=== PATIENT | female | born 1950 | race Caucasian/White ===

== ENCOUNTER 2022-03-22 11:00 | Outpatient (RCR) | payer MEDICARE, BC, SELFPAY ==
--- NOTE | 2021-11-30 17:08 | PT.OPEX ---
PT [place] Outpatient Eval PT [facility] Outpatient Eval Start: 11/30/21 12:18 Freq: Status: Active Protocol: Document 11/30/21 12:21 WILEY (Rec: 11/30/21 17:05 WILEY [id number]) E-Signed By Christina Ritchie, PT Physical Therapy Outpatient Evaluation Insurance Information Recert Due Date 02/28/22 Insurance Name Medicare B,Other; See Comments Insurance Information/Comments Blue [employer] [place] Medical Diagnosis Spinal stenosis, right thigh radiculitis Treating Diagnosis Low back pain, right sided radiculopathy, impaired gait, impaired balance, proximal hip and core weakness, limited lumbar mobility Referring Lopez Cortes Subjective Subjective Patient presents to PT with primary complaint of low back pain with associated R sided radiculopathy that began about 2 years ago with insidious onset. Initially felt pain in low back and lateral R thigh that was debilitating enough to where she was having difficulty walking. She was seen by PT at the time which significantly helped to alleviate R leg pain. Pain has since returned and has been seen by Dr. Garcia who prescribed 2 rounds of steroid medication. Both times have helped but still somewhat painful in low back and posterior/lateral R thigh. She also is taking gabapentin 3 x /day and tylenol prn every 4 hours. She occasionally uses walking sticks when she feels her balance is off. Currently most painful with standing and walking, most alleviating with sitting and sleeping. She has fallen 2 times in the past month and unsure of mechanisms of falls as they happen very quickly. The last fall she did hit right side of her face however did not lose consciousness. She was evaluated by her friend that is a nurse following this incident. She has since been recovering well from this and is very cautious when moving around/using her walking sticks. Currently denies head pain/headache, blurry or loss of vision. Goals are to improve low back and associated R LE pain as well as improve overall strength and balance to improve walking . PMH: a-fib treated with ablation Apr 2021, hypertension, skin cancer, arthritis, osteoporosis, anxiety Pain Comments Today: Date of Last Physician Visit 11/23/21 Current Work Status Retired Precautions Therapy Limitations/Systems Review Not Limited Objective Other/Pertinent Objective Lumbar ROM: -Flx: mid uriostegui, very slow to perform not because of pain but balance, no observable loss of balance todya -Ext: 15% -R Rot: 75% no pain -L Rot: 75% no pain -R Sidebend: 3/4 thigh, pinch/ pain with R SB -L Sidebend: 3/4 thigh no pain Standing posture: resting on Y ligaments with posterior pelvic tilt Sitting posture: posterior pelvic tilt Gait: significant R Trendelenburg, mid foot strike B, neutral hip extension B, very wide NAYAN with turning, slow van SL balance: unable to perform without UE support, R>L Trendelenburg stance TA activation: fair hooklying, poor sitting LE Strength (R/L): -Hip Abd: R: 3/5, L: 3+/5 -Hip Ext: R: 3+/5, L: 4-/5 -Hip Flx: R: 4-/5, L: 4-/5 Hip ROM WNL B Flexion positioning/knee to chest stretching relieving Functional Test Performed & Score Oswestry: 17, 34% Assessment Assessment/Impression Patient is a 71 year old female presenting to physical therapy for evaluation and treatment of low back pain with right sided radiculopathy with referring diagnosis of spinal stenosis. Patient presents with Low back pain, right sided radiculopathy, impaired gait, impaired balance, proximal hip and core weakness, limited lumbar mobility, limited terminal hip extension. These impairments are limiting the patients ability to walk on even and uneven ground, lift household objects, balance, stand for extended periods. Patient appears to demonstrate flexion based preference Patient appears motivated to participate in PT and presents with good prognosis to improve mobility, strength, proprioception and return to functional activities with skilled physical therapy intervention. Primary Functional Limitations walk on even and uneven ground , lift household objects, balance, stand for extended periods Plan of Care Rehabilitation Potential Good Physical Therapy Goals In 4 weeks (12/28/21) Patient will demonstrate WFL lumbar AROM with <2/10 pain in all directions in order to demonstrate improved functional mobility. Patient will walk for 20 min, reporting pain < 2/10 in order to ambulate in home and in community. Pt will be able to stand for 15 min with <2/10 pain in order to cook In 10 weeks (02/08/22) Pt will exhibit 20% improvement on the Modified Oswestry Outcome measure to demonstrate functional improvement and progress towards goals. Patient will walk for 40 min, reporting pain < 2/10 in order to ambulate in home and in community. 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
--- NOTE | 2022-01-17 11:55 | PT.OPDNX ---
PT [place] Outpatient Daily Note PT [facility] Outpatient Daily Note Start: 11/30/21 12:18 Freq: Status: Active Protocol: Document 01/17/22 07:47 WILEY (Rec: 01/17/22 07:47 WILEY [id number]) E-signed By Christina Ritchie, PT PT OP Daily Progress Note Visit Information Note Type Recert/Progress Note Visit Number [phone] Insurance Authorized Visits - Physician Authorized Visits 2 session for 6 weeks with additional 1 session per week for 4-6 weeks Insurance Information Recert Due Date 03/21/22 Insurance Name Medicare B,Other; See Comments Insurance Information/Comments [employer] [place] Medical Diagnosis Spinal stenosis, right thigh radiculitis Treating Diagnosis Low back pain, right sided radiculopathy, impaired gait, impaired balance, proximal hip and core weakness, limited lumbar mobility Referring MD Garcia, Lopez Graham had follow up with Dr. Garcia today which went very well and pleased with overall recovery. She feels that she is about 40% better with more stability on her feet and being able to stand for more extended periods of time ( about 30 minutes at the most). She was able to walk 6 blocks with her dogs without use of walking stick. Dr. Garcia recommended patient continue with PT for an additional 1x/ wk for 4-6 weeks beyond what she currently has scheduled. She also continues to be consistent with walking and water aerobics classes. Pain Comments Today: 2-07/29 Objective Other/Pertinent Objective 01/17/22: LE Strength (R/L): -Hip Abd: R: 4-/5, L: 4/5 Tandem balance: -6 sec R LE fwd -13 sec L LE fwd SL balance: unable without UE support Gait with head turns: slower van and more shuffled pattern however no use of UE or LOB noted Gait with change in speed: more difficult to walk slowly however crossover gait noted with fast pace 01/06/22: Gait: reduction of trendelenburg on R LE Tandem balance: -18 sec R LE fwd -13 sec L LE fwd SL balance: unable without UE support IE Lumbar ROM: -Flx: mid uriostegui, very slow to perform not because of pain but balance, no observable loss of balance todya -Ext: 15% -R Rot: 75% no pain -L Rot: 75% no pain -R Sidebend: 3/4 thigh, pinch/ pain with R SB -L Sidebend: 3/4 thigh no pain Standing posture: resting on Y ligaments with posterior pelvic tilt Sitting posture: posterior pelvic tilt Gait: significant R Trendelenburg, mid foot strike B, neutral hip extension B, very wide NAYAN with turning, slow van SL balance: unable to perform without UE support, R>L Trendelenburg stance TA activation: fair hooklying, poor sitting LE Strength (R/L): -Hip Abd: R: 3/5, L: 3+/5 -Hip Ext: R: 3+/5, L: 4-/5 -Hip Flx: R: 4-/5, L: 4-/5 Hip ROM WNL B Flexion positioning/knee to chest stretching relieving Functional Test Performed & Score Oswestry IE: 17, 34% Oswestry 01/17: 13, 26% Patient Instructed in Risks/Benefits Yes: N/A Therapeutic Exercise Therapeutic Exercise Minutes (minutes) 26 Therapeutic Exercise: To Restore Sidelying hip abduction x10 B Functional Status Bridge 2x10 Sit to stand w/yellow TB above knees Therapist handheld assist: lateral stepping w/yellow TB, minimal assistance required today ll bars: tandem balance Marches w/opp hand opp knee taps Review of objective measures, progress to date and remaining impairments Gait & Stair Training Gait Training/Stairs Minutes (minutes) 15 Gait & Stair Training Comments ll bars: fwd walking with head turns, bwd walking with cuing on fwd lean to prevent retro LOB Gait training x450' without AD : -head turns R/L -head turns up/down -change in speed Cuing required to brass pickler feet during change in speed, heel to toe patterning and to prevent crossover gait patterning Patient fatigued by end however recovers with <2 min seated rest break Treatment Minutes Timed Code Treatment Minutes 41 Total Treatment Time 41 Billing Units Gait Training/Stairs Units 1 Therapeutic Exercise Units 2 Assessment/Impression Assessment/Impression Patient reporting significant improvement in function with report of about 40% improvement and improvement on Oswestry from 17 to 13 since initiating PT. She has been able to wean off walking stick , stand for about 30 minutes, and walk up to 6 blocks prior to seated rest break. She does not demonstrate significant gait deviations with level walking as she did initially however still finding dynamic gait challenges to be difficult such as head turns and change in speed. She continues to remain appropriate for continued skilled PT to improve pain, balance and reduce fall risk as well as continue to improve functionally on Oswestry. Plan of Care Physical Therapy Goals In 4 weeks (12/28/21) Patient will demonstrate WFL lumbar AROM with <2/10 pain in all directions in order to demonstrate improved functional mobility. MET Patient will walk for 20 min, reporting pain < 2/10 in order to ambulate in home and in community. MET Pt will be able to stand for 15 min with <2/10 pain in order to cook MET In 10 weeks (02/08/22): goals updated to be met by 03/21/22 Pt will exhibit 20% improvement on the Modified Oswestry Outcome measure to demonstrate functional improvement and progress towards goals. (8% 01/17/22) Patient will walk for 40 min, reporting pain < 2/10 in order to ambulate in home and in community. 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 Static and dynamic balance deficits remain patients main impairments with testing today and remains appropriate for continued skilled PT for additional 1x/wk for 4-6 more weeks in order to reduce risk for falling Rehabilitation Potential Good Continued Plan of Care and Interventions Therapeutic exercise, neuromuscular re-education, gait training, therapeutic activity, manual therapy prn Provider Signature Shows Agreement With POC & Medical Necessity Physician Comment/Change Comment or Changes Physician NPI Number #
== END 2022-03-23 08:31 | disposition home or self-care (01) ==
PROVIDERS: PCP Family Medicine; Visit Provider Family Medicine
DX: M54.50 Low back pain, unspecified (principal); Z51.89 Encounter for other specified aftercare
CPT/HCPCS: 97032; 97110; 97112; 97116; 97140; 97162

== ENCOUNTER 2022-12-26 15:00 | Outpatient (RCR) | payer MEDICARE, BC, SELFPAY | END 2023-04-25 23:59 | disposition home or self-care (01) | PROVIDERS: PCP Family Medicine; Visit Provider Neurological Surgery | DX: M48.061 Spinal stenosis, lumbar region without neurogenic claudication (principal); M25.562 Pain in left knee; S82.102A Unspecified fracture of upper end of left tibia, initial encounter for closed fracture; R26.89 Other abnormalities of gait and mobility; R53.1 Weakness; Z51.89 Encounter for other specified aftercare | CPT/HCPCS: 97110; 97162 ==

== ENCOUNTER 2023-03-20 11:30 | Outpatient (RCR) | payer MEDICARE, BC, SELFPAY ==
--- NOTE | 2023-01-27 16:55 | PT.OPEX ---
PT [place] Outpatient Eval PT [facility] Outpatient Eval Start: 01/27/23 16:33 Freq: Status: Active Protocol: Document 01/27/23 16:33 LUIS (Rec: 01/27/23 16:52 LUIS [id number]) E-signed By Kiana Chacon DPT Physical Therapy Outpatient Evaluation Insurance Information Recert Due Date 04/27/23 Insurance Name [employer] Medical Diagnosis L knee pain L tibial plateau fx Treating Diagnosis L knee pain, core/hip/glut/LE weakness, limping/antalgic gait Subjective Subjective Patient reports falling on at the store. She was able to get back up and continue her activities but reports having L knee pain. She had a family wedding that weekend and a vacation the next week so she continued with her events but reports ongoing L knee pain and some difficulty walking. She had follow up with ortho PA on 12/26 and xrays showed a tibial plateau fx. Patient reports using crutches for a couple of days and then doing better getting around at home without an AD. She continued to use the crutches for a bit when going out. She followed up with ortho PA 01/11 and reports decreased pain, improved mobility/gait. She is now able to walk without an AD, minimal pain. Pain range 0-2/ 10. She reports xrays 01/11 showed bone healing in the area of the tibial plateau fx and L knee OA. Patient states PA talked to her about possibly needing TKA at some point. Patient states she can continue with her normal activities as tolerated. She does not want to pursue a TKA at this time as her knee is feeling better, she recently has lumbar spinal fusion ( earlier this year), and she is having some cardiac testing with upcoming appts for additional cardiac workup. She is using tylenol as needed for pain. Hasn't been needing ice/heat. Sleep has been ok. She is doing some of her HEP from prior back PT and planning to get back into the pool exercises next week. Date of Last Physician Visit 01/11/23 Current Work Status Retired Precautions Treatment Precautions/Contraindications hx lumbar spinal fusion, osteoporosis, OA, HTN, heart condition, depression Assessment Assessment/Impression Patient is a 72 year old female with L knee pain, core/ hip/glut/LE weakness, limping/ antalgic gait. She reports having a fall 7/27 with L tibial plateau fx. Patient had follow up with ortho PA with xrays that showed healing. She denies any current restrictions, activity as tolerated. Patient reports xrays showed L knee OA and she may need a TKA in the future. Pain range 0-2/10. Patient with core/hip/glut/LE weakness with hx of lumbar spinal fusion earlier this year. She is doing some of her HEP from prior PT for her back. She is amb without an AD. Gait is slow, limping secondary to weakness. Patient reports being able to amb now without crutches or her walking stick so gait is improving. R knee ROM 0-0-140 degrees. L knee ROM 0-0-135 degrees. Patient with L quad weakness, bilateral hip weakness R>L, general core/ glut/LE weakness. She would benefit from skilled PT for pain/sx management, improved core/hip/glut/LE strength, improved gait, balance/ proprioception training, and establishment of HEP. Plan of Care Rehabilitation Potential Good Physical Therapy Goals 1. Decrease/maintain L knee pain at less than/equal to 3/ 10 with daily activities and with the progression of PT activities over the next 4-6 weeks. 2. Improve core/hip/glut/LE strength over the next 10-12 weeks for improved gait, improved tolerance for extended standing/walking, return to housework/yard work/workouts without flare up of L knee pain per PLF. 3. Improve balance/ proprioception over the next 8 -10 weeks for improved stability with static/dynamic activities , improved gait, and improved safety with amb without an AD. 4. Patient will be I with HEP within 12 weeks for progression toward above goals, ongoing self management of pain/sx, ongoing self improvements in core/hip/glut/LE strength, and for return to PLF including extended standing/walking/housework/ yard work/workouts without flare up of pain. Coordination/Communication With Referral Source Treatment Plan/Direct Interventions Gait Training,Therapeutic Exercises Frequency/Duration 1x/week Patient Will Be Discharged From Therapy Completion of LTG(s),Skills Plateau,Independent w/HEP, Independently Progressing Evaluation Billing Untimed Code Treatment Minutes 22 Complexity Moderate Certification Information Initial Certification Date 01/27/23 Ending Certification Date 04/27/23 Provider Signature Shows Agreement With POC & Medical Necessity Physician Signature & Date Requested Please Sign/Date Here Physician Comment/Change : Physician NPI Number #
== END 2023-06-05 15:37 | disposition home or self-care (01) ==
PROVIDERS: PCP Family Medicine; Visit Provider Physician Assistant
DX: M25.562 Pain in left knee (principal); S82.142D Displaced bicondylar fracture of left tibia, subsequent encounter for closed fracture with routine healing; Z51.89 Encounter for other specified aftercare
CPT/HCPCS: 97110; 97162

== ENCOUNTER 2023-06-23 11:41 | Outpatient (CLI) | payer MEDICARE, BC, SELFPAY | END 2023-06-23 11:42 | disposition home or self-care (01) | LOC: AMB 06-24 08:40 | PROVIDERS: PCP Family Medicine; Visit Provider Family Medicine | DX: I95.9 Hypotension, unspecified (principal); R42 Dizziness and giddiness; R53.1 Weakness | CPT/HCPCS: A0425; A0427 ==

== ENCOUNTER 2023-06-23 12:08 | Emergency (ER) | payer MEDICARE, BC, SELFPAY ==
[2023-06-23] VITALS (31 sets, daily range): BP systolic 95–131; BP diastolic 68–95; PULSE 73–95; RESP 16–20; TEMP 36.2–36.6; O2SAT 88–98; BMI 23.4
--- NOTE | 2023-06-23 13:12 | ED_ITS ---
HPI - General Adult General Chief complaint: Hypotension Stated complaint: Hypotension Time Seen by Provider: 06/23/23 12:16 Source: patient Mode of arrival: EMS Limitations: no limitations History of Present Illness HPI narrative: 73-year-old female presents to the ER via EMS secondary to low blood pressures. Patient went to the clinic this morning to have blood work done, when she began to feel lightheaded and started seeing spots. She was evaluated by the nurse who checked her blood pressure when it was 80s systolic. Ambulance was called and patient was brought to the ER for further management. 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 She felt nauseated for most of the morning yesterday and vomited few times. States that she did not eat yesterday. In the afternoon she felt much better. She did not take her blood pressure medication yesterday but did take her blood pressure medication this morning. Does state that for couple of days now she has had multiple loose stools daily. This morning she was not feeling nauseated has not had any vomiting. States that the bleeding has slowed down considerably. She is not dizzy or lightheaded at this time. She is on a blood thinner- Xarelto. By the time she arrives to the ER she has received approximately 300 mL of normal saline and systolic blood pressure is 101. Related Data Home Medications Medication Instructions Recorded Confirmed acetaminophen 325 mg capsule 325 mg PO PRN 01/17/22 01/11/23 allopurinol 300 mg tablet 150 mg PO DAILY 01/17/22 01/11/23 atorvastatin 20 mg tablet 20 mg PO DAILY 01/17/22 01/11/23 bupropion HCl 150 mg 24 hr tablet, 150 mg PO DAILY 01/17/22 01/11/23 extended release lisinopril 2.5 mg tablet 2.5 mg PO DAILY 01/17/22 01/11/23 omeprazole 20 mg capsule,delayed 20 mg PO DAILY 01/17/22 01/11/23 release rivaroxaban 20 mg tablet (Xarelto) 20 mg PO 01/17/22 01/11/23 carvedilol 12.5 mg tablet 25 mg PO BID 12/26/22 01/11/23 furosemide 20 mg tablet (Lasix) 20 mg PO QAM 12/26/22 01/11/23 gabapentin 300 mg capsule 300 mg PO BID PRN 12/26/22 01/11/23 spironolactone 25 mg tablet 12.5 mg PO DAILY 12/26/22 01/11/23 Previous Rx's Medication Instructions Recorded potassium chloride 20 mEq 20 meq PO DAILY #2 tabs 06/23/23 tablet,extended release Allergies Allergy/AdvReac Type Severity Reaction Status Date / Time No Known Allergies Allergy Unknown Unverified 01/11/23 12:54 Review of Systems Status of ROS: Reports: 10 or more systems reviewed and unremarkable except as noted in History and below [facility] Medical History Alcohol use ?Z78.9 - Other specified health status (ICD-10) Anxiety ?F41.9 - Anxiety disorder, unspecified (ICD-10) Anemia ?D64.9 - Anemia, unspecified (ICD-10) Skin cancer ?C44.90 - Unspecified malignant neoplasm of skin, unspecified (ICD-10) Neck pain ?M54.2 - Cervicalgia (ICD-10) High cholesterol ?E78.00 - Pure hypercholesterolemia, unspecified (ICD-10) Hypertension ?I10 - Essential (primary) hypertension (ICD-10) History of atrial fibrillation ?Z86.79 - Personal history of other diseases of the circulatory system (ICD- 10) Surgical History History of lumbar surgery ?Z98.890 - Other specified postprocedural states (ICD-10) History of appendectomy ?Z90.49 - Acquired absence of other specified parts of digestive tract (ICD- 10) History of bunionectomy ?Z98.890 - Other specified postprocedural states (ICD-10) H/O section ?Z98.891 - History of uterine scar from previous surgery (ICD-10) Family History Other Breast cancer Social History Smoking Status: Former smoker Do you use any of these nicotine containing products: None Second hand tobacco smoke exposure: No How often do you have a drink containing alcohol: never How often do you have six or more drinks on one occasion: Never AUDIT-C Alcohol total score: 0 Non-prescribed substance use: denies use service: No Exam Narrative: Exam Narrative: Well-nourished well-developed patient in no acute distress. Alert and oriented. Answers questions appropriately. Mood and affect are appropriate. Thoughts are goal oriented and rational. No tangential or magical thinking noted. Patient speaks in full sentences without needing to catch her breath. HEENT: Normocephalic atraumatic. Pupils are equally round reactive to light. Extraocular muscles are intact. Conjunctivae are moist without any icterus noted. Moist mucous membranes. Cardiovascular: Heart is regular rate and rhythm. Lungs: Clear to auscultation bilaterally no wheezes rhonchi or rales are appreciated. Patient takes deep breaths without any discomfort. Abdomen: Soft and nontender nondistended with normal bowel sounds. Extremities: Bilateral lower extremities are without edema. Normal DP and PT pulses. Patient has a circular wound on the anterior left uriostegui, about the size of a quarter. Not currently bleeding. Skin: Well perfused. Const: Vital Signs, click to edit/add: Vital Signs - 24 hr 06/23/23 12:17 06/23/23 12:22 06/23/23 12:45 Temperature 97.1 F L 97.8 F Pulse Rate Pulse Rate [Pulse Oximeter] 83 73 Respiratory Rate 16 20 Blood Pressure Blood Pressure [Ri ght Upper Arm] 103/68 101/73 Pulse Oximetry 95 96 92 Oxygen Delivery Me od Room Air Room Air 06/23/23 14:54 06/23/23 15:19 06/23/23 15:20 Temperature Pulse Rate 84 84 Pulse Rate [Pulse Oximeter] Respiratory Rate Blood Pressure 120/79 109/78 Blood Pressure [Ri ght Upper Arm] Pulse Oximetry 96 94 [facility] 15:25 06/23/23 15:30 06/23/23 15:35 Temperature Pulse Rate 91 85 92 Pulse Rate [Pulse Oximeter] Respiratory Rate Blood Pressure 121/91 H 114/77 Blood Pressure [Ri ght Upper Arm] Pulse Oximetry 97 88 97 [facility] 06[facility]23/23 15:44 06/23/23 15:45 06/23/23 15:54 Temperature Pulse Rate 83 89 92 Pulse Rate [Pulse Oximeter] Respiratory Rate Blood Pressure 112/76 109/75 Blood Pressure [Ri ght Upper Arm] Pulse Oximetry 95 97 93 Oxygen Delivery Me thod 06/23/23 16:00 06/23/23 16:04 06/23/23 16:15 Temperature Pulse Rate 91 89 88 Pulse Rate [Pulse Oximeter] Respiratory Rate Blood Pressure 95/72 Blood Pressure [Ri ght Upper Arm] Pulse Oximetry 94 94 94 Oxygen Delivery Me thod 06/23/23 16:30 06/23/23 16:35 06/23/23 16:44 Temperature Pulse Rate 88 91 87 Pulse Rate [Pulse Oximeter] Respiratory Rate Blood Pressure 102/75 118/83 Blood Pressure [Ri ght Upper Arm] Pulse Oximetry 96 96 96 Oxygen Delivery Me thod 06/23/23 16:44 06/23/23 16:45 06/23/23 16:54 Temperature Pulse Rate 87 87 90 Pulse Rate [Pulse Oximeter] Respiratory Rate Blood Pressure 118/83 119/95 H Blood Pressure [Ri ght Upper Arm] Pulse Oximetry 96 94 98 Oxygen Delivery Me thod 06/23/23 17:00 Temperature Pulse Rate 92 Pulse Rate [Pulse Oximeter] Respiratory Rate Blood Pressure Blood Pressure [Ri ght Upper Arm] Pulse Oximetry 94 Oxygen Delivery Me thod Course Course ED Course: IV fluids worse given for a total of 1.5 L. CBC showed thrombocytopenia, hemoglobin 10.9. A troponin was 0. EKG, read by me, shows normal sinus rhythm with a first-degree AV block, pulse 87. Chemistry showed mild hyponatremia 132, hypokalemia at 2.8. Forty mEq potassium chloride given orally. Lactate 1.9, LFTs showing slightly elevated total bili at 1.7, normal direct b ilirubin. CRP elevated at 18.7. Urinalysis unremarkable. The patient did have 1 bowel movement while she was here. C diff was done and was negative. Blood pressure did respond to fluid hydration. Vital Signs Vital signs: Initial Vital Signs Temperature 97.1 F L 06/23/23 12:17 Temperature Source Temporal Artery Scan 06/23/23 12:17 Pulse Rate 83 06/23/23 12:17 Respiratory Rate 16 06/23/23 12:17 Blood Pressure 103/68 06/23/23 12:17 Blood Pressure Mean 79 06/23/23 12:17 Blood Pressure Position Supine 06/23/23 12:17 Pulse Oximetry 95 06/23/23 12:17 Oxygen Delivery Method Room Air 06/23/23 12:17 Vital Signs Temperature 97.1 F L 06/23/23 12:17 Pulse Rate 83 06/23/23 12:17 Respiratory Rate 16 06/23/23 12:17 Blood Pressure 103/68 06/23/23 12:17 Pulse Oximetry 95 06/23/23 12:17 Oxygen Delivery Method Room Air 06/23/23 12:17 Temperature 97.8 F 06/23/23 12:22 Pulse Rate 92 06/23/23 17:00 Respiratory Rate 20 06/23/23 12:22 Blood Pressure 119/95 H 06/23/23 16:54 Pulse Oximetry 94 06/23/23 17:00 Oxygen Delivery Method Room Air 06/23/23 12:22 Medications Administered Medications: Discontinued Medications Generic Name Dose Route Start Last Admin Trade Name Freq PRN Reason Stop Dose Admin Sodium Chloride 1,000 mls @ 1,000 mls/hr 06/23/23 15:00 06/23/23 15:20 0.9 % Sodium Chloride 1000 Ml IV 06/23/23 15:59 1,000 mls/hr .Q1H TAISHA Administration Potassium Chloride 40 meq 06/23/23 13:39 06/23/23 13:53 Potassium Chloride 10 Meq Capsule Er PO 06/23/23 13:40 40 meq ONCE ONE Administration Medical Decision Making MDM Narrative Medical decision making narrative: 73-year-old female with vomiting, diarrhea, hypotension dehydration. Blood pressure responded to fluid hydration. At this time, recommend stopping furosemide and lisinopril for a couple of days and cutting the carvedilol in half. Follow-up with primary care provider on Monday. Hypokalemia-will treat with oral potassium over the weekend. Also discussed having a low threshold to return to the ER. Medical Records Medical records reviewed: Yes I reviewed the patient's medical records Lab Data Lab results reviewed: Yes I reviewed the patient's lab results Labs: Lab Results 06/23/23 06/23/23 06/23/23 Range/Units 12:45 12:46 12:46 WBC 7.62 (4.50-11.00) K/uL RBC 3.23 L (4.00-5.20) m/uL Hgb 10.9 L (12.0-16.0) gm/dL Hct 32.4 L (33.0-51.0) % MCV 100 (80-100) fL MCH 34 (26-34) pg MCHC 34 (32-36) gm/dL RDW Coeff of Rajesh 14.4 (11.5-15.5) % Plt Count 75 L (140-440) K/uL Neut % (Auto) 94.2 H (42.0-72.0) % Lymph % (Auto) 1.4 L (20-44) % [place] % (Auto) 3.1 (0.0-11.0) % Eos % (Auto) 0.5 (0.0-7.0) % Baso % (Auto) 0.1 (0.0-3.0) % Neut # (Auto) 7.20 H (1.7-7.0) K/uL Lymph # (Auto) 0.10 L (0.90-2.90) K/uL [place] # (Auto) 0.20 (0.00-0.90) K/UL Eos # (Auto) 0.04 (0.00-0.50) K/uL Baso # (Auto) 0.01 (0.00-0.30) K/uL Abs Immat Gran (auto) 0.05 (0.00-0.30) K/uL Imm/Tot Granulo (auto) 0.7 % Sodium 132 L (135-149) mmol/L Potassium 2.8 L* (3.6-5.1) mmol/L Chloride 93 L (96-114) mmol/L Carbon Dioxide 27 (20-32) mmol/L Anion Gap 12 (7-15) mEq/L BUN 26 (7-30) mg/dL Creatinine 0.8 (0.5-1.5) mg/dL Estimated Creat Clear 41.45 Estimated GFR 78 ml/min Glucose 141 H (60-115) mg/dL Lactate (0.5-1.9) mmol/L Calcium 8.4 (8.4-10.6) mg/dL Total Bilirubin 1.7 H (0.1-1.5) mg/dL Direct Bilirubin 0.1 (0.0-0.5) mg/dL AST 37 H (12-35) U/L ALT 21 (4-35) U/L Alkaline Phosphatase 34 L (40-150) U/L C-Reactive Protein 18.7 H Cancelled (0.5-1.0) mg/dL Total Protein 6.8 (6.0-8.3) g/dL Albumin 3.9 (3.3-5.0) g/dL Urine Color Cancelled Urine Appearance Cancelled Urine pH Cancelled Ur Specific [place] Cancelled Urine Protein Cancelled Urine Glucose (UA) Cancelled Urine Ketones Cancelled Urine Blood Cancelled Urine Nitrite Cancelled Urine Bilirubin Cancelled Urine Urobilinogen Cancelled Ur Leukocyte Esterase Cancelled Urine RBC Cancelled Urine WBC Cancelled Urine WBC Clumps Cancelled Ur Squamous Epith Cells Cancelled [place] Biurate Crystals Cancelled Calcium Carbonate Cryst Cancelled Calcium Phosphate Cryst Cancelled Calcium Oxalate Crystal Cancelled Cystine Crystals Cancelled Uric Acid Crystals Cancelled Triple Phos Crystals Cancelled Sulfur Crystals Cancelled Cholesterol Crystals Cancelled Tyrosine Crystals Cancelled Hippuric Acid Crystals Cancelled Amorphous Sediment Cancelled Other Sediment Cancelled Urine Bacteria Cancelled Fatty Casts Cancelled Hyaline Casts Cancelled Fine Granular Casts Cancelled Coarse Granular Casts Cancelled Waxy Casts Cancelled RBC Casts Cancelled WBC Casts Cancelled Other Casts Cancelled Urine Starch Cancelled Urine Mucus Cancelled Urine Trichomonas Cancelled Urine Yeast Cancelled POC Troponin I 0.00 L (0.01-0.04) ng/ml 06/23/23 06/23/23 Range/Units 15:15 15:31 WBC (4.50-11.00) K/uL RBC (4.00-5.20) m/uL Hgb (12.0-16.0) gm/dL Hct (33.0-51.0) % MCV (80-100) fL MCH (26-34) pg MCHC (32-36) gm/dL RDW Coeff of Rajesh (11.5-15.5) % Plt Count (140-440) K/uL Neut % (Auto) (42.0-72.0) % Lymph % (Auto) (20-44) % [place] % (Auto) (0.0-11.0) % Eos % (Auto) (0.0-7.0) % Baso % (Auto) (0.0-3.0) % Neut # (Auto) (1.7-7.0) K/uL Lymph # (Auto) (0.90-2.90) K/uL [place] # (Auto) (0.00-0.90) K/UL Eos # (Auto) (0.00-0.50) K/uL Baso # (Auto) (0.00-0.30) K/uL Abs Immat Gran (auto) (0.00-0.30) K/uL Imm/Tot Granulo (auto) % Sodium (135-149) mmol/L Potassium (3.6-5.1) mmol/L Chloride (96-114) mmol/L Carbon Dioxide (20-32) mmol/L Anion Gap (7-15) mEq/L BUN (7-30) mg/dL Creatinine (0.5-1.5) mg/dL Estimated Creat Clear Estimated GFR ml/min Glucose (60-115) mg/dL Lactate 1.9 (0.5-1.9) mmol/L Calcium (8.4-10.6) mg/dL Total Bilirubin (0.1-1.5) mg/dL Direct Bilirubin (0.0-0.5) mg/dL AST (12-35) U/L ALT (4-35) U/L Alkaline Phosphatase (40-150) U/L C-Reactive Protein (0.5-1.0) mg/dL Total Protein (6.0-8.3) g/dL Albumin (3.3-5.0) g/dL Urine Color Yellow Urine Appearance Clear Urine pH 6.5 Ur Specific [place] 1.015 Urine Protein 1+ A Urine Glucose (UA) Negative Urine Ketones Negative Urine Blood Negative Urine Nitrite Negative Urine Bilirubin 1+ A Urine Urobilinogen 0.2 Ur Leukocyte Esterase Negative Urine RBC 2-5 A Urine WBC 2-5 Urine WBC Clumps Ur Squamous Epith Cells Moderate A [place] Biurate Crystals Calcium Carbonate Cryst Calcium Phosphate Cryst Calcium Oxalate Crystal Cystine Crystals Uric Acid Crystals Triple Phos Crystals Sulfur Crystals Cholesterol Crystals Tyrosine Crystals Hippuric Acid Crystals Amorphous Sediment Other Sediment Urine Bacteria Few A Fatty Casts Hyaline Casts Fine Granular Casts Coarse Granular Casts Waxy Casts RBC Casts WBC Casts Other Casts Urine Starch Urine Mucus Urine Trichomonas Urine Yeast POC Troponin I (0.01-0.04) ng/ml ECG Data Attestation: I personally reviewed and interpreted this ECG as follows: Discharge Plan Discharge Clinical Impression: Diarrhea, Hypotension, Vomiting, Dehydration, Hypokalemia Patient Disposition: Home, Self-Care Condition: Improved Additional Instructions: Increase your fluid intake over the next few days. Because your blood pressure does remain low at this time recommend the followin. Stop your furosemide over the weekend. 2. Stop your lisinopril over the weekend. 3. Cut your carvedilol in half. 4. Take daily potassium, a prescription has been sent to your pharmacy. Follow-up with your primary care provider on Monday. If your symptoms worsen, you become lightheaded or develops fever, you should return to the ER. Prescriptions: New potassium chloride 20 mEq tablet extended release 20 meq PO DAILY Qty: 2 0RF No Action Xarelto 20 mg tablet 20 mg PO acetaminophen 325 mg capsule 325 mg PO PRN bupropion HCl 150 mg tablet extended release 24 hr 150 mg PO DAILY lisinopril 2.5 mg tablet 2.5 mg PO DAILY allopurinol 300 mg tablet 150 mg PO DAILY omeprazole 20 mg capsule,delayed release(DR/EC) 20 mg PO DAILY atorvastatin 20 mg tablet 20 mg PO DAILY spironolactone 25 mg tablet 12.5 mg PO DAILY gabapentin 300 mg capsule 300 mg PO BID PRN carvedilol 12.5 mg tablet 25 mg PO BID Rx Instructions: must administer with a meal/food furosemide [Lasix] 20 mg tablet 20 mg PO QAM Follow Up/Referrals: Christine Rodriguez MD [Primary Care Provider] - Stand Alone Forms: [employer] Info Instructions
[2023-06-23 13:15] LABS: Basophils Absolute Auto 0.01 K/uL (0.00-0.30); Basophils Percent Auto 0.1 % (0.0-3.0); Eosinophils Absolute Auto 0.04 K/uL (0.00-0.50); Eosinophils Percent Auto 0.5 % (0.0-7.0); Hematocrit 32.4 % (33.0-51.0); Hemoglobin* 10.9 gm/dL (12.0-16.0); Immature Granulocytes Abs Auto 0.05 K/uL (0.00-0.30); Immature Granulocytes Pct Auto 0.7 %; Lymphocytes Percent Auto 1.4 % (20-44); Mean Corpuscular HGB Conc 34 gm/dL (32-36); Mean Corpuscular Hemoglobin 34 pg (26-34); Mean Corpuscular Volume 100 fL (80-100); Monocytes Percent Auto 3.1 % (0.0-11.0); Neutrophils Percent Auto 94.2 % (42.0-72.0); Platelet Count* 75 K/uL (140-440); RDW Coefficient of Variation % 14.4 % (11.5-15.5); Red Blood Count 3.23 m/uL (4.00-5.20); White Blood Count* 7.62 K/uL (4.50-11.00)
[2023-06-23 13:19] LABS: Slide Review Reflex No
[2023-06-23 13:28] LABS: Chloride* 93 mmol/L (96-114); Sodium* 132 mmol/L (135-149)
[2023-06-23 13:31] LABS: Creatinine* 0.8 mg/dL (0.5-1.5); Est. Creatinine Clearance* 41.45; Estimated Glomerular Filt Rate 78 ml/min
[2023-06-23 13:32] LABS: Anion Gap 12 mEq/L (7-15); Blood Urea Nitrogen* 26 mg/dL (7-30); Carbon Dioxide* 27 mmol/L (20-32); Glucose* 141 mg/dL (60-115)
[2023-06-23 13:33] LABS: Calcium* 8.4 mg/dL (8.4-10.6)
[2023-06-23 13:36] LABS: Potassium* 2.8 mmol/L (3.6-5.1)
[2023-06-23 13:48] LABS: C Reactive Protein* 18.7 mg/dL (0.5-1.0)
[2023-06-23] MEDS: POTASSIUM CHLORIDE 10 MEQ CAPSULE ER 40 MEQ PO (13:53)
--- NOTE | 2023-06-23 14:17 | ED.NURSE ---
critical lab and informed Dr. Ho of this K 2.8
[2023-06-23 15:17] LABS: Lactate* 1.9 mmol/L (0.5-1.9)
[2023-06-23] MEDS: 0.9 % SODIUM CHLORIDE 1000 ml 1,000 ML IV (15:20)
[2023-06-23 16:09] LABS: Appearance Urine Clear (Clear); Bilirubin Urine 1+ (Negative); Blood Urine Negative (Negative); Color Urine Yellow (Yellow); Glucose Urine Negative (Negative); Ketones Urine Negative (Negative); Leukocyte Esterase Urine Negative (Negative); Nitrite Urine Negative (Negative); Protein Urine 1+ (Negative); Specific Gravity Urine 1.015 (1.000-1.030); Urobilinogen Urine 0.2 (0.2-1.0); pH Urine 6.5 (5.0-8.5)
[2023-06-23 16:24] LABS: Bacteria Urine Few; Squamous Epithelial Cell Urine Moderate (None-Few)
[2023-06-23 17:20] LABS: Albumin* 3.9 g/dL (3.3-5.0)
[2023-06-23 17:23] LABS: Alkaline Phosphatase* 34 U/L (40-150); Aspartate Amino Transferase* 37 U/L (12-35); Bilirubin Direct* 0.1 mg/dL (0.0-0.5); Bilirubin Total* 1.7 mg/dL (0.1-1.5); Total Protein* 6.8 g/dL (6.0-8.3)
[2023-06-23 17:24] LABS: Alanine Aminotransferase* 21 U/L (4-35)
[2023-06-23 18:46] LABS: CDIFFEPI 027 Presumptive Negative (Negative)
[2023-06-23 18:47] LABS: C.Difficile POSITIVE (Negative)
--- NOTE | 2023-06-23 19:44 | ED.NURSE ---
contacted pateint about c-diff + results. vancomyacin 125mg po QID x 10 days. script called into [facility] in [place].
== END 2023-06-23 18:56 | disposition home or self-care (01) ==
PROVIDERS: Emergency Provider Family Medicine; PCP Family Medicine
DX: A04.72 Enterocolitis due to Clostridium difficile, not specified as recurrent (principal); E86.0 Dehydration; E87.6 Hypokalemia; I95.9 Hypotension, unspecified; R11.10 Vomiting, unspecified
CPT/HCPCS: 36415; 80048; 80076; 81001; 83605; 84484; 85025; 86140; 87040; 87086; 87493; 93005; 94761; 99284; A9270; J7030

== ENCOUNTER 2023-09-29 10:56 | Outpatient (CLI) | payer MEDICARE, BC, SELFPAY ==
--- NOTE | 2023-09-29 11:15 | US_ITS ---
Patient: SUDHA HEDRICK Facility:?[facility] Patient ID:?[id number] Site Patient ID:?[id number] Site :?[id number] Study:?US-Extremity Right KENNEDY JAZMINNALLELY-09/29/2023 11:59:13 AM Ordering Physician:MICHELE MYLES Final Report: PROCEDURE PERFORMED: Right groin fluid collection aspiration PROCEDURE: Under ultrasound guidance, a 5-[place] Yueh needle was placed into the right groin fluid collection. 70 cc of serous colored fluid was aspirated. This essentially resolve the patient`s fluid collection. No immediate complications. Patient tolerated the procedure well. POST-PROCEDURE DIAGNOSIS: Status post right groin fluid collection aspiration MEDICATIONS GIVEN: Lidocaine for local anesthesia. SPECIMEN(S): A total of 70 cc of serous colored fluid was obtained and provided to the integration technician if micro/pathology is required for analysis. COMPLICATIONS: No complications. Patient tolerated the procedure well. Ultrasound was performed following the aspiration shows no signs of active hematoma, extravasation, bleeding. DRAINS: None. ESTIMATED BLOOD LOSS: Less than 10 cc. PHYSICIANS AND ASSISTANTS (if any): RIVER Alberto Please call with questions. RIVER Alberto ADDITIONAL COMMENTS: [place] Protocol A. Pre-procedure verification complete: Yes 1-relevant information / documentation available, reviewed and properly matched to the patient; 2-consent accurate and complete, 3-equipment and supplies available. B. Site marking complete: Yes Site marked if not in continuous attendance with patient. C. TIME OUT completed: Yes Time Out was conducted just prior to starting procedure to verify the eight required elements: 1-patient identity, 2-consent accurate and complete, 3- position, 4-correct side/site marked (if applicable), 5-procedure, 6-relevant images / results properly labeled and displayed (if applicable), 7-antibiotics / irrigation fluids (if applicable), 8-safety precautions. Dictated by Kennedy Dey MD @ 09/29/2023 12:09:08 PM Signed by:?Kennedy Dey MD @09/29/2023 12:09:08 PM (Electronic Signature)
== END 2023-09-29 10:57 | disposition home or self-care (01) ==
LOC: US 10:56
PROVIDERS: PCP Family Medicine; Visit Provider Family Medicine
DX: S30.1XXA Contusion of abdominal wall, initial encounter (principal)
CPT/HCPCS: 10005

== ENCOUNTER 2023-10-19 10:52 | Outpatient (CLI) | payer MEDICARE, BC, SELFPAY ==
--- NOTE | 2023-10-19 11:15 | US_ITS ---
Patient: SUDHA HEDRICK Facility:?[facility] Patient ID:?[id number] Site Patient ID:?[id number]. Site :?[id number] Study:?US-ST Neck Procedure FD TO READ-10/19/2023 11:43:35 AM Ordering Physician:Graham King Final Report: PROCEDURE PERFORMED: Right inguinal fluid collection aspiration Indications: Reaccumulation of fluid to the right groin following angioplasty procedure. PROCEDURE: Under ultrasound guidance, a 5-Bulgarian Yueh needle was placed into the fluid collection in the right inguinal fluid collection. Serosanguineous fluid was obtained. No immediate complications. Patient tolerated the procedure well. POST-PROCEDURE DIAGNOSIS: Status post right inguinal fluid collection aspiration MEDICATIONS GIVEN: Lidocaine for local anesthesia. SPECIMEN(S): A total of 65 cc of serosanguineous fluid obtained from the right inguinal/groin fluid collection. Specimens were not sent. COMPLICATIONS: None. DRAINS: None. ESTIMATED BLOOD LOSS: Less than 10 cc. PHYSICIANS AND ASSISTANTS (if any): RIVER Alberto Please call with questions. RIVER Alberto ADDITIONAL COMMENTS: Patient tolerated the procedure well. No complications. [place] Protocol A. Pre-procedure verification complete: Yes 1-relevant information / documentation available, reviewed and properly matched to the patient; 2-consent accurate and complete, 3-equipment and supplies available. B. Site marking complete: Yes Site marked if not in continuous attendance with patient. C. TIME OUT completed: Yes Time Out was conducted just prior to starting procedure to verify the eight required elements: 1-patient identity, 2-consent accurate and complete, 3- position, 4-correct side/site marked (if applicable), 5-procedure, 6-relevant images / results properly labeled and displayed (if applicable), 7-antibiotics / irrigation fluids (if applicable), 8-safety precautions. Dictated by Kennedy Dey MD @ 10/19/2023 11:47:36 AM Signed by:Venu Dey MD @10/19/2023 11:47:36 AM (Electronic Signature)
== END 2023-10-19 10:53 | disposition home or self-care (01) ==
LOC: US 10:53
PROVIDERS: PCP Family Medicine; Visit Provider Family Medicine
DX: S30.1XXD Contusion of abdominal wall, subsequent encounter (principal)
CPT/HCPCS: 10005

== ENCOUNTER 2024-04-15 06:16 | Day surgery (SDC) | payer MEDICARE, BC, SELFPAY ==
[2024-04-15 06:34] VITALS: BP 127/87; PULSE 86; RESP 18; TEMP 36.6; O2SAT 96; BMI 25.0
[2024-04-15] MEDS: SODIUM CHLORIDE 0.9 % (FLUSH) 10 ML SYRINGE IVF (06:38)
--- NOTE | 2024-04-15 07:20 | P.GSOP_ITS ---
Operative Note Date of procedure: 04/15/24 Pre-op diagnosis: 1. Symptomatic left inguinal hernia. Post-op diagnosis: 1. Indirect left inguinal hernia. Type of Procedure: 1. Open left inguinal hernia repair with mesh. Indications: 73-year-old female on Xarelto seen in clinic for evaluation of a left inguinal hernia. Patient stated that 1 month ago she noticed a bulge on the left side. This was most prominent when she was standing up. She denied pain at the bulge. Patient has a history of and ureteral reimplantation on the left side many years ago. Patient history was also significant for mitral valve repair and valvuloplasty in July of 2023. Patient had a history of stress-induced cardiomyopathy in 2020 but her ejection fraction improved to 55 % a year later. on clinical exam there is a well-healed scar and curvilinear suprapubic surgical scar on the left side from patient's ureteral reimplantatio n. With the patient standing up over the left medial inguinal canal there is a small reducible bulge consistent with left inguinal hernia. Patient also has a healing ecchymosis in the right inguinal canal from recent Watchman procedure. Given patient's clinical history, physical exam, and her comorbidities, an open left inguinal hernia repair with mesh was recommended. The procedure was discu ssed in detail. The risks associated procedure including infection, bleeding, injury to preperitoneal organs, and hernia recurrence were all discussed with the patient, and she agreed to proceed. Procedure Description: After discussing the risks and benefits of the procedure, the patient signed informed consent.? The operative site was marked and the patient was brought to the operating room and placed on the operating table in supine position.? Care was taken to pad the patient's pressure points.?? The patient was then sedated by anesthesia.?? The operative site was then prepped and draped in the usual sterile fashion.? A time-out was then performed. Surgical site was prepped and draped in sterile fashion. Site of the incision was marked with a marking pen and local anesthetic was injected. An oblique incision was made just above and medial to the left inguinal ligament. Subcutaneous tissue was dissected to external obliques. Moderate amount of scar tissue was encountered and it was difficult to delineate the muscle layers. Superficial subcutaneous vascular branches were clamped, divided and tied with 3-0 Vicryl ties. Small incision was made through the external oblique aponeurosis with scalpel. I then used Metzenbaum scissors to dissect under external obliques and extend my incision. Mosquito clamps were placed on the edges of external oblique exposing the inguinal floor. Scar tissue was encountered here as well. The left Ilioinguinal nerve was not clearly identified. The left round ligament was identified and divided with cautery. Proximal end of the round ligament was tied with Vicryl tie. I then identified the hernia sac which was adherent to the soft tissue overlying the left pubic tubercle. I bluntly dissected subcutaneous tissues around the hernia sac. Cautery was used for hemostasis. Preperitoneal fat was adherent to the hernia sac. This was dissected off the hernia sac was cautery and bluntly. The preperitoneal fat was clamped near the base of the hernia sac, excised with cautery and tied with Vicryl tie. The indirect hernia sac was incised and examined from the inside. No intraabdominal organs were incarcerated in the hernia sac. A stitch using 3-0 Vicryl was placed near the base of the hernia sac through the sac and the hernia sac tied off. Hernia sac was then excised and not sent to pathology. This was then pushed into preperitoneal space through the internal ring. Surgical field was examined for bleeding and no bleeding was seen. A Bard mesh onlay was also used for hernia repair. The mesh onlay was sutured in place with interrupted 0-0 Neurolon sutures to the conjoint tendon medially and shelving edge laterally, pubic tubercle inferiorly. External oblique aponeurosis was closed with a running 3-0 Vicryl. Additional local anesthetic was injected into subcutaneous tissues. Ananya's fascia and subcutaneous tissue was re-approximated with interrupted Vicryl stitches. Skin incision was closed with 4-0 Monocryl subcuticular stitch. Steri strips and sterile dressing were applied over incision. All counts were correct at the end of the case. Patient tolerated this procedure well and was transferred to same-day surgery in stable condition. Findings: Indirect hernia sac with no incarcerated intra-abdominal structures. Repaired with mesh. Implants: Bard mesh Anesthesia: MAC and local Surgeon: Cr Suarez MD Estimated blood loss (mL): 5 Condition: stable Disposition: same day
--- NOTE | 2024-04-15 07:20 | W.PM.H&PU ---
History & Physical Update History & Physical Update H&P Reviewed and patient assessed: No changes noted
[2024-04-15] MEDS: CEFAZOLIN 2 GM INJ IVP (07:39)
[2024-04-15] MEDS: LIDOCAINE 1%-EPI 1:100,000 20 ML INFILTRATI (08:30)
[2024-04-15] MEDS: BUPIVACAINE 0.25% 30 ML INJECTION (08:30)
[2024-04-15 08:55] VITALS: BP 121/82; PULSE 70; RESP 14; TEMP 36.4; O2SAT 100
--- NOTE | 2024-04-15 08:58 | P.ANES_ITS ---
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
[2024-04-15 09:00] VITALS: BP 123/80; PULSE 71; RESP 16; O2SAT 97
[2024-04-15 09:15] VITALS: BP 147/95; PULSE 73; RESP 16; O2SAT 96
[2024-04-15 09:30] VITALS: BP 145/92; PULSE 79; RESP 16; O2SAT 96
== END 2024-04-15 09:48 | disposition home or self-care (01) ==
PROVIDERS: PCP Family Medicine; Visit Provider Surgery
PROC: (CPT 49505; principal; 2024-04-15 07:30)
DX: K40.90 Unilateral inguinal hernia, without obstruction or gangrene, not specified as recurrent (principal)
CPT/HCPCS: 49505; 00830; 99100; C1781; J0665; J0690; J1100; J1885; J2405; J2704; J3010

== ENCOUNTER 2024-07-19 13:30 | Outpatient (RCR) | payer MEDICARE, BC, SELFPAY ==
--- OUTSIDE RECORDS SUMMARY | 2024-05-21 14:00 | XMS_ITS | Clinical Summary ---
Author Organization [facility] Address [place], [place] [address] Care Team Providers Care Peoplesoft Analyst Name Role Phone Christine Rodriguez MD Primary Care Provider Nelson Schwarz Unavailable [phone] Allergies No known active allergies Medications calcium carbonate (CALCIUM 300 ORAL) Take 1 Tablet by mouth once daily. Active magnesium oxide 400 mg magnesium tab Take 1 Tablet by mouth once daily. Active ferrous sulfate, 65 mg elemental, tablet Take 325 mg by mouth every Monday, Monday and Monday. Clarification : three times a week Active acetaminophen (TylenoL) 325 mg cap Take 500 mg by mouth every 8 hours if needed (back pain, other pain). 0 05/24/19 22 Active cholecalciferol (Vitamin D-3) 2,000 unit capsule Take 1 Capsule (2,000 units) by mouth once daily. 0 07/22/19 23 Active aspirin chewable 81 mg chewable tablet Chew 81 mg by mouth once daily with a meal. 08/10/19 24 Active multivitamin (MVI) tablet Take 1 Tablet by mouth once daily. 11/06/19 24 Active atorvastatin (LIPITOR) 20 mg tabletIndications: Hyperlipidemia, unspecified hyperlipidemia type TAKE 1 TABLET(20 MG) BY MOUTH EVERY DAY 90 Tablet 2 11/20/19 24 Active omeprazole (PRILOSEC) 20 mg Delayed-Release capsuleIndications :Gastroesophageal reflux disease, unspecified whether esophagitis present Take 1 Capsule (20 mg) by mouth once daily before a meal. 90 Capsule 2 11/20/19 24 Active gabapentin (NEURONTIN) 300 mg capsuleIndications :Radicular pain Take 1 Capsule (300 mg) by mouth four times daily. 300 MG four times daily 360 Capsule 3 01/08/20 24 Active lisinopriL (PRINIVIL; ZESTRIL) 5 mg tabletIndications: Primary hypertension,Nonis chemic cardiomyopathy (HC),Stress-induce d cardiomyopathy Take 1 Tablet (5 mg) by mouth two times daily. 180 Tablet 3 01/08/20 24 Active triamcinolone 0.1 % ointmentIndication s:Granuloma annulare Apply topically to affected area(s) 2 times daily if needed. 01/16/20 24 Active propafenone (RYTHMOL SR) 225 mg Sustained-Release capsuleIndications :Atrial tachycardia (HC) Take 1 Capsule (225 mg) by mouth every 12 hours. 02/13/20 24 Active carvediloL (COREG) 12.5 mg tabletIndications: Atrial flutter, unspecified type (HC) Take 2 Tablets (25 mg) by mouth two times daily with meals. 360 Tablet 02/16/20 24 Active buPROPion (WELLBUTRIN XL) 150 mg Extended-Release tabletIndications: Depression, recurrent (HC) Take 1 Tablet (150 mg) by mouth once daily in the morning. 90 Tablet 1 03/04/20 24 Active furosemide (LASIX) 20 mg tabletIndications: Primary hypertension,Biven tricular heart failure (HC) Take 1 Tablet (20 mg) by mouth once daily in the morning. 90 Tablet 03/07/20 24 Active potassium chloride (K-TAB) 10 mEq extended-release tabletIndications: Biventricular heart failure (HC) Take 1 Tablet (10 mEq) by mouth once daily with a meal. 90 Tablet 03/07/20 24 Active spironolactone (ALDACTONE) 25 mg tabletIndications: Mitral valve insufficiency, unspecified etiology,Paroxysma l atrial fibrillation (HC),Atrial flutter, unspecified type (HC) Take 0.5 Tablets (12.5 mg) by mouth once daily. 45 Tablet 04/04/20 24 Active HYDROcodone-acetam inophen (5-325 mg/tablet) Take 1 Tablet by mouth every 6 hours if needed. 04/15/20 24 Active erythromycin ophthalmic ointment 0.5%Indications:Ho rdeolum internum left lower eyelid Apply 1 Strip to left eye 6 times daily. 3.5 g 04/19/20 24 Active allopurinoL (ZYLOPRIM) 300 mg tabletIndications: Gout, unspecified cause, unspecified chronicity, unspecified site Take 0.5 Tablets (150 mg) by mouth once daily. 45 Tablet 2 05/17/20 24 Active clopidogreL (Plavix) 75 mg tabletIndications: PAF (paroxysmal atrial fibrillation) (HC),Presence of Watchman left atrial appendage closure device Take 1 Tablet (75 mg) by mouth once daily. 30 Tablet 05/20/2024 12:03 PM [employer] 05/20/20 24 Active clopidogreL (Plavix) 75 mg tabletIndications: PAF (paroxysmal atrial fibrillation) (HC),Presence of Watchman left atrial appendage closure device Take 1 Tablet (75 mg) by mouth once daily. 90 Tablet 05/20/20 24 Active allopurinoL (ZYLOPRIM) 300 mg tabletIndications: Gout, unspecified cause, unspecified chronicity, unspecified site Take 0.5 Tablets (150 mg) by mouth once daily. 45 Tablet 3 07/17/19 24 024 Discontin ued(*Avai lability/ Formulary change/Co st of medicatio n) rivaroxaban (Xarelto) 20 mg tabletIndications: Persistent atrial fibrillation (HC) Take 1 Tablet (20 mg) by mouth once daily with evening meal. 30 Tablet 11 03/28/20 24 024 Discontin ued(*Med complete/ Regimen complete/ Level of care change) Hospital, Clinic, or Other Facility Administered Medication Ordered Dose Route Frequency Start Date End Date Status cyanocobalamin (VITAMIN B12) 1,000 mcg/mL injection 1,000 mcgIndications:B12 deficiency 1000 mcg IM Q 4 WEEKS (28 days) 07/21/2023 06/21/2024 Active Active Problems Problem Noted Date Diagnosed Date Biventricular heart failure 06/30/2023 Nonischemic cardiomyopathy 07/21/2022 Depression, recurrent 05/29/2022 History of atrial fibrillation 06/02/2021 Atypical atrial flutter 05/06/2021 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/2021 Overview (05/06/2021): - 05/05/2021 EKG with T-wave inversion and new decrement in LVEF to 25% Prediabetes 06/05/2018 SCC (squamous cell carcinoma) 06/05/2017 Overview (01/21/2020): Left thumb x2 (radiation), back Persistent atrial fibrillation 08/03/2016 Overview (09/05/2018): - found to be in afib on 06/14/2016 - started on rate control and anticoagulation with Xarelto 20 mg daily *presents for DCCV 08/03/2016 - S/P atrial fibrillation/flutter and SVT ablation 09/04/2018 Hypertension 03/03/2015 Vitamin D deficiency 05/06/2011 Acute gastric ulcer without mention of hemorrhage, perforation, or obstruction 10/16/2009 Gout, unspecified 04/21/2009 Unspecified essential hypertension 08/23/2006 Cervicalgia 08/23/2006 Osteoarthrosis, unspecified whether generalized or localized, unspecified site 08/23/2006 Other and unspecified hyperlipidemia 08/23/2006 Right heart enlargement Paroxysmal atrial fibrillation Resolved Problems Problem Noted Date Diagnosed Date Resolved Date Pancytopenia 06/02/2021 06/30/2023 Thrombocytopenia, unspecified 06/02/2021 06/30/2023 Encounters Date Type Department Care Team Description 05/20/2024 10:30 AM [employer] Office Visit [facility] [address] [place] [address] Christa Tavarez MBBS CV General Cardiology Est (ECHO PRIOR /Post Watchman F/U (03/27/2024) //PCP:Christine Rodriguez MD/) 05/20/2024 7:30 AM [employer] - 05/20/2024 11:59 PM [employer] Hospital Encounter [facility] [address] [place] [address] Quan Soto MD Roemer, Sarah, RDCS, RVT Presence of Watchman left atrial appendage closure device; Paroxysmal atrial fibrillation (HC) 05/20/2024 Travel 05/16/2024 Travel 05/13/2024 Refill [facility] [address] [place] [address] Christine Rodriguez MD Refill Request (Allopurinol 300mg tablets) 05/07/2024 Telephone [facility] [address] [facility] [address] [place] [phone] Quan Soto MD Form 05/02/2024 1:00 PM [employer] Nurse/Clinic Staff Only [facility] [address] [place] [address] Immunization/Inject ion (B-12) 05/02/2024 Travel 04/29/2024 3:45 PM [employer] Office Visit [facility] [address] [place] [address] Cr Andrade MD Post-op (Open left inguinal hernia repair with mesh 04/15/24) 04/29/2024 Travel 04/26/2024 1:30 PM [employer] Telemedicine [facility] [address] [facility] [address] [place] [address] Alexandra Wilkes, [facility] Individual Therapy; Telehealth 04/25/2024 Travel 2024 2:00 PM [employer] Ancillary Procedure [facility] [address] [place] [address] 2024 Travel 04/19/2024 2:15 PM [employer] Office Visit [facility] [address] [place] [address] Rhiannon Tony, Eye Problem (left eye- Monday evening) 04/19/2024 Travel 04/17/2024 Travel 04/15/2024 6:00 AM [employer] Office Visit [facility] at [facility] [address] [place] [address] Cr Andrade MD Surgery Scheduled 04/15/2024 Orders Only [facility] Scanner 1 scan: (1-Ord) [facility], OPEN LT INGUINAL HERNIA REPAIR W/ MESH, 04/15/2024 04/11/2024 3:15 PM [employer] Telemedicine [facility] [address] [place] [address] Alexandra Wilkes [facility] Individual Therapy; Telehealth 04/11/2024 10:25 AM [employer] Office Visit [facility] [address] [place] [address] Yusra Goode, Pre-Op Exam (/PRE OP AND LABS ORDERED BY: Blessing Calixto MD Date of Surgical Procedure - 04/15/2024 Name of Procedure to be performed - OPEN INGUINAL HERNIA Facility where Procedure will be performed, including: [place] Performing Provider's Full name - DR CR ANDRADE Fax number for where Preoperative exam should be sent [phone] Any additional items performing facility requires completed during preoperative exam //) 04/11/2024 Travel 04/10/2024 Transcribe Orders Customer Experience [facility] [phone] Arianna Jeffries MD 04/06/2024 Travel 04/04/2024 3:15 PM [employer] Telemedicine [facility] [address] [place] [address] Alexandra Wilkes [facility] Individual Therapy; Telehealth 04/04/2024 1:00 PM [employer] Nurse/Clinic Staff Only [facility] [address] [place] [address] Immunization/Inject ion (VITAMIN B-12 INJECTION ) 04/04/2024 Travel 04/01/2024 1:00 PM [employer] Office Visit [facility] [address] [place] [address] Cr Andrade MD Consult (Left inguinal hernia referred by Dr. Rodriguez) 04/01/2024 Travel 04/01/2024 Refill [facility] [address] [place] [address] Blessing Calixto MD Refill Request (Spironolactone 25mg tablets ) 03/28/2024 3:15 PM [employer] Telemedicine [facility] [address] [place] [address] Alexandra Wilkes LICSW Individual Therapy; Telehealth 03/28/2024 Patient Outreach [facility] [address] [place] [address] Tiffani Menendez RN Primary RN Care Management; Hospital F/U (LACE 26/) 03/27/2024 8:37 AM [employer] Anesthesia Event [facility] [address] [place] [address] Fantasma Gonzalez MD 03/27/2024 6:35 AM [employer] - 03/27/2024 5:00 PM [employer] Hospital Encounter [facility] [address] [place] [address] Quan Soto MD Paroxysmal atrial fibrillation (HC) Discharge Disposition: Home Self Care 03/27/2024 Travel 03/22/2024 1:30 PM CDT Telemedicine [facility] [address] [place] [address] Alexandra Wilkes LICSW Individual Therapy; Telehealth 03/22/2024 Telephone [facility] [address] [facility] [address] [place] [address] Amalia Ball RN Pre Watchman Call 03/20/2024 1:10 PM CDT Office Visit [facility] [address] [place] [address] Christine Rodriguez MD Lum (In [facility] area) 03/20/2024 Telephone [facility] [address] [place] [address] Cr Andrade MD Appointment Request 03/20/2024 Travel 03/19/2024 Travel 03/18/2024 3:30 PM CDT Office Visit [facility] [id number] [place] [address] [address] [place] [address] Blessing Calixto MD Follow Up (RE-ESTABLISH CARE - MEDICATION MANAGEMENT/ECHO 02/15/EKG 02/20/HOLTER 02/05 /PT states feeling good. /no cardiac symptoms today /Having a procedure done next week ) 03/17/2024 Travel 03/15/2024 1:30 PM CDT Telemedicine [facility] [address] [place] [address] Alexandra Wilkes LENS MOLDER Telehealth; Family Therapy 03/15/2024 Travel 03/08/2024 1:30 PM CDT Telemedicine [facility] [address] [place] [address] Alexandra Wilkes LENS MOLDER Trmt Plan; Telehealth 03/07/2024 12:45 PM CDT Nurse/Clinic Staff Only [facility] [address] [place] [address] Immunization/Inject ion (VITAMIN B-12 INJECTION AND COVID-19 VACCINE ); Immunization/Inject ion 03/07/2024 Travel 03/03/2024 Travel 03/02/2024 Travel 02/29/2024 1:15 PM CDT Orders Only [facility] [address] [place] [address] Lab, Farm Lab 02/28/2024 Travel 02/27/2024 12:45 PM CDT Telemedicine [facility] [address] [facility] [address] [place] [address] Alexandra Wilkes LENS MOLDER Mental Health Intake; Telehealth 02/27/2024 11:20 AM CDT Ancillary Procedure [facility] [address] [place] [address] 02/27/2024 Travel 02/27/2024 Telephone [facility] [address] [place] [phone] Quan Soto MD Lab (Labs & BP update.) 02/26/2024 Travel 02/25/2024 Travel 02/23/2024 2:00 PM CDT Telemedicine [facility] [address] [place] [address] Irving Andersen MD 02/22/2024 Travel 02/20/2024 12:45 PM CDT Telemedicine [facility] [address] [place] [address] Alexandra Wilkes, [facility] Individual Therapy; Telehealth 02/19/2024 8:00 AM CDT Ancillary Procedure [facility] [address] [place] [address] from Last 3 Months Immunizations Name Administration Dates Next Due COVID-19 VACCINE SPIKEVAX (M ODERNA 50MCG/0.5ML) 12YO+ PFS 03/07/2024,08/21/2023 HepA-HepB (Twinrix) 01/17/2002,04/20/2001,2000 INFLUENZA, IIV3 PF (AGE >= 6 MO) 03/17/2015,01/20 Influenza A (H1N1), Inactiva diane (Age >=3 Years) 02/19/2009 Influenza, High-dose Inactivated 02/22/2018,03/23,03/15/2016 Influenza, IIV3 (Age 6-35 mos) 01/21/2020,2004 Influenza, IIV3 (Age >=3 years) 03/18/20 15,02/10/2014,03/15/2013,2011,02/04/2011,02/24/2010,04/27/2007,1 06/30/2005,03/07/2005,04/10/2003 Influenza, Inactivated AIIV4 (Age 65+ Years) Preserv Free 02/21/2023,02/09/2023,03/22/2022,2020 Influenza, Inactivated IIV3 (Age 65+ Years) Preserv Free 02/08/2024,02/06/2019 MMR 12/12/2019 Pneumococcal Poly,23-Valent (Pneumovax) 06/05/2017,03/14/2013 Pneumococcal conj 13-Valent (Prevnar 13) 07/28/2015 Td (Age >=7 Years) 01/31/1995 Td, Preservative Free (age > = 7 Years) 01/21/2005 Tdap 06/05/2017,09/25/2007 Typhoid (injectable) 03/09/2001 Zoster (Shingrix-RZV, recombinant) 12/14/2017, Zoster (Zostavax-ZVL, live) 07/09/2010 Family History Medical History Relation Name Comments Cancer Brother multiple myelom a Cancer-prostate Father Diabetes Maternal Grandmother Cancer Mother Lung Heart Disease Paternal Grandfather Cancer-breast Paternal Grandmother Anesthesia Problem No Family History Blood Disease No Family History Cancer-ovarian No Family History Relation Name Status Comments Brother Father Maternal Grandmother Mother lung cancer Paternal Grandfather (Age 70s) C AD Paternal Grandmother Social History Tobacco Use Types Packs/Day Years Used Date Smoking Tobacco: Former Cigarettes 0.5 5 0 09/08/1967 - 05/22/1972 Smokeless Tobacco: Never Tobacco Cessation:Counseling Given: Yes Alcohol Use Standard Drinks/Week Comments Not Currently 0 (1 standard drink = 0.6 oz pur e alcohol) Discontinued 12/2023 [facility] Utilities Answer Date Recorded Do you have trouble paying f or utilities (for example, heat, electricity, water, phone)? Yes 03/27/2024 PHQ-2 Answer Date Recorded PHQ-2 TOTAL SCORE 0 02/19/2024 Social Connections Answer Date Recorded Do you often feel lonely or isolated from those around you? 0 03/27/2024 Financial Resource Strain Answer Date R ecorded Difficulty of Paying Living Expenses 3 06/30/2023 Difficulty of Paying Living Expenses Not on file 06/30/2023 Food Insecurity Answer Date Recorded Do you worry your food will run out before you are able to buy more? 1 03/27/2024 Transportation Needs Answer Date Record ed Does lack of transportation keep you from medica l appointments? 1 03/27/2024 Does lack of transportation keep you from work, meetings or getting things that you need? 1 03/27/2024 Housing Stability Answer Date Recorded What is your housing situation today? 1 03/27/2024 Interpersonal Safety Answer Date Record ed Are you being hit, kicked, p ushed or yelled at (see row info)? 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 [employer] Not on file Not on file Not on file Travel History Travel Start Travel End [place] 05/06/2024 05/17/2024 Obstetrics History Para Term AB IAB SAB Ectopic Multiple Livin g Live Births 2 2 2 0 0 0 0 0 0 2 Date Outcome GA Total Labor Labor/2nd/3rd Weight Sex Type Anes PTL Edwina A1 A5 Name Clin Term Term Last Filed Vital Signs Vital Sign Reading Time Taken Comments Blood Pressure 169/105 05/20/2024 10:24 AM [employer] Pulse 75 05/20/2024 10:24 AM [employer] Temperature 36.5 C (97.7 F) 04/19/2024 2:36 PM [employer] Respiratory Rate 14 05/20/2024 8:50 AM [employer] Oxygen Saturation 97% 05/20/2024 10:24 AM [employer] Inhaled Oxygen Concentration - - Weight 63.5 kg (140 lb) 05/20/2024 10:24 AM [employer] Height 158.2 cm (5' 2.28) 04/11/2024 10:[address] Body Mass Index 25.37 04/11/2024 10:29 AM [employer] Plan of Treatment Upcoming Encounters Date Type Department Care Team (Late st Contact Info) Description 05/30/2024 1:00 PM [employer] Nurse/Clinic Staff Only [facility] [address] [place] [address] Health Maintenance Due Date Last Done Comments RSV vaccine for adults or (1 - Risk 60-74 years 1-dose series) 2010 Medicare Wellness for age 65+ 01/08/2025, 04/25/2022, 02/10/2021, Additional history exists Depression screening for age 12+ 02/19/2025 02/20/2024, 02/19/2024, 02/16/2024, Additional history exists Mammogram for age 45-75 02/26/2025 02/27/20, 11/10/2022, 06/14/2021, Additional history exists BMI (ht and wt on same day) for age 18+ 04/11/2025 04/11/2024, 03/18/2024, 01/16/2024, Additional history exists Lipids for age 45-75 04/25/2027 04/25/2022, 02/16/2021, 01/21/2020, Additional history exists Tetanus booster 06/05/2027 06/05/2017, 05/10/2007, 01/21/2005, Additional history exists Colonoscopy through age 75 11/16/2027 11/15/2017, Hepatitis C screening for ag e 18-79 Completed 07/28/2015 Pneumococcal series for age 50+ Completed 06/05/2017, 07/28/2015, 03/14/2013 Tdap Completed 06/05/2017, 09/25/2007 Zoster (shingles) series for age 50+ Completed 12/14/2017, 08/30/2017, 07/09/2010 Influenza for age 65+ Completed 02/08/2024 , 02/21/2023, 02/09/2023, Additional history exists COVID-19 vaccine series Completed 03/07/20, 08/21/2023, 03/22/2022, Additional history exists DEXA/DXA scan for age 65+ Completed 2023, 05/16/2022, 01/21/2020, Additional history exists Procedures Procedure Name Priority Date/Time Associated Diagnosis Comments ECHO VIJI WO CONTRAST W COLOR W LTD DOPPLER Routine 05/20/2024 8:57 AM [employer] Presence of Watchman left atrial appendage closure device Paroxysmal atrial fibrillation (HC) XR DXA BONE DENSITY 2 SITES AXIAL Routine 2024 2:18 PM [employer] Osteopenia Osteoarthritis SCAN-OPERATIVE/PROCED URE REPORT 04/15/2024 12:00 AM [employer] MAGNESIUM Routine 04/11/2024 11:02 AM [employer] Paroxysmal atrial fibrillation (HC) Atrial flutter, unspecified type (HC) CREATININE Routine 04/11/2024 11:02 AM [employer] Pre-op exam SCAN-CARDIAC STRIP 03/27/2024 4: 13 PM [employer] SCAN-CARDIAC STRIP 03/27/2024 2: 00 PM [employer] ECHO VIJI TRANSCATHETER INTRAOP PROCEDURE Routine 03/27/2024 1:25 PM [employer] Paroxysmal atrial fibrillation (HC) HCHG ACTIVATED CLOTTING TM CV Timed 03/27/2024 11:05 AM [employer] CV PROCEDURE TO BE PERFORMED Routine 03/27/2024 9:54 AM [employer] HCHG ACTIVATED CLOTTING TM CV Timed 03/27/2024 9:20 AM [employer] EP OTHER PROCEDURE Routine 03/27/2024 9: 06 AM [employer] ENDOTRACHEAL TUBE Routine 03/27/2024 9:0 4 AM [employer] ENDOTRACHEAL TUBE Routine 03/27/2024 9:0 4 AM [employer] HCHG KIT PR5 Routine 03/27/2024 7:30 AM [employer] HCHG DRSG PR5 Routine 03/27/2024 7:30 AM [employer] HCHG DRSG PR1 Routine 03/27/2024 7:30 AM [employer] HCHG TUBING PR20 Routine 03/27/2024 7:30 AM [employer] HCHG TUBING PR1 Routine 03/27/2024 7:30 AM [employer] HCHG ANES ARTERIAL CATH FOR SAMPLE MONITOR TRANS Routine 03/27/2024 7:30 AM [employer] HCHG ANES US GUIDE FOR VASC ACCESS Routine 03/27/2024 7:30 AM [employer] HCHG CATH PR5 Routine 03/27/2024 7:30 AM [employer] EKG 12 LEAD Preop 03/27/2024 7:05 AM [employer] EXTRA TUBE GOLD/SST Today 03/27/2024 7 :00 AM [employer] BASIC METABOLIC PANEL Preop 03/27/2024 7:00 AM [employer] CBC W PLT NO DIFF Preop 03/27/2024 7:0 0 AM [employer] BASIC METABOLIC PANEL Routine 02/29/2024 1:15 PM CDT Mitral valve insufficiency, unspecified etiology Paroxysmal atrial fibrillation (HC) Atrial flutter, unspecified type (HC) Primary hypertension Biventricular heart failure (HC) XR MAMMO TELMA BILAT SCREEN Routine 02/27/2024 11:32 AM CDT Visit for screening mammogram EKG 12 LEAD Routine 02/19/2024 8:47 AM CDT Paroxysmal atrial fibrillation (HC) ECHO TTE COMPLETE WO CONTRAST KOFFI 02/19/2024 8:39 AM CDT Mitral valve insufficiency, unspecified etiology LIPID PANEL W REFLEX MEASURED LDL Routine 04/25/2022 1:58 PM [employer] Hyperlipidemia, unspecified hyperlipidemia type SCAN-COLONOSCOPY 11/15/2017 12:0 0 AM CDT ANTI HCV Routine 07/28/2015 1:14 PM [employer] Need for hepatitis C screening test from Last 3 Months or Most Recently Relevant to Health Maintenance Results * ECHO VIJI WO CONTRAST W COLOR W LTD DOPPLER (05/20/2024 8:57 AM [employer]) Anatomical Region Laterality Modality Ultrasound 05/20/2024 8:09 AM [employer] Narrative 05/20/2024 10:13 AM [employer] TRANSESOPHAGEAL ECHOCARDIOGRAM SUDHA ZAMARRIPA : 1950 74 years Study Date: 05/20/2024 8:09:14 AM Gender: F BP: 127/80 mmHg Height: 158.00 cm BSA: 1.64 m Weight: 63.00 kg Tech: [facility] Referring MD: QUAN SOTO Site: [facility] Reading Location: [facility] OP Patient Location: Outpatient. Procedure: VIJI, Color Doppler, Limited Spectral Doppler and 3D Imaging. Indication for study: Presence of Watchman left atrial appendage closure device; Paroxysmal atrial fibrillation Cardiac Rhythm: Normal sinus.Study quality: Fair. Final Impressions: 1. Normal left ventricular size, normal global systolic function. 2. Watchman device in good position with no yadira-procedure leak. 3. Occluder device present in the left atrial appendage. 4. Decreased left atrial appendage flow velocities. 5. Mildly enlarged left atrium. 6. The aortic valve is trileaflet and sclerotic, no stenosis and trivial regurgitation. 7. The mitral valve is repaired with an annuloplasty ring, mild mitral regurgitation. 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 9. Normal sized descending aorta with moderate plaque visualized. Procedure comments: Indications, goals, risks and alternatives of the procedure were discussed with the patient and informed consent was obtained. The patient received oral Lidocaine to anesthetized the posterior oropharynx, conscious sedation of intravenous Versed and intravenous Fentanyl. See procedural record for anesthesia details. Prior to performance of procedure, time out was called to accurately identify the patient and procedure. The Echo probe was passed without difficulty. VIJI, Color Doppler, Limited Spectral Doppler and 3D Imaging was performed. The patient developed no apparent complications during the procedure. Estimated Blood Loss: 0 ml Versed: Specimen Collected: Proceduralist: Troy Kennedy MD Chamber Sizes and Function Normal left ventricular size, normal global systolic function. No resting regional wall motion abnormality visualized. Left atrial size is mildly enlarged. Watchman device in good position with no yadira-procedure leak. The left atrial appendage occluder device is visualized. Decreased left atrial appendage flow velocities. Right ventricular cavity size is normal, global systolic RV function is normal. RV wall thickness is normal. The right atrium is normal. The pulmonary artery is of normal size and origin. The sinus of Valsalva is normal sized. The ascending aorta is normal sized. Aortic arch is normal sized with no significant plaque visualized. Descending aorta is normal sized with moderate plaque visualized. Valves, RV Pressures and Diastolic Function The aortic valve is trileaflet and sclerotic, no stenosis and trivial regurgitation. The mitral valve is repaired with an annuloplasty ring, mild mitral regurgitation. The tricuspid valve is myxomatous. Tricuspid regurgitation is mild regurgitation. The pulmonic valve is normal. Mild pulmonary regurgitation. Masses, Effusion, Shunts There is no pericardial effusion. Atrial septum is intact. Agitated saline injection not done. MEASUREMENTS AND CALCULATIONS 2-D Measurements and LV Function: HR 67 bpm . This study was interpreted by an [facility] accredited facility. Final Procedure Note Troy Kennedy MD - 05/20/2024 TRANSESOPHAGEAL ECHOCARDIOGRAM SUDHA ZAMARRIPA : 1950 74 years Study Date: 05/20/2024 8:09:14 AM Gender: F BP: 127/80 mmHg Height: 158.00 cm BSA: 1.64 m Weight: 63.00 kg Tech: [facility] Referring MD: QUAN SOTO Site: [facility] Reading Location: [facility] OP Patient Location: Outpatient. Procedure: VIJI, Color Doppler, Limited Spectral Doppler and 3D Imaging. Indication for study: Presence of Watchman left atrial appendage closuredevice; Paroxysmal atrial fibrillation Cardiac Rhythm: Normal sinus.Study quality: Fair. Final Impressions: 1. Normal left ventricular size, normal global systolic function. 2. Watchman device in good position with no yadira-procedure leak. 3. Occluder device present in the left atrial appendage. 4. Decreased left atrial appendage flow velocities. 5. Mildly enlarged left atrium. 6. The aortic valve is trileaflet and sclerotic, no stenosis and trivialregurgitation. 7. The mitral valve is repaired with an annuloplasty ring, mild mitralregurgitation. 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 9. Normal sized descending aorta with moderate plaque visualized. Procedure comments: Indications, goals, risks and alternatives of theprocedure were discussed with the patient and informed consent wasobtained. The patient received oral Lidocaine to anesthetized theposterior oropharynx, conscious sedation of intravenous Versed andintravenous Fentanyl. See procedural record for anesthesia details. Priorto performance of procedure, time out was called to accurately identifythe patient and procedure. The Echo probe was passed without difficulty.VIJI, Color Doppler, Limited Spectral Doppler and 3D Imaging was performed.The patient developed no apparent complications during the procedure. Estimated Blood Loss: 0 ml Versed: Specimen Collected: Proceduralist: Troy Kennedy MD Chamber Sizes and Function Normal left ventricular size, normal global systolic function. No restingregional wall motion abnormality visualized. Left atrial size is mildlyenlarged. Watchman device in good position with no yadira-procedure leak.The left atrial appendage occluder device is visualized. Decreased leftatrial appendage flow velocities. Right ventricular cavity size is normal,global systolic RV function is normal. RV wall thickness is normal. Theright atrium is normal. The pulmonary artery is of normal size and origin.The sinus of Valsalva is normal sized. The ascending aorta is normalsized. Aortic arch is normal sized with no significant plaque visualized.Descending aorta is normal sized with moderate plaque visualized. Valves, RV Pressures and Diastolic Function The aortic valve is trileaflet and sclerotic, no stenosis and trivialregurgitation. The mitral valve is repaired with an annuloplasty ring,mild mitral regurgitation. The tricuspid valve is myxomatous. Tricuspidregurgitation is mild regurgitation. The pulmonic valve is normal. Mildpulmonary regurgitation. Masses, Effusion, Shunts There is no pericardial effusion. Atrial septum is intact. Agitated salineinjection not done. MEASUREMENTS AND CALCULATIONS 2-D Measurements and LV Function: HR 67 bpm . This study was interpreted by an [facility] accredited facility. Final Quan Soto MD ECHO ORD Final Resul t * (ABNORMAL) XR DXA BONE DENSITY 2 SITES AXIAL (2024 2:18 PM [employer]) Anatomical Region Laterality Modality Spine, HIPS, HIPL, HIPR Other Impressions 04/30/2024 2:06 PM [employer] Osteoporosis. RECOMMENDATIONS: The National Osteoporosis Foundation recommends pharmacologic treatment for patients with T-scores of -2.5 or less, patients with prior history of fragility fractures, or patients with 10-year probability of greater than 3% at hips or greater than 20% of suffering major osteoporotic fractures. Recommend continued optimization of calcium and vitamin D intake through dietary means and/or supplementation and regular exercise. Consider pharmacologic therapy for osteoporosis. Follow-up bone density reading in 2 years if therapy initiated to assess therapeutic efficacy. Zenobia Berry PA-C [facility] 04/30/2024 Narrative 04/30/2024 2:06 PM [employer] For Patients: Results are automatically released to your [facility] ([employer]) account once available, in compliance with federal regulations. This means that you may see your results before your provider has had a chance to review them. Please allow 2-3 business days for your provider to comment on the results. XR DXA Bone Mineral Density (BMD) EXAM LOCATION: [facility] [address] [facility] [address] PATIENT NAME: Sudha Zamarripa DATE OF : 1950 EXAM DATE: 2024 REQUESTING PROVIDER: Arianna Jeffries MD GENDER AT : female HEIGHT: 5' 2.28 (04/11/2024) WEIGHT: 137 lb 3.2 oz (04/19/2024) MENOPAUSAL STATUS: Postmenopausal RACE/ETHNICITY: White RISK FACTORS: Smoking (prior) and White Race CURRENT MEDICATION FOR BONE LOSS: NONE INDICATION: Osteopenia; Osteoarthritis COMPARISON DATE(S): 2021 DXA scans are compared to prior studies for a patient only when the two (or more) studies were performed on the same scanner. It is not possible to compare data generated on one scanner to data from another because there are not standards in DXA equipment. This applies even if the two scanners are made by the same traveling construction superintendent. PROCEDURE: Dual-energy x-ray absorptiometry performed with routine technique. Reporting is completed in the form of a T-score. The T-score represents the standard deviation from peak bone mass based on young healthy adult. A Z-score is used for diagnosis in premenopausal women, and for men under the age of 50. FINDINGS: RESULTS FEMUR Left femoral neck BMD: 0.704 g/cm2 T-Score: - 2.4 Z-Score: - 0.5 Change from prior in 2021: Decrease 10.9%. Right femoral neck BMD: 0.707 g/cm2 T-Score: - 2.4 Z-Score: - 0.5 Change from prior in 2021: Decrease 12.2%. Left hip BMD: 0.725 g/cm2 T-Score: - 2.2 Z-Score: - 0.5 Change from prior in 2021: Decrease 8.9%. Right hip BMD: 0.750 g/cm2 T-Score: - 2.0 Z-Score: - 0.3 Change from prior in 2021: Decrease 10.9%. RESULT FOREARM Left Forearm distal radius BMD: 0.497 g/cm2 T-Score: - 2.9 Z-Score: - 0.8 Change from prior: None WHO criteria: Normal: T-score at or above -1 SD Osteopenia: T-score between -1.1 and -2.4 SD Osteoporosis: T-score at or below -2.5 SD FRAX RISK CALCULATION (USED FOR OSTEOPENIA ONLY): 10-year probability of major osteoporotic fracture: 16.0%. 10-year probability of hip fracture: 4.7%. Arianna Quintanilla Capp, MD DEXA Final Result * SCAN-OPERATIVE/PROCEDURE REPORT (04/15/2024 12:00 AM [employer]) Scanner OTHER Final Result * CREATININE (04/11/2024 11:02 AM [employer]) CREATININE 0.76 0.60 - 1.00 mg/dL [facility] EGFR 83 > OR = 60 mL/min/1.73 m2 [facility] Blood BLOOD SPECIMEN / Unknown 04/11/2024 11:02 AM [employer] 04/11/2024 11:02 AM [employer] Yusra Goode DO CHEMISTRY Final Resu lt [facility] [address] [place] [address], [facility] [address] [place] [address] * MAGNESIUM (04/11/2024 11:02 AM [employer]) MAGNESIUM 1.5 1.5 - 2.5 mg/dL [facility] Blood BLOOD SPECIMEN / Unknown 04/11/2024 11:02 AM [employer] 04/11/2024 11:02 AM [employer] us Blessing Calixto MD CHEMISTRY Final Result [facility] [address] [facility] [place] [address], [facility] [address] [place] [address] * SCAN-CARDIAC STRIP (03/27/2024 4:13 PM [employer]) us Scanner OTHER Final Result * SCAN-CARDIAC STRIP (03/27/2024 2:00 PM [employer]) us Scanner OTHER Final Result * ECHO VIJI TRANSCATHETER INTRAOP PROCEDURE (03/27/2024 1:25 PM [employer]) Pathologist [facility] EJECTION FRACTION 55 - 60% Anatomical Region Laterality Modality HEART Ultrasound 03/27/2024 8:58 AM [employer] Narrative 03/27/2024 12:36 PM [employer] TRANSESOPHAGEAL ECHOCARDIOGRAM SUDHA ZAMARRIPA : 1950 73 years Study Date: 03/27/2024 8:58:04 AM Gender: F BP: 155/100 mmHg Height: 157.00 cm BSA: 1.61 m Weight: 61.00 kg Tech: Referring MD: QUAN SOTO Site: [facility] Reading Location: [facility] Patient Location: Procedure: VIJI, Color Doppler, Spectral Doppler and 3D Imaging. Indication for study: Intra-Procedural VIJI for Watchman Flex Pro (#35mm) Cardiac Rhythm: Irregular.Study quality: Good. Final Impressions: 1. Normal left ventricular size, normal global systolic function with an estimated EF of 55 - 60%. 2. Mildly enlarged left atrium. 3. The left atrial appendage is schicken wing structure with prominent pectinate ridges. At 0 degrees, orifice width = 2.6 cm, and appendage length = 2.0cm. At 45 degrees, orifice width = 2.6 cm, and appendage length = 1.8 cm. At 90 degrees, TERRIE orifice width= 2.5 cm, and appendage length = 2.2 cm. At 135 degrees, orifice width = 2.6 cm and appendage length = 1.9 cm. Appendage orifice is elliptical and longest dimension = 2.8 cm and shortest dimension = 1.9 cm. 4. 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 5. No evidence of thrombus present in the left atrial appendage. 6. Intra-Procedural VIJI: A transeptal puncture was guided by 2D/3D imaging. The Watchman delivery catheter was positioned within the left atrial appendange. A #35mm Watchman Flex Pro device was positioned using 2D/3D (biplane) guidance. Prior to release the following was assessed: 1) Position of the device was parallel to the long-axis of the TERRIE and covering the orifice 2) Anchoring was confirmed with a tug test 3) Size of the device was appropriate with >20% compression 4) Seal was confirmed with no color Doppler flow outside the device. The device was released and repeat measurements were performed. At 0 degrees, rifjnjmh-vl-kbawhemn width = 2.8cm At 45 degrees, ssvgzqul-qp-dmjdkniu width = 2.6cm At 90 degrees, uesllbgm-ii-gvccctzi width = 2.6cm At 135 degrees, equijmog-dm-fbafswtx width = 2.6cm Pulmonary vein flows were normal. LV and RV function remained unchanged. By the end of the study, there was no pericardial effusion. A small defect in the inter-atrial septum was seen by Color Doppler with left to right shunt. Procedure comments: Indications, goals, risks and alternatives of the procedure were discussed with the patient and informed consent was obtained. The patient received general anesthesia. See procedural record for anesthesia details. Prior to performance of procedure, time out was called to accurately identify the patient and procedure. The X8-2T probe was passed without difficulty. VIJI, Color Doppler, Spectral Doppler and 3D Imaging was performed. The patient developed no apparent complications during the procedure. Estimated Blood Loss: 0 ml Versed: Specimen Collected: Proceduralist: Chhaya Bustamante MD Post Procedure Findings Chamber Sizes and Function Normal left ventricular size, normal global systolic function with an estimated EF of 55 - 60%. No resting regional wall motion abnormality visualized. Left atrial size is mildly enlarged. The left atrial appendage is well visualized and there is no evidence of thrombus present. Not well visualized left atrial appendage flow velocities. Masses, Effusion, Shunts There is no pericardial effusion. Atrial septum is aneurysmal. Agitated saline injection not done. MEASUREMENTS AND CALCULATIONS 2-D Measurements and LV Function: HR 70 bpm . Final (Updated) Procedure Note Chhaya Bustamante, [facility] - 03/27/2024 TRANSESOPHAGEAL ECHOCARDIOGRAM SUDHA ZAMARRIPA : 1950 73 years Study Date: 03/27/2024 8:58:04 AM Gender: F BP: 155/100 mmHg Height: 157.00 cm BSA: 1.61 m Weight: 61.00 kg Tech: Referring MD: QUAN OSTO Site: [facility] Reading Location: [facility] Patient Location: Procedure: VIJI, Color Doppler, Spectral Doppler and 3D Imaging. Indication for study: Intra-Procedural VIJI for Watchman Flex Pro (#35mm) Cardiac Rhythm: Irregular.Study quality: Good. Final Impressions: 1. Normal left ventricular size, normal global systolic function with anestimated EF of 55 - 60%. 2. Mildly enlarged left atrium. 3. The left atrial appendage is schicken wing structure with prominentpectinate ridges. At 0 degrees, orifice width = 2.6 cm, and appendage length = 2.0cm. At 45 degrees, orifice width = 2.6 cm, and appendage length = 1.8cm. At 90 degrees, TERRIE orifice width= 2.5 cm, and appendage length = 2.2cm. At 135 degrees, orifice width = 2.6 cm and appendage length = 1.9cm. Appendage orifice is elliptical and longest dimension = 2.8 cm andshortest dimension = 1.9 cm. 4. 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 5. No evidence of thrombus present in the left atrial appendage. 6. Intra-Procedural VIJI: A transeptal puncture was guided by 2D/3Dimaging. The Watchman delivery catheter was positioned within the leftatrial appendange. A #35mm Watchman Flex Pro device was positioned egamd4O/3D (biplane) guidance. Prior to release the following was assessed: 1) Position of the device was parallel to the long-axis of the TERRIE andcovering the orifice 2) Anchoring was confirmed with a tug test 3) Size of the device was appropriate with >20% compression 4) Seal was confirmed with no color Doppler flow outside the device. The device was released and repeat measurements were performed. At 0 degrees, lfxggyow-bs-eajeypvq width = 2.8cm At 45 degrees, tpwxmjtw-mb-mrfyxcat width = 2.6cm At 90 degrees, yizvomvw-gg-vybjrfok width = 2.6cm At 135 degrees, cjjonqpi-hd-ihzkiwrk width = 2.6cm Pulmonary vein flows were normal. LV and RV function remainedunchanged. By the end of the study, there was no pericardial effusion. A small defect in the inter-atrial septum was seen by Color Dopplerwith left to right shunt. Procedure comments: Indications, goals, risks and alternatives of theprocedure were discussed with the patient and informed consent wasobtained. The patient received general anesthesia. See procedural recordfor anesthesia details. Prior to performance of procedure, time out wascalled to accurately identify the patient and procedure. The X8-2T probewas passed without difficulty. VIJI, Color Doppler, Spectral Doppler and 3DImaging was performed. The patient developed no apparent complicationsduring the procedure. Estimated Blood Loss: 0 ml Versed: Specimen Collected: Proceduralist: Chhaya Bustamante MD Post Procedure Findings Chamber Sizes and Function Normal left ventricular size, normal global systolic function with anestimated EF of 55 - 60%. No resting regional wall motion abnormalityvisualized. Left atrial size is mildly enlarged. The left atrial appendageis well visualized and there is no evidence of thrombus present. Not wellvisualized left atrial appendage flow velocities. Masses, Effusion, Shunts There is no pericardial effusion. Atrial septum is aneurysmal. Agitatedsaline injection not done. MEASUREMENTS AND CALCULATIONS 2-D Measurements and LV Function: HR 70 bpm . Final (Updated) us Quan Soto MD ECHO ORD Edited Resu lt - Final * (ABNORMAL) ACTIVATED CLOTTING TIME [id number] ACT (03/27/2024 11:05 AM [employer]) Only the most recent of2 resultswithin the time period is included. ACTIVATED CLOTTING TIME, POCT 136(H) 74 - 125 sec 03/27/2024 12:17 PM [employer] [facility] Blood BLOOD SPECIMEN / Unknown 03/27/2024 11:05 AM [employer] 03/27/2024 12:17 PM [employer] Quan Soto MD HEMATOLOGY Final Resul t [facility] [address] [place] [address], [place] * EP Procedure to be Performed (03/27/2024 9:54 AM [employer]) Narrative Quan Soto MD - 03/27/2024 9:54 AM [employer] Quan Soto MD 03/27/2024 9:56 AM Cardiac Electrophysiology Immediate Post Procedure Note Preoperative Diagnosis: PAF Procedure: successful Watchman 35 Flx Pro implant Findings/Conclusions: successful Watchman implant Postoperative Diagnosis: Same as preoperative diagnosis Complications: none Personally monitored patient with conscious sedation during procedure: Per anesthesia Estimated Blood Loss: minimal Specimen: N/A Plan: Bedrest 3 hours Likely discharge home later today Surgeon: Quan Soto MD Quan Soto MD SEA[employer] PREPARER ORD Final Resul t * EP OTHER PROCEDURE (03/27/2024 9:06 AM [employer]) Anatomical Region Laterality Modality Ultrasound 03/27/2024 9:06 AM [employer] Narrative Transcriptions Quan Soto MD - 04/21/2024 3:13 AM CST [facility] Electrophysiology Implant Report Name: SUDHA ZAMARRIPA Event Date: 03/27/2024 [employer] ID #: [id number] Date: 1950 Gender: Female Age: 73 [facility] #: [id number] Procedure Performed By: QUAN SOTO ReferringPhysician: Implant Procedure Type Other TERRIE Closure Device EP Implant Summary / Conclusions SUCCESSFUL WATCHMAN LEFT ATRIAL APPENDAGE OCCLUSION DEVICE IMPLANT VASCULAR ACCESS * Using ultrasound guidance and a percutaneous technique, the rightfemoral vein was accessed. Ultrasound was used to confirm vessel patency,localizing needle into the lumen of the vessel. For safety purposes, apicture was saved for the medical record. * Using ultrasound guidance and a percutaneous technique, the left femoralvein was accessed. Ultrasound was used to confirm vessel patency,localizing needle into the lumen of the vessel. For safety purposes, apicture was saved for the medical record. Pre-Operative Diagnosis ? Atrial Fibrillation and Flutter ? Hypertension ? Non-ischemic cardiomyoapthy ? Bruising and high risk of bleeding Post-Operative Diagnosis ? Same as Pre-operative diagnosis Indications ? Same as Pre-operative diagnosis Brief Patient History Atrial fibrillation Prediabetes Hypertension Nonischemic cardiomyopathy Ms. Zamarripa presents with history of atrial fibrillation with [id number] of 3 and HAS-BLED score of 3. She also has history of easybruisability and significant anemia of unknown cause [facility]. She is very worried about stroke riskoff anticoagulation. At the same time, she is worried about bleedingconsequences if she continues on anticoagulation with Xarelto 20 mgdaily. I had a long discussion with Mrs. Zamarripa about different managementoptions to reduce stroke risk in patients with atrial fibrillationincluding Watchman device versus anticoagulation. Discussed stroke and bleeding risks with patient based on her [id number] of 3 and HAS-BLED score of 3. Mrs. Zamarripa has the indication for anticoagulation due to atrialarrhythmias and associated high risk for cardio-embolic stroke. Thepatient is suitable for short-term anticoagulation. However, has arelative contraindication for long-term anticoagulation due to high riskfor bleeding. I discussed at length the pathophysiology and managementstrategies of cardio-embolic risk, anticoagulation risks and benefits, andmanagement strategy options with the patient. In concert with nursing,using the [employer] wide tool, Atrial Fibrillation and Options to Reduce theRisk of Blood Clots and Stroke, which is an evidence based patientdecision tool on oral anticoagulation, we explored and compared all strokeprevention treatment options for atrial fibrillation in a formal shareddecision making process. The patient understands that anticoagulation/antithrombotic therapy willbe maintained in a variety of forms during the first year. Consent & [place] Protocol [place] protocol was followed. TIME OUT conducted just prior tostarting procedure confirmed patient identity, site/side, procedure,patient position, and availability of correct equipment and implants (ifapplicable). The risks, benefits, and alternatives of the procedure were discussed withthe patient and written informed consent was obtained. Procedure Description The patient presented to the EP lab. After informed consent was affirmed,the patient was prepped and draped in sterile fashion and placed underanesthesia. A VIJI was performed by Dr. Bustamante; there was no evidence ofthrombus and no pericardial effusion. A Watchman delivery sheath would beplaced into the right femoral vein after access was obtained over aguidewire with ultrasound guidance. A 7F sheath was introduced into theleft femoral vein over a guidewire with ultrasound guidance for centralvenous access. Heparin was administered for goal ACT 350 sec. A singletransseptal access was obtained via the right femoral vein with an [id number] over a Brk needle using VIJI and fluoroscopy for guidance. Thepreferred access point was mid and inferior. This sheath was exchangedwith the Watchman outer sheath. This sheath was advanced into the leftatrial appendage with a pigtail catheter where contrast was injected andthe anatomical margins were marked on the fluoroscopic screen. We sizedand then implanted a 35 FLX PRO Watchman with excellent positioning andstability within the TERRIE. The PASS criteria was confirmed. We disengagedfrom the device and pulled out of the left atrium. ACT was partiallyreversed with protamine. Sheaths were pulled and manual pressure held toattain hemostasis and a ptgtmm-fp-jnqls suture was placed around theWatchman external delivery sheath. The patient tolerated the procedurewell, and there were no immediate complications. Complications ? No complications Procedure(s) Performed ? WATCHMAN IMPLANT Procedure Detail Estimated Blood Loss: < 50 ml Specimen Collected: None Level of Sedation Achieved: See Anesthesia Note Total Fluoro Time: 7.7 PHOTO MASK PATTERN GENERATOR Total Fluoro Dose: 284 mGy Contrast: Omnipaque, 20 ml Staff Name Role Quan Soto Implanting Christina Phillips RN Nurse Yonny Decker EPT Scrub Rashel Lerma EPT Coal Shooter Torin Hayes CVT Coal Shooter Medications Ordered and Administered Start Time Stop Time Medication Dose Units Route Ordered By Given By 09:06 1% Lidocaine Hydrochloride 5 mL Subcut MD Quan Navarro MD 09:06 0.25% Bupivicaine 5 mL Subcut MD Quan Navarro MD 09:14 Heparin [id number] Units IV MD Christina Navarro RN 09:28 Heparin 2000 Units IV MD Quan Navarro MD 09:51 Protamine 45 Mg IV MD Christina Navarro, MED The anesthesia service monitored the patient?s conscious sedation duringthe procedure. The medications listed above were verbally ordered by me and read back tome as documented above. Refer to the hemodynamic procedure log report for additional casedetails. electronically signed on 04/21/2024 3:13:15 AM with status of Final Quan Soto MD Implanting Field Director [address] [place] [address] (p) [phone](f) Quan Soto MD CV IMAGING Edited Resu lt - Final * HCHG TUBE PR1, HCHG STYLET PR1 (03/27/2024 9:04 AM [employer]) Narrative Tiffani Blount CRNA - 03/27/2024 9:04 AM [employer] Tiffani Blount CRNA 03/27/2024 9:05 AM Procedure: ETT Patient location during procedure: OR ETT Properties Mask Ventilation: easy Final Technique: direct laryngoscopy Type: straight Location: oral Tube Size: 7.0 mm Stylet: yes Laryngoscope Blade: Mac Blade Size: 3 Cormack-Lehane Grade View: 1 Insertion Attempts: 1 Placement Verification: auscultation, end tidal CO2 and symmetrical chest wall movement Assessment: pharynx clear, atraumatic and dentition unchanged Secured at: 22 Measured From: lips Difficulty: 0 (not difficult) us Fantasma Gonzalez MD ANESTHESIA PX NOTE ORD ERABLES Final Result * HCHG CATH PR5, HCHG ANES US GUIDE FOR VASC ACCESS, HCHG ANES ARTERIAL CATH FOR SAMPLE MONITOR TRANS, HCHG TUBING PR1, HCHG TUBING PR20, HCHG DRSG PR1, HCHG DRSG PR5, HCHG KIT PR5 (03/27/2024 7:30 AM [employer]) Narrative Fantasma Gonzalez MD - 03/27/2024 7:30 AM [employer] Fantasma Gonzalez MD 03/27/2024 7:31 AM Arterial Line Patient location during procedure: pre-op Indications: lab sampling and monitoring Staffing Preanesthetic Checklist Completed: patient identified, risks and benefits discussed, consent obtained and timeout performed Arterial Line Laterality: left Site: radial Local Anesthetic: lidocaine 1%. Ultrasound guidance: live ultrasound, ultrasound permanent image saved and sterile gel and probe cover used in ultrasound-guided central venous catheter insertion. Needle localization (ultrasound): no pathologic findings, anatomically normal, potential access sites evaluated, selected vessel patent and needle visualized entering selected vessel. Securement/dressing: Biopatch applied, dressing applied. Comment: Needle Catheter size: 20 G. Comment:. Catheter length: 4.5 cm. Comment: Events: no complications. Result [facility] Fantasma Gonzalez MD ANESTHESIA PX NOTE ORD ERABLES Final Result * 12 Lead EKG (03/27/2024 7:05 AM [employer]) Only the most recent of2 resultswithin the time period is included. Interpretation Sinus rhythm with 1st degree A-V block Otherwise normal ECG When compared with ECG of 19-Feb-2024 08:47, No significant change was found BEYOND NOW Ventricular Rate 88 BPM BEYOND NOW Atrial Rate 88 BPM BEYOND NOW P-R Interval 280 ms BEYOND NOW QRS Duration 92 ms BEYOND NOW QT 386 ms BEYOND NOW QTc 467 ms BEYOND NOW P [place] 83 degrees BEYOND NOW R [place] 50 degrees BEYOND NOW T [place] 16 degrees BEYOND NOW 03/27/2024 7:05 AM [employer] 03/28/2024 2:58 PM [employer] Narrative BEYOND NOW - 03/28/2024 2:59 PM [employer] Test Indication: POST Result [facility] Quan Soto MD EKG ORD Final Resul t BEYOND NOW [place], [place] * EXTRA TUBE GOLD/SST (03/27/2024 7:00 AM [employer]) Blood BLOOD SPECIMEN / Unknown Extra Tube / Unknown 03/27/2024 7:00 AM [employer] 03/27/2024 7:15 AM [employer] Quan Soto MD LABORATORY Final Resul t [facility] [address] [place] [address], * (ABNORMAL) CBC with Platelets no Differential (03/27/2024 7:00 AM [employer]) WHITE BLOOD COUNT 5.7 4.5 - 11.0 thou/cu mm 03/27/2024 7:22 AM [employer] [facility] RED BLOOD COUNT 3.74(L) 4.00 - 5.20 mil/cu mm 03/27/2024 7:22 AM [employer] [facility] HEMOGLOBIN 11.1(L) 12.0 - 16.0 g/dL 03/27/2024 7:22 AM [employer] [facility] HEMATOCRIT 35.1 33.0 - 51.0 % 03/27/2024 7:22 AM [employer] [facility] MCV 94 80 - 100 fL 03/27/2024 7:22 AM [employer] [facility] MCH 29.7 26.0 - 34.0 pg 03/27/2024 7:22 AM [employer] [facility] MCHC 31.6(L) 32.0 - 36.0 g/dL 03/27/2024 7:22 AM [employer] [facility] RDW 14.1 11.5 - 15.5 % 03/27/2024 7:22 AM [employer] [facility] PLATELET COUNT 151 140 - 440 thou/cu mm 03/27/2024 7:22 AM [employer] [facility] MPV 10.6 6.5 - 11.0 fL 03/27/2024 7:22 AM [facility] NRBC 0.0 % 03/27/2024 7:22 AM [facility] ABS NRBC 0.0 thou /cu mm 03/27/2024 7:22 AM [facility] Blood BLOOD SPECIMEN / Unknown Non-Lab Venipuncture / Unknown 03/27/2024 7:00 AM [employer] 03/27/2024 7:14 AM [facility] us Quan Soto MD HEMATOLOGY Final Resul t [facility] [address] [place] [address], * (ABNORMAL) Basic Metabolic Panel (03/27/2024 7:00 AM [employer]) Only the most recent of2 resultswithin the time period is included. SODIUM 137 136 - 145 mmol/L 03/27/2024 7:42 AM [facility] POTASSIUM 4.1 3.5 - 5.1 mmol/L 03/27/2024 7:42 AM [facility] CHLORIDE 100 98 - 107 mmol/L 03/27/2024 7:42 AM [facility] CO2,TOTAL 28 22 - 29 mmol/L 03/27/2024 7:42 AM [facility] ANION GAP 9 5 - 18 03/27/2024 7:42 AM [facility] GLUCOSE 101(H) 70 - 99 mg/dL 03/27/2024 7:42 AM [facility] CALCIUM 9.5 8.8 - 10.4 mg/dL 03/27/2024 7:42 AM [facility] Comment: Reference ranges for this test were updated on 03/26/2024 to reflect our healthy population more accurately. Reference range changes are not retroactively applied to results, but previous results using the same methodology can be interpreted in the context of the new reference range. BUN 23 8 - 23 mg/dL 03/27/2024 7:42 AM [facility] CREATININE 0.70 0.50 - 0.90 mg/dL 03/27/2024 7:42 AM [facility] BUN/CREAT RATIO 33(H) 10 - 20 7:42 AM [facility] eGFR >90 >90 mL/min/1. 73m2 03/27/2024 7:42 AM [facility] Comment:As of 2021, eG FR is calculated by the CKD-EPI creatinine equation without race adjustment. eGFR can be influenced by muscle mass, exercise, and diet. The reported eGFR is an estimation only and is only applicable if the renal function is stable. Blood BLOOD SPECIMEN / Unknown Non-Lab Venipuncture / Unknown 03/27/2024 7:00 AM [employer] 03/27/2024 7:14 AM [employer] us Quan Soto MD CHEMISTRY Final Resul t [facility] [address] [place] [address], [place] * XR MAMMO TELMA BILAT SCREEN (02/27/2024 11:32 AM CDT) Anatomical Region Laterality Modality BREASTS, Breast Left, Breast Right Bilateral Mammography Impressions 02/28/2024 2:34 PM CDT There is no radiographic evidence for malignancy. Recommend annual mammograms. MAMMOGRAM ASSESSMENT: ACR 1 Negative PATIENTS: You will also receive a letter with your examination results in an easy to read format. If you have questions about your results, please contact your referring provider. Narrative 02/28/2024 2:34 PM CDT For Patients: As a result of the 21st Century Cures Act, medical imaging exams and procedure reports are released immediately into your electronic medical record. You may view this report before your referring provider. If you have questions, please contact your health care provider. XR MAMMO TELMA BILAT SCREEN [[id number]] CLINICAL HISTORY: This is an asymptomatic 73 y.o. patient. INDICATION FOR EXAM: Mammogram Screening. TECHNIQUE: CC & MLO views were obtained. This study was evaluated with the assistance of Computer-Aided Detection. Breast Tomosynthesis was used in interpretation. COMPARISON FILM: Yes 11/10/22 [facility] 06/14/21 [facility] FINDINGS: There are scattered areas of fibroglandular density. There are no dominant masses, suspicious micro calcifications or areas of architectural distortion. Christine Rodriguez MD MAMMO Final R esult * ECHO TTE COMPLETE WO CONTRAST (02/19/2024 8:39 AM CDT) AORTIC VALVE MEAN PG 4 mmHg PEAK TR VELOCITY 4.1 m/s LVEDD 4.5 cm MITRAL VALVE MR ERO 19 mm2 EJECTION FRACTION 55 - 60% Anatomical Region Laterality Modality Ultrasound 02/19/2024 7:53 AM CDT Narrative 02/19/2024 10:10 AM CDT ECHOCARDIOGRAM SUDHA ZAMARRIPA : 1950 73 years Study Date: 02/19/2024 7:53:07 AM Gender: F BP: 155/109 mmHg Height: 157.48 cm BSA: 1.62 m Weight: 61.24 kg Tech: BONNIE Referring MD: ONDINA ADKINS Site: [facility] Reading Location: [facility] Patient Location: Procedure: 2D, Color Doppler and Spectral Doppler. Indication for study: MR Cardiac Rhythm: Normal sinus.Study quality: Good. Final Impressions: 1. Normal LV size, normal wall thickness, normal global systolic function with an estimated EF of 55 - 60%. 2. Right ventricular cavity size is normal, global systolic RV function is borderline reduced. 3. The mitral valve is s/ptatus post Medtronic annuloplasty with suture closure of posterior leaflet cleft (08/07/2023, [place]). Mild residual mitral regurgitation. Mean gradient 4 mmHg at HR 88 BPM. 4. Moderate tricuspid regurgitation. 5. Severely increased estimated pulmonary pressures by tricuspid regurgitation velocity and right atrial pressure (67 mmHg plus RAP). 6. Bi atrial enlargement. Comparison Compared to prior exam of 01/06/2023: S/p mitral repair, moderate TR with severely increased estimated pulmonary pressures. Chamber Sizes and Function Normal left ventricular size, normal wall thickness, normal global systolic function with an estimated EF of 55 - 60%. Mild septal left ventricular hypertrophy. Left atrial size is severely enlarged. Right ventricular cavity size is normal, global systolic RV function is borderline reduced. RV wall thickness is normal. The right atrium is moderately enlarged. The pulmonary artery is of normal size and origin. The sinus of Valsalva is normal sized. The ascending aorta is normal sized. Valves, RV Pressures and Diastolic Function The aortic valve is trileaflet and sclerotic, no stenosis and trivial regurgitation. The mitral valve is Status post mitral valve Medtronic annuloplasty and mitral valvuloplasty with suture closure of posterior leaflet cleft (08/07/2023, [place])., mild mitral regurgitation. (PISA ERO 19 mm and RV of 30 ml). Indeterminate pattern of LV diastolic filling. The tricuspid valve is normal in structure. Tricuspid regurgitation is moderate. The tricuspid regurgitant velocity is 4.1 m/s, the estimated right ventricular systolic pressure is 67 mmHg plus right atrial pressure. There is severely increased estimated pulmonary pressure by tricuspid regurgitation velocity and right atrial pressure. The pulmonic valve is normal. Mild-moderate pulmonary regurgitation. Masses, Effusion, Shunts There is no pericardial effusion. The inferior vena cava is dilated, respiratory size variation greater than 50%. No left to right shunting was detected by limited color flow Doppler interrogation of the interatrial septum. MEASUREMENTS AND CALCULATIONS 2-D Measurements and LV Function: LVID (d) 4.5 cm LV FS% (2D) 24 % LVID (s) 3.4 cm LVOT diameter 2.0 cm IVS (d) 1.0 cm HR 85 bpm LVPW (d) 1.0 cm LA Vol index 79 ml/m2 Ao Sinus 3.2 cm Asc Ao 3.9 cm Diastology: Mitral Tissue Doppler E Peak 1.3 m/s e', Septum 0.06 m/s DT 155 msec e', Lateral 0.12 m/s E/e' Average 14.70 Aortic Valve: Vmax 1.3 m/s TRISHA (V) 2.15 cm VTI 0.25 m TRISHA (I) 2.03 cm LVOT V max 0.9 m/s Max PG 7 mmHg LVOT VTI 0.16 m Mean PG 4 mmHg SV 50 ml Dim Index 0.65 SV index 31 ml/m CO 4.3 l/min CI 2.6 l/min/m Mitral Valve: MVA 4.9 cm MR ERO 0.19 cm MV P 1/2 45 msec MR Vol. 30 ml MV Mean G 4 mmHg MR TVI 1.57 m Tricuspid Valve and estimated PA pressures: TR Vmax 4.1 m/s TAPSE 1.9 cm TR maxG 67 mmHg . This study was interpreted by an [facility] accredited facility. Final Procedure Note Reggie Portillo MD - 02/19/2024 ECHOCARDIOGRAM SUDHA ZAMARRIPA : 1950 73 years Study Date: 02/19/2024 7:53:07 AM Gender: F BP: 155/109 mmHg Height: 157.48 cm BSA: 1.62 m Weight: 61.24 kg Tech: BONNIE Referring MD: ONDINA ADKINS Site: [facility] Reading Location: [facility] Patient Location: Procedure: 2D, Color Doppler and Spectral Doppler. Indication for study: MR Cardiac Rhythm: Normal sinus.Study quality: Good. Final Impressions: 1. Normal LV size, normal wall thickness, normal global systolic functionwith an estimated EF of 55 - 60%. 2. Right ventricular cavity size is normal, global systolic RV functionis borderline reduced. 3. The mitral valve is s/ptatus post Medtronic annuloplasty with sutureclosure of posterior leaflet cleft (08/07/2023, [place]). Mild residualmitral regurgitation. Mean gradient 4 mmHg at HR 88 BPM. 4. Moderate tricuspid regurgitation. 5. Severely increased estimated pulmonary pressures by tricuspidregurgitation velocity and right atrial pressure (67 mmHg plus RAP). 6. Bi atrial enlargement. Comparison Compared to prior exam of 01/06/2023: S/p mitral repair, moderate TR withseverely increased estimated pulmonary pressures. Chamber Sizes and Function Normal left ventricular size, normal wall thickness, normal globalsystolic function with an estimated EF of 55 - 60%. Mild septal leftventricular hypertrophy. Left atrial size is severely enlarged. Rightventricular cavity size is normal, global systolic RV function isborderline reduced. RV wall thickness is normal. The right atrium ismoderately enlarged. The pulmonary artery is of normal size and origin.The sinus of Valsalva is normal sized. The ascending aorta is normalsized. Valves, RV Pressures and Diastolic Function The aortic valve is trileaflet and sclerotic, no stenosis and trivialregurgitation. The mitral valve is Status post mitral valve Medtronicannuloplasty and mitral valvuloplasty with suture closure of posteriorleaflet cleft (08/07/2023, [place])., mild mitral regurgitation. (PISA ERO 19mm and RV of 30 ml). Indeterminate pattern of LV diastolic filling. Thetricuspid valve is normal in structure. Tricuspid regurgitation ismoderate. The tricuspid regurgitant velocity is 4.1 m/s, the estimatedright ventricular systolic pressure is 67 mmHg plus right atrial pressure.There is severely increased estimated pulmonary pressure by tricuspidregurgitation velocity and right atrial pressure. The pulmonic valve isnormal. Mild-moderate pulmonary regurgitation. Masses, Effusion, Shunts There is no pericardial effusion. The inferior vena cava is dilated,respiratory size variation greater than 50%. No left to right shunting wasdetected by limited color flow Doppler interrogation of the interatrialseptum. MEASUREMENTS AND CALCULATIONS 2-D Measurements and LV Function: LVID (d) 4.5 cm LV FS% (2D) 24 % LVID (s) 3.4 cm LVOT diameter 2.0 cm IVS (d) 1.0 cm HR 85 bpm LVPW (d) 1.0 cm LA Vol index 79 ml/m2 Ao Sinus 3.2 cm Asc Ao 3.9 cm Diastology: Mitral Tissue Doppler E Peak 1.3 m/s e', Septum 0.06 m/s DT 155 msec e', Lateral 0.12 m/s E/e' Average 14.70 Aortic Valve: Vmax 1.3 m/s TRISHA (V) 2.15 cm VTI 0.25 m TRISHA (I) 2.03 cm LVOT V max 0.9 m/s Max PG 7 mmHg LVOT VTI 0.16 m Mean PG 4 mmHg SV 50 ml Dim Index 0.65 SV index 31 ml/m CO 4.3 l/min CI 2.6 l/min/m Mitral Valve: MVA 4.9 cm MR ERO 0.19 cm MV P 1/2 45 msec MR Vol. 30 ml MV Mean G 4 mmHg MR TVI 1.57 m Tricuspid Valve and estimated PA pressures: TR Vmax 4.1 m/s TAPSE 1.9 cm TR maxG 67 mmHg . This study was interpreted by an [facility] accredited facility. Final Ondina Adkins [employer]EL[employer] ECHO ORD Final Result * (ABNORMAL) LIPID PANEL W REFLEX MEASURED LDL (04/25/2022 1:58 PM [employer]) CHOLESTEROL,TOTAL 200(H) 100 - 199 mg/dL 04/28/2022 2:00 AM [employer] [facility] TRIGLYCERIDES 63 <150 mg/dL 04/28/2022 2:00 AM [employer] [facility] HDL CHOLESTEROL 133 >40 mg/dL 2:00 AM [employer] [facility] NON-HDL CHOLESTEROL 67 <145 mg/dl 04/28/2022 2:00 AM [employer] [facility] CHOL/HDL RATIO 1.50 <4.50 04/28/2022 2:00 AM [employer] [facility] LDL CHOLESTEROL 54 <=130 mg/dL 04/28/2022 2:00 AM [employer] [facility] VLDL CHOLESTEROL 13 <=30 mg/dL 04/28/2022 2:00 AM [employer] [facility] PROVIDER ORDERED STATUS RANDOM 04/28/2022 2:00 AM [employer] [facility] Blood BLOOD SPECIMEN / Unknown Venipuncture / Unknown 04/25/2022 1:58 PM [employer] 04/25/2022 2:06 PM [employer] Christine Rodriguez MD CHEMISTRY Final R esult [facility] [address] [place] [address], [place] * SCAN-COLONOSCOPY (11/15/2017 12:00 AM CDT) us Scanner OTHER Final Result * ANTI HCV [[id number]] (07/28/2015 1:14 PM [employer]) HEPATITIS C ANTIBODY Non-Reacti ve Non-Reacti ve 07/28/2015 8:03 PM [employer] [facility] Blood specimen (specimen) BLOOD SPECIMEN / Unknown Venipuncture / Unknown 07/28/2015 1:14 PM [employer] 07/28/2015 1:14 PM [employer] Narrative [facility] - 07/28/2015 8:03 PM [employer] Antibodies to HCV not detected; does not exclude the possibility of exposure to HCV. us Christine Rodriguez MD SEND OUTS Final R esult [facility] 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 Healthcare Directive 01/12/2024 8:35 AM he althcare directive scanned01/12/24 * Full Code (Latest Code Status on File) Date Activated Date Inactivated Comments 05/20/2024 8:12 AM 05/21/2024 2:19 AM Question Answer Comments Code Status Discussion: Reviewed Preferences * Full Code Date Activated Date Inactivated Comments 03/27/2024 10:07 AM 03/27/2024 7:17 PM Question Answer Comments Code Status Discussion: Reviewed Preferences * Full Code Date Activated Date Inactivated Comments 02/28/2023 8:32 AM 03/01/2023 2:16 AM Question Answer Comments Code Status Discussion: Unable to Assess Preferences, Provider to review later * Full Code Date Activated Date Inactivated Comments 05/04/2021 3:01 PM 05/07/2021 3:20 PM Question Answer Comments Code Status Discussion: Reviewed Preferences * Full Code Date Activated Date Inactivated Comments 12/16/2020 12:36 PM 12/16/2020 3:53 PM Question Answer Comments Code Status Discussion: Per Existing Order Care Teams Peoplesoft Analyst Relationship Specialty Start Date End Date Christine Rodriguez MD [address] [place] [address] PCP - General Family Practice 01/25/12 Nelson Schwarz [address] [place] [id number] Belt Loop Maker 07/28/15
--- OUTSIDE RECORDS SUMMARY | 2024-05-21 14:01 | XMS_ITS | Encounter Summary ---
Author Organization [facility] Address [address] [place] [address] Care Team Providers Care Mother Superior Name Role Phone Elsewhere, Pcp Primary Care Provider Unavailabl e Encounter Details Date Type Department Care Team (Latest Contact Info) Description 05/03/2024 10:[address]AND[address]APE ARCHITECT - 05/03/2024 11:[address] LANDSCAPE ARCHITECT Hospital Encounter Department of Laboratory Medicine and Pathology, [facility], in [place], [place] [address] [place] [address] Kinsey Freeman, JOHNSON, C.N.P. [address] [place] [address] Osteoporosis Discharge Disposition: Home or Self Care Social History Tobacco Use Types Packs/Day Years Used Date Smoking Tobacco: Former Cigarettes 0 10/03/1966 - 03/05/1974 Passive Smoke Exposure: Never Smokeless Tobacco: Never Alcohol Use Standard Drinks/Week Comments Yes 10 (1 standard drink = 0.6 oz pu re alcohol) [facility] Utilities Answer Date Recorded In the past 12 months has th e electric, gas, oil, or water company threatened to shut off services in your home? No 12/01/2023 Humiliation, Afraid, Rape, and Kick questionnair e Answer Date Recorded Within the last year, have y ou been afraid of your partner or ex-partner? No 10/31/2023 Within the last year, have y ou been humiliated or emotionally abused in other ways by your partner or ex-partner? No Within the last year, have y ou been kicked, hit, slapped, or otherwise physically hurt by your partner or ex-partner? No 10/31/2023 Within the last year, have y ou been raped or forced to have any kind of sexual activity by your partner or ex-partner? No 10/31/2023 Social Connection and Isolat ion Panel [NHANES] Answer Date Recorded In a typical week, how many times do you talk on the phone with family, friends, or neighbors? More than three times a week 08/15/2022 How often do you get togethe r with friends or relatives? Once a week 08/15/2022 How often do you attend chur or mormonism services? More than 4 times per year 08/15/2022 Do you belong to any clubs o r organizations such as gnosticism groups, unions, fraternal or athletic groups, or school groups? Yes 08/15/2022 How often do you attend meet ings of the clubs or organizations you belong to? More than 4 times per year 08/15/2022 Are you , , di vorced, , never , or living with a partner? 08/15/2022 AUDIT-C Answer Date Recorded Q1: How often do you have a drink containing alc ohol? 2-3 times a week 08/15/2022 Q2: How many drinks containi ng alcohol do you have on a typical day when you are drinking? 1 or 2 08/15/2022 Q3: How often do you have si x or more drinks on one occasion? Never 08/15/2022 Overall Financial Resource Strain (CARDIA) Answe r Date Recorded How hard is it for you to pa y for the very basics like food, housing, medical care, and heating? Not hard at all 08/15/2022 PHQ-2 Answer Date Recorded PHQ-2 Score 2 01/04/2024 [facility] Occupational Stress Questionnaire Answer Date Recorded Do you feel stress - tense, restless, nervous, or anxious, or unable to sleep at night because your mind is troubled all the time - these days? Not at all 08/15/2022 Exercise Vital Sign Answer Date Recorde d On average, how many days pe r week do you engage in moderate to strenuous exercise (like a brisk walk)? 3 days 12/01/2023 On average, how many minutes do you engage in exercise at this level? 30 min 12/01/2023 Hunger Vital Sign Answer Date Recorded Within the past 12 months, y ou worried that your food would run out before you got the money to buy more. Never true 12/01/19 24 Within the past 12 months, t he food you bought just didn't last and you didn't have money to get more. Never true 12/01/2023 PRAPARE - Transportation Answer Date Re corded In the past 12 months, has l ack of transportation kept you from medical appointments or from getting medications? No 11/19 In the past 12 months, has l ack of transportation kept you from meetings, work, or from getting things needed for daily living? No 12/01/2023 Depression Answer Date Recor ded PHQ-9 Total Score (max 27) 5 01/03 Nutrition Answer Date Recorded On average, how many serving s of fruits and vegetables do you eat per day (serving size is equal to 1 cup or approximately the size of a tennis ball)? 3-5 12/01/2023 Dental Answer Date Recorded Dental: Regular Dentist Yes 08/16/19 Employment Answer Date Recorded Employment status Retired 12/01/2023 Housing Stability Answer Date Recorded What is your living situation today? I have a [facility] place to live 12/01/2023 Education Answer Date Recorded What is the highest level of school you have completed or the highest degree you have received? Bachelor's degree (e.g., BA, AB, BS) 08/15/2022 Comments No Sex and Gender Information Value Date Recorded Sex Assigned at Female 05/11/2022 7:[address] ARCHITECT Legal Sex Female 9:[address] ARCHITECT Gender Identity Female 05/11/2022 7:[address]AND[address]APE ARCHITECT Sexual Orientation Straight 05/11/2022 7: [address] LANDSCAPE ARCHITECT documented as of this encounter Medications at Time of Discharge acetaminophen (TYLENOL) 500 mg tablet Take 1,000 mg by mouth every 8 (eight) hours. allopurinoL (ZYLOPRIM) 300 mg tablet Take 150 mg by mouth daily. 04/14/2021 aspirin 81 mg chewable tablet Chew 1 tablet (81 mg total) daily. 08/11/2023 atorvastatin (LIPITOR) 20 mg tablet Take 20 mg by mouth daily. 04/25/2022 buPROPion XL (WELLBUTRIN XL) 150 mg 24 hr tablet Take 150 mg by mouth daily. 11/08/2021 calcium carbonate 1,500 mg (600 mg calcium) tablet Take 1 tablet by mouth daily. carvediloL (COREG) 12.5 mg tablet Take 2 tablets by mouth 2 (two) times a day with meals. cholecalciferol, vitamin D3, 25 mcg (1,000 Unit) tablet Take 25 mcg by mouth daily. erythromycin (Romycin) 5 mg/gram (0.5 %) ophthalmic ointment Apply 1 strip to affected eye(s). 04/19/2024 ferrous sulfate 325 mg (65 mg iron) tablet Take 325 mg by mouth 3 (three) times a week. Monday, Monday, Monday gabapentin (NEURONTIN) 300 mg capsule Take 300 mg by mouth 4 (four) times a day. 02/28/2023 lisinopriL (PRINIVIL,ZESTRI L) 5 mg tablet Take 1 tablet (5 mg total) by mouth 2 (two) times a day. 60 tablet 08/11/2023 magnesium oxide (MAG-OX) 400 mg (241.3 mg magnesium) tablet Take 1 tablet by mouth daily. omeprazole (PriLOSEC) [address] capsule Take 20 mg by mouth every morning before breakfast. 04/25/2022 pediatric multivitamin-iro n-minerals (FLINTSTONES COMPLETE) chewable tablet Chew 1 tablet daily. 360 tablet 11/04/2023 potassium chloride (K-TAB) 20 mEq CR tablet Take 20 mEq by mouth daily. 08/31/2023 propafenone (RythmoL SR) 225 mg 12 hr capsule Take 225 mg by mouth every 12 (twelve) hours. 02/13/2024 rivaroxaban (XARELTO) 20 mg tablet Take 1 tablet (20 mg total) by mouth daily. Okay to start retaking 1 week after surgery 60 tablet 1 09/07/2022 romosozumab-aqqg (Evenity) 210mg/2.34mL ( 105mg/1.17mLx2) injection Inject 2.34 mL (210 mg total) under the skin every 28 (twenty-eight) days. 2.34 mL 11 05/01/2024 spironolactone (Aldactone) 25 mg tablet Take 0.5 tablets by mouth daily. 04/04/2024 triamcinolone (Kenalog) 0.1 % ointment Apply topically as needed for rash. 01/16/2024 documented as of this encounter Plan of Treatment Upcoming Encounters Date Type Department Care Team (Latest Contact Info) Description 05/29/2024 12:[address] LANDSCAPE ARCHITECT Clinical Communication Virtual Review in [place], [place] [address] [place] [address] 05/31/2024 11:[address] LANDSCAPE ARCHITECT Appointment Department of Laboratory Medicine and Pathology, [facility], in [address] [phone] Patricia Parker APRN, C.N.P., D.N.P. [address] [place] [phone] 05/31/2024 2:[address] LAND[address]APE ARCHITECT Comprehensive Visit Preoperative Evaluation Center in [place], [place] [address] [place] [phone] Arianna Jeffries M.D. [address] [place] [phone] 05/31/2024 2:[address] LANDSCAPE ARCHITECT Comprehensive Visit Preoperative Evaluation Center in [place], [place] [address] [place] [phone] Chris Moreno APRN, C.N.P., M.S. [address] [place] [phone] 06/03/2024 8:[address] LANDSCAPE ARCHITECT Hospital Encounter Post Anesthesia Care Unit in [place], [place] [address] [place] [phone] Tahir Moore M.D. [address] [place] [phone] 06/03/2024 8:[address] LANDSCAPE ARCHITECT - 06/03/2024 2:[address] LANDSCAPE ARCHITECT Surgery [facility] OR [address] [place] [phone] Tahir Moore M.D. [address] [place] [phone] C1-2 fusion 07/02/2024 11:[address] LANDSCAPE ARCHITECT Procedure visit Division of Pain Medicine in [place], [place] [address] [place] [phone] Adam Barlow M.D. 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 06/03/2024 8:[address] LANDSCAPE ARCHITECT documented as of this encounter Procedures Procedure Name Priority Date/Time Associated Diagnosis Comments QUANTITATIVE M-PROTEIN STUDY, S Routine 05/03/2024 11:[address] LANDSCAPE ARCHITECT Osteoporosis CELIAC DISEASE SEROLOGY CASCADE, S Routine 05/03/2024 11:[address] LANDSCAPE ARCHITECT Osteoporosis TISSUE TRANSGLUTAMINASE (TTG) AB, IGA, S Routine 05/03/2024 11:[address] LANDSCAPE ARCHITECT 25-HYDROXYVITAMIN D2 AND D3, S Routine 05/03/2024 11:[address] LANDSCAPE ARCHITECT Osteoporosis PHOSPHORUS (INORGANIC), S Routine 05/03/2024 11:[address] LANDSCAPE ARCHITECT Osteoporosis PARATHYROID HORMONE (PTH), S Routine 05/03/2024 11:[address] LANDSCAPE ARCHITECT Osteoporosis CREATININE WITH EGFR, S/P Routine 05/03/2024 11:[address] LANDSCAPE ARCHITECT Osteoporosis CALCIUM, TOT, S/P Routine 05/03/2024 11: [address] LANDSCAPE ARCHITECT Osteoporosis documented in this encounter Results * tTG (Tissue Transglutaminase), Antibody, IgA (05/03/2024 11:[address] LANDSCAPE ARCHITECT) Tissue Transglutaminase Ab, IgA, S <1.2 <4.0 (Negative ) U/mL 05/03/2024 10:[address] LANDSCAPE ARCHITECT [facility] Blood 05/03/2024 11:[address] LAND[address]APE ARCHITECT 05/03/2024 3:[address] LANDSCAPE ARCHITECT Kinsey Freeman APRN, C.N.P. LAB BLOOD ADD-ON Fi nal Result Performing Organization Address City/[facility]/ZIP Co de Phone Number [facility] [address] [place] [address] [facility] [place] [facility] [place] [address] [place] [address] * Creatinine with Estimated GFR (05/03/2024 11:[address] LAND[address]APE ARCHITECT) [facility] Creatinine 0.80 0.59 - 1.04 mg/dL 05/03/2024 12:[address] L[address] ARCHITECT DT Estimated GFR (eGFR) 77 >=60 mL/min/BSA 05/03/2024 12:[address] LAND[address]APE ARCHITECT DTL Comment: Estimated GFR calculated using the 2020 CKD_EPI creatinine equation. Blood (Blood, Venous) 05/03/2024 11:[address] LANDSCAPE ARCHITECT 05/03/2024 12:[address] LAND[address]APE ARCHITECT Kinsey Freeman APRN, C.N.P. LAB BLOOD ADD-ON Fi nal Result Performing Organization Address City/[facility]/ZIP Co de Phone Number [facility] [address] [place] [address], [place] DTL [facility] [address] [place] [address] * Phosphorus Inorganic (05/03/2024 11:[address] LANDSCAPE ARCHITECT) Pathologist [facility] Phosphorus (Inorganic), S 3.9 2.5 - 4.5 mg/dL 05/03/2024 12:[address] LANDSCAPE ARCHITECT DTL Blood (Blood, Venous) 05/03/2024 11:[address] LANDSCAPE ARCHITECT 05/03/2024 12:[address] LANDSCAPE ARCHITECT Kinsey Freeman APRN, C.N.P. LAB BLOOD ADD-ON Fi nal Result Performing Organization Address City/[facility] Co de Phone Number [facility] [address] [place] [address] * Calcium, Total (05/03/2024 11:[address] LAND[address]APE ARCHITECT) Calcium, Total, S 9.8 8.8 - 10.2 mg/dL 05/03/2024 12:[address] LANDSCAPE ARCHITECT DTL Blood (Blood, Venous) 05/03/2024 11:[address] LAND[address]APE ARCHITECT 05/03/2024 12:[address]AND[address]APE ARCHITECT Kinsey Freeman APRN, C.N.P. LAB BLOOD ADD-ON Fi nal Result Performing Organization Address [facility] Co de Phone Number [facility] [address] [place] [address], [facility] [address] [place] [address] * Parathyroid Hormone (PTH) (05/03/2024 11:[address] ARCHITECT) Parathyroid Hormone (PTH), S 58 15 - 65 pg/mL 05/03/2024 12:[address] LAND[address]APE ARCHITECT DTL Blood (Blood, Venous) 05/03/2024 11:[address] LAND[address]APE ARCHITECT 05/03/2024 12:[address]AND[address]APE ARCHITECT Kinsey Freeman APRN, C.N.P. LAB BLOOD ADD-ON Fi nal Result Performing Organization Address City/[facility]/ZIP Co de Phone Number [facility] [address] [place] [address], [facility] DTL [facility] [place] [address] [place] [address] * (ABNORMAL) Quantitative M-protein Study (05/03/2024 11:[address]APE ARCHITECT) Immunoglobulin A (IgA), S 132 61 - 356 mg/dL 05/03/2024 3:[address] ARCHITECT [facility] Immunoglobulin M (IgM), S 23(L) 37 - 286 mg/dL 05/03/2024 3:[address] ARCHITECT [facility] Immunoglobulin G (IgG), S 690(L) 767 - 1590 mg/dL 05/03/2024 3:[address] ARCHITECT [facility] Therapeutic Antibody Administered? Unspecified 05/03/2024 1:[address] ARCHITECT [facility] Flag, M-protein Isotype Negative Negative 05/06/2024 11:[address] ARCHITECT [facility] QMPTS Interpretation No monoclonal protein detected. 05/06/2024 11:[address] ARCHITECT [facility] Comment: ----ADDITIONAL INFORMATION---- The submitted sample was assayed by five separate immunopurifications for IgG, IgA, IgM, kappa and lambda. The result reflects the findings of either no monoclonal protein detected or those monoclonal immunoglobulins that were detected. This test was developed and its performance characteristics determined by [facility] in a manner consistent with CLIA requirements. This test has not been cleared or approved by the U.S. Food and Drug Administration. Blood (Blood, Venous) 05/03/2024 11:[address] LAND[address]APE ARCHITECT 05/03/2024 1:[address] ARCHITECT Narrative [facility] - 05/06/2024 11:[address]APE ARCHITECT Specimen Information: Specimen ID: [id number] Specimen Type: Blood Specimen Collection Start Date: 05/03/2024 11:19 AM Specimen Received Date: 05/03/2024 1:58 PM Specimen ID: [id number] Specimen Type: Blood Specimen Collection Start Date: 05/03/2024 11:19 AM Specimen Received Date: 05/03/2024 1:56 PM Kinsey Freeman APRN, C.N.P. LAB BLOOD ADD-ON Fi nal Result [facility] [address] [place] [address] [facility] [place] [facility] [place] [address] [place] [address] [facility] [address] [place] [address] [place] [address] * Celiac Disease Serology [place] (05/03/2024 11:[address] ARCHITECT) Immunoglobulin A (IgA), S 132 61 - 356 mg/dL 05/03/2024 3:[address] ARCHITECT [facility] Celiac Disease Interpretation See Comment: Negative serology. Celiac disease unlikely. However, approximately 10% of patients with celiac disease are seronegative. Also, patients who are already adhering to a gluten-free diet may be seronegative. If celiac disease is highly clinically suspected, consider HLA-DQ typing. 05/03/2024 10:[address] ARCHITECT [facility] Blood (Blood, Venous) 05/03/2024 11:[address] ARCHITECT 05/03/2024 1:[address] L[address]APE ARCHITECT Narrative [facility] - 05/03/2024 10:[address] L[address]APE ARCHITECT Specimen Information: Specimen ID: [id number] Specimen Type: Blood Specimen Collection Start Date: 05/03/2024 11:19 AM Specimen Received Date: 05/03/2024 1:58 PM Specimen ID: [id number] Specimen Type: Blood Specimen Collection Start Date: 05/03/2024 11:19 AM Specimen Received Date: 05/03/2024 1:58 PM Kinsey Freeman APRN, C.N.P. LAB BLOOD ADD-ON Fi nal Result [facility] [address] [place] [address] [facility] [place] [facility] [place] [address] [place] [address] [place] [phone] [place] [address] [place] [address] * 25-Hydroxyvitamin D2 and D3 (05/03/2024 11:[address] LAND[address]APE ARCHITECT) Pathologist [facility] 25-Hydroxy D2 <4.0 ng/mL 05/07/2024 11:[address] ARCHITECT [facility] 25-Hydroxy D3 47 ng/mL 05/07/2024 11:[address] ARCHITECT [facility] 25-Hydroxy D Total 47 ng/mL 2023 11:[address] ARCHITECT [facility] Comment: ----REFERENCE VALUE---- 25-HYDROXY D TOTAL (D2+D3) Optimum levels in the healthy population are 20-50. ----ADDITIONAL INFORMATION---- This test was developed and its performance characteristics determined by [facility] in a manner consistent with CLIA requirements. This test has not been cleared or approved by the U.S. Food and Drug Administration. Blood (Blood, Venous) 05/03/2024 11:[address] LAND[address]APE ARCHITECT 05/03/2024 1:[address] ARCHITECT Kinsey Freeman APRN, C.N.P. LAB BLOOD ADD-ON Fi nal Result [facility] [address] [place] [address] [facility] [address] [place] [address] [place] [address] documented in this encounter Visit Diagnoses Diagnosis Stenosis Spinal- Primary Osteoporosis Stenosis Spinal documented in this encounter Additional Health Concerns Assessment Noted Time PHQ-9 Depression Total Score: 5 01/04/20 24 3:57 AM CDT documented as of this encounter Care Teams Mother Superior Relationship Specialty Start Date End Date Elsewhere, Pcp PCP - General Internal Medicine 05/10/22 documented as of this encounter
--- OUTSIDE RECORDS SUMMARY | 2024-05-21 14:01 | XMS_ITS | Encounter Summary ---
Author Organization [facility] Address [address] [place] [address] Care Team Providers Care Knitting Inspector Name Role Phone Elsewhere, Pcp Primary Care Provider Unavailabl e Reason for Referral * Outpatient (Routine) - Authorized Specialty Diagnoses / Procedures Referred By Contac t Referred To Contact Endocrinology Diagnoses Osteoporosis Kinsey Freeman APRN, C.N.P. [address] [place] [address] Phone: tel: fax: [facility] Referral ID Status Reason Start Date Expiration Date V isits Requested Visits Authorized [id number] Authorized 04/29/2024 10/29/2025 1 1 IFED REFRIGERATION OPERATOR * Outpatient (Routine) - Authorized Specialty Diagnoses / Procedures Referred By Contac t Referred To Contact Diagnoses Osteoporosis Procedures BMD Bone Density Spine Hips Kinsey Freeman APRN, C.N.P. [address] [place] [address] Phone: tel: fax: [facility] Referral ID Status Reason Start Date Expiration Date V isits Requested Visits Authorized [id number] Authorized 04/29/2024 04/29/2025 1 1 IFED REFRIGERATION OPERATOR Reason for Visit * Outpatient (Routine) - Closed Specialty Diagnoses / Procedures Referred By Chanel segovia Referred To Contact Endocrinology Diagnoses Osteopenia Arianna Jeffries M.D. [address] [place] [address] Phone: tel: fax: [facility] Referral ID Status Reason Start Date Expiration Date Visits Re quested Visits Authorized [id number] Closed 04/12/2024 10/12/2025 1 1 Encounter Details Date Type Department Care Team (Latest Contact Info) Description 04/29/2024 1:00 PM CERTIFED REFRIGERATION OPERATOR Telemedicine Division of Endocrinology in [place], [place] [address] [place] [address] Kinsey Freeman APRN, C.N.P. [address] [place] [phone] Osteoporosis (Primary Dx); Osteopenia Social History Tobacco Use Types Packs/Day Years Used Date Smoking Tobacco: Former Cigarettes 0 10/03/1966 - 03/05/1974 Passive Smoke Exposure: Never Smokeless Tobacco: Never Alcohol Use Standard Drinks/Week Comments Yes 10 (1 standard drink = 0.6 oz pu re alcohol) [facility] Utilities Answer Date Recorded In the past 12 months has [facility] [email or web address], gas, oil, or water [employer] threatened to shut off services in your [...] 08/15/2022 How often do you attend chur ch or protestant services? More than 4 times per year 08/15/2022 Do you belong to any clubs o r organizations such as tenriism groups, unions, fraternal or athletic groups, or [...] Answer Date Recorded PHQ-2 Score 2 01/04/2024 [facility] of Occupat ional Health - Occupational Stress Questionnaire Answer Date [...] your living situation today? I have a [facility] place to live 12/01/2023 Education Answer Date Recorded What is the highest level of school you have completed or the highest degree you have received? Bachelor's degree (e.g., BA, AB, BS) 08/15/2022 Comments No Sex and Gender Information Value Date Recorded Sex Assigned at Female 05/11/2022 7:48 AM CERTIFED REFRIGERATION OPERATOR Legal Sex Female 9:30 PM CERTIFED REFRIGERATION OPERATOR Gender Identity Female 05/11/2022 7:48 AM CERTIFED REFRIGERATION OPERATOR Sexual Orientation Straight 05/11/2022 7: 48 AM CERTIFED REFRIGERATION OPERATOR documented as of this encounter Consult Notes * Kinsey Freeman APRN, C.N.P. - 04/29/2024 1:00 PM CST [facility] Endocrinology, Diabetes, and Nutrition Diabetes Clinic Date of Visit: 04/29/2024 Clinician: Kinsey Freeman APRN, C.N.P. SUBJECTIVE CHIEF COMPLAINT / REASON FOR VISIT Asked by Arianna Jeffries M.D. to evaluate osteoporosis in this 74 y.o. female. Consult conducted via real-time audio/video technology by Kinsey Freeman APRN, C.N.P. in [facility] to the patient in the patient's home. HISTORY OF PRESENT ILLNESS Gladys Zamarripa is a very pleasant 74 y.o. female. Patient's medical history is significant for cervical myelopathy, lumbar stenosis, gastric ulcer, atrial fibrillation, cardiomyopathy, hyper lipidemia, hypertension, melanoma, and prediabetes. She states she is doing well at this time, without specific complaints. She is unaccompanied at the time of this visit. #1 Osteoporosis Gladys is scheduled for C1 through C2 fusion on June 03 in the setting of cervical myelopathy. She has history of decompression and lumbar fusion performed here by Dr. Hahn and Dr. Zheng on 2022 . Patient reports she had a bone density performed locally last week. Unfortunately those results are not available. Her previous bone density was May 16, 2022 also at outside facility,which demonstrated T-scores at her left femoral neck -1.8, left total hip -1.7, right femoral neck -1.7, right total hip -1.3, and lumbar spine +0.8. This represented a -9.0% change at her left femoral neck, -11.1% left total hip, +15.0% at her right femoral neck, +8.9% right total hip, and -5.4% at her lumbar spine when compared to previous,which was in 2019. She has history of a tibial plateau fracture which occurred approximately 18 months ago when she fell from standing height onto her knee. She has not previously been on any form of anti resorptive oranabolic therapies. CT lumbar spine on April 08, 2024 demonstrated subacute to chronic fractures along the transverse processes of L1 and L2 vertebra, which were new when compared to CT May 01, 2023. No evidenceof hardware failure or loosening. Lumbar spine x-ray also dated April 08, 2024 demonstrates old post-traumatic deformity of her distal sacrum. RISK FACTORS FOR OSTEOPOROSIS/OSTEOPOROTIC FRACTURE: Medications affecting bone health - intraarticular injections Family history of osteopenia/osteoporosis - No Kidney stones or hypercalcemia/hypercalciuria - x 1 in late 1969's Significant gastrointestinal surgery - No Diarrhea/malabsorption - No Weight loss - No Tobacco use - remote history, quit in 1973 Alcohol use - No Hypogonadism - menopause between [age], no history of hormone replacement therapy Transplantation - No Hyperthyroidism - No Rheumatoid arthritis - No NUTRITION/FITNESS: Dietary calcium intake: yogurt 1/2 cup per day and one serving of cheese daily Calcium and vitamin D supplementation: Calcium carbonate 600 mg once daily and vitamin-D a 1000 International Unit once daily Activity/Exercise: currently recovering from hernia surgery, prior to that she was attending aquasize classes routinely. She also does physical therapy exercises to strengthen her right hip. She reports she has had improvement in her balance since lumbar surgery last August. She has not had any falls in the past year. She receives routine dental care twice yearly and does not anticipate need for any major dental procedures. The following portions of the patient's history were reviewed and updated as appropriate: allergies, current medications, family history, medical history, social history, surgical history and problemlist. REVIEW OF SYSTEMS REVIEW OF SYSTEMS OBJECTIVE VITAL SIGNS There were no vitals taken for this visit. PHYSICAL EXAMINATION General: Pleasant female, no apparent distress. Mental: Alert and oriented. Interactive and answers questions appropriately. DIAGNOSTICS Lab Results Component Value Date CALCIUM 9.5 03/27/2024 ALBUMIN 3.6 10/31/2023 CREATININE 0.70 03/27/2024 EGFR 88 01/08/2024 ALKPHOS 59 10/31/2023 ASSESSMENT / PLAN Gladys Zamarripa is a 74 y.o. female who presents for evaluation of endocrine issues. I have recommended the following orders: #1 Osteoporosis Gladys meets criteria for diagnosis of osteoporosis based on L1 and L2 vertebral fractures and tibialplateau fracture. She will request her recent bone density be sent here once again. I will attach orders to have her complete additional laboratory studies locally and will contact her via patient portal with those results and recommendations. Discussed recommendation to initiate anabolic therapy. Given her surgery is scheduled for June 03, recommend Evenity therapy due to more rapid onset of action. There is strong evidence demonstrating superior outcomes, earlier bone union, and reduced incidence of screw loosening with this classof therapy over anti-resorptives following spinal surgery. I will fax order to [facility], attn: Dr. Christine Rodriguez. She was informed that this will require 2 subcutaneous injections approximately every 28 days. Typical course of therapy is 12 doses, however could consider an abbreviated course of therapy if that would meet needs from surgical perspective. Ideally would like for herto receive her first injection prior to leaving for [place] next Akira, if not she will arrange forher first dose as soon as possible after she returns on 05/17. Discussed importance of transitioning to an antiresorptive agent at the end of her course of therapy in order to preserve gains made. She was encouraged to attempt to achieve 1200 mg of calcium daily between diet and supplement. I will place orders for repeat bone density (to be performed at [facility]), return visit, labs, and Reclast infusion in one year. She will notify me if decision is made to stop Evenity prior to that timeframe. ADDENDUM: Received results of outside bone density which was performed on 04/22/24. T- scores at her left femoral neck -2.4, left total hip -2.2, right femoral neck - 2.4, right total hip -2.0 and distal radius -2.2. This represents a -10.9% change at her left femoral neck, -8.9% at left total hip, -12.2% rightfemoral neck, and -10.9% at her right total hip when compared to previous, which was May 16, 2022. She has had statistically significant decline in bone density at all hip sites. Patient notified via patient portal and will contact her once again once I receive laboratory test results. I spent a total of 55 minutes with patient, record review, and coordination of care. All questions were answered and patient verbalizes understanding. IFED REFRIGERATION OPERATOR IFED REFRIGERATION OPERATOR documented in this encounter Plan of Treatment Upcoming Encounters Date Type Department Care Team (Latest Contact Info) Description 05/29/2024 12:15 PM CERTIFED REFRIGERATION OPERATOR Clinical Communication Virtual Review in [place], [place] [address] [place] [address] 05/31/2024 11:00 AM CERTIFED REFRIGERATION OPERATOR Appointment Department of Laboratory Medicine and Pathology, [facility], in [place], [place] [address] [place] [phone] Patricia Parker APRN, C.N.P., D.N.P. [address] [place] [phone] 05/31/2024 2:00 PM CERTIFED REFRIGERATION OPERATOR Comprehensive Visit Preoperative Evaluation Center in [place], [place] [address] [place] [phone] Arianna Jeffries M.D. [address] [place] [phone] 05/31/2024 2:45 PM CERTIFED REFRIGERATION OPERATOR Comprehensive Visit Preoperative Evaluation Center in [place], [place] [address] [place] [phone] Chris Moreno, JOHNSON, C.N.P., M.S. [address] [place] [phone] 06/03/2024 8:15 AM CERTIFED REFRIGERATION OPERATOR Hospital Encounter Post Anesthesia Care Unit in [place] [id number] [place] [phone] Tahir Moore M.D. [address] [place] [phone] 06/03/2024 8:15 AM CERTIFED REFRIGERATION OPERATOR - 06/03/2024 2:12 PM CERTIFED REFRIGERATION OPERATOR Surgery [facility]IN OR [address] [place] [phone] Tahir Moore M.D. [address] [place] [phone] C1-2 fusion 07/02/2024 11:00 AM CERTIFED REFRIGERATION OPERATOR Procedure visit Division of Pain Medicine in [place], [place] [address] [place] [phone] Adam Barlow M.D. [address] [place] [phone] Scheduled Orders Name Type Priority Associated Diagnoses Orde r Schedule BMD Bone Density Spine Hips Imaging RAD - Routine (most inpatients and all outpatients) Osteoporosis Expected: 04/29/2025, Expires: 07/28/2025 Scheduled Procedures Name Priority Associated Diagnoses Date/Ti me 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 06/03/2024 8:15 AM CERTIFED REFRIGERATION OPERATOR Scheduled Referrals Name Type Priority Associated Diagnoses Order Schedule Endocrinology office visit (clinic) Outpatient Referral Routine Osteoporosis Expected: 04/29/2025, Expires: 07/28/2025 documented as of this encounter Results * Creatinine with Estimated GFR (05/03/2024 11:19 AM CERTIFED REFRIGERATION OPERATOR) Creatinine 0.80 0.59 - 1.04 mg/dL 05/03/2024 12:29 PM CERTIFED REFRIGERATION OPERATOR DTL Estimated GFR (eGFR) 77 >=60 mL/min/BSA 05/03/2024 12:29 PM CERTIFED REFRIGERATION OPERATOR DTL Comment: Estimated GFR calculated using the 2020 CKD_EPI creatinine equation. Blood (Blood, Venous) 05/03/2024 11:19 AM CERTIFED REFRIGERATION OPERATOR 05/03/2024 12:02 PM CERTIFED REFRIGERATION OPERATOR Kinsey Freeman APRN, C.N.P. LAB BLOOD ADD-ON Fi nal Result Performing Organization Address City/[facility]/ZIP Co de Phone Number [facility] [address] [place] [address] * Phosphorus Inorganic (05/03/2024 11:19 AM CERTIFED REFRIGERATION OPERATOR) Phosphorus (Inorganic), S 3.9 2.5 - 4.5 mg/dL 05/03/2024 12:29 PM CERTIFED REFRIGERATION OPERATOR DTL Blood (Blood, Venous) 05/03/2024 11:19 AM CERTIFED REFRIGERATION OPERATOR 05/03/2024 12:02 PM CERTIFED REFRIGERATION OPERATOR Kinsey Freeman APRN, C.N.P. LAB BLOOD ADD-ON Fi nal Result Performing Organization Address City/[facility]/ZIP Co de Phone Number [facility] [address] [facility] [address] [place] [address] * Calcium, Total (05/03/2024 11:19 AM CERTIFED REFRIGERATION OPERATOR) Calcium, Total, S 9.8 8.8 - 10.2 mg/dL 05/03/2024 12:29 PM CERTIFED REFRIGERATION OPERATOR DTL Blood (Blood, Venous) 05/03/2024 11:19 AM CERTIFED REFRIGERATION OPERATOR 05/03/2024 12:02 PM CERTIFED REFRIGERATION OPERATOR Kinsey Freeman APRN, C.N.P. LAB BLOOD ADD-ON Fi nal Result [facility] [address] [place] [address], [facility] [address] [place] [address] * Parathyroid Hormone (PTH) (05/03/2024 11:19 AM CERTIFED REFRIGERATION OPERATOR) Parathyroid Hormone (PTH), S 58 15 - 65 pg/mL 05/03/2024 12:29 PM CERTIFED REFRIGERATION OPERATOR DTL Blood (Blood, Venous) 05/03/2024 11:19 AM CERTIFED REFRIGERATION OPERATOR 05/03/2024 12:02 PM CERTIFED REFRIGERATION OPERATOR Kinsey Freeman APRN, C.N.P. LAB BLOOD ADD-ON Fi nal Result Performing Organization Address City/[facility]/ZIP Co de Phone Number [facility] [address] [place] [address], [facility] [address] [place] [address] * (ABNORMAL) Quantitative M-protein Study (05/03/2024 11:19 AM CERTIFED REFRIGERATION OPERATOR) Immunoglobulin A (IgA), S 132 61 - 356 mg/dL 05/03/2024 3:22 PM CERTIFED REFRIGERATION OPERATOR [facility] Immunoglobulin M (IgM), S 23(L) 37 - 286 mg/dL 05/03/2024 3:23 PM CERTIFED REFRIGERATION OPERATOR [facility] Immunoglobulin G (IgG), S 690(L) 767 - 1590 mg/dL 05/03/2024 3:22 PM CERTIFED REFRIGERATION OPERATOR [facility] Therapeutic Antibody Administered? Unspecified 05/03/2024 1:56 PM CERTIFED REFRIGERATION OPERATOR [facility] Flag, M-protein Isotype Negative Negative 05/06/2024 11:48 AM CERTIFED REFRIGERATION OPERATOR [facility] QMPTS Interpretation No monoclonal protein detected. 05/06/2024 11:48 AM CERTIFED REFRIGERATION OPERATOR [facility] Comment: ----ADDITIONAL INFORMATION---- The submitted sample was assayed by five separate immunopurifications for IgG, IgA, IgM, kappa and lambda. The result reflects the findings of either no monoclonal protein detected or those monoclonal immunoglobulins that were detected. This test was developed and its performance characteristics determined by [facility] in a manner consistent with CLIA requirements. This test has not been cleared or approved by the U.S. Food and Drug Administration. Blood (Blood, Venous) 05/03/2024 11:19 AM CERTIFED REFRIGERATION OPERATOR 05/03/2024 1:58 PM CERTIFED REFRIGERATION OPERATOR Narrative [facility] - 05/06/2024 11:48 AM CERTIFED REFRIGERATION OPERATOR Specimen Information: Specimen ID: [id number] Specimen Type: Blood Specimen Collection Start Date: 05/03/2024 11:19 AM Specimen Received Date: 05/03/2024 1:58 PM Specimen ID: [id number] Specimen Type: Blood Specimen Collection Start Date: 05/03/2024 11:19 AM Specimen Received Date: 05/03/2024 1:56 PM Kinsey Freeman APRN, C.N.P. LAB BLOOD ADD-ON Fi nal Result [place] [address] [place] [address] [facility] [address] [place] [address] [facility] [address] [place] [facility] [place] [address] * Celiac Disease Serology [place] (05/03/2024 11:19 AM CERTIFED REFRIGERATION OPERATOR) Immunoglobulin A (IgA), S 132 61 - 356 mg/dL 05/03/2024 3:22 PM CERTIFED REFRIGERATION OPERATOR [facility] Celiac Disease Interpretation See Comment: Negative serology. Celiac disease unlikely. However, approximately 10% of patients with celiac disease are seronegative. Also, patients who are already adhering to a gluten-free diet may be seronegative. If celiac disease is highly clinically suspected, consider HLA-DQ typing. 05/03/2024 10:55 PM CERTIFED REFRIGERATION OPERATOR [facility] Blood (Blood, Venous) 05/03/2024 11:19 AM CERTIFED REFRIGERATION OPERATOR 05/03/2024 1:58 PM CERTIFED REFRIGERATION OPERATOR Narrative [facility] - 05/03/2024 10:55 PM CERTIFED REFRIGERATION OPERATOR Specimen Information: Specimen ID: [id number] Specimen Type: Blood Specimen Collection Start Date: 05/03/2024 11:19 AM Specimen Received Date: 05/03/2024 1:58 PM Specimen ID: [id number] Specimen Type: Blood Specimen Collection Start Date: 05/03/2024 11:19 AM Specimen Received Date: 05/03/2024 1:58 PM Kinsey Freeman APRN, C.N.P. LAB BLOOD ADD-ON Fi nal Result [facility] [address] [place] [address] [facility] [address] [place] [address] [place] [facility] [place] [address] * 25-Hydroxyvitamin D2 and D3 (05/03/2024 11:19 AM CERTIFED REFRIGERATION OPERATOR) [facility] 25-Hydroxy D2 <4.0 ng/mL 05/07/2024 11:37 AM [facility] 25-Hydroxy D3 47 ng/mL 05/07/2024 11:37 AM [facility] 25-Hydroxy D Total 47 ng/mL 2023 11:37 AM [facility] Comment: ----REFERENCE VALUE---- 25-HYDROXY D TOTAL (D2+D3) Optimum levels in the healthy population are 20-50. ----ADDITIONAL INFORMATION---- This test was developed and its performance characteristics determined by [facility] in a manner consistent with CLIA requirements. This test has not been cleared or approved by the U.S. Food and Drug Administration. Blood (Blood, Venous) 05/03/2024 11:19 AM CERTIFED REFRIGERATION OPERATOR 05/03/2024 1:51 PM CERTIFED REFRIGERATION OPERATOR us Kinsey Freeman APRN, C.N.P. LAB BLOOD ADD-ON Fi nal Result [facility] [address] [place] [address] [facility] [address] [place] [address] [place] [address] documented in this encounter Visit Diagnoses Diagnosis Stenosis Spinal- Primary Osteoporosis- Primary Osteopenia Osteoporosis Stenosis Spinal documented in this encounter Additional Health Concerns Assessment Noted Time PHQ-9 Depression Total Score: 5 01/04/20 24 3:57 AM CDT documented as of this encounter Care Teams Knitting Inspector Relationship Specialty Start Date End Date Elsewhere, Pcp PCP - General Internal Medicine 05/10/22 documented as of this encounter
--- OUTSIDE RECORDS SUMMARY | 2024-05-21 14:01 | XMS_ITS | Clinical Summary ---
Author Organization [facility] Address [address] [place] [address] Care Team Providers Care Vending Machine Host/Hostess Name Role Phone Elsewhere, Pcp Primary Care Provider Unavailabl e Source Comments Patient records contain information from all sites at [facility]. For routine questions regarding patient records, call [phone] during business hours, M-F 8:00 AM - 5:00 PM Central Time. Record requests for emergency care only can be directed to [phone] at any time.[facility] Allergies No known active allergies Medications * This document contains information received from the source organization and may not represent a complete record from that organization. allopurinoL (ZYLOPRIM) 300 mg tablet Take 150 mg by mouth daily. Active atorvastatin (LIPITOR) 20 mg tablet Take 20 mg by mouth daily. Active buPROPion XL (WELLBUTRIN XL) 150 mg 24 hr tablet Take 150 mg by mouth daily. Active ferrous sulfate 325 mg (65 mg iron) tablet Take 325 mg by mouth 3 (three) times a week. Monday, Monday, Monday Active magnesium oxide (MAG-OX) 400 mg (241.3 mg magnesium) tablet Take 1 tablet by mouth daily. Active omeprazole (PriLOSEC) [address] capsule Take 20 mg by mouth every morning before breakfast. Active calcium carbonate 1,500 mg (600 mg calcium) tablet Take 1 tablet by mouth daily. Active cyanocobalami n (VITAMIN B12) 1,000 mcg/mL injection Inject 1,000 mcg intramuscularly every 30 (thirty) days. Active rivaroxaban (XARELTO) 20 mg tablet Take 1 tablet (20 mg total) by mouth daily. Okay to start retaking 1 week after surgery 60 tablet 1 Active acetaminophen (TYLENOL) 500 mg tablet Take 1,000 mg by mouth every 8 (eight) hours. Active gabapentin (NEURONTIN) 300 mg capsule Take 300 mg by mouth 4 (four) times a day. Active carvediloL (COREG) 12.5 mg tablet Take 2 tablets by mouth 2 (two) times a day with meals. Active aspirin 81 mg chewable tablet Chew 1 tablet (81 mg total) daily. Active furosemide (LASIX) 20 mg tablet Take 2 tablets (40 mg total) by mouth 2 (two) times a day for 7 days, THEN 1 tablet (20 mg total) 2 (two) times a day for 7 days, THEN 1 tablet (20 mg total) daily for 14 days. Continuation per discretion of PCP.. 56 tablet Active Additional Information Patient taking differently: 1 tablet daily, Reported on 04/05/2024 lisinopriL (PRINIVIL,ZES TRIL) 5 mg tablet Take 1 tablet (5 mg total) by mouth 2 (two) times a day. 60 tablet Active potassium chloride (K-TAB) 20 mEq CR tablet Take 20 mEq by mouth daily. Active cholecalcifer ol, vitamin D3, 25 mcg (1,000 Unit) tablet Take 25 mcg by mouth daily. Active pediatric multivitamin- iron-minerals (FLINTSTONES COMPLETE) chewable tablet Chew 1 tablet daily. 360 tablet 2024 Active propafenone (RythmoL SR) 225 mg 12 hr capsule Take 225 mg by mouth every 12 (twelve) hours. Active spironolacton e (Aldactone) 25 mg tablet Take 0.5 tablets by mouth daily. Active triamcinolone (Kenalog) 0.1 % ointment Apply topically as needed for rash. Active erythromycin (Romycin) 5 mg/gram (0.5 %) ophthalmic ointment Apply 1 strip to affected eye(s). Active romosozumab-a qqg (Evenity) 210mg/2.34mL ( 105mg/1.17mLx 2) injection Inject 2.34 mL (210 mg total) under the skin every 28 (twenty-eight) days. 2.34 mL 11 Active HYDROcodone-a cetaminophen (Mcbee) 5-325 mg per tablet Take 1 tablet by mouth every 6 (six) hours as needed. 2023 Discontinued romosozumab-a qqg (Evenity) 210mg/2.34mL ( 105mg/1.17mLx 2) injection Inject 2.34 mL (210 mg total) under the skin every 28 (twenty-eight) days. 2.34 mL 11 2023 Discontinued Active Problems Problem Noted Date Diagnosed Date Osteoporosis 04/29/2024 Follow Up Examination Postoperative Visit 2023 Seroma Initial 12/07/2023 Pancytopenia 10/31/2023 Hyponatremia 08/11/2023 Chronic Systolic (Congestive) Heart Failure 07/20 Repair Mitral Valve Status Post 08/07/2023 Anemia Posthemorrhagic Acute (Blood Loss Anemia) 08/07/2023 Leukocytosis 08/07/2023 Alcohol Mild Use Disorder (Abuse) Uncomplicated 08/03/2023 Regurgitation Mitral 05/25/2023 Preoperative Examination Cardiovascular 05/25/19 24 Spinal Stenosis Lumbar Regio n Without Neurogenic Claudication 08/31/2022 Anemia 08/22/2022 Assessment & Plan (08/22/2022 12:06 PM CDT): H/H 07/21/2022 8.5/25.6 care provider. Primary care provider completed iron labs and she was not shown to be iron deficient. B12 was shown to be low and she was started on B12 injections. 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 She has not had any episodes of atrial fibrillation since her cardioversion. Noted to be mildly tachycardic at 106 beats per minute at today's visit. -she was instructed to hold her Xarelto 3 days prior to the procedure (last dose should be given Monday08/27/2022) -continue coreg twice daily without interruption Cardiomegaly 06/13/2022 Major Depressive Disorder, Recurrent, Unspecifie d 05/29/2022 Assessment & Plan (08/22/2022 12:13 PM CDT): Continue Wellbutrin uninterrupted. Malignant Neoplasm Of Skin Squamous Cell Carcino ma 06/05/2017 Overview (08/03/2023): Left thumb x2 (radiation), back Deficiency Vitamin D 05/06/2011 Hyperlipidemia 08/23/2006 Assessment & Plan (08/22/2022 12:14 PM CDT): Continue Lipitor uninterrupted. Hypertension Essential Primary 08/23/2006 Assessment & Plan (08/22/2022 12:15 PM CDT): Blood pressure controlled at today's visit. Treated with twice daily lisinopril. Hold lisinopril 24 hours prior to procedure. Osteoarthritis 08/23/2006 Resolved Problems Problem Noted Date Diagnosed Date Resolved Date Bleed Postoperative Initial 08/08/2023 08/11/2023 Pain Postoperative 08/08/2023 Acidosis Lactic 08/08/2023 08/11/2023 Hypokalemia 08/07/2023 08/11/2023 Failure Heart Biventricular 06/30/2023 08/03/2023 Gastroesophageal Reflux Dise ase Without Esophagitis 08/22/2022 08/03/2023 Assessment & Plan (08/22/2022 12:31 PM CDT): Taking Prilosec. She discontinued the Prilosec approximately 1 month ago when her primary care provider told her that her B12 was low and that the Prilosec might be inhibiting the B12 absorption. She reports that her acid reflux is well controlled without her medication. Atypical Atrial Flutter 05/06/202107/20 Cardiomyopathy Stress Induced 05/06/2021 08/03/2023 Overview (06/13/2022): - 05/05/2021 EKG with T-wave inversion and new decrement in LVEF to 25% Assessment & Plan (08/22/2022 12:14 PM CDT): Euvolemic on today's exam. Recent echocardiogram with an EF of 70%. Continue Coreg uninterrupted. Hold spironolactone 24 hours prior to her procedure. PreDiabetes 06/05/2018 08/03/2023 Acute Gastric Ulcer Without Hemorrhage Or Perforation 10/16/2009 08/03/2023 Pain Cervical 08/23/2006 08/03/2023 Encounters Date Type Department Care Team Description 05/03/2024 10:53 AM COMMUNICATIONS STATION MANAGER - 05/03/2024 11:59 PM COMMUNICATIONS STATION MANAGER Hospital Encounter Department of Laboratory Medicine and Pathology, [facility], in [place], [place] [address] [place] [phone] Kinsey Freeman APRN, C.N.P. Osteoporosis Discharge Disposition: Home or Self Care 05/01/2024 Clinical Communication Division of Endocrinology in [place], [place] [address] [place] [phone] Kinsey Freeman APRN, C.N.P. 05/01/2024 Clinical Communication Department of Neurologic Surgery in [address] [phone] Arianna Jeffries M.D. OSM - Outside Materials 05/01/2024 Clinical Communication Division of Endocrinology in [address] [phone] Kinsey Freeman APRN, C.N.P. Follow-up Orders 04/29/2024 1:00 PM COMMUNICATIONS STATION MANAGER Telemedicine Division of Endocrinology in [address] [phone] Kinsey Freeman APRN, C.N.P. Osteoporosis (Primary Dx); Osteopenia 04/26/2024 Orders Only Preoperative Evaluation Center in [address] [phone] Vanesa Rayo M.S.N., R.N. Anemia Of Chronic Disease (Primary Dx) 04/26/2024 Orders Only Preoperative Evaluation Center in [address] [phone] Chris Moreno APRN, C.N.P., M.S. Preanesthetic Medical Exam (Primary Dx); Anemia 04/24/2024 8:00 AM COMMUNICATIONS STATION MANAGER Office Visit Department of Spine in [address] [phone] Rancho Larson P.A.-C., M.S. Fusion Lumbar Spine Status Post (Primary Dx); Pain Hip Right 04/08/2024 3:30 PM COMMUNICATIONS STATION MANAGER Office Visit Department of Neurologic Surgery in [address] [phone] Arianna Jeffries M.D. Pain Hip Right (Primary Dx); Osteoarthritis; Osteopenia 04/08/2024 8:47 AM COMMUNICATIONS STATION MANAGER - 04/08/2024 11:59 PM COMMUNICATIONS STATION MANAGER Hospital Encounter Department of Radiology, [facility] in [place], [place] [address] [place] [phone] Nelson Esqueda M.D. Abnormal Gait Non Orthopedic; Fusion Lumbar Spine Status Post Discharge Disposition: Home or Self Care 04/08/2024 8:13 AM COMMUNICATIONS STATION MANAGER - 04/08/2024 8:46 AM COMMUNICATIONS STATION MANAGER Hospital Encounter Department of Radiology, [place], [place] [address] [place] [phone] Nelson Esqueda M.D. Fusion Lumbar Spine Status Post; Abnormal Gait Non Orthopedic Discharge Disposition: Home or Self Care 04/08/2024 7:56 AM COMMUNICATIONS STATION MANAGER - 04/08/2024 8:12 AM COMMUNICATIONS STATION MANAGER Hospital Encounter Department of Radiology, [place], [place] [address] [place] [phone] Nelson Esqueda M.D. Abnormal Gait Non Orthopedic Discharge Disposition: Home or Self Care 04/08/2024 7:45 AM COMMUNICATIONS STATION MANAGER - 04/08/2024 7:55 AM COMMUNICATIONS STATION MANAGER Hospital Encounter Department of Radiology, [facility], in [place], [place] [address] [place] [phone] Nelson Esqueda M.D. Fusion Lumbar Spine Status Post Discharge Disposition: Home or Self Care 04/05/2024 3:15 PM COMMUNICATIONS STATION MANAGER Clinical Communication Virtual Review in [place], [place] [address] [place] [address] Pre-visit Intake from Last 3 Months Family History Medical History Relation Name Comments Other cancer Brother 1 Suman Jauregui Multiple myelo ma Heart attack Brother 2 Viral Heart attack Brother 3 Casper Bladder cancer Brother 4 Arcadio Heart attack Brother 4 Arcadio Prostate cancer Father Milan Jauregui Lung cancer Mother Joyce Landa Coronary artery disease Paternal Grandfather Heart attack Paternal Grandfather Relation Name Status Comments Brother 1 Suman Jauregui Alive Brother 2 Viral Alive Brother 3 Casper Alive Brother 4 Arcadio Alive Brother 5 Chavez Alive Father Milan Jauregui Mother Joyce Landa Paternal Grandfather Social History Tobacco Use Types Packs/Day Years Used Date Smoking Tobacco: Former Cigarettes 0 10/03/1966 - 03/05/1974 Passive Smoke Exposure: Never Smokeless Tobacco: Never Tobacco Cessation:Counseling Given: Not Answered Alcohol Use Standard Drinks/Week Comments Yes 10 (1 standard drink = 0.6 oz pu re alcohol) [facility] Utilities Answer Date Recorded In the past 12 months has e SMIC, gas, oil, or water company threatened to [...] often do you attend chur ch or methodist services? More than 4 times per year 08/15/2022 Do you belong to any clubs o r organizations such as jewish groups, unions, fraternal or athletic groups, or [...] Answer Date Recorded PHQ-2 Score 2 01/04/2024 [facility] - Occupational Stress Questionnaire Answer Date Recorded [...] your living situation today? I have a [facility] place to live 12/01/2023 Education Answer Date Recorded What is the highest level of school you have completed or the highest degree you have received? Bachelor's degree (e.g., BA, AB, BS) 08/15/2022 Comments No Sex and Gender Information Value Date Recorded Sex Assigned at Female 05/11/2022 7:48 AM COMMUNICATIONS STATION MANAGER Legal Sex Female 9:30 PM COMMUNICATIONS STATION MANAGER Gender Identity Female 05/11/2022 7:48 AM COMMUNICATIONS STATION MANAGER Sexual Orientation Straight 05/11/2022 7: 48 AM COMMUNICATIONS STATION MANAGER Last Filed Vital Signs Vital Sign Reading Time Taken Comments Blood Pressure 117/75 04/24/2024 8:02 AM COMMUNICATIONS STATION MANAGER Pulse 88 04/24/2024 8:02 AM COMMUNICATIONS STATION MANAGER Temperature 36.5 C (97.7 F) 01/09/2024 9:50 AM CDT Respiratory Rate 16 01/09/2024 11:05 AM CDT Oxygen Saturation 95% 04/08/2024 11:16 AM COMMUNICATIONS STATION MANAGER Inhaled Oxygen Concentration - - Weight 62 kg (136 lb 11 oz) 01/09/2024 6:18 AM C DT Height 160.5 cm (5' 3.19) 01/09/2024 6:18 AM CD T Body Mass Index 24.07 01/09/2024 6:18 AM CDT Plan of Treatment Upcoming Encounters Date Type Department Care Team (Latest Contact Info) Description 05/29/2024 12:15 PM COMMUNICATIONS STATION MANAGER Clinical Communication Virtual Review in [address] [phone] 05/31/2024 11:00 AM COMMUNICATIONS STATION MANAGER Appointment Department of Laboratory Medicine and Pathology, [facility] in [address] [phone] Patricia Parker APRN, C.N.P., D.N.P. [address] [place] [phone] 05/31/2024 2:00 PM COMMUNICATIONS STATION MANAGER Comprehensive Visit Preoperative Evaluation Center in [address] [phone] Arianna Jeffries M.D. [address] [place] [phone] 05/31/2024 2:45 PM COMMUNICATIONS STATION MANAGER Comprehensive Visit Preoperative Evaluation Center in [address] [place] [phone] Chris Moreno, JOHNSON, C.N.P., M.S. [address] [place] [phone] 06/03/2024 8:15 AM COMMUNICATIONS STATION MANAGER Hospital Encounter Post Anesthesia Care Unit in [place], [place] [address] [place] [phone] Tahir Moore M.D. [address] [place] [phone] 06/03/2024 8:15 AM COMMUNICATIONS STATION MANAGER - 06/03/2024 2:12 PM COMMUNICATIONS STATION MANAGER Surgery [facility] MAIN OR [address] [place] [phone] Tahir Moore M.D. [address] [place] [phone] C1-2 fusion 07/02/2024 11:00 AM COMMUNICATIONS STATION MANAGER Procedure visit Division of Pain Medicine in [place], [place] [address] [place] [phone] Adam Barlow M.D. [address] [place] [phone] Scheduled Procedures Name Priority Associated Diagnoses Date/Ti me 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 06/03/2024 8:15 AM COMMUNICATIONS STATION MANAGER Health Maintenance Due Date Last Done Comments CT Colonography 1950 Cologuard 1950 FIT 1950 RSV vaccine - (32-36 weeks) or 60+ years (1 - Risk 60-74 years 1-dose series) 2010 Depression Monitoring (PHQ-9 for quality tracking) 05/22/2023 Depression Monitoring (PHQ-9) 05/05/2024 01/04/2024 Mammogram 02/26/2025 02/27/2024, 1012/2023, 11/10/2022, Additional history exists Fasting Glucose for Diabetes Screening 03/27/2025 03/27/2024, 02/13/2024, 01/08/2024, Additional history exists Potassium Level 03/27/2025 03/27/2024, 01/21, 02/13/2024, Additional history exists Sodium Level 03/27/2025 03/27/2024, 01/21, 01/08/2024, Additional history exists Office Visit for Blood Pressure Check / Re-check 04/24/2025 04/24/2024 Creatinine Level (Kidney Function Test) 05/03/2025 05/03/2024, 03/27/2024, 02/13/2024, Additional history exists DTaP,Tdap,and Td Vaccines (3 - Td or Tdap) 06/05/2027 06/05/2017, 09/25/2007, 01/21/2005 Colonoscopy 11/16/2027 11/15/2017 Colorectal Cancer Screening 11/16/2027 Lipid (Cholesterol) Screening 10/30/2028 10/31/2023, 04/25/2022, 02/16/2021, Additional history exists Pneumococcal vaccine (50+ years) Completed 06/05/2017, 07/28/2015, 03/14/2013 Zoster Vaccines Completed 12/14/2017, 08/20, 07/09/2010 Influenza Vaccine Completed 02/08/2024, , 02/09/2023, Additional history exists COVID-19 Vaccine Completed 03/07/2024, 05/2023, 03/22/2022, Additional history exists Fall Risk Screen (Annual) Completed 04/08/2024 Bone Density Scan (Osteoporosis Screen) Discontinued 2024 HPV Vaccines Aged Out No longer eligi ble based on patient's age to complete this topic IPV Vaccines Aged Out No longer eligi ble based on patient's age to complete this topic Medical Devices Implanted Type Area Behavioral Health Assistant Device Identifier Shelf Expiration Date Model / Serial / Lot Grft Bn Fem Hd Frzn 44 - [id number] - [id number] Implanted:Qty: 1 on 08/31/2022 by Stu Hahn M.D., M.B.A. at [facility] Bone or Tissue N/A: Spine Lumbar [employer] 11/07/2026 [id number] / [id number] / Grft Inf Spng Bmp Med 5.6 - [id number] Implanted:Qty: 1 on 08/31/2022 by Stu Hahn M.D., M.B.A. at [facility] Bone or Tissue N/A: Spine Lumbar [employer] 05/22/2024 [id number] / / [id number] Watchman- 024 Implanted:03/27 (Quantity not on file) Cardiac Other Heart Description:Ref # [id number] (Hour Glass) 2027-01-25 Lot # [id number] [place] [id number] 1.5T or 3.0T Operating Mode 2-W/kg (Normal Operating Mode) Maximum Whole-Body ZARA 2W/kg (Normal Operating Mode) Maximum Head ZARA 3.2 W/kg (Normal Operating Mode) Scan Duration 2 W/kg whole-body average ZARA for 60 minutes of continuous RF (a sequence or ygeu-[id number] series/scan without breaks)per [facility] 04/08/24 [facility] Rng Anulo [facility] 32 - [id number] - [id number] Implanted:Qty: 1 on 08/07/2023 by Richard Aguayo M.D. at [facility] Cardiac Valve Prosthesis N/A: Mitral Valve Medtr[employer] 03/27/2028 [id number] / [id number] / Description:Mri safe per [facility] 04/08/24 [facility] Spn Scrw Slr Renu Mas 7.5x45 - [id number] Implanted:Qty: 6 on 08/31/2022 by Stu Hahn M.D., M.B.A. at [facility] Hardware e.g. pins/screw s/rods N/A: Spine Lumbar [employer] [id number] / / Spn Scrw Slr Renu Mas 8.5x35 - [id number] Implanted:Qty: 2 on 08/31/2022 by Stu Hahn M.D., M.B.A. at [facility] Hardware e.g. pins/screw s/rods N/A: Spine Lumbar [employer] [id number] / / Spn Scrw Slr Sld 5.5 - [id number] Implanted:Qty: 8 on 08/31/2022 by Stu Hahn M.D., M.B.A. at [facility] Hardware e.g. pins/screw s/rods N/A: Spine Lumbar [employer] [id number] / / Spn Nicholas Slr 5.5x90 - [id number] Implanted:Qty: 1 on 08/31/2022 by Stu Hahn M.D., M.B.A. at [facility] Hardware e.g. pins/screw s/rods N/A: Spine Lumbar [employer] [id number] / / Spn Nicholas Slr 5.5x100 - [id number] Implanted:Qty: 1 on 08/31/2022 by Stu Hahn M.D., M.B.A. at [facility] Hardware e.g. pins/screw s/rods N/A: Spine Lumbar [employer] [id number] / / Clp Hrzn Ti 6 Clp Octavio - [id number] Implanted:Qty: 1 on 08/07/2023 by Richard Aguayo M.D. at [facility] Hardware e.g. pins/screw s/rods [employer] [id number] / / Dev Crk Sut Blunt Crv - [id number] Implanted:Qty: 1 on 08/07/2023 by Richard Aguayo M.D. at [facility] Hardware e.g. pins/screw s/rods N/A: Mitral Valve [employer] [id number] / / Dev Crk Sut Blunt Crv - [id number] Implanted:Qty: 1 on 08/07/2023 by Richard Aguayo M.D. at [facility] Hardware e.g. pins/screw s/rods N/A: Mitral Valve [employer] [id number] / / Dev Crk Sut Blunt Crv - [id number] Implanted:Qty: 1 on 08/07/2023 by Richard Aguayo M.D. at [facility] Hardware e.g. pins/screw s/rods N/A: Mitral Valve [employer] [id number] / / Sut Fast Crk Qck Ld Sut Fast - [id number] Implanted:Qty: 1 on 08/07/2023 by Richard Aguayo M.D. at [facility] Hardware e.g. pins/screw s/rods N/A: Mitral Valve [employer] [id number] / / Clp Hrzn Ti 6 Clp Sm Red - [id number] Implanted:Qty: 1 on 01/09/2024 by Richard Aguayo M.D. at [facility] Hardware e.g. pins/screw s/rods Right: Groin [employer] [id number] 01/03/2028 [id number] / / [id number] Spn Cg Art L Tlf 10d [id number] - [id number] Implanted:Qty: 1 on 08/31/2022 by Stu Hahn M.D., M.B.A. at [facility] Spine Implant N/A: Spine Lumbar [employer] 02/21/2025 [id number] / / [id number] Spn Cg Art L Tlf 10d [id number] - [id number] Implanted:Qty: 1 on 08/31/2022 by Stu Hahn M.D., M.B.A. at [facility] Spine Implant N/A: Spine Lumbar [employer] 08/03/2026 [id number] / / [id number] Procedures Procedure Name Priority Date/Time Associated Diagnosis Comments TISSUE TRANSGLUTAMINASE (TTG) AB, IGA, S Routine 05/03/2024 11:19 AM COMMUNICATIONS STATION MANAGER CREATININE WITH EGFR, S/P Routine 05/03/2024 11:19 AM COMMUNICATIONS STATION MANAGER Osteoporosis PHOSPHORUS (INORGANIC), S Routine 05/03/2024 11:19 AM COMMUNICATIONS STATION MANAGER Osteoporosis CALCIUM, TOT, S/P Routine 05/03/2024 11:19 AM COMMUNICATIONS STATION MANAGER Osteoporosis PARATHYROID HORMONE (PTH), S Routine 05/03/2024 11:19 AM COMMUNICATIONS STATION MANAGER Osteoporosis QUANTITATIVE M-PROTEIN STUDY, S Routine 05/03/2024 11:19 AM COMMUNICATIONS STATION MANAGER Osteoporosis CELIAC DISEASE SEROLOGY CASCADE, S Routine 05/03/2024 11:19 AM COMMUNICATIONS STATION MANAGER Osteoporosis 25-HYDROXYVITAMIN D2 AND D3, S Routine 05/03/2024 11:19 AM COMMUNICATIONS STATION MANAGER Osteoporosis MR LUMBAR SPINE WITHOUT AND WITH IV CONTRAST RAD - Routine (most inpatients and all outpatients) 04/08/2024 10:59 AM COMMUNICATIONS STATION MANAGER Fusion Lumbar Spine Status Post MR CERVICAL SPINE WITHOUT AND WITH IV CONTRAST RAD - Routine (most inpatients and all outpatients) 04/08/2024 10:59 AM COMMUNICATIONS STATION MANAGER Abnormal Gait Non Orthopedic CT CERVICAL SPINE WITHOUT IV CONTRAST RAD - Routine (most inpatients and all outpatients) 04/08/2024 8:44 AM COMMUNICATIONS STATION MANAGER Abnormal Gait Non Orthopedic CT LUMBAR SPINE WITHOUT IV CONTRAST RAD - Routine (most inpatients and all outpatients) 04/08/2024 8:44 AM COMMUNICATIONS STATION MANAGER Fusion Lumbar Spine Status Post DX CERVICAL SPINE 2-3 VIEWS RAD - Routine (most inpatients and all outpatients) 04/08/2024 8:15 AM COMMUNICATIONS STATION MANAGER Abnormal Gait Non Orthopedic DX LUMBAR SPINE 2-3 VIEWS RAD - Routine (most inpatients and all outpatients) 04/08/2024 8:15 AM COMMUNICATIONS STATION MANAGER Fusion Lumbar Spine Status Post BASIC METABOLIC PANEL, S/P Routine 01/08/2024 1:05 PM CDT Seroma Initial LIPID PANEL, S Timed 10/31/2023 10:51 PM CDT from Last 3 Months or Most Recently Relevant to Health Maintenance Results * (ABNORMAL) Quantitative M-protein Study (05/03/2024 11:19 AM COMMUNICATIONS STATION MANAGER) Immunoglobulin A (IgA), S 132 61 - 356 mg/dL 05/03/2024 3:22 PM COMMUNICATIONS STATION MANAGER [facility] Immunoglobulin M (IgM), S 23(L) 37 - 286 mg/dL 05/03/2024 3:23 PM COMMUNICATIONS STATION MANAGER [facility] Immunoglobulin G (IgG), S 690(L) 767 - 1590 mg/dL 05/03/2024 3:22 PM COMMUNICATIONS STATION MANAGER [facility] Therapeutic Antibody Administered? Unspecified 05/03/2024 1:56 PM COMMUNICATIONS STATION MANAGER [facility] Flag, M-protein Isotype Negative Negative 05/06/2024 11:48 AM COMMUNICATIONS STATION MANAGER [facility] QMPTS Interpretation No monoclonal protein detected. 05/06/2024 11:48 AM COMMUNICATIONS STATION MANAGER [facility] Comment: ----ADDITIONAL INFORMATION---- The submitted sample was assayed by five separate immunopurifications for IgG, IgA, IgM, kappa and lambda. The result reflects the findings of either no monoclonal protein detected or those monoclonal immunoglobulins that were detected. This test was developed and its performance characteristics determined by [facility] in a manner consistent with CLIA requirements. This test has not been cleared or approved by the U.S. Food and Drug Administration. Blood (Blood, Venous) 05/03/2024 11:19 AM COMMUNICATIONS STATION MANAGER 05/03/2024 1:58 PM COMMUNICATIONS STATION MANAGER Narrative [facility] - 05/06/2024 11:48 AM COMMUNICATIONS STATION MANAGER Specimen Information: Specimen ID: [id number] Specimen Type: Blood Specimen Collection Start Date: 05/03/2024 11:19 AM Specimen Received Date: 05/03/2024 1:58 PM Specimen ID: [id number] Specimen Type: Blood Specimen Collection Start Date: 05/03/2024 11:19 AM Specimen Received Date: 05/03/2024 1:56 PM Kinsey Freeman APRN, C.N.P. LAB BLOOD ADD-ON Fi nal Result [facility] [address] [place] [id number] [facility] [address] [place] [id number] [place] [id number] * Celiac Disease Serology Loíza (05/03/2024 11:19 AM COMMUNICATIONS STATION MANAGER) Immunoglobulin A (IgA), S 132 61 - 356 mg/dL 05/03/2024 3:22 PM COMMUNICATIONS STATION MANAGER [facility] Celiac Disease Interpretation See Comment: Negative serology. Celiac disease unlikely. However, approximately 10% of patients with celiac disease are seronegative. Also, patients who are already adhering to a gluten-free diet may be seronegative. If celiac disease is highly clinically suspected, consider HLA-DQ typing. 05/03/2024 10:55 PM COMMUNICATIONS STATION MANAGER [facility] Blood (Blood, Venous) 05/03/2024 11:19 AM COMMUNICATIONS STATION MANAGER 05/03/2024 1:58 PM COMMUNICATIONS STATION MANAGER Narrative [facility] - 05/03/2024 10:55 PM COMMUNICATIONS STATION MANAGER Specimen Information: Specimen ID: [id number] Specimen Type: Blood Specimen Collection Start Date: 05/03/2024 11:19 AM Specimen Received Date: 05/03/2024 1:58 PM Specimen ID: [id number] Specimen Type: Blood Specimen Collection Start Date: 05/03/2024 11:19 AM Specimen Received Date: 05/03/2024 1:58 PM Kinsey Freeman APRN, C.N.P. LAB BLOOD ADD-ON Fi nal Result [facility] [address] [place] [address] [facility] [address] [place] [phone] [facility] [facility] [address] [place] [address] * tTG (Tissue Transglutaminase), Antibody, IgA (05/03/2024 11:19 AM COMMUNICATIONS STATION MANAGER) Pathologist [facility] Tissue Transglutaminase Ab, IgA, S <1.2 <4.0 (Negative ) U/mL 05/03/2024 10:30 PM COMMUNICATIONS STATION MANAGER [facility] Blood 05/03/2024 11:1 9 AM COMMUNICATIONS STATION MANAGER 05/03/2024 3:23 PM COMMUNICATIONS STATION MANAGER Kinsey Freeman APRN, C.N.P. LAB BLOOD ADD-ON Fi nal Result Performing Organization Address [facility]/ZIP Co de Phone Number [facility] [address] [address] [facility] [address] [place] [address] [place] [address] * 25-Hydroxyvitamin D2 and D3 (05/03/2024 11:19 AM COMMUNICATIONS STATION MANAGER) 25-Hydroxy D2 <4.0 ng/mL 05/07/2024 11:37 AM COMMUNICATIONS STATION MANAGER [facility] 25-Hydroxy D3 47 ng/mL 05/07/2024 11:37 AM COMMUNICATIONS STATION MANAGER [facility] 25-Hydroxy D Total 47 ng/mL 2023 11:37 AM [facility] Comment: ----REFERENCE VALUE---- 25-HYDROXY D TOTAL (D2+D3) Optimum levels in the healthy population are 20-50. ----ADDITIONAL INFORMATION---- This test was developed and its performance characteristics determined by [facility] in a manner consistent with CLIA requirements. This test has not been cleared or approved by the U.S. Food and Drug Administration. Blood (Blood, Venous) 05/03/2024 11:19 AM COMMUNICATIONS STATION MANAGER 05/03/2024 1:51 PM COMMUNICATIONS STATION MANAGER Kinsey Freeman APRN, C.N.P. LAB BLOOD ADD-ON Fi nal Result Performing Organization Address City/[facility]/ZIP Co de Phone Number [facility] [address] [place] [address] [facility] [address] [facility] [place] [address] * Phosphorus Inorganic (05/03/2024 11:19 AM COMMUNICATIONS STATION MANAGER) Phosphorus (Inorganic), S 3.9 2.5 - 4.5 mg/dL 05/03/2024 12:29 PM COMMUNICATIONS STATION MANAGER DTL Blood (Blood, Venous) 05/03/2024 11:19 AM COMMUNICATIONS STATION MANAGER 05/03/2024 12:02 PM COMMUNICATIONS STATION MANAGER Kinsey Freeman APRN, C.N.P. LAB BLOOD ADD-ON Fi nal Result Performing Organization Address City/[facility]/ZIP Co de Phone Number [facility] [address] [place] [address], [facility] [address] [place] [address] * Parathyroid Hormone (PTH) (05/03/2024 11:19 AM COMMUNICATIONS STATION MANAGER) Parathyroid Hormone (PTH), S 58 15 - 65 pg/mL 05/03/2024 12:29 PM COMMUNICATIONS STATION MANAGER DTL Blood (Blood, Venous) 05/03/2024 11:19 AM COMMUNICATIONS STATION MANAGER 05/03/2024 12:02 PM COMMUNICATIONS STATION MANAGER Kinsey Freeman APRN, C.N.P. LAB BLOOD ADD-ON Fi nal Result Performing Organization Address [facility] Co de Phone Number [facility] [address] [place] [address], [facility] [address] [place] [address] * Creatinine with Estimated GFR (05/03/2024 11:19 AM COMMUNICATIONS STATION MANAGER) Creatinine 0.80 0.59 - 1.04 mg/dL 05/03/2024 12:29 PM COMMUNICATIONS STATION MANAGER DTL Estimated GFR (eGFR) 77 >=60 mL/min/BSA 05/03/2024 12:29 PM COMMUNICATIONS STATION MANAGER DTL Comment: Estimated GFR calculated using the 2020 CKD_EPI creatinine equation. Blood (Blood, Venous) 05/03/2024 11:19 AM COMMUNICATIONS STATION MANAGER 05/03/2024 12:02 PM COMMUNICATIONS STATION MANAGER Kinsey Freeman APRN, C.N.P. LAB BLOOD ADD-ON Fi nal Result [facility] [address] [place] [address], [facility] DTL [facility] [place] [address] [place] [address] * Calcium, Total (05/03/2024 11:19 AM COMMUNICATIONS STATION MANAGER) Calcium, Total, S 9.8 8.8 - 10.2 mg/dL 05/03/2024 12:29 PM COMMUNICATIONS STATION MANAGER DTL Blood (Blood, Venous) 05/03/2024 11:19 AM COMMUNICATIONS STATION MANAGER 05/03/2024 12:02 PM COMMUNICATIONS STATION MANAGER us Kinsey Freeman APRN, C.N.P. LAB BLOOD ADD-ON Fi nal Result [facility] [address] [place] [address], [facility] [address] [place] [address] * MR Lumbar Spine without and with IV Contrast (04/08/2024 10:59 AM COMMUNICATIONS STATION MANAGER) Anatomical Region Laterality Modality Lumbar Spine, Neuroradiology RST LOS, Neuroradiology ARZ LOS, Neuroradiology FLA LOS N/A Magnetic Resonance Impressions 04/08/2024 11:21 AM COMMUNICATIONS STATION MANAGER 1. Enlargement of the pannus posterior to the dens, now with moderate-advanced narrowing of the spinal canal at C2 and cord deformity. 2. Advanced spinal canal narrowing at L3-L4 has progressed. 3. Interval postsurgical changes at L4-S2 with improved spinal canal narrowing at these levels. 4. Moderate-advanced bilateral C4-C5 and C5-C6 neural foraminal narrowing. 5. Transitional anatomy, as described. Narrative 04/08/2024 11:21 AM COMMUNICATIONS STATION MANAGER EXAM: MR LUMBAR SPINE WITHOUT AND WITH IV CONTRAST, MR CERVICAL SPINE WITHOUT AND WITH IV CONTRAST COMPARISON: MRI cervical spine 09/30/2020 and MRI lumbar spine 03/22/2022. FINDINGS: This report assumes 7 cervical, 12 thoracic, and 5 lumbar type vertebral bodies. A transitional lumbosacral segment is considered S1 for the purposes of this report. A disc space is present at S1-S2. Careful correlation with imaging is recommended prior to any intervention. Cervical spine: Increased size of the heterogeneous pannus posterior to the dens, now with moderate-advanced canal narrowing at C2 and cord deformity. Additional degenerative changes appear similar. Scattered posterior disc-osteophyte complexes with mild canal narrowing at C5-C6 and minimal canal narrowing at additional levels. Moderate right C2-C3, moderate- advanced bilateral C4-C5 and C5-C6, and mild bilateral C6-C7 neural foraminal narrowing. Slight anterolisthesis C3-C4 and C7-T1. Moderate degenerative facet changes, including fusion of the left C6-C7 facet joint. Multilevel interspace narrowing and chronic degenerative endplate changes. No convincing abnormal cord signal. Lumbar spine: Since the prior study, L5-S1 laminectomies and posterior instrumented fusion L4-S2 with interbody spacer devices at L4-S1. Improvement of the previously seen marked spinal canal narrowing at L4-L5 and L5-S1. Posterior disc bulging and degenerative facet changes now result in advanced spinal canal narrowing at L3- L4, progressed since the prior study. Minimal canal narrowing at L1-L2 and mild canal narrowing at L2-L3 with effacement of the lateral recesses. Mild scattered neural foraminal narrowing. Slight retrolisthesis L1-L2 and L2-L3 and mild anterolisthesis L4-L5 and L5-S1. Interspace narrowing and chronic degenerative endplate changes at L2-L3. Disc bulge with at least moderate spinal canal narrowing at T11-T12 seen on the sagittal images. Procedure Note Rhoda Genao M.D. - 04/08/2024 EXAM: MR LUMBAR SPINE WITHOUT AND WITH IV CONTRAST, MR CERVICAL SPINEWITHOUT AND WITH IV CONTRAST COMPARISON: MRI cervical spine 09/30/2020 and MRI lumbar spine 03/22/2022. FINDINGS: This report assumes 7 cervical, 12 thoracic, and 5 lumbar typevertebral bodies. A transitional lumbosacral segment is considered S1 forthe purposes of this report. A disc space is present at S1-S2. Carefulcorrelation with imaging is recommended prior to any intervention. Cervical spine: Increased size of the heterogeneous pannus posterior tothe dens, now with moderate-advanced canal narrowing at C2 and corddeformity. Additional degenerative changes appear similar. Scattered posterior disc-osteophyte complexes with mild canal narrowing atC5-C6 and minimal canal narrowing at additional levels. Moderate rightC2-C3, moderate- advanced bilateral C4-C5 and C5-C6, and mild bilateralC6-C7 neural foraminal narrowing. Slight anterolisthesis C3-C4 and C7-T1. Moderate degenerative facetchanges, including fusion of the left C6-C7 facet joint. Multilevelinterspace narrowing and chronic degenerative endplate changes. Noconvincing abnormal cord signal. Lumbar spine: Since the prior study, L5-S1 laminectomies and posteriorinstrumented fusion L4-S2 with interbody spacer devices at L4-S1.Improvement of the previously seen marked spinal canal narrowing at L4-L5and L5-S1. Posterior disc bulging and degenerative facet changes now result in advanced spinal canal narrowingat L3- L4, progressed since the prior study. Minimal canal narrowing atL1-L2 and mild canal narrowing at L2-L3 with effacement of the lateralrecesses. Mild scattered neural foraminal narrowing. Slight retrolisthesis L1-L2 andL2-L3 and mild anterolisthesis L4-L5 and L5-S1. Interspace narrowing andchronic degenerative endplate changes at L2-L3. Disc bulge with at leastmoderate spinal canal narrowing at T11-T12 seen on the sagittal images. IMPRESSION: 1. Enlargement of the pannus posterior to the dens, now withmoderate-advanced narrowing of the spinal canal at C2 and corddeformity. 2. Advanced spinal canal narrowing at L3-L4 has progressed. 3. Interval postsurgical changes at L4-S2 with improved spinal canalnarrowing at these levels. 4. Moderate-advanced bilateral C4-C5 and C5-C6 neural foraminalnarrowing. 5. Transitional anatomy, as described. Nelson NGUYEN MRI PROCEDURES Final Result * MR Cervical Spine without and with IV Contrast (04/08/2024 10:59 AM COMMUNICATIONS STATION MANAGER) Anatomical Region Laterality Modality Spine, Cervical Spine, Neuro radiology RST LOS, Neuroradiology ARZ [facility] Neuroradiology [place] [facility] N/A Magneti c Resonance Impressions 04/08/2024 11:21 AM COMMUNICATIONS STATION MANAGER 1. Enlargement of the pannus posterior to the dens, now with moderate-advanced narrowing of the spinal canal at C2 and cord deformity. 2. Advanced spinal canal narrowing at L3-L4 has progressed. 3. Interval postsurgical changes at L4-S2 with improved spinal canal narrowing at these levels. 4. Moderate-advanced bilateral C4-C5 and C5-C6 neural foraminal narrowing. 5. Transitional anatomy, as described. Narrative 04/08/2024 11:21 AM COMMUNICATIONS STATION MANAGER EXAM: MR LUMBAR SPINE WITHOUT AND WITH IV CONTRAST, MR CERVICAL SPINE WITHOUT AND WITH IV CONTRAST COMPARISON: MRI cervical spine 09/30/2020 and MRI lumbar spine 03/22/2022. FINDINGS: This report assumes 7 cervical, 12 thoracic, and 5 lumbar type vertebral bodies. A transitional lumbosacral segment is considered S1 for the purposes of this report. A disc space is present at S1-S2. Careful correlation with imaging is recommended prior to any intervention. Cervical spine: Increased size of the heterogeneous pannus posterior to the dens, now with moderate-advanced canal narrowing at C2 and cord deformity. Additional degenerative changes appear similar. Scattered posterior disc-osteophyte complexes with mild canal narrowing at C5-C6 and minimal canal narrowing at additional levels. Moderate right C2-C3, moderate- advanced bilateral C4-C5 and C5-C6, and mild bilateral C6-C7 neural foraminal narrowing. Slight anterolisthesis C3-C4 and C7-T1. Moderate degenerative facet changes, including fusion of the left C6-C7 facet joint. Multilevel interspace narrowing and chronic degenerative endplate changes. No convincing abnormal cord signal. Lumbar spine: Since the prior study, L5-S1 laminectomies and posterior instrumented fusion L4-S2 with interbody spacer devices at L4-S1. Improvement of the previously seen marked spinal canal narrowing at L4-L5 and L5-S1. Posterior disc bulging and degenerative facet changes now result in advanced spinal canal narrowing at L3- L4, progressed since the prior study. Minimal canal narrowing at L1-L2 and mild canal narrowing at L2-L3 with effacement of the lateral recesses. Mild scattered neural foraminal narrowing. Slight retrolisthesis L1-L2 and L2-L3 and mild anterolisthesis L4-L5 and L5-S1. Interspace narrowing and chronic degenerative endplate changes at L2-L3. Disc bulge with at least moderate spinal canal narrowing at T11-T12 seen on the sagittal images. Procedure Note Rhoda Genao M.D. - 11/18/2024 EXAM: MR LUMBAR SPINE WITHOUT AND WITH IV CONTRAST, MR CERVICAL SPINEWITHOUT AND WITH IV CONTRAST COMPARISON: MRI cervical spine 09/30/2020 and MRI lumbar spine 03/22/2022. FINDINGS: This report assumes 7 cervical, 12 thoracic, and 5 lumbar typevertebral bodies. A transitional lumbosacral segment is considered S1 forthe purposes of this report. A disc space is present at S1-S2. Carefulcorrelation with imaging is recommended prior to any intervention. Cervical spine: Increased size of the heterogeneous pannus posterior tothe dens, now with moderate-advanced canal narrowing at C2 and corddeformity. Additional degenerative changes appear similar. Scattered posterior disc-osteophyte complexes with mild canal narrowing atC5-C6 and minimal canal narrowing at additional levels. Moderate rightC2-C3, moderate- advanced bilateral C4-C5 and C5-C6, and mild bilateralC6-C7 neural foraminal narrowing. Slight anterolisthesis C3-C4 and C7-T1. Moderate degenerative facetchanges, including fusion of the left C6-C7 facet joint. Multilevelinterspace narrowing and chronic degenerative endplate changes. Noconvincing abnormal cord signal. Lumbar spine: Since the prior study, L5-S1 laminectomies and posteriorinstrumented fusion L4-S2 with interbody spacer devices at L4-S1.Improvement of the previously seen marked spinal canal narrowing at L4-L5and L5-S1. Posterior disc bulging and degenerative facet changes now result in advanced spinal canal narrowingat L3- L4, progressed since the prior study. Minimal canal narrowing atL1-L2 and mild canal narrowing at L2-L3 with effacement of the lateralrecesses. Mild scattered neural foraminal narrowing. Slight retrolisthesis L1-L2 andL2-L3 and mild anterolisthesis L4-L5 and L5-S1. Interspace narrowing andchronic degenerative endplate changes at L2-L3. Disc bulge with at leastmoderate spinal canal narrowing at T11-T12 seen on the sagittal images. IMPRESSION: 1. Enlargement of the pannus posterior to the dens, now withmoderate-advanced narrowing of the spinal canal at C2 and corddeformity. 2. Advanced spinal canal narrowing at L3-L4 has progressed. 3. Interval postsurgical changes at L4-S2 with improved spinal canalnarrowing at these levels. 4. Moderate-advanced bilateral C4-C5 and C5-C6 neural foraminalnarrowing. 5. Transitional anatomy, as described. us Nelson Esqueda M.D. [facility] MRI PROCEDURES Final Result * CT Lumbar Spine without IV Contrast (04/08/2024 8:44 AM COMMUNICATIONS STATION MANAGER) Anatomical Region Laterality Modality Lumbar Spine, Neuroradiology RST LOS, Neuroradiology ARZ LOS, Neuroradiology FLA LOS N/A Computed Tomography, Compute d Tomography Impressions 04/08/2024 9:20 AM COMMUNICATIONS STATION MANAGER 1. Redemonstrated postsurgical changes of posterior spinal fusion between L3 and S1 levels without evidence of interval hardware locations. 2. Spondylotic changes within the lumbar spine with moderate to advanced spinal canal stenosis at L1-L2 and L2-L3 levels. This may be better evaluated with dedicated MRI study of the lumbar spine as clinically indicated. 3. Likely subacute to chronic fractures along the transverse processes of L1 and L2 vertebra on the left side, new when compared to prior CT study from 05/01/2023 Narrative 04/08/2024 9:20 AM COMMUNICATIONS STATION MANAGER EXAM: CT LUMBAR SPINE WITHOUT IV CONTRAST COMPARISON: Prior CT body study dated 05/01/2023. Lumbar spine radiographs dated 04/08/2024 FINDINGS: The last unfused vertebra is designated as L5. There are 5 lumbar type vertebral bodies. The current study extends from T11-T12 through S2-S3 level. There is mild levocurvature of the lumbar spine as before. Slight anterolisthesis of L4 over L5. Vertebral alignment is otherwise preserved. There are prominent osteopenic changes in visualized bones which partly limits activity for nondisplaced injury. Likely subacute to chronic fractures along the transverse process of L2 vertebra on the left side (4-117) and the transverse process of L1 vertebra (4-3). Redemonstrated postsurgical changes of decompressive laminectomies and posterior spinal fusion between L3 and S1 levels with disc spacer devices at L3-L4 and L4- L5 levels. There is patchy bridging ossification across the disc spacer devices, better seen at L4-L5 level. There is satisfactory uptake of the bone graft along the fusion rods. No interval hardware fracture or periprosthetic loosening. Bilateral S1 pedicle screws are slightly proud along the anterior cortex as before (4-304). No new loss of vertebral body height. There are spondylotic changes within the lumbar spine with multilevel osteophyte formation and advanced loss of disc height at L1-L2 level. Degenerative discovertebral changes and facet arthropathy result in moderate to advanced spinal canal stenosis at L1-L2 and L2-L3 levels. Within limitations of hardware associated artifacts, no definite evidence of advanced foraminal stenosis within the lumbar spine. No pre or paravertebral hematoma. Scattered vascular calcifications. Partial fatty atrophy of the posterior paraspinal muscles between L5 and S3 levels. Procedure Note Eric Ogden M.B.B.S., M.MED. - 04/08/2024 EXAM: CT LUMBAR SPINE WITHOUT IV CONTRAST COMPARISON: Prior CT body study dated 05/01/2023. Lumbar spine radiographsdated 04/08/2024 FINDINGS: The last unfused vertebra is designated as L5. There are 5lumbar type vertebral bodies. The current study extends from [id number] S2-S3 level. There is mild levocurvature of the lumbar spine asbefore. Slight anterolisthesis of L4 over L5. Vertebral alignment is otherwise preserved. There are prominentosteopenic changes in visualized bones which partly limits activity fornondisplaced injury. Likely subacute to chronic fractures along thetransverse process of L2 vertebra on the left side (4-117) and the transverse process of L1 vertebra (4-3). Redemonstrated postsurgical changes of decompressive laminectomies andposterior spinal fusion between L3 and S1 levels with disc spacer devicesat L3-L4 and L4- L5 levels. There is patchy bridging ossification acrossthe disc spacer devices, better seen at L4-L5 level. There is satisfactory uptake of the bone graft along thefusion rods. No interval hardware fracture or periprosthetic loosening.Bilateral S1 pedicle screws are slightly proud along the anterior cortexas before (4-304). No new loss of vertebral body height. There are spondylotic changes withinthe lumbar spine with multilevel osteophyte formation and advanced loss ofdisc height at L1-L2 level. Degenerative discovertebral changes and facetarthropathy result in moderate to advanced spinal canal stenosis at L1-L2 and L2-L3 levels. Withinlimitations of hardware associated artifacts, no definite evidence ofadvanced foraminal stenosis within the lumbar spine. No pre orparavertebral hematoma. Scattered vascular calcifications. Partial fatty atrophy of the posterior paraspinal musclesbetween L5 and S3 levels. IMPRESSION: 1. Redemonstrated postsurgical changes of posterior spinal fusion betweenL3 and S1 levels without evidence of interval hardware locations. 2. Spondylotic changes within the lumbar spine with moderate to advancedspinal canal stenosis at L1-L2 and L2-L3 levels. This may be betterevaluated with dedicated MRI study of the lumbar spine as clinicallyindicated. 3. Likely subacute to chronic fractures along the transverse processes ofL1 and L2 vertebra on the left side, new when compared to prior CT studyfrom 05/01/2023 us Nelson Esqueda M.D. IMCarmen CT PROCEDURES Final Result * CT Cervical Spine without IV Contrast (04/08/2024 8:44 AM COMMUNICATIONS STATION MANAGER) Anatomical Region Laterality Modality Cervical Spine, Neuroradiolo gy RST LOS, Neuroradiology [facility] N[facility]A Computed Tomography, Compute d Tomography 04/08/2024 8:34 AM COMMUNICATIONS STATION MANAGER Impressions 04/08/2024 8:56 AM COMMUNICATIONS STATION MANAGER 1. Moderate canal narrowing C5-6. 2. Foraminal narrowings most advanced at C4-5 and C5-6. 3. 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 Narrative 04/08/2024 8:56 AM COMMUNICATIONS STATION MANAGER EXAM: CT CERVICAL SPINE WITHOUT IV CONTRAST COMPARISON: MR cervical spine 09/30/2020 FINDINGS: Straightening of the cervical lordosis is similar to prior MRI. Multilevel spondylotic changes with intervertebral disc height loss and osteophyte formation greatest at C4-5 through C6-7. Facet hypertrophy greater on the right than left. Disc osteophyte complexes result in canal narrowing that is mild C3-4 and C4-5, moderate C5-6, mild C6-7. Uncovertebral and facet hypertrophy result in foraminal narrowings that are moderate right and mild left C3-4, advanced bilaterally C4-5 and C5-6, moderate bilaterally C6-7 and C7-T1. Marked pannus and irregular calcification at the atlantodental articulation. This appears progressed since the MRI of 09/30/2020 with effacement of the ventral thecal sac and abutment of the cervical medullary junction (series 10, image 32 and series 6, image 29). Atherosclerotic calcifications at the carotid bifurcations. Procedure Note James Cid M.D., Ph.D. - 04/08/2024 EXAM: CT CERVICAL SPINE WITHOUT IV CONTRAST COMPARISON: MR cervical spine 09/30/2020 FINDINGS: Straightening of the cervical lordosis is similar to prior MRI.Multilevel spondylotic changes with intervertebral disc height loss andosteophyte formation greatest at C4-5 through C6-7. Facet hypertrophygreater on the right than left. Disc osteophyte complexes result in canal narrowing that is mild C3-4 andC4-5, moderate C5-6, mild C6-7. Uncovertebral and facet hypertrophy result in foraminal narrowings thatare moderate right and mild left C3-4, advanced bilaterally C4-5 and C5-6,moderate bilaterally C6-7 and C7-T1. Marked pannus and irregular calcification at the atlantodentalarticulation. This appears progressed since the MRI of 09/30/2020 witheffacement of the ventral thecal sac and abutment of the cervicalmedullary junction (series 10, image 32 and series 6, image 29). Atherosclerotic calcifications at the carotid bifurcations. IMPRESSION: 1. Moderate canal narrowing C5-6. 2. Foraminal narrowings most advanced at C4-5 and C5-6. 3. Atlantodental pannus formation with mass effect on the cervicalmedullary junction. us Nelson Esqueda M.D. IMG CT PROCEDURES Final Result * DX Cervical Spine 2-3 Views (04/08/2024 8:15 AM COMMUNICATIONS STATION MANAGER) Anatomical Region Laterality Modality Cervical Spine, Musculoskele ambar RST LOS, Neuroradiology ARZ LOS, Muskuloskeletal FLA LOS N/A Digita l Radiography Impressions 04/08/2024 8:47 AM COMMUNICATIONS STATION MANAGER Narrowing of the C4 through C7 interspaces. Mild anterolisthesis of C2, C3 and C7. Moderate-advanced facet and uncovertebral arthritis. Carotid calcifications. Little change since 09/22/2020. Narrative 04/08/2024 8:47 AM COMMUNICATIONS STATION MANAGER EXAM: DX CERVICAL SPINE 2-3 VIEWS Procedure Note Kriss Raines M.D. - 04/08/2024 EXAM: DX CERVICAL SPINE 2-3 VIEWS IMPRESSION: Narrowing of the C4 through C7 interspaces. Mild anterolisthesis of C2, C3and C7. Moderate-advanced facet and uncovertebral arthritis. Carotidcalcifications. Little change since 09/22/2020. us Nelson Esqueda M.D. IMG DIAGNOSTIC IMAGING P ROCEDURES Final Result * DX Lumbar Spine 2-3 Views (04/08/2024 8:15 AM COMMUNICATIONS STATION MANAGER) Anatomical Region Laterality Modality Lumbar Spine, Musculoskeleta l RST LOS, Neuroradiology ARZ LOS, Muskuloskeletal FLA LOS N/A Digital Radiography Impressions 04/08/2024 8:52 AM COMMUNICATIONS STATION MANAGER Assuming a tiny riblet at T12, there are five lumbar vertebral bodies. Posterior nicholas and pedicle screw fixation L3-S1 with bone grafting, laminectomies, and L3 and L4 interbody spacers. Hardware is intact. There is mild lucency about the L3 and S1 screws. Marked narrowing of the L1 interspace. Mild narrowing of the L2 interspace. Slight retrolisthesis of L1. Mild thoracolumbar curve. 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 Mild degenerative arthritis of the hips. Osteopenia. Old post-traumatic deformity of the distal sacrum. Vascular calcifications. Pelvic surgical clips. Narrative 04/08/2024 8:52 AM COMMUNICATIONS STATION MANAGER EXAM: DX LUMBAR SPINE 2-3 VIEWS Procedure Note Kriss Raines M.D. - 04/08/2024 EXAM: DX LUMBAR SPINE 2-3 VIEWS IMPRESSION: Assuming a tiny riblet at T12, there are five lumbar vertebral bodies.Posterior nicholas and pedicle screw fixation L3-S1 with bone grafting,laminectomies, and L3 and L4 interbody spacers. Hardware is intact. Thereis mild lucency about the L3 and S1 screws. Marked narrowing of the L1 interspace. Mild narrowing ofthe L2 interspace. Slight retrolisthesis of L1. Mild thoracolumbar curve.Mild-moderate degenerative arthritis of the sacroiliac joints, worse onthe left. Mild degenerative arthritis of the hips. Osteopenia. Old post-traumatic deformity of thedistal sacrum. Vascular calcifications. Pelvic surgical clips. us Nelson Esqueda M.D. IMG DIAGNOSTIC IMAGING P ROCEDURES Final Result * Lipid Panel (10/31/2023 10:51 PM CDT) Triglycerides 53 mg/dL 11/01/2023 12:08 AM CDT DTL Comment: ----REFERENCE VALUE---- Normal: <150 mg/dL Borderline High: 150-199 mg/dL High: 200-499 mg/dL Very High: > or =500 mg/dL Cholesterol, Total 164 mg/dL 2023 12:08 AM CDT DTL Comment: ----REFERENCE VALUE---- Desirable: < 200 mg/dL Borderline High: 200 - 239 mg/dL High: > or = 240 mg/dL Cholesterol, LDL, Calculated 37 mg/dL 11/01/2023 12:15 AM CDT DTL Comment: ----REFERENCE VALUE---- Desirable: <100 mg/dL Above Desirable: 100-129 mg/dL Borderline High: 130-159 mg/dL High: 160-189 mg/dL Very High: >=190 mg/dL ----ADDITIONAL INFORMATION---- LDL cholesterol calculated using the Hutchinson/NIH equation. Cholesterol, HDL, S 116 >=50 mg/dL 11/01/2023 12:15 AM CDT DTL Cholesterol, Non-HDL, Calculated 48 mg/dL 11/01/2023 12:15 AM CDT DTL Comment: ----REFERENCE VALUE---- Desirable: <130 mg/dL Above Desirable: 130-159 mg/dL Borderline High: 160-189 mg/dL High: 190-219 mg/dL Very High: > or =220 mg/dL Fasting (8 HR or more) No 10/31/2023 11:28 PM CDT DTL Blood (Blood, Venous) 10/31/2023 10:51 PM CDT 10/31/2023 11:28 PM CDT Sharmaine Skelton M.D. LAB BLOOD ADD-ON Final Result [facility] [address] [place] [address], [place] DTL [facility] [place] [facility] [place] [address] [place] [address] from Last 3 Months or Most Recently Relevant to Health Maintenance Insurance [employer] Advance Directives For more information, please contact: [phone] Documents on File Type Date Recorded Patient Director Of Medical Education Expl anation Advance Directives 08/10/2023 12:15 PM Elias aZmarripa HCPOA/ADVOCATE/AGENT/R EPRESENTATIVE/SURROGAT E * Full Code (Latest Code Status on File) Date Activated Date Inactivated Comments 10/31/2023 11:12 PM 11/03/2023 4:30 PM Question Answer Comments Full Code: Discussed * Full Code Date Activated Date Inactivated Comments 08/07/2023 1:57 PM 08/11/2023 5:36 PM Question Answer Comments Full Code: Not Discussed Due to: Not medically appropriate * Full Code Date Activated Date Inactivated Comments 08/31/2022 5:59 PM 09/04/2022 5:13 PM Question Answer Comments Full Code: Not Discussed Due to: Patient not available * Full Code Date Activated Date Inactivated Comments 08/31/2022 7:12 AM 08/31/2022 5:59 PM Question Answer Comments Full Code: Not Discussed Due to: Patient not available Healthcare Agents on File Name Relationship Healthcare Agent Relationship Communication Elias Zamarripa Spouse Health Care Agent Aimee Zamarripa Daughter First Alternate Health Care Agent Care Teams Vending Machine Host/Hostess Relationship Specialty Start Date End Date Elsewhere, Pcp PCP - General Internal Medicine 05/10/22
--- OUTSIDE RECORDS SUMMARY | 2024-05-21 14:01 | XMS_ITS | Encounter Summary ---
Author Organization [facility] Address [address] [place] [address] Care Team Providers Care Stations Superintendent Name Role Phone Elsewhere, Pcp Primary Care Provider Unavailabl e Encounter Details Date Type Department Care Team (Late st Contact Info) Description 04/26/2024 Orders Only Preoperative Evaluation Center in [place], [place] [address] [place] [address] Vanesa Rayo M.S.N., R.N. [address] [place] [phone] Anemia Of Chronic Disease (Primary Dx) Social History Tobacco Use Types Packs/Day Years Used Date Smoking Tobacco: Former Cigarettes 0 10/03/1966 - 03/05/1974 Passive Smoke Exposure: Never Smokeless Tobacco: Never Alcohol Use Standard Drinks/Week Comments Yes 10 (1 standard drink = 0.6 oz pu re alcohol) [facility] Utilities Answer Date Recorded In the past 12 months has e electric, gas, oil, or water company [...] week 08/15/2022 How often do you attend [facility] or gnosticist services? More than 4 times per year 08/15/2022 Do you belong to any clubs o r organizations such as lutheran groups, unions, fraternal or athletic groups, or [...] Answer Date Recorded PHQ-2 Score 2 01/04/2024 [facility] of Occupat ional Health - Occupational Stress [...] your living situation today? I have a [facility] place to live 12/01/2023 Education Answer Date Recorded What is the highest level of school you have completed or the highest degree you have received? Bachelor's degree (e.g., BA, AB, BS) 08/15/2022 Comments No Sex and Gender Information Value Date Recorded Sex Assigned at Female 05/11/2022 7:48 AM MITIGATION SUPERVISOR Legal Sex Female 9:30 PM MITIGATION SUPERVISOR Gender Identity Female 05/11/2022 7:48 AM MITIGATION SUPERVISOR Sexual Orientation Straight 05/11/2022 7: 48 AM MITIGATION SUPERVISOR documented as of this encounter Plan of Treatment Upcoming Encounters Date Type Department Care Team (Latest Contact Info) Description 05/29/2024 12:15 PM MITIGATION SUPERVISOR Clinical Communication Virtual Review in [address] [phone] 05/31/2024 11:00 AM MITIGATION SUPERVISOR Appointment Department of Laboratory Medicine and Pathology, [facility], in [place], [place] [address] [place] [phone] Patricia Parker APRN, C.N.P., D.N.P. [address] [place] [phone] 05/31/2024 2:00 PM MITIGATION SUPERVISOR Comprehensive Visit Preoperative Evaluation Center in [place], [place] [address] [place] [phone] Arianna Jeffries M.D. [address] [place] [phone] 05/31/2024 2:45 PM MITIGATION SUPERVISOR Comprehensive Visit Preoperative Evaluation Center in [place], [place] [address] [place] [phone] Chris Moreno APRN, C.N.P., M.S. [address] [place] [phone] 06/03/2024 8:15 AM MITIGATION SUPERVISOR Hospital Encounter Post Anesthesia Care Unit in [place] [phone] [place] [phone] Tahir Moore M.D. [address] [place] [phone] 06/03/2024 8:15 AM MITIGATION SUPERVISOR - 06/03/2024 2:12 PM MITIGATION SUPERVISOR Surgery [facility] MAIN OR [address] [place] [phone] Tahir Moore M.D. [address] [place] [phone] C1-2 fusion 07/02/2024 11:00 AM MITIGATION SUPERVISOR Procedure visit Division of Pain Medicine in [place], [place] [address] [place] [phone] Adam Barlow M.D. [address] [place] [address] Scheduled Orders Name Type Priority Associated Diagnoses Orde r Schedule CBC-Preop with reflex anemia panel Lab Routine Anemia Of Chronic Disease Expected: 04/26/2024, Expires: 07/25/2025 Scheduled Procedures Name Priority Associated Diagnoses Date/Ti me 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 06/03/2024 8:15 AM MITIGATION SUPERVISOR documented as of this encounter Visit Diagnoses Diagnosis Stenosis Spinal- Primary Anemia Of Chronic Disease- Primary Stenosis Spinal documented in this encounter Additional Health Concerns Assessment Noted Time PHQ-9 Depression Total Score: 5 01/04/20 24 3:57 AM CDT documented as of this encounter Care Teams Stations Superintendent Relationship Specialty Start Date End Date Elsewhere, Pcp PCP - General Internal Medicine 05/10/22 documented as of this encounter
--- OUTSIDE RECORDS SUMMARY | 2024-05-21 14:01 | XMS_ITS | Encounter Summary ---
Author Organization [facility] Address [address] [place] [address] Care Team Providers Care Lavatory Attendant Name Role Phone Elsewhere, Pcp Primary Care Provider Unavailabl e Reason for Visit * Reason Onset Date Comments Follow-up Orders 05/01/2024 Encounter Details Date Type Department Care Team (Latest Contact Info) Description 05/01/2024 Clinical Communication Division of Endocrinology in [place], [place] [address] [place] [phone] Kinsey Freeman, JOHNSON, C.N.P. [address] [place] [phone] Follow-up Orders Social History Tobacco Use Types Packs/Day Years Used Date Smoking Tobacco: Former Cigarettes 0 10/03/1966 - 03/05/1974 Passive Smoke Exposure: Never Smokeless Tobacco: Never Alcohol Use Standard Drinks/Week Comments Yes 10 (1 standard drink = 0.6 oz pu re alcohol) [facility] Utilities Answer Date Recorded In the past 12 months has e [employer], gas, oil, or water [employer] threatened to shut off services in your [...] often do you attend chur ch or anabaptist services? More than 4 times per year 08/15/2022 Do you belong to any clubs o r organizations such as sikhism groups, unions, fraternal or athletic groups, or [...] Answer Date Recorded PHQ-2 Score 2 01/04/2024 [facility] of Occupat ional Health - Occupational Stress [...] living situation today? I have a [facility] place to live 12/01/2023 Education Answer Date Recorded What is the highest level of school you have completed or the highest degree you have received? Bachelor's degree (e.g., BA, AB, BS) 08/15/2022 Comments No Sex and Gender Information Value Date Recorded Sex Assigned at Female 05/11/2022 7:48 AM MEAL COOKER Legal Sex Female 9:30 PM MEAL COOKER Gender Identity Female 05/11/2022 7:48 AM MEAL COOKER Sexual Orientation Straight 05/11/2022 7: 48 AM MEAL COOKER documented as of this encounter Plan of Treatment Upcoming Encounters Date Type Department Care Team (Latest Contact Info) Description 05/29/2024 12:15 PM MEAL COOKER Clinical Communication Virtual Review in [place], [place] [address] [place] [address] 05/31/2024 11:00 AM MEAL COOKER Appointment Department of Laboratory Medicine and Pathology, [facility], in [place], [place] [address] [place] [phone] Patricia Parker APRN, C.N.P., D.N.P. [address] [place] [phone] 05/31/2024 2:00 PM MEAL COOKER Comprehensive Visit Preoperative Evaluation Center in [place], [place] [address] [place] [phone] Arianna Jeffries M.D. [address] [place] [phone] 05/31/2024 2:45 PM MEAL COOKER Comprehensive Visit Preoperative Evaluation Center in [place], [place] [address] [place] [phone] Chris Moreno, JOHNSON, C.N.P., M.S. [address] [place] [phone] 06/03/2024 8:15 AM MEAL COOKER Hospital Encounter Post Anesthesia Care Unit in [place] [phone] [place] [phone] Tahir Moore M.D. [address] [place] [phone] 06/03/2024 8:15 AM MEAL COOKER - 06/03/2024 2:12 PM MEAL COOKER Surgery [facility] MAIN OR [address] [place] [phone] Tahir Moore M.D. [address] [place] [phone] C1-2 fusion 07/02/2024 11:00 AM MEAL COOKER Procedure visit Division of Pain Medicine in [place], [place] [address] [place] [phone] Adam Barlow M.D. [address] [place] [phone] Scheduled Procedures Name Priority Associated Diagnoses Date/Ti me 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 06/03/2024 8:15 AM MEAL COOKER documented as of this encounter Visit Diagnoses Diagnosis Stenosis Spinal- Primary Osteoporosis- Primary Stenosis Spinal documented in this encounter Additional Health Concerns Assessment Noted Time PHQ-9 Depression Total Score: 5 01/04/20 24 3:57 AM CDT documented as of this encounter Care Teams Lavatory Attendant Relationship Specialty Start Date End Date Elsewhere, Pcp PCP - General Internal Medicine 05/10/22 documented as of this encounter
--- OUTSIDE RECORDS SUMMARY | 2024-05-21 14:01 | XMS_ITS ---
Author Organization [facility] Address [address] [place] [address] Care Team Providers Care Product Planner Name Role Phone Elsewhere, Pcp Primary Care Provider Unavailabl e Active Problems * This document contains information received from the source organization and may not represent a complete record from that organization. Problem Noted Date Diagnosed Date Osteoporosis 04/29/2024 [...] (06/13/2022): Added automatically from request for surgery [id number] Atrial Fibrillation Longstanding Persistent 05/23 Assessment & [...] 24 hours prior to procedure. Osteoarthritis 08/23/2006 Current Oncology Plans No current plan information found. Other Current Plans romosozumab aqqg ([facility]ENITY)* Plan Start Date:05/02/2024 Plan Provider:Kinsey Freeman APRN, C.N.P. Linked Problems Osteoporosis Treatment Medications No medications scheduled. Vascular Access Patency - Peripheral Intravenous Catheter and Rapid Infusion Catheter* Plan Start Date:07/14/2023 Plan Provider:Patricia Parker APRN, C.N.PHomero, D.N.P. Linked Problems Anemia Treatment Medications No medications scheduled. zoledronic acid (RECLAST)* Plan Start Date:04/29/2025 Plan Provider:Kinsey Freeman APRN, C.N.PHomero Linked Problems Osteoporosis Treatment Medications No medications scheduled. Past Plans Radiation Treatments * No radiation treatments are documented for this patient in [facility]. Treatments may have been administered in another system. Lifetime Dose Tracking * Chemical Lifetime Dose Automatic Entry Manual Entr y Radiation 6.937 mGy 6.937 mGy 0 mGy Fluoro Time 0.112 minutes 0.112 minutes 0 minutes DAP (Gy-cm2) 0.09 Gy-cm2 0.09 Gy-cm2 0 Gy-cm2 DAP (mGy-cm2) 1,505.56 mGy-cm2 1,505.56 mGy-cm2 0 mGy- cm2 Resolved Problems Problem Noted Date Diagnosed Date [...] controlled without her medication. Atypical Atrial Flutter 05/06/202107/204 Cardiomyopathy Stress Induced 05/06/2021 08/03/2023 Overview (06/13/2022): [...]
--- OUTSIDE RECORDS SUMMARY | 2024-05-21 14:01 | XMS_ITS | Encounter Summary ---
Author Organization [facility] Address [address] [place] [address] Care Team Providers Care Health Information Technologist Name Role Phone Elsewhere, Pcp Primary Care Provider Unavailabl e Encounter Details Date Type Department Care Team (Latest Contact Info) Description 05/01/2024 Clinical Communication Division of Endocrinology in [place], [place] [address] [place] [address] Kinsey Freeman, JOHNSON, C.N.P. [address] [place] [address] Social History Tobacco Use Types Packs/Day Years Used Date Smoking Tobacco: Former Cigarettes 0 10/03/1966 - 03/05/1974 Passive Smoke Exposure: Never Smokeless Tobacco: Never Alcohol Use Standard Drinks/Week Comments Yes 10 (1 standard drink = 0.6 oz pu re alcohol) [facility] Utilities Answer Date Recorded In the past 12 months has e [employer], gas, oil, or water company threatened to [...] week 08/15/2022 How often do you attend [facility] or roman catholic services? More than 4 times per year [...] Answer Date Recorded PHQ-2 Score 2 01/04/2024 [facility] of Occupat ional Health - Occupational Stress [...] your living situation today? I have a [facility] place to live 12/01/2023 Education Answer Date Recorded What is the highest level of school you have completed or the highest degree you have received? Bachelor's degree (e.g., BA, AB, BS) 08/15/2022 Comments No Sex and Gender Information Value Date Recorded Sex Assigned at Female 05/11/2022 7:48 AM GREEN MARKETING ANALYST Legal Sex Female 9:30 PM GREEN MARKETING ANALYST Gender Identity Female 05/11/2022 7:48 AM GREEN MARKETING ANALYST Sexual Orientation Straight 05/11/2022 7: 48 AM GREEN MARKETING ANALYST documented as of this encounter Plan of Treatment Upcoming Encounters Date Type Department Care Team (Latest Contact Info) Description 05/29/2024 12:15 PM GREEN MARKETING ANALYST Clinical Communication Virtual Review in [address] [phone] 05/31/2024 11:00 AM GREEN MARKETING ANALYST Appointment Department of Laboratory Medicine and Pathology, [facility], in [place], [place] [address] [place] [phone] Patricia Parker APRN, C.N.P., D.N.P. [address] [place] [phone] 05/31/2024 2:00 PM GREEN MARKETING ANALYST Comprehensive Visit Preoperative Evaluation Center in [place], [place] [address] [place] [phone] Arianna Jeffries M.D. [address] [place] [address] [phone] 05/31/2024 2:45 PM GREEN MARKETING ANALYST Comprehensive Visit Preoperative Evaluation Center in [place], [place] [address] [place] [phone] Chris Moreno, JOHNSON, C.N.P., M.S. [address] [place] [phone] 06/03/2024 8:15 AM GREEN MARKETING ANALYST Hospital Encounter Post Anesthesia Care Unit in [place] [address] [place] [phone] Tahir oMore M.D. [address] [place] [phone] 06/03/2024 8:15 AM GREEN MARKETING ANALYST - 06/03/2024 2:12 PM GREEN MARKETING ANALYST Surgery [facility] MAIN OR [address] [place] [phone] Tahir Moore M.D. [address] [place] [address] [phone] C1-2 fusion 07/02/2024 11:00 AM GREEN MARKETING ANALYST Procedure visit Division of Pain Medicine in [place], [place] [address] [place] [address] [phone] Adam Barlow M.D. [address] [place] [address] Scheduled Procedures Name Priority Associated Diagnoses Date/Ti me 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 06/03/2024 8:15 AM GREEN MARKETING ANALYST documented as of this encounter Visit Diagnoses Not on filedocumented in this encounter Additional Health Concerns Assessment Noted Time PHQ-9 Depression Total Score: 5 01/04/20 24 3:57 AM CDT documented as of this encounter Care Teams Health Information Technologist Relationship Specialty Start Date End Date Elsewhere, Pcp PCP - General Internal Medicine 05/10/22 documented as of this encounter
--- OUTSIDE RECORDS SUMMARY | 2024-05-21 14:01 | XMS_ITS | Referral Summary ---
Author Organization [facility] Address [address] [place] [address] Care Team Providers Care Electric Motor Tester Assembler Name Role Phone Elsewhere, Pcp Primary Care Provider Unavailabl e Source Comments Patient records contain information from all sites at [facility]. For routine questions regarding patient records, call [phone] during business hours, M-F 8:00 AM - 5:00 PM Central Time. Record requests for emergency care only can be directed to [phone] at any time.[facility] Encounters Date Type Department Care Team Description 05/03/2024 10:53 AM [employer] - 05/03/2024 11:59 PM [employer] Hospital Encounter Department of Laboratory Medicine and Pathology, [facility] in [place], [place] [address] [place] [address] Kinsey Freeman APRN, C.N.P. Osteoporosis Discharge Disposition: Home or Self Care 05/01/2024 Clinical Communication Division of Endocrinology in [place], [place] [address] [place] [address] Kinsey Freeman APRN, C.N.P. 05/01/2024 Clinical Communication Department of Neurologic Surgery in [place], [place] [address] [place] [address] Arianna Jeffries M.D. [employer]SM - Outside Materials 05/01/2024 Clinical Communication Division of Endocrinology in [place], [place] [address] [place] [phone] Kinsey Freeman APRN, C.N.P. Follow-up Orders 04/29/2024 1:00 PM [employer] Telemedicine Division of Endocrinology in [place], [place] [address] [place] [phone] Kinsey Freeman APRN, C.N.P. Osteoporosis (Primary Dx); Osteopenia 04/26/2024 Orders Only Preoperative Evaluation Center in [place], [place] [address] [place] [phone] Vanesa Rayo M.S.N., R.N. Anemia Of Chronic Disease (Primary Dx) 04/26/2024 Orders Only Preoperative Evaluation Center in [place], [place] [address] [place] [phone] Chris Moreno APRN, C.N.P., M.S. Preanesthetic Medical Exam (Primary Dx); Anemia 04/24/2024 8:00 AM [employer]ED [employer] Office Visit Department of Spine in [address] [phone] Rancho Larson, P.A.-C., M.S. Fusion Lumbar Spine Status Post (Primary Dx); Pain Hip Right 04/08/2024 7:45 AM [employer] - 04/08/2024 7:55 AM [employer] Hospital Encounter Department of Radiology, [address] [phone] Nelson Esqueda M.D. Fusion Lumbar Spine Status Post Discharge Disposition: Home or Self Care 04/08/2024 7:56 AM [employer] - 04/08/2024 8:12 AM [employer] Hospital Encounter Department of Radiology, [address] [phone] Nelson Esqueda M.D. Abnormal Gait Non Orthopedic Discharge Disposition: Home or Self Care 04/08/2024 3:30 PM [employer] Office Visit Department of Neurologic Surgery in [address] [phone] Arianna Jeffries M.D. Pain Hip Right (Primary Dx); Osteoarthritis; Osteopenia 04/08/2024 8:47 AM [employer] - 04/08/2024 11:59 PM [employer] Hospital Encounter Department of Radiology, [facility] in [place], [place] [address] [place] [phone] Nelson Esqueda M.D. Abnormal Gait Non Orthopedic; Fusion Lumbar Spine Status Post Discharge Disposition: Home or Self Care 04/08/2024 8:13 AM [employer] - 04/08/2024 8:46 AM [employer] Hospital Encounter Department of Radiology, [place], [place] [address] [place] [phone] Nelson Esqueda M.D. Fusion Lumbar Spine Status Post; Abnormal Gait Non Orthopedic Discharge Disposition: Home or Self Care 04/05/2024 3:15 PM [facility] Clinical Communication Virtual Review in [place], [place] [address] [place] [address] Pre-visit Intake from Last 3 Months Allergies No known active allergies Medications * [...] days. 2.34 mL 11 Active HYDROcodone-a cetaminophen ([place]) 5-325 mg per tablet Take 1 tablet by mouth every 6 (six) hours as needed. 2023 Discontinued romosozumab-a qqg (Evenity) 210mg/2.34mL ( 105mg/1.17mLx 2) injection Inject 2.34 mL (210 mg total) under the skin every 28 (twenty-eight) days. 2.34 mL 11 024 2023 Discontinued Active Problems Problem Noted Date [...] (06/13/2022): Added automatically from request for surgery [id number] Atrial Fibrillation Longstanding Persistent 05/23 Assessment & [...] Perforation 10/16/2009 08/03/2023 Pain Cervical 08/23/2006 08/03/2023 Social History Tobacco Use Types Packs/Day Years Used Date Smoking Tobacco: Former Cigarettes 0 10/03/1966 - 03/05/1974 Passive Smoke Exposure: Never Smokeless Tobacco: Never Tobacco Cessation:Counseling Given: Not Answered Alcohol Use Standard Drinks/Week Comments Yes 10 (1 standard drink = 0.6 oz pu re alcohol) [facility] Utilities Answer Date Recorded In the past 12 months has [place] Slides, oil, or water [employer] threatened to shut off services in your [...] How often do you attend chur or synagogue services? More than 4 times per year [...] Answer Date Recorded PHQ-2 Score 2 01/04/2024 [facility] - Occupational [...] your living situation today? I have a [facility] place to live 12/01/2023 Education Answer Date Recorded What is the highest level of school you have completed or the highest degree you have received? Bachelor's degree (e.g., BA, AB, BS) 08/15/2022 Comments No Sex and Gender Information Value Date Recorded Sex Assigned at Female 05/11/2022 7:48 AM [employer]ED [employer] ESC[employer] Legal Sex Female 9:30 PM [employer] Gender Identity Female 05/11/2022 7:48 AM [employer] Sexual Orientation Straight 05/11/2022 7: 48 AM [employer] Last Filed Vital Signs Vital Sign Reading Time Taken Comments Blood Pressure 117/75 04/24/2024 8:02 AM [employer] Pulse 88 04/24/2024 8:02 AM [employer] Temperature 36.5 C (97.7 F) 01/09/2024 9:50 AM CDT Respiratory Rate 16 01/09/2024 11:05 AM CDT Oxygen Saturation 95% 04/08/2024 11:16 AM [employer] Inhaled Oxygen Concentration - - Weight 62 kg (136 lb 11 oz) 01/09/2024 6:18 AM C DT Height 160.5 cm (5' 3.19) 01/09/2024 6:18 AM CD T Body Mass Index 24.07 01/09/2024 6:18 AM CDT Plan of Treatment Upcoming Encounters Date Type Department Care Team (Latest Contact Info) Description 05/29/2024 12:15 PM [employer] Clinical Communication Virtual Review in [place], [place] [address] [place] [address] 05/31/2024 11:00 AM [employer]ED [employer] Appointment Department of Laboratory Medicine and Pathology, [facility] in [place], [place] [address] [place] [phone] Patricia Parker APRN, C.N.P., D.N.P. [address] [place] [phone] 05/31/2024 2:00 PM [employer] Comprehensive Visit Preoperative Evaluation Center in [place], [place] [address] [place] [phone] Arianna Jeffries M.D. [address] [place] [phone] 05/31/2024 2:45 PM [employer] Comprehensive Visit Preoperative Evaluation Center in [place], [place] [address] [place] [phone] Chris Moreno APRN, C.N.P., M.S. [address] [place] [phone] 06/03/2024 8:15 AM [employer] Hospital Encounter Post Anesthesia Care Unit in [place], [place] [address] [place] [phone] Tahir Moore M.D. 200 [place] [phone] 06/03/2024 8:15 AM [employer] - 06/03/2024 2:12 PM [employer] Surgery [facility] MAIN OR [address] [place] [address] Tahir Moore M.D. [address] [place] [phone] C1-2 fusion 07/02/2024 11:00 AM [employer] Procedure visit Division of Pain Medicine in [place], [place] [address] [place] [phone] Adam Barlow M.D. [address] [place] [phone] Scheduled Procedures Name Priority Associated Diagnoses Date/Ti me 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 06/03/2024 8:15 AM [employer] Medical Devices Implanted Type Area Roof Cement And Paint Maker Helper Device Identifier Shelf Expiration Date Model / Serial / Lot Grft Bn Fem Hd Frzn 44 - [id number] - [id number] Implanted:Qty: 1 on 08/31/2022 by Stu Hahn M.D., M.B.A. at [facility] Bone or Tissue N/A: Spine Lumbar [employer] 11/07/2026 [id number] / [id number] / Grft Inf Spng Bmp Med 5.6 - [id number] Implanted:Qty: 1 on 08/31/2022 by Stu Hahn M.D., M.B.A. at [facility] Bone or Tissue N/A: Spine Lumbar [employer] 05/22/2024 [id number] / / [id number] Watchman- [id number] Implanted:03/27 (Quantity not on file) Cardiac Other Heart Description:Ref # [id number] (Hour Glass) 2027-01-25 Lot # [id number] [facility] [id number] 1.5T or 3.0T Operating Mode 2-W/kg (Normal Operating Mode) Maximum Whole-Body ZARA 2W/kg (Normal Operating Mode) Maximum Head ZARA 3.2 W/kg (Normal Operating Mode) Scan Duration 2 W/kg whole-body average ZARA for 60 minutes of continuous RF (a sequence or [id number] series/scan without breaks)[facility] 04/08/24 [facility] Rng Keith Mtrl [facility] 32 - [id number] - [id number] Implanted:Qty: 1 on 08/07/2023 by Richard Aguayo M.D. at [facility] Cardiac Valve Prosthesis N/A: Mitral Valve Med[employer] 03/27/2028 [id number] / [id number] / Description:Mri safe per [facility] 04/08/24 [facility] Spn Scrw Slr Renu Mas 7.5x45 - [id number] Implanted:Qty: 6 on 08/31/2022 by Stu Hahn M.D., M.B.A. at [facility] Hardware e.g. pins/screw s/rods N/A: Spine Lumbar [employer] [id number] / / Spn Scrw Slr Renu Mas 8.5x35 - [id number] Implanted:Qty: 2 on 08/31/2022 by Stu Hahn M.D., M.B.A. at [facility] Hardware e.g. pins/screw s/rods N/A: Spine Lumbar [employer] [id number] / / Spn Scrw Slr Sld 5.5 - [id number] Implanted:Qty: 8 on 08/31/2022 by Stu Hahn M.D., M.B.A. at [facility] Hardware e.g. pins/screw s/rods N/A: Spine Lumbar [employer] [id number] / / Spn Nicholas Slr 5.5x90 - [id number] Implanted:Qty: 1 on 08/31/2022 by Stu Hahn M.D., M.B.A. at [facility] Hardware e.g. pins/screw s/rods N/A: Spine Lumbar [employer] [id number] / / Spn Nicholas Slr 5.5x100 - [id number] Implanted:Qty: 1 on 08/31/2022 by Stu Hahn M.D., M.B.A. at [facility] Hardware e.g. pins/screw s/rods N/A: Spine Lumbar [employer] [id number] / / Clp Hrzn Ti 6 Clp Md Octavio - [id number] Implanted:Qty: 1 on 08/07/2023 by Richard Aguayo M.D. at [facility] Hardware e.g. pins/screw s/rods [employer] [id number] / / Dev Crk Sut Blunt Crv - [id number] Implanted:Qty: 1 on 08/07/2023 by Richard Aguayo M.D. at [facility] Hardware e.g. pins/screw s/rods N/A: Mitral Valve [employer] [id number] / / Dev Crk Sut Blunt Crv - [id number] Implanted:Qty: 1 on 08/07/2023 by Richard Aguayo M.D. at [facility] Hardware e.g. pins/screw s/rods N/A: Mitral Valve [employer] [id number] / / Dev Crk Sut Blunt Crv - [id number] Implanted:Qty: 1 on 08/07/2023 by Richard Aguayo M.D. at [facility] Hardware e.g. pins/screw s/rods N/A: Mitral Valve [employer] [id number] / / Sut Fast Crk Qck Ld Sut Fast - [id number] Implanted:Qty: 1 on 08/07/2023 by Richard Aguayo M.D. at [facility] Hardware e.g. pins/screw s/rods N/A: Mitral Valve [employer] [id number] / / Clp Hrzn Ti 6 Clp Sm Red - [id number] Implanted:Qty: 1 on 01/09/2024 by Richard Aguayo M.D. at [facility] Hardware e.g. pins/screw s/rods Right: Groin [employer] [id number] 01/03/2028 [id number] / / [id number] Spn Cg Art L Tlf 10d [id number] - [id number] Implanted:Qty: 1 on 08/31/2022 by Stu Hahn M.D., M.B.A. at [facility] Spine Implant N/A: Spine Lumbar [employer] 02/21/2025 [id number] / / [id number] Spn Cg Art L Tlf 10d [id number] - [id number] Implanted:Qty: 1 on 08/31/2022 by Stu Hahn M.D., M.B.A. at [facility] Spine Implant N/A: Spine Lumbar Med[employer] 08/03/2026 [id number] / / [id number] Procedures Procedure Name Priority Date/Time Associated Diagnosis Comments TISSUE TRANSGLUTAMINASE (TTG) AB, IGA, S Routine 05/03/2024 11:19 AM [employer]ED CAR [employer] CREATININE WITH EGFR, S/P Routine 05/03/2024 11:19 AM [employer]ED CAR [employer]ORT Osteoporosis PHOSPHORUS (INORGANIC), S Routine 05/03/2024 11:19 AM [employer]ED CAR ESCORT Osteoporosis CALCIUM, TOT, S/P Routine 05/03/2024 11:19 AM [employer]ED CAR ESCORT Osteoporosis PARATHYROID HORMONE (PTH), S Routine 05/03/2024 11:19 AM [employer]ED CAR [employer]ORT Osteoporosis QUANTITATIVE M-PROTEIN STUDY, S Routine 05/03/2024 11:19 AM [employer]ED CAR [employer]ORT Osteoporosis CELIAC DISEASE SEROLOGY CASCADE, S Routine 05/03/2024 11:19 AM [employer]OURED CAR ESCORT Osteoporosis 25-HYDROXYVITAMIN D2 AND D3, S Routine 05/03/2024 11:19 AM [employer]OURED CAR ESCORT Osteoporosis MR LUMBAR SPINE WITHOUT AND WITH IV CONTRAST RAD - Routine (most inpatients and all outpatients) 04/08/2024 10:59 AM ARMOURED CAR ESCORT Fusion Lumbar Spine Status Post MR CERVICAL SPINE WITHOUT AND WITH IV CONTRAST RAD - Routine (most inpatients and all outpatients) 04/08/2024 10:59 AM [employer]ED [employer] ESCORT Abnormal Gait Non Orthopedic CT CERVICAL SPINE WITHOUT IV CONTRAST RAD - Routine (most inpatients and all outpatients) 04/08/2024 8:44 AM [employer]ED CAR ESCORT Abnormal Gait Non Orthopedic CT LUMBAR SPINE WITHOUT IV CONTRAST RAD - Routine (most inpatients and all outpatients) 04/08/2024 8:44 AM [employer]ED CAR ESCORT Fusion Lumbar Spine Status Post DX CERVICAL SPINE 2-3 VIEWS RAD - Routine (most inpatients and all outpatients) 04/08/2024 8:15 AM [employer]ED [employer]ORT Abnormal Gait Non Orthopedic DX LUMBAR SPINE 2-3 VIEWS RAD - Routine (most inpatients and all outpatients) 04/08/2024 8:15 AM [employer]OURED CAR ESC[employer] Fusion Lumbar Spine Status Post BASIC METABOLIC PANEL, S/P Routine 01/08/2024 1:05 PM CDT Seroma Initial LIPID PANEL, S Timed 10/31/2023 10:51 PM CDT from Last 3 Months or Most Recently Relevant to Health Maintenance Results * (ABNORMAL) Quantitative M-protein Study (05/03/2024 11:19 AM [employer]OURED CAR [employer]) Immunoglobulin A (IgA), S 132 61 - 356 mg/dL 05/03/2024 3:22 PM [employer]OURED [employer] [facility] Immunoglobulin M (IgM), S 23(L) 37 - 286 mg/dL 05/03/2024 3:23 PM [employer]ED [employer] [facility] Immunoglobulin G (IgG), S 690(L) 767 - 1590 mg/dL 05/03/2024 3:22 PM [employer]ED [employer] [facility] Therapeutic Antibody Administered? Unspecified 05/03/2024 1:56 PM [employer]ED [employer] [facility] Flag, M-protein Isotype Negative Negative 05/06/2024 11:48 AM ARMOURED CAR ESCORT [facility] QMPTS Interpretation No monoclonal protein detected. 05/06/2024 11:48 AM [facility] Comment: ----ADDITIONAL INFORMATION---- The submitted sample was assayed by five separate immunopurifications for IgG, IgA, IgM, kappa and lambda. The result reflects the findings of either no monoclonal protein detected or those monoclonal immunoglobulins that were detected. This test was developed and its performance characteristics determined by [facility] in a manner consistent with CLIA requirements. This test has not been cleared or approved by the U.S. Food and Drug Administration. Blood (Blood, Venous) 05/03/2024 11:19 AM [employer]ED [employer] 05/03/2024 1:58 PM [employer]OURED CAR [employer]ORT Narrative [facility] - 05/06/2024 11:48 AM [employer]ED [employer] ESCORT Specimen Information: Specimen ID: [id number] Specimen Type: Blood Specimen Collection Start Date: 05/03/2024 11:19 AM Specimen Received Date: 05/03/2024 1:58 PM Specimen ID: [id number] Specimen Type: Blood Specimen Collection Start Date: 05/03/2024 11:19 AM Specimen Received Date: 05/03/2024 1:56 PM Kinsey Freeman APRN, C.N.P. LAB BLOOD ADD-ON Fi nal Result [facility] [address] [place] [place] [address] [facility] [address] [place] [place] [address] [place] [facility] [place] [address] * Celiac Disease Serology [place] (05/03/2024 11:19 AM [employer]ED [employer] ESC[employer]) Immunoglobulin A (IgA), S 132 61 - 356 mg/dL 05/03/2024 3:22 PM [employer]OURED [employer] [facility] Celiac Disease Interpretation See Comment: Negative serology. Celiac disease unlikely. However, approximately 10% of patients with celiac disease are seronegative. Also, patients who are already adhering to a gluten-free diet may be seronegative. If celiac disease is highly clinically suspected, consider HLA-DQ typing. 05/03/2024 10:55 PM [employer]ED [employer]ORT [facility] Blood (Blood, Venous) 05/03/2024 11:19 AM [employer] 05/03/2024 1:58 PM [employer]OURED [employer] ESCORT Narrative [facility] - 05/03/2024 10:55 PM [employer] Specimen Information: Specimen ID: [id number] Specimen Type: Blood Specimen Collection Start Date: 05/03/2024 11:19 AM Specimen Received Date: 05/03/2024 1:58 PM Specimen ID: [id number] Specimen Type: Blood Specimen Collection Start Date: 05/03/2024 11:19 AM Specimen Received Date: 05/03/2024 1:58 PM Kinsey Freeman APRN, C.N.P. LAB BLOOD ADD-ON Fi nal Result Performing Organization Address City/[facility]/ZIP Co de Phone Number [facility] [address] [place] [address] [facility] [address] [place] [place] [address] [place] [address] [place] [address] [place] [address] * tTG (Tissue Transglutaminase), Antibody, IgA (05/03/2024 11:19 AM ARMOURED CAR ESC[employer]) [facility] Tissue Transglutaminase Ab, IgA, S <1.2 <4.0 (Negative ) U/mL 05/03/2024 10:30 PM [employer]OURED [employer] [facility] Blood 05/03/2024 11:1 9 AM [employer] 05/03/2024 3:23 PM [employer] Kinsey Freeman APRN, C.N.P. LAB BLOOD ADD-ON Fi nal Result Performing Organization Address City/[facility]/ZIP Co de Phone Number [facility] [address] [place] [address] [place] [address] * 25-Hydroxyvitamin D2 and D3 (05/03/2024 11:19 AM ARMOURED CAR ESC[employer]) [facility] 25-Hydroxy D2 <4.0 ng/mL 05/07/2024 11:37 AM [employer]OURED [employer] [facility] 25-Hydroxy D3 47 ng/mL 05/07/2024 11:37 AM [employer] [facility] 25-Hydroxy D Total 47 ng/mL 2023 11:37 AM [employer]OURED [employer] [facility] Comment: ----REFERENCE VALUE---- 25-HYDROXY D TOTAL (D2+D3) Optimum levels in the healthy population are 20-50. ----ADDITIONAL INFORMATION---- This test was developed and its performance characteristics determined by [facility] in a manner consistent with CLIA requirements. This test has not been cleared or approved by the U.S. Food and Drug Administration. Blood (Blood, Venous) 05/03/2024 11:19 AM [employer] 05/03/2024 1:51 PM [employer] Kinsey Freeman APRN, C.N.P. LAB BLOOD ADD-ON Fi nal Result Performing Organization Address [facility]/ZIP Co de Phone Number [facility] [address] [place] [address] [facility] [address] [place] [address] [place] [address] * Phosphorus Inorganic (05/03/2024 11:19 AM [employer]) Phosphorus (Inorganic), S 3.9 2.5 - 4.5 mg/dL 05/03/2024 12:29 PM [employer]OURED [employer] DTL Blood (Blood, Venous) 05/03/2024 11:19 AM [employer] 05/03/2024 12:02 PM [employer] Kinsey Freeman APRN, C.N.P. LAB BLOOD ADD-ON Fi nal Result Performing Organization Address [facility]/ZIP Co de Phone Number [facility] [address] [place] [address], [facility] [address] [place] [address] * Parathyroid Hormone (PTH) (05/03/2024 11:19 AM [employer]) Parathyroid Hormone (PTH), S 58 15 - 65 pg/mL 05/03/2024 12:29 PM [employer]ED [employer] [facility] Blood (Blood, Venous) 05/03/2024 11:19 AM [employer] 05/03/2024 12:02 PM [employer] Kinsey Freeman APRN, C.N.P. LAB BLOOD ADD-ON Fi nal Result Performing Organization Address City/[facility]/ZIP Co de Phone Number [facility] [address] [place] [address], [facility] [address] [place] [address] * Creatinine with Estimated GFR (05/03/2024 11:19 AM [employer]) Creatinine 0.80 0.59 - 1.04 mg/dL 05/03/2024 12:29 PM [employer]ED [employer] DTL Estimated GFR (eGFR) 77 >=60 mL/min/BSA 05/03/2024 12:29 PM [employer] [facility] Comment: Estimated GFR calculated using the 2020 CKD_EPI creatinine equation. Blood (Blood, Venous) 05/03/2024 11:19 AM [employer] 05/03/2024 12:02 PM [employer] Kinsey Freeman APRN, C.N.P. LAB BLOOD ADD-ON Fi nal Result Performing Organization Address [facility]/ZIP Co de Phone Number [facility] [address] [place] [address], [facility] [address] [place] [address] * Calcium, Total (05/03/2024 11:19 AM [employer]) Calcium, Total, S 9.8 8.8 - 10.2 mg/dL 05/03/2024 12:29 PM [employer]ED [employer] DTL Blood (Blood, Venous) 05/03/2024 11:19 AM [employer] 05/03/2024 12:02 PM [employer] Kinsey Freeman APRN, C.N.P. LAB BLOOD ADD-ON Fi nal Result [facility] [address] [place] [address], [place] DTL [facility] [address] [place] [address] * MR Lumbar Spine without and with IV Contrast (04/08/2024 10:59 AM [employer]) Anatomical Region Laterality Modality Lumbar Spine, Neuroradiology RST LOS, Neuroradiology ARZ LOS, Neuroradiology FLA LOS N/A Magnetic Resonance Impressions 04/08/2024 11:21 AM [employer] 1. Enlargement of the pannus posterior to the dens, now with moderate-advanced narrowing of the spinal canal at C2 and cord deformity. 2. Advanced spinal canal narrowing at L3-L4 has progressed. 3. Interval postsurgical changes at L4-S2 with improved spinal canal narrowing at these levels. 4. Moderate-advanced bilateral C4-C5 and C5-C6 neural foraminal narrowing. 5. Transitional anatomy, as described. Narrative 04/08/2024 11:21 AM [employer] EXAM: MR LUMBAR SPINE WITHOUT AND WITH [...] anatomy, as described. us Nelson Esqueda M.D. IMG MRI PROCEDURES Final Result * MR Cervical Spine without and with IV Contrast (04/08/2024 10:59 AM [employer]) Anatomical Region Laterality Modality Spine, Cervical Spine, Neuro radiology RST LOS, Neuroradiology ARZ [facility], Neuroradiology FLA [facility] N/A Magneti c Resonance Impressions 04/08/2024 11:21 AM [employer] 1. Enlargement of the pannus posterior to the dens, now with moderate-advanced narrowing of the spinal canal at C2 and cord deformity. 2. Advanced spinal canal narrowing at L3-L4 has progressed. 3. Interval postsurgical changes at L4-S2 with improved spinal canal narrowing at these levels. 4. Moderate-advanced bilateral C4-C5 and C5-C6 neural foraminal narrowing. 5. Transitional anatomy, as described. Narrative 04/08/2024 11:21 AM [employer] EXAM: MR LUMBAR SPINE WITHOUT AND WITH [...] Nelson NGUYEN MRI PROCEDURES Final Result * CT Lumbar Spine without IV Contrast (04/08/2024 8:44 AM [employer]) Anatomical Region Laterality Modality Lumbar Spine, Neuroradiology RST LOS, Neuroradiology ARZ LOS, Neuroradiology FLA LOS N/A Computed Tomography, Compute d Tomography Impressions 04/08/2024 9:20 AM [employer] 1. Redemonstrated postsurgical changes of posterior spinal [...] study from 05/01/2023 Narrative 04/08/2024 9:20 AM [employer]ED [employer] EXAM: CT LUMBAR SPINE WITHOUT IV CONTRAST [...] vertebral bodies. The current study extends from [id number] S2-S3 level. There is mild levocurvature of [...] when compared to prior CT studyfrom 05/01/2023 Nelson Esqueda M.D. [place] CT PROCEDURES Final Result * CT Cervical Spine without IV Contrast (04/08/2024 8:44 AM ARMOURED CAR ESCORT) Anatomical Region Laterality Modality Cervical Spine, Neuroradiolo gy RST LOS, Neuroradiology ARJoan LOS, Neuroradiology FLA LOS N/A Computed Tomography, Compute d Tomography 04/08/2024 8:34 AM ARMOURED CAR ESCORT Impressions 04/08/2024 8:56 AM ARMOURED CAR ESCORT 1. Moderate canal narrowing C5-6. 2. Foraminal narrowings most advanced at C4-5 and C5-6. 3. 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 Narrative 04/08/2024 8:56 AM ARMOURED CAR ESCORT EXAM: CT CERVICAL SPINE WITHOUT IV CONTRAST [...] the cervicalmedullary junction. us Nelson Esqueda M.D. [facility] [place]ED[place] Final Result * DX Cervical Spine 2-3 Views (04/08/2024 8:15 AM ARMOURED CAR ESCORT) Anatomical Region Laterality Modality Cervical Spine, Musculoskele ambar RST LOS, Neuroradiology ARZ LOS, Muskuloskeletal FLA LOS N/A Digita l Radiography Impressions 04/08/2024 8:47 AM ARMOURED CAR ESCORT Narrowing of the C4 through C7 interspaces. Mild anterolisthesis of C2, C3 and C7. Moderate-advanced facet and uncovertebral arthritis. Carotid calcifications. Little change since 09/22/2020. Narrative 04/08/2024 8:47 AM ARMOURED CAR ESCORT EXAM: DX CERVICAL SPINE 2-3 VIEWS Procedure Note Kriss Raines M.D. - 04/08/2024 EXAM: DX CERVICAL SPINE 2-3 VIEWS IMPRESSION: Narrowing of the C4 through C7 interspaces. Mild anterolisthesis of C2, C3and C7. Moderate-advanced facet and uncovertebral arthritis. Carotidcalcifications. Little change since 09/22/2020. us Nelson [facility] P ROCEDURES Final Result * DX Lumbar Spine 2-3 Views (04/08/2024 8:15 AM ARMOURED CAR ESCORT) Anatomical Region Laterality Modality Lumbar Spine, Musculoskeleta l RST LOS, Neuroradiology ARZ LOS, Muskuloskeletal FLA LOS N/A Digital Radiography Impressions 04/08/2024 8:52 AM ARMOURED CAR ESCORT Assuming a tiny riblet at T12, there [...] Pelvic surgical clips. Narrative 04/08/2024 8:52 AM ARMOURED CAR ESCORT EXAM: DX LUMBAR SPINE 2-3 VIEWS Procedure [...] thedistal sacrum. Vascular calcifications. Pelvic surgical clips. Nelson Esqueda M.D. [facility] DI[facility]NOSTIC IMAGING P [...] Skelton M.D. LAB BLOOD ADD-ON Final Result [facility] [address] [place] [address], [place] DTL [facility] [address] [place] [address] from Last 3 Months or Most Recently Relevant to Health Maintenance Insurance BLUE [employer]OSS [employer]UE [employer] MEDICARE Advance Directives For more information, please contact: [phone] Documents on File Type Date Recorded Patient Non Destructive Testing Scientist Expl anation Advance Directives 08/10/2023 12:15 PM Elias Zamarripa HCPOA/ADVOCATE/AGENT/R EPRESENTATIVE/SURROGAT E * Full Code (Latest [...] Elias Zamarripa Spouse Health Care Agent Aimee Marilou Daughter First Alternate Health Care Agent Care Teams Electric Motor Tester Assembler Relationship Specialty Start Date End Date Elsewhere, Pcp PCP - General Internal Medicine 05/10/22
--- OUTSIDE RECORDS SUMMARY | 2024-05-21 14:01 | XMS_ITS ---
Author Organization [facility] Address [address] [place] [address] Care Team Providers Care Airport Driver Name Role Phone Unavailable Unavailable Unavailable Surgery Details Not on file Complications Check Surgery Details section. Procedure Estimated Blood Loss Check Surgery Details section. Procedure Findings Check Surgery Details section. Procedure Specimens Taken Check Surgery Details section.
--- OUTSIDE RECORDS SUMMARY | 2024-05-21 14:01 | XMS_ITS | Encounter Summary ---
Author Organization [facility] Address [address] [place] [address] Care Team Providers Care Manager Hair Name Role Phone Elsewhere, Pcp Primary Care Provider Unavailabl e Reason for Visit * Reason Onset Date Comments OSM - Outside Materials 05/01/2024 Encounter Details Date Type Department Care Team (Latest Contact Info) Description 05/01/2024 Clinical Communication Department of Neurologic Surgery in [place], [place] [address] [place] [phone] Arianna Jeffries M.D. [address] [place] [phone] OSM - Outside Materials Social History Tobacco Use Types Packs/Day Years Used Date Smoking Tobacco: Former Cigarettes 0 10/03/1966 - 03/05/1974 Passive Smoke Exposure: Never Smokeless Tobacco: Never Alcohol Use Standard Drinks/Week Comments Yes 10 (1 standard drink = 0.6 oz pu re alcohol) [facility] Utilities Answer Date Recorded In the past 12 months has e electric, gas, oil, or water [employer] threatened to shut off services in your [...] often do you attend chur ch or mu-ism services? More than 4 times per year 08/15/2022 Do you belong to any clubs o r organizations such as yazdanism groups, unions, fraternal or athletic groups, or [...] Answer Date Recorded PHQ-2 Score 2 01/04/2024 [facility] Occupat ional Health - Occupational [...] your living situation today? I have a [facility] place to live 12/01/2023 Education Answer Date Recorded What is the highest level of school you have completed or the highest degree you have received? Bachelor's degree (e.g., BA, AB, BS) 08/15/2022 Comments No Sex and Gender Information Value Date Recorded Sex Assigned at Female 05/11/2022 7:48 AM BATTERY CHARGER Legal Sex Female 9:30 PM BATTERY CHARGER Gender Identity Female 05/11/2022 7:48 AM BATTERY CHARGER Sexual Orientation Straight 05/11/2022 7: 48 AM BATTERY CHARGER documented as of this encounter Plan of Treatment Upcoming Encounters Date Type Department Care Team (Latest Contact Info) Description 05/29/2024 12:15 PM BATTERY CHARGER Clinical Communication Virtual Review in [place], [place] [address] [place] [phone] 05/31/2024 11:00 AM BATTERY CHARGER Appointment Department of Laboratory Medicine and Pathology, [facility], in [place], [place] [address] [place] [phone] Patricia Parker APRN, C.N.P., D.N.P. [address] [place] [phone] 05/31/2024 2:00 PM BATTERY CHARGER Comprehensive Visit Preoperative Evaluation Center in [place], [place] [address] [place] [phone] Arianna Jeffries M.D. [address] [place] [address] [phone] 05/31/2024 2:45 PM BATTERY CHARGER Comprehensive Visit Preoperative Evaluation Center in [place], [place] [address] [place] [address] [phone] Chris Moreno APRN, C.N.P., M.S. [address] [place] [phone] 06/03/2024 8:15 AM BATTERY CHARGER Hospital Encounter Post Anesthesia Care Unit in [place] [id number] [place] [phone] Tahir Moore M.D. [address] [place] [phone] 06/03/2024 8:15 AM BATTERY CHARGER - 06/03/2024 2:12 PM BATTERY CHARGER Surgery [facility]ST ROM[facility] MAIN OR [address] [place] [phone] Tahir Moore M.D. [address] [place] [phone] C1-2 fusion 07/02/2024 11:00 AM BATTERY CHARGER Procedure visit Division of Pain Medicine in [place], [place] [address] [place] [phone] Adam Barlow M.D. 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
--- OUTSIDE RECORDS SUMMARY | 2024-05-21 14:02 | XMS_ITS | Encounter Summary ---
Author Organization [facility] Address [address] [place] [address] Care Team Providers Care Jailer Chief Name Role Phone Elsewhere, Pcp Primary Care Provider Unavailabl e Reason for Referral * MRI/CAT/PET Scan (Routine) - Closed Specialty Diagnoses / Procedures Referred By Contac t Referred To Contact Radiology Diagnoses Abnormal Gait Non Orthopedic Procedures CT Cervical Spine without IV Contrast Nelson Esqueda M.D. [address] [place] [address] Phone: tel: fax: [facility] Referral ID Status Reason Start Date Expiration Date Visits Re quested Visits Authorized [id number] Closed 04/07/2023 04/06/2024 1 1 CONDUCTOR WAFERS MARKER * MRI/CAT/PET Scan (Routine) - Closed Specialty Diagnoses / Procedures Referred By Contac t Referred To Contact Radiology Diagnoses Fusion Lumbar Spine Status Post Procedures CT Lumbar Spine without IV Contrast Nelson Esqueda M.D. [address] [place] [address] Phone: tel: fax: [facility] Referral ID Status Reason Start Date Expiration Date Visits Re quested Visits Authorized [id number] Closed 04/07/2023 04/06/2024 1 1 CONDUCTOR WAFERS MARKER Reason for Visit * MRI/CAT/PET Scan (Routine) - Closed Specialty Diagnoses / Procedures Referred By Chanel t Referred To Contact Radiology Diagnoses Abnormal Gait Non Orthopedic Procedures CT Cervical Spine without IV Contrast Nelson Esqueda M.D. [address] [place] [phone] Phone: tel: fax: [facility] Referral ID Status Reason Start Date Expiration Date Visits Re quested Visits Authorized [id number] Closed 04/07/2023 04/06/2024 1 1 Encounter Details Date Type Department Care Team (Latest Contact Info) Description 04/08/2024 8:13 AM SEMICONDUCTOR WAFERS MARKER - 04/08/2024 8:46 AM SEMICONDUCTOR WAFERS MARKER Hospital Encounter Department of Radiology, [facility], in [place], [place] [address] [place] [phone] Nelson Esqueda M.D. [address] [place] [phone] Fusion Lumbar Spine Status Post; Abnormal Gait Non Orthopedic Discharge Disposition: Home or Self Care Social History Tobacco Use Types Packs/Day Years Used Date Smoking Tobacco: Former Cigarettes 0 10/03/1966 - 03/05/1974 Passive Smoke Exposure: Never Smokeless Tobacco: Never Alcohol Use Standard Drinks/Week Comments Yes 10 (1 standard drink = 0.6 oz pu re alcohol) [facility] Utilities Answer Date Recorded In the past 12 months has [facility] [employer], gas, oil, or water [employer] threatened to shut off services in your [...] often do you attend chur ch or muslim services? More than 4 times per year 08/15/2022 Do you belong to any clubs o r organizations such as mandaen groups, unions, fraternal or athletic groups, or [...] Answer Date Recorded PHQ-2 Score 2 01/04/2024 [facility] of Occupat ional Health - Occupational Stress [...] your living situation today? I have a [facility] place to live 12/01/2023 Education Answer Date Recorded What is the highest level of school you have completed or the highest degree you have received? Bachelor's degree (e.g., BA, AB, BS) 08/15/2022 Comments No Sex and Gender Information Value Date Recorded Sex Assigned at Female 05/11/2022 7:48 AM SEMICONDUCTOR WAFERS MARKER Legal Sex Female 9:30 PM SEMICONDUCTOR WAFERS MARKER Gender Identity Female 05/11/2022 7:48 AM SEMICONDUCTOR WAFERS MARKER Sexual Orientation Straight 05/11/2022 7: 48 AM SEMICONDUCTOR WAFERS MARKER documented as of this encounter Medications at [...] tablet Take 25 mcg by mouth daily. ferrous sulfate 325 mg (65 mg iron) [...] week after surgery 60 tablet 1 09/07/2022 spironolactone (Aldactone) 25 mg tablet Take 0.5 tablets by mouth daily. 04/04/2024 triamcinolone (Kenalog) 0.1 % ointment Apply topically as needed for rash. 01/16/2024 documented as of this encounter Plan of Treatment Upcoming Encounters Date Type Department Care Team (Latest Contact Info) Description 05/29/2024 12:15 PM SEMICONDUCTOR WAFERS MARKER Clinical Communication Virtual Review in [place], [place] 200 [place] [phone] 05/31/2024 11:00 AM SEMICONDUCTOR WAFERS MARKER Appointment Department of Laboratory Medicine and Pathology, [facility], in [place], [place] [address] [place] [phone] Patricia Parker APRN, C.N.P., D.N.P. [address] [place] [address] [phone] 05/31/2024 2:00 PM SEMICONDUCTOR WAFERS MARKER Comprehensive Visit Preoperative Evaluation Center in [place], [place] [address] [place] [address] [phone] Arianna Jeffries M.D. [address] [place] [phone] 05/31/2024 2:45 PM SEMICONDUCTOR WAFERS MARKER Comprehensive Visit Preoperative Evaluation Center in [place], [place] [address] [place] [phone] Chris Moreno, JOHNSON, C.N.P., M.S. [address] [place] [address] [phone] 06/03/2024 8:15 AM SEMICONDUCTOR WAFERS MARKER Hospital Encounter Post Anesthesia Care Unit in [place] [id number] [place] [phone] Tahir Moore M.D. [address] [place] [address] [phone] 06/03/2024 8:15 AM SEMICONDUCTOR WAFERS MARKER - 06/03/2024 2:12 PM SEMICONDUCTOR WAFERS MARKER Surgery [facility] MAIN OR [address] [place] [phone] Tahir Moore M.D. [address] [place] [phone] C1-2 fusion 07/02/2024 11:00 AM SEMICONDUCTOR WAFERS MARKER Procedure visit Division of Pain Medicine in [place], [place] [address] [place] [phone] Adam Barlow M.D. 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 06/03/2024 8:15 AM SEMICONDUCTOR WAFERS MARKER documented as of this encounter Procedures Procedure Name Priority Date/Time Associated Diagnosis Comments CT LUMBAR SPINE WITHOUT IV CONTRAST RAD - Routine (most inpatients and all outpatients) 04/08/2024 8:44 AM SEMICONDUCTOR WAFERS MARKER Fusion Lumbar Spine Status Post CT CERVICAL SPINE WITHOUT IV CONTRAST RAD - Routine (most inpatients and all outpatients) 04/08/2024 8:44 AM SEMICONDUCTOR WAFERS MARKER Abnormal Gait Non Orthopedic documented in this encounter Results * CT Cervical Spine without IV Contrast (04/08/2024 8:44 AM SEMICONDUCTOR WAFERS MARKER) Anatomical Region Laterality Modality Cervical Spine, Neuroradiolo gy RST LOS, Neuroradiology ARZ LOS, Neuroradiology FLA LOS N/A Computed Tomography, Compute d Tomography 04/08/2024 8:34 AM SEMICONDUCTOR WAFERS MARKER Impressions 04/08/2024 8:56 AM SEMICONDUCTOR WAFERS MARKER 1. Moderate canal narrowing C5-6. 2. Foraminal narrowings most advanced at C4-5 and C5-6. 3. 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 Narrative 04/08/2024 8:56 AM SEMICONDUCTOR WAFERS MARKER EXAM: CT CERVICAL SPINE WITHOUT IV CONTRAST [...] with mass effect on the cervicalmedullary junction. Nelson Esqueda M.D. IMG CT PROCEDURES Final Result * CT Lumbar Spine without IV Contrast (04/08/2024 8:44 AM SEMICONDUCTOR WAFERS MARKER) Anatomical Region Laterality Modality Lumbar Spine, Neuroradiology RST LOS, Neuroradiology ARZ LOS, Neuroradiology FLA [facility] N/A Computed Tomography, Compute d Tomography Impressions 04/08/2024 9:20 AM SEMICONDUCTOR WAFERS MARKER 1. Redemonstrated postsurgical changes of posterior spinal [...] study from 05/01/2023 Narrative 04/08/2024 9:20 AM SEMICONDUCTOR WAFERS MARKER EXAM: CT LUMBAR SPINE WITHOUT IV CONTRAST [...] S3 levels. Procedure Note Eric Ogden M.B.B.S., MMED. - 04/08/2024 EXAM: CT LUMBAR SPINE WITHOUT IV CONTRAST COMPARISON: Prior CT body study dated 05/01/2023. Lumbar spine radiographsdated 04/08/2024 FINDINGS: The last unfused vertebra is designated as L5. There are 5lumbar type vertebral bodies. The current study extends from [id number] S2-S3 level. There is mild levocurvature of [...] compared to prior CT studyfrom 05/01/[address] PROCEDURES Final Result documented in this encounter Visit Diagnoses Diagnosis Fusion Lumbar Spine Status Post Abnormal Gait Non Orthopedic Stenosis Spinal documented in this encounter Additional Health Concerns Assessment Noted Time PHQ-9 Depression Total Score: 5 01/04/20 24 3:57 AM CDT documented as of this encounter Care Teams Jailer Chief Relationship Specialty Start Date End Date Elsewhere, Pcp PCP - General Internal Medicine 05/10/22 documented as of this encounter
--- OUTSIDE RECORDS SUMMARY | 2024-05-21 14:02 | XMS_ITS | Encounter Summary ---
Author Organization [facility] Address [address] [place] [phone] Care Team Providers Care Control Operator Name Role Phone Elsewhere, Pcp Primary Care Provider Unavailabl e Reason for Visit * Outpatient (Routine) - Closed Specialty Diagnoses / Procedures Referred By Chanel segovia Referred To Contact Cardiovascular Surgery Kary Wahl P.A.-C. [address] [place] [phone] Phone: tel: fax: [facility] Referral ID Status Reason Start Date Expiration Date Visits Re quested Visits Authorized [id number] Closed 01/09/2024 07/10/2025 1 1 Encounter Details Date Type Department Care Team (Latest Contact Info) Description 01/17/2024 12:30 PM CDT Telemedicine Department of Cardiovascular Surgery in [place], [place] [address] [place] [phone] Kary Wahl P.A.-C. [address] [place] [phone] Cindy Oliva P.A.-C. [address] [place] [phone] Seroma Initial (Primary Dx); Follow Up Examination Postoperative Visit Social History Tobacco Use Types Packs/Day Years Used Date Smoking Tobacco: Former Cigarettes 0 10/03/1966 - 03/05/1974 Smokeless Tobacco: Never Alcohol Use Standard Drinks/Week Comments Yes 10 (1 standard drink = 0.6 oz pu re alcohol) [facility] Utilities Answer Date Recorded In the past 12 months has e [employer], gas, oil, or water [employer] threatened to shut off services in your [...] week 08/15/2022 How often do you attend [facility] or denominational services? More than 4 times per year 08/15/2022 Do you belong to any clubs o r organizations such as religion groups, unions, fraternal or athletic groups, or [...] Answer Date Recorded PHQ-2 Score 2 01/04/2024 [facility] - Occupational Stress Questionnaire Answer Date [...] your living situation today? I have a [facility] place to live 12/01/2023 Education Answer Date Recorded What is the highest level of school you have completed or the highest degree you have received? Bachelor's degree (e.g., BA, AB, BS) 08/15/2022 Comments No Sex and Gender Information Value Date Recorded Sex Assigned at Female 05/11/2022 7:48 AM AUTOMATIC FURNACE OPERATOR Legal Sex Female 9:30 PM AUTOMATIC FURNACE OPERATOR Gender Identity Female 05/11/2022 7:48 AM AUTOMATIC FURNACE OPERATOR Sexual Orientation Straight 05/11/2022 7: 48 AM AUTOMATIC FURNACE OPERATOR documented as of this encounter Progress Notes * Cindy Oliva P.A.-C. - 01/17/2024 12:30 PM CDT Gladys Zamarripa : 1950 Visit Date: 01/17/24 MUN-YKEY-LL-FACE VISIT Consult conducted via real-time audio/video technology by Radha Guerrero in [facility] to the patient in Patient's Home SUBJECTIVE Surgical Procedure: Right groin exploration. Excision of seroma capsule. Complex right groin wound closure. Excision of mole from skin of right groin. Surgeon: Dr. Aguayo Surgical Date: 01/09/24 Discharge Date: 01/09/24 HISTORY OF PRESENT ILLNESS Gladys Zamarripa is a 73 y.o. female who was contacted for a routine postoperative follow-up visit. She is status post the procedure listed above and was discharged to home the same day. Ms. Zamarripa reports that the transition to the outpatient setting has gone well. Incisional pain iswell controlled with use of Tylenol only. The surgical incision is healing well without concerns for infection. She states the scab just fell off. She notes she still has some generalized swelling over the upper pubic area. She saw her occupational therapist yesterday and was given as compression garment for this (looks like biker shorts but with extra compression over the lower abdomen). She saw her flying squad salesperson recently and he wondered why she was still on aspirin. CURRENT MEDICATIONS Current Medications: acetaminophen (TYLENOL) 500 mg tablet, Take 1,000 mg by mouth every 8 (eight) hours. allopurinoL (ZYLOPRIM) 300 mg tablet, Take 150 mg by mouth daily. aspirin 81 mg chewable tablet, Chew 1 tablet (81 mg total) daily. atorvastatin (LIPITOR) 20 mg tablet, Take 20 mg by mouth daily. buPROPion XL (WELLBUTRIN XL) 150 mg 24 hr tablet, Take 150 mg by mouth daily. calcium carbonate 1,500 mg (600 mg calcium) tablet, Take 1 tablet by mouth daily. carvediloL (COREG) 12.5 mg tablet, Take 2 tablets by mouth 2 (two) times a day with meals. cholecalciferol, vitamin D3, 25 mcg (1,000 Unit) tablet, Take 25 mcg by mouth daily. cyanocobalamin (VITAMIN B12) 1,000 mcg/mL injection, Inject 1,000 mcg intramuscularly every 30 (thirty) days. ferrous sulfate 325 mg (65 mg iron) tablet, Take 325 mg by mouth 3 (three) times a week. Monday, Monday, Monday furosemide (LASIX) 20 mg tablet, Take 2 tablets (40 mg total) by mouth 2 (two) times a day for 7 days, THEN 1 tablet (20 mg total) 2 (two) times a day for 7 days, THEN 1 tablet (20 mg total) daily for 14 days. Continuation per discretion of PCP.. (Patient taking differently: Takes 1 tablet as needed for swelling, if swelling remains after 1 tablet will sometimes take an additional tablet.) gabapentin (NEURONTIN) 300 mg capsule, Take 300 mg by mouth 4 (four) times a day. lisinopriL (PRINIVIL,ZESTRIL) 5 mg tablet, Take 1 tablet (5 mg total) by mouth 2 (two) times a day. magnesium oxide (MAG-OX) 400 mg (241.3 mg magnesium) tablet, Take 1 tablet by mouth daily. omega 1-lob-puq-fish oil (fish oil) 1,200 (144-216) mg capsule, Take 1 capsule by mouth daily. omeprazole (PriLOSEC) [address] capsule, Take 20 mg by mouth every morning before breakfast. pediatric hkvlnwujufoz-siqo-jmylanfi (FLINTSTONES COMPLETE) chewable tablet, Chew 1 tablet daily. potassium chloride (K-TAB) 20 mEq CR tablet, Take 20 mEq by mouth daily as needed (takes when taking furosemide). rivaroxaban (XARELTO) 20 mg tablet, Take 1 tablet (20 mg total) by mouth daily. Okay to start retaking 1 week after surgery (Patient taking differently: Take 20 mg by mouth daily with evening meal. Okay to start retaking 1 week after surgery) OBJECTIVE PHYSICAL EXAMINATION General: Alert and oriented. No acute distress. Incision: Right groin incision approximated, clean, dry, and intact. No surrounding erythema or other clinical signs of infection. ASSESSMENT / PLAN #1 Seroma Initial #2 Follow Up Examination Postoperative Visit Overall, Ms. Zamarripa is recovering well following seroma excision/repair. Postoperative recovery and expectations were discussed in detail. Incision Care: -I re-emphasized the importance of washing the incision every day in the shower with a mild liquid soap. -Signs of infection and reasons to call were reviewed. -She wants to get back to exercising in the water and I told her she could do that as soon as all she saw was scar and no openings of any kind or scab. Pain Management: I discussed pain management options with the patient including both medication and non-medication approaches. -Nonpharmacologic options for pain management were discussed including: ice and wearing the compression shorts supplied by occupational therapy. Antiplatelet Recommendations: I told her that she needed to be on aspirin for 6 months after robotic surgery which was done in July. She verbalized understanding. Surgical follow up is completed at this time but we remain available should surgical concerns arise. I have answered all questions/concerns to the best of my ability. Our contact information was provided with recommendations to call with any questions or concerns. Thank you for the opportunity to participate in the care of this patient. I personally spent 30 minutes in care of the patient today. Time includes taj-jtga-le-face patient care and review of records. Cindy Oliva P.A.-C. documented in this encounter Plan of Treatment Upcoming Encounters Date Type Department Care Team (Latest Contact Info) Description 05/29/2024 12:15 PM AUTOMATIC FURNACE OPERATOR Clinical Communication Virtual Review in [place], [place] [address] [place] [phone] 05/31/2024 11:00 AM AUTOMATIC FURNACE OPERATOR Appointment Department of Laboratory Medicine and Pathology, [facility], in [address] [phone] Patricia Parker APRN, C.N.P., D.N.P. [address] [place] [phone] 05/31/2024 2:00 PM AUTOMATIC FURNACE OPERATOR Comprehensive Visit Preoperative Evaluation Center in [place], [place] [address] [place] [phone] Arianna Jeffries M.D. [address] [place] [phone] 05/31/2024 2:45 PM AUTOMATIC FURNACE OPERATOR Comprehensive Visit Preoperative Evaluation Center in [place], [place] [address] [place] [phone] Chris Moreno APRN, C.N.P., M.S. [address] [place] [phone] 06/03/2024 8:15 AM AUTOMATIC FURNACE OPERATOR Hospital Encounter Post Anesthesia Care Unit in [place], [place] [address] [place] [phone] Tahir Moore M.D. [address] [place] [phone] 06/03/2024 8:15 AM AUTOMATIC FURNACE OPERATOR - 06/03/2024 2:12 PM AUTOMATIC FURNACE OPERATOR Surgery [facility] OR [address] [place] [phone] Tahir Moore M.D. [address] [place] [phone] C1-2 fusion 07/02/2024 11:00 AM AUTOMATIC FURNACE OPERATOR Procedure visit Division of Pain Medicine in [place], [place] [address] [place] [phone] Adam Barlow M.D. 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
--- OUTSIDE RECORDS SUMMARY | 2024-05-21 14:02 | XMS_ITS | Encounter Summary ---
Author Organization [facility] Address 200 [place] [address] Care Team Providers Care Transmission Builder Name Role Phone Elsewhere, Pcp Primary Care Provider Unavailabl e Reason for Referral * MRI/CAT/PET Scan (Routine) - Closed Specialty Diagnoses / Procedures Referred By Contac t Referred To Contact Radiology Diagnoses Fusion Lumbar Spine Status Post Procedures MR Lumbar Spine without and with IV Contrast Nelson Esqueda M.D. 200 [place] [phone] Phone: tel: fax: [facility] Referral ID Status Reason Start Date Expiration Date Visits Re quested Visits Authorized [id number] Closed 09/11/2023 09/10/2024 1 1 NUE CYCLE ANALYST * MRI/CAT/PET Scan (Routine) - Closed Specialty Diagnoses / Procedures Referred By Contac t Referred To Contact Radiology Diagnoses Abnormal Gait Non Orthopedic Procedures MR Cervical Spine without and with IV Contrast Nelson Esqueda M.D. 200 [place] [address] Phone: tel: fax: [facility] Referral ID Status Reason Start Date Expiration Date Visits Re quested Visits Authorized [id number] Closed 04/07/2023 04/06/2024 1 1 NUE CYCLE ANALYST Reason for Visit * MRI/CAT/PET Scan (Routine) - Closed Specialty Diagnoses / Procedures Referred By Chanel t Referred To Contact Radiology Diagnoses Fusion Lumbar Spine Status Post Procedures MR Lumbar Spine without and with IV Contrast Nelson Esqueda M.D. [address] [place] [phone] Phone: tel: fax: [facility] Referral ID Status Reason Start Date Expiration Date Visits Re quested Visits Authorized [id number] Closed 09/11/2023 09/10/2024 1 1 Encounter Details Date Type Department Care Team (Latest Contact Info) Description 04/08/2024 8:47 AM REVENUE CYCLE ANALYST - 04/08/2024 11:59 PM REVENUE CYCLE ANALYST Hospital Encounter Department of Radiology, [place], [place] [address] [place] [phone] Nelson Esqueda M.D. [address] [place] [phone] Abnormal Gait Non Orthopedic; Fusion Lumbar Spine Status Post Discharge Disposition: Home or Self Care Social History Tobacco Use Types Packs/Day Years Used Date Smoking Tobacco: Former Cigarettes 0 10/03/1966 - 03/05/1974 Passive Smoke Exposure: Never Smokeless Tobacco: Never Alcohol Use Standard Drinks/Week Comments Yes 10 (1 standard drink = 0.6 oz pu re alcohol) [facility] Utilities Answer Date Recorded In the past 12 months has [facility] [employer], gas, oil, or water [employer] threatened to shut off services in your [...] How often do you attend chur or anabaptist services? More than 4 times per year 08/15/2022 Do you belong to any clubs o r organizations such as jehovah's witness groups, unions, fraternal or athletic groups, or [...] Answer Date Recorded PHQ-2 Score 2 01/04/2024 [facility] - Occupational Stress [...] your living situation today? I have a [facility] place to live 12/01/2023 Education Answer Date Recorded What is the highest level of school you have completed or the highest degree you have received? Bachelor's degree (e.g., BA, AB, BS) 08/15/2022 Comments No Sex and Gender Information Value Date Recorded Sex Assigned at Female 05/11/2022 7:48 AM REVENUE CYCLE ANALYST Legal Sex Female 9:30 PM REVENUE CYCLE ANALYST Gender Identity Female 05/11/2022 7:48 AM REVENUE CYCLE ANALYST Sexual Orientation Straight 05/11/2022 7: 48 AM REVENUE CYCLE ANALYST documented as of this encounter Last Filed Vital Signs Vital Sign Reading Time Taken Comments Blood Pressure - - Pulse 84 04/08/2024 11:16 AM REVENUE CYCLE ANALYST Temperature - - Respiratory Rate - - Oxygen Saturation 95% 04/08/2024 11:16 AM REVENUE CYCLE ANALYST Inhaled Oxygen Concentration - - Weight - - Height - - Body Mass Index - - documented in this encounter Medications at Time of Discharge [...] rash. 01/16/2024 documented as of this encounter Nursing Notes * Mamie Thomas R.N. - 04/08/2024 9:45 AM CST Radiology Minimal Sedation Screening (Ativan) Does the patient have a responsible adult accompanying them? Yes - record name and phone number of accompanying adult , Elias Zamarripa, Is the patient oxygen dependant? No - continue. Is patient scheduled for an MR proctogram or neuro functional MR? No - continue. Does patient have a hx of narrow angle glaucoma? No - continue. Does patient have an allergy to lorazepam or other benzodiazepines? No - continue. Has the patient taken any other benzodiazepines or sedating medications today? No - continue. Is the patient scheduled for a MR guided breast biopsy, or do they have any other appointments today that may require attention to detail or informed consent? No - continue. Is the patient 18 and older: Yes - follow Radiant medication guidelines to titrate sedation as appropriate. NUE CYCLE ANALYST documented in this encounter Plan of Treatment Upcoming Encounters Date Type Department Care Team (Latest Contact Info) Description 05/29/2024 12:15 PM REVENUE CYCLE ANALYST Clinical Communication Virtual Review in [place], [place] 200 [place] [phone] 05/31/2024 11:00 AM REVENUE CYCLE ANALYST Appointment Department of Laboratory Medicine and Pathology, [facility], in [place], [place] [address] [place] [phone] Patricia Parker, JOHNSON, C.N.P., D.N.P. [address] [place] [phone] 05/31/2024 2:00 PM REVENUE CYCLE ANALYST Comprehensive Visit Preoperative Evaluation Center in [place], [place] [address] [place] [phone] Arianna Jeffries M.D. [address] [place] [phone] 05/31/2024 2:45 PM REVENUE CYCLE ANALYST Comprehensive Visit Preoperative Evaluation Center in [place], [place] [address] [place] [phone] Chris Moreno, JOHNSON, C.N.P., M.S. [address] [place] [phone] 06/03/2024 8:15 AM REVENUE CYCLE ANALYST Hospital Encounter Post Anesthesia Care Unit in [place], [place] [address] [place] [phone] Tahir Moore M.D. [address] [place] [phone] 06/03/2024 8:15 AM REVENUE CYCLE ANALYST - 06/03/2024 2:12 PM REVENUE CYCLE ANALYST Surgery [facility] OR [address] [place] [phone] Tahir Moore M.D. [address] [place] [phone] C1-2 fusion 07/02/2024 11:00 AM REVENUE CYCLE ANALYST Procedure visit Division of Pain Medicine in [place], [place] [address] [place] [phone] Adam Barlow M.D. [address] [place] [phone] Scheduled Procedures Name Priority Associated Diagnoses Date/Ti me 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 06/03/2024 8:15 AM REVENUE CYCLE ANALYST documented as of this encounter Procedures Procedure Name Priority Date/Time Associated Diagnosis Comments MR LUMBAR SPINE WITHOUT AND WITH IV CONTRAST RAD - Routine (most inpatients and all outpatients) 04/08/2024 10:59 AM REVENUE CYCLE ANALYST Fusion Lumbar Spine Status Post MR CERVICAL SPINE WITHOUT AND WITH IV CONTRAST RAD - Routine (most inpatients and all outpatients) 04/08/2024 10:59 AM REVENUE CYCLE ANALYST Abnormal Gait Non Orthopedic documented in this encounter Results * MR Lumbar Spine without and with IV Contrast (04/08/2024 10:59 AM REVENUE CYCLE ANALYST) Anatomical Region Laterality Modality Lumbar Spine, Neuroradiology RST LOS, Neuroradiology ARZ LOS, Neuroradiology FLA LOS N/A Magnetic Resonance Impressions 04/08/2024 11:21 AM REVENUE CYCLE ANALYST 1. Enlargement of the pannus posterior to the dens, now with moderate-advanced narrowing of the spinal canal at C2 and cord deformity. 2. Advanced spinal canal narrowing at L3-L4 has progressed. 3. Interval postsurgical changes at L4-S2 with improved spinal canal narrowing at these levels. 4. Moderate-advanced bilateral C4-C5 and C5-C6 neural foraminal narrowing. 5. Transitional anatomy, as described. Narrative 04/08/2024 11:21 AM REVENUE CYCLE ANALYST EXAM: MR LUMBAR SPINE WITHOUT AND WITH [...] and with IV Contrast (04/08/2024 10:59 AM REVENUE CYCLE ANALYST) Anatomical Region Laterality Modality Spine, Cervical Spine, Neuro radiology RST [facility], Neuroradiology ARZ [facility], Neuroradiology FLA [facility] N/A Magneti c Resonance Impressions 04/08/2024 11:21 AM REVENUE CYCLE ANALYST 1. Enlargement of the pannus posterior to the dens, now with moderate-advanced narrowing of the spinal canal at C2 and cord deformity. 2. Advanced spinal canal narrowing at L3-L4 has progressed. 3. Interval postsurgical changes at L4-S2 with improved spinal canal narrowing at these levels. 4. Moderate-advanced bilateral C4-C5 and C5-C6 neural foraminal narrowing. 5. Transitional anatomy, as described. Narrative 04/08/2024 11:21 AM REVENUE CYCLE ANALYST EXAM: MR LUMBAR SPINE WITHOUT AND WITH [...] described. Nelson NGUYEN MRI PROCEDURES Final Result documented in this encounter Visit Diagnoses Diagnosis Abnormal Gait Non Orthopedic Fusion Lumbar Spine Status Post Stenosis Spinal documented in this encounter Administered Medications Inactive Administered Medications - up to 3 most recent administrations Medication Order MAR Action Action Date Dose Rate Site gadobutrol injection 0.01-30 mL (Gadavist) 0.01-30 mL, intravenous, Once in imaging, contrast, Starting on Mon04/08/24 at 0904, For 1 dose, Imaging Protocol Orders, Dose per Radiant Medication Guidelines Intrathecal doses greater than 0.25 mL not recommended. Given 04/08/2024 11:00 AM REVENUE CYCLE ANALYST 7.5 mL LORazepam tablet 0.5 mg (Ativan) 0.5 mg, sublingual, As needed, anxiety, Starting on 04/08/24 at 0904, For 4 doses, Imaging Protocol Orders, 1 mg by mouth once as needed for anxiety related to radiology study. May administer 0.5 mg dose if patient prefers. May repeat every 15 minutes if anxiety persists (2 mg maximum dose). Given 04/08/2024 9:14 AM REVENUE CYCLE ANALYST 1 mg documented in this encounter Additional Health Concerns Assessment Noted Time PHQ-9 Depression Total Score: 5 01/04/20 3:57 AM CDT documented as of this encounter Care Teams Transmission Builder Relationship Specialty Start Date End Date Elsewhere, Pcp PCP - General Internal Medicine 05/10/22 documented as of this encounter
--- OUTSIDE RECORDS SUMMARY | 2024-05-21 14:02 | XMS_ITS | Encounter Summary ---
Author Organization [facility] Address [address] [place] [address] Care Team Providers Care Cobbler Mckay Name Role Phone Elsewhere, Pcp Primary Care Provider Unavailabl e Reason for Referral * Outpatient (Routine) - Closed Specialty Diagnoses / Procedures Referred By Contac t Referred To Contact Spine Diagnoses Pain Hip Right Arianna Jeffries M.D. [address] [place] [address] Phone: tel: fax: [facility] Referral ID Status Reason Start Date Expiration Date Visits Re quested Visits Authorized [id number] Closed 04/08/2024 10/08/2025 1 1 CLINICAL COORDINATOR Reason for Visit * Outpatient (Routine) - Closed Specialty Diagnoses / Procedures Referred By Contac t Referred To Contact Neurological Surgery Nelson Esqueda M.D. [address] [place] [address] Phone: tel: fax: [facility] Referral ID Status Reason Start Date Expiration Date Visits Re quested Visits Authorized [id number] Closed 04/07/2023 04/06/2026 1 1 Encounter Details Date Type Department Care Team ([facility] Contact Info) Description 04/08/2024 3:30 PM RN CLINICAL COORDINATOR Office Visit Department of Neurologic Surgery in [place], [place] [address] [place] [address] Arianna Jeffries M.D. [address] [place] [address] Pain Hip Right (Primary Dx); Osteoarthritis; Osteopenia Social History Tobacco Use Types Packs/Day Years Used Date Smoking Tobacco: Former Cigarettes 0 10/03/1966 - 03/05/1974 Passive Smoke Exposure: Never Smokeless Tobacco: Never Alcohol Use Standard Drinks/Week Comments Yes 10 (1 standard drink = 0.6 oz pu re alcohol) [facility] Utilities Answer Date Recorded In the past 12 months has e [place], gas, oil, or water [employer] threatened to shut off services in your [...] often do you attend chur ch or latter day services? More than 4 times per year 08/15/2022 Do you belong to any clubs o r organizations such as restoration groups, unions, fraternal or athletic groups, or [...] Answer Date Recorded PHQ-2 Score 2 01/04/2024 [facility] Occupat ional [facility] - Occupational Stress Questionnaire Answer Date Recorded [...] living situation today? I have a [facility] place to live 12/01/2023 Education Answer Date Recorded What is the highest level of school you have completed or the highest degree you have received? Bachelor's degree (e.g., BA, AB, BS) 08/15/2022 Comments No Sex and Gender Information Value Date Recorded Sex Assigned at Female 05/11/2022 7:48 AM RN CLINICAL COORDINATOR Legal Sex Female 9:30 PM RN CLINICAL COORDINATOR Gender Identity Female 05/11/2022 7:48 AM RN CLINICAL COORDINATOR Sexual Orientation Straight 05/11/2022 7: 48 AM RN CLINICAL COORDINATOR documented as of this encounter Consult Notes * Arianna Jeffries M.D. - 04/08/2024 3:30 PM CST Hip pain: Spine Center Talk to Dr. Esqueda re: pannus treatment Osteopenia: DXA to evaluate your bone health NEUROSURGERY CONSULT Referring physician: Dr. Esqueda Reason for consultation: Neurogenic Claudication Relevant Clinical Course Gladys Zamarripa is a 73 y.o. female who underwent L3-S1 posterior lumbar instrumented fusion and L3-4 and L4-5 transforaminal lumbar interbody fusion with Dr. Hahn and Dr. Zheng in Aug 2022 presentsfor a follow-up appointment. She last saw Dr. Esqueda in March and he ordered cervical spine imaging due to hand dysfunction. She reports that her hand dexterity has been worsening and she feels weaker in her hands. She dropsthings often. She also reports balance issues though that has been improving with PT. Denies bowel/bladder issues. Denies upper extremity weakness, numbness, pain. She reports ongoing hip and neurogenic claudication-type pain. The neurogenic claudication pain starts in her right hip and includes her right anterior thigh and buttocks, worse with walking, improved with leaning forward or resting. The left side hurts slightly but not as significantly as the right leg. This pain has been progressive and is significantly impacting her ability to walk. She might be able to walk to the end of the hallway without the walker. At the end of the day, she reports back soreness. She also reports pain in both hips, worse in the morning, improved with stretching and gentle activity, not responsive to cortisone shots or gluteal injections She has been undergoing PT weekly since september, which has improved her pain with walking through stronger muscles. Diagnostics IMPRESSION: 1. Enlargement of the pannus posterior to the dens, now with moderate-advanced narrowing of the spinal canal at C2 and cord deformity. 2. Advanced spinal canal narrowing at L3-L4 has progressed. 3. Interval postsurgical changes at L4-S2 with improved spinal canal narrowing at these levels. 4. Moderate-advanced bilateral C4-C5 and C5-C6 neural foraminal narrowing. 5. Transitional anatomy, as described. Assessment/Plan Patient Active Problem List Diagnosis Stenosis Spinal Atrial Fibrillation Longstanding Persistent (HCC) Cardiomegaly Major Depressive Disorder, Recurrent, Unspecified (HCC) Hyperlipidemia Hypertension Essential Primary Anemia Gout Anemia Of Chronic Disease Spinal Stenosis Lumbar Region Without Neurogenic Claudication Regurgitation Mitral Preoperative Examination Cardiovascular Deficiency Vitamin D Osteoarthritis Malignant Neoplasm Of Skin Squamous Cell Carcinoma Alcohol Mild Use Disorder (Abuse) Uncomplicated Chronic Systolic (Congestive) Heart Failure (HCC) Repair Mitral Valve Status Post Anemia Posthemorrhagic Acute (Blood Loss Anemia) Leukocytosis Hyponatremia Pancytopenia (HCC) Seroma Initial Follow Up Examination Postoperative Visit We discussed the clinical presentation, imaging findings and treatment options 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 I explained that the cervicalmyelopathy is the more critical of the spine pathologies to address first. The pannus is deforming her cervical spinal cord and although the hand dexterity issues do not seem as bothersome as her lumbar spinal stenosis, there is significantly more danger associated with the cervical myelopathy fromthe pannus, which has grown significantly since 2020. I defined and explained the following terms: pannus, myelopathy, and stenosis. The pannus has likely developed due to instability between the joints, which has deformed the spinal cord and is leading to symptoms of cervical myelopathy. The definitive treatment is C1-2 fusion. I used the spine model to go over a C1-2 fusion in detail and compared the surgery to the lumbar fusion that she had done previously using the lumbar spine model. She would like to discuss with her and family. She asked me to discuss the situation with Dr. Esqueda and get his opinion. I offered to refer her to another surgeon in the department and told her that she could go to an outside hospital or center for another opinion. She may have ongoing pain from her bilateral hips that could be treated. Therefore, we are referring her to the Spine Center. Additionally, we would like a DXA to evaluate her bone health. She was diagnosed with osteopenia several years ago and has not had subsequent bone imaging. I spent 30 minutes in consultation with the patient, >50% of this time was spent in counseling and coordination of care. Gladys Zamarripa has a copy of my card and contact information. Questions were answered to the best of my ability, and the patient/family demonstrated agreement with the plan and knows that they are welcome to follow up with me. Realistic expectations were provided. There were no barriers to our conversation. Arianna Cobb Capp, MD CLINICAL COORDINATOR documented in this encounter Plan of Treatment Upcoming Encounters Date Type Department Care Team (Latest Contact Info) Description 05/29/2024 12:15 PM RN CLINICAL COORDINATOR Clinical Communication Virtual Review in [address] [phone] 05/31/2024 11:00 AM RN CLINICAL COORDINATOR Appointment Department of Laboratory Medicine and Pathology, [facility], in [address] [phone] Patricia Parker, DIE TRIMMER, C.N.P., D.N.P. [address] [place] [phone] 05/31/2024 2:00 PM RN CLINICAL COORDINATOR Comprehensive Visit Preoperative Evaluation Center in [address] [phone] Arianna Jeffries M.D. [address] [place] [phone] 05/31/2024 2:45 PM RN CLINICAL COORDINATOR Comprehensive Visit Preoperative Evaluation Center in [address] [place] [address] Chris Moreno, JOHNSON, C.N.P., M.S. [address] [place] [phone] 06/03/2024 8:15 AM RN CLINICAL COORDINATOR Hospital Encounter Post Anesthesia Care Unit in [place], [place] [address] [place] [phone] Tahir Moore M.D. [address] [place] [phone] 06/03/2024 8:15 AM RN CLINICAL COORDINATOR - 06/03/2024 2:12 PM RN CLINICAL COORDINATOR Surgery [facility] [address] [place] [phone] Tahir Moore M.D. [address] [place] [phone] C1-2 fusion 07/02/2024 11:00 AM RN CLINICAL COORDINATOR Procedure visit Division of Pain Medicine in [place], [place] [address] [place] [phone] Adam Barlow M.D. [address] [place] [phone] Scheduled Procedures Name Priority Associated Diagnoses Date/Ti me 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 06/03/2024 8:15 AM RN CLINICAL COORDINATOR Scheduled Referrals Name Type Priority Associated Diagnoses Orde r Schedule Spine Center - General consult (clinic) Outpatient Referral Routine Pain Hip Right Expected: 04/08/2024, Expires: 07/09/2025 documented as of this encounter Visit Diagnoses Diagnosis Pain Hip Right- Primary Osteoarthritis Osteopenia Stenosis Spinal documented in this encounter Additional Health Concerns Assessment Noted Time PHQ-9 Depression Total Score: 5 01/04/20 24 3:57 AM CDT documented as of this encounter Care Teams Cobbler Mckay Relationship Specialty Start Date End Date Elsewhere, Pcp PCP - General Internal Medicine 05/10/22 documented as of this encounter
--- OUTSIDE RECORDS SUMMARY | 2024-05-21 14:02 | XMS_ITS | Encounter Summary ---
Author Organization [facility] Address [address] [place] [address] Care Team Providers Care Ambulette Driver Name Role Phone Elsewhere, Pcp Primary Care Provider Unavailabl e Encounter Details Date Type Department Care Team (Late st Contact Info) Description 01/09/2024 Ancillary Procedure Department of Cardiovascular Diseases Social History Tobacco Use Types Packs/Day Years Used Date Smoking Tobacco: Former Cigarettes 0 10/03/1966 - 03/05/1974 Smokeless Tobacco: Never Alcohol Use Standard Drinks/Week Comments Yes 10 (1 standard drink = 0.6 oz pu re alcohol) [facility] Utilities Answer Date Recorded In the past 12 months has [facility] [employer], gas, oil, or water [employer] threatened to shut off services in your [...] How often do you attend chur or jew services? More than 4 times per year 08/15/2022 Do you belong to any clubs o r organizations such as pentecostalism groups, unions, fraternal or athletic groups, or [...] Answer Date Recorded PHQ-2 Score 2 01/04/2024 [facility] of Occupat ional Health - [...] living situation today? I have a [facility] place to live 12/01/2023 Education Answer Date Recorded What is the highest level of school you have completed or the highest degree you have received? Bachelor's degree (e.g., BA, AB, BS) 08/15/2022 Comments No Sex and Gender Information Value Date Recorded Sex Assigned at Female 05/11/2022 7:48 AM MAINTENANCE SHOP TECHNICIAN Legal Sex Female 9:30 PM MAINTENANCE SHOP TECHNICIAN Gender Identity Female 05/11/2022 7:48 AM MAINTENANCE SHOP TECHNICIAN Sexual Orientation Straight 05/11/2022 7: 48 AM MAINTENANCE SHOP TECHNICIAN documented as of this encounter Plan of Treatment Upcoming Encounters Date Type Department Care Team (Latest Contact Info) Description 05/29/2024 12:15 PM MAINTENANCE SHOP TECHNICIAN Clinical Communication Virtual Review in [place], [place] [address] [place] [address] 05/31/2024 11:00 AM MAINTENANCE SHOP TECHNICIAN Appointment Department of Laboratory Medicine and Pathology, [facility], in [place], [place] [address] [place] [phone] Patricia Parker APRN, C.N.P., D.N.P. [address] [place] [phone] 05/31/2024 2:00 PM MAINTENANCE SHOP TECHNICIAN Comprehensive Visit Preoperative Evaluation Center in [place], [place] [address] [place] [phone] Arianna Jeffries M.D. [address] [place] [phone] 05/31/2024 2:45 PM MAINTENANCE SHOP TECHNICIAN Comprehensive Visit Preoperative Evaluation Center in [place], [place] [address] [place] [phone] Chris Moreno, JOHNSON, C.N.P., M.S. [address] [place] [phone] 06/03/2024 8:15 AM MAINTENANCE SHOP TECHNICIAN Hospital Encounter Post Anesthesia Care Unit in [place] [phone] [place] [address] [phone] Tahir Moore M.D. [address] [place] [phone] 06/03/2024 8:15 AM MAINTENANCE SHOP TECHNICIAN - 06/03/2024 2:12 PM MAINTENANCE SHOP TECHNICIAN Surgery [facility] [address] [place] [phone] Tahir Moore M.D. [address] [place] [phone] C1-2 fusion 07/02/2024 11:00 AM MAINTENANCE SHOP TECHNICIAN Procedure visit Division of Pain Medicine in [place], [place] [address] [place] [phone] Adam Barlow M.D. [address] [place] [phone] Scheduled Procedures Name Priority Associated Diagnoses Date/Ti me 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 06/03/2024 8:15 AM MAINTENANCE SHOP TECHNICIAN documented as of this encounter Procedures Procedure Name Priority Date/Time Associated Diagnosis Comments CARDIOVASCULAR SURGERY IMAGE EXAM Routine 01/09/2024 12:00 AM CDT documented in this encounter Results * Groin-Cardiovascular Surgery Image Exam (01/09/2024 12:00 AM CDT) Narrative [facility] - 01/09/2024 5:02 PM CDT This order has been created and auto-finalized to support the import of images acquired without order. The clinical documentation to support these images can be found on the encounter that produced images. us Provider Not In System IMG NON RAD IMAGING PROCE DURES Final Result [facility] NA documented in this encounter Visit Diagnoses Not on filedocumented in this encounter Additional Health Concerns Assessment Noted Time PHQ-9 Depression Total Score: 5 01/04/20 24 3:57 AM CDT documented as of this encounter Care Teams Ambulette Driver Relationship Specialty Start Date End Date Elsewhere, Pcp PCP - General Internal Medicine 05/10/22 documented as of this encounter
--- OUTSIDE RECORDS SUMMARY | 2024-05-21 14:02 | XMS_ITS | Encounter Summary ---
Author Organization [facility] Address [address] [place] [address] Care Team Providers Care Career Professional Name Role Phone Elsewhere, Pcp Primary Care Provider Unavailabl e Reason for Visit * Reason Onset Date Comments Pre-visit Intake 04/05/2024 Encounter Details Date Type Department Care Team (Latest Contact Info) Description 04/05/2024 3:15 PM BRAND COMMUNICATIONS MANAGER Clinical Communication Virtual Review in [place], [place] [address] [place] [address] Pre-visit Intake Social History Tobacco Use Types Packs/Day Years Used Date Smoking Tobacco: Former Cigarettes 0 10/03/1966 - 03/05/1974 Passive Smoke Exposure: Never Smokeless Tobacco: Never Tobacco Cessation:Counseling Given: Not Answered Alcohol Use Standard Drinks/Week Comments Yes 10 (1 standard drink = 0.6 oz pu re alcohol) [facility] Utilities Answer Date Recorded In the [...] How often do you attend chur or worship services? More than 4 times per year [...] Answer Date Recorded PHQ-2 Score 2 01/04/2024 [facility] of Occupat ional Health - Occupational Stress [...] your living situation today? I have a [facility] place to live 12/01/2023 Education Answer Date Recorded What is the highest level of school you have completed or the highest degree you have received? Bachelor's degree (e.g., BA, AB, BS) 08/15/2022 Comments No Sex and Gender Information Value Date Recorded Sex Assigned at Female 05/11/2022 7:48 AM BRAND COMMUNICATIONS MANAGER Legal Sex Female 9:30 PM BRAND COMMUNICATIONS MANAGER Gender Identity Female 05/11/2022 7:48 AM BRAND COMMUNICATIONS MANAGER Sexual Orientation Straight 05/11/2022 7: 48 AM BRAND COMMUNICATIONS MANAGER documented as of this encounter Plan of Treatment Upcoming Encounters Date Type Department Care Team (Latest Contact Info) Description 05/29/2024 12:15 PM BRAND COMMUNICATIONS MANAGER Clinical Communication Virtual Review in [place] [address] [place] [phone] 05/31/2024 11:00 AM BRAND COMMUNICATIONS MANAGER Appointment Department of Laboratory Medicine and Pathology, [facility], in [place], [place] [address] [place] [phone] Patricia Parker APRN, C.N.P., D.N.P. [address] [place] [phone] 05/31/2024 2:00 PM BRAND COMMUNICATIONS MANAGER Comprehensive Visit Preoperative Evaluation Center in [place], [place] [address] [place] [phone] Arianna Jeffries M.D. [address] [place] [phone] 05/31/2024 2:45 PM BRAND COMMUNICATIONS MANAGER Comprehensive Visit Preoperative Evaluation Center in [place], [place] [address] [place] [phone] Chris Moreno APRN, C.N.P., M.S. [address] [place] [phone] 06/03/2024 8:15 AM BRAND COMMUNICATIONS MANAGER Hospital Encounter Post Anesthesia Care Unit in [place] [phone] [place] [phone] Tahir Moore M.D. [address] [place] [phone] 06/03/2024 8:15 AM BRAND COMMUNICATIONS MANAGER - 06/03/2024 2:12 PM BRAND COMMUNICATIONS MANAGER Surgery [facility] [address] [place] [phone] Tahir Moore M.D. [address] [place] [phone] C1-2 fusion 07/02/2024 11:00 AM BRAND COMMUNICATIONS MANAGER Procedure visit Division of Pain Medicine in [place], [place] [address] [place] [phone] Adam Barlow M.D. [address] [place] [phone] Scheduled Procedures Name Priority Associated Diagnoses Date/Ti me 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 06/03/2024 8:15 AM BRAND COMMUNICATIONS MANAGER documented as of this encounter Visit Diagnoses Not on filedocumented in this encounter Additional Health Concerns Assessment Noted Time PHQ-9 Depression Total Score: 5 01/04/20 24 3:57 AM CDT documented as of this encounter Care Teams Career Professional Relationship Specialty Start Date End Date Elsewhere, Pcp PCP - General Internal Medicine 05/10/22 documented as of this encounter
--- OUTSIDE RECORDS SUMMARY | 2024-05-21 14:02 | XMS_ITS | Encounter Summary ---
Author Organization [facility] Address [address] [place] [address] Care Team Providers Care Mohs Surgeon Name Role Phone Elsewhere, Pcp Primary Care Provider Unavailabl e Reason for Referral * Outpatient (Routine) - Authorized Specialty Diagnoses / Procedures Referred By Contac t Referred To Contact Diagnoses Pain Hip Right Fusion Lumbar Spine Status Post Procedures PM Nerve Block injection Rancho Larson P.A.-C., M.S. [address] [place] [address] Phone: tel: fax: [facility] Referral ID Status Reason Start Date Expiration Date V isits Requested Visits Authorized [id number] Authorized 04/24/2024 04/24/2025 1 1 INE STAKER Reason for Visit * Outpatient (Routine) - Closed Specialty Diagnoses / Procedures Referred By Contac t Referred To Contact Spine Diagnoses Pain Hip Right Capp, Arianna Quintanilla M.D. [address] [place] [address] Phone: tel: fax: [facility] Referral ID Status Reason Start Date Expiration Date Visits Re quested Visits Authorized [id number] Closed 04/08/2024 10/08/2025 1 1 Encounter Details Date Type Department Care Team (Late st Contact Info) Description 04/24/2024 8:00 AM MACHINE STAKER Office Visit Department of Spine in [place], [place] [address] [place] [address] Rancho Larson P.A.-C., M.S. [address] [place] [phone] Fusion Lumbar Spine Status Post (Primary Dx); Pain Hip Right Social History Tobacco Use Types Packs/Day Years Used Date Smoking Tobacco: Former Cigarettes 0 10/03/1966 - 03/05/1974 Passive Smoke Exposure: Never Smokeless Tobacco: Never Alcohol Use Standard Drinks/Week Comments Yes 10 (1 standard drink = 0.6 oz pu re alcohol) [facility] Utilities Answer Date Recorded In the past 12 months has [facility] [employer], gas, oil, or water [employer] threatened to shut off services in your [...] week 08/15/2022 How often do you attend [facility] or shinto services? More than 4 times per year [...] Answer Date Recorded PHQ-2 Score 2 01/04/2024 [facility] - Occupational Stress Questionnaire Answer Date [...] your living situation today? I have a [facility] place to live 12/01/2023 Education Answer Date Recorded What is the highest level of school you have completed or the highest degree you have received? Bachelor's degree (e.g., BA, AB, BS) 08/15/2022 Comments No Sex and Gender Information Value Date Recorded Sex Assigned at Female 05/11/2022 7:48 AM MACHINE STAKER Legal Sex Female 9:30 PM MACHINE STAKER Gender Identity Female 05/11/2022 7:48 AM MACHINE STAKER Sexual Orientation Straight 05/11/2022 7: 48 AM MACHINE STAKER documented as of this encounter Last Filed Vital Signs Vital Sign Reading Time Taken Comments Blood Pressure 117/75 04/24/2024 8:02 AM MACHINE STAKER Pulse 88 04/24/2024 8:02 AM MACHINE STAKER Temperature - - Respiratory Rate - - Oxygen Saturation - - Inhaled Oxygen Concentration - - Weight - - Height - - Body Mass Index - - documented in this encounter Consult Notes * Rancho Larson P.A.-C., M.S. - 04/24/2024 8:00 AM CST SUBJECTIVE REFERRING PROVIDER Arianna Jeffries M.D. [address] [place] [phone] CHIEF COMPLAINT / REASON FOR VISIT: Back and right hip pain. HISTORY OF PRESENT ILLNESS: Gladys Zamarripa is a 74 y.o. female with a history of gastric ulcer, anxiety, atrial fibrillation on Xarelto, depression, GERD, hypertension and hyperlipidemia. Her surgical history is significant for a L3-S1 posterior lumbar instrumented fusion and L3-4 and L4-5 transforaminal lumbar interbody fusion with Dr. Hahn and Dr. Zheng in August 2022. [facility] to address back and right hip pain. She was originally evaluated in the [facility] by Dr. Li on 05/11/2022 for shooting bilateral leg pain more severe than low back pain. Onset of pain was October of 2019. Over time the pain has waxed and waned. Since August of this year she has been experiencing intermittent right external hip pain. This is similar to the pain experienced before surgery. The pain is localized to the right trochanteric bursa region and extends to the gluteus musculature and sacral region. She does not endorse any significant back pain or radicular features. The external right hip region is burning or sharp in character. This is worse with weight bearing, walking or stretching her legs. Pain is better with sitting or sleeping. Current Pain Medications: Gabapentin 300 mg. The Nemesio was following a hernia surgery and she does not routinely take this. She has not done any topicals. Prior interventional procedures: She has completed guided and unguided trochanteric bursa injections and myofascial trigger point injections without any benefit. Diagnostic studies: A lumbar spine MRI was completed on 04/08/2024. The impression mainly describes Advanced spinal canal narrowing at L3-L4 has progressed. 3. Interval postsurgical changes at L4-S2 with improved spinalcanal narrowing at these levels. 4. Moderate-advanced bilateral C4-C5 and C5-C6 neural foraminal carlos rowing. Other prior treatments: Physical Therapy: most recent session completed last week. On 01/09/2024, she completed a right groin exploration and excision of a seroma capsule per Dr. Aguayo. The patient denies any recent fever, chills, night sweats, recent antibiotic use, or any other symptoms of ongoing infections. The patient has not noticed any new focal weakness to the upper or lowerextremities. Reports no changes in bladder or bowel function. There are no other worrisome neurological red flag features present today. The patient denies any allergies to local anesthetic, corticosteroid or contrast dye. She is using Xarelto. Appropriate transportation has been arranged. Pain score today: 0/10. OBJECTIVE History was reviewed including allergies, current medications, review of systems, family history, medical and surgical history, social history, and problem list. PHYSICAL EXAM General: Pleasant, 74 y.o. female, in no acute distress. Skin: Skin is dry and intact across the lumbar spine region with no rashes, lesions, or erythema Eyes: Pupils are 3-4 mm bilateral Lungs: Nonlabored respiration Musculoskeletal: Palpation: Mild pain with palpation in the right buttock region and right trochanteric bursa. Range of motion: Intact lumbar spine range of motion is intact Provocative maneuvers: left lateral bending and left lumbar facet loading maneuver causes right buttock pain. No pain with SI compression, FABERs, internal/external rotation of the bilateral hip, Stinchfield bilaterally. Gait: Normal Neuro: Reflexes: Reduced and symmetric to the knees and ankles. Strength: Strength is normal symmetric in lower extremity muscle groups Mental: Oriented to person, place, and time. Appropriate mood and affect. Recent and remote memory are intact. ASSESSMENT / PLAN #1 Right Hip Pain #2 Right Buttock Pain #3 Neuropathic Pain #4 Lumbar Spondylosis Without Myelopathy Gladys Zamarripa is a 74 y.o. female with a history of gastric ulcer, anxiety, atrial fibrillation on Xarelto, depression, GERD, hypertension and hyperlipidemia. Her surgical history is significant for a L3-S1 posterior lumbar instrumented fusion and L3-4 and L4-5 transforaminal lumbar interbody fusion with Dr. Hahn and Dr. Zheng in August 2022. She is [facility] to [facility] to address back and right hip pain. She was originally evaluated in the [facility] by Dr. Li on 05/11/2022 for shooting bilateral leg pain more severe than low back pain. MEDICAL DECISION MAKING 1. Conservative: She will consider placing topical medications such as diclofenac gel or menthol over the right trochanteric bursa and gluteal region. Heat can be applied as well. 2. Medications: In the future, she could optimize gabapentin to a therapeutic dose. 3. Imaging: Nothing to add at this time. 4. Injections/interventions: Given that myofascial targets have been ruled out and that she needs to maintain anticoagulation, we will start with an ultrasound-guided right medial cluneal nerve blockfor diagnostic and hopefully therapeutic purposes. If there is no benefit with this, then we can consider a fluoroscopically-guided right L4 transforaminal epidural once she is able to come off the anticoagulation. Aspirin would be fine. 5. Advanced interventional: No role for advanced neuromodulation at this time. 6. Referrals: None. All questions answered to the best of my abilities. FOLLOW-UP No formal follow up at this time. The plan was discussed with Dr. Arriaga. Total time: 60 minutes with >50% of the time spent in counseling and coordination. PATIENT EDUCATION Ready to learn, no apparent learning barriers were identified; learning preferences included listening. Explained diagnosis and treatment plan; patient expressed understanding of the content. INE STAKER documented in this encounter Plan of Treatment Upcoming Encounters Date Type Department Care Team (Latest Contact Info) Description 05/29/2024 12:15 PM MACHINE STAKER Clinical Communication Virtual Review in [place], [place] [address] [place] [address] 05/31/2024 11:00 AM MACHINE STAKER Appointment Department of Laboratory Medicine and Pathology, [facility], in [address] [phone] Patricia Parker APRN, C.N.P., D.N.P. [address] [place] [phone] 05/31/2024 2:00 PM MACHINE STAKER Comprehensive Visit Preoperative Evaluation Center in [place], [place] [address] [place] [phone] Arianna Jeffries M.D. [address] [place] [phone] 05/31/2024 2:45 PM MACHINE STAKER Comprehensive Visit Preoperative Evaluation Center in [place], [place] [address] [place] [phone] Chris Moreno APRN, C.N.P., M.S. [address] [place] [phone] 06/03/2024 8:15 AM MACHINE STAKER Hospital Encounter Post Anesthesia Care Unit in [place], [place] [address] [place] [phone] Tahir Moore M.D. [address] [place] [phone] 06/03/2024 8:15 AM MACHINE STAKER - 06/03/2024 2:12 PM MACHINE STAKER Surgery [facility] MAIN OR [address] [place] [phone] Tahir Moore M.D. [address] [place] [phone] C1-2 fusion 07/02/2024 11:00 AM MACHINE STAKER Procedure visit Division of Pain Medicine in [place], [place] [address] [place] [phone] Adam Barlow M.D. [address] [place] [phone] Scheduled Procedures Name Priority Associated Diagnoses Date/Ti me 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 06/03/2024 8:15 AM MACHINE STAKER documented as of this encounter Visit Diagnoses Diagnosis Fusion Lumbar Spine Status Post- Primary Pain Hip Right Stenosis Spinal documented in this encounter Additional Health Concerns Assessment Noted Time PHQ-9 Depression Total Score: 5 01/04/20 24 3:57 AM CDT documented as of this encounter Care Teams Mohs Surgeon Relationship Specialty Start Date End Date Elsewhere, Pcp PCP - General Internal Medicine 05/10/22 documented as of this encounter
--- OUTSIDE RECORDS SUMMARY | 2024-05-21 14:02 | XMS_ITS | Encounter Summary ---
Author Organization [facility] Address [address] [place] [address] Care Team Providers Care Psych Rn Name Role Phone Elsewhere, Pcp Primary Care Provider Unavailabl e Reason for Referral * Outpatient (Routine) - Closed Specialty Diagnoses / Procedures Referred By Contac t Referred To Contact Diagnoses Abnormal Gait Non Orthopedic Procedures DX Cervical Spine 2-3 Views Nelson Esqueda M.D. [address] [place] [address] Phone: tel: fax: [facility] Referral ID Status Reason Start Date Expiration Date Visits Re quested Visits Authorized [id number] Closed 04/07/2023 04/06/2024 1 1 DENTIAL INSTALLER Reason for Visit * Outpatient (Routine) - Closed Specialty Diagnoses / Procedures Referred By Contac t Referred To Contact Diagnoses Abnormal Gait Non Orthopedic Procedures DX Cervical Spine 2-3 Views Nelson Esqueda M.D. [address] [place] [address] Phone: tel: fax: [facility] Referral ID Status Reason Start Date Expiration Date Visits Re quested Visits Authorized [id number] Closed 04/07/2023 04/06/2024 1 1 Encounter Details Date Type Department Care Team (Latest Contact Info) Description 04/08/2024 7:56 AM RESIDENTIAL INSTALLER - 04/08/2024 8:12 AM RESIDENTIAL INSTALLER Hospital Encounter Department of Radiology, [facility], in [place], [place] [address] [place] [address] Nelson Esqueda M.D. [address] [place] [phone] Abnormal Gait Non Orthopedic Discharge Disposition: Home or Self Care Social History Tobacco Use Types Packs/Day Years Used Date Smoking Tobacco: Former Cigarettes 0 10/03/1966 - 03/05/1974 Passive Smoke Exposure: Never Smokeless Tobacco: Never Alcohol Use Standard Drinks/Week Comments Yes 10 (1 standard drink = 0.6 oz pu re alcohol) [facility] Utilities Answer Date Recorded In the past 12 months has [facility] [employer], gas, oil, or water [employer] threatened to shut off services in your [...] week 08/15/2022 How often do you attend [facility] or pentecostal services? More than 4 times per year 08/15/2022 Do you belong to any clubs o r organizations such as restorationist groups, unions, fraternal or athletic groups, or [...] Answer Date Recorded PHQ-2 Score 2 01/04/2024 [facility] - Occupational Stress [...] your living situation today? I have a [facility] place to live 12/01/2023 Education Answer Date Recorded What is the highest level of school you have completed or the highest degree you have received? Bachelor's degree (e.g., BA, AB, BS) 08/15/2022 Comments No Sex and Gender Information Value Date Recorded Sex Assigned at Female 05/11/2022 7:48 AM RESIDENTIAL INSTALLER Legal Sex Female 9:30 PM RESIDENTIAL INSTALLER Gender Identity Female 05/11/2022 7:48 AM RESIDENTIAL INSTALLER Sexual Orientation Straight 05/11/2022 7: 48 AM RESIDENTIAL INSTALLER documented as of this encounter Medications at [...] (Latest Contact Info) Description 05/29/2024 12:15 PM RESIDENTIAL INSTALLER Clinical Communication Virtual Review in [place], [place] [address] [place] [phone] 05/31/2024 11:00 AM RESIDENTIAL INSTALLER Appointment Department of Laboratory Medicine and Pathology, [facility], in [place], [place] [address] [place] [phone] Patricia Parker APRN, C.N.P., D.N.P. [address] [place] [phone] 05/31/2024 2:00 PM RESIDENTIAL INSTALLER Comprehensive Visit Preoperative Evaluation Center in [place], [place] [address] [place] [phone] Arianna Jeffries M.D. [address] [place] [phone] 05/31/2024 2:45 PM RESIDENTIAL INSTALLER Comprehensive Visit Preoperative Evaluation Center in [place], [place] [address] [place] [phone] Chris Moerno, CONSUMER EDUCATOR, C.N.P., M.S. [address] [place] [phone] 06/03/2024 8:15 AM RESIDENTIAL INSTALLER Hospital Encounter Post Anesthesia Care Unit in [place], [place] [address] [place] [phone] Tahir Moore M.D. [address] [place] [phone] 06/03/2024 8:15 AM RESIDENTIAL INSTALLER - 06/03/2024 2:12 PM RESIDENTIAL INSTALLER Surgery [facility] MAIN OR [address] [place] [phone] Tahir Moore M.D. [address] [place] [phone] C1-2 fusion 07/02/2024 11:00 AM RESIDENTIAL INSTALLER Procedure visit Division of Pain Medicine in [place], [place] [address] [place] [phone] Adam Barlow M.D. [address] [place] [phone] Scheduled Procedures Name Priority Associated Diagnoses Date/Ti me DECOMPRESSION POSTERIOR CERVICAL WITH FUSION Stenosis Spinal 06/03/2024 8:15 AM RESIDENTIAL INSTALLER documented as of this encounter Procedures Procedure Name Priority Date/Time Associated Diagnosis Comments DX CERVICAL SPINE 2-3 VIEWS RAD - Routine (most inpatients and all outpatients) 04/08/2024 8:15 AM RESIDENTIAL INSTALLER Abnormal Gait Non Orthopedic documented in this encounter Results * DX Cervical Spine 2-3 Views (04/08/2024 8:15 AM RESIDENTIAL INSTALLER) Anatomical Region Laterality Modality Cervical Spine, Musculoskele ambar RST LOS, Neuroradiology ARZ LOS, Muskuloskeletal FLA LOS N/A Digita l Radiography Impressions 04/08/2024 8:47 AM RESIDENTIAL INSTALLER Narrowing of the C4 through C7 interspaces. Mild anterolisthesis of C2, C3 and C7. Moderate-advanced facet and uncovertebral arthritis. Carotid calcifications. Little change since 09/22/2020. Narrative 04/08/2024 8:47 AM RESIDENTIAL INSTALLER EXAM: DX CERVICAL SPINE 2-3 VIEWS Procedure Note Kriss Raines M.D. - 04/08/2024 EXAM: DX CERVICAL SPINE 2-3 VIEWS IMPRESSION: Narrowing of the C4 through C7 interspaces. Mild anterolisthesis of C2, C3and C7. Moderate-advanced facet and uncovertebral arthritis. Carotidcalcifications. Little change since 09/22/2020. us Nelson Esqueda M.D. [facility] Final Result documented in this encounter Visit Diagnoses Diagnosis Abnormal Gait Non Orthopedic Stenosis Spinal documented in this encounter Additional Health Concerns Assessment Noted Time PHQ-9 Depression Total Score: 5 01/04/20 24 3:57 AM CDT documented as of this encounter Care Teams Psych Rn Relationship Specialty Start Date End Date Elsewhere, Pcp PCP - General Internal Medicine 05/10/22 documented as of this encounter
--- OUTSIDE RECORDS SUMMARY | 2024-05-21 14:02 | XMS_ITS | Encounter Summary ---
Author Organization [facility] Address [address] [place] [address] Care Team Providers Care Press Set Up Name Role Phone Elsewhere, Pcp Primary Care Provider Unavailabl e Reason for Referral * Outpatient (Routine) - Closed Specialty Diagnoses / Procedures Referred By Contac t Referred To Contact Diagnoses Fusion Lumbar Spine Status Post Procedures DX Lumbar Spine 2-3 Views Nelson Esqueda M.D. [address] [place] [phone] Phone: tel: fax: [facility] Referral ID Status Reason Start Date Expiration Date Visits Re quested Visits Authorized [id number] Closed 04/07/2023 04/06/2024 1 1 C SOUND LIGHT TECHNICIAN Reason for Visit * Outpatient (Routine) - Closed Specialty Diagnoses / Procedures Referred By Contac t Referred To Contact Diagnoses Fusion Lumbar Spine Status Post Procedures DX Lumbar Spine 2-3 Views Nelson Esqueda M.D. [address] [place] [address] Phone: tel: fax: [facility] Referral ID Status Reason Start Date Expiration Date Visits Re quested Visits Authorized [id number] Closed 04/07/2023 04/06/2024 1 1 Encounter Details Date Type Department Care Team (Latest Contact Info) Description 04/08/2024 7:45 AM MUSIC SOUND LIGHT TECHNICIAN - 04/08/2024 7:55 AM MUSIC SOUND LIGHT TECHNICIAN Hospital Encounter Department of Radiology, [facility], in [place], [place] [address] [place] [address] Nelson Esqueda M.D. [address] [place] [phone] Fusion Lumbar Spine Status Post Discharge Disposition: Home or Self Care Social History Tobacco Use Types Packs/Day Years Used Date Smoking Tobacco: Former Cigarettes 0 10/03/1966 - 03/05/1974 Passive Smoke Exposure: Never Smokeless Tobacco: Never Alcohol Use Standard Drinks/Week Comments Yes 10 (1 standard drink = 0.6 oz pu re alcohol) [facility] Utilities Answer Date Recorded In the past 12 months has [facility] [employer], gas, oil, or water [employer] threatened to shut off services in your [...] week 08/15/2022 How often do you attend [facility] or [employer] services? More than 4 times per year 08/15/2022 Do you belong to any clubs o r organizations such as advent groups, unions, fraternal or athletic groups, or [...] Answer Date Recorded PHQ-2 Score 2 01/04/2024 [facility] - Occupational Stress Questionnaire Answer Date [...] your living situation today? I have a [facility] place to live 12/01/2023 Education Answer Date Recorded What is the highest level of school you have completed or the highest degree you have received? Bachelor's degree (e.g., BA, AB, BS) 08/15/2022 Comments No Sex and Gender Information Value Date Recorded Sex Assigned at Female 05/11/2022 7:48 AM MUSIC SOUND LIGHT TECHNICIAN Legal Sex Female 9:30 PM MUSIC SOUND LIGHT TECHNICIAN Gender Identity Female 05/11/2022 7:48 AM MUSIC SOUND LIGHT TECHNICIAN Sexual Orientation Straight 05/11/2022 7: 48 AM MUSIC SOUND LIGHT TECHNICIAN documented as of this encounter Medications at [...] (Latest Contact Info) Description 05/29/2024 12:15 PM MUSIC SOUND LIGHT TECHNICIAN Clinical Communication Virtual Review in [place], [place] [address] [place] [phone] 05/31/2024 11:00 AM MUSIC SOUND LIGHT TECHNICIAN Appointment Department of Laboratory Medicine and Pathology, [facility], in [place], [place] [address] [place] [phone] Patricia Parker APRN, C.N.P., D.N.P. [address] [place] [phone] 05/31/2024 2:00 PM MUSIC SOUND LIGHT TECHNICIAN Comprehensive Visit Preoperative Evaluation Center in [address] [phone] Arianna Jeffries M.D. [address] [place] [phone] 05/31/2024 2:45 PM MUSIC SOUND LIGHT TECHNICIAN Comprehensive Visit Preoperative Evaluation Center in [place], [place] [address] [place] [phone] Chris Moreno, [employer], C.N.P., M.S. [address] [place] [phone] 06/03/2024 8:15 AM MUSIC SOUND LIGHT TECHNICIAN Hospital Encounter Post Anesthesia Care Unit in [place], [place] [address] [place] [phone] Tahir Moore M.D. [address] [place] [phone] 06/03/2024 8:15 AM MUSIC SOUND LIGHT TECHNICIAN - 06/03/2024 2:12 PM MUSIC SOUND LIGHT TECHNICIAN Surgery [facility] [address] [place] [phone] Tahir Moore M.D. [address] [place] [address] [phone] C1-2 fusion 07/02/2024 11:00 AM MUSIC SOUND LIGHT TECHNICIAN Procedure visit Division of Pain Medicine in [place], [place] [address] [place] [phone] Adam Barlow M.D. 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 06/03/2024 8:15 AM MUSIC SOUND LIGHT TECHNICIAN documented as of this encounter Procedures Procedure Name Priority Date/Time Associated Diagnosis Comments DX LUMBAR SPINE 2-3 VIEWS RAD - Routine (most inpatients and all outpatients) 04/08/2024 8:15 AM MUSIC SOUND LIGHT TECHNICIAN Fusion Lumbar Spine Status Post documented in this encounter Results * DX Lumbar Spine 2-3 Views (04/08/2024 8:15 AM MUSIC SOUND LIGHT TECHNICIAN) Anatomical Region Laterality Modality Lumbar Spine, Musculoskeleta l RST LOS, Neuroradiology ARZ LOS, Muskuloskeletal FLA LOS N/A Digital Radiography Impressions 04/08/2024 8:52 AM MUSIC SOUND LIGHT TECHNICIAN Assuming a tiny riblet at T12, there are five lumbar vertebral bodies. Posterior shannan and pedicle screw fixation L3-S1 with bone [...] Pelvic surgical clips. Narrative 04/08/2024 8:52 AM MUSIC SOUND LIGHT TECHNICIAN EXAM: DX LUMBAR SPINE 2-3 VIEWS Procedure Note Kriss Raines M.D. - 04/08/2024 EXAM: DX LUMBAR SPINE 2-3 VIEWS IMPRESSION: Assuming a tiny riblet at T12, there are five lumbar vertebral bodies.Posterior shannan and pedicle screw fixation L3-S1 with bone [...] Pelvic surgical clips. us Nelson Esqueda M.D. 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
--- OUTSIDE RECORDS SUMMARY | 2024-05-21 14:02 | XMS_ITS | Encounter Summary ---
Author Organization [facility] Address [address] [place] [address] Care Team Providers Care Trimmer Tailer Name Role Phone Elsewhere, Pcp Primary Care Provider Unavailabl e Encounter Details Date Type Department Care Team (Late st Contact Info) Description 01/09/2024 7:35 AM CDT - 01/09/2024 9:46 AM CDT Surgery [facility]ST ROMB MAIN OR [address] [place] [phone] Richard Aguayo M.D. [address] [place] [phone] DEBRIDEMENT, IRRIGATION, Right groin seroma. Removal Mole Right Groin, Closure Social History Tobacco Use Types Packs/Day Years Used Date Smoking Tobacco: Former Cigarettes 0 10/03/1966 - 03/05/1974 Smokeless Tobacco: Never Tobacco Cessation:Counseling Given: Not Answered Alcohol Use Standard Drinks/Week Comments Yes 10 (1 standard drink = 0.6 oz pu re alcohol) [facility] Utilities Answer Date Recorded In the past 12 months has th e electric, gas, oil, or water [employer] threatened to shut off services in your [...] How often do you attend chur or restorationist services? More than 4 times per year 08/15/2022 Do you belong to any clubs o r organizations such as sabianism groups, unions, fraternal or athletic groups, or [...] Answer Date Recorded PHQ-2 Score 2 01/04/2024 [facility] - Occupational [...] your living situation today? I have a [facility] place to live 12/01/2023 Education Answer Date Recorded What is the highest level of school you have completed or the highest degree you have received? Bachelor's degree (e.g., BA, AB, BS) 08/15/2022 Comments No Sex and Gender Information Value Date Recorded Sex Assigned at Female 05/11/2022 7:48 AM PIANO REGULATOR INSPECTOR Legal Sex Female 9:30 PM PIANO REGULATOR INSPECTOR Gender Identity Female 05/11/2022 7:48 AM PIANO REGULATOR INSPECTOR Sexual Orientation Straight 05/11/2022 7: 48 AM PIANO REGULATOR INSPECTOR documented as of this encounter Last Filed Vital Signs Vital Sign Reading Time Taken Comments Blood Pressure 169/100 01/09/2024 6:57 AM CDT sec ond check Pulse 74 01/09/2024 6:57 AM CDT Temperature 36.5 C (97.7 F) 01/09/2024 6:57 AM CDT Respiratory Rate 18 01/09/2024 6:57 AM CDT Oxygen Saturation 100% 01/09/2024 6:57 AM CDT Inhaled Oxygen Concentration - - Weight 62 kg (136 lb 11 oz) 01/09/2024 6:18 AM C DT Height 160.5 cm (5' 3.19) 01/09/2024 6:18 AM CD T Body Mass Index 24.07 01/09/2024 6:18 AM CDT documented in this encounter Discharge Summaries * Kary Wahl P.A.-C. - 01/09/2024 12:17 PM CDT DISCHARGE SUMMARY BRIEF OVERVIEW Discharge Provider: Richard Aguayo M.D. Primary Care Providers: Elsewhere, Pcp (General) No address on file Patient Care Team: Christine Rodriguez M.D. as External Primary Care Physician (Family Medicine) Johanna De Santiago P.A.-C. as External Primary Care Physician (Family Medicine) Admission Date: 01/09/2024 Discharge Date 01/09/2024 PRINCIPAL DIAGNOSIS Seroma Initial SECONDARY DISCHARGE DIAGNOSES Principal Problem: Seroma Initial Resolved Problems: * No resolved hospital problems. * Surgery Information This Encounter Past and Present Procedures (01/09/2023 to Today) Date Procedures Providers Loc / Dept 01/09/2024 DEBRIDEMENT, IRRIGATION, Right groin seroma. Removal Mole Right Groin, Closure Richard Aguayo M.D.Varol, Muhammed, M.D.Vaddavalli, Venkata Vineeth, M.B.BHomeroS. RST ROMB OR DISCHARGE DISPOSITION Home or Self Care [1] ACTIVE ISSUES REQUIRING FOLLOW UP Your primary care provider is your long-term healthcare provider. Please follow-up with them for any medication refills, home care assistance, or an ongoing chronic medical conditions as needed OUTPATIENT FOLLOWUP [facility] Appointments: For appointment details refer to your Patient Appointment Guide. Outside [facility] Appointments: Consults and Follow-ups to Schedule Cardiovascular Surgery office visit (clinic) Jan 16, 2024 Clinic in one week to evaluate wound healing Region: [facility] Provider Needed: MEKA Visit length: Short Visit type: General Patient location: Face to face Wrap-Up Visit: No Contact Information for Follow-ups [facility] Next Steps: Follow up Comments: Clinic in one week to evaluate wound healing Questions: Region: [facility] Provider Needed: MEKA Visit length: Short Visit type: General Patient location: Face to face Wrap-Up Visit: No Referral Status: Authorized DISCHARGE MEDICATIONS: At the time of dismissal, pain medications (examples include oxycodone, Dilaudid, Tramadol, etc.)will be prescribed to you if needed. Duration will be determined on a tnqw-ci-efym basis and will not exceed 2 weeks. Thereafter, you will need to be evaluated by your primary care provider or your surgical team (in person) if operative pain persists Refill of all medications need to be obtained from your primary care provider Current Discharge Medication List Current Discharge Medication List Current Discharge Medication List CONTINUE these medications which have NOT CHANGED Details acetaminophen (TYLENOL) 500 mg tablet Take 1,000 mg by mouth every 8 (eight) hours. allopurinoL (ZYLOPRIM) 300 mg tablet Take 150 mg by mouth daily. atorvastatin (LIPITOR) 20 mg tablet Take 20 mg by mouth daily. buPROPion XL (WELLBUTRIN XL) 150 mg 24 hr tablet Take 150 mg by mouth daily. calcium [...] Monday, Monday, Monday furosemide (LASIX) 20 mg tablet Take 2 tablets (40 mg total) by mouth 2 (two) times a day for 7 days, THEN 1 tablet (20 mg total) 2 (two) times a day for 7 days, THEN 1 tablet (20 mg total) daily for14 days. Continuation per discretion of PCP.. Qty: 56 tablet, Refills: 0 gabapentin (NEURONTIN) 300 mg capsule Take 300 mg by mouth 4 (four) times a day. lisinopriL (PRINIVIL,ZESTRIL) 5 mg tablet Take 1 tablet (5 mg total) by mouth 2 (two) times a day. Qty: 60 tablet, Refills: 0 magnesium oxide (MAG-OX) 400 mg (241.3 mg magnesium) tablet Take 1 tablet by mouth daily. omega 7-iai-jes-fish oil (fish oil) 1,200 (144-216) mg capsule Take 1 capsule by mouth daily. omeprazole (PriLOSEC) [address] capsule Take 20 mg by mouth every morning before breakfast. potassium chloride (K-TAB) 20 mEq CR tablet Take 20 mEq by mouth daily as needed (takes when takingfurosemide). aspirin 81 mg chewable tablet Chew 1 tablet (81 mg total) daily. cyanocobalamin (VITAMIN B12) 1,000 mcg/mL injection Inject 1,000 mcg intramuscularly every 30 (thirty) days. pediatric uabnwlqytckm-lzak-myhftfye (FLINTSTONES COMPLETE) chewable tablet Chew 1 tablet daily. Qty: 360 tablet, Refills: 0 rivaroxaban (XARELTO) 20 mg tablet Take 1 tablet (20 mg total) by mouth daily. Okay to start retaking 1 week after surgery Qty: 60 tablet, Refills: 1 Current Discharge Medication List STOP taking these medications mupirocin (Bactroban) 2 % ointment Comments: Reason for Stopping: DETAILS OF HOSPITAL STAY REASON FOR ADMISSION Seroma Initial HOSPITAL COURSE Ms. Zamarripa had an uncomplicated seroma evacuation, seroma capsule excision and skin mole excision from the right groin. Pain was well-controlled postoperatively and she had an uncomplicated postoperative course. IMAGING DX Chest AP or PA and Lateral 2 Views Result Date: 01/08/2024 Impression: Since 10/31/2023, there is mild increase in opacity in the right middle lobe suggestiveof an infectious/inflammatory process. Pulmonary venous hypertension. Otherwise, no significant change. Mitral annuloplasty. Postoperative changes visualized lumbar spine. ECG ECG 12 Lead Result Date: 01/08/2024 Sinus rhythm with 1st degree A-V block Low anterior forces Prolonged QT When compared with ECG of 31-Oct-2023 17:25, QT has lengthened Reviewed by KEVIN [facility] Recent Results (from the past 24 hour(s)) Type and Screen (with Reflex Antibody ID) Collection Time: 01/08/24 1:04 PM Result Value ABORh A Pos Antibody Screen Negative Type & Screen Expiration 01/11/2024 23:59 Testing Location [facility] CBC without Differential Collection Time: 01/08/24 1:05 PM Result Value Hemoglobin 10.5 (L) Hematocrit 32.8 (L) Erythrocytes 3.19 (L) MCV 102.8 (H) RBC Distrib Width 13.1 Platelet Count 219 Leukocytes 4.9 Basic Metabolic Panel Collection Time: 01/08/24 1:05 PM Result Value Potassium, S 4.3 Sodium, S 139 Chloride, S 101 Bicarbonate, S 28 Anion Gap 10 BUN (Blood Urea Nitrogen), S 12 Creatinine 0.72 Estimated GFR (eGFR) 88 Calcium, Total, S 9.6 Glucose, S 89 Prothrombin Time (PT) Collection Time: 01/08/24 1:05 PM Result Value Prothrombin Time, P 10.7 INR 1.0 PATHOLOGY No results found for this or any previous visit (from the past 720 hour(s)). CONDITION AT DISCHARGE good Time spent on coordinating discharge was less than 30 minutes. Discharge instructions were provided to the patient and caregiver(s). documented in this encounter Medications at Time [...] 2 (two) times a day with meals. cholecalciferol , vitamin D3, 25 mcg (1,000 Unit) tablet Take 25 mcg by mouth daily. cyanocobalamin (VITAMIN B12) 1,000 mcg/mL injection Inject 1,000 mcg intramuscularly every 30 (thirty) days. 07/28/2022 ferrous sulfate 325 mg (65 mg iron) tablet Take 325 mg by mouth 3 (three) times a week. Monday, Monday, Monday furosemide (LASIX) 20 mg tablet Take 2 tablets (40 mg total) by mouth 2 (two) times a day for 7 days, THEN 1 tablet (20 mg total) 2 (two) times a day for 7 days, THEN 1 tablet (20 mg total) daily for 14 days. Continuation per discretion of PCP.. 56 tablet 08/11/2023 gabapentin (NEURONTIN) 300 mg capsule Take 300 mg by mouth 4 (four) times a day. 02/28/2023 lisinopriL (PRINIVIL,ZESTR IL) 5 mg tablet Take 1 tablet (5 mg total) by mouth 2 (two) times a day. 60 tablet 08/11/2023 magnesium oxide (MAG-OX) 400 mg (241.3 mg magnesium) tablet Take 1 tablet by mouth daily. omeprazole (PriLOSEC) [address] capsule Take 20 mg by mouth every morning before breakfast. 04/25/2022 pediatric multivitamin-ir on-minerals (FLINTSTONES COMPLETE) chewable tablet Chew 1 tablet daily. 360 tablet 11/04/2023 11/04/19 25 potassium chloride (K-TAB) 20 mEq CR tablet Take 20 mEq by mouth daily. 08/31/2023 rivaroxaban (XARELTO) 20 mg tablet Take 1 tablet (20 mg total) by mouth daily. Okay to start retaking 1 week after surgery 60 tablet 1 09/07/2022 omega 8-idy-biz-fish oil (fish oil) 1,200 (144-216) mg capsule Take 1 capsule by mouth daily. 04/05/20 24 documented as of this encounter OR Notes * Op Note - Richard Aguayo M.D. - 01/09/2024 8:15 AM CDT Pre-op Diagnosis Seroma Initial Post-op Diagnosis Seroma Initial Procedure Right groin exploration. Excision of seroma capsule. Complex right groin wound closure. Excision of mole from skin of right groin. Primary Surgeon Richard Aguayo M.D. Administrative Law Judge Surgeon Lisa Mahmood M.B.BHomeroS. Specimen Seroma capsule Mole from right groin skin Anesthesia General Endotracheal Findings As expected Complications None Operative Note Narrative The patient was brought to the operating room and placed in supine position. Following induction ofgeneral endotracheal anesthesia, monitoring lines were placed and the patient was prepped and draped in routine fashion. A procedural pause was conducted to identify the correct patient, procedure, administration of preoperative antibiotic, and all other necessary items. The prior right groin incision was then reopened with an elliptical incision that included excisionof a mole that was in close proximity to the prior incision. The mole was sent to pathology. A large seroma cavity was encountered. The seroma was suctioned. The seroma cavity occupied the entire groin space all the way down to the right common femoral artery and vein. There had been no healing of the deep tissue. There was no obvious lymphatics or lymph nodes. Photographs were obtained. Fluid was sent for culture (this appeared benign and noninfectious). We excised the capsule all the way downto the femoral vessels (we left the capsule over the anterior surface of the vasculature). Hemostasis was achieved. We then closed the wound in multiple layers of interrupted 2-0 Vicryl suture followed by 4-0 Monocryl for subcuticular skin closure. Richard Aguayo M.D. * Brief Op Note - Jhoan Ribera M.D. - 01/09/2024 8:15 AM CDT Pre-op Diagnosis Seroma Initial Post-op Diagnosis Seroma Initial Seroma Evacuation Seroma Capsule excision Skin mole excision from right groin Jhoan Ribera M.D. documented in this encounter Plan of Treatment Upcoming Encounters Date Type Department Care Team (Latest Contact Info) Description 05/29/2024 12:15 PM PIANO REGULATOR INSPECTOR Clinical Communication Virtual Review in [address] [phone] 05/31/2024 11:00 AM PIANO REGULATOR INSPECTOR Appointment Department of Laboratory Medicine and Pathology, [facility], in [place], [place] [address] [place] [phone] Patricia Parker APRN, C.N.P., D.N.P. [address] [place] [phone] 05/31/2024 2:00 PM PIANO REGULATOR INSPECTOR Comprehensive Visit Preoperative Evaluation Center in [place], [place] [address] [place] [phone] Arianna Jeffries M.D. [address] [place] [phone] 05/31/2024 2:45 PM PIANO REGULATOR INSPECTOR Comprehensive Visit Preoperative Evaluation Center in [place], [place] [address] [place] [phone] Chris Moreno APRN, C.N.P., M.S. [address] [place] [phone] 06/03/2024 8:15 AM PIANO REGULATOR INSPECTOR Hospital Encounter Post Anesthesia Care Unit in [place], [place] [address] [place] [phone] Tahir Moore M.D. [address] [place] [phone] 06/03/2024 8:15 AM PIANO REGULATOR INSPECTOR - 06/03/2024 2:12 PM PIANO REGULATOR INSPECTOR Surgery RST ROMB MAIN OR [address] [place] [phone] Tahir Moore M.D. [address] [place] [phone] C1-2 fusion 07/02/2024 11:00 AM PIANO REGULATOR INSPECTOR Procedure visit Division of Pain Medicine in [place], [place] [address] [place] [phone] Adam Barlow M.D. 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 06/03/2024 8:15 AM PIANO REGULATOR INSPECTOR Scheduled Referrals Name Type Priority Associated Diagnoses Order Schedule Cardiovascular Surgery office visit (clinic) Outpatient Referral Routine Expect ed: 01/16/2024, Expires: 04/10/2025 documented as of this encounter Procedures Procedure Name Priority Date/Time Associated Diagnosis Comments ADULT OXYGEN THERAPY Routine 01/09/2024 10:03 AM CDT BACTERIAL CULTURE, AEROBIC + SUSC Routine 01/09/2024 9:20 AM CDT Seroma Initial FUNGAL SMEAR Routine 01/09/2024 9:20 AM CDT Seroma Initial GRAM STAIN Routine 01/09/2024 9:20 AM CDT Seroma Initial FUNGAL CULTURE, ROUTINE Routine 01/09/2024 9:20 AM CDT Seroma Initial BACTERIAL CULTURE, ANAEROBIC + SUSC Routine 01/09/2024 9:20 AM CDT Seroma Initial SURGICAL PATHOLOGY, [facility] LAB Routine 01/09/2024 8:43 AM CDT Seroma Initial DEBRIDEMENT AND IRRIGATION 01/09/2024 7:21 AM CDT Seroma Initial documented in this encounter Results * Bacterial Culture, Aerobic + Susceptibility (01/09/2024 9:20 AM CDT) Bacterial Culture, Aerobic + Susc No growth after 5 days of incubation. 01/14/2024 5:02 AM CDT DTL Aspirate (Groin, Right) 01/09/2024 9:20 AM CDT us Richard Aguayo M.D. LAB MICROBIOLOGY - GENERAL ORDERABLES Final Result [facility] [address] [place] [address], [facility] 200 [place] [address] * Fungal Smear (01/09/2024 9:20 AM CDT) Fungal Smear Negative. 01/09/2024 6:04 PM CDT DTL Aspirate (Groin, Right) 01/09/2024 9:20 AM CDT us Richard Aguayo M.D. LAB MICROBIOLOGY - GENERAL ORDERABLES Final Result [facility] [address] [place], [place] [phone] [place] [address] 200 [place] [address] * Gram Stain (01/09/2024 9:20 AM CDT) Gram Stain No organisms seen. White blood cells, Moderate. 01/09/2024 12:24 PM CDT DT Aspirate (Groin, Right) 01/09/2024 9:20 AM CDT us Richard Aguayo M.D. LAB MICROBIOLOGY - GENERAL ORDERABLES Final Result [facility] [address] [place] [address], [facility] 200 [place] [address] * Fungal Culture, Routine (01/09/2024 9:20 AM CDT) Fungal Culture, Routine No growth after 24 days of incubation. 02/02/2024 1:01 PM CDT DTL Aspirate (Groin, Right) 01/09/2024 9:20 AM CDT us Richard Aguayo M.D. LAB MICROBIOLOGY - GENERAL ORDERABLES Final Result [facility] [address] [place] [address] * Bacterial Culture, Anaerobic + Susceptibility (01/09/2024 9:20 AM CDT) Bacterial Culture, Anaerobic + Susc No growth after 14 days of incubation. 01/23/2024 8:39 AM CDT DTL Aspirate (Groin, Right) 01/09/2024 9:20 AM CDT us Richard Aguayo M.D. LAB MICROBIOLOGY - GENERAL [place] [address] * Surgical Pathology, Frozen Lab (01/09/2024 8:43 AM CDT) 01/16/2024 9:13 AM CDT [facility] Report electronically signed by Shannon Russ M.D. I verify that I have examined all relevant slides/material s for the specimen(s) and rendered or confirmed the diagnosis. 01/16/2024 9:13 AM CDT [facility] Gross Description A. Received fresh labeled right groin mole is a 3.2 x 1.1 cm skin ellipse excised to a depth of 1 cm. There is a 0.8 x 0.6 x 0.4 cm raised lesion located 0.2 cm from the nearest margin. Margins are submitted perpendicularly . Truer Pinion And Wheel tissue submitted for permanent sections. Grossed by Lauro Jones M.S., PA([facility]). B. Received fresh labeled right groin seroma capsule is a 5 x 3.8 x 0.9 cm portion of pink-yellow capsule. Truer Pinion And Wheel tissue submitted for permanent sections. Grossed by Isaac Bernabe PA([facility]). 01/16/2024 9:13 AM CDT [facility]MA Block Summary A Right groin mole A1 Tips A2 Lesion B Right groin seroma capsule B1 Capsule 1 B2 Capsule 2 B3 Capsule 3 B4 Possible lymph node 1(B1) 01/16/2024 9:13 AM CDT [facility]MA Interpretation FINAL DIAGNOSIS A. Skin, right groin mole, excision: Dermal nevus. The margins appear uninvolved. In the subjacent deeper soft tissue fibrosis is present. B. Soft tissue, right groin seroma capsule, excision: Fibrous tissue with chronic inflammation and fat necrosis, compatible with the clinical impression of seroma capsule. Reactive lymph node tissue is also focally present. PASD, GMS, Gram and Sigifredo stains performed at [facility] on sections from block B4 are negative for microorganisms. Digital imaging was used in the diagnostic assessment of this case. Case seen in consultation with Dr. Marie Sultana 01/16/2024 9:13 AM CDT ST[facility] Skin (Groin, Right) 01/09/2024 8:43 AM CDT Tissue (Groin, Right) 01/09/2024 8:49 AM CDT us Richard Aguayo M.D. LAB SURG PATH ORDERABLES Fi nal Result [facility] [address] [place] [address], [facility] [address] [facility] [address] [place] [address] documented in this encounter Visit Diagnoses Diagnosis Seroma Initial- Primary Seroma Initial Stenosis Spinal documented in this encounter Admitting Diagnoses Diagnosis Seroma Initial documented in this encounter Administered Medications Inactive Administered Medications - up to 3 most recent administrations Medication Order MAR Action Action Date Dose Rate Site acetaminophen injection 1,000 mg 1,000 mg, intravenous, at 400 mL/hr, Administer over 15 Minutes, Once as needed, other, If patient has not received in previous 6 hours, Starting on Mon01/09/24 at 1003, For 1 dose, PACU (only), Oral unless RASS less than -1 or nausea/vomiting. Do not use if given in last 6 hours, Restriction Criteria (Pharmacy will review and approve if criteria met): Unable to take or tolerate medications administered via the enteral route or orally (not just NPO) acetaminophen tablet 1,000 mg (TylenoL) 1,000 mg, oral, Once as needed, other, If patient has not received in the previous 6 hours, Starting on Mon01/09/24 at 1003, For 1 dose, PACU (only), Oral unless RASS less than -1 or nausea/vomiting. Do not use if given in last 6 hours BUPivacaine 0.25 % (2.5 mg/mL) injection (Marcaine) As needed, Starting on Mon01/09/24 at 0930, Intra-Op Given 01/09/2024 9:30 AM CDT 10 mL Right Groin ceFAZolin 1 g in NaCl 0.9% irrigation pour bottle irrigation, Once in surgery, OR use only, Starting on Mon01/09/24 at 0721, For 1 dose, Intra-Op, Irrigation Use Only Refrigerate chlorhexidine 0.12 % mouthwash 15 mL (Peridex) 15 mL, swish & spit, Once as needed, Chlorhexidine mouthwash (Peridex) should be given if patient did not complete oral care, if completion is greater than 4 hours prior to surgery or procedure start time and they do not have the opportunity to brush their teeth now (or at this time)., Starting on Mon01/09/24 at 0643, For 1 dose, Pre-Op, Instruct patient to swish entire content of Chlorhexidine 0.12% mouthwash (PERIDEX) 15 mL cup for 30 seconds, then spit, swish & spit. If patient is at risk for aspiration, apply Chlorhexidine 0.12% mouthwash to a swab and gently swab the patient's teeth and gums. Ensure swab is not oversaturated. fentaNYL injection 25 mcg (Sublimaze) 25 mcg, intravenous, Every 2 min PRN, moderate pain or score 4-6 of 10, severe pain or score 7-10 of 10, Starting on Mon01/09/24 at 1003, PACU (only), Up to maximum total dose of 200 mcg Given 01/09/2024 10:29 AM CDT 25 mcg Given 01/09/2024 10:24 AM CDT 25 mcg metoprolol tablet 12.5 mg (Lopressor) 12.5 mg, oral, Once as needed, if patient did not take their last scheduled dose of beta sheridan prior to arrival, Starting on Mon01/09/24 at 0643, For 1 dose, Pre-Op, Do not give if patient does not take scheduled beta blockers, if patient is receiving intravenous vasopressors or inotropes, if heart rate is less than 50 beats per minute, if systolic blood pressure is less than 90 mmHg or if diastolic blood pressure is less than 40 mmHg, or if patient has an allergy to metoprolol. oxyCODONE IR tablet 5 mg (Roxicodone) 5 mg, oral, Once as needed, For pain 4 or greater, Starting on Mon01/09/24 at 1003, For 1 dose, PACU (only) Given 01/09/2024 10:27 AM CDT 5 mg sodium chloride 0.9 % injection 10 mL 10 mL, intravenous, As needed, line care, Starting on Mon01/09/24 at 0643, Pre-Op, Peripheral Intravenous Catheter and Rapid Infusion Catheter, prior to blood sampling, post blood transfusion or post blood sampling sodium chloride 0.9 % injection 3 mL 3 mL, intravenous, As needed, line care, Starting on Mon01/09/24 at 0643, Pre-Op, Prior to and following infusion and between multiple consecutive infusions: sodium chloride 0.9 % injection sodium chloride 0.9 % injection 3 mL 3 mL, intravenous, Every 12 hours scheduled, First dose on Mon01/09/24 at 0900, Pre-Op, Peripheral Intravenous Catheter and Rapid Infusion Catheter, when no infusion to maintain patency documented in this encounter Active and Recently Administered Medications Times are shown in CDT. Scheduled Medication Order 01/07/2024 01/08/2024 01/09/2024 sodium chloride 0.9 % injection 3 mL 3 mL, intravenous, Every 12 hours scheduled, First dose on Mon01/09/24 at 0900, Pre-Op, Peripheral Intravenous Catheter and Rapid Infusion Catheter, when no infusion to maintain patency 0900 (Due) Continuous Medication Order 01/07/2024 01/08/2024 01/09/2024 electrolyte-A solution (Plasma-Lyte A) 20 mL/hr, intravenous, Continuous, Starting on Mon01/09/24 at 1000, PACU & Post-Op 1000 (Due) PRN Medication Order 01/07/2024 01/08/2024 01/09/2024 acetaminophen injection 1,000 mg(Linked Group 1) 1,000 mg, intravenous, at 400 mL/hr, Administer over 15 Minutes, Once as needed, other, If patient has not received in previous 6 hours, Starting on Mon01/09/24 at 1003, For 1 dose, PACU (only), Oral unless RASS less than -1 or nausea/vomiting. Do not use if given in last 6 hours, Restriction Criteria (Pharmacy will review and approve if criteria met): Unable to take or tolerate medications administered via the enteral route or orally (not just NPO) acetaminophen tablet 1,000 mg (TylenoL)(Linked Group 1) 1,000 mg, oral, Once as needed, other, If patient has not received in the previous 6 hours, Starting on Mon01/09/24 at 1003, For 1 dose, PACU (only), Oral unless RASS less than -1 or nausea/vomiting. Do not use if given in last 6 hours BUPivacaine 0.25 % (2.5 mg/mL) injection (Marcaine) (CANCELED) As needed, Starting on Mon01/09/24 at 0930, Intra-Op 0930 (Given - Provid er: Jhoan Ribera M.D.) ceFAZolin 1 g in NaCl 0.9% irrigation pour bottle irrigation, Once in surgery, OR use only, Starting on Mon01/09/24 at 0721, For 1 dose, Intra-Op, Irrigation Use Only Refrigerate chlorhexidine 0.12 % mouthwash 15 mL (Peridex) 15 mL, swish & spit, Once as needed, Chlorhexidine mouthwash (Peridex) should be given if patient did not complete oral care, if completion is greater than 4 hours prior to surgery or procedure start time and they do not have the opportunity to brush their teeth now (or at this time)., Starting on Mon01/09/24 at 0643, For 1 dose, Pre-Op, Instruct patient to swish entire content of Chlorhexidine 0.12% mouthwash (PERIDEX) 15 mL cup for 30 seconds, then spit, swish & spit. If patient is at risk for aspiration, apply Chlorhexidine 0.12% mouthwash to a swab and gently swab the patient's teeth and gums. Ensure swab is not oversaturated. droPERidoL injection 0.625 mg (Inapsine) 0.625 mg, intravenous, Every 6 hours PRN, nausea, vomiting, Starting on Mon01/09/24 at 1003, PACU (only), For a total of 3 doses in a 24 hour period. RASS must be -2 or higher to administer. If nausea and vomiting persists move to granisetron. (Order of antiemetic administration - ondansetron then haloperidol or droperidol then granisetron) fentaNYL injection 25 mcg (Sublimaze) 25 mcg, intravenous, Every 2 min PRN, moderate pain or score 4-6 of 10, severe pain or score 7-10 of 10, Starting on Mon01/09/24 at 1003, PACU (only), Up to maximum total dose of 200 mcg 1024 (Given - Provid er: Skyla Angulo R.N.)1029 (Given - Provider: Skyla Angulo R.N.) granisetron (PF) injection 1 mg (KytriL) 1 mg, intravenous, Once as needed, nausea, vomiting, Starting on Mon01/09/24 at 1003, For 1 dose, PACU (only), If patient does not respond to ondansetron or haloperidol. (Order of antiemetic administration - ondansetron then haloperidol or droperidol then granisetron) metoprolol tablet 12.5 mg (Lopressor) 12.5 mg, oral, Once as needed, if patient did not take their last scheduled dose of beta sheridan prior to arrival, Starting on Mon01/09/24 at 0643, For 1 dose, Pre-Op, Do not give if patient does not take scheduled beta blockers, if patient is receiving intravenous vasopressors or inotropes, if heart rate is less than 50 beats per minute, if systolic blood pressure is less than 90 mmHg or if diastolic blood pressure is less than 40 mmHg, or if patient has an allergy to metoprolol. ondansetron (PF) injection 4 mg (Zofran) 4 mg, intravenous, Every 6 hours PRN, nausea, vomiting, (If patient has not received in the previous 6 hours), Starting on Mon01/09/24 at 1003, PACU (only), Administer first. If nausea and vomiting persists, proceed with haloperidol or droperidol. (Order of antiemetic administration - ondansetron then haloperidol or droperidol then granisetron) oxyCODONE IR tablet 5 mg (Roxicodone) (COMPLETED) 5 mg, oral, Once as needed, For pain 4 or greater, Starting on Mon01/09/24 at 1003, For 1 dose, PACU (only) 1027 (Given - Provid er: Skyla Angulo R.N.) sodium chloride 0.9 % injection 10 mL 10 mL, intravenous, As needed, line care, Starting on Mon01/09/24 at 0643, Pre-Op, Peripheral Intravenous Catheter and Rapid Infusion Catheter, prior to blood sampling, post blood transfusion or post blood sampling sodium chloride 0.9 % injection 3 mL 3 mL, intravenous, As needed, line care, Starting on Mon01/09/24 at 0643, Pre-Op, Prior to and following infusion and between multiple consecutive infusions: sodium chloride 0.9 % injection Linked Groups Order Group 1: acetaminophen tablet 1,000 mg (TylenoL)Jump to med 1,000 mg, oral, Once as needed, other, If patient has not received in the previous 6 hours, Starting on Mon01/09/24 at 1003, For 1 dose, PACU (only), Oral unless RASS less than -1 or nausea/vomiting. Do not use if given in last 6 hours Or acetaminophen injection 1,000 mgJump to med 1,000 mg, intravenous, at 400 mL/hr, Administer over 15 Minutes, Once as needed, other, If patient has not received in previous 6 hours, Starting on Mon01/09/24 at 1003, For 1 dose, PACU (only), Oral unless RASS less than -1 or nausea/vomiting. Do not use if given in last 6 hours, Restriction Criteria (Pharmacy will review and approve if criteria met): Unable to take or tolerate medications administered via the enteral route or orally (not just NPO) documented in this encounter Additional Health Concerns Assessment Noted Time PHQ-9 Depression Total Score: 5 01/04/20 3:57 AM CDT documented as of this encounter Care Teams Trimmer Tailer Relationship Specialty Start Date End Date Elsewhere, Pcp PCP - General Internal Medicine 05/10/22 documented as of this encounter
--- OUTSIDE RECORDS SUMMARY | 2024-05-21 14:02 | XMS_ITS | Encounter Summary ---
Author Organization [facility] Address [address] [place] [address] Care Team Providers Care Justice Professor Name Role Phone Elsewhere, Pcp Primary Care Provider Unavailabl e Encounter Details Date Type Department Care Team (Late st Contact Info) Description 01/09/2024 7:46 AM CDT Anesthesia Event RST ROMB MAIN OR [address] [place] [address] [phone] Jaguar Viera M.D. [address] [place] [phone] Krista Wright APRN, ROBERTO, D.N.P. [address] [place] [phone] Anesthesia Record Procedure Summary Procedure Name Responsible Anesthesiologist Anesthesia Start Time Anesthesia Stop Time DEBRIDEMENT, IRRIGATION, Right groin seroma. Removal Mole Right Groin, Closure (Right: Groin) Jaguar Viera M.D. 01/09/24 0746 01/09/24 0951 Events Date Time Event Comment 01/09/2024 0746 An Start Machine/Equipme nt Checked Infection Precautions Followed Procedure/Site Verified NPO Status Verified Supine Standard ASA Monitors Applied 0754 An Induction 0758 An Intubation 0800 Turnover to Proceduralist 0815 Proc Start 0905 Anes CS Handoff I, Krista hayden APRN, HEAD INSULATION BOARD SAW OPERATOR, D.N.P., attest that I have reconciled the controlled substances and that I have reviewed all the significant information with the next anesthesia provider assuming care of this patient. 09 [facility] CS Handoff I, Shani Joao kennedy APRN, HEAD INSULATION BOARD SAW OPERATOR, attest that I have reconciled the controlled substances and that I have reviewed all the significant information with the next anesthesia provider assuming care of this patient. 0936 Proc Fin 0938 Turnover to ANE Staff 0941 Airway Removal Criteria Met 09 Extubation/Airway Removed 0944 an stop data 0951 An End I completed my handoff to the receiving staff during which we 1. Identified the patient 2. Identified the responsible provider 3. Reviewed the pertinent medical history 4. Discussed the surgical course 5. Reviewed intra-op anesthesia management and issues during anesthesia 6. Set expectations for post-procedure period 7. Allowed opportunity for questions and acknowledgement of understanding. Meds Name Total fentanyl injection 50 mcg/mL 200 mcg lidocaine 2% (mg) injection 100 mg succinylcholine 20 mg/mL injection 120 m g ondansetron 4 mg/2 mL injection 4 mg propofol 10 mg/mL infusion 616 mg dexAMETHasone (Decadron) injection 4 mg/ mL 4 mg ceFAZolin (Ancef) injection 1 g/5 mL 2 g electrolyte-A (Plasma-Lyte A) solution 4 00 mL * Agents No agents on file. * Blood No blood administrations on file. Lines, Drains, and Airways Type Details Placement Removal Wound 08/31/22; 1429; N; Incision; Spine; Lower, Medial 08/31/22 1429 by Nisreen Mays, KathyN., C.W.O.C.N. Wound 08/07/23; N; Incisio n; Neck; Right, Anterior 08/07/23 0000 by Ana Pandya R.N. Wound 08/07/23; N; Punctur e; Groin; Right 08/07/23 0000 by Ana Pandya R.N. Scope Sites 08/07/23; Chest; 1 (NEEDLETACK SITE); Anterior, Medial, Mid; 2 (ROBOTIC UPPER ARM SITE); Anterior, Medial, Upper, Right; 3 (CAMERA SITE); Anterior, Mid, Right; 4 (CROSS CLAMP SITE); Upper, Other (Comment), Lateral, Right (AXILLARY); 5 (PERICARDIAL STITCH SITE); Other (Comment), Lateral, Lower, Right (AXILLARY) 08/07/23 0000 by Ana Pandya R.N. Wound 08/07/23; 2300; Y; Pretibial; Left 08/07/23 2300 by [facility]ren [facility]rosio [facility], [facility] 11/01/23; 0000; Othe r; Toe 1st, great; Anterior, Left 11/01/23 0000 by Rashida Mckeon, R.N. Wound 11/01/23; 0000; Othe r; Wrist; Left 11/01/23 0000 by Rashida Mckeon, R.N. Wound 11/01/23; 0000; Othe r; Groin; Right 11/01/23 0000 by Rashida Mckeon, R.N. Peripheral IV Placement Date: 12/21 ; Placement Time: 06; Catheter Size: 20 G; Orientation: Left, Lower, Posterior; Location: Forearm; Site Prep: Chlorhexidine (Preferred); Technique: Anatomical landmarks; Inserted by: TDS; Insertion Attempts: 1 01/09/24 0654 by Indio Chandler Wound 01/09/24; 09; Inci jeff; Groin; Anterior, Right 01/09/24 09 by Smiley Malcolm, R.NHomero ETT Placement Date: 12/21 ; Placement Time: 075 (created via procedure documentation); Mask Ventilation: Easy mask; Technique: Video laryngoscopy; Type: Standard ETT; Single Lumen Tube Size: 7 mm; Cuffed: Yes; Location: Oral; Grade View: Grade 1; Insertion Attempts: 1; Placement Verification: Bilateral breath sounds, Positive ETCO2, Symmetrical chest wall movement; Removal Date: 01/09/24; Removal Time: 94001/09/24 0758 by Krista Wright APRN, CRNA, D.N.P. 01/09/24 0941 by Krista Wright APRN, CRNA, D.N.P. documented in this encounter Social History Tobacco Use Types Packs/Day Years Used Date Smoking Tobacco: Former Cigarettes 0 10/03/1966 - 03/05/1974 Smokeless Tobacco: Never Alcohol Use Standard Drinks/Week Comments Yes 10 (1 standard drink = 0.6 oz pu re alcohol) [facility] Utilities Answer Date Recorded In the past 12 months has th e [employer], gas, oil, or water company threatened to [...] often do you attend chur ch or amish services? More than 4 times per year 08/15/2022 Do you belong to any clubs o r organizations such as hoahaoism groups, unions, fraternal or athletic groups, or [...] Answer Date Recorded PHQ-2 Score 2 01/04/2024 [facility] - Occupational Stress Questionnaire Answer Date [...] your living situation today? I have a [facility] place to live 12/01/2023 Education Answer Date Recorded What is the highest level of school you have completed or the highest degree you have received? Bachelor's degree (e.g., BA, AB, BS) 08/15/2022 Comments No Sex and Gender Information Value Date Recorded Sex Assigned at Female 05/11/2022 7:48 AM CONTACT CENTER AGENT Legal Sex Female 9:30 PM CONTACT CENTER AGENT Gender Identity Female 05/11/2022 7:48 AM CONTACT CENTER AGENT Sexual Orientation Straight 05/11/2022 7: 48 AM CONTACT CENTER AGENT documented as of this encounter OR Notes * Anesthesia Postprocedure Evaluation - Jaguar Viera M.D. - 01/09/2024 1:05 PM CDT Patient: Gladys Zamarripa Procedure Summary Date: 01/09/24 Room / Location: [place] [address] / [facility] in [place], [place] Anesthesia Start: 745 Anesthesia Stop: 950 Procedure: DEBRIDEMENT, IRRIGATION, Right groin seroma. Removal Mole Right Groin, Closure (Right: Groin) Diagnosis: Seroma Initial (Seroma Initial [T88.8XXA].) Providers: Richard Aguayo M.D. Responsible Provider: Jaguar iVera M.D. Anesthesia Type: general ASA Status: 3 Anesthesia Type: general Last vitals Vitals Value Taken Time BP 160/144 01/09/24 1100 Temp 36.5 ??C 01/09/24 0950 Pulse 74 01/09/24 1100 Resp 14 01/09/24 1100 SpO2 88 % 01/09/24 1100 Please reference Vitals flowsheet for most recent vital signs. Anesthesia Post Evaluation Cardiovascular status: hemodynamics (HR & BP) acceptable Respiratory status: patent airway with spontaneous effort Temperature: normothermic Oxygen requirements: room air Level of consciousness: awake Pain score: pain adequately controlled and/or at baseline Post Op nausea/vomiting: none Hydration status: euvolemic Notable Events No notable events documented. * Anesthesia Preprocedure Evaluation - Jaguar Viera M.D. - 01/09/2024 8:09 AM CDT Preprocedure Anesthesia & H&P Assessment Procedure Summary Anesthesia Start Date/Time: 01/09/24 0746 Procedure: DEBRIDEMENT, IRRIGATION, Right groin seroma. Removal Mole Right Groin (Right) Diagnosis: Seroma Initial [T88.8XXA] Pre-op diagnosis: Seroma Initial [T88.8XXA]. Location: [address] [facility] / [facility] in [place], [place] Providers: Richard Aguayo M.D. Pertinent components of the patient's history including current problem list, medical history, surgical history, family history, social history, medications and allergies were reviewed. Present illness and pre-op diagnosis were confirmed. The planned surgery / procedure was verified with the patient / legal guardian. The patient's general health condition remains unchanged RELEVANT COMORBID CONDITIONS CV (+) Atrial Fibrillation Longstanding Persistent (HCC) (+) Chronic Systolic (Congestive) Heart Failure (HCC) (+) Hypertension Essential Primary PSYCH (+) Major Depressive Disorder, Recurrent, Unspecified (HCC) HEME (+) Anemia (+) Anemia Of Chronic Disease (+) Pancytopenia (HCC) Other (+) Alcohol Mild Use Disorder (Abuse) Uncomplicated OBJECTIVE PHYSICAL EXAMINATION Airway (HEENT) Mallampati: III TM Distance: >3 FB Neck ROM: Full Cardiovascular Rhythm: Regular Cardiovascular Assessment: cardiovascular normal Functional Capacity: >4 METS Pulmonary Pulmonary Assessment: Clear General / Constitutional Constitutional Assessment: Normal General State of Health:: calm Neurological Neurologic Assessment: alert and alert and oriented x 3 ASSESSMENT / PLAN ANESTHESIA PLAN ASA: 3 Anesthesia Plan: general Patient seen and allergies reviewed, anesthesia plan and risks discussed directly with patient /legal guardian or through an bank note designer. Risks/Benefits/Alternatives of Blood transfusion discussed with patient / legal guardian, includingan opportunity to ask questions and/or decline some or all transfusion therapies. The patient / legal guardian consented to the use of all blood products, as deemed medically necessary Approval to Proceed: approved for anesthesia * Anesthesia Procedure Notes - Krista Wright APRN, ROBERTO, D.N.P. - 01/09/2024 8:05 AM CDTAssociated Order(s): Airway Airway Date/Time: 01/09/2024 7:58 AM Performed by: Krista Wright APRN, CRNA, D.N.P. Authorized by: Jaguar Viera M.D. Patient location during procedure: OR / Procedure Area PROCEDURE DETAILS: Mask difficulty assessment: easy mask Final airway type: video laryngoscope Laryngeal Manipulation: no Final best view of glottic structures - Cormack/Lehane Score: grade 1 ETT location: oral VL device: glide scope Mitchell scope blade size: 3 Tube size: 7 ETT distance at teeth/gum: 21 Oral tube type: standard ETT Cuffed: yes Number of attempt to successful placement: 1 Airway confirmation: bilateral breath sounds, positive ETCO2 and bilateral chest rise Other previous techniques attempted: none PRE PROCEDURE DETAILS: Pre evaluation for airway management: procedure Urgency: elective Preop assessment of probable difficulty: questionable / suspicious difficult airway Preoxygenation: bag valve mask SEDATION / ANESTHESIA Anesthesia method: anesthesia POST PROCEDURE DETAILS: Procedure outcome: successful Notable Events: no complications documented in this encounter Plan of Treatment Upcoming Encounters Date Type Department Care Team (Latest Contact Info) Description 05/29/2024 12:15 PM CONTACT CENTER AGENT Clinical Communication Virtual Review in [place], [place] [address] [place] [phone] 05/31/2024 11:00 AM CONTACT CENTER AGENT Appointment Department of Laboratory Medicine and Pathology, [facility], in [address] [phone] Patricia Parker APRN, C.N.P., D.N.P. [address] [place] [phone] 05/31/2024 2:00 PM CONTACT CENTER AGENT Comprehensive Visit Preoperative Evaluation Center in [address] [phone] Arianna Jeffries M.D. [address] [place] [phone] 05/31/2024 2:45 PM CONTACT CENTER AGENT Comprehensive Visit Preoperative Evaluation Center in [place], [place] [address] [place] [phone] Chris Moreno APRN, C.N.P., M.S. [address] [place] [phone] 06/03/2024 8:15 AM CONTACT CENTER AGENT Hospital Encounter Post Anesthesia Care Unit in [place], [place] [address] [place] [phone] Tahir Moore M.D. [address] [place] [address] [phone] 06/03/2024 8:15 AM CONTACT CENTER AGENT - 06/03/2024 2:12 PM CONTACT CENTER AGENT Surgery RST ROMB MAIN OR [address] [place] [address] [phone] Tahir Moore M.D. [address] [place] [phone] C1-2 fusion 07/02/2024 11:00 AM CONTACT CENTER AGENT Procedure visit Division of Pain Medicine in [place], [place] [address] [place] [phone] Adam Barlow M.D. 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 - 01/09/2024 7:58 AM CDT Krista Wright APRN, CRNA, D.N.P. 01/09/2024 8:06 AM Airway Date/Time: 01/09/2024 7:58 AM Performed by: Krista Wright APRN, CRNA, D.N.P. Authorized by: Jaguar Viera M.D. Patient location during procedure: OR / Procedure Area PROCEDURE DETAILS: Mask difficulty assessment: easy mask Final airway type: video laryngoscope Laryngeal Manipulation: no Final best view of glottic structures - Cormack/Lehane Score: grade 1 ETT location: oral VL device: glide scope Mitchell scope blade size: 3 Tube size: 7 ETT distance at teeth/gum: 21 Oral tube type: standard ETT Cuffed: yes Number of attempt to successful placement: 1 Airway confirmation: bilateral breath sounds, positive ETCO2 and bilateral chest rise Other previous techniques attempted: none PRE PROCEDURE DETAILS: Pre evaluation for airway management: procedure Urgency: elective Preop assessment of probable difficulty: questionable / suspicious difficult airway Preoxygenation: bag valve mask SEDATION / ANESTHESIA Anesthesia method: anesthesia POST PROCEDURE DETAILS: Procedure outcome: successful Notable Events: no complications Jaguar Mera M.D. ANESTHESIA ORDERABLES Rosmery galvan Result documented in this encounter Visit Diagnoses Not on filedocumented in this encounter Administered Medications Inactive Administered Medications - up to 3 most recent administrations Medication Order MAR Action Action Date Dose Rate Site ceFAZolin injection (Ancef) intravenous, As needed, Starting on Mon01/09/24 at 0808, Anesthesia Intra-op Given 01/09/2024 8:08 AM CDT 2 g dexAMETHasone injection (Decadron) intravenous, As needed, Starting on Mon01/09/24 at 0804, Anesthesia Intra-op Given 01/09/2024 8:04 AM CDT 4 mg electrolyte-A solution (Plasma-Lyte A) intravenous, Continuous Infusion: Per Instructions PRN, Starting on Mon01/09/24 at 0753, Anesthesia Intra-op New Bag 01/09/2024 7:53 AM CDT fentaNYL injection (Sublimaze) intravenous, As needed, Starting on Mon01/09/24 at 0755, Anesthesia Intra-op Given 01/09/2024 9:49 AM CDT 50 mcg Given 01/09/2024 8:22 AM CDT 50 mcg Given 01/09/2024 7:55 AM CDT 100 mcg lidocaine (PF) (cardiac) injection intravenous, As needed, Starting on Mon01/09/24 at 0754, Anesthesia Intra-op Given 01/09/2024 7:54 AM CDT 100 mg ondansetron (PF) injection (Zofran) intravenous, As needed, Starting on Mon01/09/24 at 0822, Anesthesia Intra-op Given 01/09/2024 8:22 AM CDT 4 mg propofol 10 mg/mL infusion (Diprivan) intravenous, Continuous Infusion: Per Instructions PRN, Starting on Mon01/09/24 at 0754, Anesthesia Intra-op Rate/Dose Change 01/09/2024 9:17 AM CDT 25 mcg/kg/min 9.3 mL/hr Rate/Dose Change 01/09/2024 9:10 AM CDT 50 mcg/kg/min 18.6 mL/hr Given 01/09/2024 7:56 AM CDT 120 mg succinylcholine (PF) injection (Anectine) intravenous, As needed, Starting on Mon01/09/24 at 0757, Anesthesia Intra-op Given 01/09/2024 7:57 AM CDT 120 mg documented in this encounter Additional Health Concerns Assessment Noted Time PHQ-9 Depression Total Score: 5 01/04/20 3:57 AM CDT documented as of this encounter Care Teams Justice Professor Relationship Specialty Start Date End Date Elsewhere, Pcp PCP - General Internal Medicine 05/10/22 documented as of this encounter
--- OUTSIDE RECORDS SUMMARY | 2024-05-21 14:02 | XMS_ITS | Encounter Summary ---
Author Organization [facility] Address [address] [place] [address] Care Team Providers Care Hoisting Engineer Pile Driving Name Role Phone Elsewhere, Pcp Primary Care Provider Unavailabl e Reason for Referral * Outpatient (Routine) - Authorized Specialty Diagnoses / Procedures Referred By Chanel t Referred To Contact Anesthesiology Diagnoses Preanesthetic Medical Exam Anemia Chris Moreno APRN, C.N.P., M.S. [address] [place] [phone] Phone: tel: fax: [facility] Referral ID Status Reason Start Date Expiration Date V isits Requested Visits Authorized [id number] Authorized 04/26/2024 10/26/2025 1 1 TITCHER LOCKSTITCH Encounter Details Date Type Department Care Team (Late st Contact Info) Description 04/26/2024 Orders Only Preoperative Evaluation Center in [place], [place] [address] [place] [phone] Chris Moreno APRN, C.N.P., M.S. [address] [place] [phone] Preanesthetic Medical Exam (Primary Dx); Anemia Social History Tobacco Use Types Packs/Day Years Used Date Smoking Tobacco: Former Cigarettes 0 10/03/1966 - 03/05/1974 Passive Smoke Exposure: Never Smokeless Tobacco: Never Alcohol Use Standard Drinks/Week Comments Yes 10 (1 standard drink = 0.6 oz pu re alcohol) [facility] Utilities Answer Date Recorded In the past 12 months has e [employer], gas, oil, or water [employer] threatened to shut off services in your [...] week 08/15/2022 How often do you attend [facility] or mormonism services? More than 4 times per year 08/15/2022 Do you belong to any clubs o r organizations such as mormonism groups, unions, fraternal or athletic groups, or [...] Answer Date Recorded PHQ-2 Score 2 01/04/2024 [facility] - Occupational Stress Questionnaire Answer Date [...] your living situation today? I have a [facility] place to live 12/01/2023 Education Answer Date Recorded What is the highest level of school you have completed or the highest degree you have received? Bachelor's degree (e.g., BA, AB, BS) 08/15/2022 Comments No Sex and Gender Information Value Date Recorded Sex Assigned at Female 05/11/2022 7:48 AM TOPSTITCHER LOCKSTITCH Legal Sex Female 9:30 PM TOPSTITCHER LOCKSTITCH Gender Identity Female 05/11/2022 7:48 AM TOPSTITCHER LOCKSTITCH Sexual Orientation Straight 05/11/2022 7: 48 AM TOPSTITCHER LOCKSTITCH documented as of this encounter Plan of Treatment Upcoming Encounters Date Type Department Care Team (Latest Contact Info) Description 05/29/2024 12:15 PM TOPSTITCHER LOCKSTITCH Clinical Communication Virtual Review in [place], [place] 200 [place] [phone] 05/31/2024 11:00 AM TOPSTITCHER LOCKSTITCH Appointment Department of Laboratory Medicine and Pathology, [facility], in [place], [place] [address] [place] [phone] Patricia Parker APRN, C.N.P., D.N.P. [address] [place] [phone] 05/31/2024 2:00 PM TOPSTITCHER LOCKSTITCH Comprehensive Visit Preoperative Evaluation Center in [place], [place] [address] [place] [phone] Arianna Jeffries M.D. [address] [place] [phone] 05/31/2024 2:45 PM TOPSTITCHER LOCKSTITCH Comprehensive Visit Preoperative Evaluation Center in [place], [place] [address] [place] [phone] Chris Moreno APRN, C.N.P., M.S. [address] [place] [phone] 06/03/2024 8:15 AM TOPSTITCHER LOCKSTITCH Hospital Encounter Post Anesthesia Care Unit in [place], [place] [address] [place] [phone] Tahir Moore M.D. [address] [place] [phone] 06/03/2024 8:15 AM TOPSTITCHER LOCKSTITCH - 06/03/2024 2:12 PM TOPSTITCHER LOCKSTITCH Surgery RST ROMB MAIN OR [address] [place] [phone] Tahir Moore M.D. [address] [place] [phone] C1-2 fusion 07/02/2024 11:00 AM TOPSTITCHER LOCKSTITCH Procedure visit Division of Pain Medicine in [place], [place] [address] [place] [phone] Adam Barlow M.D. [address] [place] [phone] Scheduled Procedures Name Priority Associated Diagnoses Date/Ti me 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 06/03/2024 8:15 AM TOPSTITCHER LOCKSTITCH Scheduled Referrals Name Type Priority Associated Diagnoses Order Schedule Preoperative Medical Evaluation - REJI Anemia Consult (clinic) Outpatient Referral Routine Preanesthetic Medical Exam Anemia Expected: 04/26/2024, Expires: 07/25/2025 documented as of this encounter Visit Diagnoses Diagnosis Stenosis Spinal- Primary Preanesthetic Medical Exam- Primary Anemia Stenosis Spinal documented in this encounter Additional Health Concerns Assessment Noted Time PHQ-9 Depression Total Score: 5 01/04/20 24 3:57 AM CDT documented as of this encounter Care Teams Hoisting Engineer Pile Driving Relationship Specialty Start Date End Date Elsewhere, Pcp PCP - General Internal Medicine 05/10/22 documented as of this encounter
--- OUTSIDE RECORDS SUMMARY | 2024-05-21 14:02 | XMS_ITS | Encounter Summary ---
Author Organization [facility] Address [address] [place] [address] Care Team Providers Care Office Machines Teacher Name Role Phone Elsewhere, Pcp Primary Care Provider Unavailabl e Reason for Referral * Outpatient (Routine) - Closed Specialty Diagnoses / Procedures Referred By Chanel segovia Referred To Contact Cardiovascular Surgery Kary Wahl P.A.-C. 200 [place] [phone] Phone: tel: fax: [facility] Referral ID Status Reason Start Date Expiration Date Visits Re quested Visits Authorized [id number] Closed 01/09/2024 07/10/2025 1 1 Encounter Details Date Type Department Care Team (Latest Contact Info) Description 01/09/2024 6:06 AM CDT - 01/09/2024 12:00 PM CDT Hospital Encounter RST ROMB MAIN OR [address] [place] [phone] Richard Aguayo M.D. [address] [place] [phone] Seroma Initial Discharge Disposition: Home or Self Care Social History Tobacco Use Types Packs/Day Years Used Date Smoking Tobacco: Former Cigarettes 0 10/03/1966 - 03/05/1974 Smokeless Tobacco: Never Tobacco Cessation:Counseling Given: Not Answered Alcohol Use Standard Drinks/Week Comments Yes 10 (1 standard drink = 0.6 oz pu re alcohol) [facility] Utilities Answer Date Recorded In the past 12 months has e [employer], gas, oil, or water company threatened to [...] 08/15/2022 How often do you attend [facility] or orthodoxy services? More than 4 times per year 08/15/2022 Do you belong to any clubs o r organizations such as methodist groups, unions, fraternal or athletic groups, or [...] Answer Date Recorded PHQ-2 Score 2 01/04/2024 [facility] - Occupational Stress Questionnaire [...] Sex Assigned at Female 05/11/2022 7:48 AM SUSTAINABILITY COACH Legal Sex Female 9:30 PM SUSTAINABILITY COACH Gender Identity Female 05/11/2022 7:48 AM SUSTAINABILITY COACH Sexual Orientation Straight 05/11/2022 7: 48 AM SUSTAINABILITY COACH documented as of this encounter Last Filed Vital Signs Vital Sign Reading Time Taken Comments Blood Pressure 160/144 01/09/2024 11:00 AM CDT Pulse 76 01/09/2024 11:05 AM CDT Temperature 36.5 C (97.7 F) 01/09/2024 9:50 AM CDT Respiratory Rate 16 01/09/2024 11:05 AM CDT Oxygen Saturation 96% 01/09/2024 11:05 AM CDT Inhaled Oxygen Concentration - - [...] Richard Aguayo M.D.Varol, Muhammed, M.D.Vaddavalli, Venkata Vineeth, M.B.B.S. RST ROMB OR DISCHARGE DISPOSITION Home or Self Care [1] ACTIVE ISSUES REQUIRING FOLLOW UP Your primary care provider is your long-term healthcare provider. Please follow-up with them for any medication refills, home care assistance, or an ongoing chronic medical conditions as needed OUTPATIENT FOLLOWUP [facility] Appointments: For appointment details refer to your Patient Appointment Guide. Outside [facility] Appointments: Consults and Follow-ups to Schedule Cardiovascular Surgery office visit (clinic) Jan 16, 2024 Clinic in one week to evaluate wound healing Region: [facility] Provider Needed: MEKA Visit length: Short Visit type: General Patient location: Face to face Wrap-Up Visit: No Contact Information for Follow-ups [facility] Next Steps: Follow up Comments: Clinic in one week to evaluate wound healing Questions: Region: [facility] Provider Needed: MEKA Visit length: Short Visit type: General Patient location: Face to face Wrap-Up Visit: No Referral Status: Authorized DISCHARGE MEDICATIONS: At the time of dismissal, pain medications (examples include oxycodone, Dilaudid, Tramadol, etc.)will be prescribed to you if needed. Duration will be determined on a [id number]-kf-[id number] basis and will not exceed 2 weeks. [...] Take 1 tablet by mouth daily. omega 7-jti-gou-fish oil (fish oil) 1,200 (144-216) mg capsule [...] mcg intramuscularly every 30 (thirty) days. pediatric axvbichivfyu-ikoh-snuclmed ([employer] COMPLETE) chewable tablet Chew 1 tablet [...] & Screen Expiration 01/11/2024 23:59 Testing Location [place] CBC without Differential Collection Time: 01/08/24 1:05 [...] after surgery 60 tablet 1 09/07/2022 omega 2-gvy-cqz-fish oil (fish oil) 1,200 (144-216) mg capsule [...] right groin. Primary Surgeon Richard Aguayo M.D. Straightener Surgeon Lisa Mahmood M.B.B.S. Specimen Seroma capsule Mole from right groin [...] (Latest Contact Info) Description 05/29/2024 12:15 PM SUSTAINABILITY COACH Clinical Communication Virtual Review in [place], [place] 200 [place] [phone] 05/31/2024 11:00 AM SUSTAINABILITY COACH Appointment Department of Laboratory Medicine and Pathology, [facility], in [place], [place] [address] [place] [phone] Patricia Parker APRN, C.N.P., D.N.P. [address] [place] [phone] 05/31/2024 2:00 PM SUSTAINABILITY COACH Comprehensive Visit Preoperative Evaluation Center in [place], [place] [address] [place] [phone] Arianna Jeffries M.D. [address] [place] [phone] 05/31/2024 2:45 PM SUSTAINABILITY COACH Comprehensive Visit Preoperative Evaluation Center in [place], [place] [address] [place] [phone] Chris Moreno APRN, C.N.P., M.S. [address] [place] [phone] 06/03/2024 8:15 AM SUSTAINABILITY COACH Hospital Encounter Post Anesthesia Care Unit in [place], [place] [address] [place] [phone] Tahir Moore M.D. [address] [place] [phone] 06/03/2024 8:15 AM SUSTAINABILITY COACH - 06/03/2024 2:12 PM SUSTAINABILITY COACH Surgery RST ROMB MAIN OR [address] [place] [phone] Tahir Moore M.D. [address] [place] [phone] C1-2 fusion 07/02/2024 11:00 AM SUSTAINABILITY COACH Procedure visit Division of Pain Medicine in [place], [place] [address] [place] [phone] Adam Barlow M.D. [address] [place] [phone] Scheduled Procedures Name Priority Associated Diagnoses Date/Ti me 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 06/03/2024 8:15 AM SUSTAINABILITY COACH Scheduled Referrals Name Type Priority Associated Diagnoses [...] LAB MICROBIOLOGY - GENERAL ORDERABLES Final Result [facility] [address] [place] [address], [facility] [address] [place] [address] * Fungal Smear (01/09/2024 9:20 AM CDT) Pathologist [facility] Fungal Smear Negative. 01/09/2024 6:04 PM CDT DTL Aspirate (Groin, Right) 01/09/2024 9:20 AM CDT us Richard Aguayo M.D. LAB MICROBIOLOGY - GENERAL ORDERABLES Final Result Performing Organization Address City/[facility]/ZIP Co de Phone Number [facility] [address] [place] [address], [facility] [address] [place] [address] * Gram Stain (01/09/2024 9:20 AM CDT) Gram Stain No organisms seen. White blood cells, Moderate. 01/09/2024 12:24 PM CDT DTL Aspirate (Groin, Right) 01/09/2024 9:20 AM CDT us Richard Aguayo M.D. LAB MICROBIOLOGY - GENERAL ORDERABLES Final Result [facility] [address] [place] [address], [facility] [address] [place] [address] * Fungal Culture, Routine (01/09/2024 9:20 AM CDT) Fungal Culture, Routine No growth after 24 days of incubation. 02/02/2024 1:01 PM CDT DTL Aspirate (Groin, Right) 01/09/2024 9:20 AM CDT us Richard Aguayo M.D. LAB MICROBIOLOGY - GENERAL ORDERABLES Final Result Performing Organization Address [facility] Co de Phone Number [facility] 200 [place] [address], [facility] 200 [place] [address] * Bacterial Culture, Anaerobic + Susceptibility (01/09/2024 9:20 AM CDT) Bacterial Culture, Anaerobic + Susc No growth after 14 days of incubation. 01/23/2024 8:39 AM CDT DTL Aspirate (Groin, Right) 01/09/2024 9:20 AM CDT Richard Aguayo M.D. LAB MICROBIOLOGY - GENERAL ORDERABLES Final Result Performing Organization Address [facility] de Phone Number [facility] [address] [place] [address], [facility] [address] [place] [address] * Surgical Pathology, Frozen Lab (01/09/2024 8:43 [...] nearest margin. Margins are submitted perpendicularly . Collection Supervisor tissue submitted for permanent sections. Grossed by Lauro Jones M.S., [place]([facility]). B. Received fresh labeled right groin seroma capsule is a 5 x 3.8 x 0.9 cm portion of pink-yellow capsule. Collection Supervisor tissue submitted for permanent sections. Grossed by Isaac Bernabe PA([facility]). 01/16/2024 9:13 AM CDT STMA Block Summary [...] and Sigifredo stains performed at [facility] on sections from block B4 are negative for microorganisms. Digital imaging was used in the diagnostic assessment of this case. Case seen in consultation with Dr. Marie Sultana 01/16/2024 9:13 AM CDT STMA Skin (Groin, Right) 01/09/2024 8:43 AM CDT Tissue (Groin, Right) 01/09/2024 8:49 AM CDT us Richard Aguayo M.D. LAB SURG PATH ORDERABLES Fi nal Result [facility] [address] [place] [address], [facility] 200 [facility] [address] [place] [address] documented in this encounter Visit Diagnoses Diagnosis Seroma Initial- Primary Stenosis Spinal documented in this encounter Admitting [...] use if given in last 6 hours ceFAZolin 1 g in NaCl 0.9% irrigation [...] documented as of this encounter Care Teams Office Machines Teacher Relationship Specialty Start Date End Date Elsewhere, Pcp PCP - General Internal Medicine 05/10/22 documented as of this encounter
--- OUTSIDE RECORDS SUMMARY | 2024-05-21 14:03 | XMS_ITS | Encounter Summary ---
Author Organization [facility] Address [address] [place] [address] Care Team Providers Care Welcome Center Attendant Name Role Phone Elsewhere, Pcp Primary Care Provider Unavailabl e Reason for Visit * Reason Onset Date Comments Med Question 12/11/2023 Encounter Details Date Type Department Care Team (Latest Contact Info) Description 12/11/2023 Clinical Communication Department of Cardiovascular Surgery in [place], [place] [address] [place] [phone] Richard Aguayo M.D. [address] [place] [phone] Med Question Social History Tobacco Use Types Packs/Day Years Used Date Smoking Tobacco: Former Cigarettes 0 10/03/1966 - 03/05/1974 Smokeless Tobacco: Never Alcohol Use Standard Drinks/Week Comments Yes 10 (1 standard drink = 0.6 oz pu re alcohol) [facility] Utilities Answer Date Recorded In the past 12 months has e [employer], gas, oil, or water company threatened to [...] any clubs o r organizations such as latter-day groups, unions, fraternal or athletic groups, or [...] Answer Date Recorded PHQ-2 Score 2 01/04/2024 [facility] - Occupational Stress [...] your living situation today? I have a [facility] place to live 12/01/2023 Education Answer Date Recorded What is the highest level of school you have completed or the highest degree you have received? Bachelor's degree (e.g., BA, AB, BS) 08/15/2022 Comments No Sex and Gender Information Value Date Recorded Sex Assigned at Female 05/11/2022 7:48 AM DRYING MACHINE OPERATOR PACKAGE YARNS Legal Sex Female 9:30 PM DRYING MACHINE OPERATOR PACKAGE YARNS Gender Identity Female 05/11/2022 7:48 AM DRYING MACHINE OPERATOR PACKAGE YARNS Sexual Orientation Straight 05/11/2022 7: 48 AM DRYING MACHINE OPERATOR PACKAGE YARNS documented as of this encounter Miscellaneous Notes * Telephone Encounter - Lindsay Alex APRN, C.N.P., D.N.P. - 12/12/2023 1:38 PM CDT I updated my note, we can have patient hold Aspirin 1 week prior, so 12/31 will be stop date. I haveupdated my note. * Telephone Encounter - Mack Momin - 12/11/2023 4:28 PM CDT Hello, the patient called in to clarify the medication instructions she received. The Antiplatelet instructions state Antiplatelet: Aspirin - last dose will be the day prior to surgery. Last dose 12/31. Is this meant to be one week prior to surgery last dose 12/31, or last dose 01/07? Thank you! documented in this encounter Plan of Treatment Upcoming Encounters Date Type Department Care Team (Latest Contact Info) Description 05/29/2024 12:15 PM DRYING MACHINE OPERATOR PACKAGE YARNS Clinical Communication Virtual Review in [address] [phone] 05/31/2024 11:00 AM DRYING MACHINE OPERATOR PACKAGE YARNS Appointment Department of Laboratory Medicine and Pathology, [facility], in [address] [phone] Patricia Parker APRN, C.N.P., D.N.P. [address] [place] [phone] 05/31/2024 2:00 PM DRYING MACHINE OPERATOR PACKAGE YARNS Comprehensive Visit Preoperative Evaluation Center in [address] [phone] Arianna Jeffries M.D. [address] [place] [phone] 05/31/2024 2:45 PM DRYING MACHINE OPERATOR PACKAGE YARNS Comprehensive Visit Preoperative Evaluation Center in [address] [phone] Chris Moreno APRN, C.N.P., M.S. [address] [place] [address] [phone] 06/03/2024 8:15 AM DRYING MACHINE OPERATOR PACKAGE YARNS Hospital Encounter Post Anesthesia Care Unit in [place], [place] [address] [place] [phone] Tahir Moore M.D. [address] [place] [phone] 06/03/2024 8:15 AM DRYING MACHINE OPERATOR PACKAGE YARNS - 06/03/2024 2:12 PM DRYING MACHINE OPERATOR PACKAGE YARNS Surgery RST ROMB MAIN OR [address] [place] [phone] Tahir Moore M.D. [address] [place] [address] [phone] C1-2 fusion 07/02/2024 11:00 AM DRYING MACHINE OPERATOR PACKAGE YARNS Procedure visit Division of Pain Medicine in [place], [place] [address] [place] [phone] Adam Barlow M.D. [address] [place] [phone] Scheduled Procedures Name Priority Associated Diagnoses Date/Ti me 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 06/03/2024 8:15 AM DRYING MACHINE OPERATOR PACKAGE YARNS documented as of this encounter Visit Diagnoses Not on filedocumented in this encounter Additional Health Concerns Assessment Noted Time PHQ-9 Depression Total Score: 2 08/03/19 24 9:15 AM CDT documented as of this encounter Care Teams Welcome Center Attendant Relationship Specialty Start Date End Date Elsewhere, Pcp PCP - General Internal Medicine 05/10/22 documented as of this encounter
--- OUTSIDE RECORDS SUMMARY | 2024-05-21 14:03 | XMS_ITS | Encounter Summary ---
Author Organization [facility] Address [address] [place] [address] Care Team Providers Care Assistant Professor Sculpture Name Role Phone Elsewhere, Pcp Primary Care Provider Unavailabl e Reason for Referral * Outpatient (Routine) - Closed Specialty Diagnoses / Procedures Referred By Contac t Referred To Contact Cardiovascular Surgery Lindsay Alex APRN, C.N.P., D.N.P. [address] [place] [address] Phone: tel: fax: [facility] Referral ID Status Reason Start Date Expiration Date Visits Re quested Visits Authorized [id number] Closed 12/07/2023 06/07/2025 1 1 * Specialty Diagnoses / Procedures Referred By Contac t Referred To Contact Diagnoses Seroma Initial Lindsay Alex APRN, C.N.P., D.N.P. [address] [place] [address] Phone: tel: fax: [facility] Referral ID Status Reason Start Date Expiration Date Visits Re quested Visits Authorized * Outpatient (Routine) - Closed Specialty Diagnoses / Procedures Referred By Contac t Referred To Contact Pharmacy Diagnoses Seroma Initial Lindsay Alex APRN, C.N.PHomero, D.N.P. [address] [place] [phone] Phone: tel: fax: [facility] Referral ID Status Reason Start Date Expiration Date Visits Re quested Visits Authorized [id number] Closed 12/07/2023 06/07/2025 1 1 * Outpatient (Routine) - Closed Specialty Diagnoses / Procedures Referred By Contac t Referred To Contact Diagnoses Seroma Initial Procedures ECG 12 Lead Lindsay Alex APRN, C.N.P., D.N.P. [address] [place] [phone] Phone: tel: fax: [facility] Referral ID Status Reason Start Date Expiration Date Visits Re quested Visits Authorized [id number] Closed 12/07/2023 12/06/2024 1 1 * Outpatient (Routine) - Closed Specialty Diagnoses / Procedures Referred By Contac t Referred To Contact Diagnoses Seroma Initial Procedures DX Chest AP or PA and Lateral 2 Views Lindsay Alex APRN, C.N.P., D.N.P. [address] [place] [phone] Phone: tel: fax: [facility] Referral ID Status Reason Start Date Expiration Date Visits Re quested Visits Authorized [id number] Closed 12/07/2023 12/06/2024 1 1 Encounter Details Date Type Department Care Team (Latest Contact Info) Description 12/07/2023 3:30 PM CDT Office Visit Department of Cardiovascular Surgery in [place], [place] [address] [place] [address] Lindsay Alex APRN, C.N.Lea., D.N.P. [address] [place] [phone] Seroma Initial (Primary Dx) Social History Tobacco Use Types Packs/Day Years Used Date Smoking Tobacco: Former Cigarettes 0 10/03/1966 - 03/05/1974 Smokeless Tobacco: Never Alcohol Use Standard Drinks/Week Comments Yes 10 (1 standard drink = 0.6 oz pu re alcohol) [facility] Utilities Answer Date Recorded In the past 12 months has [facility], [place], oil, or water [employer] threatened to shut off services in your [...] week 08/15/2022 How often do you attend [facility] or mandaeism services? More than 4 times per year 08/15/2022 Do you belong to any clubs o r organizations such as scientology groups, unions, fraternal or athletic groups, or [...] 08/15/2022 PHQ-2 Answer Date Recorded PHQ-2 Score 0 08/03/2023 [facility]at ional [facility] [...] Recor ded PHQ-9 Total Score (max 27) 2 08/02 Nutrition Answer Date Recorded On average, how many serving s of fruits and vegetables do you eat per day (serving size is equal to 1 cup or approximately the size of a tennis ball)? 3-5 12/01/2023 Dental Answer Date Recorded Dental: Regular Dentist Yes 08/16/19 23 Employment Answer Date Recorded Employment status Retired 12/01/2023 Housing Stability Answer Date Recorded What is your living situation today? I have a [facility] place to live 12/01/2023 Education Answer Date Recorded What is the highest level of school you have completed or the highest degree you have received? Bachelor's degree (e.g., BA, AB, BS) 08/15/2022 Comments No Sex and Gender Information Value Date Recorded Sex Assigned at Female 05/11/2022 7:48 AM RECEIVING ASSOCIATE STORE Legal Sex Female 9:30 PM RECEIVING ASSOCIATE STORE Gender Identity Female 05/11/2022 7:48 AM RECEIVING ASSOCIATE STORE Sexual Orientation Straight 05/11/2022 7: 48 AM RECEIVING ASSOCIATE STORE documented as of this encounter Patient Instructions * Patient Instructions* Lindsay Alex APRN, C.N.P., D.N.P. - 12/07/2023 3:30 PM CDT Surgery on 01/08 Aspirin - last dose will be the day prior to surgery. Last dose 12/31. Stop Xarelto (Rivaroxaban) 5 days prior to surgery. Last dose 01/02. Stop all NSAIDs, ibuprofen (Advil) or similar medications 3 days prior to surgery. Stop all vitamins, fish oil, and supplements 7 days prior to surgery. No other medication changes are recommended. If any new medications are initiated, medical changes arise, or your medical status changes, you are responsible for contacting the surgical team. documented in this encounter Progress Notes * Lindsay Alex APRN, C.N.P., D.N.P. - 12/07/2023 3:30 PM CDT Gladys Zamarripa : 1950 Visit Date: 12/07/23 The patient was seen in consultation with Dr. Aguayo. The patient has been scheduled for Right groinseroma debridement with Dr. Aguayo with a surgical date of 01/08. This date was chosen/approved by the surgeon. Intraoperative orders were placed. Rapid Recovery: Patient meets preoperative inclusion criteria for rapid recovery pathway. Case listing has been updated. 1. The required preoperative testing has been ordered to be completed prior to surgery. This includes: Labs: CBC, BMP, PT/INR, and Type & Screen (0-3) Tests: CXR and ECG Cardiac Catheterization: not indicated. Consultations: Pharmacy Medication Consult A Pre-operative appointment will be scheduled with the [facility] and RN Team prior to surgery. 2. Patient denies any allergies to penicillin and contrast dye. 3. The patient's most recent known hemoglobin is 10.3 g/dL on 12/06. The patient does not need an anemia clinic work up. Due to nature of surgery. 4. Does patient currently smoke? No 5. Patient does not require dental clearance prior to surgery 6. The following medication instructions were provided to the patient: Antiplatelet: Aspirin - stop 7 days prior to surgery. Last dose 12/31. Anticoagulation: Stop Xarelto (Rivaroxaban) 5 days prior to surgery. Last dose 01/02. Stop all NSAIDs, ibuprofen (Advil) or similar medications 3 days prior to surgery. Stop all vitamins, fish oil, and supplements 7 days prior to surgery. No other medication changes are recommended. If any new medications are initiated, medical changes arise, or your medical status changes, you are responsible for contacting the surgical team. The patient has been provided a complete patient appointment guide prior to leaving clinic today orwill view via patient portal. I personally spent 30 minutes in care of the patient today. Time includes both [id number]-vr-face [id number] patient care. Lindsay Alex APRN, C.N.P., D.N.P. documented in this encounter Plan of Treatment Upcoming Encounters Date Type Department Care Team (Latest Contact Info) Description 05/29/2024 12:15 PM RECE[facility]ING ASSOC[facility]ATE STORE Clinical Communication Virtual Review in [place], [place] [address] [place] [phone] 05/31/2024 11:00 AM RECEIVING ASSOCIATE STORE Appointment Department of Laboratory Medicine and Pathology, [facility], in [place], [place] [address] [place] [phone] Patricia Parker APRN, C.N.P., D.N.P. [address] [place] [phone] 05/31/2024 2:00 PM RECEIVING ASSOCIATE STORE Comprehensive Visit Preoperative Evaluation Center in [place], [place] [address] [place] [phone] Arianna Jeffries M.D. [address] [place] [phone] 05/31/2024 2:45 PM RECE[facility]ING [facility]OC[facility]ATE STORE Comprehensive Visit Preoperative Evaluation Center in [place], [place] [address] [place] [phone] Chris Moreno APRN, C.N.P., M.S. [address] [place] [phone] 06/03/2024 8:15 AM RECEIVING ASSOCIATE STORE Hospital Encounter Post Anesthesia Care Unit in [place] [id number] [place] [phone] Tahir Moore M.D. [address] [place] [phone] 06/03/2024 8:15 AM RECEIVING ASSOCIATE STORE - 06/03/2024 2:12 PM RECEIVING [facility]OC[facility]ATE STORE Surgery RST ROMB MAIN OR [facility] [address] [place] [phone] Tahir Moore M.D. [address] [place] [phone] C1-2 fusion 07/02/2024 11:00 AM RECEIVING ASSOCIATE STORE Procedure visit Division of Pain Medicine in [place], [place] [address] [place] [phone] Adam Barlow M.D. 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 06/03/2024 8:15 AM RECEIVING ASSOCIATE STORE Scheduled Referrals Name Type Priority Associated Diagnoses Order Schedule Pharmacy - Pre surgery medication history consult (clinic) Outpatient Referral Routine Seroma Initial 1 Occurrences starting 12/07/2023 until 03/08/2025 Cardiovascular Surgery - Education visit (clinic) Outpatient Referral Routine Seroma Initial 1 Occurrences starting 12/07/2023 until 03/08/2025 Cardiovascular Surgery office visit (clinic) Outpatient Referral Routine Expected: 01/08/2024, Expires: 03/08/2025 documented as of this encounter Results * ECG 12 Lead (01/08/2024 2:22 PM CDT) Ventricular Rate ECG/Min [address] Interval 214 ms MUSE QRSD Interval 80 ms MUSE QT Interval 412 ms MUSE QTC Interval 490 ms MUSE P [place] 71 degrees MUSE R [place] 37 degrees MUSE T Wave [place] 23 degrees MUSE 01/08/2024 2:22 PM CDT 01/08/2024 2:36 PM CDT Impressions MUSE - 01/08/2024 2:36 PM CDT Sinus rhythm with 1st degree A-V block Low anterior forces Prolonged QT When compared with ECG of 31-Oct-2023 17:25, QT has lengthened Reviewed by KEVIN Barakat Narrative Procedure Note Shad Parnell Jr., M.D. - 01/08/2024 IMPRESSION: Sinus rhythm with 1st degree A-V block Low anterior forces Prolonged QT When compared with ECG of 31-Oct-2023 17:25, QT has lengthened Reviewed by KEVIN Barakat Lindsay Alex APRN, C.N.P., D.N.P. ECG ORDERABL ES Final Result MUSE NA * DX Chest AP or PA and Lateral 2 Views (01/08/2024 1:32 PM CDT) Anatomical Region Laterality Modality Chest, Thoracic RST LOS, Tho racic ARZ LOS, Thoracic FLA LOS N/A Digital Radiography Impressions 01/08/2024 2:16 PM CDT Since 10/31/2023, there is mild increase in opacity in the right middle lobe suggestive of an infectious/inflammatory process. Pulmonary venous hypertension. Otherwise, no significant change. Mitral annuloplasty. Postoperative changes visualized lumbar spine. Narrative 01/08/2024 2:16 PM CDT EXAM: DX CHEST AP OR PA AND LATERAL 2 VIEWS Procedure Note Mary Gomes M.B., Ch.B. - 01/08/2024 EXAM: DX CHEST AP OR PA AND LATERAL 2 VIEWS IMPRESSION: Since 10/31/2023, there is mild increase in opacity in the right middlelobe suggestive of an infectious/inflammatory process. Pulmonary venoushypertension. Otherwise, no significant change. Mitral annuloplasty.Postoperative changes visualized lumbar spine. Lindsay Alex APRN, C.N.P., D.N.P. IMG DIAGNOST IC IMAGING PROCEDURES Final Result * Prothrombin Time (PT) (01/08/2024 1:05 PM CDT) Prothrombin Time, P 10.7 9.4 - 12.5 sec 01/08/2024 1:49 PM CDT DTL INR 1.0 0.9 - 1.1 01/08/2024 1:49 PM CDT DTL Comment: ----ADDITIONAL INFORMATION---- Standard intensity warfarin therapeutic range: 2.0 to 3.0 High intensity warfarin therapeutic range: 2.5 to 3.5 Blood (Blood, Venous) 01/08/2024 1:05 PM CDT 01/08/2024 1:22 PM CDT Lindsay Alex APRN, C.N.P., D.N.P. LAB BLOOD AD D-ON Final Result [facility] [address] [place] [address], [facility] DTL [facility] [address] [place] [address] * Basic Metabolic Panel (01/08/2024 1:05 PM CDT) Potassium, S 4.3 3.6 - 5.2 mmol/L 01/08/2024 1:57 PM CDT DTL Sodium, S 139 135 - 145 mmol/L 01/08/2024 1:57 PM CDT DTL Chloride, S 101 98 - 107 mmol/L 01/08/2024 1:57 PM CDT DTL Bicarbonate, S 28 22 - 29 mmol/L 01/08/2024 1:57 PM CDT DTL Anion Gap 10 7 - 15 01/08/2024 1:57 PM CDT DTL BUN (Blood Urea Nitrogen), S 12 6 - 21 mg/dL 01/08/2024 1:57 PM CDT DTL Creatinine 0.72 0.59 - 1.04 mg/dL 01/08/2024 1:57 PM CDT DTL Estimated GFR (eGFR) 88 >=60 mL/min/BSA 01/08/2024 1:57 PM CDT DTL Comment: Estimated GFR calculated using the 2020 CKD_EPI creatinine equation. Calcium, Total, S 9.6 8.8 - 10.2 mg/dL 01/08/2024 1:57 PM CDT DTL Glucose, S 89 70 - 140 mg/dL 01/08/2024 1:57 PM CDT DTL Blood (Blood, Venous) 01/08/2024 1:05 PM CDT 01/08/2024 1:32 PM CDT Lindsay Alex APRN, C.N.P., D.N.P. LAB BLOOD AD D-ON Final Result [facility] [address] [place] [address], [facility] DTL [facility] [address] [place] [address] * (ABNORMAL) CBC without Differential (01/08/2024 1:05 PM CDT) Pathologist [facility] Hemoglobin 10.5(L) 11.6 - 15.0 g/dL 01/08/2024 1:43 PM CDT DTL Hematocrit 32.8(L) 35.5 - 44.9 % 01/08/2024 1:43 PM CDT DTL Erythrocytes 3.19(L) 3.92 - 5.13 x10(12)/L 01/08/2024 1:43 PM CDT DTL MCV 102.8(H) 78.2 - 97.9 fL 01/08/2024 1:43 PM CDT DTL RBC Distrib Width 13.1 12.2 - 16.1 % 01/08/2024 1:43 PM CDT DTL Platelet Count 219 157 - 371 x10(9)/L 01/08/2024 1:43 PM CDT DTL Leukocytes 4.9 3.4 - 9.6 x10(9)/L 01/08/2024 1:43 PM CDT DTL Blood (Blood, Venous) 01/08/2024 1:05 PM CDT 01/08/2024 1:22 PM CDT Lindsay Alex APRN, C.N.P., D.N.P. LAB BLOOD AD D-ON Final Result [facility] [address] [place] [address], [facility] DTL [facility] [address] [place] [address] * Type and Screen (with Reflex Antibody ID) (01/08/2024 1:04 PM CDT) ABORh A Pos Not applicable 01/08/2024 1:50 PM CDT STRM Antibody Screen Negative Negative 01/08/2024 2:04 PM CDT STRM Type & Screen Expiration 01/11/2024 23:59 01/08/2024 1:50 PM CDT STRM Testing Location [place] DEFAULT 01/08/2024 1:31 PM CDT STRM Blood (Blood, Venous) 01/08/2024 1:04 PM CDT 01/08/2024 1:31 PM CDT Lindsay Alex APRN, C.N.P., D.N.P. LAB BLOOD BA NK TEST ORDERABLES Final Result Performing Organization Address City/State/[facility] Co de Phone Number [facility] [address] [place] [address], [facility] STRM [facility] [address] [place] [address] documented in this encounter Visit Diagnoses Diagnosis Seroma Initial- Primary Seroma Initial Stenosis Spinal documented in this encounter Additional Health Concerns Assessment Noted Time PHQ-9 Depression Total Score: 2 08/03/19 24 9:15 AM CDT documented as of this encounter Care Teams Assistant Professor Sculpture Relationship Specialty Start Date End Date Elsewhere, Pcp PCP - General Internal Medicine 05/10/22 documented as of this encounter
--- OUTSIDE RECORDS SUMMARY | 2024-05-21 14:03 | XMS_ITS | Encounter Summary ---
Author Organization [facility] Address [address] [place] [address] Care Team Providers Care Space Technologist Name Role Phone Elsewhere, Pcp Primary Care Provider Unavailabl e Reason for Visit * Outpatient (Routine) - Closed Specialty Diagnoses / Procedures Referred By Chanel segovia Referred To Contact Cardiovascular Surgery Dong Cancino M.D. [address] [place] [phone] Phone: tel: fax: Richard Aguayo M.D. [address] [place] [address] Phone: tel: fax: Referral ID Status Reason Start Date Expiration Date Visits Re quested Visits Authorized [id number] Closed 11/03/2023 05/04/2025 1 1 Encounter Details Date Type Department Care Team (Latest Contact Info) Description 12/07/2023 3:00 PM CDT Office Visit Department of Cardiovascular Surgery in [place], [place] [address] [place] [phone] Richard Aguayo M.D. [address] [place] [phone] Regurgitation Mitral (Primary Dx) Social History Tobacco Use Types Packs/Day Years Used Date Smoking Tobacco: Former Cigarettes 0 10/03/1966 - 03/05/1974 Smokeless Tobacco: Never Alcohol Use Standard Drinks/Week Comments Yes 10 (1 standard drink = 0.6 oz pu re alcohol) [facility] Utilities Answer Date Recorded In the past 12 months has e [employer], gas, oil, or water company threatened to [...] week 08/15/2022 How often do you attend [facility] or faith services? More than 4 times per year 08/15/2022 Do you belong to any clubs o r organizations such as buddhism groups, unions, fraternal or athletic groups, or [...] Answer Date Recorded PHQ-2 Score 0 08/03/2023 [facility] Occupat ional [facility] - Occupational Stress Questionnaire Answer Date [...] your living situation today? [facility] 12/01/2023 Education Answer Date Recorded What is the highest level of school you have completed or the highest degree you have received? Bachelor's degree (e.g., BA, AB, BS) 08/15/2022 Comments No Sex and Gender Information Value Date Recorded Sex Assigned at Female 05/11/2022 7:48 AM SENIOR MECHANICAL DESIGN ENGINEER Legal Sex Female 9:30 PM SENIOR MECHANICAL DESIGN ENGINEER Gender Identity Female 05/11/2022 7:48 AM SENIOR MECHANICAL DESIGN ENGINEER Sexual Orientation Straight 05/11/2022 7: 48 AM SENIOR MECHANICAL DESIGN ENGINEER documented as of this encounter Last Filed Vital Signs Vital Sign Reading Time Taken Comments Blood Pressure 130/84 12/07/2023 2:38 PM CDT Pulse 98 12/07/2023 2:38 PM CDT Temperature - - Respiratory Rate - - Oxygen Saturation - - Inhaled Oxygen Concentration - - Weight 59 kg (129 lb 15.4 oz) 12/07/2023 2:38 PM CDT Height 160.5 cm (5' 3.19) 12/07/2023 2:38 PM CD T Body Mass Index 22.88 12/07/2023 2:38 PM CDT documented in this encounter Progress Notes * Richard Aguayo M.D. - 12/07/2023 3:00 PM CDT The patient is a pleasant 73-year-old female who underwent robotic assisted mitral valve repair on 08/07/2023. She had an excellent result. Unfortunately, she has developed a seroma in the right groin. This is asymptomatic. There is no sign of infection. She has had it aspirated twice and it has recurred. She is undergoing hematology evaluation for pancytopenia which seems to be slowly improving.She has planning a trip in the next 2-3 weeks. If this continues to bother her I think it would be reasonable to consider surgical drainage of the seroma and re-closure of the groin. For assessment with hematology in the pancytopenia is ongoing. documented in this encounter Plan of Treatment Upcoming Encounters Date Type Department Care Team (Latest Contact Info) Description 05/29/2024 12:15 PM SENIOR MECHANICAL DESIGN ENGINEER Clinical Communication Virtual Review in [address] [phone] 05/31/2024 11:00 AM SENIOR MECHANICAL DESIGN ENGINEER Appointment Department of Laboratory Medicine and Pathology, [facility], in [place], [place] [address] [place] [phone] Patricia Parker APRN, C.N.P., D.N.P. [address] [place] [phone] 05/31/2024 2:00 PM SENIOR MECHANICAL DESIGN ENGINEER Comprehensive Visit Preoperative Evaluation Center in [place], [place] [address] [place] [phone] Arianna Jeffries M.D. [address] [place] [phone] 05/31/2024 2:45 PM SENIOR MECHANICAL DESIGN ENGINEER Comprehensive Visit Preoperative Evaluation Center in [place], [place] [address] [place] [phone] Chris Moreno, JOHNSON, C.N.P., M.S. [address] [place] [phone] 06/03/2024 8:15 AM SENIOR MECHANICAL DESIGN ENGINEER Hospital Encounter Post Anesthesia Care Unit in [place] [id number] [place] [phone] Tahir Moore M.D. [address] [place] [phone] 06/03/2024 8:15 AM SENIOR MECHANICAL DESIGN ENGINEER - 06/03/2024 2:12 PM SENIOR MECHANICAL DESIGN ENGINEER Surgery RST ROMB MAIN OR [address] [place] [phone] Tahir Moore M.D. [address] [place] [phone] C1-2 fusion 07/02/2024 11:00 AM SENIOR MECHANICAL DESIGN ENGINEER Procedure visit Division of Pain Medicine in [place], [place] [address] [place] [phone] Adam Barlow M.D. 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
--- OUTSIDE RECORDS SUMMARY | 2024-05-21 14:03 | XMS_ITS | Encounter Summary ---
Author Organization [facility] Address 200 [place] [address] Care Team Providers Care Belt Puncher Name Role Phone Elsewhere, Pcp Primary Care Provider Unavailabl e Reason for Referral * Outpatient (Routine) - Closed Specialty Diagnoses / Procedures Referred By Conthcad t Referred To Contact Diagnoses Seroma Initial Procedures DX Chest AP or PA and Lateral 2 Views Lindsay Alex APRN, C.N.P., D.N.P. 200 [place] [address] Phone: tel: fax: [facility] Referral ID Status Reason Start Date Expiration Date Visits Re quested Visits Authorized [id number] Closed 12/07/2023 12/06/2024 1 1 Reason for Visit * Outpatient (Routine) - Closed Specialty Diagnoses / Procedures Referred By Contac t Referred To Contact Diagnoses Seroma Initial Procedures DX Chest AP or PA and Lateral 2 Views Lindsay Alex APRN, C.N.P., D.N.P. 200 [place] [address] Phone: tel: fax: [facility] Referral ID Status Reason Start Date Expiration Date Visits Re quested Visits Authorized [id number] Closed 12/07/2023 12/06/2024 1 1 Encounter Details Date Type Department Care Team (Latest Contact Info) Description 01/08/2024 1:07 PM CDT - 01/08/2024 11:59 PM CDT Hospital Encounter [facility] in [place], [place] [address] [place] [address] Lindsay Alex, JOHNSON, C.N.P., D.N.P. [address] [place] [address] Seroma Initial Discharge Disposition: Home or Self Care Social History Tobacco Use Types Packs/Day Years Used Date Smoking Tobacco: Former Cigarettes 0 10/03/1966 - 03/05/1974 Smokeless Tobacco: Never Alcohol Use Standard Drinks/Week Comments Yes 10 (1 standard drink = 0.6 oz pu re alcohol) [facility] Utilities Answer Date Recorded In the past 12 months has [facility] [employer], gas, oil, or water [employer] threatened to shut off services in your [...] often do you attend chur ch or caodaism services? More than 4 times per year 08/15/2022 Do you belong to any clubs o r organizations such as baptism groups, unions, fraternal or athletic groups, or [...] Answer Date Recorded PHQ-2 Score 2 01/04/2024 [facility] - Occupational [...] your living situation today? I have a [facility] place to live 12/01/2023 Education Answer Date Recorded What is the highest level of school you have completed or the highest degree you have received? Bachelor's degree (e.g., BA, AB, BS) 08/15/2022 Comments No Sex and Gender Information Value Date Recorded Sex Assigned at Female 05/11/2022 7:48 AM ACCOUNTING CLERK Legal Sex Female 9:30 PM ACCOUNTING CLERK Gender Identity Female 05/11/2022 7:48 AM ACCOUNTING CLERK Sexual Orientation Straight 05/11/2022 7: 48 AM ACCOUNTING CLERK documented as of this encounter Medications at [...] week after surgery 60 tablet 1 09/07/2022 mupirocin (Bactroban) 2 % ointment Apply pea sized amount to each nostril the night before and morning of surgery. 22 g 01/08/2024 01/09/20 24 omega 3-glj-chi-fish oil (fish oil) 1,200 (144-216) mg capsule Take 1 capsule by mouth daily. 04/05/20 24 documented as of this encounter Plan of Treatment Upcoming Encounters Date Type Department Care Team (Latest Contact Info) Description 05/29/2024 12:15 PM ACCOUNTING CLERK Clinical Communication Virtual Review in [address] [phone] 05/31/2024 11:00 AM ACCOUNTING CLERK Appointment Department of Laboratory Medicine and Pathology, [facility], in [place], [place] [address] [place] [phone] Patricia Parker APRN, C.N.P., D.N.P. [address] [place] [phone] 05/31/2024 2:00 PM ACCOUNTING CLERK Comprehensive Visit Preoperative Evaluation Center in [place], [place] [address] [place] [address] [phone] Arianna Jeffries M.D. [address] [place] [phone] 05/31/2024 2:45 PM ACCOUNTING CLERK Comprehensive Visit Preoperative Evaluation Center in [place], [place] [address] [place] [phone] Chris Moreno, JOHNSON, C.N.P., M.S. [address] [place] [address] [phone] 06/03/2024 8:15 AM ACCOUNTING CLERK Hospital Encounter Post Anesthesia Care Unit in [place] [id number] [address] [phone] Tahir Moore M.D. [address] [place] [phone] 06/03/2024 8:15 AM ACCOUNTING CLERK - 06/03/2024 2:12 PM ACCOUNTING CLERK Surgery [facility]ST ROMB MAIN OR [facility] [address] [place] [phone] Tahir Moore M.D. [address] [place] [phone] C1-2 fusion 07/02/2024 11:00 AM ACCOUNTING CLERK Procedure visit Division of Pain Medicine in [place], [place] [address] [place] [phone] Adam Barlow M.D. 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 06/03/2024 8:15 AM ACCOUNTING CLERK documented as of this encounter Procedures Procedure Name Priority Date/Time Associated Diagnosis Comments DX CHEST AP OR PA AND LATERAL 2 VIEWS RAD - Routine (most inpatients and all outpatients) 01/08/2024 1:32 PM CDT Seroma Initial documented in this encounter Results * DX Chest AP or PA and [...] IMG DIAGNOST IC IMAGING PROCEDURES Final Result documented in this encounter Visit Diagnoses Diagnosis Seroma Initial Stenosis Spinal documented in this encounter Additional Health Concerns Assessment Noted Time PHQ-9 Depression Total Score: 5 01/04/20 24 3:57 AM CDT documented as of this encounter Care Teams Belt Puncher Relationship Specialty Start Date End Date Elsewhere, Pcp PCP - General Internal Medicine 05/10/22 documented as of this encounter
--- OUTSIDE RECORDS SUMMARY | 2024-05-21 14:03 | XMS_ITS | Encounter Summary ---
Author Organization [facility] Address [address] [place] [address] Care Team Providers Care Advertising Dispatch Clerks Supervisor Name Role Phone Elsewhere, Pcp Primary Care Provider Unavailabl e Reason for Referral * Outpatient (Routine) - Closed Specialty Diagnoses / Procedures Referred By Chanel segovia Referred To Contact Cardiovascular Surgery Dong Cancino M.D. [address] [place] [phone] Phone: tel: fax: Richard Aguayo M.D. [address] [place] [phone] Phone: tel: fax: Referral ID Status Reason Start Date Expiration Date Visits Re quested Visits Authorized [id number] Closed 11/03/2023 05/04/2025 1 1 Encounter Details Date Type Department Care Team (Late st Contact Info) Description 11/03/2023 Clinical Communication [facility] [address] [place] [phone] Dong Cancino M.D. [address] [place] [phone] Social History Tobacco Use Types Packs/Day Years Used Date Smoking Tobacco: Former Cigarettes 0 10/03/1966 - 03/05/1974 Smokeless Tobacco: Never Alcohol Use Standard Drinks/Week Comments Yes 10 (1 standard drink = 0.6 oz pu re alcohol) [facility] Utilities Answer Date Recorded In the past 12 months has e [employer], gas, oil, or water [employer] threatened to shut off services in your home? No 10/31/2023 Humiliation, Afraid, Rape, and Kick questionnair e [...] week 08/15/2022 How often do you attend [facility] or sikh services? More than 4 times per year 08/15/2022 Do you belong to any clubs o r organizations such as orthodoxy groups, unions, fraternal or athletic groups, or [...] Answer Date Recorded PHQ-2 Score 0 08/03/2023 [facility] - Occupational Stress Questionnaire Answer Date [...] to strenuous exercise (like a brisk walk)? 0 days 08/15/2022 On average, how many minutes do you engage in exercise at this level? 0 min 08/15/2022 Hunger Vital Sign Answer Date Recorded Within the past 12 months, y ou worried that your food would run out before you got the money to buy more. Never true 10/31/19 24 Within the past 12 months, t he food you bought just didn't last and you didn't have money to get more. Never true 10/31/2023 PRAPARE - Transportation Answer Date Re corded In the past 12 months, has l ack of transportation kept you from medical appointments or from getting medications? No 10/20 In the past 12 months, has l ack of transportation kept you from meetings, work, or from getting things needed for daily living? No 10/31/2023 Depression Answer Date Recor ded PHQ-9 Total Score (max 27) 2 08/02 Nutrition Answer Date Recorded On average, how many serving s of fruits and vegetables do you eat per day (serving size is equal to 1 cup or approximately the size of a tennis ball)? 4-5 08/15/2022 Dental Answer Date Recorded Dental: Regular Dentist Yes 08/16/19 Employment Answer Date Recorded Employment status Retired 08/15/2022 Housing Stability Answer Date Recorded What is your living situation today? I have a [facility] place to live 10/31/2023 Education Answer Date Recorded What is the highest level of school you have completed or the highest degree you have received? Bachelor's degree (e.g., BA, AB, BS) 08/15/2022 Comments No Sex and Gender Information Value Date Recorded Sex Assigned at Female 05/11/2022 7:48 AM RETORT OR CONDENSER PRESS OPERATOR Legal Sex Female 9:30 PM RETORT OR CONDENSER PRESS OPERATOR Gender Identity Female 05/11/2022 7:48 AM RETORT OR CONDENSER PRESS OPERATOR Sexual Orientation Straight 05/11/2022 7: 48 AM RETORT OR CONDENSER PRESS OPERATOR documented as of this encounter Plan of Treatment Upcoming Encounters Date Type Department Care Team (Latest Contact Info) Description 05/29/2024 12:15 PM RETORT OR CONDENSER PRESS OPERATOR Clinical Communication Virtual Review in [place], [place] 200 [place] [phone] 05/31/2024 11:00 AM RETORT OR CONDENSER PRESS OPERATOR Appointment Department of Laboratory Medicine and Pathology, [facility], in [place], [place] [address] [place] [phone] Patricia Parker APRN, C.N.P., D.N.P. [address] [place] [phone] 05/31/2024 2:00 PM RETORT OR CONDENSER PRESS OPERATOR Comprehensive Visit Preoperative Evaluation Center in [place], [place] [address] [place] [phone] Arianna Jeffries M.D. [address] [place] [phone] 05/31/2024 2:45 PM RETORT OR CONDENSER PRESS OPERATOR Comprehensive Visit Preoperative Evaluation Center in [place], [place] [address] [place] [phone] Chris Moreno APRN, C.N.P., M.S. [address] [place] [phone] 06/03/2024 8:15 AM RETORT OR CONDENSER PRESS OPERATOR Hospital Encounter Post Anesthesia Care Unit in [place], [place] [address] [place] [phone] Tahir Moore M.D. [address] [place] [phone] 06/03/2024 8:15 AM RETORT OR CONDENSER PRESS OPERATOR - 06/03/2024 2:12 PM RETORT OR CONDENSER PRESS OPERATOR Surgery RST ROMB MAIN OR [address] [place] [phone] Tahir Moore M.D. [address] [place] [phone] C1-2 fusion 07/02/2024 11:00 AM RETORT OR CONDENSER PRESS OPERATOR Procedure visit Division of Pain Medicine in [place], [place] [address] [place] [phone] Adam Barlow M.D. [address] [place] [phone] Scheduled Procedures Name Priority Associated Diagnoses Date/Ti me 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 06/03/2024 8:15 AM RETORT OR CONDENSER PRESS OPERATOR Scheduled Referrals Name Type Priority Associated Diagnoses Orde r Schedule Return to provider in another specialty Outpatient Referral Routine Expected: 11/03/2023, Expires: 02/02/2025 documented as of this encounter Visit Diagnoses Diagnosis Regurgitation Mitral- Primary Cardiac Surgery Status Post Stenosis Spinal documented in this encounter Additional Health Concerns Assessment Noted Time PHQ-9 Depression Total Score: 2 08/03/19 24 9:15 AM CDT documented as of this encounter Care Teams Advertising Dispatch Clerks Supervisor Relationship Specialty Start Date End Date Elsewhere, Pcp PCP - General Internal Medicine 05/10/22 documented as of this encounter
--- OUTSIDE RECORDS SUMMARY | 2024-05-21 14:03 | XMS_ITS | Encounter Summary ---
Author Organization [facility] Address [address] [place] [address] Care Team Providers Care Completions Manager Name Role Phone Elsewhere, Pcp Primary Care Provider Unavailabl e Reason for Referral * Outpatient (Urgent) - Closed Specialty Diagnoses / Procedures Referred By Chanel t Referred To Contact Hematology Diagnoses Pancytopenia (HCC) Khang Smith M.D., Ph.D., M.D., Ph.D. [address] [place] [phone] Phone: tel: fax: [facility] Referral ID Status Reason Start Date Expiration Date Visits Re quested Visits Authorized [id number] Closed 11/03/2023 05/04/2025 1 1 Encounter Details Date Type Department Care Team (Late st Contact Info) Description 11/03/2023 Orders Only Division of Hematology in [place], [place] [address] [place] [phone] Khang Smith M.D., Ph.D., M.D., Ph.D. [address] [place] [address] [phone] Pancytopenia (HCC) (Primary Dx) Social History Tobacco Use Types Packs/Day Years Used Date Smoking Tobacco: Former Cigarettes 0 10/03/1966 - 03/05/1974 Smokeless Tobacco: Never Alcohol Use Standard Drinks/Week Comments Yes 10 (1 standard drink = 0.6 oz pu re alcohol) [facility] Utilities Answer Date Recorded In the past 12 months has e [employer], [employer], oil, or water [employer] threatened to shut off services in your [...] How often do you attend chur or sikh services? More than 4 times per year 08/15/2022 Do you belong to any clubs o r organizations such as zoroastrianism groups, unions, fraternal or athletic groups, or [...] Answer Date Recorded PHQ-2 Score 0 08/03/2023 [facility] ional [facility] [...] have a [facility] [place] place to live 10/31/2023 Education Answer Date Recorded What is the highest level of school you have completed or the highest degree you have received? Bachelor's degree (e.g., BA, AB, BS) 08/15/2022 Comments No Sex and Gender Information Value Date Recorded Sex Assigned at Female 05/11/2022 7:48 AM DURABLE MEDICAL EQUIPMENT TECHNICIAN Legal Sex Female 9:30 PM DURABLE MEDICAL EQUIPMENT TECHNICIAN Gender Identity Female 05/11/2022 7:48 AM DURABLE MEDICAL EQUIPMENT TECHNICIAN Sexual Orientation Straight 05/11/2022 7: 48 AM DURABLE MEDICAL EQUIPMENT TECHNICIAN documented as of this encounter Plan of Treatment Upcoming Encounters Date Type Department Care Team (Latest Contact Info) Description 05/29/2024 12:15 PM DURABLE MEDICAL EQUIPMENT TECHNICIAN Clinical Communication Virtual Review in [place], [place] 200 [place] [phone] 05/31/2024 11:00 AM DURABLE MEDICAL EQUIPMENT TECHNICIAN Appointment Department of Laboratory Medicine and Pathology, [facility], in [place], [place] [address] [place] [phone] Patricia Parker APRN, C.N.P., D.N.P. [address] [place] [phone] 05/31/2024 2:00 PM DURABLE MEDICAL EQUIPMENT TECHNICIAN Comprehensive Visit Preoperative Evaluation Center in [place], [place] [address] [place] [phone] Arianna Jeffries M.D. [address] [place] [phone] 05/31/2024 2:45 PM DURABLE MEDICAL EQUIPMENT TECHNICIAN Comprehensive Visit Preoperative Evaluation Center in [place], [place] [address] [place] [phone] Chris Moreno APRN, C.N.P., M.S. [address] [place] [phone] 06/03/2024 8:15 AM DURABLE MEDICAL EQUIPMENT TECHNICIAN Hospital Encounter Post Anesthesia Care Unit in [place], [place] [address] [place] [phone] Tahir Moore M.D. [address] [place] [phone] 06/03/2024 8:15 AM DURABLE MEDICAL EQUIPMENT TECHNICIAN - 06/03/2024 2:12 PM DURABLE MEDICAL EQUIPMENT TECHNICIAN Surgery RST ROMB MAIN OR [address] [place] [address] [phone] Tahir Moore M.D. [address] [place] [phone] C1-2 fusion 07/02/2024 11:00 AM DURABLE MEDICAL EQUIPMENT TECHNICIAN Procedure visit Division of Pain Medicine in [place], [place] [address] [place] [phone] Adam Barlow M.D. [address] [place] [phone] Scheduled Procedures Name Priority Associated Diagnoses Date/Ti me 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 06/03/2024 8:15 AM DURABLE MEDICAL EQUIPMENT TECHNICIAN Scheduled Referrals Name Type Priority Associated Diagnoses Order Schedule Hematology - General consult (clinic) Outpatient Referral Routine Pancytopenia (HCC) Expected: 11/03/2023, Expires: 02/02/2025 documented as of this encounter Results * (ABNORMAL) Ferritin (12/07/2023 2:16 PM CDT) Ferritin, S 406(H) 11 - 328 mcg/L 12/07/2023 3:19 PM CDT DTL Blood (Blood, Venous) 12/07/2023 2:16 PM CDT 12/07/2023 2:46 PM CDT us Khang Smith M.D., Ph.D., M.Flora., Ph.D. LAB BLOOD ADD-ON Final Result [facility] 200 [place] [address], [facility] 200 [place] [address] * Reticulocytes (12/07/2023 2:16 PM CDT) Reticulocytes, B 2.27 0.60 - 2.71 % 12/07/2023 2:48 PM CDT DTL Absolute Reticulocyte 65.8 30.4 - 110.9 x10(9)/L 12/07/2023 2:48 PM CDT DTL Blood (Blood, Venous) 12/07/2023 2:16 PM CDT 12/07/2023 2:38 PM CDT us Khang Smith M.D., Ph.D., M.D., Ph.D. LAB BLOOD ADD-ON Final Result [facility] 200 [place] [address], [facility] 200 [place] [address] * Morphology Eval (special smear) (12/07/2023 2:16 PM CDT) Pathologist [facility] Neutrophilic Segs and Bands 59 50 - 75 % 12/07/2023 3:37 PM CDT [facility] Lymphocytes 29 18 - 42 % 12/07/2023 3:37 PM CDT [facility] Monocytes 11 2 - 11 % 12/07/2023 3:37 PM CDT [facility] Eosinophils 1 1 - 3 % 12/07/2023 3:37 PM CDT [facility] Manual Absolute Neutrophil Count 2.18 1.56 - 6.45 x10(9)/L 12/07/2023 3:37 PM CDT [facility] Comment: ----ADDITIONAL INFORMATION---- The manual absolute neutrophil count is derived from a manual differential count and therefore is not exactly comparable to the automated absolute neutrophil count. Interpretation See Comment 3:37 PM CDT [facility] Comment: Macrocytic red blood cells are present: consider vitamin B12 or folate deficiency, liver disease, drug effect, etc. Peripheral blood smear reviewed: no other diagnostic abnormalities are seen. Reviewed by: Tech 12/07/2023 3:37 PM CDT [facility] Blood (Blood, Venous) 12/07/2023 2:16 PM CDT 12/07/2023 2:38 PM CDT us Khang Smith M.D., Ph.D., MTessa., Ph.D. LAB BLOOD ADD-ON Final Result [facility] [address] [place] [address], [facility] [address] [place] [address] * (ABNORMAL) CBC with Differential, Blood (12/07/2023 2:16 PM CDT) Hemoglobin 10.3(L) 11.6 - 15.0 g/dL 12/07/2023 2:48 PM CDT DTL Hematocrit 30.6(L) 35.5 - 44.9 % 12/07/2023 2:48 PM CDT DTL Erythrocytes 2.90(L) 3.92 - 5.13 x10(12)/L 12/07/2023 2:48 PM CDT DTL MCV 105.5(H) 78.2 - 97.9 fL 12/07/2023 2:48 PM CDT DTL RBC Distrib Width 15.2 12.2 - 16.1 % 12/07/2023 2:48 PM CDT DTL Platelet Count 226 157 - 371 x10(9)/L 12/07/2023 2:48 PM CDT DTL Leukocytes 3.7 3.4 - 9.6 x10(9)/L 12/07/2023 2:48 PM CDT DTL Neutrophils 1.98 1.56 - 6.45 x10(9)/L 12/07/2023 2:47 PM CDT [facility] Lymphocytes 1.19 0.95 - 3.07 x10(9)/L 12/07/2023 2:48 PM CDT DTL Monocytes 0.47 0.26 - 0.81 x10(9)/L 12/07/2023 2:48 PM CDT DTL Eosinophils 0.04 0.03 - 0.48 x10(9)/L 12/07/2023 2:48 PM CDT DTL Basophils <0.03 0.01 - 0.08 x10(9)/L 12/07/2023 2:48 PM CDT DTL Blood (Blood, Venous) 12/07/2023 2:16 PM CDT 12/07/2023 2:38 PM CDT us Khang Smith M.D., Ph.D., M.Flora., Ph.D. LAB BLOOD ADD-ON Final Result [facility] 200 [place] [address], [facility] DTL [facility] [address] [place] [address] [facility] 200 [place] [address] documented in this encounter Visit Diagnoses Diagnosis Pancytopenia (HCC)- Primary Stenosis Spinal documented in this encounter Additional Health Concerns Assessment Noted Time PHQ-9 Depression Total Score: 2 08/03/19 24 9:15 AM CDT documented as of this encounter Care Teams Completions Manager Relationship Specialty Start Date End Date Elsewhere, Pcp PCP - General Internal Medicine 05/10/22 documented as of this encounter
--- OUTSIDE RECORDS SUMMARY | 2024-05-21 14:03 | XMS_ITS | Encounter Summary ---
Author Organization [facility] Address [address] [place] [phone] Care Team Providers Care Data Warehousing Specialist Name Role Phone Elsewhere, Pcp Primary Care Provider Unavailabl e Reason for Visit * Outpatient (Routine) - Closed Specialty Diagnoses / Procedures Referred By Chanel t Referred To Contact Pharmacy Diagnoses Seroma Initial Lindsay Alex APRN, C.N.P., D.N.P. [address] [place] [phone] Phone: tel: fax: [facility] Referral ID Status Reason Start Date Expiration Date Visits Re quested Visits Authorized [id number] Closed 12/07/2023 06/07/2025 1 1 Encounter Details Date Type Department Care Team (Late st Contact Info) Description 01/05/2024 12:20 PM CDT Virtual Visit Department of Pharmacy in [place], [place] [address] [place] [phone] Lindsay Alex APRN, C.N.P., D.N.P. [address] [place] [phone] Nisreen Churchill, Pharm.D., R.Ph., [facility] [address] [place] [phone] Seroma Initial Social History Tobacco Use Types Packs/Day Years Used Date Smoking Tobacco: Former Cigarettes 0 10/03/1966 - 03/05/1974 Smokeless Tobacco: Never Alcohol Use Standard Drinks/Week Comments Yes 10 (1 standard drink = 0.6 oz pu re alcohol) [facility] Utilities Answer Date Recorded In the past 12 months has e [employer], gas, oil, or water [employer] threatened to shut off services in your [...] 08/15/2022 How often do you attend [facility] or zoroastrian services? More than 4 times per year [...] Answer Date Recorded PHQ-2 Score 2 01/04/2024 [facility] [place] [facility] of Occupat ional [facility] - Occupational Stress Questionnaire Answer [...] living situation today? I have a [facility] place to live 12/01/2023 Education Answer Date Recorded What is the highest level of school you have completed or the highest degree you have received? Bachelor's degree (e.g., BA, AB, BS) 08/15/2022 Comments No Sex and Gender Information Value Date Recorded Sex Assigned at Female 05/11/2022 7:48 AM CASING TRIMMER Legal Sex Female 9:30 PM CASING TRIMMER Gender Identity Female 05/11/2022 7:48 AM CASING TRIMMER Sexual Orientation Straight 05/11/2022 7: 48 AM CASING TRIMMER documented as of this encounter Progress Notes * Nisreen Churchill, D., R.Ph., [facility] - 01/05/2024 12:20 PM CDT Images from the original note were not included. Patient was contacted via telephone to confirm current medication list. The medication list below was updated by a pharmacist and reflects the patient's medication list on the date of this note. Last dose dates/times that will need to be updated when patient is admitted for surgery: carvedilol Medications being held prior to surgery: aspirin, last dose taken 12/31 warfarin, last dose taken 01/02 Modified Medications Sig acetaminophen (TYLENOL) 500 mg tablet Take 1,000 mg by mouth every 8 (eight) hours. allopurinoL (ZYLOPRIM) 300 mg tablet Take 150 mg by mouth daily. aspirin 81 mg chewable tablet Chew 1 tablet (81 mg total) daily. atorvastatin (LIPITOR) 20 mg tablet Take [...] for14 days. Continuation per discretion of PCP.. Patient taking differently: Takes 1 tablet as needed for swelling, if swelling remains after 1 tablet will sometimes take an additional tablet. gabapentin (NEURONTIN) 300 mg capsule Take 300 mg by mouth 4 (four) times a day. lisinopriL (PRINIVIL,ZESTRIL) 5 mg tablet Take 1 tablet (5 mg total) by mouth 2 (two) times a day. magnesium oxide (MAG-OX) 400 mg (241.3 mg magnesium) tablet Take 1 tablet by mouth daily. omega 3-vtn-pnr-fish oil (fish oil) 1,200 (144-216) mg capsule Take 1 capsule by mouth daily. omeprazole (PriLOSEC) [address] capsule Take 20 mg by mouth every morning before breakfast. pediatric cjoezyzakgww-cnjr-jhttlvez (FLINTSTONES COMPLETE) chewable tablet Chew 1 tablet daily. potassium chloride (K-TAB) 20 mEq CR tablet Take 20 mEq by mouth daily as needed (takes when takingfurosemide). rivaroxaban (XARELTO) 20 mg tablet Take 1 tablet (20 mg total) by mouth daily. Okay to start retaking 1 week after surgery Patient taking differently: Take 20 mg by mouth daily with evening meal. Okay to start retaking 1 week after surgery Nisreen Churchill Pharm.D., R.Ph., BCPS documented in this encounter Plan of Treatment Upcoming Encounters Date Type Department Care Team (Latest Contact Info) Description 05/29/2024 12:15 PM CASING TRIMMER Clinical Communication Virtual Review in [place], [place] 200 [place] [phone] 05/31/2024 11:00 AM CASING TRIMMER Appointment Department of Laboratory Medicine and Pathology, [facility], in [place], [place] [address] [place] [phone] Patricia Parker APRN, C.N.P., D.N.P. [address] [place] [phone] 05/31/2024 2:00 PM CASING TRIMMER Comprehensive Visit Preoperative Evaluation Center in [place], [place] [address] [place] [phone] Arianna Jeffries M.D. [address] [place] [phone] 05/31/2024 2:45 PM CASING TRIMMER Comprehensive Visit Preoperative Evaluation Center in [place], [place] [address] [place] [phone] Chris Moreno APRN, C.N.P., M.S. [address] [place] [phone] 06/03/2024 8:15 AM CASING TRIMMER Hospital Encounter Post Anesthesia Care Unit in [place] [id number] [place] [phone] Tahir Moore M.D. [address] [place] [phone] 06/03/2024 8:15 AM CASING TRIMMER - 06/03/2024 2:12 PM CASING TRIMMER Surgery [facility] MAIN OR [address] [place] [phone] Tahir Moore M.D. [address] [place] [address] [phone] C1-2 fusion 07/02/2024 11:00 AM CASING TRIMMER Procedure visit Division of Pain Medicine in [place], [place] [address] [place] [phone] Adam Barlow M.D. [address] [place] [phone] Scheduled Procedures Name Priority Associated Diagnoses Date/Ti me 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 06/03/2024 8:15 AM CASING TRIMMER documented as of this encounter Visit Diagnoses Diagnosis Seroma Initial Stenosis Spinal documented in this encounter Additional Health Concerns Assessment Noted Time PHQ-9 Depression Total Score: 5 01/04/20 24 3:57 AM CDT documented as of this encounter Care Teams Data Warehousing Specialist Relationship Specialty Start Date End Date Elsewhere, Pcp PCP - General Internal Medicine 05/10/22 documented as of this encounter
--- OUTSIDE RECORDS SUMMARY | 2024-05-21 14:03 | XMS_ITS | Encounter Summary ---
Author Organization [facility] Address [address] [place] [address] Care Team Providers Care Trimmer Press Clippings Name Role Phone Elsewhere, Pcp Primary Care Provider Unavailabl e Reason for Visit * Outpatient (Urgent) - Closed Specialty Diagnoses / Procedures Referred By Chanel t Referred To Contact Hematology Diagnoses Pancytopenia (HCC) Khang Smith M.D., Ph.D., M.D., Ph.D. [address] [place] [phone] Phone: tel: fax: [facility] Referral ID Status Reason Start Date Expiration Date Visits Re quested Visits Authorized [id number] Closed 11/03/2023 05/04/2025 1 1 Encounter Details Date Type Department Care Team (Late st Contact Info) Description 12/13/2023 3:30 PM CDT Telemedicine Division of Hematology in [place], [place] [address] [place] [phone] Dian Menjivar M.D., M.B.A. [address] [place] [phone] Pancytopenia (HCC) Social History Tobacco Use Types Packs/Day Years Used Date Smoking Tobacco: Former Cigarettes 0 10/03/1966 - 03/05/1974 Smokeless Tobacco: Never Alcohol Use Standard Drinks/Week Comments Yes 10 (1 standard drink = 0.6 oz pu re alcohol) [facility] Utilities Answer Date Recorded In the past 12 months has th e [employer], gas, oil, or water company threatened to [...] How often do you attend chur or hinduism services? More than 4 times per year 08/15/2022 Do you belong to any clubs o r organizations such as mormon groups, unions, fraternal or athletic groups, or [...] Answer Date Recorded PHQ-2 Score 0 08/03/2023 [facility] of Occupat ional Health - Occupational Stress [...] your living situation today? I have a [facility] place to live 12/01/2023 Education Answer Date Recorded What is the highest level of school you have completed or the highest degree you have received? Bachelor's degree (e.g., BA, AB, BS) 08/15/2022 Comments No Sex and Gender Information Value Date Recorded Sex Assigned at Female 05/11/2022 7:48 AM SHAPER SETTER Legal Sex Female 9:30 PM SHAPER SETTER Gender Identity Female 05/11/2022 7:48 AM SHAPER SETTER Sexual Orientation Straight 05/11/2022 7: 48 AM SHAPER SETTER documented as of this encounter Progress Notes * Dian Menjivar M.D., M.B.A. - 12/13/2023 3:30 PM CDT SUBJECTIVE CHIEF COMPLAINT / REASON FOR VISIT Gladys Zamarripa is a 73 y.o. female who presents for evaluation of pancytopenia HISTORY OF PRESENT ILLNESS Ms. Zamarripa is a pleasant 73-year-old female who was admitted to the hospital on October 31, 2023 for abnormal lab findings and petechial rash bilaterally in the lower extremities. On presentation in the emergency room, hemoglobin 7.8, platelets were 70,000, and white blood cell count was 2.1. Due to concerns for aplastic anemia, bone marrow biopsy was done on November 01, 2023. Bone marrow biopsy revealed a normal cellular marrow with morphologically unremarkable trilineage hematopoiesis. There was mild erythroid hyperplasia and mild granulocytic hypoplasia. However, the overall cellularityof 20-30% was consistent for age. Differential diagnosis was quite broad including drug effect, toxic effect liver disease, nutritional deficiencies, etc. While hospitalized, GI pathogen panel was positive for Campylobacter. She was then treated with azithromycin. Of note, she was also low and copper, zinc, and selenium and was started on multivitamins. Ms. Zamarripa was dismissed from the hospitalon November 03, 2023. Ms. Zamarripa presents today for further follow-up. Overall she is doing well. Blood work performed on December 07, 2023 shows hemoglobin of 10.3, improved from 8.9 on dismissal. MCV is improved to 105.5, down from 108. Platelets are normal at 226, improved from 73 on dismissal. White blood cell count is3.7, improved from 2.6 on dismissal. Absolute reticulocyte count is normal at 65.8. Ferritin is elevated at 406. Overall, Ms. Zamarripa feels like she is recovering nicely. The following portions of the patient's history were reviewed and updated as appropriate: allergies, current medications, family history, medical history, social history, surgical history, and problem list. OBJECTIVE PHYSICAL EXAM Physical Exam ASSESSMENT / PLAN #1 Pancytopenia (HCC) Ms. Zamarripa has improvement in her blood counts since dismissal from the hospital. The etiology of her pancytopenia is not entirely clear, however 1 wonders if the Campylobacter was the cause. The differentials are quite broad, and as such, no specific etiology has been determined. However, I am reassured that her CBC is improving. I recommended continued observation with another CBC in approximately 2 weeks. If blood work continues to improve back towards baseline, then no further hematology evaluation is needed. I personally spent over half of a total 30 minutes face to face with the patient in counseling and discussion and/or coordination of care as described above. Dian Menjivar M.D., M.B.A. 12/13/2023 documented in this encounter Plan of Treatment Upcoming Encounters Date Type Department Care Team (Latest Contact Info) Description 05/29/2024 12:15 PM SHAPER SETTER Clinical Communication Virtual Review in [address] [phone] 05/31/2024 11:00 AM SHAPER SETTER Appointment Department of Laboratory Medicine and Pathology, [facility], in [address] [phone] Patricia Parker APRN, C.N.P., D.N.P. [address] [place] [phone] 05/31/2024 2:00 PM SHAPER SETTER Comprehensive Visit Preoperative Evaluation Center in [address] [phone] Arianna Jeffries M.D. [address] [place] [phone] 05/31/2024 2:45 PM SHAPER SETTER Comprehensive Visit Preoperative Evaluation Center in [place], [place] [address] [place] [phone] Chris Moreno APRN, C.N.P., M.S. [address] [place] [phone] 06/03/2024 8:15 AM SHAPER SETTER Hospital Encounter Post Anesthesia Care Unit in [place], [place] [address] [place] [phone] Tahir Moore M.D. [address] [place] [phone] 06/03/2024 8:15 AM SHAPER SETTER - 06/03/2024 2:12 PM SHAPER SETTER Surgery [facility] MAIN OR [address] [place] [phone] Tahir Moore M.D. [address] [place] [phone] C1-2 fusion 07/02/2024 11:00 AM SHAPER SETTER Procedure visit Division of Pain Medicine in [place], [place] [address] [place] [phone] Adam Barlow M.D. [address] [place] [phone] Scheduled Procedures Name Priority Associated Diagnoses Date/Ti me 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 06/03/2024 8:15 AM SHAPER SETTER documented as of this encounter Visit Diagnoses Diagnosis Pancytopenia (HCC) Stenosis Spinal documented in this encounter Additional Health Concerns Assessment Noted Time PHQ-9 Depression Total Score: 2 08/03/19 24 9:15 AM CDT documented as of this encounter Care Teams Trimmer Press Clippings Relationship Specialty Start Date End Date Elsewhere, Pcp PCP - General Internal Medicine 05/10/22 documented as of this encounter
--- OUTSIDE RECORDS SUMMARY | 2024-05-21 14:03 | XMS_ITS | Encounter Summary ---
Author Organization [facility] Address [address] [place] [address] Care Team Providers Care Tool And Die Maker Level Five Name Role Phone Elsewhere, Pcp Primary Care Provider Unavailabl e Encounter Details Date Type Department Care Team (Latest Contact Info) Description 01/02/2024 Clinical Communication Department of Cardiovascular Surgery in [place], [place] [address] [place] [phone] Richard Aguayo M.D. [address] [place] [phone] Social History Tobacco Use Types Packs/Day Years Used Date Smoking Tobacco: Former Cigarettes 0 10/03/1966 - 03/05/1974 Smokeless Tobacco: Never Alcohol Use Standard Drinks/Week Comments Yes 10 (1 standard drink = 0.6 oz pu re alcohol) [facility] Utilities Answer Date Recorded In the [...] any clubs o r organizations such as christianity groups, unions, fraternal or athletic groups, or [...] Answer Date Recorded PHQ-2 Score 0 08/03/2023 [facility] [place] of Occupat ional Health - Occupational Stress [...] living situation today? I have a [facility] place to live 12/01/2023 Education Answer Date Recorded What is the highest level of school you have completed or the highest degree you have received? Bachelor's degree (e.g., BA, AB, BS) 08/15/2022 Comments No Sex and Gender Information Value Date Recorded Sex Assigned at Female 05/11/2022 7:48 AM MULTIMEDIA TEACHER Legal Sex Female 9:30 PM MULTIMEDIA TEACHER Gender Identity Female 05/11/2022 7:48 AM MULTIMEDIA TEACHER Sexual Orientation Straight 05/11/2022 7: 48 AM MULTIMEDIA TEACHER documented as of this encounter Miscellaneous Notes * Telephone Encounter - Lindsay Alex, JOHNSON, C.N.P., D.N.P. - 01/02/2024 2:52 PM CDT I returned phone call to Christina at local EP office. She explained that patient continues to be a stroke risk with atrial fibrillation, so they would recommend continuing her anticoagulation medications. She wondered if the left atrial appendage ligation was done during surgery. I explained that it was not done. They are evaluating patient for Watchman device, she will relay this information to thecardiologist. * Telephone Encounter - Soo Hays - 01/02/2024 2:37 PM CDT Good afternoon, Christina a nurse from [facility] called in wanting a message sent to Dr. Aguayo's teamfor more information about the prior surgery the patient had in July. She is reporting that the patient has a history of afib pt is currently on Xarelto - PT is having some bleeding issues and would like to go off it. Reporting PT is at risk of a stroke due to her history with AFIB. They are wanting to know if a left atrial appendage ligation was done during the timeof the procedure. She said they can be contacted back at - which does have a voicemail option or [phone] - which goes directly to the nurses but does not have voicemail. documented in this encounter Plan of Treatment Upcoming Encounters Date Type Department Care Team (Latest Contact Info) Description 05/29/2024 12:15 PM MULTIMEDIA TEACHER Clinical Communication Virtual Review in [address] [phone] 05/31/2024 11:00 AM MULTIMEDIA TEACHER Appointment Department of Laboratory Medicine and Pathology, [facility], in [address] [phone] Patricia Parker APRN, C.N.P., D.N.P. [address] [place] [phone] 05/31/2024 2:00 PM MULTIMEDIA TEACHER Comprehensive Visit Preoperative Evaluation Center in [place], [place] [address] [place] [phone] Arianna Jeffries M.D. [address] [place] [phone] 05/31/2024 2:45 PM MULTIMEDIA TEACHER Comprehensive Visit Preoperative Evaluation Center in [place], [place] [address] [place] [phone] Chris Moreno, JOHNSON, C.N.P., M.S. [address] [place] [phone] 06/03/2024 8:15 AM MULTIMEDIA TEACHER Hospital Encounter Post Anesthesia Care Unit in [place] [id number] [place] [phone] Tahir Moore M.D. [address] [place] [address] [phone] 06/03/2024 8:15 AM MULTIMEDIA TEACHER - 06/03/2024 2:12 PM MULTIMEDIA TEACHER Surgery [facility] MAIN OR [facility] [place] [phone] Tahir Moore M.D. [address] [place] [address] [phone] C1-2 fusion 07/02/2024 11:00 AM MULTIMEDIA TEACHER Procedure visit Division of Pain Medicine in [place], [place] [address] [place] [address] [phone] Adam Barlow M.D. [address] [place] [address] [phone] Scheduled Procedures Name Priority Associated Diagnoses Date/Ti me 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 06/03/2024 8:15 AM MULTIMEDIA TEACHER documented as of this encounter Visit Diagnoses Not on filedocumented in this encounter Additional Health Concerns Assessment Noted Time PHQ-9 Depression Total Score: 2 03/14/20 24 9:15 AM CDT documented as of this encounter Care Teams Tool And Die Maker Level Five Relationship Specialty Start Date End Date Elsewhere, Pcp PCP - General Internal Medicine 05/10/22 documented as of this encounter
--- OUTSIDE RECORDS SUMMARY | 2024-05-21 14:03 | XMS_ITS | Encounter Summary ---
Author Organization [facility] Address [address] [place] [id number] Care Team Providers Care City Planning Aide Name Role Phone Elsewhere, Pcp Primary Care Provider Unavailabl e Reason for Visit * Outpatient (Routine) - Closed Specialty Diagnoses / Procedures Referred By Chanel t Referred To Contact Cardiovascular Surgery Lindsay Alex APRN, C.N.P., D.N.P. [address] [place] [phone] Phone: tel: fax: [facility] Referral ID Status Reason Start Date Expiration Date Visits Re quested Visits Authorized [id number] Closed 12/07/2023 06/07/2025 1 1 Encounter Details Date Type Department Care Team (Late st Contact Info) Description 01/08/2024 2:30 PM CDT Office Visit Department of Cardiovascular Surgery in [place], [place] [address] [place] [phone] Lindsay Alex APRN, C.N.P., D.N.P. [address] [place] [phone] Nba Murray APRN, C.N.P., D.N.P. [address] [place] [phone] Seroma Initial (Primary Dx); Repair Mitral Valve Status Post Social History Tobacco Use Types Packs/Day Years Used Date Smoking Tobacco: Former Cigarettes 0 10/03/1966 - 03/05/1974 Smokeless Tobacco: Never Alcohol Use Standard Drinks/Week Comments Yes 10 (1 standard drink = 0.6 oz pu re alcohol) [facility] Utilities Answer Date Recorded In the past 12 months has [facility] [employer], oil, or water [employer] threatened to shut off services in your [...] often do you attend chur ch or gnosticist services? More than 4 times [...] Answer Date Recorded PHQ-2 Score 2 01/04/2024 [facility] - [...] your living situation today? I have a [facility] place to live 12/01/2023 Education Answer Date Recorded What is the highest level of school you have completed or the highest degree you have received? Bachelor's degree (e.g., BA, AB, BS) 08/15/2022 Comments No Sex and Gender Information Value Date Recorded Sex Assigned at Female 05/11/2022 7:48 AM CLAY TEMPERER Legal Sex Female 9:30 PM CLAY TEMPERER Gender Identity Female 05/11/2022 7:48 AM CLAY TEMPERER Sexual Orientation Straight 05/11/2022 7: 48 AM CLAY TEMPERER documented as of this encounter H&P Notes * Nba Murray APRN, C.N.P., D.N.P. - 01/08/2024 2:30 PM CDT Gladys Zamarripa : 1950 Visit Date: 01/08/24 REFERRING PHYSICIAN: Lindsay Alex APRN, C.N.P., D.N.P. Home software validation engineer: Quan Lopez MD [address] [address] Home primary care provider: Christine Rodriguez MD [address] [place] [phone] SUBJECTIVE CHIEF COMPLAINT / REASON FOR CONSULT Preoperative evaluation and education. HISTORY OF PRESENT ILLNESS Gladys Zamarripa is a 73 y.o. female who presents for a visit today prior to scheduled surgery. Ms. Zamarripa has a cardiac history significant for mitral valve repair via robotic approach in July of 2022. Now here for debridement to a right groin seroma preoperative assessment. She will undergo the debridement tomorrow on 01/09/2024 Denies symptoms of chest pain, dyspnea, orthopnea, PND, palpitations, irregular heart rhythm, edema, dizziness, and syncope. NYHA Class I: Symptoms only at activity levels that would limit normal individuals Patient does not meet criteria for heart failure at this time. Other medical comorbidities include: Spinal stenosis, AFib, cardiomegaly, depression, hyperlipidemia, hypertension, anemia, gout, mitral regurgitation status post repair, vitamin-D deficiency, osteoarthritis, malignant neoplasm of skin squamous cell, mild alcohol use disorder, chronic systolic heart failure, mitral valve repair, leukocytosis, hyponatremia, pancytopenia, seroma kidney disease Patient Active Problem List Diagnosis Stenosis Spinal [...] Anemia) Leukocytosis Hyponatremia Pancytopenia (HCC) Seroma Initial Past Medical History: Diagnosis Date Acute Gastric Ulcer Without Hemorrhage Or Perforation 10/16/2009 Anxiety Generalized Disorder 02-03-2021 Atrial Fibrillation Unspecified (HCC) 06-05-2016 Atypical Atrial Flutter (HCC) Cardiomyopathy Stress Induced - 05/05/2021 EKG with T-wave inversion and new decrement in LVEF to 25% Depressive Disorder 02-03-2021 Gastroesophageal Reflux Disease Without Esophagitis Hyperlipidemia Hypertension NOS 2002 Melanoma Skin (HCC) 03-05-2021 Osteopenia 06-05-2015 Other Injury Of Unspecified Body Region [id number] Fall on left knee Pain Cervical 08/23/2006 PreDiabetes Skin Cancer (Primary) NOS 11-04-2019 Past Surgical History: Procedure Laterality Date APPENDECTOMY 2020 BREAST SURGERY 1996 BUNIONECTOMY Bilateral both feet x2 on both feet CATH ANGIOGRAM N/A 08/04/2023 Procedure: CORONARY ANGIOGRAPHY; Surgeon: Rosa Justice M.D.; Location: [facility] ROM CCL SECTION 1979&1982 DECOMPRESSION POSTERIOR LUMBAR AND FUSION N/A 08/31/2022 Procedure: L3-S1 Fusion, TLIF at L3/4, L4/5.; Surgeon: Matt Zheng M.D.; Location: [facility] OR DECORTICATION - THORACOSCOPY (VATS) Right 08/07/2023 Procedure: THORACOSCOPY - WASHOUT POSSIBLE THORACOTOMY, CONTROL OF BLEEDING; Surgeon: Richard Aguayo M.D.; Location: [facility] OR ROBOTIC-ASSISTED MITRAL VALVE - VALVULOPLASTY N/A 08/07/2023 Procedure: ROBOTIC-ASSISTED MITRAL VALVE, VALVULOPLASTY, Nimo clamp, 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 Social History Tobacco Use Smoking status: Former Current packs/day: 0.00 Types: Cigarettes Start date: 10/03/1966 Quit date: 03/05/1974 Years since quittin.8 Smokeless tobacco: Never Substance Use Topics Alcohol use: Yes Alcohol/week: 10.0 standard drinks of alcohol Types: 10 Glasses of wine per week ALLERGIES / CONTRAINDICATIONS No Known Allergies CURRENT MEDICATIONS Current Medications: acetaminophen (TYLENOL) 500 [...] tablet, Take 1 tablet by mouth daily. mupirocin (Bactroban) 2 % ointment, Apply pea sized amount to each nostril the night before and morning of surgery. omega 3-tyb-mnw-fish oil (fish oil) 1,200 (144-216) mg capsule, Take 1 capsule by mouth daily. omeprazole (PriLOSEC) [address] capsule, Take 20 mg by mouth every morning before breakfast. pediatric bwuuctvlmzsm-ygnl-egxldqbl (FLINTSTONES COMPLETE) chewable tablet, Chew 1 tablet [...] to start retaking 1 week after surgery) REVIEW OF SYSTEMS Negative for seizure, stroke, diabetes, thyroid issues, asthma or other lung problems, sleep apnea,history of blood clotting or bleeding disorders, swallowing problems or history of esophageal stricture, history of stomach ulcer or bleed, bowel concerns, liver or kidney issues, difficulty with urination, muscle or joint problems. No reported skin alterations or recent weight changes. The patienthas not had previous difficulties with anesthesia. No steroids or blood transfusions within the last three months. No unaddressed pain or mental health concerns. Last visit to the dentist, no currentdental issues. Dental clearance form scanned into the EMR. OBJECTIVE VITAL SIGNS Temperature: [36.1 ??C] 36.1 ??C Blood Pressure: (135)/(84) 135/84 SpO2: [98 %] 98 % Height: [160.5 cm] 160.5 cm Weight: [62.4 kg] 62.4 kg BSA (Calculated - sq m): [1.67 sq meters] 1.67 sq meters BMI (Calculated): [24.2 kg/m??] 24.2 kg/m?? Pulse Rate: [95] 95 PHYSICAL EXAMINATION General: Alert and oriented. No acute distress. Cardiovascular: Regular rate and rhythm, no murmur. Respiratory: Lungs are clear to auscultation bilaterally. Extremities: Warm. Pulses equal bilaterally. Mild edema bilaterally at the ankles DIAGNOSTICS I have reviewed the patient's current laboratory results, chest x-ray, EKG, and echocardiogram. Labs: Lab Results Component Value Date WBC 4.9 01/08/2024 WBC 4.6 01/08/2024 RBC 3.19 (L) 01/08/2024 RBC 3.15 (L) 01/08/2024 HGB 10.5 (L) 01/08/2024 HGB 10.7 (L) 01/08/2024 HGB 7.3 (L) 08/08/2023 HGB 9.5 (L) 08/07/2023 HCT 32.8 (L) 01/08/2024 HCT 32.6 (L) 01/08/2024 PLT 219 01/08/2024 PLT 198 01/08/2024 MCV 102.8 (H) 01/08/2024 MCV 104 (H) 01/08/2024 MCH 34.0 01/08/2024 MCHC 32.8 01/08/2024 RDW 13.1 01/08/2024 RDW 13.3 01/08/2024 Lab Results Component Value Date NA 139 01/08/2024 NA 135 10/31/2023 KSERUM 4.3 01/08/2024 KSERUM 4.1 10/31/2023 CL 101 01/08/2024 CL 95 (L) 10/31/2023 CO2 23 05/13/2022 BUN 12 01/08/2024 BUN 7 10/31/2023 CREATININE 0.72 01/08/2024 CREATININE 0.62 10/31/2023 EGFRNONBLKAA >60 05/24/2021 Lab Results Component Value Date INR 1.0 01/08/2024 Lab Results Component Value Date EF 63 11/02/2023 ASSESSMENT / PLAN #1 Seroma Initial #2 Repair Mitral Valve Status Post Ms. Zamarripa is scheduled for right groin seroma debridement with Dr. Aguayo on 01/09/2024. Case listing was updated. Intraoperative orders were placed. Caprini Total Score: 5 The patient is at high risk for postoperative DVT or PE. Mechanical prophylaxis recommended at the time of procedure AND mechanical and chemoprophylaxis are recommended during postoperative hospitalization, unless there are contraindications. PATIENT EDUCATION Patient is ready to learn, no apparent learning barriers were identified; learning preferences include listening and visual aids. I/nursing have reviewed the preoperative instructions in detail. Postoperative course and recovery were discussed. All questions answered. The following were provided and reviewed: Checklist for Surgical Patients (MC 3596) pamphlet; Your guide to Cardiac Surgery [id number]; Surgical Site Infection: Reducing Your Risk (MC 6471); Central Venous Catheter Infection: Reducing Your Risk ([id number]). Patient instructed to report to [facility] for Bactroban prescription. Application instructions provided. Preoperative diet and medication instructions given. Instructed to report to admissions desk for hospital pre-admissions. Patient verbalized understanding of instructions and all questions were answered. CONSENT The risks, benefits, and alternatives to the planned procedure were discussed in detail. All questions pertaining to the procedure and these risks were answered and the patient agreed to proceed. Informed consent was reviewed in detail and signed by the patient. Thank you for the opportunity to participate in the care of this patient. I personally spent 45 minutes in care of the patient today. Time includes both mqg-sxxp-om-face velvvgu-ti-vtlr patient care. Jered Murray APRN, C.N.P., D.N.P. documented in this encounter Plan of Treatment Upcoming Encounters Date Type Department Care Team (Latest Contact Info) Description 05/29/2024 12:15 PM CLAY TEMPERER Clinical Communication Virtual Review in [place], [place] [address] [place] [phone] 05/31/2024 11:00 AM CLAY TEMPERER Appointment Department of Laboratory Medicine and Pathology, [facility], in [place], [place] [address] [place] [phone] Patricia Parker APRN, C.N.P., D.N.P. [address] [place] [phone] 05/31/2024 2:00 PM CLAY TEMPERER Comprehensive Visit Preoperative Evaluation Center in [place], [place] [address] [place] [phone] Arianna Jeffries M.D. [address] [place] [phone] 05/31/2024 2:45 PM CLAY TEMPERER Comprehensive Visit Preoperative Evaluation Center in [place], [place] [address] [place] [phone] Chris Moreno, JOHNSON, C.N.P., M.S. [address] [place] [phone] 06/03/2024 8:15 AM CLAY TEMPERER Hospital Encounter Post Anesthesia Care Unit in [place] [id number] [place] [phone] Tahir Moore M.D. [address] [place] [phone] 06/03/2024 8:15 AM CLAY TEMPERER - 06/03/2024 2:12 PM CLAY TEMPERER Surgery [facility] OR [facility] [place] [phone] Tahir Moore M.D. [address] [place] [phone] C1-2 fusion 07/02/2024 11:00 AM CLAY TEMPERER Procedure visit Division of Pain Medicine in [place], [place] [address] [place] [phone] Adam Barlow M.D. [address] [place] [phone] Scheduled Procedures Name Priority Associated Diagnoses Date/Ti me 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 06/03/2024 8:15 AM CLAY TEMPERER documented as of this encounter Visit Diagnoses Diagnosis Seroma Initial- Primary Repair Mitral Valve Status Post Stenosis Spinal documented in this encounter Additional Health Concerns Assessment Noted Time PHQ-9 Depression Total Score: 5 01/04/20 24 3:57 AM CDT documented as of this encounter Care Teams City Planning Aide Relationship Specialty Start Date End Date Elsewhere, Pcp PCP - General Internal Medicine 05/10/22 documented as of this encounter
--- OUTSIDE RECORDS SUMMARY | 2024-05-21 14:03 | XMS_ITS | Encounter Summary ---
Author Organization [facility] Address [address] [place] [address] Care Team Providers Care Heat And Frost Insulator Helper Name Role Phone Elsewhere, Pcp Primary Care Provider Unavailabl e Encounter Details Date Type Department Care Team (Late st Contact Info) Description 01/08/2024 2:00 PM CDT Education Department of Cardiovascular Surgery in [place], [place] [address] [place] [phone] Lindsay Alex, RADIAL DRILL OPERATOR FOR PLASTIC, C.N.P., D.N.P. [address] [place] [phone] Olena Zabala, RJose Seroma Initial Social History Tobacco Use Types Packs/Day Years Used Date Smoking Tobacco: Former Cigarettes 0 10/03/1966 - 03/05/1974 Smokeless Tobacco: Never Alcohol Use Standard Drinks/Week Comments Yes 10 (1 standard drink = 0.6 oz pu re alcohol) [facility] Utilities Answer Date Recorded In the [...] How often do you attend chur or uatsdin services? More than 4 times per year 08/15/2022 Do you belong to any clubs o r organizations such as alevism groups, unions, fraternal or athletic groups, or [...] Date Recorded PHQ-2 Score 2 01/04/2024 [facility] of Occupat ional Health - Occupational Stress [...] your living situation today? I have a [facility] place to live 12/01/2023 Education Answer Date Recorded What is the highest level of school you have completed or the highest degree you have received? Bachelor's degree (e.g., BA, AB, BS) 08/15/2022 Comments No Sex and Gender Information Value Date Recorded Sex Assigned at Female 05/11/2022 7:48 AM TELE MARKETING EXECUTIVE Legal Sex Female 9:30 PM TELE MARKETING EXECUTIVE Gender Identity Female 05/11/2022 7:48 AM TELE MARKETING EXECUTIVE Sexual Orientation Straight 05/11/2022 7: 48 AM TELE MARKETING EXECUTIVE documented as of this encounter Last Filed Vital Signs Vital Sign Reading Time Taken Comments Blood Pressure 135/84 01/08/2024 1:55 PM CDT Pulse 95 01/08/2024 1:55 PM CDT Temperature 36.1 C (97 F) 01/08/2024 1:55 PM CDT Respiratory Rate - - Oxygen Saturation 98% 01/08/2024 1:55 PM CDT Inhaled Oxygen Concentration - - Weight 62.4 kg (137 lb 7.3 oz) 01/08/2024 1:55 P M CDT Height 160.5 cm (5' 3.19) 01/08/2024 1:55 PM CD T Body Mass Index 24.2 01/08/2024 1:55 PM CDT documented in this encounter Progress Notes * Olena Zabala, R.N. - 01/08/2024 2:00 PM CDT Ms. Gladys Zamarripa is a 73 y.o. female who was seen for pre-op education prior to surgery. Pre-op education and instructions were provided to Gladys and Elias weston. They indicate understanding of all teaching at this time and all questions were answered. Visitor policy was discussed in detail with Gladys and Elias. They understand that there may be two persons allowed in the patient room at a time. They also understand that visiting hours are from 6:00 a.m. to 9:00 p.m. with no overnight visitors allowed. Visitors are aware masking is not mandatory except in immunocompromised units. Visitor policy is subject to change. Social Work: Pre-operatively the LOU-7 and PHQ9 scores were reviewed. Scores are as follows: LOU-7 Total Score (max 21): 0 PHQ-9 Total Score (max 27): 5 This indicates no need for a social work consult at this time. PT/OT: Gladys has fallen in the past year. They scored [facility] Clinic Frailty Score (CFS): 3: Managing Well (medical problems are well controlled) on the Clinical Frailty Scale and this indicates no need for a PT/OT consult at this time. I discussed plans for discharge with Gladys, she plans to discharge Home. ESDP Score: 9 and indicatesno need for a care management consult at this time. No discharge needs were identified at time of pre-op appointment. Gladys does not meet eligibility criteria for the Posthorax Vest. Gladys is not identified as a candidate for Remote Patient Monitoring. Geovanna Zabala R.N. documented in this encounter Plan of Treatment Upcoming Encounters Date Type Department Care Team (Latest Contact Info) Description 05/29/2024 12:15 PM TELE MARKETING EXECUTIVE Clinical Communication Virtual Review in [place], [place] [address] [place] [phone] 05/31/2024 11:00 AM TELE MARKETING EXECUTIVE Appointment Department of Laboratory Medicine and Pathology, [facility], in [place], [place] [address] [place] [phone] Patricia Parker APRN, C.N.P., D.N.P. [address] [place] [phone] 05/31/2024 2:00 PM TELE MARKETING EXECUTIVE Comprehensive Visit Preoperative Evaluation Center in [place], [place] [address] [place] [phone] Arianna Jeffries M.D. [address] [place] [phone] 05/31/2024 2:45 PM TELE MARKETING EXECUTIVE Comprehensive Visit Preoperative Evaluation Center in [place], [place] [address] [place] [phone] Chris Moreno, JOHNSON, C.N.P., M.S. [address] [place] [phone] 06/03/2024 8:15 AM TELE MARKETING EXECUTIVE Hospital Encounter Post Anesthesia Care Unit in [place], [place] [address] [place] [phone] Tahir Moore M.D. [address] [place] [phone] 06/03/2024 8:15 AM TELE MARKETING EXECUTIVE - 06/03/2024 2:12 PM TELE MARKETING EXECUTIVE Surgery [facility] OR [address] [place] [phone] Tahir Moore M.D. [address] [place] [phone] C1-2 fusion 07/02/2024 11:00 AM TELE MARKETING EXECUTIVE Procedure visit Division of Pain Medicine in [place], [place] [address] [place] [phone] Adam Barlow M.D. 200 [place] [phone] Scheduled Procedures Name Priority Associated Diagnoses Date/Ti me 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 06/03/2024 8:15 AM TELE MARKETING EXECUTIVE documented as of this encounter Visit Diagnoses Diagnosis Seroma Initial Stenosis Spinal documented in this encounter Additional Health Concerns Assessment Noted Time PHQ-9 Depression Total Score: 5 01/04/20 24 3:57 AM CDT documented as of this encounter Care Teams Heat And Frost Insulator Helper Relationship Specialty Start Date End Date Elsewhere, Pcp PCP - General Internal Medicine 05/10/22 documented as of this encounter
--- OUTSIDE RECORDS SUMMARY | 2024-05-21 14:04 | XMS_ITS | Encounter Summary ---
Author Organization [facility] Address [address] [place] [address] Care Team Providers Care Densitometer Reader Name Role Phone Elsewhere, Pcp Primary Care Provider Unavailabl e Reason for Visit * Reason Onset Date Comments Follow-up 09/13/2023 Encounter Details Date Type Department Care Team (Latest Contact Info) Description 09/13/2023 Clinical Communication Department of Cardiovascular Surgery in [place], [place] [address] [place] [phone] Richard Aguayo M.D. [address] [place] [phone] Follow-up Social History Tobacco Use Types Packs/Day Years Used Date Smoking Tobacco: Former Cigarettes 0 10/03/1966 - 03/05/1974 Smokeless Tobacco: Never Alcohol Use Standard Drinks/Week Comments Yes 10 (1 standard drink = 0.6 oz pu re alcohol) [facility] Utilities Answer Date Recorded In the past 12 months has [facility] [employer], gas, oil, or water [employer] threatened to shut off services in your home? No 08/09/2023 Humiliation, Afraid, Rape, and Kick questionnair e Answer Date Recorded Within the last year, have y ou been afraid of your partner or ex-partner? No 08/09/2023 Within the last year, have y ou been humiliated or emotionally abused in other ways by your partner or ex-partner? No Within the last year, have y ou been kicked, hit, slapped, or otherwise physically hurt by your partner or ex-partner? No 08/09/2023 Within the last year, have y ou been raped or forced to have any kind of sexual activity by your partner or ex-partner? No 08/09/2023 Social Connection and Isolat ion Panel [NHANES] Answer Date Recorded In a typical week, how many times do you talk on the phone with family, friends, or neighbors? More than three times a week 08/15/2022 How often do you get togethe r with friends or relatives? Once a week 08/15/2022 How often do you attend chur or congregation services? More than 4 times per year 08/15/2022 Do you belong to any clubs o r organizations such as oriental orthodox groups, unions, fraternal or athletic groups, or [...] Answer Date Recorded PHQ-2 Score 0 08/03/2023 [facility] Occupat ional Health - Occupational [...] the money to buy more. Never true 08/09/19 Within the past 12 months, t he food you bought just didn't last and you didn't have money to get more. Never true 08/09/2023 PRAPARE - Transportation Answer Date Re corded In the past 12 months, has l ack of transportation kept you from medical appointments or from getting medications? No 07/21 In the past 12 months, has l ack of transportation kept you from meetings, work, or from getting things needed for daily living? No 08/09/2023 Depression Answer Date Recor ded PHQ-9 Total [...] your living situation today? I have a [facility] place to live 08/09/2023 Education Answer Date Recorded What is the highest level of school you have completed or the highest degree you have received? Bachelor's degree (e.g., BA, AB, BS) 08/15/2022 Comments No Sex and Gender Information Value Date Recorded Sex Assigned at Female 05/11/2022 7:48 AM QUALITY ASSISTANT Legal Sex Female 9:30 PM QUALITY ASSISTANT Gender Identity Female 05/11/2022 7:48 AM QUALITY ASSISTANT Sexual Orientation Straight 05/11/2022 7: 48 AM QUALITY ASSISTANT documented as of this encounter Miscellaneous Notes * Telephone Encounter - Fariha Dias - 09/13/2023 10:38 AM CDT Gladys Zamarripa was contacted via [employer] for the 30 day post Cardiac Surgery follow-up. Per the patient report, there was no readmissions or procedures that took place within 30 daysof dismissal. documented in this encounter Plan of Treatment Upcoming Encounters Date Type Department Care Team (Latest Contact Info) Description 05/29/2024 12:15 PM QUALITY ASSISTANT Clinical Communication Virtual Review in [place], [place] [address] [place] [address] 05/31/2024 11:00 AM QUALITY ASSISTANT Appointment Department of Laboratory Medicine and Pathology, [facility], in [address] [phone] Patricia Parker APRN, C.N.P., D.N.P. [address] [place] [phone] 05/31/2024 2:00 PM QUALITY ASSISTANT Comprehensive Visit Preoperative Evaluation Center in [place], [place] [address] [place] [phone] Arianna Jeffries M.D. [address] [place] [phone] 05/31/2024 2:45 PM QUALITY ASSISTANT Comprehensive Visit Preoperative Evaluation Center in [place], [place] [address] [place] [phone] Chris Moreno APRN, C.N.P., M.S. [address] [place] [phone] 06/03/2024 8:15 AM QUALITY ASSISTANT Hospital Encounter Post Anesthesia Care Unit in [place], [place] [address] [place] [phone] Tahir Moore M.D. [address] [place] [phone] 06/03/2024 8:15 AM QUALITY ASSISTANT - 06/03/2024 2:12 PM QUALITY ASSISTANT Surgery [facility] MAIN OR [address] [place] [phone] Tahir Moore M.D. [address] [place] [phone] C1-2 fusion 07/02/2024 11:00 AM QUALITY ASSISTANT Procedure visit Division of Pain Medicine in [place], [place] [address] [place] [phone] Adam Barlow M.D. [address] [place] [phone] Scheduled Procedures Name Priority Associated Diagnoses Date/Ti me 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 06/03/2024 8:15 AM QUALITY ASSISTANT documented as of this encounter Visit Diagnoses Not on filedocumented in this encounter Additional Health Concerns Assessment Noted Time PHQ-9 Depression Total Score: 2 08/03/19 24 9:15 AM CDT documented as of this encounter Care Teams Densitometer Reader Relationship Specialty Start Date End Date Elsewhere, Pcp PCP - General Internal Medicine 05/10/22 documented as of this encounter
--- OUTSIDE RECORDS SUMMARY | 2024-05-21 14:04 | XMS_ITS | Encounter Summary ---
Author Organization [facility] Address [address] [place] [address] Care Team Providers Care Salesperson Flowers Name Role Phone Elsewhere, Pcp Primary Care Provider Unavailabl e Encounter Details Date Type Department Care Team (Late st Contact Info) Description 08/11/2023 Abstract [place], [place] [address] [place] [phone] Provider, Historical Social History Tobacco Use Types Packs/Day Years Used Date Smoking Tobacco: Former Cigarettes 0 10/03/1966 - 03/05/1974 Smokeless Tobacco: Never Alcohol Use Standard Drinks/Week Comments Yes 10 (1 standard drink = 0.6 oz pu re alcohol) [facility] Utilities Answer Date Recorded In the past 12 months has [facility] [employer], gas, oil, or water [employer] threatened to shut off services in [...] How often do you attend chur or buddhist services? More than 4 times per year [...] Answer Date Recorded PHQ-2 Score 0 08/03/2023 [facility] Occupat ional Health - [...] money to buy more. Never true 08/09/19 24 Within the past 12 months, t [...] your living situation today? I have a [facility] place to live 08/09/2023 Education Answer Date Recorded What is the highest level of school you have completed or the highest degree you have received? Bachelor's degree (e.g., BA, AB, BS) 08/15/2022 Comments No Sex and Gender Information Value Date Recorded Sex Assigned at Female 05/11/2022 7:48 AM IMPORT COORDINATOR Legal Sex Female 9:30 PM IMPORT COORDINATOR Gender Identity Female 05/11/2022 7:48 AM IMPORT COORDINATOR Sexual Orientation Straight 05/11/2022 7: 48 AM IMPORT COORDINATOR documented as of this encounter Plan of Treatment Upcoming Encounters Date Type Department Care Team (Latest Contact Info) Description 05/29/2024 12:15 PM IMPORT COORDINATOR Clinical Communication Virtual Review in [place], [place] [address] [place] [phone] 05/31/2024 11:00 AM IMPORT COORDINATOR Appointment Department of Laboratory Medicine and Pathology, [facility], in [place], [place] [address] [place] [phone] Patricia Parker APRN, C.N.P., D.N.P. [address] [place] [phone] 05/31/2024 2:00 PM IMPORT COORDINATOR Comprehensive Visit Preoperative Evaluation Center in [place], [place] [address] [place] [phone] Arianna Jeffries M.D. [address] [place] [phone] 05/31/2024 2:45 PM IMPORT COORDINATOR Comprehensive Visit Preoperative Evaluation Center in [place], [place] [address] [place] [phone] Chris Moreno APRN, C.N.P., M.S. [address] [place] [phone] 06/03/2024 8:15 AM IMPORT COORDINATOR Hospital Encounter Post Anesthesia Care Unit in [place] [phone] [place] [address] [phone] Tahir Moore M.D. [address] [place] [phone] 06/03/2024 8:15 AM IMPORT COORDINATOR - 06/03/2024 2:12 PM IMPORT COORDINATOR Surgery [facility] MAIN OR [address] [place] [phone] Tahir Moore M.D. [address] [place] [phone] C1-2 fusion 07/02/2024 11:00 AM IMPORT COORDINATOR Procedure visit Division of Pain Medicine in [place], [place] [address] [place] [phone] Adam Barlow M.D. 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
--- OUTSIDE RECORDS SUMMARY | 2024-05-21 14:04 | XMS_ITS | Encounter Summary ---
Author Organization [facility] Address [address] [place] [address] Care Team Providers Care Telecommunication Systems Designer Name Role Phone Elsewhere, Pcp Primary Care Provider Unavailabl e Encounter Details Date Type Department Care Team (Late st Contact Info) Description 08/30/2023 Episode Changes Department of Cardiovascular Medicine in [place], [place] [address] [place] [address] Karon Huerta [address] [place] [phone] Social History Tobacco Use Types Packs/Day Years Used Date Smoking Tobacco: Former Cigarettes 0 10/03/1966 - 03/05/1974 Smokeless Tobacco: Never Alcohol Use Standard Drinks/Week Comments Yes 10 (1 standard drink = 0.6 oz pu re alcohol) [facility] Utilities Answer Date Recorded In the [...] How often do you attend chur or protestant services? More than 4 times [...] Answer Date Recorded PHQ-2 Score 0 08/03/2023 [facility] [place] of Occupat ional Health - Occupational Stress [...] your living situation today? I have a [facility] place to live 08/09/2023 Education Answer Date Recorded What is the highest level of school you have completed or the highest degree you have received? Bachelor's degree (e.g., BA, AB, BS) 08/15/2022 Comments No Sex and Gender Information Value Date Recorded Sex Assigned at Female 05/11/2022 7:48 AM LIBRARY CLERK Legal Sex Female 9:30 PM LIBRARY CLERK Gender Identity Female 05/11/2022 7:48 AM LIBRARY CLERK Sexual Orientation Straight 05/11/2022 7: 48 AM LIBRARY CLERK documented as of this encounter Plan of Treatment Upcoming Encounters Date Type Department Care Team (Latest Contact Info) Description 05/29/2024 12:15 PM LIBRARY CLERK Clinical Communication Virtual Review in [address] [phone] 05/31/2024 11:00 AM LIBRARY CLERK Appointment Department of Laboratory Medicine and Pathology, [facility] in [place], [place] [address] [place] [phone] Patricia Parker APRN, C.N.P., D.N.P. [address] [place] [phone] 05/31/2024 2:00 PM LIBRARY CLERK Comprehensive Visit Preoperative Evaluation Center in [place], [place] [address] [place] [phone] Arianna Jeffries M.D. [address] [place] [phone] 05/31/2024 2:45 PM LIBRARY CLERK Comprehensive Visit Preoperative Evaluation Center in [place], [place] [address] [place] [phone] Chris Moreno APRN, C.N.P., M.S. [address] [place] [phone] 06/03/2024 8:15 AM LIBRARY CLERK Hospital Encounter Post Anesthesia Care Unit in [place] [phone] [place] [phone] Tahir Moore M.D. [address] [place] [phone] 06/03/2024 8:15 AM LIBRARY CLERK - 06/03/2024 2:12 PM LIBRARY CLERK Surgery [facility] MAIN OR [address] [place] [phone] Tahir Moore M.D. [address] [place] [phone] C1-2 fusion 07/02/2024 11:00 AM LIBRARY CLERK Procedure visit Division of Pain Medicine in [place], [place] [address] [place] [phone] Adam Barlow M.D. 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
--- OUTSIDE RECORDS SUMMARY | 2024-05-21 14:04 | XMS_ITS | Encounter Summary ---
Author Organization [facility] Address [address] [place] [address] Care Team Providers Care Dry Drug Worker Name Role Phone Elsewhere, Pcp Primary Care Provider Unavailabl e Reason for Visit * Reason Onset Date Comments Chio Gonzalez would like to talk to service 024 Encounter Details Date Type Department Care Team (Latest Contact Info) Description 10/31/2023 Clinical Communication Department of Cardiovascular Surgery in [place], [place] [address] [place] [phone] Richard Aguayo M.D. [address] [place] [phone] Chio Gonzalez would like to talk to service Social History Tobacco Use Types Packs/Day Years Used Date Smoking Tobacco: Former Cigarettes 0 10/03/1966 - 03/05/1974 Smokeless Tobacco: Never Alcohol Use Standard Drinks/Week Comments Yes 10 (1 standard drink = 0.6 oz pu re alcohol) [facility] Utilities Answer Date Recorded In the past 12 months has th e [employer], gas, oil, or water [employer] threatened to shut off services in your [...] any clubs o r organizations such as hinduism groups, unions, fraternal or athletic groups, or [...] Answer Date Recorded PHQ-2 Score 0 08/03/2023 [facility] of Occupat ional Health - Occupational Stress [...] your living situation today? I have a [facility] place to live 10/31/2023 Education Answer Date Recorded What is the highest level of school you have completed or the highest degree you have received? Bachelor's degree (e.g., BA, AB, BS) 08/15/2022 Comments No Sex and Gender Information Value Date Recorded Sex Assigned at Female 05/11/2022 7:48 AM MEDICAL INSURANCE CODING SPECIALIST Legal Sex Female 9:30 PM MEDICAL INSURANCE CODING SPECIALIST Gender Identity Female 05/11/2022 7:48 AM MEDICAL INSURANCE CODING SPECIALIST Sexual Orientation Straight 05/11/2022 7: 48 AM MEDICAL INSURANCE CODING SPECIALIST documented as of this encounter Miscellaneous Notes * Telephone Encounter - Jacqueline Hinds MPAS, P.A.-C. - 10/31/2023 4:20 PM CDT I called and talked with Dr. Parsons briefly on the phone. Patient presented to her local clinic today with concerns for dizziness, shortness breath, and petechiae on her lower extremities. Patient had a CBC performed which showed significant pancytopenia, this is new from her previous blood work that we have from her surgery in July of 2023. Initially, prior to the entire CBC with diff coming back patient's primary care provider thought that the aspirin and Eliquis may have caused her thrombocytopenia. However, as the entire differential came back and her PCP realized that it was a pancytopenia patient was referred to [facility] for further management and evaluation. * Telephone Encounter - Kinsey Vaz - 10/31/2023 12:29 PM CDT CHIEF COMPLAINT / REASON FOR CALL Local Lisa would like to talk to service Name of caller/relationship to the patient: Dr. Wen Parsons (Patient's PCP) Patient expects communication via portal: No Phone number: [phone] Surgical Date: 08/07/2023 Surgeon: Olivier Request topic and what needs to be addressed? Procedural/Surgical Question Date and type of procedure/surgery: 08/07/23 Robotic MVR Questions to be answered: Dr. Parsons, patient's PCP, called asking to speak with someone regarding patient's pancytopenia. Labs from today revealed a platelet count of 79. She would like to speak to the surgical service to help formulate a plan. Procedure/surgery requirements: N/A Background information: N/A Routing Patient Discharged within last week? No Patient seen by outpatient provider since dismissal? Yes: Provider seen: Dr. Jered Murray and Appt Date 08/15/23 Reminder: send to inpatient group if patient DC'd within past week, and has not been seen by outpatient provider documented in this encounter Plan of Treatment Upcoming Encounters Date Type Department Care Team (Latest Contact Info) Description 05/29/2024 12:15 PM MEDICAL INSURANCE CODING SPECIALIST Clinical Communication Virtual Review in [place], [place] [address] [place] [phone] 05/31/2024 11:00 AM MEDICAL INSURANCE CODING SPECIALIST Appointment Department of Laboratory Medicine and Pathology, [facility], in [place], [place] [address] [place] [phone] Patricia Parker APRN, C.N.P., D.N.P. [address] [place] [phone] 05/31/2024 2:00 PM MEDICAL INSURANCE CODING SPECIALIST Comprehensive Visit Preoperative Evaluation Center in [place], [place] [address] [place] [phone] Arianna Jeffries M.D. [address] [place] [phone] 05/31/2024 2:45 PM MEDICAL INSURANCE CODING SPECIALIST Comprehensive Visit Preoperative Evaluation Center in [place], [place] [address] [place] [phone] Chris Moreno, JOHNSON, C.N.P., M.S. [address] [place] [phone] 06/03/2024 8:15 AM MEDICAL INSURANCE CODING SPECIALIST Hospital Encounter Post Anesthesia Care Unit in [address] [phone] Tahir Moore M.D. [address] [place] [phone] 06/03/2024 8:15 AM MEDICAL INSURANCE CODING SPECIALIST - 06/03/2024 2:12 PM MEDICAL INSURANCE CODING SPECIALIST Surgery [facility] MAIN OR [address] [place] [phone] Tahir Moore M.D. [address] [place] [phone] C1-2 fusion 07/02/2024 11:00 AM MEDICAL INSURANCE CODING SPECIALIST Procedure visit Division of Pain Medicine in [place], [place] [address] [place] [phone] Adam Barlow M.D. 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
--- OUTSIDE RECORDS SUMMARY | 2024-05-21 14:04 | XMS_ITS | Encounter Summary ---
Author Organization [facility] Address [address] [place] [address] Care Team Providers Care Rayon Coner Name Role Phone Elsewhere, Pcp Primary Care Provider Unavailabl e Reason for Visit * Reason Comments Abnormal Lab Encounter Details Date Type Department Care Team (Latest Contact Info) Description 10/31/2023 4:00 PM CDT - 11/03/2023 2:25 PM CDT Hospital Encounter [facility], [facility], Third Floor [address] [place] [address] Suman Juárez M.D. [address] [place] [phone] Suman Schumacher M.B.B.S., M.D. [address] [place] [phone] Pancytopenia (HCC) (Primary Dx); Anemia Macrocytic Discharge Disposition: Home or Self Care Social [...] often do you attend chur ch or congregational services? More than 4 times per year 08/15/2022 Do you belong to any clubs o r organizations such as mu-ism groups, unions, fraternal or athletic groups, or [...] Answer Date Recorded PHQ-2 Score 0 08/03/2023 [facility] Occupat ional [facility] - Occupational Stress Questionnaire Answer Date [...] your living situation today? [facility] 10/31/2023 Education Answer Date Recorded What is the highest level of school you have completed or the highest degree you have received? Bachelor's degree (e.g., BA, AB, BS) 08/15/2022 Comments No Sex and Gender Information Value Date Recorded Sex Assigned at Female 05/11/2022 7:48 AM FIRE MANAGEMENT SPECIALIST Legal Sex Female 9:30 PM FIRE MANAGEMENT SPECIALIST Gender Identity Female 05/11/2022 7:48 AM FIRE MANAGEMENT SPECIALIST Sexual Orientation Straight 05/11/2022 7: 48 AM FIRE MANAGEMENT SPECIALIST documented as of this encounter Last Filed Vital Signs Vital Sign Reading Time Taken Comments Blood Pressure 163/112 11/03/2023 1:10 PM CDT Pulse 117 11/03/2023 1:10 PM CDT Temperature 36.5 C (97.7 F) 11/03/2023 1:10 PM CDT Respiratory Rate 17 11/03/2023 1:10 PM CDT Oxygen Saturation 99% 11/03/2023 1:10 PM CDT Inhaled Oxygen Concentration - - Weight 59.7 kg (131 lb 9.8 oz) 11/01/2023 12:48 AM CDT Height 159.4 cm (5' 2.76) 10/31/2023 10:20 PM C DT Body Mass Index 23.5 10/31/2023 10:20 PM CDT documented in this encounter Discharge Summaries * Dong Cancino M.D. - 11/03/2023 11:10 AM CDT DISCHARGE SUMMARY BRIEF OVERVIEW Hospital: [facility] Discharge Provider: Suman Schumacher M.B.BHomeroS. Primary Team: [facility] Medicine 1 ([facility]) Primary Care Providers: Elsewhere, Pcp (General) No address on file Primary Care Provider Phone Number: None Primary Care Provider Fax Number: None Admission Date: 10/31/2023 Discharge Date: 11/03/23 PRINCIPAL DIAGNOSIS Pancytopenia (HCC) SECONDARY DIAGNOSES Principal Problem: Pancytopenia (HCC) Resolved Problems: * No resolved hospital problems. * DISCHARGE DISPOSITION Home or Self Care [1] OUTPATIENT FOLLOW UP For appointment details refer to your Patient Appointment Guide. TEST RESULTS PENDING AT DISCHARGE Pending Labs Order Current Status Chromosome Analysis, Hematologic Disorders, Bone Marrow In process Hematopathology In process Bacteria / Jillian Culture, Blood #1 Preliminary result Bacteria / Jillian Culture, Blood #2 Preliminary result Campylobacter Culture, Feces Preliminary result DETAILS OF HOSPITAL STAY REASON FOR ADMISSION Anemia Macrocytic Pancytopenia (HCC) HOSPITAL COURSE Ms. 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 Patient had complaints of petechia involving her lower legs for the last month, worsening bruising,bilateral lower extremity edema (right greater than left), and frequent epistaxis. She had also been having issues with recurrent right groin fluid collection which was drained twice after her mitralvalve repair and was reportedly serous. At her outpatient clinic appointment 10/30, she was noted tohave a new pancytopenia which was significantly reduced since July. She was subsequently referred to the ED. Upon arrival to [facility] ED she was afebrile and hemodynamically stable. CBC showed worsening pancytopenia. She was admitted for further workup and evaluation. Med 1 On the floor, she was given 1u pRBCs for Hgb <7. Hematology and CVS were consulted. She underwent bone marrow biopsy 10/31 which was pending at time of discharge; working differential includes aplastic anemia versus subclinical viral infection per Hematology. GI pathogen panel obtained for diarrhea which was positive for campylobacter. She was started on a 3 day course of azithromycin. She was noted to be low in copper, zinc, and selenium and started on a multivitamin with minerals. Her cytopenias were stable and mildly improved and she was ultimately discharged to complete pancytopenia work up in the outpatient setting with hematology. She was discharged on 11/03/23 in stable condition. MEDICATION CHANGES - Continue to take 1 multivitamin every day (you were deficient in several micronutrients) - Continue to take antibiotic: AZITHROMYCIN once per day until November 03. PATIENT FOLLOW UP APPOINTMENTS - Outpatient CVS surgery (to be scheduled) - PCP appointment; please follow up CBC with differential - Hematology appointment (to be scheduled) CONSULTS ORDERED DURING THIS ADMISSION IP CONSULT TO CARE MANAGEMENT IP CONSULT TO HEMATOLOGY IP CONSULT TO MASSAGE THERAPY IP CONSULT TO CARDIOVASCULAR SURGERY IP CONSULT TO DIETITIAN CONDITION AT DISCHARGE stable Discharge instructions were provided to the patient and caregiver(s). Dong Cancino M.D. Internal Medicine PGY-1 Pager: [phone] documented in this encounter Discharge Instructions * Discharge Instructions* Noemy Chen - 11/01/2023 6:53 AM CDT You were discharged from the [facility] Medicine 1 ([facility]) Service. Please identify this service name if youcall with questions after hospitalization. * Patient Instructions* Nelia Prabhakar R.N. - 11/01/2023 10:15 AM CDT The Senior LinkAge Line?? is a service of the [place] [employer] in partnership with [place]'s Area Agencies on Aging. It is a free service of the [facility] that connects older [place] and their families with the help they need. Call the Senior LinkAge Line?? at: 912.778.4356 M-F, 8am-4:30pm to connect with specialists that are available to assist you with your specific needsor check out their website at [email or web address]://[email or web address] * Attachments The following attachments cannot be sent through Care Everywhere. * Azithromycin (By mouth) ([place] Island[place]) documented in this encounter Medications at Time [...] week after surgery 60 tablet 1 09/07/2022 azithromycin (ZITHROMAX) 500 mg tablet Take 1 tablet (500 mg total) by mouth daily for 1 dose. 1 tablet 11/04/2023 11/05/19 oxyCODONE (ROXICODONE) 5 mg immediate release tabletIndicatio ns:Acute Pain Take 1 tablet (5 mg total) by mouth every 4 (four) hours as needed for moderate pain or score 4-6 of 10 Indication: Acute Pain. 5 tablet 08/11/2023 01/05/20 24 documented as of this encounter Progress Notes * Suman Schumacher M.B.B.S., M.D. - 11/03/2023 2:14 PM CDT I have seen and examined Gladys Zamarripa today and discussed their case in detail with the Medicine 1 team. The plan is for Gladys Zamarripa to discharge from the hospital today. Please see the discharge note of today for details. Gladys is feeling well today. Cell counts are stable. She will follow up with Hematology as an outpatient. For the remainder of the discharge plan, please refer to the discharge summary of today. * Constanza Jean M.D. - 11/02/2023 11:36 AM CDT HEMATOLOGY CONSULT PROGRESS NOTE SUBJECTIVE Interval events: - s/p bone marrow biopsy yesterday afternoon - mildly tachycardic overnight - infectious work up negative (parvovirus IgG positive) - GI pathogen panel positive for Campylobacter - platelets up trending this a.m. to 78 - TSH 4.5 - stable hemoglobin of 8.8 and leukopenia of 2.2 Patient was not seen in person today. OBJECTIVE VITAL SIGNS Temperature: [36.4 ??C-36.8 ??C] 36.8 ??C Resp Rate: [16-18] 17 Blood Pressure: (113-158)/(80-99) 126/86 SpO2: [96 %-100 %] 97 % Flow Rate (L/min): [0 L/min] 0 L/min Pulse Rate: [90-116] 116 Admission Weight: 59.7 kg Current Weight: 59.7 kg PHYSICAL EXAM Patient was not examined in person today. ASSESSMENT / PLAN # Pancytopenia, unclear etiology # Hypoproliferative marrow # Right soleal DVT on Rivaroxaban # Large right groin fluid collection, concern for seroma Ms. Gladys Zamarripa is a 73 y.o. female admitted with new pancytopenia. Fortunately, patient's blood counts are stable this a.m.. Platelets are mildly up trended in hemoglobin and WBCs are stable. Thus far, workup for etiology of patient's pancytopenia has been unrevealing. Infectious workup including tick- borne illnesses, CMV, EBV, parvovirus, and HIV were negative with the exception of positive parvovirus IgG. Nutritional studies are pending. GI pathogen panel demonstrated Campylobacter. However, this would not explain patient's pancytopenia. Hemolysis workup notconsistent with hemolysis. No clear medication changes that could explain pancytopenia. We did obtain a bone marrow biopsy yesterday and we are awaiting final hematopathology read. At this time, we do have concern for possible aplastic anemia but will await bone marrow biopsy results. If patient is stable for dismissal, we can continue to follow patient in Hematology Clinic as an outpatient to address bone marrow biopsy results and continue pancytopenia workup. RECOMMENDATIONS We will follow-up nutritional studies We will follow-up bone marrow biopsy results If patient was dismissing from the hospital, please reach out to the hematology consult Service andwe will help arrange outpatient follow-up. Patient staffed with Dr. Welsh. Thank you for involving us in the care of this patient. Please page the Hematology Consults servicepager ([phone]) with any questions or concerns. Christina Jean MD PGY-2, Internal Medicine Cosigned by Kathleen Welsh M.D., M.S. at 11/02/2023 5:58 PM CDT * Donna Titus - 11/02/2023 9:31 AM CDT [facility] Medicine 1 ([facility]) PROGRESS NOTE SUBJECTIVE No acute events overnight. Reports hip pain is markedly improved, currently a 2/10 and controlled with scheduled tylenol and topicals. No bowel movements since yesterday. Reports some nausea yesterday but none today. Denies abdominal pain, vomiting, fever, chills. I have reviewed the current medication list. OBJECTIVE VITAL SIGNS Temperature: [36.4 ??C-36.8 ??C] 36.8 ??C Resp Rate: [16-18] 17 Blood Pressure: (113-158)/(80-99) 126/86 SpO2: [96 %-100 %] 97 % Flow Rate (L/min): [0 L/min] 0 L/min Pulse Rate: [90-116] 116 PHYSICAL EXAM General: Alert, interactive, not acutely ill. Skin: numerous purple macules scattered in bilateral lower extremities ENT: Hearing grossly intact. Dentition intact. No oral or pharyngeal erythema or lesions noted. Lungs: Clear to auscultation. No wheezes or crackles. Heart: Tachycardic. No murmurs appreciated. 3+ pitting lower extremity edema in bilateral ankles. Leg swelling slightly larger in right than left. Abdomen: Soft, flat, bowel sounds normoactive, nontender, nondistended, no palpable masses or organomegaly. Mental: Mood and affect congruent. Alert and oriented. Attention intact. No evidence of disorganized thinking. 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 DIAGNOSTICS I have personally reviewed the laboratory data and imaging since admission, and in/outs for past 72hours. ASSESSMENT / PLAN Ms. Zamarripa is a 73-year-old female with [facility] with lower extremity petechiae admitted to [facility] Medicine 1 for further workup and management of new pancytopenia. Current pancytopenia workup is largely unrevealing. Her bone marrow biopsy 11/01 complicated by postprocedural bleeding. Repeat Hgb shows stability. Concern that with her DVT and presentation of bleeding, that she may be developing DIC. However DIC panel is unsupportive so less likely. Hematology consulted. Unclear etiology but suspect viral infection vs aplastic anemia. No schistocytes on blood smear, but given anemia and petechiae, will obtain an echocardiogram to evaluate for flow disruptionor thrombus formation. As of 11/01, cytopenia is stable. Per hematology, if she continues to be stable, can continue pancytopenia workup in the outpatient setting; no need to wait for bone marrow biopsy results to discharge. Plan for today: - TTE - Continue to monitor clinically for bleeding - Tentative discharge in next 1-2 days if stable # Pancytopenia, concern for aplastic anemia s/p bone marrow biopsy 10/31 # petechiae - f/u BMB results - hematology, consulted, appreciate recommendations #MVP s/p mitral valve repair 07/2023 #afib on xarelto - TTE 11/01 #Left soleal vein DVT Presented with asymmetric right lower extremity swelling larger than left. Bilateral U/S obtained 11/02/23 which paradoxically showed DVT in the left soleal vein. - continue INFO ANALYST rivaroxaban 20mg # R groin mass suspect seroma She had mitral valve repair 08/07/23 due to prolapsed mitral valve that was c/b recurrent accumulation of serous fluid collection. Ultrasounds performed 10/31 demonstrated large fluid collection, no pseudoaneurysm or AV fistula formation. Most likely seroma formation in setting of femoral access. Will discuss with CVS surgery if drainage inpatient is indicated. Patient has thrombocytopenia and bleeding, so don't believe it will be safe to do it at this moment. - CVS surgery consulted, appreciate recs #R hip tenderness #Trochanteric Bursitis Chronic pain in right hip from trochanteric bursitis for which she has been seen outpatient for. Noacute worsening of symptoms. Pain currently well controlled with scheduled tylenol and topicals - outpatient follow up #Campylobacter PCR+ #Diarrhea, improving - azithromycin 500mg qd for 3 days (11/01-11/03) - campylobacter stool culture pending #Hypokalemia - Replete as needed #Elevated TSH (4.5) - outpatient follow up for workup of possible hypothyroidism CHRONIC CONDITIONS #hyperlipidemia #hypertension #gout #spinal stenosis #osteoarthritis #depression -resume home atorvastatin -resume home bupropion -hold home lisinopril -hold home lasix -continue home gabapentin -continue home calcium supplements -hold home allopurinol Current Activity/Mobility: BMAT Level 4 (Able to stand and walk; needs staff assist if fall risk factors identified) Fall Injury Prevention: I have discussed My Plan for Safe Activity with the patient. Diet: general diet Tubes/lines: PIV VTE prophylaxis: Xarelto Disposition: Home with expected discharge date Surrogate Decision Maker: Spouse, Tamir Zamarripa Stable to discharge criteria (not met): Labs and Tests/procedures/consults Plan discussed with [facility] Medicine 1 ([facility]) Accounts Payables Clerk, Suman Casarez M.B.B.S., who was present during sears portions of the evaluation today. Please page the T Medicine 1 ([facility]) service pager [phone] with any questions. Cosigned by Suman Schumacher M.B.B.S. MSho at 11/02/2023 11:38 AM CDT * Alireza Escalera Pharm.D., R.Ph. - 11/02/2023 9:12 AM CDT Pharmacist Progress Note Reason for admission: 73 yo F admitted from clinic for evaluation of pancytopenia with complaints of petechiae, epistaxis, and easy bruising over the last month. PMH: AF on rivaroxaban, MVR 07/2023, HFrEF (61%), chronic anemia, HLD, HTN, GERD, alcohol use disorder, gout, spinal stenosis, osteoarthritis, anxiety, depression. OBJECTIVE Neuro: Ox3, R hip pain 0-3 Resp: RA CV: hemodynamically stable, occasional tachycardia Neph: Estimated Creatinine Clearance: 94.4 mL/min (A) (by C-G formula based on SCr of 0.5 mg/dL (L)). VTE PPX: rivaroxaban Medication Reconciliation: Held: allopurinol, ASA, carvedilol, lisinopril, Ca, Vit D, Mg, ferrous sulfate Changed: omeprazole -> pantoprazole interchange New: lidoderm patch, AGK cream, azithromycin, acetaminophen ASSESSMENT / PLAN Pancytopenia - work-up ongoing, heme consult -> ?subclinical viral infection vs aplastic anemia,pending, Hgb 8.8 s/p 1 unit RBC yest, WBC 2.2. Campylobacter (+) Stool - day 05/24 azithromycin 500 mg po daily. R Hip pain - lidoderm patch daily, acetaminophen 650 mg po q6hr scheduled, AGK cream bid, pain scores improved. Hx MVR 07/2023 - per chart review, pt to continue ASA 81 mg x 6 months post-surgery. Acute DVT - in a left soleal vein, resumed INFO ANALYST rivaroxaban. Alireza Duke, PharmHomeroD., R.Ph. [phone] * Suman Schumacher M.B.B.S., MTessa. - 11/01/2023 2:30 PM CDT I have independently seen and examined Gladys Zamarripa. I have discussed the history and examination with the medicine team, independently reviewed the salient features, and agree with the findings and plan as documented in Dr. Skelton's and Dr. Landon's admission notes, with the following comments: #1 Pancytopenia (HCC) Ms. Zamarripa is admitted with new pancytopenia. Hematology has been consulted. They recommended somelaboratory studies and a bone marrow biopsy. Of note, right-sided soleal DVT on ultrasound. Continuing home rivaroxaban. We are also evaluating fluid collection in the groin with ultrasound. Please refer to Dr. Skelton's and Dr. Landon's admission notes for additional details about our team's plan of care. Counseling was provided [id number] at bedside regarding the plan of care as stated above. I personally spent over half of a total 75 minutes in counseling and coordination of care as documented above. * Alireza Escalera Pharm.D., R.Ph. - 11/01/2023 9:01 AM CDT Pharmacist Progress Note Reason for admission: 73 yo F admitted from clinic for evaluation of pancytopenia with complaints of petechiae, epistaxis, and easy bruising over the last month. PMH: AF on rivaroxaban, MVR 07/2023, HFrEF (61%), chronic anemia, HLD, HTN, GERD, alcohol use disorder, gout, spinal stenosis, osteoarthritis, anxiety, depression. OBJECTIVE Neuro: Ox3, R hip pain 5-10 Resp: RA CV: mild BP elevation Neph: Estimated Creatinine Clearance: 76.2 mL/min (by C-G formula based on SCr of 0.62 mg/dL). VTE PPX: SCDs (plt 60K) Medication Reconciliation: Held: allopurinol, ASA, carvedilol, lisinopril, Ca, Vit D, Mg, ferrous sulfate, rivaroxaban Changed: omeprazole -> pantoprazole interchange New: lidoderm patch ASSESSMENT / PLAN Pancytopenia - work-up ongoing, heme consult pending, Hgb 6.9 -> planning to transfuse 1 unit RBC, WBC 2.3, holding anticoagulation. R Hip pain - lidoderm patch daily, acetaminophen 650 mg po q4hr prn. Hx MVR 07/2023 - per chart review, pt to continue ASA 81 mg x 6 months post-surgery. Acute DVT - starting heparin high intensity infusion via pharmacist (see note below). Pharmacy Consult -Heparin Infusion with aPTT Management Assessment Nomogram Intensity: High Indication: Deep Vein Thrombosis (DVT) Recent direct oral Factor Xa inhibitor use: Yes; Rivaroxaban Last dose: on 10/29 at 2000 Baseline aPTT(sec): 34 Goal aPTT range: 50 - 80 seconds aPTT Results (Past Day) 10/31/2023 10/31/2023 10:50 PM 10:34 PM aPTT 34 35 Plan: Current dose rate: 18 units/kg/hr Heparin loading dose of 80 units/kg (4800 units) will be administered. Next aPTT level order time (date & time): 10/31 at 2100 Pharmacy will manage the heparin infusion based on the Heparin IV Monitoring by aPTT guidance document in [employer]pert. Alireza Duke Pharm.D., R.Ph. [phone] documented in this encounter H&P Notes * Sharmaine Skelton M.D. - 10/31/2023 9:09 PM CDT T Medicine 1 ([facility]) Admission Note SUBJECTIVE CHIEF COMPLAINT pancytopenia HISTORY OF PRESENT ILLNESS Ms. Gladys Zamarripa is a 73 y.o. female who presents with pancytopenia. Her medical comorbidities include longstanding atrial fibrillation (s/p 45 cardioversions and 2 transcatheter ablations 2018, 2020), mitral valve prolapse with regurgitation status post mitral valve repair in July of 2023, HFrEF (61%), chronic anemia, hyperlipidemia, hypertension, alcohol use disorder, gout, spinal stenosis,osteoarthritis, depression. Patient was seen by her primary care physician today, where she reported feeling fatigued for the past month as well as noticing petechial rash in the bilateral lower extremities and worsening swelling of the lower extremities. Of note, she underwent robotic repair of the mitral valve in July of 2023 that was complicated by increased bleeding that required a right VATS, evacuation of retained hemothorax and control of chest wall bleeding. Postoperatively, she went into atrial fibrillation was started on amiodarone to continue for 1 month. Patient states that following one-week hospitalization for mitral valve repair, she returned home and was at her baseline. That was until she started to note generalized fatigue for the past month. She would have exertional shortness of breath, without chest pain. In addition, for the past couple of weeks she noticed increased bruising across her armsand legs that she attributed to her Xarelto. What concerned her most were the petechiae across her lower extremities that prompted her to present to her primary care physician today where labs were drawn and were notable for pancytopenia. Of note, patient's hospital course for mitral valve repair was complicated by right groin inguinal hematoma that developed the day when she came home from the hospital. This hematoma has become quite bothersome for her, and she has worked with physical therapy. She has undergone 2 fine-needle aspirations of the area ( at the beginning of September, and last ), with fluid reaccumulating shortly after. In the last couple of days, she has noticed increased swelling more in the right leg compared to her left leg. She has been taking daily Lasix since her mitral valve repair, with really no decrease in the swelling. In regards to anticoagulation, she takes and daily aspirin per Cardiology recommendations. She no longer takes amiodarone. In regards to her platelet count, her platelet number was 163 on day of hospital dismissal in 2023. WBC was 9.9 at the time as well. Hemoglobin was 10, with MCV of 94.1 On arrival to the ED, patient's vitals were 133/91, heart rate 91 saturating 100% on room air. Labsnotable for INR 2.5, hemoglobin 7.8 with MCV of 108.9, platelets 70, leukocytes 2.1 with neutropenia, anion gap 17, LFTs unremarkable aside from AST of 64. Check X-ray did not show evidence of opacities. EKG remarkable for T-wave inversion in lateral leads. She was administered 1 g of acetaminophenand transferred to our floor for further workup of weakness and pancytopenia. On arrival to our floor, she was hemodynamically stable and conversing well. She confirms the abovehistory. Patient denies any recent travel, fevers, headache, changes in vision. She was noticed nosebleeds in the past couple of weeks, and in the emergency department was noted to have blood with RUBEN. Last night, she found blood dripping down her right leg but denies any trauma to the leg. I noticed blood in the sclerae of her left eye, but she denies any trauma to the eye. Family history of cancer includes lung cancer in mother, testicular cancer in father, multiple myeloma in her brother, and bladdercancer in another brother. Patient drinks 1 glass of wine a day. Denies exposures to any tics. She lives in [facility] with her . Current Outpatient Medications on File Prior to Encounter: desonide (DESOWEN) 0.05 % cream, APPLY THICK LAYER TOPICALLY TO THE AFFECTED AREA TWICE DAILY FOR 2WEEKS doxycycline hyclate (VIBRAMYCIN) 100 mg capsule, potassium chloride (K-TAB) 20 mEq CR tablet, Take 20 mEq by mouth daily as needed. acetaminophen (TYLENOL) 500 mg tablet, Take 1,000 mg by mouth daily as needed for pain, mild pain or score 1-3 of 10 or fever. OTC allopurinoL (ZYLOPRIM) 300 mg tablet, Take 150 mg by mouth daily. amiodarone (PACERONE) 200 mg tablet, Take 1 tablet (200 mg total) by mouth 2 (two) times a day for 7 days, THEN 1 tablet (200 mg total) daily for 28 days. aspirin 81 mg chewable tablet, Chew 1 tablet (81 mg total) daily. atorvastatin (LIPITOR) 20 mg tablet, Take 20 mg by mouth daily. buPROPion XL (WELLBUTRIN XL) 150 mg 24 hr tablet, Take 150 mg by mouth daily. calcium carbonate 1,500 mg (600 mg calcium) tablet, Take 1 tablet by mouth daily. carvediloL (COREG) 25 mg tablet, Take 12.5 mg by mouth 2 (two) times a day with meals. cyanocobalamin (VITAMIN B12) 1,000 mcg/mL injection, Inject 1,000 mcg intramuscularly every 30 (thirty) days. ferrous sulfate 325 mg (65 mg iron) tablet, Take 325 mg by mouth every other day. furosemide (LASIX) 20 mg tablet, Take 2 tablets (40 mg total) by mouth 2 (two) times a day for 7 days, THEN 1 tablet (20 mg total) 2 (two) times a day for 7 days, THEN 1 tablet (20 mg total) daily for 14 days. Continuation per discretion of PCP.. gabapentin (NEURONTIN) 300 mg capsule, Take 300 mg by mouth 3 (three) times a day. lisinopriL (PRINIVIL,ZESTRIL) 5 mg tablet, Take 1 tablet (5 mg total) by mouth 2 (two) times a day. magnesium oxide (MAG-OX) 400 mg (241.3 mg magnesium) tablet, Take 1 tablet by mouth daily. omega-3 fatty acids-fish oil 300-1,000 mg per capsule, Take 2 g by mouth daily. omeprazole (PriLOSEC) [address] capsule, Take 20 mg by mouth every morning before breakfast. oxyCODONE (ROXICODONE) 5 mg immediate release tablet, Take 1 tablet (5 mg total) by mouth every 4 (four) hours as needed for moderate pain or score 4-6 of 10 Indication: Acute Pain. rivaroxaban (XARELTO) 20 mg tablet, Take 1 tablet (20 mg total) by mouth daily. Okay to start retaking 1 week after surgery sennosides-docusate sodium (SENOKOT-S) 8.6-50 mg per tablet, Take 2 tablets by mouth at bedtime as needed for constipation. triamcinolone (KENALOG) 0.1 % ointment, Apply 1 Application topically as needed for irritation (bump on the back). OBJECTIVE VITAL SIGNS Temperature: [36.8 ??C-37 ??C] 37 ??C Resp Rate: [18] 18 Blood Pressure: (126-133)/(90-91) 133/91 SpO2: [97 %-100 %] 97 % Weight: [59.7 kg] 59.7 kg Pulse Rate: [88-89] 89 PHYSICAL EXAM General: elderly female, does not appear in distress Skin: petechiae present across lower extremities, with bruising present across arms and legs Eyes: subconjunctival hemorrhage of left eye Lymph: No cervical or subclavicular adenopathy. Lungs: Clear to auscultation. No wheezes or crackles. Heart: Regular rate and rhythm. No murmurs appreciated. No lower extremity edema. Abdomen: no splenomegaly, right inguinal elevation present, right dorsalis pedis and posterior tibial artery pulse 3+ Neuro: Cranial nerves II-XII intact. Strength 5/5 in all extremities. Mental: Mood and affect congruent. Alert and oriented. Attention intact. No evidence of disorganized thinking. 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 MSK: right hip tenderness to palpation DIAGNOSTICS I have reviewed the labs from admission. ASSESSMENT / PLAN Ms. Zamarripa is hospitalized on [place] [id number] ([facility]) for evaluation and management of Pancytopenia (HCC). #pancytopenia #petechiae #elevated PT/INR #recent mitral valve repair #atrial fibrillation, on xarelto #right inguinal hematoma Ms. Zamarripa is a 73 year female who presents with a subacute to acute pancytopenia with symptoms ofpetechiae, mucosal bleeding, erythromelalgia, right inguinal hematoma in the setting of recent mitral valve repair. She was had a month of fatigue, and a couple week onset of petechiae and bruising. Since her mitral valve repair, she has had what appears to be a right inguinal hematoma and recent concerning right lower leg swelling with thrombosis high on my differential. As for her pancytopenia, my differential is quite broad but highest on my list currently is an infiltrative process of the marrow such as malignancy (myeloproliferative, myelodysplastic (although myelodysplastic is less likely given fairly acute onset)) especially given her low reticulocyte index. I nfectious processes are also in the differential. Patient's INR, PT and PTT are elevated which are also concerning for DIC/MAHA in the setting of sharing in the setting of a mitral valve. What is puzzling is outside PTT was prolonged, but our PTT lab was normal. Patient's leukopenia would be a little hard though to explain in that setting.Her PLASMIC score is 4 making her low risk for TTP. Nutritional deficiencies are certainly on the differential, but less likely given patient's alcohol use. For now, we will hold all anticoagulation given patient's high bleeding risk. We will obtain Doppler studies of the lower extremities given right inguinal hematoma. We will hold home blood pressure medications given concern for possible impending hemodynamic instability. Hematology and cardiovascular surgery will likely need to be engaged in the a.m.. Below are the studies that will be obtained for thorough workup of the patient's pancytopenia. In addition, patient has exquisite tenderness on palpation of right outer hip that she states is due to bursitis. I can feel a fluctuance on examination, concerning for hematoma. Therefore, we will obtain an ultrasound and hold ac products. Plan: Hematology Studies to obtain: -peripheral smear -reticulocyte count -PT/PTT/INR -DIC panel -LDH -Ferritin and TIBC -Haptoglobin -Uric acid -Vitamin B12 -blood cultures -HIV -EBV -Parvo virus -HCV -CMV -Type and Screen, repeat CBC Other: -hold ASA and Xarelto for now -plan to consult CV surgery and hematology in AM -DVT US bilateral #right hip tenderness -US hip to rule out hematoma #hyperlipidemia #hypertension #gout #spinal stenosis #osteoarthritis #depression -resume home atorvastatin -resume home bupropion -hold home lisinopril -hold home lasix -continue home gabapentin -continue home calcium supplements -hold home allopurinol Diet: NPO pending any studies in the a.m. Tubes/lines: PIV VTE prophylaxis: None given high bleeding risk Code status: Full code Surrogate Decision Maker: Spouse, Elias Zamarripa * Armani Landon M.D. - 10/31/2023 9:07 PM CDT [facility] Medicine 1 ([facility]) Admission Note SUBJECTIVE This is a supervisory note for Dr. Skelton. HISTORY OF PRESENT ILLNESS Ms. Gladys Zamarripa is a 73 y.o. 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 Patient presented to primary care clinic today with complaints o petechia involving her lower legs for the last month, worsening bruising, bilateral lower extremity edema (right greater than left), and frequent epistaxis. She has also been having issues with recurrent right groin fluid collection which was drained twice after her mitral valve repair and was reportedly serous. Labs which show a new pancytopenia, with a white count of 2.5, hemoglobin of 8.2, [place] [address], which is significantly reduced when compared to July. [facility] Upon arrival to [place] ED, she is afebrile and hemodynamically stable. CBC demonstrated a white count of 2.1, hemoglobin of 7.8 with an MCV of 108.9, and a platelet count of 70. PT at outside facility was 2.5 and a PTT was 41. Renal function was at baseline with a mild anion gap of 17, but bicarb normal at 23. AST was mildly elevated to 6.4. Serum protein was low at 5.2. Troponin was checked which was mildly elevated but adynamic. Urinalysis was unremarkable. Chest x-ray was negative for acute change. Looking back, she has been anemic/borderline anemic since at least 2019. Her MCV has been normal atthat time, and it has increase is an acute change. On August 10, her platelet count was 237, although she has been intermittently thrombocytopenic in the past, but seemingly in perioperative periods. New medications after dismissal in July included amiodarone which he completed about a month ago. Has had recurrent issues with postoperative hematoma in her groin. Upon interview, she reports increased fatigue over the last month. For the last 2 weeks she is noticed petechiae of her lower extremities. She has also had increased bleeding as well as intermittent nosebleeds. No unusual exposures. She does have a dog who has had wood ticks on it. Current Outpatient Medications on File Prior to Encounter: desonide (DESOWEN) 0.05 % cream, APPLY THICK LAYER TOPICALLY TO THE AFFECTED AREA TWICE DAILY FOR 2WEEKS doxycycline hyclate (VIBRAMYCIN) 100 mg capsule, potassium chloride (K-TAB) 20 mEq CR tablet, Take 20 mEq by mouth daily as needed. acetaminophen (TYLENOL) 500 mg tablet, Take 1,000 mg by mouth daily as needed for pain, mild pain or score 1-3 of 10 or fever. OTC allopurinoL (ZYLOPRIM) 300 mg tablet, Take 150 mg by mouth daily. amiodarone (PACERONE) 200 mg tablet, Take 1 tablet (200 mg total) by mouth 2 (two) times a day for 7 days, THEN 1 tablet (200 mg total) daily for 28 days. aspirin 81 mg chewable tablet, Chew 1 tablet (81 mg total) daily. atorvastatin (LIPITOR) 20 mg tablet, Take 20 mg by mouth daily. buPROPion XL (WELLBUTRIN XL) 150 mg 24 hr tablet, Take 150 mg by mouth daily. calcium carbonate 1,500 mg (600 mg calcium) tablet, Take 1 tablet by mouth daily. carvediloL (COREG) 25 mg tablet, Take 12.5 mg by mouth 2 (two) times a day with meals. cyanocobalamin (VITAMIN B12) 1,000 mcg/mL injection, Inject 1,000 mcg intramuscularly every 30 (thirty) days. ferrous sulfate 325 mg (65 mg iron) tablet, Take 325 mg by mouth every other day. furosemide (LASIX) 20 mg tablet, Take 2 tablets (40 mg total) by mouth 2 (two) times a day for 7 days, THEN 1 tablet (20 mg total) 2 (two) times a day for 7 days, THEN 1 tablet (20 mg total) daily for 14 days. Continuation per discretion of PCP.. gabapentin (NEURONTIN) 300 mg capsule, Take 300 mg by mouth 3 (three) times a day. lisinopriL (PRINIVIL,ZESTRIL) 5 mg tablet, Take 1 tablet (5 mg total) by mouth 2 (two) times a day. magnesium oxide (MAG-OX) 400 mg (241.3 mg magnesium) tablet, Take 1 tablet by mouth daily. omega-3 fatty acids-fish oil 300-1,000 mg per capsule, Take 2 g by mouth daily. omeprazole (PriLOSEC) [address] capsule, Take 20 mg by mouth every morning before breakfast. oxyCODONE (ROXICODONE) 5 mg immediate release tablet, Take 1 tablet (5 mg total) by mouth every 4 (four) hours as needed for moderate pain or score 4-6 of 10 Indication: Acute Pain. rivaroxaban (XARELTO) 20 mg tablet, Take 1 tablet (20 mg total) by mouth daily. Okay to start retaking 1 week after surgery sennosides-docusate sodium (SENOKOT-S) 8.6-50 mg per tablet, Take 2 tablets by mouth at bedtime as needed for constipation. triamcinolone (KENALOG) 0.1 % ointment, Apply 1 Application topically as needed for irritation (bump on the back). OBJECTIVE VITAL SIGNS Temperature: [36.8 ??C-37 ??C] 37 ??C Resp Rate: [18] 18 Blood Pressure: (126-133)/(90-91) 133/91 SpO2: [97 %-100 %] 97 % Weight: [59.7 kg] 59.7 kg Pulse Rate: [88-89] 89 PHYSICAL EXAM Constitutional General: She is not in acute distress. Appearance: Normal appearance. HENT Head: Comments: No oral ulcers. Some flushing of her cheeks. Small conjunctival hemorrhage on the left Cardiovascular Rate and Rhythm: Normal rate and regular rhythm. Heart sounds: No murmur heard. No friction rub. No gallop. Pulmonary Effort: Pulmonary effort is normal. Breath sounds: Normal breath sounds. No wheezing, rhonchi or rales. Abdominal General: There is no distension. Palpations: Abdomen is soft. Tenderness: There is no abdominal tenderness. Comments: No hepatosplenomegaly Musculoskeletal Comments: Lower extremity edema in the feet, but right greater than left pitting edema at the rightankle. Large fluid collection in the right groin which is firm, nonpulsatile. Skin Comments: Erythromelalgia of the hands. Flushing of the cheeks. Petechiae of the lower extremities as well as purpura. Neurological General: No focal deficit present. Mental Status: She is alert and oriented to person, place, and time. Psychiatric Mood and Affect: Mood normal. Behavior: Behavior normal. DIAGNOSTICS I have reviewed the labs and imaging from admission. ASSESSMENT / PLAN Ms. Zamarripa is a 73-year-old female with history of mitral valve regurgitation status post valvuloplasty in July who presents from clinic where she was found to have lower extremity petechiae in thesetting of newly discovered pancytopenia which has developed since July. The etiology is uncertain, although her MCV is quite elevated which may suggest that there is a reticulocytosis ongoing which would suggest peripheral destruction over marrow suppression. This in conjunction with her prolonged PT/APTT would be concerning for a microangiopathic hemolytic anemia, spec ifically DIC. Currently, her PLASMIC would be 3 to 4 (assuming schistocytes on smear and markers ofhemolysis, which we do not have at this point), but regardless, this would be low risk for TTP. Additionally, the aforementioned coagulopathy would be more suggestive of DIC. At this point, we need further laboratory analysis to support this hypothesis. If we were to diagnose her with DIC, then the following question would be why which I am not certain of at this point. We should get blood cultures and assess for infection. Smear would give information whether this could be APML, although no abnormalities mentioned on outside smear. Additionally, I do wonder if there could be a relation with her new mechanical valve. The only new medication she h as been taking appears to be amiodarone, which would not be commonly associated with this. Further management will be dictated by further workup. It is interesting to that she has this right groin lesion with asymmetric right greater than left lower extremity edema. This is fluctuant and seems to be a hematoma at the site vascular access. It is quite impressive and we may need to engage IR after imaging is completed. Reassuringly, lower extremity pulse is strong on the right. 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 Not necessary for MV at this point but continues on forA fib. Will need to decide on ASA in AM - Consult Hematology and CV surgery in the AM - Hold furosemide and allopurinol, no longer on amiodarone Addendum 0300: At this point, smear has returned without schistocytes or other diagnostic abnormality. Prothrombin time is prolonged although APTT is not. Further DIC panel is pending, but is less concerning at this point. Reticulocyte index is suggestive of hypo proliferation, although her reticulocyte count has increased since check a few months prior. Her LDH is elevated to 337. At this point,the etiology of her pancytopenia remains unclear. We will await further studies. Diet: NPO at midnight Tubes/lines: PIV VTE prophylaxis: SCD's (technically still therapeutically anticoagulated) Code status: Prior documented in this encounter Procedure Notes * Suman Newby R.N. - 11/01/2023 1:55 PM CDTAssociated Order(s): Biopsy Bone Marrow, Unsedated Post-Procedure Diagnose(s): Pancytopenia (HCC) Biopsy Bone Marrow, Unsedated Performed by: Suman Newby R.N. Authorized by: Khang Smith M.D., Ph.D., MTessa., Ph.D. Care team members present 1. Suman Newby R.N. 2. Armani Larios PROCEDURE DETAILS Procedure: Bone Marrow biopsy and Bone Marrow aspiration Bone marrow biopsy Laterality: Right Location of biopsy: Posterior iliac crest Patient position: Side lying Type of Needle: Manual bone marrow biopsy needle Findings: Slides obtained and aspirate obtained with spicules noted Bone marrow aspiration Aspirate volume (mL): 20 CONSENT Consent obtained: written (Risks, benefits and alternatives were discussed and a written Informed Consent was obtained. Please see Informed Consent form for further details.) UNIVERSAL PROTOCOL All relevant documentation and testing were reviewed and available. All required blood products, implants, devices and or special equipment were made available as applicable. Pre-procedure verification was conducted and the correct site was marked if required. A fire risk assessment was done as applicable. The procedural time-out to verify correct patient, correct side/site, and procedure was conducted prior to performing the procedure and confirmed in a procedural pause. PRE-PROCEDURE DETAILS Appropriate hand hygiene, gown, cap, mask, protective eyewear, sterile gloves, skin preparation, sterile drape, and strict aseptic technique were utilized as applicable for the procedure.: yes Site preparation: chlorhexidine SEDATION / ANESTHESIA Anesthesia method: local infiltration Local infiltrate type: lidocaine POST-PROCEDURE DETAILS Procedure completed successfully: yes Procedure tolorated: Well Post procedure pain scale: 4/10 Complications: no apparent complications Post-procedure instructions: Post-procedure activity instructions provided COMMENTS 200 mg 1 % lidocaine administered SQ Pressure dressing applied Pamphlet [id number] given to patient documented in this encounter Consult Notes * Raf Oviedo, ANTONIO, LD - 11/03/2023 12:24 PM CDTAssociated Order(s): IP CONSULT TO DIETITIAN Clinical Nutrition: Initial Assessment Clinical Nutrition was requested to evaluate patient for assessment of nutritional status, vitamin deficiency. Ms. Zamarripa is a 73 y.o. female admitted for Pancytopenia ([facility]). Pmhx includes: Past Medical History: Diagnosis Date Acute Gastric Ulcer Without Hemorrhage Or Perforation 10/16/2009 Anxiety Generalized Disorder 02-03-2021 Atrial Fibrillation Unspecified ([facility]) 06-05-2016 Atypical Atrial Flutter ([facility]) Cardiomyopathy Stress Induced - 05/05/2021 EKG with T-wave inversion and new decrement in LVEF to 25% Depressive Disorder 02-03-2021 Gastroesophageal Reflux Disease Without Esophagitis Hyperlipidemia Hypertension NOS 2001 Melanoma Skin ([facility]) 03-05-2021 Osteopenia 06-05-2015 Other Injury Of Unspecified Body Region [id number] Fall on left knee Pain Cervical 08/23/2006 PreDiabetes Skin Cancer (Primary) NOS 11-04-2019 Completed visit with patient today as part of face to face care. Current Nutrition (since admission): Reports she is eating well. She is going to work to increase her intake of selenium, copper and zinc from natural sources such as brazil nuts. She is going to continue her usual fruit and vegetable intake. She is going to continue her yogurt and fruit in the mornings and nuts for snacks. Nutrition history: Patient states she eats pretty well prior to admission. She eats 2 meals per dayand some snacks. Typically yogurt, fruit, nuts, steak, ground beef, and brats. She does not like chicken or turkey.She prefers to not eat processed food items. Percentage of Meals Eaten for the past 72 hrs: Percent Meals Eaten (%) 11/02/23 1300 100 11/02/23 0900 100 11/01/23 1621 100 Current nutrition orders: Dietary Orders (From admission, onward) Start Ordered 11/01/23 1500 Adult Diet Regular Diet effective now Question: Diet texture: Answer: Regular 11/01/23 1594 Food Allergies/Intolerances: No Known Allergies Chewing/Swallowing Issues: None per patient Medications: Scheduled Meds:acetaminophen, 650 mg, oral, Q6H goiganawvhhtu-[id number]-[id number] in Lipoderm, 1 g, topical, BID atorvastatin, 20 mg, oral, Daily azithromycin, 500 mg, oral, Daily buPROPion XL, 150 mg, oral, Daily calcium carbonate, 500 mg of calcium, oral, Daily with breakfast gabapentin, 300 mg, oral, TID lidocaine (PF), 20 mL, infiltration, Once lidocaine, 1 patch, transdermal, Daily lidocaine, 1 patch, transdermal, Daily melatonin, 5 mg, oral, Daily at bedtime pantoprazole, 40 mg, oral, Daily before breakfast multivitamin/mineral-chewable, 1 tablet, oral, Daily rivaroxaban, 20 mg, oral, Daily with dinner sodium chloride, 3 mL, intravenous, Q12H TAISHA Continuous Infusions: PRN Meds:. sodium chloride sodium chloride Labs: Pertinent Labs: Last 3 results Lab Units 11/03/23 0900 11/02/23 0654 10/31/23 2251 10/31/23 1634 SODIUM P mmol/L -- -- -- 135 SODIUM mmol/L 134* 136 -- -- POTASSIUM mmol/L 3.8 3.3* -- -- POTASSIUM P mmol/L -- -- -- 4.2 CHLORIDE P mmol/L -- -- -- 95* CHLORIDE mmol/L 96* 95* -- -- BUN P mg/dL -- -- -- 7 BUN mg/dL 7 6 -- -- CREATININE mg/dL 0.51* 0.50* -- 0.62 CALCIUM P mg/dL -- -- -- 8.4* CALCIUM mg/dL 8.5* 8.4* -- -- TRIGLYCERIDES mg/dL -- -- 53 -- Recent Labs Lab Units 11/02/23 1533 11/01/23 1235 VITAMIN B 12 ng/L -- 583 FOLATE mcg/L 8.8 -- SELENIUM S P mcg/L -- 97* COPPER2 mcg/dL -- 57* ZINC1 mcg/dL -- 44* Edema:Edema: Right lower extremity, Left lower extremity, , ,Right Lower Extremity Edema: +1 Pit 2mm, slight indentation, barely perceptible,Left Lower Extremity Edema: +1 Pit 2mm, slight indentation, barely perceptible, , I/Os: Net IO Since Admission: 2,005 mL [11/03/23 1224] Integumentary/Wounds: Lines/Drains/Airways Wound Duration Wound 08/31/22 Incision Spine Lower;Medial 428 days Scope Sites Chest 88 days Wound 08/07/23 Incision Neck Right;Anterior 88 days Wound 08/07/23 Puncture Groin Right 88 days Wound 08/07/23 Pretibial Left 87 days Wound 11/01/23 Other (comment) Groin Right 2 days Wound 11/01/23 Other (comment) Toe 1st, great Anterior;Left 2 days Wound 11/01/23 Other (comment) Wrist Left 2 days GI Function: Last BM Date: 11/02/23, [place] Stool Chart: Type 3: Like a sausage but with cracks onthe surface, Anthropometrics: Height: 159.4 cm Admission Weight: 59.7 kg (10/31/2023) Current Weight: 59.7 kg 3.5% loss in 3 months. Wt Readings from Last 15 Encounters: 11/01/23 59.7 kg 08/11/23 65.8 kg 08/04/23 62.1 kg 08/04/23 62.1 kg 08/03/23 61.9 kg 05/01/23 59 kg 05/01/23 60.1 kg 04/24/23 61.4 kg 01/04/23 62.8 kg 08/31/22 57 kg 08/22/22 57.2 kg 05/11/22 59.9 kg Estimated Needs: Total Calorie Needs: 2020-5771 calories/day Method to Estimate Energy Needs: kcal/kg (25-30 kcal/kg) Weight Used for Equation Calculations: 59.7 kg Total Protein Needs: 60 - 72 grams/day (Method to Estimate Protein Needs (g/kg): 1 - 1.2 gm/kg) Weight Used to Calculate Protein Needs (Kg): 59.7 kg Nutrition Diagnosis: Altered nutrition-related laboratory values related to decreased ability to consume sufficient vitamin/minerals as evidenced by lab values less than goal Nutrition Diagnosis Reassessment: Ongoing Malnutrition Criteria: Malnutrition Assessment: Malnutrition criteria not met Nutrition Intervention: Multivitamin with minerals Encourage adequate intake Diet education on vitamins/minerals Recommendations: Multivitamin with minerals Monitoring/Evaluation: Nutrition parameter to monitor: Meals/Supplement Intake Desired Outcome: Consume adequate nutrition orally Patient Goal(s): Consume 75-100% of 3 meals daily Clinical Nutrition will continue to follow. For questions about patient's nutritional care please contact pager [phone] on weekdays 07:30-16:00 or [phone] on weekends/holidays ([facility]). * Kathleen Welsh M.D., M.S. - 11/01/2023 2:15 PM CDT This is an attestation note. I saw and evaluated Ms. Zamarripa on November 01, 2023, participating in thekey portions of the in-patient Hematology Consult service. I reviewed Dr. Constanza Jean's note anddiscussed the findings and plan. In addition, I would like to add that Ms. Zamarripa is 73-year-old female with new onset pancytopenia. She underwent mitral valvuloplasty for mitral valve prolapse/regurgitation in July 2023. On 08/03/2023, prior to the procedure, her CBC was within the normal reference range (hemoglobin 12.1 g/dL, leukocytes 4800/cu mm, and platelets 289825/cu mm). Postprocedure, she was mildly anemic and thrombocytopenic, but these improved during the hospitalization common at t he time of discharge on 08/11/2023, her hemoglobin was 10.1 g/dL, leukocyte count 9900/cu mm, and platelets 237,000/cu mm. Ms. Zamarripa was on amiodarone till mid August 2023, but has been off it. Her other new medication has been rivaroxaban. Ms. Zamarripa was seen by her primary care provider yesterday for increased right leg swelling, epistaxis, easy bruisability and rash in her lower extremity. In addition, she complained of shortness ofbreath on exertion. CBC performed yesterday revealed that she was pancytopenic. CBC from today reveals hemoglobin 6.9 g/dL with MCV 107.4 FL, leukocytes 2300/cu mm and platelets 65637/cu mm. Her absolute neutrophil count was 1500/cu mm. Her reticulocyte count was low for the degree of anemia (72,500/cu mm). Her creatinine and hepatic panel were within the normal reference range. Her iron studies are consistent with chronic disease/inflammation. Her vitamin B12 is low normal at 381 ng/L.. Her LDH was elevated at 337 Unit/L, but her haptoglobin was low normal at 33 mg/dL. We are awaiting the results of trace minerals (i.e., copper, selenium, zinc). The etiology of Ms. Zamarripa's new onset pancytopenia is unclear, but the differential includes a subclinical viral infection versus aplastic anemia. We have recommended a bone marrow biopsy for further evaluation, and have gone over the procedure in detail and rationale for obtaining it. Ms. Zamarripa is comfortable to proceed with bone marrow biopsy to be performed under local anesthetic, but without sedation. We will make arrangements for the same. * Kary Wahl P.A.-C. - 11/01/2023 12:13 PM CDTAssociated Order(s): IP CONSULT TO CARDIOVASCULAR SURGERY SUBJECTIVE Chief Complaint: Mass, right groin History of present illness: Cardiovascular Surgery was consulted to see by HIM for evaluation and treatment of a right groin seroma. Ms. Zamarripa is a 73 yo female with a history of atrial fibrillation, hypertension and hyperlipidemia who is now s/p robotic mitral valve repair on 08/07/2023 due to a prolapsed mitral valve. Her postoperative course was complicated by a right hemothorax and chest wall bleeding that required a right VATS procedure. She also had atrial fibrillation postoperatively and was treated with amiodarone. She was discharged on 08/11/23. Ms. Zamarripa reports that, overall, her recovery from her mitral valve repair has gone well.She has had a recurrent accumulation of serous fluid collection in her right groin. She has had it drained twice in the outpatient setting and reports that straw-colored fluid is evacuated. The mass is non-painful. Ms. Zamarripa also reports that she has developed a new petechial rash which is apparent especially over the lower extremities. She has denied fevers. She reports occasional night sweats which she experienced prior to her surgery as well. She has also reported right lower extremity swelling. An US has been ordered. She has been restarted on her home Xarelto. Inpatient Medications: atorvastatin, 20 mg, oral, Daily buPROPion XL, 150 mg, oral, Daily calcium carbonate, 500 mg of calcium, oral, Daily with breakfast gabapentin, 300 mg, oral, TID lidocaine (PF), 20 mL, infiltration, Once lidocaine, 1 patch, transdermal, Daily melatonin, 5 mg, oral, Daily at bedtime pantoprazole, 40 mg, oral, Daily before breakfast sennosides-docusate sodium, 1 tablet, oral, BID sodium chloride, 3 mL, intravenous, Q12H TAISHA Outpatient Medications: No current facility-administered medications on file prior to encounter. Current Outpatient Medications on File Prior to Encounter Medication Sig potassium chloride (K-TAB) 20 mEq CR tablet Take 20 mEq by mouth daily as needed. 1 tablet daily asneeded with furosemide for wt increases of 3lb/day or 5lbs/week or increased LE edema [DISCONTINUED] desonide (DESOWEN) 0.05 % cream APPLY THICK LAYER TOPICALLY TO THE AFFECTED AREA TWICE DAILY FOR 2 WEEKS [DISCONTINUED] doxycycline hyclate (VIBRAMYCIN) 100 mg capsule acetaminophen (TYLENOL) 500 mg tablet Take 500 mg by mouth every 8 (eight) hours as needed for pain. OTC allopurinoL (ZYLOPRIM) 300 mg tablet Take 150 mg by mouth daily. amiodarone (PACERONE) 200 mg tablet Take 1 tablet (200 mg total) by mouth 2 (two) times a day for 7days, THEN 1 tablet (200 mg total) daily for 28 days. (Patient not taking: Reported on 11/01/2023) aspirin 81 mg chewable tablet Chew 1 [...] (two) times a day with meals. cholecalciferol (Vitamin D3) 50 mcg (2,000 Unit) tablet Take 50 mcg by mouth daily. cyanocobalamin (VITAMIN B12) 1,000 mcg/mL injection Inject 1,000 mcg intramuscularly every 30 (thirty) days. ferrous sulfate 325 mg (65 mg iron) tablet Take 325 mg by mouth 3 (three) times a week. furosemide (LASIX) 20 mg tablet Take 2 tablets (40 mg total) by mouth 2 (two) times a day for 7 days, THEN 1 tablet (20 mg total) 2 (two) times a day for 7 days, THEN 1 tablet (20 mg total) daily for14 days. Continuation per discretion of PCP.. (Patient taking differently: 1 tablet daily as neededfor wt increases of 3lb/day or 5lbs/week or increased LE edema) gabapentin (NEURONTIN) 300 mg capsule Take 300 mg by mouth 3 (three) times a day. lisinopriL (PRINIVIL,ZESTRIL) 5 mg tablet Take 1 tablet (5 mg total) by mouth 2 (two) times a day. magnesium oxide (MAG-OX) 400 mg (241.3 mg magnesium) tablet Take 1 tablet by mouth daily. omeprazole (PriLOSEC) [address] capsule Take 20 mg by mouth every morning before breakfast. oxyCODONE (ROXICODONE) 5 mg immediate release tablet Take 1 tablet (5 mg total) by mouth every 4 (four) hours as needed for moderate pain or score 4-6 of 10 Indication: Acute Pain. rivaroxaban (XARELTO) 20 mg tablet Take 1 tablet (20 mg total) by mouth daily. Okay to start retaking 1 week after surgery (Patient taking differently: Take 20 mg by mouth daily with dinner. Okay to start retaking 1 week after surgery) [DISCONTINUED] omega-3 fatty acids-fish oil 300-1,000 mg per capsule Take 2 g by mouth daily. [DISCONTINUED] sennosides-docusate sodium (SENOKOT-S) 8.6-50 mg per tablet Take 2 tablets by mouth at bedtime as needed for constipation. [DISCONTINUED] triamcinolone (KENALOG) 0.1 % ointment Apply 1 Application topically as needed for irritation (bump on the back). Allergies: No Known Allergies Past Medical History: Past Medical History: Diagnosis Date Acute Gastric Ulcer Without Hemorrhage Or Perforation 10/16/2009 Anxiety Generalized Disorder 02-03-2021 Atrial Fibrillation Unspecified (HCC) 06-05-2016 Atypical Atrial Flutter (HCC) Cardiomyopathy Stress Induced - 05/05/2021 EKG with T-wave inversion and new decrement in LVEF to 25% Depressive Disorder 02-03-2021 Gastroesophageal Reflux Disease Without Esophagitis Hyperlipidemia Hypertension NOS 2001 Melanoma Skin (HCC) 03-05-2021 Osteopenia 06-05-2015 Other Injury Of Unspecified Body Region [id number] Fall on left knee Pain Cervical 08/23/2006 PreDiabetes Skin Cancer (Primary) NOS 11-04-2019 Past Surgical History: Past Surgical History: Procedure Laterality Date APPENDECTOMY 2020 BREAST SURGERY 1996 BUNIONECTOMY Bilateral both feet x2 on both feet CATH ANGIOGRAM N/A 08/04/2023 Procedure: CORONARY ANGIOGRAPHY; Surgeon: Rosa Justice M.D.; Location: [facility] CCL SECTION 1979&1982 DECOMPRESSION POSTERIOR LUMBAR AND [...] CARCINOMA EXCISION 2023 Left leg in 2023 Past Social History: Social History Tobacco Use Smoking status: Former Current packs/day: 0.00 Types: Cigarettes Start date: 10/03/1966 Quit date: 03/05/1974 Years since quittin.6 Smokeless tobacco: Never Vaping Use Vaping status: never used Substance Use Topics Alcohol use: Yes Alcohol/week: 10.0 standard drinks of alcohol Types: 10 Glasses of wine per week Drug use: Never OBJECTIVE PHYSICAL EXAM Extremities: Right groin mass with approximate diameter of 3 cm. Non-fluctuant. No erythema at site. RLE noticeably swollen compared to left. Petechiae over both lower extremities. ASSESSMENT / PLAN Diagnoses: #1 Right groin mass #2 Pancytopenia #3 Petechial rash Ms. Zamarripa is a 73 yo female s/p robotic mitral MVR who presents with a recurrent right groin mass. Based on her description of the fluid that has been twice evacuated from the mass, I suspect it ashleigh seroma and will require drainage prior to leaving the hospital. There is likely not a connection between her pancytopenia and the presence of this seroma. Recommendations: Follow results of right groin US to assess for pseudoaneurysm Continue thrombocytopenia work-up Follow results of lower extremity US to evaluate for DVT This consult will be staffed by Dr. Aguayo Billin minutes in provider care coordination * Constanza Jean M.D. - 11/01/2023 8:01 AM CDTAssociated Order(s): IP CONSULT TO HEMATOLOGY HEMATOLOGY CONSULT NOTE SUBJECTIVE REASON FOR CONSULT Pancytopenia HISTORY OF PRESENT ILLNESS Ms. Gladys Zamarripa is a 73 y.o. female admitted to the hospital from primary care clinic today with petechiae and new pancytopenia. 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 Per chart review, patient presented to her PCP today with complaints of petechiae, epistaxis, and easy bruising over the last month. Laboratory assessment demonstrates pancytopenia which is new (previously normal in July). Thus, patient was admitted to the Medicine 1 service for further evaluationand management. This morning, patient is anemic with a hemoglobin of 6.9. Upon chart review, she has a longstandinghistory of normocytic anemia with baseline hemoglobin 8-10. Additionally, her MCV is elevated todayto 107.4. Patient also has thrombocytopenia with a platelet count of 60 (237 in july) in addition to a new leukocytosis with WBCs of 2.3 (lymphocytes 0.69 and neutrophils 1.38). Iron studies are notconsistent with iron-deficiency anemia. Ferritin is elevated at 1019. Patient also has coagulopathywith an INR of 2.5 and aPTT of 27. Bilirubin 0.3 with LFTs wnl. Peripheral smear shows no schistocytes or platelet clumping. LDH is mildly elevated at 337 and haptoglobin is pending. CALEB is negative. Patient's reticulocyte index is 1.02 consistent with hypoproliferative marrow. Primary team has been obtaining an infectious workup (including HIV, EBV, parvovirus, HCV, CMV, tick born illnesses and blood cultures) which is pending. On interview, patient is overall feeling well. She endorses night sweats, increasing ecchymosis, and profound fatigue over the last few months. She notes that she occasionally will wake up so soaked in sweat she has to lay a towel down on her bed. This has been decreasing in frequency recently. Shedenies any weight loss or fevers. She denies any pain, nausea, or vomiting. She does live in [place] but denies any tick exposure (has not been active due to right leg pain since surgery in July).Has no other concerns. Drinks 1 glass of wine daily. Denies any bleeding with the exception of epistaxis.. Appreciated petechiae that appears over the last few days. Also endorses swelling in her right leg that worsened a few days ago. She denies any history of PE or DVT. Complaint with her blood thinner. Takes the rivaroxaban after dinner (her largest meal of the day) with no recent missed doses. No recent travel. She did have right femoral accesswith her valvuloplasty. In regards to medication history, only medication added in July was amiodarone. Patient discontinued this at the end of August. Has been on rivaroxaban for a prolonged period of time. She also was diagnosed with C diff in the emergency department after presenting with hypotension about 6 weeks ago.She took a course of oral vancomycin with improvement in her diarrhea. Today, she endorsed 4 episodes of diarrhea. None prior to admission. OBJECTIVE VITAL SIGNS Temperature: [36.6 ??C-37 ??C] 36.6 ??C Heart Rate: [96-100] 96 Resp Rate: [18-19] 18 Blood Pressure: (126-160)/(89-99) 154/96 SpO2: [97 %-100 %] 100 % Pulse Rate: [88-100] 92 Admission Weight: 59.7 kg Current Weight: 59.7 kg PHYSICAL EXAM General: Woman, sitting up in chair, no acute distress HEENT: Head normocephalic and atraumatic. Pupils equal. No conjunctival icterus. Moist oral mucosa. Cardiovascular: S1 and S2, soft systolic murmur, skin warm and well perfused to touch. Lower extremity edema (R >L). Pulmonary: Normal work of breathing on room air. Equal breath sounds bilaterally. No crackles or wheezes. Abdomen: Soft, nontender, nondistended MSK: Scattered ecchymosis. Petechiae over bilateral lower extremity. Neuro: Alert and oriented. Mentating appropriately. Moves extremities spontaneously. 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 Gladys Zamarripa is a 73 y.o. female admitted to the hospital from primary care clinic today with petechiae and new pancytopenia. Since July, patient has developed pancytopenia. Previously, she had chronic anemia with a baselinehemoglobin between 8-10. There are no new medication changes that are associated with pancytopenia.After patient's mitral valve surgery, she was briefly on amiodarone which was discontinued at the end of August. She has also been on allopurinol for a number of years. In rare cases, amiodarone and allopurinol can be associated with pancytopenia. Initial evaluation for pancytopenia has been unrevealing. Haptoglobin is low normal, LDH is mildly elevated, and fibrinogen is mildly decreased. However, overall clinical picture does not appear consistent with hemolysis. There is also no evidence of schistocytes on peripheral blood smear. Given the acute onset of her pancytopenia, this is less likely to be a hematologic malignancy. Additionally,there was no evidence of blasts on CBC with differential. Patient's reticulocyte count and index issupportive of a hypocellular bone marrow. Given the acute onset of patient's pancytopenia, agree with workup to rule out infectious etiologies. We would also recommend obtaining some initial labs to a ssess for nutritional deficiencies and hypothyroidism. In the meantime, we would like to obtain a bone marrow biopsy to further evaluate for cause of patient's pancytopenia and possible aplastic anemia. We discussed bone marrow biopsy with patient at bedside. She was agreeable to procedure. We will place order and follow results. Finally, patient was diagnosed with a right-sided soleal DVT. She has been compliant with her rivaroxaban and taking as prescribed with her dinner (largest meal of the day). Of note, she did have right femoral access with her valvuloplasty and ultrasound demonstrates a large right fluid collection in the groin. At this time, we would recommend she continue on her prior to arrival rivaroxaban 20 mg with dinner for management of her DVT. RECOMMENDATIONS 1. Please obtain zinc, copper, folate, B12, MMA, selenium levels 2. Please obtain TSH 3. We will follow up results of DIC panel 5. Please obtain bone marrow biopsy (we have placed order) 6. We will follow up infectious studies 7. Continue INFO ANALYST Rivaroxaban 20 mg daily for DVT management Patient staffed with Dr. Welsh. Thank you for involving us in the care of this patient. Please page the Hematology Consults servicepager ([phone]) with any questions or concerns. Christina Jean MD PGY-2. Internal Medicine Cosigned by Kathleen Welsh M.D., M.S. at 11/01/2023 5:59 PM CDT * Nelia Prabhakar, R.N. - 11/01/2023 7:58 AM CDTAssociated Order(s): IP CONSULT TO CARE MANAGEMENT Discharge Planning Assessment SUBJECTIVE Assessment Information Referral Source: Early Screen for Discharge Planning Referral Name: [id number] Previous assessment done on: 08/09/23 Previous assessment done by: KAM Keller Primary Language: [place] Wire Frame Lamp Shade Maker Services Used: No Person(s) present during interview: Person(s) Present During Interview: patient History of Present Illness #1 Pancytopenia (HCC) Social History Citizenship: [place] Citizen Resident Status: [place] Res[place] Marital Status: Family / Household: Support System: spouse Primary Caregiver: self Finance/Insurance Primary insurance: MEDICARE A AND B Secondary insurance: ibeatyou benefits: No Advance Directives Legal Decision Maker: Self Advance Directives: Power of Second Rigger for health care Advance Directives Status: Not Activated OBJECTIVE Baseline Functional Status Baseline Activities of Daily Living Mobility: Requires aide of device, Modified independent Dressing: Independent Feeding: Independent Bathing: Independent Grooming: Independent Toileting: Independent Behavior: Appropriate, Pleasant, Calm, Cooperative, Oriented Communication: Can write, Talks, Understands speaking, Understands [place], Reads Shopping: Independent Medication Management: Independent Housekeeping: Needs assistance Meal Prep: Independent Assistive Devices: Hearing aid(s), Cane, Tub/shower chair/bench, Walker - front wheeled, Walker - four wheeled Transportation: Independent to drive Managing Finances: Independent Baseline Services/Resources Primary care clinic and provider: Dr. Christine Rodriguez MD. Additional Resources: None Anticipated Needs Functional Status: Transportation use (drive car, use taxi/bus), Housekeeping, Shopping, Meal preparation Assistive Devices: None Anticipated Modifications to the Patient's Home: None Transportation Needs: Support from family Does the patient need discharge transport arranged?: No Ride and Caregiver Arranged: Yes Anticipated Discharge Destination: Home or Self Care ASSESSMENT / PLAN Assessment: The safety pin assembling machine operator met with Gladys Zamarripa to discuss her current hospitalization and home going needs. The patient was unaccompanied. The patient was a reliable historian. The role of safety pin assembling machine operator was reviewed. The patient reviewed her prior level of care and support system. The patient receives support from her . The patient described her living environment as a home with bedroom and bathroom on same floor withlevel entry. Housekeeping, grocery shopping, meal prep, and other household responsibilities have previously been completed by patient and patient's . safety pin assembling machine operator discussed the patient's potential needs at dismissal based on their home setting, previous needs and responsibilities, homebound status, and relevant assessments with the patient. The patient will be safe and supported to return home with spouse/S.O. when medically ready. Support will be provided by the patient's , Elias. The patient demonstrated understanding when discussing her home going plans and anticipated needs. Gladys shares that he lives with her in a multilevel home with level entry. She is able to live on the main floor if needed. Prior to this hospitalization she was quite independent with ADL/IADLs only needing some assistance with housekeeping. She uses a walker and cane for safe mobility due t o leg pain. She does not have any home services such as HHC or home oxygen, but does attend outpatient physical therapy 1x per week. She does not have any concerns about returning home at this time. She would like to continue working with her outpatient physical therapist and has requested a referral for this. Her will provide transportation at the time of discharge. At this time, the care team has not identified any skilled post-hospital discharge care needs that require the assistance of the Care Management Team. After reviewing the patient's chart and meeting with the patient, the safety pin assembling machine operator deemed the LACE+/readmission questions were not necessary. The patient reports understanding that she will dismiss from the hospital when medically stable. Pending hospital course and medical readiness, no barriers to dismissal have been identified at this time. Plan: The patient agrees with the following plan. Patient's anticipated discharge disposition is: Home to Self Care Transportation upon dismissal will be provided by family--Elias . safety pin assembling machine operator recommended home delivery of groceries and reaching out to family, friends, and neighbors for assistance. safety pin assembling machine operator provided information regarding the dismissal process and the Senior Linkage Line ([place] [employer] on [employer]ging) handout. safety pin assembling machine operator placed or requested the following hospital-based consult orders and/or referrals: None. safety pin assembling machine operator will continue to assess for homegoing needs with the interdisciplinary team. safety pin assembling machine operator encouraged the patient to reach out with any questions/concerns. Signed by: Alcon Prabhakar R.N. 11/01/2023 documented in this encounter Nursing Notes * Mamie Ambrosio R.N. - 11/03/2023 2:25 PM CDT The patient discharged this afternoon home self care with providing transportation. AVS discussed at bedside with patient and . PIV removed. Electronically signed by: Mamie Ambrosio R.N. 11/03/23 2:38 PM CDT documented in this encounter ED Notes * Jacob Loja M.D. - 10/31/2023 8:42 PM CDT SUBJECTIVE CHIEF COMPLAINT/REASON FOR VISIT Abnormal Lab HISTORY OF PRESENT ILLNESS Mrs. Zamarripa is a 73-year-old female AFib on Xarelto, Mitral valve repair 07/2023, HF, HTN, HLD, and spinal stenosis who presents to the [facility] ED for abnormal lab findings following primary care clinicvisit today. Patient reports that over the past month or so she has noticed a new petechial rash inher bilateral lower extremities as well as worsening swelling R>L lower extremities in the past few days. She did tried two doses of her as needed Lasix without relief. Additionally, patient reports easy bruising and bleeding including a small wound over her posterior right calf that was slow tostop bleeding yesterday. At her primary care office, labs were drawn demonstrating pancytopenia andthe patient was subsequently sent to [facility] ED for further evaluation. REVIEW OF SYSTEMS Constitutional: Negative for chills and fever. HENT: Negative for congestion and rhinorrhea. Respiratory: Negative for cough and shortness of breath. Cardiovascular: Positive for leg swelling. Negative for chest pain. Gastrointestinal: Negative for abdominal pain, blood in stool, constipation, diarrhea, nausea and vomiting. Genitourinary: Negative for dysuria and urgency. Musculoskeletal: Negative for extremity pain. Skin: Positive for rash (Petichial rash bilateral lower extremities). Neurological: Negative for weakness and numbness. OBJECTIVE Initial Vitals Temperature 10/31/23 1607 36.8 ??C Pulse Rate 10/31/23 1607 88 Heart Rate -- Resp Rate 10/31/23 1607 18 Blood Pressure 10/31/23 1607 126/90 SpO2 10/31/23 1607 100 % Pain Score 10/31/23 1934 7 PHYSICAL EXAMINATION HENT: Head: Normocephalic and atraumatic. Eyes: EOM are normal. Cardiovascular: Normal rate, regular rhythm and normal heart sounds. Pulmonary/Chest: Effort normal and breath sounds normal. No respiratory distress. Abdominal: Soft. exhibits no distension. There is no abdominal tenderness. Musculoskeletal: General: No tenderness or deformity. Neurological: Alert and oriented to person, place, and time. Skin: Skin is warm and dry. Petechiae (Bilateral LEs) noted. ASSESSMENT/PLAN Mrs. Zamarripa is a 73-year-old female AFib on Xarelto, Mitral valve repair 07/2023, HF, HTN, HLD, and spinal stenosis who presents to the [facility] ED for pancytopenia in the setting of bilateral lower extremity petechiae and easy bruising/bleeding. Laboratory evaluation demonstrates pancytopenia. Patient remains stable, we will plan to admit patient to medicine for further workup and evaluation for theunderlying cause of her findings. ED Course as of 10/31/232136Oct 31, 20232127 Hemoglobin(!): 7.8 2127 Platelet Count(!): 70 2127 Leukocytes(!): 2.1 Pancytopenia 2128 2H Delta Interp: Not Changing Not changing 2129 ECG 12 Lead Sinus, first-degree AV block Final Diagnoses: as of 10/31/232136 Pancytopenia (HCC) Anemia Macrocytic Keith Loja MD Resident physician Jacob Loja M.D. Resident 10/31/232151 * Suman Juárez M.D. - 10/31/2023 7:57 PM CDT I have personally seen and examined this patient. I have fully participated in the care of this patient. I have reviewed all clinical information including history, physical exam, orders, and plan. Iagree with the note of the resident. We will check CBC to look for severe leukocytosis or anemia. We will check electrolytes to look foracute electrolyte abnormality, metabolic acidosis, or renal failure. We will examine hepatic enzymes for signs of hepatitis or biliary obstruction. We ordered a troponin to screen for cardiac ischemia. We ordered a chest x-ray to look for focal infiltrate, pneumothorax, or mass. ED Course as of 10/31/232041Oct 31, 20232001 On my interpretation of the 12-lead ECG tracing, sinus rhythm with a first- degree AV block. 2002 On my interpretation of the radiologic images, no focal consolidation on chest x-ray. Final Diagnoses: as of 10/31/232041 Pancytopenia (HCC) Suman Juárez M.D. 11/07/23 0005 * Nelson Fan R.N. - 10/31/2023 4:08 PM CDT Pt comes into the ED from clinic today with low Hgb (8.2) and WBC (2.5). Pt endorses weakness and intermittent lightheadedness for 2 months. Pt states her R calf was bleeding yesterday. Pt has petechia BLE. Pt has hx of anemia. Nelson Fan R.N. 10/31/23 1613 Nelson Fan R.N. 10/31/23 1615 documented in this encounter Miscellaneous Notes * Hospital Course - Dong Cancino M.D. - 11/01/2023 5:44 PM CDT Ms. 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 Patient had complaints of petechia involving her lower legs for the last month, worsening bruising,bilateral lower extremity edema (right greater than left), and frequent epistaxis. She had also been having issues with recurrent right groin fluid collection which was drained twice after her mitralvalve repair and was reportedly serous. At her outpatient clinic appointment 10/30, she was noted tohave a new pancytopenia which was significantly reduced since July. She was subsequently referred to the ED. Upon arrival to [facility] ED she was afebrile and hemodynamically stable. CBC showed worsening pancytopenia. She was admitted for further workup and evaluation. Med 1 On the floor, she was given 1u pRBCs for Hgb <7. Hematology and CVS were consulted. She underwent bone marrow biopsy 10/31 which was pending at time of discharge; working differential includes aplastic anemia versus subclinical viral infection per Hematology. GI pathogen panel obtained for diarrhea which was positive for campylobacter. She was started on a 3 day course of azithromycin. She was noted to be low in copper, zinc, and selenium and started on a multivitamin with minerals. Her cytopenias were stable and mildly improved and she was ultimately discharged to complete pancytopenia work up in the outpatient setting with hematology. She was discharged on 11/03/23 in stable condition. MEDICATION CHANGES - Continue to take 1 multivitamin every day (you were deficient in several micronutrients) - Continue to take antibiotic: AZITHROMYCIN once per day until November 03. PATIENT FOLLOW UP APPOINTMENTS - Outpatient CVS surgery (to be scheduled) - PCP appointment; please follow up CBC with differential - Hematology appointment (to be scheduled) documented in this encounter Plan of Treatment Upcoming Encounters Date Type Department Care Team (Latest Contact Info) Description 05/29/2024 12:15 PM FIRE MANAGEMENT SPECIALIST Clinical Communication Virtual Review in [place], [place] [address] [place] [phone] 05/31/2024 11:00 AM FIRE MANAGEMENT SPECIALIST Appointment Department of Laboratory Medicine and Pathology, [facility], in [place], [place] [address] [place] [phone] Patricia Parker APRN, C.N.P., D.N.P. [address] [place] [phone] 05/31/2024 2:00 PM FIRE MANAGEMENT SPECIALIST Comprehensive Visit Preoperative Evaluation Center in [place], [place] [address] [place] [phone] Arianna Jeffries M.D. [address] [place] [phone] 05/31/2024 2:45 PM FIRE MANAGEMENT SPECIALIST Comprehensive Visit Preoperative Evaluation Center in [place], [place] [address] [place] [phone] Chris Moreno APRN, C.N.P., M.S. [address] [place] [phone] 06/03/2024 8:15 AM FIRE MANAGEMENT SPECIALIST Hospital Encounter Post Anesthesia Care Unit in [place] [id number] [place] [phone] Tahir Moore M.D. [address] [place] [phone] 06/03/2024 8:15 AM FIRE MANAGEMENT SPECIALIST - 06/03/2024 2:12 PM FIRE MANAGEMENT SPECIALIST Surgery [facility] MAIN OR [address] [place] [phone] Tahir Moore M.D. [address] [place] [phone] C1-2 fusion 07/02/2024 11:00 AM FIRE MANAGEMENT SPECIALIST Procedure visit Division of Pain Medicine in [place], [place] [address] [place] [phone] Adam Barlow M.D. [address] [place] [phone] Pending Results Name Type Priority Associated Diagnoses Date /Time Prepare Red Blood Cells, 1 Units Blood Bank Routine 10/31/2023 4:34 PM CDT Scheduled Procedures Name Priority Associated Diagnoses Date/Ti me 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 06/03/2024 8:15 AM FIRE MANAGEMENT SPECIALIST documented as of this encounter Procedures Procedure Name Priority Date/Time Associated Diagnosis Comments CBC WITHOUT DIFFERENTIAL, B Routine 11/03/2023 9:00 AM CDT BASIC METABOLIC PANEL, S/P Routine 11/03/2023 9:00 AM CDT FOLATE, S STAT 11/02/2023 3:33 PM CDT (TTE) 2D LIMITED WITH COLOR AND DOPPLER Routine 11/02/2023 10:23 AM CDT CBC WITHOUT DIFFERENTIAL, B Routine 11/02/2023 6:54 AM CDT BASIC METABOLIC PANEL, S/P Routine 11/02/2023 6:54 AM CDT GI PATHOGEN PANEL, PCR, F Routine 11/01/2023 9:42 PM CDT DIC/ICF PROF Timed 11/01/2023 5:28 PM CDT SOLUBLE FIBRIN MONOMER Timed 5:28 PM CDT HEMOGLOBIN, B Timed 11/01/2023 5:28 PM CDT CAMPYLOBACTER CULTURE, FECES Routine 11/01/2023 4:41 PM CDT MI DX BONE MARROW BX & ASPIR Routine 11/01/2023 1:55 PM CDT Pancytopenia (HCC) DNA/RNA EXTRACT AND HOLD, B Routine 11/01/2023 1:45 PM CDT CHROMOSOMES, HEMATOLOGIC, BM Routine 11/01/2023 1:45 PM CDT HC T4 FREE Routine 11/01/2023 12:35 PM CDT THYROID FUNCTION CASCADE, S Routine 11/01/2023 12:35 PM CDT THYROPEROXIDASE (TPO) ABS, S Routine 11/01/2023 12:35 PM CDT METHYLMALONIC ACID (MMA), SHONA, S Routine 11/01/2023 12:35 PM CDT COPPER, S Routine 11/01/2023 12:35 PM CDT ZINC, S Routine 11/01/2023 12:35 PM CDT SELENIUM, S Routine 11/01/2023 12:35 PM CDT VITAMIN B12 ASSAY, S Routine 11/01/2023 12:35 PM CDT US LOWER EXTREMITY PSEUDOANEURYSM RIGHT RAD - Routine (most inpatients and all outpatients) 11/01/2023 11:12 AM CDT US LOWER EXTREMITY VEINS BILATERAL RAD - Routine (most inpatients and all outpatients) 11/01/2023 11:12 AM CDT TRANSFUSE RED BLOOD CELLS Routine 11/01/2023 5:50 AM CDT LYME AB MODIFIED 2-TIER W/REFLEX, S Timed 11/01/2023 2:47 AM CDT BABESIA SPEC., MOLECULAR DETECT, PCR W/ PARASITEMIA REFLEX Timed 11/01/2023 2:47 AM CDT BORRELIA MIYAMOTOI DETECTION PCR, B Timed 11/01/2023 2:47 AM CDT EHRLICHIA/ANAPLASMA PCR, BLOOD Timed 11/01/2023 2:47 AM CDT CBC WITH DIFFERENTIAL, B Timed 11/01/2023 2:47 AM CDT DIRECT ANTIGLOBULIN TEST (POLYSPECIFIC) Routine 11/01/2023 2:47 AM CDT LACTATE, B/P Timed 11/01/2023 2:47 AM CDT HEMATOPATHOLOGY Routine 11/01/2023 12:00 AM CDT BACTERIA / JILLIAN CULTURE, BLOOD STAT 10/31/2023 11:01 PM CDT EBV DNA DETECT/QUANT, P STAT 10/31/2023 10:51 PM CDT HIV-1/-2 AG AND AB SCREEN, PLASMA Timed 10/31/2023 10:51 PM CDT LIPID PANEL, S Timed 10/31/2023 10:51 PM CDT CMV DNA DETECT/QUANT, P STAT 10/31/2023 10:51 PM CDT HCV AB W/REFLEX TO HCV PCR, S STAT 10/31/2023 10:51 PM CDT IRON AND TOT IRON-BINDING CAPACITY, S/P Timed 10/31/2023 10:51 PM CDT PARVOVIRUS B19 AB, IGG AND IGM STAT 10/31/2023 10:51 PM CDT COAG FACTOR X ACTIVITY ASSAY, P Timed 10/31/2023 10:51 PM CDT COAG FACTOR VII ACTIVITY ASSAY, P Timed 10/31/2023 10:51 PM CDT COAG FACTOR V ACTIVITY ASSAY, P Timed 10/31/2023 10:51 PM CDT COAG FACTOR II ACTIVITY ASSAY, P Timed 10/31/2023 10:51 PM CDT URIC ACID, S/P Timed 10/31/2023 10:51 PM CDT FERRITIN, S Timed 10/31/2023 10:51 PM CDT VITAMIN B12 ASSAY, S Timed 10/31/2023 10:51 PM CDT LACTATE FOR SEPSIS WITH REFLEX STAT 10/31/2023 10:50 PM CDT SPSMA RESULT Timed 10/31/2023 10:50 PM CDT DIC/ICF PROF Timed 10/31/2023 10:50 PM CDT SOLUBLE FIBRIN MONOMER Timed 10:50 PM CDT PT MIX 1:1 Timed 10/31/2023 10:50 PM CDT PROTHROMBIN TIME (PT), P Timed 10/31/2023 10:50 PM CDT RETICULOCYTES, B Timed 10/31/2023 10:50 PM CDT LACTATE DEHYDROGENASE (LD), S Timed 10/31/2023 10:50 PM CDT HAPTOGLOBIN, S Timed 10/31/2023 10:50 PM CDT BACTERIA / JILLAIN CULTURE, BLOOD STAT 10/31/2023 10:49 PM CDT ACTIVATED PARTIAL THROMBOPLASTIN TIME (APTT), P Routine 10/31/2023 10:34 PM CDT TROPONIN T, 2H/6H REFLEX, 5TH GEN, P Timed 10/31/2023 8:16 PM CDT HEPATIC FUNCTION PANEL, S STAT 10/31/2023 8:16 PM CDT DIPSTICK, U STAT 10/31/2023 6:05 PM CDT MICROSCOPIC AUTOMATED STAT 10/31/2023 6:05 PM CDT BACTERIAL CULTURE, AEROBIC + SUSC, URINE STAT 10/31/2023 6:05 PM CDT PH, U STAT 10/31/2023 6:05 PM CDT OSMOLALITY, U STAT 10/31/2023 6:05 PM CDT URINALYSIS WITH MICROSCOPIC STAT 10/31/2023 6:05 PM CDT ECG Routine 10/31/2023 5:25 PM CDT DX CHEST AP OR PA AND LATERAL 2 VIEWS RAD - Semiurgent (Fast; most ED patients; some inpatients) 10/31/2023 4:49 PM CDT GLUCOSE POCT, B STAT 10/31/2023 4:35 PM CDT TROPONIN T, BASELINE, 5TH GEN, P STAT 10/31/2023 4:34 PM CDT CBC WITH DIFFERENTIAL, B STAT 10/31/2023 4:34 PM CDT PREPARE RED BLOOD CELLS Routine 10/31/2023 4:34 PM CDT TYPE AND SCREEN Routine 10/31/2023 4:34 PM CDT BASIC METABOLIC PANEL, S/P STAT 10/31/2023 4:34 PM CDT documented in this encounter Results * (ABNORMAL) Basic Metabolic Panel (11/03/2023 9:00 AM CDT) Potassium, S 3.8 3.6 - 5.2 mmol/L 11/03/2023 10:41 AM CDT DTL Sodium, S 134(L) 135 - 145 mmol/L 11/03/2023 10:41 AM CDT DTL Chloride, S 96(L) 98 - 107 mmol/L 11/03/2023 10:41 AM CDT DTL Bicarbonate, S 27 22 - 29 mmol/L 11/03/2023 10:41 AM CDT DTL Anion Gap 11 7 - 15 11/03/2023 10:41 AM CDT DTL BUN (Blood Urea Nitrogen), S 7 6 - 21 mg/dL 11/03/2023 10:41 AM CDT DTL Creatinine 0.51(L) 0.59 - 1.04 mg/dL 11/03/2023 10:41 AM CDT DTL Estimated GFR (eGFR) >90 >=60 mL/min/BSA 11/03/2023 10:41 AM CDT DTL Comment: Estimated GFR calculated using the 2020 CKD_EPI creatinine equation. Calcium, Total, S 8.5(L) 8.8 - 10.2 mg/dL 11/03/2023 10:41 AM CDT DTL Glucose, S 98 70 - 140 mg/dL 11/03/2023 10:41 AM CDT DTL Blood (Blood, Venous) 11/03/2023 9:00 AM CDT 11/03/2023 10:24 AM CDT us Dong Cancino M.D. LAB BLOOD ADD-ON Final Result [facility] [address] [place] [address], [facility] [address] [place] [address] * (ABNORMAL) CBC without Differential (11/03/2023 9:00 AM CDT) [facility] Hemoglobin 8.9(L) 11.6 - 15.0 g/dL 11/03/2023 10:30 AM CDT DTL Hematocrit 27.8(L) 35.5 - 44.9 % 11/03/2023 10:30 AM CDT DTL Erythrocytes 2.57(L) 3.92 - 5.13 x10(12)/L 11/03/2023 10:30 AM CDT DTL MCV 108.2(H) 78.2 - 97.9 fL 11/03/2023 10:30 AM CDT DTL RBC Distrib Width 21.4(H) 12.2 - 16.1 % 11/03/2023 10:30 AM CDT DTL Platelet Count 73(L) 157 - 371 x10(9)/L 11/03/2023 10:30 AM CDT DTL Leukocytes 2.6(L) 3.4 - 9.6 x10(9)/L 11/03/2023 10:30 AM CDT DTL Blood (Blood, Venous) 11/03/2023 9:00 AM CDT 11/03/2023 10:14 AM CDT Dong Cancino M.D. LAB BLOOD ADD-ON Final Result [facility] [address] [place] [address], [facility] [address] [place] [address] * Folate (11/02/2023 3:33 PM CDT) [facility] Folate, S 8.8 >=4.0 mcg/L 11/03/2023 7: 44 AM CDT DTL Blood 11/02/2023 3:33 PM CDT 11/02/2023 4:16 PM CDT Dong Cancino M.D. LAB BLOOD ADD-ON Final Result [facility] [address] [place] [address], [place] DTL [facility] [address] [place] [address] * (TTE) 2D LIMITED WITH COLOR AND DOPPLER (11/02/2023 10:23 AM CDT) Ejection Fraction 63 MC CV EIMS LV End-Diastolic Volume 94 MC CV EIMS LV End-Systolic Volume 38 MC CV EIMS Left ventricular stroke volume index 34 MC CV EIMS Cardiac Output 5.64 MC CV EIMS Cardiac Index 3.5 MC CV EIMS Tricuspid Annular S 0.12 MC CV EIMS TR Vmax 3.78 MC CV EIMS RA Pressure 5 MC CV EIMS RV Systolic Pressure 62 MC CV EIMS Estimated diastolic pulmonary artery pressure 17 MC CV EIMS MV mean gradient 3 MC CV EIMS Mitral Valve Area (by PHT) 2.97 MC CV EIMS TV Regurgitant Volume 31 MC CV EIMS Anatomical Region Laterality Modality Echocardiography 11/02/2023 9:12 AM CDT Impressions 11/02/2023 1:47 PM CDT Status post mitral valve repair. Robotically assisted mitral valve annuloplasty and mitral valvuloplasty (suture closure of posterior leaflet cleft) 07-AUG-2023. Echocardiogram performed per left ventricular function protocol with endocarditis assessment Last full echocardiogram performed 08/03/2023. LEFT VENTRICLE:Normal left ventricular chamber size. Calculated 3-D volumetric left ventricular ejection fraction 63%. Abnormal ventricular septal motion - post-operative without other regional wall motion abnormalities. Left ventricular cardiac index 3.50 l/min/m2. Left ventricular stroke volume index 34 ml/m2. Indeterminate left ventricular diastolic function. RIGHT VENTRICLE:Mild-moderately enlarged right ventricular chamber size. Mildly reduced right ventricular systolic function. Estimated right ventricular systolic pressure 62 mmHg (right atrial pressure of 5 mmHg). ATRIA:Severely enlarged left atrial size by visual estimate. Enlarged right atrial size by visual estimate. CARDIAC VALVES:Trileaflet aortic valve. Sclerotic aortic valve. Trivial aortic valve regurgitation. Status post Medtronic mitral valve annuloplasty (). Status post mitral valvuloplasty (). Mitral valve diastolic mean Doppler gradient 3 mmHg (heart rate 103 BPM). Mild mitral valve regurgitation. Normal pulmonary valve. Normal pulmonary valve systolic velocities. Mild pulmonary valve regurgitation. Normal tricuspid valve. Tricuspid annulus dilatation. Moderate tricuspid valve regurgitation. Eccentric regurgitant jet. Tricuspid regurgitant volume (PISA) 31 ml. Tricuspid regurgitation ERO (PISA) 0.28 cm2. OTHER ECHO FINDINGS:Normal inferior vena cava size with normal inspiratory collapse (>50%). No intracardiac mass or thrombus, but the left atrial appendage cannot be visualized adequately with transthoracic echo to exclude thrombus in this location. No pericardial effusion. For the complete report, see the Order-Level Documents. Narrative 11/02/2023 1:47 PM CDT For the complete report, see the Order-Level Documents. Hemodynamics Heart Rate: 89 BPM Blood Pressure: 127 / 82 mmHg ECG: Sinus rhythm, 1st degree A-V block Final Impressions 1. No clear evidence of valvular endocarditis, within the limits of transthoracic imaging. Consider VIJI if clinically indicated. 2. Status post mitral valve repair. Robotically assisted mitral valve annuloplasty and mitral valvuloplasty (suture closure of posterior leaflet cleft) 07-AUG-2023. 3. Mitral valve diastolic mean Doppler gradient 3 mmHg (heart rate 103 BPM). Mild mitral regurgitation. 4. Normal left ventricular chamber size, calculated 3-D volumetric ejection fraction 63% . No regional wall motion abnormalities. Abnormal ventricular septal motion, postoperative. 5. Mild-moderately enlarged right ventricular chamber size, mildly reduced systolic function, estimated right ventricular systolic pressure 62 mmHg (right atrial pressure of 5 mmHg). 6. Moderate tricuspid valve regurgitation, ERO (PISA) 0.28 cm2, regurgitant volume (PISA) 31 ml . Tricuspid annulus dilatation. 7. Normal inferior vena cava size with normal inspiratory collapse (>50%). 8. No pericardial effusion. 9. Compared to the report of 08/11/2023 the following changes have occurred: The estimated right ventricular systolic pressure has increased (was 46 mmHg), but IVC is normal size with normal inspiratory collapse. Side by side comparison of images performed. Procedure Note Adamaris Wolff M.D., Ph.D. - 11/02/2023 For the complete report, see the Order-Level Documents. Hemodynamics Heart Rate: 89 BPM Blood Pressure: 127 / 82 mmHg ECG: Sinus rhythm, 1st degree A-V block Final Impressions 1. No clear evidence of valvular endocarditis, within the limits oftransthoracic imaging. Consider VIJI if clinically indicated. 2. Status post mitral valve repair. Robotically assisted mitral valveannuloplasty and mitral valvuloplasty (suture closure of posterior leafletcleft) 07-AUG-2023. 3. Mitral valve diastolic mean Doppler gradient 3 mmHg (heart rate 103BPM). Mild mitral regurgitation. 4. Normal left ventricular chamber size, calculated 3-D volumetricejection fraction 63% . No regional wall motion abnormalities. Abnormalventricular septal motion, postoperative. 5. Mild-moderately enlarged right ventricular chamber size, mildly reducedsystolic function, estimated right ventricular systolic pressure 62 mmHg(right atrial pressure of 5 mmHg). 6. Moderate tricuspid valve regurgitation, ERO (PISA) 0.28 cm2,regurgitant volume (PISA) 31 ml . Tricuspid annulus dilatation. 7. Normal inferior vena cava size with normal inspiratory collapse(>50%). 8. No pericardial effusion. 9. Compared to the report of 08/11/2023 the following changes haveoccurred: The estimated right ventricular systolic pressure has increased(was 46 mmHg), but IVC is normal size with normal inspiratory collapse.Side by side comparison of images performed. Findings Status post mitral valve repair. Robotically assisted mitral valveannuloplasty and mitral valvuloplasty (suture closure of posterior leafletcleft) 07-AUG-2023. Echocardiogram performed per left ventricular functionprotocol with endocarditis assessment Last full echocardiogram /14/2024. LEFT VENTRICLE:Normal left ventricular chamber size. Calculated 3-Dvolumetric left ventricular ejection fraction 63%. Abnormal ventricularseptal motion - post- operative without other regional wall motionabnormalities. Left ventricular cardiac index 3.50 l/min/m2. Leftventricular stroke volume index 34 ml/m2. Indeterminate left ventriculardiastolic function. RIGHT VENTRICLE:Mild-moderately enlarged right ventricular chamber size.Mildly reduced right ventricular systolic function. Estimated rightventricular systolic pressure 62 mmHg (right atrial pressure of 5 mmHg). ATRIA:Severely enlarged left atrial size by visual estimate. Enlargedright atrial size by visual estimate. CARDIAC VALVES:Trileaflet aortic valve. Sclerotic aortic valve. Trivialaortic valve regurgitation. Status post Medtronic mitral valveannuloplasty (). Status post mitral valvuloplasty(). Mitral valve diastolic mean Doppler gradient 3 mmHg (heartrate 103 BPM). Mild mitral valve regurgitation. Normal pulmonary valve.Normal pulmonary valve systolic velocities. Mild pulmonary valveregurgitation. Normal tricuspid valve. Tricuspid annulus dilatation.Moderate tricuspid valve regurgitation. Eccentric regurgitant jet.Tricuspid regurgitant volume (PISA) 31 ml. Tricuspid regurgitation ERO(PISA) 0.28 cm2. OTHER ECHO FINDINGS:Normal inferior vena cava size with normal inspiratorycollapse (>50%). No intracardiac mass or thrombus, but the left atrialappendage cannot be visualized adequately with transthoracic echo toexclude thrombus in this location. No pericardial effusion. For the complete report, see the Order-Level Documents. us Luis Crook M.D. CV ECHO PROCEDURES Rosmery galvan Result * (ABNORMAL) Basic Metabolic Panel (11/02/2023 6:54 AM CDT) Potassium, S 3.3(L) 3.6 - 5.2 mmol/L 11/02/2023 8:18 AM CDT DTL Sodium, S 136 135 - 145 mmol/L 11/02/2023 8:18 AM CDT DTL Chloride, S 95(L) 98 - 107 mmol/L 11/02/2023 8:18 AM CDT DTL Bicarbonate, S 28 22 - 29 mmol/L 11/02/2023 8:18 AM CDT DTL Anion Gap 13 7 - 15 11/02/2023 8:18 AM CDT DTL BUN (Blood Urea Nitrogen), S 6 6 - 21 mg/dL 11/02/2023 8:18 AM CDT DTL Creatinine 0.50(L) 0.59 - 1.04 mg/dL 11/02/2023 8:18 AM CDT DTL Estimated GFR (eGFR) >90 >=60 mL/min/BSA 11/02/2023 8:18 AM CDT DTL Comment: Estimated GFR calculated using the 2020 CKD_EPI creatinine equation. Calcium, Total, S 8.4(L) 8.8 - 10.2 mg/dL 11/02/2023 8:18 AM CDT DTL Glucose, S 93 70 - 140 mg/dL 11/02/2023 8:18 AM CDT DTL Blood (Blood, Venous) 11/02/2023 6:54 AM CDT 11/02/2023 7:53 AM CDT Dong Cancino M.D. LAB BLOOD ADD-ON Final Result [facility] [address] [place] [address], [facility] [address] [place] [address] * (ABNORMAL) CBC without Differential (11/02/2023 6:54 AM CDT) Hemoglobin 8.8(L) 11.6 - 15.0 g/dL 11/02/2023 7:52 AM CDT DTL Hematocrit 26.2(L) 35.5 - 44.9 % 11/02/2023 7:52 AM CDT DTL Erythrocytes 2.50(L) 3.92 - 5.13 x10(12)/L 11/02/2023 7:52 AM CDT DTL MCV 104.8(H) 78.2 - 97.9 fL 11/02/2023 7:52 AM CDT DTL RBC Distrib Width 22.0(H) 12.2 - 16.1 % 11/02/2023 7:52 AM CDT DTL Platelet Count 78(L) 157 - 371 x10(9)/L 11/02/2023 8:46 AM CDT DTL Comment:Results confirmed by smear, no clumping or interference seen. Leukocytes 2.2(L) 3.4 - 9.6 x10(9)/L 11/02/2023 8:46 AM CDT DTL Blood (Blood, Venous) 11/02/2023 6:54 AM CDT 11/02/2023 7:38 AM CDT Dong Cancino M.D. LAB BLOOD ADD-ON Final Result [facility] [address] [place] [address], [place] DTL [facility] [address] [place] [address] * (ABNORMAL) GI Pathogen Panel, PCR, Feces (11/01/2023 9:42 PM CDT) Specimen Source STOOL 12:52 AM CDT DTL Campylobacter species Positive(A ) Negative 11/02/2023 12:52 AM CDT DTL C. difficile toxin Negative Negative 2023 12:52 AM CDT DTL Plesiomonas shigelloides Negative Negative 11/02/2023 12:52 AM CDT DTL Salmonella species Negative Negative 2023 12:52 AM CDT DTL Vibrio species Negative Negative 11/02/2023 12:52 AM CDT DTL Vibrio cholerae Negative Negative 12:52 AM CDT DTL Yersinia species Negative Negative 11/02/19 12:52 AM CDT DTL Enteroaggregative E. coli (EAEC) Negative Negative 11/02/2023 12:52 AM CDT DTL Enteropathogenic E. coli (EPEC) Negative Negative 11/02/2023 12:52 AM CDT DTL Enterotoxigenic E. coli (ETEC) Negative Negative 11/02/2023 12:52 AM CDT DTL Shiga toxin producing E. coli Negative Negative 11/02/2023 12:52 AM CDT DTL Shigella/Enteroinvas akosua E. coli Negative Negative 11/02/2023 12:52 AM CDT DTL Cryptosporidium species Negative Negative 11/02/2023 12:52 AM CDT DTL Cyclospora cayetanensis Negative Negative 11/02/2023 12:52 AM CDT DTL Entamoeba histolytica Negative Negative 11/02/2023 12:52 AM CDT DTL Giardia Negative Negative 11/02/2023 12:52 AM CDT DTL Adenovirus F40/41 Negative Negative 024 12:52 AM CDT DTL Astrovirus Negative Negative 11/02/2023 12:52 AM CDT DTL Norovirus GI/GII Negative Negative 11/02/19 12:52 AM CDT DTL Rotavirus Ag, F Negative Negative 12:52 AM CDT DTL Sapovirus Negative Negative 11/02/2023 12:52 AM CDT DTL Comment: ----ADDITIONAL INFORMATION---- This assay is performed using the FDA-cleared KlutchArray GI Panel ([employer] Semi-Urgent This is a semi-urgen t result(JHA) [facility] Stool (Stool) 11/01/2023 9:4 2 PM CDT 11/01/2023 10:59 PM CDT Luis Crook M.D. LAB MICROBIOLOGY - GENE RAL ORDERABLES Final Result Performing Organization Address [facility] Co de Phone Number [address] [place] [address] * Soluble Fibrin Monomer (11/01/2023 5:28 PM CDT) Soluble Fibrin Monomer <5 <=8 mcg/mL 11/02/2023 9:57 AM CDT DTL Comment: ----ADDITIONAL INFORMATION---- This test was developed and its performance characteristics determined by [facility] in a manner consistent with CLIA requirements. This test has not been cleared or approved by the U.S. Food and Drug Administration. Blood 11/01/2023 5:28 PM CDT 11/02/2023 7:04 AM CDT Dong Cancino M.D. LAB BLOOD NON ADD-ON F inal Result Performing Organization Address [facility]/ZIP Co de Phone Number [facility] [address] [place] [address], [facility] [place] [address] * (ABNORMAL) DIC/ICF Profile (11/01/2023 5:28 PM CDT) Prothrombin Time (PT), P 12.3 9.4 - 12.5 sec 11/02/2023 9:34 AM CDT DTL INR 1.1 0.9 - 1.1 11/02/2023 9:34 AM CDT DTL Comment: ----ADDITIONAL INFORMATION---- Standard intensity warfarin therapeutic range: 2.0 to 3.0 High intensity warfarin therapeutic range: 2.5 to 3.5 Activated Partial Thrombopl Time, P 30 25 - 37 sec 11/02/2023 9:33 AM CDT DTL Thrombin Time (Bovine), P 22.7 15.8 - 24.9 sec 11/02/2023 9:33 AM CDT DTL Fibrinogen, Clauss, P 249 200 - 500 mg/dL 11/02/2023 9:07 AM CDT DTL Comment: ----ADDITIONAL INFORMATION---- This test has been modified from the floors buffer's instructions. Its performance characteristics were determined by [facility] in a manner consistent with CLIA requirements. This test has not been cleared or approved by the U.S. Food and Drug Administration. D-DIMER, P 947(H) <=500 ng/mL FEU 11/02/2023 9:36 AM CDT DTL Comment: ----ADDITIONAL INFORMATION---- D-dimer values less than or equal to 500 ng/mL fibrinogen equivalent units (FEU) may be used in conjunction with clinical pre-test probability to exclude deep vein thrombosis (DVT) and/or pulmonary embolism (PE). Reviewed By Maulik Romero M.D., Ph.D. 11/02/2023 2:28 PM CDT DTL DIC/ICF Prof Interpretation IMPRESSION: Elevated D-dimer but no definitive features of active disseminated intravascular coagulation (DIC). See comments. COMMENTS: Prothrombin time (PT), activated partial thromboplastin time (APTT), thrombin time (TT) and fibrinogen activity are all normal. Elevation of fibrin D-dimer can occur in association with recent bleeding, surgery or thromboembolism, hypercoagulable state, liver disease. Although the negative soluble fibrin monomer complexes do not support a diagnosis of intravascular coagulation and fibrinolysis (ICF/DIC), clinical correlation is suggested. Thrombocytopenia is noted from [facility]. Interpreted by Demetris Romero M.D., Ph.D./nlw 11/02/2023 2:28 PM CDT DTL Blood (Blood, Venous) 11/01/2023 5:28 PM CDT 11/02/2023 7:04 AM CDT Narrative [facility] - 11/02/2023 2:28 PM CDT Specimen Information: Specimen ID: [id number] Specimen Type: Blood Specimen Collection Start Date: 11/01/2023 5:28 PM Specimen Received Date: 11/02/2023 7:04 AM Specimen ID: [id number] Specimen Type: Blood Specimen Collection Start Date: 11/01/2023 5:28 PM Specimen Received Date: 11/02/2023 7:04 AM Specimen ID: [id number] Specimen Type: Blood Specimen Collection Start Date: 11/01/2023 5:28 PM Specimen Received Date: 11/02/2023 7:04 AM Specimen ID: [id number] Specimen Type: Blood Specimen Collection Start Date: 11/01/2023 5:28 PM Specimen Received Date: 11/02/2023 7:04 AM Specimen ID: [id number] Specimen Type: Blood Specimen Collection Start Date: 11/01/2023 5:28 PM Specimen Received Date: 11/02/2023 7:04 AM Dong Cancino M.D. LAB BLOOD NON ADD-ON F inal Result [facility] [address] [place] [address], [facility] [address] [place] [address] DT [address] [facility] [address] [place] [address] * (ABNORMAL) Hemoglobin (11/01/2023 5:28 PM CDT) Hemoglobin 9.0(L) 11.6 - 15.0 g/dL 11/01/2023 6:15 PM CDT DTL Blood (Blood, Venous) 11/01/2023 5:28 PM CDT 11/01/2023 6:08 PM CDT Dong Cancino M.D. LAB BLOOD ADD-ON Final Result Performing Organization Address [facility] Co de Phone Number [facility] [address] [place] [address] * Campylobacter Culture, Feces (11/01/2023 4:41 PM CDT) Campylobacter Culture, F No growth of Campylobacter species 11/06/2023 8:56 AM CDT DTL Stool 11/01/2023 4:41 PM CDT 11/02/2023 2:23 AM CDT Luis Crook M.D. LAB MICROBIOLOGY - GENE RAL ORDERABLES Final Result Performing Organization Address [facility] de Phone Number [facility] [address] [place] [address] * MI DX BONE MARROW BX & ASPIR (11/01/2023 1:55 PM CDT) Bone Marrow Narrative [facility] - 11/01/2023 1:55 PM CDT Suman Newby R.N. 11/01/2023 1:56 PM Biopsy Bone Marrow, Unsedated Performed by: Suman Newby R.N. Authorized by: Khang Smith M.D., Ph.D., M.D., Ph.D. Care team members present 1. Suamn Newby R.N. 2. Armani Larios PROCEDURE DETAILS Procedure: Bone Marrow biopsy and Bone Marrow aspiration Bone marrow biopsy Laterality: Right Location of biopsy: Posterior iliac crest Patient position: Side lying Type of Needle: Manual bone marrow biopsy needle Findings: Slides obtained and aspirate obtained with spicules noted Bone marrow aspiration Aspirate volume (mL): 20 CONSENT Consent obtained: written (Risks, benefits and alternatives were discussed and a written Informed Consent was obtained. Please see Informed Consent form for further details.) UNIVERSAL PROTOCOL All relevant documentation and testing were reviewed and available. All required blood products, implants, devices and or special equipment were made available as applicable. Pre-procedure verification was conducted and the correct site was marked if required. A fire risk assessment was done as applicable. The procedural time-out to verify correct patient, correct side/site, and procedure was conducted prior to performing the procedure and confirmed in a procedural pause. PRE-PROCEDURE DETAILS Appropriate hand hygiene, gown, cap, mask, protective eyewear, sterile gloves, skin preparation, sterile drape, and strict aseptic technique were utilized as applicable for the procedure.: yes Site preparation: chlorhexidine SEDATION / ANESTHESIA Anesthesia method: local infiltration Local infiltrate type: lidocaine POST-PROCEDURE DETAILS Procedure completed successfully: yes Procedure tolorated: Well Post procedure pain scale: 4/10 Complications: no apparent complications Post-procedure instructions: Post-procedure activity instructions provided COMMENTS 200 mg 1 % lidocaine administered SQ Pressure dressing applied Pamphlet [id number] given to patient us Khang Smith M.D., Ph.D., M. D., Ph.D. PROCEDURE/MINOR SURGICAL ORDERABLES Final Result [facility] NA * Hematologic Disorders, DNA and RNA Extract and Hold (11/01/2023 1:45 PM CDT) Specimen Type Bone marrow 11/03/2023 12:37 PM CDT DTL DNA/RNA Extract and Hold Result see method 11/03/2023 12:37 PM CDT DTL DNA/RNA Extraction Performed 2023 12:37 PM CDT DTL Comment: ----ADDITIONAL INFORMATION---- DNA and total RNA were extracted from the sample and will be stored cryopreserved for 1 year from the extraction date. To request specific molecular test(s) from the [facility]'s test catalog, please contact [facility] at [phone]. Method summary: DNA and RNA were extracted from the received specimen and stored at -80 C. This test was developed and its performance characteristics determined by [facility] in a manner consistent with CLIA requirements. This test has not been cleared or approved by the U.S. Food and Drug Administration. 11/01/2023 1:45 PM CDT 11/02/2023 9:35 AM CDT us Kathleen Welsh M.D., M.S. LAB GENETIC TESTING F inal Result [facility] [employer] [address] [place] [address], 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 11/10/2023 1:41 PM CDT DTL Additional Information A portion of the testing process was performed at [facility] site [id number]. 11/10/2023 1:41 PM CDT DTL Released by Margoth Pierre, Ph.D. 11/10/2023 1:41 PM CDT DTL Interpretation The result is abnormal. 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 A 7q deletion is a common chromosome abnormality in both de cristal and therapy-related myeloid malignancies, particularly MDS and AML. A 7q deletion is an intermediate prognostic finding in MDS and may be associated with an intermediate to unfavorable prognostic finding in AML (Desirelow et al., WHO Classification of Tumours of Haematopoietic and Lymphoid Tissues. IARC Press:Jairo 2017; page 105; NCCN Guidelines Version 3,2020, MDS and AML). Clinical and pathologic correlation is recommended. This test was ordered in the context of a [facility] pathology consultation/case (#[id number]), and this result should be interpreted within the context of the pathology consultation/repo rt. 11/10/2023 1:41 PM CDT DTL Bone Marrow 11/01/2023 1:45 PM CDT 11/02/2023 9:25 AM CDT us Katlheen Welsh M.D., M.S. LAB GENETIC TESTING F inal Result [facility] [place] [facility] [employer] [address] [place] [address], [facility] DT [address] [place] [address] * Thyroperoxidase (TPO) Antibodies (11/01/2023 12:35 PM CDT) Thyroperoxidase Ab, S <15.0 <34.0 IU/mL 11/01/2023 2:59 PM CDT DTL Blood 11/01/2023 12:3 5 PM CDT 11/01/2023 1:07 PM CDT us Dong Cancino M.D. LAB BLOOD ADD-ON Final Result [facility] [address] [place] [id number], [facility] [address] [place] [address] * T4 (Thyroxine), Free, Serum (11/01/2023 12:35 PM CDT) T4 (Thyroxine), Free, S 1.4 0.9 - 1.7 ng/dL 11/01/2023 2:59 PM CDT DTL Blood 11/01/2023 12:3 5 PM CDT 11/01/2023 1:07 PM CDT us Dong Cancino M.D. LAB BLOOD ADD-ON Final Result Performing Organization Address [facility] Co de Phone Number [facility] [address] [place] [address], [facility] [address] [place] [address] * (ABNORMAL) Thyroid Function Blakeslee (11/01/2023 12:35 PM CDT) TSH, Sensitive 4.5(H) 0.3 - 4.2 mIU/L 11/01/2023 2:39 PM CDT DTL Blood (Blood, Venous) 11/01/2023 12:35 PM CDT 11/01/2023 1:07 PM CDT us Dong Cancino M.D. LAB BLOOD ADD-ON Final Result [facility] [address] [place] [address], [facility] [address] [place] [address] * (ABNORMAL) Selenium (11/01/2023 12:35 PM CDT) Selenium, S 97(L) 110 - 165 mcg/L 11/02/2023 12:03 PM CDT [facility] Comment: ----ADDITIONAL INFORMATION---- This test was developed and its performance characteristics determined by [facility] in a manner consistent with CLIA requirements. This test has not been cleared or approved by the U.S. Food and Drug Administration. Blood (Blood, Venous) 11/01/2023 12:35 PM CDT 11/01/2023 4:50 PM CDT Dong Cancino M.D. LAB BLOOD NON ADD-ON F inal Result Performing Organization Address [facility] Co de Phone Number [facility] [address] [place] [address] [facility] [address] [place] [address] [place] [address] * Methylmalonic Acid (MMA), Quantitative (11/01/2023 12:35 PM CDT) Methylmalonic Acid, QN, S 0.10 <=0.40 nmol/mL 11/03/2023 10:35 AM CDT DT Comment: ----ADDITIONAL INFORMATION---- This test was developed and its performance characteristics determined by [facility] in a manner consistent with CLIA requirements. This test has not been cleared or approved by the U.S. Food and Drug Administration. Blood (Blood, Venous) 11/01/2023 12:35 PM CDT 11/01/2023 1:56 PM CDT Dong Cancino M.D. LAB BLOOD ADD-ON Final Result Performing Organization Address [facility]/ZIP Co de Phone Number [facility] [address] [place] [address], [place] DTL [address] [facility] [address] [place] [address] * Vitamin B12 Assay (11/01/2023 12:35 PM CDT) Vitamin B12 Assay, S 583 180 - 914 ng/L 11/02/2023 3:16 PM CDT [facility] Comment: ----ADDITIONAL INFORMATION---- In patients being evaluated for vitamin B12 deficiency who have intrinsic factor blocking antibodies (IFBA), false elevations of B12 may occur due to IFBA interference thus potentially obscuring a physiological deficiency of B12. If observed B12 concentrations are discordant with clinical presentation, measurement of methylmalonic acid (MMA) should be considered. Blood (Blood, Venous) 11/01/2023 12:35 PM CDT 11/01/2023 1:07 PM CDT Dong Cancino M.D. LAB BLOOD ADD-ON Final Result Performing Organization Address [facility] Co de Phone Number [facility] [address] [place] [address], [facility] [address] [place] [address] * (ABNORMAL) Copper (11/01/2023 12:35 PM CDT) Pathologist [facility] Copper, S 57(L) 77 - 206 mcg/dL 11/02/2023 12:03 PM CDT [facility] Comment: ----ADDITIONAL INFORMATION---- This test was developed and its performance characteristics determined by [facility] in a manner consistent with CLIA requirements. This test has not been cleared or approved by the U.S. Food and Drug Administration. Blood (Blood, Venous) 11/01/2023 12:35 PM CDT 11/01/2023 4:50 PM CDT Dong Cancino M.D. LAB BLOOD NON ADD-ON F inal Result Performing Organization Address City/[facility]/ZIP Co de Phone Number [facility] [address] [place] [address] [facility] [address] [place] [address] [place] [address] * (ABNORMAL) Zinc (11/01/2023 12:35 PM CDT) Zinc, S 44(L) 60 - 106 mcg/dL 11/02/2023 12:03 PM CDT [facility] Comment: ----ADDITIONAL INFORMATION---- This test was developed and its performance characteristics determined by [facility] in a manner consistent with CLIA requirements. This test has not been cleared or approved by the U.S. Food and Drug Administration. Blood (Blood, Venous) 11/01/2023 12:35 PM CDT 11/01/2023 4:50 PM CDT us Dong Cancino M.D. LAB BLOOD NON ADD-ON F inal Result [facility] [address] [place] [address] [facility] [address] [place] [address] [place] [address] * US Lower Extremity Pseudoaneurysm Right (11/01/2023 11:12 AM CDT) Anatomical Region Laterality Modality Vascular, Lower Extremity, U ltrasound RST LOS, Ultrasound ARZ LOS, Ultrasound FLA LOS Ultrasound Impressions 11/01/2023 1:01 PM CDT 1. Large 4.6 x 5.2 x 6.1 cm fluid collection in the right groin. Per chart review, this was previously aspirated on 09/29/2023 with removal of 70 cc of serous colored fluid, however no images are available for direct comparison. 2. Negative for pseudoaneurysm or arteriovenous fistula in the right groin. Narrative 11/01/2023 1:01 PM CDT EXAM: US LOWER EXTREMITY PSEUDOANEURYSM RIGHT Exam performed with color and spectral Doppler analysis. COMPARISON: None available FINDINGS: Targeted sonographic evaluation of the right groin demonstrates a 4.6 x 5.2 x 6.1 cm hypoechoic fluid collection, with a small amount of scattered internal debris. No associated vascularity within the fluid collection on color Doppler images. This fluid collection results in mild mass effect on the right common femoral vein, which remains patent. The common femoral, proximal superficial femoral and proximal deep femoral arteries and adjacent veins are patent with no findings to suggest a pseudoaneurysm or arteriovenous fistula. Procedure Note Alireza Jean M.D. - 11/01/2023 EXAM: US LOWER EXTREMITY PSEUDOANEURYSM RIGHT Exam performed with color and spectral Doppler analysis. COMPARISON: None available FINDINGS: Targeted sonographic evaluation of the right groin demonstratesa 4.6 x 5.2 x 6.1 cm hypoechoic fluid collection, with a small amount ofscattered internal debris. No associated vascularity within the fluidcollection on color Doppler images. This fluid collection results in mild mass effect on the right commonfemoral vein, which remains patent. The common femoral, proximal superficial femoral and proximal deep femoralarteries and adjacent veins are patent with no findings to suggest apseudoaneurysm or arteriovenous fistula. IMPRESSION: 1. Large 4.6 x 5.2 x 6.1 cm fluid collection in the right groin. Per chartreview, this was previously aspirated on 09/29/2023 with removal of 70 ccof serous colored fluid, however no images are available for directcomparison. 2. Negative for pseudoaneurysm or arteriovenous fistula in the rightgroin. us Sharmaine Skelton M.D. IMG US PROCEDURES Final Result * US Lower Extremity Veins Bilateral (11/01/2023 11:12 AM CDT) Anatomical Region Laterality Modality Lower Extremity, Ultrasound RST LOS, Ultrasound ARZ LOS, Ultrasound FLA LOS Bilateral Ultrasound Impressions 11/01/2023 12:58 PM CDT Short segment of acute DVT in a left soleal vein. Narrative 11/01/2023 12:58 PM CDT EXAM: US LOWER EXTREMITY VEINS BILATERAL Exam performed with color and spectral Doppler analysis. COMPARISON: None available. FINDINGS: RIGHT: Common Femoral Vein: Negative. Profunda Femoral Vein: Negative. Femoral Vein: Negative. Popliteal Vein: Negative. Gastrocnemius Veins: Negative where seen. Soleal Veins: Negative where seen. Posterior Tibial Veins: Negative where seen. Peroneal Veins: Negative where seen. Great Saphenous Vein: Negative where seen. Small Saphenous Vein: Not Evaluated. Popliteal Fossa: Negative. Other: n/a LEFT: Common Femoral Vein: Negative. Profunda Femoral Vein: Negative. Femoral Vein: Negative. Popliteal Vein: Negative. Gastrocnemius Veins: Negative where seen. Soleal Veins: Short segment of occlusive acute DVT. Posterior Tibial Veins: Negative where seen. Peroneal Veins: Negative where seen. Great Saphenous Vein: Negative where seen. Small Saphenous Vein: Not Evaluated. Popliteal Fossa: Negative. Other: n/a Information on venous thrombosis and management can be found on the [employer] site. Link [email or web address] Findings were discussed with Kelton Cancino MD (#[id number]) at 11/01/2023 11:49 AM. Procedure Note Alireza Jean M.D. - 11/01/2023 EXAM: US LOWER EXTREMITY VEINS BILATERAL Exam performed with color and spectral Doppler analysis. COMPARISON: None available. FINDINGS: RIGHT: Common Femoral Vein: Negative. Profunda Femoral Vein: Negative. Femoral Vein: Negative. Popliteal Vein: Negative. Gastrocnemius Veins: Negative where seen. Soleal Veins: Negative where seen. Posterior Tibial Veins: Negative where seen. Peroneal Veins: Negative where seen. Great Saphenous Vein: Negative where seen. Small Saphenous Vein: Not Evaluated. Popliteal Fossa: Negative. Other: n/a LEFT: Common Femoral Vein: Negative. Profunda Femoral Vein: Negative. Femoral Vein: Negative. Popliteal Vein: Negative. Gastrocnemius Veins: Negative where seen. Soleal Veins: Short segment of occlusive acute DVT. Posterior Tibial Veins: Negative where seen. Peroneal Veins: Negative where seen. Great Saphenous Vein: Negative where seen. Small Saphenous Vein: Not Evaluated. Popliteal Fossa: Negative. Other: n/a Information on venous thrombosis and management can be found on the[employer] site. [email or web address] Findings were discussed with Kelton Cancino MD (#[id number]) at 1:49 AM. IMPRESSION: Short segment of acute DVT in a left soleal vein. Sharmaine Skelton M.D. IMG US PROCEDURES Final Result * Transfuse Red Blood Cells : (11/01/2023 8:41 AM CDT) us Sharmaine Skelton M.D. BLOOD TRANSFUSION ORDERABLES F inal Result * Transfuse Red Blood Cells : , 1 Units (11/01/2023 8:41 AM CDT) Sharmaine Skelton M.D. BLOOD TRANSFUSION ORDERABLES F inal Result * Ehrlichia/Anaplasma PCR, Blood (11/01/2023 2:47 AM CDT) Anaplasma phagocytophilum Negative Negative 11/01/2023 10:39 PM CDT DTL Ehrlichia chaffeensis Negative Negative 11/01/2023 10:39 PM CDT DTL Ehrlichia ewingii/canis Negative Negative 11/01/2023 10:39 PM CDT DTL Ehrlichia muris eauclairensis Negative Negative 11/01/2023 10:39 PM CDT DTL Comment: ----ADDITIONAL INFORMATION---- This test was developed and its performance characteristics determined by [facility] in a manner consistent with CLIA requirements. This test has not been cleared or approved by the U.S. Food and Drug Administration. Blood (Blood, Peripheral Draw) 11/01/2023 2:47 AM CDT 11/01/2023 3:18 AM CDT Sharmaine Skelton M.D. LAB MICROBIOLOGY - BLOOD ORDER VONNIE Final Result [facility] [place] [facility] [employer] [facility] [address] [place] [address], [facility] [address] [place] [address] * Lyme Ab Modified 2-Tier w/Reflex, Serum (11/01/2023 2:47 AM CDT) Lyme Ab Modified 2-Tier w/Reflex, S Negative Negative 11/01/2023 12:59 PM CDT [facility] Comment: Negative for antibodies to the Borrelia (Borreliella) species causing Lyme disease. Negative results may occur in recently infected (<=14 days) patients. If recent infection is suspected, repeat testing on a new sample collected in 7-14 days is recommended. Blood (Blood, Venous) 11/01/2023 2:47 AM CDT 11/01/2023 7:56 AM CDT Sharmaine Skelton M.D. LAB MICROBIOLOGY - BLOOD ORDER VONNIE Final Result Performing Organization Address [facility] Co de Phone Number [facility] [address] [place] [address] [facility] [address] [place] [address] * Borrelia miyamotoi Detection PCR, Blood (11/01/2023 2:47 AM CDT) B. miyamotoi PCR, B Negative Negative 10/31 10:38 PM CDT DTL Comment: ----ADDITIONAL INFORMATION---- This test was developed and its performance characteristics determined by [facility] in a manner consistent with CLIA requirements. This test has not been cleared or approved by the U.S. Food and Drug Administration. Blood (Blood, Peripheral Draw) 11/01/2023 2:47 AM CDT 11/01/2023 3:18 AM CDT Sharmaine Skelton M.D. LAB MICROBIOLOGY - BLOOD ORDER VONNIE Final Result Performing Organization Address [facility] Co de Phone Number [facility] [address] [place] [address], [place] DTL [address] [place] [address] * Babesia, PCR, Parasitemia Reflex (11/01/2023 2:47 AM CDT) Babesia microti Negative Negative 4 10:38 PM CDT DTL Babesia duncani Negative Negative 4 10:38 PM CDT DTL Babesia divergens/MO-1 Negative Negative 11/01/2023 10:38 PM CDT DTL Comment: ----ADDITIONAL INFORMATION---- This test was developed and its performance characteristics determined by [facility] in a manner consistent with CLIA requirements. This test has not been cleared or approved by the U.S. Food and Drug Administration. Blood (Blood, Venous) 11/01/2023 2:47 AM CDT 11/01/2023 3:18 AM CDT Sharmaine Skelton M.D. LAB MICROBIOLOGY - BLOOD ORDER VONNIE Final Result Performing Organization Address [facility]/ZIP Co de Phone Number [facility] [address] [place] [address], [facility] DT [address] [place] [address] * Direct Antiglobulin Test (Polyspecific) (11/01/2023 2:47 AM CDT) Direct Antiglobulin Test, Polyspecific Negative Negative 11/01/2023 3:15 AM CDT [facility] Blood (Blood, Venous) 11/01/2023 2:47 AM CDT 11/01/2023 2:55 AM CDT Sharmaine Skelton M.D. LAB BLOOD BANK TEST ORDERABLES Final Result Performing Organization Address [facility] Co de Phone Number [facility] [address] [place] [address], [facility] [address] [place] [address] * (ABNORMAL) CBC with Differential, Blood (11/01/2023 2:47 AM CDT) Hemoglobin 6.9(L) 11.6 - 15.0 g/dL 11/01/2023 3:50 AM CDT DTL Comment:Rule out contaminati on. Consider sample redraw if clinically indicated. Hematocrit 20.4(L) 35.5 - 44.9 % 11/01/2023 3:50 AM CDT DTL Erythrocytes 1.90(L) 3.92 - 5.13 x10(12)/L 11/01/2023 3:50 AM CDT DTL MCV 107.4(H) 78.2 - 97.9 fL 11/01/2023 3:50 AM CDT DTL RBC Distrib Width 18.4(H) 12.2 - 16.1 % 11/01/2023 3:50 AM CDT DTL Platelet Count 60(L) 157 - 371 x10(9)/L 11/01/2023 3:50 AM CDT DTL Leukocytes 2.3(L) 3.4 - 9.6 x10(9)/L 11/01/2023 3:50 AM CDT DTL Neutrophils 1.38(L) 1.56 - 6.45 x10(9)/L 11/01/2023 3:50 AM CDT [facility] Lymphocytes 0.69(L) 0.95 - 3.07 x10(9)/L 11/01/2023 3:50 AM CDT DTL Monocytes 0.20(L) 0.26 - 0.81 x10(9)/L 11/01/2023 3:50 AM CDT DTL Eosinophils <0.03 0.03 - 0.48 x10(9)/L 11/01/2023 3:50 AM CDT DTL Basophils <0.03 0.01 - 0.08 x10(9)/L 11/01/2023 3:50 AM CDT DTL Blood (Blood, Venous) 11/01/2023 2:47 AM CDT 11/01/2023 3:13 AM CDT Sharmaine Skelton M.D. LAB BLOOD ADD-ON Final Result [facility] [address] [place] [address], [facility] DTL [facility] [address] [place] [address] DHPM [facility] [address] [place] [address] * Lactate (11/01/2023 2:47 AM CDT) Lactate, P 1.3 0.5 - 2.2 mmol/L 11/01/2023 3:06 AM CDT ST[facility] Blood 11/01/2023 2:47 AM CDT 11/01/2023 2:54 AM CDT Sharmaine Skelton M.D. LAB BLOOD NON ADD-ON Final Res ult [facility] [address] [place] [address], [facility] [address] [place] [address] * Hematopathology (11/01/2023 12:00 AM CDT) 11/06/2023 9:[address] [facility] Report electronically signed by Mamie Angelo M.D., Ph.D. I verify that I have examined all relevant slides/materials for the specimen(s) and rendered or confirmed the diagnosis. 11/06/2023 9:[address] [facility] Gross Description B: Core biopsy specimens were received in B5 and were subsequently placed in formalin. Received in formalin labeled with the patient's name, medical record number, and bone marrow biopsy is a 0.3 cm in average diameter by 1.8 cm in length knapp-brown bone marrow core. Specimen is bisected and submitted entirely in cassette B1. The specimen was decalcified prior to processing. Grossed by ARG. C: Received in formalin labeled with the patient's name, medical record number, and bone marrow clot is a 2.1 x 1.3 x 0.5 cm aggregateof dark red bone marrow clot material. The specimen is submitted en toto in cassette C1. Grossed by ARG. 11/06/2023 9:[address] [facility] Addendum ADDENDUM Cytogenetic analysis, bone marrow ([id number], 11/01/2023): 46,XX,kate(7)add(7)( p15)add(7)(q22),add (20)(q13.1)[8]/46,X X[1 2] The result is abnormal. 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 A 7q deletion is a common chromosome abnormality in both de cristal and therapy-related myeloid malignancies, particularly MDS and AML. A 7q deletion is an intermediate prognostic finding in MDS and may be associated with an intermediate to unfavorable prognostic finding in AML (Desirelow et al., WHO Classification of Tumours of Haematopoietic and Lymphoid Tissues. IARC Press:Gill 2017; page 105; NCCN Guidelines Version 3,2020, MDS and AML). Clinical and pathologic correlation is recommended. See cytogenetics report for complete details. 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 Clinical correlation is recommended. Signed by Mamie Angelo M.D., Ph.D. 11/21/2023 8:07 AM 11/21/2023 8:[address] [facility] Comment:REVISED RESULTS Interpretation FINAL DIAGNOSIS Peripheral blood, bone marrow aspirate and biopsy, iliac crest: Normocellular bone marrow with morphologically unremarkable trilineage hematopoiesis, mild erythroid hyperplasia, and mild granulocytic hypoplasia. COMMENT The cause of the pancytopenia is unclear from review of the bone marrow. The differential diagnosis is broad, and the etiologies may be multifactorial, which may include drug/medication/tox ic/alcohol effect, liver disease, nutritional deficiencies, chronic infectious/inflamma tory conditions, paroxysmal nocturnal hemoglobinuria, collagen vascular disease/rheumatolog ic conditions and autoimmune disorders. Clinical correlation and correlation with pending cytogenetic studies is recommended. MICROSCOPIC DESCRIPTION Peripheral Blood: CBC - 11/01/2023 2:47:00 AM HGB 6.9 g/dL; RBC 1.90 x10(12)/L; MCV 107.4 fL; RDW 18.4 %; WBC 2.3 x10(9)/L; PLT 60 x10(9)/L -- Cell % of Total Cells NEUTROPHILS 51 LYMPHOCYTES 39 MONOCYTES 8 EOSINOPHILS 1 BASOPHILS 1 METAMYELOCYTES 0 MYELOCYTES 0 PROMYELOCYTES 0 BLASTS 0 OTHER CELLS 0 NRBC 0 Total Cells: 100 -- Peripheral Smear: Pancytopenia Red blood cells: Macrocytic anemia with slight polychromasia White blood cells: Leukopenia with absolute neutropenia and morphologically unremarkable white blood cells. Platelets: Thrombocytopenia with morphologically unremarkable platelets. Bone Marrow Aspirate/Biopsy: Aspirate quality: Cellular. Biopsy quality: Adequate. M:E ratio: Mildly decreased Cellularity: Normal, 20-30%. Erythroid precursors: Slightly increased quantity. Normal morphology. Myeloid precursors: Slightly decreased quantity. Normal morphology with mild left shift. Blasts not increased. Megakaryocytes: Normal quantity. Normal morphology and distribution. Lymphocytes: No morphologic abnormalities. Plasma cells: Not increased. ANCILLARY STUDIES Iron stain, bone marrow aspirate: Normal storage iron; no ring sideroblasts seen. Cytogenetic analysis, bone marrow aspirate: Sample has been forwarded for testing and results will be reported in an addendum. DNA/RNA extraction, bone marrow aspirate: Requested. Extracted sample(s) will be stored for 1 year from date of extraction. 11/21/2023 8:07 AM CDT [facility] 11/01/2023 11/01/2023 12: 50 PM CDT us Kathleen Welsh M.D., M.S. LAB SURG PATH ORDERAB LES Edited Result - Final [facility] [address] [place] [address], [facility] [address] [place] [address] * Bacteria / Jillian Culture, Blood #2 (10/31/2023 11:01 PM CDT) Bacteria/Annel da Culture, Blood No growth after 5 days of incubation. 11/06/2023 1:02 AM CDT DTL Blood (Blood, Peripheral Draw) 10/31/2023 11:01 PM CDT 10/31/2023 11:29 PM CDT Comment:Specimen Source Site : Blood Sharmaine Skelton M.D. LAB MICROBIOLOGY - GENERAL ORD ERABLES Final Result Performing Organization Address [facility] [place] [address] * Coagulation Factor VII Activity Assay (10/31/2023 10:51 PM CDT) Coag Factor VII Assay, P 147 65 - 180 % 11/02/2023 10:53 AM CDT DT Comment: ----ADDITIONAL INFORMATION---- This test has been modified from the floors buffer's instructions. Its performance characteristics were determined by [facility] in a manner consistent with CLIA requirements. This test has not been cleared or approved by the U.S. Food and Drug Administration. Blood 10/31/2023 10:5 1 PM CDT 11/01/2023 1:54 PM CDT Sharmaine Skelton M.D. LAB BLOOD ADD-ON Final Result Performing Organization Address [facility] [place] [address], [place] [address] * (ABNORMAL) Coag Factor X Assay, Plasma (10/31/2023 10:51 PM CDT) Coag Factor X Assay, P 49(L) 70 - 150 % 11/02/2023 10:53 AM CDT DT Comment: ----ADDITIONAL INFORMATION---- This test has been modified from the floors buffer's instructions. Its performance characteristics were determined by [facility] in a manner consistent with CLIA requirements. This test has not been cleared or approved by the U.S. Food and Drug Administration. Blood 10/31/2023 10:5 1 PM CDT 11/01/2023 1:54 PM CDT Sharmaine Skelton M.D. LAB BLOOD ADD-ON Final Result Performing Organization Address [facility] de Phone Number [facility] [address] [place] [address] * Coagulation Factor V Activity Assay (10/31/2023 10:51 PM CDT) Coag Factor V Assay, P >102 70 - 165 % 11/02/2023 10:56 AM CDT DT Comment: ----ADDITIONAL INFORMATION---- This test has been modified from the floors buffer's instructions. Its performance characteristics were determined by [facility] in a manner consistent with CLIA requirements. This test has not been cleared or approved by the U.S. Food and Drug Administration. Blood 10/31/2023 10:5 1 PM CDT 11/01/2023 1:54 PM CDT Sharmaine Skelton M.D. LAB BLOOD ADD-ON Final Result Performing Organization Address [facility] de Phone Number [facility] [address] [place] [address] * Coagulation Factor II Activity Assay (10/31/2023 10:51 PM CDT) Coag Factor II Assay, P 75 75 - 145 % 11/02/2023 10:53 AM CDT DT Comment: ----ADDITIONAL INFORMATION---- This test has been modified from the floors buffer's instructions. Its performance characteristics were determined by [facility] in a manner consistent with CLIA requirements. This test has not been cleared or approved by the U.S. Food and Drug Administration. Blood 10/31/2023 10:5 1 PM CDT 11/01/2023 1:54 PM CDT Sharmaine Skelton M.D. LAB BLOOD ADD-ON Final Result Performing Organization Address [facility]/ZIP Co de Phone Number [facility] [address] [place] [address], [facility] DTL [facility] [address] [place] [address] * HCV Ab w/Reflex to HCV PCR, Serum (10/31/2023 10:51 PM CDT) HCV Ab, S Negative Negative 11/01/2023 1:22 PM CDT [facility] Comment: Consumption of high-dose biotin supplement within 12 hours of blood collection for this test can cause false-negative results. Blood (Blood, Venous) 10/31/2023 10:51 PM CDT 11/01/2023 7:59 AM CDT Sharmaine Skelton M.D. LAB MICROBIOLOGY - BLOOD ORDER VONNIE Final Result Performing Organization Address [facility] Co de Phone Number [facility] [address] [place] [address] [facility] [address] [place] [address] * (ABNORMAL) Parvovirus B19 Ab, IgG and IgM (10/31/2023 10:51 PM CDT) Pathologist [facility] Parvovirus B19 Ab, IgG, S Positive(A) Negative 11/01/2023 12:50 PM CDT [facility] Parvovirus B19 Ab, IgM, S Negative Negative 11/01/2023 12:50 PM CDT [facility] Parvovirus B19 Ab Interpretation SEE COMMENT 11/01/2023 12:50 PM CDT [facility] Comment: Results suggest past infection. ----ADDITIONAL INFORMATION---- This test has been modified from the floors buffer's instructions. Its performance characteristics were determined by [facility] in a manner consistent with CLIA requirements. This test has not been cleared or approved by the U.S. Food and Drug Administration. Blood (Blood, Venous) 10/31/2023 10:51 PM CDT 11/01/2023 7:56 AM CDT Sharmaine Skelton M.D. LAB MICROBIOLOGY - BLOOD ORDER VONNIE Final Result Performing Organization Address [facility] de Phone Number [facility] [address] [place] [address] [facility] [address] [place] [address] * CMV DNA Detect / Quant, Plasma (10/31/2023 10:51 PM CDT) [facility] CMV DNA Detect/Quant, P Undetected Undetected IU/mL 11/01/2023 4:49 PM CDT [facility] Comment: Result in log IU/mL is Undetected. ----ADDITIONAL INFORMATION---- The quantification range of this assay is 35 to 10,000,000 IU/mL (1.54 log to 7.00 log IU/mL). Testing was performed using the annemarie CMV test ([employer] Blood (Blood, Venous) 10/31/2023 10:51 PM CDT 11/01/2023 7:30 AM CDT Sharmaine Skelton M.D. LAB MICROBIOLOGY - BLOOD ORDER VONNIE Final Result Performing Organization Address [facility] de Phone Number [facility] [address] [place] [address] [facility] [address] [place] [address] [place] [address] * EBV DNA Detect/Quant (10/31/2023 10:51 PM CDT) [facility] EBV DNA Detect/Quant, P Undetected Undetected IU/mL 11/01/2023 5:55 PM CDT [facility] Comment: Result in log IU/mL is Undetected. ----ADDITIONAL INFORMATION---- The quantification range of this assay is 35 to 100,000,000 IU/mL (1.54 log to 8.00 log IU/mL). Testing was performed using the annemarie EBV test ([employer] Blood (Blood, Venous) 10/31/2023 10:51 PM CDT 11/01/2023 7:30 AM CDT Sharmaine Skelton M.D. LAB MICROBIOLOGY - BLOOD ORDER VONNIE Final Result [facility] [address] [place], [place] [address] [facility] [address] [place] [address] [place] [address] * Lipid Panel (10/31/2023 10:51 PM CDT) [...] Skelton M.D. LAB BLOOD ADD-ON Final Result [facility] [address] [place] [address], [facility] [address] [place] [address] * (ABNORMAL) Iron and Total Iron-Binding Capacity (10/31/2023 10:51 PM CDT) Pathologist [facility] Iron 93 35 - 145 mcg/dL 11/01/2023 12:08 AM CDT DTL Total Iron Binding Capacity 178(L) 250 - 400 mcg/dL 11/01/2023 12:08 AM CDT DTL Percent Saturation 52(H) 14 - 50 % 11/01/2023 12:08 AM CDT DTL Blood (Blood, Venous) 10/31/2023 10:51 PM CDT 10/31/2023 11:28 PM CDT Sharmaine Skelton M.D. LAB BLOOD ADD-ON Final Result Performing Organization Address [facility]/ZIP Co de Phone Number [facility] [address] [place] [address], [facility] [address] [place] [address] * (ABNORMAL) Ferritin (10/31/2023 10:51 PM CDT) Pathologist [facility] Ferritin, S 1019(H) 11 - 328 mcg/L 11/01/2023 12:08 AM CDT DTL Blood (Blood, Venous) 10/31/2023 10:51 PM CDT 10/31/2023 11:28 PM CDT Sharmaine Skelton M.D. LAB BLOOD ADD-ON Final Result [facility] [address] [place] [address], [facility] [address] [place] [address] * Uric Acid (10/31/2023 10:51 PM CDT) [facility] Uric Acid, S 4.3 2.7 - 6.1 mg/dL 11/01/2023 12:08 AM CDT DT Blood (Blood, Venous) 10/31/2023 10:51 PM CDT 10/31/2023 11:28 PM CDT Sharmaine Skelton M.D. LAB BLOOD ADD-ON Final Result Performing Organization Address [facility] Co de Phone Number [facility] [address] [place] [address], [facility] [address] [place] [address] * HIV-1/-2 Ag and Ab Screen, Plasma (10/31/2023 10:51 PM CDT) [facility] HIV-1/-2 Ag and Ab Screen, P Negative Negative 11/01/2023 1:26 PM CDT [facility] Comment: Negative result does not rule out HIV infection. If exposure to HIV infection occurred <14 days ago, contact the laboratory to request addition of HIV-1/HIV-2 RNA detection, Plasma (HIP12). Blood (Blood, Venous) 10/31/2023 10:51 PM CDT 11/01/2023 7:59 AM CDT Sharmaine Skelton M.D. LAB MICROBIOLOGY - BLOOD ORDER VONNIE Final Result Performing Organization Address [facility] Co de Phone Number [facility] [address] [place] [address] [facility] [address] [place] [address] * Vitamin B12 Assay (10/31/2023 10:51 PM CDT) [facility] Vitamin B12 Assay, S 381 180 - 914 ng/L 11/01/2023 6:43 AM CDT [facility] Comment: ----ADDITIONAL INFORMATION---- In patients being evaluated for vitamin B12 deficiency who have intrinsic factor blocking antibodies (IFBA), false elevations of B12 may occur due to IFBA interference thus potentially obscuring a physiological deficiency of B12. If observed B12 concentrations are discordant with clinical presentation, measurement of methylmalonic acid (MMA) should be considered. Blood (Blood, Venous) 10/31/2023 10:51 PM CDT 10/31/2023 11:28 PM CDT Sharmaine Skelton M.D. LAB BLOOD ADD-ON Final Result Performing Organization Address [facility] de Phone Number [facility] [address] [place] [address], [facility] [address] [place] [address] * (ABNORMAL) PT Mix 1:1 (10/31/2023 10:50 PM CDT) Pathologist [facility] PT Mix 1:1 14.6(H) 9.4 - 12.5 sec 11/01/2023 11:29 AM CDT DT Comment: ----ADDITIONAL INFORMATION---- This test has been modified from the floors buffer's instructions. Its performance characteristics were determined by [facility] in a manner consistent with CLIA requirements. This test has not been cleared or approved by the U.S. Food and Drug Administration. Blood 10/31/2023 10:5 0 PM CDT 11/01/2023 7:12 AM CDT Sharmaine Skelton M.D. LAB BLOOD ADD-ON Final Result Performing Organization Address [facility] de Phone Number [facility] [address] [place] [address], [facility] [address] [place] [address] * Soluble Fibrin Monomer (10/31/2023 10:50 PM CDT) Pathologist [facility] Soluble Fibrin Monomer <5 <=8 mcg/mL 11/01/2023 11:26 AM CDT DTL Comment: ----ADDITIONAL INFORMATION---- This test was developed and its performance characteristics determined by [facility] in a manner consistent with CLIA requirements. This test has not been cleared or approved by the U.S. Food and Drug Administration. Blood 10/31/2023 10:5 0 PM CDT 11/01/2023 7:12 AM CDT Sharmaine Skelton M.D. LAB BLOOD NON ADD-ON Final Res ult Performing Organization Address [facility]/ZIP Co de Phone Number [facility] [address] [place] [address], [facility] DTL [facility] [address] [place] [address] * (ABNORMAL) Lactate for Sepsis with Reflex (10/31/2023 10:50 PM CDT) Lactate, P 3.1(H) 0.5 - 2.2 mmol/L 10/31/2023 11:[address] [facility] Blood (Blood, Venous) 10/31/2023 10:50 PM CDT 10/31/2023 11:09 PM CDT Sharmaine Skelton M.D. LAB BLOOD NON ADD-ON Final Res ult Performing Organization Address [facility]/ZIP Co de Phone Number [facility] [address] [place] [address], [facility] [address] [place] [address] * Haptoglobin (10/31/2023 10:50 PM CDT) Haptoglobin, S 33 30 - 200 mg/dL 11/01/2023 9:04 AM CDT [facility] Blood (Blood, Venous) 10/31/2023 10:50 PM CDT 11/01/2023 7:58 AM CDT Sharmaine Skelton M.D. LAB BLOOD ADD-ON Final Result [facility] [address] [place] [address] [facility] [address] [place] [address] * (ABNORMAL) LD (Lactate Dehydrogenase) (10/31/2023 10:50 PM CDT) [facility] LD 337(H) 122 - 222 U/L 10/31/2023 11:51 PM CDT DTL Blood (Blood, Venous) 10/31/2023 10:50 PM CDT 10/31/2023 11:36 PM CDT Sharmaine Skelton M.D. LAB BLOOD NON ADD-ON Final Res ult [facility] [address] [place] [address], [facility] [address] [place] [address] * (ABNORMAL) DIC/ICF Profile (10/31/2023 10:50 PM CDT) [facility] Prothrombin Time (PT), P 18.1(H) 9.4 - 12.5 sec 11/01/2023 11:28 AM CDT DTL INR 1.6 0.9 - 1.1 11/01/2023 11:28 AM CDT DTL Comment: ----ADDITIONAL INFORMATION---- Standard intensity warfarin therapeutic range: 2.0 to 3.0 High intensity warfarin therapeutic range: 2.5 to 3.5 Activated Partial Thrombopl Time, P 34 25 - 37 sec 11/01/2023 11:16 AM CDT DTL Thrombin Time (Bovine), P 24.4 15.8 - 24.9 sec 11/01/2023 11:15 AM CDT DTL Fibrinogen, Clauss, P 182(L) 200 - 500 mg/dL 11/01/2023 11:24 AM CDT DTL Comment: ----ADDITIONAL INFORMATION---- This test has been modified from the floors buffer's instructions. Its performance characteristics were determined by [facility] in a manner consistent with CLIA requirements. This test has not been cleared or approved by the U.S. Food and Drug Administration. D-DIMER, P 657(H) <=500 ng/mL FEU 11/01/2023 11:16 AM CDT DTL Comment: ----ADDITIONAL INFORMATION---- D-dimer values less than or equal to 500 ng/mL fibrinogen equivalent units (FEU) may be used in conjunction with clinical pre-test probability to exclude deep vein thrombosis (DVT) and/or pulmonary embolism (PE). Reviewed By Maulik Romero M.D., Ph.D. 11/02/2023 2:28 PM CDT DTL DIC/ICF Prof Interpretation IMPRESSION: 1) Elevated D-dimer but no definitive features of a decompensated disseminated intravascular coagulation (DIC). See comments. 2) Mildly reduced factor X coagulant activity, likely related to patient's oral anticoagulant therapy effect. COMMENTS: The result of mixing study of prolonged prothrombin time (PT) and slightly decreased factor X activity and non-parallelism of factor V coagulant activity are consistent with oral anticoagulant therapy effect. Recommend clinical correlation. Fibrinogen activity is essentially normal. Elevation of fibrin D-dimer can occur in association with recent bleeding, surgery or thromboembolism, hypercoagulable state, liver disease. Although the negative soluble fibrin monomer complexes do not support a diagnosis of intravascular coagulation and fibrinolysis (ICF/DIC), clinical correlation is suggested. Thrombocytopenia is noted from General Hematology Laboratory. Interpreted by Demetris Romero M.D., Ph.D./nlw 11/02/2023 2:28 PM CDT DTL Blood (Blood, Venous) 10/31/2023 10:50 PM CDT 11/01/2023 7:12 AM CDT [facility] - [employer] [facility] [employer] [facility] - 11/02/2023 2:28 PM CDT Specimen Information: Specimen ID: [id number] Specimen Type: Blood Specimen Collection Start Date: 10/31/2023 10:51 PM Specimen Received Date: 11/01/2023 7:12 AM Specimen ID: [id number] Specimen Type: Blood Specimen Collection Start Date: 10/31/2023 10:51 PM Specimen Received Date: 11/01/2023 7:12 AM Specimen ID: [id number] Specimen Type: Blood Specimen Collection Start Date: 10/31/2023 10:51 PM Specimen Received Date: 11/01/2023 7:12 AM Specimen ID: [id number] Specimen Type: Blood Specimen Collection Start Date: 10/31/2023 10:51 PM Specimen Received Date: 11/01/2023 7:12 AM Specimen ID: [id number] Specimen Type: Blood Specimen Collection Start Date: 10/31/2023 10:50 PM Specimen Received Date: 11/01/2023 7:12 AM Sharmaine Skelton M.D. LAB BLOOD NON ADD-ON Final Res ult Performing Organization Address [facility] de Phone Number [facility] [address] [place] [address] DT 200 [place] [address] * (ABNORMAL) Reticulocytes (10/31/2023 10:50 PM CDT) Reticulocytes, B 3.37(H) 0.60 - 2.71 % 10/31/2023 11:24 PM CDT DTL Absolute Reticulocyte 72.5 30.4 - 110.9 x10(9)/L 10/31/2023 11:24 PM CDT DTL Blood (Blood, Venous) 10/31/2023 10:50 PM CDT 10/31/2023 11:17 PM CDT Sharmaine Skelton M.D. LAB BLOOD ADD-ON Final Result Performing Organization Address [facility] de Phone Number [facility] [address] [place], [place] [address] [place] [phone] * (ABNORMAL) Morphology Eval (special smear) (10/31/2023 10:50 PM CDT) Neutrophilic Segs and Bands 55 50 - 75 % 11/01/2023 1:21 AM CDT [facility] Lymphocytes 38 18 - 42 % 11/01/2023 1:21 AM CDT [facility] Monocytes 4 2 - 11 % 11/01/2023 1:21 AM CDT [facility] Eosinophils 1 1 - 3 % 11/01/2023 1:21 AM CDT [facility] Basophils 1 0 - 2 % 11/01/2023 1:21 AM CDT [facility] Myelocytes 1(H) <0.5 % 11/01/2023 1:21 AM CDT PM Interpretation See Comment 1:21 AM CDT PM Comment: Peripheral blood smear reviewed: no diagnostic abnormalities are seen. Polychromasia is present. No schistocytes are seen. No platelet clumping. Reviewed by: Rach 11/01/2023 1:21 AM CDT [facility] Blood (Blood, Venous) 10/31/2023 10:50 PM CDT 10/31/2023 11:17 PM CDT Sharmaine Skelton M.D. LAB BLOOD ADD-ON Final Result Performing Organization Address [facility] Co de Phone Number [facility] 200 [place] [address], [facility] 200 [place] [address] * (ABNORMAL) Prothrombin Time (PT) (10/31/2023 10:50 PM CDT) Prothrombin Time, P 17.7(H) 9.4 - 12.5 sec 10/31/2023 11:46 PM CDT DTL INR 1.6 0.9 - 1.1 10/31/2023 11:46 PM CDT DTL Comment: ----ADDITIONAL INFORMATION---- Standard intensity warfarin therapeutic range: 2.0 to 3.0 High intensity warfarin therapeutic range: 2.5 to 3.5 Blood (Blood, Venous) 10/31/2023 10:50 PM CDT 10/31/2023 11:17 PM CDT Sharmaine Skelton M.D. LAB BLOOD ADD-ON Final Result Performing Organization Address [facility] Co de Phone Number [facility] [address] [place] [address], [facility] DTL [facility] [address] [place] [address] * Bacteria / Jillian Culture, Blood #1 (10/31/2023 10:49 PM CDT) Pathologist [facility] Bacteria/Annel da Culture, Blood No growth after 5 days of incubation. 11/06/2023 1:02 AM CDT DTL Blood (Blood, Peripheral Draw) 10/31/2023 10:49 PM CDT 10/31/2023 11:27 PM CDT Comment:Specimen Source Site : Blood Sharmaine Skelton M.D. LAB MICROBIOLOGY - GENERAL ORD ERABLES Final Result [facility] [address] [place] [address], [address] [address] * APTT (Activated Partial Thromboplastin Time) (10/31/2023 10:34 PM CDT) Pathologist [facility] Activated Partial Thrombopl Time, P 35 25 - 37 sec 11/01/2023 1:28 AM CDT DT Blood (Blood, Venous) 10/31/2023 10:34 PM CDT 11/01/2023 12:58 AM CDT Sharmaine Skelton M.D. LAB BLOOD ADD-ON Final Result [facility] [address] [place] [address], [address] [address] * (ABNORMAL) Hepatic Function Panel (10/31/2023 8:16 PM CDT) Pathologist [facility] Bilirubin, Total, S 0.6 0.0 - 1.2 mg/dL 10/31/2023 9:00 PM CDT DTL Bilirubin, Direct, S 0.3 0.0 - 0.3 mg/dL 10/31/2023 9:00 PM CDT DTL Aspartate Aminotransferase (AST), S 64(H) 8 - 43 U/L 10/31/2023 9:00 PM CDT DTL Alanine Aminotransferase (ALT), S 28 7 - 45 U/L 10/31/2023 9:00 PM CDT DTL Alkaline Phosphatase, S 59 35 - 104 U/L 10/31/2023 9:00 PM CDT DTL Albumin, S 3.6 3.5 - 5.0 g/dL 10/31/2023 9:00 PM CDT DTL Protein, Total, S 5.2(L) 6.3 - 7.9 g/dL 10/31/2023 9:00 PM CDT DTL Blood (Blood, Venous) 10/31/2023 8:16 PM CDT 10/31/2023 8:45 PM CDT Jacob Loja M.D. LAB BLOOD ADD-ON Final Res ult Performing Organization Address [facility] Co de Phone Number [facility] [address] [place] [address], [facility] DTL [facility] [address] [place] [address] * (ABNORMAL) Troponin T, 2 Hour with 6 Hour Reflex, 5th Gen (10/31/2023 8:16 PM CDT) Troponin T, 2 hr, 5th gen 28(H) <=10 ng/L 10/31/2023 8:53 PM CDT [facility] 2H Delta -2 ng/L 10/31/2023 8:53 PM CDT [facility] Comment:6 hour collection no t indicated. 2H Delta Interp Not Changing 10/31/2023 8:53 PM CDT [facility] Blood 10/31/2023 8:16 PM CDT 10/31/2023 8:21 PM CDT Charlette Tristan M.D., Ph.D. LAB BLOOD TROPONIN Final Result Performing Organization Address [facility] Co de Phone Number [facility] [address] [place] [address], [facility] STMA [facility] [address] [place] [address] * pH, Urine (10/31/2023 6:05 PM CDT) pH, U 5.1 4.5 - 8.0 10/31/2023 7:0 2 PM CDT DTL Urine 10/31/2023 6:05 PM CDT 10/31/2023 6:34 PM CDT Suman Juárez M.D. LAB URINE ORDERABLES Rosmery l Result Performing Organization Address [facility] Co de Phone Number [facility] [address] [place] [address], [facility] [address] [place] [address] * Dipstick, Urine (10/31/2023 6:05 PM CDT) Hemoglobin, QL, U Negative Negative 10/31/2023 6:42 PM CDT DTL Leukocyte Esterase, U Negative Negative 10/31/2023 6:42 PM CDT DTL Nitrite, U Negative Negative 10/31/2023 6:42 PM CDT DTL Ketone, U Negative Negative mg/dL 10/31/2023 6:42 PM CDT DTL Glucose, U Negative Negative mg/dL 10/31/2023 6:42 PM CDT DTL Urine 10/31/2023 6:05 PM CDT 10/31/2023 6:34 PM CDT Suman Juárez M.D. LAB URINE ORDERABLES Rosmery l Result [facility] [address] [place] [address], [place] [facility] [address] [place] [address] * Osmolality, Urine (10/31/2023 6:05 PM CDT) Osmolality, U 383 150 - 1150 mOsm/kg 10/31/2023 7:02 PM CDT DTL Urine 10/31/2023 6:05 PM CDT 10/31/2023 6:34 PM CDT Suman Juárez M.D. LAB URINE ORDERABLES Rosmery l Result Performing Organization Address [facility] Co de Phone Number [facility] [address] [place] [address], [facility] [address] [place] [address] * Microscopic Automated (10/31/2023 6:05 PM CDT) Microscopy Normal 10/31/2023 6:42 PM CDT DTL RBC None Seen <3 /hpf 10/31/2023 6:42 PM CDT DTL WBC None Seen /hpf 10/31/2023 6:42 PM CDT DTL Comment: ----REFERENCE VALUE---- <4 (Males) <11 (Females) Casts, Hyaline 11-20 /lpf 10/31/2023 6:42 PM CDT DTL Urine 10/31/2023 6:05 PM CDT 10/31/2023 6:34 PM CDT Suman Juárez M.D. LAB URINE ORDERABLES Rosmery l Result Performing Organization Address [facility] Co de Phone Number [facility] [address] [place] [address], [facility] [address] [place] [address] * Bacterial Culture, Aerobic + Susceptibility, Urine (10/31/2023 6:05 PM CDT) Urine Culture Urogenital microbiota, susceptibilities not performed per laboratory criteria. 11/03/2023 8:39 AM CDT DTL Urine (Urine, Midstream) 10/31/2023 6:05 PM CDT 10/31/2023 9:36 PM CDT Comment:Specimen Source Site : Urine us Suman Juárez M.D. LAB MICROBIOLOGY - GENERA L ORDERABLES Final Result Performing Organization Address [facility] Co de Phone Number [facility] [address] [place] [address], [facility] [address] [place] [address] * Urinalysis, with Microscopic: Urine, Midstream (10/31/2023 6:05 PM CDT) Source Urine, Urine, Midstream 10/31/2023 6:33 PM CDT DTL Color, U Yellow 10/31/2023 6:34 PM CDT DTL Clarity, U Clear 10/31/2023 6:34 PM CDT DTL Protein, U 10 <26 mg/dL 10/31/2023 7:17 PM CDT DTL Protein/Osmol ality 0.26 <0.42 ratio 10/31/2023 7:17 PM CDT DTL Predicted 24 HR Protein, U 198 <229 mg/24 h 10/31/2023 7:17 PM CDT DTL Predicted Range 49-800 mg/24 h 10/31/2023 7:17 PM CDT DTL Urine (Urine, Midstream) 10/31/2023 6:05 PM CDT 10/31/2023 6:33 PM CDT Suman Juárez M.D. LAB URINE ORDERABLES Rosmery galvan Result [facility] [address] [place] [address], [facility] [address] [place] [address] * ECG 12 Lead (10/31/2023 5:25 PM CDT) Ventricular Rate ECG/Min 89 BPM MUSE MI Interval 220 ms MUSE QRSD Interval 82 ms MUSE QT Interval 370 ms MUSE QTC Interval 450 ms MUSE P Sandy 71 degrees MUSE R Sandy 45 degrees MUSE T Wave Sandy 227 degrees MUSE 10/31/2023 5:25 PM CDT 10/31/2023 5:42 PM CDT Impressions MUSE - 10/31/2023 5:42 PM CDT Sinus rhythm with 1st degree A-V block ST and T wave abnormality, consider anterolateral ischemia When compared with ECG of 11-Aug-2023 10:35, T wave inversion now evident in Lateral leads QT has shortened Reviewed by KEVIN Simon Narrative Procedure Note Filiberto Trevizo M.D. - 10/31/2023 IMPRESSION: Sinus rhythm with 1st degree A-V block ST and T wave abnormality, consider anterolateral ischemia When compared with ECG of 11-Aug-2023 10:35, T wave inversion now evident in Lateral leads QT has shortened Reviewed by KEVIN Simon us Suman Juárez M.D. ECG ORDERABLES Final Res ult MUSE NA * DX Chest AP or PA and Lateral 2 Views (10/31/2023 4:49 PM CDT) Anatomical Region Laterality Modality Chest, Thoracic RST LOS, Tho racic ARZ LOS, Thoracic FLA LOS N/A Digital Radiography Impressions 10/31/2023 5:53 PM CDT Since 08/11/2023, interval resolution of subcutaneous emphysema. Improved bibasilar airspace opacities. Similar to slightly decreased persistent patchy airspace opacities in the mid to lower right lung and along the right heart border, likely a component of scarring. No pneumothorax. Aortic calcification. MVR. Degenerative changes of the spine. Narrative 10/31/2023 5:53 PM CDT EXAM: DX CHEST AP OR PA AND LATERAL 2 VIEWS Procedure Note Chino Lilly M.D., M.S. - 10/31/2023 EXAM: DX CHEST AP OR PA AND LATERAL 2 VIEWS IMPRESSION: Since 08/11/2023, interval resolution of subcutaneous emphysema. Improvedbibasilar airspace opacities. Similar to slightly decreased persistentpatchy airspace opacities in the mid to lower right lung and along theright heart border, likely a component of scarring. No pneumothorax. Aortic calcification. MVR.Degenerative changes of the spine. us Suman Juárez M.D. IMG DIAGNOSTIC IMAGING MI OCEDURES Final Result * Glucose, POCT (10/31/2023 4:35 PM CDT) [facility] Glucose, POCT, B 87 70 - 140 mg/dL 10/31/2023 9:55 PM CDT PCLX Blood (Blood, Capillary) 10/31/2023 4:35 PM CDT 10/31/2023 4:35 PM CDT Suman Juárez M.D. LAB POCT ORDERABLES-MATTHEWA Mercedes Final Result Performing Organization Address [facility]/ZIP Co de Phone Number POC [facility] [address] [place] [address], [facility] PCLX [facility] [address] [place] [address] * Type and Screen (with Reflex Antibody ID) (10/31/2023 4:34 PM CDT) [facility] ABORh A Pos Not applicable 10/31/2023 5:16 PM CDT STRM Antibody Screen Negative Negative 10/31/2023 5:33 PM CDT STRM Type & Screen Expiration 11/03/2023 23:59 10/31/2023 5:16 PM CDT STRM Testing Location [place] DEFAULT 10/31/2023 4:52 PM CDT STRM Blood (Blood, Venous) 10/31/2023 4:34 PM CDT 10/31/2023 4:52 PM CDT Adam Hernandez P.A.-C. LAB BLOOD BANK TEST ORD ERABLES Final Result [facility] [address] [place] [address], [facility] STRM [facility] [address] [place] [address] * (ABNORMAL) Troponin T, Baseline with 2 Hour/6 Hour Reflex Biomarker Panel (10/31/2023 4:34 PM CDT) [facility] Troponin T, Baseline, 5th gen 30(H) <=10 ng/L 10/31/2023 5:03 PM CDT STMA Blood (Blood, Venous) 10/31/2023 4:34 PM CDT 10/31/2023 4:40 PM CDT us Suman Juárez M.D. LAB BLOOD TROPONIN Final Result [facility] [address] [place] [address], [facility] STMA [facility] [address] [place] [address] * (ABNORMAL) CBC with Differential, Blood (10/31/2023 4:34 PM CDT) Hemoglobin 7.8(L) 11.6 - 15.0 g/dL 10/31/2023 4:51 PM CDT STMA Hematocrit 23.2(L) 35.5 - 44.9 % 10/31/2023 4:51 PM CDT STMA Erythrocytes 2.13(L) 3.92 - 5.13 x10(12)/L 10/31/2023 4:51 PM CDT STMA MCV 108.9(H) 78.2 - 97.9 fL 10/31/2023 4:51 PM CDT STMA RBC Distrib Width 18.8(H) 12.2 - 16.1 % 10/31/2023 4:51 PM CDT STMA Platelet Count 70(L) 157 - 371 x10(9)/L 10/31/2023 4:51 PM CDT STMA Leukocytes 2.1(L) 3.4 - 9.6 x10(9)/L 10/31/2023 4:51 PM CDT STMA Neutrophils 1.09(L) 1.56 - 6.45 x10(9)/L 10/31/2023 4:51 PM CDT DHPM Lymphocytes 0.82(L) 0.95 - 3.07 x10(9)/L 10/31/2023 4:51 PM CDT STMA Monocytes 0.18(L) 0.26 - 0.81 x10(9)/L 10/31/2023 4:51 PM CDT STMA Eosinophils <0.03 0.03 - 0.48 x10(9)/L 10/31/2023 4:51 PM CDT STMA Basophils 0.03 0.01 - 0.08 x10(9)/L 10/31/2023 4:51 PM CDT STMA Blood (Blood, Venous) 10/31/2023 4:34 PM CDT 10/31/2023 4:40 PM CDT Suman Juárez M.D. LAB BLOOD ADD-ON Final Re sult [facility] [address] [place] [address], [facility] STMA [facility] [address] [place] [address] [facility] [address] [place] [address] * (ABNORMAL) Basic Metabolic Panel (10/31/2023 4:34 PM CDT) Pathologist [facility] Potassium, P 4.2 3.6 - 5.2 mmol/L 10/31/2023 5:00 PM CDT STMA Sodium, P 135 135 - 145 mmol/L 10/31/2023 5:00 PM CDT STMA Chloride, P 95(L) 98 - 107 mmol/L 10/31/2023 5:00 PM CDT STMA Bicarbonate, P 23 22 - 29 mmol/L 10/31/2023 5:00 PM CDT STMA Anion Gap, P 17(H) 7 - 15 10/31/2023 5:00 PM CDT STMA BUN (Blood Urea Nitrogen), P 7 6 - 21 mg/dL 10/31/2023 5:00 PM CDT STMA Creatinine 0.62 0.59 - 1.04 mg/dL 10/31/2023 5:00 PM CDT STMA Estimated GFR (eGFR) >90 >=60 mL/min/BSA 10/31/2023 5:00 PM CDT STMA Comment: Estimated GFR calculated using the 2020 CKD_EPI creatinine equation. Calcium, Total, P 8.4(L) 8.8 - 10.2 mg/dL 10/31/2023 5:00 PM CDT STMA Glucose, P 88 70 - 140 mg/dL 10/31/2023 5:00 PM CDT STMA Blood (Blood, Venous) 10/31/2023 4:34 PM CDT 10/31/2023 4:40 PM CDT Suman Juárez M.D. LAB BLOOD ADD-ON Final Re sult [facility] [employer] [facility] [address] [place] [address], [facility] STMA [facility] [address] [place] [address] documented in this encounter Visit Diagnoses Diagnosis Pancytopenia (HCC)- Primary Pancytopenia (HCC) Anemia Macrocytic Stenosis Spinal documented in this encounter Admitting Diagnoses Diagnosis Pancytopenia (HCC) documented in this encounter Administered Medications Inactive Administered Medications - up to 3 most recent administrations Medication Order MAR Action Action Date Dose Rate Site acetaminophen tablet 1,000 mg (TYLENOL) 1,000 mg, oral, Once as needed, mild pain or score 1-3 of 10, moderate pain or score 4-6 of 10, severe pain or score 7-10 of 10, fever, temperature greater than 38 C, Starting on Mon10/31/23 at 2054, For 1 dose Given 10/31/2023 9:07 PM CDT 1,000 mg acetaminophen tablet 650 mg (TYLENOL) 650 mg, oral, Every 4 hours PRN, mild pain or score 1-3 of 10, moderate pain or score 4-6 of 10, Starting on Mon11/01/23 at 0300, Not to exceed 4 grams of acetaminophen in 24 hours all sources Given 11/01/2023 4:26 PM CDT 650 mg Given 11/01/2023 11:55 AM CDT 650 mg Given 11/01/2023 6:21 AM CDT 650 mg acetaminophen tablet 650 mg (TYLENOL) 650 mg, oral, 4 times daily, First dose (after last modification) on Mon11/01/23 at 2100 Given 11/01/2023 8:37 PM CDT 650 mg acetaminophen tablet 650 mg (TYLENOL) 650 mg, oral, Every 6 hours, First dose (after last modification) on Mon11/02/23 at 0345 Given 11/03/2023 11:15 AM CDT 650 mg Given 11/03/2023 3:02 AM CDT 650 mg Given 11/02/2023 8:26 PM CDT 650 mg ADEK multivitamins with minerals 1,500-1,000 unit-mcg chewable 1 tablet (MVW COMPLETE FORMULATION) 1 tablet, oral, Daily, First dose on Mon11/03/23 at 0630 Given 11/03/2023 8:37 AM CDT 1 tablet nejkzubuxavag-oczbkdhnuk-znuwzwvl in Lipoderm 2%-5%-5% cream 1 g 1 g, topical, 2 times daily, First dose (after last modification) on Mon11/01/23 at 1600 Given 11/03/2023 8:34 AM CDT 1 g Given 11/02/2023 8:25 PM CDT 1 g Given 11/02/2023 10:49 AM CDT 1 g atorvastatin tablet 20 mg (LIPITOR) 20 mg, oral, Daily, First dose on Mon11/01/23 at 0900 Given 11/03/2023 8:37 AM CDT 20 mg Given 11/02/2023 10:48 AM CDT 20 mg Given 11/01/2023 8:43 AM CDT 20 mg azithromycin tablet 500 mg (ZITHROMAX) 500 mg, oral, Daily, First dose (after last modification) on Mon11/02/23 at 0715, For 3 days, Indications: Campylobacter infectionIndications:Campylobacter infection Given 11/03/2023 8:37 AM CDT 500 mg Given 11/02/2023 10:48 AM CDT 500 mg buPROPion XL 24 hr tablet 150 mg (WELLBUTRIN XL) 150 mg, oral, Daily, First dose on Mon11/01/23 at 0900, Swallow whole. Do NOT crush, chew, or split tablet. Given 11/03/2023 8:37 AM CDT 150 mg Given 11/02/2023 10:48 AM CDT 150 mg Given 11/01/2023 8:43 AM CDT 150 mg calcium carbonate tablet 500 mg of calcium 500 mg of calcium, oral, Daily with morning meal, First dose on Mon11/01/23 at 0800, calcium carbonate 1250 mg (500 mg elemental) was interchanged for calcium carbonate 1500 mg (600 mg elemental) Given 11/03/2023 8:37 AM CDT 500 mg of calcium Given 11/02/2023 10:48 AM CDT 500 mg of calcium gabapentin capsule 300 mg (NEURONTIN) 300 mg, oral, 3 times daily, First dose (after last modification) on Mon11/01/23 at 0045 Given 11/03/2023 2:10 PM CDT 300 mg Given 11/03/2023 8:37 AM CDT 300 mg Given 11/02/2023 8:25 PM CDT 300 mg Lactated Ringer's bolus 1,000 mL 1,000 mL, intravenous, at 500 mL/hr, Administer over 2 Hours, Once, On Mon11/01/23 at 0130, For 1 dose New Bag 11/01/2023 1:49 AM CDT 1,000 mL 500 mL/hr lidocaine 5 % 1 patch (LIDODERM) 1 patch, transdermal, Administer over 12 Hours, Daily, First dose on Mon11/01/23 at 0045, Remove after 12 hours. Medication Applied 11/01/2023 12:48 AM CDT 1 patch Other lidocaine 5 % 1 patch (LIDODERM) 1 patch, transdermal, Administer over 12 Hours, Daily, First dose (after last modification) on Mon11/01/23 at 1600, Remove after 12 hours. Medication Applied 11/03/2023 8:34 AM CDT 1 patch Other Medication Applied 11/02/2023 10:49 AM CDT 1 patch Right Leg Medication Applied 11/01/2023 4:26 PM CDT 1 patch Right Leg melatonin tablet 5 mg 5 mg, oral, Daily at bedtime, First dose on Mon10/31/23 at 2345 Given 11/02/2023 8:25 PM CDT 5 mg Given 11/01/2023 8:38 PM CDT 5 mg Given 10/31/2023 11:55 PM CDT [address] tablet 40 mg (PROTONIX) 40 mg, oral, Daily before morning meal, First dose on Mon11/01/23 at 0700, pantoprazole 40 mg oral daily was interchanged for omeprazole 20 or 40 mg oral daily Swallow whole. Do NOT crush, chew, or split tablet. Given 11/03/2023 6:31 AM CDT 40 mg Given 11/02/2023 6:37 AM CDT 40 mg Given 11/01/2023 6:31 AM CDT 40 mg pediatric sjbaxlrdjsyc-wvff-dfjzjaxb chewable tablet 1 tablet (FLINTSTONES COMPLETE) 1 tablet, oral, Daily, First dose on Mon11/03/23 at 0900 potassium chloride ER tablet 60 mEq (KLORCON/K-TAB) 60 mEq, oral, Once, On Mon11/02/23 at 0945, For 1 dose, Swallow whole. Do NOT crush, chew, or split tablet. Given 11/02/2023 10:48 AM CDT 60 mEq rivaroxaban tablet 20 mg (XARELTO) 20 mg, oral, Daily with evening meal, First dose (after last modification) on Mon11/02/23 at 1700 Given 11/02/2023 6:01 PM CDT 20 mg sodium chloride 0.9 % injection 10 mL 10 mL, intravenous, As needed, line care, Starting on Mon10/31/23 at 1615, Peripheral Intravenous Catheter and Rapid Infusion Catheter, prior to blood sampling, post blood transfusion or post blood sampling sodium chloride 0.9 % injection 3 mL 3 mL, intravenous, As needed, line care, Starting on Mon10/31/23 at 1615, Prior to and following infusion and between multiple consecutive infusions: sodium chloride 0.9 % injection sodium chloride 0.9 % injection 3 mL 3 mL, intravenous, Every 12 hours scheduled, First dose on Mon10/31/23 at 2100, Peripheral Intravenous Catheter and Rapid Infusion Catheter, when no infusion to maintain patency Given 11/03/2023 8:38 AM CDT 3 mL Given 11/02/2023 8:30 PM CDT 3 mL Given 11/02/2023 10:49 AM CDT 3 mL documented in this encounter Active and Recently Administered Medications Times are shown in CDT. Scheduled Medication Order 11/01/2023 11/02/2023 11/03/2023 acetaminophen tablet 650 mg (TYLENOL) (CANCELED) 650 mg, oral, 4 times daily, First dose (after last modification) on Mon11/01/23 at 2100 2037 (Given - Provider: Noemy Menendez R.N.) acetaminophen tablet 650 mg (TYLENOL) 650 mg, oral, Every 6 hours, First dose (after last modification) on Mon11/02/23 at 0345 0325 (Given - Provider: Ten Gordon Jr., R.NHomero)1048 (Given - Provider: Vida Corona, R.N.)1500 (Given - Provider: Vida Corona, R.N.)2026 (Given - Provider: Ten Gordon Jr., R.NHomero) 0302 (Given - Provider: Ten Gordon Jr., R.N.)1115 (Given - Provider: Mamie Ambrosio R.N.) ADEK multivitamins with minerals 1,500-1,000 unit-mcg chewable 1 tablet (MVW COMPLETE FORMULATION) (CANCELED) 1 tablet, oral, Daily, First dose on Mon11/03/23 at 0630 0837 (Given - Provider: Mamie Ambrosio R.N.) amitriptyline-gabapenti n-ketamine in Lipoderm 2%-5%-5% cream 1 g 1 g, topical, 2 times daily, First dose (after last modification) on Mon11/01/23 at 1600 1626 (Given - Provider: Dede Lr R.N.) 1049 (Given - Provider: Vida Corona, R.N.)2024 (Given - Provider: Ten Gordon Jr. RHomeroNHomero) 0834 (Given - Provider: Mamie Ambrosio R.N.) atorvastatin tablet 20 mg (LIPITOR) 20 mg, oral, Daily, First dose on Mon11/01/23 at 0900 0843 (Given - Provider: Vida Corona, R.N.) 1048 (Given - Provider: Vida Corona, R.N.) 0837 (Given - Provider: Mamie Ambrosio R.N.) azithromycin tablet 500 mg (ZITHROMAX) 500 mg, oral, Daily, First dose (after last modification) on Mon11/02/23 at 0715, For 3 days, Indications: Campylobacter infection 1048 (Given - Provider: Vida Corona, R.N.) 0837 (Given - Provider: Mamie M Hebert, R.N.) buPROPion XL 24 hr tablet 150 mg (WELLBUTRIN XL) 150 mg, oral, Daily, First dose on Mon11/01/23 at 0900, Swallow whole. Do NOT crush, chew, or split tablet. 0843 (Given - Provider: Vida Corona, R.N.) 1048 (Given - Provider: Vida Corona, R.N.) 0837 (Given - Provider: Mamie Ambrosio R.N.) calcium carbonate tablet 500 mg of calcium 500 mg of calcium, oral, Daily with morning meal, First dose on Mon11/01/23 at 0800, calcium carbonate 1250 mg (500 mg elemental) was interchanged for calcium carbonate 1500 mg (600 mg elemental) 0800 (Not Given - Provider: Vida Corona, R.N. - Reason: NPO) 1048 (Given - Provider: Vida Corona, R.N.) 0837 (Given - Provider: Mamie Ambrosio R.N.) gabapentin capsule 300 mg (NEURONTIN) 300 mg, oral, 3 times daily, First dose (after last modification) on Mon11/01/23 at 0045 0046 (Given - Provider: Rashida Mckeon RHomeroN.)0843 (Given - Provider: Geoff Corona., R.N.)1531 (Given - Provider: Vida Corona, R.N.)2038 (Given - Provider: Noemy Menendez RHomeroN.) 1048 (Given - Provider: Jovanni CoronaS.Ranjith, R.N.)1500 (Given - Provider: Jim Redman M.S.Ranjith, R.N.)2025 (Given - Provider: Ten Gordon Jr. R.N.) 0837 (Given - Provider: Mamie Ambrosio R.N.)1410 (Given - Provider: Kathy CoxN.) Lactated Ringer's bolus 1,000 mL (COMPLETED) 1,000 mL, intravenous, at 500 mL/hr, Administer over 2 Hours, Once, On Mon11/01/23 at 0130, For 1 dose 0149 (New Bag - Provider: Rashida Mckeon R.N.) lidocaine (PF) 10 mg/mL (1 %) injection 20 mL (XYLOCAINE) 20 mL, infiltration, Once, On Mon11/01/23 at 1230, For 1 dose 1524 (Not Given - Provider: Dede Lr R.N. - Reason: Other) lidocaine 5 % 1 patch (LIDODERM) 1 patch, transdermal, Administer over 12 Hours, Daily, First dose on Mon11/01/23 at 0045, Remove after 12 hours. 0048 (Medication Applied - Provider: Rashida Mckeon R.N. - Comment: r hip)1212 (Medication Removed - Provider: Vida Corona, R.N. - Comment: Medication not present on ptn) 1050 (Not Given - Provider: Vida Corona, R.NHomero - Reason: Patient/family refused) 0842 (Not Given - Provider: Mamie Ambrosio R.N. - Reason: Patient/family refused) lidocaine 5 % 1 patch (LIDODERM) 1 patch, transdermal, Administer over 12 Hours, Daily, First dose (after last modification) on Mon11/01/23 at 1600, Remove after 12 hours. 1626 (Medication Applied - Provider: Dede Lr R.N.) 0637 (Medication Removed - Provider: Ten Gordon Jr., R.N.)1049 (Medication Applied - Provider: Vida Corona, R.NHomero)2032 (Medication Removed - Provider: Ten Gordon Jr., R.N.) 0834 (Medication Applied - Provider: Mamie Ambrosio R.N. - Comment: R hip)1425 (Due: Medication Removed - Provider: Discharge Provider, Automatic - Comment: Time automatically adjusted from order being discontinued) melatonin tablet 5 mg 5 mg, oral, Daily at bedtime, First dose on Mon10/31/23 at 2345 2038 (Given - Provider: Noemy Menendez R.N.) 2025 (Given - Provider: Ten Gordon Jr., R.N.) pantoprazole DR tablet 40 mg (PROTONIX) 40 mg, oral, Daily before morning meal, First dose on Mon11/01/23 at 0700, pantoprazole 40 mg oral daily was interchanged for omeprazole 20 or 40 mg oral daily Swallow whole. Do NOT crush, chew, or split tablet. 0631 (Given - Provider: Rashida Mckeon R.N.) 0637 (Given - Provider: Ten Gordon Jr., R.N.) 0631 (Given - Provider: Ten Gordon Jr. RHomeroN.) pediatric uikcerrafgzs-iwjo-fcxoo als chewable tablet 1 tablet (FLINTSTONES COMPLETE) 1 tablet, oral, Daily, First dose on Mon11/03/23 at 0900 0916 (Not Given - Provider: Mamie Ambrosio R.N. - Reason: Other - Comment: multi already given this morning) potassium chloride ER tablet 60 mEq (KLORCON/K-TAB) (COMPLETED) 60 mEq, oral, Once, On Mon11/02/23 at 0945, For 1 dose, Swallow whole. Do NOT crush, chew, or split tablet. 1048 (Given - Provider: Jim Redman M.S.Ranjith, R.N.) rivaroxaban tablet 20 mg (XARELTO) 20 mg, oral, Daily with evening meal, First dose (after last modification) on Mon11/02/23 at 1700 1801 (Given - Provider: Jovanni CoronaS.N., R.N.) sodium chloride 0.9 % injection 3 mL 3 mL, intravenous, Every 12 hours scheduled, First dose on Mon10/31/23 at 2100, Peripheral Intravenous Catheter and Rapid Infusion Catheter, when no infusion to maintain patency 0844 (Given - Provider: Vida Corona, R.N.)204 (Given - Provider: Noemy Menendez R.N.) 1049 (Given - Provider: Vida Corona, R.N.)2030 (Given - Provider: Ten Gordon Jr., R.N.) 0838 (Given - Provider: Mamie Ambrosio R.N.) PRN Medication Order 11/01/2023 11/02/2023 11/03/2023 acetaminophen tablet 650 mg (TYLENOL) (CANCELED) 650 mg, oral, Every 4 hours PRN, mild pain or score 1-3 of 10, moderate pain or score 4-6 of 10, Starting on Mon11/01/23 at 0300, Not to exceed 4 grams of acetaminophen in 24 hours all sources 0148 (Given - Provider: Rashida Mckeon, R.N.)0621 (Given - Provider: Rashida Mckeon R.N.)1007 (Canceled Entry - Provider: Vida Corona, R.N. - Comment: Ptn off unit)1155 (Given - Provider: Blanco Corona.Lamin.N., R.N.)1626 (Given - Provider: Kathy ReyNHomero) sodium chloride 0.9 % injection 10 mL 10 mL, intravenous, As needed, line care, Starting on Mon10/31/23 at 1615, Peripheral Intravenous Catheter and Rapid Infusion Catheter, prior to blood sampling, post blood transfusion or post blood sampling sodium chloride 0.9 % injection 3 mL 3 mL, intravenous, As needed, line care, Starting on Mon10/31/23 at 1615, Prior to and following infusion and between multiple consecutive infusions: sodium chloride 0.9 % injection documented in this encounter Additional Health Concerns Assessment Noted Time PHQ-9 Depression Total Score: 2 08/03/19 24 9:15 AM CDT documented as of this encounter Care Teams Rayon Coner Relationship Specialty Start Date End Date Elsewhere, Pcp PCP - General Internal Medicine 05/10/22 documented as of this encounter
--- OUTSIDE RECORDS SUMMARY | 2024-05-21 14:04 | XMS_ITS | Encounter Summary ---
Author Organization [facility] Address [address] [place] [address] Care Team Providers Care Washery Engineer Name Role Phone Elsewhere, Pcp Primary Care Provider Unavailabl e Encounter Details Date Type Department Care Team (Latest Contact Info) Description 10/31/2023 Intake [facility] Social History Tobacco Use Types Packs/Day Years Used Date Smoking Tobacco: Former Cigarettes 0 10/03/1966 - 03/05/1974 Smokeless Tobacco: Never Alcohol Use Standard Drinks/Week Comments Yes 10 (1 standard drink = 0.6 oz pu re alcohol) [facility] Utilities Answer Date Recorded In the past 12 months has [facility] [employer], gas, oil, or water [employer] threatened to shut off services in your [...] How often do you attend chur or congregational services? More than 4 times per year 08/15/2022 Do you belong to any clubs o r organizations such as yazidism groups, unions, fraternal or athletic groups, or [...] Answer Date Recorded PHQ-2 Score 2 01/04/2024 [facility] - Occupational Stress Questionnaire Answer Date [...] your living situation today? I have a [facility] place to live 12/01/2023 Education Answer Date Recorded What is the highest level of school you have completed or the highest degree you have received? Bachelor's degree (e.g., BA, AB, BS) 08/15/2022 Comments No Sex and Gender Information Value Date Recorded Sex Assigned at Female 05/11/2022 7:48 AM FUR CLEANER Legal Sex Female 9:30 PM FUR CLEANER Gender Identity Female 05/11/2022 7:48 AM FUR CLEANER Sexual Orientation Straight 05/11/2022 7: 48 AM FUR CLEANER documented as of this encounter Plan of Treatment Upcoming Encounters Date Type Department Care Team (Latest Contact Info) Description 05/29/2024 12:15 PM FUR CLEANER Clinical Communication Virtual Review in [place], [place] [address] [place] [phone] 05/31/2024 11:00 AM FUR CLEANER Appointment Department of Laboratory Medicine and Pathology, [facility], in [place], [place] [address] [place] [phone] Patricia Parker, JOHNSON, C.N.P., D.N.P. [address] [place] [phone] 05/31/2024 2:00 PM FUR CLEANER Comprehensive Visit Preoperative Evaluation Center in [place], [place] [address] [place] [phone] Arianna Jeffries M.D. [address] [place] [phone] 05/31/2024 2:45 PM FUR CLEANER Comprehensive Visit Preoperative Evaluation Center in [place], [place] [address] [place] [phone] Chris Moreno, PROFESSOR OF ARCHITECTURE, C.N.P., M.S. [address] [place] [phone] 06/03/2024 8:15 AM FUR CLEANER Hospital Encounter Post Anesthesia Care Unit in [place] [id number] [place] [phone] Tahir Moore M.D. [address] [place] [phone] 06/03/2024 8:15 AM FUR CLEANER - 06/03/2024 2:12 PM FUR CLEANER Surgery [facility]ST ROM[facility] MAIN OR [address] [place] [phone] Tahir Moore M.D. [address] [place] [phone] C1-2 fusion 07/02/2024 11:00 AM FUR CLEANER Procedure visit Division of Pain Medicine in [place], [place] [address] [place] [phone] Adam Barlow M.D. [address] [place] [phone] Scheduled Procedures Name Priority Associated Diagnoses Date/Ti me 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 06/03/2024 8:15 AM FUR CLEANER documented as of this encounter Visit Diagnoses Not on filedocumented in this encounter Additional Health Concerns Assessment Noted Time PHQ-9 Depression Total Score: 2 08/03/19 24 9:15 AM CDT documented as of this encounter Care Teams Washery Engineer Relationship Specialty Start Date End Date Elsewhere, Pcp PCP - General Internal Medicine 05/10/22 documented as of this encounter
--- OUTSIDE RECORDS SUMMARY | 2024-05-21 14:04 | XMS_ITS | Encounter Summary ---
Author Organization [facility] Address [address] [place] [phone] Care Team Providers Care Cyberathlete Name Role Phone Elsewhere, Pcp Primary Care Provider Unavailabl e Reason for Visit * Outpatient (Routine) - Closed Specialty Diagnoses / Procedures Referred By Chanel segovia Referred To Contact Cardiovascular Surgery Diagnoses Regurgitation Mitral Cardiac Surgery Status Post Russell Waller P.A.-C., M.S. [address] [place] [phone] Phone: tel: fax: [facility] Referral ID Status Reason Start Date Expiration Date Visits Re quested Visits Authorized [id number] Closed 08/09/2023 02/07/2025 1 1 Encounter Details Date Type Department Care Team (Late st Contact Info) Description 08/15/2023 1:00 PM CDT Virtual Visit Department of Cardiovascular Surgery in [place], [place] [address] [place] [phone] Russell Waller P.A.-C., M.S. [address] [place] [phone] Nba Murray APRN, C.N.P., D.N.P. [address] [place] [phone] Regurgitation Mitral; Cardiac Surgery Status Post Social History Tobacco Use Types Packs/Day Years Used Date Smoking Tobacco: Former Cigarettes 0 10/03/1966 - 03/05/1974 Smokeless Tobacco: Never Alcohol Use Standard Drinks/Week Comments Yes 10 (1 standard drink = 0.6 oz pu re alcohol) [facility] Utilities Answer Date Recorded In the past 12 months has e [employer], oil, or water [employer] threatened to shut off services in your [...] often do you attend chur ch or hoahaoism services? More than 4 times per year [...] 08/03/2023 [facility] - Occupational Stress Questionnaire Answer Date [...] have a [facility] place to live 08/09/2023 Education Answer Date Recorded What is the highest level of school you have completed or the highest degree you have received? Bachelor's degree (e.g., BA, AB, BS) 08/15/2022 Comments No Sex and Gender Information Value Date Recorded Sex Assigned at Female 05/11/2022 7:48 AM JANITOR HEAD Legal Sex Female 9:30 PM JANITOR HEAD Gender Identity Female 05/11/2022 7:48 AM JANITOR HEAD Sexual Orientation Straight 05/11/2022 7: 48 AM JANITOR HEAD documented as of this encounter Progress Notes * Nba Murray APRN, C.N.P., D.N.P. - 08/15/2023 1:00 PM CDT Gladys Zamarripa : 1950 Visit Date: 08/15/23 HZV-ESSA-QT-FACE VISIT Consult conducted via real-time audio/video technology by Jered Murray APRN, C.N.P., D.N.P. 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 Aguayo Surgical Date: 08/07/2023 Discharge Date: 08/11/23 HISTORY OF PRESENT ILLNESS Gladys Zamarripa is a 73 y.o. female who was contacted for a routine postoperative follow-up visit. Per the hospital discharge summary, the postoperative course was as follows: Comorbidities include: Persistent AFib status post 45 cardioversions and 2 transcatheter ablation (2018, 2020), cardiomyopathy with congestive heart failure EF 25% (current EF 61%), mitral valve prolapse with regurgitation, coronary artery disease (lad and RCA) hypertension, hyperlipidemia, anemia,gout, spinal stenosis, vitamin-D deficiency, osteoarthritis, squamous cell carcinoma, alcohol use (10 glasses of wine per week), depression. Hospital Course ICU: Following surgery on 08/06, Gladys Zamarripa returned to the OR for increased bleeding. She required a right VATS, evacuation of retained hemothorax, and control of chest wall bleeding. PCU: patient had post-operative Afib, and was started on amiodarone; to continue for 1 month. Chesttubes removed without concerns. Anticoagulation was initiated with Xarelto. Dismissal studies completed without concerns. Patient was made ready to discharge home on 08/11/23. Ms. Zamarripa reports that the transition to the outpatient setting has gone well. Incisional pain iswell controlled with use of Tylenol. The surgical incision is healing well without concerns for infection. Denies fever, chills, night sweats, dyspnea, productive cough, dizziness, palpitations, constipation, or concern for lower extremity edema. The patient has been active, gradually progressing activity and is using the incentive spirometer. CURRENT MEDICATIONS Current Medications: acetaminophen (TYLENOL) 500 [...] score 4-6 of 10 Indication: Acute Pain. potassium chloride (K-TAB) 20 mEq CR tablet, Take 1 tablet (20 mEq total) by mouth 2 (two) times a day for 7 days, THEN 1 tablet (20 mEq total) daily for 7 days. Do not crush or chew.. rivaroxaban (XARELTO) 20 mg tablet, Take 1 tablet (20 mg total) by mouth daily. Okay to start retaking 1 week after surgery sennosides-docusate sodium (SENOKOT-S) 8.6-50 mg per tablet, Take 2 tablets by mouth at bedtime as needed for constipation. triamcinolone (KENALOG) 0.1 % ointment, Apply 1 Application topically as needed for irritation (bump on the back). OBJECTIVE PHYSICAL EXAMINATION General: Alert and oriented. No acute distress. Incision: Incision approximated, clean, dry, and intact. No erythema or other clinical signs of infection. Chest tube sites healing appropriately without drainage. ASSESSMENT / PLAN #1 Regurgitation Mitral #2 Cardiac Surgery Status Post Overall, Ms. Zamarripa is recovering well following cardiac surgery. Postoperative recovery and expectations were discussed in detail. Incision Care: -I re-emphasized the importance of washing the incision every day in the shower with a mild liquid soap. -Signs of infection and reasons to call were reviewed. Pain Management: I discussed pain management options with the patient including both medication and non-medication approaches. -Wean off narcotics as pain improves, then decrease the use of acetaminophen to as needed only. -Nonpharmacologic options for pain management were discussed including ice, heat, gentle massage, lidocaine patches, products such as Icy Hot or Sumeet-Taveras, and getting enough rest. Diuresis: Lasix 40 mg twice daily for 7 days, FOLLOWED BY Lasix 20 mg twice daily for 7 days was prescribed at dismissal. Potassium 20 mEq twice daily for 7 days, FOLLOWED BY potassium 20 mEq daily for 7 days was also prescribed at dismissal with the diuretic regimen. Day of discharge, patient had 1+ bilateral lower extremity edema, weight was above admission weight, and dismissal chest x-ray showed trace pleural effusions. Patient should continue utilizing incentive spirometer, coughing and deep breathing until chest congestion and shortness of breath has completely resolved. Patient to resume home dose furosemide at 20 mg daily after 14 days of increased diuretic, with PCP to adjust dosing. -Admission weight 60.8 kg. Discharge weight 65.8 kg. -I recommended elevation of the lower extremities, use of compression stockings, and short, frequent walks throughout the day to minimize swelling. -Daily weights were discussed. I encouraged the patient to watch for signs of fluid overload and tosee the local provider for worsening lower extremity edema or increases in weight. Anticoagulation Management: Xarelto 20 mg daily, patient's home medication reinitiated. Discontinuation per home provider. Continue for at minimum 6 weeks for valve repair. Antiplatelet Recommendations: Aspirin 81 mg daily recommended to continue for 6 months post-operatively for valve repair surgery. Activity: -I have encouraged activity and continued use of the incentive spirometer. -Patient advised to continue with sternal precautions as detailed in the discharge instructions. -Patient may begin cardiac rehab as directed by local rehab clinic. Other Medications: -I reviewed medications with Ms. Zamarripa. -Blood pressure was appropriate today, no changes were made to these medications. -Amiodarone taper was initiated for post-operative atrial fibrillation and was prescribed to continue after dismissal. The amiodarone can be discontinued after completion of the taper if no continuedissues with atrial fibrillation or per recommendations by the [employer]. Patient's local tongue and quarter stitcher to resume home propafenone under their discretion after amiodarone is completed in 1 month; consider significant washout period due to drug to drug interaction. -Carvedilol was initiated and titrated up to 12.5 mg twice daily prior to dismissal. Lisinopril wasinitiated and titrated up to 5 mg twice daily prior to dismissal. -Any refills of medications should come from patient's local primary care provider. Cardiac Rehab Cardiac Rehabilitation Referral Reason for Visit: Cardiovascular Health Clinic consultation for referral to cardiac rehabilitation. Liaison met with the patient/family to discuss cardiac rehabilitation referral. Patient/family was provided with progressive verbal and printed home-going exercise guidelines. Patient/family understands and agrees with the exercise guidelines. 1. Participation in a Phase II cardiac rehabilitation program is recommended. Patient was informed about what cardiac rehabilitation has to offer and why it is beneficial. The plan of care for the rehabilitation program consists of risk factor modification, monitored and supervised exercise and assistance in the recovery process with ongoing education and support. Patient is interested in attending a cardiac rehabilitation program. 2. Eligibility: Heart valve surgery 3. Exceptions/exclusions: None. 4. Referral: Patient agreed with referral to a cardiac rehabilitation program. Please see dischargeorder and/or letter for program details. 5. Appropriate referral information will be sent to the receiving cardiac rehabilitation program asapplicable. Patient provided verbal authorization to send relevant materials to the cardiac rehab program. Patient referred to: [facility] [address] [place] [address] Other Recommendations: -The importance of follow-up with a local physician was discussed, as well as cardiology follow-up. Surgical follow up is completed at this [...] care of the patient today. Time includes rot-mvyq-ya-face patient care and review of records. Jered Murray APRN, C.N.P., D.N.P. documented in this encounter Plan of Treatment Upcoming Encounters Date Type Department Care Team (Latest Contact Info) Description 05/29/2024 12:15 PM [facility] Clinical Communication Virtual Review in [place], [place] [address] [place] [phone] 05/31/2024 11:00 AM JANITOR HEAD Appointment Department of Laboratory Medicine and Pathology, [facility], in [place], [place] [address] [place] [phone] Patricia Parker APRN, C.N.P., D.N.P. [address] [place] [phone] 05/31/2024 2:00 PM JANITOR HEAD Comprehensive Visit Preoperative Evaluation Center in [address] [phone] Arianna Jeffries M.D. [address] [place] [phone] 05/31/2024 2:45 PM JANITOR HEAD Comprehensive Visit Preoperative Evaluation Center in [address] [phone] Chris Moreno APRN, C.N.P., M.S. [address] [place] [phone] 06/03/2024 8:15 AM JANITOR HEAD Hospital Encounter Post Anesthesia Care Unit in [address] [phone] Tahir Moore M.D. [address] [place] [phone] 06/03/2024 8:15 AM JANITOR HEAD - 06/03/2024 2:12 PM JANITOR HEAD Surgery RST ROMB MAIN OR [address] [place] [phone] Tahir Moore M.D. [address] [place] [phone] C1-2 fusion 07/02/2024 11:00 AM JANITOR HEAD Procedure visit Division of Pain Medicine in [place], [place] [address] [place] [address] [place] [phone] Adam Barlow M.D. [address] [place] [phone] Scheduled Procedures Name Priority Associated Diagnoses Date/Ti me 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 06/03/2024 8:15 AM JANITOR HEAD documented as of this encounter Visit Diagnoses Diagnosis Regurgitation Mitral Cardiac Surgery Status Post Stenosis Spinal documented in this encounter Additional Health Concerns Assessment Noted Time PHQ-9 Depression Total Score: 2 08/03/19 24 9:15 AM CDT documented as of this encounter Care Teams Cyberathlete Relationship Specialty Start Date End Date Elsewhere, Pcp PCP - General Internal Medicine 05/10/22 documented as of this encounter
--- OUTSIDE RECORDS SUMMARY | 2024-05-21 14:05 | XMS_ITS | Encounter Summary ---
Author Organization [facility] Address [address] [place] [address] Care Team Providers Care Supervisor Diagnostic Name Role Phone Elsewhere, Pcp Primary Care Provider Unavailabl e Reason for Referral * Outpatient (Routine) - Closed Specialty Diagnoses / Procedures Referred By Chanel segovia Referred To Contact Cardiovascular Surgery Diagnoses Regurgitation Mitral Cardiac Surgery Status Post Russell Waller P.A.-C., M.S. [address] [place] [phone] Phone: tel: fax: [facility] Referral ID Status Reason Start Date Expiration Date Visits Re quested Visits Authorized [id number] Closed 08/09/2023 02/07/2025 1 1 Reason for Visit * Reason Onset Date Comments Follow-up 08/09/2023 Encounter Details Date Type Department Care Team (Latest Contact Info) Description 08/09/2023 Clinical Communication Department of Cardiovascular Surgery in [place], [place] [address] [place] [phone] Richard Aguayo M.D. [address] [place] [phone] Follow-up Social History Tobacco Use Types Packs/Day Years Used Date Smoking Tobacco: Former Cigarettes 0 10/03/1966 - 03/05/1974 Smokeless Tobacco: Never Alcohol Use Standard Drinks/Week Comments Yes 10 (1 standard drink = 0.6 oz pu re alcohol) [facility] Utilities Answer Date Recorded In the past 12 months has e [employer], gas, oil, or water company threatened to [...] week 08/15/2022 How often do you attend [facility] or tenriism services? More than 4 times per year [...] PHQ-2 Score 0 08/03/2023 [facility] - Occupational Stress Questionnaire Answer Date Recorded [...] Sex Assigned at Female 05/11/2022 7:48 AM GENERAL ASSISTANT Legal Sex Female 9:30 PM GENERAL ASSISTANT Gender Identity Female 05/11/2022 7:48 AM GENERAL ASSISTANT Sexual Orientation Straight 05/11/2022 7: 48 AM GENERAL ASSISTANT documented as of this encounter Plan of Treatment Upcoming Encounters Date Type Department Care Team (Latest Contact Info) Description 05/29/2024 12:15 PM GENERAL ASSISTANT Clinical Communication Virtual Review in [place], [place] [address] [place] [phone] 05/31/2024 11:00 AM GENERAL ASSISTANT Appointment Department of Laboratory Medicine and Pathology, [facility], in [place], [place] [address] [place] [phone] Patricia Parker APRN, C.N.P., D.N.P. [address] [place] [phone] 05/31/2024 2:00 PM GENERAL ASSISTANT Comprehensive Visit Preoperative Evaluation Center in [place], [place] [address] [place] [phone] Arianna Jeffries M.D. [address] [place] [phone] 05/31/2024 2:45 PM GENERAL ASSISTANT Comprehensive Visit Preoperative Evaluation Center in [place], [place] [address] [place] [phone] Chris Moreno APRN, C.N.P., M.S. [address] [place] [phone] 06/03/2024 8:15 AM GENERAL ASSISTANT Hospital Encounter Post Anesthesia Care Unit in [place], [place] [address] [place] [phone] Tahir Moore M.D. [address] [place] [phone] 06/03/2024 8:15 AM GENERAL ASSISTANT - 06/03/2024 2:12 PM GENERAL ASSISTANT Surgery [facility] OR [address] [place] [phone] Tahir Moore M.D. [address] [place] [phone] C1-2 fusion 07/02/2024 11:00 AM GENERAL ASSISTANT Procedure visit Division of Pain Medicine in [place], [place] [address] [place] [phone] Adam Barlow M.D. [address] [place] [phone] Scheduled Procedures Name Priority Associated Diagnoses Date/Ti me 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 06/03/2024 8:15 AM GENERAL ASSISTANT Scheduled Referrals Name Type Priority Associated Diagnoses Order Schedule Cardiovascular Surgery Post Op (clinic) Outpatient Referral Routine Regurgitation Mitral Cardiac Surgery Status Post Expected: 08/15/2023, Expires: 11/08/2024 documented as of this encounter Visit Diagnoses Diagnosis Regurgitation Mitral- Primary Cardiac Surgery Status Post Stenosis Spinal documented in this encounter Additional Health Concerns Assessment Noted Time PHQ-9 Depression Total Score: 2 08/03/19 24 9:15 AM CDT documented as of this encounter Care Teams Supervisor Diagnostic Relationship Specialty Start Date End Date Elsewhere, Pcp PCP - General Internal Medicine 05/10/22 documented as of this encounter
--- OUTSIDE RECORDS SUMMARY | 2024-05-21 14:05 | XMS_ITS | Encounter Summary ---
Author Organization [facility] Address [address] [place] [address] Care Team Providers Care Hub Cutter Apprentice Name Role Phone Elsewhere, Pcp Primary Care Provider Unavailabl e Encounter Details Date Type Department Care Team (Late st Contact Info) Description 08/07/2023 8:01 PM CDT Anesthesia Event [facility] OR [address] [place] [phone] Nba Ramírez M.D. [address] [place] [phone] Anesthesia Record Procedure Summary Procedure Name Responsible Anesthesiologist Anesthesia Start Time Anesthesia Stop Time THORACOSCOPY - WASHOUT POSSIBLE THORACOTOMY, CONTROL OF BLEEDING (Right) Nba Ramírez M.D. 08/07/23200008/07/23 2228 Events Date Time Event Comment 08/07/2023 1930 2000 An Start Machine/Equipme nt Checked Infection Precautions Followed Procedure/Site Verified NPO Status Verified Supine Standard ASA Monitors Applied 2009 An Induction 2013 An Intubation 2023 Turnover to Proceduralist 2028 Bronchoscopy 2029 Single Lung Ventilation 2035 Proc Start 2108 Anes CS Handoff I, Armani conklin, SYNTHETIC RESIN OPERATOR, ROLLER COASTER ENGINEER, DNAP, attest that I have reconciled the controlled substances and that I have reviewed all the significant information with the next anesthesia provider assuming care of this patient. 2135 Double Lung Ventilation Resu med 2156 Proc Fin 2203 Turnover to ANE Staff 2206 Airway Removal Criteria Met 2207 Extubation/Airway Removed 2211 an stop data 2227 An End I completed my handoff to the receiving staff during which we 1. Identified the patient 2. Identified the responsible provider 3. Reviewed the pertinent medical history 4. Discussed the surgical course 5. Reviewed intra-op anesthesia management and issues during anesthesia 6. Set expectations for post-procedure period 7. Allowed opportunity for questions and acknowledgement of understanding. Meds Name Total fentaNYL 50 mcg/mL IV injection 125 mcg lidocaine 2% (mg) injection 60 mg phenylephrine 100 mcg/mL injection 250 m cg ondansetron 4 mg/2 mL injection 4 mg propofol 10 mg/mL injection 120 mg cisatracurium 2 mg/mL injection 16 mg norepinephrine 4 mg/250 mL infusion 0.1 mg ceFAZolin 2 g plasmalyte-A free drip 600 mL * Agents No agents on file. * Blood No blood administrations on file. Lines, Drains, and Airways Type Details Placement Removal Wound 08/31/22; 1429; N; Incision; Spine; Lower, Medial 08/31/22 1429 by Nisreen Mays R.N., C.W.O.C.N. Wound 08/07/23; N; Incisio n; Neck; Right, Anterior 08/07/23 0000 by Ana Espana R.N. Wound 08/07/23; N; Punctur e; Groin; Right 08/07/23 0000 by Ana Espana RHomeroN. Scope Sites 08/07/23; Chest; 1 (NEEDLETACK SITE); Anterior, Medial, Mid; 2 (ROBOTIC UPPER ARM SITE); Anterior, Medial, Upper, Right; 3 (CAMERA SITE); Anterior, Mid, Right; 4 (CROSS CLAMP SITE); Upper, Other (Comment), Lateral, Right (AXILLARY); 5 (PERICARDIAL STITCH SITE); Other (Comment), Lateral, Lower, Right (AXILLARY) 08/07/23 0000 by Ana Espana R.NHomero Indwelling Urinary Catheter Placement Date: 08/07/23; Inserted by: Carmen ESPANA RN; Type: Non-latex, Temperature probe; Size: 16 Fr.; Balloon Size: 10 mL; Urine Returned: Yes; Removal Date: 08/08/23; Removal Time: 1300; Removal Reason: Criteria for drain removal met 08/07/23 0000 by Ana Espana RJose 08/08/23 1300 by Armani Roman R.N. Y Chest Tube 1 and 2 08/07/23; 1; Right; Pericardial; 2; Right; Mediastinal; 18 Fr; Other (Comment) (configuration changed in OR so completed and new LDA formed) 08/07/23 0000 by Ana Espana RJose 08/07/23 2100 by Martine Nieto R.N. Peripheral IV Placement Date: 08/07/23; Placement Time: 0644; Catheter Size: 20 G; Orientation: Left, Lower, Posterior; Location: Forearm; Site Prep: Chlorhexidine (Preferred); Technique: Anatomical landmarks; Inserted by: yolanda; Insertion Attempts: 1; Removal Date: 08/10/23; Removal Time: 1004; Removal Reason: Other (Comment) (painful) 08/07/23 0644 by Em Persaud 08/10/23 1004 by Blessing Bhagat RJose ETT Placement Date: 08/07/23; Placement Time: 0830 (created via procedure documentation); Mask Ventilation: Easy mask; Technique: Direct laryngoscopy, intubation; Type: Double lumen left; Single Lumen Tube Size: 35 Fr; Cuffed: Yes; Blade Size: Espana 2; Location: Oral; Grade View: Grade 1; Insertion Attempts: 1; Placement Verification: Bilateral breath sounds, Fiberoptic visualization, Positive ETCO2, Symmetrical chest wall movement; Removal Date: 08/07/23; Removal Time: 222608/07/23 0830 by Eugenie Munoz APRN, ROBERTO, DNAP 08/07/23 2227 by Vanesa Valentin APRN, ROBERTO, D.N.P. Peripheral IV Placement Date: 08/07/23; Placement Time: 08; Catheter Size: 16 G; Orientation: Right; Location: Hand; Removal Date: 08/08/23; Removal Time: 0653; Removal Reason: Leaking 08/07/23 0835 by Eugenie Munoz APRN, ROLLER COASTER ENGINEER, DNAP 08/08/23 0653 by Caren Ambrosio R.N., CCRN Arterial Line Placement Date: 08/07/23; Placemnt Time: 08 (created via procedure documentation); Size: 20 G; Orientation: Left; Location: Radial; Site Prep: Chlorhexidine (Preferred); Technique: Anatomical landmarks; Insertion Attempts: 1; Securement: Securement dressing, Securement device; Removal Date: 08/08/23; Removal Time: 1054; Removal Reason: Per order 08/07/23 0840 by Eugenie Munoz APRN, ROLLER COASTER ENGINEER, DNAP 08/08/23 1054 by Antolin Sepulveda RJose CVC Quadruple Lumen Placement Date: 08/07/23; Placement Time: 0850; Size: 8.5 Fr; Type: Temporary (non-tunneled, non-implanted); Line Length(cm): 16; Orientation: Right; Location: Internal jugular; Inserted by: Dr Culver; Removal Date: 08/09/23; Removal Time: 164708/07/23 0850 by Patricia Conroy 08/09/231647 by Lakesha Vance RJose ETT Placement Date: 08/07/23; Placement Time: 2013 (created via procedure documentation); Mask Ventilation: Easy mask; Technique: Video laryngoscopy; Type: Double lumen left; Single Lumen Tube Size: 35 Fr; Cuffed: Yes; Location: Oral; Grade View: Grade 1; Insertion Attempts: 1; Placement Verification: Bilateral breath sounds, Positive ETCO2, Symmetrical chest wall movement; Removal Date: 08/07/23; Removal Time: 222608/07/232013 by Armani Quispe, JOHNSON, ROLLER COASTER ENGINEER, DNAP 08/07/232226 by Vanesa Valentin, JOHNSON, ROLLER COASTER ENGINEER, D.N.P. Chest Tube Placement Date: 08/07/23; Placement Time: 2141; Inserted by: Olivier Hsieh; Tube Number: 3; Location: Mediastinal; Size: 18 Fr; Drainage System: [place]/nonsuction water seal drainage (B.Arin); Removal Date: 08/09/23; Removal Time: 164508/07/232141 by Ursula Alexis, R.N. 08/09/231645 by Lakesha Vance R.N. documented in this encounter Social History Tobacco Use Types Packs/Day Years Used Date Smoking Tobacco: Former Cigarettes 0 10/03/1966 - 03/05/1974 Smokeless Tobacco: Never Alcohol Use Standard Drinks/Week Comments Yes 10 (1 standard drink = 0.6 oz pu re alcohol) [facility] Utilities Answer Date Recorded In the past 12 months has e [employer], gas, oil, or water [employer] threatened to shut off services in your [...] week 08/15/2022 How often do you attend [facility] or yarsani services? More than 4 times per year [...] Answer Date Recorded PHQ-2 Score 0 08/03/2023 [facility] - Occupational Stress Questionnaire Answer Date [...] have a [facility] to live 08/09/2023 Education Answer Date Recorded What is the highest level of school you have completed or the highest degree you have received? Bachelor's degree (e.g., BA, AB, BS) 08/15/2022 Comments No Sex and Gender Information Value Date Recorded Sex Assigned at Female 05/11/2022 7:48 AM INVESTMENT BANKING MANAGER Legal Sex Female 9:30 PM INVESTMENT BANKING MANAGER Gender Identity Female 05/11/2022 7:48 AM INVESTMENT BANKING MANAGER Sexual Orientation Straight 05/11/2022 7: 48 AM INVESTMENT BANKING MANAGER documented as of this encounter OR Notes * Anesthesia Postprocedure Evaluation - Vanesa Valentin APRN, CRNA, D.N.P. - 08/07/2023 10:28PM CDT Patient: Gladys Zamarripa Procedure Summary Date: 08/07/23 Room / Location: [place] [address] / [facility] in [place], [place] Anesthesia Start: 2000 Anesthesia Stop: 2227 Procedure: THORACOSCOPY - WASHOUT POSSIBLE THORACOTOMY, CONTROL OF BLEEDING (Right) Diagnosis: Anemia Posthemorrhagic Acute (Blood Loss Anemia) (Anemia Posthemorrhagic Acute (Blood Loss Anemia) [D62]) Providers: Richard Aguayo M.D. Responsible Provider: Nba Ramírez M.D. Anesthesia Type: general ASA Status: 3 - Emergent Anesthesia Type: general Last vitals Vitals Value Taken Time BP Temp Pulse Resp SpO2 Please reference Vitals flowsheet for most recent vital signs. Anesthesia Post Evaluation Patient Disposition: monitored unit, expectation for recovery time deferred to receiving unit Cardiovascular status: hemodynamics (HR & BP) acceptable Respiratory status: patent airway with spontaneous effort Temperature: normothermic Oxygen requirements: closed face mask Level of consciousness: awake Pain score: pain adequately controlled and/or at baseline Post Op nausea/vomiting: none Hydration status: euvolemic * Anesthesia Procedure Notes - Armani Quispe APRN, CRNA, DNAP - 08/07/2023 8:25 PM CDTAssociated Order(s): Airway Airway Date/Time: 08/07/2023 8:14 PM Performed by: Armani Quispe APRN, CRNA, DNAP Authorized by: Nba Ramírez M.D. Patient location during procedure: OR / Procedure Area PROCEDURE DETAILS: Mask difficulty assessment: easy mask Final airway type: video laryngoscope Laryngeal Manipulation: no Final best view of glottic structures - Cormack/Lehane Score: grade 1 ETT location: oral VL device: glide scope Upland scope blade size: 3 Tube size: 35 ETT distance at teeth/gum: 26 Oral tube type: double lumen left Cuffed: yes Number of attempt to successful placement: 1 Airway confirmation: bilateral breath sounds, positive ETCO2 and bilateral chest rise Other previous techniques attempted: none PRE PROCEDURE DETAILS: Pre evaluation for airway management: procedure Urgency: elective Preoxygenation: bag valve mask SEDATION / ANESTHESIA Anesthesia method: anesthesia POST PROCEDURE DETAILS: Procedure outcome: successful * Anesthesia Preprocedure Evaluation - Nba Ramírez M.D. - 08/07/2023 7:28 PM CDT Preprocedure Anesthesia & H&P Assessment Procedure Summary Date/Time: 08/07/231919 Procedure: THORACOSCOPY - WASHOUT POSSIBLE THORACOTOMY, CONTROL OF BLEEDING (Right) Diagnosis: Anemia Posthemorrhagic Acute (Blood Loss Anemia) [D62] Pre-op diagnosis: Anemia Posthemorrhagic Acute (Blood Loss Anemia) [D62] Location: [place] [address] / [facility] in [place], [place] Providers: Richard Aguayo M.D. Pertinent components of the patient's history including current problem list, medical history, surgical history, family history, social history, medications and allergies were reviewed. Present illness and pre-op diagnosis were confirmed. The planned surgery / procedure was verified with the patient / legal guardian. The patient's general health condition remains unchanged (See Linked H&P) RELEVANT COMORBID CONDITIONS CV (+) Atrial Fibrillation Longstanding Persistent (HCC) (+) Chronic Systolic (Congestive) Heart Failure (HCC) (+) Hypertension Essential Primary PSYCH (+) Depression Major Recurrent (HCC) HEME (+) Anemia (+) Anemia Of Chronic Disease Other (+) Alcohol Mild Use Disorder (Abuse) Uncomplicated OBJECTIVE PHYSICAL EXAMINATION Airway (HEENT) Mallampati: II TM Distance: >3 FB Neck ROM: Limited Mouth Opening: >3 cm Cardiovascular Rhythm: Regular Pulmonary Pulmonary Assessment: Clear General / Constitutional Constitutional Assessment: Normal Neurological Neurologic Assessment: alert and alert and oriented x 3 Dental Dental Assessment: dentition intact ASSESSMENT / PLAN ANESTHESIA PLAN ASA: 3 - Emergent Anesthesia Plan: general Patient seen and allergies reviewed, anesthesia plan and risks discussed directly with patient /legal guardian or through an adobe cq developer. Risks/Benefits/Alternatives of Blood transfusion discussed with patient / legal guardian, includingan opportunity to ask questions and/or decline some or all transfusion therapies. The patient / legal guardian consented to the use of all blood products, as deemed medically necessary Approval to Proceed: approved for anesthesia documented in this encounter Plan of Treatment Upcoming Encounters Date Type Department Care Team (Latest Contact Info) Description 05/29/2024 12:15 PM INVESTMENT BANKING MANAGER Clinical Communication Virtual Review in [address] [phone] 05/31/2024 11:00 AM INVESTMENT BANKING MANAGER Appointment Department of Laboratory Medicine and Pathology, [facility], in [address] [phone] Patricia Parker APRN, C.N.P., D.N.P. [address] [place] [phone] 05/31/2024 2:00 PM INVESTMENT BANKING MANAGER Comprehensive Visit Preoperative Evaluation Center in [address] [phone] Arianna Jeffries M.D. [address] [place] [phone] 05/31/2024 2:45 PM INVESTMENT BANKING MANAGER Comprehensive Visit Preoperative Evaluation Center in [address] [phone] Chris Moreno APRN, C.N.P., M.S. [address] [place] [phone] 06/03/2024 8:15 AM INVESTMENT BANKING MANAGER Hospital Encounter Post Anesthesia Care Unit in [place], [place] [address] [place] [phone] Tahir Moore M.D. [address] [place] [phone] 06/03/2024 8:15 AM INVESTMENT BANKING MANAGER - 06/03/2024 2:12 PM INVESTMENT BANKING MANAGER Surgery [facility] OR [address] [place] [phone] Tahir Moore M.D. [address] [place] [phone] C1-2 fusion 07/02/2024 11:00 AM INVESTMENT BANKING MANAGER Procedure visit Division of Pain Medicine in [place], [place] [address] [place] [phone] Adam Barlow M.D. 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 Patient location during procedure: OR / Procedure Area PROCEDURE DETAILS: Mask difficulty assessment: easy mask Final airway type: video laryngoscope Laryngeal Manipulation: no Final best view of glottic structures - Cormack/Lehane Score: grade 1 ETT location: oral VL device: glide scope Upland scope blade size: 3 Tube size: 35 ETT distance at teeth/gum: 26 Oral tube type: double lumen left Cuffed: yes Number of attempt to successful placement: 1 Airway confirmation: bilateral breath sounds, positive ETCO2 and bilateral chest rise Other previous techniques attempted: none PRE PROCEDURE DETAILS: Pre evaluation for airway management: procedure Urgency: elective Preoxygenation: bag valve mask SEDATION / ANESTHESIA Anesthesia method: anesthesia POST PROCEDURE DETAILS: Procedure outcome: successful Nba Ramírez M.D. ANESTHESIA ORDERABLES Fi nal Result documented in this encounter Visit Diagnoses Not on filedocumented in this encounter Administered Medications Inactive Administered Medications - up to 3 most recent administrations Medication Order MAR Action Action Date Dose Rate Site ceFAZolin injection (ANCEF) intravenous, As needed, Starting on Mon08/07/23 at 2031, Anesthesia Intra-op Given 08/07/2023 8:32 PM CDT 2 g CISatracurium injection (NIMBEX) intravenous, As needed, Starting on Mon08/07/23 at 2011, Anesthesia Intra-op Given 08/07/2023 9:14 PM CDT 2 mg Given 08/07/2023 8:58 PM CDT 2 mg Given 08/07/2023 8:39 PM CDT 2 mg electrolyte-A solution (PLASMA-LYTE A) intravenous, Continuous Infusion: Per Instructions PRN, Starting on Mon08/07/23 at 1956, Anesthesia Intra-op New Bag 08/07/2023 7:57 PM CDT fentaNYL injection (SUBLIMAZE) intravenous, As needed, Starting on Mon08/07/23 at 2007, Anesthesia Intra-op Given 08/07/2023 10:25 PM CDT 25 mcg Given 08/07/2023 8:08 PM CDT 100 mcg lidocaine (PF) (cardiac) injection intravenous, As needed, Starting on Mon08/07/23 at 2007, Anesthesia Intra-op Given 08/07/2023 8:08 PM CDT 60 mg norepinephrine 16 mcg/mL in D5W 250 mL infusion intravenous, Continuous Infusion: Per Instructions PRN, Starting on Mon08/07/23 at 2018, Anesthesia Intra-op Rate/Dose Change 08/07/2023 9:03 PM CDT 0.01 mcg/kg/min 2.28 mL/hr Restarted 08/07/2023 9:02 PM CDT 0.005 mcg/kg/min 1.14 mL /hr Restarted 08/07/2023 8:52 PM CDT 0.01 mcg/kg/min 2.28 mL/ hr ondansetron (PF) injection (ZOFRAN) intravenous, As needed, Starting on Mon08/07/23 at 2143, Anesthesia Intra-op Given 08/07/2023 9:43 PM CDT 4 mg phenylephrine injection intravenous, As needed, Starting on Mon08/07/23 at 2016, Anesthesia Intra-op Given 08/07/2023 8:44 PM CDT 50 mcg Given 08/07/2023 8:28 PM CDT 100 mcg Given 08/07/2023 8:16 PM CDT 100 mcg propofoL injection (DIPRIVAN) intravenous, As needed, Starting on Mon08/07/23 at 2008, Anesthesia Intra-op Given 08/07/2023 8:08 PM CDT 120 mg documented in this encounter Additional Health Concerns Assessment Noted Time PHQ-9 Depression Total Score: 2 08/03/19 9:15 AM CDT documented as of this encounter Care Teams Hub Cutter Apprentice Relationship Specialty Start Date End Date Elsewhere, Pcp PCP - General Internal Medicine 05/10/22 documented as of this encounter
--- OUTSIDE RECORDS SUMMARY | 2024-05-21 14:05 | XMS_ITS | Encounter Summary ---
Author Organization [facility] Address [address] [place] [address] Care Team Providers Care Patient Observation Assistant Name Role Phone Elsewhere, Pcp Primary Care Provider Unavailabl e Reason for Referral * Outpatient (Routine) - Authorized Specialty Diagnoses / Procedures Referred By Chanel t Referred To Contact Diagnoses Repair Mitral Valve Status Post Richard Aguayo M.D. [address] [place] [address] Phone: tel: fax: Referral ID Status Reason Start Date Expiration Date Visits Requested Visits Authorized [id number] Authorized Continuity of Care 08/09/2023 02/07/2025 1 1 Encounter Details Date Type Department Care Team (Latest Contact Info) Description 08/07/2023 6:02 AM CDT - 08/11/2023 3:36 PM CDT Hospital Encounter [facility], Fifth Floor [address] [place] [phone] Richard Aguayo M.D. [address] [place] [phone] Anemia Posthemorrhagic Acute (Blood Loss Anemia) (Primary Dx); Repair Mitral Valve Status Post; Decline Functional Status [R53.81] Discharge Disposition: Home or Self Care Social History Tobacco Use Types Packs/Day Years Used Date Smoking Tobacco: Former Cigarettes 0 10/03/1966 - 03/05/1974 Smokeless Tobacco: Never Alcohol Use Standard Drinks/Week Comments Yes 10 (1 standard drink = 0.6 oz pu re alcohol) [facility] Utilities Answer Date Recorded In the past 12 months has [facility] [employer], [employer], or water [employer] threatened to shut off services in your [...] often do you attend chur ch or restorationism services? 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 Legal Sex Female 9:30 PM FINE GRADE OPERATOR Gender Identity Female 05/11/2022 7:48 AM FINE GRADE OPERATOR Sexual Orientation Straight 05/11/2022 7: 48 AM FINE GRADE OPERATOR documented as of this encounter Last Filed Vital Signs Vital Sign Reading Time Taken Comments Blood Pressure 161/110 08/11/2023 3:08 PM CDT Pulse 90 08/11/2023 3:08 PM CDT Temperature 36.4 C (97.5 F) 08/11/2023 3:08 PM CDT Respiratory Rate 15 08/11/2023 3:08 PM CDT Oxygen Saturation 96% 08/11/2023 12:40 PM CDT Inhaled Oxygen Concentration - - Weight 65.8 kg (145 lb 1 oz) 08/11/2023 2:20 AM CDT Height 159.4 cm (5' 2.76) 08/07/2023 6:53 AM CD T Body Mass Index 25.9 08/07/2023 6:53 AM CDT documented in this encounter Discharge Summaries * Alvaro Persaud P.A.Susana. - 08/11/2023 2:01 PM CDT DISCHARGE SUMMARY BRIEF OVERVIEW Discharge Provider: Richard Aguayo M.D. Primary Care Providers: Elsewhere, Pcp (General) No address on file Patient Care Team: Christine Rodriguez M.D. as External Primary Care Physician (Family Medicine) Johanna De Santiago P.A.-C. as External Primary Care Physician (Family Medicine) Admission Date: 08/07/2023 Discharge Date PRINCIPAL DIAGNOSIS Repair Mitral Valve Status Post SECONDARY DISCHARGE DIAGNOSES Principal Problem: Repair Mitral Valve Status Post Active Problems: Regurgitation Mitral Atrial Fibrillation Longstanding Persistent (HCC) Cardiomegaly Depression Major Recurrent (HCC) Hyperlipidemia Hypertension Essential Primary Anemia Of Chronic Disease Alcohol Mild Use Disorder (Abuse) Uncomplicated Chronic Systolic (Congestive) Heart Failure (HCC) Anemia Posthemorrhagic Acute (Blood Loss Anemia) Leukocytosis Hyponatremia Resolved Problems: Hypokalemia Bleed Postoperative Initial Pain Postoperative Acidosis Lactic Surgery Information This Encounter Past Procedures (08/11/2022 to Today) Date Procedures Providers Loc / Dept 08/07/2023 THORACOSCOPY - WASHOUT POSSIBLE THORACOTOMY, CONTROL OF BLEEDING Richard Aguayo M.D.Alwatari, Yahya A, M.B., B.Ch., B.A.O. 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 RST ROMB OR DISCHARGE DISPOSITION Home or Self Care [1] ACTIVE ISSUES REQUIRING FOLLOW UP Your primary care provider is your long-term healthcare provider. Please follow-up with them for any medication refills, home care assistance, or an ongoing chronic medical conditions as needed Follow-up recommendations post Cardiac Surgery Follow-up Visit: [facility] via a phone visit on 08/14, Primary Care Provider appointment on 08/20, and Primary Paid Search Specialist appointment on 01/11. Follow-up Testing: Post-operative testing per the discretion of the PCP or Paid Search Specialist. Monitor electrolytes with BMP while on increased diuretic. Blood Pressure: Carvedilol was initiated and titrated up to 12.5 mg twice daily prior to dismissal.Lisinopril was initiated and titrated up to 5 mg twice daily prior to dismissal. Arrhythmia: An oral amiodarone taper was initiated for post-operative atrial fibrillation and was prescribed to continue after dismissal. The amiodarone can be discontinued after completion of the taper if no continued issues with atrial fibrillation or per recommendations by the Paid Search Specialist. Patient's local tea room manager to resume home propafenone under their discretion after amiodarone is completed in 1 month; consider significant washout period due to drug to drug interaction. Antiplatelet Therapy: Aspirin 81 mg daily recommended to continue for 6 months post-operatively forvalve repair surgery. Diuretics: Lasix 40 mg twice daily for 7 days, FOLLOWED BY Lasix 20 mg twice daily for 7 days was prescribed at dismissal. Potassium 20 mEq twice daily for 7 days, FOLLOWED BY potassium 20 mEq daily for 7 days was also prescribed at dismissal with the diuretic regimen. Day of discharge, patient had1+ bilateral lower extremity edema, weight was above admission weight, and dismissal chest x- ray showed trace pleural effusions. Patient should continue utilizing incentive spirometer, coughing and deep breathing until chest congestion and shortness of breath has completely resolved. Patient to resume home dose furosemide at 20 mg daily after 14 days of increased diuretic, with PCP to adjust dosing. Other Medications: No other medication recommendations. Antibiotics: Post-operative antibiotic regimen completed, no further antibiotic regimen required. Home Medications: Please see the medication list for continued and discontinued home medications. Consulting Service Recommendations: N/A Home Healthcare Services: No home health services required. Wound Care: Please remove the chest tube sutures at the post-operative follow-up visit. Anticoagulation: Xarelto 20 mg daily, patient's home medication reinitiated. Discontinuation per home provider. Continue for at minimum 6 weeks for valve repair. Cardiac Rehab Cardiac Rehabilitation Referral Reason for [...] the cardiac rehab program. Patient referred to: [facility] [address] [place] [phone] Recommend that the patient check with insurance company to verify coverage of the cost of cardiac rehabilitation program visits. OUTPATIENT FOLLOWUP [facility] Appointments: Scheduled Appointments 08/15/2023 1:00 PM RM 01 ROAL [facility]; [facility] T1-03 [facility] Cardiovascular Surgery 10/13/2023 3:00 PM RST INTAKE VISIT POD H 08 Admitting/Central Scheduling 10/17/2023 7:30 AM DX ROCH [address] Radiology 10/17/2023 7:45 AM DX ROCH [address] Radiology 10/17/2023 9:00 AM MR BALJIT LO MR 28 1.5T Radiology 10/17/2023 10:[address] ROCH NEUR LOS 217 Radiology 10/17/2023 3:30 PM Nelson Esqueda M.D. Neurological Surgery For appointment details refer to your Patient Appointment Guide. Outside [facility] Appointments: Consults and Follow-ups to Schedule Take a copy of this after visit summary to your appointment(s). [place], [place] August 21, 2023 - Monday --12:45 PM - Hospital Follow-Up with KYLE Patricio a colleague of Dr. Christine Rodriguez MD, primary care provider, at [place] [address] [address], [facility] Ramos Reynoso, [place], [place] [id number] [place], [place] January 12, 2024 - Monday --10:00 AM - Hospital Follow-Up with Dr. Quan Lopez MD, Paid Search Specialist, at [facility] [address] [place] [address] Fax: [facility] You may have outpatient appointments at [facility] that changed during your hospitalization. Referto your [facility] Patient Visit Guide (PVG) for the most current schedule of appointments and detailed instructions of tests/procedures. Call [phone], if you did not receive an PVG or need to CANCEL any [facility] appointment(s). DISCHARGE MEDICATIONS: At the time of dismissal, pain medications (examples include oxycodone, Dilaudid, Tramadol, etc.)will be prescribed to you if needed. Duration will be determined on a [id number] basis and will not exceed 2 weeks. Thereafter, you will need to be evaluated by your primary care provider or your surgical team (in person) if operative pain persists Refill of all medications need to be obtained from your primary care provider START taking these medications Details aspirin 81 mg chewable tablet Chew 1 tablet (81 mg total) daily. oxyCODONE (ROXICODONE) 5 mg immediate release tablet Take 1 tablet (5 mg total) by mouth every 4 (four) hours as needed for moderate pain or score 4-6 of 10 Indication: Acute Pain. Qty: 5 tablet, Refills: 0 potassium chloride (K-TAB) 20 mEq CR tablet Take 1 tablet (20 mEq total) by mouth 2 (two) times a day for 7 days, THEN 1 tablet (20 mEq total) daily for 7 days. Do not crush or chew.. Qty: 21 tablet, Refills: 0 sennosides-docusate sodium (SENOKOT-S) 8.6-50 mg per tablet Take 2 tablets by mouth at bedtime as needed for constipation. amiodarone (PACERONE) 200 mg tablet Take 1 tablet (200 mg total) by mouth 2 (two) times a day for 7days, THEN 1 tablet (200 mg total) daily for 28 days. Qty: 42 tablet, Refills: 0 CONTINUE these medications which have CHANGED Details furosemide (LASIX) 20 mg tablet Take 2 tablets (40 mg total) by mouth 2 (two) times a day for 7 days, THEN 1 tablet (20 mg total) 2 (two) times a day for 7 days, THEN 1 tablet (20 mg total) daily for14 days. Continuation per discretion of PCP.. Qty: 56 tablet, Refills: 0 lisinopriL (PRINIVIL,ZESTRIL) 5 mg tablet Take 1 tablet (5 mg total) by mouth 2 (two) times a day. Qty: 60 tablet, Refills: 0 CONTINUE these medications which have NOT CHANGED Details acetaminophen (TYLENOL) 500 mg tablet Take 1,000 mg by mouth daily as needed for pain, mild pain orscore 1-3 of 10 or fever. OTC allopurinoL (ZYLOPRIM) 300 mg tablet Take 150 mg by mouth daily. atorvastatin (LIPITOR) 20 mg tablet Take 20 mg by mouth daily. buPROPion XL (WELLBUTRIN XL) 150 mg 24 hr tablet Take 150 mg by mouth daily. calcium carbonate 1,500 mg (600 mg calcium) tablet Take 1 tablet by mouth daily. cyanocobalamin (VITAMIN B12) 1,000 mcg/mL injection Inject 1,000 mcg intramuscularly every 30 (thirty) days. ferrous sulfate 325 mg (65 mg iron) tablet Take 325 mg by mouth every other day. gabapentin (NEURONTIN) 300 mg capsule Take 300 mg by mouth 3 (three) times a day. magnesium oxide (MAG-OX) 400 mg (241.3 mg magnesium) tablet Take 1 tablet by mouth daily. omega-3 fatty acids-fish oil 300-1,000 mg per capsule Take 2 g by mouth daily. omeprazole (PriLOSEC) [address] capsule Take 20 mg by mouth every morning before breakfast. rivaroxaban (XARELTO) 20 mg tablet Take 1 tablet (20 mg total) by mouth daily. Okay to start retaking 1 week after surgery Qty: 60 tablet, Refills: 1 triamcinolone (KENALOG) 0.1 % ointment Apply 1 Application topically as needed for irritation (bumpon the back). carvediloL (COREG) 25 mg tablet Take 12.5 mg by mouth 2 (two) times a day with meals. STOP taking these medications propafenone (RYTHMOL) 150 mg tablet Comments: Reason for Stopping: DO NOT TAKE UNTIL DISCUSSION WITH OPERATING MANAGER mupirocin (BACTROBAN) 2 % ointment Comments: Reason for Stopping: pre-op med. DETAILS OF HOSPITAL STAY REASON FOR ADMISSION Regurgitation Mitral HOSPITAL COURSE Gladys Zamarripa is a 73 y.o. female admitted on 08/07/2023 for robotic mitral valve repair, cleft closure and valvuloplasty with Dr. Aguayo. Comorbidities include: Persistent AFib status post 45 [...] made ready to discharge home on 08/11/23. SURGICAL PROCEDURE(S) Dismissal Vitals: Admission Weight: 60.8 kg Blood pressure (!) 156/103, pulse 88, temperature 36.8 ??C, temperature source Oral, resp. rate 19, height 159.4 cm, weight 65.8 kg, SpO2 96%. PHYSICAL EXAMINATION: General: Alert and oriented. No apparent distress. Heart: Regular rate and rhythm, no murmurs or rubs noted. Lungs: Clear to auscultation bilaterally. Abdomen: Soft, nontender. Extremities: Distal pulses intact. 1+ edema noted bilaterally. Incision: Wound approximated, clean, dry, and intact. No erythema or other clinical signs of infection. Sternum stable Echocardiogram 08/11/23 Hemodynamics Heart Rate: 81 BPM Blood Pressure: 152 / 99 mmHg ECG: Sinus rhythm, 1st degree A-V block Final Impressions 1. Status post mitral valve repair. Robotically assisted mitral valve annuloplasty and mitral valvuloplasty (suture closure of posterior leaflet cleft) 07-AUG-2023. 2. Mitral valve diastolic mean Doppler gradient 3 mmHg (heart rate 82 BPM). Mild residual mitral valve regurgitation. 3. Normal left ventricular chamber size. Calculated ejection fraction 62%. 4. Abnormal ventricular septal motion - post-operative without other regional wall motion abnormalities. 5. Mild-moderately enlarged right ventricular chamber size with mildly reduced systolic function. 6. Estimated right ventricular systolic pressure 46 mmHg (right atrial pressure of 5 mmHg). 7. Tricuspid annulus dilatation with moderate tricuspid valve regurgitation. 8. Normal inferior vena cava size with normal inspiratory collapse (>50%). 9. No pericardial effusion. Comments Right ventricle is enlarged compared to preoperative imaging. The annulus is dilated, IVC is dilated and relatively non collapsing suggesting that the increase in tricuspid regurgitation is likely functional. IMAGING DX Chest AP or PA and Lateral 2 Views Result Date: 08/11/2023 Impression: Since 08/10/2023, the right chest tubes have been removed. No definite residual right-sided pneumothorax; however, evaluation is limited secondary to overlying subcutaneous emphysema. Improving bibasilar airspace opacities with resolution of previously noted trace effusions. Stable persistent patchy airspace opacities in the mid to lower right lung and along the right heart border. Similar subcutaneous emphysema along the right chest wall. Aortic calcification. MVR. Degenerative changes of the spine. ECG ECG 12 Lead Result Date: 08/11/2023 Normal sinus rhythm with 1st degree A-V block Nonspecific T wave abnormality Prolonged QT When compared with ECG of 09-AUG-2023 10:29, QT has lengthened ME interval has increased Reviewed by KEVIN Cheng ECG 12 Lead Result Date: 08/09/2023 Sinus rhythm Nonspecific T wave abnormality When compared with ECG of 07-AUG-2023 14:16, ME interval has decreased QT has shortened Reviewed by KEVIN Pittman ECG 12 Lead Result Date: 08/07/2023 Sinus rhythm with 1st degree A-V block ST and T wave abnormality, consider anterolateral ischemia Prolonged QT When compared with ECG of 03-AUG-2023 09:43, Minimal criteria for Anterior infarct are no longer present T wave inversion no longer evident in Inferior leads T wave inversion now evident in Lateral leads QT has lengthened Reviewed by KEVIN Irizarry LABS Recent Results (from the past 24 hour(s)) Basic Metabolic Panel Collection Time: 08/11/23 10:04 AM Result Value Potassium, S 4.3 Sodium, S 132 (L) Chloride, S 93 (L) Bicarbonate, S 28 Anion Gap 11 BUN (Blood Urea Nitrogen), S 8 Creatinine 0.58 (L) Estimated GFR (eGFR) >90 Calcium, Total, S 9.0 Glucose, S 118 CBC without Differential Collection Time: 08/11/23 10:04 AM Result Value Hemoglobin 10.1 (L) Hematocrit 30.5 (L) Erythrocytes 3.24 (L) MCV 94.1 RBC Distrib Width 14.7 Platelet Count 237 Leukocytes 9.9 (H) PATHOLOGY No results found for this or any previous visit (from the past 720 hour(s)). CONDITION AT DISCHARGE stable Time spent on coordinating discharge was greater than 30 minutes. Discharge instructions were provided to the patient and caregiver(s). documented in this encounter Discharge Instructions * Discharge Instructions* Fariha Dias - 08/07/2023 7:34 AM CDT You were discharged from the [facility] Cardiovascular Surgery - [facility] Service. Please identify this service name if you call with questions after hospitalization. * Attachments The following attachments cannot be sent through Care Everywhere. * Amiodarone (By mouth) (Malaysian) * Aspirin (By mouth) (Malaysian) * Oxycodone, Rapid Release (By mouth) (Malaysian) * Potassium Chloride (By mouth) (Malaysian) * Senna (By mouth) (Malaysian) documented in this encounter Medications at Time [...] with meals. cyanocobalamin (VITAMIN B12) 1,000 mcg/mL injection Inject [...] by mouth every morning before breakfast. 04/25/2022 rivaroxaban (XARELTO) 20 mg tablet Take 1 tablet (20 mg total) by mouth daily. Okay to start retaking 1 week after surgery 60 tablet 1 09/07/2022 potassium chloride (K-TAB) 20 mEq CR tablet Take 1 tablet (20 mEq total) by mouth 2 (two) times a day for 7 days, THEN 1 tablet (20 mEq total) daily for 7 days. Do not crush or chew.. 21 tablet 08/11/2023 08/25/19 24 amiodarone (PACERONE) 200 mg tablet Take 1 tablet (200 mg total) by mouth 2 (two) times a day for 7 days, THEN 1 tablet (200 mg total) daily for 28 days. 42 tablet 08/11/2023 11/03/19 24 omega-3 fatty acids-fish oil 300-1,000 mg per capsule Take 2 g by mouth daily. 11/01/19 oxyCODONE (ROXICODONE) 5 mg immediate release tabletIndicatio ns:Acute Pain Take 1 tablet (5 mg total) by mouth every 4 (four) hours as needed for moderate pain or score 4-6 of 10 Indication: Acute Pain. 5 tablet 08/11/2023 01/05/20 sennosides-docu sate sodium (SENOKOT-S) 8.6-50 mg per tablet Take 2 tablets by mouth at bedtime as needed for constipation. 08/11/2023 11/01/19 triamcinolone (KENALOG) 0.1 % ointment Apply 1 Application topically as needed for irritation (bump on the back). 12/28/2020 11/01/19 documented as of this encounter Progress Notes * Kylah Bauman, Dilan.D., R.Ph. - 08/11/2023 12:38 PM CDT Clinical Pharmacist Progress Note Procedure during this stay: 08/07/23 Robotic assisted mitral valvuloplasty 32 mm SimuPlus, cleft closure OBJECTIVE Home medications: acetaminophen, allopurinol, atorvastatin, bupropion XL, calcium, carvedilol, B12,ferrous sulfate, furosemide, gabapentin, lisinopril, magnesium oxide, fish oil, omeprazole, rivaroxaban (last dose 08/01/23), triamcinolone ointment Assessment: Hemodynamics: Stable off vasoactives, LVEF 60% on 08/07/23 ECHO Rhythm: Afib RVR converted to sinus, amiodarone taper, carvedilol resumed, do not recommend resuming home propafenone inpatient or upon discharge due to significant drug drug interaction with amiodarone (interaction theoretically exists after discontinuation of amiodarone as well due to long half life of amiodarone) Heme: needs aspirin 81 mg daily plus apixaban 5 mg bid or rivaroxaban 20 mg daily x 3 months (Apixaban after robotic mitral valve repair [facility] 2021) Unclear if rivaroxaban will be preferredgiven tolerated therapy extruder 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 Required right sided VATS exploration for control of chest wall bleeding. Depression: Reesumed Bupropion XL 150 mg daily Gout may resume allopurinol 150 mg po daily when eating HLD: Resumed atorvastatin 20 mg daily Renal: Known CKD 2 at BL Scr ~0.5, appropriate UOP with diuretics Prophylaxis: PPI (hx gastric ulcer), SCD (SQH held due to post op bleedng) Kylah Bauman, Dilan.D., R.Ph. * Smiley Khan - 08/11/2023 12:17 PM CDT 08/11/23 0953 [facility] Therapy Therapy Provided Massage Therapy Seen By Massage Therapist Consult Purpose Integrative pain management Pre-Assessment [facility] Treatment Previously Used No Patient Outcomes Pain Score (muscle tension and my feet feel swollen) Pain Score Post-Intervention 0 - No pain Information nursing approved of extremity massage Integrative Treatment Primary site Upper;Shoulder;Neck;Back;Right;Left;Feet;Extremities Primary Technique Maltese massage Position used Sitting (bedside chair) Massage Pressure Mild Treatment Status Treatment Completed Treatment Start Time 0953 Treatment Stop Time 1035 Interruption (min) 15 (consult, nursing cares, etc) Treatment Length (min) 42 Massage therapy info/consult held with patient. Gladys BenitesHomero Marilou verbally consents to massage therapy.requesting the massage to address upper back tension and bilateral lower extremity swelling. Nursing approved of lower extremity massage. Patient does not report of any areas of pain. Patient requests massage for relaxation Maltese massage provided to sub occipitals, bilateral upper trapezius, rhomboids and bilateral lower legs and feet. . Upon completion, patient expressed thanks for the session commenting on lower discomfort levels and increased relaxation. . Nursing must place a new orderupon patient follow-up requests. Products Used: [employer] * Kennedy Nielsen O.T., O.T.Demetris - 08/11/2023 10:24 AM CDT Discussion regarding patient's comfort level with participation in ADLs and IADLs and independence with such tasks, home going DME and any other home going questions occurred. Patient reports confidence in her ability to return to home going life at baseline, participate in ADLs/IADLs independentlyand endorsed strong support in her if additional support is needed. Patient is currently functioning at baseline and is to be discharged from occupational therapy in the inpatient acute care setting. If status changes, re-consult. * Kaitlynn Fountain D.T.R. - 08/11/2023 9:50 AM CDT Patient was assessed and determined to be nutritionally stable. Clinical nutrition will sign off but will continue to screen per departmental guidelines. Please reconsult for any questions/concerns regarding patient's nutritional status. For questions about patient's nutritional care please contact pager [phone] on weekdays or [phone] on weekends/holidays. * Rosa Varela P.T., D.P.THomero - 08/11/2023 9:24 AM CDT Physical Therapy Inpatient Treatment and Discharge SUBJECTIVE Patient's Name: Gladys Zamarripa Referring/Attending Provider: Richard Aguayo M.D. Reason for Referral: Physical Therapy Evaluate and Treat History of Present Illness: Gladys Zamarripa is a 73 y.o. female who was admitted to [facility] in [place] on 08/07/2023 for Regurgitation Mitral [I34.0] Precautions Other Precautions: Falls risk, cardiac Pain Assessment: Pain not reported during session. Patient/Caregiver Goals: Return to highest level of function Subjective Comments: Patient received in the bathroom, agreeable to participation in PT session. OBJECTIVE Vital Signs Vitals monitored throughout session; within normal ranges. Outcome Measures: AM-PAC Inpatient Short Form: -[facility] Basic Mobility (V.2) How much help from another person do you currently need???If the patient hasn't done an activity recently, how much help from another person do you think he/she would needif he/she tried? 1. Turning from your back to your side while in a flat bed without using bedrails?: None 2. Moving from lying on your back to sitting on the side of a flat bed without using bedrails?: None 3. Moving to and from a bed to a chair (including a wheelchair)?: None 4. Standing up from a chair using your arms (e.g., wheelchair, or bedside chair)?: None 5. To walk in hospital room?: None (Jeannette) 6. Climbing 3-5 steps with a railing?: A Little (recommend supervision for safety) [facility] Basic Mobility (V.2) Raw Score: 23 [facility] Basic Mobility (V.2) Standardized Score: 50.88 Interpretation: Based on scoring guidelines using the raw score value: Those going to home had an average score at or above 18 Those going to facility had an average score at or below 17 Clinicians answer the [facility] Inpatient Short Form based on observed patient activity and/or clinical judgement (ie. patient can be scored without physically performing each activity) 30 second sit to stand test Unable Interpretation: 8 or less = High fall Risk. Female Normal Values for Age Range Age 70-74; score of 10-15 Therapeutic Interventions: Patient was mobilizing independently in the room upon arrival. STAND TO SIT: Assistance Level: Modified Independent Device: gait belt and front wheeled walker Surface: Chair Assistance/Cueing: no cueing required Delivery: assessed GAIT: Distance: 100 meters Assistance Level:Modified Independent Device: gait belt and front wheeled walker Quality: decreased base of support, decreased gait speed, decreased step height, decreased step length Assistance/Cueing:no cueing required Delivery: assessed Comments: no overt loss of balance observed, good tolerance to upright activity STAIRS: 3 + 3 steps with bilateral handrails Assistance Level: Supervision/Stand by Assistance Navigation Pattern: Ascending: step to and forward Descending: step to and forward Intervention provided: Hand Placement and Pacing The following education was provided and discussed this visit: home setup and/or safety, durable medical equipment recommendations, supportive discharge planning, appropriate use of assistive devices, energy conservation techniques, activity pacing, purpose of Physical Therapy, Physical Therapy plan of care, and Physical therapy goals The patient's status was discussed and the following coordination of care occurred with the RN Patient was left in bedside chair at end of session with call light in reach, all needs met and questions answered. Assessment Discharge Therapy Needs - PT: Ongoing skilled physical therapy (pending course of recovery) Skilled therapy can include physical therapy provided by home health, outpatient clinic, or a post-acute facility. The location of these services is determined by the patient's care team in partnership with patient/family. Level of Care Needed - PT: Assistance with transfers (Comment), Assistance with walking and moving around the home, Assistance with bed mobility, Assistance with stairs Equipment Recommended - PT: Front-wheeled walker Barriers to Discharge Home: Fall risk, Current functional status From a physical therapy perspective, the level of care above has been recommended for Ms. Zamarripa after hospital discharge. This level of care is based on her functional abilities during today's session. This may change throughout the hospital course and will be updated as appropriate. Clinical Impression: The patient has made good progress toward her physical therapy goals. Overall, she is mobilizing independently in the room and with modified independence with use of the FWW outside of the room. She completed a full lap around the unit and completed the 6 stairs required. At this time, the patient appears to be at/near her functional baseline and is no longer in need ofskilled inpatient physical therapy intervention. Will complete the order at this time and dischargefrom PT services. If patient status significantly changes, please re-order PT consultation. Goals discussed with patient and she is agreeable to the plan of care at this time. Mobility recommendations: - Up to chair 3 times per day with assistance from nursing staff. - Ambulate in hallway/room 3-5 times per day per patient tolerance with assistance from nursing staff, use chair follow for patient safety. Rehab potential: Ms. Zamarripa has Good potential to achieve established physical therapy goals within the time frame outlined below. Progress: All PT goals achieved Plan PT Plan Comments: Discharge from acute inpatient PT services; all goals met. Functional Goals: PT Inpatient Goals PT Goal #1: Patient will demonstrate bed mobility with independence to demonstrate improved functional mobility and independence. PT Goal #1 Status: Achieved (no dificulty per patient) PT Goal #2: Patient will demonstrate sit to stand transfer with modified independence and least restrictive assistive device to demonstrate improved functional mobility and independence. PT Goal #2 Status: Achieved PT Goal #3: Patient will be able to ambulate at least 100m with modified independence and least restrictive assistive device while executing the task with good safety awareness, stability, and functional strength. PT Goal #3 Status: Achieved PT Goal #4: Patient will negotiate at least 6 stairs with 1 railing and supervision in order to demonstrate safe ability to access home. PT Goal #4 Status: Achieved Treatment Plan: Plan: Discontinue PT PT Amount: 1 visit per day PT Frequency: 5 times per week PT Inpatient Duration : Until goals are met or hospital discharge Requires Inpatient Follow-Up: No PT - Next Inpatient Appointment: 08/11/23 Patient agrees with the plan of care and goals. Treatment interventions may include: Treatment/Interventions: Therapeutic exercise, Therapeutic functional activity, Neuromuscular re-education, Gait training, Self-care/home management Billing: Time Spent with Patient Therapeutic Interventions Gait Training (min): 13 min Therapeutic Activity (min): 12 min Time Tracking Total Timed Units (min): 25 min Total Treatment Time (min): 25 min Genny Varela P.T., D.P.T. * Sindhu Wagner APRN, C.N.P., D.N.P. - 08/10/2023 4:46 PM CDT SUBJECTIVE Gladys Zamarripa is a 73 y.o. female admitted on 08/07/2023 for robotic mitral valve repair, cleft closure and valvuloplasty with Dr. Aguayo. Comorbidities include: Persistent AFib status post 45 cardioversions and 2 transcatheter ablation (2018, 2020), cardiomyopathy with congestive heart failure EF 25% (current EF 61%), mitral valve prolapse with regurgitation, coronary artery disease (lad and RCA) hypertension, hyperlipidemia, anemia,gout, spinal stenosis, vitamin-D deficiency, osteoarthritis, squamous cell carcinoma, alcohol use (10 glasses of wine per week), depression. Hospital Course ICU: Following surgery on 08/06, Gladys Zamarriap returned to the OR for increased bleeding. She required a right VATS, evacuation of retained hemothorax, and control of chest wall bleeding. 24 Hour Events: Gladys Zamarripa continues to remain hemodynamically stable within the PCU. Pleural andmediastinal chest tubes were able to be removed today. Coreg was increased to 12.5 mg, lisinopril was added. Patient has no complaints at this time. Anticipate dismissal testing tomorrow. OBJECTIVE I have reviewed the current vital sign data as applicable to this admission. Recent Results (from the past 24 hour(s)) Glucose, POCT Collection Time: 08/09/23 5:33 PM Result Value Glucose, POCT, B 102 Site Capillary Last Intake 2-3 hours Glucose, POCT Collection Time: 08/09/23 10:22 PM Result Value Glucose, POCT, B 119 Site Capillary Last Intake 2-3 hours Glucose, POCT Collection Time: 08/10/23 6:34 AM Result Value Glucose, POCT, B 109 Site Capillary Last Intake > 4 hours Basic Metabolic Panel Collection Time: 08/10/23 7:10 AM Result Value Potassium, S 4.2 Sodium, S 130 (L) Chloride, S 92 (L) Bicarbonate, S 29 Anion Gap 9 BUN (Blood Urea Nitrogen), S 7 Creatinine 0.50 (L) Estimated GFR (eGFR) >90 Calcium, Total, S 8.8 Glucose, S 115 CBC without Differential Collection Time: 08/10/23 7:10 AM Result Value Hemoglobin 9.3 (L) Hematocrit 27.3 (L) Erythrocytes 2.92 (L) MCV 93.5 RBC Distrib Width 15.2 Platelet Count 163 Leukocytes 11.4 (H) DIAGNOSTICS I have reviewed relevant laboratory, imaging, and other diagnostics as applicable to this admission. PHYSICAL EXAM: General: Alert and oriented. In no acute distress Skin: Warm and dry without acute rashes or lesions. Wound vac covers sternal incision. Eyes: Pupils reactive bilaterally. Conjunctivae pink. ENT: Neck supple. Trachea midline. Heart: Remains in sinus rhythm on bedside monitor. S1, S2 regular rate and rhythm without extra sounds, murmurs, rubs or gallops. Lungs: Respirations regular and easy. Clear and equal to auscultation. Diminished bilateral bases. Abdomen: Soft, non-distended, hypoactive bowel sounds. Extremities: No cyanosis noted, palpable pulses, trace lower extremity edema. Neuro: No focal neurological deficits present. GCS 15. ASSESSMENT / PLAN #1 Atrial Fibrillation Longstanding Persistent (HCC) #2 Cardiomegaly #3 Depression Major Recurrent (HCC) #4 Hyperlipidemia #5 Hypertension Essential Primary #6 Anemia Of Chronic Disease #7 Regurgitation Mitral #8 Alcohol Mild Use Disorder (Abuse) Uncomplicated #9 Chronic Systolic (Congestive) Heart Failure (HCC) #10 Repair Mitral Valve Status Post #11 Anemia Posthemorrhagic Acute (Blood Loss Anemia) #12 Hypokalemia #13 Leukocytosis #14 Bleed Postoperative Initial #15 Pain Postoperative #16 Acidosis Lactic Neuro: No acute concerns. Pain is well controlled on CVS standard protocol. Continue additional multi-modal pain regimen such as heat, ice, massage, Lidocaine patches, and PRN creams. Cardiovascular: Hemodynamically stable in sinus rhythm. HR in the 80-100. BPs in goal range. Initiate lisinopril 2.5 mg daily. Increase carvedilol to 12.5 mg BID. Continue amiodarone PO taper for atrial fibrillation and statin therapy. Pulmonary: Maintaining adequate oxygen saturations on room air. Continue aggressive pulmonary hygiene. Remove all chest tubes. Renal: Adequate urine output. -2.2 L out thus far today. +8 kg from day of surgery weight. Overall net fluid output +2.4 L. Renal indices stable. Continue Lasix 20 mg IV BID, consider up titrating. GI/Endocrine: Last BM Date: 08/10/23. Continue current bowel regimen. PRN bowel regimen available. Continue Adult Diet Regular. Continue to monitor daily glucoses. Heme: Continue DVT prophylaxis with SCDs, ambulation, and anticoagulation regimen. Will discuss anticoagulation plan with surgeon. Aspirin currently being held. ID/Skin: Afebrile, no acute concerns. Post-operative antibiotic regimen complete. Maintain sternal incision wound vac until POD 5. Code Status: Full Code Disposition: Continue to monitor on the PCU. I directly examined/reviewed the plan of care of this patient with the executive talent acquisition consultant surgeon, Dr. Aguayo. Anticipated dismissal date: 08/11. Anticipated destination: Home self-care. PT/OT following. Social work following. Barriers to discharge: Diuresis Dismissal testing Medication reconciliation completed. * Megha Owen P.A.-C., M.S. - 08/10/2023 2:00 PM CDT MEDIASTINAL AND PLEURAL CHEST TUBE REMOVAL: Pleural Chest Tube Removal The right lateral and right medial pleural chest tube(s) were removed. An air leak was not present prior to removal. Pleural chest tube(s) were removed per protocol. Purse string sutures were intact and tied securely. Patient tolerated the procedure without incident. Bilateral breath sounds were audible post-tube removal. An actuation system was not present. * Kylah Bauman Pharm.D., R.Ph. - 08/10/2023 11:17 AM CDT Clinical Pharmacist Progress Note Procedure during this stay: 08/07/23 Robotic assisted mitral valvuloplasty 32 mm SimuPlus, cleft closure OBJECTIVE Home medications: acetaminophen, allopurinol, atorvastatin, bupropion XL, calcium, carvedilol, B12,ferrous sulfate, furosemide, gabapentin, lisinopril, magnesium oxide, fish oil, omeprazole, rivaroxaban (last dose 08/01/23), triamcinolone ointment Assessment: Hemodynamics: Stable off vasoactives, LVEF 60% on 08/07/23 ECHO Rhythm: Afib RVR converted to sinus, amiodarone taper, carvedilol resumed, do not recommend resuming home propafenone inpatient or upon discharge due to significant drug drug interaction with amiodarone (interaction theoretically exists after discontinuation of amiodarone as well due to long half life of amiodarone) Heme: needs aspirin 81 mg daily plus apixaban 5 mg bid or rivaroxaban 20 mg daily x 3 months (Apixaban after robotic mitral valve repair [facility] 2021) Unclear if rivaroxaban will be preferredgiven tolerated therapy extruder 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 Required right sided VATS exploration for control of chest wall bleeding. Depression: Reesumed Bupropion XL 150 mg daily Gout may resume allopurinol 150 mg po daily when eating HLD: Resumed atorvastatin 20 mg daily Renal: Known CKD 2 at BL Scr ~0.5, appropriate UOP with diuretics Prophylaxis: PPI (hx gastric ulcer), SCD (SQH held due to post op bleedng) Kylah Bauman, D., R.Ph. * Rosa Varela P.T., D.P.T. - 08/10/2023 9:14 AM CDT Physical Therapy Inpatient Treatment SUBJECTIVE Patient's Name: Gladys Zamarripa Referring/Attending Provider: Richard Aguayo M.D. Reason for Referral: Physical Therapy Evaluate and Treat History of Present Illness: Gladys Zamarripa is a 73 y.o. female who was admitted to [facility] in [place] on 08/07/2023 for Regurgitation Mitral [I34.0] Precautions Other Precautions: Falls risk, cardiac Pain Assessment: Pain not reported during session. Patient/Caregiver Goals: No goals stated Subjective Comments: Patient received resting in bedside chair, agreeable to participation in PT session. OBJECTIVE Vital Signs Vitals monitored throughout session; within normal ranges. Outcome Measures: AM-PAC Inpatient Short Form: AM-PAC Basic Mobility (V.2) How much help from another person do you currently need???If the patient hasn't done an activity recently, how much help from another person do you think he/she would needif he/she tried? 1. Turning from your back to your side while in a flat bed without using bedrails?: A Little 2. Moving from lying on your back to sitting on the side of a flat bed without using bedrails?: A Little 3. Moving to and from a bed to a chair (including a wheelchair)?: A Little 4. Standing up from a chair using your arms (e.g., wheelchair, or bedside chair)?: A Little 5. To walk in hospital room?: A Little 6. Climbing 3-5 steps with a railing?: A Little [facility] Basic Mobility (V.2) Raw Score: 18 [facility] Basic Mobility (V.2) Standardized Score: 41.05 Interpretation: Based on scoring guidelines using the raw score value: Those going to home had an average score at or above 18 Those going to facility had an average score at or below 17 Clinicians answer the [facility] Inpatient Short Form based on observed patient activity and/or clinical judgement (ie. patient can be scored without physically performing each activity) 30 second sit to stand test Unable Interpretation: 8 or less = High fall Risk. Female Normal Values for Age Range Age 70-74; score of 10-15 Therapeutic Interventions: SIT TO STAND: Assistance Level: Supervision of 1 Device: gait belt and front wheeled walker Surface: Chair and Toilet Assistance/Cueing: verbal and tactile for Sequencing and Upper extremity placement Delivery: educated, instructed, assessed, facilitated, and assisted STAND TO SIT: Assistance Level: Supervision of 1 Device: gait belt and front wheeled walker Surface: Chair and Toilet Assistance/Cueing: verbal and tactile for Alignment with seated surface, Eccentric control, and Lower extremity placement Delivery: educated, instructed, assessed, facilitated, and assisted GAIT: Distance: 90 + 6 meters Assistance Level:Supervision, Contact Guard Assistance of 1 Device: gait belt and front wheeled walker Quality: decreased base of support, decreased gait speed, decreased step height, decreased step length, guarded, shuffling Assistance/Cueing:verbal and tactile for Pacing and Placement within the walker Delivery: educated, instructed, assessed, facilitated, and assisted Comments: no overt loss of balance observed, overall good tolerance to upright activity STAIRS: 3 + 3 steps with bilateral handrails Assistance Level: Contact Guard Assistance Navigation Pattern: Ascending: step to and forward Descending: step to, side step, and forward Intervention provided: Lower Extremity Placement and Pacing The following education was provided and discussed this visit: home setup and/or safety, durable medical equipment recommendations, therapeutic exercise program, appropriate use of assistive devices,energy conservation techniques, activity pacing, purpose of Physical Therapy, Physical Therapy planof care, and Physical therapy goals The patient's status was discussed and the following coordination of care occurred with the RN and OT Patient was left in bedside chair at end of session with call light in reach, all needs met and questions answered. Assessment Discharge Therapy Needs - PT: Ongoing skilled physical therapy (pending course of recovery) Skilled therapy can include physical therapy provided by home health, outpatient clinic, or a post-acute facility. The location of these services is determined by the patient's care team in partnership with patient/family. Level of Care Needed - PT: Assistance with transfers (Comment), Assistance with walking and moving around the home, Assistance with bed mobility, Assistance with stairs Equipment Recommended - PT: Front-wheeled walker TBD with increased activity Barriers to Discharge Home: Fall risk, Current functional status From a physical therapy perspective, the level of care above has been recommended for Ms. Zamarripa after hospital discharge. This level of care is based on her functional abilities during today's session. This may change throughout the hospital course and will be updated as appropriate. Clinical Impression: The patient is making good progress toward her physical therapy goals. She was able to ambulate around the unit as well as complete x6 stairs without excessive fatigue. She has been diligent in mobilizing with staff educator. Given her deficits, the patient will continue to benefit from skilled inpatientphysical therapy intervention to address gait and balance. Rehab potential: Ms. Zamarripa has Good potential to achieve established physical therapy goals within the time frame outlined below. Progress: Progressing toward goals Plan PT Plan Comments: Progress bed/out of bed mobility, stairs prior to dismissal Functional Goals: PT Inpatient Goals PT Goal #1: Patient will demonstrate bed mobility with independence to demonstrate improved functional mobility and independence. PT Goal #1 Status: Ongoing PT Goal #2: Patient will demonstrate sit to stand transfer with modified independence and least restrictive assistive device to demonstrate improved functional mobility and independence. PT Goal #2 Status: Progressing PT Goal #3: Patient will be able to ambulate at least 100m with modified independence and least restrictive assistive device while executing the task with good safety awareness, stability, and functional strength. PT Goal #3 Status: Progressing PT Goal #4: Patient will negotiate at least 6 stairs with 1 railing and supervision in order to demonstrate safe ability to access home. PT Goal #4 Status: Progressing Treatment Plan: Plan: Continue with current plan PT Amount: 1 visit per day PT Frequency: 5 times per week PT Inpatient Duration : Until goals are met or hospital discharge Requires Inpatient Follow-Up: Yes PT - Next Inpatient Appointment: 08/11/23 Patient agrees with the plan of care and goals. Treatment interventions may include: Treatment/Interventions: Therapeutic exercise, Therapeutic functional activity, Neuromuscular re-education, Gait training, Self-care/home management Billing: Time Spent with Patient Therapeutic Interventions Gait Training (min): 13 min Therapeutic Activity (min): 12 min Time Tracking Total Timed Units (min): 25 min Total Treatment Time (min): 25 min Genny Varela P.T., D.P.T. * Russell Waller P.A.-C., M.S. - 08/09/2023 3:45 PM CDT MEDIASTINAL AND PLEURAL CHEST TUBE REMOVAL: Mediastinal Chest Tube Removal The right medial mediastinal chest tube(s) were removed. An air leak was not present prior to removal. Mediastinal chest tube(s) were removed per protocol. Purse string sutures were intact and tied securely. Patient tolerated the procedure without incident. Bilateral breath sounds were audible post-tube removal. An actuation system was not present. * Russell Waller P.A.-C., M.S. - 08/09/2023 9:49 AM CDT SUBJECTIVE Gladys Zamarripa is a 73 y.o. female admitted on 08/07/2023 for robotic mitral valve repair, cleft closure and valvuloplasty with Dr. Aguayo. Comorbidities include: Persistent AFib status post 45 [...] hemothorax, and control of chest wall bleeding. 24 Hour Events: Gladys Zamarripa has done well over the past 24 hours. She developed AFib RVR yesterdayafternoon and an amiodarone infusion was started --she has since been in normal sinus rhythm. She had a moderate amount of chest tube output yesterday, however hemoglobin is stable this morning. OBJECTIVE I have reviewed the current vital sign data as applicable to this admission. DIAGNOSTICS I have reviewed relevant laboratory, imaging, and other diagnostics as applicable to this admission. PHYSICAL EXAM: General: Alert and oriented. In no acute distress Skin: Warm and dry without acute rashes or lesions. Eyes: PERRL ENT: Neck supple. Trachea midline. Heart: Remains in sinus rhythm on bedside monitor. S1, S2 regular rate and rhythm without extra sounds, murmurs, rubs or gallops. Lungs: Clear to auscultation anteriorly Abdomen: Soft, non-distended, hypoactive bowel sounds. Extremities: Warm and well perfused, 1+ lower extremity edema. Neuro: No focal neurological deficits present. ASSESSMENT / PLAN #1 Atrial Fibrillation Longstanding Persistent (HCC) #2 Cardiomegaly #3 Depression Major Recurrent (HCC) #4 Hyperlipidemia #5 Hypertension Essential Primary #6 Anemia Of Chronic Disease #7 Regurgitation Mitral #8 Alcohol Mild Use Disorder (Abuse) Uncomplicated #9 Chronic Systolic (Congestive) Heart Failure (HCC) #10 Repair Mitral Valve Status Post #11 Anemia Posthemorrhagic Acute (Blood Loss Anemia) #12 Hypokalemia #13 Leukocytosis #14 Bleed Postoperative Initial #15 Pain Postoperative #16 Acidosis Lactic Neuro: No acute concerns. Pain is well controlled on CVS standard protocol. Cardiovascular: Hemodynamically stable in sinus rhythm. AFib RVR yesterday afternoon, amiodarone infusion started and she was since been in normal sinus rhythm. We will complete amiodarone infusion today. Will discuss starting home propafenone tomorrow, vs continuing amiodarone taper with Dr. Aguayo. Start home coreg and uptitrate. Will obtain a new EKG to check QTC. Pulmonary: Maintaining adequate oxygen saturations on 2 L nasal cannula. Continue aggressive pulmonary hygiene. Maintain chest tubes. Renal: Adequate urine output. Creatinine within normal limits. We will begin diuresis with 20 mg IVLasix daily. GI/Endocrine: Last BM Date: 08/09/23. Continue current bowel regimen. Continue Adult Diet Regular. Heme: Currently holding all anticoagulation including aspirin and subcutaneous heparin given recentreturned to OR for right hemothorax evacuation. We will discuss timing of resumption of anticoagulation with Dr. Aguayo today ID/Skin: Afebrile, no acute concerns. Post-operative antibiotic regimen complete. Remove central line today. Code Status: Full Code Disposition: Continue to monitor on the PCU. Anticipated dismissal date: 08/11. Anticipated destination: Home self-care. PT/OT following. Barriers to discharge: Chest tubes Diuresis Rhythm Stabilization Medication optimization Medication reconciliation completed. * Fantasma Hernandez P.T., D.P.T. - 08/08/2023 1:00 PM CDT Consult received and chart review of EMR completed. Patient is POD1 from cardiac surgery and is pivoting and ambulating well with nursing staff in the ICU. She may benefit from a formal PT/OT consultin the PCU where level of assist for discharge can better be determined. Fantasma Hernandez, PT, DPT [phone] * Glory Minaya APRN, C.N.P. - 08/08/2023 12:26 PM CDT SONIA Zamarripa is a 73 y.o. female admitted on 08/07/2023 for robotic mitral valve repair, cleft closure and valvuloplasty with Dr. Aguayo. Comorbidities include: Persistent AFib status post 45 [...] hemothorax, and control of chest wall bleeding. 24 Hour Events: Gladys Zamarripa has had an uneventful 24 hours. OBJECTIVE I have reviewed the current vital sign data as applicable to this admission. DIAGNOSTICS I have reviewed relevant laboratory, imaging, and other diagnostics as applicable to this admission. PHYSICAL EXAM: General: Alert and oriented. In no acute distress Skin: Warm and dry without acute rashes or lesions. Surgical incisions C/D/I. Chest tubes in place. Eyes: Pupils reactive bilaterally. Conjunctivae pink. ENT: Neck supple. Trachea midline. Heart: Remains in atrial fibrillation on bedside monitor. S1, S2 regular rate and rhythm without extra sounds, murmurs, rubs or gallops. Lungs: Respirations regular and easy. Clear and equal to auscultation. Diminished bilateral bases. Abdomen: Soft, non-distended, hypoactive bowel sounds. Extremities: No cyanosis noted, 2+ pulses, 1+ lower extremity edema. Neuro: No focal neurological deficits present. ASSESSMENT / PLAN #1 Atrial Fibrillation Longstanding Persistent (HCC) #2 Cardiomegaly #3 Depression Major Recurrent (HCC) #4 Hyperlipidemia #5 Hypertension Essential Primary #6 Anemia Of Chronic Disease #7 Regurgitation Mitral #8 Alcohol Mild Use Disorder (Abuse) Uncomplicated #9 Chronic Systolic (Congestive) Heart Failure (HCC) #10 Repair Mitral Valve Status Post #11 Anemia Posthemorrhagic Acute (Blood Loss Anemia) #12 Hypokalemia #13 Leukocytosis #14 Bleed Postoperative Initial #15 Pain Postoperative #16 Acidosis Lactic Neuro: No acute concerns. Pain is well controlled on CVS standard protocol. Cardiovascular: Hemodynamically stable in atrial fibrillation. HR above goal range. BPs in goal range. Discuss with surgical service when to start propafenone. Pulmonary: Maintaining adequate oxygen saturations on 1 L Nc. Continue aggressive pulmonary hygiene. Maintain chest tubes. Renal: Adequate urine output. Positive 2400 since midnight. Positive 4.4 liters since admission. Renal indices stable. Initiate Lasix 20 IV daily once hemodynamics allow. GI/Endocrine: Last BM Date: 08/07/23 (preop). Continue current bowel regimen. Continue Adult Diet Regular. Continue to monitor glucoses with sliding scale insulin. Heme: Continue DVT prophylaxis with SCDs and ambulation. Hold anticoagulation for due to bleeding requiring return to OR on 08/[address] Aguayo. Hold antiplatelet therapy for 08/[address] Aguayo. ID/Skin: Afebrile, no acute concerns. Post-operative antibiotic regimen will complete per protocol.Maintain Central line.Chest tube purse string sutures in place. Remove at post-operative visit Necksuture in place. Remove Neck suture prior to discharge. Code Status: Full Code Disposition: Plan to transfer to the PCU today. I directly examined/reviewed the plan of care of this patient with the executive talent acquisition consultant surgeon, Dr. Aguayo. Anticipated dismissal date: 08/11/23. Anticipated destination: Home self-care. PT/OT consulted. Barriers to discharge: TBD pending PCU transfer Medication reconciliation completed. * Armani Lopes, Pharm.D., R.Ph. - 08/08/2023 8:16 AM CDT Clinical Pharmacist Progress Note Procedure during this stay: 08/07/23 Robotic assisted mitral valvuloplasty 32 mm SimuPlus, cleft closure OBJECTIVE Home medications: acetaminophen, allopurinol, atorvastatin, bupropion XL, calcium, carvedilol, B12,ferrous sulfate, furosemide, gabapentin, lisinopril, magnesium oxide, fish oil, omeprazole, rivaroxaban (last dose 08/01/23), triamcinolone ointment Assessment: Hemodynamics: Weaned off clevidipine post op with acceptable hemodynamic indices. LVEF 60% on 08/07/23 ECHO Holding off beta sheridan given significant hypovolemia from intraop bleeding Mitral valvuloplasty: needs aspirin 81 mg daily plus apixaban 5 mg bid or rivaroxaban 20 mg daily x3 months (Apixaban after robotic mitral valve repair [facility] 2021) Unclear if rivaroxaban will be preferred given tolerated therapy extruder operator for afib Post op Bleeding: Found to have a significant increase in mediastinal chest tube output, clotted right sided pleural chest tube, and worsening R- sided pleural effusion on repeat CXR. Required right sided VATS exploration for control of chest wall bleeding. Depression: Reesumed Bupropion XL 150 mg daily Gout may resume allopurinol 150 mg po daily when eating HLD: Resumed atorvastatin 20 mg daily Renal: Known CKD 2: NephroCheck result 0.14 (ng/mL)(2)/1000 (Ref range: <0.30 (ng/mL)(2)/1000) indicates Low risk for BRIANNA. ARB/TIFFANIE-Inhibitors and ketorolac permitted if clinically indicated and criteria for use are met. Prophylaxis: PPI (hx gastric ulcer), SCD (SQH held due to post op bleedng) Juan Jose Lopes PharmSho, R.Ph. * Tahir Flanagan PharmSho, R.Ph. - 08/07/2023 12:59 PM CDT Clinical Pharmacist Progress Note Procedure during this stay: 08/07/23 Robotic assisted mitral valvuloplasty 32 mm SimuPlus, cleft closure OBJECTIVE Home medications: acetaminophen, allopurinol, atorvastatin, bupropion XL, calcium, carvedilol, B12,ferrous sulfate, furosemide, gabapentin, lisinopril, magnesium oxide, fish oil, omeprazole, rivaroxaban (last dose 08/01/23), triamcinolone ointment Assessment: Mitral valvuloplasty, needs aspirin 81 mg daily plus apixaban 5 mg bid or rivaroxaban 20 mg daily x3 months (Apixaban after robotic mitral valve repair [facility] 2021) LVEF 60% on 08/07/23 ECHO Persistent AFIB may resume rivaroxaban when ok with Rowse service Hx Gastric ulcer may substitute pantoprazole 40 mg daily for omeprazole 20 mg daily therapeutic interchange per P&T Depression, anxiety may resume Bupropion XL 150 mg daily when appropriate Gout may resume allopurinol 150 mg po daily when eating Minimal non-obstructive CAD, HLD lipid panel 04/25/22 Chol 200, TG 63, HDL 133, LDL 54 Resume atorvastatin 20 mg daily HTN JNC 8 blood pressure goal < 140/90, ACC goal < 130/80 CKD 2 Osteopenia Lumbar spinal stenosis s/p L3-S1 Fusion, TLIF at L3/4, L4/5 Uses gabapentin for pain Pre-diabetes Hgb A1c 4.9% 08/03/23 CORONARY DIAGNOSTIC SUMMARY 08/04/23 angiogram Coronary artery dominance is right. Normal right coronary. Normal left main coronary. Normal circumflex coronary. The proximal left anterior descending artery is 20% obstructed by a discrete lesion. Tahir Flanagan Pharm.D., R.Ph. * Suman Oh M.D. - 08/07/2023 7:30 AM CDT I met with the patient and her preoperatively and reviewed plans for robot assisted mitral valve repair, and I answered their questions. The patient confirms consent to proceeding with surgery. Informed consent was documented by Dr. Aguayo. documented in this encounter H&P Notes * Tristian Herbert M.B., B.Vijaya., B.A.O. - 08/07/2023 7:00 AM CDT INTERVAL HISTORY AND PHYSICAL PRE-PROCEDURE UPDATE H&P reviewed. The patient was examined and there are no significant changes to the H&P. Asad Herman, B.Ch., B.A.O. Source Note - Adam Aceves MPAS, PJoelC. - 08/03/2023 10:30 AM CDT Gladys Zamarripa : 1950 Visit Date: 08/03/23 REFERRING PHYSICIAN: No ref. provider found Home tea room manager: Quan Lopez MD [address] [place] [address] Home primary care provider: Christine Rodriguez MD [address] [place] [id number] SUBJECTIVE CHIEF COMPLAINT / REASON FOR CONSULT Preoperative evaluation and education. HISTORY OF PRESENT ILLNESS Gladys Zamarripa is a 73 y.o. female who presents for a visit today prior to scheduled surgery. Ms. Zamarripa has a cardiac history significant for persistent atrial fibrillation status post 4-5 cardioversions and 2 transcatheter ablations (2018, 2020), history of reduced ejection fraction cardiomyopathy (LVEF 25%), and mitral valve prolapse with mitral valve regurgitation. 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 Most recent echocardiogram today revealed moderate mitral valve regurgitation, coaptation defect/gap due to cleft between P1 and P3, severely enlarged left atrial size, and LVEF 61%. Patient lives an active lifestyle and states she does not experience noticeable limitations in during cardiovascular exercises. Patient has experienced long- standing intermittent palpitations most commonly in the evening and have greatly improved following last ablation in 2018. She states while onthe treadmill, she will have mild shortness of breath after ambulating prolonged periods of time which improves with rest. She also mentions intermittent episodes of swelling in her lower extremities. Denies symptoms of chest pain, orthopnea, PND, irregular heart rhythm, dizziness, and syncope. NYHA Class I: Symptoms only at activity levels that would limit normal individuals Patient meets criteria for chronic heart failure with preserved ejection fraction. Other medical comorbidities include: Hypertension, hyperlipidemia, anemia of chronic disease (recommended 40,000 unites Retacrit and 1000 mg IV iron dextran once preoperatively), gout, spinal stenosis, vitamin D deficiency, osteoarthritis, squamous cell carcinoma, alcohol usage (10 glasses of wine per week), and depression. BMI: -24.36 Patient Active Problem List Diagnosis Stenosis Spinal Atrial Fibrillation Longstanding Persistent (HCC) Cardiomegaly Depression Major Recurrent (HCC) Hyperlipidemia Hypertension Essential Primary Anemia Gout Anemia Of Chronic Disease Spinal Stenosis Lumbar Region Without Neurogenic Claudication Regurgitation Mitral Preoperative Examination Cardiovascular Deficiency Vitamin D Osteoarthritis Malignant Neoplasm Of Skin Squamous Cell Carcinoma Alcohol Mild Use Disorder (Abuse) Uncomplicated Past Medical History: Diagnosis Date Acute Gastric [...] 06-05-2015 Other Injury Of Unspecified Body Region [id number] Fall on left knee Pain Cervical 08/23/2006 PreDiabetes Skin Cancer (Primary) NOS 11-04-2019 Past Surgical History: Procedure Laterality Date APPENDECTOMY 2020 BREAST SURGERY 1996 BUNIONECTOMY Bilateral both feet x2 on both feet SECTION 1979&1982 DECOMPRESSION POSTERIOR LUMBAR AND FUSION N/A 08/31/2022 Procedure: L3-S1 Fusion, TLIF at L3/4, L4/5.; Surgeon: Matt Zheng M.D.; Location: [facility] OR SQUAMOUS CELL CARCINOMA EXCISION 2023 Left leg in 2023 Family History Problem Relation Age of Onset Lung cancer Mother Prostate cancer Father Other cancer Brother Multiple myeloma Heart attack Brother Heart attack Brother Heart attack Brother Bladder cancer Brother Heart attack Paternal Grandfather Coronary artery disease Paternal Grandfather The patient does have a family history of early coronary artery disease (men < age 55, women < age 65). Social History Tobacco Use Smoking status: Former Packs/day: 0.00 Years: 7.00 Additional pack years: 0.00 Total pack years: 0.00 Types: Cigarettes Start date: 10/03/1966 Quit date: 03/05/1974 Years since quittin.4 Smokeless tobacco: Never Substance Use Topics Alcohol [...] tablet, Take 150 mg by mouth daily. atorvastatin (LIPITOR) 20 mg tablet, Take 20 mg by mouth daily. buPROPion XL (WELLBUTRIN XL) 150 mg 24 hr tablet, Take 150 mg by mouth daily. calcium carbonate 1,500 mg (600 mg calcium) tablet, Take 1 tablet by mouth daily. cyanocobalamin (VITAMIN B12) 1,000 mcg/mL injection, Inject 1,000 mcg intramuscularly every 30 (thirty) days. ferrous sulfate 325 mg (65 mg iron) tablet, Take 325 mg by mouth every other day. furosemide (LASIX) 20 mg tablet, Take 20 mg by mouth daily. gabapentin (NEURONTIN) 300 mg capsule, Take 300 mg by mouth 3 (three) times a day. lisinopriL (PRINIVIL,ZESTRIL) 5 mg tablet, Take 5 mg by mouth 2 (two) times a day. magnesium oxide (MAG-OX) 400 mg (241.3 mg magnesium) tablet, Take 1 tablet by mouth daily. mupirocin (BACTROBAN) 2 % ointment, Apply a pea sized amount to each nostril the night before and morning of surgery omega-3 fatty acids-fish oil 300-1,000 mg per capsule, Take 2 g by mouth daily. omeprazole (PriLOSEC) [address] capsule, Take 20 mg by mouth every morning before breakfast. propafenone (RYTHMOL) 150 mg tablet, Take 150 mg by mouth every 8 (eight) hours. rivaroxaban (XARELTO) 20 mg tablet, Take 1 tablet (20 mg total) by mouth daily. Okay to start retaking 1 week after surgery triamcinolone (KENALOG) 0.1 % ointment, Apply 1 Application topically as needed for irritation (bump on the back). REVIEW OF SYSTEMS Negative for seizure, stroke, thyroid issues, asthma or other lung problems, sleep apnea, history of blood clotting or bleeding disorders, swallowing problems or history of esophageal stricture, liver or kidney issues, difficulty with urination, muscle or joint problems. The patient has not had previous difficulties with anesthesia. No steroids or blood transfusions within the last three months. No unaddressed pain or mental health concerns. Last visit to the dentist 04/18/2023, no current dental issues. Dental clearance form scanned into the EMR. Positive for: See HPI. OBJECTIVE VITAL SIGNS Temperature: [36.3 ??C] 36.3 ??C Blood Pressure: (124)/(84) 124/84 SpO2: [95 %] 95 % Height: [159.4 cm] 159.4 cm Weight: [61.9 kg] 61.9 kg BSA (Calculated - sq m): [1.65 sq meters] 1.65 sq meters BMI (Calculated): [24.4 kg/m??] 24.4 kg/m?? Pulse Rate: [92] 92 PHYSICAL EXAMINATION General: Alert and oriented. No acute distress. Cardiovascular: Regular rate and rhythm, 3/6 murmur heard best over the apical aspect. Respiratory: Lungs are clear to auscultation bilaterally. Extremities: Warm. Pulses +2. No edema bilaterally. No varicosities. DIAGNOSTICS I have reviewed the patient's current laboratory results, chest x-ray, EKG, and echocardiogram. Outside imaging. Labs: Lab Results Component Value Date WBC 4.8 08/03/2023 WBC 6.1 06/30/2023 RBC 3.61 (L) 08/03/2023 RBC 3.61 (L) 08/03/2023 RBC 3.43 (L) 06/30/2023 HGB 12.1 08/03/2023 HGB 11.5 (L) 06/30/2023 HGB 8.2 (L) 08/31/2022 HCT 35.5 08/03/2023 HCT 33.4 06/30/2023 PLT 218 08/03/2023 PLT 316 06/30/2023 MCV 98.3 (H) 08/03/2023 MCV 97 06/30/2023 MCH 33.5 06/30/2023 MCHC 34.4 06/30/2023 RDW 14.8 08/03/2023 RDW 14.6 06/30/2023 Lab Results Component Value Date NA 137 08/03/2023 NA 139 02/28/2023 KSERUM 3.8 08/03/2023 KSERUM 3.4 (L) 02/28/2023 CL 95 (L) 08/03/2023 CL 93 (L) 02/28/2023 CO2 23 05/13/2022 BUN 8 08/03/2023 BUN 10 02/28/2023 CREATININE 0.66 08/03/2023 CREATININE 0.58 02/28/2023 EGFRNONBLKAA >60 05/24/2021 Lab Results Component Value Date INR 0.9 08/03/2023 No results found for: EF ASSESSMENT / PLAN #1 Preoperative Examination Cardiovascular #2 Regurgitation Mitral #3 Atrial Fibrillation Longstanding Persistent (HCC) #4 Cardiomegaly #5 Hypertension Essential Primary #6 Hyperlipidemia #7 Anemia Of Chronic Disease #8 Spinal Stenosis Lumbar Region Without Neurogenic Claudication #9 Stenosis Spinal #10 Malignant Neoplasm Of Skin Squamous Cell Carcinoma #11 Osteoarthritis #12 Deficiency Vitamin D #13 Depression Major Recurrent (HCC) #14 Gout #15 PreDiabetes #16 Alcohol Mild Use Disorder (Abuse) Uncomplicated Ms. Zamarripa is scheduled for robotic-assisted mitral valve repair with Dr. Aguayo (primary) and Dr. Oh (secondary) on 08/07/2023. Case listing was updated. Intraoperative orders were placed. Patient is scheduled to obtain a coronary angiogram tomorrow to rule out need for possible coronaryartery bypass the right coronary artery which was not well visualized on chest CT scan. Patient will meet with Dr. Aguayo following this procedure and [facility] team to obtain consent. Case listing will be adjusted as needed if open procedure is recommended. Last dose of Xarelto was on 07/31/2023. Other medications that are being held for surgery: -Last dose of lisinopril on 08/04/2023. Over the counter vitamins and supplements were discontinued one week ago. Last dose of probiotic was today on 08/03/2023. Preoperative rapid recovery criteria: Preoperative rapid recovery criteria: Patient meets preoperative inclusion criteria for rapid recovery pathway. Case listing has been updated. For anesthesia: -Anemia of chronic disease (s/p 40,000 unites Retacrit and 1000 mg IV iron dextran on 07/14/23, mostrecent hemoglobin 12.1 on 08/03/2023) For postoperative care: -PT/OT consult (patient utilizes walking stick for balance following back surgery) -History of diarrhea from C. Diff infection (now resolved) -Anemia of chronic disease (s/p 40,000 unites Retacrit and 1000 mg IV iron dextran on 07/14/23, mostrecent hemoglobin 12.1 on 08/03/2023) Caprini Total Score: 4 The patient is at high risk for [...] [phone]) pamphlet; Your guide to Cardiac Surgery [id number]; Surgical Site Infection: Reducing Your Risk (MC 6471); Central Venous Catheter Infection: Reducing Your Risk ([id number]). Patient instructed to report to [facility] for Bactroban prescription. Application instructions provided. Preoperative diet and medication instructions given. Instructed to report to admissions desk for hospital pre-admissions. Patient verbalized understanding of instructions and all questions were answered. CONSENT Will be obtained tomorrow following coronary angiogram in appointment with Dr. Aguayo in clinic. Thank you for the opportunity to participate in the care of this patient. I personally spent 60 minutes in care of the patient today. Time includes both [id number] patient care. JACQUE Cam, P.A.-C. documented in this encounter Consult Notes * Tahir Alejo L.G.S.W., M.S.W. - 08/09/2023 1:23 PM CDTAssociated Order(s): IP CONSULT TO CARE MANAGEMENT Psychosocial Assessment SUBJECTIVE Assessment Information Referral Source: SEARCH ADVERTISING STRATEGIST/PA Referral Name: Bon Manuel Orly Almanzar, JOHNSON C.N.P., M.S.N. Referral Reason: Psychosocial assessment, Discharge Planning Primary Language: Malaysian Textiles Sales Representative Services Used: No Sexuality/Pronoun: Straight Person(s) present during interview: patient Disclaimer: They were advised of the various topics that will be assessed during this evaluation. They consented to proceed. The information provided in the assessment is based on review of the medical record as well as the face to face interview. They were advised that the content of this interview will be shared with the health care team and documented in the medical record. They were advised that anyone with access to their patient portal will have access to this information. It was discussed that staff are mandated reporters and they reported understanding. History of Present Illness #1 Atrial Fibrillation Longstanding Persistent (HCC) #2 Cardiomegaly #3 Depression Major Recurrent (HCC) #4 Hyperlipidemia #5 Hypertension Essential Primary #6 Anemia Of Chronic Disease #7 Regurgitation Mitral #8 Alcohol Mild Use Disorder (Abuse) Uncomplicated #9 Chronic Systolic (Congestive) Heart Failure (HCC) #10 Repair Mitral Valve Status Post #11 Anemia Posthemorrhagic Acute (Blood Loss Anemia) #12 Hypokalemia #13 Leukocytosis #14 Bleed Postoperative Initial #15 Pain Postoperative #16 Acidosis Lactic Patient is hospitalized on MB 5C in Room 690 seated in bedside chair eating breakfast, alert and oriented x 4. Social History Citizenship: [place] Citizen Resident Status: [place] Res[place] Marital Status: Family / Household: patient and spouse live in a farmhouse built in the 1870s; remodeled to have all needs met on the main floor Support System: spouse, children, family members, pentecostalism/nicole community, and friends/neighbors Primary Caregiver: self Spirituality/Episcopal/Cultural Factors: Oriental Orthodox History: No Employment: retired Psychosocial Risk Factors Impacting the Patient: mental health, comorbidities, and family stress Maltreatment: none reported Trauma: none reported Current Legal Status: Voluntary SDOH Transportation: In the past 12 months, has lack of transportation kept you from medical appointments or from getting medications?: No In the past 12 months, has lack of transportation kept you from meetings, work, or from getting things needed for daily living?: No SDOH Utilities: SDOH Food Insecurity: Within the past 12 months, you worried that your food would run out before you got the money to buymore.: Never true Within the past 12 months, the food you bought just didn't last and you didn't have money to get more.: Never true SDOH Housing: What is your living situation today?: I have a steady place to live [facility] Intimate Partner Violence: Within the last year, have you been afraid of your partner or ex-partner?: No Within the last year, have you been humiliated or emotionally abused in other ways by your partner or ex-partner?: No Within the last year, have you been kicked, hit, slapped, or otherwise physically hurt by your partner or ex-partner?: No Within the last year, have you been raped or forced to have any kind of sexual activity by your partner or ex-partner?: No Current Stressors significant sequential major operations in the past year, son spouse and providing support with grandchildren, as well as several family deaths within only the last few years Coping Skills/Strengths talking to friends, crossword puzzles, reading, meditation/prayer, mindful breathing, gratitude journal, gardening, engagement with family and community members; planning to attend individual and couples therapy in the future Financial/Insurance Primary insurance: MEDICARE A AND B Secondary insurance: [facility] Advance Directives Legal Decision Maker: Self Advance Directives: N/A Advance Directives Status: None on file Baseline Functional Status Baseline Activities of Daily Living Mobility: Independent Dressing: Independent Feeding: Independent Bathing: Independent Grooming: Independent Toileting: Independent Behavior: Appropriate, Pleasant, Cooperative, Calm, Oriented Communication: Can write, Talks, Understands speaking, Understands Malaysian, Reads, Deaf/hard of hearing Shopping: Independent Medication Management: Independent Housekeeping: Independent Meal Prep: Independent Assistive Devices: Blood pressure cuff, Cellphone, Hearing aid(s), Handrails for stairs, Walker - front wheeled, Tub/shower chair/bench, Walker - four wheeled, and reading glasses Transportation: Independent to drive Managing Finances: Independent Baseline Services/Resources Primary care clinic and provider: ELSEWHERE, PCP Anticipated Needs Individual and/or Couples Therapy OBJECTIVE Substance Abuse Patient stated that she drinks 1-2 glasses of wine about five times weekly; former smoker but quit in the 1960s or 1970s. Mental Health Mental Health History: Major Depressive Disorder, recurrent; endorsed symptoms consistent with Generalized Anxiety Disorder Medication History: bupropion XL 24 hr tablet 150 mg daily; Suicide Risk and Safety Risk Assessment: Patient denies any history of SI. Homicidal: no Mental Status Orientation: Oriented to person, place and time and Oriented to situation Level of consciousness: Awake and alert Appearance: Age appearing, Healthy, Relaxed, and Well-groomed Behavior observed: Calm and Interactive Memory: Excellent based on ability to recall details from short and long-term memory. Concentration: Excellent based on ability to follow and engage in productive conversation. Cooperation: cooperative, forthcoming, and reliable Mood: okay, calm, anxious, overwhelmed, and fluctuating Affect: Anxious, Full range, Mood-congruent, Reactive, and Within a normal range Speech: Articulate and Within normal limits for volume, rate and tone Thought content: No abnormality noted Thought process: Intact and Logical, linear, and goal-directed Judgement: intact Insight: intact Review of Psychiatric Symptoms: Anxiety symptoms: ruminative worry, generalized worries, medical illness anxiety, and excessive worry Depression symptoms: worsened mood, sad, hopeless, anhedonia, diminished interest/pleasure in activities, and inappropriate guilt ASSESSMENT / PLAN Discussion Patient provided a brief overview of the history leading up to this robotic procedure, suggesting that 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 She sharedthat she experiences multiple comorbidities including a spinal surgery about a year ago, this surgery, and chronic skin cancer(s) among other conditions. Over the past year since the spinal surgery she has been active at a senior center in fitness programs, which she plans to continue. 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 She describes her as strong and able, but notes concern for the stress that her medical needs may place upon him. Additionally, the couple is experiencing stress around the divorce of their son from his spouse and providing support for their grandchildren. She lists her daughter, son, son-in- law, spouse, siblings of the patient and her spouse (particularly a kavbua-uv-noo who is a retirednurse), niece and her older children, friends, and pentecostalism community as being supportive. Though, she grapples with a lot of anxiety and depression around a significant number of friends and family members who have in recent years as well as due to her own medical conditions and family stresses. Patient plans to pursue individual and/or couples therapy in the future, but cites difficulties inobtaining appointment. Patient darrell through the use of psychotropic medication as well as talking to friends, crossword puzzles, reading, book club, meditation/prayer, mindful breathing, gratitude journal, pentecostalism discussion group, visiting the theater(s), and gardening. Social Work affirmed patient coping strengths. Patient states that she and spouse live in a farmhouse built in the 1870s, but have remodeled it tohave all of their needs met on the main level. There are handrails on all stairs and not stairs to enter via the garage. The bathroom features a tub/shower combo and a shower chair is available. Assessment/Impressions Patient has excellent insight into her challenges, needs, and solutions. She has a plan to attend individual and/or couples therapy in the future after she recovers from this procedure. Patient identifies several family members who live near her that can provide support if necessary. Interventions Introduced role of social work Psychosocial assessment Discharge planning Supportive, reflective, and empathetic listening Strengths based rapport building Solution focused motivational interview Trauma informed responsiveness Brief Cognitive Behavioral Therapy Plan 1) Social Work will continue to consult for discharge planning and/or supportive visits as appropriate. Sarwat Dudley, M.S.W. 08/09/2023 * Rosa Varela P.T., D.P.T. - 08/09/2023 10:26 AM CDT Physical Therapy Inpatient Evaluation/Treatment SUBJECTIVE Patient's Name: Gladys BenitesHomero Marilou Referring/Attending Provider: Richard Aguayo M.D. Reason for Referral: Physical Therapy Evaluate and Treat Pertinent Medical / Surgical History: Gladys Zamarripa has a past medical history of Acute Gastric Ulcer Without Hemorrhage Or Perforation(10/16/2009), Anxiety Generalized Disorder (02-03-2021), Atrial Fibrillation Unspecified (HCC) (06-05-2016), Atypical Atrial Flutter (HCC), Cardiomyopathy Stress Induced, Depressive Disorder (02-03-2021), Gastroesophageal Reflux Disease Without Esophagitis, Hyperlipidemia, Hypertension NOS (2001), Melanoma Skin (HCC) (03-05-2021), Osteopenia (06-05-2015), Other Injury Of Unspecified Body Region ([id number]), Pain Cervical (08/23/2006), PreDiabetes, and Skin Cancer (Primary) NOS (11-04-2019). Gladys Zamarripa has a past surgical history that includes Breast surgery (1996); section (1979&1982); Bunionectomy (Bilateral); Appendectomy (2020); Decompression Posterior Lumbar and Fusion (N/A, 08/31/2022); Squamous cell carcinoma excision (2023); ANGIOGRAM (N/A, 08/04/2023); Decortication - Thoracoscopy (VATS) (Right, 08/07/2023); and Robotic-Assisted Mitral Valve - Valvuloplasty (N/A, 08/07/2023). History of Present Illness: Gladys Zamarripa is a 73 y.o. female who was admitted to [facility] in [place] on 08/07/2023 for Regurgitation Mitral [I34.0]. Precautions Other Precautions: Falls risk, cardiac RST PT/OT Falls screen: Fall in the last 12 months: Yes Did you have an injury with the fall: Yes Are you fearful of falling: No Home Living and Equipment: Lives with: Spouse/Significant other Receives help from: Family, Spouse/Significant other, Friend(s), and Neighbor Type of Home: House Home Layout: Multi-Level Able to live on main level with bedroom/bathroom Laundry main level Home Access: Level entry Stairs to alternate level: Number of steps: 14, Railing: unilateral handrail Bathroom Accessibility: Shower: Tub/Shower Level: Main Floor Enclosure Type: Curtain Bathroom Equipment: Shower chair without back Toilet: Standard Toilet Level: Main Floor Toilet Equipment: Vanity next to toilet Assistive Device Owned: Front wheeled walker, Four wheeled walker, Walking sticks Adaptive Equipment Owned: None Other DME Owned: Adjustable bed Prior Level of Function and Mobility: Basic Activities of Daily Living: Independent Instrumental Activities of Daily Living: Independent Shared with family member Functional Mobility: Modified Independent, Four wheeled walker, walking sticks Driving: Yes Occupational Role: Retired Leisure Interests: crossword, reading, friends, tv N.b., PLOF/home setup copied from OT assessment, but reviewed/confirmed with patient. Pain Assessment: Pain not reported during session. Patient/Caregiver Goals: Return to highest level of function Subjective Comments: Patient received resting in bedside chair, agreeable to participation in PT evaluation. OBJECTIVE Vital Signs: Vitals monitored throughout session; within normal ranges. Evaluation Assessments: Strength: Generalized weakness Upper extremities within functional limits Lower extremities within functional limits Range of Motion: Upper extremities within functional limits Lower extremities within functional limits Balance: Static Sitting: Good (Maintains balance without support) Dynamic Sitting: Good (Maintains balance without support) Static Standing: Good (Maintains balance without support) Dynamic Standing: Fair (Maintains balance with handheld assist) Activity Tolerance: Endurance: Tolerates 10-20 minutes of activity Cognition: Alert, Oriented x 4 Outcome Measures: -[facility] Inpatient Short Form: AM-[facility] Basic Mobility (V.2) How much help from another person do you currently need???If the patient hasn't done an activity recently, how much help from another person do you think he/she would needif he/she tried? 1. Turning from your back to your side while in a flat bed without using bedrails?: A Little 2. Moving from lying on your back to sitting on the side of a flat bed without using bedrails?: A Little 3. Moving to and from a bed to a chair (including a wheelchair)?: A Little 4. Standing up from a chair using your arms (e.g., wheelchair, or bedside chair)?: A Little 5. To walk in hospital room?: A Little 6. Climbing 3-5 steps with a railing?: A Little AM-PAC Basic Mobility (V.2) Raw Score: 18 AM-PAC Basic Mobility (V.2) Standardized Score: 41.05 Interpretation: Based on scoring guidelines using the raw score value: Those going to home had an average score at or above 18 Those going to facility had an average score at or below 17 Clinicians answer the -[facility] Inpatient Short Form based on observed patient activity and/or clinical judgment (ie. patient can be scored without physically performing each activity) 30 second sit to stand test Unable Interpretation: 8 or less = High fall Risk. Female Normal Values for Age Range Age 70-74; score of 10-15 Therapeutic Interventions: SIT TO SUPINE: Assistance Level: Contact Guard Assistance of 1 Device: bedrail Assistance/Cueing: verbal and tactile for Lower extremity movement/management, Sequencing, and Upper extremity movement/management Delivery: educated, instructed, assessed, facilitated, and assisted SIT TO STAND: Assistance Level: Contact Guard Assistance of 1 Device: gait belt and front wheeled walker Surface: Chair and Toilet Assistance/Cueing: verbal and tactile for Sequencing and Upper extremity placement Delivery: educated, instructed, assessed, facilitated, and assisted STAND TO SIT: Assistance Level: Supervision of 1 Device: gait belt and front wheeled walker Surface: Bed and Toilet Assistance/Cueing: verbal and tactile for Upper extremity placement Delivery: educated, instructed, assessed, facilitated, and assisted GAIT: Distance: 80 meters Assistance Level:Supervision, Contact Guard Assistance of 1 Device: gait belt and front wheeled walker Quality: decreased base of support, decreased gait speed, decreased step height, decreased step length, guarded, shuffling Assistance/Cueing:verbal for Pacing and Placement within the walker Delivery: educated, instructed, assessed, facilitated, and assisted Comments: no overt loss of balance observed, overall appropriate use of FWW during gait THERAPEUTIC EXERCISE: Seated Therapeutic Exercise: Side: bilateral, lower extremity(ies) Mode: active range of motion Exercises: Ankle pumps and Long arc quads Repetitions: 10 Assist/cueing: Full range of motion The following education was provided and discussed this visit: home setup and/or safety, durable medical equipment recommendations, supportive discharge planning, therapeutic exercise program, appropriate use of assistive devices, energy conservation techniques, activity pacing, purpose of PhysicalTherapy, Physical Therapy plan of care, and Physical therapy goals The patient's status was discussed and the following coordination of care occurred with the RN and OT Patient was left in bed at end of session with call light in reach, all needs met and questions answered. Assessment Discharge Therapy Needs - PT: Ongoing skilled physical therapy (pending course of recovery) Skilled therapy can include physical therapy provided by home health, outpatient clinic, or a post-acute facility. The location of these services is determined by the patient's care team in partnership with patient/family. Level of Care Needed - PT: Assistance with transfers (Comment), Assistance with walking and moving around the home, Assistance with bed mobility, Assistance with stairs Equipment Recommended - PT: Front-wheeled walker TBD with increased activity Barriers to Discharge Home: Fall risk, Current functional status From a physical therapy perspective, the level of care above has been recommended for Ms. Zamarripa after hospital discharge. This level of care is based on her functional abilities during today's session. This may change throughout the hospital course and will be updated as appropriate. Clinical Impression: Gladys Zamarripa is a 73 y.o. female admitted 08/07/2023 for Regurgitation Mitral [I34.0] (see above for full details). Currently, the patient presents with generalized weakness, impaired standing balance, abnormal gait mechanics, and decreased activity tolerance. She required grossly contact guard to supervision level of assistance with use of the FWW for all bed/out of bed mobility. She has been diligent in mobilizing with staff and activity was well tolerated. The FWW was intermittently cast aside during bathroom/transfer activities; will continue to reinforce the appropriate use of gait aids in future sessions. Patient would benefit from continued Physical Therapy interventions to optimize functional mobility, strength/balance, activity tolerance, and to assist with dismissal planning. Will continue to workwith the patient throughout this hospitalization to progress towards functional mobility goals and maximize independence. Goals discussed with patientand she is agreeable to the plan of care at this time. Mobility recommendations: - Up to chair 3 times per day with assistance from nursing staff. - Ambulate in hallway/room 3-5 times per day per patient tolerance with assistance from nursing staff, use chair follow for patient safety. Physical therapy treatment is medically necessary to restore and maximize function, maximize safetyand facilitate discharge to home, teach and educate the patient and/or caregivers. Progress: Progressing toward goals Plan PT Plan Comments: Progress bed/out of bed mobility, stairs prior to dismissal Functional Goals: PT Inpatient Goals PT Goal #1: Patient will demonstrate bed mobility with independence to demonstrate improved functional mobility and independence. PT Goal #1 Status: Progressing PT Goal #2: Patient will demonstrate sit to stand transfer with modified independence and least restrictive assistive device to demonstrate improved functional mobility and independence. PT Goal #2 Status: Progressing PT Goal #3: Patient will be able to ambulate at least 100m with modified independence and least restrictive assistive device while executing the task with good safety awareness, stability, and functional strength. PT Goal #3 Status: Progressing PT Goal #4: Patient will negotiate at least 6 stairs with 1 railing and supervision in order to demonstrate safe ability to access home. PT Goal #4 Status: Ongoing Gladys Zamarripa has Good rehab potential to meet the expected outcomes in a reasonable period of time. Treatment Plan: Plan: Plan of care initiated PT Amount: 1 visit per day PT Frequency: 5 times per week PT Inpatient Duration : Until goals are met or hospital discharge Requires Inpatient Follow-Up: Yes PT - Next Inpatient Appointment: 08/10/23 Patient agrees with the plan of care and goals. Treatment interventions may include: Treatment/Interventions: Therapeutic exercise, Therapeutic functional activity, Neuromuscular re-education, Gait training, Self-care/home management Tiered PT Evaluation Codes: Comorbid Conditions: Other (Comment), Cardiopulmonary disease (see above) Personal Factors: Needs assistive device, History of falls, Age Examination elements: 3 Clinical Presentation: Evolving Clinical Decision Making: Moderate complexity clinical decision making Billing: Time Spent with Patient Evaluations PT Eval - Mod Complexity: 10 min Therapeutic Interventions Gait Training (min): 10 min Therapeutic Activity (min): 8 min Therapeutic Exercise (min): 3 min Time Tracking Total Timed Units (min): 21 min Total Treatment Time (min): 31 min Genny Varela P.T., D.P.T. * Freida Coreas, [facility] - 08/09/2023 9:47 AM CDTAssociated Order(s): IP CONSULT TO CARDIAC REHABILITATION Cardiac Rehabilitation Referral Reason for Visit: Cardiovascular [...] the cardiac rehab program. Patient referred to: [facility] [address] [place] [id number] Recommend that the patient check with insurance company to verify coverage of the cost of cardiac rehabilitation program visits. * Kennedy Nielsen O.T., O.T.D. - 08/09/2023 8:33 AM CDT Occupational Therapy Acute Hospital Inpatient Evaluation/Treatment SUBJECTIVE Patient's Name: Gladys Zamarripa Referring/Attending Provider: Richard Aguayo M.D. Reason for Referral: Occupational Therapy Evaluation and Treatment PERTINENT MEDICAL / SURGICAL HISTORY: Gladys Zamarripa has a past medical history of Acute Gastric Ulcer Without Hemorrhage Or Perforation(10/16/2009), Anxiety Generalized Disorder (02-03-2021), Atrial Fibrillation Unspecified (HCC) (06-05-2016), Atypical Atrial Flutter (), Cardiomyopathy Stress Induced, Depressive Disorder (02-03-2021), Gastroesophageal Reflux Disease Without Esophagitis, Hyperlipidemia, Hypertension NOS (2001), Melanoma Skin (HCC) (03-05-2021), Osteopenia (06-05-2015), Other Injury Of Unspecified Body Region ([id number]), Pain Cervical (08/23/2006), PreDiabetes, and Skin Cancer (Primary) NOS (11-04-2019). Gladys Zamarripa has a past surgical history that includes Breast surgery (1996); section (1979&1982); Bunionectomy (Bilateral); Appendectomy (2020); Decompression Posterior Lumbar and Fusion (N/A, 08/31/2022); Squamous cell carcinoma excision (2023); ANGIOGRAM (N/A, 08/04/2023); Decortication - Thoracoscopy (VATS) (Right, 08/07/2023); and Robotic-Assisted Mitral Valve - Valvuloplasty (N/A, 08/07/2023). History of Present Illness: Gladys Zamarripa is a 73 y.o. female who was admitted to [facility] in [place] on 08/07/2023 for Regurgitation Mitral [I34.0]. Precautions Other Precautions: cardical falls Falls screen: Fall in the last 12 months: Yes Did you have an injury with the fall: Yes; tibial plateau fx, recovered now Are you fearful of falling: No Pain Assessment: Pain not reported during session. Subjective Comments: Agreeable to therapy session. Patient greeted in chair and agreeable to therapy session. Team Communication: The patient's status was discussed and coordination of care occurred with RN, PT Home Living and Equipment: Lives with: Spouse/Significant other Receives help from: Family, Spouse/Significant other, Friend(s), and Neighbor Type of Home: House Home Layout: Multi-Level Able to live on main level with bedroom/bathroom Laundry main level Home Access: Level entry Stairs to alternate level: Number of steps: 14, Railing: unilateral handrail Bathroom Accessibility: Shower: Tub/Shower Level: Main Floor Enclosure Type: Curtain Bathroom Equipment: Shower chair without back Toilet: Standard Toilet Level: Main Floor Toilet Equipment: Vanity next to toilet Assistive Device Owned: Front wheeled walker, Four wheeled walker, Walking sticks Adaptive Equipment Owned: None Other DME Owned: Adjustable bed Prior Level of Function and Mobility: Basic Activities of Daily Living: Independent Instrumental Activities of Daily Living: Independent Shared with family member Functional Mobility: Modified Independent, Four wheeled walker, walking sticks Driving: Yes Occupational Role: Retired Leisure Interests: crossword, reading, friends, tv Patient/Caregiver Goals: Decrease pain Discharge home Return to prior level of function OBJECTIVE Vital Signs: Vitals monitored throughout session; within normal ranges. Evaluation Assessment: STRENGTH: Not formally assessed but appears within functional limits based on observation RANGE OF MOTION: Not formally assessed but appears within functional limits based on observation BALANCE: Static Sitting: Good (Maintains balance without support) Dynamic Sitting: Good (Maintains balance without support) Static Standing: Good (Maintains balance without support) Dynamic Standing: Fair (Maintains balance with handheld assist) ACTIVITY TOLERANCE: Endurance: Does not limit participation in activity Outcome Measures: [facility] Inpatient Short Form: Putting on and taking off regular lower body clothing?: None Putting on and taking off regular upper body clothing?: None Taking care of personal grooming such as brushing teeth?: None Bathing (including washing, rinsing, drying)?: A Little Toileting, which includes using toilet, bedpan, or urinal?: None Eating meals?: None Daily Activities Raw Score (max 24): 23 Daily Activities Standardized Score: 51.12 Interpretation: Based on scoring guidelines using the raw score value: Those going to home had an average score at or above 18 Those going to facility had an average score at or below 17 Clinicians answer the [facility] Inpatient Short Form based on observed patient activity and/or clinical judgment (ie. patient can be scored without physically performing each activity) Cognition: No observable concerns with cognition at this time Will further assess and monitor as warranted Therapeutic Interventions: ACTIVITIES OF DAILY LIVING: LOWER BODY DRESSING - Assist Level: Supervision/Set-up - Patient Location: Edge of bed - LB Dressing Item: socks, shoes, pants, underwear - Therapist Delivery: assessed, instructed, educated - Assist/Cues: verbal, tactile, and visual for technique, sequencing, don/doff steps TOILETING - Assist Level: Supervision/Set-up - Patient Location: Toilet - Activity: clothing management - Therapist Delivery: assessed, instructed - Assist/Cues: verbal for safety FUNCTIONAL TRANSFERS: SIT to STAND - Assist Level: Supervision/Set-up - Equipment: front wheeled walker and gait belt - Surface: Bed, Chair, Toilet - Therapist Delivery: assessed, instructed, educated - Assist/Cues: verbal, tactile, and visual for technique, sequencing, proper hand placement STAND to SIT - Assist Level: Supervision/Set-up - Equipment: front wheeled walker and gait belt - Surface: Bed, Chair, Toilet - Therapist Delivery: assessed, instructed, educated - Assist/Cues: verbal, tactile, and visual for technique, sequencing, proper hand placement FUNCTIONAL MOBILITY: - Assist Level: Supervision/Set-up - Distance/Time: 100 m - Device: front wheeled walker and gait belt - Therapist Delivery: assessed, instructed, educated Education/Training Provided: Provided education on role of occupational therapy in the acute setting. Collaborated with patient and/or family on goals and plan of care. Sternal Precautions: - Patient educated on sternal precautions, signs and symptoms of activity intolerance and safety recommendations during functional activities as it relates to surgery. Educated patient that pushing, pulling and lifting are permitted as long as it is not painful and that their elbows are maintained c lose to the body. They can do gentle range of motion with upper extremities as long as there is no pain. Instructions given that they can use their arms to care for themselves including such things as yadira-hygiene, brushing teeth, getting dressed and taking a shower. LB Dressing: - Patient instructed on dressing compensatory strategies and aids to assist with don/doff process. Emphasized don/doff strategies including figure four technique. Recommended adaptive equipment: None. Toileting - Patient instructed on accurate positioning and modifications for toileting skills with hygiene care and clothing management. Education and recommendations provided on options including toilet hygiene aid and/or toilet seat modifications. Activity Recommendations During Hospitalization: Patient educated on importance of activity and mobility to improve pulmonary function/hygiene, activity tolerance, strength, and overall well-being while in the hospital setting. - Eat ALL meals in chair - Active engagement in daily self-care routine (oral cares, face washing, etc.) - Active engagement in leisure tasks as appropriate/safe (reading, music, games/cards, etc.){ - Maintain typical day/night routine and incorporate sleep hygiene strategies - Ambulate/transfer into chair 3-5x/day Patient was left in bedside chair at end of session with call light in reach, all needs met and questions answered. Assessment Discharge Therapy Needs - OT: No further skilled therapy Skilled therapy can include occupational therapy provided in home health, outpatient or post-acute facility. The location of these services is determined by patient's care team in partnership with patient/family. Barriers to Discharge Home: Fall risk Level of Care Needed - OT: Assistance with toilet/shower transfers, Assistance with showering/bathing, Assistance with housekeeping, Assistance with shopping, Assistance with transportation, Physicalassistance needed, Assistance with toileting Clinical Impression: Currently, patient presents with impairments including pain, decreased strength, and limited endurance resulting in functional deficits including impaired functional mobility and decreased independence with self care tasks. Ms. Zamarripa is a pleasant 73-year-old female agreeable to occupational therapy evaluation and treatment on this date. Patient was a reliable historian as they was able to provide pertinent information regarding previous level of function, home setup and discharge plan. Following evaluation patient demonstrated great tolerance for treatment session with little assist from therapist throughout. Patient completes total lower body dressing with supervision following Education. Patient completes all transfers including toilet transfers supervision. And patient tolerated functionally ambulation without rest break very well. Improvement in all skills listed above may help patient become more functionally independent upon discharge. Currently patient is progressing quite well towards therapy goals and improving independence however would continue to benefit from ongoing occupational therapy in the inpatient acute care setting. The patient will benefit from ongoing occupational therapy services while hospitalized in order to improve engagement and independence in meaningful occupations. Plan OT Plan Comments: Plan: Total body dressing, grooming while standing at sink, toileting, DME Education, activity tolerance Functional Goals: OT Goal #1: Patient will demonstrate total body dressing following sternal precautions with modified independence. OT Goal #1 Status: Progressing OT Goal #2: Patient will demonstrate grooming/hygiene tasks standing at sink with set up assistanceto improve functional independence at home. OT Goal #2 Status: Ongoing OT Goal #3: Patient will demonstrate toileting process with modified independence to improve functional independence at home. OT Goal #3 Status: Progressing OT Goal #4: Patient will demonstrate understanding of home safety strategies, fall prevention techniques, and equipment recommendations. OT Goal #4 Status: Ongoing Progress: Progressing toward goals Rehab potential: Ms. Zamarripa has good potential to achieve established occupational therapy goals within the time frame outlined below. OT Frequency: OT Amount: 1 visit per day OT Frequency: 5 times per week OT Inpatient Duration : Until goals are met or hospital discharge Requires Inpatient OT Follow-Up: Yes OT - Next Inpatient Appointment: 08/10/23 Plan: Continue with current plan Treatment interventions may include: Treatment Interventions: Therapeutic exercise, Therapeutic functional activity, Self-care/home management Occupational Therapy Attestation Statement: Patient agrees with the plan of care and goals. Billing: Tiered OT Evaluation Codes: Personal Factors: Needs assistive device, History of falls, Age Occupational Profile and History review: Expanded Performance Deficits: 3 - 5 performance deficits Evaluation Complexity: Moderate Time Spent with Patient Evaluations OT Eval - Mod Complexity: 10 min Therapeutic Interventions Home Management Training (min): 22 min Time Tracking Total Timed Units (min): 22 min Total Treatment Time (min): 32 min Kennedy Nielsen O.T., O.T.D. * Jaguar Cortez M.D. - 08/07/2023 10:37 PM CDT #1 Atrial Fibrillation Longstanding Persistent (HCC) #2 Cardiomegaly #3 Anemia #4 Anemia Of Chronic Disease #5 Regurgitation Mitral #6 Alcohol Mild Use Disorder (Abuse) Uncomplicated #7 Chronic Systolic (Congestive) Heart Failure (HCC) #8 Repair Mitral Valve Status Post #9 Anemia Posthemorrhagic Acute (Blood Loss Anemia) #10 Hypokalemia #11 Leukocytosis I was called to the bedside by our excellent group of SEARCH ADVERTISING STRATEGIST/PA (Hilaria) to assist with the ICU management of Mrs. Zamarripa around 6:30 p.m. Recognizing that the patient had significant increase in mediastinal chest tube output, clotted right sided pleural chest tube, and worsening R- sided pleural effusion on repeat CXR, I called my colleague Richard Aguayo and discussed the case due to concerns for r-sided hemothorax. He ultimately decided to take the patient to the operating room for Right VATS, evacuation of retained hemothorax, washout and control of chest wall bleeding. Around 1.5 L of clotted blood was evacuated. An extra chest tube was added and the patient was transferred hemodynamically stable to the ICU. Critical care time 40 minutes. This is time spent at this critically ill patient's bedside activelyinvolved in patient care as well as the coordination of care and discussions with the patient's family. This does not include any procedural time which has been billed separately. * Bon Manuel Jr., WATER FILTERER, C.N.P., M.S.N. - 08/07/2023 2:54 PM CDT SUBJECTIVE Brief Patient Summary Gladys Zamarripa is a 73 y.o. female admitted on 08/07/2023 for robotic mitral valve repair, cleft closure and valvuloplasty with Dr. Aguayo. Comorbidities include: Persistent AFib status post 45 cardioversions and 2 transcatheter ablation (2018, 2020), cardiomyopathy with congestive heart failure EF 25% (current EF 61%), mitral valve prolapse with regurgitation, coronary artery disease (lad and RCA) hypertension, hyperlipidemia, anemia,gout, spinal stenosis, vitamin-D deficiency, osteoarthritis, squamous cell carcinoma, alcohol use (10 glasses of wine per week) depression Hospital Course ICU: Following surgery on 08/06, Gladys Zamarripa had uneventful ICU stay. For full details of the surgical procedure and intraoperative events, please refer to the formally dictated operative report as well as the electronic anesthetic record. She was an easy bag-mask ventilation and easy intubation. She had no problems with anesthesia and her After obtaining appropriate hemostasis the patient was closed, skin was closed, pain blocks were performed, and the patient was transferred to the Intensive Care Unit for further management. She was noted to be oozy from the OR. She landed with 100 mL in her Chest tubes, She quickly put out 200 mL in the first 30 minutes. With striping the CT's this has decreased. She was given 1 PLT in the OR,1 PLT on landing, [address] Aguayo, and 1 unit of PRBC's Post Bypass ECHO: Good per verbal report Bypass/Cross Clamp Times: 15 [id number] minutes Epicardial Pacer Leads: None Chest Tubes: 1 mediastinal 1 right pleural chest tube were together Blood Products: 1 PLT Estimated Blood Loss: 500 cc Intraop Fluids: crystalloid 2.5, UOP 700 mL, cell saver 200 mL, She arrived to the ICU [facility] Post Op Respiratory RTP: extubated and on room air Her hemodynamic profile is: BP 145/89 Pulse 105 Temp 37.7 ??C (Oral) Resp 16 Ht 159.4 cm Wt 60.8 kg SpO2 100% BMI 23.93 kg/m?? and landing CI/SVRI unknown no [place]-Mikhail catheter on the following infusions: Clevedipine 2 mg/hr and TXA 2 mg/kg/hr Her sternal incision dressing was clean, dry, and intact. Chest tubes were placed to -20 cm wall suction, having sanguineous drainage. OBJECTIVE I have been asked to aid in the care of this patient by the cardiac surgical team. I have examined the patient. I have reviewed the pertinent vital signs, imaging, and laboratory data. I have discussed the plan of care with the multidisciplinary critical care team. Physical Exam General: Extubated Neuro: RASS -1, Follows commands, and Moves 4 extremities HEENT: Head is normocephalic and atraumatic. Sclerae clear. Pupils PERRL. Oral mucosa pink and moist. No oropharyngeal lesions or exudate. Skin:Skin color congruent with race, warm and dry. Wound vac covers sternal incision Chest tubes inplace. Heart: Is in in sinus rhythm on bedside monitor. Epicardial pacing wires: CVS Epicardial pacing wires: None. S1, S2 regular rate and rhythm without extra sounds, murmurs, rubs or gallops. Capillary refill 2 seconds. Lungs: Respirations regular and easy. Clear and equal to auscultation. Diminished bilateral bases. Abdomen: Soft, non-distended, hypoactive bowel sounds. Extremities: No cyanosis noted, 2+ pulses, no peripheral edema. Diagnostics I have reviewed the current vital sign data, imaging, and labs. #1 Atrial Fibrillation Longstanding Persistent (HCC) #2 Cardiomegaly #3 Anemia #4 Anemia Of Chronic Disease #5 Regurgitation Mitral #6 Alcohol Mild Use Disorder (Abuse) Uncomplicated #7 Chronic Systolic (Congestive) Heart Failure (HCC) Assessment: In summary Gladys Zamarripa is admitted for intensive care needs following cardiac surgery and is a suitable rapid recovery candidate. The patient was extubated in the OR. We will continueto monitor hemodynamics, bleeding or coagulopathy, and oxygenation and ventilation with reasonable s upport. We will encourage incentive spirometry and mobilize out of bed to further facilitate a rapid recovery. The details of remaining care are as below. Pain: Analgesia per multi-modal cardiac surgery pathway including scheduled Tylenol, PRN oxycodone,and PRN Dilaudid. Neuro: Patient was extubated in the OR. We will continue to monitor Cardiovascular: Hemodynamically stable Lactate pending. Plan to titrate infusions for a CI of >2.5 and SBP of >100 <130 Pulmonary: Landing ABG and CXR pending. Plan to wean oxygen support for an SpO2 of greater than 90%, and start aggressive pulmonary hygiene Obtain CXR to ensure adequate positioning of endotracheal tube, drains, and lines, Obtain ABG and make adjustments to match metabolic needs, Aggressive pulmonary hygiene post- op,Cough and deep breathe, Incentive spirometry every 1-2 hours while awake, PEP therapy, Wean oxygen to maintain sat's >90%, Bronchodilator therapy prn, Obtain AM CXR to assess forpneumothorax or pleural effusions Renal: Admission Weight: 60.8 kg , Will give fluid resuscitation as needed. Landing Creatinine and Electrolytes pending. Will replace K, Na, Ca,and Mag as needed. Goal of high-normal calcium.Monitor urine output with Florence catheter for strict I&Os. Will monitor function and sCr and Will follow up on Nephro check 10 hours post admission to ICU for BRIANNA monitoring. GI/Nutr: NPO for now. we will start postoperative bowel regimen. Insulin as needed to maintain postop glu <180. Hematology: No evidence of ongoing coagulopathy in OR. Landing Hbg, Plt, WBC, and Coags are pending. Will monitor laboratory trends, surgical sites, and chest tube outputs for persistent bleeding. and need for additional blood products and/or hemostatic agents. Keep Hgb > 6.9. DVT prophylaxis continues with SCDs. Plan for No anticoagulation per [facility] Surgeon see previous note ID/Skin: Continue post operative antibiotics per protocol Wound vac covers sternal incision, removePOD 5, or before dismissal testing/Remove Robotic incisional dressings POD 2 Code Status: Full Code T/L/Margin Code: VMI; Critical Care total time 44 minutes; I have personally spent this time managing and coordinating care for this critically ill patient. This does not include any procedural time,which has been billed separately. All Lines, Tubes, Florence Catheter, and Drains are to remain. Removal will be discussed with the primary surgeon during rounds tomorrow. Dispo:She is likely transferring to the PCU tomorrow. With patient bleeding, I directly examined/reviewed the plan of care of this patient with the executive talent acquisition consultant surgeon, Dr. Aguayo. Surgical Fellow at bedside, and CCS Dr. Nikunj Mera documented in this encounter Nursing Notes * Lakesha Vance R.N. - 08/11/2023 2:16 PM CDT Shift Goals: Clinical Goals for the Shift: Discharge Identify possible barriers to meeting goals/advancing plan of care: none End of Shift Summary: Patient remain hemodynamically stable. VSS. Pain has been controlled with Tylenol and Oxycodone. She continued to mobilized in her room and in the hallways. She continued to do pulmonary hygiene by using the incentive spirometer. Education was done and patient was able to teach back. She was also able to teach back wound care while she was in the shower. She stayed alert oriented x 3. She is going home to self care. Electronically signed by: Lakesha Vance R.N. 08/11/23 2:19 PM CDT * Nathanael Quezada, CHomeroR.THomero, L.R.T. - 08/07/2023 5:44 PM CDT Patient is a 73 y.o. female admitted on 08/07/2023 Alert Information: Shift Summary: Patient arrived to unit this afternoon post procedure. RT was able to complete respiratory assessment with patient. No concerns at the moment. Patient currently remains on 1 L Nasal Cannula saturating in the mid 90's. RT will continue to monitor and assess as needed. Plan of Care: Continue to encourage deep breathing and coughing exercises. Assess daily in ICU. Emergency anesthesia bag & mask bedside. Will continue to follow and assist as needed. Principal Problem Regurgitation Mitral Oxygen Therapy $Delivery Method: Nasal cannula ETT Double lumen left (Active) Placement Date/Time: 08/07/23 (c) 0830 Mask Ventilation: Easy mask Technique: Direct laryngoscopy, intubation ETT Type: Double lumen left Tube Size: 35 Fr Cuffed: Yes Blade Size: Pandya 2 Location: Oral Airway secured at (Initial measurement)... Arterial Line 08/07/23 Left Radial (Active) Placement Date/Time: 08/07/23 (c) 0840 Procedural Pause Completed: Yes Catheter Time Out Checklist Completed: Yes Hand Hygiene Performed Prior to Insertion: Yes Site Prep: Chlorhexidine (Preferred) Sterile Barriers Used : Cap;Gloves;Gown;Large d... Social History Tobacco Use Smoking Status Former Packs/day: 0.00 Years: 7.00 Additional pack years: 0.00 Total pack years: 0.00 Types: Cigarettes Start date: 10/03/1966 Quit date: 03/05/1974 Years since quittin.4 Smokeless Tobacco Never Recent Labs 08/07/23 1407 PO2 ART 69 L PCO2 ART 41 PH ART 7.38 Electronically signed by: Nathanael Quezada C.R.T., L.R.T. 08/07/23 5:45 PM CDT documented in this encounter OR Notes * Op Note - Richard Aguayo M.D. - 08/07/2023 8:36 PM CDT Pre-op Diagnosis Anemia Posthemorrhagic Acute (Blood Loss Anemia) Post-op Diagnosis Anemia Posthemorrhagic Acute (Blood Loss Anemia) Procedure Right-sided thoracoscopy (VATS) exploration. Removal of right pleural space clot. Surgeon Richard Aguayo MD Sox Analyst [facility] Findings As expected. Complications None Operative Note Narrative The patient was brought to the operating room and placed in supine position. Following induction ofgeneral endotracheal anesthesia with a double-lumen endotracheal tube, the chest was prepped and draped in sterile routine fashion. A procedural pause was conducted to identify the correct patient, procedure, administration of preoperative antibiotic, and all other necessary items. The prior mini thoracotomy incision in the 4th intercostal space was reopened. The right lung was deflated and an extra-small Gama wound retractor was placed. We removed the pleural channel drain. We spent about 30 minutes removing a moderate amount of right pleural space clot material. Using a 5mm video scope through the mini thoracotomy space we examined each of the robotic port sites. Therewas no evidence of obvious oozing apart from some minor oozing from the right arm port that was treated with electrocautery. There was intrapleural hematoma along the posterolateral ribs 5-8 that mayhave corresponded to oozing following nerve block. We irrigated the pleural space with 1 L of saline solution and aspirated dry. There was no blood product inside the pericardium or around the heart.We placed a new 32 Fr channel drain and a new 32 Fr straight chest tube into the right pleural space. We were satisfied with the hemostasis. The minithoracotomy incision was then closed in multiple layers of absorbable Vicryl suture. All sponge needle counts were correct prior to closure. The patient was then extubated in the operating room prior to transfer back to the ICU in stable condition. Richard Aguayo M.D. * Brief Op Note - Tristian Herbert M.B., BHomeroChHomero, B.A.O. - 08/07/2023 8:36 PM CDT BRIEF OP NOTE Procedure(s) (LRB): THORACOSCOPY - WASHOUT POSSIBLE THORACOTOMY, CONTROL OF BLEEDING (Right) Surgeon(s) and Role: * Richard Aguayo M.D. - Primary * Tristian Herbert M.B., B.Vijaya., B.A.O. - Rolling Chair Pusher Anesthesia Type General Pre-operative Diagnosis Anemia Posthemorrhagic Acute (Blood Loss Anemia) Post-operative Diagnosis Anemia Posthemorrhagic Acute (Blood Loss Anemia) Surgical Procedure: Right VATS, evacuation of retained hemothorax, washout, control of chest wall bleeding Chest Tubes: Right pleural x 2 Right mediastinal Pacing wires: None Estimated Blood Loss 100 mL Specimens None Implants None Patient Condition:ICU: Stable Asad Herman, B.Vijaya., B.A.O.. * Op Note - Richard Aguayo M.D. - 08/07/2023 9:48 AM CDT Pre-op Diagnosis Regurgitation Mitral Severe mitral valve regurgitation. Mild LV dilatation. History of atrial fibrillation status post ablation in 2020 Post-op Diagnosis Regurgitation Mitral Same as preop Procedure 1. Robot-assisted mitral valve repair. 2. Folding plasty of the lateral aspect of the middle (P2) scallop over to the medial aspect of the(P1) scallop effectively closing a functional cleft. 3. Posterior band annuloplasty with 32 mm SimuPlus Medtronic band. 4. Establishment of temporary hypothermic extracorporeal circulation with Terumo oxygenator. 5. Cold blood [place] cardioplegia 6. Percutaneous cannulation of right internal jugular vein. 7. Direct cannulation of right common femoral artery and vein 8. Intraoperative transesophageal echocardiography. 9. Use of endo-balloon for aortic occlusion, delivery of cardioplegia, and root venting. Anesthesia General Specimen None Surgeons Richard Aguayo MD - Primary Suman Oh MD - Co-Primary Sox Analyst Tristian Herbert [facility] Rolling Chair Pusher A accounting manager assistant controller actively participated and was necessary for one or more of the following: opening, exposure and visualization during the case, maintaining hemostasis, wound closure resulting in itssafe and expeditious completion. Findings The patient has severe mitral valve regurgitation related to a large functional cleft between the P1 and P2 scallops. We repaired the valve with cleft closure using running 4-0 Prolene suture effectively reapproximated the lateral aspect of the P2 scallop over to the medial aspect of the P1 scallopin 2 running layers. A posterior annuloplasty was accomplished with a 32 mm SimuPlus Medtronic band. The immediate post bypass transesophageal echocardiogram showed an excellent result with trivial residual mitral valve regurgitation with an inflow diastolic gradient of 3 mmHg. There was no systolic anterior motion of the mitral apparatus. There was good biventricular systolic function. There was no evidence of circumflex coronary artery compromise. Crossclamp time 49 minutes. Cardiopulmonary bypass time 80 minutes. Complications None Operative Note Narrative Dr. Oh and I were co-primary surgeons on the procedure. I performed the working thoracotomy and preparation for robot docking while he simultaneously worked on femoral cannulation. During the repair of the mitral valve, I was the robot console surgeon and he was the bedside surgeon. As the robot console surgeon, I controlled the robot arms for placement/positioning of the endoballoon, left atriotomy incision, repair of the mitral valve and closure of the left atriotomy. As the bedside surgeon, he was responsible for the control of the endoballoon for aortic occlusion and delivery of cardioplegia at the bedside, and management of the bedside aspects of assisting the robotic arms in valve repair and closure of the left atriotomy. The portions of the procedure performed by the bedside surgeon can not be done by the robot console surgeon. We worked together on decannulation and hemostasis. Under general endotracheal anesthesia, monitoring lines were placed and the patient was prepped anddraped in supine position. A pause was performed to identify the correct patient, procedure, and administration of antibiotic. The right femoral artery and vein were exposed through a small 3 cm groin incision. A 4 cm right lateral thoracotomy was performed entering the 4th intercostal space. The pericardium was opened longitudinally 4 cm anterior to the phrenic nerve. Of note, the phrenic nervewas identified and preserved during the course of the procedure. Pericardial retraction sutures were placed and brought out through a lateral stab wound. The cardioplegia cannula/tack vent was placed lateral to the mammary vessels in the 3rd intercostal space. The patient was systemically heparinized. A 16 Cymraes cannula was inserted in the right superior vena cava through the previously placed catheter in the right internal jugular vein. This was done under echo guidance and Seldinger technique. A 17 Cymraes cannula was then placed in the right common femoral artery and a 25 Cymraes venous cannula placed in the right common femoral vein also with the aid of echocardiogram and Seldinger technique. The ports were then placed for the robot in the 2nd and 6 intercostal spaces laterally for theleft and right arms as well as the 4th intercostal space medially for the left atrial retractor. The camera was then positioned through the thoracotomy working space. The robot was docked. The pleural space was flooded with carbon dioxide. With adequate ACT, cardiopulmonary bypass commenced at 2.4 liters/minute per meter squared for a duration of 80 minutes. The patient was then cooled to 34 degree centigrade. A pledgeted 3 0 Prolene horizontal mattress suture was then placed anteriorly on the ascending aorta and the needle tack was positioned and secured with the suture. The cross-clamp was brought in through the 3rd intercostal space at the level of the axilla. The aorta was crossclamped in the mid ascending region and 1 L of hypothermic [place] cardioplegia was administered antegrade in the root. We achieved good electromechanical arrest. The left atrium was then sharply opened along Sondergaard's groove and the left atrial retractor positioned. The mitral valve was studied. 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 We effectively closed this functional cleft by reapproximating the lateral aspect of the P2 scallop over to the medial aspect of the P1 scallop in 2 running layers of 4-0 Prolene. A posterior mitral annuloplasty was then performed with a 32 mm SimuPlus Medtronic band. This was sutured from trigone to trigone along the posterior annulus with 2 0 Prolene sutures secured with Cor knot technology. The valve was tested and found to be competent. The left atriotomy was then closed with running 3 0 Prolene. Strong suction was placed on the needle tack vent and the cross-clamp was released after a total of 49 minutes. The patient regained a spontaneous sinus rhythm. The patient had been rewarmed to 37?? centigrade. The left lung was re-inflated. We easily from cardiopulmonary bypass. Transes ophageal echocardiogram revealed trivial residual mitral regurgitation with a gradient of mmHg witha heart rate of beats per minute. There were no regional wall motion abnormalities and the lateral wall (circumflex territory) had good function. There was no air in the heart. We then recommenced cardiopulmonary bypass to remove the tack vent and secure the site with pledgeted 3 0 Prolene suture. We also placed interrupted silk sutures to reapproximate the pericardium. We again from cardiopulmonary bypass and removed the venous cannulas from the right internal jugular vein as well asa right common femoral vein. We administered half the dose of protamine. Additional blood was transfused from the pump. We then removed the cannula from the right common femoral artery and administered the remaining half of protamine without complication. The femoral vessels were repaired with 5-0 Prolene suture. The robot was successfully undocked and all ports removed. We spent an additional 20-30 minutes securing hemostasis at the port sites with the aid of the thoracoscope and electro cautery. A 20 Cymraes channel drain was placed through the left atrial retractor port site and into the pericardial space through the oblique sinus. We distally placed a 36 Cymraes channel drain through the right arm port site in the 6th intercostal space laterally for pleural space drainage. With hemostasis confirmed we performed a intercostal block with 0.25% Bupiviciane at the 3rd, 4th and 5th intercostal spaces. The thoracotomy was then closed in layers with Vicryl suture followed by Monocryl for the skin. The groin was also closed in layers with Vicryl followed by Monocryl for the subcutaneous. Wound type 1. Richard Aguayo M.D. * Brief Op Note - Tristian Herbert M.B., B., B.A.O. 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 - Primary * Suman Oh M.D. - Co-Primary * Tristian Herbert M.B., B., B.A.O. - Rolling Chair Pusher * Reggie Geiger P.A.-C. - Other Digital Operations Analyst Anesthesia Type General Pre-operative Diagnosis Regurgitation Mitral Post-operative Diagnosis Regurgitation Mitral Surgical Procedure: Robotic mitral valve repair, cleft closure and ring annuloplasty Chest Tubes: Pericardial and pleural Aj tubes Pacing wires: None Post-op echo findings: Trace MR. No regional wall changes. Normal EF Pump Time: 01:20 Cross Clamp Time: 00:49 Specimens None Implants Implant Name LRB Site No. Used Donor Services Coordinator Mfr No. Serial No. Status Type CLP HRZN TI 6 CLP RUBEN - [id number] N/A 1 [employer] [id number] Implanted Hardware e.g. pins/screws/rods DEV CRK SUT BLUNT CRV - [id number] N/A Mitral Valve 1 [employer] [id number] Implanted Hardware e.g. pins/screws/rods DEV CRK SUT BLUNT CRV - [id number] N/A Mitral Valve 1 [employer] [id number] Implanted Hardware e.g. pins/screws/rods DEV CRK SUT BLUNT CRV - [id number] N/A Mitral Valve 1 [employer] [id number] Implanted Hardware e.g. pins/screws/rods SUT FAST CRK QCK LD SUT FAST - [id number] N/A Mitral Valve 1 [employer] [id number] Implanted Hardware e.g. pins/screws/rods RNCarmen JORDAN SMP 32 - [id number] - [id number] N/A Mitral Valve 1 Medtronic [id number] Implanted Cardiac Valve Prosthesis Patient Condition:ICU: Stable Asad Herman, BAlthea, B.A.O. * Op Note - Suman Oh M.D. 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 Severe mitral regurgitation Left ventricular dilatation. 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 Severe mitral regurgitation Left ventricular dilatation. Rolling Chair Pusher A accounting manager assistant controller actively participated and was necessary for one or more of the following: opening, exposure and visualization during the case, maintaining hemostasis, wound closure resulting in itssafe and expeditious completion. Findings The mitral valve was dysmorphic with the large cleft in the mid portion of the posterior leaflet. It appeared that this was a vestigial middle scallop of the posterior leaflet (P2) at the cleft site,with large lateral (P1) and medial (P3) scallops of the posterior leaflet. The postoperative echo showed trivial or no mitral regurgitation with a mean gradient of 2 mm Hg., with no regional wall motion abnormalities. Complications None Operative Note Narrative Minimally invasive, robotic assisted mitral valve repair. Closure of large cleft in midportion of posterior leaflet of mitral valve. Posterior mitral annuloplasty with 32 mm Medtronic SimuPlus partial ring. Establishment of temporary hypothermic extracorporeal circulation with Terumo oxygenator. Cold blood Del Nido cardioplegia. Percutaneous cannulation of right internal jugular vein. Direct cannulation of right common femoral artery and vein. Intraoperative transesophageal echocardiography. Procedure: Dr. Aguayo and I were co-primary surgeons on the procedure. He performed the working thoracotomy andpreparation for robot docking while I worked on femoral cannulation. During the mitral valve repair, he was the robot console surgeon and I was the bedside surgeon. We worked together on decannulation and hemostasis. After induction of general endotracheal anesthesia, the patient was prepped and draped in the supine position, with the right chest elevated and the right arm protected with padding, in a sterile fashion. A pause was made to assure appropriate patient and procedure. The right femoral artery and vein were exposed through a short groin incision. A small, 4 cm, right lateral thoracotomy was performed entering the 4th intercostal space. A retraction suture was placed on the diaphragm posteriorly and medially and brought out through a anterior stab wound. Excess pericardial fat was excised. The pericardium was opened longitudinally, 4 cm anterior to the phrenic nerve which was identified and protected through the procedure. Pericardial retraction sutures were placed and brought out through a lateral stab wound. A cardioplegia cannula and tack vent was brought out through a stab wound in the 3rd intercostal space medially. Heparin was administered intravenously. The catheter in the right internal jugular vein placed by anesthesia was replaced with a 16 Cymraes venous cannula using a Seldinger technique. Echo guidance was used to assure positioning of the cannulas and the guidewires. A 17French cannula was placed in the right femoral artery, and a 25 Cymraes venous cannula was placed inthe right femoral vein and positioned into the superior vena cava. Ports were placed for the robot,through the 2nd and 6th intercostal spaces laterally for the left and right arms, respectively, andin the 4th intercostal space medially for the atrial retractor. The camera was positioned through the working thoracotomy. The robot was docked. The pleural space was flooded with carbon dioxide throughout the procedure. Cardiopulmonary bypass was commenced at 2.4 liters/minute per meter squared for 80 min and the patient was cooled to 35?? centigrade. A 3-0 Prolene pledgeted mattress suture was placed in the anterior aspect of the proximal ascending aorta and the needle tack vent was positioned within the suture and secured with the suture. The cross-clamp was brought in through the 3rd inter costal space at the axilla. The aorta was cross-clamped and 1 L of cold blood Del Nido cardioplegiawas administered into the aortic root. There was good electromechanical arrest. The left atrium wasopened parallel to the interatrial groove and the retractor positioned. The mitral valve was as described above. The prominent cleft in the midportion of the posterior leaflet was closed with 2 layers of running 4-0 Prolene. A posterior mitral annuloplasty was performed with a 32 mm Medtronic SimuPlus partial ring. This was sutured to the posterior annulus, from fibrous trigone to fibrous trigone, with interrupted 2-0 Prolene sutures which were secured with the CorKnot device. The valve was tested and was competent. The left atriotomy was closed with running 3-0 Prolene allowing the heart to fill with blood as the suture line was completed. Strong suction was placed on the needle tack vent in the ascending aorta and the cross-clamp was removed after 49 min. A spontaneous sinus rhythm developed. The patient was warmed to 37?? centigrade. When the heart was beating well the left lung was v entilated and de-airing was confirmed by intraoperative transesophageal echocardiography. Cardiopulmonary bypass was discontinued with satisfactory hemodynamics. Transesophageal echocardiographic evaluation demonstrated trivial or no mitral regurgitation with a mean gradient of 2 mm Hg, and no regional wall motion abnormalities. Cardiopulmonary bypass was recommenced. The needle tack vent was removed from the ascending aorta and the site secured with the pledgeted 3-0 Prolene mattress suture, as well as with a second 3-0 Prolene pledgeted mattress suture. The left lung was ventilated, cardiopulmonary bypass was discontinued. The cannulas were removed from the right internal jugular vein andthe right common femoral vein. Half the dose of the protamine was administered. Additional blood was transfused from the pump. The cannula was removed from the right common femoral artery. The femoral artery and veins were repaired with 5-0 Prolene sutures. The remainder of the protamine was adminis tered. The robot was undocked and the ports removed from the right chest. Hemostasis was carefully achieved at each of the port sites with the aid of thoracoscope and cautery. A 20 Cymraes channel drain was placed through the atrial retractor port site in the 4th intercostal space anteriorly and posi tioned in the pericardium into the oblique sinus. The pericardium was closed with interrupted silk sutures. A 36 Cymraes channel drain was placed through the right arm port site in the 6th intercostalspace laterally. Hemostasis was assured in the thoracotomy wound. A intercostal block was performedat the 4th and 5th intercostal spaces with bupivacaine. The thoracotomy was closed in layers with Vicryl. The skin was closed with Monocryl. The groin wound was closed in layers with Vicryl and the skin with Monocryl. The port sites were closed with Monocryl. Type 1 Suman Oh M.D. documented in this encounter Miscellaneous Notes * Documentation Clarification - Alvaro Persaud P.A.-C. - 08/11/2023 3:36 PM CDT PROVIDER RESPONSE TEXT: To clarify, the appropriate diagnosis supported by the clinical indicators: Clinically unable to determine (explain): unknown what exacerbated issue <LCI> QUERY TEXT: DOCUMENTATION CLARIFICATION REQUEST Please clarify/specify the appropriate diagnosis supported in the clinical indicators below. Intrapleural hematoma was exacerbated by heparin Other (explain) Clinically unable to determine (explain) Clinical Indicators/Risk Factors/Treatment: 73 yo female admitted for robotic mitral valve repair, cleft closure and valvuloplasty OP Note 08/06, 0830amAlthea: Dr. Aguayo and I were co-primary surgeons on the procedure. He performed the working thoracotomy andpreparation for robot docking while I worked on femoral cannulation. During the mitral valve repair, he was the robot console surgeon and I was the bedside surgeon. We worked together on decannulation and hemostasis. ... A cardioplegia cannula and tack vent was brought out through a stab wound in the 3rd intercostal space medially. Heparin was administered intravenously. ... The cannulas were removed from the right internal jugular vein and the right common femoral vein. Half the dose of the protamine was administered. Additional blood was transfused from the pump. The cannula was removed from the right common femoral artery. The femoral artery and veins were repaired with 5-0 Prolene sutures. The remainder of the protamine was administered. OP Note 08/06, 936pmOlivier: The prior mini thoracotomy incision in the 4th intercostal space was reopened. The right lung was deflated and an extra-small Gama wound retractor was placed. We removed the pleural channel drain. We spent about 30 minutes removing a moderate amount of right pleural space clot material. ...There was intrapleural hematoma along the posterolateral ribs 5-8 that may have corresponded to oozing following nerve block. INR lab values 08/02 pre-op: 10.1 08/06 @ 1203 (post -op) 16.6 08/06 @ 1406 13.1 08/07 @ 0405 13.1 Please contact me if you have questions. Thank you, STERLING Shaffer Clinical Documentation Braid Folder Query created by: STERLING Shaffer 08/28/2023 08:52 AM EDT </LCI> * Hospital Course - Alvaro Persaud P.A.-C. - 08/10/2023 3:28 AM CDT Gladys Zamarripa is a 73 y.o. female admitted on 08/07/2023 for robotic mitral valve repair, cleft closure and valvuloplasty with Dr. Aguayo. Comorbidities include: Persistent AFib status post 45 [...] made ready to discharge home on 08/11/23. SURGICAL PROCEDURE(S) Dismissal Vitals: Admission Weight: 60.8 kg Blood pressure (!) 156/103, pulse 88, temperature 36.8 ??C, temperature source Oral, resp. rate 19, height 159.4 cm, weight 65.8 kg, SpO2 96%. PHYSICAL EXAMINATION: General: Alert and oriented. No apparent distress. Heart: Regular rate and rhythm, no murmurs or rubs noted. Lungs: Clear to auscultation bilaterally. Abdomen: Soft, nontender. Extremities: Distal pulses intact. 1+ edema noted bilaterally. Incision: Wound approximated, clean, dry, and intact. No erythema or other clinical signs of infection. Sternum stable Echocardiogram 08/11/23 Hemodynamics Heart Rate: 81 BPM Blood Pressure: 152 / 99 mmHg ECG: Sinus rhythm, 1st degree A-V block Final Impressions 1. Status post mitral valve repair. Robotically assisted mitral valve annuloplasty and mitral valvuloplasty (suture closure of posterior leaflet cleft) 07-AUG-2023. 2. Mitral valve diastolic mean Doppler gradient 3 mmHg (heart rate 82 BPM). Mild residual mitral valve regurgitation. 3. Normal left ventricular chamber size. Calculated ejection fraction 62%. 4. Abnormal ventricular septal motion - post-operative without other regional wall motion abnormalities. 5. Mild-moderately enlarged right ventricular chamber size with mildly reduced systolic function. 6. Estimated right ventricular systolic pressure 46 mmHg (right atrial pressure of 5 mmHg). 7. Tricuspid annulus dilatation with moderate tricuspid valve regurgitation. 8. Normal inferior vena cava size with normal inspiratory collapse (>50%). 9. No pericardial effusion. Comments Right ventricle is enlarged compared to preoperative imaging. The annulus is dilated, IVC is dilated and relatively non collapsing suggesting that the increase in tricuspid regurgitation is likely functional. documented in this encounter Plan of Treatment Upcoming Encounters Date Type Department Care Team (Latest Contact Info) Description 05/29/2024 12:15 PM FINE GRADE OPERATOR Clinical Communication Virtual Review in [place], [place] [address] [place] [phone] 05/31/2024 11:00 AM FINE GRADE OPERATOR Appointment Department of Laboratory Medicine and Pathology, [facility], in [place], [place] [address] [place] [address] [phone] Patricia Parker APRN, C.N.P., D.N.P. [address] [place] [address] [phone] 05/31/2024 2:00 PM FINE GRADE OPERATOR Comprehensive Visit Preoperative Evaluation Center in [place], [place] [address] [place] [address] [phone] Arianna Jeffries M.D. [address] [place] [address] [phone] 05/31/2024 2:45 PM FINE GRADE OPERATOR Comprehensive Visit Preoperative Evaluation Center in [place], [place] [address] [place] [address] [phone] Chris Moreno, JOHNSON, C.N.P., M.S. [address] [place] [address] [phone] 06/03/2024 8:15 AM FINE GRADE OPERATOR Hospital Encounter Post Anesthesia Care Unit in [place] [id number] [place] [phone] Tahir Moore M.D. [address] [place] [address] [phone] 06/03/2024 8:15 AM FINE GRADE OPERATOR - 06/03/2024 2:12 PM FINE GRADE OPERATOR Surgery [facility] OR [address] [place] [phone] Tahir Moore M.D. [address] [place] [phone] C1-2 fusion 07/02/2024 11:00 AM FINE GRADE OPERATOR Procedure visit Division of Pain Medicine in [place], [place] [address] [place] [phone] Adam Barlow M.D. [address] [place] [phone] Pending Results Name Type Priority Associated Diagnoses Date /Time Prepare Red Blood Cells, 1 Units Blood Bank STAT 08/03/2023 8:18 AM CDT Prepare Red Blood Cells, 1 Units Blood Bank STAT 08/03/2023 8:18 AM CDT Prepare Platelets : 1 Units Blood Bank STAT 08/08/2023 2:30 AM CDT Prepare Platelets : 1 Units Blood Bank STAT 08/03/2023 8:18 AM CDT Prepare Platelets : 1 Units Blood Bank Routine 08/08/2023 12:14 AM CDT Prepare Fresh Frozen Plasma : 2 Units Blood Bank STAT 08/08/2023 4:30 AM CDT Prepare Red Blood Cells, 1 Units Blood Bank STAT 08/03/2023 8:18 AM CDT Prepare Red Blood Cells, 1 Units Blood Bank STAT 08/03/2023 8:18 AM CDT Prepare Red Blood Cells, 1 Units Blood Bank Routine 08/03/2023 8:18 AM CDT Scheduled Procedures Name Priority Associated Diagnoses Date/Ti me 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 06/03/2024 8:15 AM FINE GRADE OPERATOR Scheduled Referrals Name Type Priority Associated Diagnoses Orde r Schedule External referral cardiac rehab program ([facility]) Outpatient Referral Routine Repair Mitral Valve Status Post Ordered: 08/09/2023 documented as of this encounter Procedures Procedure Name Priority Date/Time Associated Diagnosis Comments DX CHEST AP OR PA AND LATERAL 2 VIEWS RAD - Routine (most inpatients and all outpatients) 08/11/2023 12:22 PM CDT (TTE) 2D ECHO DOPPLER COLOR Routine 08/11/2023 11:54 AM CDT ECG Routine 08/11/2023 10:35 AM CDT CBC WITHOUT DIFFERENTIAL, B Routine 08/11/2023 10:04 AM CDT BASIC METABOLIC PANEL, S/P Routine 08/11/2023 10:04 AM CDT DX CHEST PORTABLE 1 VIEW RAD - Timed (for specific dates/times) 08/10/2023 9:09 AM CDT ADULT OXYGEN THERAPY Routine 08/10/2023 8:00 AM CDT CBC WITHOUT DIFFERENTIAL, B Routine 08/10/2023 7:10 AM CDT BASIC METABOLIC PANEL, S/P Routine 08/10/2023 7:10 AM CDT GLUCOSE POCT, B Routine 08/10/2023 6:34 AM CDT GLUCOSE POCT, B Routine 08/09/2023 10:22 PM CDT ADULT OXYGEN THERAPY Routine 08/09/2023 8:01 PM CDT GLUCOSE POCT, B Routine 08/09/2023 5:33 PM CDT GLUCOSE POCT, B Routine 08/09/2023 4:34 PM CDT GLUCOSE POCT, B Routine 08/09/2023 10:55 AM CDT ECG Routine 08/09/2023 10:29 AM CDT ADULT OXYGEN THERAPY Routine 08/09/2023 8:02 AM CDT CBC WITHOUT DIFFERENTIAL, B Routine 08/09/2023 6:43 AM CDT BASIC METABOLIC PANEL, S/P Routine 08/09/2023 6:43 AM CDT GLUCOSE POCT, B Routine 08/09/2023 6:25 AM CDT GLUCOSE POCT, B Routine 08/08/2023 8:59 PM CDT ADULT OXYGEN THERAPY Routine 08/08/2023 8:00 PM CDT GLUCOSE POCT, B Routine 08/08/2023 4:13 PM CDT CBC WITHOUT DIFFERENTIAL, B STAT 08/08/2023 9:12 AM CDT GLUCOSE POCT, B Routine 08/08/2023 8:30 AM CDT ADULT OXYGEN THERAPY Routine 08/08/2023 8:01 AM CDT TRANSFUSE RED BLOOD CELLS Routine 08/08/2023 6:26 AM CDT TRANSFUSE RED BLOOD CELLS Routine 08/08/2023 4:46 AM CDT DX CHEST PORTABLE WITH AM ROUNDS 1 VIEW RAD - Semiurgent (Fast; most ED patients; some inpatients) 08/08/2023 4:31 AM CDT PREPARE FRESH FROZEN PLASMA STAT 08/08/2023 4:30 AM CDT LACTATE, B Routine 08/08/2023 4:05 AM CDT PATIENT STATUS Routine 08/08/2023 4:05 AM CDT HEPATIC FUNCTION PANEL, S Routine 08/08/2023 4:05 AM CDT ABG W/COOX Routine 08/08/2023 4:05 AM CDT PROTHROMBIN TIME (PT), P Routine 08/08/2023 4:05 AM CDT CBC WITHOUT DIFFERENTIAL, B Routine 08/08/2023 4:05 AM CDT CALCIUM, IONIZED, S/B Routine 08/08/2023 4:05 AM CDT BASIC METABOLIC PANEL, S/P Routine 08/08/2023 4:05 AM CDT GLUCOSE POCT, B Routine 08/08/2023 4:00 AM CDT PREPARE PLATELETS STAT 08/08/2023 2:30 AM CDT PREPARE PLATELETS Routine 08/08/2023 12:14 AM CDT LACTATE, B Routine 08/08/2023 12:10 AM CDT TIMP2/IGFBP7 BRIANNA RISK SCORE, U Routine 08/07/2023 11:56 PM CDT DX CHEST PORTABLE 1 VIEW RAD - Routine (most inpatients and all outpatients) 08/07/2023 11:44 PM CDT GLUCOSE POCT, B Routine 08/07/2023 11:08 PM CDT PATIENT STATUS STAT 08/07/2023 11:04 PM CDT ABG W/COOX STAT 08/07/2023 11:04 PM CDT PROTHROMBIN TIME (PT), P STAT 08/07/2023 11:04 PM CDT FIBRINOGEN, P STAT 08/07/2023 11:04 PM CDT CBC WITHOUT DIFFERENTIAL, B STAT 08/07/2023 11:04 PM CDT LACTATE, B/P STAT 08/07/2023 11:04 PM CDT CALCIUM, IONIZED, S/B STAT 08/07/2023 11:04 PM CDT BASIC METABOLIC PANEL, S/P STAT 08/07/2023 11:04 PM CDT LACTATE, B STAT 08/07/2023 8:45 PM CDT PATIENT STATUS STAT 08/07/2023 8:45 PM CDT SODIUM, B STAT 08/07/2023 8:45 PM CDT ABG W/COOX STAT 08/07/2023 8:45 PM CDT POTASSIUM, B STAT 08/07/2023 8:45 PM CDT GLUCOSE, WHOLE BLOOD STAT 08/07/2023 8:45 PM CDT CALCIUM, IONIZED, S/B STAT 08/07/2023 8:45 PM CDT ACTIVATED PARTIAL THROMBOPLASTIN TIME (APTT), P STAT 08/07/2023 8:43 PM CDT PROTHROMBIN TIME (PT), P STAT 08/07/2023 8:43 PM CDT FIBRINOGEN, P STAT 08/07/2023 8:43 PM CDT PLATELETS, B STAT 08/07/2023 8:43 PM CDT ACT, POCT, B Routine 08/07/2023 8:38 PM CDT ADULT OXYGEN THERAPY Routine 08/07/2023 8:01 PM CDT THORACOSCOPY - DECORTICATION 08/07/2023 7:37 PM CDT Anemia Posthemorrhagic Acute (Blood Loss Anemia) THROMBOELASTOGRAPH, KAOLIN + HEPARINASE, B STAT 08/07/2023 7:18 PM CDT TRANSFUSE RED BLOOD CELLS Routine 08/07/2023 7:10 PM CDT ACTIVATED PARTIAL THROMBOPLASTIN TIME (APTT), P STAT 08/07/2023 7:10 PM CDT PROTHROMBIN TIME (PT), P STAT 08/07/2023 7:10 PM CDT FIBRINOGEN, P STAT 08/07/2023 7:10 PM CDT CBC WITHOUT DIFFERENTIAL, B STAT 08/07/2023 7:10 PM CDT DX CHEST PORTABLE 1 VIEW RAD - Emergent (Fastest; for the most critically ill patients) 08/07/2023 7:03 PM CDT DX CHEST PORTABLE 1 VIEW RAD - Routine (most inpatients and all outpatients) 08/07/2023 5:40 PM CDT POTASSIUM, S/P Timed 08/07/2023 5:21 PM CDT GLUCOSE POCT, B Routine 08/07/2023 5:16 PM CDT PROTHROMBIN TIME (PT), P Timed 08/07/2023 5:16 PM CDT FIBRINOGEN, P Timed 08/07/2023 5:16 PM CDT CBC WITH DIFFERENTIAL, B Timed 08/07/2023 5:16 PM CDT TRANSFUSE FRESH FROZEN PLASMA Routine 08/07/2023 3:21 PM CDT TRANSFUSE FRESH FROZEN PLASMA Routine 08/07/2023 2:44 PM CDT DX CHEST PORTABLE 1 VIEW RAD - Semiurgent (Fast; most ED patients; some inpatients) 08/07/2023 2:34 PM CDT TRANSFUSE RED BLOOD CELLS Routine 08/07/2023 2:30 PM CDT ECG Routine 08/07/2023 2:16 PM CDT LACTATE, B STAT 08/07/2023 2:07 PM CDT PATIENT STATUS STAT 08/07/2023 2:07 PM CDT ABG W/COOX STAT 08/07/2023 2:07 PM CDT CALCIUM, IONIZED, S/B STAT 08/07/2023 2:07 PM CDT GLUCOSE POCT, B Routine 08/07/2023 2:06 PM CDT ACTIVATED PARTIAL THROMBOPLASTIN TIME (APTT), P STAT 08/07/2023 2:06 PM CDT PROTHROMBIN TIME (PT), P STAT 08/07/2023 2:06 PM CDT FIBRINOGEN, P STAT 08/07/2023 2:06 PM CDT CBC WITHOUT DIFFERENTIAL, B STAT 08/07/2023 2:06 PM CDT BASIC METABOLIC PANEL, S/P STAT 08/07/2023 2:06 PM CDT RESPIRATORY ASSESS AND TREAT Routine 08/07/2023 1:57 PM CDT ADULT OXYGEN THERAPY Routine 08/07/2023 1:57 PM CDT ADULT OXYGEN THERAPY Routine 08/07/2023 1:57 PM CDT ADULT OXYGEN THERAPY Routine 08/07/2023 1:57 PM CDT NEGATIVE PRESSURE WOUND THERAPY (WOUND VAC) POST-OP ORDER SET TRIGGER Routine 08/07/2023 1:57 PM CDT TRANSFUSE PLATELETS Routine 08/07/2023 1:37 PM CDT TRANSFUSE PLATELETS Routine 08/07/2023 1:14 PM CDT LACTATE, B STAT 08/07/2023 12:45 PM CDT SODIUM, B STAT 08/07/2023 12:45 PM CDT ABG W/COOX STAT 08/07/2023 12:45 PM CDT POTASSIUM, B STAT 08/07/2023 12:45 PM CDT GLUCOSE, WHOLE BLOOD STAT 08/07/2023 12:45 PM CDT CALCIUM, IONIZED, S/B STAT 08/07/2023 12:45 PM CDT AUTOLOGOUS RED BLOOD CELLS-CELL SALVAGE Routine 08/07/2023 12:42 PM CDT ACTIVATED PARTIAL THROMBOPLASTIN TIME (APTT), P STAT 08/07/2023 12:03 PM CDT PROTHROMBIN TIME (PT), P STAT 08/07/2023 12:03 PM CDT FIBRINOGEN, P STAT 08/07/2023 12:03 PM CDT PLATELETS, B STAT 08/07/2023 12:03 PM CDT ACT, POCT, B Routine 08/07/2023 12:00 PM CDT ACT, POCT, B Routine 08/07/2023 11:30 AM CDT GLUCOSE POCT, B Routine 08/07/2023 11:28 AM CDT ACT, POCT, B Routine 08/07/2023 10:56 AM CDT GLUCOSE POCT, B Routine 08/07/2023 10:55 AM CDT TRANSFUSE RED BLOOD CELLS Routine 08/07/2023 10:42 AM CDT SODIUM, B STAT 08/07/2023 10:33 AM CDT ABG W/COOX STAT 08/07/2023 10:33 AM CDT POTASSIUM, B STAT 08/07/2023 10:33 AM CDT GLUCOSE, WHOLE BLOOD STAT 08/07/2023 10:33 AM CDT CALCIUM, IONIZED, S/B STAT 08/07/2023 10:33 AM CDT ACT, POCT, B Routine 08/07/2023 10:27 AM CDT HEMOGLOBIN (HGB), POCT, B Routine 08/07/2023 10:10 AM CDT (VIJI) - INTRAOPERATIVE WITH COLOR AND LIMITED DOPPLER (PROBE NOT PLACED) Routine 08/07/2023 10:09 AM CDT ACT, POCT, B Routine 08/07/2023 9:13 AM CDT LACTATE, B STAT 08/07/2023 8:53 AM CDT SODIUM, B STAT 08/07/2023 8:53 AM CDT ABG W/COOX STAT 08/07/2023 8:53 AM CDT POTASSIUM, B STAT 08/07/2023 8:53 AM CDT GLUCOSE, WHOLE BLOOD STAT 08/07/2023 8:53 AM CDT CALCIUM, IONIZED, S/B STAT 08/07/2023 8:53 AM CDT ACT, POCT, B Routine 08/07/2023 8:50 AM CDT ROBOTIC-ASSISTED MITRAL VALVE - VALVULOPLASTY 08/07/2023 7:52 AM CDT Regurgitation Mitral PREPARE PLATELETS STAT 08/03/2023 8:18 AM CDT PREPARE RED BLOOD CELLS Routine 08/03/2023 8:18 AM CDT PREPARE RED BLOOD CELLS STAT 08/03/2023 8:18 AM CDT PREPARE RED BLOOD CELLS STAT 08/03/2023 8:18 AM CDT PREPARE RED BLOOD CELLS STAT 08/03/2023 8:18 AM CDT PREPARE RED BLOOD CELLS STAT 08/03/2023 8:18 AM CDT documented in this encounter Results * DX Chest AP or PA and Lateral 2 Views (08/11/2023 12:22 PM CDT) Anatomical Region Laterality Modality Chest, Thoracic RST LOS, Tho racic ARZ LOS, Thoracic FLA LOS N/A Digital Radiography Impressions 08/11/2023 1:38 PM CDT Since 08/10/2023, the right chest tubes have been removed. No definite residual right-sided pneumothorax; however, evaluation is limited secondary to overlying subcutaneous emphysema. Improving bibasilar airspace opacities with resolution of previously noted trace effusions. Stable persistent patchy airspace opacities in the mid to lower right lung and along the right heart border. Similar subcutaneous emphysema along the right chest wall. Aortic calcification. MVR. Degenerative changes of the spine. Narrative 08/11/2023 1:38 PM CDT EXAM: DX CHEST AP OR PA AND LATERAL 2 VIEWS Procedure Note Coy Restrepo M.D. - 08/11/2023 EXAM: DX CHEST AP OR PA AND LATERAL 2 VIEWS IMPRESSION: Since 08/10/2023, the right chest tubes have been removed. No definiteresidual right-sided pneumothorax; however, evaluation is limitedsecondary to overlying subcutaneous emphysema. Improving bibasilarairspace opacities with resolution of previously noted trace effusions. Stable persistent patchy airspaceopacities in the mid to lower right lung and along the right heart border.Similar subcutaneous emphysema along the right chest wall. Aorticcalcification. MVR. Degenerative changes of the spine. us Alvaro Persaud P.A.-C. IMG DIAGNOSTIC IMAGING [facility] Final Result * (TTE) 2D ECHO DOPPLER COLOR (08/11/2023 11:54 AM CDT) Ejection Fraction 62 MC CV EIMS Left ventricular stroke volume index 33 MC CV EIMS Cardiac Output 4.53 MC CV EIMS Cardiac Index 2.7 MC CV EIMS TR Vmax 3.22 MC CV EIMS RA Pressure 5 MC CV EIMS RV Systolic Pressure 46 MC CV EIMS MV mean gradient 3 MC CV EIMS Mitral Valve Area (by PHT) 3.93 MC CV EIMS TV Regurgitant Volume 22 MC CV EIMS Anatomical Region Laterality Modality Echocardiography 08/11/2023 10:4 4 AM CDT Impressions 08/11/2023 1:29 PM CDT Echocardiogram performed per dismissal echo protocol. Status post Medtronic mitral valve annuloplasty (). Status post mitral valvuloplasty (). LEFT VENTRICLE:Normal left ventricular chamber size. Calculated 3-D volumetric left ventricular ejection fraction 62%. Left ventricular cardiac index 2.70 l/min/m2. Left ventricular stroke volume index 33 ml/m2. Abnormal ventricular septal motion - post-operative without other regional wall motion abnormalities. RIGHT VENTRICLE:Mild-moderately enlarged right ventricular chamber size. Mildly reduced right ventricular systolic function. Estimated right ventricular systolic pressure 46 mmHg (right atrial pressure of 5 mmHg). ATRIA:Severely enlarged left atrial size. Mildly enlarged right atrial size. CARDIAC VALVES:Trileaflet aortic valve. Sclerotic aortic valve. Trivial aortic valve regurgitation. Mild mitral valve regurgitation. Mitral valve diastolic mean Doppler gradient 3 mmHg (heart rate 82 BPM). Normal tricuspid valve. Tricuspid annulus dilatation. Moderate tricuspid valve regurgitation. OTHER ECHO FINDINGS:Normal inferior vena cava size with normal inspiratory collapse (>50%). No intracardiac mass or thrombus, but the left atrial appendage cannot be visualized adequately with transthoracic echo to exclude thrombus in this location. No pericardial effusion. For the complete report, see the Order-Level Documents. Narrative 08/11/2023 1:29 PM CDT For the complete report, see the Order-Level Documents. Hemodynamics Heart Rate: 81 BPM Blood Pressure: 152 / 99 mmHg ECG: Sinus rhythm, 1st degree A-V block Final Impressions 1. Status post mitral valve repair. Robotically assisted mitral valve annuloplasty and mitral valvuloplasty (suture closure of posterior leaflet cleft) 07-AUG-2023. 2. Mitral valve diastolic mean Doppler gradient 3 mmHg (heart rate 82 BPM). Mild residual mitral valve regurgitation. 3. Normal left ventricular chamber size. Calculated ejection fraction 62%. 4. Abnormal ventricular septal motion - post-operative without other regional wall motion abnormalities. 5. Mild-moderately enlarged right ventricular chamber size with mildly reduced systolic function. 6. Estimated right ventricular systolic pressure 46 mmHg (right atrial pressure of 5 mmHg). 7. Tricuspid annulus dilatation with moderate tricuspid valve regurgitation. 8. Normal inferior vena cava size with normal inspiratory collapse (>50%). 9. No pericardial effusion. Comments Right ventricle is enlarged compared to preoperative imaging. The annulus is dilated, IVC is dilated and relatively non collapsing suggesting that the increase in tricuspid regurgitation is likely functional. Procedure Note Adrian Maher M.D. - 08/11/2023 For the complete report, see the Order-Level Documents. Hemodynamics Heart Rate: 81 BPM Blood Pressure: 152 / 99 mmHg ECG: Sinus rhythm, 1st degree A-V block Final Impressions 1. Status post mitral valve repair. Robotically assisted mitral valveannuloplasty and mitral valvuloplasty (suture closure of posterior leafletcleft) 07-AUG-2023. 2. Mitral valve diastolic mean Doppler gradient 3 mmHg (heart rate 82BPM). Mild residual mitral valve regurgitation. 3. Normal left ventricular chamber size. Calculated ejection ayopamtw59%. 4. Abnormal ventricular septal motion - post-operative without otherregional wall motion abnormalities. 5. Mild-moderately enlarged right ventricular chamber size with mildlyreduced systolic function. 6. Estimated right ventricular systolic pressure 46 mmHg (right atrialpressure of 5 mmHg). 7. Tricuspid annulus dilatation with moderate tricuspid valveregurgitation. 8. Normal inferior vena cava size with normal inspiratory collapse(>50%). 9. No pericardial effusion. Comments Right ventricle is enlarged compared to preoperative imaging. The annulusis dilated, IVC is dilated and relatively non collapsing suggesting thatthe increase in tricuspid regurgitation is likely functional. Findings Echocardiogram performed per dismissal echo protocol. Status postMedtronic mitral valve annuloplasty (). Status post mitralvalvuloplasty (). LEFT VENTRICLE:Normal left ventricular chamber size. Calculated 3-Dvolumetric left ventricular ejection fraction 62%. Left ventricularcardiac index 2.70 l/min/m2. Left ventricular stroke volume index 33ml/m2. Abnormal ventricular septal motion - post-operative without otherregional wall motion abnormalities. RIGHT VENTRICLE:Mild-moderately enlarged right ventricular chamber size.Mildly reduced right ventricular systolic function. Estimated rightventricular systolic pressure 46 mmHg (right atrial pressure of 5 mmHg). ATRIA:Severely enlarged left atrial size. Mildly enlarged right atrialsize. CARDIAC VALVES:Trileaflet aortic valve. Sclerotic aortic valve. Trivialaortic valve regurgitation. Mild mitral valve regurgitation. Mitral valvediastolic mean Doppler gradient 3 mmHg (heart rate 82 BPM). Normaltricuspid valve. Tricuspid annulus dilatation. Moderate tricuspid valveregurgitation. OTHER ECHO FINDINGS:Normal inferior vena cava size with normal inspiratorycollapse (>50%). No intracardiac mass or thrombus, but the left atrialappendage cannot be visualized adequately with transthoracic echo toexclude thrombus in this location. No pericardial effusion. For the complete report, see the Order-Level Documents. Alvaro Persaud P.A.-C. CV ECHO PROCEDURES Final Res ult * ECG 12 Lead (08/11/2023 10:35 AM CDT) Ventricular Rate ECG/Min 82 BPM MUSE ME Interval 206 ms MUSE QRSD Interval 86 ms MUSE QT Interval 420 ms MUSE QTC Interval 490 ms MUSE P [place] 60 degrees MUSE R [place] 9 degrees MUSE T Wave [place] 14 degrees MUSE 08/11/2023 10:3 5 AM CDT 08/11/2023 10:36 AM CDT Impressions MUSE - 08/11/2023 10:36 AM CDT Normal sinus rhythm with 1st degree A-V block Nonspecific T wave abnormality Prolonged QT When compared with ECG of 09-AUG-2023 10:29, QT has lengthened ME interval has increased Reviewed by KEVIN Cheng Narrative Procedure Note Austin Rose M.D. - 08/11/2023 IMPRESSION: Normal sinus rhythm with 1st degree A-V block Nonspecific T wave abnormality Prolonged QT When compared with ECG of 09-AUG-2023 10:29, QT has lengthened ME interval has increased Reviewed by KEVIN Cheng Alvaro Persaud P.A.-C. ECG ORDERABLES Final Result MUSE NA * (ABNORMAL) CBC without Differential (08/11/2023 10:04 AM CDT) Pathologist [facility] Hemoglobin 10.1(L) 11.6 - 15.0 g/dL 08/11/2023 10:37 AM CDT DTL Hematocrit 30.5(L) 35.5 - 44.9 % 08/11/2023 10:37 AM CDT DTL Erythrocytes 3.24(L) 3.92 - 5.13 x10(12)/L 08/11/2023 10:37 AM CDT DTL MCV 94.1 78.2 - 97.9 fL 08/11/2023 10:37 AM CDT DTL RBC Distrib Width 14.7 12.2 - 16.1 % 08/11/2023 10:37 AM CDT DTL Platelet Count 237 157 - 371 x10(9)/L 08/11/2023 10:37 AM CDT DTL Leukocytes 9.9(H) 3.4 - 9.6 x10(9)/L 08/11/2023 10:37 AM CDT DTL Blood (Blood, Venous) 08/11/2023 10:04 AM CDT 08/11/2023 10:30 AM CDT us Glory Minaya APRN, C.N.P. LAB BLOOD ADD-ON Final Result [facility] [address] [place] [address], [facility] [address] [place] [address] * (ABNORMAL) Basic Metabolic Panel (08/11/2023 10:04 AM CDT) Pathologist [facility] Potassium, S 4.3 3.6 - 5.2 mmol/L 08/11/2023 11:08 AM CDT DTL Sodium, S 132(L) 135 - 145 mmol/L 08/11/2023 11:08 AM CDT DTL Chloride, S 93(L) 98 - 107 mmol/L 08/11/2023 11:08 AM CDT DTL Bicarbonate, S 28 22 - 29 mmol/L 08/11/2023 11:08 AM CDT DTL Anion Gap 11 7 - 15 08/11/2023 11:08 AM CDT DTL BUN (Blood Urea Nitrogen), S 8 6 - 21 mg/dL 08/11/2023 11:08 AM CDT DTL Creatinine 0.58(L) 0.59 - 1.04 mg/dL 08/11/2023 11:08 AM CDT DTL Estimated GFR (eGFR) >90 >=60 mL/min/BSA 08/11/2023 11:08 AM CDT DTL Comment: Estimated GFR calculated using the 2020 CKD_EPI creatinine equation. Calcium, Total, S 9.0 8.8 - 10.2 mg/dL 08/11/2023 11:08 AM CDT DTL Glucose, S 118 70 - 140 mg/dL 08/11/2023 11:08 AM CDT DTL Blood (Blood, Venous) 08/11/2023 10:04 AM CDT 08/11/2023 10:46 AM CDT us Glory Minaya APRN, C.N.P. LAB BLOOD ADD-ON Final Result [facility] [address] [place] [address], [place] DTL [facility] [address] [place] [address] * DX Chest Portable 1 View (08/10/2023 9:09 AM CDT) Anatomical Region Laterality Modality Chest, Thoracic RST LOS, Tho racic ARZ LOS, Thoracic FLA LOS N/A Digital Radiography Impressions 08/10/2023 9:27 AM CDT Since 08/08/2023, new tiny to small bilateral pleural effusions, left greater than right. Slight increased right midlung and basilar airspace consolidations. Decreased left basilar linear atelectasis. Increased subcutaneous emphysema in the right chest wall, correlate with recent tube manipulation and physical examination, attention on follow-up. Slightly more advanced towards the right apex of one of the right-sided chest tubes. Similar positioning of the other right-sided chest tube. Interval removal of right IJ CVC. No discernible pneumothorax. Removal of mediastinal drain. Aortic calcifications. Mitral valve valvuloplasty. Narrative 08/10/2023 9:27 AM CDT EXAM: DX CHEST PORTABLE 1 VIEW Procedure Note Leon Li D.O. - 08/10/2023 EXAM: DX CHEST PORTABLE 1 VIEW IMPRESSION: Since 08/08/2023, new tiny to small bilateral pleural effusions, leftgreater than right. Slight increased right midlung and basilar airspaceconsolidations. Decreased left basilar linear atelectasis. Increasedsubcutaneous emphysema in the right chest wall, correlate with recent tube manipulation and physicalexamination, attention on follow-up. Slightly more advanced towards theright apex of one of the right-sided chest tubes. Similar positioning ofthe other right-sided chest tube. Interval removal of right IJ CVC. No discernible pneumothorax. Removal ofmediastinal drain. Aortic calcifications. Mitral valve valvuloplasty. Sindhu Wagner APRN, C .N.P., D.N.P. IMG DIAGNOSTIC IMAGING PROCEDURES Final Result * (ABNORMAL) CBC without Differential (08/10/2023 7:10 AM CDT) [facility] Hemoglobin 9.3(L) 11.6 - 15.0 g/dL 08/10/2023 8:46 AM CDT DTL Hematocrit 27.3(L) 35.5 - 44.9 % 08/10/2023 8:46 AM CDT DTL Erythrocytes 2.92(L) 3.92 - 5.13 x10(12)/L 08/10/2023 8:46 AM CDT DTL MCV 93.5 78.2 - 97.9 fL 08/10/2023 8:46 AM CDT DTL RBC Distrib Width 15.2 12.2 - 16.1 % 08/10/2023 8:46 AM CDT DTL Platelet Count 163 157 - 371 x10(9)/L 08/10/2023 8:46 AM CDT DTL Leukocytes 11.4(H) 3.4 - 9.6 x10(9)/L 08/10/2023 8:46 AM CDT DTL Blood (Blood, Venous) 08/10/2023 7:10 AM CDT 08/10/2023 8:08 AM CDT Glory Minaya APRN, C.N.P. LAB BLOOD ADD-ON Final Result [facility] [address] [place] [address], [facility] [address] [place] [address] * (ABNORMAL) Basic Metabolic Panel (08/10/2023 7:10 AM CDT) Potassium, S 4.2 3.6 - 5.2 mmol/L 08/10/2023 8:48 AM CDT DTL Sodium, S 130(L) 135 - 145 mmol/L 08/10/2023 8:48 AM CDT DTL Chloride, S 92(L) 98 - 107 mmol/L 08/10/2023 8:48 AM CDT DTL Bicarbonate, S 29 22 - 29 mmol/L 08/10/2023 8:48 AM CDT DTL Anion Gap 9 7 - 15 08/10/2023 8:48 AM CDT DTL BUN (Blood Urea Nitrogen), S 7 6 - 21 mg/dL 08/10/2023 8:48 AM CDT DTL Creatinine 0.50(L) 0.59 - 1.04 mg/dL 08/10/2023 8:48 AM CDT DTL Estimated GFR (eGFR) >90 >=60 mL/min/BSA 08/10/2023 8:48 AM CDT DTL Comment: Estimated GFR calculated using the 2020 CKD_EPI creatinine equation. Calcium, Total, S 8.8 8.8 - 10.2 mg/dL 08/10/2023 8:48 AM CDT DTL Glucose, S 115 70 - 140 mg/dL 08/10/2023 8:48 AM CDT DTL Blood (Blood, Venous) 08/10/2023 7:10 AM CDT 08/10/2023 8:24 AM CDT Glory Minaya APRN, C.N.P. LAB BLOOD ADD-ON Final Result [facility] [address] [place] [address], [facility] [address] [place] [address] * Glucose, POCT (08/10/2023 6:34 AM CDT) Glucose, POCT, B 109 70 - 140 mg/dL 08/10/2023 6:39 AM CDT PCLX Site Capillary 08/10/2023 6:39 AM CDT PCLX Last Intake > 4 hours 08/10/2023 6:39 AM CDT PCLX Blood 08/10/2023 6:34 AM CDT 08/10/2023 6:39 AM CDT us Unknown Provider LAB POCT ORDERABLES-MANUAL Rosmery l Result Performing Organization Address City/[facility]/ZIP Co de Phone Number POC [facility] [address] [place] [address], [place] PCLX [facility] POC [address] [place] [address] * Glucose, POCT (08/09/2023 10:22 PM CDT) Glucose, POCT, B 119 70 - 140 mg/dL 08/09/2023 10:37 PM CDT PCLX Site Capillary 08/09/2023 10:37 PM CDT PCLX Last Intake 2-3 hours 08/09/2023 10:37 PM CDT PCLX Blood 08/09/2023 10:2 2 PM CDT 08/09/2023 10:37 PM CDT us Unknown Provider LAB POCT ORDERABLES-MANUAL Rosmery l Result Performing Organization Address [facility] Co de Phone Number [facility] [address] [place] [address], [place] PCLX [facility] POC [address] [place] [address] * Glucose, POCT (08/09/2023 5:33 PM CDT) Glucose, POCT, B 102 70 - 140 mg/dL 08/09/2023 5:44 PM CDT PCLX Site Capillary 08/09/2023 5:44 PM CDT PCLX Last Intake 2-3 hours 08/09/2023 5:44 PM CDT PCLX Blood 08/09/2023 5:33 PM CDT 08/09/2023 5:44 PM CDT us Unknown Provider LAB POCT ORDERABLES-MANUAL Rosmery l Result POC [facility] [address] [place] [address], [place] PCLX [facility] POC [address] [place] [address] * Glucose, POCT (08/09/2023 4:34 PM CDT) Glucose, POCT, B 83 70 - 140 mg/dL 08/09/2023 5:44 PM CDT PCLX Site Capillary 08/09/2023 5:44 PM CDT PCLX Last Intake 2-3 hours 08/09/2023 5:44 PM CDT PCLX Blood 08/09/2023 4:34 PM CDT 08/09/2023 5:44 PM CDT us Unknown Provider LAB POCT ORDERABLES-MANUAL Rosmery l Result Performing Organization Address [facility]/ZIP Co de Phone Number [facility] [address] [place] [address], [place] PCLX [facility] POC [address] [place] [address] * Glucose, POCT (08/09/2023 10:55 AM CDT) Pathologist [facility] Glucose, POCT, B 104 70 - 140 mg/dL 08/09/2023 11:25 AM CDT PCLX Site Capillary 08/09/2023 11:25 AM CDT PCLX Last Intake 2-3 hours 08/09/2023 11:25 AM CDT PCLX Blood 08/09/2023 10:5 5 AM CDT 08/09/2023 11:25 AM CDT us Unknown Provider LAB POCT ORDERABLES-MANUAL Rosmery l Result Performing Organization Address City/[facility]/ZIP Co de Phone Number POC [facility] [address] [place] [address], [facility] PCLX [facility] POC [address] [place] [address] * ECG 12 Lead (08/09/2023 10:29 AM CDT) Pathologist [facility] Ventricular Rate ECG/Min 97 BPM MUSE ME Interval 152 ms MUSE QRSD Interval 82 ms MUSE QT Interval 374 ms MUSE QTC Interval 474 ms MUSE P [place] 67 degrees MUSE R [place] 0 degrees MUSE T Wave [place] 12 degrees MUSE 08/09/2023 10:2 9 AM CDT 08/09/2023 10:37 AM CDT Impressions MUSE - 08/09/2023 10:37 AM CDT Sinus rhythm Nonspecific T wave abnormality When compared with ECG of 07-AUG-2023 14:16, ME interval has decreased QT has shortened Reviewed by KEVIN Pittman Narrative Procedure Note Thomas Gaines M.D., M.P.H. - 08/09/2023 IMPRESSION: Sinus rhythm Nonspecific T wave abnormality When compared with ECG of 07-AUG-2023 14:16, ME interval has decreased QT has shortened Reviewed by KEVIN Pittman us Russell Waller P.A.-C., M.S. ECG ORDERABLE S Final Result MUSE NA * (ABNORMAL) CBC without Differential (08/09/2023 6:43 AM CDT) Hemoglobin 9.1(L) 11.6 - 15.0 g/dL 08/09/2023 7:18 AM CDT DTL Hematocrit 26.6(L) 35.5 - 44.9 % 08/09/2023 7:18 AM CDT DTL Erythrocytes 2.91(L) 3.92 - 5.13 x10(12)/L 08/09/2023 7:18 AM CDT DTL MCV 91.4 78.2 - 97.9 fL 08/09/2023 7:18 AM CDT DTL RBC Distrib Width 16.0 12.2 - 16.1 % 08/09/2023 7:18 AM CDT DTL Platelet Count 130(L) 157 - 371 x10(9)/L 08/09/2023 8:01 AM CDT DTL Comment:Results confirmed by smear, no clumping or interference seen. Leukocytes 12.2(H) 3.4 - 9.6 x10(9)/L 08/09/2023 8:01 AM CDT DTL Blood (Blood, Venous) 08/09/2023 6:43 AM CDT 08/09/2023 7:07 AM CDT Glory Minaya APRN C.N.P. LAB BLOOD ADD-ON Final Result [facility] [address] [place] [address], [facility] [address] [place] [address] * (ABNORMAL) Basic Metabolic Panel (08/09/2023 6:43 AM CDT) Pathologist [facility] Potassium, S 3.7 3.6 - 5.2 mmol/L 08/09/2023 7:45 AM CDT DTL Sodium, S 130(L) 135 - 145 mmol/L 08/09/2023 7:45 AM CDT DTL Chloride, S 95(L) 98 - 107 mmol/L 08/09/2023 7:45 AM CDT DTL Bicarbonate, S 25 22 - 29 mmol/L 08/09/2023 7:45 AM CDT DTL Anion Gap 10 7 - 15 08/09/2023 7:45 AM CDT DTL BUN (Blood Urea Nitrogen), S 9 6 - 21 mg/dL 08/09/2023 7:45 AM CDT DTL Creatinine 0.53(L) 0.59 - 1.04 mg/dL 08/09/2023 7:45 AM CDT DTL Estimated GFR (eGFR) >90 >=60 mL/min/BSA 08/09/2023 7:45 AM CDT DTL Comment: Estimated GFR calculated using the 2020 CKD_EPI creatinine equation. Calcium, Total, S 8.9 8.8 - 10.2 mg/dL 08/09/2023 7:45 AM CDT DTL Glucose, S 152(H) 70 - 140 mg/dL 08/09/2023 7:45 AM CDT DTL Blood (Blood, Venous) 08/09/2023 6:43 AM CDT 08/09/2023 7:25 AM CDT us Glory Minaya APRN, C.N.P. LAB BLOOD ADD-ON Final Result Performing Organization Address City/[facility]/ZIP Co de Phone Number [facility] [address] [place] [address], [facility] DTL [facility] [address] [place] [address] * Glucose, POCT (08/09/2023 6:25 AM CDT) Glucose, POCT, B 127 70 - 140 mg/dL 08/09/2023 6:27 AM CDT PCLX Site Capillary 08/09/2023 6:27 AM CDT PCLX Last Intake > 4 hours 08/09/2023 6:27 AM CDT PCLX Blood 08/09/2023 6:25 AM CDT 08/09/2023 6:27 AM CDT us Unknown Provider LAB POCT ORDERABLES-MANUAL Rosmery l Result Performing Organization Address [facility]/ZIP Co de Phone Number POC [facility] [address] [place] [address], [facility] PCLX [facility] POC [address] [place] [address] * (ABNORMAL) Glucose, POCT (08/08/2023 8:59 PM CDT) Glucose, POCT, B 147(H) 70 - 140 mg/dL 08/08/2023 9:03 PM CDT PCLX Site Capillary 08/08/2023 9:03 PM CDT PCLX Last Intake 1-2 hours 08/08/2023 9:03 PM CDT PCLX Blood 08/08/2023 8:59 PM CDT 08/08/2023 9:03 PM CDT us Unknown Provider LAB POCT ORDERABLES-MANUAL Edit ed Result - Final Performing Organization Address City/[facility]/ZIP Co de Phone Number POC [facility] [address] [place] [address], [facility] PCLX [facility] POC [address] [place] [address] * (ABNORMAL) Glucose, POCT (08/08/2023 4:13 PM CDT) Glucose, POCT, B 146(H) 70 - 140 mg/dL 08/08/2023 4:39 PM CDT PCLX Site Capillary 08/08/2023 4:39 PM CDT PCLX Last Intake 2-3 hours 08/08/2023 4:39 PM CDT PCLX Blood 08/08/2023 4:13 PM CDT 08/08/2023 4:39 PM CDT us Unknown Provider LAB POCT ORDERABLES-MANUAL Rosmery galvan Result POC [facility] [address] [place] [address], [facility] PCLX [facility] POC [address] [place] [address] * Transfuse Red Blood Cells : (08/08/2023 1:03 PM CDT) Kaitlynn Ko APRN, C.N.P., D.N.P. BLOOD TRANSFUSION ORDERABLES Edited Result - Final * Transfuse Red Blood Cells : , 1 Units (08/08/2023 1:03 PM CDT) Kaitlynn Ko APRN, C.N.P., D.N.P. BLOOD TRANSFUSION ORDERABLES Edited Result - Final * (ABNORMAL) CBC without Differential (08/08/2023 9:12 AM CDT) Hemoglobin 9.6(L) 11.6 - 15.0 g/dL 08/08/2023 9:18 AM CDT STMA Hematocrit 27.3(L) 35.5 - 44.9 % 08/08/2023 9:18 AM CDT STMA Erythrocytes 3.05(L) 3.92 - 5.13 x10(12)/L 08/08/2023 9:18 AM CDT STMA MCV 89.5 78.2 - 97.9 fL 08/08/2023 9:18 AM CDT STMA RBC Distrib Width 15.9 12.2 - 16.1 % 08/08/2023 9:18 AM CDT [facility] Platelet Count 125(L) 157 - 371 x10(9)/L 08/08/2023 9:18 AM CDT STMA Leukocytes 12.7(H) 3.4 - 9.6 x10(9)/L 08/08/2023 9:18 AM CDT STMA Blood (Blood, Arterial) 08/08/2023 9:12 AM CDT 08/08/2023 9:16 AM CDT Kaitlynn Ko APRN, C.N.P., D.N.P. LAB BLOOD AD D-ON Final Result Performing Organization Address City/[facility] Co de Phone Number [facility] [address] [place] [address], [facility] STMA [facility] [address] [place] [address] * (ABNORMAL) Glucose, POCT (08/08/2023 8:30 AM CDT) [facility] Glucose, POCT, B 164(H) 70 - 140 mg/dL 08/08/2023 8:31 AM CDT PCLX Site ARTLINE 08/08/2023 8:31 AM CDT PCLX Blood 08/08/2023 8:30 AM CDT 08/08/2023 8:32 AM CDT us Unknown Provider LAB POCT ORDERABLES-MANUAL Rosmery l Result POC [facility] [address] [place] [address], [facility] PCLX [facility] POC [address] [place] [address] * Transfuse Red Blood Cells : (08/08/2023 6:26 AM CDT) us Kaitlynn Ko APRN, C.N.P., D.N.P. BLOOD TRANSF USION ORDERABLES Final Result * Transfuse Red Blood Cells : , 1 Units (08/08/2023 6:26 AM CDT) us Kaitlynn Ko APRN, C.N.P., D.N.P. BLOOD TRANSF USION ORDERABLES Final Result * DX Chest Portable with AM Rounds 1 View (08/08/2023 4:31 AM CDT) Anatomical Region Laterality Modality Chest, Thoracic RST LOS, Tho racic ARZ LOS, Thoracic FLA LOS N/A Digital Radiography Impressions 08/08/2023 5:42 AM CDT Since 08/07/2023, improved lung volumes with decreased bibasilar atelectasis. Decreased opacities lateral right lower lung. Decreased trace subcutaneous emphysema right chest wall. Remainder not significantly changed. No discernible pleural effusion or pneumothorax. Cardiac valve prosthesis. Mediastinal/pericardial drain. Two right apically oriented chest tubes. Right IJ CVC with tip in the low SVC. Aortic calcifications. Degenerative changes right shoulder. Narrative 08/08/2023 5:42 AM CDT EXAM: DX CHEST PORTABLE WITH AM ROUNDS 1 VIEW Procedure Note Jacob Rodriguez M.D., Ph.D. - 08/08/2023 EXAM: DX CHEST PORTABLE WITH AM ROUNDS 1 VIEW IMPRESSION: Since 08/07/2023, improved lung volumes with decreased bibasilaratelectasis. Decreased opacities lateral right lower lung. Decreased tracesubcutaneous emphysema right chest wall. Remainder not significantlychanged. No discernible pleural effusion or pneumothorax. Cardiac valve prosthesis.Mediastinal/pericardial drain. Two right apically oriented chest tubes.Right IJ CVC with tip in the low SVC. Aortic calcifications. Degenerativechanges right shoulder. us Tristian Kamara, B.Ch., B.A.O. IMG DIAGNOS TIC IMAGING PROCEDURES Final Result * Calcium, Ionized (08/08/2023 4:05 AM CDT) Calcium, Ionized, B 4.92 4.65 - 5.30 mg/dL 08/08/2023 4:24 AM CDT STMA Blood 08/08/2023 4:05 AM CDT 08/08/2023 4:22 AM CDT Tristian Kamara, MuCh., B.A.O. LAB BLOOD N ON ADD-ON Final Result Performing Organization Address [facility] Co de Phone Number [facility] [address] [place] [address], [facility] [address] [place] [address] * Patient Status (08/08/2023 4:05 AM CDT) [facility] O2 Flow 1.0 L/min 08/08/2023 4:22 AM CDT STMA Device NC 08/08/2023 4:22 AM CDT STMA Spont. breaths/min 15 08/08/2023 4:22 AM CDT STMA Blood 08/08/2023 4:05 AM CDT 08/08/2023 4:22 AM CDT Tristian Kamara, Jani.Ch., B.A.O. LAB BLOOD N ON ADD-ON Final Result Performing Organization Address [facility] de Phone Number [facility] [address] [place] [address], [facility] [address] [place] [address] * (ABNORMAL) CBC without Differential (08/08/2023 4:05 AM CDT) Pathologist [facility] Hemoglobin 6.9(L) 11.6 - 15.0 g/dL 08/08/2023 5:39 AM CDT DTL Hematocrit 20.0(L) 35.5 - 44.9 % 08/08/2023 5:39 AM CDT DTL Erythrocytes 2.16(L) 3.92 - 5.13 x10(12)/L 08/08/2023 5:39 AM CDT DTL MCV 92.6 78.2 - 97.9 fL 08/08/2023 5:39 AM CDT DTL RBC Distrib Width 17.3(H) 12.2 - 16.1 % 08/08/2023 5:39 AM CDT DTL Platelet Count 124(L) 157 - 371 x10(9)/L 08/08/2023 5:39 AM CDT DTL Leukocytes 11.3(H) 3.4 - 9.6 x10(9)/L 08/08/2023 5:39 AM CDT DTL Blood (Blood, Venous) 08/08/2023 4:05 AM CDT 08/08/2023 5:24 AM CDT us Glory Minaya APRN, C.N.P. LAB BLOOD ADD-ON Final Result [facility] [address] [place] [address], [facility] [address] [place] [address] * (ABNORMAL) Basic Metabolic Panel (08/08/2023 4:05 AM CDT) [facility] Potassium, S 4.1 3.6 - 5.2 mmol/L 08/08/2023 5:55 AM CDT DTL Sodium, S 136 135 - 145 mmol/L 08/08/2023 5:55 AM CDT DTL Chloride, S 100 98 - 107 mmol/L 08/08/2023 5:55 AM CDT DTL Bicarbonate, S 23 22 - 29 mmol/L 08/08/2023 5:55 AM CDT DTL Anion Gap 13 7 - 15 08/08/2023 5:55 AM CDT DTL BUN (Blood Urea Nitrogen), S 10 6 - 21 mg/dL 08/08/2023 5:55 AM CDT DTL Creatinine 0.55(L) 0.59 - 1.04 mg/dL 08/08/2023 5:55 AM CDT DTL Estimated GFR (eGFR) >90 >=60 mL/min/BSA 08/08/2023 5:55 AM CDT DTL Comment: Estimated GFR calculated using the 2020 CKD_EPI creatinine equation. Calcium, Total, S 8.5(L) 8.8 - 10.2 mg/dL 08/08/2023 5:55 AM CDT DTL Glucose, S 156(H) 70 - 140 mg/dL 08/08/2023 5:55 AM CDT DTL Blood (Blood, Venous) 08/08/2023 4:05 AM CDT 08/08/2023 5:39 AM CDT Glory Minaya APRN, C.N.P. LAB BLOOD ADD-ON Final Result Performing Organization Address City/[facility]/ZIP Co de Phone Number [facility] [address] [place] [address], [facility] [address] [place] [address] * (ABNORMAL) Prothrombin Time (PT) (08/08/2023 4:05 AM CDT) Prothrombin Time, P 13.1(H) 9.4 - 12.5 sec 08/08/2023 5:55 AM CDT DTL INR 1.2 0.9 - 1.1 08/08/2023 5:55 AM CDT DTL Comment: ----ADDITIONAL INFORMATION---- Standard intensity warfarin therapeutic range: 2.0 to 3.0 High intensity warfarin therapeutic range: 2.5 to 3.5 Blood (Blood, Venous) 08/08/2023 4:05 AM CDT 08/08/2023 5:24 AM CDT Tristian Kamara, B.Ch., B.A.O. LAB BLOOD A DD-ON Final Result [facility] [address] [place] [address], [facility] [address] [place] [address] * Lactate, Whole Blood (08/08/2023 4:05 AM CDT) Lactate, B 1.2 0.5 - 2.2 mmol/L 08/08/2023 4:24 AM CDT STMA Blood (Blood, Arterial) 08/08/2023 4:05 AM CDT 08/08/2023 4:22 AM CDT Tristian Kamara, B.Vijaya., B.A.O. LAB BLOOD N ON ADD-ON Final Result [facility] [address] [place] [address], [facility] STMA [facility] [address] [place] [address] * (ABNORMAL) Blood Gas with Coox, Arterial (08/08/2023 4:05 AM CDT) pO2 93 83 - 108 mm Hg 08/08/2023 4:24 AM CDT STMA pCO2 38 32 - 45 mm Hg 08/08/2023 4:24 AM CDT STMA pH 7.43 7.35 - 7.45 pH 08/08/2023 4:24 AM CDT STMA Base Excess 0 -2 - 3 mmol/L 08/08/2023 4:24 AM CDT STMA HCO3 25 22 - 26 mmol/L 08/08/2023 4:24 AM CDT STMA Hemoglobin, Venous 7.3(L) 11.6 - 15.0 g/dL 08/08/2023 4:24 AM CDT STMA O2Hb 95.7 94.0 - 98.0 % 08/08/2023 4:24 AM CDT STMA COHb 2.3 <3.0 % 08/08/2023 4:24 AM CDT STMA MetHb <1.0 <1.5 % 08/08/2023 4:24 AM CDT STMA CtO2 10.0(L) 18.0 - 21.0 vol % 08/08/2023 4:24 AM CDT STMA Arterial Sample Site Art Line 08/08/2023 4:22 AM CDT STMA Comment:Juvenal's test not don e. Blood (Blood, Arterial) 08/08/2023 4:05 AM CDT 08/08/2023 4:22 AM CDT Tristian Kamara B.Ch., B.A.O. LAB BLOOD N ON ADD-ON Final Result [facility] [address] [place] [address], [facility] STMA [facility] [address] [place] [address] * (ABNORMAL) Hepatic Function Panel (08/08/2023 4:05 AM CDT) Pathologist [facility] Bilirubin, Total, S 1.3(H) 0.0 - 1.2 mg/dL 08/08/2023 5:55 AM CDT DTL Bilirubin, Direct, S 0.6(H) 0.0 - 0.3 mg/dL 08/08/2023 5:55 AM CDT DTL Aspartate Aminotransferase (AST), S 33 8 - 43 U/L 08/08/2023 5:55 AM CDT DTL Alanine Aminotransferase (ALT), S 14 7 - 45 U/L 08/08/2023 5:55 AM CDT DTL Alkaline Phosphatase, S 39 35 - 104 U/L 08/08/2023 5:55 AM CDT DTL Albumin, S 3.1(L) 3.5 - 5.0 g/dL 08/08/2023 5:55 AM CDT DTL Protein, Total, S 4.4(L) 6.3 - 7.9 g/dL 08/08/2023 5:55 AM CDT DTL Blood (Blood, Venous) 08/08/2023 4:05 AM CDT 08/08/2023 5:39 AM CDT Tristian Kamara, Maddi., B.A.O. LAB BLOOD A DD-ON Final Result Performing Organization Address City/[facility]/ZIP Co de Phone Number [facility] [address] [place] [address], [place] DTL [facility] [address] [place] [address] * (ABNORMAL) Glucose, POCT (08/08/2023 4:00 AM CDT) Pathologist [facility] Glucose, POCT, B 161(H) 70 - 140 mg/dL 08/08/2023 4:02 AM CDT PCLX Site ARTLINE 08/08/2023 4:02 AM CDT PCLX Blood 08/08/2023 4:00 AM CDT 08/08/2023 4:02 AM CDT Unknown Provider LAB POCT ORDERABLES-MANUAL Rosmery l Result Performing Organization Address [facility] Co de Phone Number POC [facility] [address] [place] [address], [facility] PCLX [facility] [address] [place] [address] * Lactate, B (08/08/2023 12:10 AM CDT) [facility] Lactate, B 1.2 0.5 - 2.2 mmol/L 08/08/2023 12:15 AM CDT [facility] Blood (Blood, Venous) 08/08/2023 12:10 AM CDT 08/08/2023 12:13 AM CDT Bon Manuel Jr., WATER FILTERER, C.N.P., M.S.N. LAB BLOO D NON ADD-ON Final Result Performing Organization Address [facility] de Phone Number [facility] [address] [place] [address], [facility] STMA [facility] [address] [place] [address] * Tissue Inhibitor of Metalloproteinase 2 (TIMP-2) and Insulin-like Growth Factor Binding Protein 7 (IGFBP-7) Risk Score, Random, Urine (08/07/2023 11:56 PM CDT) [facility] TIMP2/IGFBP7 BRIANNA Risk Score, U 0.14 <0.30 (ng/mL)(2) /1000 08/08/2023 1:58 AM CDT STMA Comment: ----ADDITIONAL INFORMATION---- <0.30= <0.30 is considered low risk for acute kidney injury. 0.30-2.00= 0.30-2.00 indicates increased risk for acute kidney injury. >2.00= >2.00 indicates high risk for acute kidney injury. Urine (Urine, Catheter) 08/07/2023 11:56 PM CDT 08/08/2023 12:09 AM CDT us Tristian Kamara, B.Vijaya., B.A.O. LAB URINE O RDERABLES Final Result [facility] [address] [place] [address], [place] [facility] [address] [place] [address] * DX Chest Portable 1 View (08/07/2023 11:44 PM CDT) Anatomical Region Laterality Modality Chest, Thoracic RST LOS, Tho racic ARZ LOS, Thoracic FLA LOS N/A Digital Radiography Impressions 08/08/2023 11:57 AM CDT Since 1853, interval thoracoscopy and thoracotomy with evacuation of right-sided hemothorax. A second right chest tube has been added. No definite pneumothorax. Decreased lung volumes with increased bibasilar and perihilar atelectasis. Remainder of exam not significantly changed. Right IJ CVC with tip in the low SVC. Pericardial mediastinal drain. Postoperative changes of mitral valve repair. Aortic calcification. Narrative 08/08/2023 11:57 AM CDT EXAM: DX CHEST PORTABLE 1 VIEW Procedure Note Jacob Rodriguez M.D., Ph.D. - 08/08/2023 EXAM: DX CHEST PORTABLE 1 VIEW IMPRESSION: Since 1853, interval thoracoscopy and thoracotomy with evacuation ofright-sided hemothorax. A second right chest tube has been added. Nodefinite pneumothorax. Decreased lung volumes with increased bibasilar andperihilar atelectasis. Remainder of exam not significantly changed. Right IJ CVC with tip in the low SVC. Pericardial mediastinal drain.Postoperative changes of mitral valve repair. Aortic calcification. Socorro Felipe APRN.N.P., D.N.P. IMG DIAGNOST IC IMAGING PROCEDURES Final Result * (ABNORMAL) Glucose, POCT (08/07/2023 11:08 PM CDT) [facility] Glucose, POCT, B 197(H) 70 - 140 mg/dL 08/07/2023 11:09 PM CDT PCLX Site ARTLINE 08/07/2023 11:09 PM CDT PCLX Blood 08/07/2023 11:0 8 PM CDT 08/07/2023 11:09 PM CDT Unknown Provider LAB POCT ORDERABLES-MANUAL Rosmery l Result Performing Organization Address City/[facility]/ZIP Co de Phone Number POC [facility] [address] PCLX [facility] POC [address] [place] [address] * Fibrinogen (08/07/2023 11:04 PM CDT) [facility] Fibrinogen, P 288 200 - 393 mg/dL 08/07/2023 11:18 PM CDT STMA Blood (Blood, Arterial) 08/07/2023 11:04 PM CDT 08/07/2023 11:07 PM CDT Kaitlynn Ko APRN, Socorro.N.P., D.N.P. LAB BLOOD AD D-ON Final Result [facility] [address] [place], [place] [id number] [place] [address] STMA [facility] [address] [place] [address] * Prothrombin Time (PT) (08/07/2023 11:04 PM CDT) [facility] Prothrombin Time, P 12.1 9.4 - 12.5 sec 08/07/2023 11:18 PM CDT STMA INR 1.1 0.9 - 1.1 08/07/2023 11:18 PM CDT STMA Comment: ----ADDITIONAL INFORMATION---- Standard intensity warfarin therapeutic range: 2.0 to 3.0 High intensity warfarin therapeutic range: 2.5 to 3.5 Blood (Blood, Venous) 08/07/2023 11:04 PM CDT 08/07/2023 11:07 PM CDT us Kaitlynn Ko APRN, C.N.P., D.N.P. LAB BLOOD AD D-ON Final Result Performing Organization Address [facility] Co de Phone Number [facility] [address] [place] [address] * Patient Status (08/07/2023 11:04 PM CDT) O2 Flow 1.0 L/min 08/07/2023 11: 07 PM CDT [facility] Device NC 08/07/2023 11: 07 PM CDT [facility] Blood 08/07/2023 11:0 4 PM CDT 08/07/2023 11:07 PM CDT Result [facility] Kaitlynn Ko APRN, C.N.P., D.N.P. LAB BLOOD NO N ADD-ON Final Result Performing Organization Address [facility] de Phone Number [facility] [address] [place] [address] * (ABNORMAL) Calcium, Ionized (08/07/2023 11:04 PM CDT) Calcium, Ionized, B 5.32(H) 4.65 - 5.30 mg/dL 08/07/2023 11:11 PM CDT [facility] Blood (Blood, Venous) 08/07/2023 11:04 PM CDT 08/07/2023 11:07 PM CDT us Kaitlynn Ko APRN, C.N.P., D.N.P. LAB BLOOD NO N ADD-ON Final Result [facility] [address] [place] [address], [facility] STMA [facility] [address] [place] [address] * (ABNORMAL) Basic Metabolic Panel (08/07/2023 11:04 PM CDT) Pathologist [facility] Potassium, P 3.8 3.6 - 5.2 mmol/L 08/07/2023 11:25 PM CDT STMA Sodium, P 135 135 - 145 mmol/L 08/07/2023 11:25 PM CDT STMA Chloride, P 98 98 - 107 mmol/L 08/07/2023 11:25 PM CDT STMA Bicarbonate, P 21(L) 22 - 29 mmol/L 08/07/2023 11:25 PM CDT STMA Anion Gap, P 16(H) 7 - 15 08/07/2023 11:25 PM CDT STMA BUN (Blood Urea Nitrogen), P 9 6 - 21 mg/dL 08/07/2023 11:25 PM CDT STMA Creatinine 0.49(L) 0.59 - 1.04 mg/dL 08/07/2023 11:25 PM CDT STMA Estimated GFR (eGFR) >90 >=60 mL/min/BSA 08/07/2023 11:25 PM CDT STMA Comment: Estimated GFR calculated using the 2020 CKD_EPI creatinine equation. Calcium, Total, P 9.4 8.8 - 10.2 mg/dL 08/07/2023 11:25 PM CDT STMA Glucose, P 186(H) 70 - 140 mg/dL 08/07/2023 11:25 PM CDT STMA Blood (Blood, Venous) 08/07/2023 11:04 PM CDT 08/07/2023 11:07 PM CDT Socorro Felipe APRN.N.P., D.N.P. LAB BLOOD AD D-ON Final Result [facility] [address] [place] [address], [facility] [address] [place] [address] * (ABNORMAL) CBC without Differential (08/07/2023 11:04 PM CDT) Pathologist [facility] Hemoglobin 9.1(L) 11.6 - 15.0 g/dL 08/07/2023 11:10 PM CDT STMA Hematocrit 26.9(L) 35.5 - 44.9 % 08/07/2023 11:10 PM CDT STMA Erythrocytes 2.90(L) 3.92 - 5.13 x10(12)/L 08/07/2023 11:10 PM CDT STMA MCV 92.8 78.2 - 97.9 fL 08/07/2023 11:10 PM CDT STMA RBC Distrib Width 17.2(H) 12.2 - 16.1 % 08/07/2023 11:10 PM CDT STMA Platelet Count 146(L) 157 - 371 x10(9)/L 08/07/2023 11:10 PM CDT STMA Leukocytes 11.2(H) 3.4 - 9.6 x10(9)/L 08/07/2023 11:10 PM CDT STMA Blood (Blood, Arterial) 08/07/2023 11:04 PM CDT 08/07/2023 11:07 PM CDT Kaitlynn Ko APRN, C.N.P., D.N.P. LAB BLOOD AD D-ON Final Result [facility] [address] [place] [address], [place] [facility] [address] [place] [address] * Lactate (08/07/2023 11:04 PM CDT) Pathologist [facility] Lactate, P 1.7 0.5 - 2.2 mmol/L 08/07/2023 11:34 PM CDT STMA Blood (Blood, Arterial) 08/07/2023 11:04 PM CDT 08/07/2023 11:07 PM CDT Kaitlynn Ko APRN C.N.P., D.N.P. LAB BLOOD NO N ADD-ON Final Result [facility] [address] [place] [address], [facility] STMA [facility] [address] [place] [address] * (ABNORMAL) Blood Gas with Coox, Arterial (08/07/2023 11:04 PM CDT) pO2 67(L) 83 - 108 mm Hg 08/07/2023 11:10 PM CDT STMA pCO2 43 32 - 45 mm Hg 08/07/2023 11:10 PM CDT STMA pH 7.34(L) 7.35 - 7.45 pH 08/07/2023 11:10 PM CDT STMA Base Excess -3(L) -2 - 3 mmol/L 08/07/2023 11:10 PM CDT STMA HCO3 23 22 - 26 mmol/L 08/07/2023 11:10 PM CDT STMA Hemoglobin, Venous 9.5(L) 11.6 - 15.0 g/dL 08/07/2023 11:10 PM CDT STMA O2Hb 90.6(L) 94.0 - 98.0 % 08/07/2023 11:10 PM CDT STMA COHb 2.1 <3.0 % 08/07/2023 11:10 PM CDT STMA MetHb <1.0 <1.5 % 08/07/2023 11:10 PM CDT STMA CtO2 12.2(L) 18.0 - 21.0 vol % 08/07/2023 11:10 PM CDT STMA Arterial Sample Site Art Line 08/07/2023 11:07 PM CDT STMA Comment:Juvenal's test not don e. Blood (Blood, Arterial) 08/07/2023 11:04 PM CDT 08/07/2023 11:07 PM CDT Kaitlynn Ko APRN, C.N.P., D.N.P. LAB BLOOD NO N ADD-ON Final Result Performing Organization Address City/[facility]/ZIP Co de Phone Number [facility] [address] [place] [address], [facility] [address] [place] [address] * Transfuse Red Blood Cells : (08/07/2023 10:06 PM CDT) Bon Manuel Jr., JOHNSON, C.N.P., M.S.N. BLOOD TR ANSFUSION ORDERABLES Final Result * Transfuse Red Blood Cells : , 1 Units (08/07/2023 10:06 PM CDT) Bon Manuel Jr., JOHNSON C.N.P., M.S.N. BLOOD TR ANSFUSION ORDERABLES Final Result * Patient Status (08/07/2023 8:45 PM CDT) Pathologist [facility] FIO2 1.00 0.21=AIR 08/07/2023 8:4 5 PM CDT STMA Blood 08/07/2023 8:4 5 PM CDT 08/07/2023 8:45 PM CDT Armani Quispe WATER FILTERER, [employer] SUPERVISOR, DNAP LAB BLOOD NON A DD-ON Final Result Performing Organization Address City/[facility]/ZIP Co de Phone Number [facility] [address] [place] [address], [facility] [address] [place] [address] * Lactate, B - Intra-op (08/07/2023 8:45 PM CDT) [facility] Lactate, B 1.1 0.5 - 2.2 mmol/L 08/07/2023 8:48 PM CDT STMA Blood (Blood, Venous) 08/07/2023 8:45 PM CDT 08/07/2023 8:45 PM CDT Nba Ramírez M.D. LAB BLOOD NON ADD-ON Fin al Result Performing Organization Address City/[facility]/ZIP Co de Phone Number [facility] [address] [place] [address], [facility] [address] [place] [address] * (ABNORMAL) Glucose, Whole Blood (08/07/2023 8:45 PM CDT) Glucose 174(H) 70 - 140 mg/dL 08/07/2023 8:48 PM CDT STMA Blood (Blood, Arterial Line) 08/07/2023 8:45 PM CDT 08/07/2023 8:45 PM CDT Nba Ramírez M.D. LAB BLOOD ADD-ON Final R esult Performing Organization Address City/[facility]/ZIP Co de Phone Number [facility] [address] [place] [address], [facility] [address] [place] [address] * Potassium, Blood (08/07/2023 8:45 PM CDT) Potassium, B 3.7 3.6 - 5.2 mmol/L 08/07/2023 8:49 PM CDT STMA Blood (Blood, Arterial Line) 08/07/2023 8:45 PM CDT 08/07/2023 8:45 PM CDT Nba Ramírez M.D. LAB BLOOD NON ADD-ON Fin al Result Performing Organization Address City/[facility]/ZIP Co de Phone Number [facility] [address] [place] [address], [facility] [address] [place] [address] * Sodium, B (08/07/2023 8:45 PM CDT) Sodium, B 136 135 - 145 mmol/L 08/07/2023 8:48 PM CDT STMA Blood (Blood, Arterial Line) 08/07/2023 8:45 PM CDT 08/07/2023 8:45 PM CDT Nba Ramírez M.D. LAB BLOOD NON ADD-ON Fin al Result Performing Organization Address [facility] Co de Phone Number [facility] [address] [place] [address] * (ABNORMAL) Calcium, Ionized (08/07/2023 8:45 PM CDT) Calcium, Ionized, B 5.51(H) 4.65 - 5.30 mg/dL 08/07/2023 8:49 PM CDT STMA Blood (Blood, Arterial Line) 08/07/2023 8:45 PM CDT 08/07/2023 8:45 PM CDT Nba Ramírez M.D. LAB BLOOD NON ADD-ON Fin al Result Performing Organization Address [facility] Co de Phone Number [facility] [address] [place] [address] * (ABNORMAL) Blood Gas with Coox, Arterial (08/07/2023 8:45 PM CDT) pO2 223(H) 83 - 108 mm Hg 08/07/2023 8:48 PM CDT STMA pCO2 40 32 - 45 mm Hg 08/07/2023 8:48 PM CDT STMA pH 7.35 7.35 - 7.45 pH 08/07/2023 8:48 PM CDT STMA Base Excess -3(L) -2 - 3 mmol/L 08/07/2023 8:48 PM CDT STMA HCO3 22 22 - 26 mmol/L 08/07/2023 8:48 PM CDT STMA Hemoglobin, Venous 8.9(L) 11.6 - 15.0 g/dL 08/07/2023 8:48 PM CDT STMA O2Hb 96.8 94.0 - 98.0 % 08/07/2023 8:48 PM CDT STMA COHb 2.1 <3.0 % 08/07/2023 8:48 PM CDT STMA MetHb <1.0 <1.5 % 08/07/2023 8:48 PM CDT STMA CtO2 12.6(L) 18.0 - 21.0 vol % 08/07/2023 8:48 PM CDT STMA Blood (Blood, Arterial Line) 08/07/2023 8:45 PM CDT 08/07/2023 8:45 PM CDT Nba Ramírez M.D. LAB BLOOD NON ADD-ON Fin al Result Performing Organization Address [facility] de Phone Number [facility] [address] [place] [address] * Prothrombin Time (PT) (08/07/2023 8:43 PM CDT) Prothrombin Time, P 12.5 9.4 - 12.5 sec 08/07/2023 8:54 PM CDT STMA INR 1.1 0.9 - 1.1 08/07/2023 8:54 PM CDT STMA Comment: ----ADDITIONAL INFORMATION---- Standard intensity warfarin therapeutic range: 2.0 to 3.0 High intensity warfarin therapeutic range: 2.5 to 3.5 Blood (Blood, Arterial Line) 08/07/2023 8:43 PM CDT 08/07/2023 8:43 PM CDT Nba Ramírez M.D. LAB BLOOD ADD-ON Final R esult Performing Organization Address [facility] Co de Phone Number [facility] [address] [place], [place] [address] [place] [address] [address] [place] [address] * (ABNORMAL) Platelet Count (08/07/2023 8:43 PM CDT) Pathologist [facility] Platelet Count 147(L) 157 - 371 x10(9)/L 08/07/2023 8:48 PM CDT STMA Blood (Blood, Arterial Line) 08/07/2023 8:43 PM CDT 08/07/2023 8:43 PM CDT Nba Ramírez M.D. LAB BLOOD ADD-ON Final R esult Performing Organization Address [facility]/ZIP Co de Phone Number [facility] [address] [place] [address], [facility] [address] [place] [address] * Fibrinogen (08/07/2023 8:43 PM CDT) [facility] Fibrinogen, P 264 200 - 393 mg/dL 08/07/2023 8:54 PM CDT STMA Blood (Blood, Arterial Line) 08/07/2023 8:43 PM CDT 08/07/2023 8:43 PM CDT Nba Ramírez M.D. LAB BLOOD ADD-ON [facility] Performing Organization Address [facility] Co de Phone Number [facility] [address] [place] [address], [facility] [address] [place] [address] * APTT (Activated Partial Thromboplastin Time) (08/07/2023 8:43 PM CDT) [facility] Activated Partial Thrombopl Time, P 27 25 - 37 sec 08/07/2023 8:57 PM CDT [facility] Blood (Blood, Arterial Line) 08/07/2023 8:43 PM CDT 08/07/2023 8:43 PM CDT Nba Ramírez M.D. LAB BLOOD ADD-ON Final R esult Performing Organization Address City/[facility]/ZIP Co de Phone Number [facility] [address] [place] [address], [facility] STMA [facility] [address] [place] [address] * ACT (Activated Clotting Time), POCT (08/07/2023 8:38 PM CDT) Activated Clotting Time 138 82 - 152 sec 08/07/2023 8:41 PM CDT PCLX 08/07/2023 8:38 PM CDT 08/07/2023 8:41 PM CDT us Unknown Provider LAB POCT ORDERABLES - DEVICE Fi nal Result Performing Organization Address [facility] Co de Phone Number POC [facility] [address] [place] [address], [facility] PCLX [facility] [address] [place] [address] * Thromboelastograph, Kaolin + Heparinase (08/07/2023 7:18 PM CDT) R-Heparinase, TEG 5.8 1.9 - 6.5 min 08/07/2023 8:36 PM CDT [facility] K-Heparinase, TEG 1.2 0.9 - 1.8 min 08/07/2023 8:36 PM CDT [facility] Angle-Heparina se, TEG 73.7 65.5 - 77.1 degrees 08/07/2023 8:36 PM CDT [facility] MA-Heparinase, TEG 64.0 58.2 - 76.2 mm 08/07/2023 8:36 PM CDT [facility] Ek24-Ptlhhypgt e, TEG 0.1 0.0 - 4.7 % 08/07/2023 8:36 PM CDT [facility] Ec49-Lqbnsmdcy e, TEG 1.9 0.0 - 15.0 % 08/07/2023 8:36 PM CDT [facility] Blood (Blood, Arterial) 08/07/2023 7:18 PM CDT 08/07/2023 7:18 PM CDT us Reza Hughes APRNN.PHomero, DemetrisNHomeroPHomero LAB BLOOD NON ADD-ON Final Result Performing Organization Address City/[facility] Co de Phone Number [facility] [address] [place] [address] * Fibrinogen (08/07/2023 7:10 PM CDT) Pathologist [facility] Fibrinogen, P 288 200 - 393 mg/dL 08/07/2023 7:27 PM CDT [facility] Blood (Blood, Venous) 08/07/2023 7:10 PM CDT 08/07/2023 7:15 PM CDT Bon Manuel Jr., APRN, C.N.P., M.S.N. LAB BLOO D ADD-ON Final Result Performing Organization Address [facility] Co de Phone Number [facility] [address] [place] [address] * Prothrombin Time (PT) (08/07/2023 7:10 PM CDT) Pathologist [facility] Prothrombin Time, P 11.7 9.4 - 12.5 sec 08/07/2023 7:28 PM CDT [facility] 1.1 0.9 - 1.1 08/07/2023 7:28 PM CDT [facility] Comment: ----ADDITIONAL INFORMATION---- Standard intensity warfarin therapeutic range: 2.0 to 3.0 High intensity warfarin therapeutic range: 2.5 to 3.5 Blood (Blood, Venous) 08/07/2023 7:10 PM CDT 08/07/2023 7:15 PM CDT Bon Manuel Jr., JOHNSON C.N.P., M.S.N. LAB BLOO D ADD-ON Final Result Performing Organization Address City/[facility] Co de Phone Number [facility] [address] [place] [address], [facility] STMA [facility] [address] [place] [address] * (ABNORMAL) CBC without Differential (08/07/2023 7:10 PM CDT) Pathologist [facility] Hemoglobin 8.1(L) 11.6 - 15.0 g/dL 08/07/2023 7:19 PM CDT STMA Hematocrit 23.9(L) 35.5 - 44.9 % 08/07/2023 7:19 PM CDT [facility] Erythrocytes 2.51(L) 3.92 - 5.13 x10(12)/L 08/07/2023 7:19 PM CDT [facility] MCV 95.2 78.2 - 97.9 fL 08/07/2023 7:19 PM CDT [facility] RBC Distrib Width 16.8(H) 12.2 - 16.1 % 08/07/2023 7:19 PM CDT [facility] Platelet Count 166 157 - 371 x10(9)/L 08/07/2023 7:19 PM CDT [facility] Leukocytes 13.1(H) 3.4 - 9.6 x10(9)/L 08/07/2023 7:19 PM CDT [facility] Blood (Blood, Venous) 08/07/2023 7:10 PM CDT 08/07/2023 7:15 PM CDT Bon Manuel Jr., WATER FILTERER, C.N.P., M.S.N. LAB BLOO D ADD-ON Final Result [facility] [address] [place] [address], [facility] [address] [place] [address] * APTT (Activated Partial Thromboplastin Time) (08/07/2023 7:10 PM CDT) [facility] Activated Partial Thrombopl Time, P 28 25 - 37 sec 08/07/2023 7:30 PM CDT [facility] Blood (Blood, Venous) 08/07/2023 7:10 PM CDT 08/07/2023 7:15 PM CDT us Bon Manuel Jr., JOHNSON, C.N.P., M.S.N. LAB BLOO D ADD-ON Final Result [facility] [address] [place] [address], [facility] [address] [place] [address] * DX Chest Portable 1 View (08/07/2023 7:03 PM CDT) Anatomical Region Laterality Modality Chest, Thoracic RST LOS, Tho racic ARZ LOS, Thoracic FLA LOS N/A Digital Radiography Impressions 08/07/2023 8:52 PM CDT Since earlier today at 1732, decreased opacities in the right lateral midlung with slightly decreased size of probable loculated small right pleural effusion. Remainder of exam not significant changed. Postoperative changes of mitral valve replacement. Bibasilar and perihilar atelectasis. Shallow inspiration accentuates the cardiac silhouette. Aortic calcification. Pericardial mediastinal drain. Right IJ CVC with tip projecting over the distal SVC. Right apically pointing pleural chest tube. Stable trace subcutaneous emphysema projects over the right lateral chest wall. Narrative 08/07/2023 8:52 PM CDT EXAM: DX CHEST PORTABLE 1 VIEW Procedure Note Rocky Mcduffie M.D. - 08/07/2023 EXAM: DX CHEST PORTABLE 1 VIEW IMPRESSION: Since earlier today at 1732, decreased opacities in the right lateralmidlung with slightly decreased size of probable loculated small rightpleural effusion. Remainder of exam not significant changed. Postoperative changes of mitral valve replacement. Bibasilar and perihilaratelectasis. Shallow inspiration accentuates the cardiac silhouette.Aortic calcification. Pericardial mediastinal drain. Right IJ CVC with tipprojecting over the distal SVC. Right apically pointing pleural chest tube. Stable trace subcutaneousemphysema projects over the right lateral chest wall. us Bon Manuel Jr., JOHNSON, C.N .P., M.S.N. IMG DIAGNOSTIC IMAGING PROCEDURES Final Result * DX Chest Portable 1 View (08/07/2023 5:40 PM CDT) Anatomical Region Laterality Modality Chest, Thoracic RST LOS, Tho racic ARZ LOS, Thoracic FLA LOS N/A Digital Radiography Impressions 08/07/2023 9:57 PM CDT Since earlier today at 1428, new opacities in the right lateral midlung may represent consolidation. Slightly increased size of probable partially loculated small right pleural effusion. New trace subcutaneous emphysema over the right lateral chest wall. Remainder of exam not significantly changed. Postsurgical changes of mitral valve replacement. Shallow inspiration accentuates the cardiac silhouette. Aortic calcification. Pericardial mediastinal drain. Right IJ CVC with tip projecting over the distal SVC. Right apically directed pleural chest tube. No definite pneumothorax. Narrative 08/07/2023 9:57 PM CDT EXAM: DX CHEST PORTABLE 1 VIEW Procedure Note Rocky Mcduffie M.D. - 08/07/2023 EXAM: DX CHEST PORTABLE 1 VIEW IMPRESSION: Since earlier today at 1428, new opacities in the right lateral midlungmay represent consolidation. Slightly increased size of probable partiallyloculated small right pleural effusion. New trace subcutaneous emphysemaover the right lateral chest wall. Remainder of exam not significantly changed. Postsurgical changes of mitral valve replacement. Shallow inspirationaccentuates the cardiac silhouette. Aortic calcification. Pericardialmediastinal drain. Right IJ CVC with tip projecting over the distal SVC.Right apically directed pleural chest tube. No definite pneumothorax. Yennifer Kennedy APRN, C.N.P., D.N.P. IMG DIAGNOSTIC IMAGING PROCEDURES Final Result * Potassium (08/07/2023 5:21 PM CDT) [facility] Potassium, P 4.4 3.6 - 5.2 mmol/L 08/07/2023 5:45 PM CDT [facility] Blood (Blood, Venous) 08/07/2023 5:21 PM CDT 08/07/2023 5:32 PM CDT us Bon Manuel Jr., JOHNSON, C.N.P., M.S.N. LAB BLOO D ADD-ON Final Result Performing Organization Address [facility] de Phone Number [facility] [address] STMA [facility] 200 [place] [address] * (ABNORMAL) Glucose, POCT (08/07/2023 5:16 PM CDT) Glucose, POCT, B 162(H) 70 - 140 mg/dL 08/07/2023 5:24 PM CDT PCLX Site ARTLINE 08/07/2023 5:24 PM CDT PCLX Blood 08/07/2023 5:16 PM CDT 08/07/2023 5:24 PM CDT Unknown Provider LAB POCT ORDERABLES-MANUAL Rosmery l Result Performing Organization Address [facility] de Phone Number POC [facility] [address] PCLX [facility] [address] [place] [address] * Prothrombin Time (PT) (08/07/2023 5:16 PM CDT) Prothrombin Time, P 12.3 9.4 - 12.5 sec 08/07/2023 5:43 PM CDT [facility] INR 1.1 0.9 - 1.1 08/07/2023 5:43 PM CDT [facility] Comment: ----ADDITIONAL INFORMATION---- Standard intensity warfarin therapeutic range: 2.0 to 3.0 High intensity warfarin therapeutic range: 2.5 to 3.5 Blood (Blood, Arterial) 08/07/2023 5:16 PM CDT 08/07/2023 5:32 PM CDT us Yennifer B Kennedy WATER FILTERER, C.N.P., D.N.P. LAB BLOOD ADD- ON Final Result [facility] [address] [place] [address] * Fibrinogen (08/07/2023 5:16 PM CDT) Pathologist [facility] Fibrinogen, P 280 200 - 393 mg/dL 08/07/2023 5:42 PM CDT [facility] Blood (Blood, Arterial) 08/07/2023 5:16 PM CDT 08/07/2023 5:32 PM CDT Yennifer Kennedy APRN, C.N.P., D.N.P. LAB BLOOD ADD- ON Final Result Performing Organization Address City/[facility] Co de Phone Number [facility] 200 [place] [address], [facility] 200 [place] [address] * (ABNORMAL) CBC with Differential, Blood (08/07/2023 5:16 PM CDT) [facility] Hemoglobin 8.6(L) 11.6 - 15.0 g/dL 08/07/2023 5:38 PM CDT [facility] Hematocrit 25.6(L) 35.5 - 44.9 % 08/07/2023 5:38 PM CDT [facility] Erythrocytes 2.68(L) 3.92 - 5.13 x10(12)/L 08/07/2023 5:38 PM CDT [facility] MCV 95.5 78.2 - 97.9 fL 08/07/2023 5:38 PM CDT [facility] RBC Distrib Width 16.4(H) 12.2 - 16.1 % 08/07/2023 5:38 PM CDT [facility] Platelet Count 163 157 - 371 x10(9)/L 08/07/2023 5:38 PM CDT [facility] Leukocytes 12.9(H) 3.4 - 9.6 x10(9)/L 08/07/2023 5:38 PM CDT [facility] Neutrophils 11.93(H) 1.56 - 6.45 x10(9)/L 08/07/2023 5:38 PM CDT [facility] Lymphocytes 0.39(L) 0.95 - 3.07 x10(9)/L 08/07/2023 5:38 PM CDT [facility] Monocytes 0.52 0.26 - 0.81 x10(9)/L 08/07/2023 5:38 PM CDT [facility] Eosinophils <0.03 0.03 - 0.48 x10(9)/L 08/07/2023 5:38 PM CDT [facility] Basophils 0.04 0.01 - 0.08 x10(9)/L 08/07/2023 5:38 PM CDT [facility] Blood (Blood, Venous) 08/07/2023 5:16 PM CDT 08/07/2023 5:32 PM CDT Yennifer Kennedy APRN, C.N.P., D.N.P. LAB BLOOD ADD- ON Final Result [facility] [address] [place] [address], [facility] STMA [facility] [address] [place] [address] [facility] [address] [place] [address] * Transfuse Fresh Frozen Plasma :Bleeding with altered coagulation; 180 mL/hr (08/07/2023 4:27 PM CDT) Result [facility] Yennifer Kennedy APRN, C.N.P., D.N.P. BLOOD TRANSFUS ION ORDERABLES Final Result * Transfuse Fresh Frozen Plasma :Bleeding with altered coagulation; 180 mL/hr, 2 Units (08/07/2023 4:27 PM CDT) Result Nicolas Kennedy APRN, C.N.P., D.N.P. BLOOD TRANSFUS ION ORDERABLES Final Result * Transfuse Red Blood Cells : (08/07/2023 4:27 PM CDT) Result Nicolas Kennedy APRN, C.N.P., D.N.P. BLOOD TRANSFUS ION ORDERABLES Final Result * Transfuse Red Blood Cells : , 1 Units (08/07/2023 4:27 PM CDT) Yennifer Gunter Brent ORNELAS, C.N.P., D.N.P. BLOOD TRANSFUS ION ORDERABLES Final Result * Transfuse Fresh Frozen Plasma :Bleeding with altered coagulation; 180 mL/hr (08/07/2023 3:21 PM CDT) Yennifer Jani Kennedy APRN, C.N.P., D.N.P. BLOOD TRANSFUS ION ORDERABLES Final Result * DX Chest Portable 1 View (08/07/2023 2:34 PM CDT) Anatomical Region Laterality Modality Chest, Thoracic RST LOS, Tho racic ARZ LOS, Thoracic FLA LOS N/A Digital Radiography Impressions 08/07/2023 2:43 PM CDT Since 08/03/2023, new postsurgical changes of mitral valve replacement. Bibasilar and perihilar atelectasis. Probable partially loculated small right pleural effusion with associated atelectasis in the right lung. Shallow inspiration accentuates the cardiac silhouette. Aortic calcification. Pericardial mediastinal drain. Right IJ CVC with its tip projecting over the distal SVC. Right apically pointing pleural chest tube. Narrative 08/07/2023 2:43 PM CDT EXAM: DX CHEST PORTABLE 1 VIEW Procedure Note Zoey Woody M.D. - 08/07/2023 EXAM: DX CHEST PORTABLE 1 VIEW IMPRESSION: Since 08/03/2023, new postsurgical changes of mitral valve replacement.Bibasilar and perihilar atelectasis. Probable partially loculated smallright pleural effusion with associated atelectasis in the right lung.Shallow inspiration accentuates the cardiac silhouette. Aortic calcification. Pericardialmediastinal drain. Right IJ CVC with its tip projecting over the distalSVC. Right apically pointing pleural chest tube. Result [facility] Tristian Kamara, B.Ch., B.A.O. IMG DIAGNOS TIC IMAGING PROCEDURES Final Result * ECG 12 Lead (08/07/2023 2:16 PM CDT) Ventricular Rate ECG/Min 76 BPM MUSE ME Interval 218 ms MUSE QRSD Interval 86 ms MUSE QT Interval 450 ms MUSE QTC Interval 506 ms MUSE P [place] 83 degrees MUSE R [place] 60 degrees MUSE T Wave [place] 86 degrees MUSE 08/07/2023 2:16 PM CDT 08/07/2023 2:19 PM CDT Impressions MUSE - 08/07/2023 2:19 PM CDT Sinus rhythm with 1st degree A-V block ST and T wave abnormality, consider anterolateral ischemia Prolonged QT When compared with ECG of 03-AUG-2023 09:43, Minimal criteria for Anterior infarct are no longer present T wave inversion no longer evident in Inferior leads T wave inversion now evident in Lateral leads QT has lengthened Reviewed by KEVIN Irizarry Narrative Procedure Note Jim Mcdowell M.D., Ph.D. - 08/07/2023 IMPRESSION: Sinus rhythm with 1st degree A-V block ST and T wave abnormality, consider anterolateral ischemia Prolonged QT When compared with ECG of 03-AUG-2023 09:43, Minimal criteria for Anterior infarct are no longer present T wave inversion no longer evident in Inferior leads T wave inversion now evident in Lateral leads QT has lengthened Reviewed by KEVIN Irizarry us Tristian Kamara, B.Ch., B.A.O. ECG ORDERAB LES Final Result MUSE NA * Patient Status (08/07/2023 2:07 PM CDT) FIO2 0.21 0.21=AIR 08/07/2023 2:10 PM CDT [facility] Spont. breaths/min 18 08/07/2023 2:10 PM CDT [facility] Blood 08/07/2023 2:07 PM CDT 08/07/2023 2:10 PM CDT Tristian Kamara, B.Ch., B.A.O. LAB BLOOD N ON ADD-ON Final Result [facility] [address] [place] [address] * Lactate, Whole Blood (08/07/2023 2:07 PM CDT) Lactate, B 0.7 0.5 - 2.2 mmol/L 08/07/2023 2:13 PM CDT [facility] Blood (Blood, Arterial) 08/07/2023 2:07 PM CDT 08/07/2023 2:10 PM CDT Tristian Kamara, B.Ch., B.A.O. LAB BLOOD N ON ADD-ON Final Result Performing Organization Address [facility] Co de Phone Number [facility] [address] [place], [place] [address] [place] [address] 200 [place] [address] * (ABNORMAL) Calcium, Ionized (08/07/2023 2:07 PM CDT) Calcium, Ionized, B 4.61(L) 4.65 - 5.30 mg/dL 08/07/2023 2:14 PM CDT [facility] Blood (Blood, Arterial) 08/07/2023 2:07 PM CDT 08/07/2023 2:10 PM CDT Tristian Kamara, Jani.Ch., B.A.O. LAB BLOOD N ON ADD-ON Final Result Performing Organization Address City/[facility]/ZIP Co de Phone Number [facility] [address] [place] [address] [place] [address] * (ABNORMAL) Blood Gas with Coox, Arterial (08/07/2023 2:07 PM CDT) pO2 69(L) 83 - 108 mm Hg 08/07/2023 2:13 PM CDT [facility] pCO2 41 32 - 45 mm Hg 08/07/2023 2:13 PM CDT [facility] pH 7.38 7.35 - 7.45 pH 08/07/2023 2:13 PM CDT [facility] Base Excess -1 -2 - 3 mmol/L 08/07/2023 2:13 PM CDT [facility] HCO3 25 22 - 26 mmol/L 08/07/2023 2:13 PM CDT [facility] Hemoglobin, Venous 10.2(L) 11.6 - 15.0 g/dL 08/07/2023 2:13 PM CDT [facility] O2Hb 91.9(L) 94.0 - 98.0 % 08/07/2023 2:13 PM CDT [facility] COHb 1.8 <3.0 % 08/07/2023 2:13 PM CDT [facility] MetHb <1.0 <1.5 % 08/07/2023 2:13 PM CDT [facility] CtO2 13.2(L) 18.0 - 21.0 vol % 08/07/2023 2:13 PM CDT [facility] Arterial Sample Site Art Line 08/07/2023 2:10 PM CDT [facility] Blood (Blood, Arterial) 08/07/2023 2:07 PM CDT 08/07/2023 2:10 PM CDT us Tristian Kamara, B.Ch., B.A.O. LAB BLOOD N ON ADD-ON Final Result [facility] [address] [place] [address], [place] [facility] [address] [place] [address] * (ABNORMAL) Glucose, POCT (08/07/2023 2:06 PM CDT) [facility] Glucose, POCT, B 152(H) 70 - 140 mg/dL 08/07/2023 2:40 PM CDT PCLX Blood 08/07/2023 2:06 PM CDT 08/07/2023 2:41 PM CDT Unknown Provider LAB POCT ORDERABLES-MANUAL Rosmery l Result Performing Organization Address City/[facility]/ZIP Co de Phone Number POC [facility] 200 [place] [address], [facility] PCLX [facility] POC 200 [place] [address] * Fibrinogen (08/07/2023 2:06 PM CDT) [facility] Fibrinogen, P 312 200 - 393 mg/dL 08/07/2023 2:22 PM CDT [facility] Blood (Blood, Venous) 08/07/2023 2:06 PM CDT 08/07/2023 2:10 PM CDT Tristian Kamara, B.Ch., B.A.O. LAB BLOOD A DD-ON Final Result Performing Organization Address City/[facility] Co de Phone Number [facility] 200 [place] [address], [facility] STMA [facility] 200 [place] [address] * (ABNORMAL) Prothrombin Time (PT) (08/07/2023 2:06 PM CDT) [facility] Prothrombin Time, P 13.1(H) 9.4 - 12.5 sec 08/07/2023 2:22 PM CDT [facility] INR 1.2 0.9 - 1.1 08/07/2023 2:22 PM CDT [facility] Comment: ----ADDITIONAL INFORMATION---- Standard intensity warfarin therapeutic range: 2.0 to 3.0 High intensity warfarin therapeutic range: 2.5 to 3.5 Blood (Blood, Venous) 08/07/2023 2:06 PM CDT 08/07/2023 2:10 PM CDT us Tristian Kamara, MuCh., B.A.O. LAB BLOOD A DD-ON Final Result Performing Organization Address [facility] Co de Phone Number [facility] [address] [place] [address] * APTT (Activated Partial Thromboplastin Time) (08/07/2023 2:06 PM CDT) Pathologist [facility] Activated Partial Thrombopl Time, P 31 25 - 37 sec 08/07/2023 2:30 PM CDT [facility] Blood (Blood, Venous) 08/07/2023 2:06 PM CDT 08/07/2023 2:10 PM CDT us Tristian Kamara, MuCh., B.A.O. LAB BLOOD A DD-ON Final Result Performing Organization Address [facility] Co de Phone Number [facility] [address] [place] [address] * (ABNORMAL) CBC without Differential (08/07/2023 2:06 PM CDT) Pathologist [facility] Hemoglobin 10.0(L) 11.6 - 15.0 g/dL 08/07/2023 2:14 PM CDT [facility] Hematocrit 29.1(L) 35.5 - 44.9 % 08/07/2023 2:14 PM CDT [facility] Erythrocytes 2.99(L) 3.92 - 5.13 x10(12)/L 08/07/2023 2:14 PM CDT [facility] MCV 97.3 78.2 - 97.9 fL 08/07/2023 2:14 PM CDT ST[facility] RBC Distrib Width 15.4 12.2 - 16.1 % 08/07/2023 2:14 PM CDT [facility] Platelet Count 150(L) 157 - 371 x10(9)/L 08/07/2023 2:14 PM CDT [facility] Leukocytes 12.8(H) 3.4 - 9.6 x10(9)/L 08/07/2023 2:14 PM CDT [facility] Blood (Blood, Venous) 08/07/2023 2:06 PM CDT 08/07/2023 2:10 PM CDT Tristian Kamara, B.Ch., B.A.O. LAB BLOOD A DD-ON Final Result [facility] [address] [place] [address], [facility] STMA [facility] [address] [place] [address] * (ABNORMAL) Basic Metabolic Panel (08/07/2023 2:06 PM CDT) Potassium, P 3.2(L) 3.6 - 5.2 mmol/L 08/07/2023 2:27 PM CDT ST[facility] Sodium, P 136 135 - 145 mmol/L 08/07/2023 2:27 PM CDT [facility] Chloride, P 98 98 - 107 mmol/L 08/07/2023 2:27 PM CDT [facility] Bicarbonate, P 23 22 - 29 mmol/L 08/07/2023 2:27 PM CDT [facility] Anion Gap, P 15 7 - 15 08/07/2023 2:27 PM CDT [facility] BUN (Blood Urea Nitrogen), P 7 6 - 21 mg/dL 08/07/2023 2:27 PM CDT [facility] Creatinine 0.44(L) 0.59 - 1.04 mg/dL 08/07/2023 2:27 PM CDT [facility] Estimated GFR (eGFR) >90 >=60 mL/min/BSA 08/07/2023 2:27 PM CDT [facility] Comment: Estimated GFR calculated using the 2020 CKD_EPI creatinine equation. Calcium, Total, P 8.5(L) 8.8 - 10.2 mg/dL 08/07/2023 2:27 PM CDT [facility] Glucose, P 155(H) 70 - 140 mg/dL 08/07/2023 2:27 PM CDT [facility] Blood (Blood, Venous) 08/07/2023 2:06 PM CDT 08/07/2023 2:10 PM CDT Result [facility] Tristian Kamara, B.Ch., B.A.O. LAB BLOOD A DD-ON Final Result Performing Organization Address City/[facility]/ZIP Co de Phone Number [facility] [address] [place] [address], [facility] 200 [place] [address] * Transfuse Platelets : (08/07/2023 1:38 PM CDT) Result [facility] Yaritza Culver M.D., Ph.D. BLOOD TRANSFUSION ORDER VONNIE Final Result * Transfuse Platelets : (08/07/2023 1:14 PM CDT) Result [facility] Yaritza Culver M.D., Ph.D. BLOOD TRANSFUSION ORDER VONNIE Final Result * Lactate, B - Intra-op (08/07/2023 12:45 PM CDT) Pathologist [facility] Lactate, B 0.6 0.5 - 2.2 mmol/L 08/07/2023 12:47 PM CDT [facility] Blood (Blood, Venous) 08/07/2023 12:45 PM CDT 08/07/2023 12:45 PM CDT Result [facility] Yaritza Culver M.D., Ph.D. LAB BLOOD NON ADD-ON Fi nal Result Performing Organization Address City/[facility]/ZIP Co de Phone Number [facility] [address] [place] [address], [facility] 200 [place] [address] * Glucose, Whole Blood (08/07/2023 12:45 PM CDT) Glucose 133 70 - 140 mg/dL 08/07/2023 12:47 PM CDT [facility] Blood (Blood, Arterial Line) 08/07/2023 12:45 PM CDT 08/07/2023 12:45 PM CDT us Yaritza Culver M.D., Ph.D. LAB BLOOD ADD-ON Final Result Performing Organization Address City/[facility]/ZIP Co de Phone Number [facility] [address] [place] [address] * (ABNORMAL) Potassium, Blood (08/07/2023 12:45 PM CDT) Potassium, B 3.1(L) 3.6 - 5.2 mmol/L 08/07/2023 12:47 PM CDT [facility] Blood (Blood, Arterial Line) 08/07/2023 12:45 PM CDT 08/07/2023 12:45 PM CDT Result [facility] us Yaritza Culver M.D., Ph.D. LAB BLOOD NON ADD-ON Fi nal Result Performing Organization Address [facility] Co de Phone Number [facility] [address] [place] [address] * Sodium, B (08/07/2023 12:45 PM CDT) Sodium, B 136 135 - 145 mmol/L 08/07/2023 12:47 PM CDT [facility] Blood (Blood, Arterial Line) 08/07/2023 12:45 PM CDT 08/07/2023 12:45 PM CDT us Yaritza Culver M.D., Ph.D. LAB BLOOD NON ADD-ON Fi nal Result Performing Organization Address City/[facility]/ZIP Co de Phone Number [facility] [address] [place] [address] [place] [address] * Calcium, Ionized (08/07/2023 12:45 PM CDT) Pathologist [facility] Calcium, Ionized, B 4.68 4.65 - 5.30 mg/dL 08/07/2023 12:47 PM CDT [facility] Blood (Blood, Arterial Line) 08/07/2023 12:45 PM CDT 08/07/2023 12:45 PM CDT us Yaritza Culver M.D., Ph.D. LAB BLOOD NON ADD-ON Fi nal Result [facility] 200 [place] [address], [facility] 200 [place] [address] * (ABNORMAL) Blood Gas with Coox, Arterial (08/07/2023 12:45 PM CDT) Pathologist [facility] pO2 237(H) 83 - 108 mm Hg 08/07/2023 12:47 PM CDT ST[facility] pCO2 36 32 - 45 mm Hg 08/07/2023 12:47 PM CDT [facility] pH 7.42 7.35 - 7.45 pH 08/07/2023 12:47 PM CDT [facility] Base Excess -1 -2 - 3 mmol/L 08/07/2023 12:47 PM CDT [facility] HCO3 23 22 - 26 mmol/L 08/07/2023 12:47 PM CDT [facility] Hemoglobin, Venous 10.0(L) 11.6 - 15.0 g/dL 08/07/2023 12:47 PM CDT [facility] O2Hb 98.7(H) 94.0 - 98.0 % 08/07/2023 12:47 PM CDT [facility] COHb 1.9 <3.0 % 08/07/2023 12:47 PM CDT [facility] MetHb <1.0 <1.5 % 08/07/2023 12:47 PM CDT [facility] CtO2 14.3(L) 18.0 - 21.0 vol % 08/07/2023 12:47 PM CDT [facility] Blood (Blood, Arterial Line) 08/07/2023 12:45 PM CDT 08/07/2023 12:45 PM CDT Result [facility] Yaritza Culver M.D., Ph.D. LAB BLOOD NON ADD-ON Fi nal Result Performing Organization Address City/[facility] Co de Phone Number [facility] [address] [place] [address], [facility] [address] [place] [address] * Transfuse autologous RBC (Cell Salvage) : (08/07/2023 12:42 PM CDT) Result [facility] Yaritza Culver M.D., Ph.D. BLOOD TRANSFUSION ORDER VONNIE Final Result * (ABNORMAL) Platelet Count (08/07/2023 12:03 PM CDT) [facility] Platelet Count 80(L) 157 - 371 x10(9)/L 08/07/2023 12:13 PM [facility]T [facility] (Blood, Arterial Line) 08/07/2023 12:03 PM CDT 08/07/2023 12:03 PM CDT Result [facility] Yaritza Culver M.D., Ph.D. LAB BLOOD ADD-ON Final Result Performing Organization Address City/[facility] Co de Phone Number [facility] [address] [place] [address], [facility] [address] [place], [place] [id number] * (ABNORMAL) Prothrombin Time (PT) (08/07/2023 12:03 PM CDT) Pathologist [facility] Prothrombin Time, P 16.6(H) 9.4 - 12.5 sec 08/07/2023 12:19 PM CDT [facility] INR 1.5 0.9 - 1.1 08/07/2023 12:19 PM CDT [facility] Comment: ----ADDITIONAL INFORMATION---- Standard intensity warfarin therapeutic range: 2.0 to 3.0 High intensity warfarin therapeutic range: 2.5 to 3.5 Blood (Blood, Arterial Line) 08/07/2023 12:03 PM CDT 08/07/2023 12:03 PM CDT Yaritza Culver M.D., Ph.D. LAB BLOOD ADD-ON Final Result Performing Organization Address City/[facility]/ZIP Co de Phone Number [facility] [address] [place] [address], [facility] [address] [place] [address] * Fibrinogen (08/07/2023 12:03 PM CDT) Pathologist [facility] Fibrinogen, P 284 200 - 393 mg/dL 08/07/2023 12:18 PM CDT [facility] Blood (Blood, Arterial Line) 08/07/2023 12:03 PM CDT 08/07/2023 12:03 PM CDT Result [facility] Yaritza Culver M.D., Ph.D. LAB BLOOD ADD-ON Final Result Performing Organization Address [facility] Co de Phone Number [facility] [address] [place] [address], [facility] [address] [place] [address] * APTT (Activated Partial Thromboplastin Time) (08/07/2023 12:03 PM CDT) Pathologist [facility] Activated Partial Thrombopl Time, P 30 25 - 37 sec 08/07/2023 12:21 PM CDT [facility] Blood (Blood, Arterial Line) 08/07/2023 12:03 PM CDT 08/07/2023 12:03 PM CDT Yaritza Culver M.D., Ph.D. LAB BLOOD ADD-ON Final Result Performing Organization Address City/[facility]/ZIP Co de Phone Number [facility] [address] [place] [address], [place] STMA [facility] [address] [place] [address] * ACT (Activated Clotting Time), POCT (08/07/2023 12:00 PM CDT) Activated Clotting Time 132 82 - 152 sec 08/07/2023 12:02 PM CDT PCLX 08/07/2023 12:0 0 PM CDT 08/07/2023 12:02 PM CDT us Unknown Provider LAB POCT ORDERABLES - DEVICE Fi nal Result Performing Organization Address [facility]/ZIP Co de Phone Number POC [facility] [address] [place] [address], [facility] PCLX [facility] POC [address] [place] [address] * (ABNORMAL) ACT (Activated Clotting Time), POCT (08/07/2023 11:30 AM CDT) Activated Clotting Time 491(H) 82 - 152 sec 08/07/2023 11:38 AM CDT PCLX 08/07/2023 11:3 0 AM CDT 08/07/2023 11:38 AM CDT us Unknown Provider LAB POCT ORDERABLES - DEVICE Fi nal Result Performing Organization Address [facility] Co de Phone Number POC [facility] [address] [place] [address], [facility] PCLX [facility] POC [address] [place] [address] * Glucose, POCT (08/07/2023 11:28 AM CDT) Glucose, POCT, B 99 70 - 140 mg/dL 08/07/2023 11:29 AM CDT PCSM Blood 08/07/2023 11:2 8 AM CDT 08/07/2023 11:29 AM CDT us Unknown Provider LAB POCT ORDERABLES-MANUAL Rosmery l Result Performing Organization Address City/[facility]/ZIP Co de Phone Number POC [facility] [address] [place] [address], [facility] PCSM [facility] POC [address] [place] [id number] * (ABNORMAL) ACT (Activated Clotting Time), POCT (08/07/2023 10:56 AM CDT) Activated Clotting Time 619(H) 82 - 152 sec 08/07/2023 11:06 AM CDT PCLX 08/07/2023 10:5 6 AM CDT 08/07/2023 11:06 AM CDT us Unknown Provider LAB POCT ORDERABLES - DEVICE Fi nal Result Performing Organization Address City/[facility]/ZIP Co de Phone Number POC [facility] [address] [place], [place] [id number] [place] [address] PCLX [facility] POC [address] [place] [address] * Glucose, POCT (08/07/2023 10:55 AM CDT) [facility] Glucose, POCT, B 99 70 - 140 mg/dL 08/07/2023 10:56 AM CDT PCSM Blood 08/07/2023 10:5 5 AM CDT 08/07/2023 10:56 AM CDT us Unknown Provider LAB POCT ORDERABLES-MANUAL Rosmery l Result POC [facility] [address] [place], [place] [address] [address] [place] [id number] * Transfuse Red Blood Cells : (08/07/2023 10:43 AM CDT) us Yaritza Culver M.D., Ph.D. BLOOD TRANSFUSION ORDER VONNIE Final Result * Glucose, Whole Blood (08/07/2023 10:33 AM CDT) Glucose 94 70 - 140 mg/dL 08/07/2023 10:34 AM CDT [facility] Blood (Blood, Arterial Line) 08/07/2023 10:33 AM CDT 08/07/2023 10:33 AM CDT us Richard Aguayo M.D. LAB BLOOD ADD-ON Final Resu lt [facility] [address] [place] [address], [facility] [address] [place] [address] * (ABNORMAL) Potassium, Blood (08/07/2023 10:33 AM CDT) Potassium, B 2.7(L) 3.6 - 5.2 mmol/L 08/07/2023 10:35 AM CDT [facility] Blood (Blood, Arterial Line) 08/07/2023 10:33 AM CDT 08/07/2023 10:33 AM CDT us Richard Aguayo M.D. LAB BLOOD NON ADD-ON Final Result Performing Organization Address City/[facility]/ZIP Co de Phone Number [facility] [address] [place] [address], [facility] [address] [place] [address] * Sodium, B (08/07/2023 10:33 AM CDT) Sodium, B 137 135 - 145 mmol/L 08/07/2023 10:34 AM CDT [facility] Blood (Blood, Arterial Line) 08/07/2023 10:33 AM CDT 08/07/2023 10:33 AM CDT us Richard Aguayo M.D. LAB BLOOD NON ADD-ON Final Result [facility] [address] [place] [address], [facility] [address] [place] [address] * (ABNORMAL) Calcium, Ionized (08/07/2023 10:33 AM CDT) Calcium, Ionized, B 3.87(L) 4.65 - 5.30 mg/dL 08/07/2023 10:35 AM CDT [facility] Blood (Blood, Arterial Line) 08/07/2023 10:33 AM CDT 08/07/2023 10:33 AM CDT Richard Aguayo M.D. LAB BLOOD NON ADD-ON Final Result [facility] [address] [place] [address], [facility] [address] [place] [address] * (ABNORMAL) Blood Gas with Coox, Arterial (08/07/2023 10:33 AM CDT) pO2 349(H) 83 - 108 mm Hg 08/07/2023 10:34 AM CDT [facility] pCO2 38 32 - 45 mm Hg 08/07/2023 10:34 AM CDT [facility] pH 7.45 7.35 - 7.45 pH 08/07/2023 10:34 AM CDT [facility] Base Excess 2 -2 - 3 mmol/L 08/07/2023 10:34 AM CDT [facility] HCO3 26 22 - 26 mmol/L 08/07/2023 10:34 AM CDT [facility] Hemoglobin, Venous 7.7(L) 11.6 - 15.0 g/dL 08/07/2023 10:34 AM CDT [facility] O2Hb 98.9(H) 94.0 - 98.0 % 08/07/2023 10:34 AM CDT [facility] COHb 2.0 <3.0 % 08/07/2023 10:34 AM CDT [facility] MetHb <1.0 <1.5 % 08/07/2023 10:34 AM CDT [facility] CtO2 11.6(L) 18.0 - 21.0 vol % 08/07/2023 10:34 AM CDT [facility] Blood (Blood, Arterial Line) 08/07/2023 10:33 AM CDT 08/07/2023 10:33 AM CDT us Richard Aguayo M.D. LAB BLOOD NON ADD-ON Final Result Performing Organization Address [facility]/ZIP Co de Phone Number [facility] [address] [place], [place] [phone] [place] [address] STMA [facility] [address] [place] [address] * (ABNORMAL) ACT (Activated Clotting Time), POCT (08/07/2023 10:27 AM CDT) Activated Clotting Time 602(H) 82 - 152 sec 08/07/2023 10:35 AM CDT PCLX 08/07/2023 10:2 7 AM CDT 08/07/2023 10:35 AM CDT us Unknown Provider LAB POCT ORDERABLES - DEVICE Fi nal Result Performing Organization Address [facility] Co de Phone Number POC [facility] [address] [place], [place] [phone] [place] [address] PCLX [facility] POC [address] [place] [address] * (ABNORMAL) Hemoglobin (HGB), POCT (08/07/2023 10:10 AM CDT) [facility] Hemoglobin, POCT, B 9.5(L) 11.6 - 15.0 g/dL 08/07/2023 10:17 AM CDT PCSM Blood 08/07/2023 10:1 0 AM CDT 08/07/2023 10:17 AM CDT us Unknown Provider LAB POCT ORDERABLES - DEVICE Fi nal Result Performing Organization Address City/[facility]/ZIP Co de Phone Number POC [facility]ST [facility] [address] PCSM [facility] POC [address] [place] [id number] * (VIJI) - INTRAOPERATIVE WITH COLOR AND LIMITED DOPPLER (PROBE NOT PLACED) (08/07/2023 10:09 AM CDT) Ejection Fraction CV EIMS Sinus of Valsalva 32 CV EIMS Sinotubular Junction 22 CV EIMS Mid-Ascending Aorta 37 CV EIMS Anatomical Region Laterality Modality Echocardiography 08/07/2023 6:53 AM CDT Impressions 08/07/2023 1:03 PM CDT PROCEDURE:Transesophageal echocardiogram performed at the request of the primary field services analyst. Transesophageal echocardiogram completed without complications. PRE-BYPASS:Pre-bypass left ventricular ejection fraction 60%. Normal right ventricular systolic function. Moderate-severe mitral valve regurgitation. 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 No flail mitral valve. Trileaflet aortic valve. No aortic valve regurgitation. Normal ascending aorta diameter. Normal tricuspid valve. Mild tricuspid valve regurgitation. Normal pulmonary valve. Mild pulmonary valve regurgitation. No atrial level shunt by color flow imaging and agitated saline contrast injection. No atherosclerosis of the ascending aorta. Focal moderate immobile (atheroma 3-5 mm thickness without ulceration) atherosclerosis of the aortic arch. Focal moderate immobile (atheroma 3-5 mm thickness without ulceration) atherosclerosis of the descending thoracic aorta. SURGERY:Intraoperative surgical procedure: mitral valve repair. POST-BYPASS:Intraoperative result: trivial residual mitral valve regurgitation. Intraoperative result: residual mean mitral valve gradient 3 mmHg (heart rate 87 BPM). Post-bypass left ventricular ejection fraction 60%. No evidence of left circumflex coronary artery compromise post annuloplasty. Post-bypass: normal right ventricular systolic function. Intact ascending aorta post-decannulation. The remaining findings are unchanged from pre-bypass images. For the complete report, see the Order-Level Documents. Narrative 08/07/2023 1:03 PM CDT For the complete report, see the Order-Level Documents. Hemodynamics Heart Rate: 84 BPM Blood Pressure: 146 / 97 mmHg Final Impressions 1. PRE-BYPASS: 2. Pre-bypass left ventricular ejection fraction 60%. 3. Normal right ventricular systolic function. 4. Moderate-severe mitral valve regurgitation with functional cleft at P2. 5. No atrial level shunt by color flow imaging and agitated saline contrast injection. 6. 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 SURGERY: 8. Intraoperative surgical procedure: mitral valve repair robotic-assisted mitral valvuloplasty, 32 mm [employer]hau[employer] SimuPlus partial annuloplasty ring 9. POST-BYPASS: 10. Intraoperative result: trivial residual mitral valve regurgitation. 11. Intraoperative result: residual mean mitral valve gradient 3 mmHg (heart rate 87 BPM). 12. Post-bypass left ventricular ejection fraction 60%. No evidence of left circumflex coronary artery compromise post annuloplasty 13. Post-bypass: normal right ventricular systolic function. 14. Intact ascending aorta post-decannulation. 15. The remaining findings are unchanged from pre-bypass images. Procedure Note Aimee Hinton M.D., M.S. - 08/07/2023 For the complete report, see the Order-Level Documents. Hemodynamics Heart Rate: 84 BPM Blood Pressure: 146 / 97 mmHg Final Impressions 1. PRE-BYPASS: 2. Pre-bypass left ventricular ejection fraction 60%. 3. Normal right ventricular systolic function. 4. Moderate-severe mitral valve regurgitation with functional cleft atP2. 5. No atrial level shunt by color flow imaging and agitated salinecontrast injection. 6. Focal moderate immobile (atheroma 3-5 mm thickness without ulceration)atherosclerosis of the aortic arch and descending thoracic aorta 7. SURGERY: 8. Intraoperative surgical procedure: mitral valve repair robotic-assistedmitral valvuloplasty, 32 mm Medtronic SimuPlus partial annuloplasty ring 9. POST-BYPASS: 10. Intraoperative result: trivial residual mitral valve regurgitation. 11. Intraoperative result: residual mean mitral valve gradient 3 mmHg(heart rate 87 BPM). 12. Post-bypass left ventricular ejection fraction 60%. No evidence ofleft circumflex coronary artery compromise post annuloplasty 13. Post-bypass: normal right ventricular systolic function. 14. Intact ascending aorta post-decannulation. 15. The remaining findings are unchanged from pre-bypass images. Findings PROCEDURE:Transesophageal echocardiogram performed at the request of [facility] field services analyst. Transesophageal echocardiogram completedwithout complications. PRE-BYPASS:Pre-bypass left ventricular ejection fraction 60%. Normal rightventricular systolic function. 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 No flail mitral valve. Trileafletaortic valve. No aortic valve regurgitation. Normal ascending aortadiameter. Normal tricuspid valve. Mild tricuspid valve regurgitation.Normal pulmonary valve. Mild pulmonary valve regurgitation. No atriallevel shunt by color flow imaging and agitated saline contrast injection.No atherosclerosis of the ascending aorta. Focal moderate immobile(atheroma 3-5 mm thickness without ulceration) atherosclerosis of theaortic arch. Focal moderate immobile (atheroma 3-5 mm thickness withoutulceration) atherosclerosis of the descending thoracic aorta. SURGERY:Intraoperative surgical procedure: mitral valve repair. POST-BYPASS:Intraoperative result: trivial residual mitral valveregurgitation. Intraoperative result: residual mean mitral valve gradient3 mmHg (heart rate 87 BPM). Post-bypass left ventricular ejection [id number]%. No evidence of left circumflex coronary artery compromise postannuloplasty. Post-bypass: normal right ventricular systolic function.Intact ascending aorta post-decannulation. The remaining findings areunchanged from pre-bypass images. For the complete report, see the Order-Level Documents. us Richard Aguayo M.D. CV ECHO PROCEDURES Final Re sult * (ABNORMAL) ACT (Activated Clotting Time), POCT (08/07/2023 9:13 AM CDT) Activated Clotting Time 497(H) 82 - 152 sec 08/07/2023 10:20 AM CDT PCLX 08/07/2023 9:13 AM CDT 08/07/2023 10:20 AM CDT us Unknown Provider LAB POCT ORDERABLES - DEVICE Fi nal Result POC [facility] [address] [place], [place] [phone] [place] [address] PCLX [facility] POC [address] [place] [address] * (ABNORMAL) Lactate, B - Intra-op (08/07/2023 8:53 AM CDT) Lactate, B <0.5(L) 0.5 - 2.2 mmol/L 08/07/2023 8:55 AM CDT [facility] Blood (Blood, Venous) 08/07/2023 8:53 AM CDT 08/07/2023 8:53 AM CDT us Yaritza Culver M.D., Ph.D. LAB BLOOD NON ADD-ON Fi nal Result Performing Organization Address City/[facility]/ZIP Co de Phone Number [facility] [address] [place] [address], [facility] [address] [place] [address] * Glucose, Whole Blood (08/07/2023 8:53 AM CDT) Glucose 93 70 - 140 mg/dL 08/07/2023 8:54 AM CDT [facility] Blood (Blood, Arterial Line) 08/07/2023 8:53 AM CDT 08/07/2023 8:53 AM CDT Yaritza Culver M.D., Ph.D. LAB BLOOD ADD-ON Final Result Performing Organization Address City/[facility] Co de Phone Number [facility] [address] [place] [address], [facility] [address] [place] [address] * (ABNORMAL) Potassium, Blood (08/07/2023 8:53 AM CDT) Potassium, B 2.9(L) 3.6 - 5.2 mmol/L 08/07/2023 8:54 AM CDT [facility] Blood (Blood, Arterial Line) 08/07/2023 8:53 AM CDT 08/07/2023 8:53 AM CDT Yaritza Culver M.D., Ph.D. LAB BLOOD NON ADD-ON Fi nal Result Performing Organization Address City/[facility]/ZIP Co de Phone Number [facility] [address] [place] [address], [facility] [address] [place] [address] * Sodium, B (08/07/2023 8:53 AM CDT) Sodium, B 136 135 - 145 mmol/L 08/07/2023 8:54 AM CDT [facility] Blood (Blood, Arterial Line) 08/07/2023 8:53 AM CDT 08/07/2023 8:53 AM CDT Yaritza Culver M.D., Ph.D. LAB BLOOD NON ADD-ON Fi nal Result Performing Organization Address City/[facility] Co de Phone Number [facility] [address] [place], [place] [phone] [place] [address] [address] [place] [address] * (ABNORMAL) Calcium, Ionized (08/07/2023 8:53 AM CDT) Calcium, Ionized, B 4.38(L) 4.65 - 5.30 mg/dL 08/07/2023 8:54 AM CDT [facility] Blood (Blood, Arterial Line) 08/07/2023 8:53 AM CDT 08/07/2023 8:53 AM CDT Yaritza Culver M.D., Ph.D. LAB BLOOD NON ADD-ON Fi nal Result Performing Organization Address City/[facility] Co de Phone Number [facility] [address] [place] [address], [facility] [address] [place] [address] * (ABNORMAL) Blood Gas with Coox, Arterial (08/07/2023 8:53 AM CDT) pO2 340(H) 83 - 108 mm Hg 08/07/2023 8:54 AM CDT [facility] pCO2 33 32 - 45 mm Hg 08/07/2023 8:54 AM CDT [facility] pH 7.51(H) 7.35 - 7.45 pH 08/07/2023 8:54 AM CDT [facility] Base Excess 3 -2 - 3 mmol/L 08/07/2023 8:54 AM CDT [facility] HCO3 26 22 - 26 mmol/L 08/07/2023 8:54 AM CDT [facility] Hemoglobin, Venous 10.0(L) 11.6 - 15.0 g/dL 08/07/2023 8:54 AM CDT [facility] O2Hb 99.3(H) 94.0 - 98.0 % 08/07/2023 8:54 AM CDT [facility] COHb 2.0 <3.0 % 08/07/2023 8:54 AM CDT [facility] MetHb <1.0 <1.5 % 08/07/2023 8:54 AM CDT [facility] CtO2 14.6(L) 18.0 - 21.0 vol % 08/07/2023 8:54 AM CDT [facility] Blood (Blood, Arterial Line) 08/07/2023 8:53 AM CDT 08/07/2023 8:53 AM CDT us Yaritza Culver M.D., Ph.D. LAB BLOOD NON ADD-ON Fi nal Result Performing Organization Address City/[facility]/ZIP Co de Phone Number [facility] [address] [place] [address], [facility] STMA [facility] [address] [place] [address] * ACT (Activated Clotting Time), POCT (08/07/2023 8:50 AM CDT) Activated Clotting Time 143 82 - 152 sec 08/07/2023 8:52 AM CDT PCLX 08/07/2023 8:50 AM CDT 08/07/2023 8:52 AM CDT us Unknown Provider LAB POCT ORDERABLES - DEVICE Fi nal Result Performing Organization Address City/[facility]/ZIP Co de Phone Number POC [facility] [address] [place] [address], [facility] PCLX [facility] POC [address] [place] [address] documented in this encounter Visit Diagnoses Diagnosis Repair Mitral Valve Status Post- Primary Anemia Posthemorrhagic Acute (Blood Loss Anemia) Repair Mitral Valve Status Post Decline Functional Status [R53.81] Regurgitation Mitral Alcohol Mild Use Disorder (Abuse) Uncomplicated Anemia Of Chronic Disease Atrial Fibrillation Longstanding Persistent (HCC) Cardiomegaly Chronic Systolic (Congestive) Heart Failure (HCC) Anemia Posthemorrhagic Acute (Blood Loss Anemia) Hypokalemia Leukocytosis Major Depressive Disorder, Recurrent, Unspecified (HCC) Hyperlipidemia Hypertension Essential Primary Bleed Postoperative Initial Pain Postoperative Acidosis Lactic Hyponatremia Stenosis Spinal documented in this encounter Admitting Diagnoses Diagnosis Regurgitation Mitral documented in this encounter Administered Medications Inactive Administered Medications - up to 3 most recent administrations Medication Order MAR Action Action Date Dose Rate Site acetaminophen tablet 1,000 mg (TYLENOL) 1,000 mg, oral, Once, On Mon08/07/23 at 0700, For 1 dose, Pre-Op, Preprocedure in PWA Given 08/07/2023 6:50 AM CDT 1,000 mg acetaminophen tablet 1,000 mg (TYLENOL) 1,000 mg, oral, Every 6 hours, First dose on Mon08/07/23 at 1800 Given 08/11/2023 1:46 PM CDT 1,000 mg Given 08/11/2023 9:05 AM CDT 1,000 mg Given 08/11/2023 2:22 AM CDT 1,000 mg albumin human 5 % injection - ADS Override Pull Starting on Mon08/08/23 at 0227, For 1 dose, Created by cabinet override albumin human 5 % injection 25 g 25 g, intravenous, Once, On Mon08/08/23 at 0315, For 1 dose, If no infusion rate specified: Administer the 25% solution over 60 minutes for non-Pyxis (pharmacy source) orders. Administer the 5% solution over at least 30 min if ICU/shock, otherwise infuse at 250 ml/hr. New Bag 08/08/2023 2:57 AM CDT 25 g albuterol nebulizer solution 2.5 mg 2.5 mg, nebulization, Every 4 hours PRN, wheezing, Starting on Mon08/07/23 at 1356 amiodarone 1.8 mg/mL in dextrose 200 mL infusion (NEXTERONE/CORDARONE) 0.5 mg/min (16.6667 mL/hr, rounded to 16.7 mL/hr), intravenous, Continuous, Starting on Mon08/08/23 at 2030, For 18 hours, 360 mg in 200 mL; For non-emergency doses, use an in-line filter. Rate/Dose Verify 08/09/2023 1:15 PM CDT 0.5 mg/min 16.7 mL/hr Rate/Dose Verify 08/09/2023 11:12 AM CDT 0.5 mg/min 16.7 m L/hr New Bag 08/09/2023 9:12 AM CDT 0.5 mg/min 16.7 mL/hr amiodarone in dextrose IVPB 150 mg (NEXTERONE/CORDARONE) 150 mg, intravenous, at 600 mL/hr, Administer over 10 Minutes, Once, On Mon08/08/23 at 1700, For 1 dose, For non-emergency doses, use an in-line filter. New Bag 08/08/2023 5:06 PM CDT 150 mg 600 mL/hr amiodarone in dextrose IVPB 150 mg (NEXTERONE/CORDARONE) 150 mg, intravenous, at 600 mL/hr, Administer over 10 Minutes, Once, On Mon08/08/23 at 1815, For 1 dose, For non-emergency doses, use an in-line filter. New Bag 08/08/2023 6:33 PM CDT 150 mg 600 mL/hr amiodarone tablet 200 mg (PACERONE) 200 mg, oral, 2 times daily, First dose on Mon08/13/23 at 0900, For 4 days amiodarone tablet 200 mg (PACERONE) 200 mg, oral, Daily, First dose on Mon08/17/23 at 0900, For 22 days amiodarone tablet 400 mg (PACERONE) 400 mg, oral, 2 times daily, First dose on Mon08/09/23 at 1915, For 4 days Given 08/11/2023 9:05 AM CDT 400 mg Given 08/10/2023 10:18 PM CDT 400 mg Given 08/10/2023 9:17 AM CDT 400 mg aspirin chewable tablet 81 mg 81 mg, oral, Daily, First dose on Mon08/08/23 at 0900, Hold for platelet count less than 50 x 10(3)/L. atorvastatin tablet 20 mg (LIPITOR) 20 mg, oral, Daily at bedtime, First dose on Mon08/08/23 at 2100 Given 08/10/2023 10:18 PM CDT 20 mg Given 08/09/2023 8:06 PM CDT 20 mg Given 08/08/2023 8:53 PM CDT 20 mg benzocaine-menthoL 15-3.6 mg per lozenge 1 lozenge (CEPACOL) 1 lozenge, oral, As needed, sore throat, Starting on Mon08/07/23 at 1356 bisacodyL suppository 10 mg (DULCOLAX) 10 mg, rectal, Daily PRN, constipation, Starting on Mon08/07/23 at 1356, If no bowel movement for 72 hours. Hold for loose stool. buPROPion XL 24 hr tablet 150 mg (WELLBUTRIN XL) 150 mg, oral, Daily, First dose on Mon08/08/23 at 0900, Swallow whole. Do NOT crush, chew, or split tablet. Given 08/11/2023 9:05 AM CDT 150 mg Given 08/10/2023 9:17 AM CDT 150 mg Given 08/09/2023 8:45 AM CDT 150 mg calcium gluc in NaCl, iso osm IVPB 2 g 2 g, intravenous, at 400 mL/hr, Administer over 15 Minutes, Once, On Mon08/08/23 at 0500, For 1 dose New Bag 08/08/2023 4:41 AM CDT 2 g 400 mL/hr calcium gluconate 4 g in NaCl 0.9% IVPB 4 g, intravenous, at 280 mL/hr, Administer over 30 Minutes, Once, On Mon08/07/23 at 1500, For 1 dose New Bag 08/07/2023 3:25 PM CDT 4 g 280 mL/hr calcium gluconate 4 g in NaCl 0.9% IVPB 4 g, intravenous, at 280 mL/hr, Administer over 30 Minutes, Once, On Mon08/07/23 at 1700, For 1 dose New Bag 08/07/2023 5:39 PM CDT 4 g 280 mL/hr carvediloL tablet 12.5 mg (COREG) 12.5 mg, oral, 2 times daily with meals, First dose (after last modification) on Mon08/10/23 at 0945 Given 08/11/2023 9:04 AM CDT 12.5 mg Given 08/10/2023 6:08 PM CDT 12.5 mg Given 08/10/2023 10:07 AM CDT 12.5 mg carvediloL tablet 3.125 mg (COREG) 3.125 mg, oral, 2 times daily with meals, First dose on Mon08/09/23 at 1030 Given 08/09/2023 4:25 PM CDT 3.125 mg Given 08/09/2023 10:51 AM CDT 3.125 mg carvediloL tablet 3.125 mg (COREG) 3.125 mg, oral, Once, On Mon08/09/23 at 1845, For 1 dose Given 08/09/2023 6:22 PM CDT 3.125 mg ceFAZolin in dextrose (iso osm) IVPB 2 g (ANCEF) 2 g, intravenous, at 200 mL/hr, Administer over 30 Minutes, Every 8 hours, First dose on Mon08/07/23 at 2000, For 8 doses, Start within 8 hours of last IV dose., Drug Monitoring Program: Pharmacist to adjust medication dosing based on indication and drug clearance factors., Indications: Prophylaxis, surgicalIndications:Prophylaxis, surgical New Bag 08/10/2023 6:26 AM CDT 2 g 200 mL/hr New Bag 08/09/2023 10:26 PM CDT 2 g 200 mL/hr New Bag 08/09/2023 2:23 PM CDT 2 g 200 mL/hr clevidipine 0.5 mg/mL infusion (CLEVIPREX) 0-21 mg/hr (0-42 mL/hr), intravenous, Continuous, Starting on Mon08/07/23 at 1430, 1-2 mg/hr dose increases yield approximately 2-4 mmHg systolic blood pressure reduction. Once goal is achieved and no longer titrating, monitor per unit routine. 25 mg in 50 mL DO NOT RETURN TO REFRIGERATED STORAGE AFTER BEGINNING ROOM TEMPERATURE STORAGE, Initiate at: 1 mg/hr, Titrate at: 2 mg/hr. every 5-15 min., Goal: Other SBP, SBP (Lower limit): 100, SBP (Upper limit): 120, Wean at: 1 mg/hr. every 5-15 min. Rate/Dose Verify 08/08/2023 12:00 AM CDT 2 mg/hr 4 mL/hr Rate/Dose Verify 08/07/2023 11:00 PM CDT 2 mg/hr 4 mL/h r Restarted 08/07/2023 10:42 PM CDT 2 mg/hr 4 mL/hr furosemide injection 20 mg (LASIX) 20 mg, intravenous, Once, On Mon08/08/23 at 1545, For 1 dose, Adults: Doses less than 120 mg: IV push over 20 mg/minute. Doses 120 mg or greater: IVPB at 4 mg/minute. Peds/Neonates: Doses less than 120 mg over 0.5 mg/kg/minute. Doses 120 mg or greater: IVPB at 4 mg/minute. Given 08/08/2023 4:07 PM CDT 20 mg furosemide injection 20 mg (LASIX) 20 mg, intravenous, Daily, First dose (after last modification) on Mon08/09/23 at 1015, Adults: Doses less than 120 mg: IV push over 20 mg/minute. Doses 120 mg or greater: IVPB at 4 mg/minute. Peds/Neonates: Doses less than 120 mg over 0.5 mg/kg/minute. Doses 120 mg or greater: IVPB at 4 mg/minute. Given 08/09/2023 10:57 AM CDT 20 mg furosemide injection 20 mg (LASIX) 20 mg, intravenous, 2 times daily, First dose (after last modification) on Mon08/09/23 at 1700, Adults: Doses less than 120 mg: IV push over 20 mg/minute. Doses 120 mg or greater: IVPB at 4 mg/minute. Peds/Neonates: Doses less than 120 mg over 0.5 mg/kg/minute. Doses 120 mg or greater: IVPB at 4 mg/minute. Given 08/11/2023 9:13 AM CDT 20 m g Given 08/10/2023 6:07 PM CDT 20 mg Given 08/10/2023 9:18 AM CDT 20 mg haloperidol lactate injection 1 mg (HALDOL) 1 mg, intravenous, Every 6 hours PRN, nausea, vomiting, Starting on Mon08/07/23 at 1356, For 48 hours, Total of 3 doses in 24 hour period. RASS must be -2 or higher to administer. Reassess for nausea or vomiting after at least 10 minutes. If nausea or vomiting persists administer next ordered antiemetic medications (order for antiemetic medication administration ondansetron then haloperidol). ECG is not necessary to administer haloperidol lactate. It carries a minimal risk of cardiac dysrhythmias when used at low doses as an antiemetic. Exercise caution and monitor ECG as clinically indicated in high-risk patient populations (e.g., familial long QT syndrome or concomitant medications that may augment QT prolongation). Given 08/07/2023 11:20 PM CDT 1 mg HYDROmorphone (PF) injection 0.2 mg (DILAUDID) 0.2 mg, intravenous, Every 5 min PRN, severe pain or score 7-10 of 10, moderate pain or score 4-6 of 10, Starting on Mon08/07/23 at 1405, q 5 minutes PRN up to 2 mg in 2 hours Given 08/08/2023 1:37 AM C DT 0.2 mg Given 08/07/2023 10:56 PM CDT 0.2 mg Given 08/07/2023 5:37 PM CDT 0.2 mg insulin aspart U-100 injection 0-7 Units (NovoLOG FlexPen) 0-7 Units, subcutaneous, Every 4 hours scheduled, First dose on Mon08/07/23 at 1600, Insulin Scale: Mild Correction Scale, 180 - 219: 2 units, 220 - 259: 3 units, 260 - 299: 4 units, 300 - 339: 5 units, 340 - 379: 6 units, 380 - 399: 7 units, Greater than 399: Call service writing Insulin orders Given 08/07/2023 11:09 PM CDT 2 Units Left Lower Abdomen Lactated Ringer's bolus 500 mL 500 mL, intravenous, at 2,000 mL/hr, Administer over 15 Minutes, As needed, see admin instructions, Starting on Mon08/07/23 at 1356, For 4 doses, Fluid Management: Patient must have at least two of the following criteria: UOP <0.5 mL/kg/hr, Poor capillary refill, Cool extremities (with normal core body temp), MAP <60 mmHg, CI <2, Lactate > 3.5 & rising, Metabolic acidosis (pH <= 7.3 with base deficit <= -5 or bicarbonate < 22), or SvO2 < 60. PAC or Non-Invasive (FloTrac) CO Present: Obtain and record baseline CI and CVP If CI is not >= 3: Administer 250 ml Lactated Ringers over 5 minutes Recheck and record CI and CVP within 5 min If CI >= 15% AND CVP >= 2: Administer 500 ml Lactated Ringers over 15 min until criteria is met or maximum of 2000 ml given Contact provider if patient does not meet specific parameters of patient receives maximum fluid volume. May use rapid infuser/pressure bag to achieve fluid goals. New Bag 08/08/2023 3:00 AM CDT 500 mL 2000 mL/hr New Bag 08/08/2023 1:33 AM CDT 500 mL 2000 mL/hr New Bag 08/08/2023 12:06 AM CDT 500 mL 2000 mL/hr Lactated Ringer's 20 mL/hr, intravenous, Continuous, Starting on Mon08/07/23 at 1415 Rate/Dose Verify 08/08/2023 11:00 AM CDT 20 mL/hr 20 mL/hr Rate/Dose Verify 08/08/2023 10:00 AM CDT 20 mL/hr 20 mL/ hr Rate/Dose Verify 08/08/2023 9:00 AM CDT 20 mL/hr 20 mL/h r lactulose solution 20 g (CHRONULAC) 20 g, oral, 3 times daily PRN, constipation, Starting on Mon08/07/23 at 1356, If no result from bisacodyl suppository. Hold for loose stool. lisinopriL tablet 2.5 mg (PRINIVIL,ZESTRIL) 2.5 mg, oral, Daily, First dose on Mon08/10/23 at 0900 Given 08/10/2023 9:16 AM CDT 2.5 mg lisinopriL tablet 5 mg (PRINIVIL,ZESTRIL) 5 mg, oral, Daily, First dose (after last modification) on Mon08/11/23 at 0900 Given 08/11/2023 9:05 AM CDT 5 mg magnesium sulfate in water IVPB 2 g 2 g, intravenous, at 25 mL/hr, Administer over 120 Minutes, Once, On Mon08/08/23 at 1700, For 1 dose New Bag 08/08/2023 5:08 PM CDT 2 g 25 mL/hr magnesium sulfate in water IVPB 4 g 4 g, intravenous, at 25 mL/hr, Administer over 240 Minutes, Once, On Mon08/07/23 at 1430, For 1 dose New Bag 08/07/2023 2:36 PM CDT 4 g 25 mL/hr melatonin tablet 6 mg 6 mg, oral, Daily at bedtime, First dose (after last modification) on Mon08/09/23 at 2345 Given 08/10/2023 10:18 PM CDT 6 mg metoprolol tablet 12.5 mg (LOPRESSOR) 12.5 mg, oral, Once as needed, if patient did not take their last scheduled dose of beta sheridan prior to arrival, Starting on Mon08/07/23 at 0637, For 1 dose, Pre-Op, Do not give if patient does not take scheduled beta blockers, if patient is receiving intravenous vasopressors or inotropes, if heart rate is less than 50 beats per minute, if systolic blood pressure is less than 90 mmHg or if diastolic blood pressure is less than 40 mmHg, or if patient has an allergy to metoprolol. Given 08/07/2023 6:50 AM CDT 12.5 mg mupirocin 2 % ointment 1 Application (BACTROBAN) 1 Application, each nostril, 2 times daily, First dose on Mon08/07/23 at 2100, For 6 doses, Instill 0.5 gram (1 application) into each nostril. Massage nares for one minute after instilling the ointment. If patient has completed a 5 day course prior to surgery, discontinue mupirocin. Given 08/09/2023 8:06 PM CDT 1 Application Given 08/09/2023 8:45 AM CDT 1 Application Given 08/08/2023 8:54 PM CDT 1 Application NaCl 0.9% infusion 0-9 mL/hr, intravenous, Continuous, Starting on Mon08/07/23 at 1600, Hemodynamic Monitoring Lines: catheter lumen of central venous catheter (CVC) and Arterial lines for Intensive Care Units (ICU), Progressive Care Unit (PCU) and Telemetry units. Rate/Dose Verify 08/08/2023 11:00 AM CDT 6 mL/hr 6 mL/hr Rate/Dose Verify 08/08/2023 10:00 AM CDT 6 mL/hr 6 mL/h r Rate/Dose Verify 08/08/2023 9:00 AM CDT 6 mL/hr 6 mL/hr naloxone injection 0.2 mg (NARCAN) 0.2 mg, intravenous, As needed, respiratory depression, Starting on Mon08/07/23 at 1356, For RASS Score -4 or less, respiratory rate of less than 8 breaths/min. Notify provider/service and rapid response team (if available at institution). norepinephrine 16 mcg/mL in D5W 250 mL infusion 0-0.1 mcg/kg/min 60.8 kg Dosing weight (0-22.8 mL/hr), intravenous, Continuous, Starting on Mon08/07/23 at 1415, Protect from light and avoid extravasation, Patient Type: Cardiovascular Surgery, Initiate at: 0.01 mcg/kg/min., Titrate at: 0.01 mcg/kg/min. every 5 min., Goal: Other, Goal: SBP 100-130, MAP 65-85 Restarted 08/07/2023 7:15 PM CDT 0.01 mcg/kg/min 2.28 mL/hr ondansetron (PF) injection 4 mg (ZOFRAN) 4 mg, intravenous, Every 6 hours PRN, nausea, vomiting, Starting on Mon08/07/23 at 1356, For 48 hours, Reassess for nausea or vomiting after at least 10 minutes. If nausea or vomiting persists administer next ordered antiemetic medications (order for antiemetic medication administration ondansetron then haloperidol). Given 08/07/2023 5:51 PM CDT 4 mg oxyCODONE IR tablet 10 mg (ROXICODONE) 10 mg, oral, Every 4 hours PRN, severe pain or score 7-10 of 10, Starting on Mon08/07/23 at 1400 Given 08/10/2023 2:23 PM CDT 10 mg Given 08/09/2023 11:38 PM CDT 10 mg Given 08/09/2023 4:24 PM CDT 10 mg oxyCODONE IR tablet 5 mg (ROXICODONE) 5 mg, oral, Every 4 hours PRN, moderate pain or score 4-6 of 10, Starting on Mon08/07/23 at 1400 Given 08/10/2023 9:17 AM CDT 5 mg Given 08/08/2023 8:54 PM CDT [address] tablet 40 mg (PROTONIX) 40 mg, oral, Daily, First dose on Mon08/08/23 at 0900, Swallow whole. Do NOT crush, chew, or split tablet. Given 08/11/2023 9:05 AM CDT 40 mg Given 08/10/2023 9:17 AM CDT 40 mg Given 08/09/2023 8:45 AM CDT 40 mg polyethylene glycol powder packet 17 g (MIRALAX) 17 g, oral, Daily PRN, constipation, constipation, Starting on Mon08/07/23 at 1356, If no bowel movement for 48 hours. Hold for loose stool. Avoid mixing with starch-based thickened liquids. polyethylene glycol powder packet 17 g (MIRALAX) 17 g, gastric tube, 2 times daily, First dose on Mon08/08/23 at 0900, Dissolve in 240 mLs (8 ounces) of water prior to giving. Avoid mixing with starch-based thickened liquids. Given 08/09/2023 8:45 AM CDT 17 g Given 08/08/2023 8:13 AM CDT 17 g potassium chloride ER tablet 20 mEq (KLORCON/K-TAB) 20 mEq, oral, 2 times daily with meals, First dose on Mon08/09/23 at 1415, Swallow whole. Do NOT crush, chew, or split tablet. Given 08/11/2023 9:05 AM CDT 20 mEq Given 08/10/2023 6:07 PM CDT 20 mEq Given 08/10/2023 9:17 AM CDT 20 mEq potassium chloride ER tablet 20 mEq (KLORCON/K-TAB) 20 mEq, oral, Once, On Mon08/09/23 at 1745, For 1 dose, Swallow whole. Do NOT crush, chew, or split tablet. Given 08/09/2023 5:30 PM CDT 20 mEq potassium chloride IVPB 20 mEq 20 mEq, intravenous, at 50 mL/hr, Administer over 60 Minutes, Every 1 hour, First dose on Mon08/07/23 at 1515, For 2 doses, Central Line with Telemetry: 20 mEq per bag over 1 hour each. New Bag 08/07/2023 4:10 PM CDT 20 mEq 50 mL/hr New Bag 08/07/2023 3:12 PM CDT 20 mEq 50 mL/hr potassium chloride IVPB 20 mEq 20 mEq, intravenous, at 50 mL/hr, Administer over 60 Minutes, Once, On Mon08/08/23 at 0000, For 1 dose, For K 3.6-3.9 mEq/L - give total of 20 mEq, Monitor the following for replacement: Potassium, Replace Potassium per: Cardiac Schedule New Bag 08/07/2023 11:58 PM CDT 20 mEq 50 mL/hr rivaroxaban tablet 20 mg (XARELTO) 20 mg, oral, Daily with evening meal, First dose on Mon08/11/23 at 1700 sennosides-docusate sodium 8.6-50 mg per tablet 2 tablet (SENOKOT-S) 2 tablet, oral, Daily at bedtime, First dose on Mon08/07/23 at 2100, Hold for loose stool Given 08/09/2023 8:06 PM CDT 2 tablets Given 08/08/2023 8:53 PM CDT 2 tablets simethicone chewable tablet 125 mg (MYLICON) 125 mg, oral, Every 6 hours PRN, flatulence, Starting on Mon08/07/23 at 1356 tranexamic acid 8 mg/mL in NaCl 0.9% 250 mL infusion (CYKLOKAPRON) 2 mg/kg/hr 61.9 kg (15.475 mL/hr, rounded to 15.5 mL/hr), intravenous, Continuous, Starting on Mon08/07/23 at 0830, Intra-Op Rate/Dose Verify 08/07/2023 5:00 PM CDT 2 mg/kg/hr 15.475 mL/hr Rate/Dose Verify 08/07/2023 4:00 PM CDT 2 mg/kg/hr 15.475 mL/hr Rate/Dose Verify 08/07/2023 3:00 PM CDT 2 mg/kg/hr 15.475 mL/hr documented in this encounter Active and Recently Administered Medications Times are shown in CDT. Scheduled Medication Order 08/09/2023 08/10/2023 08/11/2023 acetaminophen tablet 1,000 mg (TYLENOL) 1,000 mg, oral, Every 6 hours, First dose on Mon08/07/23 at 1800 0621 (Given - Provider: Marija Goyal RHomeroN.)1100 (Given - Provider: Lakesha Vance RHomeroN.)1704 (Given - Provider: Lakesha Vance RHomeroN.)2337 (Given - Provider: Marija Goyal R.N.) 0626 (Given - Provider: Marija Goyal R.N.)1304 (Given - Provider: Darcy Oropeza R.N.)1808 (Given - Provider: Darcy Oropeza R.N.) 0024 (Not Given - Provider: Marija Goyal R.N. - Reason: Patient/family refused)0222 (Given - Provider: Marija Goyal R.N.)0905 (Given - Provider: Lakesha Vance R.N.)1346 (Given - Provider: Lakesha Vance R.N.) amiodarone tablet 200 mg (PACERONE)(Linked Group 1) 200 mg, oral, 2 times daily, First dose on Mon08/13/23 at 0900, For 4 days amiodarone tablet 200 mg (PACERONE)(Linked Group 1) 200 mg, oral, Daily, First dose on Mon08/17/23 at 0900, For 22 days amiodarone tablet 400 mg (PACERONE)(Linked Group 1) 400 mg, oral, 2 times daily, First dose on Mon08/09/23 at 1915, For 4 days 2005 (Given - Provider: Marija Goyal R.N.) 0917 (Given - Provider: Blessing Bhagat R.N.)2218 (Given - Provider: Darcy Oropeza R.N.) 0905 (Given - Provider: Lakesha Vance R.N.) aspirin chewable tablet 81 mg 81 mg, oral, Daily, First dose on Mon08/08/23 at 0900, Hold for platelet count less than 50 x 10(3)/L. 0900 (Dose Auto Held - Provider: Yennifer Kennedy APRN, C.N.P., D.N.P.) 0900 (Not Given - Provider: Blessing Bhagat R.N. - Reason: See Provider Order) 0900 (Dose Auto Held - Provider: Yennifer Kennedy APRN, C.N.P., D.N.P.)1309 (Unheld by provider - Provider: Elpidio MontenegroADarien) atorvastatin tablet 20 mg (LIPITOR) 20 mg, oral, Daily at bedtime, First dose on Mon08/08/23 at 2100 2005 (Given - Provider: Marija Goyal RJose) 2218 (Given - Provider: Darcy Oropeza R.N.) buPROPion XL 24 hr tablet 150 mg (WELLBUTRIN XL) 150 mg, oral, Daily, First dose on Mon08/08/23 at 0900, Swallow whole. Do NOT crush, chew, or split tablet. 0845 (Given - Provider: Lakesha Vance R.N.) 0917 (Given - Provider: Kathy WilcoxNHomero) 0905 (Given - Provider: Lakesha Vance R.N.) carvediloL tablet 12.5 mg (COREG) 12.5 mg, oral, 2 times daily with meals, First dose (after last modification) on Mon08/10/23 at 0945 1007 (Given - Provider: Kathy WilcoxNHomero)1808 (Given - Provider: Darcy Oropeza R.N.) 0904 (Given - Provider: Lakesha Vance R.N.) carvediloL tablet 3.125 mg (COREG) (CANCELED) 3.125 mg, oral, 2 times daily with meals, First dose on Mon08/09/23 at 1030 1051 (Given - Provider: Lakesha Vance R.N.)1625 (Given - Provider: Lakesha Vance R.N.) carvediloL tablet 3.125 mg (COREG) (COMPLETED) 3.125 mg, oral, Once, On Mon08/09/23 at 1845, For 1 dose 1822 (Given - Provider: Lakesha Vance R.N.) ceFAZolin in dextrose (iso osm) IVPB 2 g (ANCEF) (COMPLETED) 2 g, intravenous, at 200 mL/hr, Administer over 30 Minutes, Every 8 hours, First dose on Mon08/07/23 at 2000, For 8 doses, Start within 8 hours of last IV dose., Drug Monitoring Program: Pharmacist to adjust medication dosing based on indication and drug clearance factors., Indications: Prophylaxis, surgical 0621 (New Bag - Provider: Marija Goyal R.N.)1423 (New Bag - Provider: Lakesha Vance R.N.)2226 (New Bag - Provider: Marija Goyal RJose) 0626 (New Bag - Provider: Marija Goyal R.N.) furosemide injection 20 mg (LASIX) (CANCELED) 20 mg, intravenous, Daily, First dose (after last modification) on Mon08/09/23 at 1015, Adults: Doses less than 120 mg: IV push over 20 mg/minute. Doses 120 mg or greater: IVPB at 4 mg/minute. Peds/Neonates: Doses less than 120 mg over 0.5 mg/kg/minute. Doses 120 mg or greater: IVPB at 4 mg/minute. 1057 (Given - Provider: Lakesha Vance R.N.) furosemide injection 20 mg (LASIX) 20 mg, intravenous, 2 times daily, First dose (after last modification) on Mon08/09/23 at 1700, Adults: Doses less than 120 mg: IV push over 20 mg/minute. Doses 120 mg or greater: IVPB at 4 mg/minute. Peds/Neonates: Doses less than 120 mg over 0.5 mg/kg/minute. Doses 120 mg or greater: IVPB at 4 mg/minute. 1633 (Given - Provider: Lakesha Vance R.N.) 0918 (Given - Provider: Blessing Bhagat RJose)1807 (Given - Provider: Darcy Oropeza RHomeroNHomero) 0913 (Given - Provider: Lakesha Vance R.N.) lisinopriL tablet 2.5 mg (PRINIVIL,ZESTRIL) (CANCELED) 2.5 mg, oral, Daily, First dose on Mon08/10/23 at 0900 0916 (Given - Provider: Blessing Bhagat RJose) lisinopriL tablet 5 mg (PRINIVIL,ZESTRIL) 5 mg, oral, Daily, First dose (after last modification) on Mon08/11/23 at 0900 0905 (Given - Provider: Lakesha Vance R.N.) melatonin tablet 6 mg 6 mg, oral, Daily at bedtime, First dose (after last modification) on Mon08/09/23 at 2345 0007 (Not Given - Provider: Marija Goyal R.N. - Reason: Patient/family refused)2217 (Given - Provider: Darcy Oropeza RJose) mupirocin 2 % ointment 1 Application (BACTROBAN) (CANCELED) 1 Application, each nostril, 2 times daily, First dose on Mon08/07/23 at 2100, For 6 doses, Instill 0.5 gram (1 application) into each nostril. Massage nares for one minute after instilling the ointment. If patient has completed a 5 day course prior to surgery, discontinue mupirocin. 0845 (Given - Provider: Lakesha Vance R.N.)2005 (Given - Provider: Marija Goyal R.N.) pantoprazole DR tablet 40 mg (PROTONIX)(Linked Group 2) 40 mg, oral, Daily, First dose on Mon08/08/23 at 0900, Swallow whole. Do NOT crush, chew, or split tablet. 0845 (Given - Provider: Lakesha Vance R.N.) 0917 (Given - Provider: Blessing Bhagat R.N.) 09 (Given - Provider: Lakesha Vance R.N.) polyethylene glycol powder packet 17 g (MIRALAX) 17 g, gastric tube, 2 times daily, First dose on Mon08/08/23 at 0900, Dissolve in 240 mLs (8 ounces) of water prior to giving. Avoid mixing with starch-based thickened liquids. 0845 (Given - Provider: Lakesha Vance R.N.)2007 (Not Given - Provider: Marija Goyal R.N. - Reason: Order parameters not met) 920 (Not Given - Provider: Blessing Bhagat R.N. - Reason: Patient/family refused)2214 (Not Given - Provider: Darcy Oropeza RJose - Reason: Order parameters not met) 09 (Not Given - Provider: Lakesha Vance R.N. - Reason: Patient/family refused) potassium chloride ER tablet 20 mEq (KLORCON/K-TAB) 20 mEq, oral, 2 times daily with meals, First dose on Mon08/09/23 at 1415, Swallow whole. Do NOT crush, chew, or split tablet. 1423 (Given - Provider: Lakesha Vance R.N.) 0917 (Given - Provider: Kathy WilcoxNHomero)1807 (Given - Provider: Darcy Oropeza R.N.) 0905 (Given - Provider: Lakesha Vance R.N.) potassium chloride ER tablet 20 mEq (KLORCON/K-TAB) (COMPLETED) 20 mEq, oral, Once, On Mon08/09/23 at 1745, For 1 dose, Swallow whole. Do NOT crush, chew, or split tablet. 1730 (Given - Provider: Lakesha Vance R.N.) rivaroxaban tablet 20 mg (XARELTO) 20 mg, oral, Daily with evening meal, First dose on Mon08/11/23 at 1700 sennosides-docusate sodium 8.6-50 mg per tablet 2 tablet (SENOKOT-S)(Linked Group 3) 2 tablet, oral, Daily at bedtime, First dose on Mon08/07/23 at 2100, Hold for loose stool 2005 (Given - Provider: Marija Goyal RHomeroNHomero) 2218 (Not Given - Provider: Darcy Oropeza R.N. - Reason: Order parameters not met) Continuous Medication Order 08/09/2023 08/10/2023 08/11/2023 amiodarone 1.8 mg/mL in dextrose 200 mL infusion (NEXTERONE/CORDARONE) () 0.5 mg/min (16.6667 mL/hr, rounded to 16.7 mL/hr), intravenous, Continuous, Starting on Mon08/08/23 at 2030, For 18 hours, 360 mg in 200 mL; For non-emergency doses, use an in-line filter. 0700 (Rate/Dose Verify - Provider: Lakesha Vance R.N.)0912 (New Bag - Provider: Lakesha Vance R.N.)1112 (Rate/Dose Verify - Provider: Lakesha Vance R.N.)1315 (Rate/Dose Verify - Provider: Lakesha Vance R.N.)1500 (Stopped - Provider: Lakesha Vance R.N.) PRN Medication Order 08/09/2023 08/10/2023 08/11/2023 albuterol nebulizer solution 2.5 mg 2.5 mg, nebulization, Every 4 hours PRN, wheezing, Starting on Mon08/07/23 at 1356 benzocaine-menthoL 15-3.6 mg per lozenge 1 lozenge (CEPACOL) 1 lozenge, oral, As needed, sore throat, Starting on Mon08/07/23 at 1356 bisacodyL suppository 10 mg (DULCOLAX) 10 mg, rectal, Daily PRN, constipation, Starting on Mon08/07/23 at 1356, If no bowel movement for 72 hours. Hold for loose stool. HYDROmorphone (PF) injection 0.2 mg (DILAUDID) 0.2 mg, intravenous, Every 5 min PRN, severe pain or score 7-10 of 10, moderate pain or score 4-6 of 10, Starting on Mon08/07/23 at 1405, q 5 minutes PRN up to 2 mg in 2 hours insulin regular 1 Unit/mL in NaCl 0.9% 100 mL infusion 0-25 Units/hr (0-25 mL/hr), intravenous, Continuous Infusion: Per Instructions PRN, Initiate infusion for glucose greater than 180 mg/dL, Starting on Mon08/07/23 at 0806, Intra-Op, NOTIFY PRESCRIBER IF: Glucose is not within target range after 4 hours of IV insulin infusion. Patient starts eating. (50% of clear liquid diet or more) Patient starts bolus tube feedings. The insulin infusion has been either 0 to 1 unit/hour for 3 consecutive hours to consider orders to transition from IV to SQ long acting insulin. Infuse insulin into an existing line of a compatible IV solution and Y site insulin infusion into existing line below the infusion pump. Insulin infusion and existing line of compatible IV solution should each run as a primary line on separate infusion pumps at the ordered infusion rates. If no compatible IV solutions are ordered, infuse into an existing line of 0.45% NaCL infusion at 20 ml/hr. 100 Units in 100 mL, Calculator: Goal Range: 140-180 mg/dl, Starting Insulin Infusion Factor: 0.03 lactulose solution 20 g (CHRONULAC) 20 g, oral, 3 times daily PRN, constipation, Starting on Mon08/07/23 at 1356, If no result from bisacodyl suppository. Hold for loose stool. NaCl 0.45 % infusion 20 mL/hr, intravenous, Continuous Infusion: Per Instructions PRN, Infuse if no compatible IV solutions are ordered with IV insulin, Starting on Mon08/07/23 at 0806, Intra-Op, Infuse insulin into an existing line of a compatible IV solution and Y site insulin infusion into existing line below the infusion pump. If no compatible IV solutions are ordered, infuse into an existing line of 0.45% NaCL infusion at 20 ml/hr. naloxone injection 0.2 mg (NARCAN) 0.2 mg, intravenous, As needed, respiratory depression, Starting on Mon08/07/23 at 1356, For RASS Score -4 or less, respiratory rate of less than 8 breaths/min. Notify provider/service and rapid response team (if available at institution). oxyCODONE IR tablet 10 mg (ROXICODONE)(Linked Group 4) 10 mg, oral, Every 4 hours PRN, severe pain or score 7-10 of 10, Starting on Mon08/07/23 at 1400 0309 (Given - Provider: Marija Goyal RJose)1624 (Given - Provider: Lakesha Vnace RHomeroNHomero)2338 (Given - Provider: Marija Goyal R.N.) 0917 (See Alternative - Provider: Blessing Bhagat RHomeroN.)1423 (Given - Provider: Darcy Oropeza RHomeroN.) oxyCODONE IR tablet 5 mg (ROXICODONE)(Linked Group 4) 5 mg, oral, Every 4 hours PRN, moderate pain or score 4-6 of 10, Starting on Mon08/07/23 at 1400 0309 (See Alternative - Provider: Kathy GoldN.)1624 (See Alternative - Provider: Lakesha Vance RHomeroNHomero)2338 (See Alternative - Provider: Marija Goyal R.N.) 0917 (Given - Provider: Blessing Bhagat R.N.)1423 (See Alternative - Provider: Darcy Oropeza R.N.) polyethylene glycol powder packet 17 g (MIRALAX) 17 g, oral, Daily PRN, constipation, constipation, Starting on Mon08/07/23 at 1356, If no bowel movement for 48 hours. Hold for loose stool. Avoid mixing with starch-based thickened liquids. simethicone chewable tablet 125 mg (MYLICON) 125 mg, oral, Every 6 hours PRN, flatulence, Starting on Mon08/07/23 at 1356 Linked Groups Order Group 1: amiodarone tablet 400 mg (PACERONE)Jump to med 400 mg, oral, 2 times daily, First dose on Mon08/09/23 at 1915, For 4 days Followed by amiodarone tablet 200 mg (PACERONE)Jump to med 200 mg, oral, 2 times daily, First dose on Mon08/13/23 at 0900, For 4 days Followed by amiodarone tablet 200 mg (PACERONE)Jump to med 200 mg, oral, Daily, First dose on Mon08/17/23 at 0900, For 22 days Group 2: pantoprazole injection 40 mg (PROTONIX) (CANCELED) 40 mg, intravenous, Daily, First dose on Mon08/08/23 at 0900, Change to PO once tolerating diet Administer IV push over 2 minutes. Add 10 mL NS to 40 mg vial for a final concentration of 4 mg/mL. Or pantoprazole DR tablet 40 mg (PROTONIX)Jump to med 40 mg, oral, Daily, First dose on Mon08/08/23 at 0900, Swallow whole. Do NOT crush, chew, or split tablet. Group 3: sennosides-docusate sodium 8.6-50 mg per tablet 2 tablet (SENOKOT-S)Jump to med 2 tablet, oral, Daily at bedtime, First dose on Mon08/07/23 at 2100, Hold for loose stool Or sennosides 8.8 mg/5 mL syrup 17.6 mg (SENNA) (CANCELED) 17.6 mg (10 mL), gastric tube, Daily at bedtime, First dose on Mon08/07/23 at 2100, Hold for loose stool Group 4: oxyCODONE IR tablet 5 mg (ROXICODONE)Jump to med 5 mg, oral, Every 4 hours PRN, moderate pain or score 4-6 of 10, Starting on Mon08/07/23 at 1400 Or oxyCODONE IR tablet 10 mg (ROXICODONE)Jump to med 10 mg, oral, Every 4 hours PRN, severe pain or score 7-10 of 10, Starting on Mon08/07/23 at 1400 documented in this encounter Additional Health Concerns Assessment Noted Time PHQ-9 Depression Total Score: 2 08/03/19 24 9:15 AM CDT documented as of this encounter Care Teams Patient Observation Assistant Relationship Specialty Start Date End Date Elsewhere, Pcp PCP - General Internal Medicine 05/10/22 documented as of this encounter
--- OUTSIDE RECORDS SUMMARY | 2024-05-21 14:06 | XMS_ITS | Encounter Summary ---
Author Organization [facility] Address [address] [place] [address] Care Team Providers Care Tire Layer Name Role Phone Elsewhere, Pcp Primary Care Provider Unavailabl e Encounter Details Date Type Department Care Team (Late st Contact Info) Description 08/07/2023 10:20 AM CDT Ancillary Procedure Department of General Surgery Social History Tobacco Use Types Packs/Day Years Used Date Smoking Tobacco: Former Cigarettes 0 10/03/1966 - 03/05/1974 Smokeless Tobacco: Never Alcohol Use Standard Drinks/Week Comments Yes 10 (1 standard drink = 0.6 oz pu re alcohol) Humiliation, Afraid, Rape, and Kick questionnair e Answer Date Recorded Within the last year, have y ou been afraid of your partner or ex-partner? No 08/15/2022 Within the last year, have y ou been humiliated or emotionally abused in other ways by your partner or ex-partner? No Within the last year, have y ou been kicked, hit, slapped, or otherwise physically hurt by your partner or ex-partner? No 08/15/2022 Within the last year, have y ou been raped or forced to have any kind of sexual activity by your partner or ex-partner? No 08/15/2022 Social Connection and Isolat ion Panel [NHANES] Answer Date Recorded In a typical week, how many times do you talk on the phone with family, friends, or neighbors? More than three times a week 08/15/2022 How often do you get togethe r with friends or relatives? Once a week 08/15/2022 How often do you attend chur or shinto services? More than 4 times [...] Answer Date Recorded PHQ-2 Score 0 08/03/2023 [facility] - Occupational [...] the money to buy more. Never true 08/16/19 23 Within the past 12 months, t he food you bought just didn't last and you didn't have money to get more. Never true 08/15/2022 PRAPARE - Transportation Answer Date Re corded In the past 12 months, has l ack of transportation kept you from medical appointments or from getting medications? No 07/21 In the past 12 months, has l ack of transportation kept you from meetings, work, or from getting things needed for daily living? No 08/15/2022 Housing Stability Vital Sign Answer Mark Anthony e Recorded In the last 12 months, was t here a time when you were not able to pay the mortgage or rent on time? No 08/15/2022 In the last 12 months, how many places have you lived? 1 08/15/2022 In the last 12 months, was t here a time when you did not have a steady place to sleep or slept in a retirement (including now)? No 08/15/2022 Depression Answer Date Recor ded PHQ-9 Total [...] Answer Date Recorded Employment status Retired 08/15/2022 Education Answer Date Recorded What is the highest level of school you have completed or the highest degree you have received? Bachelor's degree (e.g., BA, AB, BS) 08/15/2022 Comments No Sex and Gender Information Value Date Recorded Sex Assigned at Female 05/11/2022 7:48 AM LAUNDRY SORTER Legal Sex Female 9:30 PM LAUNDRY SORTER Gender Identity Female 05/11/2022 7:48 AM LAUNDRY SORTER Sexual Orientation Straight 05/11/2022 7: 48 AM LAUNDRY SORTER documented as of this encounter Plan of Treatment Upcoming Encounters Date Type Department Care Team (Latest Contact Info) Description 05/29/2024 12:15 PM LAUNDRY SORTER Clinical Communication Virtual Review in [place], [place] [address] [place] [phone] 05/31/2024 11:00 AM LAUNDRY SORTER Appointment Department of Laboratory Medicine and Pathology, [facility], in [place], [place] [address] [place] [address] [phone] aPtricia Parker APRN, C.N.P., D.N.P. [address] [place] [address] [phone] 05/31/2024 2:00 PM LAUNDRY SORTER Comprehensive Visit Preoperative Evaluation Center in [place], [place] [address] [place] [phone] Arianna Jeffries M.D. [address] [place] [phone] 05/31/2024 2:45 PM LAUNDRY SORTER Comprehensive Visit Preoperative Evaluation Center in [place], [place] [address] [place] [address] [phone] Chris Moreno APRN, C.N.P., M.S. [address] [place] [address] [phone] 06/03/2024 8:15 AM LAUNDRY SORTER Hospital Encounter Post Anesthesia Care Unit in [place], [place] [address] [place] [address] [phone] Tahir Moore M.D. [address] [place] [address] [phone] 06/03/2024 8:15 AM LAUNDRY SORTER - 06/03/2024 2:12 PM LAUNDRY SORTER Surgery [facility] [address] [place] [phone] Tahir Moore M.D. [address] [place] [phone] C1-2 fusion 07/02/2024 11:00 AM LAUNDRY SORTER Procedure visit Division of Pain Medicine in [place], [place] [address] [place] [address] [phone] Adam Barlow M.D. 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 06/03/2024 8:15 AM LAUNDRY SORTER documented as of this encounter Procedures Procedure Name Priority Date/Time Associated Diagnosis Comments SURGERY IMAGE EXAM Routine 08/07/2023 10 :20 AM CDT documented in this encounter Results * ROBOTIC-ASSISTED MITRAL VALVE - VALVULOPLASTY-Surgery Image Exam (08/07/2023 10:20 AM CDT) 08/07/2023 10:1 8 AM CDT Narrative IIMS - 08/07/2023 10:25 AM CDT This order has been created and [...] documented as of this encounter Care Teams Tire Layer Relationship Specialty Start Date End Date Elsewhere, Pcp PCP - General Internal Medicine 05/10/22 documented as of this encounter
--- OUTSIDE RECORDS SUMMARY | 2024-05-21 14:06 | XMS_ITS | Encounter Summary ---
Author Organization [facility] Address [address] [place] [address] Care Team Providers Care Truck Farmer Name Role Phone Elsewhere, Pcp Primary Care Provider Unavailabl e Encounter Details Date Type Department Care Team (Late st Contact Info) Description 08/07/2023 6:55 AM CDT Ancillary Procedure [facility] [address] [place] [address] [phone] Richard Aguayo M.D. [address] [place] [phone] Social History Tobacco Use Types Packs/Day Years [...] How often do you attend chur or latter-day services? More than 4 times per year 08/15/2022 Do you belong to any clubs o r organizations such as orthodox groups, unions, fraternal or athletic groups, [...] Answer Date Recorded PHQ-2 Score 0 08/03/2023 [facility] [place] [facility] - Occupational Stress [...] money to buy more. Never true 08/16/19 Within the past 12 months, t he [...] place to sleep or slept in a [facility]p (including now)? No 08/15/2022 Depression Answer Date [...] Sex Assigned at Female 05/11/2022 7:48 AM PARCEL POST WEIGHER Legal Sex Female 9:30 PM PARCEL [employer] WEIGHER Gender Identity Female 05/11/2022 7:48 AM PARCEL POST WEIGHER Sexual Orientation Straight 05/11/2022 7: 48 AM PARCEL POST WEIGHER documented as of this encounter Plan of Treatment Upcoming Encounters Date Type Department Care Team (Latest Contact Info) Description 05/29/2024 12:15 PM PARCEL [employer] WEIGHER Clinical Communication Virtual Review in [place], [place] [address] [place] [phone] 05/31/2024 11:00 AM PARCEL POST WEIGHER Appointment Department of Laboratory Medicine and Pathology, [facility], in [place], [place] [address] [place] [phone] Patricia Parker APRN, C.N.P., D.N.P. [address] [place] [phone] 05/31/2024 2:00 PM PARCEL [employer] WEIGHER Comprehensive Visit Preoperative Evaluation Center in [place], [place] [address] [place] [phone] Arianna Jeffries M.D. [address] [place] [phone] 05/31/2024 2:45 PM PARCEL [employer] WEIGHER Comprehensive Visit Preoperative Evaluation Center in [place], [place] [address] [place] [phone] Chris Moreno APRN, C.N.P., M.S. [address] [place] [phone] 06/03/2024 8:15 AM PARCEL POST WEIGHER Hospital Encounter Post Anesthesia Care Unit in [place] [phone] [place] [address] [phone] Tahir Moore M.D. [address] [place] [address] [phone] 06/03/2024 8:15 AM PARCEL POST WEIGHER - 06/03/2024 2:12 PM PARCEL [employer] WEIGHER Surgery [facility] [address] [place] [phone] Tahir Moore M.D. [address] [place] [phone] C1-2 fusion 07/02/2024 11:00 AM PARCEL POST WEIGHER Procedure visit Division of Pain Medicine in [place], [place] [address] [place] [phone] Adam Barlow M.D. 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 06/03/2024 8:15 AM PARCEL POST WEIGHER documented as of this encounter Procedures Procedure Name Priority Date/Time Associated Diagnosis Comments (VIJI) - INTRAOPERATIVE WITH COLOR AND LIMITED DOPPLER (PROBE NOT PLACED) Routine 08/07/2023 10:09 AM CDT documented in this encounter Results * (VIJI) - INTRAOPERATIVE WITH COLOR AND LIMITED DOPPLER (PROBE NOT PLACED) (08/07/2023 10:09 AM CDT) Ejection Fraction MC CV EIMS Sinus of Valsalva 32 MC CV EIMS Sinotubular Junction 22 MC CV EIMS Mid-Ascending Aorta 37 MC CV EIMS Anatomical Region Laterality Modality Echocardiography 08/07/2023 6:53 AM CDT Impressions 08/07/2023 1:03 PM CDT PROCEDURE:Transesophageal echocardiogram performed at the request of the primary service cashier. Transesophageal echocardiogram completed without complications. PRE-BYPASS:Pre-bypass left [...] valve repair robotic-assisted mitral valvuloplasty, 32 mm Medtronic SimuPlus partial annuloplasty [...] PROCEDURE:Transesophageal echocardiogram performed [facility]. Transesophageal echocardiogram completedwithout complications. PRE-BYPASS:Pre-bypass left ventricular [...] rate 87 BPM). Post-bypass left ventricular ejection [id number]%. No evidence of left circumflex coronary artery compromise postannuloplasty. Post-bypass: normal right ventricular systolic function.Intact ascending aorta post-decannulation. The remaining findings areunchanged from pre-bypass images. For the complete report, see the Order-Level Documents. us Richard Aguayo M.D. CV ECHO PROCEDURES Final Re sult documented in this encounter Visit Diagnoses Not on filedocumented in this encounter Additional Health Concerns Assessment Noted Time PHQ-9 Depression Total Score: 2 08/03/19 24 9:15 AM CDT documented as of this encounter Care Teams Truck Farmer Relationship Specialty Start Date End Date Elsewhere, Pcp PCP - General Internal Medicine 05/10/22 documented as of this encounter
--- OUTSIDE RECORDS SUMMARY | 2024-05-21 14:06 | XMS_ITS | Encounter Summary ---
Author Organization [facility] Address [address] [place] [address] Care Team Providers Care Platen Press Feeder Name Role Phone Elsewhere, Pcp Primary Care Provider Unavailabl e Encounter Details Date Type Department Care Team (Late st Contact Info) Description 08/07/2023 7:20 PM CDT - 08/07/2023 10:52 PM CDT Surgery RST ROMB MAIN OR [address] [place] [phone] Richard Aguayo M.D. [address] [place] [phone] THORACOSCOPY - WASHOUT POSSIBLE THORACOTOMY, CONTROL OF BLEEDING Social History Tobacco Use Types Packs/Day Years [...] How often do you attend chur or roman catholic services? More than 4 times per year 08/15/2022 Do you belong to any clubs o r organizations such as caodaism groups, unions, fraternal or athletic groups, or [...] Answer Date Recorded PHQ-2 Score 0 08/03/2023 [facility] [place] of Occupat ional Health - Occupational Stress [...] place to sleep or slept in a alf (including now)? No 08/15/2022 Depression Answer Date [...] Sex Assigned at Female 05/11/2022 7:48 AM BIOFUELS ENGINEERING MANAGER Legal Sex Female 9:30 PM BIOFUELS ENGINEERING MANAGER Gender Identity Female 05/11/2022 7:48 AM BIOFUELS ENGINEERING MANAGER Sexual Orientation Straight 05/11/2022 7: 48 AM BIOFUELS ENGINEERING MANAGER documented as of this encounter Last Filed Vital Signs Vital Sign Reading Time Taken Comments Blood Pressure 101/81 08/07/2023 7:15 PM CDT Pulse 88 08/07/2023 10:45 PM CDT Temperature 36.9 C (98.4 F) 08/07/2023 10:45 PM CDT Respiratory Rate 24 08/07/2023 10:45 PM CDT Oxygen Saturation 98% 08/07/2023 10:45 PM CDT Inhaled Oxygen Concentration - - Weight 60.8 kg (134 lb 0.6 oz) 08/07/2023 3:38 P M CDT Height 159.4 cm (5' 2.76) 08/07/2023 6:53 AM CD T Body Mass Index 25.9 08/07/2023 6:53 AM CDT documented in this encounter Discharge Summaries * Alvaro Persaud P.A.-C. - 08/11/2023 2:01 PM CDT DISCHARGE SUMMARY BRIEF OVERVIEW Discharge Provider: Richard Aguayo M.D. Primary Care Providers: Elsewhere, Pcp (General) No address on file Patient Care Team: Christine Rodriguez M.D. as External Primary Care Physician (Family Medicine) Johanna De Santiago P.A.-Reza as External Primary Care Physician (Family Medicine) [...] due to anomalous arch anatomy - 32MM LOVEUPLUS Richard Aguayo M.D.Suman Oh M.D.Alwatari, Yahya A, M.B., B.Ch., B.A.O.Reggie Geiger P.A.-C. RST ROMB OR DISCHARGE DISPOSITION Home or Self Care [1] ACTIVE ISSUES REQUIRING FOLLOW UP Your primary care provider is your long-term healthcare provider. Please follow-up with them for any medication refills, home care assistance, or an ongoing chronic medical conditions as needed Follow-up recommendations post Cardiac Surgery Follow-up Visit: [facility] via a phone visit on 08/14, Primary Care Provider appointment on 08/20, and Primary Technical Support Representative appointment on 01/11. Follow-up Testing: Post-operative testing per the discretion of the PCP or Technical Support Representative. Monitor electrolytes with BMP while on increased [...] atrial fibrillation or per recommendations by the Technical Support Representative. Patient's local surface plate inspector to resume home propafenone under their discretion [...] the cardiac rehab program. Patient referred to: [facility] [address] [place] [address] Recommend that the patient check with insurance company to verify coverage of the cost of cardiac rehabilitation program visits. OUTPATIENT FOLLOWUP [facility] Appointments: Scheduled Appointments 08/15/2023 1:00 PM RM 01 [facility]; [facility] T1-03 [facility] Cardiovascular Surgery 10/13/2023 3:00 PM RST INTAKE VISIT POD H 08 Admitting/Central Scheduling 10/17/2023 7:30 AM DX ROCH 02 RM 210 Radiology 10/17/2023 7:45 AM DX ROCH [address] Radiology 10/17/2023 9:00 AM MR ROCN LO MR 28 1.5T Radiology 10/17/2023 10:[address] ROCH NEUR LOS 217 Radiology 10/17/2023 3:30 PM Nelson Esqueda M.D. Neurological Surgery For appointment details refer to your Patient Appointment Guide. Outside [facility] Appointments: Consults and Follow-ups to Schedule Take a copy of this after visit summary to your appointment(s). [place], [place] August 21, 2023 - Monday --12:45 PM - Hospital Follow-Up with KYLE Patricio a colleague of Dr. Christine Rodriguez MD, primary care provider, at [place] [address] [address], [address] [place], [place] [address] , [place], [place] [id number] [place], [place] January 12, 2024 - Monday --10:00 AM - Hospital Follow-Up with Dr. Quan Lopez MD, Technical Support Representative, at [facility] [address], [place] [address] Fax: [facility] You may have outpatient appointments at [facility] that changed during your hospitalization. Referto your [facility] Patient Visit Guide (PVG) for the most current schedule of appointments and detailed instructions of tests/procedures. Call [phone], if you did not receive an PVG or need to CANCEL any [facility] appointment(s). DISCHARGE MEDICATIONS: At the time of dismissal, pain medications (examples include oxycodone, Dilaudid, Tramadol, etc.)will be prescribed to you if needed. Duration will be determined on a xpdo-wz-kixc basis and will not exceed 2 weeks. [...] Stopping: DO NOT TAKE UNTIL DISCUSSION WITH [facility] mupirocin (BACTROBAN) 2 % ointment Comments: Reason [...] ECG of 09-AUG-2023 10:29, QT has lengthened KS interval has increased Reviewed by KEVIN Cheng ECG 12 Lead Result Date: 08/09/2023 Sinus rhythm Nonspecific T wave abnormality When compared with ECG of 07-AUG-2023 14:16, KS interval has decreased QT has shortened Reviewed [...] AM CDT You were discharged from the [facility] Cardiovascular Surgery - [facility] Service. Please identify this service name if you call with questions after hospitalization. * Attachments The following attachments cannot be sent through Care Everywhere. * Amiodarone (By mouth) (Angolan) * Aspirin (By mouth) (Angolan) * Oxycodone, Rapid Release (By mouth) (Angolan) * Potassium Chloride (By mouth) (Angolan) * Senna (By mouth) (Angolan) documented in this encounter Medications at Time [...] Take 2 g by mouth daily. 11/01/19 24 oxyCODONE (ROXICODONE) 5 mg immediate release tabletIndicatio ns:Acute Pain Take 1 tablet (5 mg total) by mouth every 4 (four) hours as needed for moderate pain or score 4-6 of 10 Indication: Acute Pain. 5 tablet 08/11/2023 01/05/20 24 sennosides-docu sate sodium (SENOKOT-S) 8.6-50 mg per tablet Take 2 tablets by mouth at bedtime as needed for constipation. 08/11/2023 11/01/19 24 triamcinolone (KENALOG) 0.1 % ointment Apply 1 Application topically as needed for irritation (bump on the back). 12/28/2020 11/01/19 24 documented as of this encounter Progress Notes * Kylah Bauman PharmTessa., R.Ph. 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 * Smiley Khan - 08/11/2023 12:17 PM CDT 08/11/23 0953 [facility] Therapy Provided Massage Therapy Seen By Massage Therapist Consult Purpose Integrative pain management Pre-Assessment [facility] Treatment Previously Used No Patient Outcomes Pain Score (muscle tension and my feet feel swollen) Pain Score Post-Intervention 0 - No pain Information nursing approved of extremity massage Integrative Treatment Primary site Upper;Shoulder;Neck;Back;Right;Left;Feet;Extremities Primary Technique New Zealander massage Position used Sitting (bedside chair) Massage Pressure Mild Treatment Status Treatment Completed Treatment Start Time 0953 Treatment Stop Time 1035 Interruption (min) 15 (consult, nursing cares, etc) Treatment Length (min) 42 Massage therapy info/consult held with patient. Gladys Josephine Zamarripa verbally consents to massage therapy.requesting the massage to address upper back tension and bilateral lower extremity swelling. Nursing approved of lower extremity massage. Patient does not report of any areas of pain. Patient requests massage for relaxation New Zealander massage provided to sub occipitals, bilateral upper trapezius, rhomboids and bilateral lower legs and feet. . Upon completion, patient expressed thanks for the session commenting on lower discomfort levels and increased relaxation. . Nursing must place a new orderupon patient follow-up requests. Products Used: Jojoba * Kennedy Nielsen O.T., Carmita.TSho - 08/11/2023 10:24 AM CDT Discussion regarding [...] about patient's nutritional care please contact pager [phone] on weekdays or [phone] on weekends/holidays. * Rosa Varela P.T., D.PLuz - 08/11/2023 9:24 AM CDT Physical Therapy Inpatient Treatment and Discharge SUBJECTIVE Patient's Name: Gladys Zamarripa Referring/Attending Provider: Richard Aguayo M.D. Reason for Referral: Physical Therapy Evaluate and Treat History of Present Illness: Gladys Zamarripa is a 73 y.o. 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 Aguayo. Anticipated dismissal date: [...] actuation system was not present. * Kylah Bauman, Mele., R.Ph. 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 * Rosa Varela P.T., D.P.T. - 08/10/2023 9:14 AM CDT Physical Therapy Inpatient Treatment SUBJECTIVE Patient's Name: Gladys Zamarripa Referring/Attending Provider: Richard Aguayo M.D. Reason for Referral: Physical Therapy Evaluate and Treat History of Present Illness: Gladys Zamarripa is a 73 y.o. 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 Patient/Caregiver Goals: No goals stated Subjective Comments: Patient received resting in bedside chair, agreeable to participation in PT session. OBJECTIVE Vital Signs Vitals monitored throughout session; within normal ranges. Outcome Measures: -[facility] Inpatient Short Form: AM-[facility] Basic Mobility (V.2) How much help from [...] 3-5 steps with a railing?: A Little AM-[facility] Basic Mobility (V.2) Raw Score: 18 AM-PAC Basic Mobility (V.2) Standardized Score: 41.05 Interpretation: Based on scoring guidelines using the raw score value: Those going to home had an average score at or above 18 Those going to facility had an average score at or below 17 Clinicians answer the -[facility] Inpatient Short Form based on observed [...] care above has been recommended for Ms. Marilou after hospital discharge. This level of care [...] She has been diligent in mobilizing with property staff accountant. Given her deficits, the patient will continue [...] Medication reconciliation completed. * Fantasma Hernandez P.T., Flora.P.T. - 08/08/2023 1:00 PM CDT Consult received and chart review of EMR completed. Patient is POD1 from cardiac surgery and is pivoting and ambulating well with nursing staff in the ICU. She may benefit from a formal PT/OT consultin the PCU where level of assist for discharge can better be determined. Fantasma Hernandez, PT, DPT [phone] * Glory Minaya, PRESENTATION SPECIALIST, C.N.P. - 08/08/2023 12:26 PM CDT SUBJECTIVE Gladys Zamarripa is a [...] of care of this patient with the reporting consultant surgeon, Dr. Aguayo. Anticipated dismissal date: 08/11/23. Anticipated destination: Home self-care. PT/OT consulted. Barriers to discharge: TBD pending PCU transfer Medication reconciliation completed. * Armani Lopes, PharmHomeroD., R.Ph. 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 * Tahir Flanagan Pharm.D., R.Ph. - 08/07/2023 12:59 PM CDT Clinical [...] encounter H&P Notes * Tristian Herbert M.B., B.Ch., B.A.O. - 08/07/2023 7:00 AM CDT INTERVAL HISTORY AND PHYSICAL PRE-PROCEDURE UPDATE H&P reviewed. The patient was examined and there are no significant changes to the H&P. Asad Herman, B.Ch., B.A.O. Source Note - Adam Aceves MPAS, P.A.-C. - 08/03/2023 10:30 AM CDT Gladys Burton Marilou : 1950 Visit Date: 08/03/23 REFERRING PHYSICIAN: No ref. provider found Home surface plate inspector: Quan Lopez MD [address] [facility] [place] [address] Home primary care provider: Christine Rodriguez MD [address] [place] [id number] SUBJECTIVE CHIEF COMPLAINT / REASON FOR CONSULT [...] 06-05-2015 Other Injury Of Unspecified Body Region [id number] Fall on left knee Pain Cervical 08/23/2006 [...] or blood transfusions within the last three months.No unaddressed pain or mental health concerns. Last [...] 3596) pamphlet; Your guide to Cardiac Surgery [id number]; Surgical Site Infection: Reducing Your Risk (MC 6471); Central Venous Catheter Infection: Reducing Your Risk (QC8220). Patient instructed to report to [facility] for Bactroban prescription. Application [...] of the patient today. Time includes both wna-mdqu-kk-face kkynzju-cg-bimy patient care. JACQUE Cam, P.A.-C. documented in this encounter Consult Notes * Tahir Alejo L.G.S.W., M.S.W. - 08/09/2023 1:23 PM CDTAssociated Order(s): IP CONSULT TO CARE MANAGEMENT Psychosocial Assessment SUBJECTIVE Assessment Information Referral Source: BLUEPRINTER/PA Referral Name: Bon Manuel Jr., JOHNSON, C.N.P., M.S.N. Referral Reason: Psychosocial assessment, Discharge Planning Primary Language: Angolan Fretted String Instrument Repairer Services Used: No Sexuality/Pronoun: Straight Person(s) present [...] floor Support System: spouse, children, family members, caodaism/nicole community, and friends/neighbors Primary Caregiver: self Spirituality/Sabianism/Cultural Factors: Bahai History: No Employment: retired Psychosocial Risk Factors Impacting the Patient: mental health, comorbidities, and family stress Maltreatment: none reported Trauma: none reported Current Legal Status: Voluntary [facility] Transportation: In the past 12 months, has lack of transportation kept you from medical appointments or from getting medications?: No In the past 12 months, has lack of transportation kept you from meetings, work, or from getting things needed for daily living?: No SDOH Utilities: [facility] Food Insecurity: Within the past 12 months, you worried that your food would run out before you got the money to buymore.: Never true Within the past 12 months, the food you bought just didn't last and you didn't have money to get more.: Never true [facility] Housing: What is your living situation today?: I have a steady place to live [facility] Intimate Partner Violence: Within the last [...] insurance: MEDICARE A AND B Secondary insurance: [facility] Advance Directives Legal Decision Maker: Self Advance Directives: N/A Advance Directives Status: None on file Baseline Functional Status Baseline Activities of Daily Living Mobility: Independent Dressing: Independent Feeding: Independent Bathing: Independent Grooming: Independent Toileting: Independent Behavior: Appropriate, Pleasant, Cooperative, Calm, Oriented Communication: Can write, Talks, Understands speaking, Understands Angolan, Reads, Deaf/hard of hearing Shopping: Independent Medication [...] the patient and her spouse (particularly a wypzkh-yu-idu who is a retirednurse), niece and her older children, friends, and caodaism community as being supportive. Though, she grapples [...] book club, meditation/prayer, mindful breathing, gratitude journal, caodaism discussion group, visiting the theater(s), and gardening. [...] Therapy Inpatient Evaluation/Treatment SUBJECTIVE Patient's Name: Gladys Zamarripa [...] (06-05-2015), Other Injury Of Unspecified Body Region ([id number]), Pain Cervical (08/23/2006), PreDiabetes, and Skin Cancer [...] 73 y.o. 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 Precautions [...] Cognition: Alert, Oriented x 4 Outcome Measures: [facility] Inpatient Short Form: -[facility] Basic Mobility (V.2) How much help from [...] 3-5 steps with a railing?: A Little -[facility] Basic Mobility (V.2) Raw Score: 18 -[facility] Basic Mobility (V.2) Standardized Score: 41.05 Interpretation: Based on scoring guidelines using the raw score value: Those going to home had an average score at or above 18 Those going to facility had an average score at or below 17 Clinicians answer the [facility] Inpatient Short Form based on observed [...] Genny Varela P.T., D.P.T. * Freida Coreas, [facility] - 08/09/2023 9:47 AM CDTAssociated Order(s): [...] the cardiac rehab program. Patient referred to: [facility] [address] [place] [id number] Recommend that the patient check with insurance company to verify coverage of the cost of cardiac rehabilitation program visits. * Kennedy Nielsen O.T., O.T.Flora. - 08/09/2023 8:33 AM CDT Occupational Therapy [...] Esophagitis, Hyperlipidemia, Hypertension NOS (2001), Melanoma Skin ([facility]) (03-05-2021), Osteopenia (06-05-2015), Other Injury Of Unspecified Body Region ([id number]), Pain Cervical (08/23/2006), PreDiabetes, and Skin Cancer [...] 73 y.o. 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 Precautions [...] Driving: Yes Occupational Role: Retired Leisure Interests: crosswCausata, reading, friends, tv Patient/Caregiver Goals: Decrease pain [...] not limit participation in activity Outcome Measures: AM-PAC Inpatient Short Form: Putting on and taking [...] at or below 17 Clinicians answer the [facility] Inpatient Short Form based on observed [...] Time (min): 32 min Kennedy Nielsen O.T., O.T.Demetris * Jaguar Cortez M.D. - 08/07/2023 10:37 [...] the bedside by our excellent group of BLUEPRINTER/PA (Jose and Kaitlynn) to assist with the ICU management of [...] been billed separately. * Bon Manuel Jr., PRESENTATION SPECIALIST, C.N.P., M.S.N. - 08/07/2023 2:54 PM CDT [...] per verbal report Bypass/Cross Clamp Times: 15 vijkhwj20 minutes Epicardial Pacer Leads: None Chest Tubes: [...] 23.93 kg/m?? and landing CI/SVRI unknown no Sulphur-Mikhail catheter on the following infusions: Clevedipine 2 [...] of care of this patient with the reporting consultant surgeon, Dr. Aguayo. Surgical Fellow at bedside, and CCS Dr. Nikunj Mera documented in this encounter Nursing Notes * Lakesha Vance S, R.N. - 08/11/2023 2:16 PM CDT Shift [...] R.N. 08/11/23 2:19 PM CDT * Nathanael Quezada C.R.T., JudieRLuz - 08/07/2023 5:44 PM CDT Patient is [...] 7.38 Electronically signed by: Nathanael Quezada C.R.T., Seda 08/07/23 5:45 PM CDT documented in this encounter OR Notes * Op Note - Richard Aguayo M.D. - 08/07/2023 8:36 PM CDT Pre-op Diagnosis Anemia Posthemorrhagic Acute (Blood Loss Anemia) Post-op Diagnosis Anemia Posthemorrhagic Acute (Blood Loss Anemia) Procedure Right-sided thoracoscopy (VATS) exploration. Removal of right pleural space clot. Surgeon Richard Aguayo MD Pharmacy Data Analyst Tristian Herbert [facility] Findings As expected. Complications None Operative Note [...] Brief Op Note - Tristian Herbert M.B., B.ChHomero, B.A.O. - 08/07/2023 8:36 PM CDT BRIEF OP NOTE Procedure(s) (LRB): THORACOSCOPY - WASHOUT POSSIBLE THORACOTOMY, CONTROL OF BLEEDING (Right) Surgeon(s) and Role: * Richard Aguayo M.D. - Primary * Tristian Herbert M.B., BAlthea, B.A.O. - Chemist Physical Anesthesia Type General Pre-operative Diagnosis Anemia Posthemorrhagic Acute (Blood Loss Anemia) Post-operative Diagnosis Anemia Posthemorrhagic Acute (Blood Loss Anemia) Surgical Procedure: Right VATS, evacuation of retained hemothorax, washout, control of chest wall bleeding Chest Tubes: Right pleural x 2 Right mediastinal Pacing wires: None Estimated Blood Loss 100 mL Specimens None Implants None Patient Condition:ICU: Stable Asad Herman, Alber, B.A.O.. * Op Note - Richard Aguayo [...] - Primary Suman Oh MD - Co-Primary Pharmacy Data Analyst Tristian Herebrt [facility] Chemist Physical A executive staff assistant actively participated and was necessary for one [...] the phrenic nerve. Of note, the phrenic nerve was identified and preserved during the course of the procedure. Pericardial retraction sutures wereplaced and brought out through a lateral stab wound. The cardioplegia cannula/tack vent was placed l ateral to the mammary vessels in the 3rd intercostal space. The patient was systemically heparinized. A 16 Azerbaijani cannula was inserted in the right superior vena cava through the previously placed catheter in the right internal jugular vein. This was done under echo guidance and Seldinger technique. A 17 Azerbaijani cannula was then placed in the right common femoral artery and a 25 Azerbaijani venous cannula placed in the right common femoral vein also with the aid of echocardiogram and Seldinger technique. The ports were then placed for the robot in the 2nd and 6 intercostal spaces laterally for the left and right arms as well as the 4th intercostal space medially for the left atrial retractor. The camera was then positioned through the thoracotomy working space. The robot was docked. The pleuralspace was flooded with carbon dioxide. With adequate [...] The left atrium was then sharply opened alongSondergaard's groove and the left atrial retractor positioned. The mitral valve was studied. 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 We effectively closed this functional cleft by reapproximating the lateral aspect of the P2 scallop overto the medial aspect of the P1 scallop in 2 running layers of 4-0 Prolene. A posterior mitral annuloplasty was then performed with a 32 mm SimuPlus [employer]weent[employer] band. This was sutured from trigone to [...] rhythm. The patient had been rewarmed to 37??centigrade. The left lung was re-inflated. We easily from cardiopulmonary bypass. Transesophageal echocardiogram revealed trivial residual mitral regurgitation with a gradient of mmHg with a heart rate of beats per minute. There [...] the right internal jugular vein as well as a right common femoral vein. We administered half [...] the thoracoscope and electro cautery. A 20 Azerbaijani channel drain was placed through the left atrial retractor port site and into the pericardial space through the oblique sinus. We distally placed a 36 Azerbaijani channel drain through the right arm port [...] Brief Op Note - Tristian Herbert M.B., B.Ch., B.A.O. 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 - Primary * Suman Oh M.D. - Co-Primary * Tristian Herbert M.B., B.Ch., B.A.O. - Chemist Physical * Reggie Geiger P.A.-C. - Other Maintenance Custodian Anesthesia Type General Pre-operative Diagnosis Regurgitation Mitral Post-operative Diagnosis Regurgitation Mitral Surgical Procedure: Robotic mitral valve repair, cleft closure and ring annuloplasty Chest Tubes: Pericardial and pleural Aj tubes Pacing wires: None Post-op echo findings: Trace MR. No regional wall changes. Normal EF Pump Time: 01:20 Cross Clamp Time: 00:49 Specimens None Implants Implant Name LRB Site No. Used Pharmacy Operations Specialist Mfr No. Serial No. Status Type CLP HRZN TI 6 CLP RUBEN - [id number] N/A 1 [employer] Stix [id number] Implanted Hardware e.g. pins/screws/rods DEV CRK SUT BLUNT CRV - [id number] N/A Mitral Valve 1 [employer] [id number] Implanted Hardware e.g. pins/screws/rods DEV CRK SUT BLUNT CRV - [id number] N/A Mitral Valve 1 [employer] [id number] Implanted Hardware e.g. pins/screws/rods DEV CRK SUT BLUNT CRV - [id number] N/A Mitral Valve 1 [employer] [id number] Implanted Hardware e.g. pins/screws/rods SUT FAST CRK QCK LD SUT FAST - [id number] N/A Mitral Valve 1 [employer] [id number] Implanted Hardware e.g. pins/screws/rods [facility] 32 - [id number] - [id number] N/A Mitral Valve 1 [employer] [id number] Implanted Cardiac Valve Prosthesis Patient Condition:ICU: Stable Asad Herman, B.Ch., B.A.O. * Op Note - Suman Oh M.D. 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 Severe mitral regurgitation Left ventricular dilatation. 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 Severe mitral regurgitation Left ventricular dilatation. Chemist Physical A executive staff assistant actively participated and was necessary for one [...] by anesthesia was replaced with a 16 Azerbaijani venous cannula using a Seldinger technique. Echo guidance was used to assure positioning of the cannulas and the guidewires. A 17French cannula was placed in the right femoral artery, and a 25 Azerbaijani venous cannula was placed inthe right femoral [...] aid of thoracoscope and cautery. A 20 Azerbaijani channel drain was placed through the atrial retractor port site in the 4th intercostal space anteriorly and posi tioned in the pericardium into the oblique sinus. The pericardium was closed with interrupted silk sutures. A 36 Azerbaijani channel drain was placed through the right [...] the protamine was administered. OP Note 08/06, 936pm, Olivier: The prior mini thoracotomy incision in the [...] questions. Thank you, STERLING Shaffer Clinical Documentation Wastewater Operator Query created by: STERLING Shaffer 08/28/2023 08:52 [...] (Latest Contact Info) Description 05/29/2024 12:15 PM BIOFUELS ENGINEERING MANAGER Clinical Communication Virtual Review in [address] [phone] 05/31/2024 11:00 AM BIOFUELS ENGINEERING MANAGER Appointment Department of Laboratory Medicine and Pathology, [facility], in [address] [phone] Patricia Parker APRN, C.N.P., D.N.P. [address] [place] [phone] 05/31/2024 2:00 PM BIOFUELS ENGINEERING MANAGER Comprehensive Visit Preoperative Evaluation Center in [place], [place] [address] [place] [phone] Arianna Jeffries M.D. [address] [place] [phone] 05/31/2024 2:45 PM BIOFUELS ENGINEERING MANAGER Comprehensive Visit Preoperative Evaluation Center in [place], [place] [address] [place] [phone] Chris Moreno, JOHNSON, C.N.P., M.S. [address] [place] [phone] 06/03/2024 8:15 AM BIOFUELS ENGINEERING MANAGER Hospital Encounter Post Anesthesia Care Unit in [place], [place] [address] [place] [phone] Tahir Moore M.D. [address] [place] [phone] 06/03/2024 8:15 AM BIOFUELS ENGINEERING MANAGER - 06/03/2024 2:12 PM BIOFUELS ENGINEERING MANAGER Surgery RST ROMB MAIN OR [address] [place] [phone] Tahir Moore M.D. [address] [place] [phone] C1-2 fusion 07/02/2024 11:00 AM BIOFUELS ENGINEERING MANAGER Procedure visit Division of Pain Medicine in [place], [place] [address] [place] [phone] Adam Barlow M.D. [address] [place] [phone] Pending Results Name Type Priority Associated Diagnoses [...] WITH FUSION Stenosis Spinal 06/03/2024 8:15 AM BIOFUELS ENGINEERING MANAGER Scheduled Referrals Name Type Priority Associated Diagnoses Orde r Schedule External referral cardiac rehab program ([facility]) Outpatient Referral Routine Repair Mitral Valve Status [...] POCT, B Routine 08/07/2023 8:50 AM CDT PREPARE PLATELETS STAT 08/03/2023 8:18 AM CDT [...] us Alvaro Persaud P.A.-C. IMG DIAGNOSTIC IMAGING [facility] Final Result * (TTE) 2D ECHO DOPPLER [...] Normal left ventricular chamber size. Calculated ejection [id number]%. 4. Abnormal ventricular septal motion - post-operative [...] complete report, see the Order-Level Documents. us Alvaro Persaud P.A.-C. CV ECHO PROCEDURES Final Res ult * ECG 12 Lead (08/11/2023 10:35 AM CDT) Ventricular Rate ECG/Min 82 BPM MUSE KS Interval 206 ms MUSE QRSD Interval 86 ms MUSE QT Interval 420 ms MUSE QTC Interval 490 ms MUSE P [place] 60 degrees MUSE R [place] 9 degrees MUSE T Wave [place] 14 degrees MUSE 08/11/2023 10:3 5 AM CDT 08/11/2023 10:36 AM CDT Impressions MUSE - 08/11/2023 10:36 AM CDT Normal sinus rhythm with 1st degree A-V block Nonspecific T wave abnormality Prolonged QT When compared with ECG of 09-AUG-2023 10:29, QT has lengthened KS interval has increased Reviewed by KEVIN Cheng Narrative Procedure Note Austin Rose M.D. - 08/11/2023 IMPRESSION: Normal sinus rhythm with 1st degree A-V block Nonspecific T wave abnormality Prolonged QT When compared with ECG of 09-AUG-2023 10:29, QT has lengthened KS interval has increased Reviewed by KEVIN Cheng us Alvaro Persaud P.A.-C. ECG ORDERABLES Final Result Performing Organization Address City/[facility] Co de Phone Number MUSE NA * (ABNORMAL) CBC without Differential (08/11/2023 10:04 AM CDT) Hemoglobin 10.1(L) 11.6 - 15.0 g/dL 08/11/2023 [...] BLOOD ADD-ON Final Result Performing Organization Address City/[facility] Co de Phone Number [facility] [address] [place] [address], [facility] DTL [facility][note 2] 200 [place] [address] * (ABNORMAL) Basic Metabolic Panel (08/11/2023 10:04 AM CDT) Pathologist [facility] Potassium, S 4.3 3.6 - 5.2 mmol/L [...] 10:04 AM CDT 08/11/2023 10:46 AM CDT Glory Minaya APRN, C.N.P. LAB BLOOD ADD-ON Final Result [facility] [address] [place] [address], [facility] DTL [facility][note 2] [address] [place] [address] * DX Chest Portable 1 View (08/10/2023 [...] CBC without Differential (08/10/2023 7:10 AM CDT) Hemoglobin 9.3(L) 11.6 - 15.0 g/dL 08/10/2023 [...] APRN, C.N.P. LAB BLOOD ADD-ON Final Result [facility] [address] [place] [address], [facility] [address] [place] [address] * (ABNORMAL) Basic Metabolic Panel (08/10/2023 7:10 [...] 7:10 AM CDT 08/10/2023 8:24 AM CDT us Socorro Sen APRN.N.P. LAB BLOOD ADD-ON Final Result Performing Organization Address City/[facility]/ZIP Co de Phone Number [facility] [address] [place] [address], [facility] [address] [place] [address] * Glucose, POCT (08/10/2023 6:34 AM CDT) Glucose, POCT, B 109 70 - 140 mg/dL 08/10/2023 6:39 AM CDT PCLX Site Capillary 08/10/2023 6:39 AM CDT PCLX Last Intake > 4 hours 08/10/2023 6:39 AM CDT PCLX Blood 08/10/2023 6:34 AM CDT 08/10/2023 6:39 AM CDT us Unknown Provider LAB POCT ORDERABLES-MANUAL Romsery l Result Performing Organization Address City/[facility]/ZIP Co de Phone Number POC [facility] 200 [place] [address], [facility] PCLX [facility] [address] [place] [address] * Glucose, POCT (08/09/2023 10:22 PM CDT) Glucose, POCT, B 119 70 - 140 mg/dL 08/09/2023 10:37 PM CDT PCLX Site Capillary 08/09/2023 10:37 PM CDT PCLX Last Intake 2-3 hours 08/09/2023 10:37 PM CDT PCLX Blood 08/09/2023 10:2 2 PM CDT 08/09/2023 10:37 PM CDT us Unknown Provider LAB POCT ORDERABLES-MANUAL Rosmery l Result Performing Organization Address City/[facility]/ZIP Co de Phone Number POC [facility] [address] [place] [address], [facility] PCLX [facility] POC 200 [place] [address] * Glucose, POCT (08/09/2023 5:33 PM CDT) Glucose, POCT, B 102 70 - 140 mg/dL 08/09/2023 5:44 PM CDT PCLX Site Capillary 08/09/2023 5:44 PM CDT PCLX Last Intake 2-3 hours 08/09/2023 5:44 PM CDT PCLX Blood 08/09/2023 5:33 PM CDT 08/09/2023 5:44 PM CDT us Unknown Provider LAB POCT ORDERABLES-MANUAL Rosmery l Result Performing Organization Address [facility] Co de Phone Number POC [facility] [address] [place] [address], [facility] PCLX [facility] POC 200 [place] [address] * Glucose, POCT (08/09/2023 4:34 PM CDT) Glucose, POCT, B 83 70 - 140 mg/dL 08/09/2023 5:44 PM CDT PCLX Site Capillary 08/09/2023 5:44 PM CDT PCLX Last Intake 2-3 hours 08/09/2023 5:44 PM CDT PCLX Blood 08/09/2023 4:34 PM CDT 08/09/2023 5:44 PM CDT us Unknown Provider LAB POCT ORDERABLES-MANUAL Rosmery l Result Performing Organization Address City/[facility]/ZIP Co de Phone Number POC [facility] [address] [place] [address], [facility] PCLX [facility] POC 200 [place] [address] * Glucose, POCT (08/09/2023 10:55 AM CDT) Glucose, POCT, B 104 70 - 140 mg/dL 08/09/2023 11:25 AM CDT PCLX Site Capillary 08/09/2023 11:25 AM CDT PCLX Last Intake 2-3 hours 08/09/2023 11:25 AM CDT PCLX Blood 08/09/2023 10:5 5 AM CDT 08/09/2023 11:25 AM CDT us Unknown Provider LAB POCT ORDERABLES-MANUAL Rosmery l Result Performing Organization Address [facility] Co de Phone Number [facility] 200 [place] [address], [facility] PCLX [facility] POC 200 [place] [address] * ECG 12 Lead (08/09/2023 10:29 AM CDT) Ventricular Rate ECG/Min 97 BPM MUSE KS Interval 152 ms MUSE QRSD Interval 82 ms MUSE QT Interval 374 ms MUSE QTC Interval 474 ms MUSE P [place] 67 degrees MUSE R [place] 0 degrees MUSE T Wave [place] 12 degrees MUSE 08/09/2023 10:2 9 AM CDT 08/09/2023 10:37 AM CDT Impressions MUSE - 08/09/2023 10:37 AM CDT Sinus rhythm Nonspecific T wave abnormality When compared with ECG of 07-AUG-2023 14:16, KS interval has decreased QT has shortened Reviewed by KEVIN Pittman Narrative Procedure Note Thomas Gaines M.D., M.P.H. - 08/09/2023 IMPRESSION: Sinus rhythm Nonspecific T wave abnormality When compared with ECG of 07-AUG-2023 14:16, KS interval has decreased QT has shortened Reviewed by KEVIN Pittman us Russell Waller P.A.-C., M.S. ECG ORDERABLE S Final Result Performing Organization Address [facility]/ZIP Co de Phone Number MUSE NA * (ABNORMAL) CBC without Differential [...] 6:43 AM CDT 08/09/2023 7:07 AM CDT us Glory Minaya APRN, C.N.P. LAB BLOOD ADD-ON Final Result Performing Organization Address City/[facility]/ZIP Co de Phone Number [facility] [address] [place] [address], [facility] DTL [facility][note 2] [address] [place] [address] * (ABNORMAL) Basic Metabolic Panel (08/09/2023 6:43 AM CDT) Potassium, S 3.7 3.6 - 5.2 mmol/L [...] 6:43 AM CDT 08/09/2023 7:25 AM CDT Glory Minaya APRN, C.N.P. LAB BLOOD ADD-ON Final Result [facility] [address] [place] [address], [facility] [address] [place] [address] * Glucose, POCT (08/09/2023 6:25 AM CDT) Glucose, POCT, B 127 70 - 140 mg/dL 08/09/2023 6:27 AM CDT PCLX Site Capillary 08/09/2023 6:27 AM CDT PCLX Last Intake > 4 hours 08/09/2023 6:27 AM CDT PCLX Blood 08/09/2023 6:25 AM CDT 08/09/2023 6:27 AM CDT us Unknown Provider LAB POCT ORDERABLES-MANUAL Rosmery l Result Performing Organization Address [facility] Co de Phone Number [facility] [address] [place] [address], [facility] PCLX [facility] POC [address] [place] [address] * (ABNORMAL) Glucose, POCT (08/08/2023 8:59 PM CDT) Glucose, POCT, B 147(H) 70 - 140 mg/dL 08/08/2023 9:03 PM CDT PCLX Site Capillary 08/08/2023 9:03 PM CDT PCLX Last Intake 1-2 hours 08/08/2023 9:03 PM CDT PCLX Blood 08/08/2023 8:59 PM CDT 08/08/2023 9:03 PM CDT us Unknown Provider LAB POCT ORDERABLES-MANUAL Edit ed Result - Final Performing Organization Address [facility] de Phone Number [facility] [address] [place] [address], [facility] PCLX [facility] POC [address] [place] [address] * (ABNORMAL) Glucose, POCT (08/08/2023 4:13 PM CDT) Glucose, POCT, B 146(H) 70 - 140 mg/dL 08/08/2023 4:39 PM CDT PCLX Site Capillary 08/08/2023 4:39 PM CDT PCLX Last Intake 2-3 hours 08/08/2023 4:39 PM CDT PCLX Blood 08/08/2023 4:13 PM CDT 08/08/2023 4:39 PM CDT us Unknown Provider LAB POCT ORDERABLES-MANUAL Rosmery l Result Performing Organization Address [facility] Co de Phone Number POC [facility] [address] [place] [address], [place] PCLX [facility] [place] POC [address] [place] [address] * Transfuse Red Blood Cells : (08/08/2023 1:03 PM CDT) Kaitlynn Ko APRN, C.N.P., D.N.P. BLOOD TRANSFUSION ORDERABLES Edited Result - Final * Transfuse Red Blood Cells : , 1 Units (08/08/2023 1:03 PM CDT) Kaitlynn Ko APRN, C.N.P., D.N.P. BLOOD TRANSFUSION ORDERABLES Edited Result - Final * (ABNORMAL) CBC without Differential (08/08/2023 9:12 AM CDT) Pathologist [facility] Hemoglobin 9.6(L) 11.6 - 15.0 g/dL 08/08/2023 [...] D.N.P. LAB BLOOD AD D-ON Final Result [facility] [address] [place] [address], [facility] STMA [facility] [address] [place] [address] * (ABNORMAL) Glucose, POCT (08/08/2023 8:30 AM CDT) Glucose, POCT, B 164(H) 70 - 140 mg/dL 08/08/2023 8:31 AM CDT PCLX Site ARTLINE 08/08/2023 8:31 AM CDT PCLX Blood 08/08/2023 8:30 AM CDT 08/08/2023 8:32 AM CDT us Unknown Provider LAB POCT ORDERABLES-MANUAL Rosmery l Result Performing Organization Address City/[facility]/ZIP Co de Phone Number POC [facility] [address] [place] [address], [facility] PCLX [facility] [place] POC [address] [place] [address] * Transfuse Red Blood Cells : (08/08/2023 [...] low SVC. Aortic calcifications. Degenerativechanges right shoulder. Tristian Kamara, Jani.Ch., B.A.O. IMG DIAGNOS TIC IMAGING PROCEDURES Final Result * Calcium, Ionized (08/08/2023 4:05 AM CDT) Calcium, Ionized, B 4.92 4.65 - 5.30 mg/dL 08/08/2023 4:24 AM CDT ST[facility] Blood 08/08/2023 4:05 AM CDT 08/08/2023 4:22 AM CDT Tristian Kamara, Jani.Ch., B.A.O. LAB BLOOD N ON ADD-ON Final Result [facility] [address] [place] [address], [facility] [address] [place] [address] * Patient Status (08/08/2023 4:05 AM CDT) O2 Flow 1.0 L/min 08/08/2023 4:22 AM CDT STMA Device NC 08/08/2023 4:22 AM CDT ST[facility] Spont. breaths/min 15 08/08/2023 4:22 AM CDT [facility] Blood 08/08/2023 4:05 AM CDT 08/08/2023 4:22 AM CDT Tristian Kamara, BAlthea, B.A.O. LAB BLOOD N ON ADD-ON Final Result Performing Organization Address City/[facility] Co de Phone Number [facility] [address] [place] [address], [facility] STMA [facility][note 2] [address] [place] [address] * (ABNORMAL) CBC without Differential (08/08/2023 4:05 AM CDT) Pathologist [facility] Hemoglobin 6.9(L) 11.6 - 15.0 g/dL 08/08/2023 [...] 08/08/2023 5:24 AM CDT us Glory Minaya PRESENTATION SPECIALIST, C.N.P. LAB BLOOD ADD-ON Final Result [facility] [address] [place] [address], [facility] DTL [facility][note 2] [address] [place] [address] * (ABNORMAL) Basic Metabolic Panel (08/08/2023 4:05 AM CDT) Pathologist [facility] Potassium, S 4.1 3.6 - 5.2 mmol/L [...] APRN, C.N.P. LAB BLOOD ADD-ON Final Result [facility] [address] [place] [address], [facility] DTL [facility][note 2] [address] [place] [address] * (ABNORMAL) Prothrombin Time (PT) (08/08/2023 4:05 AM CDT) [facility] Prothrombin Time, P 13.1(H) 9.4 - 12.5 sec 08/08/2023 5:55 AM CDT DT INR 1.2 0.9 - 1.1 08/08/2023 5:55 AM CDT DTL Comment: ----ADDITIONAL INFORMATION---- Standard intensity warfarin therapeutic range: 2.0 to 3.0 High intensity warfarin therapeutic range: 2.5 to 3.5 Blood (Blood, Venous) 08/08/2023 4:05 AM CDT 08/08/2023 5:24 AM CDT Tristian Kamara, B.Ch., B.A.O. LAB BLOOD A DD-ON Final Result Performing Organization Address City/[facility] [place] [address], [facility] [place] [address] * Lactate, Whole Blood (08/08/2023 4:05 AM CDT) [facility] Lactate, B 1.2 0.5 - 2.2 mmol/L 08/08/2023 4:24 AM CDT [facility] Blood (Blood, Arterial) 08/08/2023 4:05 AM CDT 08/08/2023 4:22 AM CDT Tristian Kamara, B.Ch., B.A.O. LAB BLOOD N ON ADD-ON Final Result Performing Organization Address City/[facility]/[place] [address], [place] [address] * (ABNORMAL) Blood Gas with Coox, Arterial (08/08/2023 4:05 AM CDT) [facility] pO2 93 83 - 108 mm Hg [...] CDT 08/08/2023 4:22 AM CDT Tristian Kamara, B.Ch., B.A.O. LAB BLOOD N ON ADD-ON Final Result [facility] [address] [place] [address], [facility] [address] [place] [address] * (ABNORMAL) Hepatic Function Panel (08/08/2023 4:05 AM CDT) Bilirubin, Total, S 1.3(H) 0.0 - 1.2 [...] 4:05 AM CDT 08/08/2023 5:39 AM CDT us Tristian Kamara, B.Ch., B.A.O. LAB BLOOD A DD-ON Final Result Performing Organization Address City/[facility]/ZIP Co de Phone Number [facility] [address] [facility] [address] [place] [address] * (ABNORMAL) Glucose, POCT (08/08/2023 4:00 AM CDT) [facility] Glucose, POCT, B 161(H) 70 - 140 mg/dL 08/08/2023 4:02 AM CDT PCLX Site ARTLINE 08/08/2023 4:02 AM CDT PCLX Blood 08/08/2023 4:00 AM CDT 08/08/2023 4:02 AM CDT us Unknown Provider LAB POCT ORDERABLES-MANUAL Rosmery l Result Performing Organization Address City/[facility]/ZIP Co de Phone Number POC [facility] [address] [place] [address], [facility] PCLX [facility] [address] [place] [address] * Lactate, B (08/08/2023 12:10 AM CDT) Lactate, B 1.2 0.5 - 2.2 mmol/L 08/08/2023 12:15 AM CDT [facility] Blood (Blood, Venous) 08/08/2023 12:10 AM CDT 08/08/2023 12:13 AM CDT Bon Manuel Jr., PRESENTATION SPECIALIST, C.N.P., M.S.N. LAB BLOO D NON ADD-ON Final Result Performing Organization Address City/[facility]/[place] [address] * Tissue Inhibitor of Metalloproteinase 2 (TIMP-2) and Insulin-like Growth Factor Binding Protein 7 (IGFBP-7) Risk Score, Random, Urine (08/07/2023 11:56 PM CDT) TIMP2/IGFBP7 BRIANNA Risk Score, U 0.14 <0.30 (ng/mL)(2) /1000 08/08/2023 1:58 AM CDT [facility] Comment: ----ADDITIONAL INFORMATION---- <0.30= <0.30 is considered low risk for acute kidney injury. 0.30-2.00= 0.30-2.00 indicates increased risk for acute kidney injury. >2.00= >2.00 indicates high risk for acute kidney injury. Urine (Urine, Catheter) 08/07/2023 11:56 PM CDT 08/08/2023 12:09 AM CDT Tristian Kamara, B.Ch., B.A.O. LAB URINE O RDERABLES Final Result Performing Organization Address City/[facility]/ZIP Co de Phone Number [address] [place] [address] * DX Chest Portable 1 View (08/07/2023 [...] changes of mitral valve repair. Aortic calcification. us Kaitlynn Ko APRN, C.N.P., D.N.P. IMG DIAGNOST IC IMAGING PROCEDURES Final Result * (ABNORMAL) Glucose, POCT (08/07/2023 11:08 PM CDT) Glucose, POCT, B 197(H) 70 - 140 mg/dL 08/07/2023 11:09 PM CDT PCLX Site ARTLINE 08/07/2023 11:09 PM CDT PCLX Blood 08/07/2023 11:0 8 PM CDT 08/07/2023 11:09 PM CDT us Unknown Provider LAB POCT ORDERABLES-MANUAL Rosmery l Result Performing Organization Address City/[facility]/ZIP Co de Phone Number POC [facility] [address] [place] [address], [facility] PCLX [facility] POC [address] [place] [address] * Fibrinogen (08/07/2023 11:04 PM CDT) Fibrinogen, P 288 200 - 393 mg/dL 08/07/2023 11:18 PM CDT [facility] Blood (Blood, Arterial) 08/07/2023 11:04 PM CDT 08/07/2023 11:07 PM CDT Kaitlynn Ko APRN, C.N.P., D.N.P. LAB BLOOD AD D-ON Final Result Performing Organization Address City/[facility] Co de Phone Number [facility] [address] [place] [address] * Prothrombin Time (PT) (08/07/2023 11:04 PM CDT) Prothrombin Time, P 12.1 9.4 - 12.5 sec 08/07/2023 11:18 PM CDT ST[facility] INR 1.1 0.9 - 1.1 08/07/2023 11:18 PM CDT [facility] Comment: ----ADDITIONAL INFORMATION---- Standard intensity warfarin therapeutic range: 2.0 to 3.0 High intensity warfarin therapeutic range: 2.5 to 3.5 Blood (Blood, Venous) 08/07/2023 11:04 PM CDT 08/07/2023 11:07 PM CDT Kaitlynn Ko APRN, C.N.P., D.N.P. LAB BLOOD AD D-ON Final Result Performing Organization Address City/[facility]/ZIP Co de Phone Number [facility] [address] [place] [address], [facility]note 2[facility] [address] [place] [address] * Patient Status (08/07/2023 11:04 PM CDT) Pathologist [facility] O2 Flow 1.0 L/min 08/07/2023 11: 07 PM CDT ST[facility] Device NC 08/07/2023 11: 07 PM CDT [facility] Blood 08/07/2023 11:0 4 PM CDT 08/07/2023 11:07 PM CDT Kaitlynn Ko APRN, C.N.P., D.N.P. LAB BLOOD NO N ADD-ON Final Result [facility] [address] [place] [address] * (ABNORMAL) Calcium, Ionized (08/07/2023 11:04 PM CDT) [facility] Calcium, Ionized, B 5.32(H) 4.65 - 5.30 mg/dL 08/07/2023 11:11 PM CDT [facility] Blood (Blood, Venous) 08/07/2023 11:04 PM CDT 08/07/2023 11:07 PM CDT Kaitlynn Ko APRN, C.N.P., D.N.P. LAB BLOOD NO N ADD-ON Final Result [facility] [address] [place], [place] [address] [place] [address] 200 [place] [address] * (ABNORMAL) Basic Metabolic Panel (08/07/2023 11:04 PM CDT) [facility] Potassium, P 3.8 3.6 - 5.2 [...] D.N.P. LAB BLOOD AD D-ON Final Result [facility] [address] [place] [address], [facility] [address] [place] [address] * (ABNORMAL) CBC without Differential (08/07/2023 11:04 PM CDT) Hemoglobin 9.1(L) 11.6 - 15.0 g/dL 08/07/2023 [...] D.N.P. LAB BLOOD AD D-ON Final Result [facility] [address] [place] [address] * Lactate (08/07/2023 11:04 PM CDT) [facility] Lactate, P 1.7 0.5 - 2.2 mmol/L 08/07/2023 11:34 PM CDT [facility] Blood (Blood, Arterial) 08/07/2023 11:04 PM CDT 08/07/2023 11:07 PM CDT Kaitlynn Ko APRN, C.N.P., D.N.P. LAB BLOOD NO N ADD-ON Final Result [facility] [address] [place] [address], [facility] 200 [place] [address] * (ABNORMAL) Blood Gas with Coox, Arterial (08/07/2023 11:04 PM CDT) [facility] pO2 67(L) 83 - 108 mm Hg [...] LAB BLOOD NO N ADD-ON Final Result [facility] [address] [place] [address], [facility][note 2] [address] [place] [address] * Transfuse Red Blood Cells : (08/07/2023 10:06 PM CDT) us Bon Manuel Jr., JOHNSON, C.N.P., M.S.N. BLOOD TR ANSFUSION ORDERABLES Final Result * Transfuse Red Blood Cells : , 1 Units (08/07/2023 10:06 PM CDT) Bon Manuel Jr., PRESENTATION SPECIALIST, C.N.P., M.S.N. BLOOD TR ANSFUSION ORDERABLES Final Result * Patient Status (08/07/2023 8:45 PM CDT) Pathologist [facility] FIO2 1.00 0.21=AIR 08/07/2023 8:4 5 PM CDT [facility] Blood 08/07/2023 8:45 PM CDT 08/07/2023 8:45 PM CDT Armani Quispe PRESENTATION SPECIALIST, ZONING ADMINISTRATOR, DNAP LAB BLOOD NON A DD-ON Final Result Performing Organization Address City/[facility]/ZIP Co de Phone Number [facility] 200 [place] [address], [facility] 200 [place] [address] * Lactate, B - Intra-op (08/07/2023 8:45 PM CDT) [facility] Lactate, B 1.1 0.5 - 2.2 mmol/L 08/07/2023 8:48 PM CDT [facility] Blood (Blood, Venous) 08/07/2023 8:45 PM CDT 08/07/2023 8:45 PM CDT Nba Ramírez M.D. LAB BLOOD NON ADD-ON Fin al Result [facility] [address] [place] [address], [facility] 200 [place] [address] * (ABNORMAL) Glucose, Whole Blood (08/07/2023 8:45 PM CDT) [facility] Glucose 174(H) 70 - 140 mg/dL 08/07/2023 8:48 PM CDT [facility] Blood (Blood, Arterial Line) 08/07/2023 8:45 PM CDT 08/07/2023 8:45 PM CDT us Nba Ramírez M.D. LAB BLOOD ADD-ON Final R esult Performing Organization Address City/[facility]/ZIP Co de Phone Number [facility] 200 [place] [address], [facility] 200 [place] [address] * Potassium, Blood (08/07/2023 8:45 PM CDT) Potassium, B 3.7 3.6 - 5.2 mmol/L 08/07/2023 8:49 PM CDT [facility] Blood (Blood, Arterial Line) 08/07/2023 8:45 PM CDT 08/07/2023 8:45 PM CDT Nba Ramírez M.D. LAB BLOOD NON ADD-ON Fin al Result Performing Organization Address [facility] Co de Phone Number [facility] [address] [place] [address], [facility] 200 [place] [address] * Sodium, B (08/07/2023 8:45 PM CDT) Sodium, B 136 135 - 145 mmol/L 08/07/2023 8:48 PM CDT [facility] Blood (Blood, Arterial Line) 08/07/2023 8:45 PM CDT 08/07/2023 8:45 PM CDT us Nba Ramírez M.D. LAB BLOOD NON ADD-ON Fin al Result Performing Organization Address City/[facility] Co de Phone Number [facility] 200 [place], [place] [address] [place] [address] 200 [place] [address] * (ABNORMAL) Calcium, Ionized (08/07/2023 8:45 PM CDT) Calcium, Ionized, B 5.51(H) 4.65 - 5.30 mg/dL 08/07/2023 8:49 PM CDT [facility] Blood (Blood, Arterial Line) 08/07/2023 8:45 PM CDT 08/07/2023 8:45 PM CDT us Nba Ramírez M.D. LAB BLOOD NON ADD-ON Fin al Result [facility] [address] [place] [address], [facility] ST[facility] [place][note 2] [address] [place] [address] * (ABNORMAL) Blood Gas with Coox, Arterial [...] ADD-ON Fin al Result Performing Organization Address City/[facility]/ZIP Co de Phone Number [facility] [address] [place] [address] * Prothrombin Time (PT) (08/07/2023 8:43 PM CDT) Pathologist [facility] Prothrombin Time, P 12.5 9.4 - 12.5 sec 08/07/2023 8:54 PM CDT [facility] IN[facility] 1.1 0.9 - 1.1 08/07/2023 8:54 PM CDT [facility] Comment: ----ADDITIONAL INFORMATION---- Standard intensity warfarin therapeutic range: 2.0 to 3.0 High intensity warfarin therapeutic range: 2.5 to 3.5 Blood (Blood, Arterial Line) 08/07/2023 8:43 PM CDT 08/07/2023 8:43 PM CDT Nba Ramírez M.D. LAB BLOOD ADD-ON Final R esult Performing Organization Address [facility] Co de Phone Number [facility] [address] [place], [place] [address] [place] [address] 200 [place] [address] * (ABNORMAL) Platelet Count (08/07/2023 8:43 PM CDT) Pathologist [facility] Platelet Count 147(L) 157 - 371 x10(9)/L 08/07/2023 8:48 PM CDT [facility] Blood (Blood, Arterial Line) 08/07/2023 8:43 PM CDT 08/07/2023 8:43 PM CDT Nba Ramírez M.D. LAB BLOOD ADD-ON Final R esult Performing Organization Address City/[facility]/ZIP Co de Phone Number [facility] [address] [place] 200 [place] [address] * Fibrinogen (08/07/2023 8:43 PM CDT) Pathologist [facility] Fibrinogen, P 264 200 - 393 mg/dL 08/07/2023 8:54 PM CDT [facility] Blood (Blood, Arterial Line) 08/07/2023 8:43 PM CDT 08/07/2023 8:43 PM CDT Nba Ramírez M.D. LAB BLOOD ADD-ON Final R [facility] 200 [place] [address], [facility] 200 [place] [address] * APTT (Activated Partial Thromboplastin Time) (08/07/2023 8:43 PM CDT) [facility] Activated Partial Thrombopl Time, P 27 25 - 37 sec 08/07/2023 8:57 PM CDT [facility] Blood (Blood, Arterial Line) 08/07/2023 8:43 PM CDT 08/07/2023 8:43 PM CDT Nba Ramírez M.D. LAB BLOOD ADD-ON Final R esult [facility] 200 [place] [address], [facility] 200 [place] [address] * ACT (Activated Clotting Time), POCT (08/07/2023 8:38 PM CDT) Pathologist [facility] Activated Clotting Time 138 82 - 152 sec 08/07/2023 8:41 PM CDT PCLX 08/07/2023 8:3 8 PM CDT 08/07/2023 8:41 PM CDT Unknown Provider LAB POCT ORDERABLES - DEVICE Fi nal Result Performing Organization Address [facility] Co de Phone Number [facility] [address] [place] [address], [facility] PCLX [facility] POC [address] [place] [address] * Thromboelastograph, Kaolin + Heparinase (08/07/2023 7:18 PM CDT) R-Heparinase, TEG 5.8 1.9 - 6.5 min 08/07/2023 8:36 PM CDT [facility] K-Heparinase, TEG 1.2 0.9 - 1.8 min 08/07/2023 8:36 PM CDT [facility] Angle-Heparina se, TEG 73.7 65.5 - 77.1 degrees 08/07/2023 8:36 PM CDT [facility] MA-Heparinase, TEG 64.0 58.2 - 76.2 mm 08/07/2023 8:36 PM CDT [facility] [id number] e, TEG 0.1 0.0 - 4.7 % 08/07/2023 8:36 PM CDT [facility] [id number]-[id number] e, TEG 1.9 0.0 - 15.0 % 08/07/2023 8:36 PM CDT [facility] Blood (Blood, Arterial) 08/07/2023 7:18 PM CDT 08/07/2023 7:18 PM CDT us Yennifer Jani Kennedy APRN, C.N.P., D.N.P. LAB BLOOD NON ADD-ON Final Result Performing Organization Address City/[facility]/ZIP Co de Phone Number [facility] [place] [address] [place] [address], [facility] ST[facility] [place][note 2] [address] [place] [address] * Fibrinogen (08/07/2023 7:10 PM CDT) Fibrinogen, P 288 200 - 393 mg/dL 08/07/2023 7:27 PM CDT [facility] Blood (Blood, Venous) 08/07/2023 7:10 PM CDT 08/07/2023 7:15 PM CDT Bon Manuel Jr., Reza ORNELASNAric., M.S.N. LAB BLOO D ADD-ON Final Result Performing Organization Address City/[facility] Co de Phone Number [facility] 200 [place] [address], [facility] 200 [place] [address] * Prothrombin Time (PT) (08/07/2023 7:10 PM CDT) Prothrombin Time, P 11.7 9.4 - 12.5 sec 08/07/2023 7:28 PM CDT [facility] INR 1.1 0.9 - 1.1 08/07/2023 7:28 PM CDT [facility] Comment: ----ADDITIONAL INFORMATION---- Standard intensity warfarin therapeutic range: 2.0 to 3.0 High intensity warfarin therapeutic range: 2.5 to 3.5 Blood (Blood, Venous) 08/07/2023 7:10 PM CDT 08/07/2023 7:15 PM CDT Bon Manuel Jr., Ciara ORNELAS., M.S.N. LAB BLOO D ADD-ON Final Result Performing Organization Address [facility] Co de Phone Number [facility] 200 [place] [address], [facility] 200 [place] [address] * (ABNORMAL) CBC without Differential (08/07/2023 7:10 PM CDT) Hemoglobin 8.1(L) 11.6 - 15.0 g/dL 08/07/2023 [...] 08/07/2023 7:15 PM CDT Bon Manuel Jr., JOHNSON, C.N.P., M.S.N. LAB BLOO D ADD-ON Final Result Performing Organization Address City/[facility]/ZIP Co de Phone Number [facility] [address] [place] [address], [facility] 200 [place] [address] * APTT (Activated Partial Thromboplastin Time) (08/07/2023 7:10 PM CDT) [facility] Activated Partial Thrombopl Time, P 28 25 - 37 sec 08/07/2023 7:30 PM CDT [facility] Blood (Blood, Venous) 08/07/2023 7:10 PM CDT 08/07/2023 7:15 PM CDT us Bon Manuel Jr., JOHNSON, C.N.P., M.S.N. LAB BLOO D ADD-ON Final Result [facility] [address] [place] [address], [facility] [address] [place] [address] * DX Chest Portable 1 View (08/07/2023 [...] projects over the right lateral chest wall. Bon Manuel Jr., PRESENTATION SPECIALIST, C.N .P., M.S.N. IMG DIAGNOSTIC IMAGING PROCEDURES [...] Result * Potassium (08/07/2023 5:21 PM CDT) [facility] Potassium, P 4.4 3.6 - 5.2 mmol/L 08/07/2023 5:45 PM CDT [facility] Blood (Blood, Venous) 08/07/2023 5:21 PM CDT 08/07/2023 5:32 PM CDT Bon Manuel Jr., APRN, C.N.P., M.S.N. LAB BLOO D ADD-ON Final Result [facility] [address] [place] [address], [facility] [address] [place] [address] * (ABNORMAL) Glucose, POCT (08/07/2023 5:16 PM CDT) Glucose, POCT, B 162(H) 70 - 140 mg/dL 08/07/2023 5:24 PM CDT PCLX Site ARTLINE 08/07/2023 5:24 PM CDT PCLX Blood 08/07/2023 5:16 PM CDT 08/07/2023 5:24 PM CDT Unknown Provider LAB POCT ORDERABLES-MANUAL Rosmery l Result Performing Organization Address [facility] Co de Phone Number POC [facility] 200 [place] [address], [facility] PCLX [facility] POC 200 [place] [address] * Prothrombin Time (PT) (08/07/2023 5:16 PM CDT) Pathologist [facility] Prothrombin Time, P 12.3 9.4 - 12.5 sec 08/07/2023 5:43 PM CDT [facility] INR 1.1 0.9 - 1.1 08/07/2023 5:43 PM CDT [facility] Comment: ----ADDITIONAL INFORMATION---- Standard intensity warfarin therapeutic range: 2.0 to 3.0 High intensity warfarin therapeutic range: 2.5 to 3.5 Blood (Blood, Arterial) 08/07/2023 5:16 PM CDT 08/07/2023 5:32 PM CDT us Yennifer Kennedy APRN, C.N.P., D.N.P. LAB BLOOD ADD- ON Final Result Performing Organization Address City/[facility] Co de Phone Number [facility] 200 [place] [address], [facility] STMA [facility] [place][note 2] 200 [place] [address] * Fibrinogen (08/07/2023 5:16 PM CDT) Pathologist [facility] Fibrinogen, P 280 200 - 393 mg/dL 08/07/2023 5:42 PM CDT [facility] Blood (Blood, Arterial) 08/07/2023 5:16 PM CDT 08/07/2023 5:32 PM CDT Yennifer Kennedy APRN, C.N.P., D.N.P. LAB BLOOD ADD- ON Final Result [facility] [address] [place] [address], [facility] ST[facility] [place][note 2] [address] [place] [address] * (ABNORMAL) CBC with Differential, Blood (08/07/2023 5:16 PM CDT) Pathologist [facility] Hemoglobin 8.6(L) 11.6 - 15.0 g/dL 08/07/2023 [...] - 0.08 x10(9)/L 08/07/2023 5:38 PM CDT [facility] Blood (Blood, Venous) 08/07/2023 5:16 PM CDT 08/07/2023 5:32 PM CDT Result [facility] Yennifer Kennedy APRN, C.N.P., D.N.P. LAB BLOOD ADD- ON Final Result Performing Organization Address City/State/[facility] Co de Phone Number [facility] [address] [place] [address], [facility] ST[facility] [place][note 2] [address] [place] [address] [facility] [address] [place] [address] * Transfuse Fresh Frozen Plasma :Bleeding with altered coagulation; 180 mL/hr (08/07/2023 4:27 PM CDT) Result [facility] Yennifer Kennedy APRN, C.N.P., D.N.P. BLOOD TRANSFUS ION ORDERABLES Final Result * Transfuse Fresh Frozen Plasma :Bleeding with altered coagulation; 180 mL/hr, 2 Units (08/07/2023 4:27 PM CDT) Result [facility] Yennifer Kennedy APRN C.N.P., D.N.P. BLOOD TRANSFUS ION ORDERABLES Final Result * Transfuse Red Blood Cells : (08/07/2023 4:27 PM CDT) Result [facility] Yennifer Kennedy APRN, C.N.P., D.N.P. BLOOD TRANSFUS ION ORDERABLES Final Result * Transfuse Red Blood Cells : , 1 Units (08/07/2023 4:27 PM CDT) Result [facility] Yennifer Kennedy APRN, C.N.P., D.N.P. BLOOD TRANSFUS ION ORDERABLES Final Result * Transfuse Fresh Frozen Plasma :Bleeding with altered coagulation; 180 mL/hr (08/07/2023 3:21 PM CDT) Result [facility] Yennifer Kennedy APRN, C.N.P., D.N.P. BLOOD TRANSFUS [...] distalSVC. Right apically pointing pleural chest tube. Tristian Kamara, B.Ch., B.A.O. IMG DIAGNOS TIC IMAGING PROCEDURES Final Result * ECG 12 Lead (08/07/2023 2:16 PM CDT) Ventricular Rate ECG/Min 76 BPM MUSE [place] Interval 218 ms MUSE QRSD Interval 86 ms MUSE QT Interval 450 ms MUSE QTC Interval 506 ms MUSE P [place] 83 degrees MUSE R [place] 60 degrees MUSE T Wave [place] 86 degrees MUSE 08/07/2023 2:16 PM CDT [...] * Patient Status (08/07/2023 2:07 PM CDT) Pathologist [facility] FIO2 0.21 0.21=AIR 08/07/2023 2:10 PM CDT [facility] Spont. breaths/min 18 08/07/2023 2:10 PM CDT [facility] Blood 08/07/2023 2:07 PM CDT 08/07/2023 2:10 PM CDT us Tristian Kamara, B.Ch., B.A.O. LAB BLOOD N ON ADD-ON Final Result [facility] [address] [place] [address], [facility] ST[facility] [place][note 2] [address] [place] [address] * Lactate, Whole Blood (08/07/2023 2:07 PM CDT) Pathologist [facility] Lactate, B 0.7 0.5 - 2.2 mmol/L 08/07/2023 2:13 PM CDT [facility] Blood (Blood, Arterial) 08/07/2023 2:07 PM CDT 08/07/2023 2:10 PM CDT Tristian Kamara, Jani.Ch., B.A.O. LAB BLOOD N ON ADD-ON Final Result Performing Organization Address City/[facility]/ZIP Co de Phone Number [facility] [address] [place] [address], [facility] [address] [place] [address] * (ABNORMAL) Calcium, Ionized (08/07/2023 2:07 PM CDT) Calcium, Ionized, B 4.61(L) 4.65 - 5.30 mg/dL 08/07/2023 2:14 PM CDT [facility] Blood (Blood, Arterial) 08/07/2023 2:07 PM CDT 08/07/2023 2:10 PM CDT Tristian Kamara, MuCh., B.A.O. LAB BLOOD N ON ADD-ON Final Result Performing Organization Address City/[facility] Co de Phone Number [facility] [address] [place] [address], [facility] [address] [place] [address] * (ABNORMAL) Blood Gas with Coox, Arterial [...] ON ADD-ON Final Result Performing Organization Address City/[facility]/ZIP Co de Phone Number [facility] [address] [place] [address], [facility] [address] [place] [address] * (ABNORMAL) Glucose, POCT (08/07/2023 2:06 PM CDT) [facility] Glucose, POCT, B 152(H) 70 - 140 mg/dL 08/07/2023 2:40 PM CDT PCLX Blood 08/07/2023 2:06 PM CDT 08/07/2023 2:41 PM CDT us Unknown Provider LAB POCT ORDERABLES-MANUAL Rosmery l Result [facility] [address] [place] [address], [facility] PCLX [facility] [address] [place] [address] * Fibrinogen (08/07/2023 2:06 PM CDT) Pathologist [facility] Fibrinogen, P 312 200 - 393 mg/dL 08/07/2023 2:22 PM CDT [facility] Blood (Blood, Venous) 08/07/2023 2:06 PM CDT 08/07/2023 2:10 PM CDT Tristian Kamara, Jani.Ch., B.A.O. LAB BLOOD A DD-ON Final Result [facility] [address] [place] [address] * (ABNORMAL) Prothrombin Time (PT) (08/07/2023 2:06 PM CDT) [facility] Prothrombin Time, P 13.1(H) 9.4 - 12.5 sec 08/07/2023 2:22 PM CDT [facility] IN[facility] 1.2 0.9 - 1.1 08/07/2023 2:22 PM CDT [facility] Comment: ----ADDITIONAL INFORMATION---- Standard intensity warfarin therapeutic range: 2.0 to 3.0 High intensity warfarin therapeutic range: 2.5 to 3.5 Blood (Blood, Venous) 08/07/2023 2:06 PM CDT 08/07/2023 2:10 PM CDT Tristian Kamara, B.Ch., B.A.O. LAB BLOOD A DD-ON Final Result [facility] [address] [place] [place] [address] [place] [address] 200 [place] [address] * APTT (Activated Partial Thromboplastin Time) (08/07/2023 2:06 PM CDT) Pathologist [facility] Activated Partial Thrombopl Time, P 31 25 - 37 sec 08/07/2023 2:30 PM CDT [facility] Blood (Blood, Venous) 08/07/2023 2:06 PM CDT 08/07/2023 2:10 PM CDT Tristian Kamara, MuCh., B.A.O. LAB BLOOD A DD-ON Final Result Performing Organization Address City/[facility] Co de Phone Number [facility] [address] [facility] [place][note 2] [address] [place] [address] * (ABNORMAL) CBC without Differential (08/07/2023 2:06 PM CDT) Pathologist [facility] Hemoglobin 10.0(L) 11.6 - 15.0 g/dL 08/07/2023 [...] CDT 08/07/2023 2:10 PM CDT Tristian Kamara, Jain.Ch., B.A.O. LAB BLOOD A DD-ON Final Result Performing Organization Address City/[facility]/ZIP Co de Phone Number [facility] [address] [place] [address], [facility] [address] [place] [address] * (ABNORMAL) Basic Metabolic Panel (08/07/2023 2:06 [...] us Tristian Kamara, B.Ch., B.A.O. LAB BLOOD A DD-ON Final Result [facility] [address] [place] [address], [facility][note 2] [address] [place] [address] * Transfuse Platelets : (08/07/2023 1:38 PM CDT) Result [facility] Yaritza Culver M.D., Ph.D. BLOOD TRANSFUSION ORDER VONNIE Final Result * Transfuse Platelets : (08/07/2023 1:14 PM CDT) Result [facility] Yaritza Culver M.D., Ph.D. BLOOD TRANSFUSION ORDER VONNIE Final Result * Lactate, B - Intra-op (08/07/2023 12:45 PM CDT) Pathologist [facility] Lactate, B 0.6 0.5 - 2.2 mmol/L 08/07/2023 12:47 PM CDT [facility] Blood (Blood, Venous) 08/07/2023 12:45 PM CDT 08/07/2023 12:45 PM CDT Yaritza Culver M.D., Ph.D. LAB BLOOD NON ADD-ON Fi nal Result Performing Organization Address City/[facility]/ZIP Co de Phone Number [facility] [address] [place] [address], [facility] [address] [place] [address] * Glucose, Whole Blood (08/07/2023 12:45 PM CDT) [facility] Glucose 133 70 - 140 mg/dL 08/07/2023 12:47 PM CDT [facility] Blood (Blood, Arterial Line) 08/07/2023 12:45 PM CDT 08/07/2023 12:45 PM CDT Result [facility] Yaritza Culver M.D., Ph.D. LAB BLOOD ADD-ON Final Result Performing Organization Address City/[facility]/ZIP Co de Phone Number [facility] [address] [place] [address], [facility] [address] [place] [address] * (ABNORMAL) Potassium, Blood (08/07/2023 12:45 PM CDT) Potassium, B 3.1(L) 3.6 - 5.2 mmol/L 08/07/2023 12:47 PM CDT [facility] Blood (Blood, Arterial Line) 08/07/2023 12:45 PM CDT 08/07/2023 12:45 PM CDT Yaritza Culver M.D., Ph.D. LAB BLOOD NON ADD-ON Fi nal Result [facility] [address] [place] [address], [facility] 200 [place] [address] * Sodium, B (08/07/2023 12:45 PM CDT) Sodium, B 136 135 - 145 mmol/L 08/07/2023 12:47 PM CDT [facility] Blood (Blood, Arterial Line) 08/07/2023 12:45 PM CDT 08/07/2023 12:45 PM CDT Yaritza Culver M.D., Ph.D. LAB BLOOD NON ADD-ON Fi nal Result Performing Organization Address City/[facility] Co de Phone Number [facility] [address] [place] [address], [facility] [address] [place] [address] * Calcium, Ionized (08/07/2023 12:45 PM CDT) Calcium, Ionized, B 4.68 4.65 - 5.30 mg/dL 08/07/2023 12:47 PM CDT [facility] Blood (Blood, Arterial Line) 08/07/2023 12:45 PM CDT 08/07/2023 12:45 PM CDT Yaritza Culver M.D., Ph.D. LAB BLOOD NON ADD-ON Fi nal Result [facility] [address] [place], [place] [address] [address] [place] [address] * (ABNORMAL) Blood Gas with Coox, Arterial (08/07/2023 12:45 PM CDT) pO2 237(H) 83 - 108 mm Hg [...] 21.0 vol % 08/07/2023 12:47 PM CDT [facility] Blood (Blood, Arterial Line) 08/07/2023 12:45 PM CDT 08/07/2023 12:45 PM CDT us Yaritza Culver M.D., Ph.D. LAB BLOOD NON ADD-ON Fi nal Result [facility] [address] [place] [address], [facility] [address] [place] [address] * Transfuse autologous RBC (Cell Salvage) : (08/07/2023 12:42 PM CDT) Yaritza Culver M.D., Ph.D. BLOOD TRANSFUSION ORDER VONNIE Final Result * (ABNORMAL) Platelet Count (08/07/2023 12:03 PM CDT) Platelet Count 80(L) 157 - 371 x10(9)/L 08/07/2023 12:13 PM CDT [facility] Blood (Blood, Arterial Line) 08/07/2023 12:03 PM CDT 08/07/2023 12:03 PM CDT Yaritza Culver M.D., Ph.D. LAB BLOOD ADD-ON Final Result Performing Organization Address City/[facility] Co de Phone Number [facility] [address] [place] [address], [facility] [address] [place] [address] * (ABNORMAL) Prothrombin Time (PT) (08/07/2023 12:03 PM CDT) Prothrombin Time, P 16.6(H) 9.4 - 12.5 sec 08/07/2023 12:19 PM CDT [facility] 1.5 0.9 - 1.1 08/07/2023 12:19 PM CDT [facility] Comment: ----ADDITIONAL INFORMATION---- Standard intensity warfarin therapeutic range: 2.0 to 3.0 High intensity warfarin therapeutic range: 2.5 to 3.5 Blood (Blood, Arterial Line) 08/07/2023 12:03 PM CDT 08/07/2023 12:03 PM CDT Yaritza Culver M.D., Ph.D. LAB BLOOD ADD-ON Final Result Performing Organization Address City/[facility] Co de Phone Number [facility] [address] [place] [address], [facility] [address] [place] [address] * Fibrinogen (08/07/2023 12:03 PM CDT) Pathologist [facility] Fibrinogen, P 284 200 - 393 mg/dL 08/07/2023 12:18 PM CDT [facility] Blood (Blood, Arterial Line) 08/07/2023 12:03 PM CDT 08/07/2023 12:03 PM CDT Yaritza Culver M.D., Ph.D. LAB BLOOD ADD-ON Final Result Performing Organization Address City/[facility]/ZIP Co de Phone Number [facility] [address] [place] [address], [facility] [address] [place] [address] * APTT (Activated Partial Thromboplastin Time) (08/07/2023 12:03 PM CDT) [facility] Activated Partial Thrombopl Time, P 30 25 - 37 sec 08/07/2023 12:21 PM CDT [facility] Blood (Blood, Arterial Line) 08/07/2023 12:03 PM CDT 08/07/2023 12:03 PM CDT Result [facility] Yaritza Culver M.D., Ph.D. LAB BLOOD ADD-ON Final Result Performing Organization Address [facility] [facility]/ZIP Co de Phone Number [facility] [address] [place] [address], [facility] [address] [place] [address] * ACT (Activated Clotting Time), POCT (08/07/2023 12:00 PM CDT) [facility] Activated Clotting Time 132 82 - 152 sec 08/07/2023 12:02 PM CDT PCLX 08/07/2023 12:0 0 PM CDT 08/07/2023 12:02 PM CDT Unknown Provider LAB POCT ORDERABLES - DEVICE Fi nal Result POC [facility] [address] [place] [address], [facility] PCLX [facility] POC [address] [place] [address] * (ABNORMAL) ACT (Activated Clotting Time), POCT (08/07/2023 11:30 AM CDT) Activated Clotting Time 491(H) 82 - 152 sec 08/07/2023 11:38 AM CDT PCLX 08/07/2023 11:3 0 AM CDT 08/07/2023 11:38 AM CDT us Unknown Provider LAB POCT ORDERABLES - DEVICE Fi nal Result Performing Organization Address [facility]/ZIP Co de Phone Number POC [facility] [address] [place] [address], [facility] PCLX [facility] POC [address] [place] [address] * Glucose, POCT (08/07/2023 11:28 AM CDT) Glucose, POCT, B 99 70 - 140 mg/dL 08/07/2023 11:29 AM CDT PCSM Blood 08/07/2023 11:2 8 AM CDT 08/07/2023 11:29 AM CDT us Unknown Provider LAB POCT ORDERABLES-MANUAL Rosmery l Result Performing Organization Address City/[facility]/ZIP Co de Phone Number POC RST [facility] [address] [place] [address], [facility] PCSM [facility] POC [address] [place] [address] * (ABNORMAL) ACT (Activated Clotting Time), POCT (08/07/2023 10:56 AM CDT) Activated Clotting Time 619(H) 82 - 152 sec 08/07/2023 11:06 AM CDT PCLX 08/07/2023 10:5 6 AM CDT 08/07/2023 11:06 AM CDT us Unknown Provider LAB POCT ORDERABLES - DEVICE Fi nal Result Performing Organization Address City/[facility]/ZIP Co de Phone Number POC [facility] [address] [place] [address], [facility] PCLX [facility] POC [address] [place] [address] * Glucose, POCT (08/07/2023 10:55 AM CDT) Glucose, POCT, B 99 70 - 140 mg/dL 08/07/2023 10:56 AM CDT PCS Blood 08/07/2023 10:5 5 AM CDT 08/07/2023 10:56 AM CDT us Unknown Provider LAB POCT ORDERABLES-MANUAL Rosmery l Result Performing Organization Address City/[facility] Co de Phone Number POC RST [facility] [address] [place], [place] [id number] [place] [address] PCSM [facility] POC [address] [place] [address] * Transfuse Red Blood Cells : (08/07/2023 10:43 AM CDT) us Yaritza Culver M.D., Ph.D. BLOOD TRANSFUSION ORDER VONNIE Final Result * Glucose, Whole Blood (08/07/2023 10:33 AM CDT) Glucose 94 70 - 140 mg/dL 08/07/2023 10:34 AM CDT [facility] Blood (Blood, Arterial Line) 08/07/2023 10:33 AM CDT 08/07/2023 10:33 AM CDT us Richard Aguayo M.D. LAB BLOOD ADD-ON Final Resu lt Performing Organization Address City/[facility]/ZIP Co de Phone Number [facility] [address] [place] [address], [facility] [address] [place] [address] * (ABNORMAL) Potassium, Blood (08/07/2023 10:33 AM CDT) Potassium, B 2.7(L) 3.6 - 5.2 mmol/L 08/07/2023 10:35 AM CDT [facility] Blood (Blood, Arterial Line) 08/07/2023 10:33 AM CDT 08/07/2023 10:33 AM CDT us Richard Aguayo M.D. LAB BLOOD NON ADD-ON Final Result [facility] [address] [place] [address] * Sodium, B (08/07/2023 10:33 AM CDT) Sodium, B 137 135 - 145 mmol/L 08/07/2023 10:34 AM CDT [facility] Blood (Blood, Arterial Line) 08/07/2023 10:33 AM CDT 08/07/2023 10:33 AM CDT us Richard Aguayo M.D. LAB BLOOD NON ADD-ON Final Result Performing Organization Address [facility]/ZIP Co de Phone Number [facility] [address] [place], [place] [phone] [place] [address] [address] [place] [address] * (ABNORMAL) Calcium, Ionized (08/07/2023 10:33 AM CDT) Calcium, Ionized, B 3.87(L) 4.65 - 5.30 mg/dL 08/07/2023 10:35 AM CDT [facility] Blood (Blood, Arterial Line) 08/07/2023 10:33 AM CDT 08/07/2023 10:33 AM CDT us Richard Aguayo M.D. LAB BLOOD NON ADD-ON Final Result Performing Organization Address City/[facility]/ZIP Co de Phone Number [facility] [address] [place] [address] * (ABNORMAL) Blood Gas with Coox, Arterial [...] M.D. LAB BLOOD NON ADD-ON Final Result [facility] [address] [place] [address], [facility] [address] [place] [address] * (ABNORMAL) ACT (Activated Clotting Time), POCT (08/07/2023 10:27 AM CDT) Activated Clotting Time 602(H) 82 - 152 sec 08/07/2023 10:35 AM CDT PCLX 08/07/2023 10:2 7 AM CDT 08/07/2023 10:35 AM CDT us Unknown Provider LAB POCT ORDERABLES - DEVICE Fi nal Result Performing Organization Address City/[facility]/ZIP Co de Phone Number POC [facility] [address] [place] [address], [facility] PCLX [facility] POC [address] [place] [address] * (ABNORMAL) Hemoglobin (HGB), POCT (08/07/2023 10:10 AM CDT) Hemoglobin, POCT, B 9.5(L) 11.6 - 15.0 g/dL 08/07/2023 10:17 AM CDT PCSM Blood 08/07/2023 10:1 0 AM CDT 08/07/2023 10:17 AM CDT us Unknown Provider LAB POCT ORDERABLES - DEVICE Fi nal Result Performing Organization Address City/[facility] Co de Phone Number POC RST [facility] [address] [place], [place] [address] PCSM [facility] POC [address] [place] [address] * (VIJI) - INTRAOPERATIVE WITH COLOR AND LIMITED DOPPLER (PROBE NOT PLACED) (08/07/2023 10:09 AM CDT) Ejection Fraction CV EIMS Sinus of Valsalva 32 CV EIMS Sinotubular Junction 22 CV EIMS Mid-Ascending Aorta 37 CV EIMS Anatomical Region Laterality Modality Echocardiography 08/07/2023 6:53 AM CDT Impressions 08/07/2023 1:03 PM CDT PROCEDURE:Transesophageal echocardiogram performed at the request of the primary director of cloud services. Transesophageal echocardiogram completed without complications. PRE-BYPASS:Pre-bypass left [...] PROCEDURE:Transesophageal echocardiogram performed at the request of thekyimary director of cloud services. Transesophageal echocardiogram completedwithout complications. PRE-BYPASS:Pre-bypass left ventricular [...] rate 87 BPM). Post-bypass left ventricular ejection [id number]%. No evidence of left circumflex coronary artery [...] 9:13 AM CDT 08/07/2023 10:20 AM CDT Unknown Provider LAB POCT ORDERABLES - DEVICE Fi nal Result Performing Organization Address [facility]/ZIP Co de Phone Number POC [facility] [address] [place], [place] [phone] [place] [address] PCLX [facility] POC [address] [place] [address] * (ABNORMAL) Lactate, B - Intra-op (08/07/2023 8:53 AM CDT) Pathologist [facility] Lactate, B <0.5(L) 0.5 - 2.2 mmol/L 08/07/2023 8:55 AM CDT [facility] Blood (Blood, Venous) 08/07/2023 8:53 AM CDT 08/07/2023 8:53 AM CDT Yaritza Culver M.D., Ph.D. LAB BLOOD NON ADD-ON Fi nal Result Performing Organization Address City/[facility]/ZIP Co de Phone Number [facility] [address] [place] [address], [facility][note 2] [address] [place] [address] * Glucose, Whole Blood (08/07/2023 8:53 AM CDT) Pathologist [facility] Glucose 93 70 - 140 mg/dL 08/07/2023 8:54 AM CDT [facility] Blood (Blood, Arterial Line) 08/07/2023 8:53 AM CDT 08/07/2023 8:53 AM CDT Yaritza Culver M.D., Ph.D. LAB BLOOD ADD-ON Final Result Performing Organization Address City/[facility] Co de Phone Number [facility] [address] [place] [address], [facility] [address] [place] [address] * (ABNORMAL) Potassium, Blood (08/07/2023 8:53 AM CDT) Potassium, B 2.9(L) 3.6 - 5.2 mmol/L 08/07/2023 8:54 AM CDT [facility] Blood (Blood, Arterial Line) 08/07/2023 8:53 AM CDT 08/07/2023 8:53 AM CDT Yaritza Culver M.D., Ph.D. LAB BLOOD NON ADD-ON Fi nal Result Performing Organization Address City/[facility] Co de Phone Number [facility] [address] [place], [place] [phone] [place] [address] 200 [place] [address] * Sodium, B (08/07/2023 8:53 AM CDT) Sodium, B 136 135 - 145 mmol/L 08/07/2023 8:54 AM CDT [facility] Blood (Blood, Arterial Line) 08/07/2023 8:53 AM CDT 08/07/2023 8:53 AM CDT Yaritza Culver M.D., Ph.D. LAB BLOOD NON ADD-ON Fi nal Result Performing Organization Address City/[facility] Co de Phone Number [facility] [address] [place] [address], [facility] [address] [place] [address] * (ABNORMAL) Calcium, Ionized (08/07/2023 8:53 AM CDT) Calcium, Ionized, B 4.38(L) 4.65 - 5.30 mg/dL 08/07/2023 8:54 AM CDT [facility] Blood (Blood, Arterial Line) 08/07/2023 8:53 AM CDT 08/07/2023 8:53 AM CDT Yaritza Culver M.D., Ph.D. LAB BLOOD NON ADD-ON Fi nal Result [facility] [address] [place] [address], [facility] [address] [place] [address] * (ABNORMAL) Blood Gas with Coox, Arterial [...] Fi nal Result Performing Organization Address City/[facility]/ZIP Co de Phone Number [facility] [address] [place] [address], [facility] ST[facility][note 2] [address] [place] [address] * ACT (Activated Clotting Time), POCT (08/07/2023 8:50 AM CDT) Pathologist [facility] Activated Clotting Time 143 82 - 152 sec 08/07/2023 8:52 AM CDT PCLX 08/07/2023 8:50 AM CDT 08/07/2023 8:52 AM CDT us Unknown Provider LAB POCT ORDERABLES - DEVICE Fi nal Result Performing Organization Address [facility] Co de Phone Number POC [facility] [address] [place] [address], [facility] PCLX [facility] POC [address] [place] [address] documented in this encounter Visit Diagnoses Diagnosis Repair Mitral Valve Status Post- Primary Anemia Posthemorrhagic Acute (Blood Loss Anemia) Repair Mitral Valve Status Post Decline Functional Status [R53.81] Regurgitation Mitral Alcohol Mild Use Disorder (Abuse) Uncomplicated Anemia Of Chronic Disease Atrial Fibrillation Longstanding Persistent (HCC) Cardiomegaly Chronic Systolic (Congestive) Heart Failure (HCC) Anemia Posthemorrhagic Acute (Blood Loss Anemia) Hypokalemia Leukocytosis Anemia Posthemorrhagic Acute (Blood Loss Anemia) Stenosis Spinal documented in this encounter Admitting [...] Given 08/11/2023 2:22 AM CDT 1,000 mg albuterol nebulizer solution 2.5 mg 2.5 mg, nebulization, Every 4 hours PRN, wheezing, Starting on Mon08/07/23 at 1356 amiodarone tablet 200 mg (PACERONE) 200 mg, [...] Given 08/09/2023 8:45 AM CDT 150 mg carvediloL tablet 12.5 mg (COREG) 12.5 mg, oral, 2 times daily with meals, First dose (after last modification) on Shelley 08/10/23 at 0945 Given 08/11/2023 9:04 AM CDT 12.5 mg Given 08/10/2023 6:08 PM CDT 12.5 mg Given 08/10/2023 10:07 AM CDT 12.5 mg furosemide injection 20 mg (LASIX) 20 [...] mg/minute. Given 08/11/2023 9:13 AM CDT 20 mg Given 08/10/2023 6:07 PM CDT 20 mg Given 08/10/2023 9:18 AM CDT 20 mg HYDROmorphone (PF) injection 0.2 mg (DILAUDID) [...] Given 08/07/2023 5:37 PM CDT 0.2 mg lactulose solution 20 g (CHRONULAC) 20 g, oral, 3 times daily PRN, constipation, Starting on Mon08/07/23 at 1356, If no result from bisacodyl suppository. Hold for loose stool. lisinopriL tablet 5 mg (PRINIVIL,ZESTRIL) 5 mg, oral, Daily, First dose (after last modification) on Mon08/11/23 at 0900 Given 08/11/2023 9:05 AM CDT 5 mg melatonin tablet 6 mg 6 mg, oral, Daily at bedtime, First dose (after last modification) on Mon08/09/23 at 2345 Given 08/10/2023 10:18 PM CDT 6 mg naloxone injection 0.2 mg (NARCAN) 0.2 mg, intravenous, As needed, respiratory depression, Starting on Mon08/07/23 at 1356, For RASS Score -4 or less, respiratory rate of less than 8 breaths/min. Notify provider/service and rapid response team (if available at institution). oxyCODONE IR tablet 10 mg (ROXICODONE) 10 [...] Given 08/10/2023 9:17 AM CDT 20 mEq rivaroxaban tablet 20 mg (XARELTO) 20 [...] PRN, flatulence, Starting on Mon08/07/23 at 1356 documented in this encounter Active and Recently Administered Medications Times are shown in CDT. Scheduled Medication Order 08/09/2023 08/10/2023 08/11/2023 acetaminophen tablet 1,000 mg (TYLENOL) 1,000 mg, oral, Every 6 hours, First dose on Mon08/07/23 at 1800 0621 (Given - Provider: Marija Goyal R.N.)1100 (Given - Provider: Lakesha Vance R.N.)1704 (Given - Provider: Lakesha Vance R.N.)2337 (Given - Provider: Marija Goyal R.N.) 0626 [...] C.N.P., D.N.P.)1309 (Unheld by provider - Provider: Alvaro Persaud P.A.-C.) atorvastatin tablet 20 mg (LIPITOR) 20 mg, oral, Daily at bedtime, First dose on Mon08/08/23 at 2100 2005 (Given - Provider: Marija Goyal R.N.) 221 (Given - Provider: Darcy Oropeza R.N.) buPROPion XL 24 hr tablet 150 mg (WELLBUTRIN XL) 150 mg, oral, Daily, First dose on Mon08/08/23 at 0900, Swallow whole. Do NOT crush, chew, or split tablet. 0845 (Given - Provider: Lakesha Vance RJose) 0917 (Given - Provider: Kathy WilcoxNHomero) 0905 (Given - Provider: Lakesha Vance R.N.) carvediloL tablet 12.5 mg (COREG) 12.5 mg, oral, 2 times daily with meals, First dose (after last modification) on Shelley 08/10/23 at 0945 1007 (Given - Provider: Blessing Bhagat R.N.)1808 (Given - Provider: Kathy MarroquinNHomero) 0904 (Given - Provider: Kathy MackayNHomero) carvediloL tablet 3.125 mg (COREG) (CANCELED) 3.125 [...] 0621 (New Bag - Provider: Marija Goyal RHomeroN.)1423 (New Bag - Provider: Lakesha Vance R.N.)2226 (New Bag - Provider: Marija Goyal RHomeroN.) 0626 (New Bag - Provider: Marija Goyal RHomeroN.) furosemide injection 20 mg (LASIX) (CANCELED) 20 [...] R.N.) 0918 (Given - Provider: Blessing Bhagat R.N.)1807 (Given - Provider: Darcy Oropeza R.N.) 0913 (Given - Provider: Lakesha Vance R.N.) lisinopriL tablet 2.5 mg (PRINIVIL,ZESTRIL) (CANCELED) 2.5 mg, oral, Daily, First dose on Mon08/10/23 at 0900 0916 (Given - Provider: Blessing Bhagat R.N.) lisinopriL tablet 5 mg (PRINIVIL,ZESTRIL) 5 mg, oral, Daily, First dose (after last modification) on Mon08/11/23 at 0900 0905 (Given - Provider: Lakesha Vance R.N.) melatonin tablet 6 mg 6 mg, oral, Daily at bedtime, First dose (after last modification) on Mon08/09/23 at 2345 0007 (Not Given - Provider: Marija Goyal R.N. - Reason: Patient/family refused)7468 (Given - Provider: Darcy Oropeza R.N.) mupirocin 2 % ointment 1 Application (BACTROBAN) [...] 0917 (Given - Provider: Blessing Bhagat R.N.) 0905 (Given - Provider: Lakesha Vance R.N.) polyethylene glycol powder packet 17 g (MIRALAX) 17 g, gastric tube, 2 times daily, First dose on Mon08/08/23 at 0900, Dissolve in 240 mLs (8 ounces) of water prior to giving. Avoid mixing with starch-based thickened liquids. 0845 (Given - Provider: Lakesha Vance R.N.)2007 (Not Given - Provider: Marija Goyal R.N. - Reason: Order parameters not met) 0921 (Not Given - Provider: Blessing Bhagat RJose - Reason: Patient/family refused)2215 (Not Given - Provider: Darcy Oroepza RJose - Reason: Order parameters not met) 0913 (Not Given - Provider: Lakesha Vance R.N. - Reason: Patient/family refused) potassium chloride ER tablet 20 mEq (KLORCON/K-TAB) 20 mEq, oral, 2 times daily with meals, First dose on Mon08/09/23 at 1415, Swallow whole. Do NOT crush, chew, or split tablet. 1423 (Given - Provider: Lakesha Vance R.N.) 0917 (Given - Provider: Blessing Bhagat R.N.)1807 (Given - Provider: Darcy Oropeza R.N.) 0905 (Given - Provider: Lakesha Vance R.N.) potassium chloride ER tablet 20 mEq (KLORCON/K-TAB) (COMPLETED) 20 mEq, oral, Once, On Mon08/09/23 at 1745, For 1 dose, Swallow whole. Do NOT crush, chew, or split tablet. 1730 (Given - Provider: Lakesha Vance RJose) rivaroxaban tablet 20 mg (XARELTO) 20 mg, oral, Daily with evening meal, First dose on Mon08/11/23 at 1700 sennosides-docusate sodium 8.6-50 mg per tablet 2 tablet (SENOKOT-S)(Linked Group 3) 2 tablet, oral, Daily at bedtime, First dose on Mon08/07/23 at 2100, Hold for loose stool 2005 (Given - Provider: Marija Goyal R.N.) 2218 (Not Given - Provider: Darcy Oropeza RJose - Reason: Order parameters not met) Continuous Medication Order 08/09/2023 08/10/2023 08/11/2023 amiodarone 1.8 mg/mL in dextrose 200 mL infusion (NEXTERONE/CORDARONE) () 0.5 mg/min (16.6667 mL/hr, rounded to 16.7 mL/hr), intravenous, Continuous, Starting on Mon08/08/23 at 2030, For 18 hours, 360 mg in 200 mL; For non-emergency doses, use an in-line filter. 0700 (Rate/Dose Verify - Provider: Lakesha Vance RSofia.)0912 (New Bag - Provider: Lakesha Vance R.N.)1112 (Rate/Dose Verify - Provider: Kathy MackayN.)1315 (Rate/Dose Verify - Provider: Lakesha Vance RHomeroN.)1500 (Stopped - Provider: Lakesha Vance R.N.) PRN [...] 1400 0309 (Given - Provider: Marija Goyal R.N.)1624 (Given - Provider: Lakesha Vance R.N.)2338 (Given - Provider: Marija Goyal R.N.) 0917 (See Alternative - Provider: Blessing Bhagat RHomeroNHomero)1423 (Given - Provider: Darcy Oropeza RHomeroN.) oxyCODONE IR tablet 5 mg (ROXICODONE)(Linked Group 4) 5 mg, oral, Every 4 hours PRN, moderate pain or score 4-6 of 10, Starting on Mon08/07/23 at 1400 0309 (See Alternative - Provider: Marija Goyal RSofia.)1624 (See Alternative - Provider: Lakesha Vance R.N.)2338 (See Alternative - Provider: Marija Goyal RHomeroNHomero) 0917 (Given - Provider: Blessing Bhagat R.N.)1423 [...] documented as of this encounter Care Teams Platen Press Feeder Relationship Specialty Start Date End Date Elsewhere, Pcp PCP - General Internal Medicine 05/10/22 documented as of this encounter
--- OUTSIDE RECORDS SUMMARY | 2024-05-21 14:06 | XMS_ITS | Encounter Summary ---
Author Organization [facility] Address [address] [place] [address] Care Team Providers Care Herbologist Name Role Phone Elsewhere, Pcp Primary Care Provider Unavailabl e Encounter Details Date Type Department Care Team (Late st Contact Info) Description 08/07/2023 8:23 AM CDT Anesthesia Event [facility] MAIN OR [address] [place] [phone] Yaritza Culver M.D., Ph.D. 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 08/07/23 0823 08/07/23 1355 Events Date Time Event Comment 08/07/2023 0823 An Start Machine/Equipme nt Checked Infection Precautions Followed Procedure/Site Verified NPO Status Verified Supine Standard ASA Monitors Applied 0827 An Induction 0830 An Intubation 0840 Invasive catheter placement 0855 Turnover to Proceduralist 0940 Single Lung Ventilation 0948 Proc Start 0950 An Start Data 0958 an stop data 1012 Art Line Pulse/Test 1018 ACT Adequate for CPB 1021 An CV Bypass init 1023 AN Active Cool 1025 Flow Per Surgeon 1027 Flow Per Surgeon 1029 Lab Event 1030 An Clamp On 1036 In-Line Monitor Calibrated 1039 Cooling Stop 1052 AN Active Warm 1108 HC (UF) Start 1109 Anes CS Handoff IEugenie ashlie, DESOLDERER, MECHANICAL TECHNICIAN, DNAP, attest that I have reconciled the controlled substances and that I have reviewed all the significant information with the next anesthesia provider assuming care of this patient. 1115 Notified of Plegia Time 1116 Transfuse Per Surgeon 1119 An Clamp Off 1121 Flow Per Surgeon 1122 Flow Per Surgeon 1124 Quick Note Ventilating lef t lung. 1125 HC (UF) Stop 1125 Transfuse Per Surgeon 1126 An CV Bypass Ended 1126 Warming Stop 1130 An CV Bypass init 1133 Transfuse Per Surgeon 1134 Flow Per Surgeon 1134 Flow Per Surgeon 1137 Flow Per Surgeon 1144 Begin Weaning CPB 1145 An CV Bypass Ended 1149 an stop data 1301 Proc Fin 1316 Turnover to ANE Staff 1335 Transfer to ICU/PCU Anesthes ia transport medically necessary Report received and care transferred Transfer Details: Vital signs stable during transfer and Ventilation and oxygen saturation stable during transport 1335 Monitored Transport 1339 an stop data 1355 An End I completed my handoff to the receiving staff during which we 1. Identified the patient 2. Identified the responsible provider 3. Reviewed the pertinent medical history 4. Discussed the surgical course 5. Reviewed intra-op anesthesia management and issues during anesthesia 6. Set expectations for post-procedure period 7. Allowed opportunity for questions and acknowledgement of understanding. Meds Name Total phenylephrine 100 mcg/mL injection 700 m cg phenylephrine 100 mcg/mL injection 500 m cg heparin 1,000 units/mL injection 3,000 U nits heparin 1,000 units/mL injection 25,000 Units fentanyl injection 50 mcg/mL 100 mcg ketamine 10 mg/mL injection 50 mg lidocaine 2% (mg) injection 60 mg rocuronium 10 mg/mL injection 70 mg vecuronium 10 mg injection 10 mg ePHEDrine PF 5 mg/mL syringe injection 3 0 mg calcium chloride 100 mg/mL injection 1,0 00 mg dexamethasone 4 mg/mL injection 4 mg mupirocin nasal ointment 2% 1 Applicatio n protamine 10 mg/mL injection 250 mg granisetron (KYTRIL) PF injection 1 mg/m L 1 mg sugammadex 100 mg/mL injection 200 mg acetaminophen injection 10mg/ml 1,000 mg propofol 10 mg/mL injection 220 mg ceFAZolin injection 2,000 mg (ANCEF) 4 g methadone injection 18.6 mg (DOLOPHINE) 10 mg tranexamic acid 600 mg in NaCl 0.9% IVPB 600 mg tranexamic acid 8 mg/mL in NaCl 0.9% 250 mL infusion (CYKLOKAPRON) 445.68 mg phenylephrine 80 mcg/mL in NaCl 0.9% 250 mL infusion 0.86 mg tranexamic acid pump prime 40 mg (CYKLOK APRON) 40 mg norepinephrine 16 mcg/mL in D5W 250 mL i nfusion 0.29 mg clevidipine 0.5 mg/mL infusion 0.17 mg clevidipine 0.5 mg/mL infusion (CLEVIPRE X) 0 mg BUPivacaine 0.25 % (2.5 mg/mL) injection (MARCAINE) 25 mL caffeine-sodium benzoate 250 mg (125 mg caffeine)/mL injection 250 mg haloperidol 5 mg/mL injection 1 mg plasmalyte-A free drip 1,000 mL plasmalyte-A free drip 300 mL * Agents No agents on file. * Blood Name Total RED BLOOD CELLS 300 mL AUTOLOGOUS RBC-CELL SALVAGE 202 mL PLATELETS 405 mL Lines, Drains, and Airways Type Details Placement Removal Wound 08/31/22; 1429; N; Incision; Spine; Lower, Medial 08/31/22 1429 by Nisreen Mays R.N., C.W.O.C.N. Wound 08/07/23; N; Incisio n; Neck; Right, Anterior 08/07/23 0000 by Ana Espana R.N. Wound 08/07/23; N; Punctur e; Groin; Right 08/07/23 0000 by Ana Espana R.N. Scope Sites 08/07/23; Chest; 1 (NEEDLETACK SITE); Anterior, Medial, Mid; 2 (ROBOTIC UPPER ARM SITE); Anterior, Medial, Upper, Right; 3 (CAMERA SITE); Anterior, Mid, Right; 4 (CROSS CLAMP SITE); Upper, Other (Comment), Lateral, Right (AXILLARY); 5 (PERICARDIAL STITCH SITE); Other (Comment), Lateral, Lower, Right (AXILLARY) 08/07/23 0000 by Ana Espana R.N. Indwelling Urinary Catheter Placement Date: 08/07/23; Inserted by: Carmen ESPANA RN; Type: Non-latex, Temperature probe; Size: 16 Fr.; Balloon Size: 10 mL; Urine Returned: Yes; Removal Date: 08/08/23; Removal Time: 1300; Removal Reason: Criteria for drain removal met 08/07/23 0000 by Ana Espana R.N. 08/08/23 1300 by Armani Roman R.N. Y Chest Tube 1 and 2 08/07/23; 1; Right; Pericardial; 2; Right; Mediastinal; 18 Fr; Other (Comment) (configuration changed in OR so completed and new LDA formed) 08/07/23 0000 by Ana Espana RHomeroNHomero 08/07/23 2100 by Martine Nieto RJose Peripheral IV Placement Date: 08/07/23; Placement Time: [...] wall movement; Removal Date: 08/07/23; Removal Time: 22208/07/23 0830 by Eugenie Munoz APRN, MECHANICAL TECHNICIAN, DNAP 08/07/23 2227 by Vanesa Valentin APRN, CRNA, D.N.PHomero Peripheral IV Placement Date: 08/07/23; Placement Time: 0835; Catheter Size: 16 G; Orientation: Right; Location: Hand; Removal Date: 08/08/23; Removal Time: 0653; Removal Reason: Leaking 08/07/23 0835 by Eugenie Munoz APRN, CRNA, DNAP 08/08/23 0653 by Caren Ambrosio R.N., [facility] Arterial Line Placement Date: 08/07/23; Placemnt Time: 0840 (created via procedure documentation); Size: 20 G; Orientation: Left; Location: Radial; Site Prep: Chlorhexidine (Preferred); Technique: Anatomical landmarks; Insertion Attempts: 1; Securement: Securement dressing, Securement device; Removal Date: 08/08/23; Removal Time: 1054; Removal Reason: Per order 08/07/23 0840 by Eugenie Munoz APRN, CRNA, DNAP 08/08/23 1054 by Antolin Sepulveda, R.NHomero CVC Quadruple Lumen Placement Date: 08/07/23; Placement Time: 0850; Size: 8.5 Fr; Type: Temporary (non-tunneled, non-implanted); Line Length(cm): 16; Orientation: Right; Location: Internal jugular; Inserted by: Dr Culver; Removal Date: 08/09/23; Removal Time: 1648 08/07/23 0850 by Patricia Conroy 08/09/23 1648 by Lakesha Vance, R.N. documented in this encounter Social History Tobacco Use Types Packs/Day Years Used Date Smoking Tobacco: Former Cigarettes 0 10/03/1966 - 03/05/1974 Smokeless Tobacco: Never Alcohol Use Standard Drinks/Week Comments Yes 10 (1 standard drink = 0.6 oz pu re alcohol) [facility] Utilities Answer Date Recorded In the past 12 months has [facility] [employer], gas, oil, or water [employer] threatened to shut off services in your [...] How often do you attend chur or muslim services? More than 4 times per year 08/15/2022 Do you belong to any clubs o r organizations such as worship groups, unions, fraternal or athletic groups, or [...] Answer Date Recorded PHQ-2 Score 0 08/03/2023 [facility] - Occupational [...] your living situation today? I have a [facility] place to live 08/09/2023 Education Answer Date Recorded What is the highest level of school you have completed or the highest degree you have received? Bachelor's degree (e.g., BA, AB, BS) 08/15/2022 Comments No Sex and Gender Information Value Date Recorded Sex Assigned at Female 05/11/2022 7:48 AM GIFT SHOP MANAGER Legal Sex Female 9:30 PM GIFT SHOP MANAGER Gender Identity Female 05/11/2022 7:48 AM GIFT SHOP MANAGER Sexual Orientation Straight 05/11/2022 7: 48 AM GIFT SHOP MANAGER documented as of this encounter OR Notes * Anesthesia Postprocedure Evaluation - Eugenie Munoz APRN, CRNA, DNAP - 08/07/2023 1:55 PM CDT Patient: Gladys Zamarripa Procedure Summary Date: 08/07/23 Room / Location: [address] 01 [facility] in [place], [place] Anesthesia Start: 08 Anesthesia Stop: 1355 Procedure: ROBOTIC-ASSISTED MITRAL VALVE, VALVULOPLASTY, Nimo clamp, 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 Responsible Provider: Yaritza Culver M.D., Ph.D. Anesthesia Type: general ASA Status: 3 Anesthesia Type: general Last vitals Vitals Value Taken Time BP 121/83 08/07/23 1400 Temp Pulse 74 08/07/23 1405 Resp 20 08/07/23 1405 SpO2 93 % 08/07/23 1405 Vitals shown include unfiled device data. Please reference Vitals flowsheet for most recent [...] status: euvolemic * Anesthesia Procedure Notes - Yaritza Culver M.D., Ph.D. - 08/07/2023 1:23 PM CDTAssociated Order(s): Regional Block Regional Block Date/Time: 08/07/2023 1:13 PM Performed by: Yaritza Culver M.D., Ph.D. Authorized by: Yaritza Culver M.D., Ph.D. Location: OR PROCEDURE DETAILS: Block Indication: post-op pain block Block indication comment: Post-Op pain block at request of surgeon Block Type - Truncal: PECS II block Positioning: supine Laterality: right Block technique: ultrasound guided Ultrasound image guidance used to localize target, identify at risk structures, and dynamically used to direct therapy to the target. Procedure was performed under sterile conditions.Image(s) acquired and saved Injection technique: single injection Needle type: echogenic Gauge: 21G Length: 10 Test dose: yes- negative test dose Incremental injection of local anesthetic with aspiration every:5cc Pain with needle advancement or injection of local anesthetic: no Injected Medications: Injection(s), anesthetic agent(s) and/or steroid; See MAR UNIVERSAL PROTOCOL All relevant documentation and testing [...] and confirmed in a procedural pause. PRE-PROCEDURE DETAILS: Appropriate hand hygiene, gown, cap, mask, protective eyewear, sterile gloves, skin preparation, sterile drape, and strict aseptic technique were utilized as applicable for the procedure.: yes Skin prep: chlorhexidine / alcohol SEDATION / ANESTHESIA Anesthesia method: local infiltration POST-PROCEDURE DETAILS: Procedure completed successfully: successful procedure Notable Events: none ATTESTATION STATEMENT An accredited resident or fellow participated in the case, and the managing consultant clinical professor was present for the entire case. * Anesthesia Procedure Notes - Yaritza Culver M.D., Ph.D. - 08/07/2023 1:22 PM CDTAssociated Order(s): Regional Block Regional Block Date/Time: 08/07/2023 1:10 PM Performed by: Yaritza Culver M.D., Ph.D. Authorized by: Yaritza Culver M.D., Ph.D. Location: OR PROCEDURE DETAILS: Block Indication: post-op pain block Block indication comment: Post-Op pain block at request of surgeon Block Type - Truncal: PECS I block Positioning: supine Laterality: right Block technique: ultrasound guided Ultrasound image guidance used to localize target, identify at risk structures, and dynamically used to direct therapy to the target. Procedure was performed under sterile conditions.Image(s) acquired and saved Injection technique: single injection Needle type: echogenic Gauge: 21G Length: 10 Test dose: yes- negative test dose Incremental injection of local anesthetic with aspiration every:5cc Pain with needle advancement or injection of local anesthetic: no Injected Medications: Injection(s), anesthetic agent(s) and/or steroid; See MAR UNIVERSAL PROTOCOL All relevant documentation and testing [...] and confirmed in a procedural pause. PRE-PROCEDURE DETAILS: Appropriate hand hygiene, gown, cap, mask, protective eyewear, sterile gloves, skin preparation, sterile drape, and strict aseptic technique were utilized as applicable for the procedure.: yes Skin prep: chlorhexidine / alcohol SEDATION / ANESTHESIA Anesthesia method: local infiltration and anesthesia POST-PROCEDURE DETAILS: Procedure completed successfully: successful procedure Notable Events: none ATTESTATION STATEMENT An accredited resident or fellow participated in the case, and the managing consultant clinical professor was present for the entire case. * Anesthesia Procedure Notes - Eugenie Munoz APRN, CRNA, DNAP - 08/07/2023 10:48 AM CDTAssociated Order(s): Invasive Catheter Invasive Catheter Date/Time: 08/07/2023 8:40 AM Performed by: Eugenie Munoz APRN, CRNA, DNAP Authorized by: Yaritza Culver M.D., Ph.D. Location: OR PROCEDURE DETAILS: Line type: arterial Laterality: left Location: radial Location details: new site Age group: adult Catheter diameter: 20 Ga Technique: palpation Monitored: yes Number of attempts: 1 UNIVERSAL PROTOCOL All relevant documentation and testing [...] and confirmed in a procedural pause. PRE-PROCEDURE DETAILS: Appropriate hand hygiene, gown, cap, mask, protective eyewear, sterile gloves, skin preparation, sterile drape, and strict aseptic technique were utilized as applicable for the procedure.: yes Skin preparation: chlorhexidine SEDATION / ANESTHESIA Anesthesia method: anesthesia POST-PROCEDURE DETAILS: Procedure completed successfully: yes Line secured: secured with sutureless device Chlorhexidine disc around insertion site and under catheter with slight turn: yes Notable Events - arterial: none * Anesthesia Procedure Notes - Eugenie Munoz APRN, CRNA, DNAP - 08/07/2023 8:51 AM CDTAssociated Order(s): Airway Airway Date/Time: 08/07/2023 8:30 AM Performed by: Eugenie Munoz APRN, CRNA, DNAP Authorized by: Yaritza Culver M.D., Ph.D. Patient location during procedure: OR / Procedure Area PROCEDURE DETAILS: Mask difficulty assessment: easy mask Final airway type: direct laryngoscopy, intubation Laryngeal Manipulation: no Final airway difficulty of direct laryngoscopy (DL): 0-easy Final best view of glottic structures - Cormack/Lehane Score: grade 1 ETT location: oral Blade type: Espan[place] 2 Tube size: 35 ETT distance at teeth/gum: 28 Oral tube type: double lumen left Cuffed: yes Number of attempt to successful placement: 1 Airway confirmation: bilateral breath sounds, positive ETCO2, bilateral chest rise and fiber optic confirmation of tube placement/position Other previous techniques attempted: none PRE PROCEDURE DETAILS: Pre evaluation for airway management: procedure Urgency: elective Preop assessment of probable difficulty: no difficulty anticipated Preoxygenation: bag valve mask SEDATION / ANESTHESIA Anesthesia method: anesthesia POST PROCEDURE DETAILS: Procedure outcome: successful Notable Events: no complications * Anesthesia Preprocedure Evaluation - Yaritza Culver M.D., Ph.D. 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 (Chest) LIGATION LEFT ATRIAL APPENDAGE. Diagnosis: Regurgitation Mitral [I34.0] Pre-op diagnosis: Regurgitation Mitral [I34.0]. Location: [place] [address] / [facility] in [place], [place] Providers: Richard Aguayo M.D. Pertinent components [...] (+) Atrial Fibrillation Longstanding Persistent (HCC) (+) Hypertension Essential Primary PSYCH (+) Depression Major Recurrent (HCC) HEME (+) Anemia Of Chronic Disease (S/p iron supplementation ) Circulatory (+) Regurgitation Mitral Endocrine/Metabolic (+) Gout Other (+) Alcohol Mild Use Disorder (Abuse) Uncomplicated (+) Spinal Stenosis Lumbar Region Without Neurogenic Claudication OBJECTIVE PHYSICAL EXAMINATION Airway (HEENT) Mallampati: II [...] with patient /legal guardian or through an readers' advisory service librarian. Risks/Benefits/Alternatives of Blood transfusion discussed with patient [...] (Latest Contact Info) Description 05/29/2024 12:15 PM GIFT SHOP MANAGER Clinical Communication Virtual Review in [place], [place] [address] [place] [phone] 05/31/2024 11:00 AM GIFT SHOP MANAGER Appointment Department of Laboratory Medicine and Pathology, [facility], in [place], [place] [address] [place] [phone] Patriica Parker APRN, C.N.P., D.N.P. [address] [place] [phone] 05/31/2024 2:00 PM GIFT SHOP MANAGER Comprehensive Visit Preoperative Evaluation Center in [place], [place] [address] [place] [phone] Arianna Jeffries M.D. [address] [place] [phone] 05/31/2024 2:45 PM GIFT SHOP MANAGER Comprehensive Visit Preoperative Evaluation Center in [place], [place] [address] [place] [phone] Chris Moreno, JOHNSON, C.N.P., M.S. [address] [place] [phone] 06/03/2024 8:15 AM GIFT SHOP MANAGER Hospital Encounter Post Anesthesia Care Unit in [place] [id number] [place] [phone] Tahir Moore M.D. [address] [place] [phone] 06/03/2024 8:15 AM GIFT SHOP MANAGER - 06/03/2024 2:12 PM GIFT SHOP MANAGER Surgery [facility] MAIN OR [address] [place] [phone] Tahir Moore M.D. [address] [place] [phone] C1-2 fusion 07/02/2024 11:00 AM GIFT SHOP MANAGER Procedure visit Division of Pain Medicine in [place], [place] [address] [place] [phone] Adam Barlow M.D. [address] [place] [phone] Scheduled Procedures Name Priority Associated Diagnoses Date/Ti me 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 06/03/2024 8:15 AM GIFT SHOP MANAGER documented as of this encounter Procedures Procedure Name Priority Date/Time Associated Diagnosis Comments MC ANE NERVE BLOCK WITH ULTRASOUND Routine 08/07/2023 1:13 PM CDT GA INJ ANES OTHER PERIPHERAL NRV Routine 08/07/2023 1:13 PM CDT GA US GUIDE PLC NDL Routine 08/07/2023 1 :13 PM CDT MC ANE NERVE BLOCK WITH ULTRASOUND Routine 08/07/2023 1:10 PM CDT GA INJ ANES OTHER PERIPHERAL NRV Routine 08/07/2023 1:10 PM CDT GA US GUIDE PLC NDL Routine 08/07/2023 1 :10 PM CDT LDA ANE ARTERIAL LINE INSERTION Routine 08/07/2023 8:40 AM CDT GA ARTL CATH/CNULA MONITOR PERC Routine 08/07/2023 8:40 AM CDT LDA ANE ENDOTRACHEAL AIRWAY Routine 08/07/2023 8:30 AM CDT documented in this encounter Results * GA US GUIDE PLC NDL, GA INJ ANES OTHER PERIPHERAL NRV, MC ANE NERVE BLOCK WITH ULTRASOUND (08/07/2023 1:13 PM CDT) Yaritza Summers M.D., Ph.D. - 08/07/2023 1:13 PM CDT Yaritza Culver M.D., Ph.D. 08/07/2023 1:24 PM Regional Block Date/Time: 08/07/2023 1:13 PM Performed by: Yaritza Culver M.D., Ph.D. Authorized by: Yaritza Culver M.D., Ph.D. Location: OR PROCEDURE DETAILS: Block Indication: post-op pain block Block indication comment: Post-Op pain block at request of surgeon Block Type - Truncal: PECS II block Positioning: supine Laterality: right Block technique: ultrasound guided Ultrasound image guidance used to localize target, identify at risk structures, and dynamically used to direct therapy to the target. Procedure was performed under sterile conditions.Image(s) acquired and saved Injection technique: single injection Needle type: echogenic Gauge: 21G Length: 10 Test dose: yes- negative test dose Incremental injection of local anesthetic with aspiration every:5cc Pain with needle advancement or injection of local anesthetic: no Injected Medications: Injection(s), anesthetic agent(s) and/or steroid; See MAR UNIVERSAL PROTOCOL All relevant documentation and testing [...] and confirmed in a procedural pause. PRE-PROCEDURE DETAILS: Appropriate hand hygiene, gown, cap, mask, protective eyewear, sterile gloves, skin preparation, sterile drape, and strict aseptic technique were utilized as applicable for the procedure.: yes Skin prep: chlorhexidine / alcohol SEDATION / ANESTHESIA Anesthesia method: local infiltration POST-PROCEDURE DETAILS: Procedure completed successfully: successful procedure Notable Events: none ATTESTATION STATEMENT An accredited resident or fellow participated in the case, and the managing consultant clinical professor was present for the entire case. us Yaritza Culver M.D., Ph.D. PROCEDURE/MINOR SURGICA L ORDERABLES Final Result * GA US GUIDE PLC NDL, GA INJ ANES OTHER PERIPHERAL NRV, MC ANE NERVE BLOCK WITH ULTRASOUND (08/07/2023 1:10 PM CDT) Narrative Yaritza Culver M.D., Ph.D. - 08/07/2023 1:10 PM CDT Yaritza Culver M.D., Ph.D. 08/07/2023 1:23 PM Regional Block Date/Time: 08/07/2023 1:10 PM Performed by: Yaritza Culver M.D., Ph.D. Authorized by: Yaritza Culver M.D., Ph.D. Location: OR PROCEDURE DETAILS: Block Indication: post-op pain block Block indication comment: Post-Op pain block at request of surgeon Block Type - Truncal: PECS I block Positioning: supine Laterality: right Block technique: ultrasound guided Ultrasound image guidance used to localize target, identify at risk structures, and dynamically used to direct therapy to the target. Procedure was performed under sterile conditions.Image(s) acquired and saved Injection technique: single injection Needle type: echogenic Gauge: 21G Length: 10 Test dose: yes- negative test dose Incremental injection of local anesthetic with aspiration every:5cc Pain with needle advancement or injection of local anesthetic: no Injected Medications: Injection(s), anesthetic agent(s) and/or steroid; See MAR UNIVERSAL PROTOCOL All relevant documentation and testing [...] and confirmed in a procedural pause. PRE-PROCEDURE DETAILS: Appropriate hand hygiene, gown, cap, mask, protective eyewear, sterile gloves, skin preparation, sterile drape, and strict aseptic technique were utilized as applicable for the procedure.: yes Skin prep: chlorhexidine / alcohol SEDATION / ANESTHESIA Anesthesia method: local infiltration and anesthesia POST-PROCEDURE DETAILS: Procedure completed successfully: successful procedure Notable Events: none ATTESTATION STATEMENT An accredited resident or fellow participated in the case, and the managing consultant clinical professor was present for the entire case. Yaritza Culver M.D., Ph.D. PROCEDURE/MINOR SURGICA L ORDERABLES Final Result * GA ARTL CATH/CNULA MONITOR PERC, LDA ANE ARTERIAL LINE INSERTION (08/07/2023 8:40 AM CDT) Narrative Eugenie Munoz APRN, CRNA DNAP - 08/07/2023 8:40 AM CDT Eugenie Munoz APRN, CRNA DNAP 08/07/2023 10:49 AM Invasive Catheter Date/Time: 08/07/2023 8:40 AM Performed by: Eugenie Munoz APRN, CRNA DNALea Authorized by: Yaritza Culver M.D., Ph.D. Location: OR PROCEDURE DETAILS: Line type: arterial Laterality: left Location: radial Location details: new site Age group: adult Catheter diameter: 20 Ga Technique: palpation Monitored: yes Number of attempts: 1 UNIVERSAL PROTOCOL All relevant documentation and testing [...] and confirmed in a procedural pause. PRE-PROCEDURE DETAILS: Appropriate hand hygiene, gown, cap, mask, protective eyewear, sterile gloves, skin preparation, sterile drape, and strict aseptic technique were utilized as applicable for the procedure.: yes Skin preparation: chlorhexidine SEDATION / ANESTHESIA Anesthesia method: anesthesia POST-PROCEDURE DETAILS: Procedure completed successfully: yes Line secured: secured with sutureless device Chlorhexidine disc around insertion site and under catheter with slight turn: yes Notable Events - arterial: none Yaritza Culver M.D., Ph.D. PROCEDURE/MINOR SURGICA L ORDERABLES Final Result * LDA ANE ENDOTRACHEAL AIRWAY (08/07/2023 8:30 AM CDT) Narrative Eugenie Munoz APRN, CRNA DNAP - 08/07/2023 8:30 AM CDT Eugenie Munoz APRN, CRNA DNAP 08/07/2023 8:52 AM Airway Date/Time: 08/07/2023 8:30 AM Performed by: Eugenie Munoz APRN, CRNA DNALea Authorized by: Yaritza Culver M.D., Ph.D. Patient location during procedure: OR / Procedure Area PROCEDURE DETAILS: Mask difficulty assessment: easy mask Final airway type: direct laryngoscopy, intubation Laryngeal Manipulation: no Final airway difficulty of direct laryngoscopy (DL): 0-easy Final best view of glottic structures - Cormack/Lehane Score: grade 1 ETT location: oral Blade type: [place] 2 Tube size: 35 ETT distance at teeth/gum: 28 Oral tube type: double lumen left Cuffed: yes Number of attempt to successful placement: 1 Airway confirmation: bilateral breath sounds, positive ETCO2, bilateral chest rise and fiber optic confirmation of tube placement/position Other previous techniques attempted: none PRE PROCEDURE DETAILS: Pre evaluation for airway management: procedure Urgency: elective Preop assessment of probable difficulty: no difficulty anticipated Preoxygenation: bag valve mask SEDATION / ANESTHESIA Anesthesia method: anesthesia POST PROCEDURE DETAILS: Procedure outcome: successful Notable Events: no complications Yaritza Culver M.D., Ph.D. ANESTHESIA ORDERABLES F inal Result documented in this encounter Visit Diagnoses Not on filedocumented in this encounter Administered Medications Inactive Administered Medications - up to 3 most recent administrations Medication Order MAR Action Action Date Dose Rate Site acetaminophen injection intravenous, Administer over 15 Minutes, As needed, Starting on Mon08/07/23 at 1230, Anesthesia Intra-op Given 08/07/2023 12:30 PM CDT 1,000 mg BUPivacaine 0.25 % (2.5 mg/mL) injection (MARCAINE) As needed, Starting on Mon08/07/23 at 1218, Intra-Op Given 08/07/2023 1:13 PM CDT 25 mL Given 08/07/2023 12:18 PM CDT 30 mL caffeine-sodium benzoate injection intravenous, As needed, Starting on Mon08/07/23 at 1305, Anesthesia Intra-op Given 08/07/2023 1:05 PM CDT 250 mg calcium chloride injection intravenous, As needed, Starting on Mon08/07/23 at 1125, Anesthesia Intra-op Given 08/07/2023 11:25 AM CDT 1,000 mg ceFAZolin injection 2,000 mg (ANCEF) 2,000 mg (rounded from 1,502.5 mg = 25 mg/kg 60.1 kg), intravenous, Once, On Mon08/07/23 at 0715, For 1 dose, Intra-Op, Preoperatively within 1 hour prior to surgical incision If needed, reconstitute vial per package insert instructions. See IVAG for administration guidelines., Drug Monitoring Program: Pharmacist to adjust medication dosing based on indication and drug clearance factors., Indications: Prophylaxis, surgicalIndications:Prophylaxis, surgical Given 08/07/2023 12:41 PM CDT 2 g Given 08/07/2023 9:41 AM CDT 2 g clevidipine 0.5 mg/mL infusion (CLEVIPREX) central venous line infusion, Continuous Infusion: Per Instructions PRN, Starting on Mon08/07/23 at 1133, Anesthesia Intra-op New Bag 08/07/2023 11:33 AM CDT 2 mg/hr 4 mL/hr dexAMETHasone injection (DECADRON) intravenous, As needed, Starting on Mon08/07/23 at 0835, Anesthesia Intra-op Given 08/07/2023 8:35 AM CDT 4 mg electrolyte-A solution (PLASMA-LYTE A) intravenous, Continuous Infusion: Per Instructions PRN, Starting on Mon08/07/23 at 0823, Anesthesia Intra-op New Bag 08/07/2023 8:23 AM CDT electrolyte-A solution (PLASMA-LYTE A) intravenous, Continuous Infusion: Per Instructions PRN, Starting on Mon08/07/23 at 0835, Anesthesia Intra-op New Bag 08/07/2023 8:35 AM CDT ePHEDrine (PF) injection intravenous, As needed, Starting on Mon08/07/23 at 1126, Anesthesia Intra-op Given 08/07/2023 12:33 PM CDT 5 mg Given 08/07/2023 12:21 PM CDT 10 mg Given 08/07/2023 11:26 AM CDT 15 mg fentaNYL injection (SUBLIMAZE) intravenous, As needed, Starting on Mon08/07/23 at 0827, Anesthesia Intra-op Given 08/07/2023 8:27 AM CDT 100 mcg granisetron (PF) injection (KYTRIL) intravenous, As needed, Starting on Mon08/07/23 at 1318, Anesthesia Intra-op Given 08/07/2023 1:18 PM CDT 1 mg haloperidol lactate injection (HALDOL) intravenous, As needed, Starting on Mon08/07/23 at 1320, Anesthesia Intra-op Given 08/07/2023 1:20 PM CDT 1 mg heparin (porcine) 1,000 unit/mL injection intravenous, As needed, Starting on Mon08/07/23 at 1138, Anesthesia Intra-op Given 08/07/2023 11:38 AM CDT 3,000 Units heparin (porcine) 1,000 unit/mL injection intravenous, As needed, Starting on Mon08/07/23 at 0900, Anesthesia Intra-op Given 08/07/2023 9:00 AM CDT 25,000 Units ketamine injection (KETALAR) intravenous, As needed, Starting on Mon08/07/23 at 0950, Anesthesia Intra-op Given 08/07/2023 9:50 AM CDT 50 mg lidocaine (PF) (cardiac) injection intravenous, As needed, Starting on Mon08/07/23 at 0827, Anesthesia Intra-op Given 08/07/2023 8:27 AM CDT 60 mg methadone injection 18.6 mg (DOLOPHINE) 18.6 mg (rounded from 18.57 mg = 0.3 mg/kg 61.9 kg), intravenous, Once, On Mon08/07/23 at 0830, For 1 dose, Intra-Op, In OR, Restriction Criteria (Pharmacy will review and approve if criteria met): Prescribed by Pain Service Given 08/07/2023 9:53 AM CDT 5 mg Given 08/07/2023 9:48 AM CDT 5 mg mupirocin 2 % nasal ointment (BACTROBAN) nasal, As needed, Starting on Mon08/07/23 at 0835, Anesthesia Intra-op Given 08/07/2023 8:35 AM CDT 1 Application norepinephrine 16 mcg/mL in D5W 250 mL infusion 0-0.3 mcg/kg/min 61.9 kg (0-69.6375 mL/hr, rounded to 0-69.64 mL/hr), intravenous, Continuous, Starting on Mon08/07/23 at 0830, Intra-Op, In OR Protect from light and avoid extravasation, Patient Type: Cardiovascular Surgery, Initiate at: Other, Rate: Per Provider, Titrate at: Other, Titrate: Per Provider, Goal: Other, Goal: Per Provider Restarted 08/07/2023 11:38 AM CDT 0.02 mcg/kg/min 4.643 mL/hr Rate/Dose Change 08/07/2023 11:27 AM CDT 0.03 mcg/kg/min 6 .964 mL/hr Rate/Dose Change 08/07/2023 11:17 AM CDT 0.02 mcg/kg/min 4 .643 mL/hr phenylephrine 80 mcg/mL in NaCl 0.9% 250 mL infusion 0-1 mcg/kg/min 61.9 kg (0-46.425 mL/hr, rounded to 0-46.43 mL/hr), intravenous, Continuous, Starting on Mon08/07/23 at 0830, Intra-Op, In OR 20 mg in 250 mL, Patient Type: Standard, initiate at: Other, Rate: Per Provider, Titrate at: Other, Titrate: Per Provider, Goal: Other, Goal: Per Provider Rate/Dose Change 08/07/2023 11:14 AM CDT 0.2 mcg/kg/min 9.285 mL/hr Rate/Dose Change 08/07/2023 11:12 AM CDT 0.4 mcg/kg/min 18 .57 mL/hr Rate/Dose Change 08/07/2023 11:04 AM CDT 0.6 mcg/kg/min 27 .855 mL/hr phenylephrine injection intravenous, As needed, Starting on Mon08/07/23 at 1026, Anesthesia Intra-op Given 08/07/2023 11:38 AM CDT 200 mc g Given 08/07/2023 11:20 AM CDT 100 mcg Given 08/07/2023 10:57 AM CDT 100 mcg phenylephrine injection intravenous, As needed, Starting on Mon08/07/23 at 1127, Anesthesia Intra-op Given 08/07/2023 11:43 AM CDT 200 mc g Given 08/07/2023 11:27 AM CDT 300 mcg propofoL injection (DIPRIVAN) intravenous, As needed, Starting on Mon08/07/23 at 0828, Anesthesia Intra-op Given 08/07/2023 11:32 AM CDT 80 mg Given 08/07/2023 8:28 AM CDT 140 mg protamine injection intravenous, As needed, Starting on Mon08/07/23 at 1146, Anesthesia Intra-op Given 08/07/2023 11:46 AM CDT 250 mg rocuronium injection (ZEMURON) intravenous, As needed, Starting on Mon08/07/23 at 0829, Anesthesia Intra-op Given 08/07/2023 8:29 AM CDT 70 mg sugammadex injection (BRIDION) intravenous, As needed, Starting on Mon08/07/23 at 1326, Anesthesia Intra-op Given 08/07/2023 1:26 PM CDT 200 mg tranexamic acid 600 mg in NaCl 0.9% IVPB 600 mg (rounded from 619 mg = 10 mg/kg 61.9 kg), intravenous, at 168 mL/hr, Administer over 20 Minutes, Once, On Mon08/07/23 at 0830, For 1 dose, Intra-Op New Bag 08/07/2023 9:30 AM CDT 600 mg tranexamic acid 8 mg/mL in NaCl 0.9% 250 mL infusion (CYKLOKAPRON) 2 mg/kg/hr 61.9 kg (15.475 mL/hr, rounded to 15.5 mL/hr), intravenous, Continuous, Starting on Mon08/07/23 at 0830, Intra-Op Rate/Dose Verify 08/07/2023 5:00 PM CDT 2 mg/kg/hr 15.475 mL/hr Rate/Dose Verify 08/07/2023 4:00 PM CDT 2 mg/kg/hr 15.475 mL/hr Rate/Dose Verify 08/07/2023 3:00 PM CDT 2 mg/kg/hr 15.475 mL/hr tranexamic acid pump prime 40 mg (CYKLOKAPRON) 40 mg, miscellaneous, Once, On Mon08/07/23 at 0830, For 1 dose, Intra-Op, Pump Prime (Syringe); pharmacy sent to OR Given 08/07/2023 10:21 AM CDT 40 mg Transfuse autologous RBC (Cell Salvage) : Routine New Bag 08/07/2023 12:42 PM CDT Transfuse Platelets : Routine New Bag 08/07/2023 1:14 PM CDT Transfuse Platelets : Routine New Bag 08/07/2023 1:37 PM CDT Transfuse Red Blood Cells : Routine New Bag 08/07/2023 10:42 AM CDT vecuronium injection (NORCURON) intravenous, As needed, Starting on Mon08/07/23 at 0947, Anesthesia Intra-op Given 08/07/2023 9:47 AM CDT 10 mg documented in this encounter Additional Health Concerns Assessment Noted Time PHQ-9 Depression Total Score: 2 08/03/19 9:15 AM CDT documented as of this encounter Care Teams Herbologist Relationship Specialty Start Date End Date Elsewhere, Pcp PCP - General Internal Medicine 05/10/22 documented as of this encounter
--- OUTSIDE RECORDS SUMMARY | 2024-05-21 14:07 | XMS_ITS | Encounter Summary ---
Author Organization [facility] Address [address] [place] [address] Care Team Providers Care Cisco Consultant Name Role Phone Elsewhere, Pcp Primary Care Provider Unavailabl e Encounter Details Date Type Department Care Team (Latest Contact Info) Description 08/04/2023 5:00 PM CDT Office Visit Department of Cardiovascular Surgery in [place], [place] [address] [place] [phone] Lindsay Alex, ENFORCEMENT SAFETY OFFICER, C.N.P., D.N.P. [address] [place] [phone] Adam Aceves, HEYDIS, P.A.-C. [address] [place] [phone] Preoperative Examination Cardiovascular (Primary Dx) Social History Tobacco Use Types [...] How often do you attend chur or jewish services? More than 4 times per year [...] Answer Date Recorded PHQ-2 Score 0 08/03/2023 [facility] - Occupational [...] place to sleep or slept in a fpc (including now)? No 08/15/2022 Depression Answer Date [...] Sex Assigned at Female 05/11/2022 7:48 AM DIRECTOR OF SOCIAL SERVICES Legal Sex Female 9:30 PM DIRECTOR OF SOCIAL SERVICES Gender Identity Female 05/11/2022 7:48 AM DIRECTOR OF SOCIAL SERVICES Sexual Orientation Straight 05/11/2022 7: 48 AM DIRECTOR OF SOCIAL SERVICES documented as of this encounter Progress Notes * Adam Aceves MPAS, P.A.-C. - 08/04/2023 5:00 PM CDT Gladys Zamarripa : 1950 VISIT DATE: 08/04/23 I met with patient to review informed consent following consultation with Dr. Aguayo. Surgical consent has been signed; the patient is able to proceed with surgery on 08/07/2023. I updated the case listing to include robotic-assisted mitral valve repair and possible left atrial appendage ligation. Of note, patient states she reviewed her medications following our preoperative appointment and confirmed she does take coreg 2.5 mg BID. I instructed patient she should take her morning dose on the day of surgery. I also informed patient she should inform her anesthesiologist regarding this update. CONSENT Informed consent was reviewed in detail and signed by the patient electronically. The risks, benefits, and alternatives to the planned procedure have been discussed in detail. All questions pertaining to the procedure and these risks were answered and the patient agreed to proceed. I personally spent 15 minutes in care of the patient and review of the record today. Time includes both jip-loek-wv-face and ftie-yx-ajqt patient care. JACQUE Cam P.A.-C. documented in this encounter Plan of Treatment Upcoming Encounters Date Type Department Care Team (Latest Contact Info) Description 05/29/2024 12:15 PM DIRECTOR OF SOCIAL SERVICES Clinical Communication Virtual Review in [place], [place] [address] [place] [phone] 05/31/2024 11:00 AM DIRECTOR OF SOCIAL SERVICES Appointment Department of Laboratory Medicine and Pathology, [facility], in [place], [place] [address] [place] [phone] Patricia Parker APRN, C.N.P., D.N.P. [address] [place] [phone] 05/31/2024 2:00 PM DIRECTOR OF SOCIAL SERVICES Comprehensive Visit Preoperative Evaluation Center in [place], [place] [address] [place] [phone] Arianna Jeffries M.D. [address] [place] [phone] 05/31/2024 2:45 PM DIRECTOR OF SOCIAL SERVICES Comprehensive Visit Preoperative Evaluation Center in [place], [place] [address] [place] [phone] Chris Moreno, JOHNSON, Socorro.N.P., M.S. [address] [place] [phone] 06/03/2024 8:15 AM DIRECTOR OF SOCIAL SERVICES Hospital Encounter Post Anesthesia Care Unit in [place] [address] [place] [phone] Tahir Moore M.D. [address] [place] [phone] 06/03/2024 8:15 AM DIRECTOR OF SOCIAL SERVICES - 06/03/2024 2:12 PM DIRECTOR OF SOCIAL SERVICES Surgery [facility] OR [facility] [place] [phone] Tahir Moore M.D. [address] [place] [phone] C1-2 fusion 07/02/2024 11:00 AM DIRECTOR OF SOCIAL SERVICES Procedure visit Division of Pain Medicine in [place], [place] [address] [place] [phone] Adam Barlow M.D. [address] [place] [phone] Scheduled Procedures Name Priority Associated Diagnoses Date/Ti me 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 06/03/2024 8:15 AM DIRECTOR OF SOCIAL SERVICES documented as of this encounter Visit Diagnoses Diagnosis Preoperative Examination Cardiovascular- Primary Stenosis Spinal documented in this encounter Additional Health Concerns Assessment Noted Time PHQ-9 Depression Total Score: 2 08/03/19 24 9:15 AM CDT documented as of this encounter Care Teams Cisco Consultant Relationship Specialty Start Date End Date Elsewhere, Pcp PCP - General Internal Medicine 05/10/22 documented as of this encounter
--- OUTSIDE RECORDS SUMMARY | 2024-05-21 14:07 | XMS_ITS | Encounter Summary ---
Author Organization [facility] Address [address] [place] [address] Care Team Providers Care Fuel Buyer Name Role Phone Elsewhere, Pcp Primary Care Provider Unavailabl e Encounter Details Date Type Department Care Team (Late st Contact Info) Description 08/07/2023 7:45 AM CDT - 08/07/2023 1:45 PM CDT Surgery RST ROMB MAIN OR [address] [place] [phone] Richard Aguayo M.D. 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 More than 4 times per year [...] Answer Date Recorded PHQ-2 Score 0 08/03/2023 [facility] - [...] place to sleep or slept in a long term (including now)? No 08/15/2022 Depression Answer Date [...] Sex Assigned at Female 05/11/2022 7:48 AM SLAT PICKLER Legal Sex Female 9:30 PM SLAT PICKLER Gender Identity Female 05/11/2022 7:48 AM SLAT PICKLER Sexual Orientation Straight 05/11/2022 7: 48 AM SLAT PICKLER documented as of this encounter Last Filed Vital Signs Vital Sign Reading Time Taken Comments Blood Pressure 145/89 08/07/2023 6:53 AM CDT Pulse 105 08/07/2023 6:53 AM CDT Temperature 37.7 C (99.9 F) 08/07/2023 6:53 AM CDT Respiratory Rate 16 08/07/2023 6:53 AM CDT Oxygen Saturation 100% 08/07/2023 6:53 AM CDT Inhaled Oxygen Concentration - - Weight 60.8 kg (134 lb 0.6 oz) 08/07/2023 6:53 A M CDT Height 159.4 cm (5' 2.76) [...] due to anomalous arch anatomy - 32MM Richard Ramirez M.D.Daly, Richard C, M.D.Alwatari, Yahya A, M.B., Alber, B.A.O.Reggie Geiger P.A.-C. RST ROMB OR DISCHARGE DISPOSITION Home or Self Care [1] ACTIVE ISSUES REQUIRING FOLLOW UP Your primary care provider is your long-term healthcare provider. Please follow-up with them for any medication refills, home care assistance, or an ongoing chronic medical conditions as needed Follow-up recommendations post Cardiac Surgery Follow-up Visit: [facility] CV Surgery via a phone visit on 08/14, Primary Care Provider appointment on 08/20, and Primary Design Agent appointment on 01/11. Follow-up Testing: Post-operative testing per the discretion of the PCP or Design Agent. Monitor electrolytes with BMP while on increased [...] atrial fibrillation or per recommendations by the Design Agent. Patient's local care management coordinator to resume home propafenone under their discretion [...] the cardiac rehab program. Patient referred to: [facility] Cardiac Rehabilitation [address] [place] [address] Recommend that the patient check with insurance company to verify coverage of the cost of cardiac rehabilitation program visits. OUTPATIENT FOLLOWUP [facility] Appointments: Scheduled Appointments 08/15/2023 1:00 PM RM 01 [facility]; [facility] T1-03 [facility] Cardiovascular Surgery 10/13/2023 3:00 PM RST INTAKE VISIT POD H 08 Admitting/Central Scheduling 10/17/2023 7:30 AM DX ROCH [address] Radiology 10/17/2023 7:45 AM DX ROCH 02 RM 210 Radiology 10/17/2023 9:00 AM MR BALJIT NORMAN MR 28 1.5T Radiology 10/17/2023 10:[address] ROCH NEUR LOS 217 Radiology 10/17/2023 3:30 PM Nelson Esqueda M.D. Neurological Surgery For appointment details refer to your Patient Appointment Guide. Outside [facility] Appointments: Consults and Follow-ups to Schedule Take a copy of this after visit summary to your appointment(s). [place], [place] August 21, 2023 - Monday --12:45 PM - Hospital Follow-Up with KYLE Patricio a colleague of Dr. Christine Rodriguez MD, primary care provider, at [place] [address] [address], [facility] [address], [place], [place] [phone] [place], [place] January 12, 2024 - Monday --10:00 AM - Hospital Follow-Up with Dr. Quan Lopez MD, Design Agent, at [facility] [address] [place] [phone] Fax: [facility] You may have outpatient appointments at [facility] that changed during your hospitalization. Referto your [facility] Patient Visit Guide (PVG) for the most current schedule of appointments and detailed instructions of tests/procedures. Call [phone], if you did not receive an PVG or need to CANCEL any [facility] appointment(s). DISCHARGE MEDICATIONS: At the time of dismissal, pain medications (examples include oxycodone, Dilaudid, Tramadol, etc.)will be prescribed to you if needed. Duration will be determined on a afzs-iy-xvbq basis and will not exceed 2 weeks. [...] Stopping: DO NOT TAKE UNTIL DISCUSSION WITH CLERICAL ADMINISTRATIVE ASSISTANT mupirocin (BACTROBAN) 2 % ointment Comments: Reason [...] ECG of 09-AUG-2023 10:29, QT has lengthened LA interval has increased Reviewed by KEVIN Cheng ECG 12 Lead Result Date: 08/09/2023 Sinus rhythm Nonspecific T wave abnormality When compared with ECG of 07-AUG-2023 14:16, LA interval has decreased QT has shortened Reviewed [...] AM CDT You were discharged from the [facility] Cardiovascular Surgery - [facility]. Please identify this service name if you call with questions after hospitalization. * Attachments The following attachments cannot be sent through Care Everywhere. * Amiodarone (By mouth) (Ivorian) * Aspirin (By mouth) (Ivorian) * Oxycodone, Rapid Release (By mouth) (Ivorian) * Potassium Chloride (By mouth) (Ivorian) * Senna (By mouth) (Ivorian) documented in this encounter Medications at Time [...] 3 (three) times a week. Monday, Monday, Michael furosemide (LASIX) 20 mg tablet Take 2 [...] this encounter Progress Notes * Kylah Bauman Pharm.D., R.Ph. - 08/11/2023 12:38 PM CDT Clinical [...] if rivaroxaban will be preferredgiven tolerated therapy bellman captain for afib-- to be resumed pending [...] due to post op bleedng) Kylah Bauman PharmTessa., R.Ph. * Smiley Khan - 08/11/2023 12:17 PM CDT 08/11/23 0953 [facility] Therapy Provided Massage Therapy Seen By Massage Therapist Consult Purpose Integrative pain management Pre-Assessment [facility] Treatment Previously Used No Patient Outcomes Pain Score (muscle tension and my feet feel swollen) Pain Score Post-Intervention 0 - No pain Information nursing approved of extremity massage Integrative Treatment Primary site Upper;Shoulder;Neck;Back;Right;Left;Feet;Extremities Primary Technique Amharic massage Position used Sitting (bedside chair) Massage Pressure Mild Treatment Status Treatment Completed Treatment Start Time 09 Treatment Stop Time 1035 Interruption (min) 15 (consult, nursing cares, etc) Treatment Length (min) 42 Massage therapy info/consult held with patient. Gladys Zamarripa verbally consents to massage therapy.requesting the massage to address upper back tension and bilateral lower extremity swelling. Nursing approved of lower extremity massage. Patient does not report of any areas of pain. Patient requests massage for relaxation Amharic massage provided to sub occipitals, bilateral upper [...] about patient's nutritional care please contact pager [phone] on weekdays or [phone] on weekends/holidays. * Rosa Varela P.T., D.PLuz - 08/11/2023 9:24 AM CDT Physical Therapy Inpatient Treatment and Discharge SUBJECTIVE Patient's Name: Gladys Zamarripa Referring/Attending Provider: Richard Aguayo M.D. Reason for Referral: Physical Therapy Evaluate and Treat History of Present Illness: Gladys Zamarripa is a 73 y.o. 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 Aguayo. Anticipated dismissal date: [...] if rivaroxaban will be preferredgiven tolerated therapy bellman captain for afib-- to be resumed pending [...] due to post op bleedng) Kylah Bauman PharmTessa., R.Ph. * Rosa Varela PLuz, D.P.T. - 08/10/2023 9:14 AM CDT Physical Therapy Inpatient Treatment SUBJECTIVE Patient's Name: Gladys Zamarripa Referring/Attending Provider: Richard Aguayo M.D. Reason for Referral: Physical Therapy Evaluate and Treat History of Present Illness: Gladys Zamarripa is a 73 y.o. 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 Patient/Caregiver Goals: No goals stated Subjective Comments: Patient received resting in bedside chair, agreeable to participation in PT session. OBJECTIVE Vital Signs Vitals monitored throughout session; within normal ranges. Outcome Measures: -[facility] Inpatient Short Form: AM-PAC Basic Mobility (V.2) [...] at or below 17 Clinicians answer the AM-PAC Inpatient Short Form based on observed patient [...] She has been diligent in mobilizing with staffing consultant. Given her deficits, the patient will continue [...] better be determined. Fantasma Hernandez, PT, DPT [phone] * Glory Minaya, APPRENTICE MACHINIST OUTSIDE, C.N.P. - 08/08/2023 12:26 PM CDT SUBJECTIVE [...] of care of this patient with the program consultant surgeon, Dr. Aguayo. Anticipated dismissal date: [...] rivaroxaban will be preferred given tolerated therapy bellman captain for afib Post op Bleeding: Found [...] Jose Lopes Pharm.D., R.Ph. * Tahir Flanagan PharmSho, R.Ph. - [...] P.A.-C. - 08/03/2023 10:30 AM CDT Gladys Zamarripa : 1950 Visit Date: 08/03/23 REFERRING PHYSICIAN: No ref. provider found Home care management coordinator: Quan Lopez MD [address] [address] Home primary care provider: Christine Rodriguez MD [address] [place] [phone] SUBJECTIVE CHIEF COMPLAINT / REASON FOR CONSULT [...] have greatly improved following last ablation in 2019. She states while onthe treadmill, she will [...] 06-05-2015 Other Injury Of Unspecified Body Region [id number] Fall on left knee Pain Cervical 08/23/2006 [...] 3596) pamphlet; Your guide to Cardiac Surgery EP3343; Surgical Site Infection: Reducing Your Risk (MC 6471); Central Venous Catheter Infection: Reducing Your Risk (GX8513). Patient instructed to report to [facility] for Bactroban prescription. Application [...] of the patient today. Time includes both jqi-keqm-ua-face efskykd-rg-vunc patient care. JACQUE Cam, P.A.-C. documented in this encounter Consult Notes * Tahir Alejo L.G.S.W., M.S.W. - 08/09/2023 1:23 PM CDTAssociated Order(s): IP CONSULT TO CARE MANAGEMENT Psychosocial Assessment SUBJECTIVE Assessment Information Referral Source: FITNESS TEACHER/PA Referral Name: Bon Manuel Jr., JOHNSON, C.N.P., M.S.N. Referral Reason: Psychosocial assessment, Discharge Planning Primary Language: Ivorian Stave Grader Services Used: No Sexuality/Pronoun: Straight Person(s) present [...] live in a farmhouse built in the 0s; remodeled to have all needs met on the main floor Support System: spouse, children, family members, methodist/nicole community, and friends/neighbors Primary Caregiver: self Spirituality/Uatsdin/Cultural Factors: Taoism History: No Employment: retired Psychosocial Risk Factors Impacting the Patient: mental health, comorbidities, and family stress Maltreatment: none reported Trauma: none reported Current Legal Status: Voluntary [facility] Transportation: In the past 12 months, has [...] have money to get more.: Never true SDAR Housing: What is your living situation today?: I have a steady place to live [facility] Intimate Partner Violence: Within the last year, [...] insurance: MEDICARE A AND B Secondary insurance: [employer] Advance Directives Legal Decision Maker: Self Advance Directives: N/A Advance Directives Status: None on file Baseline Functional Status Baseline Activities of Daily Living Mobility: Independent Dressing: Independent Feeding: Independent Bathing: Independent Grooming: Independent Toileting: Independent Behavior: Appropriate, Pleasant, Cooperative, Calm, Oriented Communication: Can write, Talks, Understands speaking, Understands Ivorian, Reads, Deaf/hard of hearing Shopping: Independent Medication [...] which she plans to continue. 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 She describes her as strong and able, but notes concern for the stress that her medical needs may place upon him. Additionally, the couple is experiencing stress around the divorce of their son from his spouse and providing support for their grandchildren. She lists her daughter, son, son-in- law, spouse, siblings of the patient and her spouse (particularly a bchjpy-od-cfi who is a retirednurse), niece and her older children, friends, and methodist community as being supportive. Though, she grapples [...] book club, meditation/prayer, mindful breathing, gratitude journal, methodist discussion group, visiting the theater(s), and gardening. [...] (06-05-2015), Other Injury Of Unspecified Body Region ([id number]), Pain Cervical (08/23/2006), PreDiabetes, and Skin Cancer [...] 73 y.o. 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 Precautions [...] Cognition: Alert, Oriented x 4 Outcome Measures: [facility] Inpatient Short Form: [facility] Basic Mobility (V.2) How much help [...] 3-5 steps with a railing?: A Little [facility] Basic Mobility (V.2) Raw Score: 18 -[facility] Basic Mobility (V.2) Standardized Score: 41.05 Interpretation: Based on scoring guidelines using the raw score value: Those going to home had an average score at or above 18 Those going to facility had an average score at or below 17 Clinicians answer the [facility] Inpatient Short Form based on observed [...] Genny Varela P.T., D.P.T. * Freida Coreas, [facility] - 08/09/2023 9:47 AM CDTAssociated Order(s): [...] the cardiac rehab program. Patient referred to: [facility] Cardiac Rehabilitation [address] [place] [id number] Recommend that the patient check with insurance [...] (06-05-2015), Other Injury Of Unspecified Body Region ([id number]), Pain Cervical (08/23/2006), PreDiabetes, and Skin Cancer [...] 73 y.o. 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 Precautions [...] at or below 17 Clinicians answer the [facility] Inpatient Short Form based on observed [...] the bedside by our excellent group of FITNESS TEACHER/PA (Hilaria) to assist with the ICU management [...] been billed separately. * Bon Manuel Jr., APPRENTICE MACHINIST OUTSIDE, C.N.P., M.S.N. - 08/07/2023 2:54 PM CDT [...] per verbal report Bypass/Cross Clamp Times: 15 minutes Epicardial Pacer Leads: None Chest Tubes: [...] 23.93 kg/m?? and landing CI/SVRI unknown no [place]-Mikhail catheter on the following infusions: Clevedipine 2 [...] of care of this patient with the program consultant surgeon, Dr. Aguayo. Surgical Fellow at bedside, and CCS Dr. Nikunj Mera documented in this encounter Nursing Notes * Lakesha Vance Lamin, R.N. - 08/11/2023 2:16 PM CDT Shift [...] 08/11/23 2:19 PM CDT * Nathanael Quezada CHomeroRLuz, L.R.T. - 08/07/2023 5:44 PM CDT Patient [...] pleural space clot. Surgeon Richard Aguayo MD Orthotic Assistant Tristian Herbert [facility] Findings As expected. Complications None Operative [...] M.D. - Primary * Tristian Herbert M.B., B.ChHomero, B.A.O. - Personnel Research Psychologist Anesthesia Type General Pre-operative Diagnosis Anemia Posthemorrhagic Acute (Blood Loss Anemia) Post-operative Diagnosis Anemia Posthemorrhagic Acute (Blood Loss Anemia) Surgical Procedure: Right VATS, evacuation of retained hemothorax, washout, control of chest wall bleeding Chest Tubes: Right pleural x 2 Right mediastinal Pacing wires: None Estimated Blood Loss 100 mL Specimens None Implants None Patient Condition:ICU: Stable Asad Herman, B.ChHomero, B.A.O.. * Op Note - Richard Aguayo [...] - Primary Suman Oh MD - Co-Primary Orthotic Assistant Tristian Herbert [facility] Personnel Research Psychologist A digital assistant actively participated and was necessary for [...] The patient was systemically heparinized. A 16 Bahraini cannula was inserted in the right superior vena cava through the previously placed catheter in the right internal jugular vein. This was done under echo guidance and Seldinger technique. A 17 Bahraini cannula was then placed in the right common femoral artery and a 25 Bahraini venous cannula placed in the right common [...] was then performed with a 32 mm CalpianuPlus Zanneltronic band. This was sutured from trigone to [...] the thoracoscope and electro cautery. A 20 Bahraini channel drain was placed through the left atrial retractor port site and into the pericardial space through the oblique sinus. We distally placed a 36 Bahraini channel drain through the right arm port [...] * Tristian Herbert M.B., B., B.A.O. - Personnel Research Psychologist * Reggie Geiger P.A.-C. - Other Patrol [employer] Anesthesia Type General Pre-operative Diagnosis Regurgitation Mitral Post-operative Diagnosis Regurgitation Mitral Surgical Procedure: Robotic mitral valve repair, cleft closure and ring annuloplasty Chest Tubes: Pericardial and pleural Aj tubes Pacing wires: None Post-op echo findings: Trace MR. No regional wall changes. Normal EF Pump Time: 01:20 Cross Clamp Time: 00:49 Specimens None Implants Implant Name LRB Site No. Used Flying Instructor Mfr No. Serial No. Status Type CLP HRZN TI 6 CLP RUBEN - [id number] N/A 1 [employer] [id number] Implanted Hardware e.g. pins/screws/rods DEV CRK SUT BLUNT CRV - [id number] N/A Mitral Valve 1 [employer] [id number] Implanted Hardware e.g. pins/screws/rods DEV CRK SUT BLUNT CRV - [id number] N/A Mitral Valve 1 [employer] [id number] Implanted Hardware e.g. pins/screws/rods DEV CRK SUT BLUNT CRV - [id number] N/A Mitral Valve 1 [employer] [id number] Implanted Hardware e.g. pins/screws/rods SUT FAST CRK QCK LD SUT FAST - [id number] N/A Mitral Valve 1 [employer] [id number] Implanted Hardware e.g. pins/screws/rods RNG ANULO MTRL [facility] 32 - [id number] - [id number] N/A Mitral Valve 1 [employer] [id number] Implanted Cardiac Valve Prosthesis Patient Condition:ICU: Stable Asad Herman, B.Ch., B.A.O. * Op Note - Suman Oh M.D. 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 Severe mitral regurgitation Left ventricular dilatation. 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 Severe mitral regurgitation Left ventricular dilatation. Personnel Research Psychologist A digital assistant actively participated and was necessary for [...] by anesthesia was replaced with a 16 Bahraini venous cannula using a Seldinger technique. Echo guidance was used to assure positioning of the cannulas and the guidewires. A 17French cannula was placed in the right femoral artery, and a 25 Bahraini venous cannula was placed inthe right femoral [...] with running 3-0 Prolene allowing the heart tofill with blood as the suture line was completed. Strong suction was placed on the needle tack ventin the ascending aorta and the cross-clamp was removed after 49 min. A spontaneous sinus rhythm developed. The patient was warmed to 37?? centigrade. When the heart was beating well the left lung was ventilated and de-airing was confirmed by intraoperative transesophageal [...] sutures. The remainder of the protamine was admini stered. The robot was undocked and the ports removed from the right chest. Hemostasis was carefullyachieved at each of the port sites with the aid of thoracoscope and cautery. A 20 Bahraini channel drain was placed through the atrial retractor port site in the 4th intercostal space anteriorly and pos itioned in the pericardium into the oblique sinus. The pericardium was closed with interrupted silksutures. A 36 Bahraini channel drain was placed through the right arm port site in the 6th intercostal space laterally. Hemostasis was assured in the thoracotomy wound. A intercostal block was performed at the 4th and 5th intercostal spaces with [...] cleft closure and valvuloplasty OP Note 08/06, 0830am, Oh: Dr. Aguayo and I were co-primary surgeons [...] questions. Thank you, STERLING Shaffer Clinical Documentation Asphalt Paving Foreman Query created by: STERLING Shaffer 08/28/2023 08:52 [...] (Latest Contact Info) Description 05/29/2024 12:15 PM SLAT PICKLER Clinical Communication Virtual Review in [place], [place] [address] [place] [phone] 05/31/2024 11:00 AM SLAT PICKLER Appointment Department of Laboratory Medicine and Pathology, [facility], in [place], [place] [address] [place] [phone] Patricia Parker APRN, C.N.P., D.N.P. [address] [place] [phone] 05/31/2024 2:00 PM SLAT PICKLER Comprehensive Visit Preoperative Evaluation Center in [place], [place] [address] [place] [phone] Arianna Jeffries M.D. [address] [place] [phone] 05/31/2024 2:45 PM SLAT PICKLER Comprehensive Visit Preoperative Evaluation Center in [place], [place] [address] [place] [address] [phone] Chris Moreno, APPRENTICE MACHINIST OUTSIDE, C.N.P., M.S. [address] [place] [phone] 06/03/2024 8:15 AM SLAT PICKLER Hospital Encounter Post Anesthesia Care Unit in [place], [place] [address] [place] [phone] Tahir Moore M.D. [address] [place] [phone] 06/03/2024 8:15 AM SLAT PICKLER - 06/03/2024 2:12 PM SLAT PICKLER Surgery RST ROMB MAIN OR [address] [place] [phone] Tahir Moore M.D. [address] [place] [phone] C1-2 fusion 07/02/2024 11:00 AM SLAT PICKLER Procedure visit Division of Pain Medicine in [place], [place] [address] [place] [phone] Adam Barlow M.D. [address] [place] [phone] Pending Results Name Type Priority Associated Diagnoses [...] WITH FUSION Stenosis Spinal 06/03/2024 8:15 AM SLAT PICKLER Scheduled Referrals Name Type Priority Associated Diagnoses Orde r Schedule External referral cardiac rehab program ([facility]) Outpatient Referral Routine Repair Mitral Valve [...] 4:00 AM CDT PREPARE PLATELETS STAT 08/08/2023 2:3 0 AM CDT PREPARE PLATELETS Routine 08/08/2023 12:14 [...] OXYGEN THERAPY Routine 08/07/2023 8:01 PM CDT THROMBOELASTOGRAPH, KAOLIN + HEPARINASE, B STAT 08/07/2023 [...] 1:57 PM CDT TRANSFUSE PLATELETS Routine 08/07/2023 1 :37 PM CDT TRANSFUSE PLATELETS Routine 08/07/2023 1 :14 PM CDT LACTATE, B STAT 08/07/2023 12:45 [...] CDT Regurgitation Mitral PREPARE PLATELETS STAT 08/03/2023 8:1 8 AM CDT PREPARE RED BLOOD CELLS Routine [...] us Alvaro Persaud P.A.-C. IMG DIAGNOSTIC IMAGING [facility] Final Result * (TTE) 2D ECHO [...] Normal left ventricular chamber size. Calculated ejection %. 4. Abnormal ventricular septal motion - post-operative [...] CDT) Ventricular Rate ECG/Min 82 BPM MUSE LA Interval 206 ms MUSE QRSD Interval 86 ms MUSE QT Interval 420 ms MUSE QTC Interval 490 ms MUSE P [place] 60 degrees MUSE R [place] 9 degrees MUSE T Wave [place] 14 degrees MUSE 08/11/2023 10:3 5 AM CDT 08/11/2023 10:36 AM CDT Impressions MUSE - 08/11/2023 10:36 AM CDT Normal sinus rhythm with 1st degree A-V block Nonspecific T wave abnormality Prolonged QT When compared with ECG of 09-AUG-2023 10:29, QT has lengthened LA interval has increased Reviewed by KEVIN Cheng Narrative Procedure Note Austin Rose M.D. - 08/11/2023 IMPRESSION: Normal sinus rhythm with 1st degree A-V block Nonspecific T wave abnormality Prolonged QT When compared with ECG of 09-AUG-2023 10:29, QT has lengthened LA interval has increased Reviewed by KEVIN Cheng [...] BLOOD ADD-ON Final Result Performing Organization Address City/[facility] [address]/ZIP Co de Phone Number [facility] [address] [place] [address], [facility] DTL [facility] [address] [place] [address] * (ABNORMAL) Basic Metabolic Panel (08/11/2023 10:04 AM CDT) Pathologist [facility] Potassium, S 4.3 3.6 - 5.2 mmol/L [...] APRN, C.N.P. LAB BLOOD ADD-ON Final Result [facility] [address] [place] [address], [facility] DTL [facility] [address] * DX Chest Portable 1 View (08/10/2023 [...] 7:10 AM CDT 08/10/2023 8:08 AM CDT us Glory Minaya APRN, C.N.P. LAB BLOOD ADD-ON Final Result [address] [address], [facility] [place] [address] [place] [address] * (ABNORMAL) Basic Metabolic Panel (08/10/2023 7:10 AM CDT) Pathologist [facility] Potassium, S 4.2 3.6 - 5.2 mmol/L [...] AM CDT 08/10/2023 8:24 AM CDT us Glory Minaya APRN, C.N.P. LAB BLOOD ADD-ON Final Result Performing Organization Address City/[facility] [address]/ZIP Co de Phone Number [facility] [address] [place] [address], [facility] DTL [facility] [address] [place] [address] * Glucose, POCT (08/10/2023 6:34 AM CDT) [facility] Glucose, POCT, B 109 70 - 140 mg/dL 08/10/2023 6:39 AM CDT PCLX Site Capillary 08/10/2023 6:39 AM CDT PCLX Last Intake > 4 hours 08/10/2023 6:39 AM CDT PCLX Blood 08/10/2023 6:34 AM CDT 08/10/2023 6:39 AM CDT us Unknown Provider LAB POCT ORDERABLES-MANUAL Rosmery l Result POC [facility] [address] [place] [address], [facility] PCLX [facility] [address] [place] [address] * Glucose, POCT (08/09/2023 10:22 PM CDT) Glucose, POCT, B 119 70 - 140 mg/dL 08/09/2023 10:37 PM CDT PCLX Site Capillary 08/09/2023 10:37 PM CDT PCLX Last Intake 2-3 hours 08/09/2023 10:37 PM CDT PCLX Blood 08/09/2023 10:2 2 PM CDT 08/09/2023 10:37 PM CDT us Unknown Provider LAB POCT ORDERABLES-MANUAL Rosmery l Result Performing Organization Address [facility] [address]/[facility] Co de Phone Number POC [facility] [address] [place] [address], [place] PCLX [facility] P[facility] [address] [place] [address] * Glucose, POCT (08/09/2023 5:33 PM CDT) Glucose, POCT, B 102 70 - 140 mg/dL 08/09/2023 5:44 PM CDT PCLX Site Capillary 08/09/2023 5:44 PM CDT PCLX Last Intake 2-3 hours 08/09/2023 5:44 PM CDT PCLX Blood 08/09/2023 5:33 PM CDT 08/09/2023 5:44 PM CDT us Unknown Provider LAB POCT ORDERABLES-MANUAL Rosmery l Result Performing Organization Address [facility] Co de Phone Number POC [facility] [address] [place] [address], [place] PCLX [facility] [address] [place] [address] * Glucose, POCT (08/09/2023 4:34 PM CDT) Glucose, POCT, B 83 70 - 140 mg/dL 08/09/2023 5:44 PM CDT PCLX Site Capillary 08/09/2023 5:44 PM CDT PCLX Last Intake 2-3 hours 08/09/2023 5:44 PM CDT PCLX Blood 08/09/2023 4:34 PM CDT 08/09/2023 5:44 PM CDT us Unknown Provider LAB POCT ORDERABLES-MANUAL Rosmery l Result Performing Organization Address City/[facility] [address]/ZIP Co de Phone Number POC [facility] [address] [place] [address], [facility] PCLX [facility] [address] [place] [address] * Glucose, POCT (08/09/2023 10:55 AM CDT) Pathologist [facility] Glucose, POCT, B 104 70 - 140 mg/dL 08/09/2023 11:25 AM CDT PCLX Site Capillary 08/09/2023 11:25 AM CDT PCLX Last Intake 2-3 hours 08/09/2023 11:25 AM CDT PCLX Blood 08/09/2023 10:5 5 AM CDT 08/09/2023 11:25 AM CDT us Unknown Provider LAB POCT ORDERABLES-MANUAL Rosmery l Result Performing Organization Address [facility] Co de Phone Number POC [facility] [address] [place] [address], [facility] PCLX [facility] [address] [place] [address] * ECG 12 Lead (08/09/2023 10:29 AM CDT) [facility] Ventricular Rate ECG/Min 97 BPM MUSE LA Interval 152 ms MUSE QRSD Interval 82 ms MUSE QT Interval 374 ms MUSE QTC Interval 474 ms MUSE P [place] 67 degrees MUSE R [place] 0 degrees MUSE T Wave [place] 12 degrees MUSE 08/09/2023 10:2 9 AM CDT 08/09/2023 10:37 AM CDT Impressions MUSE - 08/09/2023 10:37 AM CDT Sinus rhythm Nonspecific T wave abnormality When compared with ECG of 07-AUG-2023 14:16, LA interval has decreased QT has shortened Reviewed by KEVIN Pittman Narrative Procedure Note Thomas Gaines M.D., M.P.H. - 08/09/2023 IMPRESSION: Sinus rhythm Nonspecific T wave abnormality When compared with ECG of 07-AUG-2023 14:16, LA interval has decreased QT has shortened Reviewed by KEVIN Pittman us Russell Waller P.A.-C., M.S. ECG ORDERABLE S Final Result Performing Organization Address City/[facility] [address] [facility]/ZIP Co de Phone Number MUSE NA * [...] BLOOD ADD-ON Final Result Performing Organization Address City/[facility] [address]/ZIP Co de Phone Number [facility] [address] [place] [address], [facility] DTL [facility] [address] [place] [address] * (ABNORMAL) Basic Metabolic Panel (08/09/2023 6:43 [...] APRN, C.N.P. LAB BLOOD ADD-ON Final Result [facility] [address] [place] [address], [facility] [place] [address] [place] [address] * Glucose, POCT (08/09/2023 6:25 AM CDT) Glucose, POCT, B 127 70 - 140 mg/dL 08/09/2023 6:27 AM CDT PCLX Site Capillary 08/09/2023 6:27 AM CDT PCLX Last Intake > 4 hours 08/09/2023 6:27 AM CDT PCLX Blood 08/09/2023 6:25 AM CDT 08/09/2023 6:27 AM CDT us Unknown Provider LAB POCT ORDERABLES-MANUAL Rosmery l Result Performing Organization Address [facility] Co de Phone Number POC [facility] [address] [place] [address], [facility] PCLX [facility] [address] [place] [address] * (ABNORMAL) Glucose, POCT (08/08/2023 8:59 PM CDT) Glucose, POCT, B 147(H) 70 - 140 mg/dL 08/08/2023 9:03 PM CDT PCLX Site Capillary 08/08/2023 9:03 PM CDT PCLX Last Intake 1-2 hours 08/08/2023 9:03 PM CDT PCLX Blood 08/08/2023 8:59 PM CDT 08/08/2023 9:03 PM CDT us Unknown Provider LAB POCT ORDERABLES-MANUAL Edit ed Result - Final Performing Organization Address City/[facility] [address]/[facility] Co de Phone Number [facility] [address] [place] [address], [facility] PCLX [facility] [address] [place] [address] * (ABNORMAL) Glucose, POCT (08/08/2023 4:13 PM CDT) Glucose, POCT, B 146(H) 70 - 140 mg/dL 08/08/2023 4:39 PM CDT PCLX Site Capillary 08/08/2023 4:39 PM CDT PCLX Last Intake 2-3 hours 08/08/2023 4:39 PM CDT PCLX Blood 08/08/2023 4:13 PM CDT 08/08/2023 4:39 PM CDT us Unknown Provider LAB POCT ORDERABLES-MANUAL Rosmery l Result POC [facility] [address] [place] [address], [facility] PCLX [facility] P[facility] [address] [place] [address] * Transfuse Red Blood Cells : (08/08/2023 1:03 PM CDT) Kaitlynn Ko APRN, C.N.P., D.N.P. BLOOD TRANSFUSION ORDERABLES Edited Result - Final * Transfuse Red Blood Cells : , 1 Units (08/08/2023 1:03 PM CDT) Kaitlynn Ko APRN, C.N.P., D.N.P. BLOOD TRANSFUSION ORDERABLES Edited Result - Final * (ABNORMAL) CBC without Differential (08/08/2023 9:12 AM CDT) [facility] Hemoglobin 9.6(L) 11.6 - 15.0 g/dL 08/08/2023 [...] AD D-ON Final Result Performing Organization Address City/[facility] [address]/ZIP Co de Phone Number [facility] [address] [place] [address], [facility] STMA [facility] [address] [place] [address] * (ABNORMAL) Glucose, POCT (08/08/2023 8:30 AM CDT) Glucose, POCT, B 164(H) 70 - 140 mg/dL 08/08/2023 8:31 AM CDT PCLX Site ARTLINE 08/08/2023 8:31 AM CDT PCLX Blood 08/08/2023 8:30 AM CDT 08/08/2023 8:32 AM CDT us Unknown Provider LAB POCT ORDERABLES-MANUAL Rosmery l Result Performing Organization Address City/[facility] [address]/ZIP Co de Phone Number POC [facility] [address] [place], [place] [id number] [place] [address] PCLX [facility] P[facility] [address] [place] [address] * Transfuse Red Blood Cells : (08/08/2023 6:26 AM CDT) Kaitlynn Ko APRN, C.N.P., D.N.P. BLOOD TRANSF USION ORDERABLES Final Result * Transfuse Red Blood Cells : , 1 Units (08/08/2023 6:26 AM CDT) Kaitlynn Ko APRN, C.N.P., D.N.P. BLOOD TRANSF [...] Aortic calcifications. Degenerativechanges right shoulder. Tristian Kamara, B.Ch., B.A.O. IMG DIAGNOS TIC IMAGING PROCEDURES Final Result * Calcium, Ionized (08/08/2023 4:05 AM CDT) Pathologist [facility] Calcium, Ionized, B 4.92 4.65 - 5.30 mg/dL 08/08/2023 4:24 AM CDT [facility] Blood 08/08/2023 4:05 AM CDT 08/08/2023 4:22 AM CDT Tristian Kamara, B.Ch., B.A.O. LAB BLOOD N ON ADD-ON Final Result [facility] [address] [place] [address], [facility] [address] [place] [address] * Patient Status (08/08/2023 4:05 AM CDT) [facility] O2 Flow 1.0 L/min 08/08/2023 4:22 AM CDT [facility] Device NC 08/08/2023 4:22 AM CDT [facility] Spont. breaths/min 15 08/08/2023 4:22 AM CDT [facility] Blood 08/08/2023 4:05 AM CDT 08/08/2023 4:22 AM CDT Tristian Kamara, B.Ch., B.A.O. LAB BLOOD N ON ADD-ON Final Result [facility] [address] [place] [address], [facility] [address] [place] [address] * (ABNORMAL) CBC without Differential (08/08/2023 4:05 AM CDT) Pathologist [facility] Hemoglobin 6.9(L) 11.6 - 15.0 g/dL 08/08/2023 [...] 4:05 AM CDT 08/08/2023 5:24 AM CDT Glory Minaya APRN, C.N.P. LAB BLOOD ADD-ON Final Result Performing Organization Address City/[facility] [address]/ZIP Co de Phone Number [facility] [address] [place] [address], [facility] DTL [facility] [address] [place] [address] * (ABNORMAL) Basic Metabolic Panel (08/08/2023 4:05 AM CDT) Pathologist [facility] Potassium, S 4.1 3.6 - 5.2 mmol/L [...] BLOOD ADD-ON Final Result Performing Organization Address City/[facility] [address]/ZIP Co de Phone Number [facility] [address] [place] [address], [facility] DTL [facility] [address] [place] [address] * (ABNORMAL) Prothrombin Time (PT) (08/08/2023 4:05 AM CDT) Pathologist [facility] Prothrombin Time, P 13.1(H) 9.4 - 12.5 [...] A DD-ON Final Result Performing Organization Address City/[facility] [address]/ZIP Co de Phone Number [facility] [address] [place] [address], [facility] DTL [facility] [address] [place] [address] * Lactate, Whole Blood (08/08/2023 4:05 AM CDT) [facility] Lactate, B 1.2 0.5 - 2.2 mmol/L 08/08/2023 4:24 AM CDT [facility] Blood (Blood, Arterial) 08/08/2023 4:05 AM CDT 08/08/2023 4:22 AM CDT Tristian Kamara, B.Ch., B.A.O. LAB BLOOD N ON ADD-ON Final Result [facility] [address] [place] [address], [facility] STMA [facility] [address] [place] [address] * (ABNORMAL) Blood Gas with Coox, Arterial [...] LAB BLOOD N ON ADD-ON Final Result [facility] [address] [place] [address], [facility] [address] [place] [address] * (ABNORMAL) Hepatic Function Panel (08/08/2023 4:05 [...] A DD-ON Final Result Performing Organization Address City/[facility] [address]/ZIP Co de Phone Number [facility] [address] [place] [address], [facility] [place] [address] [place] [address] * (ABNORMAL) Glucose, POCT (08/08/2023 4:00 AM CDT) [facility] Glucose, POCT, B 161(H) 70 - 140 mg/dL 08/08/2023 4:02 AM CDT PCLX Site ARTLINE 08/08/2023 4:02 AM CDT PCLX Blood 08/08/2023 4:00 AM CDT 08/08/2023 4:02 AM CDT us Unknown Provider LAB POCT ORDERABLES-MANUAL Rosmery l Result POC [facility] [address] [place] [address], [facility] PCLX [facility] [address] [place] [address] * Lactate, B (08/08/2023 12:10 AM CDT) Pathologist [facility] Lactate, B 1.2 0.5 - 2.2 mmol/L 08/08/2023 12:15 AM CDT [facility] Blood (Blood, Venous) 08/08/2023 12:10 AM CDT 08/08/2023 12:13 AM CDT us Bon Manuel Jr., APPRENTICE MACHINIST OUTSIDE, C.N.P., M.S.N. LAB BLOO D NON ADD-ON Final Result Performing Organization Address City/[facility] [address]/ZIP Co de Phone Number [facility] [address] [place] [address], [facility] [address] [place] [address] * Tissue Inhibitor of Metalloproteinase 2 (TIMP-2) and Insulin-like Growth Factor Binding Protein 7 (IGFBP-7) Risk Score, Random, Urine (08/07/2023 11:56 PM CDT) Pathologist [facility] TIMP2/IGFBP7 BRIANNA Risk Score, U 0.14 <0.30 (ng/mL)(2) /1000 08/08/2023 1:58 AM CDT [facility] Comment: ----ADDITIONAL INFORMATION---- <0.30= <0.30 is considered low risk for acute kidney injury. 0.30-2.00= 0.30-2.00 indicates increased risk for acute kidney injury. >2.00= >2.00 indicates high risk for acute kidney injury. Urine (Urine, Catheter) 08/07/2023 11:56 PM CDT 08/08/2023 12:09 AM CDT Tristian Kamara, BAlthea, B.A.O. LAB URINE O RDERABLES Final Result Performing Organization Address City/[facility] [address]/ZIP Co de Phone Number [facility] [address] [place] [address], [facility] [place] [address] [place] [address] * DX Chest Portable 1 View (08/07/2023 [...] changes of mitral valve repair. Aortic calcification. Kaitlynn Ko APRN, C.N.P., D.N.P. IMG DIAGNOST IC IMAGING PROCEDURES Final Result * (ABNORMAL) Glucose, POCT (08/07/2023 11:08 PM CDT) Glucose, POCT, B 197(H) 70 - 140 mg/dL 08/07/2023 11:09 PM CDT PCLX Site ARTLINE 08/07/2023 11:09 PM CDT PCLX Blood 08/07/2023 11:0 8 PM CDT 08/07/2023 11:09 PM CDT Unknown Provider LAB POCT ORDERABLES-MANUAL Rosmery l Result Performing Organization Address City/[facility] [address]/ZIP Co de Phone Number POC [facility] [address] [place] [address], [facility] PCLX [facility] POC [address] [place] [address] * Fibrinogen (08/07/2023 11:04 PM CDT) Fibrinogen, P 288 200 - 393 mg/dL 08/07/2023 11:18 PM CDT [facility] Blood (Blood, Arterial) 08/07/2023 11:04 PM CDT 08/07/2023 11:07 PM CDT Kaitlynn Ko APRN, C.N.P., D.N.P. LAB BLOOD AD D-ON Final Result Performing Organization Address City/[facility] [address]/[facility] Co de Phone Number [facility] [address] STMA [facility] [address] [place] [address] * Prothrombin Time (PT) (08/07/2023 11:04 PM [...] AD D-ON Final Result Performing Organization Address City/[facility] [address]/ZIP Co de Phone Number [facility] [address] [place], [place] [address] [place] [address] 200 [place] [address] * Patient Status (08/07/2023 11:04 PM CDT) [facility] O2 Flow 1.0 L/min 08/07/2023 11: 07 PM CDT [facility] Device NC 08/07/2023 11: 07 PM CDT [facility] Blood 08/07/2023 11:0 4 PM CDT 08/07/2023 11:07 PM CDT Kaitlynn Ko APRN, C.N.P., D.N.P. LAB BLOOD NO N ADD-ON Final Result [facility] [address] [place] [address] * (ABNORMAL) Calcium, Ionized (08/07/2023 11:04 PM CDT) [facility] Calcium, Ionized, B 5.32(H) 4.65 - 5.30 mg/dL 08/07/2023 11:11 PM CDT [facility] Blood (Blood, Venous) 08/07/2023 11:04 PM CDT 08/07/2023 11:07 PM CDT Kaitlynn Ko APRN, C.N.P., D.N.P. LAB BLOOD NO N ADD-ON Final Result [facility] [address] [place] [address] * (ABNORMAL) Basic Metabolic Panel (08/07/2023 11:04 PM CDT) [facility] Potassium, P 3.8 3.6 - 5.2 mmol/L 08/07/2023 11:25 PM CDT [facility] Sodium, P 135 135 - 145 mmol/L [...] D.N.P. LAB BLOOD AD D-ON Final Result [facility] [address] [place] [address], [facility] [address] [place] [address] * (ABNORMAL) CBC without Differential (08/07/2023 11:04 [...] D.N.P. LAB BLOOD AD D-ON Final Result [facility] [address] [place] [address] * Lactate (08/07/2023 11:04 PM CDT) [facility] Lactate, P 1.7 0.5 - 2.2 mmol/L 08/07/2023 11:34 PM CDT [facility] Blood (Blood, Arterial) 08/07/2023 11:04 PM CDT 08/07/2023 11:07 PM CDT Kaitlynn Ko APRN, C.N.P., D.N.P. LAB BLOOD NO N ADD-ON Final Result [facility] [address] [place] [address] * (ABNORMAL) Blood Gas with Coox, Arterial [...] LAB BLOOD NO N ADD-ON Final Result [facility] [address] [place] [address], [facility] [address] [place] [address] * Transfuse Red Blood Cells : (08/07/2023 10:06 PM CDT) Bon Manuel Jr., JOHNSON, C.N.P., M.S.N. BLOOD TR ANSFUSION ORDERABLES Final Result * Transfuse Red Blood Cells : , 1 Units (08/07/2023 10:06 PM CDT) Bon Manuel Jr., JOHNSON, C.N.P., M.S.N. BLOOD TR ANSFUSION ORDERABLES Final Result * Patient Status (08/07/2023 8:45 PM CDT) FIO2 1.00 0.21=AIR 08/07/2023 8:4 5 PM CDT [facility] Blood 08/07/2023 8:45 PM CDT 08/07/2023 8:45 PM CDT Armani Quispe APPRENTICE MACHINIST OUTSIDE, WELFARE SUPERVISOR, DNAP LAB BLOOD NON A DD-ON Final Result Performing Organization Address City/[facility] [address]/ZIP Co de Phone Number [facility] [address] [place] [address] * Lactate, B - Intra-op (08/07/2023 8:45 PM CDT) [facility] Lactate, B 1.1 0.5 - 2.2 mmol/L 08/07/2023 8:48 PM CDT [facility] Blood (Blood, Venous) 08/07/2023 8:45 PM CDT 08/07/2023 8:45 PM CDT Nba Ramírez M.D. LAB BLOOD NON ADD-ON Fin al Result [facility] [address] [place] [address] * (ABNORMAL) Glucose, Whole Blood (08/07/2023 8:45 PM CDT) Pathologist [facility] Glucose 174(H) 70 - 140 mg/dL 08/07/2023 8:48 PM CDT [facility] Blood (Blood, Arterial Line) 08/07/2023 8:45 PM CDT 08/07/2023 8:45 PM CDT Nba Ramírez M.D. LAB BLOOD ADD-ON Final R esult Performing Organization Address City/[facility] [address]/ZIP Co de Phone Number [facility] [address] [place] [address], [facility] [address] [place] [address] * Potassium, Blood (08/07/2023 8:45 PM CDT) Potassium, B 3.7 3.6 - 5.2 mmol/L 08/07/2023 8:49 PM CDT [facility] Blood (Blood, Arterial Line) 08/07/2023 8:45 PM CDT 08/07/2023 8:45 PM CDT Nba Ramírez M.D. LAB BLOOD NON ADD-ON Fin al Result Performing Organization Address [facility] Co de Phone Number [facility] [address] [place] [address], [facility] [address] [place] [address] * Sodium, B (08/07/2023 8:45 PM CDT) Sodium, B 136 135 - 145 mmol/L 08/07/2023 8:48 PM CDT [facility] Blood (Blood, Arterial Line) 08/07/2023 8:45 PM CDT 08/07/2023 8:45 PM CDT Nba Ramírez M.D. LAB BLOOD NON ADD-ON Fin al Result [facility] [address] [place] [address], [facility] [address] [place] [address] * (ABNORMAL) Calcium, Ionized (08/07/2023 8:45 PM CDT) Calcium, Ionized, B 5.51(H) 4.65 - 5.30 mg/dL 08/07/2023 8:49 PM CDT [facility] Blood (Blood, Arterial Line) 08/07/2023 8:45 PM CDT 08/07/2023 8:45 PM CDT Nba Ramírez M.D. LAB BLOOD NON ADD-ON Fin al Result [facility] [address] [place] [address], [facility] ST[facility] [address] [place] [address] * (ABNORMAL) Blood Gas with Coox, Arterial [...] ADD-ON Fin al Result Performing Organization Address City/[facility] Co de Phone Number [facility] [address] [place] [address], [facility] [address] [place] [address] * Prothrombin Time (PT) (08/07/2023 8:43 PM CDT) Pathologist [facility] Prothrombin Time, P 12.5 9.4 - 12.5 sec 08/07/2023 8:54 PM CDT [facility] INR 1.1 0.9 - 1.1 08/07/2023 8:54 PM CDT [facility] Comment: ----ADDITIONAL INFORMATION---- Standard intensity warfarin therapeutic range: 2.0 to 3.0 High intensity warfarin therapeutic range: 2.5 to 3.5 Blood (Blood, Arterial Line) 08/07/2023 8:43 PM CDT 08/07/2023 8:43 PM CDT us Nba Ramírez M.D. LAB BLOOD ADD-ON Final R esult Performing Organization Address [facility] Co de Phone Number [facility] [address] [place] [address], [facility] [address] [place] [address] * (ABNORMAL) Platelet Count (08/07/2023 8:43 PM CDT) Platelet Count 147(L) 157 - 371 x10(9)/L 08/07/2023 8:48 PM CDT [facility] Blood (Blood, Arterial Line) 08/07/2023 8:43 PM CDT 08/07/2023 8:43 PM CDT Nba Ramírez M.D. LAB BLOOD ADD-ON Final R esult [facility] [address] [place] [address], [facility] [address] [place] [address] * Fibrinogen (08/07/2023 8:43 PM CDT) Pathologist [facility] Fibrinogen, P 264 200 - 393 mg/dL 08/07/2023 8:54 PM CDT [facility] Blood (Blood, Arterial Line) 08/07/2023 8:43 PM CDT 08/07/2023 8:43 PM CDT Nba Ramírez M.D. LAB BLOOD ADD-ON Final R esult [facility] [address] [place] [address], [facility] [address] [place] [address] * APTT (Activated Partial Thromboplastin Time) (08/07/2023 8:43 PM CDT) [facility] Activated Partial Thrombopl Time, P 27 25 - 37 sec 08/07/2023 8:57 PM CDT [facility] Blood (Blood, Arterial Line) 08/07/2023 8:43 PM CDT 08/07/2023 8:43 PM CDT Nba Ramírez M.D. LAB BLOOD ADD-ON Final R esult [facility] [address] [place] [address], [facility] [address] [place] [address] * ACT (Activated Clotting Time), POCT (08/07/2023 8:38 PM CDT) [facility] Activated Clotting Time 138 82 - 152 sec 08/07/2023 8:41 PM CDT PCLX 08/07/2023 8:38 PM CDT 08/07/2023 8:41 PM CDT us Unknown Provider LAB POCT ORDERABLES - DEVICE Fi nal Result Performing Organization Address City/[facility] [address]/[facility] Co de Phone Number POC [facility] [address] [place] [address], [facility] PCLX [facility] POC [address] [place] [address] * Thromboelastograph, Kaolin + Heparinase (08/07/2023 7:18 PM CDT) R-Heparinase, TEG 5.8 1.9 - 6.5 min 08/07/2023 8:36 PM CDT [facility] K-Heparinase, TEG 1.2 0.9 - 1.8 min 08/07/2023 8:36 PM CDT [facility] Angle-Heparina se, TEG 73.7 65.5 - 77.1 degrees 08/07/2023 8:36 PM CDT [facility] MA-Heparinase, TEG 64.0 58.2 - 76.2 mm 08/07/2023 8:36 PM CDT [facility] [id number]-[id number] e, TEG 0.1 0.0 - 4.7 % 08/07/2023 8:36 PM CDT [facility] Vz62-Hbjhvyyhl e, TEG 1.9 0.0 - 15.0 % 08/07/2023 8:36 PM CDT [facility] Blood (Blood, Arterial) 08/07/2023 7:18 PM CDT 08/07/2023 7:18 PM CDT us Yennifer Kennedy APRN, C.N.P., D.N.P. LAB BLOOD NON ADD-ON Final Result [facility] [address] [place] [address], [place] STMA [facility] [address] [place] [address] * Fibrinogen (08/07/2023 7:10 PM CDT) Fibrinogen, P 288 200 - 393 mg/dL 08/07/2023 7:27 PM CDT [facility] Blood (Blood, Venous) 08/07/2023 7:10 PM CDT 08/07/2023 7:15 PM CDT Bon Manuel Jr., Socorro ORNELAS.N.P., M.S.N. LAB BLOO D ADD-ON Final Result Performing Organization Address [facility] [address] [facility] Co de Phone Number [facility] [address] [place] [address], [facility] [address] [place] [address] * Prothrombin Time (PT) (08/07/2023 7:10 PM CDT) Pathologist [facility] Prothrombin Time, P 11.7 9.4 - 12.5 sec 08/07/2023 7:28 PM CDT [facility] IN[facility] 1.1 0.9 - 1.1 08/07/2023 7:28 PM CDT [facility] Comment: ----ADDITIONAL INFORMATION---- Standard intensity warfarin therapeutic range: 2.0 to 3.0 High intensity warfarin therapeutic range: 2.5 to 3.5 Blood (Blood, Venous) 08/07/2023 7:10 PM CDT 08/07/2023 7:15 PM CDT Bon Manuel Jr., Socorro ORNELAS.N.P., M.S.N. LAB BLOO D ADD-ON Final Result Performing Organization Address [facility] [address]/[facility] Co de Phone Number [facility] [address] [place] [address], [facility] [address] [place] [address] * (ABNORMAL) CBC without Differential (08/07/2023 7:10 PM CDT) Pathologist [facility] Hemoglobin 8.1(L) 11.6 - 15.0 g/dL 08/07/2023 7:19 PM CDT [facility] Hematocrit 23.9(L) 35.5 - 44.9 % 08/07/2023 [...] D ADD-ON Final Result Performing Organization Address City/[facility] [address]/ZIP Co de Phone Number [facility] [address] [facility] 200 [place] [address] * APTT (Activated Partial Thromboplastin Time) (08/07/2023 7:10 PM CDT) [facility] Activated Partial Thrombopl Time, P 28 25 - 37 sec 08/07/2023 7:30 PM CDT [facility] Blood (Blood, Venous) 08/07/2023 7:10 PM CDT 08/07/2023 7:15 PM CDT Bon Manuel Jr., JOHNSON, C.N.P., M.S.N. LAB BLOO D ADD-ON Final Result [facility] [address] [place] [address], [facility] STMA [facility] [address] [place] [address] * DX Chest Portable 1 View (08/07/2023 7:03 PM CDT) Anatomical Region Laterality Modality Chest, Thoracic RST LOS, o [facility] AR LOS, Thoracic FLA LOS N/A Digital Radiography [...] right lateral chest wall. Bon Manuel Jr., APPRENTICE MACHINIST OUTSIDE, C.N .P., M.S.N. IMG DIAGNOSTIC IMAGING PROCEDURES Final Result * DX Chest Portable 1 View (08/07/2023 5:40 PM CDT) Anatomical Region Laterality Modality Chest, Thoracic RST [facility], [facility] LOS, Thoracic FLA LOS N/A Digital Radiography [...] Result * Potassium (08/07/2023 5:21 PM CDT) [facility] Potassium, P 4.4 3.6 - 5.2 mmol/L 08/07/2023 5:45 PM CDT [facility] Blood (Blood, Venous) 08/07/2023 5:21 PM CDT 08/07/2023 5:32 PM CDT Bon Manuel Jr., JOHNSON, C.N.P., M.S.N. LAB BLOO D ADD-ON Final Result [facility] [address] [place] [address], [place] [facility] [place] [address] [place] [address] * (ABNORMAL) Glucose, POCT (08/07/2023 5:16 PM CDT) Pathologist [facility] Glucose, POCT, B 162(H) 70 - 140 mg/dL 08/07/2023 5:24 PM CDT PCLX Site ARTLINE 08/07/2023 5:24 PM CDT PCLX Blood 08/07/2023 5:16 PM CDT 08/07/2023 5:24 PM CDT Unknown Provider LAB POCT ORDERABLES-MANUAL Rosmery l Result POC [facility] [address] [place] [address], [facility] PCLX [facility] [address] [place] [address] * Prothrombin Time (PT) (08/07/2023 5:16 PM CDT) Pathologist [facility] Prothrombin Time, P 12.3 9.4 - 12.5 sec 08/07/2023 5:43 PM CDT [facility] INR 1.1 0.9 - 1.1 08/07/2023 5:43 PM CDT [facility] Comment: ----ADDITIONAL INFORMATION---- Standard intensity warfarin therapeutic range: 2.0 to 3.0 High intensity warfarin therapeutic range: 2.5 to 3.5 Blood (Blood, Arterial) 08/07/2023 5:16 PM CDT 08/07/2023 5:32 PM CDT us Yennifer Kennedy APRN C.N.P., D.N.P. LAB BLOOD ADD- ON Final Result [facility] [address] [place] [address], [facility] STMA [facility] [address] [place] [address] * Fibrinogen (08/07/2023 5:16 PM CDT) Pathologist [facility] Fibrinogen, P 280 200 - 393 mg/dL 08/07/2023 5:42 PM CDT [facility] Blood (Blood, Arterial) 08/07/2023 5:16 PM CDT 08/07/2023 5:32 PM CDT Yennifer Kennedy APRN, C.N.P., D.N.P. LAB BLOOD ADD- ON Final Result [facility] [address] [place] [address], [facility] [address] [place] [address] * (ABNORMAL) CBC with Differential, Blood (08/07/2023 5:16 PM CDT) Hemoglobin 8.6(L) 11.6 - 15.0 g/dL 08/07/2023 [...] CDT 08/07/2023 5:32 PM CDT Yennifer Kennedy APRN C.N.P., D.N.P. LAB BLOOD ADD- ON Final Result [facility] [address] [place] [address], [place] ST[facility] [address] [place] [address] [facility] [address] [place] [address] * Transfuse Fresh Frozen Plasma :Bleeding with altered coagulation; 180 mL/hr (08/07/2023 4:27 PM CDT) Result [facility] Yennifer Kennedy APRN C.N.P., D.N.P. BLOOD TRANSFUS ION ORDERABLES Final Result * Transfuse Fresh Frozen Plasma :Bleeding with altered coagulation; 180 mL/hr, 2 Units (08/07/2023 4:27 PM CDT) Result Nicolas Yennifer Kennedy APRN, C.N.P., D.N.P. BLOOD TRANSFUS ION ORDERABLES Final Result * Transfuse Red Blood Cells : (08/07/2023 4:27 PM CDT) Result [facility] Yennifer Kennedy APRN, C.N.P., D.N.P. BLOOD TRANSFUS ION ORDERABLES Final Result * Transfuse Red Blood Cells : , 1 Units (08/07/2023 4:27 PM CDT) Result Nicolas Kennedy APRN, C.N.P., D.N.P. BLOOD TRANSFUS ION ORDERABLES Final Result * Transfuse Fresh Frozen Plasma :Bleeding with altered coagulation; 180 mL/hr (08/07/2023 3:21 PM CDT) Result Nicolas Kennedy APRN, C.N.P., [...] CDT) Ventricular Rate ECG/Min 76 BPM MUSE LA Interval 218 ms MUSE QRSD Interval 86 ms MUSE QT Interval 450 ms MUSE QTC Interval 506 ms MUSE P [place] 83 degrees MUSE R [place] 60 degrees MUSE T Wave [place] 86 degrees MUSE 08/07/2023 2:16 PM CDT [...] B.Ch., B.A.O. ECG ORDERAB LES Final Result Performing Organization Address City/[facility] [address]/ZIP Co de Phone Number MUSE NA * Patient Status (08/07/2023 2:07 PM CDT) [facility] FIO2 0.21 0.21=AIR 08/07/2023 2:10 PM CDT ST[facility] Spont. breaths/min 18 08/07/2023 2:10 PM CDT [facility] Blood 08/07/2023 2:07 PM CDT 08/07/2023 2:10 PM CDT us Tristian Kamara, B.Ch., B.A.O. LAB BLOOD N ON ADD-ON Final Result Performing Organization Address City/[facility] [address]/ZIP Co de Phone Number [facility] [address] [place] [address], [facility] [address] [place] [address] * Lactate, Whole Blood (08/07/2023 2:07 PM CDT) [facility] Lactate, B 0.7 0.5 - 2.2 mmol/L 08/07/2023 2:13 PM CDT [facility] Blood (Blood, Arterial) 08/07/2023 2:07 PM CDT 08/07/2023 2:10 PM CDT Tristian Kamara, Jani.Ch., B.A.O. LAB BLOOD N ON ADD-ON Final Result Performing Organization Address City/[facility] [address]/[facility] Co de Phone Number [facility] [address] [place] [address], [facility] [address] [place] [address] * (ABNORMAL) Calcium, Ionized (08/07/2023 2:07 PM CDT) Calcium, Ionized, B 4.61(L) 4.65 - 5.30 mg/dL 08/07/2023 2:14 PM CDT [facility] Blood (Blood, Arterial) 08/07/2023 2:07 PM CDT 08/07/2023 2:10 PM CDT Tristian Kamara, Jani.Ch., B.A.O. LAB BLOOD N ON ADD-ON Final Result Performing Organization Address [facility] Co de Phone Number [facility] [address] [place] [address], [facility] [address] [place] [address] * (ABNORMAL) Blood Gas with Coox, Arterial [...] ON ADD-ON Final Result Performing Organization Address City/[facility] [address]/ZIP Co de Phone Number [facility] [address] [place] [address], [facility] STMA [facility] [address] [place] [address] * (ABNORMAL) Glucose, POCT (08/07/2023 2:06 PM CDT) [facility] Glucose, POCT, B 152(H) 70 - 140 mg/dL 08/07/2023 2:40 PM CDT PCLX Blood 08/07/2023 2:06 PM CDT 08/07/2023 2:41 PM CDT us Unknown Provider LAB POCT ORDERABLES-MANUAL Rosmery l Result Performing Organization Address City/[facility] [address]/ZIP Co de Phone Number POC [facility] [address] [place] [address], [facility] PCLX [facility] POC [address] [place] [address] * Fibrinogen (08/07/2023 2:06 PM CDT) Pathologist [facility] Fibrinogen, P 312 200 - 393 mg/dL 08/07/2023 2:22 PM CDT [facility] Blood (Blood, Venous) 08/07/2023 2:06 PM CDT 08/07/2023 2:10 PM CDT Tristian Kamara, B.Ch., B.A.O. LAB BLOOD A DD-ON Final Result Performing Organization Address [facility] Co de Phone Number [facility] [address] [place] [address] * (ABNORMAL) Prothrombin Time (PT) (08/07/2023 2:06 PM CDT) [facility] Prothrombin Time, P 13.1(H) 9.4 - 12.5 sec 08/07/2023 2:22 PM CDT [facility] INR 1.2 0.9 - 1.1 08/07/2023 2:22 PM CDT [facility] Comment: ----ADDITIONAL INFORMATION---- Standard intensity warfarin therapeutic range: 2.0 to 3.0 High intensity warfarin therapeutic range: 2.5 to 3.5 Blood (Blood, Venous) 08/07/2023 2:06 PM CDT 08/07/2023 2:10 PM CDT Tristian Kamara, B.Ch., B.A.O. LAB BLOOD A DD-ON Final Result Performing Organization Address [facility] Co de Phone Number [facility] [address] [place] [address] * APTT (Activated Partial Thromboplastin Time) (08/07/2023 2:06 PM CDT) [facility] Activated Partial Thrombopl Time, P 31 25 - 37 sec 08/07/2023 2:30 PM CDT [facility] Blood (Blood, Venous) 08/07/2023 2:06 PM CDT 08/07/2023 2:10 PM CDT Tristian Kamara, MuCh., B.A.O. LAB BLOOD A DD-ON Final Result Performing Organization Address [facility] Co de Phone Number [facility] [address] [place] [address], [facility] STMA [facility] [address] [place] [address] * (ABNORMAL) CBC without Differential (08/07/2023 2:06 PM CDT) [facility] Hemoglobin 10.0(L) 11.6 - 15.0 g/dL 08/07/2023 [...] B.A.O. LAB BLOOD A DD-ON Final Result [facility] [address] [place] [address], [facility] [address] [place] [address] * (ABNORMAL) Basic Metabolic Panel (08/07/2023 2:06 [...] B.A.O. LAB BLOOD A DD-ON Final Result [facility] [address] [place] [address], [facility] STMA [facility] [address] [place] [address] * Transfuse Platelets : (08/07/2023 1:38 PM CDT) Result [facility] us Yaritza Culver M.D., Ph.D. BLOOD TRANSFUSION ORDER VONNIE Final Result * Transfuse Platelets : (08/07/2023 1:14 PM CDT) Result [facility] Yaritza Culver M.D., Ph.D. BLOOD TRANSFUSION ORDER VONNIE Final Result * Lactate, B - Intra-op (08/07/2023 12:45 PM CDT) Lactate, B 0.6 0.5 - 2.2 mmol/L 08/07/2023 12:47 PM CDT [facility] Blood (Blood, Venous) 08/07/2023 12:45 PM CDT 08/07/2023 12:45 PM CDT Result [facility] Yaritza Culver M.D., Ph.D. LAB BLOOD NON ADD-ON Fi nal Result [facility] [address] [place], [place] [address] [address] [place] [address] * Glucose, Whole Blood (08/07/2023 12:45 PM CDT) Glucose 133 70 - 140 mg/dL 08/07/2023 12:47 PM CDT [facility] Blood (Blood, Arterial Line) 08/07/2023 12:45 PM CDT 08/07/2023 12:45 PM CDT Result [facility] us Yaritza Culver M.D., Ph.D. LAB BLOOD ADD-ON Final Result [facility] [address] [place] [address], [facility] [address] [place] [address] * (ABNORMAL) Potassium, Blood (08/07/2023 12:45 PM CDT) Potassium, B 3.1(L) 3.6 - 5.2 mmol/L 08/07/2023 12:47 PM CDT [facility] Blood (Blood, Arterial Line) 08/07/2023 12:45 PM CDT 08/07/2023 12:45 PM CDT Yaritza Culver M.D., Ph.D. LAB BLOOD NON ADD-ON Fi nal Result Performing Organization Address City/[facility] [address]/ZIP Co de Phone Number [facility] [address] [place] [address], [facility] [address] [place] [address] * Sodium, B (08/07/2023 12:45 PM CDT) Sodium, B 136 135 - 145 mmol/L 08/07/2023 12:47 PM CDT [facility] Blood (Blood, Arterial Line) 08/07/2023 12:45 PM CDT 08/07/2023 12:45 PM CDT Result [facility] Yaritza Culver M.D., Ph.D. LAB BLOOD NON ADD-ON Fi nal Result Performing Organization Address City/[facility] [address]/ZIP Co de Phone Number [facility] [address] [place] [address], [facility] [address] [place] [address] * Calcium, Ionized (08/07/2023 12:45 PM CDT) Calcium, Ionized, B 4.68 4.65 - 5.30 mg/dL 08/07/2023 12:47 PM CDT [facility] Blood (Blood, Arterial Line) 08/07/2023 12:45 PM CDT 08/07/2023 12:45 PM CDT us Yaritza Culver M.D., Ph.D. LAB BLOOD NON ADD-ON Fi nal Result Performing Organization Address City/[facility] [address]/ZIP Co de Phone Number [facility] [address] [place], [place] [address] [place] [address] [address] [place] [address] * (ABNORMAL) Blood Gas with Coox, Arterial [...] LAB BLOOD NON ADD-ON Fi nal Result [facility] [address] [place] [address], [facility] [address] [place] [address] * Transfuse autologous RBC (Cell Salvage) : (08/07/2023 12:42 PM CDT) Yaritza Culver M.D., Ph.D. BLOOD TRANSFUSION ORDER VONNIE Final Result * (ABNORMAL) Platelet Count (08/07/2023 12:03 PM CDT) Platelet Count 80(L) 157 - 371 x10(9)/L 08/07/2023 12:13 PM CDT [facility] Blood (Blood, Arterial Line) 08/07/2023 12:03 PM CDT 08/07/2023 12:03 PM CDT Result [facility] Yaritza Culver M.D., Ph.D. LAB BLOOD ADD-ON Final Result Performing Organization Address [facility] [address] [facility]/ZIP Co de Phone Number [facility] [address] [place] [address], [facility] [address] [place] [address] * (ABNORMAL) Prothrombin Time (PT) (08/07/2023 12:03 PM CDT) Prothrombin Time, P 16.6(H) 9.4 - 12.5 sec 08/07/2023 12:19 PM CDT [facility] 1.5 0.9 - 1.1 08/07/2023 12:19 PM CDT [facility] Comment: ----ADDITIONAL INFORMATION---- Standard intensity warfarin therapeutic range: 2.0 to 3.0 High intensity warfarin therapeutic range: 2.5 to 3.5 Blood (Blood, Arterial Line) 08/07/2023 12:03 PM CDT 08/07/2023 12:03 PM CDT Result [facility] Yaritza Culver M.D., Ph.D. LAB BLOOD ADD-ON Final Result Performing Organization Address City/[facility] [address]/ZIP Co de Phone Number [facility] [address] [place] [address], [facility] [address] [place] [address] * Fibrinogen (08/07/2023 12:03 PM CDT) Fibrinogen, P 284 200 - 393 mg/dL 08/07/2023 12:18 PM CDT [facility] Blood (Blood, Arterial Line) 08/07/2023 12:03 PM CDT 08/07/2023 12:03 PM CDT Yaritza Culver M.D., Ph.D. LAB BLOOD ADD-ON Final Result Performing Organization Address [facility] [address]/ZIP Co de Phone Number [facility] [address] [place] [address], [facility] [address] [place] [address] * APTT (Activated Partial Thromboplastin Time) (08/07/2023 12:03 PM CDT) Pathologist [facility] Activated Partial Thrombopl Time, P 30 25 - 37 sec 08/07/2023 12:21 PM CDT [facility] Blood (Blood, Arterial Line) 08/07/2023 12:03 PM CDT 08/07/2023 12:03 PM CDT Yaritza Culver M.D., Ph.D. LAB BLOOD ADD-ON Final Result Performing Organization Address [facility] Co de Phone Number [facility] [address] [place] [address], [facility] [address] [place] [address] * ACT (Activated Clotting Time), POCT (08/07/2023 12:00 PM CDT) Activated Clotting Time 132 82 - 152 sec 08/07/2023 12:02 PM CDT PCLX 08/07/2023 12:0 0 PM CDT 08/07/2023 12:02 PM CDT us Unknown Provider LAB POCT ORDERABLES - DEVICE Fi nal Result POC [facility] [address] [place] [address], [facility] PCLX [facility] POC [address] [place] [address] * (ABNORMAL) ACT (Activated Clotting Time), POCT (08/07/2023 11:30 AM CDT) Activated Clotting Time 491(H) 82 - 152 sec 08/07/2023 11:38 AM CDT PCLX 08/07/2023 11:3 0 AM CDT 08/07/2023 11:38 AM CDT us Unknown Provider LAB POCT ORDERABLES - DEVICE Fi nal Result Performing Organization Address [facility] Co de Phone Number [facility] [address] [place], [place] [address] PCLX [facility] POC [address] [place] [address] * Glucose, POCT (08/07/2023 11:28 AM CDT) Glucose, POCT, B 99 70 - 140 mg/dL 08/07/2023 11:29 AM CDT [facility] Blood 08/07/2023 11:2 8 AM CDT 08/07/2023 11:29 AM CDT us Unknown Provider LAB POCT ORDERABLES-MANUAL Rosmery l Result Performing Organization Address City/[facility] [address] [facility]/ZIP Co de Phone Number POC RST [facility] [address] [place], [place] [address] PCSM [facility] POC [address] [place] [address] * (ABNORMAL) ACT (Activated Clotting Time), POCT (08/07/2023 10:56 AM CDT) Activated Clotting Time 619(H) 82 - 152 sec 08/07/2023 11:06 AM CDT PCLX 08/07/2023 10:5 6 AM CDT 08/07/2023 11:06 AM CDT us Unknown Provider LAB POCT ORDERABLES - DEVICE Fi nal Result Performing Organization Address City/[facility]/ZIP Co de Phone Number POC [facility] [address] [place] [address], [facility] PCLX [facility] POC [address] [place] [address] * Glucose, POCT (08/07/2023 10:55 AM CDT) Glucose, POCT, B 99 70 - 140 mg/dL 08/07/2023 10:56 AM CDT PCS Blood 08/07/2023 10:5 5 AM CDT 08/07/2023 10:56 AM CDT us Unknown Provider LAB POCT ORDERABLES-MANUAL Rosmery l Result Performing Organization Address City/[facility] Co de Phone Number POC RST [facility] [address] [place] [address], [facility] PCSM [facility] POC [address] [place] [address] * Transfuse Red Blood Cells : (08/07/2023 10:43 AM CDT) us Yaritza Culver M.D., Ph.D. BLOOD TRANSFUSION ORDER VONNIE Final Result * Glucose, Whole Blood (08/07/2023 10:33 AM CDT) Glucose 94 70 - 140 mg/dL 08/07/2023 10:34 AM CDT [facility] Blood (Blood, Arterial Line) 08/07/2023 10:33 AM CDT 08/07/2023 10:33 AM CDT us Richard Aguayo M.D. LAB BLOOD ADD-ON Final Resu lt Performing Organization Address City/[facility]/ZIP Co de Phone Number [facility] [address] [place] [address], [facility] STMA [facility] [address] [place] [address] * (ABNORMAL) Potassium, Blood (08/07/2023 10:33 AM CDT) Potassium, B 2.7(L) 3.6 - 5.2 mmol/L 08/07/2023 10:35 AM CDT [facility] Blood (Blood, Arterial Line) 08/07/2023 10:33 AM CDT 08/07/2023 10:33 AM CDT us Richard Aguayo M.D. LAB BLOOD NON ADD-ON Final Result Performing Organization Address City/[facility]/ZIP Co de Phone Number [facility] [address] [place] [address] * Sodium, B (08/07/2023 10:33 AM CDT) Sodium, B 137 135 - 145 mmol/L 08/07/2023 10:34 AM CDT [facility] Blood (Blood, Arterial Line) 08/07/2023 10:33 AM CDT 08/07/2023 10:33 AM CDT us Richard Aguayo M.D. LAB BLOOD NON ADD-ON Final Result Performing Organization Address [facility] Co de Phone Number [facility] [address] [place] [address] * (ABNORMAL) Calcium, Ionized (08/07/2023 10:33 AM CDT) Calcium, Ionized, B 3.87(L) 4.65 - 5.30 mg/dL 08/07/2023 10:35 AM CDT [facility] Blood (Blood, Arterial Line) 08/07/2023 10:33 AM CDT 08/07/2023 10:33 AM CDT us Richard Aguayo M.D. LAB BLOOD NON ADD-ON Final Result Performing Organization Address City/[facility] [address]/ZIP Co de Phone Number [facility] [address] [place], [place] [address] [address] [place] [address] * (ABNORMAL) Blood Gas with Coox, Arterial (08/07/2023 10:33 AM CDT) Pathologist [facility] pO2 349(H) 83 - 108 mm Hg [...] M.D. LAB BLOOD NON ADD-ON Final Result [facility] [address] [place] [address], [facility] [address] [place] [address] * (ABNORMAL) ACT (Activated Clotting Time), POCT (08/07/2023 10:27 AM CDT) Pathologist [facility] Activated Clotting Time 602(H) 82 - 152 sec 08/07/2023 10:35 AM CDT PCLX 08/07/2023 10:2 7 AM CDT 08/07/2023 10:35 AM CDT Unknown Provider LAB POCT ORDERABLES - DEVICE Fi nal Result Performing Organization Address [facility] Co de Phone Number POC [facility] [address] [place] [address], [facility] PCLX [facility] POC [address] [place] [address] * (ABNORMAL) Hemoglobin (HGB), POCT (08/07/2023 10:10 AM CDT) Hemoglobin, POCT, B 9.5(L) 11.6 - 15.0 g/dL 08/07/2023 10:17 AM CDT PCSM Blood 08/07/2023 10:1 0 AM CDT 08/07/2023 10:17 AM CDT us Unknown Provider LAB POCT ORDERABLES - DEVICE Fi nal Result Performing Organization Address [facility] [address]/[facility] de Phone Number POC RST [facility] IN[facility]IENT [facility] [address] [place], [place] [address]RUST PCSM [facility] POC [address] [place] [id number] * (VIJI) - INTRAOPERATIVE WITH COLOR AND LIMITED DOPPLER (PROBE NOT PLACED) (08/07/2023 10:09 AM CDT) Ejection Fraction CV EIMS Sinus of Valsalva 32 CV EIMS Sinotubular Junction 22 CV EIMS Mid-Ascending Aorta 37 CV EIMS Anatomical Region Laterality Modality Echocardiography 08/07/2023 6:53 AM CDT Impressions 08/07/2023 1:03 PM CDT PROCEDURE:Transesophageal echocardiogram performed at the request of the primary mechanic field service. Transesophageal echocardiogram completed without complications. PRE-BYPASS:Pre-bypass left [...] PROCEDURE:Transesophageal echocardiogram performed at the request of theprimary mechanic field service. Transesophageal echocardiogram completedwithout complications. PRE-BYPASS:Pre-bypass left ventricular [...] rate 87 BPM). Post-bypass left ventricular ejection [id number]%. No evidence of left circumflex coronary artery [...] DEVICE Fi nal Result Performing Organization Address [facility] [address]/[facility] Co de Phone Number POC [facility] [address] PCLX [facility] [address] [place] [address] * (ABNORMAL) Lactate, B - Intra-op (08/07/2023 8:53 AM CDT) Pathologist [facility] Lactate, B <0.5(L) 0.5 - 2.2 mmol/L 08/07/2023 8:55 AM CDT [facility] Blood (Blood, Venous) 08/07/2023 8:53 AM CDT 08/07/2023 8:53 AM CDT Yaritza Culver M.D., Ph.D. LAB BLOOD NON ADD-ON Fi nal Result Performing Organization Address City/[facility] [address]/ZIP Co de Phone Number [facility] [address] STMA [facility] [address] [place] [address] * Glucose, Whole Blood (08/07/2023 8:53 AM CDT) Glucose 93 70 - 140 mg/dL 08/07/2023 8:54 AM CDT [facility] Blood (Blood, Arterial Line) 08/07/2023 8:53 AM CDT 08/07/2023 8:53 AM CDT us Yaritza Culver M.D., Ph.D. LAB BLOOD ADD-ON Final Result [facility] [address] [place], [place] [id number] [place] [address] [address] [place] [address] * (ABNORMAL) Potassium, Blood (08/07/2023 8:53 AM CDT) Potassium, B 2.9(L) 3.6 - 5.2 mmol/L 08/07/2023 8:54 AM CDT [facility] Blood (Blood, Arterial Line) 08/07/2023 8:53 AM CDT 08/07/2023 8:53 AM CDT us Yaritza Culver M.D., Ph.D. LAB BLOOD NON ADD-ON Fi nal Result Performing Organization Address City/[facility] [address]/ZIP Co de Phone Number [facility] [address] [place], [place] [phone] [place] [address] [address] [place] [address] * Sodium, B (08/07/2023 8:53 AM CDT) Sodium, B 136 135 - 145 mmol/L 08/07/2023 8:54 AM CDT [facility] Blood (Blood, Arterial Line) 08/07/2023 8:53 AM CDT 08/07/2023 8:53 AM CDT us Yaritza Culver M.D., Ph.D. LAB BLOOD NON ADD-ON Fi nal Result [facility] [address] [place], [place] [phone] [place] [address] [address] [place] [address] * (ABNORMAL) Calcium, Ionized (08/07/2023 8:53 AM CDT) Calcium, Ionized, B 4.38(L) 4.65 - 5.30 mg/dL 08/07/2023 8:54 AM CDT [facility] Blood (Blood, Arterial Line) 08/07/2023 8:53 AM CDT 08/07/2023 8:53 AM CDT Yaritza Culver M.D., Ph.D. LAB BLOOD NON ADD-ON Fi nal Result [facility] [address] [place] [address], [facility] [address] [place] [address] * (ABNORMAL) Blood Gas with Coox, Arterial [...] ADD-ON Fi nal Result Performing Organization Address [facility] [address] [facility] Co de Phone Number [facility] [address] [place] [address], [facility] STMA [facility] [address] [place] [address] * ACT (Activated Clotting Time), POCT (08/07/2023 8:50 AM CDT) Activated Clotting Time 143 82 - 152 sec 08/07/2023 8:52 AM CDT PCLX 08/07/2023 8:50 AM CDT 08/07/2023 8:52 AM CDT us Unknown Provider LAB POCT ORDERABLES - DEVICE Fi nal Result Performing Organization Address [facility] de Phone Number POC [facility] [address] [place] [address], [facility] PCLX [facility] POC [address] [place] [address] documented in this encounter Visit Diagnoses Diagnosis Repair Mitral Valve Status Post- Primary Anemia Posthemorrhagic Acute (Blood Loss Anemia) Decline Functional Status [R53.81] Regurgitation Mitral Alcohol Mild Use Disorder (Abuse) Uncomplicated Anemia Of Chronic Disease Atrial Fibrillation Longstanding Persistent (HCC) Cardiomegaly Chronic Systolic (Congestive) Heart Failure (HCC) Regurgitation Mitral Stenosis Spinal documented in this encounter Admitting [...] for 72 hours. Hold for loose stool. BUPivacaine 0.25 % (2.5 mg/mL) injection (MARCAINE) As needed, Starting on Mon08/07/23 at 1218, Intra-Op Given 08/07/2023 1:13 PM CDT 25 mL Given 08/07/2023 12:18 PM CDT 30 mL buPROPion XL 24 hr tablet 150 mg [...] Given 08/10/2023 10:07 AM CDT 12.5 mg doxycycline 100 mg in NaCl 0.9% 30 mL (CV SURG) topical, Once in surgery, OR use only, Starting on Mon08/07/23 at 0650, For 1 dose, Intra-Op Given 08/07/2023 12:34 PM CDT 30 mL furosemide injection 20 mg (LASIX) 20 mg, [...] 1800 0621 (Given - Provider: Marija Goyal RSofia.)1100 (Given - Provider: Lakesha Vance RHomeroN.)1704 (Given - Provider: Lakesha Vance R.N.)2337 (Given [...] bedtime, First dose on Mon08/08/23 at 2100 2006 (Given - Provider: Marija Goyal R.N.) 2218 (Given - Provider: Darcy Oropeza R.N.) [...] Mon08/10/23 at 0945 1007 (Given - Provider: Blessing Bhagat R.N.)1808 (Given - Provider: Darcy Oropeza R.N.) 0904 (Given - Provider: Lakesha Vance R.N.) carvediloL tablet 3.125 mg (COREG) (CANCELED) 3.125 mg, oral, 2 times daily with meals, First dose on Mon08/09/23 at 1030 1051 (Given - Provider: Lakesha Vance RJose)1625 (Given - Provider: Kathy MackayNHomero) carvediloL tablet 3.125 mg (COREG) (COMPLETED) 3.125 [...] R.N.)2226 (New Bag - Provider: Marija Goyal RHomeroNHomero) 0626 (New Bag - Provider: Marija Goyal [...] R.N.) 0918 (Given - Provider: Blessing Bhagat RHomeroN.)1807 (Given - Provider: Darcy Oropeza RHomeroNHomero) 0913 (Given - Provider: Lakesha Vance R.N.) lisinopriL tablet 2.5 mg (PRINIVIL,ZESTRIL) (CANCELED) 2.5 mg, oral, Daily, First dose on Mon08/10/23 at 0900 0916 (Given - Provider: Blessing Bhagat RHomeroN.) lisinopriL tablet 5 mg (PRINIVIL,ZESTRIL) 5 mg, [...] R.N. - Reason: Order parameters not met) 09 (Not Given - Provider: Blessing Bhagat R.N. - Reason: Patient/family refused)2214 (Not Given - Provider: Darcy Oropeza R.N. - Reason: Order parameters not met) 0913 [...] Vance R.N.)1315 (Rate/Dose Verify - Provider: Lakesha S Rajiv, R.N.)1500 (Stopped - Provider: Lakesha Vance R.N.) [...] Goyal R.N.)1624 (Given - Provider: Lakesha Vance RJose)2338 (Given - Provider: Marija Goyal R.N.) 0917 (See Alternative - Provider: Blessing Bhagat R.N.)1423 (Given - Provider: Darcy Oropeza R.N.) oxyCODONE IR tablet 5 mg (ROXICODONE)(Linked Group 4) 5 mg, oral, Every 4 hours PRN, moderate pain or score 4-6 of 10, Starting on Mon08/07/23 at 1400 0309 (See Alternative - Provider: Marija Goyal R.N.)1624 (See Alternative - Provider: Lakesha Vance R.N.)2338 (See Alternative - Provider: Marija Goyal R.N.) [...] documented as of this encounter Care Teams Fuel Buyer Relationship Specialty Start Date End Date Elsewhere, Pcp PCP - General Internal Medicine 05/10/22 documented as of this encounter
--- OUTSIDE RECORDS SUMMARY | 2024-05-21 14:07 | XMS_ITS | Encounter Summary ---
Author Organization [facility] Address [address] [place] [address] Care Team Providers Care Maternal Child Nurse Name Role Phone Elsewhere, Pcp Primary Care Provider Unavailabl e Encounter Details Date Type Department Care Team (Late st Contact Info) Description 08/04/2023 8:45 AM CDT - 08/04/2023 10:00 AM CDT Surgery Division of Cardiovascular Diseases in [place], [place] [address] [place] [phone] Rosa Justice M.D. [address] [place] [phone] CORONARY ANGIOGRAPHY Social History Tobacco Use Types Packs/Day Years [...] How often do you attend chur or mosque services? More than 4 times per year [...] Date Recorded PHQ-2 Score 0 08/03/2023 [facility] [place] [facility] - Occupational Stress [...] place to sleep or slept in a prison (including now)? No 08/15/2022 Depression Answer Date [...] Sex Assigned at Female 05/11/2022 7:48 AM LOFT PATTERNMAKER Legal Sex Female 9:30 PM LOFT PATTERNMAKER Gender Identity Female 05/11/2022 7:48 AM LOFT PATTERNMAKER Sexual Orientation Straight 05/11/2022 7: 48 AM LOFT PATTERNMAKER documented as of this encounter Last Filed Vital Signs Vital Sign Reading Time Taken Comments Blood Pressure 159/93 08/04/2023 10:00 AM CDT Pulse 74 08/04/2023 10:00 AM CDT Temperature 36.8 C (98.2 F) 08/04/2023 8:11 AM CDT Respiratory Rate 10 08/04/2023 9:08 AM CDT Oxygen Saturation 98% 08/04/2023 10: 00 AM CDT Inhaled Oxygen Concentration - - Weight 62.1 kg (136 lb 14.5 oz) 08/04/2023 8:11 AM CDT Height 159.4 cm (5' 2.76) 08/04/2023 8:11 AM CD T Body Mass Index 24.44 08/04/2023 8:11 AM CDT documented in this encounter Discharge Instructions * Attachments The following attachments cannot be sent through Care Everywhere. * Care Following Your Catheter Procedure (Latvian) documented in this encounter Medications at Time [...] 28 days. 42 tablet 08/11/2023 11/03/19 24 furosemide (LASIX) 20 mg tablet Take 20 mg by mouth daily. 10/05/2022 08/11/19 24 furosemide (LASIX) 20 mg tablet Take 1 tablet (20 mg total) by mouth 2 (two) times a day for 7 days, THEN 1 tablet (20 mg total) daily for 14 days. Continuation per discretion of PCP.. 28 tablet 08/11/2023 08/11/19 24 lisinopriL (PRINIVIL,ZESTR IL) 5 mg tablet Take 5 mg by mouth 2 (two) times a day. 04/25/2022 08/11/19 24 lisinopriL (PRINIVIL,ZESTR IL) 5 mg tablet Take 1 tablet (5 mg total) by mouth daily. 30 tablet 08/11/2023 08/11/19 24 lisinopriL (PRINIVIL,ZESTR IL) 5 mg tablet Take 1 tablet (5 mg total) by mouth 2 (two) times a day. 30 tablet 08/11/2023 08/11/19 24 mupirocin (BACTROBAN) 2 % ointment Apply a pea sized amount to each nostril the night before and morning of surgery 22 g 08/03/2023 10:57 AM CDT 08/03/2023 08/11/19 24 omega-3 fatty acids-fish oil 300-1,000 mg per capsule Take 2 g by mouth daily. 11/01/19 24 oxyCODONE (ROXICODONE) 5 mg immediate release tabletIndicatio ns:Acute Pain Take 1 tablet (5 mg total) by mouth every 4 (four) hours as needed for moderate pain or score 4-6 of 10 Indication: Acute Pain. 5 tablet 08/11/2023 01/05/20 24 potassium chloride (K-TAB) 20 mEq CR tablet Take 1 tablet (20 mEq total) by mouth daily with breakfast for 7 days. Do not crush or chew. 7 tablet 08/11/2023 08/11/19 24 propafenone (RYTHMOL) 150 mg tablet Take 150 mg by mouth every 8 (eight) hours. 08/11/19 24 sennosides-docu sate sodium (SENOKOT-S) 8.6-50 mg per tablet Take 2 tablets by mouth at bedtime as needed for constipation. 08/11/2023 11/01/19 24 triamcinolone (KENALOG) 0.1 % ointment Apply 1 Application topically as needed for irritation (bump on the back). 12/28/2020 11/01/19 24 documented as of this encounter Plan of Treatment Upcoming Encounters Date Type Department Care Team (Latest Contact Info) Description 05/29/2024 12:15 PM LOFT PATTERNMAKER Clinical Communication Virtual Review in [place], [place] [address] [place] [phone] 05/31/2024 11:00 AM LOFT PATTERNMAKER Appointment Department of Laboratory Medicine and Pathology, [facility], in [place], [place] [address] [place] [phone] Patricia Parker APRN, C.N.P., D.N.P. [address] [place] [phone] 05/31/2024 2:00 PM LOFT PATTERNMAKER Comprehensive Visit Preoperative Evaluation Center in [place], [place] [address] [place] [phone] Arianna Jeffries M.D. [address] [place] [phone] 05/31/2024 2:45 PM LOFT PATTERNMAKER Comprehensive Visit Preoperative Evaluation Center in [place], [place] [address] [place] [phone] Chris Moreno, UTILITY SYSTEMS REPAIRER OPERATOR, C.N.P., M.S. [address] [place] [phone] 06/03/2024 8:15 AM LOFT PATTERNMAKER Hospital Encounter Post Anesthesia Care Unit in [place], [place] [address] [place] [phone] Tahir Moore M.D. [address] [place] [phone] 06/03/2024 8:15 AM LOFT PATTERNMAKER - 06/03/2024 2:12 PM LOFT PATTERNMAKER Surgery [facility] [address] [place] [phone] Tahir Moore M.D. [address] [place] [phone] C1-2 fusion 07/02/2024 11:00 AM LOFT PATTERNMAKER Procedure visit Division of Pain Medicine in [place], [place] [address] [place] [phone] Adam Barlow M.D. 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 PROCEDURE TYPES 1. CORONARY ANGIOGRAPHY FINAL DIAGNOSIS 1. Mild coronary artery atherosclerosis PRE-PROCEDURE DIAGNOSIS 1. Regurgitation Mitral 2. Preoperative Examination Cardiovascular CORONARY DIAGNOSTIC SUMMARY Coronary artery dominance is right. Normal right coronary. Normal left main coronary. Normal circumflex coronary. The proximal left anterior descending artery is 20% obstructed by a discrete lesion. RADIATION DOSE DATA Procedure cumulative skin dose (mGy): 94.30 Procedure cumulative dose area product (Gy-cm2): 5.61 Fluoro Time (Min): 4.01 CONTRAST DOSE DATA iohexoL 350 mg iodine/mL solution (OMNIPAQUE): 80mL For the complete report, see the Order-Level Documents. Procedure Note Vinh, Rosa Yanez M.D. - 08/04/2023 For the complete report, see the Order-Level Documents. PROCEDURE TYPES 1. CORONARY ANGIOGRAPHY FINAL DIAGNOSIS 1. Mild coronary artery atherosclerosis PRE-PROCEDURE DIAGNOSIS 1. Regurgitation Mitral 2. Preoperative Examination Cardiovascular CORONARY DIAGNOSTIC SUMMARY Coronary artery dominance is right. Normal right coronary. Normal leftmain coronary. Normal circumflex coronary. The proximal left anterior descending artery is 20% obstructed by adiscrete lesion. RADIATION DOSE DATA Procedure cumulative skin dose (mGy): 94.30 Procedure cumulative dose area product (Gy-cm2): 5.61 Fluoro Time (Min): 4.01 CONTRAST DOSE DATA iohexoL 350 mg iodine/mL solution (OMNIPAQUE): 80mL For the complete report, see the Order-Level Documents. us Cortney Wells APRN, C.N.P., D.N.P. CV CARDIAC CATH PROCEDURES Final Result documented in this encounter Visit Diagnoses Diagnosis Regurgitation Mitral Preoperative Examination Cardiovascular Stenosis Spinal documented in this encounter Admitting Diagnoses Diagnosis Regurgitation Mitral Preoperative Examination Cardiovascular documented in this encounter Administered Medications Inactive Administered Medications - up to 3 most recent administrations Medication Order MAR Action Action Date Dose Rate Site aspirin chewable tablet 324 mg 324 mg, oral, Once, On Mon08/04/23 at 0830, For 1 dose, Preprocedure (CV) Given 08/04/2023 8:05 AM CDT 324 mg fentaNYL injection (SUBLIMAZE) Code/trauma/sedation medication, Starting on Mon08/04/23 at 0845, Intraprocedure (CV) Given 08/04/2023 9:03 AM CDT 25 mcg Given 08/04/2023 8:49 AM CDT 25 mcg Given 08/04/2023 8:45 AM CDT 50 mcg fentaNYL injection 25 mcg (SUBLIMAZE) 25 mcg, intravenous, Every 2 min PRN, sedation, Administer over 1 minute immediately prior to the procedure. May repeat every 2 minutes to a maximum of 200 mcg, until pain score of 3 or less, or until the patient meets the pain comfort goal. or RASS 0 to -2. Do not give if respiratory rate is less than 8 breaths/minute, Starting on Mon08/04/23 at 0844, Intraprocedure (CV), Subsequent doses fentaNYL injection 25 mcg (SUBLIMAZE) 25 mcg, intravenous, Once as needed, sedation, Starting on Mon08/04/23 at 0844, For 1 dose, Intraprocedure (CV), Initial dose flumazeniL injection 0.2 mg (ROMAZICON) 0.2 mg, intravenous, Once as needed, reversal, Starting on Mon08/04/23 at 0844, For 1 dose, Intraprocedure (CV), Administer once if patient has a RASS score of -4, -5 and has a respiratory rate less than 8 breaths/minute. heparin (porcine) 1,000 unit/mL injection Code/trauma/sedation medication, Starting on Mon08/04/23 at 0849, Intraprocedure (CV) Given 08/04/2023 8:49 AM CDT 1,500 Units iohexoL 350 mg iodine/mL solution (OMNIPAQUE) Code/trauma/sedation medication, Starting on Mon08/04/23 at 0920, Intraprocedure (CV) Given 08/04/2023 9:20 AM CDT 80 mL lidocaine 10 mg/mL (1 %) injection (XYLOCAINE) Code/trauma/sedation medication, Starting on Mon08/04/23 at 0843, Intraprocedure (CV) Given 08/04/2023 8:45 AM CDT 10 mL Right Groin midazolam (PF) injection (VERSED) Code/trauma/sedation medication, Starting on Mon08/04/23 at 0845, Intraprocedure (CV) Given 08/04/2023 9:05 AM CDT 0.5 mg Given 08/04/2023 8:54 AM CDT 0.5 mg Given 08/04/2023 8:47 AM CDT 0.5 mg midazolam (PF) injection 0.25 mg (VERSED) 0.25 mg, intravenous, Every 2 min PRN, sedation, RASS -2, Starting on Mon08/04/23 at 0844, Intraprocedure (CV), May repeat every 2 minutes to a maximum of 5 mg. Do not give if respiratory rate is less than 8 breaths/minute. midazolam (PF) injection 0.5 mg (VERSED) 0.5 mg, intravenous, Once as needed, sedation, Starting on Mon08/04/23 at 0844, For 1 dose, Intraprocedure (CV) midazolam (PF) injection 0.5 mg (VERSED) 0.5 mg, intravenous, Every 2 min PRN, sedation, RASS -1, Starting on Mon08/04/23 at 0844, Intraprocedure (CV), May repeat every 2 minutes for a maximum of 5 mg. Do not give if respiratory rate is less than 8 breaths/minute. midazolam (PF) injection 1 mg (VERSED) 1 mg, intravenous, Every 2 min PRN, sedation, RASS 0, Starting on Mon08/04/23 at 0844, Intraprocedure (CV), May repeat every 2 minutes for a maximum of 5 mg. Do not give if respiratory rate is less than 8 breaths/minute. NaCl 0.9% infusion 20 mL/hr, intravenous, Once as needed, to keep vein open, Starting on Mon08/04/23 at 0844, For 1 dose, Intraprocedure (CV) NaCl 0.9% infusion 3.5 mL/kg/hr 62.1 kg Dosing weight (217.35 mL/hr, rounded to 217 mL/hr), intravenous, Once, On Mon08/04/23 at 0845, For 1 dose, Preprocedure (CV), Administer as soon as possible. Limit total pre-procedure fluid to 1000 mL. New Bag 08/04/2023 8:26 AM CDT 3.5 mL/kg/hr 217 mL/hr naloxone injection 0.2 mg (NARCAN) 0.2 mg, intravenous, Once as needed, respiratory depression, Starting on Mon08/04/23 at 0844, For 1 dose, Intraprocedure (CV), Administer once if patient has a RASS score of -4, -5 and has a respiratory rate less than 8 breaths/minute. nitroglycerin SL tablet (NITROSTAT) Code/trauma/sedation medication, Starting on Mon08/04/23 at 0845, Intraprocedure (CV) Given 08/04/2023 8:45 AM CDT 0.4 mg sodium chloride 0.9 % injection 10 mL 10 mL, intravenous, As needed, line care, Starting on Mon08/04/23 at 0844, Intraprocedure (CV), Peripheral Intravenous Catheter and Rapid Infusion Catheter, prior to blood sampling, post blood transfusion or post blood sampling sodium chloride 0.9 % injection 10 mL 10 mL, intravenous, As needed, line care, Starting on Mon08/04/23 at 0824, Preprocedure (CV), Peripheral Intravenous Catheter and Rapid Infusion Catheter, prior to blood sampling, post blood transfusion or post blood sampling sodium chloride 0.9 % injection 3 mL 3 mL, intravenous, As needed, line care, Starting on Mon08/04/23 at 0844, Intraprocedure (CV), Prior to and following infusion and between multiple consecutive infusions: sodium chloride 0.9 % injection sodium chloride 0.9 % injection 3 mL 3 mL, intravenous, Every 12 hours scheduled, First dose on Mon08/04/23 at 0900, Intraprocedure (CV), Peripheral Intravenous Catheter and Rapid Infusion Catheter, when no infusion to maintain patency sodium chloride 0.9 % injection 3 mL 3 mL, intravenous, As needed, line care, Starting on Mon08/04/23 at 0824, Preprocedure (CV), Prior to and following infusion and between multiple consecutive infusions: sodium chloride 0.9 % injection sodium chloride 0.9 % injection 3 mL 3 mL, intravenous, Every 12 hours scheduled, First dose on Mon08/04/23 at 0900, Preprocedure (CV), Peripheral Intravenous Catheter and Rapid Infusion Catheter, when no infusion to maintain patency documented in this encounter Active and Recently Administered Medications Times are shown in CDT. Scheduled Medication Order 08/02/2023 08/03/2023 08/04/2023 aspirin chewable tablet 324 mg (COMPLETED) 324 mg, oral, Once, On Mon08/04/23 at 0830, For 1 dose, Preprocedure (CV) 0805 (Given - Provid er: Lauro Brock R.N., [facility]) NaCl 0.9% infusion (COMPLETED) 3.5 mL/kg/hr 62.1 kg Dosing weight (217.35 mL/hr, rounded to 217 mL/hr), intravenous, Once, On Mon08/04/23 at 0845, For 1 dose, Preprocedure (CV), Administer as soon as possible. Limit total pre-procedure fluid to 1000 mL. 0826 (New Bag - Prov ider: Lauro Brock R.N., [facility]) sodium chloride 0.9 % injection 3 mL 3 mL, intravenous, Every 12 hours scheduled, First dose on Mon08/04/23 at 0900, Intraprocedure (CV), Peripheral Intravenous Catheter and Rapid Infusion Catheter, when no infusion to maintain patency 0900 (Due) sodium chloride 0.9 % injection 3 mL 3 mL, intravenous, Every 12 hours scheduled, First dose on Mon08/04/23 at 0900, Preprocedure (CV), Peripheral Intravenous Catheter and Rapid Infusion Catheter, when no infusion to maintain patency 0900 (Due) PRN Medication Order 08/02/2023 08/03/2023 08/04/2023 fentaNYL injection (SUBLIMAZE) (CANCELED) Code/trauma/sedation medication, Starting on Mon08/04/23 at 0845, Intraprocedure (CV) 0845 (Given - Provid er: Adam Felipe R.N.)0849 (Given - Provider: Adam Felipe R.N.)0903 (Given - Provider: Adam Felipe R.N.) fentaNYL injection 25 mcg (SUBLIMAZE) 25 mcg, intravenous, Every 2 min PRN, sedation, Administer over 1 minute immediately prior to the procedure. May repeat every 2 minutes to a maximum of 200 mcg, until pain score of 3 or less, or until the patient meets the pain comfort goal. or RASS 0 to -2. Do not give if respiratory rate is less than 8 breaths/minute, Starting on Mon08/04/23 at 0844, Intraprocedure (CV), Subsequent doses fentaNYL injection 25 mcg (SUBLIMAZE) 25 mcg, intravenous, Once as needed, sedation, Starting on Mon08/04/23 at 0844, For 1 dose, Intraprocedure (CV), Initial dose flumazeniL injection 0.2 mg (ROMAZICON) 0.2 mg, intravenous, Once as needed, reversal, Starting on Mon08/04/23 at 0844, For 1 dose, Intraprocedure (CV), Administer once if patient has a RASS score of -4, -5 and has a respiratory rate less than 8 breaths/minute. heparin (porcine) 1,000 unit/mL injection (CANCELED) Code/trauma/sedation medication, Starting on Mon08/04/23 at 0849, Intraprocedure (CV) 0849 (Given - Provid er: Adam Felipe R.N.) iohexoL 350 mg iodine/mL solution (OMNIPAQUE) (CANCELED) Code/trauma/sedation medication, Starting on Mon08/04/23 at 0920, Intraprocedure (CV) 0920 (Given - Provid er: Rosa Justice M.D.) lidocaine 10 mg/mL (1 %) injection (XYLOCAINE) (CANCELED) Code/trauma/sedation medication, Starting on Mon08/04/23 at 0843, Intraprocedure (CV) 0845 (Given - Provid er: Zak Brand M.D.) midazolam (PF) injection (VERSED) (CANCELED) Code/trauma/sedation medication, Starting on Mon08/04/23 at 0845, Intraprocedure (CV) 0845 (Given - Provid er: Adam Felipe R.N.)0847 (Given - Provider: Adam Felipe R.N.)0854 (Given - Provider: Adam Felipe R.N.)0905 (Given - Provider: Adam Felipe R.N.) midazolam (PF) injection 0.25 mg (VERSED) 0.25 mg, intravenous, Every 2 min PRN, sedation, RASS -2, Starting on Mon08/04/23 at 0844, Intraprocedure (CV), May repeat every 2 minutes to a maximum of 5 mg. Do not give if respiratory rate is less than 8 breaths/minute. midazolam (PF) injection 0.5 mg (VERSED) 0.5 mg, intravenous, Once as needed, sedation, Starting on Mon08/04/23 at 0844, For 1 dose, Intraprocedure (CV) midazolam (PF) injection 0.5 mg (VERSED) 0.5 mg, intravenous, Every 2 min PRN, sedation, RASS -1, Starting on Mon08/04/23 at 0844, Intraprocedure (CV), May repeat every 2 minutes for a maximum of 5 mg. Do not give if respiratory rate is less than 8 breaths/minute. midazolam (PF) injection 1 mg (VERSED) 1 mg, intravenous, Every 2 min PRN, sedation, RASS 0, Starting on Mon08/04/23 at 0844, Intraprocedure (CV), May repeat every 2 minutes for a maximum of 5 mg. Do not give if respiratory rate is less than 8 breaths/minute. NaCl 0.9% infusion 20 mL/hr, intravenous, Once as needed, to keep vein open, Starting on Mon08/04/23 at 0844, For 1 dose, Intraprocedure (CV) naloxone injection 0.2 mg (NARCAN) 0.2 mg, intravenous, Once as needed, respiratory depression, Starting on Mon08/04/23 at 0844, For 1 dose, Intraprocedure (CV), Administer once if patient has a RASS score of -4, -5 and has a respiratory rate less than 8 breaths/minute. nitroglycerin SL tablet (NITROSTAT) (CANCELED) Code/trauma/sedation medication, Starting on Mon08/04/23 at 0845, Intraprocedure (CV) 0845 (Given - Provid er: Adam J Pick, R.N.) sodium chloride 0.9 % injection 10 mL 10 mL, intravenous, As needed, line care, Starting on Mon08/04/23 at 0844, Intraprocedure (CV), Peripheral Intravenous Catheter and Rapid Infusion Catheter, prior to blood sampling, post blood transfusion or post blood sampling sodium chloride 0.9 % injection 10 mL 10 mL, intravenous, As needed, line care, Starting on Mon08/04/23 at 0824, Preprocedure (CV), Peripheral Intravenous Catheter and Rapid Infusion Catheter, prior to blood sampling, post blood transfusion or post blood sampling sodium chloride 0.9 % injection 3 mL 3 mL, intravenous, As needed, line care, Starting on Mon08/04/23 at 0844, Intraprocedure (CV), Prior to and following infusion and between multiple consecutive infusions: sodium chloride 0.9 % injection sodium chloride 0.9 % injection 3 mL 3 mL, intravenous, As needed, line care, Starting on Mon08/04/23 at 0824, Preprocedure (CV), Prior to and following infusion and between multiple consecutive infusions: sodium chloride 0.9 % injection documented in this encounter Additional Health Concerns Assessment Noted Time PHQ-9 Depression Total Score: 2 08/03/19 24 9:15 AM CDT documented as of this encounter Care Teams Maternal Child Nurse Relationship Specialty Start Date End Date Elsewhere, Pcp PCP - General Internal Medicine 05/10/22 documented as of this encounter
--- OUTSIDE RECORDS SUMMARY | 2024-05-21 14:07 | XMS_ITS | Encounter Summary ---
Author Organization [facility] Address [address] [place] [address] Care Team Providers Care Business Management Consultant Name Role Phone Elsewhere, Pcp Primary Care Provider Unavailabl e Reason for Visit * Appointment Request (Routine) - Closed Specialty Diagnoses / Procedures Referred By Chanel segovia Referred To Contact Cardiovascular Surgery Referral ID Status Reason Start Date Expiration Date Visits Re quested Visits Authorized [id number] Closed 06/01/2023 05/31/2024 1 1 Encounter Details Date Type Department Care Team (Latest Contact Info) Description 08/04/2023 4:00 PM CDT Comprehensive Visit Department of Cardiovascular Surgery in [place], [place] [address] [place] [address] Richard Aguayo M.D. [address] [place] [address] Regurgitation Mitral (Primary Dx) Social History Tobacco [...] often do you attend chur ch or christianity services? More than 4 times per year 08/15/2022 Do you belong to any clubs o r organizations such as adventism groups, unions, fraternal or athletic groups, or [...] Answer Date Recorded PHQ-2 Score 0 08/03/2023 [facility] - Occupational [...] place to sleep or slept in a snf (including now)? No 08/15/2022 Depression Answer Date [...] Sex Assigned at Female 05/11/2022 7:48 AM BIAZZI NITRATOR OPERATOR Legal Sex Female 9:30 PM BIAZZI NITRATOR OPERATOR Gender Identity Female 05/11/2022 7:48 AM BIAZZI NITRATOR OPERATOR Sexual Orientation Straight 05/11/2022 7: 48 AM BIAZZI NITRATOR OPERATOR documented as of this encounter Last Filed Vital Signs Vital Sign Reading Time Taken Comments Blood Pressure 147/82 08/04/2023 4:08 PM CDT Pulse 85 08/04/2023 4:08 PM CDT Temperature - - Respiratory Rate - - Oxygen Saturation 99% 08/04/2023 4:08 PM CDT Inhaled Oxygen Concentration - - Weight 62.1 kg (136 lb 14.5 oz) 08/04/2023 4:08 PM CDT Height 159.4 cm (5' 2.76) 08/04/2023 4:08 PM CD T Body Mass Index 24.44 08/04/2023 4:08 PM CDT documented in this encounter Progress Notes * Richard Aguayo M.D. - 08/04/2023 4:00 PM CDT This is a follow-up visit. The patient had coronary angiogram performed today and this showed rightcoronary dominance with no obstructive disease. We reviewed the findings of her transthoracic echo here at [facility] and this quantified at least moderate mitral valve regurgitation with the caveats that it may likely be underestimated. Her transesophageal echo from February 2023 performed at home was more suggestive of severe mitral valve regurgitation. She does have severe left atrial enlargement andmild left ventricular dilatation. She has had a long recovery from her spinal surgery in August of last year but does endorse some shortness of breath with exertional activities. We are planning for robotic assisted mitral valve repair on Monday. 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 For this reason, we will plan to use the Nimo clamp and tac vent. I answered several excellent questions from the patient and her spouse. They are eager to proceed on Monday. documented in this encounter Plan of Treatment Upcoming Encounters Date Type Department Care Team (Latest Contact Info) Description 05/29/2024 12:15 PM BIAZZI NITRATOR OPERATOR Clinical Communication Virtual Review in [place] [address] [place] [phone] 05/31/2024 11:00 AM BIAZZI NITRATOR OPERATOR Appointment Department of Laboratory Medicine and Pathology, [facility], in [place], [place] [address] [place] [address] [phone] Patricia Parker APRN, C.N.P., D.N.P. [address] [place] [address] [phone] 05/31/2024 2:00 PM BIAZZI NITRATOR OPERATOR Comprehensive Visit Preoperative Evaluation Center in [place], [place] [address] [place] [address] [phone] Arianna Jeffries M.D. [address] [place] [phone] 05/31/2024 2:45 PM BIAZZI NITRATOR OPERATOR Comprehensive Visit Preoperative Evaluation Center in [place], [place] [address] [place] [address] [phone] Chris Moreno, JOHNSON, C.N.P., M.S. [address] [place] [address] [phone] 06/03/2024 8:15 AM BIAZZI NITRATOR OPERATOR Hospital Encounter Post Anesthesia Care Unit in [place] [phone] [place] [address] [phone] Tahir Moore M.D. [address] [place] [phone] 06/03/2024 8:15 AM BIAZZI NITRATOR OPERATOR - 06/03/2024 2:12 PM BIAZZI NITRATOR OPERATOR Surgery [facility]IN OR [address] [place] [phone] Tahir Moore M.D. [address] [place] [phone] C1-2 fusion 07/02/2024 11:00 AM BIAZZI NITRATOR OPERATOR Procedure visit Division of Pain Medicine in [place], [place] [address] [place] [phone] Adam Barlow M.D. [address] [place] [address] Scheduled Procedures Name Priority Associated Diagnoses Date/Ti me 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 06/03/2024 8:15 AM BIAZZI NITRATOR OPERATOR documented as of this encounter Visit Diagnoses Diagnosis Regurgitation Mitral- Primary Stenosis Spinal documented in this encounter Additional Health Concerns Assessment Noted Time PHQ-9 Depression Total Score: 2 08/03/19 9:15 AM CDT documented as of this encounter Care Teams Business Management Consultant Relationship Specialty Start Date End Date Elsewhere, Pcp PCP - General Internal Medicine 05/10/22 documented as of this encounter
--- OUTSIDE RECORDS SUMMARY | 2024-05-21 14:08 | XMS_ITS | Encounter Summary ---
Author Organization [facility] Address [address] [place] [address] Care Team Providers Care Bottom Filler Name Role Phone Elsewhere, Pcp Primary Care Provider Unavailabl e Encounter Details Date Type Department Care Team (Late st Contact Info) Description 07/07/2023 Clinical Communication Preoperative Evaluation Center in [place], [place] [address] [place] [address] Liz Lewis APRN, C.N.P., M.S.N. [address] [place] [address] Social History Tobacco Use Types Packs/Day Years [...] often do you attend chur ch or rastafari services? More than 4 times per year 08/15/2022 Do you belong to any clubs o r organizations such as yarsanism groups, unions, fraternal or athletic groups, or [...] and heating? Not hard at all 08/15/2022 [facility]at ional Health - Occupational [...] a long term (including now)? No 08/15/2022 Nutrition Answer Date Recorded On average, how [...] Sex Assigned at Female 05/11/2022 7:48 AM FORMATION TESTING OPERATOR Legal Sex Female 9:30 PM FORMATION TESTING OPERATOR Gender Identity Female 05/11/2022 7:48 AM FORMATION TESTING OPERATOR Sexual Orientation Straight 05/11/2022 7: 48 AM FORMATION TESTING OPERATOR documented as of this encounter Patient Instructions * Attachments The following attachments cannot be sent through Care Everywhere. * Instructions To Get Ready for Your Surgery or Procedure: [facility] (Romanian) documented in this encounter Plan of Treatment Upcoming Encounters Date Type Department Care Team (Latest Contact Info) Description 05/29/2024 12:15 PM FORMATION TESTING OPERATOR Clinical Communication Virtual Review in [place], [place] 200 [place] [phone] 05/31/2024 11:00 AM FORMATION TESTING OPERATOR Appointment Department of Laboratory Medicine and Pathology, [facility], in [place], [place] [address] [place] [phone] Patricia Parker APRN, C.N.P., D.N.P. [address] [place] [phone] 05/31/2024 2:00 PM FORMATION TESTING OPERATOR Comprehensive Visit Preoperative Evaluation Center in [place], [place] [address] [place] [phone] Arianna Jeffries M.D. [address] [place] [phone] 05/31/2024 2:45 PM FORMATION TESTING OPERATOR Comprehensive Visit Preoperative Evaluation Center in [place], [place] [address] [place] [phone] Chris Moreno APRN, C.N.P., M.S. [address] [place] [phone] 06/03/2024 8:15 AM FORMATION TESTING OPERATOR Hospital Encounter Post Anesthesia Care Unit in [place] [id number] [place] [phone] Tahir Moore M.D. [address] [place] [phone] 06/03/2024 8:15 AM FORMATION TESTING OPERATOR - 06/03/2024 2:12 PM FORMATION TESTING OPERATOR Surgery [facility] OR [address] [place] [phone] Tahir Moore M.D. [address] [place] [phone] C1-2 fusion 07/02/2024 11:00 AM FORMATION TESTING OPERATOR Procedure visit Division of Pain Medicine in [place], [place] [address] [place] [phone] Adam Barlow M.D. 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
--- OUTSIDE RECORDS SUMMARY | 2024-05-21 14:08 | XMS_ITS | Encounter Summary ---
Author Organization [facility] Address [address] [place] [address] Care Team Providers Care Supervisor Motor Vehicle Assembly Name Role Phone Elsewhere, Pcp Primary Care Provider Unavailabl e Reason for Visit * Episode Based Medications (Routine) - Closed Specialty Diagnoses / Procedures Referred By Contchad t Referred To Contact Diagnoses Anemia Of Chronic Disease Atrial Fibrillation Paroxysmal (HCC) Atypical Atrial Flutter (HCC) Cardiomegaly Cardiomyopathy Stress Induced Regurgitation Mitral Patricia Parker APRN, C.N.P., D.N.P. [address] [place] [address] Phone: tel: fax: Preoperative Evaluation Center in [place], [place] [address] [place] [address] Phone: tel: fax: Referral ID Status Reason Start Date Expiration Date Visits Re quested Visits Authorized [id number] Closed 08/22/2022 08/21/2024 99 99 Encounter Details Date Type Department Care Team ([facility] st Contact Info) Description 07/14/2023 10:00 AM RAVELER Infusion Department of Infusion Therapy in [place], [place] [address] [place] [address] [phone] Patricia Parker APRN, C.N.P., D.N.P. 200 [place] [phone] Atypical Atrial Flutter (HCC) (Primary Dx); Anemia Of Chronic Disease; Regurgitation Mitral; Atrial Fibrillation Paroxysmal (HCC); Cardiomegaly; Cardiomyopathy Stress Induced; Anemia Social History Tobacco Use Types Packs/Day [...] How often do you attend chur or latter day services? More than 4 [...] and heating? Not hard at all 08/15/2022 [facility] of Occupat ional [...] place to sleep or slept in a fci (including now)? No 08/15/2022 Nutrition Answer Date [...] Sex Assigned at Female 05/11/2022 7:48 AM RAVELER Legal Sex Female 9:30 PM RAVELER Gender Identity Female 05/11/2022 7:48 AM RAVELER Sexual Orientation Straight 05/11/2022 7: 48 AM RAVELER documented as of this encounter Last Filed Vital Signs Vital Sign Reading Time Taken Comments Blood Pressure 119/73 07/14/2023 12:50 PM RAVELER Pulse 80 07/14/2023 12:50 PM RAVELER Temperature 36.7 C (98.1 F) 07/14/2023 10:13 AM RAVELER Respiratory Rate 16 07/14/2023 12:50 PM RAVELER Oxygen Saturation - - Inhaled Oxygen Concentration - - Weight - - Height - - Body Mass Index - - documented in this encounter Plan of Treatment Upcoming Encounters Date Type Department Care Team (Latest Contact Info) Description 05/29/2024 12:15 PM RAVELER Clinical Communication Virtual Review in [place], [place] 200 [place] [address] 05/31/2024 11:00 AM RAVELER Appointment Department of Laboratory Medicine and Pathology, [facility], in [place], [place] [address] [place] [phone] Patricia Parker APRN, C.N.P., D.N.P. [address] [place] [phone] 05/31/2024 2:00 PM RAVELER Comprehensive Visit Preoperative Evaluation Center in [place], [place] [address] [place] [phone] Arianna Jeffries M.D. [address] [place] [address] [phone] 05/31/2024 2:45 PM RAVELER Comprehensive Visit Preoperative Evaluation Center in [place], [place] [address] [place] [address] [phone] Chris Moreno APRN, C.N.P., M.S. [address] [place] [phone] 06/03/2024 8:15 AM RAVELER Hospital Encounter Post Anesthesia Care Unit in [place], [place] [address] [place] [phone] Tahir Moore M.D. [address] [place] [phone] 06/03/2024 8:15 AM RAVELER - 06/03/2024 2:12 PM RAVELER Surgery [facility] OR [address] [place] [address] [phone] Tahir Moore M.D. [address] [place] [address] [phone] C1-2 fusion 07/02/2024 11:00 AM RAVELER Procedure visit Division of Pain Medicine in [place], [place] [address] [place] [address] [phone] Adam Barlow M.D. [address] [place] [address] [phone] Scheduled Procedures Name Priority Associated Diagnoses Date/Ti me 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 06/03/2024 8:15 AM RAVELER documented as of this encounter Visit Diagnoses Diagnosis Atypical Atrial Flutter (HCC)- Primary Anemia Of Chronic Disease Regurgitation Mitral Atrial Fibrillation Paroxysmal (HCC) Cardiomegaly Cardiomyopathy Stress Induced Anemia Stenosis Spinal documented in this encounter Administered Medications Inactive Administered Medications - up to 3 most recent administrations Medication Order MAR Action Action Date Dose Rate Site epoetin unique-epbx injection 40,000 Units (RETACRIT) 40,000 Units, subcutaneous, Once, On Mon07/14/23 at 1015, For 1 dose, Do not give dose if most recent Hgb > 12 g/dL, Indications: reduction of allogeneic blood transfusion in surgeryIndications:re duction of allogeneic blood transfusion in surgery Given 07/14/2023 12:10 PM RAVELER 40,000 Units Right Upper Arm (Back) iron dextran 25 mg of iron in NaCl 0.9% IVPB (INFED) 25 mg of iron, intravenous, at 606 mL/hr, Administer over 5 Minutes, Once, On Mon07/14/23 at 1015, For 1 dose, Administer test dose over 5 minutes. Observation after test dose will be 15 minutes. Do not repeat test dose with future rounds.Indications:An emia Of Chronic Disease New Bag 07/14/2023 10:33 AM RAVELER 25 mg of iron 606 mL/hr iron dextran 975 mg of iron in NaCl 0.9% IVPB (INFED) 975 mg of iron, intravenous, at 120 mL/hr, Administer over 60 Minutes, Once, On Mon07/14/23 at 1200, For 1 doseIndications:Anemi a Of Chronic Disease New Bag 07/14/2023 11:30 AM RAVELER 975 mg of iron 120 mL/hr NaCl 0.9% infusion 20-500 mL/hr, intravenous, As needed, Between Unit of Blood Products, Starting on Mon07/14/23 at 1003, Infuse at the same rate as the blood infusion until tubing cleared. Nurse may reduce rate to 20 mL/hour or as otherwise directed until next blood infusion arrives then discontinue when infusion complete.Indications: Anemia New Bag 07/14/2023 12:36 PM RAVELER 120 mL/hr 120 mL/hr New Bag 07/14/2023 10:41 AM RAVELER 303 mL/hr 303 mL/hr sodium chloride 0.9 % injection 3 mL 3 mL, intra-catheter, As needed, line care, Starting on Mon07/14/23 at 1003, Prior to and following infusion and between multiple consecutive infusions.Indications:Anemia Given 07/14/2023 12:49 PM RAVELER 3 mL Given 07/14/2023 10:43 AM RAVELER 3 mL documented in this encounter Care Teams Supervisor Motor Vehicle Assembly Relationship Specialty Start Date End Date Elsewhere, Pcp PCP - General Internal Medicine 05/10/22 documented as of this encounter
--- OUTSIDE RECORDS SUMMARY | 2024-05-21 14:08 | XMS_ITS | Encounter Summary ---
Author Organization [facility] Address [address] [place] [address] Care Team Providers Care Environmental Protection Geologist Name Role Phone Elsewhere, Pcp Primary Care Provider Unavailabl e Reason for Visit * Reason Onset Date Comments OSM - Outside Materials 07/03/2023 Encounter Details Date Type Department Care Team (Latest Contact Info) Description 07/03/2023 Clinical Communication Department of Cardiovascular Surgery in [place], [place] [address] [place] [phone] Richard Aguayo M.D. [address] [place] [phone] OSM - Outside Materials Social History Tobacco [...] any clubs o r organizations such as mandaeism groups, unions, fraternal or athletic groups, or [...] Answer Date Recorded PHQ-2 Score 0 08/03/2023 [facility] of Occupat ional Health - Occupational Stress [...] Sex Assigned at Female 05/11/2022 7:48 AM OPTION TRADER Legal Sex Female 9:30 PM OPTION TRADER Gender Identity Female 05/11/2022 7:48 AM OPTION TRADER Sexual Orientation Straight 05/11/2022 7: 48 AM OPTION TRADER documented as of this encounter Miscellaneous Notes * Telephone Encounter - Luisa Tavares - 07/03/2023 3:50 PM CST Outside Materials have been scanned into the EHR. Please click the Document Viewer button inside Chart Review to view the OSM. ON TRADER documented in this encounter Plan of Treatment Upcoming Encounters Date Type Department Care Team (Latest Contact Info) Description 05/29/2024 12:15 PM OPTION TRADER Clinical Communication Virtual Review in [place], [place] [address] [place] [phone] 05/31/2024 11:00 AM OPTION TRADER Appointment Department of Laboratory Medicine and Pathology, [facility], in [place], [place] [address] [place] [phone] Patricia Parker APRN, C.N.P., D.N.P. [address] [place] [phone] 05/31/2024 2:00 PM OPTION TRADER Comprehensive Visit Preoperative Evaluation Center in [place], [place] [address] [place] [address] [phone] Arianna Jeffries M.D. [address] [place] [phone] 05/31/2024 2:45 PM OPTION TRADER Comprehensive Visit Preoperative Evaluation Center in [place], [place] [address] [place] [phone] Chris Moreno APRN, C.N.P., M.S. [address] [place] [phone] 06/03/2024 8:15 AM OPTION TRADER Hospital Encounter Post Anesthesia Care Unit in [place], [place] [address] [place] [phone] Tahir Moore M.D. [address] [place] [address] [phone] 06/03/2024 8:15 AM OPTION TRADER - 06/03/2024 2:12 PM OPTION TRADER Surgery [facility] MAIN OR [address] [place] [phone] Tahir Moore M.D. [address] [place] [phone] C1-2 fusion 07/02/2024 11:00 AM OPTION TRADER Procedure visit Division of Pain Medicine in [place], [place] [address] [place] [phone] Adam Barlow M.D. [address] [place] [phone] Scheduled Procedures Name Priority Associated Diagnoses Date/Ti me 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 06/03/2024 8:15 AM OPTION TRADER documented as of this encounter Visit Diagnoses Not on filedocumented in this encounter Care Teams Environmental Protection Geologist Relationship Specialty Start Date End Date Elsewhere, Pcp PCP - General Internal Medicine 05/10/22 documented as of this encounter
--- OUTSIDE RECORDS SUMMARY | 2024-05-21 14:08 | XMS_ITS | Encounter Summary ---
Author Organization [facility] Address [address] [place] [phone] Care Team Providers Care Sorority Mother Name Role Phone Elsewhere, Pcp Primary Care Provider Unavailabl e Reason for Visit * Reason Comments Patient Education * Outpatient (Routine) - Closed Specialty Diagnoses / Procedures Referred By Chanel t Referred To Contact Cardiovascular Disease Cortney Wells APRN, C.N.P., D.N.P. [address] [place] [phone] Phone: tel: fax: [facility] Referral ID Status Reason Start Date Expiration Date Visits Re quested Visits Authorized [id number] Closed 06/05/2023 06/04/2026 1 1 Encounter Details Date Type Department Care Team (Latest Contact Info) Description 08/01/2023 10:00 AM CDT Virtual Visit Department of Cardiovascular Medicine in [place], [place] [address] [place] [phone] Cortney Wells APRN, C.N.P., D.N.P. [address] [place] [phone] Marli Benavides R.N. [address] [place] [address] [phone] Regurgitation Mitral (Primary Dx) Social History Tobacco [...] How often do you attend chur or zoroastrian services? More than 4 times per year 08/15/2022 Do you belong to any clubs o r organizations such as buddhist groups, unions, fraternal or athletic groups, or [...] and heating? Not hard at all 08/15/2022 [facility] [place] of Occupat ional Health - Occupational Stress [...] place to sleep or slept in a residential (including now)? No 08/15/2022 Nutrition Answer Date [...] Sex Assigned at Female 05/11/2022 7:48 AM FOOD EDITOR Legal Sex Female 9:30 PM FOOD EDITOR Gender Identity Female 05/11/2022 7:48 AM FOOD EDITOR Sexual Orientation Straight 05/11/2022 7: 48 AM FOOD EDITOR documented as of this encounter Patient Instructions * Patient Instructions* Marli Benavides R.N. - 08/01/2023 10:00 AM CDT PRE-PROCEDURE EDUCATION PROVIDED VIA TELEPHONE CALL. THE PATIENT WAS NOT PHYSICALLY PRESENT FOR THIS APPOINTMENT Pre-procedure Instructions: Basic information about the scheduled procedure Fasting for 8 hours, 6 hours, and 2 hours prior to report time ---Please refer to page 8 of the pamphlet entitled Preparing For Your Cardiac Catheterization or Heart Rhythm Procedure for details Take all medications as instructed Call the [facility] Service Line ([phone]) the evening before the procedure between the hoursof 7 pm and midnight to learn what time and where to report to the hospital the next day A responsible adult (18 years of age or older) needs to be present the day of procedure including at discharge for transportation home. Plan to stay within 100 miles of [facility] overnight Updated Visitor Policy: Due to the COVID-19 pandemic and increase of RSV infections, visitor restrictions are in place. A maximum of five consistent visitors are permitted to accompany the patient toany outpatient appointments, procedures, and/or the patient's hospital room (NOTE: only two visitors are allowed into the patient's exam/hospital room at one time). Visitors must be at least 5 years old and a responsible adult must accompany all visitors under the age of 16. Visiting hours are 7 amto 9 pm. Please check the [place] Visitor Policy website for the most up to date visitor policy information. Vitamins/Supplements Instructions: Do not take vitamins or supplements the morning of the procedure. documented in this encounter Progress Notes * Marli Benavides R.N. - 08/01/2023 10:00 AM CDT SUBJECTIVE REASON FOR VISIT Pre-procedure education OBJECTIVE Nurse education visit was completed within the Pre-Procedure Clinic (PPC) as ordered by the referring provider for a Cash Applications Analyst readiness review prior to procedure. The visit was conducted via telephone. Procedure to be done: Coronary Angiogram Date of procedure: 08/04/23 KESHIA completed within 30 days of procedure? No; scheduled on 08/03/23 Labs completed within 45 days of procedure? No; scheduled on 08/03/23 ECG completed within designated timeframe of procedure? No; scheduled on 08/03/23 Allergy to contrast dye/iodine? No Medications -- Vitamins/Supplements Instructions: Do not take vitamins or supplements the morning of the procedure. Anticoagulation Plan Patient instructed to take last dose of rivaroxaban (Xarelto) on 07/31/23 and hold further doses until after the procedure. ASSESSMENT / PLAN Information Discussed Reviewed pre-procedure instructions with patient/family including: Basic information about the scheduled procedure. Fasting for 8 hours, 6 hours, and 2 hours prior to report time. Please refer to the ???Instructions To Get Ready for Your Cardiac Catheterization or Heart Rhythm Procedure: [facility] pamphlet for further details. Taking all medications as instructed. Calling the [facility] Service Line ([phone]) the evening before the procedure between the hours of 7:00 pm and midnight to learn what time and where to report to the hospital the next day. Needing a responsible adult (18 years of age or older) to be present the day of procedure includingat discharge for transportation home. Planning to stay within 100 miles of [facility] overnight. Visitor Policy Please check the [place] Visitor Policy website for the most up to date visitor policy information. Disposition/Recommendation: protocol orders and self-care is appropriate at this time, patient encouraged to call back with questions Information/Education: patient/caller able to teach back Caller agreeable to plan of care: yes The following references were used: patient education resources: as documented in the Education Activity, [facility] protocol: Cardiovascular Clinic Pre- Cardiac Invasive Catheterization Procedure Patient Management, and AskMayoExpert: Anticoagulation management (adult) Additional education materials provided: Instructions To Get Ready for Your Cardiac Catheterizationor Heart Rhythm Procedure: [facility] ([id number]) documented in this encounter Plan of Treatment Upcoming Encounters Date Type Department Care Team (Latest Contact Info) Description 05/29/2024 12:15 PM FOOD EDITOR Clinical Communication Virtual Review in [place], [place] 200 [place] [phone] 05/31/2024 11:00 AM FOOD EDITOR Appointment Department of Laboratory Medicine and Pathology, [facility], in [place], [place] [address] [place] [phone] Patricia Parker APRN, C.N.P., D.N.P. [address] [place] [phone] 05/31/2024 2:00 PM FOOD EDITOR Comprehensive Visit Preoperative Evaluation Center in [place], [place] [address] [place] [phone] Arianna Jeffries M.D. [address] [place] [phone] 05/31/2024 2:45 PM FOOD EDITOR Comprehensive Visit Preoperative Evaluation Center in [place], [place] [address] [place] [phone] Chris Moreno APRN, C.N.P., M.S. [address] [place] [phone] 06/03/2024 8:15 AM FOOD EDITOR Hospital Encounter Post Anesthesia Care Unit in [place] [id number] [place] [address] [phone] Tahir Moore M.D. [address] [place] [phone] 06/03/2024 8:15 AM FOOD EDITOR - 06/03/2024 2:12 PM FOOD EDITOR Surgery [facility] MAIN OR [id number] [address] [place] [phone] Tahir Moore M.D. [address] [place] [phone] C1-2 fusion 07/02/2024 11:00 AM FOOD EDITOR Procedure visit Division of Pain Medicine in [place], [place] [address] [place] [phone] Adam Barlow M.D. 200 [place] [phone] Scheduled Procedures Name Priority Associated Diagnoses Date/Ti me 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 06/03/2024 8:15 AM FOOD EDITOR documented as of this encounter Visit Diagnoses Diagnosis Regurgitation Mitral- Primary Stenosis Spinal documented in this encounter Care Teams Sorority Mother Relationship Specialty Start Date End Date Elsewhere, Pcp PCP - General Internal Medicine 05/10/22 documented as of this encounter
--- OUTSIDE RECORDS SUMMARY | 2024-05-21 14:08 | XMS_ITS | Encounter Summary ---
Author Organization [facility] Address [address] [place] [address] Care Team Providers Care Product Development Consultant Name Role Phone Elsewhere, Pcp Primary Care Provider Unavailabl e Reason for Visit * Reason Onset Date Comments Echo Move Up 06/01/2023 Encounter Details Date Type Department Care Team (Latest Contact Info) Description 06/01/2023 Clinical Communication Department of Cardiovascular Surgery in [place], [place] [address] [place] [phone] Richard Aguayo M.D. [address] [place] [phone] Echo Move Up Social History Tobacco Use Types Packs/Day Years [...] How often do you attend chur or hindu services? More than 4 times per year 08/15/2022 Do you belong to any clubs o r organizations such as pentecostal groups, unions, fraternal or athletic groups, or [...] and heating? Not hard at all 08/15/2022 [facility] [place] of Occupat ional Health - Occupational Stress [...] place to sleep or slept in a longterm (including now)? No 08/15/2022 Nutrition Answer Date [...] Sex Assigned at Female 05/11/2022 7:48 AM X RAY EQUIPMENT TESTER Legal Sex Female 9:30 PM X RAY EQUIPMENT TESTER Gender Identity Female 05/11/2022 7:48 AM X RAY EQUIPMENT TESTER Sexual Orientation Straight 05/11/2022 7: 48 AM X RAY EQUIPMENT TESTER documented as of this encounter Miscellaneous Notes * Telephone Encounter - Darlyn Pandyaa - 06/01/2023 3:50 PM CST ECHO MOVE UP REQUEST If there is any additional information please add it to the bottom. (I.E. provider request, nursingrequest, etc.) Appt Type: SURGICAL Requested Date: 08/03/23 , Time(s): Anytime, Evening? No (7:30 Echoes are not available on Wednesdays) Are there additional dates?: No When does the provider see (date and time)?: 08/04/23 Are there times that do not work for pt?: No Is testing flexible to accommodate the echo?: Yes Pool for replies: P [facility] SCHEDULING X RAY EQUIPMENT TESTER documented in this encounter Plan of Treatment Upcoming Encounters Date Type Department Care Team (Latest Contact Info) Description 05/29/2024 12:15 PM X RAY EQUIPMENT TESTER Clinical Communication Virtual Review in [address] [phone] 05/31/2024 11:00 AM X RAY EQUIPMENT TESTER Appointment Department of Laboratory Medicine and Pathology, [facility], in [address] [phone] Patricia Parker APRN, C.N.P., D.N.P. [address] [place] [phone] 05/31/2024 2:00 PM X RAY EQUIPMENT TESTER Comprehensive Visit Preoperative Evaluation Center in [address] [phone] Arianna Jeffries M.D. [address] [place] [phone] 05/31/2024 2:45 PM X RAY EQUIPMENT TESTER Comprehensive Visit Preoperative Evaluation Center in [address] [phone] Chris Moreno APRN, C.N.P., M.S. [address] [place] [phone] 06/03/2024 8:15 AM X RAY EQUIPMENT TESTER Hospital Encounter Post Anesthesia Care Unit in [place], [place] [address] [place] [phone] Tahir Moore M.D. [address] [place] [phone] 06/03/2024 8:15 AM X RAY EQUIPMENT TESTER - 06/03/2024 2:12 PM X RAY EQUIPMENT TESTER Surgery [facility]ST ROMB MAIN OR [address] [place] [phone] Tahir Moore M.D. [address] [place] [phone] C1-2 fusion 07/02/2024 11:00 AM X RAY EQUIPMENT TESTER Procedure visit Division of Pain Medicine in [place], [place] [address] [place] [phone] Adam Barlow M.D. [address] [place] [phone] Scheduled Procedures Name Priority Associated Diagnoses Date/Ti me 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 06/03/2024 8:15 AM X RAY EQUIPMENT TESTER documented as of this encounter Visit Diagnoses Not on filedocumented in this encounter Care Teams Product Development Consultant Relationship Specialty Start Date End Date Elsewhere, Pcp PCP - General Internal Medicine 05/10/22 documented as of this encounter
--- OUTSIDE RECORDS SUMMARY | 2024-05-21 14:08 | XMS_ITS | Encounter Summary ---
Author Organization [facility] Address [address] [place] [address] Care Team Providers Care Floorworker Name Role Phone Elsewhere, Pcp Primary Care Provider Unavailabl e Encounter Details Date Type Department Care Team (Latest Contact Info) Description 08/03/2023 10:30 AM CDT Comprehensive Visit Department of Cardiovascular Surgery in [place], [place] [address] [place] [phone] Adam Aceves, MPAS, P.A.-C. [address] [place] [phone] Preoperative Examination Cardiovascular (Primary Dx); Regurgitation Mitral; Atrial Fibrillation Longstanding Persistent (HCC); Cardiomegaly; Hypertension Essential Primary; Hyperlipidemia; Anemia Of Chronic Disease; Spinal Stenosis Lumbar Region Without Neurogenic Claudication; Stenosis Spinal; Malignant Neoplasm Of Skin Squamous Cell Carcinoma; Osteoarthritis; Deficiency Vitamin D; Depression Major Recurrent (HCC); Gout; PreDiabetes; Alcohol Mild Use Disorder (Abuse) Uncomplicated Social History Tobacco Use Types Packs/Day Years [...] 08/15/2022 How often do you attend [facility] or mandaeism services? More than 4 times per year 08/15/2022 Do you belong to any clubs o r organizations such as spiritism groups, unions, fraternal or athletic groups, or [...] Answer Date Recorded PHQ-2 Score 0 08/03/2023 [facility] of Occupat ional Health - [...] place to sleep or slept in a [place] health care facility (including now)? No 08/15/2022 Depression Answer Date [...] Sex Assigned at Female 05/11/2022 7:48 AM PLASTICS ENGINEERING TEACHER Legal Sex Female 9:30 PM PLASTICS ENGINEERING TEACHER Gender Identity Female 05/11/2022 7:48 AM PLASTICS ENGINEERING TEACHER Sexual Orientation Straight 05/11/2022 7: 48 AM PLASTICS ENGINEERING TEACHER documented as of this encounter H&P Notes * dAam Aceves MPAS, P.A.-C. - 08/03/2023 10:30 AM CDT Gladys Zamarripa : 1950 Visit Date: 08/03/23 REFERRING PHYSICIAN: No ref. provider found Home bid writer: Quan Lopez MD [address] [place] [id number] [place] [address] Home primary care provider: Christine Rodriguez MD [address] [place] [phone] SUBJECTIVE CHIEF COMPLAINT / REASON FOR CONSULT [...] 06-05-2015 Other Injury Of Unspecified Body Region [id number] Fall on left knee Pain Cervical 08/23/2006 PreDiabetes Skin Cancer (Primary) NOS 11-04-2019 Past Surgical History: Procedure Laterality Date APPENDECTOMY 2020 BREAST SURGERY 1996 BUNIONECTOMY Bilateral both feet x2 on both feet SECTION 1979&1982 DECOMPRESSION POSTERIOR LUMBAR AND FUSION N/A 08/31/2022 Procedure: L3-S1 Fusion, TLIF at L3/4, L4/5.; Surgeon: Bydon, Mohamad, M.D.; Location: [facility] OR SQUAMOUS CELL [...] 3596) pamphlet; Your guide to Cardiac Surgery [id number]; Surgical Site Infection: Reducing Your Risk (MC 6471); Central Venous Catheter Infection: Reducing Your Risk ([id number]). Patient instructed to report to [facility] for Bactroban prescription. [...] of the patient today. Time includes both hvo-ezft-ii-face fbzjqfo-vd-hjru patient care. JACQUE Cam, P.A.-C. documented in this encounter Plan of Treatment Upcoming Encounters Date Type Department Care Team (Latest Contact Info) Description 05/29/2024 12:15 PM PLASTICS ENGINEERING TEACHER Clinical Communication Virtual Review in [place], [place] 200 [place] [phone] 05/31/2024 11:00 AM PLASTICS ENGINEERING TEACHER Appointment Department of Laboratory Medicine and Pathology, [facility], in [place], [place] [address] [place] [phone] Patricia Parker APRN, C.N.P., D.N.P. [address] [place] [phone] 05/31/2024 2:00 PM PLASTICS ENGINEERING TEACHER Comprehensive Visit Preoperative Evaluation Center in [place], [place] [address] [place] [phone] Arianna Jeffries M.D. [address] [place] [phone] 05/31/2024 2:45 PM PLASTICS ENGINEERING TEACHER Comprehensive Visit Preoperative Evaluation Center in [place], [place] [address] [place] [phone] Chris Moreno APRN, C.N.P., M.S. [address] [place] [phone] 06/03/2024 8:15 AM PLASTICS ENGINEERING TEACHER Hospital Encounter Post Anesthesia Care Unit in [place] [phone] [place] [phone] Tahir Moore M.D. [address] [place] [phone] 06/03/2024 8:15 AM PLASTICS ENGINEERING TEACHER - 06/03/2024 2:12 PM PLASTICS ENGINEERING TEACHER Surgery [facility]ST ROMB MAIN OR [facility] [address] [place] [phone] Tahir Moore M.D. [address] [place] [phone] C1-2 fusion 07/02/2024 11:00 AM PLASTICS ENGINEERING TEACHER Procedure visit Division of Pain Medicine in [place], [place] [address] [place] [phone] Adam Barlow M.D. [address] [place] [phone] Scheduled Procedures Name Priority Associated Diagnoses Date/Ti me 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 06/03/2024 8:15 AM PLASTICS ENGINEERING TEACHER documented as of this encounter Results * Hemoglobin A1c (08/03/2023 8:15 AM CDT) Hemoglobin A1c, B 4.9 4.0 - 5.6 % 08/03/2023 10:57 AM CDT DTL Blood (Blood, Venous) 08/03/2023 8:15 AM CDT 08/03/2023 9:49 AM CDT Adam Aceves MPAS, P.A.-C. LAB BLOOD ADD-O N Final Result [facility] 200 [place] [address], [facility] 200 [place] [address] documented in this encounter Visit Diagnoses Diagnosis Preoperative Examination Cardiovascular- Primary Regurgitation Mitral Atrial Fibrillation Longstanding Persistent (HCC) Cardiomegaly Hypertension Essential Primary Hyperlipidemia Anemia Of Chronic Disease Spinal Stenosis Lumbar Region Without Neurogenic Claudication Stenosis Spinal Malignant Neoplasm Of Skin Squamous Cell Carcinoma Osteoarthritis Deficiency Vitamin D Major Depressive Disorder, Recurrent, Unspecified (HCC) Gout PreDiabetes Alcohol Mild Use Disorder (Abuse) Uncomplicated Stenosis Spinal documented in this encounter Additional Health Concerns Assessment Noted Time PHQ-9 Depression Total Score: 2 08/03/19 24 9:15 AM CDT documented as of this encounter Care Teams Floorworker Relationship Specialty Start Date End Date Elsewhere, Pcp PCP - General Internal Medicine 05/10/22 documented as of this encounter
--- OUTSIDE RECORDS SUMMARY | 2024-05-21 14:08 | XMS_ITS | Encounter Summary ---
Author Organization [facility] Address [address] [place] [address] Care Team Providers Care Property Disposal Manager Name Role Phone Elsewhere, Pcp Primary Care Provider Unavailabl e Reason for Visit * Outpatient (Routine) - Closed Specialty Diagnoses / Procedures Referred By Chanel t Referred To Contact Pharmacy Diagnoses Regurgitation Mitral Preoperative Examination Cardiovascular Cindy Oliva P.A.-C. [address] [place] [address] Phone: tel: fax: [facility] Referral ID Status Reason Start Date Expiration Date Visits Re quested Visits Authorized [id number] Closed 05/25/2023 05/24/2024 1 1 Encounter Details Date Type Department Care Team (Latest Contact Info) Description 08/01/2023 2:00 PM CDT Virtual Visit Department of Pharmacy in [place], [place] [address] [place] [phone] Cindy Oliva P.A.-C. [address] [place] [address] [phone] Eliecer Granados, Pharm.D., R.Ph. [address] [place] [address] [place] [phone] Regurgitation Mitral; Preoperative Examination Cardiovascular Social History Tobacco Use Types Packs/Day Years [...] often do you attend chur ch or mormon services? More than 4 times per year 08/15/2022 Do you belong to any clubs o r organizations such as moravian groups, unions, fraternal or athletic groups, or [...] and heating? Not hard at all 08/15/2022 [facility] [place] of Occupat ional Health - Occupational Stress [...] place to sleep or slept in a care home (including now)? No 08/15/2022 Nutrition Answer Date [...] Sex Assigned at Female 05/11/2022 7:48 AM VENEER TAPING MACHINE OPERATOR Legal Sex Female 9:30 PM VENEER TAPING MACHINE OPERATOR Gender Identity Female 05/11/2022 7:48 AM VENEER TAPING MACHINE OPERATOR Sexual Orientation Straight 05/11/2022 7: 48 AM VENEER TAPING MACHINE OPERATOR documented as of this encounter Progress Notes * Eliecer Granados, Pharm.D., R.Ph. - 08/01/2023 2:00 PM CDT Images from the original note were not included. Patient was contacted via telephone to confirm current medication list. The medication list below was updated by a pharmacist and reflects the patient's medication list on the date of this note. Last dose dates/times that will need to be updated when patient is admitted for surgery: Allopurinol, atorvastatin, bupropion, furosemide, gabapentin, omeprazole, propafenone Medications being held prior to surgery: rivaroxaban, last dose taken 07/31/23 Lisinopril, last dose taken 08/04/23 (2 days prior to procedure) Calcium, magnesium, iron, fish oil Medication related information: per patient, currently takes propafenone 150 mg q8h (450 mg/day); takes 300 mg 3 x day Modified Medications Sig acetaminophen (TYLENOL) 500 mg [...] tablet Take 1 tablet by mouth daily. ferrous sulfate 325 mg (65 mg iron) tablet Take 325 mg by mouth every other day. furosemide (LASIX) 20 mg tablet Take 20 mg by mouth daily. gabapentin (NEURONTIN) 300 mg capsule Take 300 mg by mouth 3 (three) times a day. lisinopriL (PRINIVIL,ZESTRIL) 5 mg tablet Take 5 mg by mouth 2 (two) times a day. magnesium oxide (MAG-OX) 400 mg (241.3 mg magnesium) tablet Take 1 tablet by mouth daily. omega-3 fatty acids-fish oil 300-1,000 mg per capsule Take 2 g by mouth daily. omeprazole (PriLOSEC) [address] capsule Take 20 mg by mouth every morning before breakfast. propafenone (RYTHMOL) 150 mg tablet Take 150 mg by mouth every 8 (eight) hours. rivaroxaban (XARELTO) 20 mg tablet Take 1 tablet (20 mg total) by mouth daily. Okay to start retaking 1 week after surgery triamcinolone (KENALOG) 0.1 % ointment Apply 1 Application topically as needed for irritation (bumpon the back). cyanocobalamin (VITAMIN B12) 1,000 mcg/mL injection Inject 1,000 mcg intramuscularly every 30 (thirty) days. Eliecer Granados Pharm.D., R.Ph. documented in this encounter Plan of Treatment Upcoming Encounters Date Type Department Care Team (Latest Contact Info) Description 05/29/2024 12:15 PM VENEER TAPING MACHINE OPERATOR Clinical Communication Virtual Review in [address] [phone] 05/31/2024 11:00 AM VENEER TAPING MACHINE OPERATOR Appointment Department of Laboratory Medicine and Pathology, [facility], in [address] [phone] Patricia Parker APRN, C.N.P., D.N.P. [address] [place] [phone] 05/31/2024 2:00 PM VENEER TAPING MACHINE OPERATOR Comprehensive Visit Preoperative Evaluation Center in [address] [phone] Arianna Jeffries M.D. [address] [place] [phone] 05/31/2024 2:45 PM VENEER TAPING MACHINE OPERATOR Comprehensive Visit Preoperative Evaluation Center in [place], [place] [address] [place] [phone] Chris Moreno, JOHNSON, C.N.P., M.S. [address] [place] [phone] 06/03/2024 8:15 AM VENEER TAPING MACHINE OPERATOR Hospital Encounter Post Anesthesia Care Unit in [place], [place] [address] [place] [phone] Tahir Moore M.D. [address] [place] [phone] 06/03/2024 8:15 AM VENEER TAPING MACHINE OPERATOR - 06/03/2024 2:12 PM VENEER TAPING MACHINE OPERATOR Surgery [facility] [address] [place] [address] [phone] Tahir Moore M.D. [address] [place] [phone] C1-2 fusion 07/02/2024 11:00 AM VENEER TAPING MACHINE OPERATOR Procedure visit Division of Pain Medicine in [place], [place] [address] [place] [phone] Adam Barlow M.D. [address] [place] [phone] Scheduled Procedures Name Priority Associated Diagnoses Date/Ti me 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 06/03/2024 8:15 AM VENEER TAPING MACHINE OPERATOR documented as of this encounter Visit Diagnoses Diagnosis Regurgitation Mitral Preoperative Examination Cardiovascular Stenosis Spinal documented in this encounter Care Teams Property Disposal Manager Relationship Specialty Start Date End Date Elsewhere, Pcp PCP - General Internal Medicine 05/10/22 documented as of this encounter
--- OUTSIDE RECORDS SUMMARY | 2024-05-21 14:08 | XMS_ITS | Encounter Summary ---
Author Organization [facility] Address [address] [place] [address] Care Team Providers Care Senior Datastage Developer Name Role Phone Elsewhere, Pcp Primary Care Provider Unavailabl e Reason for Visit * Appointment Request (Routine) - Closed Specialty Diagnoses / Procedures Referred By Chanel segovia Referred To Contact Cardiovascular Surgery Referral ID Status Reason Start Date Expiration Date Visits Re quested Visits Authorized [id number] Closed 05/23/2023 05/22/2024 1 1 Encounter Details Date Type Department Care Team (Latest Contact Info) Description 05/24/2023 4:00 PM AUTOMOTIVE LIGHT MECHANIC Virtual Visit Department of Cardiovascular Surgery in [place], [place] [address] [place] [phone] Richard Aguayo M.D. [address] [place] [phone] Atrial Fibrillation Paroxysmal (HCC) (Primary Dx) Social History Tobacco Use [...] often do you attend chur ch or church services? More than 4 times per year 08/15/2022 Do you belong to any clubs o r organizations such as denominational groups, unions, fraternal or athletic groups, or [...] and heating? Not hard at all 08/15/2022 [facility] of Occupat ional Health - Occupational Stress [...] place to sleep or slept in a halfway (including now)? No 08/15/2022 Nutrition Answer Date [...] Sex Assigned at Female 05/11/2022 7:48 AM AUTOMOTIVE LIGHT MECHANIC Legal Sex Female 9:30 PM AUTOMOTIVE LIGHT MECHANIC Gender Identity Female 05/11/2022 7:48 AM AUTOMOTIVE LIGHT MECHANIC Sexual Orientation Straight 05/11/2022 7: 48 AM AUTOMOTIVE LIGHT MECHANIC documented as of this encounter Progress Notes * Richard Aguayo M.D. - 05/24/2023 4:00 PM CST This was a telephone call to the patient. I have had a chance reviewed the patient's transesophageal echocardiogram and the mechanism of the severe MR. 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 There is annular dilatation. Degree of TR is mild. I think she has a repairable valve. To the Gas Station Clerk We can go ahead and schedule robotic mitral repair with possible left atrial CryoMaze procedure with myself and Dr. Oh. 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 MOTIVE LIGHT MECHANIC documented in this encounter Plan of Treatment Upcoming Encounters Date Type Department Care Team (Latest Contact Info) Description 05/29/2024 12:15 PM AUTOMOTIVE LIGHT MECHANIC Clinical Communication Virtual Review in [address] [phone] 05/31/2024 11:00 AM AUTOMOTIVE LIGHT MECHANIC Appointment Department of Laboratory Medicine and Pathology, [facility], in [address] [phone] Patricia Parker, HOUSING INSPECTORS, C.N.P., D.N.P. [address] [place] [phone] 05/31/2024 2:00 PM AUTOMOTIVE LIGHT MECHANIC Comprehensive Visit Preoperative Evaluation Center in [address] [phone] Arianna Jeffries M.D. [address] [place] [phone] 05/31/2024 2:45 PM AUTOMOTIVE LIGHT MECHANIC Comprehensive Visit Preoperative Evaluation Center in [address] [phone] Chris Moreno, JOHNSON, C.N.P., M.S. [address] [place] [phone] 06/03/2024 8:15 AM AUTOMOTIVE LIGHT MECHANIC Hospital Encounter Post Anesthesia Care Unit in [place], [place] [address] [place] [phone] Tahir Moore M.D. [address] [place] [phone] 06/03/2024 8:15 AM AUTOMOTIVE LIGHT MECHANIC - 06/03/2024 2:12 PM AUTOMOTIVE LIGHT MECHANIC Surgery [facility] [address] [place] [phone] Tahir Moore M.D. [address] [place] [phone] C1-2 fusion 07/02/2024 11:00 AM AUTOMOTIVE LIGHT MECHANIC Procedure visit Division of Pain Medicine in [place], [place] [address] [place] [phone] Adam Barlow M.D. [address] [place] [phone] Scheduled Procedures Name Priority Associated Diagnoses Date/Ti me 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 06/03/2024 8:15 AM AUTOMOTIVE LIGHT MECHANIC documented as of this encounter Visit Diagnoses Diagnosis Atrial Fibrillation Paroxysmal (HCC)- Primary Stenosis Spinal documented in this encounter Care Teams Senior Datastage Developer Relationship Specialty Start Date End Date Elsewhere, Pcp PCP - General Internal Medicine 05/10/22 documented as of this encounter
--- OUTSIDE RECORDS SUMMARY | 2024-05-21 14:08 | XMS_ITS | Encounter Summary ---
Author Organization [facility] Address [address] [place] [address] Care Team Providers Care Tipple Worker Name Role Phone Elsewhere, Pcp Primary Care Provider Unavailabl e Encounter Details Date Type Department Care Team (Latest Contact Info) Description 08/03/2023 10:00 AM CDT Education Department of Cardiovascular Surgery in [place], [place] [address] [place] [phone] Cindy Oliva, P.A.-C. [address] [place] [phone] Yohana Zabala, RHomeroN. [address] [place] [address] [phone] Regurgitation Mitral; Preoperative Examination Cardiovascular Social History [...] How often do you attend chur or pentecostalism services? More than 4 times per year 08/15/2022 Do you belong to any clubs o r organizations such as jainism groups, unions, fraternal or athletic groups, or [...] Answer Date Recorded PHQ-2 Score 0 08/03/2023 [facility] Occupat ional Health - [...] Sex Assigned at Female 05/11/2022 7:48 AM FRUIT ROOM HAND Legal Sex Female 9:30 PM FRUIT ROOM HAND Gender Identity Female 05/11/2022 7:48 AM FRUIT ROOM HAND Sexual Orientation Straight 05/11/2022 7: 48 AM FRUIT ROOM HAND documented as of this encounter Last Filed Vital Signs Vital Sign Reading Time Taken Comments Blood Pressure 124/84 08/03/2023 9:30 AM CDT Pulse 92 08/03/2023 9:30 AM CDT Temperature 36.3 C (97.3 F) 08/03/2023 9:30 AM CDT Respiratory Rate - - Oxygen Saturation 95% 08/03/2023 9:30 AM CDT Inhaled Oxygen Concentration - - Weight 61.9 kg (136 lb 7.4 oz) 08/03/2023 9:30 A M CDT Height 159.4 cm (5' 2.76) 08/03/2023 9:30 AM CD T Body Mass Index 24.36 08/03/2023 9:30 AM CDT documented in this encounter Progress Notes * Yohana Zabala R.N. - 08/03/2023 10:00 AM CDT Ms. Gladys Zamarripa is a 73 y.o. female who was seen for pre-op education prior to surgery. Pre-op education and instructions were provided to Gladys and her Elias. They indicate understanding of all teaching at [...] the LOU-7 and PHQ9 scores were reviewed. LOU-7 score was 0 and PHQ-9 score was 2 and indicates no need for a social work consult at this time. PT/OT: Gladys has fallen in the past year. They scored [facility] Clinic Frailty Score (CFS): 4: Living withvery mild frailty (not dependant on others though symptoms limit activities) on the Clinical Frailty Scale and this indicates need for a PT/OT consult at this time. Gladys had fallen November 2022, fracturing her tibia. She has had back surgery in 2022. Currently using a walking stick to assist with her balance. She does have a walker at home. I discussed plans for discharge with Gladys, she plans to discharge Home, with assist from Elias as needed. Early Screen for Discharge Planning (ESDP) score was 12 and indicates need for a care management consult at this time. No discharge needs were identified at time of pre-op appointment. Gladys does not meet eligibility criteria for the Posthorax Vest. Gladys is not identified as a candidate for Remote Patient Monitoring. Yohana Zabala R.N. documented in this encounter Plan of Treatment Upcoming Encounters Date Type Department Care Team (Latest Contact Info) Description 05/29/2024 12:15 PM FRUIT ROOM HAND Clinical Communication Virtual Review in [address] [phone] 05/31/2024 11:00 AM FRUIT ROOM HAND Appointment Department of Laboratory Medicine and Pathology, [facility], in [address] [phone] Patricia Parker APRN, C.N.P., D.N.P. [address] [place] [phone] 05/31/2024 2:00 PM FRUIT ROOM HAND Comprehensive Visit Preoperative Evaluation Center in [address] [phone] Arianna Jeffries M.D. [address] [place] [phone] 05/31/2024 2:45 PM FRUIT ROOM HAND Comprehensive Visit Preoperative Evaluation Center in [address] [phone] Chris Moreno APRN, C.N.P., M.S. [address] [place] [phone] 06/03/2024 8:15 AM FRUIT ROOM HAND Hospital Encounter Post Anesthesia Care Unit in [place], [place] [address] [place] [phone] Tahir Moore M.D. [address] [place] [phone] 06/03/2024 8:15 AM FRUIT ROOM HAND - 06/03/2024 2:12 PM FRUIT ROOM HAND Surgery [facility] [address] [place] [address] [phone] Tahir Moore M.D. [address] [place] [phone] C1-2 fusion 07/02/2024 11:00 AM FRUIT ROOM HAND Procedure visit Division of Pain Medicine in [place], [place] [address] [place] [phone] Adam Barlow M.D. [address] [place] [phone] Scheduled Procedures Name Priority Associated Diagnoses Date/Ti me 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 06/03/2024 8:15 AM FRUIT ROOM HAND documented as of this encounter Visit Diagnoses Diagnosis Regurgitation Mitral Preoperative Examination Cardiovascular Stenosis Spinal documented in this encounter Additional Health Concerns Assessment Noted Time PHQ-9 Depression Total Score: 2 08/03/19 24 9:15 AM CDT documented as of this encounter Care Teams Tipple Worker Relationship Specialty Start Date End Date Elsewhere, Pcp PCP - General Internal Medicine 05/10/22 documented as of this encounter
--- OUTSIDE RECORDS SUMMARY | 2024-05-21 14:08 | XMS_ITS | Encounter Summary ---
Author Organization [facility] Address [address] [place] [address] Care Team Providers Care Regulator Mechanic Name Role Phone Elsewhere, Pcp Primary Care Provider Unavailabl e Reason for Visit * Outpatient (Routine) - Closed Specialty Diagnoses / Procedures Referred By Chanel t Referred To Contact Anesthesiology Diagnoses Anemia Preoperative Examination Cardiovascular Blanquita Boogie APRN, C.N.P., M.S. [address] [place] [phone] Phone: tel: fax: [facility] Referral ID Status Reason Start Date Expiration Date Visits Re quested Visits Authorized [id number] Closed 07/05/2023 01/03/2025 1 1 Encounter Details Date Type Department Care Team (Latest Contact Info) Description 07/10/2023 9:45 AM [facility] Telemedicine Preoperative Evaluation Center in [place], [place] [address] [place] [phone] Blanquita Boogie APRN, C.N.P., M.S. [address] [place] [phone] Cedrick Olson APRN C.N.PHomero, D.N.P. [address] [place] [phone] Anemia Of Chronic Disease (Primary Dx); Regurgitation Mitral; Atrial Fibrillation Paroxysmal (HCC); Cardiomegaly; Cardiomyopathy Stress Induced; Atypical Atrial Flutter (HCC); Preoperative Examination Cardiovascular Social History Tobacco Use [...] week 08/15/2022 How often do you attend [facility] or gnosticist services? More than 4 times [...] and heating? Not hard at all 08/15/2022 [facility] - Occupational Stress Questionnaire Answer [...] place to sleep or slept in a nursing home (including now)? No 08/15/2022 Nutrition Answer [...] Sex Assigned at Female 05/11/2022 7:48 AM COAL MINE INSPECTOR Legal Sex Female 9:30 PM COAL MINE INSPECTOR Gender Identity Female 05/11/2022 7:48 AM COAL MINE INSPECTOR Sexual Orientation Straight 05/11/2022 7: 48 AM COAL MINE INSPECTOR documented as of this encounter Consult Notes * Cedrick Olson APRN, C.N.P., D.N.P. - 07/10/2023 9:45 AM CST REASON FOR VISIT: Anemia Evaluation REFERRING PHYSICIAN: Blanquita Boogie APRN, C.N.P., M.S. SUBJECTIVE HISTORY OF PRESENT ILLNESS This Consult was conducted via real-time audio/video technology. Gladys Zamarripa is a 73 y.o. female here for preoperative anemia evaluation prior to scheduled robotic assisted mitral valve valvuloplasty, Maze procedure cryotherapy on August 07, [address] Ja Oh. Patients most recent hemoglobin was?11.5?on 06/30/2023, which is down from the previous hemoglobin of11.9 on 02/28/2023. Ferritin 185, TSAT 36, EGFR 78, CRP 0.6. Lab Results Component Value Date HGB 11.5 (L) 06/30/2023 ABSRTCULOCYT 53.8 08/22/2022 RETICHGBIN 36.0 08/22/2022 FERRITIN 68 08/22/2022 LABIRON 36 06/30/2023 CRP 0.6 (H) 06/30/2023 EGFR 56 (L) 05/01/2023 [id number] 571 08/29/2022 FOLATE 17.2 08/22/2022 Family/personal history of any bleeding or clotting disorders: No History of bleeding: Denies any current hematuria, hematochezia, melena, or other bleeding. Historyof upper GI bleed in 2018 and required hospitalization with blood transfusion and EGD at that time showed a small ulcer. Repeat EGD showed ulcer had resolved. She has had no bleeding since then. Blood transfusions in the last 3 months: No Blood donations in the last 3 months: No Past Hematology evaluation: Yes, she was seen by Hematology locally in February 2020 for mild normocytic anemia, mild thrombocytopenia and leukopenia. Mild anemia was thought to be contributed by irondeficiency. Monoclonal protein disease including multiple myeloma was ruled out. She did not require a bone marrow biopsy. Current treatment with Chemo therapy: No Surgery or procedure in the last 3 months: Squamous cell cancer removed from left leg last month. History of gastric bypass, celiac disease or inflammatory bowel disease: No Current treatment with iron or EPO: Yes, she started oral iron supplementation, three days per week, on her own about 1 year ago. Current PPI use: Yes, Prilosec daily. Current cancer diagnosis: No Prior DVT or PE: No Last colonoscopy November 2017. She was seen in the emergency department locally on June 23 for hypotension, lightheadedness, nausea, vomiting. She received IV fluids and has a positive for C diff. She completed course of oralvancomycin. She does report some mild diarrhea currently. She has a long history of chronic mild anemia. Patient reports she has had anemia for decades. Hemoglobin ranging between 11.3-12 since September 2022. She was noted to have macrocytic anemia and vitamin B12 deficiency by her PCP in July 2022. Initiated vitamin B12 injections at that time and still receiving vitamin B12 injections monthly. She did have anemia requiring multiple intraoperative and postoperative RBC transfusions following L3-S1 fusion with TLIF at L3/4 and L4/5 on 08/31/[address] Zheng. She was anemic prior to that surgery and seen in the preoperative anemia clinic on 08/22/2022. Hemoglobin at that time was 10.4, fe rritin 68, TSAT 66. She was not iron deficient and recommendation was to continue vitamin B12 injections. Lab Results Component Value Date HGB 11.5 (L) 06/30/2023 HGB 11.9 (L) 02/28/2023 HGB 12.0 01/16/2023 HGB 11.3 (L) 09/20/2022 HGB 10.7 (L) 09/06/2022 HGB 8.0 (L) 09/04/2022 HGB 9.1 (L) 09/02/2022 HGB 8.0 (L) 09/01/2022 The following portions of the patient's history were reviewed and updated as appropriate: medical history, social history, and problem list. REVIEW OF SYSTEMS Respiratory: - Negative for coughing up blood. Gastrointestinal: - Negative for blood in stool. Genitourinary: - Negative for blood in urine. OBJECTIVE Constitutional Appearance: Normal appearance. Neurological Mental Status: She is alert. Psychiatric Mood and Affect: Mood normal. Behavior: Behavior normal. Thought Content: Thought content normal. Judgment: Judgment normal. ASSESSMENT / PLAN #1 Anemia Of Chronic Disease #2 Regurgitation Mitral #3 Atrial Fibrillation Paroxysmal (HCC) Based on all available labs, patient has mild normocytic anemia with hemoglobin currently 11.5. Sheis not iron deficient. Ferritin normal at 185 and TSAT normal at 36. She has been taking oral iron,3 days per week, as well as receiving monthly vitamin B12 injections. Absolute reticulocyte count appropriately elevated in the setting of anemia. She has had recent C diff infection this month whichshe completed course of vancomycin. We discussed mild anemia may be contributed by inflammation and/or chronic disease. We discussed the goal of optimizing her hemoglobin prior to scheduled surgery. I recommend patient receive 40,000 units Retacrit and 1000 mg IV iron dextran, once. This was scheduled in the [facility] infusion therapy Center on July 14. We will recheck hemoglobin and iron labs on August 02 and can repeat EPO injection and/or iron infusion if indicated before surgery. Allquestions were answered regarding anemia and anemia treatments. RECOMMENDATIONS: Anemia Treatment Recommendations: 40,000 units Retacrit and 1000 mg iron dextran. PATIENT EDUCATION: Patient education 0137-10 Treating anemia before surgery sent to patient via portal and reviewed with patient. All questions have been answered. Consult conducted via real-time audio/video technology by Cedrick Olson APRN, C.N.P., D.N.P. [facility] to the patient in the patient's home. MINE INSPECTOR documented in this encounter Miscellaneous Notes * Addendum Note - Cedrick Olson APRN, C.N.P., D.N.P. - 07/10/2023 9:45 AM CSTAddended by: CEDRICK OLSON on: 07/10/2023 10:37 AM Modules accepted: Orders MINE INSPECTOR documented in this encounter Plan of Treatment Upcoming Encounters Date Type Department Care Team (Latest Contact Info) Description 05/29/2024 12:15 PM COAL MINE INSPECTOR Clinical Communication Virtual Review in [place], [place] 200 [place] [phone] 05/31/2024 11:00 AM COAL MINE INSPECTOR Appointment Department of Laboratory Medicine and Pathology, [facility] in [place], [place] [address] [place] [phone] Cedrick Olson APRN, C.N.P., D.N.P. [address] [place] [phone] 05/31/2024 2:00 PM COAL MINE INSPECTOR Comprehensive Visit Preoperative Evaluation Center in [place], [place] [address] [place] [phone] Arianna Jeffries M.D. [address] [place] [phone] 05/31/2024 2:45 PM COAL MINE INSPECTOR Comprehensive Visit Preoperative Evaluation Center in [place], [place] [address] [place] [phone] Chris Moreno APRN, C.N.P., M.S. [address] [place] [phone] 06/03/2024 8:15 AM COAL MINE INSPECTOR Hospital Encounter Post Anesthesia Care Unit in [place], [place] [address] [place] [phone] Tahir Moore M.D. [address] [place] [phone] 06/03/2024 8:15 AM COAL MINE INSPECTOR - 06/03/2024 2:12 PM COAL MINE INSPECTOR Surgery [facility]ST ROM[facility] MAIN OR [address] [place] [phone] Tahir Moore M.D. [address] [place] [phone] C1-2 fusion 07/02/2024 11:00 AM COAL MINE INSPECTOR Procedure visit Division of Pain Medicine in [place], [place] [address] [place] [phone] Adam Barlow M.D. [address] [place] [phone] Scheduled Procedures Name Priority Associated Diagnoses Date/Ti me 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 06/03/2024 8:15 AM COAL MINE INSPECTOR documented as of this encounter Results * (ABNORMAL) Ferritin (08/03/2023 8:18 AM CDT) Ferritin, S 992(H) 11 - 328 mcg/L 08/03/2023 9:40 AM CDT DTL Blood (Blood, Venous) 08/03/2023 8:18 AM CDT 08/03/2023 9:06 AM CDT us Cedrick Olson APRN, C.N.P., D.N.P. LAB BLOO D ADD-ON Final Result [facility] 200 [place] [address], [facility] 200 [place] [address] * (ABNORMAL) Reticulocyte Profile (08/03/2023 8:18 AM CDT) Reticulocytes, B 0.88 0.60 - 2.71 % 08/03/2023 9:32 AM CDT DTL Absolute Reticulocyte 31.8 30.4 - 110.9 x10(9)/L 08/03/2023 9:32 AM CDT DTL Immature Reticulocyte Fraction 3.7 3.0 - 15.9 % 08/03/2023 9:32 AM CDT DTL Reticulocyte Hemoglobin 37.7(H) 30.0 - 37.6 pg 08/03/2023 9:32 AM CDT DTL Erythrocytes 3.61(L) 3.92 - 5.13 x10(12)/L 08/03/2023 9:32 AM CDT DTL Blood (Blood, Venous) 08/03/2023 8:18 AM CDT 08/03/2023 8:45 AM CDT us Cedrick Olson APRN, C.N.P., D.N.P. LAB BLOO D ADD-ON Final Result Performing Organization Address [facility] Co de Phone Number [facility] [address] DTL [facility] 200 [place] [address] * (ABNORMAL) Iron and Total Iron-Binding Capacity (08/03/2023 8:18 AM CDT) [facility] Iron 92 35 - 145 mcg/dL 08/03/2023 9:40 AM CDT DTL Total Iron Binding Capacity 232(L) 250 - 400 mcg/dL 08/03/2023 9:40 AM CDT DTL Percent Saturation 40 14 - 50 % 08/03/2023 9:40 AM CDT DTL Blood (Blood, Venous) 08/03/2023 8:18 AM CDT 08/03/2023 9:06 AM CDT us Cedrick Olson APRN, C.N.P., D.N.P. LAB BLOO D ADD-ON Final Result Performing Organization Address City/[facility]/ZIP Co de Phone Number [facility] 200 [place] [address], [facility] DTL [facility] [address] [address] documented in this encounter Visit Diagnoses Diagnosis Anemia Of Chronic Disease- Primary Regurgitation Mitral Atrial Fibrillation Paroxysmal (HCC) Cardiomegaly Cardiomyopathy Stress Induced Atypical Atrial Flutter (HCC) Preoperative Examination Cardiovascular Stenosis Spinal documented in this encounter Care Teams Regulator Mechanic Relationship Specialty Start Date End Date Elsewhere, Pcp PCP - General Internal Medicine 05/10/22 documented as of this encounter
--- OUTSIDE RECORDS SUMMARY | 2024-05-21 14:08 | XMS_ITS | Encounter Summary ---
Author Organization [facility] Address [address] [place] [phone] Care Team Providers Care Wire Threader Name Role Phone Elsewhere, Pcp Primary Care Provider Unavailabl e Reason for Referral * Outpatient (Routine) - Closed Specialty Diagnoses / Procedures Referred By Chanel t Referred To Contact Anesthesiology Diagnoses Anemia Preoperative Examination Cardiovascular Blanquita Boogie APRN C.N.P., M.S. [address] [place] [phone] Phone: tel: fax: [facility] Referral ID Status Reason Start Date Expiration Date Visits Re quested Visits Authorized [id number] Closed 07/05/2023 01/03/2025 1 1 ET CUTTER Encounter Details Date Type Department Care Team (Latest Contact Info) Description 07/05/2023 Orders Only Department of Cardiovascular Surgery in [place], [place] [address] [place] [phone] Yohana Zabala R.N. [address] [place] [phone] Anemia (Primary Dx); Preoperative Examination Cardiovascular Social History Tobacco Use [...] any clubs o r organizations such as islam groups, unions, fraternal or athletic groups, or [...] and heating? Not hard at all 08/15/2022 [facility] - Occupational Stress [...] in a retirement (including now)? No 08/15/2022 Nutrition Answer Date [...] Sex Assigned at Female 05/11/2022 7:48 AM VELVET CUTTER Legal Sex Female 9:30 PM VELVET CUTTER Gender Identity Female 05/11/2022 7:48 AM VELVET CUTTER Sexual Orientation Straight 05/11/2022 7: 48 AM VELVET CUTTER documented as of this encounter Plan of Treatment Upcoming Encounters Date Type Department Care Team (Latest Contact Info) Description 05/29/2024 12:15 PM VELVET CUTTER Clinical Communication Virtual Review in [place], [place] 200 [place] [phone] 05/31/2024 11:00 AM VELVET CUTTER Appointment Department of Laboratory Medicine and Pathology, [facility], in [place], [place] [address] [place] [phone] Patricia Parker APRN, C.N.P., D.N.P. [address] [place] [phone] 05/31/2024 2:00 PM VELVET CUTTER Comprehensive Visit Preoperative Evaluation Center in [place], [place] [address] [place] [phone] Arianna Jeffries M.D. [address] [place] [phone] 05/31/2024 2:45 PM VELVET CUTTER Comprehensive Visit Preoperative Evaluation Center in [place], [place] [address] [place] [phone] Chris Moreno APRN, C.N.P., M.S. [address] [place] [phone] 06/03/2024 8:15 AM VELVET CUTTER Hospital Encounter Post Anesthesia Care Unit in [place], [place] [address] [place] [phone] Tahir Moore M.D. [address] [place] [phone] 06/03/2024 8:15 AM VELVET CUTTER - 06/03/2024 2:12 PM VELVET CUTTER Surgery [facility] MAIN OR [address] [place] [phone] Tahir Moore M.D. [address] [place] [phone] C1-2 fusion 07/02/2024 11:00 AM VELVET CUTTER Procedure visit Division of Pain Medicine in [place], [place] [address] [place] [phone] Adam Barlow M.D. [address] [place] [phone] Scheduled Procedures Name Priority Associated Diagnoses Date/Ti me 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 06/03/2024 8:15 AM VELVET CUTTER Scheduled Referrals Name Type Priority Associated Diagnoses Orde r Schedule Preoperative Medical Evaluation - REJI Anemia Consult (clinic) Outpatient Referral Routine Anemia Preoperative Examination Cardiovascular Expected: 07/05/2023 (Approximate), Expires: 10/02/2024 documented as of this encounter Visit Diagnoses Diagnosis Anemia- Primary Preoperative Examination Cardiovascular Stenosis Spinal documented in this encounter Care Teams Wire Threader Relationship Specialty Start Date End Date Elsewhere, Pcp PCP - General Internal Medicine 05/10/22 documented as of this encounter
--- OUTSIDE RECORDS SUMMARY | 2024-05-21 14:08 | XMS_ITS | Encounter Summary ---
Author Organization [facility] Address [address] [place] [address] Care Team Providers Care Automatic Spinning Lathe Operator Name Role Phone Elsewhere, Pcp Primary Care Provider Unavailabl e Reason for Referral * Outpatient (Routine) - Closed Specialty Diagnoses / Procedures Referred By Chanel segovia Referred To Contact Cardiovascular Disease Anibal Wells APRN, C.N.P., D.N.P. [address] [place] [address] Phone: tel: fax: [facility] Referral ID Status Reason Start Date Expiration Date Visits Re quested Visits Authorized [id number] Closed 06/05/2023 06/04/2026 1 1 Scheduling Instructions Non-face to face phone call GY ECONOMIST * Outpatient (Routine) - Closed Specialty Diagnoses / Procedures Referred By Contac t Referred To Contact Diagnoses Regurgitation Mitral Preoperative Examination Cardiovascular Procedures Echo Transthoracic (TTE) Cindy Oliva P.A.-C. [address] [place] [address] Phone: tel: fax: [facility] Referral ID Status Reason Start Date Expiration Date Visits Re quested Visits Authorized [id number] Closed 05/25/2023 05/24/2024 1 1 GY ECONOMIST * Outpatient (Routine) - Closed Specialty Diagnoses / Procedures Referred By Contac t Referred To Contact Diagnoses Regurgitation Mitral Preoperative Examination Cardiovascular Procedures DX Chest AP or PA and Lateral 2 Views Cindy Oliva P.A.-C. [address] [place] [phone] Phone: tel: fax: [facility] Referral ID Status Reason Start Date Expiration Date Visits Re quested Visits Authorized [id number] Closed 05/25/2023 05/24/2024 1 1 GY ECONOMIST * Outpatient (Routine) - Closed Specialty Diagnoses / Procedures Referred By Contac t Referred To Contact Diagnoses Regurgitation Mitral Preoperative Examination Cardiovascular Procedures ECG 12 Lead Cindy Oliva P.A.-C. [address] [place] [address] Phone: tel: fax: [facility] Referral ID Status Reason Start Date Expiration Date Visits Re quested Visits Authorized [id number] Closed 05/25/2023 05/24/2024 1 1 GY ECONOMIST * Outpatient (Routine) - Closed Specialty Diagnoses / Procedures Referred By Contac t Referred To Contact Pharmacy Diagnoses Regurgitation Mitral Preoperative Examination Cardiovascular Cindy Oliva P.A.-C. [address] [place] [address] Phone: tel: fax: [facility] Referral ID Status Reason Start Date Expiration Date Visits Re quested Visits Authorized [id number] Closed 05/25/2023 05/24/2024 1 1 GY ECONOMIST * Specialty Diagnoses / Procedures Referred By Chanel segovia Referred To Contact Diagnoses Regurgitation Mitral Preoperative Examination Cardiovascular Cindy Oliva P.A.-C. [address] [place] [phone] Phone: tel: fax: [facility] Referral ID Status Reason Start Date Expiration Date Visits Re quested Visits Authorized GY ECONOMIST Encounter Details Date Type Department Care Team (Latest Contact Info) Description 05/25/2023 2:00 PM ENERGY ECONOMIST Virtual Visit Department of Cardiovascular Surgery in [place], [place] [address] [place] [phone] Cindy Oliva P.A.-C. [address] [place] [phone] Regurgitation Mitral (Primary Dx); Preoperative Examination Cardiovascular Social History [...] often do you attend chur ch or roman catholic services? More than 4 times per year 08/15/2022 Do you belong to any clubs o r organizations such as taoism groups, unions, fraternal or athletic groups, or [...] and heating? Not hard at all 08/15/2022 [facility] Occupat ional Health - Occupational Stress [...] in a prison (including now)? No 08/15/2022 Nutrition Answer Date [...] Sex Assigned at Female 05/11/2022 7:48 AM ENERGY ECONOMIST Legal Sex Female 9:30 PM ENERGY ECONOMIST Gender Identity Female 05/11/2022 7:48 AM ENERGY ECONOMIST Sexual Orientation Straight 05/11/2022 7: 48 AM ENERGY ECONOMIST documented as of this encounter Progress Notes * Cindy Oliva, Marianela. - 05/25/2023 2:00 PM CST Gladys Zamarripa : 1950 Visit Date: 05/25/23 The patient was called in consultation with Dr. Aguayo. The patient will need to be scheduled for robotic mitral repair with possible left atrial CryoMaze procedure with Dr. Aguayo and Dr. Oh. The surgical date is pending as this will need to be sent to our robotic nursing scheduler, Corrine Pandya. Intraoperative orders were placed. Rapid Recovery: Patient meets preoperative inclusion criteria for rapid recovery pathway. Case listing has been updated. 1. The required preoperative testing has been ordered to be completed prior to surgery. This includes: Labs: CBC, BMP, PT/INR, Type & Screen (early), and TSH Tests: CXR, ECG, and Echo Transthoracic Cardiac Catheterization: Will need to be ordered and scheduled once a surgical date has been established. Consultations: Pharmacy Medication Consult and Anemia Clinic Consultation A Pre-operative appointment will be scheduled with the [facility] and RN Team prior to surgery. 2. Patient denies any allergies to penicillin and contrast dye 3. The patient's most recent known hemoglobin is 11.9 g/dL on 02/28/23. Has had chronic anemia and local workup did not find an etiology. The patient may need an anemia clinic work-up. Reflex anemia panel has been ordered. 4. Does patient currently smoke? No 5. Patient has already been seen by a local dentist to be cleared for surgery. A dental clearance form dated 04/18/23 is in the EMR. 6. The following medication instructions were provided to the patient: Antiplatelet: N/A Anticoagulation: Stop Xarelto (Rivaroxaban) 5 days prior to surgery. TFIFANIE/ARB: Stop lisinopril 2 days prior to surgery. Diabetic Medication: N/A Immunosuppression: N/A Stop all NSAIDs, ibuprofen (Advil) or similar medications 3 days prior to surgery. Stop all vitamins, fish oil, and supplements 7 days prior to surgery. No other medication changes are recommended. If any new medications are initiated, medical changes arise, or you have a positive COVID test or exposure, you are responsible for contacting the surgical team. Please do not schedule any vaccines within 2 weeks before or after surgery. The patient has been provided a complete patient appointment guide prior to leaving clinic today orwill view via patient portal. I personally spent 30 minutes in care of the patient today. Time includes both [id number] [id number] patient care. Cindy Oliva P.A.-C. GY ECONOMIST documented in this encounter Miscellaneous Notes * Addendum Note - Anibal Wells, AUTO WASH BUFFER, C.N.P., D.N.P. - 05/25/2023 2:00 PM CSTAddended by: ANIBAL WELLS on: 06/05/2023 12:25 PM Modules accepted: Orders GY ECONOMIST documented in this encounter Plan of Treatment Upcoming Encounters Date Type Department Care Team (Latest Contact Info) Description 05/29/2024 12:15 PM ENERGY ECONOMIST Clinical Communication Virtual Review in [place], [place] [address] [place] [address] 05/31/2024 11:00 AM ENERGY ECONOMIST Appointment Department of Laboratory Medicine and Pathology, [facility], in [place], [place] [address] [place] [phone] Patricia Parker APRN, C.N.P., D.N.P. [address] [place] [phone] 05/31/2024 2:00 PM ENERGY ECONOMIST Comprehensive Visit Preoperative Evaluation Center in [place], [place] [address] [place] [phone] Arianna Jeffries M.D. [address] [place] [phone] 05/31/2024 2:45 PM ENERGY ECONOMIST Comprehensive Visit Preoperative Evaluation Center in [place], [place] [address] [place] [phone] Chris Moreno APRN, C.N.P., M.S. [address] [place] [phone] 06/03/2024 8:15 AM ENERGY ECONOMIST Hospital Encounter Post Anesthesia Care Unit in [place], [place] [address] [place] [phone] Tahir Moore M.D. [address] [place] [phone] 06/03/2024 8:15 AM ENERGY ECONOMIST - 06/03/2024 2:12 PM ENERGY ECONOMIST Surgery [facility] MAIN OR [address] [place] [phone] Tahir Moore M.D. [address] [place] [address] C1-2 fusion 07/02/2024 11:00 AM ENERGY ECONOMIST Procedure visit Division of Pain Medicine in [place], [place] [address] [place] [phone] Adam Barlow M.D. 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 06/03/2024 8:15 AM ENERGY ECONOMIST Scheduled Referrals Name Type Priority Associated Diagnoses Orde r Schedule Cardiovascular Surgery - Education visit (clinic) Outpatient Referral Routine Regurgitation Mitral Preoperative Examination Cardiovascular 1 Occurrences starting 05/25/2023 until 08/23/2024 Pharmacy - Pre surgery medication history consult (clinic) Outpatient Referral Routine Regurgitation Mitral Preoperative Examination Cardiovascular 1 Occurrences starting 05/25/2023 until 08/23/2024 Cardiovascular Disease nurse visit (clinic) Outpatient Referral Routine Expected: 07/03/2023, Expires: 09/03/2024 documented as of this encounter Results * (TTE) 2D ECHO DOPPLER COLOR (08/03/2023 3:06 PM CDT) Ejection Fraction 61 MC CV EIMS Sinus of Valsalva 32 MC CV EIMS Mid-Ascending Aorta 37 MC CV EIMS LV Mass Index 82 MC CV EIMS LV End-Diastolic Diameter 50 MC CV EIMS LV End-Systolic Diameter 32 MC CV EIMS LV End-Diastolic Volume 102 MC CV EIMS LV End-Systolic Volume 39 MC CV EIMS MV E Velocity 0.8 MC CV EIMS MV A Velocity 0.3 MC CV EIMS MV E/A 2.67 MC CV EIMS MV e' Velocity Medial 0.09 MC CV EIMS MV e' Velocity Lateral 0.12 MC CV EIMS MV E/e' Medial 8.9 MC CV EIMS MV E/e' Lateral 6.7 MC CV EIMS Left ventricular stroke volume index 38 MC CV EIMS Cardiac Output 5.84 MC CV EIMS Cardiac Index 3.56 MC CV EIMS LV Interventricular Septal Wall Thickness 8 MC CV EIMS LV Posterior Wall Thickness 8 MC CV EIMS LV Relative Wall Thickness 32 MC CV EIMS Tricuspid Annular S 0.13 MC CV EIMS TR Vmax 3.46 MC CV EIMS RA Pressure 5 MC CV EIMS RV Systolic Pressure 53 MC CV EIMS Estimated diastolic pulmonary artery pressure 17 MC CV EIMS IVC Diameter 12 MC CV EIMS AV mean gradient 6 MC CV EIMS Aortic valve area 2.34 MC CV EIMS Aortic Valve Dimensionless Index 0.74 MC CV EIMS MV regurgitant volume 15 MC CV EIMS LA Volume Index 48 MC CV EIMS Aortic Valve Systolic Peak Velocity 1.7 MC CV EIMS Anatomical Region Laterality Modality Echocardiography 08/03/2023 2:15 PM CDT Impressions 08/03/2023 3:39 PM CDT There are no previous [facility] echocardiograms available for comparison. LEFT VENTRICLE:Normal left ventricular chamber size. Normal left ventricular geometry. Calculated 2-D biplane volumetric left ventricular ejection fraction of 61%. Left ventricular cardiac index 3.56 l/min/m2. Left ventricular stroke volume index 38 ml/m2. No regional wall motion abnormalities. Elevated left ventricular filling pressure. RIGHT VENTRICLE:Normal right ventricular chamber size. Normal right ventricular systolic function. Estimated right ventricular systolic pressure 53 mmHg (right atrial pressure of 5 mmHg). ATRIA:Severely enlarged left atrial size. Left atrial volume index 48 ml/m2. Mildly enlarged right atrial size. CARDIAC VALVES:Trileaflet aortic valve. Sclerotic aortic valve. No aortic valve regurgitation. Thickened mitral valve. Mitral annulus dilatation. Moderate mitral valve regurgitation. Normal pulmonary valve. Normal pulmonary valve systolic velocities. Mild pulmonary valve regurgitation. Normal tricuspid valve. Mild tricuspid valve regurgitation. OTHER ECHO FINDINGS:Normal inferior vena cava size with normal inspiratory collapse (>50%). Normal sinus of Valsalva diameter of 32 mm. Normal mid ascending aorta diameter of 37 mm. Abdominal aorta incompletely visualized. Normal abdominal aorta Doppler flow pattern. No atrial level shunt by color flow imaging. No intracardiac mass or thrombus, but the left atrial appendage cannot be visualized adequately with transthoracic echo to exclude thrombus in this location. No pericardial effusion. For the complete report, see the Order-Level Documents. Narrative 08/03/2023 3:39 PM CDT For the complete report, see the Order-Level Documents. Hemodynamics Heart Rate: 92 BPM Blood Pressure: 124 / 84 mmHg ECG: Sinus rhythm, 1st degree A-V block Final Impressions 1. Moderate mitral valve regurgitation (severity may be under estimated by TTE). Mechanism: Coaptation defect/gap due to cleft between P1 and P3 (*P2 scallop appears vestigial). 2. Normal left ventricular chamber size, no regional wall motion abnormalities, calculated 2-D biplane volumetric ejection fraction of 61%. 3. Left ventricular cardiac index 3.56 l/min/m2. 4. Normal left ventricular geometry, elevated filling pressure. 5. Severely enlarged left atrial size. 6. Normal right ventricular chamber size, normal systolic function, estimated right ventricular systolic pressure 53 mmHg (right atrial pressure of 5 mmHg). 7. Normal inferior vena cava size with normal inspiratory collapse (>50%). 8. No pericardial effusion. Procedure Note Merry Mcknight M.D., M.P.H. - 08/03/2023 For the complete report, see the Order-Level Documents. Hemodynamics Heart Rate: 92 BPM Blood Pressure: 124 / 84 mmHg ECG: Sinus rhythm, 1st degree A-V block Final Impressions 1. Moderate mitral valve regurgitation (severity may be under estimated byTTE). Mechanism: Coaptation defect/gap due to cleft between P1 and P3(*P2 scallop appears vestigial). 2. Normal left ventricular chamber size, no regional wall motionabnormalities, calculated 2-D biplane volumetric ejection fraction of61%. 3. Left ventricular cardiac index 3.56 l/min/m2. 4. Normal left ventricular geometry, elevated filling pressure. 5. Severely enlarged left atrial size. 6. Normal right ventricular chamber size, normal systolic function,estimated right ventricular systolic pressure 53 mmHg (right atrialpressure of 5 mmHg). 7. Normal inferior vena cava size with normal inspiratory collapse(>50%). 8. No pericardial effusion. Findings There are no previous [facility] echocardiograms available forcomparison. LEFT VENTRICLE:Normal left ventricular chamber size. Normal leftventricular geometry. Calculated 2-D biplane volumetric left ventricularejection fraction of 61%. Left ventricular cardiac index 3.56 l/min/m2.Left ventricular stroke volume index 38 ml/m2. No regional wall motionabnormalities. Elevated left ventricular filling pressure. RIGHT VENTRICLE:Normal right ventricular chamber size. Normal rightventricular systolic function. Estimated right ventricular systolicpressure 53 mmHg (right atrial pressure of 5 mmHg). ATRIA:Severely enlarged left atrial size. Left atrial volume index 48ml/m2. Mildly enlarged right atrial size. CARDIAC VALVES:Trileaflet aortic valve. Sclerotic aortic valve. No aorticvalve regurgitation. Thickened mitral valve. Mitral annulus dilatation.Moderate mitral valve regurgitation. Normal pulmonary valve. Normalpulmonary valve systolic velocities. Mild pulmonary valve regurgitation.Normal tricuspid valve. Mild tricuspid valve regurgitation. OTHER ECHO FINDINGS:Normal inferior vena cava size with normal inspiratorycollapse (>50%). Normal sinus of Valsalva diameter of 32 mm. Normal midascending aorta diameter of 37 mm. Abdominal aorta incompletelyvisualized. Normal abdominal aorta Doppler flow pattern. No atrial levelshunt by color flow imaging. No intracardiac mass or thrombus, but theleft atrial appendage cannot be visualized adequately with transthoracicecho to exclude thrombus in this location. No pericardial effusion. For the complete report, see the Order-Level Documents. us Cindy Oliva P.A.-C. CV ECHO PROCEDURES Rosmery cole Result * ECG 12 Lead (08/03/2023 9:43 AM CDT) Ventricular Rate ECG/Min 89 BPM MUSE OH Interval 224 ms MUSE QRSD Interval 88 ms MUSE QT Interval 406 ms MUSE QTC Interval 493 ms MUSE P [place] 73 degrees MUSE R [place] 47 degrees MUSE T Wave [place] -35 degrees MUSE 08/03/2023 9:43 AM CDT 08/03/2023 9:50 AM CDT Impressions MUSE - 08/03/2023 9:50 AM CDT Sinus rhythm with 1st degree A-V block Prolonged QT When compared with ECG of 22-AUG-2022 10:52, OH interval has increased QT has lengthened Reviewed by KEVIN Hay Narrative Procedure Note Shad Parnell Jr., M.D. - 08/03/2023 IMPRESSION: Sinus rhythm with 1st degree A-V block Prolonged QT When compared with ECG of 22-AUG-2022 10:52, OH interval has increased QT has lengthened Reviewed by KEVIN Hay us Cindy Oliva P.A.-C. ECG ORDERABLES Final R esult MUSE NA * DX Chest AP or PA and Lateral 2 Views (08/03/2023 9:01 AM CDT) Anatomical Region Laterality Modality Chest, Thoracic RST LOS, Tho racic ARZ LOS, Thoracic FLA LOS N/A Digital Radiography Impressions 08/03/2023 9:08 AM CDT Lungs are clear. Calcified tortuous thoracic aorta. No significant enlargement of cardiac silhouette. Narrative 08/03/2023 9:08 AM CDT EXAM: DX CHEST AP OR PA AND LATERAL 2 VIEWS Procedure Note Yue Steele M.D. - 08/03/2023 EXAM: DX CHEST AP OR PA AND LATERAL 2 VIEWS IMPRESSION: Lungs are clear. Calcified tortuous thoracic aorta. No significantenlargement of cardiac silhouette. us Cindy Oliva P.A.-C. IMG DIAGNOSTIC IMAGING PROCEDURES Final Result * S-TSH (Thyroid-Stimulating Hormone - Sensitive) (08/03/2023 8:18 AM CDT) TSH, Sensitive 2.4 0.3 - 4.2 mIU/L 08/03/2023 9:40 AM CDT DTL Blood (Blood, Venous) 08/03/2023 8:18 AM CDT 08/03/2023 9:06 AM CDT Cindy Oliva P.A.-C. LAB BLOOD ADD-ON Final Result [facility] [address] [place], [place] [address] [address] [place] [address] * Prothrombin Time (PT) (08/03/2023 8:18 AM CDT) Prothrombin Time, P 10.1 9.4 - 12.5 sec 08/03/2023 9:10 AM CDT DT INR 0.9 0.9 - 1.1 08/03/2023 9:10 AM CDT DT Comment: ----ADDITIONAL INFORMATION---- Standard intensity warfarin therapeutic range: 2.0 to 3.0 High intensity warfarin therapeutic range: 2.5 to 3.5 Blood (Blood, Venous) 08/03/2023 8:18 AM CDT 08/03/2023 8:47 AM CDT us Cindy Oliva P.A.-C. LAB BLOOD ADD-ON Final Result [facility] [address] [place], [place] [address] [address] [place] [address] * Type and Screen (with Reflex Antibody ID) (08/03/2023 8:18 AM CDT) [facility] ABORh A Pos Not applicable 08/03/2023 9:48 AM CDT STRM Antibody Screen Negative Negative 08/03/2023 9:59 AM CDT STRM Type & Screen Expiration 10/01/2023 23:59 08/03/2023 9:48 AM CDT STRM Testing Location [place] DEFAULT 08/03/2023 8:57 AM CDT STRM Blood (Blood, Venous) 08/03/2023 8:18 AM CDT 08/03/2023 8:57 AM CDT us Cindy Oliva P.A.-C. LAB BLOOD BANK TEST ORD ERABLES Final Result [facility] [address] [place] [address], [place] STRM [facility] [address] [place] [address] * (ABNORMAL) Basic Metabolic Panel (08/03/2023 8:18 AM CDT) Pathologist [facility] Potassium, S 3.8 3.6 - 5.2 mmol/L 08/03/2023 9:40 AM CDT DTL Sodium, S 137 135 - 145 mmol/L 08/03/2023 9:40 AM CDT DTL Chloride, S 95(L) 98 - 107 mmol/L 08/03/2023 9:40 AM CDT DTL Bicarbonate, S 25 22 - 29 mmol/L 08/03/2023 9:40 AM CDT DTL Anion Gap 17(H) 7 - 15 08/03/2023 9:40 AM CDT DTL BUN (Blood Urea Nitrogen), S 8 6 - 21 mg/dL 08/03/2023 9:40 AM CDT DTL Creatinine 0.66 0.59 - 1.04 mg/dL 08/03/2023 9:40 AM CDT DTL Estimated GFR (eGFR) >90 >=60 mL/min/BSA 08/03/2023 9:40 AM CDT DTL Comment: Estimated GFR calculated using the 2020 CKD_EPI creatinine equation. Calcium, Total, S 9.4 8.8 - 10.2 mg/dL 08/03/2023 9:40 AM CDT DTL Glucose, S 88 70 - 140 mg/dL 08/03/2023 9:40 AM CDT DTL Blood (Blood, Venous) 08/03/2023 8:18 AM CDT 08/03/2023 9:06 AM CDT us Cindy Oliva P.A.-C. LAB BLOOD ADD-ON Final Result [facility] [address] [place] [address], [place] DTL [facility] [address] [place] [address] * (ABNORMAL) CBC without Differential (08/03/2023 8:18 AM CDT) Hemoglobin 12.1 11.6 - 15.0 g/dL 08/03/2023 9:32 AM CDT DTL Hematocrit 35.5 35.5 - 44.9 % 08/03/2023 9:32 AM CDT DTL Erythrocytes 3.61(L) 3.92 - 5.13 x10(12)/L 08/03/2023 9:32 AM CDT DTL MCV 98.3(H) 78.2 - 97.9 fL 08/03/2023 9:32 AM CDT DTL RBC Distrib Width 14.8 12.2 - 16.1 % 08/03/2023 9:32 AM CDT DTL Platelet Count 218 157 - 371 x10(9)/L 08/03/2023 9:32 AM CDT DTL Leukocytes 4.8 3.4 - 9.6 x10(9)/L 08/03/2023 9:32 AM CDT DTL Blood (Blood, Venous) 08/03/2023 8:18 AM CDT 08/03/2023 8:45 AM CDT Cindy Oliva P.A.-C. LAB BLOOD ADD-ON Final Result [facility] [address] [place] [address], [facility] [address] [place] [address] documented in this encounter Visit Diagnoses Diagnosis Regurgitation Mitral- Primary Preoperative Examination Cardiovascular Regurgitation Mitral Preoperative Examination Cardiovascular Regurgitation Mitral Preoperative Examination Cardiovascular Stenosis Spinal documented in this encounter Care Teams Automatic Spinning Lathe Operator Relationship Specialty Start Date End Date Elsewhere, Pcp PCP - General Internal Medicine 05/10/22 documented as of this encounter
--- OUTSIDE RECORDS SUMMARY | 2024-05-21 14:08 | XMS_ITS | Encounter Summary ---
Author Organization [facility] Address [address] [place] [address] Care Team Providers Care Auto Accessories Installer Name Role Phone Elsewhere, Pcp Primary Care Provider Unavailabl e Reason for Referral * Outpatient (Routine) - Closed Specialty Diagnoses / Procedures Referred By Chanel segovia Referred To Contact Diagnoses Regurgitation Mitral Preoperative Examination Cardiovascular Procedures Echo Transthoracic (TTE) Cindy Oliva P.A.-C. [address] [place] [address] Phone: tel: fax: [facility] Referral ID Status Reason Start Date Expiration Date Visits Re quested Visits Authorized [id number] Closed 05/25/2023 05/24/2024 1 1 Reason for Visit * Outpatient (Routine) - Closed Specialty Diagnoses / Procedures Referred By Chanel segovia Referred To Contact Diagnoses Regurgitation Mitral Preoperative Examination Cardiovascular Procedures Echo Transthoracic (TTE) Cindy Oliva P.A.-C. [address] [place] [address] Phone: tel: fax: [facility] Referral ID Status Reason Start Date Expiration Date Visits Re quested Visits Authorized [id number] Closed 05/25/2023 05/24/2024 1 1 Encounter Details Date Type Department Care Team (Latest Contact Info) Description 08/03/2023 1:32 PM CDT - 08/03/2023 11:59 PM CDT Hospital Encounter Department of Cardiovascular Diseases in [place], [place] [address] [place] [phone] Cindy Oliva P.A.-C. [address] [place] [address] Regurgitation Mitral; Preoperative Examination Cardiovascular Discharge Disposition: Home or Self Care Social [...] often do you attend chur ch or episcopal services? More than 4 times per year [...] Answer Date Recorded PHQ-2 Score 0 08/03/2023 [facility] of Occupat ional Health - Occupational [...] place to sleep or slept in a senior living (including now)? No 08/15/2022 Depression Answer Date [...] Sex Assigned at Female 05/11/2022 7:48 AM SSN/SSBN ASSISTANT NAVIGATOR Legal Sex Female 9:30 PM SSN/SSBN ASSISTANT NAVIGATOR Gender Identity Female 05/11/2022 7:48 AM SSN/SSBN ASSISTANT NAVIGATOR Sexual Orientation Straight 05/11/2022 7: 48 AM SSN/SSBN ASSISTANT NAVIGATOR documented as of this encounter Medications at [...] (Latest Contact Info) Description 05/29/2024 12:15 PM SSN/SSBN ASSISTANT NAVIGATOR Clinical Communication Virtual Review in [place], [place] 200 [place] [address] 05/31/2024 11:00 AM SSN/SSBN ASSISTANT NAVIGATOR Appointment Department of Laboratory Medicine and Pathology, [facility], in [address] [phone] Patricia Parker APRN, C.N.P., D.N.P. [address] [place] [phone] 05/31/2024 2:00 PM SSN/SSBN ASSISTANT NAVIGATOR Comprehensive Visit Preoperative Evaluation Center in [place], [place] [address] [place] [phone] Arianna Jeffries M.D. [address] [place] [phone] 05/31/2024 2:45 PM SSN/SSBN ASSISTANT NAVIGATOR Comprehensive Visit Preoperative Evaluation Center in [address] [phone] Chris Moreno APRN, C.N.P., M.S. [address] [place] [phone] 06/03/2024 8:15 AM SSN/SSBN ASSISTANT NAVIGATOR Hospital Encounter Post Anesthesia Care Unit in [address] [phone] Tahir Moore M.D. [address] [place] [phone] 06/03/2024 8:15 AM SSN/SSBN ASSISTANT NAVIGATOR - 06/03/2024 2:12 PM SSN/SSBN ASSISTANT NAVIGATOR Surgery RST ROMB MAIN OR [facility] [address] [place] [phone] Tahir Moore M.D. [address] [place] [phone] C1-2 fusion 07/02/2024 11:00 AM SSN/SSBN ASSISTANT NAVIGATOR Procedure visit Division of Pain Medicine in [place], [place] [address] [place] [address] Adam Barlow M.D. 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 06/03/2024 8:15 AM SSN/SSBN ASSISTANT NAVIGATOR documented as of this encounter Procedures Procedure Name Priority Date/Time Associated Diagnosis Comments (TTE) 2D ECHO DOPPLER COLOR Routine 08/03/2023 3:06 PM CDT Regurgitation Mitral Preoperative Examination Cardiovascular documented in this encounter Results * (TTE) 2D ECHO [...] EIMS Aortic Valve Systolic Peak Velocity 1.7 [facility] EINY Anatomical Region Laterality Modality Echocardiography 08/03/2023 2:15 PM CDT Impressions 08/03/2023 3:39 PM CDT There are no previous [facility] echocardiograms available for comparison. LEFT VENTRICLE:Normal [...] pericardial effusion. Findings There are no previous [facility] echocardiograms available forcomparison. LEFT VENTRICLE:Normal left [...] Cindy Oliva P.A.-C. CV ECHO PROCEDURES Rosmery l Result documented in this encounter Visit Diagnoses Diagnosis Regurgitation Mitral Preoperative Examination Cardiovascular Stenosis Spinal documented in this encounter Additional Health Concerns Assessment Noted Time PHQ-9 Depression Total Score: 2 08/03/19 24 9:15 AM CDT documented as of this encounter Care Teams Auto Accessories Installer Relationship Specialty Start Date End Date Elsewhere, Pcp PCP - General Internal Medicine 05/10/22 documented as of this encounter
--- OUTSIDE RECORDS SUMMARY | 2024-05-21 14:08 | XMS_ITS | Encounter Summary ---
Author Organization [facility] Address [address] [place] [address] Care Team Providers Care Precipitator Name Role Phone Elsewhere, Pcp Primary Care Provider Unavailabl e Encounter Details Date Type Department Care Team (Latest Contact Info) Description 05/17/2023 Clinical Communication Department of Cardiovascular Surgery in [place], [place] [address] [place] [phone] Richard Aguayo M.D. [address] [place] [address] Social History Tobacco Use Types Packs/Day Years [...] How often do you attend chur or jainism services? More than 4 times per year 08/15/2022 Do you belong to any clubs o r organizations such as nondenominational groups, unions, fraternal or athletic groups, or [...] and heating? Not hard at all 08/15/2022 [facility] of Occupat ional Health - Occupational Stress [...] Sex Assigned at Female 05/11/2022 7:48 AM HOUSECALLS NURSE Legal Sex Female 9:30 PM HOUSECALLS NURSE Gender Identity Female 05/11/2022 7:48 AM HOUSECALLS NURSE Sexual Orientation Straight 05/11/2022 7: 48 AM HOUSECALLS NURSE documented as of this encounter Miscellaneous Notes * Telephone Encounter - Corrine Pandya - 05/17/2023 11:[address] Aguayo, Patient's VIJI and TTE images have been received. Please review at your earliest convenience. Thank you! ECALLS NURSE documented in this encounter Plan of Treatment Upcoming Encounters Date Type Department Care Team (Latest Contact Info) Description 05/29/2024 12:15 PM HOUSECALLS NURSE Clinical Communication Virtual Review in [place], [place] 200 [place] [address] 05/31/2024 11:00 AM HOUSECALLS NURSE Appointment Department of Laboratory Medicine and Pathology, [facility], in [place], [place] [address] [place] [phone] Patricia Parker APRN, C.N.P., D.N.P. [address] [place] [phone] 05/31/2024 2:00 PM HOUSECALLS NURSE Comprehensive Visit Preoperative Evaluation Center in [place], [place] [address] [place] [phone] Arianna Jeffries M.D. [address] [place] [phone] 05/31/2024 2:45 PM HOUSECALLS NURSE Comprehensive Visit Preoperative Evaluation Center in [place], [place] [address] [place] [phone] Chris Moreno APRN, C.N.P., M.S. [address] [place] [phone] 06/03/2024 8:15 AM HOUSECALLS NURSE Hospital Encounter Post Anesthesia Care Unit in [place] [phone] [place] [phone] Tahir Moore M.D. [address] [place] [phone] 06/03/2024 8:15 AM HOUSECALLS NURSE - 06/03/2024 2:12 PM HOUSECALLS NURSE Surgery RST ROMB MAIN OR [address] [place] [phone] Tahir Moore M.D. [address] [place] [phone] C1-2 fusion 07/02/2024 11:00 AM HOUSECALLS NURSE Procedure visit Division of Pain Medicine in [place], [place] [address] [place] [phone] Adam Barlow M.D. 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
--- OUTSIDE RECORDS SUMMARY | 2024-05-21 14:08 | XMS_ITS | Encounter Summary ---
Author Organization [facility] Address [address] [place] [address] Care Team Providers Care Recreational Therapist Name Role Phone Elsewhere, Pcp Primary Care Provider Unavailabl e Reason for Referral * Outpatient (Routine) - Closed Specialty Diagnoses / Procedures Referred By Chanel segovia Referred To Contact Diagnoses Regurgitation Mitral Preoperative Examination Cardiovascular Procedures DX Chest AP or PA and Lateral 2 Views Cindy Oliva P.A.-C. 200 [place] [address] Phone: tel: fax: [facility] Referral ID Status Reason Start Date Expiration Date Visits Re quested Visits Authorized [id number] Closed 05/25/2023 05/24/2024 1 1 Reason for Visit * Outpatient (Routine) - Closed Specialty Diagnoses / Procedures Referred By Chanel segovia Referred To Contact Diagnoses Regurgitation Mitral Preoperative Examination Cardiovascular Procedures DX Chest AP or PA and Lateral 2 Views Cindy Oliva P.A.-C. [address] [place] [address] Phone: tel: fax: [facility] Referral ID Status Reason Start Date Expiration Date Visits Re quested Visits Authorized [id number] Closed 05/25/2023 05/24/2024 1 1 Encounter Details Date Type Department Care Team (Latest Contact Info) Description 08/03/2023 8:25 AM CDT - 08/03/2023 1:31 PM CDT Hospital Encounter Department of Radiology, [facility] in [place], [place] [address] [place] [address] Cindy Oliva P.A.-C. [address] [place] [address] Regurgitation Mitral; Preoperative Examination Cardiovascular Discharge Disposition: [...] How often do you attend chur or temple services? More than 4 times per year [...] Date Recorded PHQ-2 Score 0 08/03/2023 [facility] of Occupat ional [facility] - Occupational Stress Questionnaire Answer Date Recorded [...] place to sleep or slept in a penitentiary (including now)? No 08/15/2022 Depression Answer Date [...] Sex Assigned at Female 05/11/2022 7:48 AM COMPENSATION/BENEFITS SPECIALIST Legal Sex Female 9:30 PM COMPENSATION/BENEFITS SPECIALIST Gender Identity Female 05/11/2022 7:48 AM COMPENSATION/BENEFITS SPECIALIST Sexual Orientation Straight 05/11/2022 7: 48 AM COMPENSATION/BENEFITS SPECIALIST documented as of this encounter Medications at [...] (Latest Contact Info) Description 05/29/2024 12:15 PM COMPENSATION/BENEFITS SPECIALIST Clinical Communication Virtual Review in [place], [place] [address] [place] [address] 05/31/2024 11:00 AM COMPENSATION/BENEFITS SPECIALIST Appointment Department of Laboratory Medicine and Pathology, [facility], in [place], [place] [address] [place] [phone] Patricia Parker APRN, C.N.P., D.N.P. [address] [place] [phone] 05/31/2024 2:00 PM COMPENSATION/BENEFITS SPECIALIST Comprehensive Visit Preoperative Evaluation Center in [place], [place] [address] [place] [phone] Arianna Jeffries M.D. [address] [place] [phone] 05/31/2024 2:45 PM COMPENSATION/BENEFITS SPECIALIST Comprehensive Visit Preoperative Evaluation Center in [place], [place] [address] [place] [phone] Chris Moreno, JOHNSON, C.N.P., M.S. [address] [place] [phone] 06/03/2024 8:15 AM COMPENSATION/BENEFITS SPECIALIST Hospital Encounter Post Anesthesia Care Unit in [place] [id number] [place] [phone] Tahir Moore M.D. [address] [place] [phone] 06/03/2024 8:15 AM COMPENSATION/BENEFITS SPECIALIST - 06/03/2024 2:12 PM COMPENSATION/BENEFITS SPECIALIST Surgery RST ROMB MAIN OR [address] [place] [phone] Tahir Moore M.D. [address] [place] [phone] C1-2 fusion 07/02/2024 11:00 AM COMPENSATION/BENEFITS SPECIALIST Procedure visit Division of Pain Medicine in [place], [place] [address] [place] [phone] Adam Barlow M.D. 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 No significantenlargement of cardiac silhouette. Cindy Oliva P.A.-C. IMG DIAGNOSTIC IMAGING PROCEDURES Final Result documented in this encounter Visit Diagnoses Diagnosis Regurgitation Mitral Preoperative Examination Cardiovascular Stenosis Spinal documented in this encounter Additional Health Concerns Assessment Noted Time PHQ-9 Depression Total Score: 2 08/03/19 24 9:15 AM CDT documented as of this encounter Care Teams Recreational Therapist Relationship Specialty Start Date End Date Elsewhere, Pcp PCP - General Internal Medicine 05/10/22 documented as of this encounter
--- OUTSIDE RECORDS SUMMARY | 2024-05-21 14:08 | XMS_ITS | Encounter Summary ---
Author Organization [facility] Address [address] [place] [address] Care Team Providers Care Wind Farm Engineer Name Role Phone Elsewhere, Pcp Primary Care Provider Unavailabl e Encounter Details Date Type Department Care Team (Latest Contact Info) Description 08/04/2023 7:45 AM CDT - 08/04/2023 12:46 PM CDT Hospital Encounter Division of Cardiovascular Diseases in [place], [place] [address] [place] [phone] Nicolasa Murray M.D., Ph.D. [address] [place] [phone] Regurgitation Mitral; Preoperative Examination Cardiovascular Discharge Disposition: [...] Answer Date Recorded PHQ-2 Score 0 08/03/2023 [facility] of Occupat ional Health - Occupational Stress [...] Sex Assigned at Female 05/11/2022 7:48 AM RADIATOR CLEANER Legal Sex Female 9:30 PM RADIATOR CLEANER Gender Identity Female 05/11/2022 7:48 AM RADIATOR CLEANER Sexual Orientation Straight 05/11/2022 7: 48 AM RADIATOR CLEANER documented as of this encounter Last Filed Vital Signs Vital Sign Reading Time Taken Comments Blood Pressure 148/86 08/04/2023 12:15 PM CDT Pulse 90 08/04/2023 12:15 PM CDT Temperature 36.8 C (98.2 F) 08/04/2023 8:11 AM CDT Respiratory Rate 10 08/04/2023 9:08 AM CDT Oxygen Saturation 100% 08/04/2023 12: 15 PM CDT Inhaled Oxygen Concentration - - Weight 62.1 kg (136 lb 14.5 oz) 08/04/2023 8:11 AM CDT Height 159.4 cm (5' 2.76) 08/04/2023 8:11 AM CD T Body Mass Index 24.44 08/04/2023 8:11 AM CDT documented in this encounter Discharge Instructions * Attachments The following attachments cannot be sent through Care Everywhere. * Care Following Your Catheter Procedure (Armenian) documented in this encounter Medications at Time [...] (Latest Contact Info) Description 05/29/2024 12:15 PM RADIATOR CLEANER Clinical Communication Virtual Review in [place], [place] 200 [place] [address] 05/31/2024 11:00 AM RADIATOR CLEANER Appointment Department of Laboratory Medicine and Pathology, [facility], in [place], [place] [address] [place] [phone] Patricia Parker APRN, C.N.P., D.N.P. [address] [place] [phone] 05/31/2024 2:00 PM RADIATOR CLEANER Comprehensive Visit Preoperative Evaluation Center in [place], [place] [address] [place] [phone] Arianna Jeffries M.D. [address] [place] [phone] 05/31/2024 2:45 PM RADIATOR CLEANER Comprehensive Visit Preoperative Evaluation Center in [place], [place] [address] [place] [phone] Chris Moreno APRN, Socorro.N.P., M.S. [address] [place] [phone] 06/03/2024 8:15 AM RADIATOR CLEANER Hospital Encounter Post Anesthesia Care Unit in [address] [phone] Tahir Moore M.D. [address] [place] [phone] 06/03/2024 8:15 AM RADIATOR CLEANER - 06/03/2024 2:12 PM RADIATOR CLEANER Surgery RST ROMB MAIN OR [facility] [address] [place] [phone] Tahir Moore M.D. [address] [place] [phone] C1-2 fusion 07/02/2024 11:00 AM RADIATOR CLEANER Procedure visit Division of Pain Medicine in [place], [place] [address] [place] [phone] Adam Barlow M.D. 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 Procedure Note Rosa Justice M.D. - 08/04/2023 For the complete report, [...] report, see the Order-Level Documents. us Cortney E Russell HEALTHCARE RECRUITER, C.N.P., D.N.P. CV CARDIAC CATH PROCEDURES Final Result documented in this encounter Visit Diagnoses Diagnosis Regurgitation Mitral Preoperative Examination Cardiovascular Regurgitation Mitral [...] 8:05 AM CDT 324 mg fentaNYL injection 25 mcg (SUBLIMAZE) 25 mcg, [...] a respiratory rate less than 8 breaths/minute. midazolam (PF) injection 0.25 mg (VERSED) 0.25 [...] a respiratory rate less than 8 breaths/minute. sodium chloride 0.9 % injection 10 mL [...] (Given - Provid er: Lauro Brock R.N., CFRN) NaCl 0.9% infusion (COMPLETED) 3.5 mL/kg/hr 62.1 kg Dosing weight (217.35 mL/hr, rounded to 217 mL/hr), intravenous, Once, On Mon08/04/23 at 0845, For 1 dose, Preprocedure (CV), Administer as soon as possible. Limit total pre-procedure fluid to 1000 mL. 0826 (New Bag - Prov ider: Lauro Brock R.N., CFRN) sodium chloride 0.9 % injection 3 mL [...] 0845 (Given - Provid er: Adam Felipe R.N.) sodium chloride 0.9 % injection 10 [...] documented as of this encounter Care Teams Wind Farm Engineer Relationship Specialty Start Date End Date Elsewhere, Pcp PCP - General Internal Medicine 05/10/22 documented as of this encounter
--- OUTSIDE RECORDS SUMMARY | 2024-05-21 14:09 | XMS_ITS | Encounter Summary ---
Author Organization [facility] Address [address] [place] [phone] Care Team Providers Care Train Clerk Name Role Phone Elsewhere, Pcp Primary Care Provider Unavailabl e Encounter Details Date Type Department Care Team (Late st Contact Info) Description 05/01/2023 6:41 AM LAB ASSOCIATE - 05/01/2023 7:06 AM [facility] Hospital Encounter Department of Laboratory Medicine and Pathology, [facility], in [place], [place] [address] [place] [phone] Nba Murray, JOHNSON, C.N.P., D.N.P. [address] [place] [phone] Nonrheumatic Mitral Valve Insufficiency Discharge Disposition: Home or Self Care Social [...] and heating? Not hard at all 08/15/2022 [facility] [place] of Occupat ional Health - Occupational Stress [...] a senior living (including now)? No 08/15/2022 Nutrition Answer Date [...] Sex Assigned at Female 05/11/2022 7:48 AM LAB ASSOCIATE Legal Sex Female 9:30 PM LAB ASSOCIATE Gender Identity Female 05/11/2022 7:48 AM LAB ASSOCIATE Sexual Orientation Straight 05/11/2022 7: 48 AM LAB ASSOCIATE documented as of this encounter Medications at Time of Discharge allopurinoL (ZYLOPRIM) 300 mg tablet Take 150 mg by mouth daily. 04/14/2021 atorvastatin (LIPITOR) 20 mg tablet Take 20 [...] mouth 4 (four) times a day. 02/28/2023 magnesium oxide (MAG-OX) 400 mg (241.3 mg magnesium) tablet Take 1 tablet by mouth daily. omeprazole (PriLOSEC) [address] capsule Take 20 mg by mouth every morning before breakfast. 04/25/2022 rivaroxaban (XARELTO) 20 mg tablet Take 1 tablet (20 mg total) by mouth daily. Okay to start retaking 1 week after surgery 60 tablet 1 09/07/2022 acetaminophen (TYLENOL) 500 mg tablet Take 2 tablets (1,000 mg total) by mouth every 6 (six) hours as needed for pain for up to 1 dose. 09/02/2022 05/25/19 24 carvediloL (COREG) 6.25 mg tablet Take 12.5 mg by mouth 2 (two) times a day. 01/31/2022 05/25/19 24 folic acid 1 mg tablet Take 1 mg by mouth daily. 05/24/2021 08/01/19 24 furosemide (LASIX) 20 mg tablet Take 20 mg by mouth daily. 10/05/2022 08/11/19 24 gabapentin (NEURONTIN) 300 mg capsule Take 300 mg by mouth 2 (two) times a day. 04/30/2022 0 24 lisinopriL (PRINIVIL,ZESTR IL) 5 mg tablet Take 5 mg by mouth 2 (two) times a day. 04/25/2022 08/11/19 24 omega-3 fatty acids-fish oil 300-1,000 mg per capsule Take 2 g by mouth daily. 11/01/19 24 triamcinolone (KENALOG) 0.1 % ointment Apply 1 Application topically as needed for irritation (bump on the back). 12/28/2020 11/01/19 24 documented as of this encounter Plan of Treatment Upcoming Encounters Date Type Department Care Team (Latest Contact Info) Description 05/29/2024 12:15 PM LAB ASSOCIATE Clinical Communication Virtual Review in [place], [place] 200 [place] [phone] 05/31/2024 11:00 AM LAB ASSOCIATE Appointment Department of Laboratory Medicine and Pathology, [facility], in [place], [place] [address] [place] [phone] Patricia Parker APRN, C.N.P., D.N.P. [address] [place] [phone] 05/31/2024 2:00 PM LAB ASSOCIATE Comprehensive Visit Preoperative Evaluation Center in [place], [place] [address] [place] [phone] Arianna Jeffries M.D. [address] [place] [phone] 05/31/2024 2:45 PM LAB ASSOCIATE Comprehensive Visit Preoperative Evaluation Center in [place], [place] [address] [place] [phone] Chris Moreno APRN, C.N.P., M.S. [address] [place] [phone] 06/03/2024 8:15 AM LAB ASSOCIATE Hospital Encounter Post Anesthesia Care Unit in [place], [place] [address] [place] [phone] Tahir Moore M.D. [address] [place] [phone] 06/03/2024 8:15 AM LAB ASSOCIATE - 06/03/2024 2:12 PM LAB ASSOCIATE Surgery [facility] MAIN OR [address] [place] [phone] Tahir Moore M.D. [address] [place] [phone] C1-2 fusion 07/02/2024 11:00 AM LAB ASSOCIATE Procedure visit Division of Pain Medicine in [place], [place] [address] [place] [phone] Adam Barlow M.D. 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 Blood (Blood, Venous) 05/01/2023 6:58 AM LAB ASSOCIATE 05/01/2023 7:46 AM LAB ASSOCIATE us Nba Murray APRN, C.N.P., D.N.P. LAB BLOOD ADD-ON Final Result [facility] [address] [place] [address], [facility] DTL [facility] [address] [place] [address] documented in this encounter Visit Diagnoses Diagnosis Nonrheumatic Mitral Valve Insufficiency Stenosis Spinal documented in this encounter Care Teams Train Clerk Relationship Specialty Start Date End Date Elsewhere, Pcp PCP - General Internal Medicine 05/10/22 documented as of this encounter
--- OUTSIDE RECORDS SUMMARY | 2024-05-21 14:09 | XMS_ITS | Encounter Summary ---
Author Organization [facility] Address 200 [place] [address] Care Team Providers Care Supervisor Metal Cans Name Role Phone Elsewhere, Pcp Primary Care Provider Unavailabl e Reason for Referral * Outpatient (Routine) - Closed Specialty Diagnoses / Procedures Referred By Contac t Referred To Contact Cardiovascular Surgery Diagnoses Stenosis Mitral Congenital (HCC) Nelson Esqueda M.D. 200 [place] [address] Phone: tel: fax: [facility] Referral ID Status Reason Start Date Expiration Date Visits Re quested Visits Authorized [id number] Closed 04/21/2023 04/20/2024 1 1 BUSINESS SYSTEMS ANALYST * Outpatient (Routine) - Closed Specialty Diagnoses / Procedures Referred By Contac t Referred To Contact Diagnoses Stenosis Mitral Congenital (HCC) Procedures Echo Transesophageal (VIJI) [place] [address] Phone: tel: fax: [facility] Referral ID Status Reason Start Date Expiration Date Visits Re quested Visits Authorized [id number] Closed 04/21/2023 04/20/2024 1 1 BUSINESS SYSTEMS ANALYST Encounter Details Date Type Department Care Team (Late st Contact Info) Description 04/11/2023 Clinical Communication Department of Neurologic Surgery in [place], [place] [address] [place] [phone] Nelson Esqueda M.D. [address] [place] [address] Social History Tobacco Use Types Packs/Day Years [...] and heating? Not hard at all 08/15/[address] [facility] [place] of Occupat ional Health - Occupational Stress [...] Sex Assigned at Female 05/11/2022 7:48 AM LEAD BUSINESS SYSTEMS ANALYST Legal Sex Female 9:30 PM LEAD BUSINESS SYSTEMS ANALYST Gender Identity Female 05/11/2022 7:48 AM LEAD BUSINESS SYSTEMS ANALYST Sexual Orientation Straight 05/11/2022 7: 48 AM LEAD BUSINESS SYSTEMS ANALYST documented as of this encounter Plan of Treatment Upcoming Encounters Date Type Department Care Team (Latest Contact Info) Description 05/29/2024 12:15 PM LEAD BUSINESS SYSTEMS ANALYST Clinical Communication Virtual Review in [address] [phone] 05/31/2024 11:00 AM LEAD BUSINESS SYSTEMS ANALYST Appointment Department of Laboratory Medicine and Pathology, [facility], in [address] [phone] Patricia Parker APRN, C.N.P., D.N.P. [address] [place] [phone] 05/31/2024 2:00 PM LEAD BUSINESS SYSTEMS ANALYST Comprehensive Visit Preoperative Evaluation Center in [address] [phone] Arianna Jeffries M.D. [address] [place] [phone] 05/31/2024 2:45 PM LEAD BUSINESS SYSTEMS ANALYST Comprehensive Visit Preoperative Evaluation Center in [address] [phone] Chris Moreno, JOHNSON, C.N.P., M.S. [address] [place] [phone] 06/03/2024 8:15 AM LEAD BUSINESS SYSTEMS ANALYST Hospital Encounter Post Anesthesia Care Unit in [place], [place] [address] [place] [phone] Tahir Moore M.D. [address] [place] [phone] 06/03/2024 8:15 AM LEAD BUSINESS SYSTEMS ANALYST - 06/03/2024 2:12 PM LEAD BUSINESS SYSTEMS ANALYST Surgery [facility] MAIN OR [address] [place] [phone] Tahir Moore M.D. [address] [place] [phone] C1-2 fusion 07/02/2024 11:00 AM LEAD BUSINESS SYSTEMS ANALYST Procedure visit Division of Pain Medicine in [place], [place] [address] [place] [phone] Adam Barlow M.D. [address] [place] [phone] Scheduled Orders Name Type Priority Associated Diagnoses Order Schedule Echo Transesophageal (VIJI) Echocardiography Routine Stenosis Mitral Congenital (HCC) Expected: 04/21/2023 (Approximate), Expires: 07/20/2024 Scheduled Procedures Name Priority Associated Diagnoses Date/Ti me 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 06/03/2024 8:15 AM LEAD BUSINESS SYSTEMS ANALYST Scheduled Referrals Name Type Priority Associated Diagnoses Order Schedule Cardiovascular Surgery - General consult (clinic) Outpatient Referral Routine Stenosis Mitral Congenital (HCC) Expected: 04/21/2023 (Approximate), Expires: 07/20/2024 documented as of this encounter Visit Diagnoses Diagnosis Stenosis Mitral Congenital (HCC)- Primary Stenosis Spinal documented in this encounter Care Teams Supervisor Metal Cans Relationship Specialty Start Date End Date Elsewhere, Pcp PCP - General Internal Medicine 05/10/22 documented as of this encounter
--- OUTSIDE RECORDS SUMMARY | 2024-05-21 14:09 | XMS_ITS | Encounter Summary ---
Author Organization [facility] Address 200 [place] [address] Care Team Providers Care Dredge Pipe Installer Name Role Phone Elsewhere, Pcp Primary Care Provider Unavailabl e Reason for Referral * Outpatient (Routine) - Closed Specialty Diagnoses / Procedures Referred By Contac t Referred To Contact Neurological Surgery Nelson Esqueda M.D. 200 [place] [address] Phone: tel: fax: [facility] Referral ID Status Reason Start Date Expiration Date Visits Re quested Visits Authorized [id number] Closed 04/07/2023 04/06/2026 1 1 SECURITY ARCHITECT * MRI/CAT/PET Scan (Routine) - Closed Specialty Diagnoses / Procedures Referred By Contac t Referred To Contact Radiology Diagnoses Abnormal Gait Non Orthopedic Procedures MR Cervical Spine without and with IV Contrast Nelson Esqueda M.D. 200 [place] [address] Phone: tel: fax: [facility] Referral ID Status Reason Start Date Expiration Date Visits Re quested Visits Authorized [id number] Closed 04/07/2023 04/06/2024 1 1 SECURITY ARCHITECT * MRI/CAT/PET Scan (Routine) - Closed Specialty Diagnoses / Procedures Referred By Contac t Referred To Contact Radiology Diagnoses Abnormal Gait Non Orthopedic Procedures CT Cervical Spine without IV Contrast Nelson Esqueda M.D. [address] [place] [phone] Phone: tel: fax: [facility] Referral ID Status Reason Start Date Expiration Date Visits Re quested Visits Authorized [id number] Closed 04/07/2023 04/06/2024 1 1 SECURITY ARCHITECT * Outpatient (Routine) - Closed Specialty Diagnoses / Procedures Referred By Contac t Referred To Contact Diagnoses Abnormal Gait Non Orthopedic Procedures DX Cervical Spine 2-3 Views Nelson Esqueda M.D. [address] [place] [phone] Phone: tel: fax: [facility] Referral ID Status Reason Start Date Expiration Date Visits Re quested Visits Authorized [id number] Closed 04/07/2023 04/06/2024 1 1 SECURITY ARCHITECT * MRI/CAT/PET Scan (Routine) - Closed Specialty Diagnoses / Procedures Referred By Contac t Referred To Contact Radiology Diagnoses Fusion Lumbar Spine Status Post Procedures CT Lumbar Spine without IV Contrast Nelson Esqueda M.D. [address] [place] [phone] Phone: tel: fax: [facility] Referral ID Status Reason Start Date Expiration Date Visits Re quested Visits Authorized [id number] Closed 04/07/2023 04/06/2024 1 1 SECURITY ARCHITECT * Outpatient (Routine) - Closed Specialty Diagnoses / Procedures Referred By Contac t Referred To Contact Diagnoses Fusion Lumbar Spine Status Post Procedures DX Lumbar Spine 2-3 Views Nelson Esqueda M.D. [address] [place] [phone] Phone: tel: fax: [facility] Referral ID Status Reason Start Date Expiration Date Visits Re quested Visits Authorized [id number] Closed 04/07/2023 04/06/2024 1 1 SECURITY ARCHITECT Reason for Visit * Outpatient (Routine) - Closed Specialty Diagnoses / Procedures Referred By Chanel segovia Referred To Contact Neurological Surgery Nelson Esqueda M.D. [address] [place] [phone] Phone: tel: fax: [facility] Referral ID Status Reason Start Date Expiration Date Visits Re quested Visits Authorized [id number] Closed 01/04/2023 01/03/2026 1 1 Encounter Details Date Type Department Care Team (Late st Contact Info) Description 04/06/2023 3:00 PM IT SECURITY ARCHITECT Telemedicine Department of Neurologic Surgery in [place], [place] [address] [place] [phone] Nelson Esqueda M.D. [address] [place] [phone] Fusion Lumbar Spine Status Post (Primary Dx); Abnormal Gait Non Orthopedic Social History Tobacco Use Types Packs/Day Years [...] any clubs o r organizations such as adventist groups, unions, fraternal or athletic groups, or [...] and heating? Not hard at all 08/15/2022 [facility] [place] of Occupat ional Health - Occupational Stress [...] Sex Assigned at Female 05/11/2022 7:48 AM IT SECURITY ARCHITECT Legal Sex Female 9:30 PM IT SECURITY ARCHITECT Gender Identity Female 05/11/2022 7:48 AM IT SECURITY ARCHITECT Sexual Orientation Straight 05/11/2022 7: 48 AM IT SECURITY ARCHITECT documented as of this encounter Progress Notes * Nelson Esqueda M.D. - 04/06/2023 3:00 PM CST CHIEF COMPLAINT / REASON FOR VISIT Gladys Zamarripa is a 72 y.o. female who presents for follow-up. HISTORY OF PRESENT ILLNESS Mrs. Zamarripa is a 72-year-old female, accompanied by her , who is approximately 7 months status post L3-S1 posterior lumbar instrumented fusion and L3-4 and L4-5 transforaminal lumbar interbody fusion. The patient reports that she is doing well overall. She still has some bilateral foot numbn ess/tingling/proprioception deficits, these are improved relative to the last time I visited with her. She denies any new weakness. She denies any bowel or bladder symptoms. She does endorse difficulty with gait and dexterity in her hands and has known cervical stenosis, most recent MRI c spine is 2020. OBJECTIVE PHYSICAL EXAM Deferrred, video visit DIAGNOSTICS Most recent lumbar spine xrays were obtained in late February, not available for review in qreads atthe time of writing this. PLAN: Followup in 6 months from now with a video visit and lumbar xrays and CT wo as well as cervical MRIw/wo, xrays, CT wo to evaluate for cervical stenosis as a culprit for her gait difficulties and hand dexterity issues. I will review her lumbar xrays once they become available to me. The patient was in agreement. All questions were answered. I spent 10 minutes in consultation with the patient, >50% of this time was spent in counseling and coordination of care. All questions were answered, and the patient/family demonstrated agreement with the plan. Realistic expectations were provided. There were no barriers to our conversation. SECURITY ARCHITECT documented in this encounter Miscellaneous Notes * Addendum Note - Reinier Maciel R.N. - 04/06/2023 3:00 PM CSTAddended by: REINIER MACIEL on: 04/07/2023 10:22 AM Modules accepted: Orders SECURITY ARCHITECT documented in this encounter Plan of Treatment Upcoming Encounters Date Type Department Care Team (Latest Contact Info) Description 05/29/2024 12:15 PM IT SECURITY ARCHITECT Clinical Communication Virtual Review in [place], [place] 200 [place] [phone] 05/31/2024 11:00 AM IT SECURITY ARCHITECT Appointment Department of Laboratory Medicine and Pathology, [facility], in [place], [place] [address] [place] [phone] Patricia Parker APRN, C.N.P., D.N.P. [address] [place] [phone] 05/31/2024 2:00 PM IT SECURITY ARCHITECT Comprehensive Visit Preoperative Evaluation Center in [place], [place] [address] [place] [phone] Arianna Jeffries M.D. [address] [place] [phone] 05/31/2024 2:45 PM IT SECURITY ARCHITECT Comprehensive Visit Preoperative Evaluation Center in [address] [phone] Chris Moreno APRN, C.N.P., M.S. [address] [place] [phone] 06/03/2024 8:15 AM IT SECURITY ARCHITECT Hospital Encounter Post Anesthesia Care Unit in [address] [phone] Tahir Moore M.D. [address] [place] [phone] 06/03/2024 8:15 AM IT SECURITY ARCHITECT - 06/03/2024 2:12 PM IT SECURITY ARCHITECT Surgery [facility] MAIN OR [address] [place] [phone] Tahir Moore M.D. [address] [place] [phone] C1-2 fusion 07/02/2024 11:00 AM IT SECURITY ARCHITECT Procedure visit Division of Pain Medicine in [place], [place] [address] [place] [phone] Adam Barlow M.D. [address] [place] [phone] Scheduled Procedures Name Priority Associated Diagnoses Date/Ti me 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 06/03/2024 8:15 AM IT SECURITY ARCHITECT Scheduled Referrals Name Type Priority Associated Diagnoses Order Schedule Neurological Surgery office visit (clinic) Outpatient Referral Routine Expect ed: 10/06/2023 (Approximate), Expires: 07/08/2024 documented as of this encounter Results * MR Cervical Spine without and with IV Contrast (04/08/2024 10:59 AM IT SECURITY ARCHITECT) Anatomical Region Laterality Modality Spine, Cervical Spine, Neuro radiology [facility], Neuroradiology [facility], Neuroradiology [facility] N/A Magneti c Resonance Impressions 04/08/2024 11:21 AM IT SECURITY ARCHITECT 1. Enlargement of the pannus posterior to the dens, now with moderate-advanced narrowing of the spinal canal at C2 and cord deformity. 2. Advanced spinal canal narrowing at L3-L4 has progressed. 3. Interval postsurgical changes at L4-S2 with improved spinal canal narrowing at these levels. 4. Moderate-advanced bilateral C4-C5 and C5-C6 neural foraminal narrowing. 5. Transitional anatomy, as described. Narrative 04/08/2024 11:21 AM IT SECURITY ARCHITECT EXAM: MR LUMBAR SPINE WITHOUT AND WITH [...] anatomy, as described. us Nelson Esqueda M.D. [facility] MRI PROCEDURES Final Result * CT Cervical Spine without IV Contrast (04/08/2024 8:44 AM IT SECURITY ARCHITECT) Anatomical Region Laterality Modality Cervical Spine, Neuroradiolo gy [facility], [facility]iology [facility], Neur[facility]iology [facility] N/A Computed Tomography, Compute d Tomography 04/08/2024 8:34 AM IT SECURITY ARCHITECT Impressions 04/08/2024 8:56 AM IT SECURITY ARCHITECT 1. Moderate canal narrowing C5-6. 2. Foraminal narrowings most advanced at C4-5 and C5-6. 3. 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 Narrative 04/08/2024 8:56 AM IT SECURITY ARCHITECT EXAM: CT CERVICAL SPINE WITHOUT IV CONTRAST [...] effect on the cervicalmedullary junction. us Nelson M Dheeraj M.D. IMG CT PROCEDURES Final Result * CT Lumbar Spine without IV Contrast (04/08/2024 8:44 AM IT SECURITY ARCHITECT) Anatomical Region Laterality Modality Lumbar Spine, Neuroradiology [facility], Neuroradiology [facility], Neuroradiology [facility] N/A Computed Tomography, Compute d Tomography Impressions 04/08/2024 9:20 AM IT SECURITY ARCHITECT 1. Redemonstrated postsurgical changes of posterior spinal [...] study from 05/01/2023 Narrative 04/08/2024 9:20 AM IT SECURITY ARCHITECT EXAM: CT LUMBAR SPINE WITHOUT IV CONTRAST [...] vertebral bodies. The current study extends from [id number] S2-S3 level. There is mild levocurvature of [...] CT studyfrom 05/01/2023 us Nelson Esqueda M.D. [facility] CT PROCEDURES Final Result * DX Cervical Spine 2-3 Views (04/08/2024 8:15 AM IT SECURITY ARCHITECT) Anatomical Region Laterality Modality Cervical Spine, Musculoskele ambar [facility], Neuroradiology [facility], Muskuloskeletal [facility] N/A Digita l Radiography Impressions 04/08/2024 8:47 AM IT SECURITY ARCHITECT Narrowing of the C4 through C7 interspaces. Mild anterolisthesis of C2, C3 and C7. Moderate-advanced facet and uncovertebral arthritis. Carotid calcifications. Little change since 09/22/2020. Narrative 04/08/2024 8:47 AM IT SECURITY ARCHITECT EXAM: DX CERVICAL SPINE 2-3 VIEWS Procedure Note Kriss Raines M.D. - 04/08/2024 EXAM: DX CERVICAL SPINE 2-3 VIEWS IMPRESSION: Narrowing of the C4 through C7 interspaces. Mild anterolisthesis of C2, C3and C7. Moderate-advanced facet and uncovertebral arthritis. Carotidcalcifications. Little change since 09/22/2020. us Nelson Esqueda M.D. [facility] DIAGNOSTIC IMAGING P ROCEDURES Final Result * DX Lumbar Spine 2-3 Views (04/08/2024 8:15 AM IT SECURITY ARCHITECT) Anatomical Region Laterality Modality Lumbar Spine, Musculoskeleta l [facility], Neuroradiology [facility], [facility] N/A Digital Radiography Impressions 04/08/2024 8:52 AM IT SECURITY ARCHITECT Assuming a tiny riblet at T12, there [...] Pelvic surgical clips. Narrative 04/08/2024 8:52 AM IT SECURITY ARCHITECT EXAM: DX LUMBAR SPINE 2-3 VIEWS Procedure [...] sacrum. Vascular calcifications. Pelvic surgical clips. [facility] P ROCEDURES Final Result documented in this encounter Visit Diagnoses Diagnosis Fusion Lumbar Spine Status Post- Primary Abnormal Gait Non Orthopedic Fusion Lumbar Spine Status Post Abnormal Gait Non Orthopedic Abnormal Gait Non Orthopedic Fusion Lumbar Spine Status Post Abnormal Gait Non Orthopedic Fusion Lumbar Spine Status Post Stenosis Spinal documented in this encounter Care Teams Dredge Pipe Installer Relationship Specialty Start Date End Date Elsewhere, Pcp PCP - General Internal Medicine 05/10/22 documented as of this encounter
--- OUTSIDE RECORDS SUMMARY | 2024-05-21 14:09 | XMS_ITS | Encounter Summary ---
Author Organization [facility] Address [address] [place] [address] Care Team Providers Care Designer/Writer Name Role Phone Elsewhere, Pcp Primary Care Provider Unavailabl e Reason for Referral * MRI/CAT/PET Scan (Routine) - Closed Specialty Diagnoses / Procedures Referred By Contac t Referred To Contact Radiology Diagnoses Nonrheumatic Mitral Valve Insufficiency Procedures CT Cardiac Angiogram Structural Heart with Coronary Arteries with IV Contrast Nba Murray APRN, C.N.P., D.N.P. [address] [place] [phone] Phone: tel: fax: [facility] Referral ID Status Reason Start Date Expiration Date Visits Re quested Visits Authorized [id number] Closed 04/24/2023 04/23/2024 1 1 OENGRAVING PROOFER Encounter Details Date Type Department Care Team (Late st Contact Info) Description 04/24/2023 3:30 PM PHOTOENGRAVING PROOFER Office Visit Department of Cardiovascular Surgery in [place], [place] [address] [place] [phone] Nba Murray APRN, C.N.P., D.N.P. [address] [place] [phone] Nonrheumatic Mitral Valve Insufficiency (Primary Dx) Social History Tobacco Use Types [...] week 08/15/2022 [facility] often do you attend [facility]? More than 4 times per year [...] and heating? Not hard at all 08/15/2022 [facility] Occupational Stress Questionnaire Answer Date [...] place to sleep or slept in a intermediate (including now)? No 08/15/2022 Nutrition Answer Date [...] Sex Assigned at Female 05/11/2022 7:48 AM PHOTOENGRAVING PROOFER Legal Sex Female 9:30 PM PHOTOENGRAVING PROOFER Gender Identity Female 05/11/2022 7:48 AM PHOTOENGRAVING PROOFER Sexual Orientation Straight 05/11/2022 7: 48 AM PHOTOENGRAVING PROOFER documented as of this encounter Progress Notes * Nba Murray APRN, C.N.P., D.N.P. - 04/24/2023 3:30 PM CST Patient not seen. The patient was seen by Dr. Rutledge. Surgery at this time has not been scheduled I have ordered a CTA chest abdomen and pelvis for robotic approach. I have instructed the patient toensure she is dental cleared for valve surgery. I have provided her with all the here now paperworkand folder. We will have the patient complete the CT with a follow-up with our robotic surgeon. I personally spent 10 minutes in review of the patient's record today. Time includes non face to face patient care. OENGRAVING PROOFER documented in this encounter Plan of Treatment Upcoming Encounters Date Type Department Care Team (Latest Contact Info) Description 05/29/2024 12:15 PM PHOTOENGRAVING PROOFER Clinical Communication Virtual Review in [place], [place] [address] [place] [phone] 05/31/2024 11:00 AM PHOTOENGRAVING PROOFER Appointment Department of Laboratory Medicine and Pathology, [facility], in [place], [place] [address] [place] [phone] Patricia Parker APRN, C.N.P., D.N.P. [address] [place] [phone] 05/31/2024 2:00 PM PHOTOENGRAVING PROOFER Comprehensive Visit Preoperative Evaluation Center in [place], [place] [address] [place] [phone] Arianna Jeffries M.D. [address] [place] [phone] 05/31/2024 2:45 PM PHOTOENGRAVING PROOFER Comprehensive Visit Preoperative Evaluation Center in [place], [place] [address] [place] [phone] Chris Moreno, JOHNSON, C.N.P., M.S. [address] [place] [phone] 06/03/2024 8:15 AM PHOTOENGRAVING PROOFER Hospital Encounter Post Anesthesia Care Unit in [place], [place] [address] [place] [phone] Tahir Moore M.D. [address] [place] [phone] 06/03/2024 8:15 AM PHOTOENGRAVING PROOFER - 06/03/2024 2:12 PM PHOTOENGRAVING PROOFER Surgery [facility] [address] [place] [phone] Tahir Moore M.D. [address] [place] [phone] C1-2 fusion 07/02/2024 11:00 AM PHOTOENGRAVING PROOFER Procedure visit Division of Pain Medicine in [place], [place] [address] [place] [phone] Adam Barlow M.D. 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 Prolapse of the posterior leaflet of the mitral valve. 2. Mild LAD stenosis in the proximal and mid segments. Minimal stenosis in the proximal circumflex. Mid and distal RCA are nonevaluable. CAD-RADS category N. 3. Up to minimally stenotic calcifications in the infrarenal abdominal aorta. Variant aortic arch branching with the right subclavian artery arising as the last branch of the aortic arch (arteria lusoria). 4. Normal abdominal venous vasculature. Narrative 05/01/2023 10:55 AM PHOTOENGRAVING PROOFER REVISED REPORT: EXAM: CT CARDIAC ANGIO STRUCTURAL HEART W MILLIE ARTERIES W IV CONTRAST, CT ABDOMEN PELVIS ANGIOGRAM WITH IV CONTRAST ECG-gated CT angiogram of the chest and heart, including independent workstation 3D reformations followed by CT angiogram of the abdomen and pelvis. COMPARISON: None CARDIOVASCULAR FINDINGS: Motion artifacts due to arrhythmia preclude detailed interpretation of wall motion abnormalities and lead to nondiagnostic evaluation of some coronary segments. MITRAL VALVE/ANNULUS: Leaflet anatomy: Mildly thickness. Leaflet calcification: No leaflet calcification. Prolapse: Posterior leaflet prolapse. Please see the additional screen capture from series 9. Annular dysjunction: Absent Mitral annular calcification: No mitral annular calcification. Subvalvular anatomy: Normal Subvalvular calcification: Trace calcifications in the anterolateral papillary muscle tendons. Other findings: None CORONARY ARTERIES: Image Quality: Moderate. Some segments are nonevaluable due to motion artifacts. Origins/course: Conventional origin and course of the coronary arteries. Small caliber ramus intermedius. Dominance: Right Left Main Coronary: Widely patent without detectable plaque. Left Anterior Descending: Proximal and mid LAD shows partially calcified plaque resulting in up to mild stenosis. Distal LAD is patent. Patent diagonal branches. Ramus: Patent without detectable plaque or stenosis Left Circumflex: Trace calcifications proximally result in minimal stenosis. Otherwise patent without detectable plaque or stenosis, including obtuse marginal branches. Right Coronary: Patent proximally without detectable plaque or stenosis. The distal RCA and posterior descending and posterolateral branches are nonevaluable due to motion artifacts. OTHER CARDIAC FINDINGS: Mild left ventricular enlargement. Wall motion abnormalities not evaluable in detail due to arrhythmia at the time of acquisition. Qualitatively mildly reduced systolic biventricular function. No first pass perfusion defects. Moderate left atrial enlargement. Normal right ventricular size. Normal right atrial size. Dorsomedial left atrial diverticulum. Normal pericardium. No pericardial effusion. No intracardiac mass or thrombus. ARTERIAL VASCULATURE: Normal caliber thoracic and abdominal aorta. Trace calcifications in the aortic arch and descending thoracic aorta without stenosis. Minimally stenotic calcifications in the infrarenal abdominal aorta and bilateral common iliac arteries. External iliac arteries and common femoral arteries are widely patent bilaterally. Trace, minimally stenotic calcifications in the bilateral internal iliac arteries. Left-sided aortic arch with variant branching with the right subclavian artery arising as the last branch of the aortic arch (arteria lusoria). The right common carotid and left common carotid arteries are widely patent within the [id number]. Mildly stenotic calcified plaque about the origin of the left subclavian artery. There are minimally stenotic partially calcified plaques in the proximal right subclavian artery. Mild dilatation of the right proximal subclavian artery to a maximum of 17 mm. No significant Kommerell diverticulum. Mild ostial stenosis of the celiac artery due to extrinsic compression by diaphragmatic althea. Widely patent superior mesenteric artery. Mild stenosis of the inferior mesenteric artery ostium which is otherwise widely patent. Bilateral renal arteries show ostial calcified plaque resulting in mild stenosis. Tiny caliber accessory right renal artery is patent. Main and branch main pulmonary artery dilatation to a maximum diameter of 38 mm of the distal main pulmonary artery. VENOUS VASCULATURE: The inferior vena cava and bilateral common and external iliac veins are patent with normal anatomy. 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 ADDITIONAL FINDINGS: CHEST: Widely patent central airways. No suspicious pulmonary masses or nodules. Minimal dependent atelectasis in both lower lobes. ABDOMEN: Simple cyst in segment 3 of the left hepatic lobe. Gallbladder, spleen, bilateral adrenals and kidneys are unremarkable. Sigmoid diverticulosis. Bowels are otherwise of normal caliber. Uterine fibroids. Fatty atrophy of the pancreas. OSSEOUS STRUCTURES: Hypertrophic degenerative changes of the thoracic and lumbar spine. No suspicious or acute osseous lesions. Postoperative changes after spinal instrumentation involving the L3-S1 levels. Bilateral atrophy of the gluteus musculature. CAD-RADS CATEGORIES: CORONARY STENOSIS: (based on most severe single lesion) 0: 0%, No stenosis 1: 1-24%, Minimal stenosis 2: 25-49%, Mild stenosis 3: 50-69%, Moderate stenosis 4: 70-99%, Severe stenosis 5: 100%, Occluded CORONARY PLAQUE: (based on overall plaque burden) P1: Mild plaque P2: Moderate plaque P3: Severe plaque P4: Extensive plaque MODIFIERS: N: Non-diagnostic segment(s) S: Stent G: Graft HRP: High-risk plaque (two or more of the following: spotty calcifications, low attenuation plaque, positive remodeling, napkin ring sign) E: Exceptions (including coronary dissection, anomaly, aneurysm, fistula, etc.) Procedure Note Nelson Pelaez M.D., Ph.D. - 06/01/2023 REVISED REPORT: EXAM: CT CARDIAC ANGIO STRUCTURAL HEART W MILLIE ARTERIES W IV CONTRAST, CTABDOMEN PELVIS ANGIOGRAM WITH IV CONTRAST ECG-gated CT angiogram of the chest and heart, including independentworkstation 3D reformations followed by CT angiogram of the abdomen andpelvis. COMPARISON: None CARDIOVASCULAR FINDINGS: Motion artifacts due to arrhythmia preclude detailed interpretation ofwall motion abnormalities and lead to nondiagnostic evaluation of somecoronary segments. MITRAL VALVE/ANNULUS: Leaflet anatomy: Mildly thickness. Leaflet calcification: No leaflet calcification. Prolapse: Posterior leaflet prolapse. Please see the additional screencapture from series 9. Annular dysjunction: Absent Mitral annular calcification: No mitral annular calcification. Subvalvular anatomy: Normal Subvalvular calcification: Trace calcifications in the anterolateralpapillary muscle tendons. Other findings: None CORONARY ARTERIES: Image Quality: Moderate. Some segments are nonevaluable due to motionartifacts. Origins/course: Conventional origin and course of the coronary arteries.Small caliber ramus intermedius. Dominance: Right Left Main Coronary: Widely patent without detectable plaque. Left Anterior Descending: Proximal and mid LAD shows partially calcifiedplaque resulting in up to mild stenosis. Distal LAD is patent. Patentdiagonal branches. Ramus: Patent without detectable plaque or stenosis Left Circumflex: Trace calcifications proximally result in minimalstenosis. Otherwise patent without detectable plaque or stenosis,including obtuse marginal branches. Right Coronary: Patent proximally without detectable plaque or stenosis.The distal RCA and posterior descending and posterolateral branches arenonevaluable due to motion artifacts. OTHER CARDIAC FINDINGS: Mild left ventricular enlargement. Wall motion abnormalities not evaluablein detail due to arrhythmia at the time of acquisition. Qualitativelymildly reduced systolic biventricular function. No first pass perfusiondefects. Moderate left atrial enlargement. Normal right ventricular size. Normal right atrial size.Dorsomedial left atrial diverticulum. Normal pericardium. No pericardial effusion. No intracardiac mass orthrombus. ARTERIAL VASCULATURE: Normal caliber thoracic and abdominal aorta. Trace calcifications in theaortic arch and descending thoracic aorta without stenosis. Minimallystenotic calcifications in the infrarenal abdominal aorta and bilateralcommon iliac arteries. External iliac arteries and common femoral arteries are widely patent bilaterally. Trace,minimally stenotic calcifications in the bilateral internal iliacarteries. Left-sided aortic arch with variant branching with the right subclavianartery arising as the last branch of the aortic arch (arteria lusoria).The right common carotid and left common carotid arteries are widelypatent within the [id number]. Mildly stenotic calcified plaque about the origin of the left subclavian artery.There are minimally stenotic partially calcified plaques in the proximalright subclavian artery. Mild dilatation of the right proximal subclavianartery to a maximum of 17 mm. No significant Kommerell diverticulum. Mild ostial stenosis of the celiac artery due to extrinsic compression bydiaphragmatic althea. Widely patent superior mesenteric artery. Mildstenosis of the inferior mesenteric artery ostium which is otherwisewidely patent. Bilateral renal arteries show ostial calcified plaque resulting in mildstenosis. Tiny caliber accessory right renal artery is patent. Main and branch main pulmonary artery dilatation to a maximum diameter of38 mm of the distal main pulmonary artery. VENOUS VASCULATURE: The inferior vena cava and bilateral common and external iliac veins arepatent with normal anatomy. Incomplete expansion of the intrahepatic andsuprarenal IVC, likely positional. ADDITIONAL FINDINGS: CHEST: Widely patent central airways. No suspicious pulmonary masses or nodules.Minimal dependent atelectasis in both lower lobes. ABDOMEN: Simple cyst in segment 3 of the left hepatic lobe. Gallbladder, spleen,bilateral adrenals and kidneys are unremarkable. Sigmoid diverticulosis.Bowels are otherwise of normal caliber. Uterine fibroids. Fatty atrophy ofthe pancreas. OSSEOUS STRUCTURES: Hypertrophic degenerative changes of the thoracic and lumbar spine. Nosuspicious or acute osseous lesions. Postoperative changes after spinalinstrumentation involving the L3-S1 levels. Bilateral atrophy of thegluteus musculature. CAD-RADS CATEGORIES: CORONARY STENOSIS: (based on most severe single lesion) 0: 0%, No stenosis 1: 1-24%, Minimal stenosis 2: 25-49%, Mild stenosis 3: 50-69%, Moderate stenosis 4: 70-99%, Severe stenosis 5: 100%, Occluded CORONARY PLAQUE: (based on overall plaque burden) P1: Mild plaque P2: Moderate plaque P3: Severe plaque P4: Extensive plaque MODIFIERS: N: Non-diagnostic segment(s) S: Stent G: Graft HRP: High-risk plaque (two or more of the following: spottycalcifications, low attenuation plaque, positive remodeling, napkin ringsign) E: Exceptions (including coronary dissection, anomaly, aneurysm, fistula,etc.) IMPRESSION: 1. Prolapse of the posterior leaflet of the mitral valve. 2. Mild LAD stenosis in the proximal and mid segments. Minimal stenosis inthe proximal circumflex. Mid and distal RCA are nonevaluable. CAD-RADScategory N. 3. Up to minimally stenotic calcifications in the infrarenal abdominalaorta. Variant aortic arch branching with the right subclavian arteryarising as the last branch of the aortic arch (arteria lusoria). 4. Normal abdominal venous vasculature. Nba Murray APRN, C.N.P., D.N.P. IMG CT IL OCEDURES Edited Result - Final * (ABNORMAL) Creatinine with Estimated GFR (05/01/2023 6:58 AM PHOTOENGRAVING PROOFER) Creatinine 1.05(H) 0.59 - 1.04 mg/dL 05/01/2023 8:14 AM PHOTOENGRAVING PROOFER DTL Estimated GFR (eGFR) 56(L) >=60 mL/min/BSA 05/01/2023 8:14 AM PHOTOENGRAVING PROOFER DTL Comment: Estimated GFR calculated using the 2020 CKD_EPI creatinine equation. Blood (Blood, Venous) 05/01/2023 6:58 AM PHOTOENGRAVING PROOFER 05/01/2023 7:46 AM PHOTOENGRAVING PROOFER us Nba Murray APRN, C.N.P., D.N.P. LAB BLOOD ADD-ON Final Result [facility] [address] [place] [address], [facility] [address] [place] [address] documented in this encounter Visit Diagnoses Diagnosis Nonrheumatic Mitral Valve Insufficiency- Primary Nonrheumatic Mitral Valve Insufficiency Stenosis Spinal documented in this encounter Care Teams Designer/Writer Relationship Specialty Start Date End Date Elsewhere, Pcp PCP - General Internal Medicine 05/10/22 documented as of this encounter
--- OUTSIDE RECORDS SUMMARY | 2024-05-21 14:09 | XMS_ITS | Encounter Summary ---
Author Organization [facility] Address [address] [place] [address] Care Team Providers Care Kick Plate Installer Name Role Phone Elsewhere, Pcp Primary Care Provider Unavailabl e Reason for Referral * MRI/CAT/PET Scan (Routine) - Closed Specialty Diagnoses / Procedures Referred By Contac t Referred To Contact Radiology Diagnoses Nonrheumatic Mitral Valve Insufficiency Procedures CT Cardiac Angiogram Structural Heart with Coronary Arteries with IV Contrast Nba Murray APRN, C.N.P., D.N.P. [address] [place] [address] Phone: tel: fax: [facility] Referral ID Status Reason Start Date Expiration Date Visits Re quested Visits Authorized [id number] Closed 04/24/2023 04/23/2024 1 1 R OPERATOR HELPER Reason for Visit * MRI/CAT/PET Scan (Routine) - Closed Specialty Diagnoses / Procedures Referred By Contac t Referred To Contact Radiology Diagnoses Nonrheumatic Mitral Valve Insufficiency Procedures CT Abdomen Pelvis Angiogram with IV Contrast CT Chest Abdomen Pelvis Angiogram with IV Contrast Nba Murray APRN, C.N.P., D.N.P. [address] [place] [address] Phone: tel: fax: [facility] Referral ID Status Reason Start Date Expiration Date Visits Re quested Visits Authorized [id number] Closed 04/24/2023 04/23/2024 1 1 Encounter Details Date Type Department Care Team (Late st Contact Info) Description 05/01/2023 7:07 AM DRIER OPERATOR HELPER - 05/01/2023 11:59 PM [facility] [[email or web address] Hospital Encounter Department of Radiology, [facility], in [place], [place] [address] [place] [address] Nba Murray, JOHNSON, C.N.P., D.N.P. [address] [place] [address] Nonrheumatic Mitral Valve Insufficiency Discharge Disposition: Home [...] any clubs o r organizations such as protestant groups, unions, fraternal or athletic groups, or [...] and heating? Not hard at all 08/15/2022 [facility] [place] of Occupat ional Health - Occupational Stress [...] place to sleep or slept in a group home (including now)? No 08/15/2022 Nutrition Answer [...] Sex Assigned at Female 05/11/2022 7:48 AM DRIER OPERATOR HELPER Legal Sex Female 9:30 PM DRIER OPERATOR HELPER Gender Identity Female 05/11/2022 7:48 AM DRIER OPERATOR HELPER Sexual Orientation Straight 05/11/2022 7: 48 AM DRIER OPERATOR HELPER documented as of this encounter Last Filed Vital Signs Vital Sign Reading Time Taken Comments Blood Pressure 137/94 05/01/2023 8:43 AM DRIER OPERATOR HELPER Pulse 121 05/01/2023 8:43 AM DRIER OPERATOR HELPER Temperature - - Respiratory Rate - - Oxygen Saturation - - Inhaled Oxygen Concentration - - Weight 59 kg (130 lb 1.1 oz) 05/01/2023 8:09 AM DRIER OPERATOR HELPER Height 159.9 cm (5' 2.95) 05/01/2023 8:09 AM CS T Body Mass Index 23.08 05/01/2023 8:09 AM DRIER OPERATOR HELPER documented in this encounter Medications at Time [...] 11/01/19 24 documented as of this encounter Nursing Notes * Hali Juan R.N. - 05/01/2023 8:[address] Cardiac Metoprolol (Lopressor) Administration Screening: Does patient have an allergy or hypersensitivity to beta-blockers? NO If no, continue. User message: Beta-Blockers & Calcium Channel Blockers: Acebutolol (Sectral); Atenolol (Tenormin); Betaxolol (Kerlone); Bisoprolol (Zebeta); Carvedilol (Coreg); Esmolol (Brevibloc); Labetalol (Trandate); Metoprolol (Toprol); Nadolol (Corgard); Nebivolol (Bystolic); Penbutolol (Levatol); Pindolol (Visken); Propranolol (Inderal); Sotalol (Betapace); Diltiazem (Cardizem); VeraPAMIL (Isoptin, Calan). Is patients heart rate greater than target heart rate, as indicated in eScoop? YES If yes, continue Is patients systolic blood pressure greater than appropriate level per age (see medication reference document for specifics) YES If yes, continue Is patient currently on a beta-sheridan infusion or calcium channel sheridan infusion? NO If no, continue. Is patient or ? NO If no, continue. Does patient have history of asthma or reactive airway disease? NO If no, continue. Does patient have history of congestive heart failure class III or IV or documented EF less than 40%? YES If no, continue. Does patient have history of 2nd or 3rd degree heart block? NO If no, continue. Does patient have a permanent pacemaker? NO If yes, is patient???s pacemaker rate set higher than radiologist suggested rate? NO If yes, done - notify radiologist, if no, is patient 18 years old or older? NO If no, continue and administer meds. CT Cardiac Nitroglycerin Administration Screening: Is patient scheduled for a radiology exam with nitroglycerin? YES If yes, continue. Is patient???s systolic blood pressure greater than appropriate level per age (per table in med refdocument)? YES If yes, continue. Does patient report a history of know hypersensitivity to nitroglycerin? NO If no, continue. Does patient report having a history of aortic stenosis or hypertrophic cardiomyopathy (HOCM)? NO If no, continue. Is patient currently wearing a nitroglycerin patch or has taken isosorbide dinitrate or isosorbide mononitrate in the past 48 hours? NO If no, continue. Has patient taken Sildenafil (Viagra) or (Revatio), Vardenafil (Levitra), Tadalafil (Cialis) or (Adcirca) within 48 hours? NO If no, continue. User message: Nitro is administered in scan room according to scanning sequence. R OPERATOR HELPER documented in this encounter Plan of Treatment Upcoming Encounters Date Type Department Care Team (Latest Contact Info) Description 05/29/2024 12:15 PM DRIER OPERATOR HELPER Clinical Communication Virtual Review in [address] [phone] 05/31/2024 11:00 AM DRIER OPERATOR HELPER Appointment Department of Laboratory Medicine and Pathology, [facility], in [address] [phone] Patricia Parker APRN, C.N.P., D.N.P. [address] [place] [phone] 05/31/2024 2:00 PM DRIER OPERATOR HELPER Comprehensive Visit Preoperative Evaluation Center in [address] [phone] Arianna Jeffries M.D. [address] [place] [phone] 05/31/2024 2:45 PM DRIER OPERATOR HELPER Comprehensive Visit Preoperative Evaluation Center in [address] [phone] Chris Moreno APRN, C.N.P., M.S. [address] [place] [phone] 06/03/2024 8:15 AM DRIER OPERATOR HELPER Hospital Encounter Post Anesthesia Care Unit in [place], [place] [address] [place] [phone] Tahir Moore M.D. [address] [place] [phone] 06/03/2024 8:15 AM DRIER OPERATOR HELPER - 06/03/2024 2:12 PM DRIER OPERATOR HELPER Surgery [facility] MAIN OR [address] [place] [phone] Tahir Moore M.D. [address] [place] [address] [phone] C1-2 fusion 07/02/2024 11:00 AM DRIER OPERATOR HELPER Procedure visit Division of Pain Medicine in [place], [place] [address] [place] [phone] Adam Barlow M.D. [address] [place] [phone] Scheduled Orders Name Type Priority Associated Diagnoses Orde r Schedule Creatinine, POCT Point of Care Testing-Docked Device Routine Routine lab collecti on (next collection) for 1 Occurrences starting 05/01/2023 until 05/01/2023 Scheduled Procedures Name Priority Associated Diagnoses Date/Ti me 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 06/03/2024 8:15 AM DRIER OPERATOR HELPER documented as of this encounter Procedures Procedure Name Priority Date/Time Associated Diagnosis Comments CT CARDIAC ANGIO STRUCTURAL HEART W MILLIE ARTERIES W IV CONTRAST RAD - Routine (most inpatients and all outpatients) 05/01/2023 9:32 AM DRIER OPERATOR HELPER Nonrheumatic Mitral Valve Insufficiency CT ABDOMEN PELVIS ANGIOGRAM WITH IV CONTRAST RAD - Routine (most inpatients and all outpatients) 05/01/2023 9:32 AM DRIER OPERATOR HELPER Nonrheumatic Mitral Valve Insufficiency CREATININE, POCT, B Routine 05/01/2023 7:49 AM DRIER OPERATOR HELPER CREATININE, POCT, B Routine 05/01/2023 7:49 AM DRIER OPERATOR HELPER documented in this encounter Results * CT Abdomen Pelvis Angiogram with IV Contrast (05/01/2023 9:32 AM DRIER OPERATOR HELPER) Anatomical Region Laterality Modality Abdomen, Pelvis, Cardiovascu lar RST LOS, Abdominal ARZ LOS, Vascular Interventional ARZ LOS, Abdominal FLA LOS, Vascular Interventional FLA LOS, Procedural, Vascular Interventional NWWI LOS N/A Computed Tomography, Compute d Tomography 05/01/2023 9:22 AM DRIER OPERATOR HELPER Impressions 05/01/2023 10:55 AM DRIER OPERATOR HELPER 1. Prolapse of the posterior leaflet of [...] abdominal venous vasculature. Narrative 05/01/2023 10:55 AM DRIER OPERATOR HELPER REVISED REPORT: EXAM: CT CARDIAC ANGIO STRUCTURAL [...] carotid arteries are widely patent within the [id number]. Mildly stenotic calcified plaque about the origin [...] common carotid arteries are widelypatent within the [id number]. Mildly stenotic calcified plaque about the origin [...] (arteria lusoria). 4. Normal abdominal venous vasculature. us Nba Murray APRN, C.N.P., D.N.P. IMG CT [place] OCEDURES Edited Result - Final * CT Cardiac Angiogram Structural Heart with Coronary Arteries with IV Contrast (05/01/2023 9:32 AM DRIER OPERATOR HELPER) Anatomical Region Laterality Modality Cardiac, Cardiovascular RST LOS, Thoracic ARZ LOS, Cardiovascular FLA LOS N/A Computed Tomography, Compute d Tomography 05/01/2023 9:45 AM DRIER OPERATOR HELPER Impressions 05/01/2023 10:55 AM DRIER OPERATOR HELPER 1. Prolapse of the posterior leaflet of [...] abdominal venous vasculature. Narrative 05/01/2023 10:55 AM DRIER OPERATOR HELPER REVISED REPORT: EXAM: CT CARDIAC ANGIO STRUCTURAL [...] carotid arteries are widely patent within the [id number]. Mildly stenotic calcified plaque about the origin [...] common carotid arteries are widelypatent within the yiwvl-uo-zqjb. Mildly stenotic calcified plaque about the origin [...] Nba Murray APRN, C.N.P., D.N.P. IMG CT [place] OCEDURES Edited Result - Final * (ABNORMAL) Creatinine, POCT (05/01/2023 7:49 AM DRIER OPERATOR HELPER) [facility] Creatinine, POCT, B 1.1(H) 0.6 - 1.0 mg/dL 05/01/2023 8:05 AM DRIER OPERATOR HELPER [facility] Comment: ----ADDITIONAL INFORMATION---- Performed at the Point of Care Blood 05/01/2023 7:49 AM DRIER OPERATOR HELPER 05/01/2023 8:05 AM DRIER OPERATOR HELPER Unknown Provider LAB POCT ORDERABLES - DEVICE Fi nal Result POC [facility] [address] [place] [address], [facility] POC [address] [place] [address] * (ABNORMAL) Creatinine, POCT (05/01/2023 7:49 AM DRIER OPERATOR HELPER) [facility] Estimated GFR (eGFR), POCT 53(L) >=60 mL/min/BSA 05/01/2023 8:05 AM DRIER OPERATOR HELPER PCMO Comment: Estimated GFR calculated using the 2020 CKD_EPI creatinine equation. Blood 05/01/2023 7:49 AM DRIER OPERATOR HELPER 05/01/2023 8:05 AM DRIER OPERATOR HELPER us Unknown Provider LAB POCT ORDERABLES - DEVICE Fi nal Result POC [facility] [address] [place] [address], [facility] PCMO [facility] POC [address] [place] [address] documented in this encounter Visit Diagnoses Diagnosis Nonrheumatic Mitral Valve Insufficiency Stenosis Spinal documented in this encounter Administered Medications Inactive Administered Medications - up to 3 most recent administrations Medication Order MAR Action Action Date Dose Rate Site iopromide 370 mg iodine/mL injection 1-162 mL (ULTRAVIST) 1-162 mL, intravenous, Once in imaging, contrast, Starting on Mon05/01/23 at 0730, For 1 dose, Imaging Protocol Orders, Dose per Radiant Medication Guidelines Given 05/01/2023 8:30 AM DRIER OPERATOR HELPER 115 mL metoprolol injection 5 mg (LOPRESSOR) 5 mg, intravenous, As needed, high blood pressure, Cardiac Imaging, Starting on Mon05/01/23 at 0810, For 2 hours, Imaging Protocol Orders, Dose per Radiant Medication Guidelines. May administer 5 mg up to three times as needed for a total of 15 mg. Given 05/01/2023 8:26 AM DRIER OPERATOR HELPER 5 mg nitroglycerin SL tablet 0.4-0.8 mg (NITROSTAT) 0.4-0.8 mg, sublingual, Once, On Mon05/01/23 at 0830, For 1 dose, Imaging Protocol Orders, May administer up to 3 doses per episode. Dissolve under the tongue. Do NOT crush, chew, split or swallow tablet. Given 05/01/2023 8:23 AM DRIER OPERATOR HELPER 0.8 mg sodium chloride (PF) 0.9 % injection 1-100 mL 1-100 mL, intravenous, Once, On Mon05/01/23 at 0800, For 1 dose, Imaging Protocol Orders Given 05/01/2023 8:30 AM DRIER OPERATOR HELPER 40 mL documented in this encounter Care Teams Kick Plate Installer Relationship Specialty Start Date End Date Elsewhere, Pcp PCP - General Internal Medicine 05/10/22 documented as of this encounter
--- OUTSIDE RECORDS SUMMARY | 2024-05-21 14:09 | XMS_ITS | Encounter Summary ---
Author Organization [facility] Address [address] [place] [phone] Care Team Providers Care String Laster Name Role Phone Elsewhere, Pcp Primary Care Provider Unavailabl e Encounter Details Date Type Department Care Team (Latest Contact Info) Description 01/03/2023 1:00 PM CDT Clinical Communication Virtual Review in [place], [place] [address] [place] [phone] Social History Tobacco Use Types Packs/Day Years [...] often do you attend chur ch or mormonism services? More than 4 times [...] and heating? Not hard at all 08/15/2022 [facility] Questionnaire Answer [...] in a penitentiary (including now)? No 08/15/2022 Nutrition Answer Date [...] Sex Assigned at Female 05/11/2022 7:48 AM COMMISSIONING ENGINEER Legal Sex Female 9:30 PM COMMISSIONING ENGINEER Gender Identity Female 05/11/2022 7:48 AM COMMISSIONING ENGINEER Sexual Orientation Straight 05/11/2022 7: 48 AM COMMISSIONING ENGINEER documented as of this encounter Plan of Treatment Upcoming Encounters Date Type Department Care Team (Latest Contact Info) Description 05/29/2024 12:15 PM COMMISSIONING ENGINEER Clinical Communication Virtual Review in [place], [place] [address] [place] [phone] 05/31/2024 11:00 AM COMMISSIONING ENGINEER Appointment Department of Laboratory Medicine and Pathology, [facility], in [place], [place] [address] [place] [address] Patricia Parker APRN, C.N.P., D.N.P. [address] [place] [phone] 05/31/2024 2:00 PM COMMISSIONING ENGINEER Comprehensive Visit Preoperative Evaluation Center in [place], [place] [address] [place] [phone] Arianna Jeffries M.D. [address] [place] [phone] 05/31/2024 2:45 PM COMMISSIONING ENGINEER Comprehensive Visit Preoperative Evaluation Center in [place], [place] [address] [place] [phone] Chris Moreno APRN, C.N.P., M.S. [address] [place] [phone] 06/03/2024 8:15 AM COMMISSIONING ENGINEER Hospital Encounter Post Anesthesia Care Unit in [place] [phone] [place] [phone] Tahir Moore M.D. [address] [place] [phone] 06/03/2024 8:15 AM COMMISSIONING ENGINEER - 06/03/2024 2:12 PM COMMISSIONING ENGINEER Surgery [facility] OR [address] [place] [phone] Tahir Moore M.D. [address] [place] [phone] C1-2 fusion 07/02/2024 11:00 AM COMMISSIONING ENGINEER Procedure visit Division of Pain Medicine in [place], [place] [address] [place] [phone] Adam Barlow M.D. [address] [place] [phone] Scheduled Procedures Name Priority Associated Diagnoses Date/Ti me 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 06/03/2024 8:15 AM COMMISSIONING ENGINEER documented as of this encounter Visit Diagnoses Not on filedocumented in this encounter Care Teams String Laster Relationship Specialty Start Date End Date Elsewhere, Pcp PCP - General Internal Medicine 05/10/22 documented as of this encounter
--- OUTSIDE RECORDS SUMMARY | 2024-05-21 14:09 | XMS_ITS | Encounter Summary ---
Author Organization [facility] Address [address] [place] [address] Care Team Providers Care Lodge Attendant Name Role Phone Elsewhere, Pcp Primary Care Provider Unavailabl e Reason for Visit * Appointment Request (Routine) - Closed Specialty Diagnoses / Procedures Referred By Chanel segovia Referred To Contact Cardiovascular Surgery Referral ID Status Reason Start Date Expiration Date Visits Re quested Visits Authorized [id number] Closed 04/24/2023 04/23/2024 1 1 Encounter Details Date Type Department Care Team (Late st Contact Info) Description 05/01/2023 2:30 PM DRAW MACHINE OPERATOR Office Visit Department of Cardiovascular Surgery in [place], [place] [address] [place] [phone] Jacqueline Hinds, MPAS, P.A.-C. [address] [place] [phone] Stenosis Mitral Congenital (HCC) (Primary Dx) Social History Tobacco Use [...] 08/15/2022 How often do you attend [facility] or latter-day services? More than 4 times [...] Not hard at all 08/15/2022 [facility] [place] of Occupat ional Health - Occupational Stress [...] Sex Assigned at Female 05/11/2022 7:48 AM DRAW MACHINE OPERATOR Legal Sex Female 9:30 PM DRAW MACHINE OPERATOR Gender Identity Female 05/11/2022 7:48 AM DRAW MACHINE OPERATOR Sexual Orientation Straight 05/11/2022 7: 48 AM DRAW MACHINE OPERATOR documented as of this encounter Progress Notes * Jacqueline Hernandez MPAS, P.A.-C. - 05/01/2023 2:30 PM CST Gladys Zamarripa : 1950 Visit Date: 05/01/23 The patient was briefly seen in person by myself after her consultation with Dr. Aguayo, please see his documentation for additional information. Dr. Aguayo would like to obtain patient's outside echocardiograms to review prior to deciding which approach to take with patient. After he obtains the echocardiograms he would like a phone visit with patient. VIJI performed 02/28/2023 at [facility] TTE performed 01/06/2023 at [facility] I reached out to Corrine to see if she can get this set up. I personally spent 20 minutes in care of the patient today. Time includes both lvj-xdak-ok-face julgnen-ie-lmqe patient care. JACQUE Quintero P.A.-C. MACHINE OPERATOR documented in this encounter Plan of Treatment Upcoming Encounters Date Type Department Care Team (Latest Contact Info) Description 05/29/2024 12:15 PM DRAW MACHINE OPERATOR Clinical Communication Virtual Review in [address] [phone] 05/31/2024 11:00 AM DRAW MACHINE OPERATOR Appointment Department of Laboratory Medicine and Pathology, [facility], in [address] [phone] Patricia Parker APRN, C.N.P., D.N.P. [address] [place] [phone] 05/31/2024 2:00 PM DRAW MACHINE OPERATOR Comprehensive Visit Preoperative [place] [phone] Arianna Jeffries M.D. [address] [place] [phone] 05/31/2024 2:45 PM DRAW MACHINE OPERATOR Comprehensive Visit Preoperative Evaluation Center in [place], [place] [address] [place] [phone] Chris Moreno, JOHNSON, C.N.P., M.S. [address] [place] [phone] 06/03/2024 8:15 AM DRAW MACHINE OPERATOR Hospital Encounter Post Anesthesia Care Unit in [place], [place] [address] [place] [phone] Tahir Moore M.D. [address] [place] [phone] 06/03/2024 8:15 AM DRAW MACHINE OPERATOR - 06/03/2024 2:12 PM DRAW MACHINE OPERATOR Surgery [facility] OR [address] [place] [phone] Thair Moore M.D. [address] [place] [phone] C1-2 fusion 07/02/2024 11:00 AM DRAW MACHINE OPERATOR Procedure visit Division of Pain Medicine in [place], [place] [address] [place] [phone] Adam Barlow M.D. [address] [place] [phone] Scheduled Procedures Name Priority Associated Diagnoses Date/Ti me 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 06/03/2024 8:15 AM DRAW MACHINE OPERATOR documented as of this encounter Visit Diagnoses Diagnosis Stenosis Mitral Congenital (HCC)- Primary Stenosis Spinal documented in this encounter Care Teams Lodge Attendant Relationship Specialty Start Date End Date Elsewhere, Pcp PCP - General Internal Medicine 05/10/22 documented as of this encounter
--- OUTSIDE RECORDS SUMMARY | 2024-05-21 14:09 | XMS_ITS | Encounter Summary ---
Author Organization [facility] Address [address] [place] [address] Care Team Providers Care Antiquer Name Role Phone Elsewhere, Pcp Primary Care Provider Unavailabl e Reason for Visit * Outpatient (Routine) - Closed Specialty Diagnoses / Procedures Referred By Chanel t Referred To Contact Cardiovascular Surgery Diagnoses Stenosis Mitral Congenital (HCC) Nelson Esqueda M.D. [address] [place] [address] Phone: tel: fax: [facility] Referral ID Status Reason Start Date Expiration Date Visits Re quested Visits Authorized [id number] Closed 04/21/2023 04/20/2024 1 1 Encounter Details Date Type Department Care Team (Latest Contact Info) Description 04/24/2023 3:00 PM FILE SYSTEM INSTALLER Comprehensive Visit Department of Cardiovascular Surgery in [place], [place] [address] [place] [phone] Monty Rutledge M.D. [address] [place] [phone] Stenosis Mitral Congenital (HCC) Social History Tobacco Use Types Packs/Day [...] How often do you attend chur or lutheran services? More than 4 times per year [...] and heating? Not hard at all 08/15/2022 [facility] Occupat ional Health - Occupational Stress [...] place to sleep or slept in a assisted (including now)? No 08/15/2022 Nutrition Answer Date [...] Sex Assigned at Female 05/11/2022 7:48 AM FILE SYSTEM INSTALLER Legal Sex Female 9:30 PM FILE SYSTEM INSTALLER Gender Identity Female 05/11/2022 7:48 AM FILE SYSTEM INSTALLER Sexual Orientation Straight 05/11/2022 7: 48 AM FILE SYSTEM INSTALLER documented as of this encounter Last Filed Vital Signs Vital Sign Reading Time Taken Comments Blood Pressure 179/115 04/24/2023 3:17 PM FILE SYSTEM INSTALLER Pulse 93 04/24/2023 3:17 PM FILE SYSTEM INSTALLER Temperature 36.5 C (97.7 F) 04/24/2023 3:17 PM FILE SYSTEM INSTALLER Respiratory Rate - - Oxygen Saturation 98% 04/24/2023 3:17 PM FILE SYSTEM INSTALLER Inhaled Oxygen Concentration - - Weight 61.4 kg (135 lb 7.6 oz) 04/24/2023 3:17 P M FILE SYSTEM INSTALLER Height 162.7 cm (5' 4.06) 04/24/2023 3:17 PM CS T Body Mass Index 23.21 04/24/2023 3:17 PM FILE SYSTEM INSTALLER documented in this encounter H&P Notes * Monty Rutledge M.D. - 04/24/2023 3:00 PM CST Cardiovascular surgery clinic note: It was elzbieta to meet Mrs. Zamarripa in clinic today. She presents with her . She is a 73-year-old healthy woman who is approximately 6 months out from lumbar spine surgery with our neurosurgical team. She has a history of atrial fibrillation and underwent transcatheter ablation number of years ago. This was successful however she has been having frequent premature atrial contractions recently and therefore her heel edge inker machine recommended echocardiography. She was found have moderate to severe mitral valve regurgitation on TTE and on follow-up VIJI this is found to be due to a cleft between P1 and P2. Mitral valve repair was recommended and she requested evaluation at the [facility] to inquire about robotic approach to mitral valve repair. On exam the patient is thin, she has a regular rhythm but with frequent premature atrial contractions. She has a very faint systolic murmur heard best at the apex. Discussion with her I told her that I thought robotic approach for mitral valve surgery for the appropriate candidate he is a very safe option and that the operation within the heart is the same as open mitral valve repair. The difference is in the approach. I do not perform robotic mitral valve surgery however I have colleagues here that do and we will arrange for evaluation with them. Thank you for the opportunity participate in the care of Mrs. Zamarripa. Monty Rutledge MD SYSTEM INSTALLER documented in this encounter Plan of Treatment Upcoming Encounters Date Type Department Care Team (Latest Contact Info) Description 05/29/2024 12:15 PM FILE SYSTEM INSTALLER Clinical Communication Virtual Review in [place], [place] [address] [place] [phone] 05/31/2024 11:00 AM FILE SYSTEM INSTALLER Appointment Department of Laboratory Medicine and Pathology, [facility], in [place], [place] [address] [place] [phone] Patricia Parker APRN, C.N.P., D.N.P. [address] [place] [phone] 05/31/2024 2:00 PM FILE SYSTEM INSTALLER Comprehensive Visit Preoperative Evaluation Center in [place], [place] [address] [place] [phone] Arianna Jeffries M.D. [address] [place] [phone] 05/31/2024 2:45 PM FILE SYSTEM INSTALLER Comprehensive Visit Preoperative Evaluation Center in [place], [place] [address] [place] [phone] Chris Moreno APRN, C.N.P., M.S. [address] [place] [phone] 06/03/2024 8:15 AM FILE SYSTEM INSTALLER Hospital Encounter Post Anesthesia Care Unit in [place], [place] [address] [place] [phone] Tahir Moore M.D. [address] [place] [phone] 06/03/2024 8:15 AM FILE SYSTEM INSTALLER - 06/03/2024 2:12 PM FILE SYSTEM INSTALLER Surgery [facility]ST ROMB MAIN OR [address] [place] [phone] Tahir Moore M.D. [address] [place] [phone] C1-2 fusion 07/02/2024 11:00 AM FILE SYSTEM INSTALLER Procedure visit Division of Pain Medicine in [place], [place] [address] [place] [phone] Adam Barlow M.D. [address] [place] [phone] Scheduled Procedures Name Priority Associated Diagnoses Date/Ti me 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 06/03/2024 8:15 AM FILE SYSTEM INSTALLER documented as of this encounter Visit Diagnoses Diagnosis Stenosis Mitral Congenital (HCC) Stenosis Spinal documented in this encounter Care Teams Antiquer Relationship Specialty Start Date End Date Elsewhere, Pcp PCP - General Internal Medicine 05/10/22 documented as of this encounter
--- OUTSIDE RECORDS SUMMARY | 2024-05-21 14:09 | XMS_ITS | Encounter Summary ---
Author Organization [facility] Address [address] [place] [address] Care Team Providers Care Fibre Technologist Name Role Phone Elsewhere, Pcp Primary Care Provider Unavailabl e Reason for Referral * Physical Therapy (Routine) - Closed Specialty Diagnoses / Procedures Referred By Contac t Referred To Contact Diagnoses Spinal Stenosis Lumbar Region Without Neurogenic Claudication Stu Hahn M.D., M.B.A. Referral ID Status Reason Start Date Expiration Date Visits Requested Visits Authorized [id number] Closed Patient Preference 10/13/2022 10/13/2023 99 99 * Outpatient (Routine) - Closed Specialty Diagnoses / Procedures Referred By Contac t Referred To Contact Diagnoses Spinal Stenosis Lumbar Region Without Neurogenic Claudication Procedures DX Lumbar Spine 2-3 Views Stu Hahn M.D., M.B.A. [facility] Referral ID Status Reason Start Date Expiration Date Visits Re quested Visits Authorized [id number] Closed 10/13/2022 10/13/2023 1 1 * Outpatient (Routine) - Closed Specialty Diagnoses / Procedures Referred By Contac t Referred To Contact Neurological Surgery Stu Hahn M.D., M.B.A. [facility] Referral ID Status Reason Start Date Expiration Date Visits Re quested Visits Authorized [id number] Closed 10/13/2022 10/12/2025 1 1 Reason for Visit * Outpatient (Routine) - Closed Specialty Diagnoses / Procedures Referred By Chanel segovia Referred To Contact Neurological Surgery Reina Zamorano P.A.-C. [address] [place] [address] Phone: tel: fax: [facility] Referral ID Status Reason Start Date Expiration Date Visits Re quested Visits Authorized [id number] Closed 09/02/2022 09/01/2025 1 1 Encounter Details Date Type Department Care Team (Late st Contact Info) Description 10/13/2022 11:30 AM CDT Office Visit Department of Neurologic Surgery in [place], [place] [address] [place] [phone] Stu Hahn M.D., M.B.A. Spinal Stenosis Lumbar Region Without Neurogenic Claudication (Primary Dx) Social History Tobacco Use Types [...] often do you attend chur ch or advent services? More than 4 times per year [...] and heating? Not hard at all 08/15/2022 [facility] - Occupational [...] place to sleep or slept in a correction (including now)? No 08/15/2022 Nutrition Answer Date [...] Sex Assigned at Female 05/11/2022 7:48 AM BRANCH OPERATIONS MANAGER Legal Sex Female 9:30 PM BRANCH OPERATIONS MANAGER Gender Identity Female 05/11/2022 7:48 AM BRANCH OPERATIONS MANAGER Sexual Orientation Straight 05/11/2022 7: 48 AM BRANCH OPERATIONS MANAGER documented as of this encounter Patient Instructions * Patient Instructions* Reinier Maciel, RHomeroN. - 10/13/2022 11:30 AM CDT Brace Weaning While you were wearing your brace, your muscles did not have to work as they normally do and are now deconditioned. When you initially stop wearing your brace, your muscles may become tired quickly. To prevent muscle discomfort, we have you follow the below timeline for weaning out of your brace. Please follow the below guidelines for weaning out of your brace, remove it for the time indicated,and then put it back on. If your muscles become very fatigued before the time is up, you may replace your brace and simply slow your weaning schedule. Nine-Week Schedule Week Morning Afternoon Night 1 Off 1 hour ON 2 Off 1 hour Off 1 hour 3 Off 2 hours Off 1 hour 4 Off 2 hours Off 2 hours 5 Off 3 hours Off 2 hours 6 Off 3 hours Off 3 hours 7 Off 4 hours Off 3 hours 8 Off 4 hours Off 4 hours 9 Off all day Off at night documented in this encounter Progress Notes * Stu Hahn M.D. - 10/13/2022 11:30 AM CDT Referring Provider: Reina Zamorano P.A.-C. SUBJECTIVE CHIEF COMPLAINT / REASON FOR VISIT Gladys Zamarripa is a 72 y.o. female who presents for follow-up. HISTORY OF PRESENT ILLNESS Mrs. Zamarripa is a 72-year-old female, accompanied by her , who is approximately 6 weeks status post L3-S1 posterior lumbar instrumented fusion and L3-4 and L4-5 transforaminal lumbar interbodyfusion. The patient reports that she is doing well overall. She reports some residual bilateral lower extremity tingling however her pain is completely resolved and she is doing well overall. She denies any new weakness. However, she does report some right hip soreness. She reports that this was present in both hips after surgery however 1 hip improved and the other hip not so much. She denies any bowel or bladder symptoms. The following portions of the patient's history were reviewed and updated as appropriate: allergies, current medications, family history, medical history, social history, surgical history, and problem list. REVIEW OF SYSTEMS: Skin: Positive for change in mole or skin spot. Gastrointestinal: Positive for difficulty swallowing. Genitourinary: Positive for urgency. Hematologic: Positive for bruises or bleeds easily. Musculoskeletal: Positive for pain or stiffness in the joints and back pain. The following systems were negative: Constitutional, Eyes, ENT, Respiratory, Cardiovascular, Neurological, Psychiatric OBJECTIVE PHYSICAL EXAM Bilateral iliopsoas 4- out of 5, bilateral quadriceps 4/5, bilateral tibialis anterior 4/5, left extensor hallucis longus 4- out of 5 DIAGNOSTICS Lumbar spine radiographs demonstrate: L3-S1 posterior spinal fixation hardware and decompressive laminectomies with bone grafting and interbody spacers at L3-L4 and L4-L5. No evidence of hardware failure. Unchanged slight anterolisthesisof L3 and L4. Multilevel facet arthropathy and degenerative disc space narrowing, greatest at L1-L2. ASSESSMENT / PLAN Patient Active Problem List Diagnosis Date Noted Spinal Stenosis Lumbar Region Without Neurogenic Claudication 08/31/2022 Gastroesophageal Reflux Disease Without Esophagitis 08/22/2022 Anemia 08/22/2022 Gout 08/22/2022 Anemia Of Chronic Disease 08/22/2022 Stenosis Spinal 06/13/2022 Atrial Fibrillation Paroxysmal (HCC) 06/13/2022 Cardiomegaly 06/13/2022 Depression Major Recurrent (HCC) 05/29/2022 Atypical Atrial Flutter (HCC) 05/06/2021 Cardiomyopathy Stress Induced 05/06/2021 PreDiabetes 06/05/2018 Hyperlipidemia 08/23/2006 Hypertension Essential Primary 08/23/2006 I discussed with the patient her symptoms as well as imaging in follow-up. The patient has right hip pain is likely secondary to a trochanteric bursitis. I counseled the patient that we would monitor this and if it does not improve or worsens, the patient will be referred to our colleagues in Interventional Radiology for an injection for right trochanteric bursitis. Follow-up lumbar radiographs demonstrate intact instrumentation, preserved alignment, and no evidence of hardware failure. I discussed with the patient further follow-up which would include a three-month postoperative follow-up with lumbar radiographs. I counseled the patient that we would proceed with a 9 week brace wean. The patient should also initiate physical therapy at this time. The patient was in agreement. All questions were answered. BILLIN minutes of time were spent in consultation with the patient, greater than 50% of which was dedicated to education, counseling, and coordination of care. documented in this encounter Plan of Treatment Upcoming Encounters Date Type Department Care Team (Latest Contact Info) Description 05/29/2024 12:15 PM BRANCH OPERATIONS MANAGER Clinical Communication Virtual Review in [address] [phone] 05/31/2024 11:00 AM BRANCH OPERATIONS MANAGER Appointment Department of Laboratory Medicine and Pathology, [facility], in [place], [place] [address] [place] [phone] Patricia Parker APRN, C.N.P., D.N.P. [address] [place] [phone] 05/31/2024 2:00 PM BRANCH OPERATIONS MANAGER Comprehensive Visit Preoperative Evaluation Center in [place], [place] [address] [place] [phone] Arianna Jeffries M.D. [address] [place] [phone] 05/31/2024 2:45 PM BRANCH OPERATIONS MANAGER Comprehensive Visit Preoperative Evaluation Center in [place], [place] [address] [place] [phone] Chris Moreno APRN, C.N.P., M.S. [address] [place] [phone] 06/03/2024 8:15 AM BRANCH OPERATIONS MANAGER Hospital Encounter Post Anesthesia Care Unit in [place], [place] [address] [place] [phone] Tahir Moore M.D. [address] [place] [phone] 06/03/2024 8:15 AM BRANCH OPERATIONS MANAGER - 06/03/2024 2:12 PM BRANCH OPERATIONS MANAGER Surgery [facility]ST ROM[facility] MAIN OR [address] [place] [phone] Tahir Moore M.D. [address] [place] [phone] C1-2 fusion 07/02/2024 11:00 AM BRANCH OPERATIONS MANAGER Procedure visit Division of Pain Medicine in [place], [place] [address] [place] [phone] Adam Barlow M.D. [address] [place] [phone] Scheduled Procedures Name Priority Associated Diagnoses Date/Ti me 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 06/03/2024 8:15 AM BRANCH OPERATIONS MANAGER Scheduled Referrals Name Type Priority Associated Diagnoses Order Schedule Neurological Surgery office visit (clinic) Outpatient Referral Routine Expect ed: 01/13/2023 (Approximate), Expires: 01/14/2024 documented as of this encounter Results * DX Lumbar Spine 2-3 Views (01/04/2023 10:40 AM CDT) Anatomical Region Laterality Modality Lumbar Spine, Musculoskeleta l RST LOS, Neuroradiology ARZ LOS, Muskuloskeletal FLA LOS N/A Digital Radiography 01/04/2023 11:0 0 AM CDT Impressions 01/04/2023 11:01 AM CDT Demineralization. Instrumented spinal fusion L3-S1 with decompression and posterolateral bone graft. Scattered degenerative disc disease of the remaining lumbar spine greatest at L1-2. Low-grade lumbar subluxations. 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 Vascular calcifications. Surgical clip within the pelvis. Narrative 01/04/2023 11:01 AM CDT EXAM: DX LUMBAR SPINE 2-3 VIEWS Procedure Note Raffaele Agarwal M.D. - 01/04/2023 EXAM: DX LUMBAR SPINE 2-3 VIEWS IMPRESSION: Demineralization. Instrumented spinal fusion L3-S1 with decompressionand posterolateral bone graft. Scattered degenerative disc disease of theremaining lumbar spine greatest at L1-2. Low-grade lumbar subluxations. 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 Vascularcalcifications. Surgical clip within the pelvis. Stu Hahn M.D., M.B.A. IMG DIAGNOSTIC IMAGI NG PROCEDURES Final Result documented in this encounter Visit Diagnoses Diagnosis Spinal Stenosis Lumbar Region Without Neurogenic Claudication- Primary Spinal Stenosis Lumbar Region Without Neurogenic Claudication Stenosis Spinal documented in this encounter Care Teams Fibre Technologist Relationship Specialty Start Date End Date Elsewhere, Pcp PCP - General Internal Medicine 05/10/22 documented as of this encounter
--- OUTSIDE RECORDS SUMMARY | 2024-05-21 14:09 | XMS_ITS | Encounter Summary ---
Author Organization [facility] Address [address] [place] [address] Care Team Providers Care Curling Machine Operator Name Role Phone Elsewhere, Pcp Primary Care Provider Unavailabl e Reason for Visit * Appointment Request (Routine) - Closed Specialty Diagnoses / Procedures Referred By Chanel segovia Referred To Contact Cardiovascular Surgery Referral ID Status Reason Start Date Expiration Date Visits Re quested Visits Authorized [id number] Closed 04/24/2023 04/23/2024 1 1 Encounter Details Date Type Department Care Team (Latest Contact Info) Description 05/01/2023 2:00 PM MACHINE STRIPPER CUTTER Comprehensive Visit Department of Cardiovascular Surgery in [place], [place] [address] [place] [phone] Richard Aguayo M.D. [address] [place] [phone] Atrial Fibrillation Paroxysmal (HCC) (Primary Dx) Social [...] often do you attend chur ch or bahai services? More than 4 times per year 08/15/2022 Do you belong to any clubs o r organizations such as cheondoism groups, unions, fraternal or athletic groups, or [...] and heating? Not hard at all 08/15/2022 [facility] [place] of Occupat ional Health - Occupational Stress [...] Assigned at Female 05/11/2022 7:48 AM MACHINE STRIPPER CUTTER Legal Sex Female 9:30 PM MACHINE STRIPPER CUTTER Gender Identity Female 05/11/2022 7:48 AM MACHINE STRIPPER CUTTER Sexual Orientation Straight 05/11/2022 7: 48 AM MACHINE STRIPPER CUTTER documented as of this encounter Last Filed Vital Signs Vital Sign Reading Time Taken Comments Blood Pressure 151/107 05/01/2023 12:29 PM MACHINE STRIPPER CUTTER Pulse 95 05/01/2023 12:29 PM MACHINE STRIPPER CUTTER Temperature 36.3 C (97.3 F) 05/01/2023 12:29 PM MACHINE STRIPPER CUTTER Respiratory Rate - - Oxygen Saturation 99% 05/01/2023 12:29 PM MACHINE STRIPPER CUTTER Inhaled Oxygen Concentration - - Weight 60.1 kg (132 lb 7.9 oz) 05/01/2023 12:29 PM MACHINE STRIPPER CUTTER Height 157.9 cm (5' 2.17) 05/01/2023 12:[address] Body Mass Index 24.11 05/01/2023 12:29 PM MACHINE STRIPPER CUTTER documented in this encounter Consult Notes * Richard Aguayo M.D. - 05/01/2023 2:00 PM CST The patient is a pleasant 73-year-old female referred by Dr. Rutledge for evaluation of mitral valveregurgitation. The patient has had outside transthoracic as well as transesophageal echocardiogram performed up [facility]. Unfortunately, we do not have the echo images. We must acquire these images. The reports indicate a posterior leaflet cleft with severe mitral valve regurgitation. Ejection fraction is 55-60%. There is mild tricuspid regurgitation. The aortic valve is trileaflet, mildly sclerotic, no regurgitation. No evidence of atrial septal shunting on VIJI. The transthoracic echo showed LV KYLE 48 mm. LV ESD 34 mm. The patient is relatively asymptomatic but does have some exertional dyspnea. Impression/plan Mitral valve regurgitation Mild tricuspid regurgitation History of A. Fib s/p ablation in 2020. I met with the patient and her spouse and reviewed the findings of the studies.Unfortunately, we donot have her outside echo images. We are working to acquire these images. She had a robotic CTA testing performed today which showed minimal calcification of the infrarenal abdominal aorta. There is varying aortic arch branching with right subclavian artery arising as the last branch off of the aortic arch. The patient denies any history of dysphagia. The mitral valve leaflets and annulus are free of calcification. The mid LAD had mild stenosis. The left circumflex hadminimal stenosis. The proximal RCA had minimal stenosis but unfortunately the mid and distal segments were difficult to visualize due to motion artifact. The patient denies any history of angina. The 1st step is to acquire the transesophageal and transthoracic echo imaging so we can evaluate repairability of the valve. We discussed the potential of robotic assisted approach versus transsternal surgery. She is still recovering from extensive lower lumbar spine surgery in August 2022 and wouldbenefit from a robotic assisted approach if feasible. I would like to have a non [id number]-dv-[id number] telephone visit once I have a chance to reviewed the echo imaging. INE STRIPPER CUTTER documented in this encounter Plan of Treatment Upcoming Encounters Date Type Department Care Team (Latest Contact Info) Description 05/29/2024 12:15 PM MACHINE STRIPPER CUTTER Clinical Communication Virtual Review in [address] [phone] 05/31/2024 11:00 AM MACHINE STRIPPER CUTTER Appointment Department of Laboratory Medicine and Pathology, [facility], in [address] [phone] Patricia Parker APRN, C.N.P., D.N.P. [address] [place] [phone] 05/31/2024 2:00 PM MACHINE STRIPPER CUTTER Comprehensive Visit Preoperative Evaluation Center in [place], [place] [address] [place] [phone] Arianna Jeffries M.D. [address] [place] [phone] 05/31/2024 2:45 PM MACHINE STRIPPER CUTTER Comprehensive Visit Preoperative Evaluation Center in [place], [place] [address] [place] [phone] Chris Moreno APRN, C.N.P., M.S. [address] [place] [phone] 06/03/2024 8:15 AM MACHINE STRIPPER CUTTER Hospital Encounter Post Anesthesia Care Unit in [place] [id number] [place] [phone] Tahir Moore M.D. [address] [place] [phone] 06/03/2024 8:15 AM MACHINE STRIPPER CUTTER - 06/03/2024 2:12 PM MACHINE STRIPPER CUTTER Surgery [facility] ROM[facility] MAIN OR [address] [place] [phone] Tahir Moore M.D. [address] [place] [phone] C1-2 fusion 07/02/2024 11:00 AM MACHINE STRIPPER CUTTER Procedure visit Division of Pain Medicine in [place], [place] [address] [place] [phone] dAam Barlow M.D. [address] [place] [phone] Scheduled Procedures Name Priority Associated Diagnoses Date/Ti me 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 06/03/2024 8:15 AM MACHINE STRIPPER CUTTER documented as of this encounter Visit Diagnoses Diagnosis Atrial Fibrillation Paroxysmal (HCC)- Primary Stenosis Spinal documented in this encounter Care Teams Curling Machine Operator Relationship Specialty Start Date End Date Elsewhere, Pcp PCP - General Internal Medicine 05/10/22 documented as of this encounter
--- OUTSIDE RECORDS SUMMARY | 2024-05-21 14:09 | XMS_ITS | Encounter Summary ---
Author Organization [facility] Address [address] [place] [address] Care Team Providers Care Flour Broker Name Role Phone Elsewhere, Pcp Primary Care Provider Unavailabl e Reason for Referral * Outpatient (Routine) - Closed Specialty Diagnoses / Procedures Referred By Contac t Referred To Contact Diagnoses Spinal Stenosis Lumbar Region Without Neurogenic Claudication Procedures DX Lumbar Spine 2-3 Views Stu Hahn M.D., M.B.A. [facility] Referral ID Status Reason Start Date Expiration Date Visits Re quested Visits Authorized [id number] Closed 10/13/2022 10/13/2023 1 1 Reason for Visit * Outpatient (Routine) - Closed Specialty Diagnoses / Procedures Referred By Contac t Referred To Contact Diagnoses Spinal Stenosis Lumbar Region Without Neurogenic Claudication Procedures DX Lumbar Spine 2-3 Views Stu Hahn M.D., M.B.A. [facility] Referral ID Status Reason Start Date Expiration Date Visits Re quested Visits Authorized [id number] Closed 10/13/2022 10/13/2023 1 1 Encounter Details Date Type Department Care Team (Latest Contact Info) Description 01/04/2023 10:14 AM CDT - 01/04/2023 11:59 PM CDT Hospital Encounter Department of Radiology, [facility], in [place], [place] [address] [place] [address] Stu Hahn M.D., M.B.A. Spinal Stenosis Lumbar Region Without Neurogenic Claudication Discharge Disposition: Home or Self Care Social [...] week 08/15/2022 How often do you attend [facility] or christianity services? More than 4 times per year 08/15/2022 Do you belong to any clubs o r organizations such as sikh groups, unions, fraternal or athletic groups, or [...] and heating? Not hard at all 08/15/2022 [facility] - Occupational Stress Questionnaire Answer Date [...] in a fpc (including now)? No 08/15/2022 Nutrition Answer Date [...] Sex Assigned at Female 05/11/2022 7:48 AM BLINDSTITCH LAPEL PADDER Legal Sex Female 9:30 PM BLINDSTITCH LAPEL PADDER Gender Identity Female 05/11/2022 7:48 AM BLINDSTITCH LAPEL PADDER Sexual Orientation Straight 05/11/2022 7: 48 AM BLINDSTITCH LAPEL PADDER documented as of this encounter Medications at [...] (three) times a week. Monday, Monday, Monday magnesium oxide (MAG-OX) 400 mg (241.3 mg [...] for up to 1 dose. 09/02/2022 05/25/19 carvediloL (COREG) 6.25 mg tablet Take 12.5 [...] (Latest Contact Info) Description 05/29/2024 12:15 PM BLINDSTITCH LAPEL PADDER Clinical Communication Virtual Review in [place], [place] [address] [place] [address] 05/31/2024 11:00 AM BLINDSTITCH LAPEL PADDER Appointment Department of Laboratory Medicine and Pathology, [facility], in [address] [phone] Patricia Parker APRN, C.N.P., D.N.P. [address] [place] [phone] 05/31/2024 2:00 PM BLINDSTITCH LAPEL PADDER Comprehensive Visit Preoperative Evaluation Center in [address] [phone] Arianna Jeffries M.D. [address] [place] [phone] 05/31/2024 2:45 PM BLINDSTITCH LAPEL PADDER Comprehensive Visit Preoperative Evaluation Center in [address] [phone] Chris Moreno, JOHNSON, C.N.P., M.S. [address] [place] [phone] 06/03/2024 8:15 AM BLINDSTITCH LAPEL PADDER Hospital Encounter Post Anesthesia Care Unit in [place], [place] [address] [place] [phone] Tahir Moore M.D. [address] [place] [phone] 06/03/2024 8:15 AM BLINDSTITCH LAPEL PADDER - 06/03/2024 2:12 PM BLINDSTITCH LAPEL PADDER Surgery [facility] MAIN OR [address] [place] [phone] Tahir Moore M.D. [address] [place] [phone] C1-2 fusion 07/02/2024 11:00 AM BLINDSTITCH LAPEL PADDER Procedure visit Division of Pain Medicine in [place], [place] [address] [place] [phone] Adam Barlow M.D. [address] [place] [phone] Scheduled Procedures Name Priority Associated Diagnoses Date/Ti me 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 06/03/2024 8:15 AM BLINDSTITCH LAPEL PADDER documented as of this encounter Procedures Procedure Name Priority Date/Time Associated Diagnosis Comments DX LUMBAR SPINE 2-3 VIEWS RAD - Routine (most inpatients and all outpatients) 01/04/2023 10:40 AM CDT Spinal Stenosis Lumbar Region Without Neurogenic Claudication documented in this encounter Results * DX [...] Diagnosis Spinal Stenosis Lumbar Region Without Neurogenic Claudication Stenosis Spinal documented in this encounter Care Teams Flour Broker Relationship Specialty Start Date End Date Elsewhere, Pcp PCP - General Internal Medicine 05/10/22 documented as of this encounter
--- OUTSIDE RECORDS SUMMARY | 2024-05-21 14:09 | XMS_ITS | Encounter Summary ---
Author Organization [facility] Address [address] [place] [address] Care Team Providers Care Materials Assistant Name Role Phone Elsewhere, Pcp Primary Care Provider Unavailabl e Reason for Referral * Outpatient (Routine) - Closed Specialty Diagnoses / Procedures Referred By Contac t Referred To Contact Diagnoses Fusion Lumbar Spine Status Post Procedures DX Lumbar Spine 2-3 Views Reina Zamorano P.AHomero-CHomero 200 [place] [address] Phone: tel: fax: [facility] Referral ID Status Reason Start Date Expiration Date Visits Re quested Visits Authorized [id number] Closed 09/02/2022 09/02/2023 1 1 Reason for Visit * Outpatient (Routine) - Closed Specialty Diagnoses / Procedures Referred By Contac t Referred To Contact Diagnoses Fusion Lumbar Spine Status Post Procedures DX Lumbar Spine 2-3 Views Reina Zamorano P.A.-Reza [address] [place] [address] Phone: tel: fax: [facility] Referral ID Status Reason Start Date Expiration Date Visits Re quested Visits Authorized [id number] Closed 09/02/2022 09/02/2023 1 1 Encounter Details Date Type Department Care Team (Latest Contact Info) Description 10/13/2022 8:45 AM CDT - 10/13/2022 11:59 PM CDT Hospital Encounter Department of Radiology, [facility], in [place], [place] [address] [place] [address] Reina Zamorano P.A.-C. [address] [place] [address] Fusion Lumbar Spine Status Post Discharge Disposition: [...] How often do you attend chur or jain services? More than 4 times per year 08/15/2022 Do you belong to any clubs o r organizations such as judaism groups, unions, fraternal or athletic groups, or [...] and heating? Not hard at all 08/15/2022 [facility] [place] [facility] - Occupational Stress [...] in a mcfp (including now)? No 08/15/2022 Nutrition Answer Date [...] Sex Assigned at Female 05/11/2022 7:48 AM OVEREDGE SEWER Legal Sex Female 9:30 PM OVEREDGE SEWER Gender Identity Female 05/11/2022 7:48 AM OVEREDGE SEWER Sexual Orientation Straight 05/11/2022 7: 48 AM OVEREDGE SEWER documented as of this encounter Medications at Time of Discharge allopurinoL (ZYLOPRIM) 300 mg tablet Take 150 mg by mouth daily. 1 atorvastatin (LIPITOR) 20 mg tablet Take 20 mg by mouth daily. 2 buPROPion XL (WELLBUTRIN XL) 150 mg 24 hr tablet Take 150 mg by mouth daily. 2 calcium carbonate 1,500 mg (600 mg calcium) tablet Take 1 tablet by mouth daily. cyanocobalamin (VITAMIN B12) 1,000 mcg/mL injection Inject 1,000 mcg intramuscularly every 30 (thirty) days. 3 ferrous sulfate 325 mg (65 mg iron) tablet Take 325 mg by mouth 3 (three) times a week. Monday, Monday, Monday magnesium oxide (MAG-OX) 400 mg (241.3 mg magnesium) tablet Take 1 tablet by mouth daily. omeprazole (PriLOSEC) [address] capsule Take 20 mg by mouth every morning before breakfast. 2 rivaroxaban (XARELTO) 20 mg tablet Take 1 tablet (20 mg total) by mouth daily. Okay to start retaking 1 week after surgery 60 tablet 1 3 acetaminophen (TYLENOL) 500 mg tablet Take 2 tablets (1,000 mg total) by mouth every 6 (six) hours as needed for pain for up to 1 dose. 3 05/25/19 24 bisacodyL (DULCOLAX) 10 mg suppository Insert 1 suppository (10 mg total) into the rectum daily as needed for constipation. 3 01/04/20 23 carvediloL (COREG) 6.25 mg tablet Take 12.5 mg by mouth 2 (two) times a day. 2 05/25/19 24 cholecalciferol (VITAMIN D3) 25 mcg (1,000 Unit) capsule Take 1,000 Units by mouth daily. 1 01/04/20 23 folic acid 1 mg tablet Take 1 mg by mouth daily. 2 08/01/19 24 furosemide (LASIX) 20 mg tablet Take 20 mg by mouth daily. 3 08/11/19 24 gabapentin (NEURONTIN) 300 mg capsule Take 300 mg by mouth 2 (two) times a day. 2 05/25/19 24 lisinopriL (PRINIVIL,ZESTRI L) 5 mg tablet Take 5 mg by mouth 2 (two) times a day. 2 08/11/19 24 methocarbamoL (ROBAXIN) 500 mg tablet Take 1 tablet (500 mg total) by mouth 4 (four) times a day as needed for muscle spasms. 25 tablet 1 3 01/04/20 23 oxyCODONE (ROXICODONE) 5 mg immediate release tabletIndication s:Acute Pain Exception Take 1 tablet (5 mg total) by mouth every 4 (four) hours as needed for pain or severe pain or score 7-10 of 10 Indication: Acute Pain Exception. 40 tablet 09/04/2022 3:10 PM CDT 3 01/04/20 23 polyethylene glycol (MIRALAX) 17 gram powder packetIndication s:constipation Take 1 packet (17 g total) by mouth daily Indications: constipation. Dissolve each 17 g dose in 240 mLs (8 ounces) of beverage. 04/15/202 3 01/04/20 23 sennosides-docus ate sodium (SENOKOT-S) 8.6-50 mg per tablet Take 2 tablets by mouth 2 (two) times a day. 3 01/04/20 23 spironolactone (ALDACTONE) 25 mg tablet Take 25 mg by mouth daily. 2 01/04/20 23 triamcinolone (KENALOG) 0.1 % ointment Apply 1 Application topically as needed for irritation (bump on the back). 1 11/01/19 24 documented as of this encounter Plan of Treatment Upcoming Encounters Date Type Department Care Team (Latest Contact Info) Description 05/29/2024 12:15 PM OVEREDGE SEWER Clinical Communication Virtual Review in [place], [place] 200 [place] [address] 05/31/2024 11:00 AM OVEREDGE SEWER Appointment Department of Laboratory Medicine and Pathology, [facility], in [address] [phone] Patricia Parker APRN, C.N.P., D.N.P. [address] [place] [phone] 05/31/2024 2:00 PM OVEREDGE SEWER Comprehensive Visit Preoperative Evaluation Center in [place], [place] [address] [place] [phone] Arianna Jeffries M.D. [address] [place] [phone] 05/31/2024 2:45 PM OVEREDGE SEWER Comprehensive Visit Preoperative Evaluation Center in [address] [phone] Chris Moreno APRN, C.N.P., M.S. [address] [place] [phone] 06/03/2024 8:15 AM OVEREDGE SEWER Hospital Encounter Post Anesthesia Care Unit in [place], [place] [address] [place] [address], [place] [phone] Tahir Moore M.D. [address] [place] [phone] 06/03/2024 8:15 AM OVEREDGE SEWER - 06/03/2024 2:12 PM OVEREDGE SEWER Surgery [facility] OR [address] [place] [phone] Tahir Moore M.D. [address] [place] [phone] C1-2 fusion 07/02/2024 11:00 AM OVEREDGE SEWER Procedure visit Division of Pain Medicine in [place], [place] [address] [place] [phone] Adam Barlow M.D. [address] [place] [phone] Scheduled Procedures Name Priority Associated Diagnoses Date/Ti me 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 06/03/2024 8:15 AM OVEREDGE SEWER documented as of this encounter Procedures Procedure Name Priority Date/Time Associated Diagnosis Comments DX LUMBAR SPINE 2-3 VIEWS RAD - Routine (most inpatients and all outpatients) 10/13/2022 9:06 AM CDT Fusion Lumbar Spine Status Post documented in this encounter Results * DX Lumbar Spine 2-3 Views (10/13/2022 9:06 AM CDT) Anatomical Region Laterality Modality Lumbar Spine, Musculoskeleta l RST LOS, Neuroradiology ARZ LOS, Muskuloskeletal FLA LOS N/A Digital Radiography 10/13/2022 9:09 AM CDT Impressions 10/13/2022 9:12 AM CDT L3-S1 posterior spinal fixation hardware and decompressive laminectomies with bone grafting and interbody spacers at L3-L4 and L4-L5. No evidence of hardware failure. Unchanged slight anterolisthesis of L3 and L4. Multilevel facet arthropathy and degenerative disc space narrowing, greatest at L1-L2. Demineralization. Degenerative changes both SI joints. Vascular calcifications. Surgical clips overlie the right proximal sacrum. Narrative 10/13/2022 9:12 AM CDT EXAM: DX LUMBAR SPINE 2-3 VIEWS Procedure Note Florentino Crespo D.O. - 10/13/2022 EXAM: DX LUMBAR SPINE 2-3 VIEWS IMPRESSION: L3-S1 posterior spinal fixation hardware and decompressive laminectomieswith bone grafting and interbody spacers at L3-L4 and L4-L5. No evidence of hardwarefailure. Unchanged slight anterolisthesis of L3 and L4. Multilevel facet arthropathy anddegenerative disc space narrowing, greatest at L1-L2. Demineralization. Degenerative changes both SI joints. Vascular calcifications. Surgical clips overlie the right proximalsacrum. Reina Zamorano P.A.-C. IMG DIAGNOSTIC IMAGING PROCEDURES Final Result documented in this encounter Visit Diagnoses Diagnosis Fusion Lumbar Spine Status Post Stenosis Spinal documented in this encounter Care Teams Materials Assistant Relationship Specialty Start Date End Date Elsewhere, Pcp PCP - General Internal Medicine 05/10/22 documented as of this encounter
--- OUTSIDE RECORDS SUMMARY | 2024-05-21 14:09 | XMS_ITS | Encounter Summary ---
Author Organization [facility] Address [address] [place] [address] Care Team Providers Care Mortgage Professional Name Role Phone Elsewhere, Pcp Primary Care Provider Unavailabl e Reason for Referral * Outpatient (Routine) - Closed Specialty Diagnoses / Procedures Referred By Chanel t Referred To Contact Neurological Surgery Nelson Esqueda M.D. 200 [place] [address] Phone: tel: fax: [facility] Referral ID Status Reason Start Date Expiration Date Visits Re quested Visits Authorized [id number] Closed 01/04/2023 01/03/2026 1 1 Reason for Visit * Outpatient (Routine) - Closed Specialty Diagnoses / Procedures Referred By Chanel segovia Referred To Contact Neurological Surgery Stu Hahn M.D., M.B.A. [facility] Referral ID Status Reason Start Date Expiration Date Visits Re quested Visits Authorized [id number] Closed 10/13/2022 10/12/2025 1 1 Encounter Details Date Type Department Care Team (Late st Contact Info) Description 01/04/2023 11:30 AM CDT Office Visit Department of Neurologic Surgery in [place], [place] [address] [place] [phone] Nelson Esqueda M.D. [address] [place] [phone] Fusion Lumbar Spine Status Post (Primary Dx) Social History Tobacco Use Types [...] How often do you attend chur or judaism services? More than 4 times per year 08/15/2022 Do you belong to any clubs o r organizations such as voodoo groups, unions, fraternal or athletic groups, or [...] and heating? Not hard at all 08/15/2022 [facility] - Occupational Stress Questionnaire Answer Date [...] Sex Assigned at Female 05/11/2022 7:48 AM OIL TESTER Legal Sex Female 9:30 PM OIL TESTER Gender Identity Female 05/11/2022 7:48 AM OIL TESTER Sexual Orientation Straight 05/11/2022 7: 48 AM OIL TESTER documented as of this encounter Last Filed Vital Signs Vital Sign Reading Time Taken Comments Blood Pressure - - Pulse - - Temperature 36.1 C (97 F) 01/04/2023 11:07 AM CDT Respiratory Rate - - Oxygen Saturation - - Inhaled Oxygen Concentration - - Weight 62.8 kg (138 lb 5.4 oz) 01/04/2023 11:07 AM CDT Height 162.8 cm (5' 4.09) 01/04/2023 11:07 AM C DT shoes on Body Mass Index 23.68 01/04/2023 11:07 AM CDT documented in this encounter Progress Notes * Nelson Esqueda M.D. - 01/04/2023 11:30 AM CDT CHIEF COMPLAINT / REASON FOR VISIT Gladys Zamarripa is a 72 y.o. female who presents for follow-up. HISTORY OF PRESENT ILLNESS Mrs. Zamarripa is a 72-year-old female, accompanied by her , who is approximately 4 months status post L3-S1 posterior lumbar instrumented fusion and L3-4 and L4-5 transforaminal lumbar interbody fusion. The patient reports that she is doing well overall. She still has some bilateral foot numbn ess/tingling/proprioception deficits. The patient had a successful course of physical therapy. However about 2 weeks ago she fell and suffered a tibial plateau fracture. She is on crutches or a walker for this and will undergo physical therapy for this. She says that this was a mechanical fall and not due to her bilateral lower extremity proprioception deficits which were present prior to surgery and perhaps improved but have now plateaued since last follow-up. I mentioned to her that if interested she could get a different type ofshoe that would help her feel more stable however she did not seem interested and feels that her balance and gait are good especially when she uses a walking stick to slow down her van. She denies any new weakness. She denies any bowel or bladder symptoms. The following portions of the patient's history were reviewed and updated as appropriate: allergies, current medications, family history, medical history, social history, surgical history, and problem list. OBJECTIVE PHYSICAL EXAM Bilateral iliopsoas 4- out of 5, bilateral quadriceps 4/5, bilateral tibialis anterior 4/5, left extensor hallucis longus 4- out of 5 DIAGNOSTICS Lumbar spine radiographs demonstrate: Demineralization. Instrumented spinal fusion L3-S1 with decompression and posterolateral bone graft. Scattered degenerative disc disease of the remaining lumbar spine greatest at L1-2. Low-grade lumbar subluxations. ASSESSMENT / PLAN Patient Active Problem List [...] symptoms as well as imaging in follow-up. Follow-up lumbar radiographs demonstrate intact instrumentation, preserved alignment, and no evidence of hardware failure. I discussed with the patient further follow-up which would include a six-month postoperative follow-up with lumbar radiographs. The patient was in agreement. All questions were answered. I spent 10 minutes in consultation with the patient, >50% of this time was spent in counseling and coordination of care. All questions were answered, and the patient/family demonstrated agreement with the plan. Realistic expectations were provided. There were no barriers to our conversation. Nelson Esqueda M.D. documented in this encounter Plan of Treatment Upcoming Encounters Date Type Department Care Team (Latest Contact Info) Description 05/29/2024 12:15 PM OIL TESTER Clinical Communication Virtual Review in [place], [place] 200 [place] [phone] 05/31/2024 11:00 AM OIL TESTER Appointment Department of Laboratory Medicine and Pathology, [facility], in [place], [place] [address] [place] [phone] Patricia Parker APRN, C.N.P., D.N.P. [address] [place] [phone] 05/31/2024 2:00 PM OIL TESTER Comprehensive Visit Preoperative Evaluation Center in [place], [place] [address] [place] [phone] Arianna Jeffries M.D. [address] [place] [phone] 05/31/2024 2:45 PM OIL TESTER Comprehensive Visit Preoperative Evaluation Center in [place], [place] [address] [place] [phone] Chris Moreno, JOHNSON, C.N.P., M.S. [address] [place] [phone] 06/03/2024 8:15 AM OIL TESTER Hospital Encounter Post Anesthesia Care Unit in [place], [place] [address] [place] [phone] Tahir Moore M.D. [address] [place] [phone] 06/03/2024 8:15 AM OIL TESTER - 06/03/2024 2:12 PM OIL TESTER Surgery [facility] OR [address] [place] [phone] Tahir Moore M.D. [address] [place] [phone] C1-2 fusion 07/02/2024 11:00 AM OIL TESTER Procedure visit Division of Pain Medicine in [place], [place] [address] [place] [phone] Adam Barlow M.D. [address] [place] [phone] Scheduled Procedures Name Priority Associated Diagnoses Date/Ti me 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 06/03/2024 8:15 AM OIL TESTER Scheduled Referrals Name Type Priority Associated Diagnoses Order Schedule Neurological Surgery office visit (clinic) Outpatient Referral Routine Expect ed: 04/06/2023 (Approximate), Expires: 04/06/2024 documented as of this encounter Visit Diagnoses Diagnosis Fusion Lumbar Spine Status Post- Primary Stenosis Spinal documented in this encounter Care Teams Mortgage Professional Relationship Specialty Start Date End Date Elsewhere, Pcp PCP - General Internal Medicine 05/10/22 documented as of this encounter
--- OUTSIDE RECORDS SUMMARY | 2024-05-21 14:10 | XMS_ITS | Encounter Summary ---
Author Organization [facility] Address [address] [place] [address] Care Team Providers Care Supervisor Drawing Name Role Phone Elsewhere, Pcp Primary Care Provider Unavailabl e Encounter Details Date Type Department Care Team (Latest Contact Info) Description 08/31/2022 6:16 AM CDT - 09/04/2022 3:08 PM CDT Hospital Encounter [facility], [facility], [facility], Ninth Floor [address] [place] [address] Frederick Zheng M.D. [address] [place] [address] Spinal Stenosis Lumbar Region Without Neurogenic Claudication (Primary Dx); Stenosis Spinal; Decline Functional Status [R53.81 (ICD-10-CM)] Discharge Disposition: Home or Self Care Social [...] How often do you attend chur or anabaptism services? More than 4 times per year 08/15/2022 Do you belong to any clubs o r organizations such as confucianist groups, unions, fraternal or athletic groups, or [...] and heating? Not hard at all 08/15/2022 [facility] [place] of Occupat ional Health - Occupational Stress [...] Sex Assigned at Female 05/11/2022 7:48 AM OUTREACH DIRECTOR Legal Sex Female 9:30 PM OUTREACH DIRECTOR Gender Identity Female 05/11/2022 7:48 AM OUTREACH DIRECTOR Sexual Orientation Straight 05/11/2022 7: 48 AM OUTREACH DIRECTOR documented as of this encounter Last Filed Vital Signs Vital Sign Reading Time Taken Comments Blood Pressure 140/92 09/04/2022 2:40 PM CDT Pulse 101 09/04/2022 2:40 PM CDT Temperature 36.9 C (98.4 F) 09/04/2022 2:40 PM CDT Respiratory Rate 16 09/04/2022 2:40 PM CDT Oxygen Saturation 100% 09/04/2022 2:40 PM CDT Inhaled Oxygen Concentration - - Weight 57 kg (125 lb 10.6 oz) 08/31/2022 7:27 AM CDT Height 162.6 cm (5' 4) 08/31/2022 7:27 AM CDT Body Mass Index 21.57 08/31/2022 7:27 AM CDT documented in this encounter Discharge Summaries * Calvin Escalera M.D., Ph.D. - 09/04/2022 3:08 PM CDT DISCHARGE SUMMARY BRIEF OVERVIEW Hospital: [facility] Discharge Provider: Frederick Zheng M.D. Primary Care Providers: Elsewhere, Pcp (General) No address on file Primary Care Provider Phone Number: None Primary Care Provider Fax Number: None Other Providers: None Admission Date: 08/31/2022 Discharge Date: 09/04/2022 PRINCIPAL DIAGNOSIS Stenosis Spinal SECONDARY DIAGNOSES Principal Problem: Stenosis Spinal Active Problems: Spinal Stenosis Lumbar Region Without Neurogenic Claudication Resolved Problems: * No resolved hospital problems. * Surgery Information This Encounter Past Procedures (09/04/2021 to Today) Date Procedures Providers Location 08/31/2022 L3-S1 Fusion, TLIF at L3/4, L4/5. Frederick Zheng M.D.Stu Hahn M.D.Armani Jimenez M.D., Ph.D.Jacob Ramirez M.D. [facility] OR DISCHARGE DISPOSITION Home or Self Care [1] ACTIVE ISSUES REQUIRING FOLLOW UP You may have questions or concerns that fall in to the following categories/scenarios: 1. Neurosurgery Follow-Up 2. Emergent Clinical Issue Requiring Immediate Attention 3. Routine Clinical Questions 4. Medication Refills 5. Non-Neurosurgery Follow-Up Please address each of these issues using the following approach (note: this approach may not coverevery possible scenario you could encounter and in the event of a medical emergency you should [id number]): 1. Neurosurgery Follow-Up: Follow-up appointments will be scheduled as discussed with Chief C or their service. If indicated, we will arrange this for you, and we will reach out with the exact date and time once your appointment has been scheduled. Should follow- up imaging be needed, it will be scheduled to occur prior to your visit with us. If you have any questions and/or need to change an appointment, please call the distance learning program coordinator, who can be reached at [phone]. 2. Emergent Clinical Issue: For routine clinical questions, please address as stated above during regular business hours (Monday-Monday, 8am-5pm). For emergent concerns during regular business hours please call the [facility] Jewelry Mold Maker at [phone] and ask to speak to Chief C's Neurosurgery Service; the forging press operator will connect you with one of our neurosurgery providers at the hospital. If you have an emergent issue during the evening or weekend hours, please call the [facility] [employer]el[employer] Maker at [phone] and ask to speak to Chief C's Neurosurgery Service; the forging press operator will connect you emergently to a physician on the neurosurgery team who is taking call from home. 3. Routine clinical questions and/or 4. Medication refills: For routine clinical questions (questions that can be answered within 24 hours) the preferred method of communication is the [facility] Patient Portal. Questions for Chief C's service and/or medication refills would be best asked through the portal. If you do not have access to the portal, you maycall the neurosurgery office directly at [phone] during normal business hours for any questions or concerns. 5. Non-Neurosurgery Follow-Up: Please follow up with your primary care provider within one week of discharge to discuss your recent hospitalization. Take a copy of this dismissal summary to your appointment(s). Please resume your home medications as specified in your discharge summary medication list. Medications that should be held, discontinued, and/or modified will be specified. --- POST-OPERATIVE RECOMMENDATIONS --- Incision: You have a surgical incision and should monitor for signs and symptoms of infection which include, but are not limited to, redness at the site of the incision, purulent drainage from the incision, separation of the wound edges, nausea, vomiting, general malaise, fevers greater than 101.5 degrees Fahrenheit, and chills. If these occur in combination and/or if there is gross purulence coming from the wound, you should call the [facility] [employer]ry [employer] Maker at [phone] and ask to speak to the resident reimbursement consultant for the Chief C Neurosurgery service, or call your primary care provider. Alternatively, youmay contact the Neurosurgery outpatient offices by calling [phone] and asking to be connected to the Neurosurgery office. The nurse that you speak with will ask that you send a wound photo to the Neurosurgery photo email inbox: [email or web address]. In the email, please include your name, [facility] number (MC#) and surgeon's name. The inbox is only monitored from 8 am-5 pm, Monday-Monday. The surgical wound should be kept clean, and this is best accomplished by letting shower water run across it and by lightly cleansing with normal shampoo. The wound should not be immersed in water (i.e., hot tub, bath tub, swimming, etc.) for a period of six weeks. You should watch for signs of cerebral spinal fluid leakage, which would manifest as persistent drainage of thin light- to moderate-colored fluid from the incision; please contact the service should this occur. Wound Closure Your skin wound has been approximated with absorbable (dissolvable) subcuticular sutures which require no further care. Steri-Strips have been placed across the wound. Leave these in place until theyfall off. If any remain 2 weeks after surgery, you should remove them at that point. Activity: You should not lift more than 15-20 pounds for 12 weeks. It is best to avoid strenuous exercise or activity, other than walking, for approximately 12 weeks. Pain Management: Take your pain medications as instructed. It is best to take pain medications before your pain becomes severe. This will allow you to take less medication yet have better pain relief. For the first 2-3 days, it may be helpful to take your pain medications on a regular schedule (e.g. every 4 to 6 hours). This will help you to keep your pain under better control. You should then begin to take fewermedications each day until you no longer need them. YOU HAVE HAD A SPINAL FUSION SURGERY AND SHOULD AVOID NSAIDS: Non-Steroidal Anti-Inflammatory Drugs (NSAIDs), such as Advil (ibuprofen) and meloxicam can interfere with proper bone healing after a fusion. Please refrain from taking these medications for 3 months. Taking pain medication on an empty stomach may lead to nausea and vomiting; therefore, it is best to try to take pain medications with meals or with a light snack. Do not consume more than 4000 mg or 4 gm of Tylenol or acetaminophen-containing products (Percocet,Vicodin, etc.) within a 24 hour time period to avoid damage to your liver. Do not drive, operate heavy machinery, ride motorcycles or ATVs, drink alcohol, or take other drugsthat make you tired or sleepy while taking narcotic pain medications (Percocet, Vicodin, oxycodone,etc.). Do not participate in any dangerous activity while taking pain medications. Pain medicationsmay decrease your ability to make safe decisions. If you require further narcotic medication withinone month of your surgery, please contact us; should you require additional narcotic medication thereafter, please contact us and/or your primary care provider who can determine if you are experiencing a complication from your surgery. Constipation: Pain medications as well as anesthesia and surgery itself can cause constipation. If you experienceconstipation, reduce your narcotics dose if possible, and try remedies such as ensuring you are well hydrated, prune juice or [id number] MiraLAX once daily as prescribed, and light exercise such as walking. Coffee and other caffeinated beverages will also help those who routinely drink them. OUTPATIENT FOLLOW UP Scheduled Appointments 10/13/2022 9:00 AM [facility] 14 RM 340 Radiology 10/13/2022 11:30 AM Stu Hahn M.D. Neurological Surgery For appointment details refer to your Patient Appointment Guide. TEST RESULTS PENDING AT DISCHARGE Pending Labs None DETAILS OF HOSPITAL STAY REASON FOR ADMISSION Stenosis Spinal Spinal Stenosis Lumbar Region Without Neurogenic Claudication HOSPITAL COURSE On the day of admission, Gladys Zamarripa was taken to the operative room by Dr. Chief Quintanilla for the procedure listed above. The intraoperative as well as the immediate postoperative course were uncomplicated. She was transferred from the PACU to the general neurosurgical floor. She did well overnight. Post-operative x-rays were obtained to serve as a baseline against which future imaging would be compared; spinal instrumentation appeared intact without evidence of hardware failure or malpositioning. Occupational therapy and physical therapy were consulted for assistance with mobilization and physical therapy; the physical medicine and rehabilitation team was consulted to determine candidacy for inpatient rehabilitation. She had an overall uneventful recovery, with improvement in preoperative exam. She remained at her neurologic baseline. After meeting dismissal criteria and at the recommendations of PT/OT, she was discharged home. Clear return precautions were provided, and specific dismissal instructions were reviewed. All appropriate follow-up appointments and/or imaging were scheduled. CONSULTS ORDERED DURING THIS ADMISSION None CONDITION AT DISCHARGE stable Discharge instructions were provided to the patient and caregiver(s). Total time spent in discharge services today: 30 minutes. documented in this encounter Discharge Instructions * Discharge Instructions* Leslie Armstrong - 09/02/2022 2:57 PM CDT NEUROSURGERY FOLLOW UP RECOMMENDATIONS: The patient will need a Lumbar Spine Xray and a Neurosurgery follow up in approximately 6 weeks. These appointments will be scheduled and given at discharge. The patient will also need Lumbar Xray's and a Neurosurgery return in approximately 3 months and 6 months, and a Lumbar CT scan and Neurosurgery return in approximately 1 year. These will be scheduled once the calendars open and you will be notified. If you have any questions about the appointment(s), please contact the Neurosurgery Patient Appointment Service Specialists at . * Attachments The following attachments cannot be sent through Care Everywhere. * Acetaminophen (By mouth) (Dominican) * Bisacodyl (By mouth) (Dominican) * Oxycodone, Rapid Release (By mouth) (Dominican) * Polyethylene Glycol 3350 (By mouth) (Dominican) * Laxative, Stimulant (By mouth) (Dominican) documented in this encounter Medications at Time [...] mg by mouth daily. 2 08/01/19 24 gabapentin (NEURONTIN) 300 mg capsule Take 300 mg by mouth 2 (two) times a day. 2 05/25/19 24 lisinopriL (PRINIVIL,ZESTRI L) 5 mg tablet Take 5 mg by mouth 2 (two) times a day. 2 08/11/19 24 oxyCODONE (ROXICODONE) 5 mg immediate release tabletIndication [...] in 240 mLs (8 ounces) of beverage. 3 01/04/20 23 sennosides-docus ate sodium (SENOKOT-S) [...] as of this encounter Progress Notes * Calvin Escalera M.D., Ph.D. - 09/04/2022 6:13 AM CDT Images from the original note were not included. Neurosurgery Progress Note SUBJECTIVE HD#4 status post L3-S1 fusion and L3/4 and L4/5 TLIF Brief Summary: 72-year-old female who presents for evaluation of low back and bilateral leg pain. Patient reports these symptoms have been ongoing for approximately 2-3 years. She reports that physical therapy was helpful initially. A month or 2 ago, the patient reports her symptoms began to worsen and she could no longer tolerate physical therapy. She reports bilateral low back pain that extends into her legs bilaterally along the lateral aspect of the leg. This does not extend below the knee. She reports that her symptoms worsened with walking and improved with bending forward. She denies any bowel or bladder symptoms. Underwent L3-S1 fusion and L3/4 and L4/5 TLIF on 08/31 without complication. Intraoperative monitoring did not show any changes. Interval Events: NAEON, AFVSS Subfascial drains (x2) to bulb suction, outputs noted below OBJECTIVE Intake/Output Summary (Last 24 hours) at 09/04/2022 0845 Last data filed at 09/04/2022 0811 Gross per 24 hour Intake 1040 ml Output 238 ml Net 802 ml Output by Drain (mL) 09/02/22 0701 - 09/02/22 1900 09/02/22 1901 - 09/03/22 0700 09/03/22 0701 - 09/03/22 1900 09/03/22 190 - 09/04/22 0700 09/04/22 0701 - 09/04/22 0845 Closed/Suction Drain 1 Inferior;Left Back Bulb 10 Fr. 140 85 68 45 Closed/Suction Drain 2 Inferior;Right Back Bulb 10 Fr. 65 110 70 55 Vitals: Temperature: [36.9 ??C-37 ??C] 37 ??C Resp Rate: [14-18] 16 Blood Pressure: (116-135)/(70-92) 135/92 SpO2: [98 %-100 %] 98 % Pulse Rate: [91-118] 100 Temp (24hrs), Av.9 ??C, Min:36.9 ??C, Max:37 ??C Last BM Date: 09/03/22 Exam: AOx3. Full strength in BUE and BLE. Sensation grossly intact. Negative Pardo's and Babinski. Labs: Recent Labs 09/04/22 0428 WBC 4.0 HGB 8.0 L HCT 23.9 L PLT 125 L Recent Labs 09/02/22 1409 09/02/22 0453 NA 131 L 130 L KSERUM -- 4.3 CL -- 97 L BICARB -- 25 BUN -- 9 CREATININE -- 0.76 GLUCOSE -- 99 CALCIUM -- 8.4 L #1 Stenosis Spinal #2 Spinal Stenosis Lumbar Region Without Neurogenic Claudication PLAN Consider discharge 09/05/2019 103 versus 09/05/2022 pending drain output Transfuse pRBC 1U 09/04/2022 SBP <160 LSO brace when OOB Pain control: Acetaminophen 1g q6h PRN, oxycodone 2.5/5 mg q4h PRN, hydromorphone 0.2 mg q2h PRN for breakthrough Cefazolin 2g q8h while drains in place Diet: Regular Maintain 2 subfascial drains PT/ OT AntiCoag AntiPlatelet Meds IP/OP Heparins Refills Start End heparin (porcine) injection 5,000 Units 09/02/2022 5,000 Units, subcutaneous, Every 8 hours scheduled Direct Factor Xa Inhibitors Refills Start End rivaroxaban (XARELTO) 20 mg tablet 1 09/07/2022 Sig - Route: Take 1 tablet (20 mg total) by mouth daily. Okay to start retaking 1 week after surgery - oral Renewals Renewal requests to authorizing provider (Armani Jimenez M.D., Ph.D.) <b>prohibited</b> rivaroxaban tablet 20 mg (XARELTO) 09/07/2022 20 mg, oral, Daily with dinner --- Neurosurgery Chief C, [phone] * Armani Jimenez M.D., Ph.D. - 09/03/2022 5:46 AM CDT Images from the original note were not included. Neurosurgery Progress Note SUBJECTIVE HD#3 status post L3-S1 fusion and L3/4 and L4/5 TLIF Brief Summary: 72-year-old female who presents for evaluation of low back and bilateral leg pain. Patient reports these symptoms have been ongoing for approximately 2-3 years. She reports that physical therapy was helpful initially. A month or 2 ago, the patient reports her symptoms began to worsen and she could no longer tolerate physical therapy. She reports bilateral low back pain that extends into her legs bilaterally along the lateral aspect of the leg. This does not extend below the knee. She reports that her symptoms worsened with walking and improved with bending forward. She denies any bowel or bladder symptoms. Underwent L3-S1 fusion and L3/4 and L4/5 TLIF on 08/31 without complication. Intraoperative monitoring did not show any changes. Interval Events: NAEON, AFVSS Drain output 350 cc total/ 24h (145 cc overnight). See details below. Worked with PT/ OT yesterday, safe for home discharge with spouse support on certain tasks Upright lumbar Xrays obtained yesterday BM on 09/02 OBJECTIVE Intake/Output Summary (Last 24 hours) at 09/03/2022 0546 Last data filed at 09/03/2022 0245 Gross per 24 hour Intake 1989 ml Output 351 ml Net 1639 ml Output by Drain (mL) 09/01/22 07 - 09/01/22 19009/01/22 190 - 09/02/22 0700 09/02/22 07 - 09/02/22 1900 09/02/22 190 - 09/03/22 0546 Closed/Suction Drain 1 Inferior;Left Back Bulb 10 Fr. 100 155 140 75 Closed/Suction Drain 2 Inferior;Right Back Bulb 10 Fr. 220 90 65 70 Vitals: Temperature: [36.7 ??C-37.1 ??C] 36.7 ??C Resp Rate: [15] 15 Blood Pressure: (117-131)/(80-98) 131/89 SpO2: [97 %-100 %] 97 % Pulse Rate: [107-115] 115 Temp (24hrs), Av.9 ??C, Min:36.7 ??C, Max:37.1 ??C Last BM Date: 09/03/22 Exam: AOx3. Full strength in BUE and BLE. Sensation grossly intact. Negative Pardo's and Babinski. Labs: Recent Labs 09/02/22 0453 WBC 5.7 HGB 9.1 L HCT 26.8 L PLT 108 L Recent Labs 09/02/22 1409 09/02/22 0453 09/01/22 0423 08/31/22 1513 NA 131 L 130 L < > 132 L KSERUM -- 4.3 < > -- KBLOOD -- -- -- 4.2 CL -- 97 L < > -- BICARB -- 25 < > -- BUN -- 9 < > -- CREATININE -- 0.76 < > -- GLUCOSE -- 99 < > 99 CALCIUM -- 8.4 L < > -- < > = values in this interval not displayed. Recent Labs 08/31/22 1340 PT 11.4 INR 1.0 APTT 25 #1 Stenosis Spinal #2 Spinal Stenosis Lumbar Region Without Neurogenic Claudication PLAN SBP <160 LSO brace when OOB Pain control: Tylenol 1g q6h PRN, Oxycodone 2.5/5 mg q4h PRN, hydromorphone 0.2 mg q2h PRN for breakthrough Ancef 2g q8h while drains in place Diet: Regular Maintain 2 subfascial drains PT/ OT Dispo: Floor AntiCoag AntiPlatelet Meds IP/OP Heparins Refills Start End heparin (porcine) injection 5,000 Units 09/02/2022 5,000 Units, subcutaneous, Every 8 hours scheduled --- Neurosurgery Chief C, [phone] * Amaris Pride P.T., D.P.T. - 09/02/2022 10:52 AM CDT Physical Therapy Inpatient Treatment Note SUBJECTIVE Patient's Name: Gladys Zamarripa Referring/Attending: Frederick Zheng M.D. Medical Diagnosis: Stenosis Spinal [M48.00] Spinal Stenosis Lumbar Region Without Neurogenic Claudication [M48.061] Reason for Referral: PT Evaluate and Treat PT evaluate and treat; ortho Onset Date: 08/31/22 Payor: MEDICARE / Plan: MEDICARE A AND B / Product Type: Medicare / History of Present Illness: Patient is a pleasant 72-year-old female postop day 1 following L3-S1 Fusion, TLIF at L3/4, L4/[address] Zheng Family/Caregiver Present: No Patient/Caregiver Goals: To return to her prior level of function. Patient Comments: Patient awake in recliner upon arrival, agreeable to PT session. She did not formally rank any pain this session. Precautions Other Precautions: spinal; LSO when out of bed; fall Fall Risk (65 and older) Fall in the last 12 months: Yes Did you have an injury with the fall?: No Are you fearful of falling?: No Fall Risk Comments: Patient endorses 6 falls in the last year. Her most recent fall was approximately 3 weeks ago, and patient does not know the mechanism of the fall (She reports her knees didn't buckle and she did not lose balance) OBJECTIVE Per nursing and occupational therapy, patient's blood pressure within normal limits. Nursing present at the beginning of the session. Time and care taken to optimize the patient's environment to promote safety and success throughout the session. Lines and tubes maintained appropriately. Treatment consisted of: Sit to Stand Transfers # of Assistants: 1 Transfer Surface: Chair Transfer Equipment: Gait belt, Front wheeled walker Level of Assistance: Contact guard assistance Assessment/Delivery: Assessed, Facilitated Comments: Verbal cues provided for safe hand placement. Contact guard assistance provided for patient's safety. Stand to Sit Transfers # of Assistants: 1 Transfer Surface: Chair Transfer Equipment: Gait belt, Front wheeled walker Level of Assistance: Contact guard assistance Assessment/Delivery: Assessed, Facilitated Comments: Verbal cues provided for alignment to transfer surface, safe hand placement, and walker management. Balance Static Sitting-Balance: Good (Maintains balance without support) Dynamic Sitting-Balance: Good (Maintains balance without support) Static Standing-Balance: Fair (Maintains balance with handheld/contact guard assistance) Dynamic Standing-Balance: Fair (Maintains balance with handheld/contact guard assistance) Gait Assessment/Training Distance (m): 105 m Surface: Even, Smooth/hard Device: Gait belt # of Assistants: 1 Level of Assistance: Contact guard assistance, Supervision/Set-up Quality/Pattern: Step-to Stability: Fair with front wheeled walker session; Patient able to self-correct losses of balance. Assessment of Gait: Decreased step length bilaterally resulting in overall decrease in gait speed. Good upright posture and forward gaze observed. Cueing Provided: Verbal Training/Intervention: Verbal cues provided for walker management, advising the patient to ???push?? the walker instead of picking it up each time she takes a step. Patient able to progress to step-through pattern this session with cues. Patient demonstrating mild loss of balance with head turning. Response: No adverse effects observed. Stairs/Curb # Stairs: 4 Rails: 1 Device: Gait belt # of Assistants: 1 Level of Assistance: Contact guard assistance Stair Navigation Pattern-Ascending: Side-step with unilateral rail, Step-to pattern Stair Navigation Pattern-Descending: Side-step with unilateral rail, Step-to pattern Cueing Provided: Verbal Stability: Fair with unilateral railing; no overt loss of balance observed. Training/Intervention: Patient educated on sidestep pattern for stair negotiation with unilateral railing. Response: No adverse effects observed. Patient/Caregiver Education Completed this Session: Role of PT in acute care PT POC Safe Transfer/Mobility Techniques Discharge Planning Spinal Precautions Assistive device use Gait/stair training Activity pacing techniques, Energy Conservation principles Patient's nurse was contacted and patient's status was discussed, Discussed patient's care with OT Patient was left in bedside chair at end of session with call light in reach, all needs met and questions answered. Outcome Measures [facility] Inpatient Short Form: -[facility] Basic Mobility (V.2) How much help [...] 3-5 steps with a railing?: A Little -[facility] Basic Mobility (V.2) Raw Score: 18 -[facility] Basic Mobility (V.2) Standardized Score: 41.05 Interpretation: Clinicians answer the -[facility] Inpatient Short Form based on observed patient activity and/or clinical judgement (ie. patient can be scored without physically performing each activity) Based on scoring guidelines using the raw score value: Those going to home had an average score at or above 18 Those going to facility had an average score at or below 17 Assessment Discharge Therapy Needs - PT: No further skilled therapy (Pending course of hospitalization) Skilled therapy can include physical therapy provided by home health, outpatient clinic, or a post-acute facility. The location of these services is determined by the patient's care team in partnership with patient/family. Level of Care Needed - PT: Assistance with walking and moving around the home, Assistance with bed mobility, Assistance with stairs Equipment Recommended - PT: Front-wheeled walker Patient owns Barriers to Discharge Home: Fall risk From a physical therapy perspective, the level of care above has been recommended for Ms. Zamarripa after hospital discharge. This level of care is based on her functional abilities during today's session. This may change throughout the hospital course and will be updated as appropriate. Clinical Impression of today's session: Overall the patient tolerated today's session while. She did not formally endorse any pain and vitals were within per nursing report. She was able to perform all transfers with grossly contact guard assistance or less. She ambulated 105 m with front wheeled walker and supervision to contact guard as sistance. She did demonstrate and instance of loss of balance with head turning during ambulation, but was able to self-correct. The patient also completed 4 stairs with use of unilateral railing andclose contact guard assistance. She benefits from cues for safety awareness. PT continues to recommend assist x1 and front wheeled walker for all transfers with nursing. Plan next session to assess bed mobility, assess balance, and continue progressing ambulation. The patient is not at functional baseline and will continue to benefit from skilled therapy intervention to restore and maximize function, maximize safety, optimize mobility, teach and educate familyand/or caregivers, and facilitate return to prior level of function. Rehab potential: Ms. Zamarripa has Good potential to achieve established physical therapy goals within the time frame outlined below. Progress: Progressing toward goals Functional Goals and Timeframes: PT Inpatient Goals PT Goal #1: Patient will demonstrate bed mobility with modified independence per her home set up promote independence within their home. PT Goal #1 Status: Ongoing PT Goal #2: Patient will demonstrate all transfers with modified independence and least restrictiveassistive device to promote independence within their home. PT Goal #2 Status: Progressing PT Goal #3: Patient will ambulate 30m with least restricted assisted device and modified independence to promote independence within their home. PT Goal #3 Status: Progressing PT Goal #4: Patient will demonstrate understanding of lower extremity home exercise program to promote functional strength and mobility upon discharge. PT Goal #4 Status: Ongoing Plan Treatment Plan: Plan: Continue with current plan PT Frequency: PT Amount: 1 visit per day PT Frequency: 5 times per week PT Inpatient Duration : Until goals are met or hospital discharge Requires Inpatient Follow-Up: Yes PT - Next Inpatient Appointment: 09/05/22 PT Plan Comments: Assess bed mobility (patient has adjustable bed at home), progress independence with transfers, progress ambulation with front wheeled walker. Trial stair negotiation if patient desires. Treatment interventions may include: Treatment/Interventions: Therapeutic exercise, Therapeutic functional activity, Neuromuscular re-education, Gait training, Self-care/home management Billing: Time Spent with Patient Therapeutic Interventions Therapeutic Activity (min): 17 min Time Tracking Total Timed Units (min): 17 min Total Treatment Time (min): 17 min Amaris Pride P.T., Flora.P.THomero * Aixa Gusman D.T.R. - 09/02/2022 10:45 AM CDT Patient was assessed and determined to be nutritionally stable. Clinical nutrition will sign off but will continue to screen per departmental guidelines. Please reconsult for any questions/concerns regarding patient's nutritional status. For questions about patient's nutritional care please contact pager [phone] on weekdays or weekends/holidays. * Debbie Person O.T. - 09/02/2022 9:02 AM CDT Occupational Therapy Acute Hospital Inpatient Treatment SUBJECTIVE Patient's Name: Gladys Zamarripa Referring/Attending Provider: Frederick Zheng M.D. 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 female who was admitted to [facility] in [place] on 08/31/2022 for Stenosis Spinal [M48.00] Spinal Stenosis Lumbar Region Without Neurogenic Claudication [M48.061]. Precautions Other Precautions: spinal; LSO when out of bed; fall Patient/Caregiver Goals: to discharge home and return to highest level of function Pain Assessment: Pain:5-6/10. Pain located in back near surgical site. Nursing had just provided pain medication, despite pain she was willing to mobilize with therapy. OT provided suggestions for pain relief with postioning. Subjective Comments: Patient agreeable to OT treatment session. Patient reports walking last evening in the ge, she currently had no immediate concerns about plans to dismiss home with spouse assistance. OBJECTIVE Vital Signs Vitals taken during session: Blood pressure: 127/79 mmHg and MAP: 91 Cognition Cognitive assessment method: Therapist observations Arousal/Alertness: Appropriate responses to stimuli Attention: Addressed, no concerns noted Initiation: No difficulty with initiation Orientation: Oriented X4 Following Commands: Follows all commands/directions without difficulty Memory: Addressed, no concerns noted Memory Comments: able to recall spinal precautions as well as education from prior day Safety/Judgment: Addressed, no concerns noted Treatment consisted of: Bed Mobility - Supine to Sit # of Assistants: 1 Level of Assistance: Supervision/Set-up, Modified Independent Device: None Cuing: Verbal Comments: Instructed patient in log roll technique, provided [id number] verbal cues for sequencing. Patient required no physical assistance Bed Mobility - Sit to Supine # of Assistants: 1 Level of Assistance: Modified Independent, Supervision/Set-up Device: None Cuing: Verbal Comments: Instructed patient to use reverse log roll technique, patient demonstrated understanding and required no physical assistance. Bed Mobility - Scooting # of Assistants: 1 Level of Assistance: Supervision/Set-up Device: None Cuing: Verbal Comments: Educated patient on how she can safely reposition self once she is supine in bed including flexing bilateral knees and bridging with use of BUE/elbows. She demonstrated understanding. Sit to Stand Transfers # of Assistants: 1 Transfer Surface: Bed Transfer Equipment: Gait belt, Front wheeled walker Level of Assistance: Contact guard assistance Assessment/Delivery: Assessed, Facilitated Comments: Instructed patient in optimal hand placement, patient is able to demonstrate and requiredno physical assistance. Stand to Sit Transfers # of Assistants: 1 Transfer Surface: Chair Transfer Equipment: Gait belt, Front wheeled walker Level of Assistance: Contact guard assistance Assessment/Delivery: Assessed, Facilitated Comments: Instructed patient in walker proximity and to assure alignment prior to reaching back, patient demonstrates good eccentric control. Toilet Transfers # of Assistants: 1 Transfer Surface: Toilet Transfer Approach: To and from, Ambulating Transfer Equipment: Grab bars, Front wheeled walker Level of Assistance: Contact guard assistance Assessment/Delivery: Assessed, Facilitated, Educated Toilet Transfers Comments: Educated patient on using left side grab bar to simulate left side sink at home, patient is able to demonstrate transfer on and off toilet with no more than contact guard assistance. Cues for walker management. Grooming Grooming Delivery: Educated Grooming Comments: Educated patient on two-cup method to maintain spinal precautions when completing standing oral hygiene task. Bathing Bathing Delivery: Educated Bathing Comments: Educated patient on completing showering tasks seated as needed to ensure spinal precautions are met and to prevent falls. Educated patient also on benefits of wall mounted grab bars however she reports having a tile shower and being unsure if she can install. Educated patient on having spouse present for showering task initially. UE Dressing UE Dressing Delivery: Educated, Assessed, Facilitated UE Dressing Items Included: Orthotic (LSO) UE Dressing Level of Assistance: Supervision/Set-up UE Dressing Location: Standing, Seated on edge of bed UE Dressing Comments: Facilitated patient donning/doffing LSO. Patient verbalizes and demonstrates understanding, completing standing to don and sitting to doff. Explained how spouse can be present and assist as needed. Educated patient on wearing a layer of clothing underneath brace. Educated patie nt on how to spot clean brace. Intimacy Sexual Activity: Addressed returning to intimacy, patient denies questions or concerns. Educated patient on completing tasks within spinal precautions. Adaptive Interventions Activity Modification/Work Simplification: Educated patient on the importance of slowly returning to activities, delegating tasks that are outside of precautions to family members. Adaptive Intervention/Education: Patient was educated on spinal precautions (no bending, twisting or lifting more that 10 lbs.) and how to apply those precautions to activities of daily living and functional transfers. ADL Comments ADL Comments: Collaborated patient regarding OT plan of care goals for today's treatment session. Facilitated transfers in room using front wheeled walker, patient required cues for walker proximity during mobility tasks. Reviewed home going education including maintaining spinal precautions and requesting assistance from spouse as needed. Education Provided: Educated patient on care for back and neck ([id number]). Provided visual and verbaldemonstration of techniques to assist with management of activities of daily living and instrumental activities of daily living following spinal surgery, reminding patient to keep in mind spinal precautions. Instructed patient in proper techniques for dressing, bed mobility, sleep positions, kitchen mobility/meal prep, and light housekeeping. Instructed patient in completing skin checks for incisional site and provided bathing instructions. Handouts provided:Caring for Your Back and Neck [id number] Team Communication:The patient's status was discussed and the following coordination of care occurred with the: RN PT Patient Disposition at the end of Treatment: Patient was left in bed at end of session with call light in reach, all needs met and questions answered. Outcome Measures [facility] Inpatient Short Form: Putting on and [...] 23 Daily Activities Standardized Score: 51.12 Interpretation: Clinicians answer the [facility] Inpatient Short Form based on observed patient activity and/or clinical judgement (ie. patient can be scored without physically performing each activity) Based on scoring guidelines using the raw score value: Those going to home had an average score at or above 18 Those going to facility had an average score at or below 17 Assessment Clinical Impression: Clinical Assessment in regard to today's therapy session: Patient is making good progress towards acute care OT goals. Blood pressure was within normal limits during session today. She is able to demonstrate donning/doffing of LSO and teach back spinal precautions. She is preparing appropriately for discharge home and will have spouse assist. Ongoing OT is warranted in the acute care setting to maximize functional independence and optimize safety. Therapy Recommendations Level of Assistance Required Today ADLs - Supervision IADLs - Maximal , spouse is capable to assist at discharge Edge of Bed - Modified Independent with log roll technique Transfers - Contact guard assistance and Front Wheeled Walker + LSO Level of Care Needed - OT: Assistance with toilet/shower transfers, Assistance with showering/bathing, Assistance with housekeeping, Assistance with shopping, Assistance with transportation, Physicalassistance needed Discharge Therapy Needs - OT: No further skilled therapy Skilled therapy can include occupational therapy provided by home health, outpatient clinic, or a post-acute facility. The location of these services is determined by the patient's care team in partnership with patient/family. Barriers to Discharge Home: None Rehab potential: Ms. Zamarripa has excellent potential to achieve established occupational therapy goals within the time frame outlined below. Functional Goals: OT Goal #1: Patient will demonstrate full body dressing modified including item retrieval with modified independence, using adaptive equipment or extra time, as necessary, to increase independence atdischarge. OT Goal #1 Status: Progressing OT Goal #2: Patient will demonstrate all aspects of toileting (transfer, hygiene and clothing management) with modified independence by discharge in order to maximize functional independence and decrease caregiver assistance. OT Goal #2 Status: Progressing OT Goal #3: Patient will verbalize and demonstrate an understanding of spine precautions by discharge in order to be able to return to prior level of function. OT Goal #3 Status: Achieved OT Goal #4: Provided with supervision, patient will demonstrate safety with shower task by discharge in order to return to prior level function. OT Goal #4 Status: Ongoing Progress: Progressing toward goals Plan Occupational Therapy Attestation Statement: Patient agrees with the plan of care and goals. OT Frequency: OT Amount: 1 visit per day OT Frequency: 5 times per week OT Inpatient Duration : Until goals are met or hospital discharge Requires Inpatient OT Follow-Up: Yes OT - Next Inpatient Appointment: 09/05/22 Plan: Continue with current plan OT Plan Comments: Next session: 1) standing grooming 2) full body dressing with clothing retrieval and shower Treatment interventions may include: Treatment Interventions: Therapeutic exercise, Therapeutic functional activity, Self-care/home management Billing: Time Spent with Patient Therapeutic Interventions Home Management Training (min): 24 min Time Tracking Total Timed Units (min): 24 min Total Treatment Time (min): 24 min Debbie Person O.T. * Armani Jimenez M.D., Ph.D. - 09/02/2022 5:29 AM CDT Images from the original note were not included. Neurosurgery Progress Note SUBJECTIVE HD#2 status post L3-S1 fusion and L3/4 and L4/5 TLIF Brief Summary: 72-year-old female who presents for evaluation of low back and bilateral leg pain. Patient reports these symptoms have been ongoing for approximately 2-3 years. She reports that physical therapy was helpful initially. A month or 2 ago, the patient reports her symptoms began to worsen and she could no longer tolerate physical therapy. She reports bilateral low back pain that extends into her legs bilaterally along the lateral aspect of the leg. This does not extend below the knee. She reports that her symptoms worsened with walking and improved with bending forward. She denies any bowel or bladder symptoms. Underwent L3-S1 fusion and L3/4 and L4/5 TLIF on 08/31 without complication. Intraoperative monitoring did not show any changes. Interval Events: NAEON, AFVSS Holding home CV meds given softer pressures overnight (109-114) Drain output 525 cc total/ 24h (205 cc overnight). See details below. Worked with PT/ OT yesterday OBJECTIVE Intake/Output Summary (Last 24 hours) at 09/02/2022 0529 Last data filed at 09/02/2022 0438 Gross per 24 hour Intake 1108 ml Output 2925 ml Net -1817 ml Output by Drain (mL) 08/31/22 0701 - 08/31/22 1900 08/31/22 190 - 09/01/22 0700 09/01/22 0701 - 09/01/22 1900 09/01/22 190 - 09/02/22 0529 Closed/Suction Drain 1 Inferior;Left Back Bulb 10 Fr. 30 225 100 135 Closed/Suction Drain 2 Inferior;Right Back Bulb 10 Fr. 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 Full strength in BUE and BLE. Sensation grossly intact. Negative Pardo's and Babinski. Labs: Recent Labs 09/01/22 0423 WBC 4.7 HGB 8.0 L HCT 23.8 L PLT 107 L Recent Labs 09/01/223 08/31/22 1513 NA 130 L 132 L KSERUM 4.8 -- KBLOOD -- 4.2 CL 98 -- BICARB 26 -- BUN 11 -- CREATININE 0.73 -- GLUCOSE 91 99 CALCIUM 9.1 -- Recent Labs 08/31/22 1340 PT 11.4 INR 1.0 APTT 25 #1 Stenosis Spinal #2 Spinal Stenosis Lumbar Region Without Neurogenic Claudication PLAN SBP <160 Upright lumbar Xray planned for today LSO brace when OOB Pain control: Tylenol 1g q6h PRN, Oxycodone 5/10 mg q4h PRN, hydromorphone 0.2 mg q2h PRN for breakthrough Ancef 2g q8h while drains in place Diet: Regular Maintain 2 subfascial drains PT/ OT Dispo: Floor AntiCoag AntiPlatelet Meds IP/OP Heparins Refills Start End heparin (porcine) injection 5,000 Units 09/02/2022 5,000 Units, subcutaneous, Every 8 hours scheduled --- Neurosurgery Chief C, [phone] * Stu Hahn M.D. - 09/01/2022 9:25 AM CDT This is a chief resident supervisory note; please see the rm resident documentation for furtherdetails regarding the history, physical exam, and preliminary plan of care. I agree with their assessment and plan, except as documented below. Interval History: Per Dr. Jimenez's documentation Drain output: 375 cc over the past 24 hours, 295 cc over the prior 12 hours Vitals: 09/01/22 0700 09/01/22 0715 09/01/22 0730 09/01/22 0745 BP: 114/68 114/68 Patient Position: Lying Pulse: 108 105 106 106 Heart Rate: Temp: 36.9 ??C 36.9 ??C Resp: Height: Weight: SpO2: 94% 100% 100% 100% TempSrc: Oral Pain Score: 4 Pain Location: Back Exam: Awake, alert, oriented x3, pupils equal round and reactive to light, no facial asymmetry, full strength in all 4 extremities Diagnostics: I have reviewed the pertinent imaging and findings as documented below. Assessment: #1 Stenosis Spinal #2 Spinal Stenosis Lumbar Region Without Neurogenic Claudication Mrs. Zamarripa is a 72-year-old female who is now postoperative day 1 status post L3-S1 posterior lumbar instrumented fusion, L3-L5 laminectomy decompression, and L3-4 and L4-5 transforaminal lumbar interbody fusion. She is doing well overall. Her hemoglobin is 1 was 8.0. The patient will be transfused to a hemoglobin goal of greater than 8. The patient's ionized calcium was normal. The patient's neurological examination is reassuring at this time. We will plan to mobilize the patient and continue drains in place with antibiotic prophylaxis at this time. We will obtain an LSO before mobilization of the patient. The patient is to wear this brace for 6 weeks and we will discuss further recommendations and management at her 6 week postoperative follow-up. We will initiate DVT chemoprophylaxison postoperative day 2. We will obtain standing lumbar radiographs as the patient's postoperative baseline. We will consult our colleagues in Physical Medicine Rehabilitation for their assessment and recommendations regarding the patient's mobility. If you have any questions or concerns please contact; Neurosurgery Chief C, [phone]. * Armani Jimenez M.D., Ph.D. - 09/01/2022 5:18 AM CDT Images from the original note were not included. Neurosurgery Progress Note SUBJECTIVE HD#1 status post L3-S1 fusion and L3/4 and L4/5 TLIF Brief Summary: 72-year-old female who presents for evaluation of low back and bilateral leg pain. Patient reports these symptoms have been ongoing for approximately 2-3 years. She reports that physical therapy was helpful initially. A month or 2 ago, the patient reports her symptoms began to worsen and she could no longer tolerate physical therapy. She reports bilateral low back pain that extends into her legs bilaterally along the lateral aspect of the leg. This does not extend below the knee. She reports that her symptoms worsened with walking and improved with bending forward. She denies any bowel or bladder symptoms. Underwent L3-S1 fusion and L3/4 and L4/5 TLIF on 08/31 without complication. Intraoperative monitoring did not show any changes. Interval Events: NAEON, AFVSS Holding home CV meds given softer pressures overnight (97-125) Drain output 375 total/24h. See details below. OBJECTIVE Intake/Output Summary (Last 24 hours) at 09/01/2022 0518 Last data filed at 09/01/2022 0400 Gross per 24 hour Intake 6730.17 ml Output 4650 ml Net 2080.17 ml Output by Drain (mL) 08/30/22 0701 - 08/30/22 1900 08/30/22 190 - 08/31/22 0700 08/31/22 0701 - 08/31/22 1900 08/31/22 190 - 09/01/22 0518 Closed/Suction Drain 1 Inferior;Left Back Bulb 10 Fr. 30 225 Closed/Suction Drain 2 Inferior;Right Back Bulb 10 Fr. 50 70 Vitals: Temperature: [36.4 ??C-37.2 ??C] 36.6 ??C Heart Rate: [89-93] 91 Resp Rate: [9-25] 14 Blood Pressure: (85-146)/(53-105) 101/65 Arterial Line BP: (113-142)/(69-98) 142/73 SpO2: [89 %-100 %] 96 % Flow Rate (L/min): [1 L/min-2 L/min] 1 L/min Pulse Rate: [79-124] 102 Temp (24hrs), Av.7 ??C, Min:36.4 ??C, Max:37.2 ??C Exam: AOx3. Full strength in BUE and BLE. Sensation grossly intact. Negative Pardo's and Babinski. Labs: Recent Labs 09/01/22 0423 WBC 4.7 HGB 8.0 L HCT 23.8 L PLT 107 L Recent Labs 08/31/22 1513 NA 132 L KBLOOD 4.2 GLUCOSE 99 Recent Labs 08/31/22 1340 PT 11.4 INR 1.0 APTT 25 #1 Stenosis Spinal #2 Spinal Stenosis Lumbar Region Without Neurogenic Claudication PLAN SBP <160 Upright lumbar Xray planned for tomorrow LSO brace when OOB Pain control: Tylenol 1g q6h PRN, Oxycodone 5/10 mg q4h PRN, hydromorphone 0.2 mg q2h PRN for breakthrough Ancef 2g q8h while drains in place Diet: Regular Maintain 2 subfascial drains PT/ OT Dispo: Floor AntiCoag AntiPlatelet Meds IP/OP Heparins Refills Start End heparin (porcine) injection 5,000 Units 09/02/2022 5,000 Units, subcutaneous, Every 8 hours scheduled heparin (porcine) injection 5,000 Units (Discontinued) 09/01/2022 08/31/2022 5,000 Units, subcutaneous, Every 8 hours scheduled --- Neurosurgery Chief C, [phone] * Lm Johnson, R.Ph. - 08/31/2022 8:18 PM CDT Pharmacist Progress Note Reason for admission: L3-S1 fusion 08/31/22 PMH: HTN, HLD, atrial fibrillation, GERD, gout, depression OBJECTIVE Home medications: Held: carvedilol, lisinopril, spironolactone, rivaroxaban Changed: pantoprazole for omeprazole Patient own medications: none Prophylaxis: none ASSESSMENT / PLAN CV: Hold home HTN meds s/t hypotension; hold rivaroxaban. Changes to medications anticipated at discharge: TBD Lm Johnson, R.Ph. * Tim Castanon, Pharm.D., R.Ph. - 08/31/2022 7:56 AM CDT Images from the original note were not included. Admission Medication History Note Adherence issues: No concerns Medication list source: Patient Medication related information: N/A Prior to Admission Medications Med List Status: Pharmacy Complete Set By: Tim Castanon, Pharm.D., R.Ph. at 08/31/2022 7:56 AM Taking? Last Dose Informant Start Date End Date LT acetaminophen (TYLENOL 8 HR) 650 mg ER tablet 08/31/2022 -- 05/24/21 -- Take 1,300 mg by mouth 3 (three) times a day. allopurinoL (ZYLOPRIM) 300 mg tablet 08/31/2022 -- 04/14/21 -- Take 150 mg by mouth daily. atorvastatin (LIPITOR) 20 mg tablet -- -- 04/25/22 -- Take 1 tablet by mouth daily. buPROPion XL (WELLBUTRIN XL) 150 mg 24 hr tablet 08/31/2022 -- 11/08/21 -- Take 150 mg by mouth daily. calcium carbonate 1,500 mg (600 mg calcium) tablet Past Week -- -- -- Take 1 tablet by mouth daily. Notes: Supplements on hold for 7 days carvediloL (COREG) 6.25 mg tablet 08/31/2022 -- 01/31/22 -- Take 6.25 mg by mouth 2 (two) times a day. cholecalciferol (VITAMIN D3) 25 mcg (1,000 Unit) capsule -- -- 05/10/21 -- Take 1,000 Units by mouth daily. cyanocobalamin (VITAMIN B12) 1,000 mcg/mL injection () -- -- 07/28/22 08/18/22 Inject 1,000 mcg intramuscularly once a week. ferrous sulfate 325 mg (65 mg iron) tablet Past Week -- -- -- Take 325 mg by mouth every other day. folic acid 1 mg tablet Past Week -- 05/24/21 -- Take 1 mg by mouth daily. gabapentin (NEURONTIN) 300 mg capsule -- -- 04/30/22 -- Take 300 mg by mouth 3 (three) times a day. lisinopriL (PRINIVIL,ZESTRIL) 2.5 mg tablet 08/30/2022 -- 04/25/22 -- Take 2.5 mg by mouth 2 (two) times a day. magnesium oxide (MAG-OX) 400 mg (241.3 mg magnesium) tablet 08/31/2022 -- -- -- Take 1 tablet by mouth daily. omeprazole (PriLOSEC) [address] capsule Past Week -- 04/25/22 -- Take 20 mg by mouth every morning before breakfast. rivaroxaban (XARELTO) 20 mg tablet 08/22/2022 -- 07/13/21 -- Take 20 mg by mouth daily. spironolactone (ALDACTONE) 25 mg tablet 08/30/2022 -- 03/21/22 -- Take 25 mg by mouth daily. triamcinolone (KENALOG) 0.1 % ointment -- -- 12/28/20 -- Apply topically as needed for irritation (bump on the back). documented in this encounter H&P Notes * Armani Jimenez M.D., Ph.D. - 08/31/2022 7:02 AM CDT INTERVAL HISTORY AND PHYSICAL PRE-PROCEDURE UPDATE H&P reviewed. The patient was examined and there are no significant changes to the H&P. Pre-op exam: AOx3. Full strength BLE and BUE but endorses slightly more difficulty raising left knee off bed vs right. No Hoffmans, no babinksi. Sensation symmetric bilaterally. Endorses some numbness and tingling in both feet with shooting pain down left lateral leg. Armani Jimenez M.D., Ph.D. Source Note - Belgica Croft APRN, C.N.P., D.N.P. - 08/22/2022 10:00 AM CDT REASON FOR VISIT: Preoperative Medical Evaluation REFERRING PHYSICIAN: Stu Hahn M.D. 08/31/2022: DECOMPRESSION POSTERIOR LUMBAR WITH FUSION; Frederick Zheng M.D. Surgery Specific Risk Classification: Elevated Risk SUBJECTIVE HISTORY OF PRESENT ILLNESS Gladys Zamarripa is a 72 y.o. female who is here for preanesthetic medical examination prior to the planned procedure as listed above. REVIEW OF SYSTEMS Skin: Positive for change in mole or skin spot. Gastrointestinal: Positive for difficulty swallowing. Genitourinary: Positive for urgency. Hematologic: Positive for bruises or bleeds easily. Musculoskeletal: Positive for pain or stiffness in the joints and back pain. The following systems were negative: Constitutional, Eyes, Respiratory, Cardiovascular, Neurological, Psychiatric Cardiac Risk Scoring: Avelar Cardiac Score: 0.39 RCRI Point Count: 1 RCRI Score: 0.9 DASI Calculations Flowsheet Row Comprehensive Visit from 08/22/2022 in [facility] in [place], [place] DASI Total Score 16.2 Estimated V02 Peak 16.57 Estimated MET Level 4.73 OBJECTIVE OBJECTIVE PHYSICAL EXAMINATION General/Constitutional Constitutional Assessment: Normal General State of Health: Healthy appearing Airway (HEENT) Decrease right lateral movement of the neck Mallampati: II TM Distance: >3 FB Neck ROM: Limited Mouth Opening: > 3 cm Upper Lip Bite Test: I Dental Assessment: Dentition intact Cardiovascular Tachycardia present heart rate of 106 beats per minute Rhythm: Regular Rate: Normal Cardiovascular Assessment: Normal Pulmonary Pulmonary Assessment: Clear and non labored Neurological Neurologic Assessment: Alert and oriented X 3 Musculoskeletal MSK Assessment: Normal Gait: Normal Ambulate with: Walker Psychiatric Psychiatric Assessment: Calm Dermatology Skin Assessment: dry and warm ASSESSMENT / PLAN Anesthesia: Patient denies previous anesthesia related complications. Airway Hx: 12/16/2020 mac Lab: T&S: yes ordered Lab Results Component Value Date WBC 4.4 08/22/2022 HGB 10.4 (L) 08/22/2022 HCT 31.0 (L) 08/22/2022 PLT 221 08/22/2022 Lab Results Component Value Date NA 138 07/21/2022 KSERUM 4.3 07/21/2022 CREATININE 0.67 07/21/2022 EGFRBLKAA >60 05/24/2021 EGFRNONBLKAA >60 05/24/2021 ECG: ECG 12 Lead Result Date: 08/22/2022 Sinus tachycardia Otherwise normal ECG No previous ECGs available Reviewed by KEVIN Jennings ECHO: 01/31/2022 CE: Recent echo showed preserved LVEF of 70% without RWMA or valvulopathy #1 Preanesthetic Medical Exam Pleasant 72 y.o. female scheduled for inpatient 08/31/2022: DECOMPRESSION POSTERIOR LUMBAR WITH FUSION; Frederick Zheng M.D. with Dr. Stu Hahn M.D. secondary to spinal stenosis. She reports sheis able to achieve greater than 4 Mets without cardiopulmonary symptoms. Patient was instructed to discontinue all [id number] vitamins and supplements, aspirin and NSAID containing products until after surgery is complete. If she needs anything for pain she was instructed to use Tylenol. #2 Stenosis Spinal For above procedure 08/31/2022. She reports bilateral foot neuropathy for which she takes gabapentin 3 times daily. She can continue the gabapentin uninterrupted. #3 Atrial Fibrillation Paroxysmal (HCC) #4 Atypical Atrial Flutter (HCC) Assessment & Plan: - found to be in afib on [...] Monday08/27/2022) -continue coreg twice daily without interruption #5 Cardiomegaly #6 Cardiomyopathy Stress Induced Assessment & Plan: Euvolemic on today's exam. Recent echocardiogram with an EF of 70%. Continue Coreg uninterrupted. Hold spironolactone 24 hours prior to her procedure. #7 Hypertension Essential Primary Assessment & Plan: Blood pressure controlled at today's visit. Treated with twice daily lisinopril. Hold lisinopril 24hours prior to procedure. #8 Depression Major Recurrent (HCC) Assessment & Plan: Continue Wellbutrin uninterrupted. #9 Hyperlipidemia Assessment & Plan: Continue Lipitor uninterrupted. #10 Anemia Assessment & Plan: H/H 07/21/2022 8.5/25.6 care provider. Primary care provider completed iron labs and she was not shown to be iron deficient. B12 was shown to be low and she was started on B12 injections. Orders: - Type and Screen (with reflex Antibody ID); Future; Expected date: 08/22/2022 (Before surgery) #11 Gastroesophageal Reflux Disease Without Esophagitis Assessment & Plan: Taking Prilosec. She discontinued the Prilosec approximately 1 month ago when her primary care provider told her that her B12 was low and that the Prilosec might be inhibiting the B12 absorption. Shereports that her acid reflux is well controlled without her medication. #12 Gout Assessment & Plan: Continue allopurinol uninterrupted PATIENT EDUCATION: Reviewed Checklist for Surgical Patients [id number] rev [id number]. Written and verbal instructions given on medication management before surgery. RECOMMENDATIONS: Patient medically optimized for planned procedure: No Further Recommendations: Anemia consult Caprini Total Score: 4 The patient is at moderate risk for postoperative DVT or PE. Mechanical AND chemoprophylaxis are recommended at the time of procedure and during postoperative hospitalization, unless there are contraindications or risk of bleeding outweighs benefits of chemoprophylaxis. documented in this encounter Consult Notes * Amaris Pride P.T., D.P.T. - 09/01/2022 2:40 PM CDT Physical Therapy Inpatient Evaluation/Treatment SUBJECTIVE Patient's Name: Gladys BenitesHomero Marilou Referring/Attending Provider: Frederick Zheng M.D. Medical Diagnosis: Stenosis Spinal [M48.00] Spinal Stenosis Lumbar Region Without Neurogenic Claudication [M48.061] Reason for Referral: PT Evaluate and Treat PT evaluate and treat; ortho Onset Date: 08/31/22 Payor: MEDICARE / Plan: MEDICARE A AND B / Product Type: Medicare / PERTINENT MEDICAL / SURGICAL HISTORY: Patient Active Problem List Diagnosis Stenosis Spinal Atrial Fibrillation Paroxysmal (HCC) Atypical Atrial Flutter (HCC) Cardiomegaly Cardiomyopathy Stress Induced Depression Major Recurrent (HCC) Hyperlipidemia Hypertension Essential Primary PreDiabetes Gastroesophageal Reflux Disease Without Esophagitis Anemia Gout Anemia Of Chronic Disease Spinal Stenosis Lumbar Region Without Neurogenic Claudication Past Surgical History: Procedure Laterality Date APPENDECTOMY BREAST SURGERY 1996 BUNIONECTOMY both feet SECTION 1979&1982 DECOMPRESSION POSTERIOR LUMBAR AND FUSION N/A 08/31/2022 Procedure: L3-S1 Fusion, TLIF at L3/4, L4/5.; Surgeon: Frederick Zheng M.D.; Location: [facility] OR History of Present Illness: Patient is a pleasant 72-year-old female postop day 1 following L3-S1 Fusion, TLIF at L3/4, L4/[address] 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 Reports ambulating at times without a gait aid, although will use four-wheeled walker and walking stick depending on the day. Gait Devices/Wheelchair Used: Front wheeled walker, Other (Comment) (walking stick) Home Equipment Home Adaptive Equipment: [employer] Gait Devices Owned: Front-wheeled walker, Four-wheeled walker, Other (Comment) (walking stick) Other DME Equipment : Other (Comment) (adjustable bed) Bathroom Equipment: Hand-held shower head, Shower chair without back Home Living Type of Home: House Home Layout: Able to live on main level with bedroom/bathroom, Laundry main level, Full bath main level, Bedroom on main level, Shower in basement Home Layout Comments: Can live on main level- walk in shower in basement. Home Access: Level entry, Stairs to alternate level with rails Alternate Level Stairs: Rails: Right (down) Alternate Level Stairs: Number of Steps: 15 Bathroom Shower/Tub: Tub/shower unit, Walk-in shower Tub/shower unit location: Main floor Tub/shower unit enclosure type: Curtain Walk-in shower location: Basement/lower level Walk-in shower enclosure type: Sliding/glass door Bathroom Toilet: Standard (square sink next to toilet; tub/shower also next to toilet) Bathroom Accessibility: Yes How Accessible: Accessible via walker Home Living Comments: Spouse is retired and capable to assist Family/Caregiver Present: No Patient/Caregiver Goals: To return to her prior level of function. Patient Comments: Patient awake in recliner upon arrival, OT conducting evaluation. Patient agreeable to PT joining session. Precautions Other Precautions: spinal; LSO when out of bed; fall Fall Risk (65 and older) Fall in the last 12 months: Yes Did you have an injury with the fall?: No Are you fearful of falling?: No Fall Risk Comments: Patient endorses 6 falls in the last year. Her most recent fall was approximately 3 weeks ago, and patient does not know the mechanism of the fall (She reports her knees didn't buckle and she did not lose balance) OBJECTIVE Vitals taken during session: Sitting: Pulse rate: 115 bpm, Blood pressure: 96/69 mmHg, MAP: 75, O2 sats: 98%, and O2 flow: Room air Standing: Blood pressure: 76/54 mmHg, MAP: 59 Sitting with legs elevated: Blood pressure: 105/74 mmHg, MAP: 81 Nursing notified. Time and care taken to optimize the patient's environment to promote safety and success throughout the session. Lines and tubes maintained appropriately. Cognition Arousal/Alertness: Appropriate responses to stimuli Attention: Addressed, no concerns noted Initiation: No difficulty with initiation Vision/Sensation Basic Assessment Light Touch: No deficits Sensation/Perception Expanded Assessment Paresthesia Comments: Patient reports neuropathy in her feet, however did not appear to have deficits to light touch. General ROM / Strength Screening Strength - Upper Extremity Screen: Addressed, no concerns noted Strength - Lower Extremity Screen: Impaired right & left Strength - Lower Extremity Screen Comments: Generalized weakness Sit to Stand Transfers # of Assistants: 1 Transfer Surface: Chair Transfer Equipment: Gait belt, Front wheeled walker Level of Assistance: Contact guard assistance, Supervision/set-up Assessment/Delivery: Assessed, Instructed, Facilitated Comments: Verbal cues provided for safe hand placement. No physical assistance needed. Stand to Sit Transfers # of Assistants: 1 Transfer Surface: Chair Transfer Equipment: Gait belt, Front wheeled walker Level of Assistance: Supervision/set-up Assessment/Delivery: Assessed, Facilitated, Instructed Comments: Instructed patient in hand placement, good controlled descent observed. Other Transfers Comments: Further transfers deferred at time of evaluation/treatment due to orthostasis. Balance Static Sitting-Balance: Good (Maintains balance without support) Dynamic Sitting-Balance: Good (Maintains balance without support) Static Standing-Balance: Fair (Maintains balance with handheld/contact guard assistance) Balance Comments: Patient's knees appeared to shake in standing. Seated Exercises Seated Exercise - Side Addressed: Bilateral Sitting Surface: Chair Seated Exercise: Ankle pumps, More Seated Exercises (Glute sets, quad sets.) Exercise Mode: Active motion against gravity Sets/Repetitions: 1/10 Seated Exercise Comments: Patient educated on lower extremity strengthening exercises including ankle pumps, glute sets, and quad sets. Reminder written on patient's white communication board. Activity Tolerance Endurance: Tolerates less than 10 min of activity Standing Tolerance: Limited due to orthostatic hypotension. Patient/Caregiver Education Completed this Session: Role of PT in acute care PT POC Safe Transfer/Mobility Techniques Exercise Instruction Discharge Planning Spinal Precautions Physiology of orthostatic hypotension Assistive device use LSO use Activity pacing techniques, Energy Conservation principles Co-treatment with: Occupational Therapy Patient's nurse was contacted and patient's status was discussed, Discussed patient's care with OT Patient was left in bedside chair with feet up at end of session with call light in reach, all needs met and questions answered. Outcome Measures [facility] Inpatient Short Form: -[facility] Basic Mobility (V.2) How much help [...] Climbing 3-5 steps with a railing?: A Lot [facility] Basic Mobility (V.2) Raw Score: 17 [facility] Basic Mobility (V.2) Standardized Score: 39.67 Interpretation: Clinicians answer the [facility] Inpatient Short Form based on observed patient activity and/or clinical judgement (ie. patient can be scored without physically performing each activity) Based on scoring guidelines using the raw score value: Those going to home had an average score at or above 18 Those going to facility had an average score at or below 17 Assessment Discharge Therapy Needs - PT: No further skilled therapy (Pending course of hospitalization) Skilled therapy can include physical therapy provided by home health, outpatient clinic, or a post-acute facility. The location of these services is determined by the patient's care team in partnership with patient/family. Level of Care Needed - PT: Assistance with walking and moving around the home, Assistance with bed mobility, Assistance with stairs Equipment Recommended - PT: Front-wheeled walker Patient owns Barriers to Discharge Home: Current functional status, Fall risk Barriers to Discharge Comments: Patient limited due to orthostatic hypotension. Clinical Impression of today's session: Currently, patient presents with impairments including increased incisional pain, decreased truncalrange of motion, generalized weakness, decreased balance, and decreased endurance resulting in the following functional deficits: Sit<>stand, ambulation, stair negotiation, transfers, reaching,and bed mobility. Overall the patient tolerated today's session poorly. She did not formally rank her pain this session, and vitals fluctuated as outlined above. She was able to perform Sit<> stand transfer with grossly contact guard assistance, however further mobility was deferred due to orthostatic hypotension. Patient educated extensively on various topics as outlined above. She was also educated on simple seated exercises for the lower extremities. PT recommending assist x 1 and front wheeled walker for transfers with nursing, suggesting close monitoring of blood pressure. Plan next session to initiate ambulation with front wheeled walker as able. The patient is not at functional baseline and will continue to benefit from skilled therapy intervention to restore and maximize function, maximize safety, optimize mobility, teach and educate familyand/or caregivers, and facilitate return to prior level of function. Rehab potential: Ms. Zamarripa has Good potential to achieve established physical therapy goals within the time frame outlined below. Progress: Progressing toward goals Tiered PT Evaluation Codes: Comorbid Conditions: Other (Comment) (See medical records) Personal Factors: Needs assistive device, History of falls, Age Examination elements: 3 Clinical Presentation: Evolving Clinical Decision Making: Moderate complexity clinical decision making Functional Goals: PT Inpatient Goals PT Goal #1: Patient will demonstrate bed mobility with modified independence per her home set up promote independence within their home. PT Goal #1 Status: Ongoing PT Goal #2: Patient will demonstrate all transfers with modified independence and least restrictiveassistive device to promote independence within their home. PT Goal #2 Status: Progressing PT Goal #3: Patient will ambulate 30m with least restricted assisted device and modified independence to promote independence within their home. PT Goal #3 Status: Ongoing PT Goal #4: Patient will demonstrate understanding of lower extremity home exercise program to promote functional strength and mobility upon discharge. PT Goal #4 Status: Progressing Plan Patient agrees with the plan of care and goals. Treatment Plan: Plan: Plan of care initiated PT Amount: 1 visit per day PT Frequency: 5 times per week PT Inpatient Duration : Until goals are met or hospital discharge Requires Inpatient Follow-Up: Yes PT - Next Inpatient Appointment: 09/02/22 PT Plan Comments: Assess bed mobility (patient has adjustable bed at home), progress independence with transfers, initiate ambulation with front wheeled walker. Trial stair negotiation if patient desires. Treatment interventions may include: Treatment/Interventions: Therapeutic exercise, Therapeutic functional activity, Neuromuscular re-education, Gait training, Self-care/home management Billing: Time Spent with Patient Evaluations PT Eval - Mod Complexity: 10 min Therapeutic Interventions Therapeutic Activity (min): 11 min Therapeutic Exercise (min): 5 min Time Tracking Total Timed Units (min): 16 min Total Treatment Time (min): 26 min Amaris Pride P.T., D.P.T. * Debbie Person O.T. - 09/01/2022 2:12 PM CDT Occupational Therapy Acute Hospital Inpatient Evaluation/Treatment SUBJECTIVE Patient's Name: Gladys Zamarripa Referring/Attending Provider: Frederick Zheng M.D. Medical Diagnosis: Stenosis Spinal [M48.00] Spinal Stenosis Lumbar Region Without Neurogenic Claudication [M48.061] Reason for Referral: Occupational Therapy Evaluation and Treatment PERTINENT MEDICAL / SURGICAL HISTORY: has a past medical history of Anxiety Generalized Disorder (02-03-2021), Atrial Fibrillation Unspecified (06-05-2016), Depressive Disorder (02-03-2021), Hyperlipidemia, Hypertension NOS (2001), MelanomaSkin (HCC) (03-05-2021), Osteopenia (06-05-2015), and Skin Cancer (Primary) NOS (11-04-2019). has a past surgical history that includes Breast surgery (1996); section (1979&1982); Bunionectomy; Appendectomy; and Decompression Posterior Lumbar and Fusion (N/A, 08/31/2022). History of Present Illness: Gladys Zamarripa is a 72 y.o. female who was admitted to [facility] in [place] on 08/31/2022 for Stenosis Spinal [M48.00] Spinal Stenosis Lumbar Region Without Neurogenic Claudication [M48.061]. Have you had a fall in the last year: Yes. Injury with fall? No, nothing notable. Reports half a dozen falls in the last year, recent fall was three weeks ago. Fear of falling: Not as much as when balance was bad, PT helped with this. 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 Reports ambulating at times without a gait aid, although will use four-wheeled walker and walking stick depending on the day. Gait Devices/Wheelchair Used: Front wheeled walker, Other (Comment) (walking stick) Home Living Type of Home: House Home Layout: Able to live on main level with bedroom/bathroom, Laundry main level, Full bath main level, Bedroom on main level, Shower in basement Home Layout Comments: Can live on main level- walk in shower in basement. Home Access: Level entry, Stairs to alternate level with rails Alternate Level Stairs: Rails: Right (down) Alternate Level Stairs: Number of Steps: 15 Bathroom Shower/Tub: Tub/shower unit, Walk-in shower Tub/shower unit location: Main floor Tub/shower unit enclosure type: Curtain Walk-in shower location: Basement/lower level Walk-in shower enclosure type: Sliding/glass door Bathroom Toilet: Standard (square sink next to toilet; tub/shower also next to toilet) Bathroom Accessibility: Yes How Accessible: Accessible via walker Home Living Comments: Spouse is retired and capable to assist Home Equipment Home Adaptive Equipment: [employer] Gait Devices Owned: Front-wheeled walker, Four-wheeled walker, Other (Comment) (walking stick) Other DME Equipment : Other (Comment) (adjustable bed) Bathroom Equipment: Hand-held shower head, Shower chair without back Patient/Caregiver Goals: to discharge home and return to highest level of function Pain Assessment: Pain not reported during session. Subjective Comments: Patient agreeable to OT evaluation and treatment. Patient asks how OT is different than PT. Patient reports getting whoozy and clammy when mobilizing to the bathroom with nurses. OBJECTIVE Vital Signs Vitals taken during session: Sitting: Pulse rate: 115 bpm, Blood pressure: 96/69 mmHg, MAP: 75, O2 sats: 98%, and O2 flow: Room air Standing: Blood pressure: 76/54 mmHg, MAP: 59 Sitting with legs elevated: Blood pressure: 105/74 mmHg, MAP: 81 Nursing was alerted, communication written on white board. Patient instructed in ankle pumps, fluidintake. Assessment: Strength: BUE functional although not formally tested due to spine surgery Range of Motion:Assessed, no impairments Balance: Static Sitting: Good (maintains balance without support) Dynamic Sitting: Good (maintains balance without support) Static Standing: Good (maintains balance without support) Activity Tolerance:Endurance:Tolerates 10-20 minutes of activity Sensation/Perception: No Impairments Cognition Cognitive assessment method: Therapist observations Arousal/Alertness: Appropriate responses to stimuli Attention: Addressed, no concerns noted Initiation: No difficulty with initiation Orientation: Oriented X4 Following Commands: Follows all commands/directions without difficulty Memory: Addressed, no concerns noted Problem Solving: Addressed, no concerns noted Safety/Judgment: Addressed, no concerns noted Cognition Comments: No deficits observed on evaluation, apperas to have good insight and judgement.Able to teachback spinal precautions. Treatment consisted of: Sit to Stand Transfers # of Assistants: 1 Transfer Surface: Chair Transfer Equipment: Gait belt, Front wheeled walker Level of Assistance: Contact guard assistance, Supervision/set-up Assessment/Delivery: Assessed, Instructed, Facilitated Comments: Instructed patient in hand placement, no physical assistance required. Stand to Sit Transfers # of Assistants: 1 Transfer Surface: Chair Transfer Equipment: Gait belt, Front wheeled walker Level of Assistance: Supervision/set-up Assessment/Delivery: Assessed, Facilitated, Instructed Comments: Instructed patient in hand placement, good controlled descent observed. Other Transfers Comments: Further transfers deferred at time of evaluation/treatment due to orthostasis. Feeding Feeding Location: Chair Feeding Level of Assistance: Independent UE Dressing UE Dressing Delivery: Educated UE Dressing Items Included: Orthotic (LSO) UE Dressing Comments: Educated patient on lumbar orthotic wear and indications for use. Educated onskin checks and wearing a barrier between skin and brace. LE Dressing LE Dressing Location: Chair LE Dressing Delivery: Assessed, Educated LE Dressing Adaptive Equipment: [employer] LE Dressing Items Included: Socks LE Dressing Level of Assistance: Supervision/Set-up, Modified independent LE Dressing Comments: Facilitated patient donning/doffing hospital socks in bedside chair, she demonstrates ability to complete figure four positioning with good posture while sitting unsupported. She reports ordering a pen or pencil assembly machine operator already. Educated on completing all dressing tasks seated to mitigate fall risk. Toileting Toileting Delivery: Educated Toileting Comments: Educated patient on toileting transfers and using bedside commode if orthostasis persists. Adaptive Interventions Adaptive Intervention/Education: Patient was educated on spinal precautions (no bending, twisting or lifting more that 10 lbs.) and how to apply those precautions to activities of daily living and functional transfers. ADL Comments ADL Comments: Educated patient on the role of occupational therapy in the acute care setting. Initiated collaborative discussion with patient regarding previous supports and participation in activities of daily living. Collaborated with patient regarding therapy expectations in regards to mobility and ongoing plan of care. Team Communication:The patient's status was discussed and the following coordination of care occurred with the: RN PT Co-treat with Physical Therapy Patient benefitted from having 2 skilled therapists present in order to optimize mobility progression+safety with mobility. OT/PT addressed different goals within treatment session. Billable time shared or divided based upon skilled needs of patient. Patient Disposition at the end of Treatment: Patient was left in bedside chair at end of session with call light in reach, all needs met and questions answered. Outcome Measures [facility] Inpatient Short Form: Putting on and taking off regular lower body clothing?: None Putting on and taking off regular upper body clothing?: A Little Taking care of personal grooming such as brushing teeth?: None Bathing (including washing, rinsing, drying)?: A Little Toileting, which includes using toilet, bedpan, or urinal?: A Little Eating meals?: None Daily Activities Raw Score (max 24): 21 Daily Activities Standardized Score: 44.27 Interpretation: Clinicians answer the [facility] Inpatient Short Form based on observed patient activity and/or clinical judgement (ie. patient can be scored without physically performing each activity) Based on scoring guidelines using the raw score value: Those going to home had an average score at or above 18 Those going to facility had an average score at or below 17 Assessment Clinical Impression: Clinical Assessment in regard to today's therapy session: Patient presents to skilled OT following spinal surgery. LSO was delivered from [facility], she is able to verbalize understanding of spinal protection principles and overall demonstrates good insight into her current functional deficits.Today, mobility progression was limited by orthostasis- nursing alerted. Plan to progress functional mobility and self-care independence in future session. She reports she will have assistance at discharge from her spouse. Therapy Recommendations Level of Assistance Required Today ADLs - Minimal IADLs - Maximal due to spinal precautions- spouse is able to assist at d/c. Edge of Bed - Supervision- with use of log roll technique Transfers - contact guard assistance to Minimal A with Front Wheeled Walker- monitor vitals Level of Care Needed - OT: Assistance with toileting, Assistance with toilet/shower transfers, Assistance with meal preparation, Assistance with showering/bathing, Assistance with shopping, Assistance with housekeeping, Assistance with transportation, Physical assistance needed Discharge Therapy Needs - OT: No further skilled therapy (anticipate following progression in [facility] setting) Skilled therapy can include occupational therapy provided by home health, outpatient clinic, or a post-acute facility. The location of these services is determined by the patient's care team in partnership with patient/family. Barriers to Discharge Home: Current functional status Rehab potential: Ms. Zamarripa has excellent potential to achieve established occupational therapy goals within the time frame outlined below. Functional Goals: OT Goal #1: Patient will demonstrate full body dressing modified including item retrieval with modified independence, using adaptive equipment or extra time, as necessary, to increase independence atdischarge. OT Goal #1 Status: Progressing OT Goal #2: Patient will demonstrate all aspects of toileting (transfer, hygiene and clothing management) with modified independence by discharge in order to maximize functional independence and decrease caregiver assistance. OT Goal #2 Status: Slowly progressing OT Goal #3: Patient will verbalize and demonstrate an understanding of spine precautions by discharge in order to be able to return to prior level of function. OT Goal #3 Status: Progressing Progress: Slow progress, medical status limitations (orthostasis) Plan Occupational Therapy Attestation Statement: Patient agrees with the plan of care and goals. OT Frequency: OT Amount: 1 visit per day OT Frequency: 5 times per week OT Inpatient Duration : Until goals are met or hospital discharge Requires Inpatient OT Follow-Up: Yes OT - Next Inpatient Appointment: 09/02/22 Plan: Plan of care initiated OT Plan Comments: Next session: monitor vitals 1) progress mobility to the bathroom 2) standing grooming 3) back handout 4) total body dressing with item retrieval/dynamic household task Treatment interventions may include: Treatment Interventions: Therapeutic exercise, Therapeutic functional activity, Self-care/home management Billing: Tiered OT Evaluation Codes: Personal Factors: Needs assistive device Occupational Profile and History review: Expanded Performance Deficits: 3 - 5 performance deficits Evaluation Complexity: Moderate Time Spent with Patient Evaluations OT Eval - Mod Complexity: 19 min Therapeutic Interventions Home Management Training (min): 12 min Time Tracking Total Timed Units (min): 12 min Total Treatment Time (min): 31 min Debbie Person O.T. documented in this encounter Nursing Notes * Terrie Pleitez R.N. - 09/04/2022 2:52 PM CDT Shift Goals: Clinical Goals for the Shift: pt will report adequate pain control during shift Identify possible barriers to meeting goals/advancing plan of care: None End of Shift Summary: Discharge education complete with patient & family at bedside. No furtherquestions at this time. VSS and neurologically stable for discharge. PIV removed. Medications sent to [facility] and will be picked up by patient/family. Walker sent with patient.Transportcalled and patient left unit via wheelchair. Electronically signed by: Terrie Pleitez R.N. 09/04/22 2:54 PM CDT Problem: SAFETY ADULT Goal: Maintain a safe environment Outcome: Adequate for Discharge Problem: SAFETY ADULT - RISK FOR FALL AND OR FALL INJURY Goal: Patient remains free from fall/fall injury Outcome: Adequate for Discharge Problem: PAIN - ADULT Goal: PT VERBALIZES/DEMONSTRATES ADEQUATE COMFORT LEVEL OR BASELINE Outcome: Adequate for Discharge Problem: KNOWLEDGE DEFICIT Goal: Patient/family/caregiver demonstrates understanding of disease process, treatment plan, medications, and discharge instructions Outcome: Adequate for Discharge Problem: INFECTION - ADULT Goal: Absence of infection during hospitalization Outcome: Adequate for Discharge Problem: SKIN/TISSUE INTEGRITY Goal: Skin/Tissue integrity maintained or improved Outcome: Adequate for Discharge Goal: Oral and Nasal mucous membranes remain intact Outcome: Adequate for Discharge Problem: DISCHARGE PLANNING Goal: Patient discharge needs identified Outcome: Adequate for Discharge Problem: POTENTIAL OR ACTUAL PRESSURE INJURY-ADULT Goal: Manage sensory Perception deficits to maintain and/or improve skin integrity Outcome: Adequate for Discharge Goal: Maintain optimal skin moisture to ensure or improve skin integrity Outcome: Adequate for Discharge Goal: Achieve optimal activity and/or mobility to maintain or improve skin integrity Outcome: Adequate for Discharge Goal: Nutrient intake appropriate for improving, restoring or maintaining skin integrity Outcome: Adequate for Discharge Goal: Minimize friction and/or shear to maintain or improve skin integrity Outcome: Adequate for Discharge Problem: Compromised Skin Integrity Goal: Skin/Tissue integrity maintained or improved Outcome: Adequate for Discharge Goal: Oral and Nasal mucous membranes remain intact Outcome: Adequate for Discharge Goal: Incisions, wounds, or drain sites healing without S/S of infection Outcome: Adequate for Discharge Problem: Incontinence and/or Moisture Goal: Skin integrity is maintained or improved Outcome: Adequate for Discharge * Cindy Vicente R.N. - 09/02/2022 9:36 PM CDT End of Shift Summary: Patient has remained vitally stable throughout shift. Neuro exam stable and unchanged. Pain well managed with PO medication regimen. Tolerating solid and liquid intake without issue. Voiding spontaneously. Last BM 09/02 Ambulating with 1 assist, GB, walker. Stable at this time. Cindy Vicente R.N. documented in this encounter OR Notes * Op Note - Stu Hahn M.D. - 08/31/2022 9:35 AM CDT Pre-op Diagnosis Stenosis Spinal Post-op Diagnosis Stenosis Spinal A international first officer actively participated and was necessary for one or more of the following: opening, exposure and visualization during the case, maintaining hemostasis, wound closure resulting in itssafe and expeditious completion. Findings As expected. This case was substantially more difficult than usual because of significant effort and difficulty mobilizing and identifying anatomical structures due to altered surgical field secondary to distorted anatomy. Complications None Operative Note Narrative Procedure(s) Performed: 1. Decompressive laminectomy L3-L5. 2. Harvesting local autograft through the same incision 3. Posterior instrumentation L3 to S1 4. Transforaminal lumbar interbody fusion L3-4 and L4-5 with local autograft. 5. Application of biomechanical intervertebral device with Medtronic Arctic L cage at L3-4 and L4-5with 10 degrees of lordosis. 6. Use of bone morphogenic protein. 7. Use of femoral head allograft After the induction of general anesthesia, we established neurophysiologic baselines and carefully positioned the patient prone on the Domo operative table with all pressure points padded. We completed a standard prep and drape and preprocedural pause and then opened a midline incision, exposingthe posterior elements of L3 to S2, carefully preserving the junctional ligaments and facet capsules. An intraoperative x-ray confirmed the levels, and a spine pause was completed. We then obtained a [employer] Molecular O-arm spin computed tomography scan intraoperatively, and registered the [employer] navigation system. We then placed the screws as guided by the navigation systemin L3, L4, L5 bilateral pedicles, tricortical fixation at the S1 ala bilaterally. A check spin was p erformed with the Neu[employer] Molecular O-arm. This demonstrated satisfactory positioning of instrumentation. We then turned our attention to the laminectomy decompression. Using the raudel dmitri and NeuMoDx MolecularRex high speed drill, troughs were cut along the lateral aspect of the lamina at L3-5. Using a series of rongeurs, the spinous process and lamina were removed at L3-5. The yellow ligament was then removed using Kerrison Rongeurs, and the nerves were completely free. This was extended on the right at L3-4 and left at L4-5 to a complete facetectomy in order to accomplish the transforaminal interbody fusion window. Being satisfied with this and notably we collected this bone for local autograft which was cleaned of soft tissue and morselized, we then turned our attention to the transforaminal int erbody fusion. Beginning with L4-5, we applied distraction to the screws and maximally opened up the disk space using a series of instruments and prepared the disc space extensively to ensure the endplates were free of soft tissue and slightly decorticated. We determined the appropriate height spacer and then added local autograft anteriorly as well as put in the cage and tamped the cage into place. We then repeated this for L3-4. Being satisfied with this, we removed the distraction on the screws, and placedappropriated curved rods and set caps in the screw heads. We then final tightened all the set plugs. Following this we irrigated with betadine soak for 3 minutes. We then irrigated with ancef solution. We then supplemented our interbody cage with local autograft all around this for arthrodesis. Intraoperative fluoroscopy were obtained which were satisfactory. We then decorticated the contralateral facets and the transverse processes and added further bone graft to this including allograft. The wound was then closed in layers using Vicryl sutures over vancomycin powder as well as 2 flat SABIHA drains. An absorbable Quill suture was used for the skin. Stu Hahn M.D. Cosigned by Frederick Zheng M.D. at 09/01/2022 2:01 PM CDT * Brief Op Note - Armani Jimenez M.D., Ph.D. - 08/31/2022 9:35 AM CDT Pre-op Diagnosis Stenosis Spinal Post-op Diagnosis Stenosis Spinal Findings As expected. Complications None Incision closed with running quill, steri strips, and primipore bandage. Two subfascial drains to bulb suction. LSO brace for postop Armani Jimenez M.D., Ph.D. documented in this encounter Miscellaneous Notes * Documentation Clarification - Armani Jimenez M.D., Ph.D. - 09/04/2022 3:08 PM CDT PROVIDER RESPONSE TEXT: To clarify, the appropriate diagnosis supported by the clinical indicators: Hyponatremia <LCI> QUERY TEXT: DOCUMENTATION CLARIFICATION REQUEST Please clarify/specify the appropriate diagnosis supported in the clinical indicators below. Hyponatremia Other (explain) Clinically unable to determine (explain) Clinical Indicators/Risk Factors/Treatment: *Risk Factors: 72 year old female with lumbar spinal stenosis admitted 08/31 and s/p L3-S1 fusion with TLIF at L3/4 and L4/5 *Labs (sodium): -08/31: 130, 132 mmol/L -09/01: 130 mmol/L -09/02: 131 mmol/L *Your 09/03 LALY PN: Recent Labs: Na 131 L (09/02); 130 L (09/02); 132 L (08/31) Please contact me if you have questions. Thank you, Kinsey Joe R.N., [facility] Clinical Documentation Usability Specialist Query created by: Kinsey Joe R.N., [facility] 09/05/2022 07:31 AM CDT </LCI> * Documentation Clarification - Calvin Escalera M.D., Ph.D. - 09/04/2022 3:08 PM CDT PROVIDER RESPONSE TEXT: To clarify, the appropriate diagnosis supported by the clinical indicators: Acute Blood Loss Anemia <LCI> QUERY TEXT: DOCUMENTATION CLARIFICATION REQUEST Please clarify/specify the appropriate diagnosis supported in the clinical indicators below. Acute Blood Loss Anemia Other (explain) Clinically unable to determine (explain) Clinical Indicators/Risk Factors/Treatment: *Risk Factors: 72 year old female with anemia (08/31 Interval H&P, Barbara) and lumbar spinal stenosis admitted 08/31 and s/p L3-S1 fusion with TLIF at L3/4 and L4/5 *Labs (hemoglobin): -08/22: 10.4 g/dL -08/31: 7.2, 8.0, 7.7, 8.2 g/dL -09/01: 8.0 g/dL -09/02: 9.1 g/dL -09/04: 8.0 g/dL *08/31 LALY Op Note: Estimated Blood Loss 1550 mL *09/01 LALY PN (Jovani): Drain output: 375 cc over the past 24 hours, 295 cc over the prior 12 hours. Her hemoglobin was 8.0. The patient will be transfused to a hemoglobin goal of greater than 8. *09/01 LALY PN (Barbara): Drain output 525 cc total/ 24h (205 cc overnight). Recent Labs: Hgb 8.0 L 09/01 *Your 09/04 LALY PN: Hgb 8.0 L (09/04); Transfuse pRBC 1U 09/04 Please contact me if you have questions. Thank you, Kisney Joe R.N., [facility] Clinical Documentation Usability Specialist Query created by: Kinsey Joe R.N., [facility] 09/05/2022 07:27 AM CDT </LCI> * Hospital Course - Armani Jimenez M.D., Ph.D. - 09/02/2022 5:23 PM CDT On the day of admission, Gladys Zamarripa was taken to the operative room by Dr. Chief Quintanilla for the procedure listed above. The intraoperative as well as the immediate postoperative course were uncomplicated. She was transferred from the PACU to the general neurosurgical floor. She did well overnight. Post-operative x-rays were obtained to serve as a baseline against which future imaging would be compared; spinal instrumentation appeared intact without evidence of hardware failure or malpositioning. Occupational therapy and physical therapy were consulted for assistance with mobilization and physical therapy; the physical medicine and rehabilitation team was consulted to determine candidacy for inpatient rehabilitation. She had an overall uneventful recovery, with improvement in preoperative exam. She remained at her neurologic baseline. After meeting dismissal criteria and at the recommendations of PT/OT, she was discharged home. Clear return precautions were provided, and specific dismissal instructions were reviewed. All appropriate follow-up appointments and/or imaging were scheduled. documented in this encounter Plan of Treatment Upcoming Encounters Date Type Department Care Team (Latest Contact Info) Description 05/29/2024 12:15 PM OUTREACH DIRECTOR Clinical Communication Virtual Review in [place], [place] [address] [place] [phone] 05/31/2024 11:00 AM OUTREACH DIRECTOR Appointment Department of Laboratory Medicine and Pathology, [facility], in [place], [place] [address] [place] [phone] Patricia Parker APRN, C.N.P., D.N.P. [address] [place] [phone] 05/31/2024 2:00 PM OUTREACH DIRECTOR Comprehensive Visit Preoperative Evaluation Center in [place], [place] [address] [place] [phone] Arianna Jeffries M.D. [address] [place] [phone] 05/31/2024 2:45 PM OUTREACH DIRECTOR Comprehensive Visit Preoperative Evaluation Center in [place], [place] [address] [place] [phone] Chris Moreno, JOHNSON, C.N.P., M.S. [address] [place] [phone] 06/03/2024 8:15 AM OUTREACH DIRECTOR Hospital Encounter Post Anesthesia Care Unit in [place] [id number] [place] [phone] Tahir Moore M.D. [address] [place] [phone] 06/03/2024 8:15 AM OUTREACH DIRECTOR - 06/03/2024 2:12 PM OUTREACH DIRECTOR Surgery [facility] OR [address] [place] [phone] Tahir Moore M.D. [address] [place] [phone] C1-2 fusion 07/02/2024 11:00 AM OUTREACH DIRECTOR Procedure visit Division of Pain Medicine in [employer], [place] [address] [place] [phone] Adam Barlow M.D. [address] [place] [phone] Pending Results Name Type Priority Associated Diagnoses Date /Time Prepare Red Blood Cells, 1 Units Blood Bank STAT 08/22/2022 11:18 AM CDT Prepare Red Blood Cells, 1 Units Blood Bank STAT 08/22/2022 11:18 AM CDT Prepare Pooled Cryoprecipitate Blood Bank Routine 09/01/2022 2:30 AM CDT Prepare Platelets : 1 Units Blood Bank STAT 09/01/2022 2:30 AM CDT Prepare Red Blood Cells, 1 Units Blood Bank STAT 08/22/2022 11:18 AM CDT Prepare Red Blood Cells, 1 Units Blood Bank Routine 08/22/2022 11:18 AM CDT Prepare Red Blood Cells, 1 Units Blood Bank Routine 09/04/2022 9:10 AM CDT Scheduled Procedures Name Priority Associated Diagnoses Date/Ti me 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 06/03/2024 8:15 AM OUTREACH DIRECTOR documented as of this encounter Procedures Procedure Name Priority Date/Time Associated Diagnosis Comments TRANSFUSE RED BLOOD CELLS Routine 09/04/2022 11:17 AM CDT PREPARE RED BLOOD CELLS Routine 09/04/2022 9:10 AM CDT TYPE AND SCREEN STAT 09/04/2022 9:10 AM CDT CBC WITHOUT DIFFERENTIAL, B Routine 09/04/2022 4:28 AM CDT SODIUM, S/P Timed 09/02/2022 2:09 PM CDT DX LUMBAR SPINE 2-3 VIEWS RAD - Timed (for specific dates/times) 09/02/2022 1:20 PM CDT CBC WITHOUT DIFFERENTIAL, B Routine 09/02/2022 4:53 AM CDT BASIC METABOLIC PANEL, S/P Routine 09/02/2022 4:53 AM CDT TRANSFUSE RED BLOOD CELLS Routine 09/01/2022 3:33 PM CDT CALCIUM, IONIZED, S/B Timed 09/01/2022 1:33 PM CDT CBC WITH DIFFERENTIAL, B Routine 09/01/2022 4:23 AM CDT BASIC METABOLIC PANEL, S/P Routine 09/01/2022 4:23 AM CDT PREPARE PLATELETS STAT 09/01/2022 2:3 0 AM CDT PREPARE CRYOPRECIPITATE Routine 09/01/2022 2:30 AM CDT HEMOGLOBIN, B STAT 08/31/2022 8:12 PM CDT FL OARM RAD - Routine (most inpatients and all outpatients) 08/31/2022 6:12 PM CDT FL FLUORO LESS THAN 1 HOUR RAD - Routine (most inpatients and all outpatients) 08/31/2022 3:48 PM CDT PATIENT STATUS STAT 08/31/2022 3:13 PM CDT SODIUM, B STAT 08/31/2022 3:13 PM CDT ABG W/COOX STAT 08/31/2022 3:13 PM CDT POTASSIUM, B STAT 08/31/2022 3:13 PM CDT GLUCOSE, WHOLE BLOOD STAT 08/31/2022 3:13 PM CDT CALCIUM, IONIZED, S/B STAT 08/31/2022 3:13 PM CDT TRANSFUSE RED BLOOD CELLS Routine 08/31/2022 2:29 PM CDT PATIENT STATUS STAT 08/31/2022 1:41 PM CDT SODIUM, B STAT 08/31/2022 1:41 PM CDT ABG W/COOX STAT 08/31/2022 1:41 PM CDT POTASSIUM, B STAT 08/31/2022 1:41 PM CDT CALCIUM, IONIZED, S/B STAT 08/31/2022 1:41 PM CDT ACTIVATED PARTIAL THROMBOPLASTIN TIME (APTT), P STAT 08/31/2022 1:40 PM CDT PROTHROMBIN TIME (PT), P STAT 08/31/2022 1:40 PM CDT FIBRINOGEN, P STAT 08/31/2022 1:40 PM CDT PLATELETS, B STAT 08/31/2022 1:40 PM CDT TRANSFUSE CRYOPRECIPITATE Routine 08/31/2022 1:24 PM CDT TRANSFUSE CRYOPRECIPITATE Routine 08/31/2022 1:20 PM CDT TRANSFUSE RED BLOOD CELLS Routine 08/31/2022 12:59 PM CDT TRANSFUSE PLATELETS Routine 08/31/2022 12:48 PM CDT LACTATE, B STAT 08/31/2022 12:17 PM CDT PATIENT STATUS STAT 08/31/2022 12:17 PM CDT SODIUM, B STAT 08/31/2022 12:17 PM CDT ABG W/COOX STAT 08/31/2022 12:17 PM CDT POTASSIUM, B STAT 08/31/2022 12:17 PM CDT GLUCOSE, WHOLE BLOOD STAT 08/31/2022 12:17 PM CDT CALCIUM, IONIZED, S/B STAT 08/31/2022 12:17 PM CDT ACTIVATED PARTIAL THROMBOPLASTIN TIME (APTT), P STAT 08/31/2022 12:16 PM CDT PROTHROMBIN TIME (PT), P STAT 08/31/2022 12:16 PM CDT FIBRINOGEN, P STAT 08/31/2022 12:16 PM CDT PLATELETS, B STAT 08/31/2022 12:16 PM CDT TRANSFUSE RED BLOOD CELLS Routine 08/31/2022 11:55 AM CDT LACTATE, B STAT 08/31/2022 11:24 AM CDT PATIENT STATUS STAT 08/31/2022 11:24 AM CDT SODIUM, B STAT 08/31/2022 11:24 AM CDT ABG W/COOX STAT 08/31/2022 11:24 AM CDT POTASSIUM, B STAT 08/31/2022 11:24 AM CDT GLUCOSE, WHOLE BLOOD STAT 08/31/2022 11:24 AM CDT CALCIUM, IONIZED, S/B STAT 08/31/2022 11:24 AM CDT DX SPINE 1 VIEW RAD - Routine (most inpatients and all outpatients) 08/31/2022 10:01 AM CDT DECOMPRESSION POSTERIOR LUMBAR WITH FUSION 08/31/2022 7:40 AM CDT Stenosis Spinal IONM - EMG Routine 08/31/2022 7:10 AM CDT ADULT OXYGEN THERAPY Routine 08/31/2022 6:51 AM CDT PREPARE RED BLOOD CELLS Routine 08/22/2022 11:18 AM CDT PREPARE RED BLOOD CELLS STAT 08/22/2022 11:18 AM CDT PREPARE RED BLOOD CELLS STAT 08/22/2022 11:18 AM CDT PREPARE RED BLOOD CELLS STAT 08/22/2022 11:18 AM CDT documented in this encounter Results * Transfuse Red Blood Cells : (09/04/2022 1:11 PM CDT) us Calvin Escalera M.D., Ph.D. BLOOD TRANSFUSION ORDERA BLES Final Result * Transfuse Red Blood Cells : , 1 Units (09/04/2022 1:11 PM CDT) us Calvin Escalera M.D., Ph.D. BLOOD TRANSFUSION ORDERA BLES Final Result * Type and Screen (with reflex Antibody ID) (09/04/2022 9:10 AM CDT) Pathologist [facility] ABORh A Pos Not applicable 09/04/2022 9:33 AM CDT STRM Antibody Screen Negative Negative 09/04/2022 9:46 AM CDT STRM Type & Screen Expiration 09/07/2022 23:59 09/04/2022 9:33 AM CDT STRM Testing Location [place] DEFAULT 09/04/2022 9:14 AM CDT STRM Blood (Blood, Venous) 09/04/2022 9:10 AM CDT 09/04/2022 9:14 AM CDT Calvin Escalera M.D., Ph.D. LAB BLOOD BANK TEST ORDE BOBO Final Result [facility] [address] [place] [address], [facility] [address] [place] [address] * (ABNORMAL) CBC without Differential (09/04/2022 4:28 AM CDT) Pathologist [facility] Hemoglobin 8.0(L) 11.6 - 15.0 g/dL 09/04/2022 4:53 AM CDT DTL Hematocrit 23.9(L) 35.5 - 44.9 % 09/04/2022 4:53 AM CDT DTL Erythrocytes 2.54(L) 3.92 - 5.13 x10(12)/L 09/04/2022 4:53 AM CDT DTL MCV 94.1 78.2 - 97.9 fL 09/04/2022 4:53 AM CDT DTL RBC Distrib Width 15.7 12.2 - 16.1 % 09/04/2022 4:53 AM CDT DTL Platelet Count 125(L) 157 - 371 x10(9)/L 09/04/2022 4:53 AM CDT DTL Leukocytes 4.0 3.4 - 9.6 x10(9)/L 09/04/2022 4:53 AM CDT DTL Blood (Blood, Venous) 09/04/2022 4:28 AM CDT 09/04/2022 4:46 AM CDT us Calvin Escalera M.D., Ph.D. LAB BLOOD ADD-ON Final R esult [facility] [address] [place] [address] * (ABNORMAL) Sodium (09/02/2022 2:09 PM CDT) Sodium, S 131(L) 135 - 145 mmol/L 09/02/2022 3:08 PM CDT DTL Blood (Blood, Venous) 09/02/2022 2:09 PM CDT 09/02/2022 2:51 PM CDT us Reina Zamorano P.A.-C. LAB BLOOD ADD-ON Final Result [facility] [address] [place] [address] * DX Lumbar Spine 2-3 Views (09/02/2022 1:20 PM CDT) Anatomical Region Laterality Modality Lumbar Spine, Musculoskeleta l RST LOS, Neuroradiology ARZ LOS, Muskuloskeletal FLA LOS N/A Digital Radiography 09/02/2022 1:26 PM CDT Impressions 09/02/2022 1:29 PM CDT Compared to 05/11/2020. New L2-S1 posterior fusion with interbody spacers. Surgical drains. Narrative 09/02/2022 1:29 PM CDT EXAM: DX LUMBAR SPINE 2-3 VIEWS Procedure Note Chino Lilly M.D., M.S. - 09/02/2022 EXAM: DX LUMBAR SPINE 2-3 VIEWS IMPRESSION: Compared to 05/11/2020. New L2-S1 posterior fusion with interbody spacers.Surgical drains. Armani Jimenez M.D., Ph.D. IMG DIAGNOSTIC COLETTE GING PROCEDURES Final Result * (ABNORMAL) Basic Metabolic Panel (09/02/2022 4:53 AM CDT) Potassium, S 4.3 3.6 - 5.2 mmol/L 09/02/2022 6:09 AM CDT DTL Sodium, S 130(L) 135 - 145 mmol/L 09/02/2022 6:09 AM CDT DTL Chloride, S 97(L) 98 - 107 mmol/L 09/02/2022 6:09 AM CDT DTL Bicarbonate, S 25 22 - 29 mmol/L 09/02/2022 6:09 AM CDT DTL Anion Gap 8 7 - 15 09/02/2022 6:09 AM CDT DTL BUN (Blood Urea Nitrogen), S 9 6 - 21 mg/dL 09/02/2022 6:09 AM CDT DTL Creatinine 0.76 0.59 - 1.04 mg/dL 09/02/2022 6:09 AM CDT DTL Estimated GFR (eGFR) 83 >=60 mL/min/BSA 09/02/2022 6:09 AM CDT DTL Comment: Estimated GFR calculated using the 2020 CKD_EPI creatinine equation. Calcium, Total, S 8.4(L) 8.8 - 10.2 mg/dL 09/02/2022 6:09 AM CDT DTL Glucose, S 99 70 - 140 mg/dL 09/02/2022 6:09 AM CDT DTL Blood (Blood, Venous) 09/02/2022 4:53 AM CDT 09/02/2022 5:51 AM CDT Juliana SANTILLAN P.A.-C., M.P.H. LAB BLOOD ADD-ON Final Result Performing Organization Address City/[facility] [[email or web address]] de Phone Number [facility] [address] [place] [address], [facility] DTL [facility] [address] [place] [address] * (ABNORMAL) CBC without Differential (09/02/2022 4:53 AM CDT) Pathologist [facility] Hemoglobin 9.1(L) 11.6 - 15.0 g/dL 09/02/2022 5:45 AM CDT DTL Hematocrit 26.8(L) 35.5 - 44.9 % 09/02/2022 5:45 AM CDT DTL Erythrocytes 2.93(L) 3.92 - 5.13 x10(12)/L 09/02/2022 5:45 AM CDT DTL MCV 91.5 78.2 - 97.9 fL 09/02/2022 5:45 AM CDT DTL RBC Distrib Width 17.0(H) 12.2 - 16.1 % 09/02/2022 5:45 AM CDT DTL Platelet Count 108(L) 157 - 371 x10(9)/L 09/02/2022 5:45 AM CDT DTL Leukocytes 5.7 3.4 - 9.6 x10(9)/L 09/02/2022 5:45 AM CDT DTL Blood (Blood, Venous) 09/02/2022 4:53 AM CDT 09/02/2022 5:36 AM CDT Lea Novak.A.-C., M.P.H. LAB BLOOD ADD-ON Final Result Performing Organization Address City/[facility] Co de Phone Number [facility] [address] [place] [address], [facility] [address] [place] [address] * Transfuse Red Blood Cells : (09/01/2022 10:58 PM CDT) Juliana HSU P.A.-C., M.P.H. BLOOD TRANSFUSION ORDERABLES Final Result * Transfuse Red Blood Cells : , 1 Units (09/01/2022 10:58 PM CDT) Juliana HSU P.A.-C., M.P.H. BLOOD TRANSFUSION ORDERABLES Final Result * Calcium, Ionized (09/01/2022 1:33 PM CDT) Pathologist [facility] Calcium, Ionized, S 5.21 4.57 - 5.43 mg/dL 09/01/2022 2:21 PM CDT DTL Comment: ----ADDITIONAL INFORMATION---- This test has been modified from the compounding pharmacy technician's instructions. Its performance characteristics were determined by [facility] in a manner consistent with CLIA requirements. This test has not been cleared or approved by the [place].S. Food and Drug Administration. pH for Ionized Calcium 7.37 7.35 - 7.48 09/01/2022 2:21 PM CDT DTL Blood (Blood, Venous) 09/01/2022 1:33 PM CDT 09/01/2022 2:10 PM CDT Shannon Novak-Socorro., M.P.H. LAB BLOOD NON ADD-ON Final Result [facility] [address] [place] [address], [facility] [address] [place] [address] * (ABNORMAL) Basic Metabolic Panel (09/01/2022 4:23 AM CDT) Potassium, S 4.8 3.6 - 5.2 mmol/L 09/01/2022 5:39 AM CDT DTL Sodium, S 130(L) 135 - 145 mmol/L 09/01/2022 5:39 AM CDT DTL Chloride, S 98 98 - 107 mmol/L 09/01/2022 5:39 AM CDT DTL Bicarbonate, S 26 22 - 29 mmol/L 09/01/2022 5:39 AM CDT DTL Anion Gap 6(L) 7 - 15 09/01/2022 5:39 AM CDT DTL BUN (Blood Urea Nitrogen), S 11 6 - 21 mg/dL 09/01/2022 5:39 AM CDT DTL Creatinine 0.73 0.59 - 1.04 mg/dL 09/01/2022 5:39 AM CDT DTL Estimated GFR (eGFR) 87 >=60 mL/min/BSA 09/01/2022 5:39 AM CDT DTL Comment: Estimated GFR calculated using the 2020 CKD_EPI creatinine equation. Calcium, Total, S 9.1 8.8 - 10.2 mg/dL 09/01/2022 5:39 AM CDT DTL Glucose, S 91 70 - 140 mg/dL 09/01/2022 5:39 AM CDT DTL Blood (Blood, Venous) 09/01/2022 4:23 AM CDT 09/01/2022 5:20 AM CDT Armani Jimenez M.D., Ph.D. LAB BLOOD ADD-ON F inal Result [facility] [address] [place] [address], [facility] [address] [place] [address] * (ABNORMAL) CBC with Differential, Blood (09/01/2022 4:23 AM CDT) Pathologist [facility] Hemoglobin 8.0(L) 11.6 - 15.0 g/dL 09/01/2022 5:15 AM CDT DTL Hematocrit 23.8(L) 35.5 - 44.9 % 09/01/2022 5:15 AM CDT DTL Erythrocytes 2.61(L) 3.92 - 5.13 x10(12)/L 09/01/2022 5:15 AM CDT DTL MCV 91.2 78.2 - 97.9 fL 09/01/2022 5:15 AM CDT DTL RBC Distrib Width 18.4(H) 12.2 - 16.1 % 09/01/2022 5:15 AM CDT DTL Platelet Count 107(L) 157 - 371 x10(9)/L 09/01/2022 5:15 AM CDT DTL Leukocytes 4.7 3.4 - 9.6 x10(9)/L 09/01/2022 5:15 AM CDT DTL Neutrophils 2.79 1.56 - 6.45 x10(9)/L 09/01/2022 5:15 AM CDT DTL Lymphocytes 1.38 0.95 - 3.07 x10(9)/L 09/01/2022 5:15 AM CDT DTL Monocytes 0.49 0.26 - 0.81 x10(9)/L 09/01/2022 5:15 AM CDT DTL Eosinophils 0.07 0.03 - 0.48 x10(9)/L 09/01/2022 5:15 AM CDT DTL Basophils <0.03 0.01 - 0.08 x10(9)/L 09/01/2022 5:15 AM CDT DTL Blood (Blood, Venous) 09/01/2022 4:23 AM CDT 09/01/2022 5:09 AM CDT us Armani Jimenez M.D., Ph.D. LAB BLOOD ADD-ON F inal Result [facility] [address] [place] [address], [facility] [address] [place] [address] * (ABNORMAL) Hemoglobin (08/31/2022 8:12 PM CDT) Hemoglobin 8.6(L) 11.6 - 15.0 g/dL 08/31/2022 8:21 PM CDT STMA Blood (Blood, Venous) 08/31/2022 8:12 PM CDT 08/31/2022 8:19 PM CDT Bandar Lee M.D. LAB BLOOD ADD-ON Final Resul t Performing Organization Address City/[facility] Co de Phone Number [facility] [address] [place] [address], [facility] STMA [facility] [address] [place] [address] * FL OARM (08/31/2022 6:12 PM CDT) Narrative 152 HOS LOS RST - 08/31/2022 6:14 PM CDT This exam does not require a radiologist review or interpretation. Please refer to the patient's medical record on this date for clinical details. Frederick Zheng M.D. IMG FLUOROSCOPY PROCEDURES Fi nal Result Performing Organization Address [facility] [[email or web address]] de Phone Number 152 HOS LOS RST * FL Fluoro Less Than 1 Hour (08/31/2022 3:48 PM CDT) Narrative 152 HOS LOS RST - 08/31/2022 3:52 PM CDT This exam does not require a radiologist review or interpretation. Please refer to the patient's medical record on this date for clinical details. Frederick Zheng M.D. IMG FLUOROSCOPY PROCEDURES Fi nal Result Performing Organization Address [facility] [[email or web address]] de Phone Number 152 HOS LOS RST * Patient Status (08/31/2022 3:13 PM CDT) Temperature 36.8 37.0 deg C 08/31/2022 3:13 PM CDT STMA FIO2 0.46 0.21=AIR 08/31/2022 3:13 PM CDT [facility] Blood 08/31/2022 3:13 PM CDT 08/31/2022 3:13 PM CDT us Smooth Goff APRN, CRNA LAB BLOOD NON ADD-ON F inal Result Performing Organization Address [facility]/ZIP Co de Phone Number [facility] [address] [place] [address] * Glucose, Whole Blood (08/31/2022 3:13 PM CDT) Glucose 99 70 - 140 mg/dL 08/31/2022 3:16 PM CDT STMA Blood (Blood, Arterial Line) 08/31/2022 3:13 PM CDT 08/31/2022 3:13 PM CDT Álvaro Mandujano M.D. LAB BLOOD ADD-ON Final R esult Performing Organization Address [facility]/ZIP Co de Phone Number [facility] [address] [place], [place] [address] [place] [address] [address] [place] [address] * Potassium, Blood (08/31/2022 3:13 PM CDT) [facility] Potassium, B 4.2 3.6 - 5.2 mmol/L 08/31/2022 3:16 PM CDT STMA Blood (Blood, Arterial Line) 08/31/2022 3:13 PM CDT 08/31/2022 3:13 PM CDT Álvaro Mandujano M.D. LAB BLOOD NON ADD-ON Fin al Result Performing Organization Address City/[facility]/ZIP Co de Phone Number [facility] [address] [place] [address] * (ABNORMAL) Sodium, B (08/31/2022 3:13 PM CDT) Sodium, B 132(L) 135 - 145 mmol/L 08/31/2022 3:16 PM CDT STMA Blood (Blood, Arterial Line) 08/31/2022 3:13 PM CDT 08/31/2022 3:13 PM CDT Álvaro Mandujano M.D. LAB BLOOD NON ADD-ON Fin al Result Performing Organization Address City/[facility]/ZIP Co de Phone Number [facility] [address] [place] [address], [facility] [address] [place] [address] * (ABNORMAL) Calcium, Ionized (08/31/2022 3:13 PM CDT) Calcium, Ionized, B 5.91(H) 4.65 - 5.30 mg/dL 08/31/2022 3:16 PM CDT ST[facility] Blood (Blood, Arterial Line) 08/31/2022 3:13 PM CDT 08/31/2022 3:13 PM CDT Álvaro Mandujano M.D. LAB BLOOD NON ADD-ON Fin al Result Performing Organization Address City/[facility] Co de Phone Number [facility] [address] [place] [address], [facility] [address] [place] [address] * (ABNORMAL) Blood Gas with Coox, Arterial (08/31/2022 3:13 PM CDT) pO2 220(H) 83 - 108 mm Hg 08/31/2022 3:16 PM CDT STMA pCO2 40 32 - 45 mm Hg 08/31/2022 3:16 PM CDT ST[facility] pH 7.39 7.35 - 7.45 pH 08/31/2022 3:16 PM CDT STMA Base Excess -1 -2 - 3 mmol/L 08/31/2022 3:16 PM CDT [facility] HCO3 24 22 - 26 mmol/L 08/31/2022 3:16 PM CDT STMA Hemoglobin, Venous 8.2(L) 11.6 - 15.0 g/dL 08/31/2022 3:16 PM CDT [facility] O2Hb 98.2(H) 94.0 - 98.0 % 08/31/2022 3:16 PM CDT ST[facility] COHb 1.6 <3.0 % 08/31/2022 3:16 PM CDT STMA MetHb <1.0 <1.5 % 08/31/2022 3:16 PM CDT ST[facility] CtO2 11.8(L) 18.0 - 21.0 vol % 08/31/2022 3:16 PM CDT ST[facility] Blood (Blood, Arterial Line) 08/31/2022 3:13 PM CDT 08/31/2022 3:13 PM CDT Álvaro Mandujano M.D. LAB BLOOD NON ADD-ON Fin al Result Performing Organization Address City/[facility]/ZIP Co de Phone Number [facility] [address] [place] [address] * Transfuse Red Blood Cells : (08/31/2022 2:29 PM CDT) Kayla Rolon M.D. BLOOD TRANSFUSION ORDERABLES Final Result * Patient Status (08/31/2022 1:41 PM CDT) Temperature 36.4 37.0 deg C 08/31/2022 1:41 PM CDT [facility] FIO2 0.46 0.21=AIR 08/31/2022 1:41 PM CDT [facility] Blood 08/31/2022 1:41 PM CDT 08/31/2022 1:41 PM CDT Smooth Goff CARDIAC CATHETERIZATION TECHNOLOGIST, [employer] LAB BLOOD NON ADD-ON F inal Result Performing Organization Address [facility]/ZIP Co de Phone Number [facility] [address] STMA [facility] [address] [place] [address] * Potassium, Blood (08/31/2022 1:41 PM CDT) Potassium, B 4.2 3.6 - 5.2 mmol/L 08/31/2022 1:44 PM CDT STMA Blood (Blood, Arterial Line) 08/31/2022 1:41 PM CDT 08/31/2022 1:41 PM CDT Kayla Rolon M.D. LAB BLOOD NON ADD-ON Final R esult [facility] [address] [place] [address], [facility] [address] [place] [address] * (ABNORMAL) Sodium, B (08/31/2022 1:41 PM CDT) Pathologist [facility] Sodium, B 132(L) 135 - 145 mmol/L 08/31/2022 1:44 PM CDT STMA Blood (Blood, Arterial Line) 08/31/2022 1:41 PM CDT 08/31/2022 1:41 PM CDT Kayla Rolon M.D. LAB BLOOD NON ADD-ON Final [facility] [employer] [facility] [employer] [facility] [address] [place] [address], [address] [address] * (ABNORMAL) Calcium, Ionized (08/31/2022 1:41 PM CDT) Calcium, Ionized, B 4.29(L) 4.65 - 5.30 mg/dL 08/31/2022 1:44 PM CDT ST[facility] Blood (Blood, Arterial Line) 08/31/2022 1:41 PM CDT 08/31/2022 1:41 PM CDT Kayla Rolon M.D. LAB BLOOD NON ADD-ON Final R esult [facility] [address] [place], [place] [id number] [place], [place] [address]A [facility] [address] [place] [address] * (ABNORMAL) Blood Gas with Coox, Arterial (08/31/2022 1:41 PM CDT) [facility] pO2 226(H) 83 - 108 mm Hg 08/31/2022 1:44 PM CDT [facility] pCO2 39 32 - 45 mm Hg 08/31/2022 1:44 PM CDT ST[facility] pH 7.40 7.35 - 7.45 pH 08/31/2022 1:44 PM CDT ST[facility] Base Excess -1 -2 - 3 mmol/L 08/31/2022 1:44 PM CDT [facility] HCO3 24 22 - 26 mmol/L 08/31/2022 1:44 PM CDT STMA Hemoglobin, Venous 7.7(L) 11.6 - 15.0 g/dL 08/31/2022 1:44 PM CDT [facility] O2Hb 98.5(H) 94.0 - 98.0 % 08/31/2022 1:44 PM CDT ST[facility] COHb 1.5 <3.0 % 08/31/2022 1:44 PM CDT ST[facility] MetHb <1.0 <1.5 % 08/31/2022 1:44 PM CDT [facility] CtO2 11.2(L) 18.0 - 21.0 vol % 08/31/2022 1:44 PM CDT [facility] Blood (Blood, Arterial Line) 08/31/2022 1:41 PM CDT 08/31/2022 1:41 PM CDT us Kayla Rolon M.D. LAB BLOOD NON ADD-ON Final R esult [facility] [address] [place] [address], [facility] [address] [place] [address] * (ABNORMAL) Platelet Count (08/31/2022 1:40 PM CDT) Platelet Count 114(L) 157 - 371 x10(9)/L 08/31/2022 1:46 PM CDT [facility] Blood (Blood, Arterial Line) 08/31/2022 1:40 PM CDT 08/31/2022 1:40 PM CDT us Kayla Rolon M.D. LAB BLOOD ADD-ON Final Resul t Performing Organization Address [facility] [[email or web address]] de Phone Number [facility] [address] [place] [address], [facility] [address] [place] [address] * Prothrombin Time (PT) (08/31/2022 1:40 PM CDT) Pathologist [facility] Prothrombin Time, P 11.4 9.4 - 12.5 sec 08/31/2022 1:52 PM CDT [facility] INR 1.0 0.9 - 1.1 08/31/2022 1:52 PM CDT [facility] Comment: ----ADDITIONAL INFORMATION---- Standard intensity warfarin therapeutic range: 2.0 to 3.0 High intensity warfarin therapeutic range: 2.5 to 3.5 Blood (Blood, Arterial Line) 08/31/2022 1:40 PM CDT 08/31/2022 1:40 PM CDT us Kayla Rolon M.D. LAB BLOOD ADD-ON Final Resul t Performing Organization Address [facility] Co de Phone Number [facility] [address] [place] [address], [facility] [address] [place] [address] * Fibrinogen (08/31/2022 1:40 PM CDT) Fibrinogen, P 208 200 - 393 mg/dL 08/31/2022 1:52 PM CDT [facility] Blood (Blood, Arterial Line) 08/31/2022 1:40 PM CDT 08/31/2022 1:40 PM CDT Result Nicolas Rolon M.D. LAB BLOOD ADD-ON Final Resul t Performing Organization Address [facility] Co de Phone Number [facility] [address] [place] [address] * APTT (Activated Partial Thromboplastin Time) (08/31/2022 1:40 PM CDT) Activated Partial Thrombopl Time, P 25 25 - 37 sec 08/31/2022 1:54 PM CDT [facility] Blood (Blood, Arterial Line) 08/31/2022 1:40 PM CDT 08/31/2022 1:40 PM CDT Result Nicolas Rolon M.D. LAB BLOOD ADD-ON Final Resul t Performing Organization Address [facility] [[email or web address]] de Phone Number [facility] [address] [place] [address] * Transfuse Pooled Cryoprecipitate: (08/31/2022 1:26 PM CDT) Result Nicolas Rolon M.D. BLOOD TRANSFUSION ORDERABLES Final Result * Transfuse Pooled Cryoprecipitate: (08/31/2022 1:24 PM CDT) Result Nicolas Rolon M.D. BLOOD TRANSFUSION ORDERABLES Edited Result - Final * Transfuse Red Blood Cells : (08/31/2022 1:01 PM CDT) Result Nicolas Rolon M.D. BLOOD TRANSFUSION ORDERABLES Final Result * Transfuse Platelets : (08/31/2022 12:50 PM CDT) Result Nicolas Rolon M.D. BLOOD TRANSFUSION ORDERABLES Final Result * Patient Status (08/31/2022 12:17 PM CDT) Temperature 37.0 37.0 deg C 08/31/2022 12:17 PM CDT [facility] FIO2 0.46 0.21=AIR 08/31/2022 12:17 PM CDT [facility] Blood 08/31/2022 12:1 7 PM CDT 08/31/2022 12:17 PM CDT [facility] CARDIAC CATHETERIZATION TECHNOLOGIST, [employer]OUNDER, DNAP, M.S. LAB BLOOD NON ADD-ON Final Result Performing Organization Address [facility] [[email or web address]] de Phone Number [facility] [address] [place] [address], [facility] [address] [place] [address] * Lactate, B - Intra-op (08/31/2022 12:17 PM CDT) Pathologist [facility] Lactate, B 1.3 0.5 - 2.2 mmol/L 08/31/2022 12:19 PM CDT [facility] Blood (Blood, Venous) 08/31/2022 12:17 PM CDT 08/31/2022 12:17 PM CDT Kayla Rolon M.D. LAB BLOOD NON ADD-ON Final R esult Performing Organization Address [facility] [[email or web address]] de Phone Number [facility] [address] [place] [address], [facility] [address] [place] [address] * Glucose, Whole Blood (08/31/2022 12:17 PM CDT) Pathologist [facility] Glucose 116 70 - 140 mg/dL 08/31/2022 12:19 PM CDT [facility] Blood (Blood, Arterial Line) 08/31/2022 12:17 PM CDT 08/31/2022 12:17 PM CDT Kayla Rolon M.D. LAB BLOOD ADD-ON Final Resul t Performing Organization Address City/[facility] Co de Phone Number [facility] [address] [place] [address], [facility] [address] [place] [address] * Potassium, Blood (08/31/2022 12:17 PM CDT) Potassium, B 4.4 3.6 - 5.2 mmol/L 08/31/2022 12:19 PM CDT [facility] Blood (Blood, Arterial Line) 08/31/2022 12:17 PM CDT 08/31/2022 12:17 PM CDT us Kayla Rolon M.D. LAB BLOOD NON ADD-ON Final R esult Performing Organization Address City/[facility] Co de Phone Number [facility] [address] [place] [address], [facility] [address] [place] [address] * (ABNORMAL) Sodium, B (08/31/2022 12:17 PM CDT) Sodium, B 130(L) 135 - 145 mmol/L 08/31/2022 12:19 PM CDT [facility] Blood (Blood, Arterial Line) 08/31/2022 12:17 PM CDT 08/31/2022 12:17 PM CDT us Kayla Rolon M.D. LAB BLOOD NON ADD-ON Final R esult Performing Organization Address City/State/[facility] Co de Phone Number [facility] [address] [place] [address], [facility] [address] [place] [address] * Calcium, Ionized (08/31/2022 12:17 PM CDT) Calcium, Ionized, B 4.91 4.65 - 5.30 mg/dL 08/31/2022 12:19 PM CDT [facility] Blood (Blood, Arterial Line) 08/31/2022 12:17 PM CDT 08/31/2022 12:17 PM CDT Kayla Rolon M.D. LAB BLOOD NON ADD-ON Final R esult Performing Organization Address City/[facility]/ZIP Co de Phone Number [facility] [address] [place] [address], [facility] STMA [facility] [address] [place] [address] * (ABNORMAL) Blood Gas with Coox, Arterial (08/31/2022 12:17 PM CDT) [facility] Signature pO2 223(H) 83 - 108 mm Hg 08/31/2022 12:19 PM CDT [facility] pCO2 44 32 - 45 mm Hg 08/31/2022 12:19 PM CDT [facility] pH 7.34(L) 7.35 - 7.45 pH 08/31/2022 12:19 PM CDT [facility] Base Excess -2 -2 - 3 mmol/L 08/31/2022 12:19 PM CDT [facility] HCO3 24 22 - 26 mmol/L 08/31/2022 12:19 PM CDT [facility] Hemoglobin, Venous 8.0(L) 11.6 - 15.0 g/dL 08/31/2022 12:19 PM CDT [facility] O2Hb 99.0(H) 94.0 - 98.0 % 08/31/2022 12:19 PM CDT [facility] COHb 1.5 <3.0 % 08/31/2022 12:19 PM CDT [facility] MetHb <1.0 <1.5 % 08/31/2022 12:19 PM CDT [facility] CtO2 11.7(L) 18.0 - 21.0 vol % 08/31/2022 12:19 PM CDT [facility] Blood (Blood, Arterial Line) 08/31/2022 12:17 PM CDT 08/31/2022 12:17 PM CDT us Kayla Rolon M.D. LAB BLOOD NON ADD-ON Final R esult [facility] [address] [place], [place] [id number] [place] [address] [address] [place] [address] * (ABNORMAL) Platelet Count (08/31/2022 12:16 PM CDT) [facility] Platelet Count 101(L) 157 - 371 x10(9)/L 08/31/2022 12:24 PM CDT [facility] Blood (Blood, Arterial Line) 08/31/2022 12:16 PM CDT 08/31/2022 12:16 PM CDT us Kayla Rolon M.D. LAB BLOOD ADD-ON Final Resul t Performing Organization Address City/[facility]/ZIP Co de Phone Number [facility] [address] [place] [address] * Prothrombin Time (PT) (08/31/2022 12:16 PM CDT) [facility] Prothrombin Time, P 11.1 9.4 - 12.5 sec 08/31/2022 12:33 PM CDT [facility] INR 1.0 0.9 - 1.1 08/31/2022 12:33 PM CDT [facility] Comment: ----ADDITIONAL INFORMATION---- Standard intensity warfarin therapeutic range: 2.0 to 3.0 High intensity warfarin therapeutic range: 2.5 to 3.5 Blood (Blood, Arterial Line) 08/31/2022 12:16 PM CDT 08/31/2022 12:16 PM CDT us Kayla Rolon M.D. LAB BLOOD ADD-ON Final Resul t [facility] [address] [place] [address] * (ABNORMAL) Fibrinogen (08/31/2022 12:16 PM CDT) Pathologist [facility] Fibrinogen, P 160(L) 200 - 393 mg/dL 08/31/2022 12:32 PM CDT [facility] Blood (Blood, Arterial Line) 08/31/2022 12:16 PM CDT 08/31/2022 12:16 PM CDT us Kayla Rolon M.D. LAB BLOOD ADD-ON Final Resul t Performing Organization Address City/[facility] Co de Phone Number [facility] [address] [place] [address] * APTT (Activated Partial Thromboplastin Time) (08/31/2022 12:16 PM CDT) Pathologist [facility] Activated Partial Thrombopl Time, P 27 25 - 37 sec 08/31/2022 12:35 PM CDT STMA Blood (Blood, Arterial Line) 08/31/2022 12:16 PM CDT 08/31/2022 12:16 PM CDT us Kayla Rolon M.D. LAB BLOOD ADD-ON Final Resul t Performing Organization Address [facility] Co de Phone Number [facility] [address] [place] [address] * Transfuse Red Blood Cells : (08/31/2022 11:58 AM CDT) us Kayla Rolon M.D. BLOOD TRANSFUSION ORDERABLES Final Result * Patient Status (08/31/2022 11:24 AM CDT) Temperature 35.4 37.0 deg C 08/31/2022 11:24 AM CDT STMA FIO2 0.47 0.21=AIR 08/31/2022 11:24 AM CDT STMA Blood 08/31/2022 11:2 4 AM CDT 08/31/2022 11:24 AM CDT Kamryn Meek APRN, [employer], DNAP LAB BLOOD NON ADD -ON Final Result Performing Organization Address City/[facility]/ZIP Co de Phone Number [facility] [address] [place] [address] * Lactate, B - Intra-op (08/31/2022 11:24 AM CDT) Lactate, B 0.8 0.5 - 2.2 mmol/L 08/31/2022 11:27 AM CDT STMA Blood (Blood, Venous) 08/31/2022 11:24 AM CDT 08/31/2022 11:24 AM CDT Kayla Rolon M.D. LAB BLOOD NON ADD-ON Final R esult Performing Organization Address City/[facility]/ZIP Co de Phone Number [facility] [address] [place] [address], [facility] 200 [place] [address] * Glucose, Whole Blood (08/31/2022 11:24 AM CDT) Glucose 103 70 - 140 mg/dL 08/31/2022 11:27 AM CDT [facility] (Blood, Arterial Line) 08/31/2022 11:24 AM CDT 08/31/2022 11:24 AM CDT Kayla Rolon M.D. LAB BLOOD ADD-ON Final Resul t Performing Organization Address City/[facility]/ZIP Co de Phone Number [facility] [address] [place] [address], [facility] 200 [place] [address] * Potassium, Blood (08/31/2022 11:24 AM CDT) Potassium, B 3.9 3.6 - 5.2 mmol/L 08/31/2022 11:27 AM CDT STMA Blood (Blood, Arterial Line) 08/31/2022 11:24 AM CDT 08/31/2022 11:24 AM CDT us Kayal Rolon M.D. LAB BLOOD NON ADD-ON Final R esult Performing Organization Address City/[facility]/ZIP Co de Phone Number [facility] [address] [place] [address] * (ABNORMAL) Sodium, B (08/31/2022 11:24 AM CDT) Sodium, B 130(L) 135 - 145 mmol/L 08/31/2022 11:27 AM CDT STMA Blood (Blood, Arterial Line) 08/31/2022 11:24 AM CDT 08/31/2022 11:24 AM CDT us Kayla Rolon M.D. LAB BLOOD NON ADD-ON Final R esult Performing Organization Address City/[facility] Co de Phone Number [facility] [address] [place], [place] [id number] [place] [address] 200 [place] [address] * Calcium, Ionized (08/31/2022 11:24 AM CDT) Calcium, Ionized, B 4.95 4.65 - 5.30 mg/dL 08/31/2022 11:27 AM CDT STMA Blood (Blood, Arterial Line) 08/31/2022 11:24 AM CDT 08/31/2022 11:24 AM CDT us Kayla Rolon M.D. LAB BLOOD NON ADD-ON Final R esult Performing Organization Address City/[facility]/ZIP Co de Phone Number [facility] [address] [place] [address] * (ABNORMAL) Blood Gas with Coox, Arterial (08/31/2022 11:24 AM CDT) pO2 220(H) 83 - 108 mm Hg 08/31/2022 11:27 AM CDT STMA pCO2 38 32 - 45 mm Hg 08/31/2022 11:27 AM CDT STMA pH 7.40 7.35 - 7.45 pH 08/31/2022 11:27 AM CDT STMA Base Excess -1 -2 - 3 mmol/L 08/31/2022 11:27 AM CDT STMA HCO3 24 22 - 26 mmol/L 08/31/2022 11:27 AM CDT STMA Hemoglobin, Venous 7.2(L) 11.6 - 15.0 g/dL 08/31/2022 11:27 AM CDT STMA O2Hb 99.2(H) 94.0 - 98.0 % 08/31/2022 11:27 AM CDT STMA COHb 1.5 <3.0 % 08/31/2022 11:27 AM CDT STMA MetHb <1.0 <1.5 % 08/31/2022 11:27 AM CDT STMA CtO2 10.6(L) 18.0 - 21.0 vol % 08/31/2022 11:27 AM CDT STMA Blood (Blood, Arterial Line) 08/31/2022 11:24 AM CDT 08/31/2022 11:24 AM CDT Kayla Rolon M.D. LAB BLOOD NON ADD-ON Final R esult [facility] [address] [place] [address], [facility] [address] [place] [address] * Dx Spine 1 View (08/31/2022 10:01 AM CDT) Anatomical Region Laterality Modality Spine, Musculoskeletal RST L OS, Neuroradiology ARZ LOS, Muskuloskeletal FLA LOS N/A Digital Radiography 08/31/2022 10:0 2 AM CDT Impressions 08/31/2022 10:02 AM CDT Radiograph of the lumbar spine for intraoperative localization. Narrative 08/31/2022 10:02 AM CDT EXAM: DX SPINE 1 VIEW Procedure Note Yoseph Briones M.D. - 08/31/2022 EXAM: DX SPINE 1 VIEW IMPRESSION: Radiograph of the lumbar spine for intraoperative localization. Armani Jimenez M.D., Ph.D. IMG DIAGNOSTIC COLETTE GING PROCEDURES Final Result * IONM - EMG (08/31/2022 7:10 AM CDT) 08/31/2022 8:00 AM CDT Narrative [facility] EMG - 08/31/2022 3:21 PM CDT Table formatting from the original result was not included. 31-Aug-2022 Intraoperative Monitoring Amended Report Study Number: 1 EMG Milling Machine Operator: Kimani Schumacher . 127 or [phone] Referred by: FREDERICK ZHENG (127 or [phone]) Referred for: Referral Code: 8 RX: 1958 SUMMARY: Somatosensory evoked potentials (SEPs), transcranial electric motor evoked potentials (MEPs), and free running needle electromyography (EMG) were monitored during L3- S1 posterior lumbar fusion. All stimulation and recording was performed with needle electrodes. Ulnar and tibial nerves were stimulated for SEPs. MEPs were recorded from the following muscles bilaterally: abductor digiti minimi, adductor longus, vastus lateralis, tibialis anterior, peroneus longus, medial gastrocnemius, abductor hallucis. Free running EMG was recorded from all lower limb muscles mentioned above. Four twitches were present on train of four (TOF) from all four limbs during baseline MEP recordings and after exposure was completed prior to resumption of MEP and EMG monitoring. SEP Reliable cortical SEPs were recorded at baseline from all four limbs in the supine position; the surgeon was informed prior to exposure. There were no significant changes in cortical SEP amplitudes during surgery. MEP Reliable MEPs were recorded at baseline from all muscles in the supine position; the surgeon was informed prior to exposure. There were no significant changes in MEPs during surgery. EMG Neurotonic discharges were recorded in bilateral abductor hallucis, as well as right tibialis anterior, peroneus longus and medial gastrocnemius. Surgeon was notified of these findings when recorded. I provided exclusive direct professional oversight for the entirety of the surgery without providing oversight for other concurrent surgical monitoring or performing other direct patient care activities. Real-time neurophysiologic data was available for me to view and interrogate contemporaneously. Throughout monitoring, there were provisions for continuous and immediate communication directly with the operating room team in the surgical suite. CLINICAL INTERPRETATION: I have reviewed the findings of the examining physician and agree with the interpretation. Letty Ochoa/Bebe Schumacher (127 or [phone])/[facility] Surgery Staff Minutes Start-DateTime End-DateTime Remote Exclusive (1:1) Supervision [phone] 08/31/2022 08:47 AM OUTREACH DIRECTOR 08/31/2022 15:07 PM OUTREACH DIRECTOR Total Monitoring Time: 380 This interpretation has been electronically signed: Kimani Schumacher M.D. at 08/31/2022 3:22:31 PM CDT Procedure Note Kimani Schumacher M.D. - 08/31/2022 31-Aug-2022 Intraoperative Monitoring AmendedReport Study Number: 1 EMG Milling Machine Operator: Kimani Schumacher . 127 or [phone] Referred by: FREDERICK ZHENG (127 or [phone]) Referred for: Referral Code: 1958 RX: 1958 SUMMARY: Somatosensory evoked potentials (SEPs), transcranial electricmotor evoked potentials (MEPs), and free running needle electromyography (EMG) were monitoredduring L3- S1 posterior lumbar fusion. All stimulation and recording was performed with needleelectrodes. Ulnar and tibial nerves were stimulated for SEPs. MEPs were recorded from thefollowing muscles bilaterally: abductor digiti minimi, adductor longus, vastus lateralis, tibialisanterior, peroneus longus, medial gastrocnemius, abductor hallucis. Free running EMG was recordedfrom all lower limb muscles mentioned above. Four twitches were present on train of four (TOF) fromall four limbs during baseline MEP recordings and after exposure was completed prior toresumption of MEP and EMG monitoring. SEP Reliable cortical SEPs were recorded at baseline from all four limbs in the supine position; the surgeon was informed prior to exposure. Therewere no significant changes in cortical SEP amplitudes during surgery. MEP Reliable MEPs were recorded at baseline from all muscles in the supine position; the surgeon was informedprior to exposure. There were no significant changes in MEPs during surgery. EMG Neurotonic discharges were recorded in bilateral abductor hallucis, as well as right tibialisanterior, peroneus longus and medial gastrocnemius. Surgeon was notified of these findings whenrecorded. I provided exclusive direct professional oversight for the entirety of thesurgery without providing oversight for other concurrent surgical monitoring or performing otherdirect patient care activities. Real-time neurophysiologic data was available for me to viewand interrogate contemporaneously. Throughout monitoring, there were provisions forcontinuous and immediate communication directly with the operating room team in the surgicalsuite. CLINICAL INTERPRETATION: I have reviewed the findings of the examining physician and agree with the interpretation. Letty Ochoa/Bebe Schumacher (127 or [phone])/[facility] Surgery Staff Minutes Start-DateTime End-DateTime Remote Exclusive (1:1) Supervision [phone] 08/31/2022 08:47 AM OUTREACH DIRECTOR 5:07 PM OUTREACH DIRECTOR Total Monitoring Time: 380 This interpretation has been electronically signed: Kimani Schumacher M.D. at 08/31/2022 3:22:31 PM CDT Frederick Zheng M.D. NEUROLOGY ORDERABLES Edited R esult - Final EMG documented in this encounter Visit Diagnoses Diagnosis Stenosis Spinal- Primary Stenosis Spinal Spinal Stenosis Lumbar Region Without Neurogenic Claudication Decline Functional Status [R53.81 (ICD-10-CM)] Spinal Stenosis Lumbar Region Without Neurogenic Claudication Stenosis Spinal documented in this encounter Admitting Diagnoses Diagnosis Stenosis Spinal Spinal Stenosis Lumbar Region Without Neurogenic Claudication documented in this encounter Administered Medications Inactive Administered Medications - up to 3 most recent administrations Medication Order MAR Action Action Date Dose Rate Site acetaminophen injection 1,000 mg 1,000 mg, intravenous, at 400 mL/hr, Administer over 15 Minutes, Once as needed, other, If patient has not received in previous 6 hours, Starting on Mon08/31/22 at 1621, For 1 dose, PACU (only), Oral unless RASS less than -1 or nausea/vomiting. Do not use if given in last 6 hours, Restriction Criteria (Pharmacy will review and approve if criteria met): Unable to take or tolerate medications administered via the enteral route or orally (not just NPO) New Bag 08/31/2022 4:21 PM CDT 1,000 mg 400 mL/hr acetaminophen tablet 1,000 mg (TYLENOL) 1,000 mg, oral, Every 6 hours, First dose on Mon08/31/22 at 2200, For 3 days, If patient tolerating oral fluids or has a gastric tube, discontinue injectable opioid and begin this order. Given 09/02/2022 9:18 PM CDT 1,000 mg Given 09/02/2022 3:16 PM CDT 1,000 mg Given 09/02/2022 10:32 AM CDT 1,000 mg acetaminophen tablet 1,000 mg (TYLENOL) 1,000 mg, oral, Every 6 hours PRN, moderate pain or score 4-6 of 10, Starting on [facility] 09/03/22 at 0307 Given 09/04/2022 11:49 AM CDT 1,000 mg Given 09/04/2022 3:46 AM CDT 1,000 mg Given 09/03/2022 9:48 PM CDT 1,000 mg allopurinol tablet 150 mg (ZYLOPRIM) 150 mg, oral, Daily, First dose on [place] 09/01/22 at 0900 Given 09/04/2022 8:06 AM CDT 150 mg Given 09/03/2022 8:26 AM CDT 150 mg Given 09/02/2022 8:22 AM CDT 150 mg atorvastatin tablet 20 mg (LIPITOR) 20 mg, oral, Daily, First dose (after last modification) on [place] 09/01/22 at 0900 Given 09/04/2022 8:06 AM CDT 20 mg Given 09/03/2022 8:26 AM CDT 20 mg Given 09/02/2022 8:22 AM CDT 20 mg bisacodyL suppository 10 mg (DULCOLAX) 10 mg, rectal, Daily PRN, constipation, Starting on Mon08/31/22 at 1758 buPROPion XL 24 hr tablet 150 mg (WELLBUTRIN XL) 150 mg, oral, Daily, First dose on [place] 09/01/22 at 0900, Swallow whole. Do NOT crush, chew, or split tablet. Given 09/04/2022 8:06 AM CDT 150 mg Given 09/03/2022 8:26 AM CDT 150 mg Given 09/02/2022 8:23 AM CDT 150 mg calcium carbonate chewable tablet 400 mg of calcium (TUMS) 400 mg of calcium, oral, Every 4 hours PRN, heartburn, indigestion, Starting on Mon08/31/22 at 1758, Doses listed are in mg of elemental calcium. Take with food. 500 mg calcium carbonate contains 200 mg of elemental calcium. carvediloL tablet 6.25 mg (COREG) 6.25 mg, oral, 2 times daily with meals, First dose on [facility] 09/03/22 at 2230 Given 09/04/2022 8:06 AM CDT 6.25 mg Given 09/03/2022 10:33 PM CDT 6.25 mg ceFAZolin in dextrose (iso osm) IVPB 2 g (ANCEF) 2 g, intravenous, at 200 mL/hr, Administer over 30 Minutes, Every 8 hours, First dose on [place] 09/01/22 at 0000, Start within 8 hours of last IV dose., Drug Monitoring Program: Pharmacist to adjust medication dosing based on indication and drug clearance factors., Indications: Prophylaxis, surgicalIndications:Prophylaxis, surgical New Bag 09/04/2022 8:11 AM CDT 2 g 200 mL/hr New Bag 09/03/2022 11:00 PM CDT 2 g 200 mL/hr New Bag 09/03/2022 6:22 PM CDT 2 g 200 mL/hr fentaNYL injection 25 mcg (SUBLIMAZE) 25 mcg, intravenous, Every 2 min PRN, For pain 4 or greater (maximum 100 mcg). If max dose of Fentanyl is reached and if pain is greater than 4, discontinue Fentanyl: give Hydromorphone, Starting on Mon08/31/22 at 0650, PACU (only) Given 08/31/2022 4:36 PM CDT 25 mcg Given 08/31/2022 4:18 PM CDT 25 mcg gabapentin capsule 300 mg (NEURONTIN) 300 mg, oral, 3 times daily, First dose on Mon08/31/22 at 2100 Given 09/04/2022 2:24 PM CDT 300 mg Given 09/04/2022 8:06 AM CDT 300 mg Given 09/03/2022 9:48 PM CDT 300 mg heparin (porcine) injection 5,000 Units 5,000 Units, subcutaneous, Every 8 hours scheduled, First dose (after last modification) on Mon09/02/22 at 2200 Given 09/04/2022 2:25 PM CDT 5,000 Units Left Upper Arm (Back ) Given 09/04/2022 6:22 AM CDT 5,000 Units R ight Upper Arm (Back) Given 09/03/2022 9:50 PM CDT 5,000 Units L eft Upper Arm (Back) hydrALAZINE tablet 25 mg (APRESOLINE) 25 mg, oral, Every 6 hours PRN, Second-line (after labetalol): SBP >160 mmHg on two cuff readings taken >5 minutes apart; hold for HR >100 BPM., Starting on Mon08/31/22 at 1758 labetalol injection 10 mg (NORMODYNE,TRANDATE) 10 mg, intravenous, Every 4 hours PRN, high blood pressure, see admin instructions, Starting on Mon08/31/22 at 1758, Do not give if heart rate is less than 60 bpm. Keep systolic blood pressure less than 160 mmHg. Notify prescriber if systolic blood pressure remains greater than indicated limit after 3 doses. lactated ringers 75 mL/hr, intravenous, Continuous, Starting on Mon08/31/22 at 1030, PACU & Post-Op Rate/Dose Verify 09/01/2022 10:00 AM CDT 75 mL/hr 75 mL/hr New Bag 09/01/2022 7:40 AM CDT 75 mL/hr 75 mL/hr lactated ringers 80 mL/hr, intravenous, Continuous, Starting on Mon08/31/22 at 1800, For 12 hours New Bag 08/31/2022 6:17 PM CDT 80 mL/hr 80 mL/hr menthol lozenge 1 lozenge 1 lozenge, oral, As needed, sore throat, throat irritation, Starting on Mon08/31/22 at 1758 NaCl 0.9% infusion 20-500 mL/hr, intravenous, Once as needed, Between Units of Blood Products, Starting on Mon09/04/22 at 0846, For 1 dose, Infuse at the same rate as the blood infusion until tubing cleared. Nurse may reduce rate to 20 mL/hour or as otherwise directed until next blood infusion arrives then discontinue when infusion complete. naloxone injection 0.2 mg (NARCAN) 0.2 mg, intravenous, As needed, respiratory depression, Starting on Mon08/31/22 at 1758, For RASS Score -4 or less, respiratory rate of less than 8 breaths/min. Notify provider/service and rapid response team (if available at institution). ondansetron (PF) injection 4 mg (ZOFRAN) 4 mg, intravenous, Every 6 hours PRN, nausea, vomiting, Starting on Mon08/31/22 at 1758, For 48 hours, Reassess for nausea or vomiting after at least 10 minutes. If nausea or vomiting persists administer next ordered antiemetic medications (order for antiemetic medication administration ondansetron then haloperidol then prochlorperazine). Given 09/01/2022 1:54 PM CDT 4 mg oxyCODONE IR tablet 2.5 mg (ROXICODONE) 2.5 mg, oral, Every 4 hours PRN, moderate pain or score 4-6 of 10, Starting on Mon09/03/22 at 0900 oxyCODONE IR tablet 5 mg (ROXICODONE) 5 mg, oral, Every 4 hours PRN, moderate pain or score 4-6 of 10, Starting on Mon08/31/22 at 1758 Given 09/03/2022 5:10 AM CDT 5 mg Given 09/03/2022 12:58 AM CDT 5 mg Given 09/02/2022 8:29 PM CDT 5 mg oxyCODONE IR tablet 5 mg (ROXICODONE) 5 mg, oral, Every 4 hours PRN, severe pain or score 7-10 of 10, or for pain greater than comfort goal, Starting on 09/03/22 at 0900 Given 09/04/2022 2:24 PM CDT 5 mg Given 09/04/2022 10:34 AM CDT 5 mg Given 09/04/2022 6:22 AM CDT [address] tablet 40 mg (PROTONIX) 40 mg, oral, Daily before morning meal, First dose on Mon09/01/22 at 0700, Swallow whole. Do NOT crush, chew, or split tablet. Given 09/04/2022 6:22 AM CDT 40 mg Given 09/03/2022 6:08 AM CDT 40 mg Given 09/02/2022 6:07 AM CDT 40 mg polyethylene glycol powder packet 17 g (MIRALAX) 17 g, oral, Daily, First dose on Mon09/01/22 at 0900, Ordered sequence of administration: polyethylene glycol, then bisacodyl until BM achieved. Avoid mixing with starch-based thickened liquids., Indications: constipationIndications:constipation Given 09/02/2022 8:23 AM CDT 17 g Given 09/01/2022 1:15 PM CDT 17 g rivaroxaban tablet 20 mg (XARELTO) 20 mg, oral, Daily with evening meal, First dose on Mon09/07/22 at 1700 sennosides-docusate sodium 8.6-50 mg per tablet 2 tablet (SENOKOT-S) 2 tablet, oral, 2 times daily, First dose on Mon08/31/22 at 2100, For constipation. Hold if diarrhea. Given 09/02/2022 8:28 PM CDT 2 tablets Given 09/02/2022 8:22 AM CDT 2 tablets Given 09/01/2022 9:58 PM CDT 2 tablets sodium chloride tablet 2 g 2 g, oral, 3 times daily with meals, First dose on Mon09/01/22 at 1300 Given 09/04/2022 11:49 AM CDT 2 g Given 09/04/2022 8:06 AM CDT 2 g Given 09/03/2022 6:21 PM CDT 2 g documented in this encounter Active and Recently Administered Medications Times are shown in CDT. Scheduled Medication Order 09/02/2022 09/03/2022 09/04/2022 acetaminophen tablet 1,000 mg (TYLENOL) (COMPLETED) 1,000 mg, oral, Every 6 hours, First dose on Mon08/31/22 at 2200, For 3 days, If patient tolerating oral fluids or has a gastric tube, discontinue injectable opioid and begin this order. 0422 (Given - Provider: Mustapha Campos R.N.)9580 (Given - Provider: Armani Roman R.N.)1516 (Given - Provider: Cindy Vicente R.N.)2118 (Given - Provider: Cindy Vicente R.N.) allopurinol tablet 150 mg (ZYLOPRIM) 150 mg, oral, Daily, First dose on [place] 09/01/22 at 0900 0822 (Given - Provider: Armani Roman R.N.) 0826 (Given - Provider: Kylah Goff R.N.) 0806 (Given - Provider: Terrie Pleitez R.N.) atorvastatin tablet 20 mg (LIPITOR) 20 mg, oral, Daily, First dose (after last modification) on [place] 09/01/22 at 0900 0822 (Given - Provider: Armani Roman R.N.) 0826 (Given - Provider: Kylah Goff R.N.) 0806 (Given - Provider: Terrie Pleitez R.N.) buPROPion XL 24 hr tablet 150 mg (WELLBUTRIN XL) 150 mg, oral, Daily, First dose on [place] 09/01/22 at 0900, Swallow whole. Do NOT crush, chew, or split tablet. 0823 (Given - Provider: Armani Roman R.N.) 0826 (Given - Provider: Kylah Goff R.N.) 0806 (Given - Provider: Terrie Pleitez R.N.) carvediloL tablet 6.25 mg (COREG) 6.25 mg, oral, 2 times daily with meals, First dose on [facility] 09/03/22 at 2230 2233 (Given - Provider: Tamela Vogt) 0806 (Given - Provider: Terrie Pleitez R.N.) ceFAZolin in dextrose (iso osm) IVPB 2 g (ANCEF) 2 g, intravenous, at 200 mL/hr, Administer over 30 Minutes, Every 8 hours, First dose on [place] 09/01/22 at 0000, Start within 8 hours of last IV dose., Drug Monitoring Program: Pharmacist to adjust medication dosing based on indication and drug clearance factors., Indications: Prophylaxis, surgical 0000 (New Bag - Provider: Mustapha Campos R.N.)0823 (New Bag - Provider: Armani Roman R.N.)1517 (New Bag - Provider: Cindy Vicente R.N.) 0018 (New Bag - Provider: Debbie Acosta R.N.)0829 (New Bag - Provider: Kylah Goff R.N.)1822 (New Bag - Provider: Kylah Goff R.N.)2300 (New Bag - Provider: Tamela Vogt) 0811 (New Bag - Provider: Terrie Pleitez R.N.) gabapentin capsule 300 mg (NEURONTIN) 300 mg, oral, 3 times daily, First dose on Mon08/31/22 at 2100 0823 (Given - Provider: Armani Roman R.N.)1516 (Given - Provider: Cindy Vicente R.N.)2029 (Given - Provider: Cindy Vicente R.N.) 0826 (Given - Provider: Kylah Goff R.N.)1422 (Given - Provider: Kylah Goff R.N.)2148 (Given - Provider: Tamela Vogt) 0806 (Given - Provider: Terrie Pleitez R.N.)1424 (Given - Provider: Terrie Pleitez R.N.) heparin (porcine) injection 5,000 Units 5,000 Units, subcutaneous, Every 8 hours scheduled, First dose (after last modification) on Mon09/02/22 at 2200 2117 (Given - Provider: Cindy Vicente R.N.) 0510 (Given - Provider: Debbie Acosta R.N.)1422 (Given - Provider: Kylah Goff R.N.)2150 (Given - Provider: Tamela Vogt) 0622 (Given - Provider: Tamela Vogt)1425 (Given - Provider: Terrie Pleitez R.N.) pantoprazole DR tablet 40 mg (PROTONIX) 40 mg, oral, Daily before morning meal, First dose on Mon09/01/22 at 0700, Swallow whole. Do NOT crush, chew, or split tablet. 0607 (Given - Provider: Kathy JonesN.) 0608 (Given - Provider: Debbie Acosta R.N.) 0622 (Given - Provider: Tamela Vogt) polyethylene glycol powder packet 17 g (MIRALAX) 17 g, oral, Daily, First dose on Mon09/01/22 at 0900, Ordered sequence of administration: polyethylene glycol, then bisacodyl until BM achieved. Avoid mixing with starch-based thickened liquids., Indications: constipation 0823 (Given - Provider: Armani Roman R.N.) 0841 (Not Given - Provider: Kylah Goff R.N. - Reason: Patient/family refused) 0808 (Not Given - Provider: Terrie Pleitez R.N. - Reason: Patient/family refused - Comment: 09/04) rivaroxaban tablet 20 mg (XARELTO) 20 mg, oral, Daily with evening meal, First dose on Mon09/07/22 at 1700 sennosides-docusate sodium 8.6-50 mg per tablet 2 tablet (SENOKOT-S) 2 tablet, oral, 2 times daily, First dose on Mon08/31/22 at 2100, For constipation. Hold if diarrhea. 0822 (Given - Provider: Armani Roman R.N.)2028 (Given - Provider: Cindy Vicente R.N.) 0826 (Not Given - Provider: Kylah Goff R.N. - Reason: Patient/family refused)2200 (Not Given - Provider: Tamela Vogt - Reason: Patient/family refused) 0809 (Not Given - Provider: Terrie Pleitez R.N. - Reason: Patient/family refused - Comment: 09/04) sodium chloride tablet 2 g 2 g, oral, 3 times daily with meals, First dose on Mon09/01/22 at 1300 0822 (Given - Provider: Armani Roman R.N.)1201 (Given - Provider: Armani Roman R.N.)1618 (Given - Provider: Cindy Vicente R.N.) 0826 (Given - Provider: Kylah Goff R.N.)1421 (Given - Provider: Kylah Goff R.N.)1821 (Given - Provider: Kylah Goff R.N.) 0806 (Given - Provider: Terrie Pleitez R.N.)1149 (Given - Provider: Terrie Pleitez R.N.) PRN Medication Order 09/02/2022 09/03/2022 09/04/2022 acetaminophen tablet 1,000 mg (TYLENOL) 1,000 mg, oral, Every 6 hours PRN, moderate pain or score 4-6 of 10, Starting on Mon09/03/22 at 0307 0317 (Given - Provider: Debbie Acosta R.N.)0826 (Given - Provider: yKlah Goff R.N.)1527 (Given - Provider: Rissa Miller R.N.)2148 (Given - Provider: Tamela Vogt) 0346 (Given - Provider: Tamela Vogt)1149 (Given - Provider: Terrie Pleitez R.N.) bisacodyL suppository 10 mg (DULCOLAX) 10 mg, rectal, Daily PRN, constipation, Starting on Mon08/31/22 at 1758 calcium carbonate chewable tablet 400 mg of calcium (TUMS) 400 mg of calcium, oral, Every 4 hours PRN, heartburn, indigestion, Starting on Mon08/31/22 at 1758, Doses listed are in mg of elemental calcium. Take with food. 500 mg calcium carbonate contains 200 mg of elemental calcium. hydrALAZINE tablet 25 mg (APRESOLINE) 25 mg, oral, Every 6 hours PRN, Second-line (after labetalol): SBP >160 mmHg on two cuff readings taken >5 minutes apart; hold for HR >100 BPM., Starting on Mon08/31/22 at 1758 labetalol injection 10 mg (NORMODYNE,TRANDATE) 10 mg, intravenous, Every 4 hours PRN, high blood pressure, see admin instructions, Starting on Mon08/31/22 at 1758, Do not give if heart rate is less than 60 bpm. Keep systolic blood pressure less than 160 mmHg. Notify prescriber if systolic blood pressure remains greater than indicated limit after 3 doses. menthol lozenge 1 lozenge 1 lozenge, oral, As needed, sore throat, throat irritation, Starting on Mon08/31/22 at 1758 NaCl 0.9% infusion 20-500 mL/hr, intravenous, Once as needed, Between Units of Blood Products, Starting on Mon09/04/22 at 0846, For 1 dose, Infuse at the same rate as the blood infusion until tubing cleared. Nurse may reduce rate to 20 mL/hour or as otherwise directed until next blood infusion arrives then discontinue when infusion complete. naloxone injection 0.2 mg (NARCAN) 0.2 mg, intravenous, As needed, respiratory depression, Starting on Mon08/31/22 at 1758, For RASS Score -4 or less, respiratory rate of less than 8 breaths/min. Notify provider/service and rapid response team (if available at institution). oxyCODONE IR tablet 2.5 mg (ROXICODONE)(Linked Group 1) 2.5 mg, oral, Every 4 hours PRN, moderate pain or score 4-6 of 10, Starting on Mon09/03/22 at 0900 0949 (See Alternative - Provider: Lauro Hoffman RSofia.)1422 (See Alternative - Provider: Kylah Goff RJose)1821 (See Alternative - Provider: Kylah Goff RSofia.)2234 (See Alternative - Provider: Tamela Vogt) 0216 (See Alternative - Provider: Tamela Vogt)0622 (See Alternative - Provider: Tamela Vogt)1034 (See Alternative - Provider: Marry De Guzman R.N.)1424 (See Alternative - Provider: Terrie Pleitez R.N.) oxyCODONE IR tablet 5 mg (ROXICODONE) (CANCELED) 5 mg, oral, Every 4 hours PRN, moderate pain or score 4-6 of 10, Starting on Mon08/31/22 at 1758 0208 (Given - Provider: Mustapha Campos R.N.)0607 (Given - Provider: Mustapha Campos R.N.)0822 (Given - Provider: Armani Roman R.N.)1200 (Given - Provider: Leonardo Jessie, R.N.)1610 (Given - Provider: Cindy Vicente R.N.)2029 (Given - Provider: Cindy Vicente R.N.) 0058 (Given - Provider: Debbie Acosta R.N.)0510 (Given - Provider: Debbie Acosta R.N.) oxyCODONE IR tablet 5 mg (ROXICODONE)(Linked Group 1) 5 mg, oral, Every 4 hours PRN, severe pain or score 7-10 of 10, or for pain greater than comfort goal, Starting on 09/03/22 at 0900 0949 (Given - Provider: Lauro Hoffman R.N.)1422 (Given - Provider: Kylah Goff R.N.)1821 (Given - Provider: Kylah Goff R.N.)2234 (Given - Provider: Tamela Vogt) 0216 (Given - Provider: Tamela Vogt)0622 (Given - Provider: Tamela Vogt)1034 (Given - Provider: Marry De Guzman R.N.)1424 (Given - Provider: Terrie Pleitez RHomeroN.) Linked Groups Order Group 1: oxyCODONE IR tablet 2.5 mg (ROXICODONE)Jump to med 2.5 mg, oral, Every 4 hours PRN, moderate pain or score 4-6 of 10, Starting on 09/03/22 at 0900 Or oxyCODONE IR tablet 5 mg (ROXICODONE)Jump to med 5 mg, oral, Every 4 hours PRN, severe pain or score 7-10 of 10, or for pain greater than comfort goal, Starting on 09/03/22 at 0900 documented in this encounter Care Teams Supervisor Drawing Relationship Specialty Start Date End Date Elsewhere, Pcp PCP - General Internal Medicine 05/10/22 documented as of this encounter
--- OUTSIDE RECORDS SUMMARY | 2024-05-21 14:10 | XMS_ITS | Encounter Summary ---
Author Organization [facility] Address [address] [place] [address] Care Team Providers Care Pulmonology Technician Name Role Phone Elsewhere, Pcp Primary Care Provider Unavailabl e Encounter Details Date Type Department Care Team (Late st Contact Info) Description 08/31/2022 8:05 AM CDT Anesthesia Event RST ROMB MAIN OR [address] [place] [phone] Álvaro Mandujano M.D. [address] [place] [phone] Kayla Rolon M.D. [address] [place] [phone] Anesthesia Record Procedure Summary Procedure Name Responsible Anesthesiologist Anesthesia Start Time Anesthesia Stop Time L3-S1 Fusion, TLIF at L3/4, L4/5. (Spine Lumbar) Álvaro Mandujano M.D. 08/31/22 0805 08/31/22 1617 Events Date Time Event Comment 08/31/2022 0805 An Start Machine/Equipme nt Checked Infection Precautions Followed Procedure/Site Verified NPO Status Verified Supine Standard ASA Monitors Applied 0813 An Induction 0820 An Intubation 0840 Turnover to Proceduralist 0853 Francisco On 0935 Proc Start 1120 Lab Drawn 1138 Quick Note TOF >.9 via the monitoring battery technician. Reversal is not needed. 1200 Quick Note OR temp increas ed 1206 Quick Note O arm spin comp lete 1542 Proc Fin 1554 Francisco Off 1555 Turnover to ANE Staff 1559 Airway Removal Criteria Met 1559 Extubation/Airway Removed 1600 an stop data 1617 An End I completed my handoff to [...] Meds Name Total fentanyl injection 50 mcg/mL 100 mcg lidocaine 2% (mg) injection 40 mg propofol 10 mg/mL 275 mg propofol 10 mg/mL infusion 2,698.95 mg succinylcholine 20 mg/mL injection 80 mg ondansetron 4 mg/2 mL injection 4 mg SUFentanil 5 mcg/mL in NaCl 0.9% 100 mL infusion (SUFENTA) 120.84 mcg phenylephrine 20 mg/250 mL infusion 12 m g ketamine 10 mg/mL injection 50 mg ceFAZolin injection 2,000 mg (ANCEF) 6 g rocuronium 10 mg/mL injection 30 mg albumin human bottle 5% 500 mL phenylephrine bolus from bag 600 mcg tranexamic acid 1,150 mg in NaCl 0.9% IV PB 1,150 mg tranexamic acid 8 mg/mL in NaCl 0.9% 250 mL infusion (CYKLOKAPRON) 752.4 mg calcium gluconate 100 mg/mL (10%) inject ion 5,000 mg Lactated Ringers Free Drip 1,900 mL lactated ringers free drip 1,200 mL NaCl 0.9 % free drip 480 mL * Agents No agents on file. * Blood Name Total RED BLOOD CELLS 990 mL PLATELETS 193 mL CRYOPRECIPITATE 290 mL Lines, Drains, and Airways Type Details Placement Removal Wound 08/31/22; 1429; N; Incision; Spine; Lower, Medial 08/31/22 1429 by Nisreen Mays R.N., C.W.O.C.N. Peripheral IV Placement Date: 08/20 07/14; Placement Time: 0735; Catheter Size: 20 G; Orientation: Anterior, Left, Lower; Location: Forearm; Site Prep: Chlorhexidine (Preferred); Technique: Anatomical landmarks (2); Inserted by: LUISW; Insertion Attempts: 1; Removal Date: 09/04/22; Removal Time: 1110; Removal Reason: Occluded 08/31/22 0735 by Christina Sandoval 09/04/22 1110 by Yuli Lafleur RHomeroNHomero ETT Placement Date: 08/20 07/14; Placement Time: 0820 (created via procedure documentation); Mask Ventilation: Oral/Nasal airway needed; Type: Standard ETT; Single Lumen Tube Size: 7 mm; Cuffed: Yes; Location: Oral; Grade View: Grade 2A; Insertion Attempts: 1; Placement Verification: Bilateral breath sounds, Positive ETCO2, Symmetrical chest wall movement; Removal Date: 08/31/22; Removal Time: 1559 08/31/22 0820 by Kamryn Meek APRN, CRNA, DNAP 08/31/22 1559 by Smooth Goff APRN, PHOTOGRAPHY PROFESSOR Arterial Line Placement Date: 08/20 07/14; Placemnt Time: 0830 (created via procedure documentation); Size: 20 G; Orientation: Right; Location: Radial; Site Prep: Chlorhexidine (Preferred); Technique: Anatomical landmarks; Insertion Attempts: 1; Securement: Securement dressing, Securement device; Removal Date: 08/31/22; Removal Time: 1700; Removal Reason: Per protocol 08/31/22 0830 by Kamryn Meek APRN, CRNA, DNAP 08/31/22 1700 by Taina Romero R.NHomero Peripheral IV Placement Date: 08/20 07/14; Placement Time: 0838; Catheter Size: 18 G; Orientation: Right; Location: Hand; Removal Date: 09/02/22; Removal Time: 2240; Removal Reason: Removed by patient 08/31/22 0838 by Kamryn Meek APRN, CRNA, DNAP 09/02/22 2240 by Cindy Vicente, R.NHomero Indwelling Urinary Catheter Placement Date: 08/31/22; Placement Time: 0848; Inserted by: heri; Type: Non-latex; Size: 16 Fr.; Balloon Size: 5 mL; Urine Returned: Yes; Removal Date: 09/01/22; Removal Time: 1213 08/31/22 0848 by Ursula Stovall R.N. 09/01/22 1213 by Puneet Blandon R.N. Closed/Suction Drain 08/31/22; 1428; 1; Inferior, Left; Back; Bulb; 10 Fr.; Per protocol; Chief C Service 08/31/22 1428 by Ursula Stovall R.N. 09/04/22 1130 by Terrie Pleitez R.N. Closed/Suction Drain 08/31/22; 1429; 2; Inferior, Right; Back; Bulb; 10 Fr.; Per protocol; Chief C Service 08/31/22 1429 by Ursula Stovall R.N. 09/04/22 1130 by Terrie Pleitez R.N. documented in this encounter Social History [...] week 08/15/2022 How often do you attend [facility] or gnosticist services? More than 4 [...] and heating? Not hard at all 08/15/2022 [facility] - Occupational [...] place to sleep or slept in a detention (including now)? No 08/15/2022 Nutrition Answer Date [...] Sex Assigned at Female 05/11/2022 7:48 AM LONG DISTANCE OPERATOR Legal Sex Female 9:30 PM LONG DISTANCE OPERATOR Gender Identity Female 05/11/2022 7:48 AM LONG DISTANCE OPERATOR Sexual Orientation Straight 05/11/2022 7: 48 AM LONG DISTANCE OPERATOR documented as of this encounter OR Notes * Anesthesia Postprocedure Evaluation - Bandar Lee M.D. - 08/31/2022 5:13 PM CDT Patient: Gladys Zamarripa Procedure Summary Date: 08/31/22 Room / Location: [address] 01 808 / [facility] in [place], [place] Anesthesia Start: 0805 Anesthesia Stop: 161 Procedure: L3-S1 Fusion, TLIF at L3/4, L4/5. (Spine Lumbar) Diagnosis: Stenosis Spinal (Stenosis Spinal [M48.00].) Providers: Matt Zheng M.D. Responsible Provider: Álvaro Mandujano M.D. Anesthesia Type: general ASA Status: 2 Anesthesia Type: general Last vitals Vitals Value Taken Time BP 121/85 08/31/22 1700 Temp 36.6 ??C 08/31/22 1700 Pulse 96 08/31/22 1713 Resp 11 08/31/22 1713 SpO2 99 % 08/31/221712 Vitals shown include unvalidated device data. Please reference Vitals flowsheet for most recent vital signs. Anesthesia Post Evaluation Patient Disposition: general care unit Cardiovascular status: hemodynamics (HR & BP) acceptable Respiratory status: patent airway with spontaneous effort Temperature: normothermic Oxygen requirements: nasal cannula (2 L) Level of consciousness: awake Pain score: pain adequately controlled and/or at baseline Post Op nausea/vomiting: none Hydration status: euvolemic * Anesthesia Procedure Notes - Kamryn Meek APRN, CRNA, DNAP - 08/31/2022 8:45 AM CDTAssociated Order(s): Airway Airway Date/Time: 08/31/2022 8:20 AM Performed by: Kamryn Meek APRN, CRNA, DNAP Authorized by: Kayla Rolon M.D. Patient location during procedure: OR / Procedure Area PROCEDURE DETAILS: Mask difficulty assessment: oral/nasal airway needed Final airway type: video laryngoscope Laryngeal Manipulation: no Final best view of glottic structures - Cormack/Lehane Score: grade 2A ETT location: oral VL device: glide scope Cove scope blade size: 3 Adult tube size: 7 Adult ETT distance at teeth/gum: 22 Oral tube type: standard ETT Cuffed: yes [...] anesthesia POST PROCEDURE DETAILS: Procedure outcome: successful Airway event: no complications * Anesthesia Procedure Notes - Kamryn Meek APRN, CRNA, DNAP - 08/31/2022 8:37 AM CDTAssociated Order(s): Invasive Catheter Invasive Catheter Date/Time: 08/31/2022 8:30 AM Performed by: Kamryn Meek APRN, CRNA, DNAP Authorized by: Kayla Rolon M.D. Location: OR PROCEDURE DETAILS: Line type: arterial Laterality: right Location: radial Location details: new site Age [...] and under catheter with slight turn: yes Complications - arterial: none * Anesthesia Preprocedure Evaluation - Kayla Rolon M.D. - 08/31/2022 7:30 AM CDT Preprocedure Anesthesia & H&P Assessment Procedure Summary Date/Time: 08/31/22814 Procedure: L3-S1 Fusion, TLIF at L3/4, L4/5. (Spine Lumbar) Diagnosis: Stenosis Spinal [M48.00] Pre-op diagnosis: Stenosis Spinal [M48.00]. Location: [address] 01 808 / [facility] in [place], [place] Providers: Matt Zheng M.D. Pertinent components of the patient's history including current problem list, medical history, surgical history, family history, social history, medications and allergies were reviewed. Present illness and pre-op diagnosis were confirmed. The planned surgery / procedure was verified with the patient / legal guardian. The patient's general health condition remains unchanged (See Linked H&P) RELEVANT COMORBID CONDITIONS CV (+) Atrial Fibrillation Paroxysmal (HCC) (+) Hypertension Essential Primary PSYCH (+) Depression Major Recurrent (HCC) GI (+) Gastroesophageal Reflux Disease Without Esophagitis HEME (+) Anemia (+) Anemia Of Chronic Disease Other (+) Spinal Stenosis Lumbar Region Without Neurogenic Claudication (+) Stenosis Spinal OBJECTIVE PHYSICAL EXAMINATION Airway (HEENT) Mallampati: III TM Distance: >3 FB Neck ROM: Full Mouth Opening: >3 cm Cardiovascular Functional Capacity: >4 METS Pulmonary Pulmonary Assessment: Non labored General / Constitutional Constitutional Assessment: Thin General State of Health:: calm Neurological Neurologic Assessment:??alert ASSESSMENT / PLAN ANESTHESIA PLAN ASA: 2 Anesthesia Plan: general 72F for L3-S1 TLIF No anesthetic complications Lumbar stenosis, took gabapentin today HTN, AF s/p ablation has not had recurrence, took coreg today, xarelto 1wk ago, did not take lisinopril or spironolactone today Discussed GA, risk for postop intubation and blindness Patient seen and allergies reviewed, anesthesia plan and risks discussed directly with patient /legal guardian or through an translator and interpreter. Risks/Benefits/Alternatives of Blood transfusion discussed with patient [...] (Latest Contact Info) Description 05/29/2024 12:15 PM LONG DISTANCE OPERATOR Clinical Communication Virtual Review in [place], [place] [address] [place] [phone] 05/31/2024 11:00 AM LONG DISTANCE OPERATOR Appointment Department of Laboratory Medicine and Pathology, [facility], in [address] [phone] Patricia Parker APRN, C.N.P., D.N.P. [address] [place] [phone] 05/31/2024 2:00 PM LONG DISTANCE OPERATOR Comprehensive Visit Preoperative Evaluation Center in [place], [place] [address] [place] [phone] Arianna Jeffries M.D. [address] [place] [phone] 05/31/2024 2:45 PM LONG DISTANCE OPERATOR Comprehensive Visit Preoperative Evaluation Center in [place], [place] [address] [place] [phone] Chris Moreno, JOHNSON, C.N.P., M.S. [address] [place] [phone] 06/03/2024 8:15 AM LONG DISTANCE OPERATOR Hospital Encounter Post Anesthesia Care Unit in [place], [place] [address] [place] [phone] Tahir Moore M.D. [address] [place] [phone] 06/03/2024 8:15 AM LONG DISTANCE OPERATOR - 06/03/2024 2:12 PM LONG DISTANCE OPERATOR Surgery RST ROMB MAIN OR [address] [place] [phone] Tahir Moore M.D. [address] [place] [phone] C1-2 fusion 07/02/2024 11:00 AM LONG DISTANCE OPERATOR Procedure visit Division of Pain Medicine in [place], [place] [address] [place] [phone] Adam Barlow M.D. [address] [place] [phone] Scheduled Procedures Name Priority Associated Diagnoses Date/Ti me 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 06/03/2024 8:15 AM LONG DISTANCE OPERATOR documented as of this encounter Procedures Procedure Name Priority Date/Time Associated Diagnosis Comments LDA ANE ARTERIAL LINE INSERTION Routine 08/31/2022 8:30 AM CDT SC ARTL CATH/CNULA MONITOR PERC Routine 08/31/2022 8:30 AM CDT LDA ANE ENDOTRACHEAL AIRWAY Routine 08/31/2022 8:20 AM CDT documented in this encounter Results * SC ARTL CATH/CNULA MONITOR PERC, LDA ANE ARTERIAL LINE INSERTION (08/31/2022 8:30 AM CDT) Narrative Kamryn Meek APRN, CRNA, DNAP - 08/31/2022 8:30 AM CDT Kamryn Meek APRN, CRNA, DNAP 08/31/2022 8:38 AM Invasive Catheter Date/Time: 08/31/2022 8:30 AM Performed by: Kamryn Meek APRN, CRNA, DNAP Authorized by: Kayla Rolon M.D. Location: OR PROCEDURE DETAILS: Line type: arterial Laterality: right Location: radial Location details: new site Age [...] and under catheter with slight turn: yes Complications - arterial: none Kayla Rolon M.D. PROCEDURE/MINOR SURGICAL ORD ERABLES Final Result * LDA ANE ENDOTRACHEAL AIRWAY (08/31/2022 8:20 AM CDT) Narrative Kamryn Meek APRN, CRNA, DNAP - 08/31/2022 8:20 AM CDT Kamryn Meek APRN, CRNA, DNAP 08/31/2022 8:46 AM Airway Date/Time: 08/31/2022 8:20 AM Performed by: Kamryn Meek APRN, CRNA, DNAP Authorized by: Kayla Rolon M.D. Patient location during procedure: OR / Procedure Area PROCEDURE DETAILS: Mask difficulty assessment: oral/nasal airway needed Final airway type: video laryngoscope Laryngeal Manipulation: no Final best view of glottic structures - Cormack/Lehane Score: grade 2A ETT location: oral VL device: glide scope Cove scope blade size: 3 Adult tube size: 7 Adult ETT distance at teeth/gum: 22 Oral tube type: standard ETT Cuffed: yes [...] anesthesia POST PROCEDURE DETAILS: Procedure outcome: successful Airway event: no complications Kayla Rolon M.D. ANESTHESIA ORDERABLES Final Result documented in this encounter Visit Diagnoses Not on filedocumented in this encounter Administered Medications Inactive Administered Medications - up to 3 most recent administrations Medication Order MAR Action Action Date Dose Rate Site albumin human 5 % injection intravenous, As needed, Starting on Mon08/31/22 at 1100, Anesthesia Intra-op Given 08/31/2022 11:57 AM CDT 250 mL Given 08/31/2022 11:00 AM CDT 250 mL calcium gluconate injection intravenous, As needed, Starting on Mon08/31/22 at 1347, Anesthesia Intra-op Given 08/31/2022 2:22 PM CDT 1 g Given 08/31/2022 2:13 PM CDT 1 g Given 08/31/2022 2:06 PM CDT 1 g ceFAZolin injection 2,000 mg (ANCEF) 2,000 mg (rounded from 1,430 mg = 25 mg/kg 57.2 kg), intravenous, Once, On Mon08/31/22 at 0715, For 1 dose, Intra-Op, Administer within 1 hour prior to surgical incision If needed, reconstitute vial per package insert instructions. See IVAG for administration guidelines. , Drug Monitoring Program: Pharmacist to adjust medication dosing based on indication and drug clearance factors., Indications: Prophylaxis, surgicalIndications:Prophylaxis, surgical Given 08/31/2022 3:38 PM CDT 2 g Given 08/31/2022 12:30 PM CDT 2 g Given 08/31/2022 9:32 AM CDT 2 g fentaNYL injection (SUBLIMAZE) intravenous, As needed, Starting on Mon08/31/22 at 0813, Anesthesia Intra-op Given 08/31/2022 8:13 AM CDT 100 mcg ketamine injection (KETALAR) intravenous, As needed, Starting on Mon08/31/22 at 0826, Anesthesia Intra-op Given 08/31/2022 12:39 PM CDT 10 mg Given 08/31/2022 11:00 AM CDT 10 mg Given 08/31/2022 8:26 AM CDT 30 mg lactated ringers intravenous, Continuous Infusion: Per Instructions PRN, Starting on Mon08/31/22 at 0805, Anesthesia Intra-op New Bag 08/31/2022 10:32 AM CDT New Bag 08/31/2022 8:05 AM CDT lactated ringers intravenous, Continuous Infusion: Per Instructions PRN, Starting on Mon08/31/22 at 0855, Anesthesia Intra-op New Bag 08/31/2022 3:12 PM CDT Restarted 08/31/2022 1:43 PM CDT New Bag 08/31/2022 8:55 AM CDT lidocaine (PF) (cardiac) injection intravenous, As needed, Starting on Mon08/31/22 at 0818, Anesthesia Intra-op Given 08/31/2022 8:18 AM CDT 40 mg NaCl 0.9% infusion intravenous, Continuous Infusion: Per Instructions PRN, Starting on Mon08/31/22 at 1235, Anesthesia Intra-op New Bag 08/31/2022 2:28 PM CDT New Bag 08/31/2022 12:35 PM CDT ondansetron (PF) injection (ZOFRAN) intravenous, As needed, Starting on Mon08/31/22 at 1557, Anesthesia Intra-op Given 08/31/2022 3:57 PM CDT 4 mg phenylephrine 80 mcg/mL in NaCl 0.9% 250 mL infusion intravenous, Continuous Infusion: Per Instructions PRN, Starting on Mon08/31/22 at 0831, Anesthesia Intra-op Rate/Dose Change 08/31/2022 3:09 PM CDT 0.55 mcg/kg/min 23.513 mL/hr Rate/Dose Change 08/31/2022 2:37 PM CDT 0.4 mcg/kg/min 17. 1 mL/hr Rate/Dose Change 08/31/2022 2:06 PM CDT 0.45 mcg/kg/min 19 .238 mL/hr phenylephrine bolus from bag (TIGRE-SYNEPHRINE) intravenous, As needed, Starting on Mon08/31/22 at 1038, Anesthesia Intra-op Given 08/31/2022 1:45 PM CDT 100 mcg Given 08/31/2022 12:57 PM CDT 100 mcg Given 08/31/2022 12:37 PM CDT 50 mcg propofol 10 mg/mL infusion (DIPRIVAN) intravenous, Continuous Infusion: Per Instructions PRN, Starting on Mon08/31/22 at 0818, Anesthesia Intra-op Rate/Dose Change 08/31/2022 10:42 AM CDT 100 mcg/kg/min 34.2 mL/hr New Bag 08/31/2022 9:49 AM CDT 125 mcg/kg/min 42.75 mL/ hr Rate/Dose Change 08/31/2022 9:15 AM CDT 150 mcg/kg/min 51. 3 mL/hr propofoL injection (DIPRIVAN) intravenous, As needed, Starting on Mon08/31/22 at 0818, Anesthesia Intra-op Given 08/31/2022 3:02 PM CDT 25 mg Given 08/31/2022 8:49 AM CDT 50 mg Given 08/31/2022 8:31 AM CDT 50 mg rocuronium injection (ZEMURON) intravenous, As needed, Starting on Mon08/31/22 at 0938, Anesthesia Intra-op Given 08/31/2022 9:38 AM CDT 30 mg succinylcholine (PF) injection (ANECTINE) intravenous, As needed, Starting on Mon08/31/22 at 0818, Anesthesia Intra-op Given 08/31/2022 8:18 AM CDT 80 mg SUFentanil 5 mcg/mL in NaCl 0.9% 100 mL infusion (SUFENTA) 0.25-1 mcg/kg/hr 57.2 kg (2.86-11.44 mL/hr), intravenous, Continuous, Starting on Mon08/31/22 at 0700, Intra-Op, Titrate: Per Provider Rate/Dose Change 08/31/2022 10:02 AM CDT 0.25 mcg/kg/hr 2.86 mL/hr Rate/Dose Change 08/31/2022 9:47 AM CDT 0.4 mcg/kg/hr 4.57 6 mL/hr New Bag 08/31/2022 8:18 AM CDT 0.5 mcg/kg/hr 5.72 mL/hr tranexamic acid 1,150 mg in NaCl 0.9% IVPB 1,150 mg (rounded from 1,140 mg = 20 mg/kg 57 kg Dosing weight), intravenous, at 185 mL/hr, Administer over 20 Minutes, Once in surgery, OR use only, Starting on Mon08/31/22 at 1134, For 1 dose, Intra-Op New Bag 08/31/2022 12:21 PM CDT 1,150 mg tranexamic acid 8 mg/mL in NaCl 0.9% 250 mL infusion (CYKLOKAPRON) 4 mg/kg/hr 57 kg Dosing weight (28.5 mL/hr), intravenous, Continuous, Starting on Mon08/31/22 at 1145, Intra-Op, In OR until skin closure. Pharmacy to adjust infusion dose for renal function. New Bag 08/31/2022 12:37 PM CDT 4 mg/kg/hr 28.5 mL/hr Transfuse Platelets : Routine New Bag 08/31/2022 12:48 PM CDT Transfuse Pooled Cryoprecipitate: Routine New Bag 08/31/2022 1:20 PM CDT Transfuse Pooled Cryoprecipitate: Routine New Bag 08/31/2022 1:24 PM CDT Transfuse Red Blood Cells : Routine New Bag 08/31/2022 11:55 AM CDT Transfuse Red Blood Cells : Routine New Bag 08/31/2022 12:59 PM CDT Transfuse Red Blood Cells : Routine New Bag 08/31/2022 2:29 PM CDT documented in this encounter Care Teams Pulmonology Technician Relationship Specialty Start Date End Date Elsewhere, Pcp PCP - General Internal Medicine 05/10/22 documented as of this encounter
--- OUTSIDE RECORDS SUMMARY | 2024-05-21 14:10 | XMS_ITS | Encounter Summary ---
Author Organization [facility] Address [address] [place] [address] Care Team Providers Care Hvac Project Engineer Name Role Phone Elsewhere, Pcp Primary Care Provider Unavailabl e Reason for Referral * Outpatient (Routine) - Closed Specialty Diagnoses / Procedures Referred By Contac t Referred To Contact Neurological Surgery Reina Zamorano P.A.-C. [address] [place] [address] Phone: tel: fax: [facility] Referral ID Status Reason Start Date Expiration Date Visits Re quested Visits Authorized [id number] Closed 09/02/2022 09/01/2025 1 1 * Outpatient (Routine) - Closed Specialty Diagnoses / Procedures Referred By Contac t Referred To Contact Diagnoses Fusion Lumbar Spine Status Post Procedures DX Lumbar Spine 2-3 Views Reina Zamorano P.A.-C. [address] [place] [address] Phone: tel: fax: [facility] Referral ID Status Reason Start Date Expiration Date Visits Re quested Visits Authorized [id number] Closed 09/02/2022 09/02/2023 1 1 Encounter Details Date Type Department Care Team (Late st Contact Info) Description 09/02/2022 Orders Only Department of Neurologic Surgery in [place], [place] [address] [place] [address] Reina Zamorano P.A.-C. [address] [place] [address] Fusion Lumbar Spine Status Post (Primary Dx) [...] often do you attend chur ch or druze services? More than 4 times per year [...] and heating? Not hard at all 08/15/2022 [facility] [place] of Occupat ional Health - Occupational Stress [...] Sex Assigned at Female 05/11/2022 7:48 AM MEMORANDUM STATEMENT CLERK Legal Sex Female 9:30 PM MEMORANDUM STATEMENT CLERK Gender Identity Female 05/11/2022 7:48 AM MEMORANDUM STATEMENT CLERK Sexual Orientation Straight 05/11/2022 7: 48 AM MEMORANDUM STATEMENT CLERK documented as of this encounter Plan of Treatment Upcoming Encounters Date Type Department Care Team (Latest Contact Info) Description 05/29/2024 12:15 PM MEMORANDUM STATEMENT CLERK Clinical Communication Virtual Review in [place], [place] 200 [place] [address] 05/31/2024 11:00 AM MEMORANDUM STATEMENT CLERK Appointment Department of Laboratory Medicine and Pathology, [facility], in [address] [phone] Patricia Parker APRN, C.N.P., D.N.P. [address] [place] [phone] 05/31/2024 2:00 PM MEMORANDUM STATEMENT CLERK Comprehensive Visit Preoperative Evaluation Center in [place], [place] [address] [place] [phone] Arianna Jeffries M.D. [address] [place] [phone] 05/31/2024 2:45 PM MEMORANDUM STATEMENT CLERK Comprehensive Visit Preoperative Evaluation Center in [place], [place] [address] [place] [phone] Chris Moreno, JOHNSON, C.N.P., M.S. [address] [place] [phone] 06/03/2024 8:15 AM MEMORANDUM STATEMENT CLERK Hospital Encounter Post Anesthesia Care Unit in [place], [place] [address] [place] [address] [phone] Tahir Moore M.D. [address] [place] [phone] 06/03/2024 8:15 AM MEMORANDUM STATEMENT CLERK - 06/03/2024 2:12 PM MEMORANDUM STATEMENT CLERK Surgery [facility] MAIN OR [address] [place] [phone] Tahir Moore M.D. [address] [place] [phone] C1-2 fusion 07/02/2024 11:00 AM MEMORANDUM STATEMENT CLERK Procedure visit Division of Pain Medicine in [place], [place] [address] [place] [phone] Adam Barlow M.D. [address] [place] [phone] Scheduled Procedures Name Priority Associated Diagnoses Date/Ti me 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 06/03/2024 8:15 AM MEMORANDUM STATEMENT CLERK Scheduled Referrals Name Type Priority Associated Diagnoses Order Schedule Neurological Surgery Post Op (clinic) Outpatient Referral Routine Expected: 10/14/2022, Expires: 12/03/2023 documented as of this encounter Results * [...] calcifications. Surgical clips overlie the right proximalsacrum. us Reina Zamorano P.A.-C. IMG DIAGNOSTIC IMAGING PROCEDURES Final Result documented in this encounter Visit Diagnoses Diagnosis Fusion Lumbar Spine Status Post- Primary Fusion Lumbar Spine Status Post Stenosis Spinal documented in this encounter Care Teams Hvac Project Engineer Relationship Specialty Start Date End Date Elsewhere, Pcp PCP - General Internal Medicine 05/10/22 documented as of this encounter
--- OUTSIDE RECORDS SUMMARY | 2024-05-21 14:10 | XMS_ITS | Encounter Summary ---
Author Organization [facility] Address [address] [place] [address] Care Team Providers Care Turbo Operator Name Role Phone Elsewhere, Pcp Primary Care Provider Unavailabl e Encounter Details Date Type Department Care Team (Late st Contact Info) Description 09/08/2022 Clinical Communication Department of Neurologic Surgery in [place], [place] [address] [place] [phone] Stu Hahn M.D., M.B.A. Social History Tobacco Use Types Packs/Day Years [...] any clubs o r organizations such as yazidi groups, unions, fraternal or athletic groups, or [...] heating? Not hard at all 08/15/2022 [facility] of Occupat ional Health [...] Sex Assigned at Female 05/11/2022 7:[address] SCAN SPECIAL PROCEDURES TECHNOLOGIST Legal Sex Female 9:[address] SCAN SPECIAL PROCEDURES TECHNOLOGIST Gender Identity Female 05/11/2022 7:[address] SCAN SPECIAL PROCEDURES TECHNOLOGIST Sexual Orientation Straight 05/11/2022 7: [address] SCAN SPECIAL PROCEDURES TECHNOLOGIST documented as of this encounter Miscellaneous Notes * Telephone Encounter - Reina Zamorano P.A.-C. - 09/08/2022 2:06 PM CDT Discussed with the patient. She endorses intermittent pain along the right hip and under the right buttock, which is similar to her preoperative pain although less intense than before. She feels thatthe pain is impeding some mobility, but is able to walk around the house. She denies any change in her strength or sensation. She is utilizing oxycodone 2 times per day as well as Tylenol. Discussed that she may have intermittent flares of pain and recommended addition of Robaxin as well as icing 15-20 min 3-4 times per day. She otherwise recently saw her primary provider who noted she is healingwell and had no concerns about the incision. She otherwise will continue to monitor the situation and let us know if further concerns arise. * Telephone Encounter - Blanquita Sandoval - 09/08/2022 10:31 AM CDT Caller Name/Relationship to Patient: Self Auth on file: Yes. Date of service: 08/31/22 Provider/RN Name: Jovani Reason for Call: New Symptoms: What are the symptoms? Pain in R hip, upper leg and around to butt. Wondering if there's anything she should be doing to help this. How to contact back: Call: [phone] documented in this encounter Plan of Treatment Upcoming Encounters Date Type Department Care Team (Latest Contact Info) Description 05/29/2024 12:[address] SCAN SPECIAL PROCEDURES TECHNOLOGIST Clinical Communication Virtual Review in [place], [place] 200 [place] [phone] 05/31/2024 11:[address] SCAN SPECIAL PROCEDURES TECHNOLOGIST Appointment Department of Laboratory Medicine and Pathology, [facility], in [address] [phone] Patricia Parker APRN, C.N.P., D.N.P. [address] [place] [phone] 05/31/2024 2:[address] SCAN SPECIAL PROCEDURES TECHNOLOGIST Comprehensive Visit Preoperative [place] [phone] Arianna Jeffries M.D. [address] [place] [phone] 05/31/2024 2:[address] SCAN SPECIAL PROCEDURES TECHNOLOGIST Comprehensive Visit Preoperative Evaluation Center in [place], [place] [address] [place] [phone] Chris Moreno, JOHNSON, C.N.P., M.S. [address] [place] [phone] 06/03/2024 8:[address] SCAN SPECIAL PROCEDURES TECHNOLOGIST Hospital Encounter Post Anesthesia Care Unit in [place], [place] [address] [place] [phone] Tahir Moore M.D. [address] [place] [address] [phone] 06/03/2024 8:[address] SCAN SPECIAL PROCEDURES TECHNOLOGIST - 06/03/2024 2:[address] SCAN SPECIAL PROCEDURES TECHNOLOGIST Surgery [facility] ROM[facility] MAIN OR [address] [place] [phone] Tahir Moore M.D. [address] [place] [phone] C1-2 fusion 07/02/2024 11:[address] SCAN SPECIAL PROCEDURES TECHNOLOGIST Procedure visit Division of Pain Medicine in [place], [place] [address] [place] [address] [phone] Adam Barlow M.D. [address] [place] [address] [phone] Scheduled Procedures Name Priority Associated Diagnoses Date/Ti me 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 06/03/2024 8:[address] SCAN SPECIAL PROCEDURES TECHNOLOGIST documented as of this encounter Visit Diagnoses Not on filedocumented in this encounter Care Teams Turbo Operator Relationship Specialty Start Date End Date Elsewhere, Pcp PCP - General Internal Medicine 05/10/22 documented as of this encounter
--- OUTSIDE RECORDS SUMMARY | 2024-05-21 14:10 | XMS_ITS | Encounter Summary ---
Author Organization [facility] Address [address] [place] [address] Care Team Providers Care Import And Export Clerk Name Role Phone Elsewhere, Pcp Primary Care Provider Unavailabl e Encounter Details Date Type Department Care Team (Late st Contact Info) Description 08/31/2022 Orders Only Department of Neurologic Surgery in [place], [place] [address] [place] [phone] Armani Jimenez M.D., Ph.D. 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 Not hard at all 08/15/2022 [facility] [place] of Occupat ional Health - Occupational Stress [...] Sex Assigned at Female 05/11/2022 7:48 AM TANK CLEANING SUPERVISOR Legal Sex Female 9:30 PM TANK CLEANING SUPERVISOR Gender Identity Female 05/11/2022 7:48 AM TANK CLEANING SUPERVISOR Sexual Orientation Straight 05/11/2022 7: 48 AM TANK CLEANING SUPERVISOR documented as of this encounter Plan of Treatment Upcoming Encounters Date Type Department Care Team (Latest Contact Info) Description 05/29/2024 12:15 PM TANK CLEANING SUPERVISOR Clinical Communication Virtual Review in [place], [place] 200 [place] [phone] 05/31/2024 11:00 AM TANK CLEANING SUPERVISOR Appointment Department of Laboratory Medicine and Pathology, [facility], in [place], [place] [address] [place] [phone] Patricia Parker APRN, C.N.P., D.N.P. [address] [place] [address] [phone] 05/31/2024 2:00 PM TANK CLEANING SUPERVISOR Comprehensive Visit Preoperative Evaluation Center in [place], [place] [address] [place] [phone] Arianna Jeffries M.D. [address] [place] [phone] 05/31/2024 2:45 PM TANK CLEANING SUPERVISOR Comprehensive Visit Preoperative Evaluation Center in [place], [place] [address] [place] [address] [phone] Chris Moreno, JOHNSON, C.N.P., M.S. [address] [place] [address] [phone] 06/03/2024 8:15 AM TANK CLEANING SUPERVISOR Hospital Encounter Post Anesthesia Care Unit in [place] [address] [place] [address] [phone] Tahir Moore M.D. [address] [place] [phone] 06/03/2024 8:15 AM TANK CLEANING SUPERVISOR - 06/03/2024 2:12 PM TANK CLEANING SUPERVISOR Surgery [facility] MAIN OR [address] [place] [phone] Tahir Moore M.D. [address] [place] [phone] C1-2 fusion 07/02/2024 11:00 AM TANK CLEANING SUPERVISOR Procedure visit Division of Pain Medicine in [place], [place] [address] [place] [phone] Adam Barlow M.D. [address] [place] [phone] Scheduled Procedures Name Priority Associated Diagnoses Date/Ti me 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 06/03/2024 8:15 AM TANK CLEANING SUPERVISOR documented as of this encounter Visit Diagnoses Diagnosis Stenosis Spinal Lumbar With Neurogenic Claudication- Primary Stenosis Spinal documented in this encounter Care Teams Import And Export Clerk Relationship Specialty Start Date End Date Elsewhere, Pcp PCP - General Internal Medicine 05/10/22 documented as of this encounter
--- OUTSIDE RECORDS SUMMARY | 2024-05-21 14:10 | XMS_ITS | Encounter Summary ---
Author Organization [facility] Address [address] [place] [address] Care Team Providers Care Campaign Marketing Specialist Name Role Phone Elsewhere, Pcp Primary Care Provider Unavailabl e Encounter Details Date Type Department Care Team (Late st Contact Info) Description 09/08/2022 Orders Only Department of Neurologic Surgery in [place], [place] [address] [place] [phone] Reina Zamorano, PHomeroA.-C. [address] [place] [phone] Social History Tobacco Use Types Packs/Day Years [...] How often do you attend chur or catholic services? More than 4 times per [...] and heating? Not hard at all 08/15/2022 [facility] of Occupat ional Health - Occupational [...] Sex Assigned at Female 05/11/2022 7:48 AM LOGISTICS MANAGEMENT SPECIALIST Legal Sex Female 9:30 PM LOGISTICS MANAGEMENT SPECIALIST Gender Identity Female 05/11/2022 7:48 AM LOGISTICS MANAGEMENT SPECIALIST Sexual Orientation Straight 05/11/2022 7: 48 AM LOGISTICS MANAGEMENT SPECIALIST documented as of this encounter Plan of Treatment Upcoming Encounters Date Type Department Care Team (Latest Contact Info) Description 05/29/2024 12:15 PM LOGISTICS MANAGEMENT SPECIALIST Clinical Communication Virtual Review in [place], [place] [address] [place] [phone] 05/31/2024 11:00 AM LOGISTICS MANAGEMENT SPECIALIST Appointment Department of Laboratory Medicine and Pathology, [facility], in [place], [place] [address] [place] [phone] Patricia Parker APRN, C.N.P., D.N.P. [address] [place] [phone] 05/31/2024 2:00 PM LOGISTICS MANAGEMENT SPECIALIST Comprehensive Visit Preoperative Evaluation Center in [place], [place] [address] [place] [phone] Arianna Jeffries M.D. [address] [place] [phone] 05/31/2024 2:45 PM LOGISTICS MANAGEMENT SPECIALIST Comprehensive Visit Preoperative Evaluation Center in [place], [place] [address] [place] [phone] Chris Moreno APRN, C.N.P., M.S. [address] [place] [phone] 06/03/2024 8:15 AM LOGISTICS MANAGEMENT SPECIALIST Hospital Encounter Post Anesthesia Care Unit in [place] [address] [place] [address] [phone] Tahir Moore M.D. [address] [place] [phone] 06/03/2024 8:15 AM LOGISTICS MANAGEMENT SPECIALIST - 06/03/2024 2:12 PM LOGISTICS MANAGEMENT SPECIALIST Surgery [facility] MAIN OR [address] [place] [phone] Tahir Moore M.D. [address] [place] [phone] C1-2 fusion 07/02/2024 11:00 AM LOGISTICS MANAGEMENT SPECIALIST Procedure visit Division of Pain Medicine in [place], [place] [address] [place] [phone] Adam Barlow M.D. [address] [place] [phone] Scheduled Procedures Name Priority Associated Diagnoses Date/Ti me 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 06/03/2024 8:15 AM LOGISTICS MANAGEMENT SPECIALIST documented as of this encounter Visit Diagnoses Not on filedocumented in this encounter Care Teams Campaign Marketing Specialist Relationship Specialty Start Date End Date Elsewhere, Pcp PCP - General Internal Medicine 05/10/22 documented as of this encounter
--- OUTSIDE RECORDS SUMMARY | 2024-05-21 14:11 | XMS_ITS | Encounter Summary ---
Author Organization [facility] Address [address] [place] [address] Care Team Providers Care Jawbone Breaker Name Role Phone Elsewhere, Pcp Primary Care Provider Unavailabl e Encounter Details Date Type Department Care Team (Late st Contact Info) Description 05/27/2022 Clinical Communication Department of Neurologic Surgery in [place], [place] [address] [place] [phone] Stu Hahn M.D., M.B.A. Social History Tobacco Use Types Packs/Day Years Used Date Smoking Tobacco: Former Cigarettes Q uit: 1973 Smokeless Tobacco: Never Nutrition Answer Date Recorded Nutrition: EVOO Fat Source Unknown 03/21 Nutrition: Servings of Fruits/Vegetables per Day Not on file 03/21/2022 Dental Answer Date Recorded Dental: Regular Dentist Unknown 03/21/20 22 Comments Unknown Sex and Gender Information Value Date Recorded Sex Assigned at Female 05/11/2022 7:48 AM RUBBER WORKER Legal Sex Female 9:30 PM RUBBER WORKER Gender Identity Female 05/11/2022 7:48 AM RUBBER WORKER Sexual Orientation Straight 05/11/2022 7: 48 AM RUBBER WORKER documented as of this encounter Miscellaneous Notes * Telephone Encounter - Reinier Gibson R.N. - 05/31/2022 5:20 PM RUBBER WORKER I called Gladys to inform her that Dr. Hahn does not feel that an injection would be beneficial for her pain at this time. ER WORKER * Telephone Encounter - Reinier Gibson R.N. - 05/30/2022 4:56 PM RUBBER WORKER Information Discussed I called Gladys to discuss her questions regarding pain management. I told her that I would discuss an injection with Dr. Hahn tomorrow. I also informed her that we do not usually prescribe medications prior to surgery and that she would have to work with her primary care provider is she were to choose that route. I also discussed using topical agents such as voltaren gel or a lidocaine patch to help with her pain. Gladys stated understanding. PLAN Disposition/Recommendation: recommended continue engagement in self-management activities Information/Education: patient/caller able to teach back Caller agreeable to plan of care: yes The following references were used: nursing clinical judgement and provider Dr. Hahn. ER WORKER * Telephone Encounter - Blanquita Sandoval - 05/30/2022 2:22 PM CST Caller Name/Relationship to Patient: Self Auth on file: Yes. Date of service: 05/11/2022 Provider/RN Name: Jovani Reason for Call: Patient calling in to see if there is anything else she can do for lower back & leg pain. She knows it will be a couple months until surgery, but is wondering if there is anything she can do in meantime? She mentioned injections. How to contact back: Call: [phone] ER WORKER * Telephone Encounter - Migdalia Murray - 05/27/2022 2:55 PM CST Caller Name/Relationship to Patient: Self Auth on file: Yes. Date of service: 05/11/2022 Provider/RN Name: Jovani Reason for Call: Says she is steadily going down hill. She is concerned that she had to wait to Arpil and is wondering if she can have it done sooner. How to contact back: [phone] ER WORKER documented in this encounter Plan of Treatment Upcoming Encounters Date Type Department Care Team (Latest Contact Info) Description 05/29/2024 12:15 PM RUBBER WORKER Clinical Communication Virtual Review in [place], [place] 200 [place] [phone] 05/31/2024 11:00 AM RUBBER WORKER Appointment Department of Laboratory Medicine and Pathology, [facility], in [place], [place] [address] [place] [phone] Patricia Parker APRN, C.N.P., D.N.P. [address] [place] [phone] 05/31/2024 2:00 PM RUBBER WORKER Comprehensive Visit Preoperative Evaluation Center in [place], [place] [address] [place] [phone] Arianna Jeffries M.D. [address] [place] [phone] 05/31/2024 2:45 PM RUBBER WORKER Comprehensive Visit Preoperative Evaluation Center in [place], [place] [address] [place] [phone] Chris Moreno, JOHNSON, C.N.P., M.S. [address] [place] [phone] 06/03/2024 8:15 AM RUBBER WORKER Hospital Encounter Post Anesthesia Care Unit in [place], [place] [address] [place] [phone] Tahir Moore M.D. [address] [place] [phone] 06/03/2024 8:15 AM RUBBER WORKER - 06/03/2024 2:12 PM RUBBER WORKER Surgery [facility]ST ROM[facility] MAIN OR [address] [place] [phone] Tahir Moore M.D. [address] [place] [phone] C1-2 fusion 07/02/2024 11:00 AM RUBBER WORKER Procedure visit Division of Pain Medicine in [place], [place] [address] [place] [phone] Adam Barlow M.D. [address] [place] [address] [phone] Scheduled Procedures Name Priority Associated Diagnoses Date/Ti me 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 06/03/2024 8:15 AM RUBBER WORKER documented as of this encounter Visit Diagnoses Not on filedocumented in this encounter Care Teams Jawbone Breaker Relationship Specialty Start Date End Date Elsewhere, Pcp PCP - General Internal Medicine 05/10/22 documented as of this encounter
--- OUTSIDE RECORDS SUMMARY | 2024-05-21 14:11 | XMS_ITS | Encounter Summary ---
Author Organization [facility] Address [address] [place] [address] Care Team Providers Care Quality Control Systems Manager Name Role Phone Elsewhere, Pcp Primary Care Provider Unavailabl e Reason for Visit * Reason Comments Communication Encounter Details Date Type Department Care Team (Late st Contact Info) Description 05/17/2022 Clinical Communication Department of Neurologic Surgery in [place], [place] [address] [place] [address] [phone] Stu Hahn M.D., M.B.A. Communication Social History Tobacco Use Types Packs/Day Years [...] Sex Assigned at Female 05/11/2022 7:48 AM [facility] Legal Sex Female 9:30 PM [facility] Gender Identity Female 05/11/2022 7:48 AM [facility] Sexual Orientation Straight 05/11/2022 7: 48 AM [facility] documented as of this encounter Miscellaneous Notes * Telephone Encounter - Reinier Gibson R.N. - 05/17/2022 12:23 PM [facility] Information Discussed I called Gladys to let her know that we do not currently have any OR availability until August. She stated understanding, I let her know that if there were any cancellations and we could move her soonerthat I would call. PLAN Disposition/Recommendation: recommended continue engagement in self-management activities Information/Education: patient/caller able to teach back Caller agreeable to plan of care: yes The following references were used: nursing clinical judgement SCIENTISTS * Telephone Encounter - Olena Lawrence - 05/17/2022 10:01 AM CST Caller Name/Relationship to Patient: Patient Auth on file: Yes. Date of service: 05/11 Provider/RN Name: Dr. Hahn Reason for Call: Additional Requests: Patient calling to give us updates. She said she had her blood work done on Monday and it all looks good. She had the BMD done on Monday, 05/16. She will be getting the CT and X-ray done next Monday, 05/24. She would like to get a surgery date set up, she is hoping for any time after June 06 if possible. She also wanted to let us know that she had a painful day yesterday. The pain was in her lower backand legs, it is painful to walk and when she sits there is a shooting pain down her legs. Pain was feeling like a 9/10. She takes Tylenol and Gabapentin. How to contact back: Call: [phone] for surgery date. [facility] documented in this encounter Plan of Treatment Upcoming Encounters Date Type Department Care Team (Latest Contact Info) Description 05/29/2024 12:15 PM [facility] Clinical Communication Virtual Review in [place], [place] [address] [place] [phone] 05/31/2024 11:00 AM [facility] Appointment Department of Laboratory Medicine and Pathology, [facility], in [place], [place] [address] [place] [phone] Patricia Parker APRN, C.N.P., D.N.P. [address] [place] [phone] 05/31/2024 2:00 PM [facility] Comprehensive Visit Preoperative Evaluation Center in [place], [place] [address] [place] [phone] Arianna Jeffries M.D. [address] [place] [phone] 05/31/2024 2:45 PM [facility] Comprehensive Visit Preoperative Evaluation Center in [place], [place] [address] [place] [phone] Chris Moreno APRN, C.N.P., M.S. [address] [place] [phone] 06/03/2024 8:15 AM [facility] Hospital Encounter Post Anesthesia Care Unit in [place] [id number] [place] [phone] Tahir Moore M.D. [address] [place] [address] [phone] 06/03/2024 8:15 AM [facility] - 06/03/2024 2:12 PM [facility] Surgery RST ROMB MAIN OR [facility] [place] [phone] Tahir Moore M.D. [address] [place] [phone] C1-2 fusion 07/02/2024 11:00 AM [facility] Procedure visit Division of Pain Medicine in [place], [place] [address] [place] [phone] Adam Barlow M.D. [address] [place] [phone] Scheduled Procedures Name Priority Associated Diagnoses Date/Ti me 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 06/03/2024 8:15 AM [facility] documented as of this encounter Visit Diagnoses Not on filedocumented in this encounter Care Teams Quality Control Systems Manager Relationship Specialty Start Date End Date Elsewhere, Pcp PCP - General Internal Medicine 05/10/22 documented as of this encounter
--- OUTSIDE RECORDS SUMMARY | 2024-05-21 14:11 | XMS_ITS | Encounter Summary ---
Author Organization [facility] Address [address] [place] [address] Care Team Providers Care Client Program Manager Name Role Phone Elsewhere, Pcp Primary Care Provider Unavailabl e Reason for Referral * Outpatient (Routine) - Closed Specialty Diagnoses / Procedures Referred By Contac t Referred To Contact Diagnoses Preanesthetic Medical Exam Atrial Fibrillation Paroxysmal (HCC) Procedures ECG 12 Lead Belgica Croft APRN, C.N.P., D.N.P. Phone: tel: fax: [facility] Referral ID Status Reason Start Date Expiration Date Visits Re quested Visits Authorized [id number] Closed 08/22/2022 08/22/2023 1 1 * Outpatient (Routine) - Closed Specialty Diagnoses / Procedures Referred By Contac t Referred To Contact Anesthesiology Diagnoses Preanesthetic Medical Exam Anemia Belgica Croft APRN, C.N.P., D.N.P. Phone: tel: fax: [facility] Referral ID Status Reason Start Date Expiration Date Visits Re quested Visits Authorized [id number] Closed 08/22/2022 08/22/2023 1 1 Reason for Visit * Outpatient (Routine) - Closed Specialty Diagnoses / Procedures Referred By Contac t Referred To Contact Anesthesiology Diagnoses Stenosis Spinal Stu Hahn M.D., M.B.A. [facility] Referral ID Status Reason Start Date Expiration Date Visits Re quested Visits Authorized [id number] Closed 06/13/2022 06/13/2023 1 1 Encounter Details Date Type Department Care Team (Latest Contact Info) Description 08/22/2022 10:00 AM CDT Comprehensive Visit Preoperative Evaluation Center in [place], [place] [address] [place] [phone] Stu Hahn M.D., M.B.A. Belgica Croft APRN, C.N.P., D.N.P. [address] [place] [phone] Preanesthetic Medical Exam (Primary Dx); Stenosis Spinal; Atrial Fibrillation Paroxysmal (HCC); Atypical Atrial Flutter (HCC); Cardiomegaly; Cardiomyopathy Stress Induced; Hypertension Essential Primary; Depression Major Recurrent (HCC); Hyperlipidemia; Anemia; Gastroesophageal Reflux Disease Without Esophagitis; Gout Social History Tobacco Use Types Packs/Day Years [...] any clubs o r organizations such as shinto groups, unions, fraternal or athletic groups, or [...] and heating? Not hard at all 08/15/2022 [facility] - Occupational [...] degree (e.g., BA, AB, BS) 08/15/2022 Comments Unknown Sex and Gender Information Value Date Recorded Sex Assigned at Female 05/11/2022 7:48 AM [employer] OPERATOR Legal Sex Female 9:30 PM [employer]OACH OPERATOR Gender Identity Female 05/11/2022 7:48 AM B[employer]ING AND BROACH OPERATOR Sexual Orientation Straight 05/11/2022 7: 48 AM B[employer]ING AND BROACH OPERATOR documented as of this encounter Last Filed Vital Signs Vital Sign Reading Time Taken Comments Blood Pressure 120/81 08/22/2022 9:59 AM CDT Pulse 112 08/22/2022 9:59 AM CDT Temperature 36.4 C (97.5 F) 08/22/2022 9:59 AM CDT Respiratory Rate - - Oxygen Saturation 96% 08/22/2022 9:59 AM CDT Inhaled Oxygen Concentration - - Weight 57.2 kg (126 lb 1.7 oz) 08/22/2022 9:59 A M CDT Height 162.5 cm (5' 3.98) 08/22/2022 9:59 AM CD T Body Mass Index 21.66 08/22/2022 9:59 AM CDT documented in this encounter H&P Notes * Belgica Croft APRN, C.N.P., D.N.P. - 08/22/2022 10:00 AM CDT REASON FOR VISIT: Preoperative Medical Evaluation REFERRING PHYSICIAN: Stu Hahn M.D. 08/31/2022: DECOMPRESSION POSTERIOR LUMBAR WITH FUSION; Matt Zheng M.D. Surgery Specific Risk Classification: Elevated [...] from 08/22/2022 in Preoperative Evaluation Center in [place], [place] DASI Total Score 16.2 Estimated V02 [...] inpatient 08/31/2022: DECOMPRESSION POSTERIOR LUMBAR WITH FUSION; Matt Zheng M.D. with Dr. Stu Hahn M.D. secondary to spinal stenosis. She reports sheis able to achieve greater than 4 Mets without cardiopulmonary symptoms. Patient was instructed to discontinue all yvbe-dtc-illstsy vitamins and supplements, aspirin and NSAID containing [...] PATIENT EDUCATION: Reviewed Checklist for Surgical Patients 20690-58 rev 0920. Written and verbal instructions given on medication [...] benefits of chemoprophylaxis. documented in this encounter Miscellaneous Notes * Assessment & Plan Note - Belgica Croft APRN, C.N.P., D.N.P. - 08/22/2022 12:29 PM CDTAssociated Problem(s): Gout Continue allopurinol uninterrupted * Assessment & Plan Note - Belgica Croft APRN, C.N.P., D.N.P. - 08/22/2022 12:14 PM CDTAssociated Problem(s): Hypertension Essential Primary Blood pressure controlled at today's visit. Treated with twice daily lisinopril. Hold lisinopril 24hours prior to procedure. * Assessment & Plan Note - Belgica Croft APRN C.N.P., D.N.P. - 08/22/2022 12:14 PM CDTAssociated Problem(s): Hyperlipidemia Continue Lipitor uninterrupted. * Assessment & Plan Note - Belgica Croft APRN, C.N.P., D.N.P. - 08/22/2022 12:13 PM CDTAssociated Problem(s): Gastroesophageal Reflux Disease Without Esophagitis (Resolved 08/03/2023) Taking Prilosec. She discontinued the Prilosec approximately 1 month ago when her primary care provider told her that her B12 was low and that the Prilosec might be inhibiting the B12 absorption. Shereports that her acid reflux is well controlled without her medication. * Assessment & Plan Note - Belgica Croft APRN, C.N.P., D.N.P. - 08/22/2022 12:13 PM CDTAssociated Problem(s): Major Depressive Disorder, Recurrent, Unspecified (HCC) Continue Wellbutrin uninterrupted. * Assessment & Plan Note - Belgica Croft APRN, C.N.P., D.N.P. - 08/22/2022 12:08 PM CDTAssociated Problem(s): Cardiomyopathy Stress Induced (Resolved 08/03/2023) Euvolemic on today's exam. Recent echocardiogram with an EF of 70%. Continue Coreg uninterrupted. Hold spironolactone 24 hours prior to her procedure. * Assessment & Plan Note - Belgica Croft APRN C.N.P., D.N.P. - 08/22/2022 12:06 PM CDTAssociated Problem(s): Atrial Fibrillation Longstanding Persistent (HCC) - found to be in afib on [...] Monday08/27/2022) -continue coreg twice daily without interruption * Assessment & Plan Note - Belgica Croft APRN, C.N.P., D.N.P. - 08/22/2022 12:05 PM CDTAssociated Problem(s): Anemia H/H 07/21/2022 8.5/25.6 care provider. Primary care provider completed iron labs and she was not shown to be iron deficient. B12 was shown to be low and she was started on B12 injections. documented in this encounter Plan of Treatment Upcoming Encounters Date Type Department Care Team (Latest Contact Info) Description 05/29/2024 12:15 PM BUSHING AND BROACH OPERATOR Clinical Communication Virtual Review in [place], [place] [address] [place] [phone] 05/31/2024 11:00 AM BUSHING AND BROACH OPERATOR Appointment Department of Laboratory Medicine and Pathology, [facility], in [place], [place] [address] [place] [address] [phone] Patricia Parker APRN, C.N.P., D.N.P. [address] [place] [address] [phone] 05/31/2024 2:00 PM BUSHING AND BROACH OPERATOR Comprehensive Visit Preoperative Evaluation Center in [place], [place] [address] [place] [phone] Arianna Jeffries M.D. [address] [place] [phone] 05/31/2024 2:45 PM BUSHING AND BROACH OPERATOR Comprehensive Visit Preoperative Evaluation Center in [place], [place] [address] [place] [address] [phone] Chris Moreno, JOHNSON, C.N.P., M.S. [address] [place] [phone] 06/03/2024 8:15 AM BUSHING AND BROACH OPERATOR Hospital Encounter Post Anesthesia Care Unit in [place], [place] [address] [place] [address] [phone] Tahir Moore M.D. [address] [place] [phone] 06/03/2024 8:15 AM BUSHING AND BROACH OPERATOR - 06/03/2024 2:12 PM BUSHING AND BROACH OPERATOR Surgery RST ROMB MAIN OR [address] [place] [address] [phone] Tahir Moore M.D. [address] [place] [phone] C1-2 fusion 07/02/2024 11:00 AM B[employer]ING AND BROACH OPERATOR Procedure visit Division of Pain Medicine in [place], [place] [address] [place] [address] [phone] Adam Barlow M.D. [address] [place] [phone] Scheduled Procedures Name Priority Associated Diagnoses Date/Ti me 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 06/03/2024 8:15 AM B[employer]ING AND BROACH OPERATOR Scheduled Referrals Name Type Priority Associated Diagnoses Order Schedule Preoperative Medical Evaluation - REJI Anemia Consult (clinic) Outpatient Referral Routine Preanesthetic Medical Exam Anemia Expected: 08/22/2022, Expires: 11/22/2023 documented as of this encounter Procedures Procedure Name Priority Date/Time Associated Diagnosis Comments ECG Routine 08/22/2022 10:52 AM CDT Preanesthetic Medical Exam Atrial Fibrillation Paroxysmal (HCC) documented in this encounter Results * Type and Screen (with reflex Antibody ID) (08/22/2022 11:18 AM CDT) Pathologist [facility] [place] ABORh A Pos Not applicable 08/22/2022 3:55 PM CDT ETRM Antibody Screen Negative Negative 08/22/2022 4:00 PM CDT ETRM Type & Screen Expiration 10/20/2022 23:59 08/22/2022 3:55 PM CDT ETRM Testing Location [place] DEFAULT 08/22/2022 12:04 PM CDT ETRM Blood (Blood, Venous) 08/22/2022 11:18 AM CDT 08/22/2022 12:04 PM CDT Belgica Croft APRN, C.N.P., D.N.P. LAB BLOOD BANK TEST ORDERABLES Final Result [facility] [address] [place] [address], [facility] ETRM [address] [address] * (ABNORMAL) CBC-Preop with reflex anemia panel (08/22/2022 11:18 AM CDT) Pathologist [facility] [place] Hemoglobin 10.4(L) 11.6 - 15.0 g/dL 08/22/2022 11:46 AM CDT DTL Hematocrit 31.0(L) 35.5 - 44.9 % 08/22/2022 11:46 AM CDT DTL Erythrocytes 3.13(L) 3.92 - 5.13 x10(12)/L 08/22/2022 11:46 AM CDT DTL MCV 99.0(H) 78.2 - 97.9 fL 08/22/2022 11:46 AM CDT DTL RBC Distrib Width 14.0 12.2 - 16.1 % 08/22/2022 11:46 AM CDT DTL Platelet Count 221 157 - 371 x10(9)/L 08/22/2022 11:46 AM CDT DTL Leukocytes 4.4 3.4 - 9.6 x10(9)/L 08/22/2022 11:46 AM CDT DTL Blood (Blood, Venous) 08/22/2022 11:[address] [facility] - 08/22/2022 11:46 AM CDT Specimen Information: Specimen ID: [id number] Specimen Type: Blood Specimen Collection Start Date: 08/22/2022 11:18 AM Specimen ID: [id number] Specimen Type: Blood Specimen Collection Start Date: 08/22/2022 11:18 AM Specimen Received Date: 08/22/2022 11:40 AM Specimen ID: [id number] Specimen Type: Blood Specimen Collection Start Date: 08/22/2022 11:18 AM Belgica Croft APRN, C.N.P., D.N.P. LAB BLOOD ADD- ON Final Result [facility] [address] [place] [address], [facility] [address] [place] [address] * ECG 12 Lead (08/22/2022 10:52 AM CDT) Ventricular Rate ECG/Min 106 BPM MUSE RI Interval 188 ms MUSE QRSD Interval 72 ms MUSE QT Interval 330 ms MUSE QTC Interval 438 ms MUSE P Morris 89 degrees MUSE R Morris 32 degrees MUSE T Wave Morris 26 degrees MUSE 08/22/2022 10:5 2 AM CDT 08/22/2022 10:57 AM CDT Impressions MUSE - 08/22/2022 10:57 AM CDT Sinus tachycardia Otherwise normal ECG No previous ECGs available Reviewed by KEVIN Jennings Narrative Procedure Note Jim Mcdowell M.D., Ph.D. - 08/22/2022 IMPRESSION: Sinus tachycardia Otherwise normal ECG No previous ECGs available Reviewed by KEVIN Jennings us Belgica Croft APRN, C.N.P., D.N.P. ECG ORDERABLES Final Result MUSE NA documented in this encounter Visit Diagnoses Diagnosis Preanesthetic Medical Exam- Primary Stenosis Spinal Atrial Fibrillation Paroxysmal (HCC) Atypical Atrial Flutter (HCC) Cardiomegaly Cardiomyopathy Stress Induced Hypertension Essential Primary Major Depressive Disorder, Recurrent, Unspecified (HCC) Hyperlipidemia Anemia Gastroesophageal Reflux Disease Without Esophagitis Gout Preanesthetic Medical Exam Anemia Stenosis Spinal documented in this encounter Care Teams Client Program Manager Relationship Specialty Start Date End Date Elsewhere, Pcp PCP - General Internal Medicine 05/10/22 documented as of this encounter
--- OUTSIDE RECORDS SUMMARY | 2024-05-21 14:11 | XMS_ITS | Encounter Summary ---
Author Organization [facility] Address [address] [place] [address] Care Team Providers Care Seismographer Name Role Phone Elsewhere, Pcp Primary Care Provider Unavailabl e Reason for Visit * Outpatient (Routine) - Closed Specialty Diagnoses / Procedures Referred By Chanel t Referred To Contact Anesthesiology Diagnoses Preanesthetic Medical Exam Anemia Belgica Croft APRN, C.N.P., D.N.P. Phone: tel: fax: [facility] Referral ID Status Reason Start Date Expiration Date Visits Re quested Visits Authorized [id number] Closed 08/22/2022 08/22/2023 1 1 Encounter Details Date Type Department Care Team (Late st Contact Info) Description 08/22/2022 4:00 PM CDT Virtual Visit Preoperative Evaluation Center in [place], [place] [address] [place] [phone] Belgica Croft APRN, C.N.P., D.N.P. [address] [place] [phone] Patricia Parker APRN, C.N.P., D.N.P. [address] [place] [phone] Anemia B12 Deficiency (Primary Dx); Stenosis Spinal; Preanesthetic Medical Exam; Anemia Social History Tobacco Use Types Packs/Day [...] How often do you attend chur or episcopalian services? More than 4 times per year 08/15/2022 Do you belong to any clubs o r organizations such as anabaptism groups, unions, fraternal or athletic groups, or [...] at all 08/15/2022 [facility] - Occupational Stress [...] place to sleep or slept in a usp (including now)? No 08/15/2022 Nutrition Answer Date [...] Assigned at Female 05/11/2022 7:48 AM QUALITY ASSURANCE SUPERVISOR TRIM Legal Sex Female 9:30 PM QUALITY ASSURANCE SUPERVISOR TRIM Gender Identity Female 05/11/2022 7:48 AM QUALITY ASSURANCE SUPERVISOR TRIM Sexual Orientation Straight 05/11/2022 7: 48 AM QUALITY ASSURANCE SUPERVISOR TRIM documented as of this encounter Consult Notes * Patricia Hernandez APRN, C.N.P., D.N.P. - 08/22/2022 4:00 PM CDT REASON FOR VISIT: Anemia Evaluation REFERRING PHYSICIAN: Belgica Croft APRN, C.N.P., D.N.P. SUBJECTIVE HISTORY OF PRESENT ILLNESS Appointment was conducted via phone call. Gladys Zamarripa is a 72 y.o. female being seen for for preoperative anemia evaluation prior to scheduled L3-S1 fusion with TLIF at L3/4 and L4/5 on 08/31/[address] Zheng. Patients most recent hemoglobin was?10.4?on 08/22/2022, which is up from the previous hemoglobin of8.5 on 07/21/2022. Ferritin 68, Percent Saturation 66, Absolute reticulocyte count 53.8, Reticulocyte Hemoglobin 36, Folate 17.2, B12 554, CRP less than 3. Family/personal history of any bleeding or clotting disorders: No History of bleeding: Yes, patient reports she did have an upper GI bleed in 2018 and required hospitalization with blood transfusion and EGD at that time showed a small ulcer. Repeat EGD showed ulcerhad resolved. She has had no bleeding since then. Blood transfusions in the last 3 months: No Blood donations in the last 3 months: No Past Hematology evaluation: No, no previous Hematology evaluation but she she reports has had anemia for at least 10 years. Current treatment with Chemo therapy: No Surgery or procedure in the last 3 months: No History of gastric bypass, celiac disease or inflammatory bowel disease: No Current treatment with iron or EPO: Yes, she reports she started taking oral iron supplementation 3days per week a few months ago to try to optimize her hemoglobin prior to the surgery. Current PPI use: Yes, Prilosec Current cancer diagnosis: No Prior DVT or PE: No Colonoscopy or EGD: Colonoscopy 11/28/2017 The following portions of the patient's history were reviewed and updated as appropriate: allergies, current medications, medical history, social history, surgical history and problem list. REVIEW OF SYSTEMS Skin: Positive for change in mole or skin spot. Respiratory: - Negative for coughing up blood. Gastrointestinal: Positive for difficulty swallowing. - Negative for blood in stool. Genitourinary: Positive for urgency. - Negative for blood in urine. Hematologic: Positive for bruises or bleeds easily. Musculoskeletal: Positive for pain or stiffness in the joints and back pain. Neurological: Positive for numbness or shooting pain in hands, arms, legs, or feet. The following systems were negative: Constitutional, Eyes, Respiratory, Cardiovascular, Psychiatric OBJECTIVE Neurological Mental Status: She is alert. Psychiatric Mood and Affect: Mood normal. Behavior: Behavior normal. Thought Content: Thought content normal. Judgment: Judgment normal. ASSESSMENT / PLAN #1 Anemia B12 Deficiency #2 Stenosis Spinal Based on all available labs, anemia likely multifactorial and contributed by vitamin B12 deficiency. Patient was seen by her primary care provider for dizziness and hypotension and found to have macrocytic anemia and vitamin B12 deficiency. She was started on weekly vitamin B12 injections and has received 4 injections, last 08/18/2022. Vitamin B12 was 157 on July 21, 2022 and has come up to 554, today. We do not have a methylmalonic acid. Hemoglobin has come up almost 2 points in 1 month as well with the vitamin B12 injections. She does have a history of anemia with hemoglobins remaining around 11 for the last few years. We discussed the goal of optimizing her hemoglobin prior to surgery. We discussed there could be additional factors contributing to the anemia such as inflammation or chronic disease. Due to the excellent response from the vitamin B12 injections I would not recommend any additional anemia treatmentat this time. Ferritin is slightly low at 68 but % saturation is elevated at 66, patient is not iron deficient. We discussed that she can continue to take oral iron supplementation postoperatively ifshe tolerates it. We discussed that I recommend she continue the vitamin B12 injections monthly andkat confirms that this was her primary care provider's plan. She does have labs scheduled with her PCP on August 29. RECOMMENDATIONS: Anemia Treatment Recommendations: 1) Continue with vitamin B12 injections. Repeat labs August 29, 2022. PATIENT EDUCATION: I reviewed patient education pamphlet 0137-10 Treating anemia before surgery with the patient.All questions have been answered. documented in this encounter Plan of Treatment Upcoming Encounters Date Type Department Care Team (Latest Contact Info) Description 05/29/2024 12:15 PM QUALITY ASSURANCE SUPERVISOR TRIM Clinical Communication Virtual Review in [place], [place] [address] [place] [phone] 05/31/2024 11:00 AM QUALITY ASSURANCE SUPERVISOR TRIM Appointment Department of Laboratory Medicine and Pathology, [facility] in [place], [place] [address] [place] [phone] Patricia Parker APRN, C.N.P., D.N.P. [address] [place] [phone] 05/31/2024 2:00 PM QUALITY ASSURANCE SUPERVISOR TRIM Comprehensive Visit Preoperative Evaluation Center in [place], [place] [address] [place] [phone] Arianna Jeffries M.D. [address] [place] [phone] 05/31/2024 2:45 PM QUALITY ASSURANCE SUPERVISOR TRIM Comprehensive Visit Preoperative Evaluation Center in [place], [place] [address] [place] [phone] Chris Moreno APRN, C.N.P., M.S. [address] [place] [phone] 06/03/2024 8:15 AM QUALITY ASSURANCE SUPERVISOR TRIM Hospital Encounter Post Anesthesia Care Unit in [place], [place] [address] [place] [phone] Tahir Moore M.D. [address] [place] [phone] 06/03/2024 8:15 AM QUALITY ASSURANCE SUPERVISOR TRIM - 06/03/2024 2:12 PM QUALITY ASSURANCE SUPERVISOR TRIM Surgery [facility]IN OR [address] [place] [phone] Tahir Moore M.D. [address] [place] [phone] C1-2 fusion 07/02/2024 11:00 AM QUALITY ASSURANCE SUPERVISOR TRIM Procedure visit Division of Pain Medicine in [place], [place] [address] [place] [phone] Adam Barlow M.D. [address] [place] [phone] Scheduled Procedures Name Priority Associated Diagnoses Date/Ti me 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 06/03/2024 8:15 AM QUALITY ASSURANCE SUPERVISOR TRIM documented as of this encounter Visit Diagnoses Diagnosis Anemia B12 Deficiency- Primary Stenosis Spinal Preanesthetic Medical Exam Anemia Stenosis Spinal documented in this encounter Care Teams Seismographer Relationship Specialty Start Date End Date Elsewhere, Pcp PCP - General Internal Medicine 05/10/22 documented as of this encounter
--- OUTSIDE RECORDS SUMMARY | 2024-05-21 14:11 | XMS_ITS | Encounter Summary ---
Author Organization [facility] Address [address] [place] [address] Care Team Providers Care Door Repairman Name Role Phone Elsewhere, Pcp Primary Care Provider Unavailabl e Reason for Visit * Appointment Request (Routine) - Closed Specialty Diagnoses / Procedures Referred By Chanel t Referred To Contact Spine Diagnoses Stenosis Spinal Lumbar MichaelChristine lamb M.D. Phone: tel: fax: Referral ID Status Reason Start Date Expiration Date Visits Re quested Visits Authorized [id number] Closed 03/21/2022 03/21/2023 2 2 Encounter Details Date Type Department Care Team (Latest Contact Info) Description 05/11/2022 9:00 AM CONTRACTING SUPPORT SPECIALIST Comprehensive Visit Department of Spine in [place], [place] [address] [place] [phone] Vimal Li M.D. [address] [place] [phone] Stenosis Spinal (Primary Dx) Social History Tobacco Use Types [...] Sex Assigned at Female 05/11/2022 7:48 AM CONTRACTING SUPPORT SPECIALIST Legal Sex Female 9:30 PM CONTRACTING SUPPORT SPECIALIST Gender Identity Female 05/11/2022 7:48 AM CONTRACTING SUPPORT SPECIALIST Sexual Orientation Straight 05/11/2022 7: 48 AM CONTRACTING SUPPORT SPECIALIST documented as of this encounter Last Filed Vital Signs Vital Sign Reading Time Taken Comments Blood Pressure 143/91 05/11/2022 8:51 AM CONTRACTING SUPPORT SPECIALIST Pulse 102 05/11/2022 8:51 AM CONTRACTING SUPPORT SPECIALIST Temperature - - Respiratory Rate - - Oxygen Saturation - - Inhaled Oxygen Concentration - - Weight 59.9 kg (132 lb 2.7 oz) 05/11/2022 8:51 A M CONTRACTING SUPPORT SPECIALIST Height 160.3 cm (5' 3.11) 05/11/2022 8:51 AM CS T Body Mass Index 23.33 05/11/2022 8:51 AM CONTRACTING SUPPORT SPECIALIST documented in this encounter Consult Notes * Vimal Li M.D. - 05/11/2022 9:00 AM CST SUBJECTIVE REQUESTING PROVIDER Christine Rodriguez M.D. REASON FOR CONSULT Shooting bilateral leg pain more severe than low back pain HISTORY OF PRESENT ILLNESS Gladys Zamarripa is a very pleasant 72 y.o. female who presents today for evaluation of the above. SHe lives in [facility]. This is a pre- surgical visit. She is accompanied today by her . She is had these symptoms since October 2019. She reports over time doing physical therapy that seemedto help to a certain extent. In February 2022 the symptoms got significantly worse to the point thatshe could not tolerate doing some of her pool exercises anymore. Her physical therapist had her stop coming to physical therapy as she reported insurance would no longer cover the physical therapy as she was making no improvement. She describes bilateral sacroiliac area aching discomfort that is less severe than shooting pain she gets into the hamstrings bilaterally and along the iliotibial band. Typically this stops at the knee but sometimes goes past the knee. She gets the leg symptoms primarily when standing or walking although transitioning from sitting to standing can bring it on fairly prominently. Rolling over in bed causes more of the back pain. She has to move very slowly as she is afraid if she moves quickly she will get the shooting leg symptoms. She has started using a walker over the last few weeks that helps to certain extent. She is never had spine injections but took three different courses of six days of oral corticosteroids. The first two helped for a short amount of time. The third did not. The patient over time initially felt she would like to avoid surgery but now she is ready for surgery if it will help her. She denies bladder incontinence. The following portions of the patient's history were reviewed as appropriate: allergies, current medications, family history, medical history, social history, surgical history and problem list. REVIEW OF SYSTEMS I have briefly reviewed the Review of Systems as noted on the Health history form. I am only responding to those symptoms which are directly relevant to the specific indication for my consultation. Irecommend that the patient follow up with their primary or referring provider to pursue any other symptoms which may be of concern. OBJECTIVE PHYSICAL EXAM General: Well-developed, well-nourished individual in no acute distress. Mental: Appropriate mood and affect. Grossly oriented with coherent speech and thought processing. Reflexes: Absent at the ankles bilaterally. Knee reflexes are symmetrically -3. Toes are downgoing to plantar stimulation bilaterally. Palpation: Nontender in the low back and pelvic girdle Joints: Left hip examination is normal. Right hip hamstring discomfort with Stinchfield otherwise the right hip examination is normal Strength: Lower extremity strength testing symmetric and normal DIAGNOSTICS Outside lumbar MRI scan from March 2022 shows multilevel degenerative change. There is central canal stenosis at L2-3, L3-4, L4-5. Right neural foraminal stenosis at L3-4. Lateral recess stenosis at L4-5. ASSESSMENT / PLAN #1 Bilateral hamstring pain more severe than back pain I discussed with the patient the MRI findings using a spine model today. I did discuss with them the role of a trial of an epidural steroid injection. I discussed with them it is my opinion that if this is helpful, in her case I think this would be temporary in its efficacy. She is scheduled to meet with one of our spine surgeons later today to discuss potential surgical options and what this mayentail. I tried to answer her questions the best my ability. Total time 50 minutes including [id number] and non [id number]-[id number] time EDUCATION We discussed the diagnosis and treatment plan in detail. The patient expressed understanding of thecontent. No apparent learning barriers were identified; learning preferences include listening. Signed by: Vimal Li M.D. 05/11/2022 8:36 AM CONTRACTING SUPPORT SPECIALIST RACTING SUPPORT SPECIALIST documented in this encounter Plan of Treatment Upcoming Encounters Date Type Department Care Team (Latest Contact Info) Description 05/29/2024 12:15 PM CONTRACTING SUPPORT SPECIALIST Clinical Communication Virtual Review in [place], [place] [address] [place] [phone] 05/31/2024 11:00 AM CONTRACTING SUPPORT SPECIALIST Appointment Department of Laboratory Medicine and Pathology, [facility], in [address] [phone] Patricia Parker APRN, C.N.P., D.N.P. [address] [place] [phone] 05/31/2024 2:00 PM CONTRACTING SUPPORT SPECIALIST Comprehensive Visit Preoperative Evaluation Center in [place], [place] [address] [place] [phone] Arianna Jeffries M.D. [address] [place] [phone] 05/31/2024 2:45 PM CONTRACTING SUPPORT SPECIALIST Comprehensive Visit Preoperative Evaluation Center in [place], [place] [address] [place] [phone] Chris Moreno APRN, C.N.P., M.S. [address] [place] [phone] 06/03/2024 8:15 AM CONTRACTING SUPPORT SPECIALIST Hospital Encounter Post Anesthesia Care Unit in [place], [place] [address] [place] [phone] Tahir Moore M.D. [address] [place] [phone] 06/03/2024 8:15 AM CONTRACTING SUPPORT SPECIALIST - 06/03/2024 2:12 PM CONTRACTING SUPPORT SPECIALIST Surgery [facility] OR [address] [place] [phone] Tahir Moore M.D. [address] [place] [phone] C1-2 fusion 07/02/2024 11:00 AM CONTRACTING SUPPORT SPECIALIST Procedure visit Division of Pain Medicine in [place], [place] [address] [place] [phone] Adam Barlow M.D. [address] [place] [phone] Scheduled Procedures Name Priority Associated Diagnoses Date/Ti me 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 06/03/2024 8:15 AM CONTRACTING SUPPORT SPECIALIST documented as of this encounter Visit Diagnoses Diagnosis Stenosis Spinal- Primary Stenosis Spinal documented in this encounter Care Teams Door Repairman Relationship Specialty Start Date End Date Elsewhere, Pcp PCP - General Internal Medicine 05/10/22 documented as of this encounter
--- OUTSIDE RECORDS SUMMARY | 2024-05-21 14:11 | XMS_ITS | Encounter Summary ---
Author Organization [facility] Address [address] [place] [address] Care Team Providers Care Automatic Serging Machine Operator Name Role Phone Elsewhere, Pcp Primary Care Provider Unavailabl e Encounter Details Date Type Department Care Team (Late st Contact Info) Description 05/24/2022 Clinical Communication Department of Neurologic Surgery in [place], [place] [address] [place] [phone] Stu Hahn M.D., M.B.A. Social History Tobacco [...] Sex Assigned at Female 05/11/2022 7:48 AM FIELD MANAGER Legal Sex Female 9:30 PM FIELD MANAGER Gender Identity Female 05/11/2022 7:48 AM FIELD MANAGER Sexual Orientation Straight 05/11/2022 7: 48 AM FIELD MANAGER documented as of this encounter Miscellaneous Notes * Telephone Encounter - Reinier Gibson R.N. - 05/25/2022 4:47 PM FIELD MANAGER Information Discussed I returned Gladys's phone call from today. She tells me that she has been in constant pain and the thought of waiting until August is unbearable. Gladys tells me that her pain has become a constant bother. She states that it is honed in on her tailbone. It affects her ability to walk. I informed her that I would discuss this with Dr. Hahn but unfortunately, our earliest OR date is not until August. PLAN Disposition/Recommendation: recommended continue engagement in self-management activities Information/Education: patient/caller able to teach back Caller agreeable to plan of care: yes The following references were used: nursing clinical judgement D MANAGER * Telephone Encounter - Mamie Ritchie - 05/25/2022 2:34 PM CST Patient called again. She would like a call back soon. She said her pain is getting bad and wants to schedule the surgical date. Please call her at [phone]. Thank you. D MANAGER * Telephone Encounter - Mamie Ritchie - 05/24/2022 11:17 AM CST Caller Name: Gladys Zamarripa Auth on file: Yes. Date of service: 05/11/22 Provider/RN Name: Dr. Hahn/Reinier Saenz Reason for Call: Additional Requests: She wanted the team to know that she had her CT and full spine x-rays done this morning and [facility] will be pushing those results through once they are available. She wouldlike a call back from nurse regarding scheduling surgery. Her daughter is getting this Summer and really would like to have surgery soon so she can be recovered by then. She said she is having more pain and disability every week and it quite concerned about this. How to contact back: Call: [phone] D MANAGER documented in this encounter Plan of Treatment Upcoming Encounters Date Type Department Care Team (Latest Contact Info) Description 05/29/2024 12:15 PM FIELD MANAGER Clinical Communication Virtual Review in [place], [place] [address] [place] [phone] 05/31/2024 11:00 AM FIELD MANAGER Appointment Department of Laboratory Medicine and Pathology, [facility], in [place], [place] [address] [place] [phone] Patricia Parker APRN, C.N.P., D.N.P. [address] [place] [phone] 05/31/2024 2:00 PM FIELD MANAGER Comprehensive Visit Preoperative Evaluation Center in [place], [place] [address] [place] [phone] Arianna Jeffries M.D. [address] [place] [phone] 05/31/2024 2:45 PM FIELD MANAGER Comprehensive Visit Preoperative Evaluation Center in [place], [place] [address] [place] [phone] Chris Moreno, JOHNSON, C.N.P., M.S. [address] [place] [phone] 06/03/2024 8:15 AM FIELD MANAGER Hospital Encounter Post Anesthesia Care Unit in [place] [id number] [place] [phone] Tahir Moore M.D. [address] [place] [phone] 06/03/2024 8:15 AM FIELD MANAGER - 06/03/2024 2:12 PM FIELD MANAGER Surgery [facility] OR [facility] [place] [phone] Tahir Moore M.D. [address] [place] [phone] C1-2 fusion 07/02/2024 11:00 AM FIELD MANAGER Procedure visit Division of Pain Medicine in [place], [place] [address] [place] [phone] Adam Barlow M.D. [address] [place] [phone] Scheduled Procedures Name Priority Associated Diagnoses Date/Ti me 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 06/03/2024 8:15 AM FIELD MANAGER documented as of this encounter Visit Diagnoses Not on filedocumented in this encounter Care Teams Automatic Serging Machine Operator Relationship Specialty Start Date End Date Elsewhere, Pcp PCP - General Internal Medicine 05/10/22 documented as of this encounter
--- OUTSIDE RECORDS SUMMARY | 2024-05-21 14:11 | XMS_ITS | Encounter Summary ---
Author Organization [facility] Address [address] [place] [address] Care Team Providers Care Apartment House Manager Name Role Phone Elsewhere, Pcp Primary Care Provider Unavailabl e Encounter Details Date Type Department Care Team (Late st Contact Info) Description 07/05/2022 Clinical Communication Department of Neurologic Surgery in [place], [place] [address] [place] [phone] Stu Hahn M.D., M.B.A. Social History Tobacco [...] Sex Assigned at Female 05/11/2022 7:48 AM LOCK MAINTENANCE SUPERVISOR Legal Sex Female 9:30 PM LOCK MAINTENANCE SUPERVISOR Gender Identity Female 05/11/2022 7:48 AM LOCK MAINTENANCE SUPERVISOR Sexual Orientation Straight 05/11/2022 7: 48 AM LOCK MAINTENANCE SUPERVISOR documented as of this encounter Miscellaneous Notes * Telephone Encounter - Jana Perkins R.N. - 07/06/2022 2:21 PM LOCK MAINTENANCE SUPERVISOR SUBJECTIVE CHIEF COMPLAINT / REASON FOR CALL No chief complaint on file. Information Discussed Gladys is currently scheduled for surgery with Dr. Hahn in August. She calls with an update. She cannot stand for more than a few minutes, before feels fatigue from the waist down through the legs. Gladys has had episodes of feeling dizzy and faint. She has fallen more recently. Her low back and leg pain has grown more intense. She notes numbness and tingling in her feet has gotten worse, she is noticing more of these symptoms in her hands. PLAN We have asked her to visit with her primary care provider to discuss her dizziness and feeling faint. She asks that an update be provided to Dr. Hahn, and would welcome a sooner surgery date if possible. Disposition/Recommendation: recommended continue engagement in self-management activities Information/Education: patient/caller able to teach back Caller agreeable to plan of care: yes The following references were used: nursing clinical judgement MAINTENANCE SUPERVISOR * Telephone Encounter - Blanquita Sandoval - 07/05/2022 1:01 PM CST Caller Name/Relationship to Patient: Self Auth on file: Yes. Date of service: 08/31/22 Surgery Provider/RN Name: Jovani/Chief Quintanilla Reason for Call: Patient is calling in to speak with nurse about how she is doing lately. She is concerned because since she has seen Dr. Hahn her pain has increased and before it was just in lower back and hips. Now it is the whole spine including neck and tailbone. She notes she's had a few episodes of where herbody will just shake by itself. She is hoping to speak to nurse to see if we can move the surgery up sooner due to increase in symptoms. How to contact back: Call: [phone] MAINTENANCE SUPERVISOR documented in this encounter Plan of Treatment Upcoming Encounters Date Type Department Care Team (Latest Contact Info) Description 05/29/2024 12:15 PM LOCK MAINTENANCE SUPERVISOR Clinical Communication Virtual Review in [place] [address] [place] [phone] 05/31/2024 11:00 AM LOCK MAINTENANCE SUPERVISOR Appointment Department of Laboratory Medicine and Pathology, [facility], in [place], [place] [address] [place] [phone] Patricia Parker APRN, C.N.P., D.N.P. [address] [place] [phone] 05/31/2024 2:00 PM LOCK MAINTENANCE SUPERVISOR Comprehensive Visit Preoperative Evaluation Center in [place], [place] [address] [place] [phone] Arianna Jeffries M.D. [address] [place] [phone] 05/31/2024 2:45 PM LOCK MAINTENANCE SUPERVISOR Comprehensive Visit Preoperative Evaluation Center in [place], [place] [address] [place] [phone] Chris Moreno APRN, C.N.P., M.S. [address] [place] [phone] 06/03/2024 8:15 AM LOCK MAINTENANCE SUPERVISOR Hospital Encounter Post Anesthesia Care Unit in [place], [place] [address] [place] [phone] Tahir Moore M.D. [address] [place] [phone] 06/03/2024 8:15 AM LOCK MAINTENANCE SUPERVISOR - 06/03/2024 2:12 PM LOCK MAINTENANCE SUPERVISOR Surgery [facility] OR [address] [place] [phone] Tahir Moore M.D. [address] [place] [phone] C1-2 fusion 07/02/2024 11:00 AM LOCK MAINTENANCE SUPERVISOR Procedure visit Division of Pain Medicine in [place], [place] [address] [place] [phone] Adam Barlow M.D. [address] [place] [phone] Scheduled Procedures Name Priority Associated Diagnoses Date/Ti me 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 06/03/2024 8:15 AM LOCK MAINTENANCE SUPERVISOR documented as of this encounter Visit Diagnoses Not on filedocumented in this encounter Care Teams Apartment House Manager Relationship Specialty Start Date End Date Elsewhere, Pcp PCP - General Internal Medicine 05/10/22 documented as of this encounter
--- OUTSIDE RECORDS SUMMARY | 2024-05-21 14:11 | XMS_ITS | Encounter Summary ---
Author Organization [facility] Address [address] [place] [address] Care Team Providers Care Recreational Therapy Aide Name Role Phone Elsewhere, Pcp Primary Care Provider Unavailabl e Reason for Visit * Appointment Request (Routine) - Closed Specialty Diagnoses / Procedures Referred By Chanel t Referred To Contact Spine Diagnoses Stenosis Spinal Lumbar MichaelChristine M.D. Phone: tel: fax: Referral ID Status Reason Start Date Expiration Date Visits Re quested Visits Authorized [id number] Closed 03/21/2022 03/21/2023 2 2 Encounter Details Date Type Department Care Team (Latest Contact Info) Description 05/11/2022 2:00 PM V BELT BUILDER Comprehensive Visit Department of Neurologic Surgery in [place], [place] [address] [place] [phone] Stu Hahn M.D., M.B.A. Screening Osteoporosis (Primary Dx); Pain Low Back Unspecified Social History Tobacco Use Types Packs/Day Years [...] Sex Assigned at Female 05/11/2022 7:48 AM V BELT BUILDER Legal Sex Female 9:30 PM V BELT BUILDER Gender Identity Female 05/11/2022 7:48 AM V BELT BUILDER Sexual Orientation Straight 05/11/2022 7: 48 AM V BELT BUILDER documented as of this encounter Consult Notes * tSu Hahn M.D. - 05/11/2022 2:00 PM CST Referring Provider: Christine Rodriguez M.D. SUBJECTIVE CHIEF COMPLAINT / REASON FOR VISIT Gladys Zamarripa is a 72 y.o. female who presents for evaluation of low back and bilateral leg pain. HISTORY OF PRESENT ILLNESS Please see Dr. Li's documentation for detailed history and physical examination. Mrs. Zamarripa is a 72-year-old female who presents for evaluation of [...] history, and problem list. OBJECTIVE PHYSICAL EXAM Significant right lower extremity neurogenic atrophy, right iliopsoas 4/5, left iliopsoas 4- out of5, bilateral quadriceps 4 strength, right extensor hallucis longus 4- out of 5 DIAGNOSTICS MRI lumbar spine demonstrates: Grade 1 L3 on L4 and L4 on L5 spondylolisthesis with central canal narrowing. At L3-4 and L4-5 there is increased T2 signal within the facet joints. Lumbar spondylosis with associated ligamentous hypertrophy and degenerative disc disease. There is significant loss of disc height at L1-2, L3-4, and L4-5 with associated neural foraminal narrowing. Lumbar spine radiographs demonstrate: There are six lumbar type segments, presumably with lumbarization of S1 as there were 12 rib-bearing vertebral bodies on prior chest radiograph. Moderate spondylotic changes throughout the lumbar spine with degenerative disk disease and facet arthritis. Disk space narrowing is most advanced at L2-3. Grade I retrolisthesis of L2. Grade I anterolisthesis of L4 and L5. No instability on flexion and extension. Degenerative arthritis both sacroiliac joints. Vascular calcifications. Lower abdominal and pelvic surgical clips. Disk space narrowing has worsened compared to outside radiographs 10/15/2020. ASSESSMENT / PLAN #1 Pain Low Back Unspecified #2 Screening Osteoporosis I discussed with the patient her symptoms as well as imaging findings. Of note she has severe central lumbar spinal stenosis at L3-4 and L4-5 with grade 1 spondylolisthesis at each level which is contributing to the central stenosis. The patient's pain is likely multifactorial a component that is radicular and another component that is neurogenic claudication. We discussed surgical treatment of the patient's symptoms which would include L2 to pelvis posterior lumbar instrumented fusion with transforaminal lumbar interbody fusions at L3-4 and L4-5 as well as a lumbar laminectomy at L3-4 and L4-5 with bilateral foraminotomies. I discussed with the patient that prior to any surgical intervention she would have to have a vitamin-D level obtained, DEXA scan, as well as CT scan of the lumbar spine. Lastly, given the patient's multilevel spondylolisthesis, we will obtain a standing scoliosis film to evaluate the patient's sagittal balance. The patient is understandably concerned about the progression of her symptoms in the setting of having a vacation planned over the next month or so. We discussed surgical timing which will likely be in early to mid June. I will plan to see the patient back to discuss surgical intervention further. The patient was in agreement. All questions were answered. With any questions regarding this patient's neurosurgical plan of care, please contact my rm resident via the Neurosurgery Chief C service pager [phone] or, if needed for urgent or decisive issues, [place] [phone]. BILLIN minutes of time were spent in consultation with the patient, greater than 50% of which was dedicated to education, counseling, and coordination of care. V BELT BUILDER V BELT BUILDER documented in this encounter Plan of Treatment Upcoming Encounters Date Type Department Care Team (Latest Contact Info) Description 05/29/2024 12:15 PM V BELT BUILDER Clinical Communication Virtual Review in [place], [place] [address] [place] [phone] 05/31/2024 11:00 AM V BELT BUILDER Appointment Department of Laboratory Medicine and Pathology, [facility], in [place], [place] [address] [place] [phone] Patricia Parker APRN, C.N.P., D.N.P. [address] [place] [phone] 05/31/2024 2:00 PM V BELT BUILDER Comprehensive Visit Preoperative Evaluation Center in [place], [place] [address] [place] [phone] Arianna Jeffries M.D. [address] [place] [phone] 05/31/2024 2:45 PM V BELT BUILDER Comprehensive Visit Preoperative Evaluation Center in [place], [place] [address] [place] [phone] Chris Moreno, JOHNSON, C.N.P., M.S. [address] [place] [phone] 06/03/2024 8:15 AM V BELT BUILDER Hospital Encounter Post Anesthesia Care Unit in [address] [phone] Tahir Moore M.D. [address] [place] [phone] 06/03/2024 8:15 AM V BELT BUILDER - 06/03/2024 2:12 PM V BELT BUILDER Surgery [facility] OR [address] [place] [phone] Tahir Moore M.D. [address] [place] [phone] C1-2 fusion 07/02/2024 11:00 AM V BELT BUILDER Procedure visit Division of Pain Medicine in [place], [place] [address] [place] [phone] Adam Barlow M.D. [address] [place] [phone] Scheduled Procedures Name Priority Associated Diagnoses Date/Ti me 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 06/03/2024 8:15 AM V BELT BUILDER documented as of this encounter Visit Diagnoses Diagnosis Screening Osteoporosis- Primary Pain Low Back Unspecified Stenosis Spinal documented in this encounter Care Teams Recreational Therapy Aide Relationship Specialty Start Date End Date Elsewhere, Pcp PCP - General Internal Medicine 05/10/22 documented as of this encounter
--- OUTSIDE RECORDS SUMMARY | 2024-05-21 14:11 | XMS_ITS | Encounter Summary ---
Author Organization [facility] Address [address] [place] [address] Care Team Providers Care Director Of Casework Services Name Role Phone Elsewhere, Pcp Primary Care Provider Unavailabl e Encounter Details Date Type Department Care Team (Late st Contact Info) Description 08/31/2022 8:15 AM CDT - 08/31/2022 3:43 PM CDT Surgery RST ROMB MAIN OR [address] [place] [phone] Matt Zheng M.D. [address] [place] [phone] L3-S1 Fusion, TLIF at L3/4, L4/5. Social History Tobacco Use Types Packs/Day Years [...] How often do you attend chur or tenriism services? More than 4 times per year 08/15/2022 Do you belong to any clubs o r organizations such as congregational groups, unions, fraternal or athletic groups, or [...] and heating? Not hard at all 08/15/2022 [facility] [place] of Occupat ional Health - [...] Sex Assigned at Female 05/11/2022 7:48 AM CLINICAL RESEARCH SPECIALIST Legal Sex Female 9:30 PM CLINICAL RESEARCH SPECIALIST Gender Identity Female 05/11/2022 7:48 AM CLINICAL RESEARCH SPECIALIST Sexual Orientation Straight 05/11/2022 7: 48 AM CLINICAL RESEARCH SPECIALIST documented as of this encounter Last Filed Vital Signs Vital Sign Reading Time Taken Comments Blood Pressure 118/92 08/31/2022 7:27 AM CDT Pulse 93 08/31/2022 7:27 AM CDT Temperature 36.6 C (97.9 F) 08/31/2022 7:27 AM CDT Respiratory Rate - - Oxygen Saturation 100% 08/31/2022 7:27 AM CDT Inhaled Oxygen Concentration - - Weight 57 kg (125 lb 10.6 oz) 08/31/2022 7:27 AM CDT Height 162.6 cm (5' 4) 08/31/2022 7:27 AM CDT Body Mass Index 21.57 08/31/2022 7:27 AM CDT documented in this encounter Discharge Summaries * Calvin Escalera M.D., Ph.D. - 09/04/2022 3:08 PM CDT DISCHARGE SUMMARY BRIEF OVERVIEW Hospital: [facility] Discharge Provider: Matt Zheng M.D. Primary Care Providers: Elsewhere, Pcp [...] 08/31/2022 L3-S1 Fusion, TLIF at L3/4, L4/5. Matt Zheng M.D.Spear, Joshua A, M.D.Martini, Michael L, M.D., Ph.D.Jacob Ramirez M.D. [facility] ROMB OR DISCHARGE DISPOSITION Home or Self [...] event of a medical emergency you should call9-1-1): 1. Neurosurgery Follow-Up: Follow-up appointments will be [...] to change an appointment, please call the provider relations coordinator, who can be reached at [phone]. 2. Emergent Clinical Issue: For routine clinical questions, please address as stated above during regular business hours (Monday-Monday, 8am-5pm). For emergent concerns during regular business hours please call the [facility] Press Helper at [phone] and ask to speak to Chief C's Neurosurgery Service; the turn operator will connect you with one of our neurosurgery providers at the hospital. If you have an emergent issue during the evening or weekend hours, please call the [facility] Press Helper at [phone] and ask to speak to Chief C's Neurosurgery Service; the turn operator will connect you emergently to a physician on the neurosurgery team who is taking call from home. 3. Routine clinical questions and/or 4. Medication refills: For routine clinical questions (questions that can be answered within 24 hours) the preferred method of communication is the [facility] Patient Portal. Questions for Chief C's service and/or medication refills would be best asked through the portal. If you do not have access to the portal, you maycall the neurosurgery office directly at [phone] during normal business hours for any questions [...] from the wound, you should call the [facility] Press Helper at [phone] and ask to speak to the resident experimental electronics developer for the Chief C Neurosurgery service, or call your primary care provider. Alternatively, youmay contact the Neurosurgery outpatient offices by calling [phone] and asking to be connected to the Neurosurgery office. The nurse that you speak with will ask that you send a wound photo to the Neurosurgery photo email inbox: [email or web address]. In the email, please include your name, [facility] number (MC#) and surgeon's name. The [...] you are well hydrated, prune juice or ulnm-wpm-ybabaxb MiraLAX once daily as prescribed, and light exercise such as walking. Coffee and other caffeinated beverages will also help those who routinely drink them. OUTPATIENT FOLLOW UP Scheduled Appointments 10/13/2022 9:00 AM [place] Nov[facility] RM 340 Radiology 10/13/2022 11:30 AM Stu [...] through Care Everywhere. * Acetaminophen (By mouth) (Mozambican) * Bisacodyl (By mouth) (Mozambican) * Oxycodone, Rapid Release (By mouth) (Mozambican) * Polyethylene Glycol 3350 (By mouth) (Mozambican) * Laxative, Stimulant (By mouth) (Mozambican) documented in this encounter Medications at Time [...] (mL) 09/02/22 0701 - 09/02/22 1900 09/02/22 190 - 09/03/22 0700 09/03/22 0701 - 09/03/22 [...] Daily with dinner --- Neurosurgery Chief C, [phone] * Armani Jimenez M.D., Ph.D. - 09/03/2022 [...] 09/03/2022 0245 Gross per 24 hour Intake 1990 ml Output 351 ml Net 1639 ml Output by Drain (mL) 09/01/22 0701 - 09/01/22 1900 09/01/22 190 - 09/02/22 0700 09/02/22 0701 - 09/02/22 1900 09/02/22 190 - 09/03/22 [...] 8 hours scheduled --- Neurosurgery Chief C, [phone] * Amaris Pride PLuz, D.P.T. - 09/02/2022 10:52 AM CDT Physical Therapy Inpatient Treatment Note SUBJECTIVE Patient's Name: Gladys Zamarripa Referring/Attending: Matt Zheng M.D. Medical Diagnosis: Stenosis Spinal [M48.00] [...] needs met and questions answered. Outcome Measures -[facility] Inpatient Short Form: -[facility] Basic Mobility (V.2) How much help [...] 3-5 steps with a railing?: A Little AM-[facility] Basic Mobility (V.2) Raw Score: 18 -[facility] Basic Mobility (V.2) Standardized Score: 41.05 Interpretation: Clinicians answer the -[facility] Inpatient Short Form based on observed [...] Time (min): 17 min Amaris Pride P.T., D.P.T. * Aixa Gusman D.T.R. - 09/02/2022 10:45 AM CDT Patient was assessed and determined to be nutritionally stable. Clinical nutrition will sign off but will continue to screen per departmental guidelines. Please reconsult for any questions/concerns regarding patient's nutritional status. For questions about patient's nutritional care please contact pager [phone] on weekdays or weekends/holidays. * Debbie Person O.T. - 09/02/2022 9:02 AM CDT Occupational Therapy Acute Hospital Inpatient Treatment SUBJECTIVE Patient's Name: Gladys Zamarripa Referring/Attending Provider: Matt Zheng M.D. 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 female who was admitted to [facility] in [place] on 08/31/2022 for Stenosis Spinal [M48.00] Spinal [...] Instructed patient in log roll technique, provided uaun-if-wshe verbal cues for sequencing. Patient required no [...] patient on care for back and neck (EX0592). Provided visual and verbaldemonstration of techniques to [...] Handouts provided:Caring for Your Back and Neck In4532 Team Communication:The patient's status was discussed and the following coordination of care occurred with the: RN PT Patient Disposition at the end of Treatment: Patient was left in bed at end of session with call light in reach, all needs met and questions answered. Outcome Measures AM-PAC Inpatient Short Form: Putting on and [...] Standardized Score: 51.12 Interpretation: Clinicians answer the -[facility] Inpatient Short Form based on observed patient [...] Intake/Output Summary (Last 24 hours) at 09/02/2022 05 Last data filed at 09/02/2022 0438 Gross [...] Min:36.7 ??C, Max:37.1 ??C Last BM Date: (CIVIL ESTIMATOR) Exam: AOx3. Full strength in BUE and BLE. Sensation grossly intact. Negative Pardo's and Babinski. Labs: Recent Labs 09/01/22 0423 WBC 4.7 HGB 8.0 L HCT 23.8 L PLT 107 L Recent Labs 09/01/22 0423 08/31/22 1513 NA 130 L 132 L [...] 8 hours scheduled --- Neurosurgery Chief C, [phone] * Stu Hahn M.D. - 09/01/2022 9:25 [...] patient's ionized calcium was normal. The patient's ne urological examination is reassuring at this time. We will plan to mobilize the patient and continue drains in place with antibiotic prophylaxis at this time. We will obtain an LSO before mobilization of the patient. The patient is to wear this brace for 6 weeks and we will discuss further recommendations and management at her 6 week postoperative follow-up. We will initiate DVT chemoprophylaxis on postoperative day 2. We will obtain standing lumbar radiographs as the patient's postoperative baseline. We will consult our colleagues in Physical Medicine Rehabilitation for their assessment and r ecommendations regarding the patient's mobility. If you have any questions or concerns please contact; Neurosurgery Chief C, [phone]. * Armani Jimenez M.D., Ph.D. - 09/01/2022 [...] 8 hours scheduled --- Neurosurgery Chief C, [phone] * Lm Johnson, R.Ph. - 08/31/2022 8:18 [...] from 08/22/2022 in Preoperative Evaluation Center in [place], [place] DASI Total Score 16.2 Estimated V02 [...] symptoms. Patient was instructed to discontinue all icpi-fnc-hhcssls vitamins and supplements, aspirin and NSAID containing [...] PATIENT EDUCATION: Reviewed Checklist for Surgical Patients [id number] rev 0920. Written and verbal instructions given [...] SUBJECTIVE Patient's Name: Gladys Zamarripa Referring/Attending Provider: aMtt Zheng M.D. Medical Diagnosis: Stenosis Spinal [M48.00] [...] L3/4, L4/5.; Surgeon: Matt Zheng M.D.; Location: [facility] OR History of Present Illness: Patient is a pleasant 72-year-old female postop day 1 following L3-S1 Fusion, TLIF at L3/4, L4/[address] 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 Outcome Measures [facility] Inpatient Short Form: -[facility] Basic Mobility (V.2) How much help [...] 3-5 steps with a railing?: A Lot -[facility] Basic Mobility (V.2) Raw Score: 17 -[facility] Basic Mobility (V.2) Standardized Score: 39.67 Interpretation: Clinicians answer the -[facility] Inpatient Short Form based on observed [...] - 09/01/2022 2:12 PM CDT Occupational Therapy [facility] Inpatient Evaluation/Treatment SUBJECTIVE Patient's Name: Gladys Zamarripa Referring/Attending Provider: Matt Zheng M.D. Medical Diagnosis: Stenosis Spinal [M48.00] [...] 72 y.o. 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 Interests: crossword puzzles; read; TV; talk with friends; go out to eat Prior Mobility/Functional Transfers Level of [place]: Modified independent Previous Transfer/Mobility Assistance Comments: intermittent [...] to assist Home Equipment Home Adaptive Equipment: Extractor Operator Solvent Process Gait Devices Owned: Front-wheeled walker, Four-wheeled walker, [...] Delivery: Assessed, Educated LE Dressing Adaptive Equipment: Extractor Operator Solvent Process LE Dressing Items Included: Socks LE Dressing Level of Assistance: Supervision/Set-up, Modified independent LE Dressing Comments: Facilitated patient donning/doffing hospital socks in bedside chair, she demonstrates ability to complete figure four positioning with good posture while sitting unsupported. She reports ordering a spout liner helper already. Educated on completing all dressing tasks [...] needs met and questions answered. Outcome Measures [facility] Inpatient Short Form: Putting on and taking [...] Standardized Score: 44.27 Interpretation: Clinicians answer the -[facility] Inpatient Short Form based on observed [...] for discharge. PIV removed. Medications sent to [facility] and will be picked up by [...] Stenosis Spinal Post-op Diagnosis Stenosis Spinal A assistant sales manager actively participated and was necessary for one [...] pause was completed. We then obtained a EidoSearch O-arm spin computed tomography scan intraoperatively, and registered the ZocDoc navigation system. We then placed the screws as guided by the navigation systemin L3, L4, L5 bilateral pedicles, tricortical fixation at the S1 ala bilaterally. A check spin was p erformed with the Elderscantronic O-arm. This demonstrated satisfactory positioning of instrumentation. We then turned our attention to the laminectomy decompression. Using the raudel dmitri and EidoSearchRex high speed drill, troughs were cut along [...] the skin. Stu Hahn M.D. Cosigned by Matt Zheng M.D. at 09/01/2022 2:01 PM CDT [...] have questions. Thank you, Kinsey Joe R.N., [facility] Clinical Documentation Casino Change Attendant Query created by: Kinsey Joe R.N., [facility] 09/05/2022 07:31 AM CDT </LCI> * [...] -09/02: 9.1 g/dL -09/04: 8.0 g/dL *08/31 ALLY Op Note: Estimated Blood Loss 1550 mL *09/01 LALY PN (Spear): Drain output: 375 cc over the past [...] have questions. Thank you, Kinsey Joe R.N., [facility] Clinical Documentation Casino Change Attendant Query created by: Kinsey Joe R.N., [facility] 09/05/2022 07:27 AM CDT </LCI> * Hospital [...] (Latest Contact Info) Description 05/29/2024 12:15 PM CLINICAL RESEARCH SPECIALIST Clinical Communication Virtual Review in [address] [phone] 05/31/2024 11:00 AM CLINICAL RESEARCH SPECIALIST Appointment Department of Laboratory Medicine and Pathology, [facility], in [place], [place] [address] [place] [phone] Patricia Parker APRN, C.N.P., D.N.P. [address] [place] [phone] 05/31/2024 2:00 PM CLINICAL RESEARCH SPECIALIST Comprehensive Visit Preoperative Evaluation Center in [place], [place] [address] [place] [phone] Arianna Jeffries M.D. [address] [place] [phone] 05/31/2024 2:45 PM CLINICAL RESEARCH SPECIALIST Comprehensive Visit Preoperative Evaluation Center in [place], [place] [address] [place] [phone] Chris Moreno APRN, C.N.P., M.S. [address] [place] [phone] 06/03/2024 8:15 AM CLINICAL RESEARCH SPECIALIST Hospital Encounter Post Anesthesia Care Unit in [place] [id number] [place] [phone] Tahir Moore M.D. [address] [place] [phone] 06/03/2024 8:15 AM CLINICAL RESEARCH SPECIALIST - 06/03/2024 2:12 PM CLINICAL RESEARCH SPECIALIST Surgery RST ROMB MAIN OR [address] [place] [phone] Tahir Moore M.D. [address] [place] [phone] C1-2 fusion 07/02/2024 11:00 AM CLINICAL RESEARCH SPECIALIST Procedure visit Division of Pain Medicine in [place], [place] [address] [place] [phone] Adam Barlow M.D. [address] [place] [phone] Pending Results Name Type Priority Associated Diagnoses [...] WITH FUSION Stenosis Spinal 06/03/2024 8:15 AM CLINICAL RESEARCH SPECIALIST documented as of this encounter Procedures [...] Blood Cells : (09/04/2022 1:11 PM CDT) Calvin Escalera M.D., Ph.D. BLOOD TRANSFUSION ORDERA BLES Final Result * Transfuse Red Blood Cells : , 1 Units (09/04/2022 1:11 PM CDT) Calvin Escalera M.D., Ph.D. BLOOD TRANSFUSION ORDERA BLES Final Result * Type and Screen (with reflex Antibody ID) (09/04/2022 9:10 AM CDT) [facility] ABORh A Pos Not applicable 09/04/2022 9:33 AM CDT STRM Antibody Screen Negative Negative 09/04/2022 9:46 AM CDT STRM Type & Screen Expiration 09/07/2022 23:59 09/04/2022 9:33 AM CDT STRM Testing Location [place] DEFAULT 09/04/2022 9:14 AM CDT STRM Blood (Blood, Venous) 09/04/2022 9:10 AM CDT 09/04/2022 9:14 AM CDT Calvin Escalera M.D., Ph.D. LAB BLOOD BANK TEST ORDE BOBO Final Result [facility] [address] [place] [address], [facility] [address] [place] [address] * (ABNORMAL) CBC without Differential (09/04/2022 4:28 AM CDT) [facility] Hemoglobin 8.0(L) 11.6 - 15.0 g/dL 09/04/2022 [...] Ph.D. LAB BLOOD ADD-ON Final R esult [facility] [address] [place] [address] * (ABNORMAL) Sodium (09/02/2022 2:09 PM CDT) Pathologist [facility] Sodium, S 131(L) 135 - 145 mmol/L 09/02/2022 3:08 PM CDT DTL Blood (Blood, Venous) 09/02/2022 2:09 PM CDT 09/02/2022 2:51 PM CDT us Reina Zamorano P.A.-C. LAB BLOOD ADD-ON Final Result Performing Organization Address City/[facility]/ZIP Co de Phone Number [facility] [address] [place] [address] * DX Lumbar Spine 2-3 Views (09/02/2022 [...] L2-S1 posterior fusion with interbody spacers.Surgical drains. us Armani Jimenez M.D., Ph.D. IMG DIAGNOSTIC COLETTE [...] 4:53 AM CDT 09/02/2022 5:51 AM CDT us Juliana SANTILLAN P.A.-C., M.P.H. LAB BLOOD ADD-ON Final Result Performing Organization Address [facility]/ZIP Co de Phone Number [facility] [address] [place] [address], [facility] DTL [facility] [address] [place] [address] * (ABNORMAL) CBC without Differential (09/02/2022 4:53 AM CDT) [facility] Hemoglobin 9.1(L) 11.6 - 15.0 g/dL 09/02/2022 [...] 4:53 AM CDT 09/02/2022 5:36 AM CDT us Juliana SANTILLAN P.A.-C., M.P.H. LAB BLOOD ADD-ON Final Result Performing Organization Address [facility]/ZIP Co de Phone Number [facility] [address] [place] [address], [facility] DTL [facility] [address] [place] [address] * Transfuse Red Blood Cells : (09/01/2022 10:58 PM CDT) Juliana HSU P.A.-C., M.P.H. BLOOD TRANSFUSION ORDERABLES Final Result * Transfuse Red Blood Cells : , 1 Units (09/01/2022 10:58 PM CDT) Juliana HSU P.A.-C., M.P.H. BLOOD TRANSFUSION ORDERABLES Final Result * Calcium, Ionized (09/01/2022 1:33 PM CDT) Calcium, Ionized, S 5.21 4.57 - 5.43 mg/dL 09/01/2022 2:21 PM CDT DTL Comment: ----ADDITIONAL INFORMATION---- This test has been modified from the show operations supervisor's instructions. Its performance characteristics were determined by [facility] in a manner consistent with CLIA requirements. This test has not been cleared or approved by the U.S. Food and Drug Administration. pH for Ionized Calcium 7.37 7.35 - 7.48 09/01/2022 2:21 PM CDT DTL Blood (Blood, Venous) 09/01/2022 1:33 PM CDT 09/01/2022 2:10 PM CDT Juliana SANTILLAN P.A.-C., M.P.H. LAB BLOOD NON ADD-ON Final Result [facility] [address] [place] [address], [place] [facility] [address] [place] [address] * (ABNORMAL) Basic Metabolic Panel (09/01/2022 4:23 [...] Ph.D. LAB BLOOD ADD-ON F inal Result [facility] [address] [place] [address], [facility] [address] [place] [address] * (ABNORMAL) CBC with Differential, Blood (09/01/2022 4:23 AM CDT) Hemoglobin 8.0(L) 11.6 - 15.0 g/dL 09/01/2022 [...] 4:23 AM CDT 09/01/2022 5:09 AM CDT Armani Jimenez M.D., Ph.D. LAB BLOOD ADD-ON F inal Result [facility] [address] [place] [address], [facility] [address] [place] [address] * (ABNORMAL) Hemoglobin (08/31/2022 8:12 PM CDT) [facility] Hemoglobin 8.6(L) 11.6 - 15.0 g/dL 08/31/2022 8:21 PM CDT STMA Blood (Blood, Venous) 08/31/2022 8:12 PM CDT 08/31/2022 8:19 PM CDT Bandar Lee M.D. LAB BLOOD ADD-ON Final Resul t Performing Organization Address City/[facility] Co de Phone Number [facility] [address] [place] [address], [facility] STMA [facility] [address] [place] [address] * FL OARM (08/31/2022 6:12 PM CDT) Narrative 152 HOS LOS RST - 08/31/2022 6:14 PM CDT This exam does not require a radiologist review or interpretation. Please refer to the patient's medical record on this date for clinical details. Matt Zheng M.D. IMG FLUOROSCOPY PROCEDURES Fi nal Result Performing Organization Address [facility] Co de Phone Number 152 HOS LOS RST * FL Fluoro Less Than 1 Hour (08/31/2022 3:48 PM CDT) Narrative 152 HOS LOS RST - 08/31/2022 3:52 PM CDT This exam does not require a radiologist review or interpretation. Please refer to the patient's medical record on this date for clinical details. Matt Zheng M.D. IMG FLUOROSCOPY PROCEDURES Fi nal Result Performing Organization Address City/[facility] Co de Phone Number 152 HOS LOS RST * Patient Status (08/31/2022 3:13 PM CDT) Temperature 36.8 37.0 deg C 08/31/2022 3:13 PM CDT ST[facility] FIO2 0.46 0.21=AIR 08/31/2022 3:13 PM CDT [facility] Blood 08/31/2022 3:13 PM CDT 08/31/2022 3:13 PM CDT Smooth Goff RABBIT DRESSER, ORANGE PEEL OPERATOR LAB BLOOD NON ADD-ON F inal Result Performing Organization Address City/[facility]/ZIP Co de Phone Number [facility] [address] [place] [address], [facility] 200 [place] [address] * Glucose, Whole Blood (08/31/2022 3:13 PM CDT) Glucose 99 70 - 140 mg/dL 08/31/2022 3:16 PM CDT ST[facility] Blood (Blood, Arterial Line) 08/31/2022 3:13 PM CDT 08/31/2022 3:13 PM CDT Álvaro Mandujano M.D. LAB BLOOD ADD-ON Final R esult Performing Organization Address City/[facility] Co de Phone Number [facility] [address] [place], [place] [phone] [place] [address] 200 [place] [address] * Potassium, Blood (08/31/2022 3:13 PM CDT) Potassium, B 4.2 3.6 - 5.2 mmol/L 08/31/2022 3:16 PM CDT [facility] Blood (Blood, Arterial Line) 08/31/2022 3:13 PM CDT 08/31/2022 3:13 PM CDT Álvaro Mandujano M.D. LAB BLOOD NON ADD-ON Fin al Result Performing Organization Address City/[facility]/ZIP Co de Phone Number [facility] [address] [place] [address], [facility] 200 [place] [address] * (ABNORMAL) Sodium, B (08/31/2022 3:13 PM CDT) Sodium, B 132(L) 135 - 145 mmol/L 08/31/2022 3:16 PM CDT [facility] Blood (Blood, Arterial Line) 08/31/2022 3:13 PM CDT 08/31/2022 3:13 PM CDT us Álvaro Mandujano M.D. LAB BLOOD NON ADD-ON Fin al Result Performing Organization Address [facility]/ZIP Co de Phone Number [facility] [address] [place] [address], [facility] [address] [place] [address] * (ABNORMAL) Calcium, Ionized (08/31/2022 3:13 PM CDT) Calcium, Ionized, B 5.91(H) 4.65 - 5.30 mg/dL 08/31/2022 3:16 PM CDT ST[facility] Blood (Blood, Arterial Line) 08/31/2022 3:13 PM CDT 08/31/2022 3:13 PM CDT Álvaro Mandujano M.D. LAB BLOOD NON ADD-ON Fin al Result Performing Organization Address [facility] Co de Phone Number [facility] [address] [place], [place] [phone] [place] [address] 200 [place] [address] * (ABNORMAL) Blood Gas with Coox, Arterial [...] PM CDT 08/31/2022 3:13 PM CDT us Álvaro Mandujano M.D. LAB BLOOD NON ADD-ON Fin al Result Performing Organization Address City/[facility] Co de Phone Number [facility] [address] [place] [address] * Transfuse Red Blood Cells : (08/31/2022 2:29 PM CDT) us Kayla Rolon M.D. BLOOD TRANSFUSION ORDERABLES Final Result * Patient Status (08/31/2022 1:41 PM CDT) [facility] Temperature 36.4 37.0 deg C 08/31/2022 1:41 PM CDT STMA FIO2 0.46 0.21=AIR 08/31/2022 1:41 PM CDT STMA Blood 08/31/2022 1:41 PM CDT 08/31/2022 1:41 PM CDT us Smooth Goff RABBIT DRESSER, ORANGE PEEL OPERATOR LAB BLOOD NON ADD-ON F inal Result Performing Organization Address City/[facility]/ZIP Co de Phone Number [facility] [address] [place] [address] * Potassium, Blood (08/31/2022 1:41 PM CDT) Potassium, B 4.2 3.6 - 5.2 mmol/L 08/31/2022 1:44 PM CDT STMA Blood (Blood, Arterial Line) 08/31/2022 1:41 PM CDT 08/31/2022 1:41 PM CDT us Kayla Rolon M.D. LAB BLOOD NON ADD-ON Final R esult Performing Organization Address City/[facility]/ZIP Co de Phone Number [facility] [address] [place] [address], [facility] [address] [place] [address] * (ABNORMAL) Sodium, B (08/31/2022 1:41 PM CDT) Sodium, B 132(L) 135 - 145 mmol/L 08/31/2022 1:44 PM CDT STMA Blood (Blood, Arterial Line) 08/31/2022 1:41 PM CDT 08/31/2022 1:41 PM CDT us Kayla Rolon M.D. LAB BLOOD NON ADD-ON Final R esult Performing Organization Address [facility] Co de Phone Number [facility] [address] [place] [address], [facility] [address] [place] [address] * (ABNORMAL) Calcium, Ionized (08/31/2022 1:41 PM CDT) Calcium, Ionized, B 4.29(L) 4.65 - 5.30 mg/dL 08/31/2022 1:44 PM CDT STMA Blood (Blood, Arterial Line) 08/31/2022 1:41 PM CDT 08/31/2022 1:41 PM CDT us Kayla Rolon M.D. LAB BLOOD NON ADD-ON Final R esult Performing Organization Address City/[facility]/ZIP Co de Phone Number [facility] [address] [place] [address], [facility] [address] [place] [address] * (ABNORMAL) Blood Gas with Coox, Arterial (08/31/2022 1:41 PM CDT) Pathologist [facility] pO2 226(H) 83 - 108 mm Hg [...] LAB BLOOD NON ADD-ON Final R esult [facility] [address] [place] [address], [facility] [address] [place] [address] * (ABNORMAL) Platelet Count (08/31/2022 1:40 PM CDT) [facility] Platelet Count 114(L) 157 - 371 x10(9)/L 08/31/2022 1:46 PM CDT STMA Blood (Blood, Arterial Line) 08/31/2022 1:40 PM CDT 08/31/2022 1:40 PM CDT Kayla Rolon M.D. LAB BLOOD ADD-ON Final Resul t Performing Organization Address [facility] de Phone Number [facility] [address] [place], [place] [phone] [place] [address] [address] [place] [address] * Prothrombin Time (PT) (08/31/2022 1:40 PM CDT) Prothrombin Time, P 11.4 9.4 - 12.5 sec 08/31/2022 1:52 PM CDT STMA INR 1.0 0.9 - 1.1 08/31/2022 1:52 PM CDT STMA Comment: ----ADDITIONAL INFORMATION---- Standard intensity warfarin therapeutic range: 2.0 to 3.0 High intensity warfarin therapeutic range: 2.5 to 3.5 Blood (Blood, Arterial Line) 08/31/2022 1:40 PM CDT 08/31/2022 1:40 PM CDT Kayla Rolon M.D. LAB BLOOD ADD-ON Final Resul t Performing Organization Address [facility] de Phone Number [facility] [address] [place] [address], [facility] [address] [place] [address] * Fibrinogen (08/31/2022 1:40 PM CDT) Fibrinogen, P 208 200 - 393 mg/dL 08/31/2022 1:52 PM CDT STMA Blood (Blood, Arterial Line) 08/31/2022 1:40 PM CDT 08/31/2022 1:40 PM CDT us Kayla B Pepper M.D. LAB BLOOD ADD-ON Final Resul t Performing Organization Address City/[facility] Co de Phone Number [facility] [address] [place] [address], [facility] [address] [place] [address] * APTT (Activated Partial Thromboplastin Time) (08/31/2022 1:40 PM CDT) Activated Partial Thrombopl Time, P 25 25 - 37 sec 08/31/2022 1:54 PM CDT STMA Blood (Blood, Arterial Line) 08/31/2022 1:40 PM CDT 08/31/2022 1:40 PM CDT Result Nicolas Rolon M.D. LAB BLOOD ADD-ON Final Resul t Performing Organization Address [facility] Co de Phone Number [facility] [address] [place] [address], [facility] [address] [place] [address] * Transfuse Pooled Cryoprecipitate: (08/31/2022 1:26 PM [...] CDT 08/31/2022 12:17 PM CDT Casper Heart RABBIT DRESSER, ORANGE PEEL OPERATOR, DNAP, M.S. LAB BLOOD NON ADD-ON Final Result Performing Organization Address City/[facility]/ZIP Co de Phone Number [facility] [address] [place] [address] * Lactate, B - Intra-op (08/31/2022 12:17 PM CDT) Lactate, B 1.3 0.5 - 2.2 mmol/L 08/31/2022 12:19 PM CDT STMA Blood (Blood, Venous) 08/31/2022 12:17 PM CDT 08/31/2022 12:17 PM CDT Kayla Rolon M.D. LAB BLOOD NON ADD-ON Final R esult Performing Organization Address [facility] Co de Phone Number [facility] [address] [place], [place] [phone] [place] [address] [address] [place] [address] * Glucose, Whole Blood (08/31/2022 12:17 PM CDT) Glucose 116 70 - 140 mg/dL 08/31/2022 12:19 PM CDT STMA Blood (Blood, Arterial Line) 08/31/2022 12:17 PM CDT 08/31/2022 12:17 PM CDT Kayla Rolon M.D. LAB BLOOD ADD-ON Final Resul t Performing Organization Address City/[facility] Co de Phone Number [facility] [address] [place], [place] [phone] [place] [address] 200 [place] [address] * Potassium, Blood (08/31/2022 12:17 PM CDT) Potassium, B 4.4 3.6 - 5.2 mmol/L 08/31/2022 12:19 PM CDT STMA Blood (Blood, Arterial Line) 08/31/2022 12:17 PM CDT 08/31/2022 12:17 PM CDT us Kayla Rolon M.D. LAB BLOOD NON ADD-ON Final R esult [facility] [address] [place] [address], [facility] [address] [place] [address] * (ABNORMAL) Sodium, B (08/31/2022 12:17 PM CDT) Sodium, B 130(L) 135 - 145 mmol/L 08/31/2022 12:19 PM CDT [facility] Blood (Blood, Arterial Line) 08/31/2022 12:17 PM CDT 08/31/2022 12:17 PM CDT us Kayla Rolon M.D. LAB BLOOD NON ADD-ON Final R esult [facility] [address] [place] [address], [address] [address] * Calcium, Ionized (08/31/2022 12:17 PM CDT) Calcium, Ionized, B 4.91 4.65 - 5.30 mg/dL 08/31/2022 12:19 PM CDT STMA Blood (Blood, Arterial Line) 08/31/2022 12:17 PM CDT 08/31/2022 12:17 PM CDT us Kayla BaigD. LAB BLOOD NON ADD-ON Final R esult Performing Organization Address City/[facility]/ZIP Co de Phone Number [facility] [address] [place] [address], [facility] [address] [place] [address] * (ABNORMAL) Blood Gas with Coox, Arterial (08/31/2022 12:17 PM CDT) [facility] Signature pO2 223(H) 83 - 108 [...] LAB BLOOD NON ADD-ON Final R esult [facility] [address] [place] [address], [facility] [address] [place] [address] * (ABNORMAL) Platelet Count (08/31/2022 12:16 PM CDT) Platelet Count 101(L) 157 - 371 x10(9)/L 08/31/2022 12:24 PM CDT [facility] Blood (Blood, Arterial Line) 08/31/2022 12:16 PM CDT 08/31/2022 12:16 PM CDT us Kayla Rolon M.D. LAB BLOOD ADD-ON Final Resul t Performing Organization Address [facility] Co de Phone Number [facility] [address] [place] [address], [facility] [address] [place] [address] * Prothrombin Time (PT) (08/31/2022 12:16 PM CDT) Prothrombin Time, P 11.1 9.4 - 12.5 sec 08/31/2022 12:33 PM CDT [facility] INR 1.0 0.9 - 1.1 08/31/2022 12:33 PM CDT [facility] Comment: ----ADDITIONAL INFORMATION---- Standard intensity warfarin therapeutic range: 2.0 to 3.0 High intensity warfarin therapeutic range: 2.5 to 3.5 Blood (Blood, Arterial Line) 08/31/2022 12:16 PM CDT 08/31/2022 12:16 PM CDT us Kayla Rolon M.D. LAB BLOOD ADD-ON Final Resul t Performing Organization Address [facility] Co de Phone Number [facility] [address] [place] [address], [facility] [address] [place] [address] * (ABNORMAL) Fibrinogen (08/31/2022 12:16 PM CDT) Fibrinogen, P 160(L) 200 - 393 mg/dL 08/31/2022 12:32 PM CDT [facility] Blood (Blood, Arterial Line) 08/31/2022 12:16 PM CDT 08/31/2022 12:16 PM CDT us Kayla Rolon M.D. LAB BLOOD ADD-ON Final Resul t Performing Organization Address City/[facility]/ZIP Co de Phone Number [facility] [address] [place] [address] * APTT (Activated Partial Thromboplastin Time) (08/31/2022 12:16 PM CDT) Activated Partial Thrombopl Time, P 27 25 - 37 sec 08/31/2022 12:35 PM CDT STMA Blood (Blood, Arterial Line) 08/31/2022 12:16 PM CDT 08/31/2022 12:16 PM CDT us Kayla Rolon M.D. LAB BLOOD ADD-ON Final Resul t Performing Organization Address [facility] Co de Phone Number [facility] [address] [place] [address] * Transfuse Red Blood Cells : (08/31/2022 11:58 AM CDT) us Kayla Rolon M.D. BLOOD TRANSFUSION ORDERABLES Final Result * Patient Status (08/31/2022 11:24 AM CDT) Temperature 35.4 37.0 deg C 08/31/2022 11:24 AM CDT STMA FIO2 0.47 0.21=AIR 08/31/2022 11:24 AM CDT STMA Blood 08/31/2022 11:2 4 AM CDT 08/31/2022 11:24 AM CDT us Kamryn Meek APRN, ORANGE PEEL OPERATOR, DNAP LAB BLOOD NON ADD -ON Final Result [facility] [address] [place] [address], [facility] [address] [place] [address] * Lactate, B - Intra-op (08/31/2022 11:24 AM CDT) Lactate, B 0.8 0.5 - 2.2 mmol/L 08/31/2022 11:27 AM CDT STMA Blood (Blood, Venous) 08/31/2022 11:24 AM CDT 08/31/2022 11:24 AM CDT us Kayla Rolon M.D. LAB BLOOD NON ADD-ON Final R esult [facility] [address] [place], [place] [address] [address] [place] [address] * Glucose, Whole Blood (08/31/2022 11:24 AM CDT) Glucose 103 70 - 140 mg/dL 08/31/2022 11:27 AM CDT [facility] Blood (Blood, Arterial Line) 08/31/2022 11:24 AM CDT 08/31/2022 11:24 AM CDT us Kayla Rolon M.D. LAB BLOOD ADD-ON Final Resul t [facility] [address] [place] [address], [facility] [address] [place] [address] * Potassium, Blood (08/31/2022 11:24 AM CDT) Potassium, B 3.9 3.6 - 5.2 mmol/L 08/31/2022 11:27 AM CDT [facility]MA Blood (Blood, Arterial Line) 08/31/2022 11:24 AM CDT 08/31/2022 11:24 AM CDT us Kayla Rolon M.D. LAB BLOOD NON ADD-ON Final R esult [facility] [address] [place], [place] [phone] [place] [address] [address] [place] [address] * (ABNORMAL) Sodium, B (08/31/2022 11:24 AM CDT) Pathologist [facility] Sodium, B 130(L) 135 - 145 mmol/L 08/31/2022 11:27 AM CDT [facility] Blood (Blood, Arterial Line) 08/31/2022 11:24 AM CDT 08/31/2022 11:24 AM CDT us Kayla Rolon M.D. LAB BLOOD NON ADD-ON Final R esult [facility] [address] [place] [address], [facility] [address] [place] [address] * Calcium, Ionized (08/31/2022 11:24 AM CDT) [facility] Calcium, Ionized, B 4.95 4.65 - 5.30 mg/dL 08/31/2022 11:27 AM CDT [facility] Blood (Blood, Arterial Line) 08/31/2022 11:24 AM CDT 08/31/2022 11:24 AM CDT us Kayla Rolon M.D. LAB BLOOD NON ADD-ON Final R esult [facility] [address] [place], [place] [phone] [place] [address] [address] [place] [address] * (ABNORMAL) Blood Gas with Coox, Arterial [...] LAB BLOOD NON ADD-ON Final R esult [facility] [address] [place] [address], [facility] [address] [place] [address] * Dx Spine 1 View (08/31/2022 10:01 AM CDT) Anatomical Region Laterality Modality Spine, Musculoskeletal RST L OS, Neuroradiology Palma CARRION LOS N/A Digital Radiography 08/31/2022 10:0 2 AM CDT Impressions 08/31/2022 10:02 AM CDT Radiograph of the lumbar spine for intraoperative localization. Narrative 08/31/2022 10:02 AM CDT EXAM: DX SPINE 1 VIEW Procedure Note Yoseph Briones M.D. - 08/31/2022 EXAM: DX SPINE 1 VIEW IMPRESSION: Radiograph of the lumbar spine for intraoperative localization. us Armani Jimenez M.D., Ph.D. IMG DIAGNOSTIC COLETTE GING PROCEDURES Final Result * IONM - EMG (08/31/2022 7:10 AM CDT) 08/31/2022 8:00 AM CDT Narrative [facility] EMG - 08/31/2022 3:21 PM CDT Table formatting from the original result was not included. 31-Aug-2022 Intraoperative Monitoring Amended Report Study Number: 1 EMG Anesthesia Assistant: Kimani Schumacher . 127 or [phone] Referred by: MATT ZHENG (127 or [phone]) Referred for: Referral Code: 1958 RX: 1958 [...] the interpretation. Letty Ochoa/Bebe Schumacher (127 or [phone])/[facility] Surgery Staff Minutes Start-DateTime End-DateTime Remote Exclusive (1:1) Supervision [phone] 08/31/2022 08:47 AM CLINICAL RESEARCH SPECIALIST 08/31/2022 15:07 PM CLINICAL RESEARCH SPECIALIST Total Monitoring Time: 380 This interpretation has been electronically signed: Kimani Schumacher M.D. at 08/31/2022 3:22:31 PM CDT Procedure Note Kimani Schumacher M.D. - 08/31/2022 31-Aug-2022 Intraoperative Monitoring AmendedReport Study Number: 1 EMG Anesthesia Assistant: Kimani Schumacher . [phone] or [phone] Referred by: MATT ZHENG (127 or [phone]) Referred for: Referral Code: 1958 RX: 1958 [...] [facility] CLINICAL INTERPRETATION: I have reviewed the findings of the examining physician and agree with the interpretation. Letty Ochoa/Bebe Schumacher (127 or [phone])/[facility] Surgery Staff Minutes Start-DateTime End-DateTime Remote Exclusive (1:1) Supervision [phone] 08/31/2022 08:47 AM CLINICAL RESEARCH SPECIALIST 315:07 PM CLINICAL RESEARCH SPECIALIST Total Monitoring Time: 380 This interpretation has been electronically signed: Kimani Schumacher M.D. at 08/31/2022 3:22:31 PM CDT Matt Zheng M.D. NEUROLOGY ORDERABLES Edited R esult - Final EMG documented in this encounter Visit Diagnoses Diagnosis Stenosis Spinal- Primary Stenosis Spinal Spinal Stenosis Lumbar Region Without Neurogenic Claudication Decline Functional Status [R53.81 (ICD-10-CM)] Spinal Stenosis Lumbar Region Without Neurogenic Claudication Stenosis Spinal Stenosis Spinal documented in this encounter Admitting [...] 4-6 of 10, Starting on 09/03/22 at 0307 Given 09/04/2022 11:49 AM CDT 1,000 mg Given 09/04/2022 3:46 AM CDT 1,000 mg Given 09/03/2022 9:48 PM CDT 1,000 mg allopurinol tablet 150 mg (ZYLOPRIM) 150 mg, oral, Daily, First dose on Mon09/01/22 at 0900 Given 09/04/2022 8:06 AM CDT 150 mg Given 09/03/2022 8:26 AM CDT 150 mg Given 09/02/2022 8:22 AM CDT 150 mg atorvastatin tablet 20 mg (LIPITOR) 20 mg, oral, Daily, First dose (after last modification) on Mon09/01/22 at 0900 Given 09/04/2022 8:06 AM CDT 20 mg Given 09/03/2022 8:26 AM CDT 20 mg Given 09/02/2022 8:22 AM CDT 20 mg bisacodyL suppository 10 mg (DULCOLAX) 10 mg, rectal, Daily PRN, constipation, Starting on Mon08/31/22 at 1758 BUPivacaine liposome (PF) 20 mL, BUPivacaine 0.5 % (5 mg/mL) 30 mL 50 mL injection As needed, Starting on Mon08/31/22 at 1506, Intra-Op Given 08/31/2022 3:06 PM CDT 50 mL buPROPion XL 24 hr tablet 150 mg (WELLBUTRIN XL) 150 mg, oral, Daily, First dose on Mon09/01/22 at 0900, Swallow whole. Do NOT crush, [...] times daily with meals, First dose on Rust 09/03/22 at 2230 Given 09/04/2022 8:06 AM CDT 6.25 mg Given 09/03/2022 10:33 PM CDT 6.25 mg ceFAZolin 1 g in NaCl 0.9% irrigation pour bottle irrigation, Once in surgery, OR use only, Starting on Mon08/31/22 at 0709, For 1 dose, Intra-Op, Irrigation Use Only Refrigerate Given 08/31/2022 2:13 PM CDT 1,000 mL ceFAZolin in dextrose (iso osm) IVPB 2 g (ANCEF) 2 g, intravenous, at 200 mL/hr, Administer over 30 Minutes, Every 8 hours, First dose on Mon09/01/22 at 0000, Start within 8 hours of last IV dose., Drug Monitoring Program: Pharmacist to adjust medication dosing based on indication and drug clearance factors., Indications: Prophylaxis, surgicalIndications:Prophylaxis, surgical New Bag 09/04/2022 8:11 AM CDT 2 g 200 mL/hr New Bag 09/03/2022 11:00 PM CDT 2 g 200 mL/hr New Bag 09/03/2022 6:22 PM CDT 2 g 200 mL/hr gabapentin capsule 300 mg (NEURONTIN) 300 mg, [...] Between Units of Blood Products, Starting on Cyp[place] 09/04/22 at 0846, For 1 dose, Infuse at [...] at institution). oxyCODONE IR tablet 2.5 mg (ROXICODONE) 2.5 mg, oral, Every 4 hours PRN, moderate pain or score 4-6 of 10, Starting on 09/03/22 at 0900 oxyCODONE IR tablet 5 mg [...] Daily before morning meal, First dose on Shelley 09/01/22 at 0700, Swallow whole. Do NOT crush, [...] Given 09/01/2022 1:15 PM CDT 17 g povidone iodine 0.25% in NaCl 0.9% irrigation solution irrigation, Once in surgery, OR use only, Starting on Mon08/31/22 at 0709, For 1 dose, Intra-Op, IRRIGATION USE ONLY Given 08/31/2022 2:09 PM CDT 1,000 mL Back rivaroxaban tablet 20 mg (XARELTO) 20 mg, [...] Given 09/03/2022 6:21 PM CDT 2 g UNABLE TO FIND As needed, Starting on Mon08/31/22 at 1011, Intra-Op Given 08/31/2022 11:02 AM CDT 1 each Given 08/31/2022 10:11 AM CDT 1 each vancomycin powder As needed, Starting on Mon08/31/22 at 1435, Intra-Op Given 08/31/2022 2:35 PM CDT 1 g documented in this encounter Active and [...] order. 0422 (Given - Provider: Mustapha Campos R.N.)1032 (Given - Provider: Armani Roman R.N.)1516 (Given - Provider: Cindy Vicente R.N.)2118 (Given - Provider: Cindy Vicente R.N.) allopurinol tablet 150 mg (ZYLOPRIM) 150 mg, oral, Daily, First dose on Mon09/01/22 at 0900 0822 (Given - Provider: Armani Roman R.N.) 0826 (Given - Provider: Kylah Goff R.N.) 08 (Given - Provider: Terrie Pleitez R.N.) atorvastatin tablet 20 mg (LIPITOR) 20 mg, oral, Daily, First dose (after last modification) on Mon09/01/22 at 0900 0822 (Given - Provider: Armani Roman R.N.) 0826 (Given - Provider: Kylah Goff R.N.) 0806 (Given - Provider: Terrie Pleitez R.N.) buPROPion XL 24 hr tablet 150 mg (WELLBUTRIN XL) 150 mg, oral, Daily, First dose on Mon09/01/22 at 0900, Swallow whole. Do NOT crush, chew, or split tablet. 0823 (Given - Provider: Armani Roman R.N.) 08 (Given - Provider: Kylah Goff R.N.) 08 (Given - Provider: Terrie Pleitez R.N.) carvediloL tablet 6.25 mg (COREG) 6.25 mg, oral, 2 times daily with meals, First dose on Mon09/03/22 at 2230 2233 (Given - Provider: Tamela Vogt) 08 (Given - Provider: Terrie Pleitez R.N.) ceFAZolin in dextrose (iso osm) IVPB 2 g (ANCEF) 2 g, intravenous, at 200 mL/hr, Administer over 30 Minutes, Every 8 hours, First dose on Mon09/01/22 at 0000, Start within 8 hours of [...] Provider: Tamela Vogt)1425 (Given - Provider: Terrie lPeitez R.N.) pantoprazole DR tablet 40 mg (PROTONIX) 40 mg, oral, Daily before morning meal, First dose on Mon09/01/22 at 0700, Swallow whole. Do NOT crush, chew, or split tablet. 0607 (Given - Provider: Kathy JonesNHomero) 0608 (Given - Provider: Debbie Acosta R.N.) [...] Kylah Goff R.N. - Reason: Patient/family refused) 08 (Not Given - Provider: Terrie Pleitez R.N. [...] diarrhea. 0822 (Given - Provider: Armani Roman R.N.)2027 (Given - Provider: Cindy Vicente RJose) 0826 (Not Given - Provider: Kylah Goff [...] Roman R.N.)1201 (Given - Provider: Armani Roman RHomeroNHomero)1618 (Given - Provider: Cindy Vicente RHomeroNHomero) 0826 (Given - Provider: Kylah Goff R.N.)1421 [...] Provider: Debbie Acosta R.N.)0826 (Given - Provider: Kylah Goff R.N.)1527 (Given - Provider: Rissa Miller RHomeroNHomero)2148 (Given - Provider: Tamela Vogt) 0346 (Given [...] 0949 (See Alternative - Provider: Lauro Hoffman R.N.)1422 (See Alternative - Provider: Kylah Goff R.N.)1821 (See Alternative - Provider: Kylah Goff R.N.)2234 (See Alternative - Provider: Tamela Vogt) 0216 (See Alternative - Provider: Tamela Vogt)0622 (See Alternative - Provider: Tamela Vogt)1034 (See Alternative - Provider: Marry De Guzman R.N.)1424 (See Alternative - Provider: Terrie Pleitez RHomeroN.) oxyCODONE IR tablet 5 mg (ROXICODONE) (CANCELED) 5 mg, oral, Every 4 hours PRN, moderate pain or score 4-6 of 10, Starting on Mon08/31/22 at 1758 0208 (Given - Provider: Mustapha Campos RHomeroN.)0607 (Given - Provider: Mustapha Campos RSofia.)0822 (Given - Provider: Armani Roman R.N.)1200 (Given - Provider: Armani Roman R.N.)1610 (Given - Provider: Cindy Vicente R.N.)2029 [...] 0900 0949 (Given - Provider: Lauro Hoffman RHomeroN.)1422 (Given - Provider: Kylah Goff RHomeroN.)1821 (Given - Provider: Kylah Goff RHomeroN.)2234 (Given - Provider: Tamela Vogt) 0216 (Given [...] 0900 documented in this encounter Care Teams Director Of Casework Services Relationship Specialty Start Date End Date Elsewhere, Pcp PCP - General Internal Medicine 05/10/22 documented as of this encounter
--- OUTSIDE RECORDS SUMMARY | 2024-05-21 14:11 | XMS_ITS | Encounter Summary ---
Author Organization [facility] Address [address] [place] [address] Care Team Providers Care Recording Clerk Name Role Phone Elsewhere, Pcp Primary Care Provider Unavailabl e Encounter Details Date Type Department Care Team (Late st Contact Info) Description 06/08/2022 Clinical Communication Department of Neurologic Surgery in [place], [place] [address] [place] [phone] Stu Hahn M.D., M.B.A. Social History Tobacco [...] Sex Assigned at Female 05/11/2022 7:48 AM PRINCIPAL ADMINISTRATIVE CLERK Legal Sex Female 9:30 PM PRINCIPAL ADMINISTRATIVE CLERK Gender Identity Female 05/11/2022 7:48 AM PRINCIPAL ADMINISTRATIVE CLERK Sexual Orientation Straight 05/11/2022 7: 48 AM PRINCIPAL ADMINISTRATIVE CLERK documented as of this encounter Miscellaneous Notes * Telephone Encounter - Reinier Gibson R.N. - 06/10/2022 4:30 PM PRINCIPAL ADMINISTRATIVE CLERK Information Discussed I called Gladys to offer her August 31 as a surgical date with Dr. Hahn. She has accepted. I will get her listed for surgery. PLAN Disposition/Recommendation: recommended continue engagement in self-management activities Information/Education: patient/caller able to teach back Caller agreeable to plan of care: yes The following references were used: nursing clinical judgement and provider Dr. Hahn CIPAL ADMINISTRATIVE CLERK * Telephone Encounter - Olena Lawrence - 06/08/2022 10:07 AM CST Caller Name/Relationship to Patient: Patient Auth on file: Yes. Date of service: 05/11 Provider/RN Name: Dr. Hahn Reason for Call: Scheduling: Surgery Date Preferences: Patient has been waiting for any cancellations for surgery toget in sooner. She would like to be set up with a for sure date while also being on the list in case of any cancellations were to happen so she could get in earlier. How to contact back: Call: [phone] CIPAL ADMINISTRATIVE CLERK documented in this encounter Plan of Treatment Upcoming Encounters Date Type Department Care Team (Latest Contact Info) Description 05/29/2024 12:15 PM PRINCIPAL ADMINISTRATIVE CLERK Clinical Communication Virtual Review in [place], [place] [address] [place] [phone] 05/31/2024 11:00 AM PRINCIPAL ADMINISTRATIVE CLERK Appointment Department of Laboratory Medicine and Pathology, [facility], in [place], [place] [address] [place] [phone] Patricia Parker APRN, C.N.P., D.N.P. [address] [place] [phone] 05/31/2024 2:00 PM PRINCIPAL ADMINISTRATIVE CLERK Comprehensive Visit Preoperative Evaluation Center in [place], [place] [address] [place] [phone] Arianna Jeffries M.D. [address] [place] [phone] 05/31/2024 2:45 PM PRINCIPAL ADMINISTRATIVE CLERK Comprehensive Visit Preoperative Evaluation Center in [place], [place] [address] [place] [phone] Chris Moreno, JOHNSON, C.N.P., M.S. [address] [place] [phone] 06/03/2024 8:15 AM PRINCIPAL ADMINISTRATIVE CLERK Hospital Encounter Post Anesthesia Care Unit in [place], [place] [address] [place] [phone] Tahir Moore M.D. [address] [place] [phone] 06/03/2024 8:15 AM PRINCIPAL ADMINISTRATIVE CLERK - 06/03/2024 2:12 PM PRINCIPAL ADMINISTRATIVE CLERK Surgery [facility] MAIN OR [address] [place] [phone] Tahir Moore M.D. [address] [place] [phone] C1-2 fusion 07/02/2024 11:00 AM PRINCIPAL ADMINISTRATIVE CLERK Procedure visit Division of Pain Medicine in [place], [place] [address] [place] [phone] Adam Barlow M.D. [address] [place] [phone] Scheduled Procedures Name Priority Associated Diagnoses Date/Ti me 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 06/03/2024 8:15 AM PRINCIPAL ADMINISTRATIVE CLERK documented as of this encounter Visit Diagnoses Not on filedocumented in this encounter Care Teams Recording Clerk Relationship Specialty Start Date End Date Elsewhere, Pcp PCP - General Internal Medicine 05/10/22 documented as of this encounter
--- OUTSIDE RECORDS SUMMARY | 2024-05-21 14:11 | XMS_ITS | Encounter Summary ---
Author Organization 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 [address] [place] [address] Phone: tel: fax: [facility] Referral ID Status Reason Start Date Expiration Date Visits Re quested Visits Authorized [id number] Closed 04/12/2022 04/12/2023 1 1 Encounter Details Date Type Department Care Team (Latest Contact Info) Description 05/11/2022 6:34 AM RN CASE MGR - 05/11/2022 11:59 PM RN CASE MGR Hospital Encounter Department of Radiology, [facility], in [place], [place] [address] [place] [phone] Lopez Bo P.A.-C., M.S. 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 Discharge Disposition: Home or Self Care Social History Tobacco Use Types Packs/Day Years Used Date Smoking Tobacco: Former Cigarettes Q uit: 1973 Smokeless Tobacco: Never Nutrition Answer Date Recorded Nutrition: EVOO Fat Source Unknown 03/21 Nutrition: Servings of Fruits/Vegetables per Day Not on file 03/21/2022 Dental Answer Date Recorded Dental: Regular Dentist Unknown 03/21/20 Comments Unknown Sex and Gender Information Value Date Recorded Sex Assigned at Female 05/11/2022 7:48 AM RN CASE MGR Legal Sex Female 9:30 PM RN CASE MGR Gender Identity Female 05/11/2022 7:48 AM RN CASE MGR Sexual Orientation Straight 05/11/2022 7: 48 AM RN CASE MGR documented as of this encounter Medications at [...] by mouth every morning before breakfast. 04/25/2022 acetaminophen (TYLENOL 8 HR) 650 mg ER tablet Take 1,300 mg by mouth 3 (three) times a day. 05/24/2021 3 carvediloL (COREG) 6.25 mg tablet Take 12.5 mg by mouth 2 (two) times a day. 01/31/2022 4 cholecalciferol (VITAMIN D3) 25 mcg (1,000 Unit) capsule Take 1,000 Units by mouth daily. 05/10/2021 3 folic acid 1 mg tablet Take 1 mg by mouth daily. 05/24/2021 4 gabapentin (NEURONTIN) 300 mg capsule Take 300 mg by mouth 2 (two) times a day. 04/30/2022 4 lisinopriL (PRINIVIL,ZESTRI L) 5 mg tablet Take 5 mg by mouth 2 (two) times a day. 04/25/2022 4 rivaroxaban (XARELTO) 20 mg tablet Take 20 mg by mouth daily. 07/13/2021 3 spironolactone (ALDACTONE) 25 mg tablet Take 25 mg by mouth daily. 03/21/2022 3 triamcinolone (KENALOG) 0.1 % ointment Apply 1 Application topically as needed for irritation (bump on the back). 12/28/2020 4 documented as of this encounter Plan of Treatment Upcoming Encounters Date Type Department Care Team (Latest Contact Info) Description 05/29/2024 12:15 PM RN CASE MGR Clinical Communication Virtual Review in [address] [phone] 05/31/2024 11:00 AM RN CASE MGR Appointment Department of Laboratory Medicine and Pathology, [facility], in [address] [phone] Patricia Parker APRN, C.N.P., D.N.P. [address] [place] [phone] 05/31/2024 2:00 PM RN CASE MGR Comprehensive Visit Preoperative Evaluation Center in [place], [place] [address] [place] [phone] Arianna Jeffries M.D. [address] [place] [phone] 05/31/2024 2:45 PM RN CASE MGR Comprehensive Visit Preoperative Evaluation Center in [place], [place] [address] [place] [phone] Chris Moreno, JOHNSON, C.N.P., M.S. [address] [place] [phone] 06/03/2024 8:15 AM RN CASE MGR Hospital Encounter Post Anesthesia Care Unit in [place] [id number] [place] [phone] Tahir Moore M.D. [address] [place] [phone] 06/03/2024 8:15 AM RN CASE MGR - 06/03/2024 2:12 PM RN CASE MGR Surgery [facility] ROM[facility] MAIN OR [address] [place] [phone] Tahir Moore M.D. [address] [place] [address] [phone] C1-2 fusion 07/02/2024 11:00 AM RN CASE MGR Procedure visit Division of Pain Medicine in [place], [place] [address] [place] [phone] Adam Barlow M.D. 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 Narrative 05/11/2022 7:48 AM RN CASE MGR EXAM: DX LUMBAR SPINE 4+ VIEWS Procedure Note Kriss Raines M.D. - 05/11/2022 EXAM: DX LUMBAR SPINE 4+ VIEWS IMPRESSION: There are six lumbar type segments, presumably with lumbarization of S1 asthere were 12 rib-bearing vertebral bodies on prior chest radiograph. Moderatespondylotic changes throughout the lumbar spine with degenerative disk disease and facet arthritis. Diskspace narrowing is most advanced at L2-3. Grade I retrolisthesis of L2. Grade I anterolisthesis ofL4 and L5. No instability on flexion and extension. Degenerative arthritis both sacroiliac joints.Vascular calcifications. Lower abdominal and pelvic surgical clips. Disk space narrowing hasworsened compared to outside radiographs 10/15/2020. Lopez Bo P.A.-C., M.S. 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
--- OUTSIDE RECORDS SUMMARY | 2024-05-21 14:11 | XMS_ITS | Encounter Summary ---
Author Organization [facility] Address [address] [place] [address] Care Team Providers Care Slasher Name Role Phone Elsewhere, Pcp Primary Care Provider Unavailabl e Encounter Details Date Type Department Care Team (Latest Contact Info) Description 08/22/2022 11:07 AM CDT - 08/22/2022 11:59 PM CDT Hospital Encounter Department of Laboratory Medicine and Pathology, [facility] in [place], [place] [address] [place] [phone] Belgica Croft APRN, C.N.P., D.N.P. [address] [place] [phone] Preanesthetic Medical Exam; Anemia Discharge Disposition: Home or Self Care Social [...] How often do you attend chur or evangelical services? More than 4 times per year [...] and heating? Not hard at all 08/15/2022 [facility] [place] [facility] Occupat ional [facility] - Occupational Stress [...] Sex Assigned at Female 05/11/2022 7:48 AM PULMONOLOGY TECHNICIAN Legal Sex Female 9:30 PM PULMONOLOGY TECHNICIAN Gender Identity Female 05/11/2022 7:48 AM PULMONOLOGY TECHNICIAN Sexual Orientation Straight 05/11/2022 7: 48 AM PULMONOLOGY TECHNICIAN documented as of this encounter Medications [...] after surgery 60 tablet 1 3 acetaminophen (TYLENOL 8 HR) 650 mg ER tablet Take 1,300 mg by mouth 3 (three) times a day. 2 09/03/19 23 acetaminophen (TYLENOL) 500 mg tablet Take 2 [...] (8 ounces) of beverage. 3 01/04/20 23 rivaroxaban (XARELTO) 20 mg tablet Take 20 mg by mouth daily. 2 09/04/19 23 sennosides-docus ate sodium (SENOKOT-S) 8.6-50 mg [...] (Latest Contact Info) Description 05/29/2024 12:15 PM PULMONOLOGY TECHNICIAN Clinical Communication Virtual Review in [place], [place] 200 [place] [phone] 05/31/2024 11:00 AM PULMONOLOGY TECHNICIAN Appointment Department of Laboratory Medicine and Pathology, [facility], in [place], [place] [address] [place] [phone] Patricia Parker, JOHNSON, C.N.P., D.N.P. [address] [place] [phone] 05/31/2024 2:00 PM PULMONOLOGY TECHNICIAN Comprehensive Visit Preoperative Evaluation Center in [place], [place] [address] [place] [phone] Arianna Jeffries M.D. [address] [place] [phone] 05/31/2024 2:45 PM PULMONOLOGY TECHNICIAN Comprehensive Visit Preoperative Evaluation Center in [place], [place] [address] [place] [phone] Chris Moreno, SPRAY CEMENTER, C.N.P., M.S. [address] [place] [phone] 06/03/2024 8:15 AM PULMONOLOGY TECHNICIAN Hospital Encounter Post Anesthesia Care Unit in [place] [id number] [place] [phone] Tahir Moore M.D. [address] [place] [address] [phone] 06/03/2024 8:15 AM PULMONOLOGY TECHNICIAN - 06/03/2024 2:12 PM PULMONOLOGY TECHNICIAN Surgery [facility] ROM[facility] MAIN OR [address] [place] [phone] Tahir Moore M.D. [address] [place] [phone] C1-2 fusion 07/02/2024 11:00 AM PULMONOLOGY TECHNICIAN Procedure visit Division of Pain Medicine in [place], [place] [address] [place] [address] [phone] Adam Barlow M.D. [address] [place] [address] [phone] Scheduled Procedures Name Priority Associated Diagnoses Date/Ti me 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 06/03/2024 8:15 AM PULMONOLOGY TECHNICIAN documented as of this encounter Procedures Procedure Name Priority Date/Time Associated Diagnosis Comments RETICULOCYTE PROFILE, B Routine 08/22/2022 11:18 AM CDT CBC-PREOP WITH REFLEX ANEMIA PANEL Routine 08/22/2022 11:18 AM CDT Preanesthetic Medical Exam Anemia IRON AND TOT IRON-BINDING CAPACITY, S/P Routine 08/22/2022 11:18 AM CDT TYPE AND SCREEN Routine 08/22/2022 11:18 AM CDT Anemia C-REACTIVE PROTEIN (CRP), S/P Routine 08/22/2022 11:18 AM CDT FOLATE, S Routine 08/22/2022 11:18 AM CDT FERRITIN, S Routine 08/22/2022 11:18 AM CDT VITAMIN B12 ASSAY, S Routine 08/22/2022 11:18 AM CDT documented in this encounter Results * (ABNORMAL) Iron and Total Iron-Binding Capacity (08/22/2022 11:18 AM CDT) Iron 245(H) 35 - 145 mcg/dL 08/22/2022 12:11 PM CDT DTL Total Iron Binding Capacity 372 250 - 400 mcg/dL 08/22/2022 12:11 PM CDT DTL Percent Saturation 66(H) 14 - 50 % 08/22/2022 12:11 PM CDT DTL Blood 08/22/2022 11:1 8 AM CDT 08/22/2022 11:53 AM CDT us Belgica Croft APRN, C.N.P., D.N.P. LAB BLOOD ADD- ON Final Result [facility] [address] [place], [place] [address] 200 [place] [address] * Ferritin (08/22/2022 11:18 AM CDT) Pathologist [facility] Ferritin, S 68 11 - 307 mcg/L 08/22/2022 1:13 PM CDT DTL Blood 08/22/2022 11:1 8 AM CDT 08/22/2022 11:53 AM CDT Belgica Croft APRN, C.N.P., D.N.P. LAB BLOOD ADD- ON Final Result Performing Organization Address City/[facility]/ZIP Co de Phone Number [facility] 200 [place] [address] * (ABNORMAL) Reticulocyte Profile (08/22/2022 11:18 AM CDT) [facility] Reticulocytes, B 1.73 0.60 - 2.71 % 08/22/2022 12:16 PM CDT DTL Absolute Reticulocyte 53.8 30.4 - 110.9 x10(9)/L 08/22/2022 12:16 PM CDT DTL Immature Reticulocyte Fraction 6.8 3.0 - 15.9 % 08/22/2022 12:16 PM CDT DTL Reticulocyte Hemoglobin 36.0 30.0 - 37.6 pg 08/22/2022 12:16 PM CDT DTL Erythrocytes 3.13(L) 3.92 - 5.13 x10(12)/L 08/22/2022 11:46 AM CDT DTL Blood 08/22/2022 11:1 8 AM CDT 08/22/2022 11:40 AM CDT us Belgica Croft APRN, C.N.P., D.N.P. LAB BLOOD ADD- ON Final Result [address] [facility] [address] [place] [address] * Folate (08/22/2022 11:18 AM CDT) [facility] Folate, S 17.2 >=4.0 mcg/L 08/22/2022 1: 16 PM CDT DT Blood 08/22/2022 11:1 8 AM CDT 08/22/2022 11:53 AM CDT Belgica Croft APRN, C.N.P., D.N.P. LAB BLOOD ADD- ON Final Result [facility] [address] [place], [place] [phone] [place] [address] [facility] 200 [place] [address] * Vitamin B12 Assay (08/22/2022 11:18 AM CDT) [facility] Vitamin B12 Assay, S 554 180 - 914 ng/L 08/22/2022 1:17 PM CDT DT Comment: ----ADDITIONAL INFORMATION---- In patients being evaluated for vitamin B12 deficiency who have intrinsic factor blocking antibodies (IFBA), false elevations of B12 may occur due to IFBA interference thus potentially obscuring a physiological deficiency of B12. If observed B12 concentrations are discordant with clinical presentation, measurement of methylmalonic acid (MMA) should be considered. Blood 08/22/2022 11:1 8 AM CDT 08/22/2022 11:53 AM CDT Belgica Croft APRN, C.N.P., D.N.P. LAB BLOOD ADD- ON Final Result [facility] [address] [place], [place] [phone] [place] [address] 200 [place] [address] * CRP (C-Reactive Protein) (08/22/2022 11:18 AM CDT) [facility] C-Reactive Protein (CRP), S <3.0 <5.0 mg/L 08/22/2022 12:11 PM CDT DTL Blood 08/22/2022 11:1 8 AM CDT 08/22/2022 11:53 AM CDT Belgica Croft APRN, C.N.P., D.N.P. LAB BLOOD ADD- ON Final Result Performing Organization Address City/[facility]/ZIP Co de Phone Number [facility] [address] [place] [address], [facility] [address] [place] [address] * Type and Screen (with reflex Antibody ID) (08/22/2022 11:18 AM CDT) [facility] ABORh A Pos Not applicable 08/22/2022 3:55 PM CDT ETRM Antibody Screen Negative Negative 08/22/2022 4:00 PM CDT ETRM Type & Screen Expiration 10/20/2022 23:59 08/22/2022 3:55 PM CDT ETRM Testing Location [place] DEFAULT 08/22/2022 12:04 PM CDT ETRM Blood (Blood, Venous) 08/22/2022 11:18 AM CDT 08/22/2022 12:04 PM CDT Belgica Croft APRN, C.N.P., D.N.P. LAB BLOOD BANK TEST ORDERABLES Final Result Performing Organization Address [facility]/ZIP Co de Phone Number [facility] [address] [place] [address], [facility] ETRM [facility] [address] [place] [address] * (ABNORMAL) CBC-Preop with reflex anemia panel (08/22/2022 11:18 AM CDT) [facility] Hemoglobin 10.4(L) 11.6 - 15.0 g/dL 08/22/2022 [...] (Blood, Venous) 08/22/2022 11:18 AM CDT Narrative [facility] - 08/22/2022 11:46 AM CDT Specimen Information: Specimen ID: [id number] Specimen Type: Blood Specimen Collection Start Date: 08/22/2022 11:18 AM Specimen ID: [id number] Specimen Type: Blood Specimen Collection Start Date: 08/22/2022 11:18 AM Specimen Received Date: 08/22/2022 11:40 AM Specimen ID: [id number] Specimen Type: Blood Specimen Collection Start Date: 08/22/2022 11:18 AM Belgica Croft APRN, C.N.P., D.N.P. LAB BLOOD ADD- ON Final Result [facility] [address] [place] [address], [facility] [address] [place] [address] documented in this encounter Visit Diagnoses Diagnosis Preanesthetic Medical Exam Anemia Stenosis Spinal documented in this encounter Care Teams Slasher Relationship Specialty Start Date End Date Elsewhere, Pcp PCP - General Internal Medicine 05/10/22 documented as of this encounter
--- OUTSIDE RECORDS SUMMARY | 2024-05-21 14:11 | XMS_ITS | Encounter Summary ---
Author Organization [facility] Address [address] [place] [address] Care Team Providers Care Brand Marketing Intern Name Role Phone Elsewhere, Pcp Primary Care Provider Unavailabl e Encounter Details Date Type Department Care Team (Late st Contact Info) Description 07/19/2022 Clinical Communication Department of Neurologic Surgery in [place], [place] [address] [place] [phone] Stu Hahn M.D., M.B.A. Social History Tobacco [...] Sex Assigned at Female 05/11/2022 7:48 AM TUBE AND ROD STRAIGHTENER Legal Sex Female 9:30 PM TUBE AND ROD STRAIGHTENER Gender Identity Female 05/11/2022 7:48 AM TUBE AND ROD STRAIGHTENER Sexual Orientation Straight 05/11/2022 7: 48 AM TUBE AND ROD STRAIGHTENER documented as of this encounter Miscellaneous Notes * Telephone Encounter - Reinier Gibson R.N. - 07/21/2022 5:20 PM TUBE AND ROD STRAIGHTENER Information Discussed I returned Gladys's call today. She tells me that while waiting for surgery, she has been doing physical therapy, seeing a chiropractor, and getting massages regularly. While this has helped her to become stronger, her pain is still unfortunately very high. She tells me that it is still very painful to walk. Gladys would like to move her surgical date up. PLAN Disposition/Recommendation: recommended continue engagement in self-management activities Information/Education: patient/caller able to teach back Caller agreeable to plan of care: yes The following references were used: nursing clinical judgement AND ROD STRAIGHTENER documented in this encounter Plan of Treatment Upcoming Encounters Date Type Department Care Team (Latest Contact Info) Description 05/29/2024 12:15 PM TUBE AND ROD STRAIGHTENER Clinical Communication Virtual Review in [address] [phone] 05/31/2024 11:00 AM TUBE AND ROD STRAIGHTENER Appointment Department of Laboratory Medicine and Pathology, [facility], in [address] [phone] Patricia Parker APRN, C.N.P., D.N.P. [address] [place] [phone] 05/31/2024 2:00 PM TUBE AND ROD STRAIGHTENER Comprehensive Visit Preoperative Evaluation Center in [address] [phone] Arianna Jeffries M.D. [address] [place] [phone] 05/31/2024 2:45 PM TUBE AND ROD STRAIGHTENER Comprehensive Visit Preoperative Evaluation Center in [address] [phone] Chris Moreno APRN, C.N.P., M.S. [address] [place] [phone] 06/03/2024 8:15 AM TUBE AND ROD STRAIGHTENER Hospital Encounter Post Anesthesia Care Unit in [place], [place] [address] [place] [phone] Tahir Moore M.D. [address] [place] [phone] 06/03/2024 8:15 AM TUBE AND ROD STRAIGHTENER - 06/03/2024 2:12 PM TUBE AND ROD STRAIGHTENER Surgery [facility]ST ROM[facility] MAIN OR [address] [place] [phone] Tahir Moore M.D. [address] [place] [phone] C1-2 fusion 07/02/2024 11:00 AM TUBE AND ROD STRAIGHTENER Procedure visit Division of Pain Medicine in [place], [place] [address] [place] [phone] Adam Barlow M.D. [address] [place] [phone] Scheduled Procedures Name Priority Associated Diagnoses Date/Ti me DECOMPRESSION POSTERIOR CERVICAL WITH FUSION Stenosis Spinal 06/03/2024 8:15 AM TUBE AND ROD STRAIGHTENER documented as of this encounter Visit Diagnoses Not on filedocumented in this encounter Care Teams Brand Marketing Intern Relationship Specialty Start Date End Date Elsewhere, Pcp PCP - General Internal Medicine 05/10/22 documented as of this encounter
--- OUTSIDE RECORDS SUMMARY | 2024-05-21 14:11 | XMS_ITS | Encounter Summary ---
Author Organization [facility] Address [address] [place] [address] Care Team Providers Care Numerical Control Machine Tool Operator Name Role Phone Elsewhere, Pcp Primary Care Provider Unavailabl e Reason for Visit * Reason Comments Pre-visit Intake Encounter Details Date Type Department Care Team (Latest Contact Info) Description 05/10/2022 11:15 AM STRIPPER AND PRINTER Clinical Communication Virtual Review in [address] [phone] Pre-visit Intake Social History Tobacco Use Types Packs/Day Years Used Date Smoking Tobacco: Former Cigarettes Q uit: 1973 Smokeless Tobacco: Never Tobacco Cessation:Counseling Given: Not Answered Nutrition Answer Date Recorded Nutrition: EVOO Fat Source Unknown 03/21 Nutrition: Servings of Fruits/Vegetables per Day Not on file 03/21/2022 Dental Answer Date Recorded Dental: Regular Dentist Unknown 03/21/20 22 Comments Unknown Sex and Gender Information Value Date Recorded Sex Assigned at Female 05/11/2022 7:48 AM STRIPPER AND PRINTER Legal Sex Female 9:30 PM STRIPPER AND PRINTER Gender Identity Female 05/11/2022 7:48 AM STRIPPER AND PRINTER Sexual Orientation Straight 05/11/2022 7: 48 AM STRIPPER AND PRINTER documented as of this encounter Plan of Treatment Upcoming Encounters Date Type Department Care Team (Latest Contact Info) Description 05/29/2024 12:15 PM STRIPPER AND PRINTER Clinical Communication Virtual Review in [place], [place] 200 [place] [phone] 05/31/2024 11:00 AM STRIPPER AND PRINTER Appointment Department of Laboratory Medicine and Pathology, [facility], in [place], [place] [address] [place] [phone] Patricia Parker APRN, C.N.P., D.N.P. [address] [place] [phone] 05/31/2024 2:00 PM STRIPPER AND PRINTER Comprehensive Visit Preoperative Evaluation Center in [place], [place] [address] [place] [phone] Arianna Jeffries M.D. [address] [place] [phone] 05/31/2024 2:45 PM STRIPPER AND PRINTER Comprehensive Visit Preoperative Evaluation Center in [address] [phone] Chris Moreno APRN, C.N.P., M.S. [address] [place] [phone] 06/03/2024 8:15 AM STRIPPER AND PRINTER Hospital Encounter Post Anesthesia Care Unit in [address] [phone] Tahir Moore M.D. [address] [place] [phone] 06/03/2024 8:15 AM STRIPPER AND PRINTER - 06/03/2024 2:12 PM STRIPPER AND PRINTER Surgery RST ROMB MAIN OR [address] [place] [phone] Tahir Moore M.D. [address] [place] [phone] C1-2 fusion 07/02/2024 11:00 AM STRIPPER AND PRINTER Procedure visit Division of Pain Medicine in [place], [place] [address] [place] [phone] Adam Barlow M.D. [address] [place] [address] Scheduled Procedures Name Priority Associated Diagnoses Date/Ti me 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 06/03/2024 8:15 AM STRIPPER AND PRINTER documented as of this encounter Visit Diagnoses Not on filedocumented in this encounter Care Teams Numerical Control Machine Tool Operator Relationship Specialty Start Date End Date Elsewhere, Pcp PCP - General Internal Medicine 05/10/22 documented as of this encounter
--- OUTSIDE RECORDS SUMMARY | 2024-05-21 14:11 | XMS_ITS | Encounter Summary ---
Author Organization [facility] Address [address] [place] [address] Care Team Providers Care Outside Machinist Apprentice Name Role Phone Elsewhere, Pcp Primary Care Provider Unavailabl e Encounter Details Date Type Department Care Team (Late st Contact Info) Description 06/15/2022 Clinical Communication Department of Neurologic Surgery in [place], [place] [address] [place] [phone] Stu Hahn M.D., M.B.A. Social History Tobacco [...] Assigned at Female 05/11/2022 7:48 AM LOCK FITTER Legal Sex Female 9:30 PM LOCK FITTER Gender Identity Female 05/11/2022 7:48 AM LOCK FITTER Sexual Orientation Straight 05/11/2022 7: 48 AM LOCK FITTER documented as of this encounter Miscellaneous Notes * Telephone Encounter - Reinier Gibson R.N. - 06/16/2022 10:50 AM LOCK FITTER Information Discussed I called Gladys to follow up on the pain that she is experiencing. She states that the pain is debilitating. She has tried going to the chiropractor for pain relief and she states that sometimes it helps and sometimes it doesn't. I recommended she use tylenol, massage therapy, water therapy or a hot tub, topical creams, or a lidocaine patch. She is requesting an earlier date for surgery, I informed her that I would call if I got an earlierdate available for her. PLAN Disposition/Recommendation: recommended continue engagement in self-management activities Information/Education: patient/caller able to teach back Caller agreeable to plan of care: yes The following references were used: nursing clinical judgement FITTER * Telephone Encounter - Autumn Donaldson - 06/15/2022 2:35 PM CST Caller Name/Relationship to Patient: PATIENT Provider/RN Name: Dr. Hahn Reason for Call: Additional Requests: Patient is scheduled for surgery in August. Her pain has become debilitating. Patient would like to discuss recommendations with the nurse How to contact back: Call: [phone] FITTER documented in this encounter Plan of Treatment Upcoming Encounters Date Type Department Care Team (Latest Contact Info) Description 05/29/2024 12:15 PM LOCK FITTER Clinical Communication Virtual Review in [place], [place] 200 [place] [phone] 05/31/2024 11:00 AM LOCK FITTER Appointment Department of Laboratory Medicine and Pathology, [facility], in [address] [phone] Patricia Parker, JOHNSON, C.N.P., D.N.P. [address] [place] [phone] 05/31/2024 2:00 PM LOCK FITTER Comprehensive Visit Preoperative Evaluation Center in [address] [phone] Arianna Jeffries M.D. [address] [place] [phone] 05/31/2024 2:45 PM LOCK FITTER Comprehensive Visit Preoperative Evaluation Center in [place], [place] [address] [place] [phone] Chris Moreno, JOHNSON, C.N.P., M.S. [address] [place] [phone] 06/03/2024 8:15 AM LOCK FITTER Hospital Encounter Post Anesthesia Care Unit in [place], [place] [address] [place] [phone] Tahir Moore M.D. [address] [place] [phone] 06/03/2024 8:15 AM LOCK FITTER - 06/03/2024 2:12 PM LOCK FITTER Surgery [facility]ST ROMB MAIN OR [address] [place] [phone] Tahir Moore M.D. [address] [place] [phone] C1-2 fusion 07/02/2024 11:00 AM LOCK FITTER Procedure visit Division of Pain Medicine in [place], [place] [address] [place] [phone] Adam Barlow M.D. 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
--- OUTSIDE RECORDS SUMMARY | 2024-05-21 14:11 | XMS_ITS | Encounter Summary ---
Author Organization [facility] Address [address] [place] [address] Care Team Providers Care Union Representative Name Role Phone Elsewhere, Pcp Primary Care Provider Unavailabl e Encounter Details Date Type Department Care Team (Late st Contact Info) Description 05/12/2022 Clinical Communication Department of Neurologic Surgery in [place], [place] [address] [place] [phone] Stu Hahn M.D., M.B.A. Social History Tobacco [...] Assigned at Female 05/11/2022 7:48 AM RN OBGYN Legal Sex Female 9:30 PM RN OBGYN Gender Identity Female 05/11/2022 7:48 AM RN OBGYN Sexual Orientation Straight 05/11/2022 7: 48 AM RN OBGYN documented as of this encounter Miscellaneous Notes * Telephone Encounter - Olena Lawrence - 05/12/2022 11:16 AM CST Caller Name/Relationship to Patient: Patient Auth on file: Yes. Date of service: 05/11 Provider/RN Name: Dr. Hahn Reason for Call: Request to complete imaging/services locally: What imaging/services requestin orders, DX entirespine, CT L-spine, BMD, and she also said blood work as well Facility Name and Fax: [facility] Dr. Rodriguez How to contact back: Portal patient when the orders are okay to be faxed over to PCP OBGYN documented in this encounter Plan of Treatment Upcoming Encounters Date Type Department Care Team (Latest Contact Info) Description 05/29/2024 12:15 PM RN OBGYN Clinical Communication Virtual Review in [address] [phone] 05/31/2024 11:00 AM RN OBGYN Appointment Department of Laboratory Medicine and Pathology, [facility], in [address] [phone] Patricia Parker APRN, C.N.P., D.N.P. [address] [place] [phone] 05/31/2024 2:00 PM RN OBGYN Comprehensive Visit Preoperative Evaluation Center in [address] [phone] Arianna Jeffries M.D. [address] [place] [phone] 05/31/2024 2:45 PM RN OBGYN Comprehensive Visit Preoperative Evaluation Center in [address] [phone] Chris Moreno APRN, C.N.P., M.S. [address] [place] [phone] 06/03/2024 8:15 AM RN OBGYN Hospital Encounter Post Anesthesia Care Unit in [address] [place] [phone] Tahir Moore M.D. [address] [place] [address] [phone] 06/03/2024 8:15 AM RN OBGYN - 06/03/2024 2:12 PM RN OBGYN Surgery [facility]ST ROMB MAIN OR [address] [place] [phone] Tahir Moore M.D. [address] [place] [phone] C1-2 fusion 07/02/2024 11:00 AM RN OBGYN Procedure visit Division of Pain Medicine in [place], [place] [address] [place] [phone] Adam Barlow M.D. [address] [place] [phone] Scheduled Procedures Name Priority Associated Diagnoses Date/Ti me 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 06/03/2024 8:15 AM RN OBGYN documented as of this encounter Visit Diagnoses Not on filedocumented in this encounter Care Teams Union Representative Relationship Specialty Start Date End Date Elsewhere, Pcp PCP - General Internal Medicine 05/10/22 documented as of this encounter
--- OUTSIDE RECORDS SUMMARY | 2024-05-21 14:11 | XMS_ITS | Encounter Summary ---
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 [address] [place] [phone] Phone: tel: fax: [facility] Referral ID Status Reason Start Date Expiration Date Visits Re quested Visits Authorized [id number] Closed 04/12/2022 04/12/2023 1 1 T WRITER Encounter Details Date Type Department Care Team (Late st Contact Info) Description 04/12/2022 Orders Only Department of Orthopedic Surgery in [place], [place] [address] [place] [phone] Lopez Bo P.A.-C., M.S. 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) Social History Tobacco Use Types Packs/Day Years Used Date Smoking Tobacco: Never Assessed Nutrition Answer Date Recorded Nutrition: EVOO Fat Source Unknown 03/21 Nutrition: Servings of Fruits/Vegetables per Day Not on file 03/21/2022 Dental Answer Date Recorded Dental: Regular Dentist Unknown 03/21/20 22 Comments Unknown Sex and Gender Information Value Date Recorded Sex Assigned at Female 05/11/2022 7:48 AM GRANT WRITER Legal Sex Female 9:30 PM GRANT WRITER Gender Identity Female 05/11/2022 7:48 AM GRANT WRITER Sexual Orientation Straight 05/11/2022 7: 48 AM GRANT WRITER documented as of this encounter Plan of Treatment Upcoming Encounters Date Type Department Care Team (Latest Contact Info) Description 05/29/2024 12:15 PM GRANT WRITER Clinical Communication Virtual Review in [place], [place] 200 [place] [phone] 05/31/2024 11:00 AM GRANT WRITER Appointment Department of Laboratory Medicine and Pathology, [facility] in [address] [phone] Patricia Parker APRN, C.N.P., D.N.P. [address] [place] [phone] 05/31/2024 2:00 PM GRANT WRITER Comprehensive Visit Preoperative Evaluation Center in [place], [place] [address] [place] [phone] Arianna Jeffries M.D. [address] [place] [phone] 05/31/2024 2:45 PM GRANT WRITER Comprehensive Visit Preoperative Evaluation Center in [address] [phone] Chris Moreno APRN, C.N.P., M.S. [address] [place] [phone] 06/03/2024 8:15 AM GRANT WRITER Hospital Encounter Post Anesthesia Care Unit in [place], [place] [address] [place] [phone] Tahir Moore M.D. [address] [place] [phone] 06/03/2024 8:15 AM GRANT WRITER - 06/03/2024 2:12 PM GRANT WRITER Surgery [facility]ST ROMB MAIN OR [address] [place] [phone] Tahir Moore M.D. [address] [place] [phone] C1-2 fusion 07/02/2024 11:00 AM GRANT WRITER Procedure visit Division of Pain Medicine in [place], [place] [address] [place] [phone] Adam Barlow M.D. [address] [place] [phone] Scheduled Procedures Name Priority Associated Diagnoses Date/Ti me 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 06/03/2024 8:15 AM GRANT WRITER documented as of this encounter Results * DX Lumbar Spine 4+ Views (05/11/2022 7:06 AM GRANT WRITER) Anatomical Region Laterality Modality Lumbar Spine, Musculoskeleta l RST LOS, Neuroradiology ARZ LOS, Muskuloskeletal FLA LOS N/A Digital Radiography 05/11/2022 7:43 AM GRANT WRITER Impressions 05/11/2022 7:48 AM GRANT WRITER There are six lumbar type segments, presumably [...] outside radiographs 10/15/2020. 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
--- OUTSIDE RECORDS SUMMARY | 2024-05-21 14:11 | XMS_ITS | Encounter Summary ---
Author Organization [facility] Address [address] [place] [address] Care Team Providers Care Inspector Coated Fabrics Name Role Phone Elsewhere, Pcp Primary Care Provider Unavailabl e Reason for Visit * Reason Onset Date Comments Pre-visit Intake 08/18/2022 Encounter Details Date Type Department Care Team (Latest Contact Info) Description 08/18/2022 4:00 PM CDT Clinical Communication Virtual Review in [place], [place] 200 [place] [phone] Pre-visit Intake Social History Tobacco Use Types [...] How often do you attend chur or mormon services? More than 4 times [...] and heating? Not hard at all 08/15/2022 [facility] - Occupational [...] place to sleep or slept in a long-term (including now)? No 08/15/2022 Nutrition Answer Date [...] Assigned at Female 05/11/2022 7:48 AM MEDICAL SUPPLY TECHNICIAN Legal Sex Female 9:30 PM MEDICAL SUPPLY TECHNICIAN Gender Identity Female 05/11/2022 7:48 AM MEDICAL SUPPLY TECHNICIAN Sexual Orientation Straight 05/11/2022 7: 48 AM MEDICAL SUPPLY TECHNICIAN documented as of this encounter Plan of Treatment Upcoming Encounters Date Type Department Care Team (Latest Contact Info) Description 05/29/2024 12:15 PM MEDICAL SUPPLY TECHNICIAN Clinical Communication Virtual Review in [address] [phone] 05/31/2024 11:00 AM MEDICAL SUPPLY TECHNICIAN Appointment Department of Laboratory Medicine and Pathology, [facility] in [place], [place] [address] [place] [phone] Patricia Parker APRN, C.N.P., D.N.P. [address] [place] [phone] 05/31/2024 2:00 PM MEDICAL SUPPLY TECHNICIAN Comprehensive Visit Preoperative Evaluation Center in [place], [place] [address] [place] [phone] Arianna Jeffries M.D. [address] [place] [phone] 05/31/2024 2:45 PM MEDICAL SUPPLY TECHNICIAN Comprehensive Visit Preoperative Evaluation Center in [place], [place] [address] [place] [phone] Chris Moreno APRN, C.N.P., M.S. [address] [place] [phone] 06/03/2024 8:15 AM MEDICAL SUPPLY TECHNICIAN Hospital Encounter Post Anesthesia Care Unit in [place] [phone] [place] [phone] Tahir Moore M.D. [address] [place] [phone] 06/03/2024 8:15 AM MEDICAL SUPPLY TECHNICIAN - 06/03/2024 2:12 PM MEDICAL SUPPLY TECHNICIAN Surgery RST ROMB MAIN OR [address] [place] [phone] Tahir Moore M.D. [address] [place] [phone] C1-2 fusion 07/02/2024 11:00 AM MEDICAL SUPPLY TECHNICIAN Procedure visit Division of Pain Medicine in [place], [place] [address] [place] [phone] Adam Barlow M.D. [address] [place] [phone] Scheduled Procedures Name Priority Associated Diagnoses Date/Ti me 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 06/03/2024 8:15 AM MEDICAL SUPPLY TECHNICIAN documented as of this encounter Visit Diagnoses Not on filedocumented in this encounter Care Teams Inspector Coated Fabrics Relationship Specialty Start Date End Date Elsewhere, Pcp PCP - General Internal Medicine 05/10/22 documented as of this encounter
--- OUTSIDE RECORDS SUMMARY | 2024-05-21 14:12 | XMS_ITS | Encounter Summary ---
Author Organization [facility] Address [address] [place] [address] Care Team Providers Care Letterpress Printing Machinist Name Role Phone Unavailable Primary Care Provider Unavailabl e Reason for Visit * Reason Comments Pre-scheduling Questionnaire Encounter Details Date Type Department Care Team (Latest Contact Info) Description 03/28/2022 Clinical Communication Department of Spine in [place], [place] [address] [place] [phone] Prescheduling, Provider Pre-scheduling Questionnaire Social History Tobacco Use Types Packs/Day Years Used Date Smoking Tobacco: Never Assessed Nutrition Answer Date Recorded Nutrition: EVOO Fat Source Unknown 03/21 Nutrition: Servings of Fruits/Vegetables per Day Not on file 03/21/2022 Dental Answer Date Recorded Dental: Regular Dentist Unknown 03/21/20 22 Comments Unknown Sex and Gender Information Value Date Recorded Sex Assigned at Female 05/11/2022 7:48 AM EYELET OPERATOR Legal Sex Female 9:30 PM EYELET OPERATOR Gender Identity Female 05/11/2022 7:48 AM EYELET OPERATOR Sexual Orientation Straight 05/11/2022 7: 48 AM EYELET OPERATOR documented as of this encounter Miscellaneous Notes * Telephone Encounter - Akbar Pandya - 03/28/2022 7:54 AM CST [facility] Question Set ET OPERATOR documented in this encounter Plan of Treatment Upcoming Encounters Date Type Department Care Team (Latest Contact Info) Description 05/29/2024 12:15 PM EYELET OPERATOR Clinical Communication Virtual Review in [place], [place] [address] [place] [phone] 05/31/2024 11:00 AM EYELET OPERATOR Appointment Department of Laboratory Medicine and Pathology, [facility], in [place], [place] [address] [place] [phone] Patricia Parker APRN, C.N.P., D.N.P. [address] [place] [phone] 05/31/2024 2:00 PM EYELET OPERATOR Comprehensive Visit Preoperative Evaluation Center in [place], [place] [address] [place] [phone] Arianna Jeffries M.D. [address] [place] [phone] 05/31/2024 2:45 PM EYELET OPERATOR Comprehensive Visit Preoperative Evaluation Center in [place], [place] [address] [place] [phone] Chris Moreno, JOHNSON, C.N.P., M.S. [address] [place] [phone] 06/03/2024 8:15 AM EYELET OPERATOR Hospital Encounter Post Anesthesia Care Unit in [place] [id number] [place] [phone] Tahir Moore M.D. [address] [place] [phone] 06/03/2024 8:15 AM EYELET OPERATOR - 06/03/2024 2:12 PM EYELET OPERATOR Surgery [facility] MAIN OR [address] [place] [phone] Tahir Moore M.D. [address] [place] [phone] C1-2 fusion 07/02/2024 11:00 AM EYELET OPERATOR Procedure visit Division of Pain Medicine in [place], [place] [address] [place] [phone] Adam Barlow M.D. [address] [place] [phone] Scheduled Procedures Name Priority Associated Diagnoses Date/Ti me 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 06/03/2024 8:15 AM EYELET OPERATOR documented as of this encounter Visit Diagnoses Not on filedocumented in this encounter
== END 2024-11-16 23:59 | disposition home or self-care (01) ==
PROVIDERS: PCP Family Medicine; Visit Provider Family Medicine
DX: I89.0 Lymphedema, not elsewhere classified (principal); R10.32 Left lower quadrant pain; M70.61 Trochanteric bursitis, right hip; M25.551 Pain in right hip; Z98.1 Arthrodesis status; M76.01 Gluteal tendinitis, right hip; R60.0 Localized edema; Z51.89 Encounter for other specified aftercare
CPT/HCPCS: 97012; 97110; 97112; 97140; 97163; 97165; 97530; 97535; 97542